=== PATIENT | female | born 1960 | race American Indian/Alaskan Native ===

== ENCOUNTER 2018-02-09 19:25 | Emergency (ER) | payer MEDICARE, OTHER ==
[~2018-02-09] VITALS: Ht 162.6 cm; Wt 99.8 kg
--- OUTSIDE RECORDS SUMMARY | ~2018-02-09 | XMS | Clinical Summary ---
Demographics + + + | Address | [address] | | | [place] [address] | + + + | Home Phone | | + + + | Preferred Language | Unknown | + + + | Marital Status | | + + + | Cheondoism Affiliation | Unknown | + + + | Race | Unknown | + + + | Ethnic Group | Unknown | + + + Author + + + | Author | [facility] | | | and [place] | + + + | Organization | [facility] | | | and [place] | + + + | Address | Unknown | + + + | Phone | Unavailable | + + + Support + + + + + | Name | Relationship | Address | Phone | + + + + + | Yue Fischer | ECON | [address] | | | | | [place], [place] | | | | | [address] | | + + + + + | Greta Herrera | ECON | [place], [place] | | | | | [address] | | + + + + + Care Team Providers + +------+ + | Care Aquaculture Program Director Name | Role | Phone | + +------+ + | Clay Ly DO | PP | | + +------+ + Allergies + + + + + + | Active Allergy | Reactions | Severity | Noted | Comments | | | | | Date | | + + + + + + | Uncoded | | | 12/22/19 | Metal | | Nonscreenable | | | 14 | | | Allergen | | | | | + + + + + + | Vancomycin | | | 03/25/20 | Was life flighted | | | | | 12 | after taking this | + + + + + + Current Medications + + +--------+---------+------+------+-------+ | Prescription | Sig. | Disp. | Refills | Star | End | Statu | | | | | | t | Date | s | | | | | | Date | | | + + +--------+---------+------+------+-------+ | | Inhale 2 puffs into | | | | | Activ | | mometasone-formotero | the lungs as needed. | | | | | e | | l (DULERA) 100-5 | | | | | | | | mcg/puff inhaler | | | | | | | + + +--------+---------+------+------+-------+ | | Take 2 tablets by | 100 | 0 | 10/1 | | Activ | | HYDROcodone-acetamin | mouth every 6 hours | tablet | | 2/20 | | e | | ophen (NORCO) 5-325 | as needed. | | | 15 | | | | mg per | | | | | | | | tabletIndications: | | | | | | | | Burkitt's lymphoma | | | | | | | | (HCC) | | | | | | | + + +--------+---------+------+------+-------+ | ondansetron | Take 1 tablet by | 15 | 0 | 02/2 | | Activ | | (ZOFRAN ODT) 4 mg | mouth every 6 hours | tablet | | 3/20 | | e | | disintegrating | as needed for | | | 16 | | | | tablet | Nausea. | | | | | | + + +--------+---------+------+------+-------+ Active Problems + + + | Problem | Noted Date | + + + | Neoplasm related pain (acute) (chronic) | 03/15/2014 | + + + + + | Overview: Ongoing discomfort related to cancer and cancer | | treatmentICD-10 Record update Last Assessment & Plan: Refilled | | hydrocodone continue as needed | + + + + + | GERD (gastroesophageal reflux disease) | 03/15/2014 | + + + + + | Overview: Gastroesophageal reflux disease likely related to | | medical obesity Last Assessment & Plan: Continue omeprazole | + + + + + | Chronic diarrhea | 03/15/2014 | + + + + + | Overview: Chronic diarrhea since diagnosis of Burkitt's | | lymphoma Last Assessment & Plan: Symptoms have become worse. | | Refill on Lomotil. Refer to Dr. Aranda for colonoscopy to exclude | | a gastrointestinal recurrence of Burkitt's lymphoma | + + + + + | DYSFUNCTION OF EUSTACHIAN TUBE | 03/07/2012 | + + + | SENSORINEURAL HEARING LOSS BILATERAL | 03/07/2012 | + + + | Burkitt's lymphoma (HCC) | | + + + + + | Overview: Burkitt's Lymphoma, August 2011 | | Last Assessment & Plan: No signs or symptoms of recurrence | | Continue with observation | | Return to clinic in 6 months for clinical and laboratory followup | + + + +---+ | Nonischemic/ chemotherapy induced cardiomyopathy | | + +---+ + + | Overview: Echo 03/08/12, LVEF 50%Normal SPECT MPI 03/18/12, | | LVEF 50% Last Assessment & Plan: No signs or symptoms of | | worsening of congestive heart failure, potentially treatment let | | relatedContinue lisinopril. | + + Resolved Problems + + + + | Problem | Noted | Resolved | | | Date | Date | + + + + | Chest pain | 03/25/20 | | | | 12 | 4 | + + + + + + | Overview: Nuclear stress test 03/17/12, LVEF 50% | + + Immunizations + + + + | Name | Dates Previously Given | Next Due | + + + + | PNEUMOCOCCAL | 11/01/2010 | | | POLYSACCHARIDE | | | | 23-VALENT (PPSV23) | | | + + + + Family History + + +------+ + | Medical History | Relation | Name | Comments | + + +------+ + | Other (see comment) | Brother | | x3 with heart problems | + + +------+ + | Other (see comment) | Father | | age 71 AMI | + + +------+ + | Other (see comment) | Mother | | Alive age 83 some health problems | + + +------+ + | Other (see comment) | Sister | | with heart problem | + + +------+ + + +------+ + + | Relation | Name | Status | Comments | + +------+ + + | Brother | | Alive | | + +------+ + + | Brother | | Alive | | + +------+ + + | Brother | | Alive | | + +------+ + + | Brother | | | | + +------+ + + | Father | | | | | | | (Age | | | | | 71) | | + +------+ + + | Mother | | | some health problems | + +------+ + + | Sister | | | | + +------+ + + | Sister | | Alive | | + +------+ + + | Sister | | Alive | | + +------+ + + | Sister | | Alive | | + +------+ + + Social History + +-------+ +--------+ + | Tobacco Use | Types | Packs/Day | Years | Date | | | | | Used | | + +-------+ +--------+ + | Former Smoker | | | | Quit: 10/01/2011 | + +-------+ +--------+ + + +---+---+---+ | Smokeless Tobacco: | | | | | Never Used | | | | + +---+---+---+ + + | Tobacco Cessation: Ready to Quit: No; Counseling Given: Yes | + + + + +---------+ + | Alcohol Use | Drinks/We | oz/Week | Comments | | | ek | | | + + +---------+ + | No | | | | + + +---------+ + + + + | Sex Assigned at | Date Recorded | | | | + + + | Not on file | | + + + Last Filed Vital Signs + + + + | Vital Sign | Reading | Time Taken | + + + + | Blood Pressure | 113/73 | 12/24/20157 PST | + + + + | Pulse | 105 | 12/24/201548 PST | + + + + | Temperature | 38.4 C (101.1 F) | 12/24/2015422 PST | + + + + | Respiratory Rate | 20 | 12/24/2015647 PST | + + + + | Oxygen Saturation | 96% | 12/24/2015647 PST | + + + + | Inhaled Oxygen | - | - | | Concentration | | | + + + + | Weight | 90.7 kg (200 lb) | 12/24/2015422 PST | + + + + | Height | 162.6 cm (5' 4.02") | 12/24/2015422 PST | + + + + | Body Mass Index | 34.31 | 12/24/2015 0423 PST | + + + + Plan of Treatment + + + + + | Health Maintenance | Due Date | Last Done | Comments | + + + + + | Hepatitis C | | | | | Screening | 0 | | | + + + + + | Vaccine: | | | | | Dtap/Tdap/Td (1 - | 9 | | | | Tdap) | | | | + + + + + | CERVICAL CANCER | | | | | SCREENING (PAP EVERY | 1 | | | | 3 YEARS 21-64 ) | | | | + + + + + | BREAST CANCER | | | | | SCREENING (MAMM Q2 | 0 | | | | YEARS 50-74) | | | | + + + + + | COLON CANCER | | | | | SCREENING | 0 | | | | (COLONOSCOPY EVERY | | | | | 10 YEARS 50-75) | | | | + + + + + | Vaccine: | | 11/01/2010 | | | Pneumococcal 19-64 | 2 | | | | Highest Risk (2 of 3 | | | | | - PCV13) | | | | + + + + + | Vaccine: Influenza | | | | | (Season Ended) | 8 | | | + + + + + Results Not on filefrom Last 3 Months Insurance + +--------+ +--------+ +---------+ | Payer | Benefi | Subscriber | Type | Phone | Address | | | t Plan | ID | | | | | | / | | | | | | | Group | | | | | + +--------+ +--------+ +---------+ | MEDICARE | MEDICA | xxxxxxxxxx | Medica | [phone] | | | RE | | re | [phone] | | | | PART A | | | | | | | AND B | | | | | + +--------+ +--------+ +---------+ | [employer] | IHS | xxxxxxxxx | Indemn | | | | SERVICE | YELLOW | | ity | | | | | HAWK | | | | | + +--------+ +--------+ +---------+ + +--------+ +--------+ + + | Guarantor Name | Accoun | Relation to | Date | Phone | Billing Address | | | t Type | Patient | of | | | | | | | | | | + +--------+ +--------+ + + | FRIDA YOUNG | Person | Self [birth year] | Home: | [address] | | | al/Nik | | 1961 | [phone] | [place] [address] | | | [place] | | | [phone] | | + +--------+ +--------+ + +
--- OUTSIDE RECORDS SUMMARY | ~2018-02-09 | XMS | Clinical Summary ---
Demographics + + + | Address | [address] | | | [place] [address] | + + + | Home Phone | | + + + | Preferred Language | Unknown | + + + | Marital Status | | + + + | Yazdanism Affiliation | Unknown | + + + | Race | Unknown | + + + | Ethnic Group | Unknown | + + + Author + + + | Author | [facility] | | | and [place]ann[place] | + + + | Organization | [facility] | | | and [place] | [...] [place], [place] | | | | | [address] | | + + + + + | Greta Herrera | ECON | [place], [place] | | | | | [address] | | + + + + + Care Team Providers + +------+ + | Care Manager Of Sales Name | Role | Phone | + [...] | | + +--------+ +--------+ +---------+ | [employer] | IHS | [phone] | Indemn [...] | 1961 | [phone] | [place] [address] | | | [place] | | | [phone] | | + +--------+ +--------+ + +
--- OUTSIDE RECORDS SUMMARY | ~2018-02-09 | XMS | Clinical Summary ---
Demographics + + + | Address | [address] | | | [place] [address] | + + + | Home Phone [...] Author + + + | Author | [facility] | + + + | Organization | [facility] | + + + | Address | Unknown | + + + | Phone | Unavailable | + + + Support + + + + + | Name | Relationship | Address | Phone | + + + + + | RUPAL ALFORD | ECON | [address] | | | | | [place] | | | | | [address] | | + + + + + | Greta Herrera | ECON | Unknown | | + + + + + Care Team Providers + +------+ + | Care House Parent Name | Role | Phone | + +------+ + | Becky Jennings | PP | Unavailable | + +------+ + Source Comments [facility] and [facility] Allergies No Known Allergies Current Medications + + + +---------+------+------+-------+ | Prescription | Sig. | Disp. | Refills | Star | End | Statu | | | | | | t | Date | s | | | | | | Date | | | + + + +---------+------+------+-------+ | ergocalciferol | Take 50,000 Units by | | | | | Activ | | (VITAMIN [...] | Take 1 Packet by | | | 02/0 | | Activ | | [...] | Take 1-2 Tabs by | | | 02/0 | | Activ | | [...] | mouth every four | | | /20 | | e | | TabletIndications: | hours as needed for | | | 12 | | | | Burkitt's lymphoma | nausea/vomiting. Max | | | | | | | ([facility]) | dose: 40 mg/day | | | [...] | three times daily | | | 20 | | e | | | before [...] by | 30 Tab | 3 | /2 | | Activ | | Oral | mouth once daily. | | | 20 | | e | | TabletIndications: | Dose decreased due | | | 12 | | | | Burkitt's lymphoma | to kidney | | | | | | | (HCC) | dysfunction. | | | | | | + + + +---------+------+------+-------+ Active Problems + + + | Problem | Noted Date | + + + | Burkitt's lymphoma (HCC) | 11/13/2011 | + + + Resolved [...] Pressure | 130/81 | 02/21/2012 3:36 PM PDT | + + + + | Pulse | 90 | 02/21/2012 3:36 PM PDT | + + + + | Temperature | 36.6 C (97.8 F) | 02/21/2012 3:36 PM PDT | + + + + | Respiratory Rate | 16 | 02/21/2012 3:36 PM PDT | + + + + | Oxygen Saturation | 96% | 02/21/2012 3:36 PM PDT | + + + + | Inhaled Oxygen | - | - | | Concentration | | | + + + + | Weight | 85.6 kg (188 lb 11.2 | 02/21/2012 4:02 AM PDT | | | oz) | | + + + + | Height | 162 cm (5' 3.78") | 02/09/2012 6:57 PM PDT | + + + + | Body Mass Index | 32.61 | 02/21/2012 4:02 AM PDT | + + + + Plan of Treatment + + + + + | Health Maintenance | Due Date | Last Done | Comments | + + + + + | INFLUENZA VACCINE | | | | | (FLU SHOT) | 8 | | | + + + + + Results Not on filefrom Last 3 Months
--- OUTSIDE RECORDS SUMMARY | ~2018-02-09 | XMS | Clinical Summary ---
Demographics + + + | Address | [address] | | | [place] [address] | + + + | Home Phone | | + + + | Preferred Language | Unknown | + + + | Marital Status | Single | + + + | Congregational Affiliation | NON | + + + | Race | or | + + + | Ethnic Group | Not or | + + + Author + + + | Author | [facility] | + + + | Organization | [facility] | + [...] [place] | | | | | [address] | | + + + + + | Greta Herrera | ECON | Unknown | | + + + + + Care Team Providers + +------+ + | Care Hand Model Name | Role | Phone | + +------+ + | Becky Jennings | PP | Unavailable | + +------+ + Source Comments [facility] and [facility] Allergies No Known Allergies Current Medications + [...] | | | | | | | ([facility]) | dose: 40 mg/day | | [...]
[~2018-02-09 19:25] MED LIST: ALBUTEROL SULF8.5 GM INH; ALBUTEROL2.5 MG/3 M INH; AMOX TR-K CLV1 EAC1 PO; COMBIVENT RESPIM4 GM INH; FISH OIL 1,0001 EAC1 PO; FOLIC ACID1 MG PO; HYDROCODON-ACE1 EAC3 PO; IBUPROFEN800 MG PO; LISINOPRIL10 MG PO; LOMOTIL TABLET1 EACH PO; METOPROLOL SUCC25 MG PO; MULTI VITAMIN1 EACH PO; OMEPRAZOLE20 MG PO; PREDNISONE10 MG PO; PREDNISONE20 MG PO; VITAMIN D5000 UNIT PO; ZITHROMAX250 MG PO
== END 2018-02-09 20:17 | disposition home or self-care (01) ==
LOC: ED 19:25
PROC: 0HQFXZZ Repair Right Hand Skin, External Approach (ICD-10-PCS; principal; 2018-02-09)
DX: S61.216A Laceration without foreign body of right little finger without damage to nail, initial encounter (principal); F17.200 Nicotine dependence, unspecified, uncomplicated; W25.XXXA Contact with sharp glass, initial encounter
CPT/HCPCS: 12001; 99282

== ENCOUNTER 2019-09-11 15:57 | Emergency (ER) | payer MEDICARE, OTHER ==
[~2019-09-11] VITALS: Ht 162.6 cm; Wt 90.3 kg
--- OUTSIDE RECORDS SUMMARY | ~2019-09-11 | XMS | Encounter Summary ---
Demographics + + + | Address | [address] | | | [place] [address] | + + + | Home Phone | | + + + | Preferred Language | Unknown | + + + | Marital Status | | + + + | Spiritism Affiliation | Unknown | + + + | Race | Unknown | + + + | Ethnic Group | Unknown | + + + Author + + + | Author | [facility] | | | and Hermannana | + + + | Organization | [facility] | | | and Hermannana | + + + | Address | Unknown | + + + | Phone | Unavailable | + + + Support + + + + + | Name | Relationship | Address | Phone | + + + + + | Yue Fischer | JESE | [address] | | | | | [place], [place] | | | | | [address] | | + + + + + | Greta Broncheau | ECON | [place], [place] | | | | | [address] | | + + + + + Care Team Providers + +------+ + | Care Mink Slicer Name | Role | Phone | + +------+ + PCP | Unavailable | + +------+ + Encounter Details +--------+ + + + + | Date | Type | Department | Care Team | Description | +--------+ + + + + | 01/27/ | Hospital | [facility] | [place], | | | 2011 - | Encounter | [facility] | Antonio Infante MD [address] | | | | [place] [address] | [address] | | | 01/29/ | | [place], [place] | [place] [address] | | | 2011 | | [address] | [phone] | | | | | [phone] | | | +--------+ + + + + Social History + +-------+ +--------+------+ | Tobacco Use | Types | Packs/Day | Years | Date | | | | | Used | | + +-------+ +--------+------+ | Never Assessed | | | | | + +-------+ +--------+------+ + + + | Sex Assigned at | Date Recorded | | | | + + + | Not on file | | + + + + + + + | Job Start Date | Occupation | Industry | + + + + | Not on file | Not on file | Not on file | + + + + + + + + | Travel History | Travel Start | Travel End | + + + + + + | No recent travel history available. | + + documented as of this encounter Progress Antonio Collier MD - 01/03/2012 2:20 AM PSTPROGRESS NOTE: January 25, 2012 PATIENT IDENTIFICATION: Frida Christian IDENTIFYING STATEMENT: Frida Christian is a 51-year-old woman from [place], [place], with Burkitt's lymphoma. ACTIVE DIAGNOSES: 1. Presentation in August 2001, with intractable searing abdominal pain. Symptoms progre ssed and on October 05, 2011, she underwent advanced imaging that demonstrated diffuse roverto gnant lymphadenopathy throughout the retroperitoneum. 2. Laparoscopic lymph node biopsy on November 10, 2011, at [facility], demonstrated a high grade B cell lymphoma, consistent with Burkitt's lymphoma, positive for BCL6, CD10, CD19, CD20, C D22, and kappa light chains. 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 3. Initiation of Rituxan/Hyper-CVAD chemotherapy at [facility] on November 15, 2011. CHIEF COMPLAINT: Frida Christian returned to the [facility] on January 25, 2012, for follow up, cycle #2B, d ay # 15, of Rituxan/Hyper-CVAD chemotherapy. REVIEW OF SYSTEMS: CONSTITUTIONAL: Positive for fatigue. Denies high fever, shaking chills, anorexia, naus ea, vomiting or weight loss or night sweats. ENMT: Denies odynophagia, dysphagia or tinnitus. CARDIOVASCULAR: Denies shortness of breath, dyspnea on exertion, chest pain, palpitations or orthopnea. RESPIRATORY: Denies cough, hemoptysis or sputum production. GASTROINTESTIONAL: Denies a bdominal pain, constipation, diarrhea, melena or bright red blood per rectum. GENITOURINARY: Denies hematuria or dysuria. MUSCULOSKELETAL: Denies joint pain or tenderness. NEUROLOGIC: Positive for neuropathy with numbness in the fingertips and toes. ENDOCRINE : Denies peripheral edema or heat/cold intolerance. HEMATOLOGIC: Positive for recurrent nose bleeding. PAST MEDICAL HISTORY, PSYCHOSOCIAL HISTORY, FAMILY HISTORY, HABITS: Please see the full d ictated note of December 07, 2011, which is reviewed and unchanged. ROUTINE MEDICATIONS: Acyclovir 400 mg orally daily Marinol 5 mg orally three times daily Diflucan 200 mg orally twice daily Levaquin 500 mg orally daily Ativan 1 mg as needed for nausea/anxiety/restlessness Nystatin topical powder, 30 grams topically twice daily Prilosec 20 mg orally daily OxyContin 40 mg orally twice daily MiraLax 17 grams orally as needed Compazine 5-10 mg as needed for nausea or vomiting Senna 1-2 tablets orally as needed for constipation Septra DS one tablet orally twice daily ALLERGIES:NKDA. PHYSICAL EXAMINATION: VITAL SIGNS: Blood pressure 114/73, pulse 90, temperature 36.3 C, saturation of oxygen is 96% on room air. EYES: Conjunctivae clear. Sclerae anicteric. EMNT: Positive for mucosal petechiae. Oropharynx free of lesions. Mucous membranes mois t. CARDIOVASCULAR: Regular rate and rhythm. Normal S1, S2, without rubs, gallops or murmurs. LUNGS: Good air movement bilaterally. No rhonchi, wheeze or rales. ABDOMEN: Soft, nontender and nondistended with normoactive bowel sounds. No hepatomegaly, no splenomegaly, no palpable masses. No ascites. LYMPH/HEM/IMMUNO: No cervical, supraclavicular or inguinal lymphadenopathy. MUSCULOSKELETAL: No joint tenderness or swelling. SKIN: Notable for petechiae covering the distal lower extremities. EXTREMITIES: Right upper extremity PICC line was extracted and the exit site is without t enderness or erythema. CHEST: Right anterior chest Port-A-Cath is without tenderness or erythema. NEUROLOGIC: Awake and alert. Face is symmetric. Voice is articulate. Station and gait a re within normal limits. LABORATORY DATA: Hemoglobin 7.3, hematocrit 21.1%, white count 200, platelet count 1000. Comprehensive metabolic panel, however, is entirely within normal limits. ASSESSMENT:Anemia, thrombocytopenia and neutropenia following high-dose methotrexate and c ytarabine chemotherapy for Burkitt's lymphoma. PLAN:She will receive blood and platelets today. She will return to the Cancer Center in three days for a repeat blood count and additional blood products if necessary. PROCEDURE: She received 650 mg of oral Tylenol, 25 mg of oral Benadryl, 2 units of filtered, irradiat ed CMV-negative PRBCs and one single donor apheresis unit of single donor platelets, all without adverse effects. CC: JING Luis ([facility]) Dylan Wheatley M.D. ([facility]) <Electronically Signed by Antonio Renee MD> 01/29/12 1025 Antonio Renee MD - 01/03/2012 2:20 AM PSTPROGRESS NOTE: 01/04/2012 IDENTIFYING STATEMENT: Frida Christian is a 51-year-old woman from [place], [place] with Bu rkitt's lymphoma. ACTIVE DIAGNOSES: 1. Presentation in August 2011 with intractable abdominal pain described as "searing." Symptoms progressed. On October 05, 2011, she underwent advanced imaging demonstrating diffus e malignant lymphadenopathy throughout the retroperitoneum. 2. Laparoscopic lymph node biopsy on November 10, 2011 at [facility], demonstrating a high-grade B cell lymphoma consistent with Burkitt's lymphoma. Positive for bcl-6, CD10, CD19, CD20, C D22, and kappa light chains. 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 Ki67 fraction was greater than 90%. 3. Initiation of Rituxan/hyper-CVAD chemotherapy at [facility] on November 15, 2011. CHIEF COMPLAINT: Frida Christian returned to the Cancer Center on January 04, 2012 for follow- up at cycle no. 2A, day no. 12 of Rituxan/hyper-CVAD chemotherapy. REVIEW OF SYSTEMS: CONSTITUTIONAL: Positive for fatigue and anorexia. Denies nausea, vomiting, or weight lo ss. Denies high fever, chills, or night sweats. EAR, NOSE, MOUTH, THROAT: Denies odynophagia, dysphagia, or tinnitus. CARDIOVASCULAR: De nies shortness of breath, dyspnea on exertion, chest pain, palpitations, or orthopnea. RESPIRATORY: Denies cough, hemoptysis, or sputum production. GASTROINTESTINAL: Denies ab dominal pain, constipation, diarrhea, melena, or bright red blood per rectum. GENITOURINARY: Denies hematuria or dysuria. MUSCULOSKELETAL: Denies joint pain and tenderness. NEUROLOGIC: She has chronic stable back pain which she rates at 7 out of 10. She denies lower extremity weakness or saddle numbness. ENDOCRINE: Denies peripheral edema or heat/cold intolerance. HEMATOLOGIC: Denies spontan eous bruising or bleeding. PAST MEDICAL HISTORY, FAMILY HISTORY, SOCIAL HISTORY, HABITS: Please see the full dictate d note dated December 07, 2011, which is reviewed and unchanged. ROUTINE MEDICATIONS: Acyclovir 400 mg orally daily Marinol 5 mg orally three times daily Diflucan 200 mg orally twice daily Levaquin 500 mg orally daily Ativan 1 mg as needed for nausea/anxiety/restlessness Nystatin topical powder, 30 grams topically twice daily Prilosec 20 mg orally daily OxyContin 40 mg orally twice daily MiraLax 17 grams orally as needed Compazine 5-10 mg as needed for nausea or vomiting Senna 1-2 tablets orally as needed for constipation Septra DS one tablet orally twice daily ALLERGIES:NKDA. PHYSICAL EXAMINATION: Blood pressure is 123/74, pulse 94, temperature 36.7 C, saturation of oxygen 96% on room air. Weight is 81.7 kg. EYES: Conjunctivae clear. Sclerae anicteric. ENMT: Oropharynx free of lesions, mucous membranes moist. CARDIOVASCULAR: Regular rate and rhythm. Normal S1 and S2 without murmur, gallop, or rub . LUNGS: Good air movement bilaterally. No rhonchi, wheeze, or rales. SKIN: No petechiae, ecchymoses, or rash. EXTREMITIES: Right upper extremity PICC line is examined in detail. The dressing is senior clinical research scientist nically wet and adhesive has dissolved. NEUROLOGIC: Alert and oriented times three. Face symmetric. Voice articulate. Station and gait within normal limits. STUDIES: Hemoglobin is 8.7, hematocrit 25.5%, platelet count 119,000, white count 2000, a bsolute neutrophil count 700. Comprehensive metabolic panel is entirely within normal limi ts. ASSESSMENT: Burkitt's lymphoma. PLAN: Frida will return to the Cancer Center on January 14, 2012, where she will undergo intrathecal administration of cytarabine and then be admitted for cycle no. 2B of her chemo therapy. I had a long discussion with Frida and her caregivers regarding her PICC line, which can not be kept dry due to Frida's noncompliance. Therefore, we will proceed with a consulta tion for placement of a Port-A-Cath for stable IV access for the rest of her infusional sofy motherapy. Once a Port-A-Cath has been successfully placed, her right upper extremity PICC line will be removed. CC: Dr. Dylan Martinez, [facility] Becky Jennings, JING, [facility] <Electronically Signed by Antonio Renee MD> 01/05/12 1544 documented in this encounter Plan of Treatment Not on filedocumented as of this encounter Procedures + +--------+ + + + | Procedure Name | Priori | Date/Time | Associated Diagnosis | Comments | | | ty | | | | + +--------+ + + + | CBC W/AUTO | Routin | 01/28/2012 | | Results for this | | DIFFERENTIAL | e | 9:37 AM | | procedure are in the | | | | PDT | | results section. | + +--------+ + + + | LACTATE | Routin | 01/28/2012 | | Results for this | | DEHYDROGENASE | e | 9:37 AM | | procedure are in the | | | | PDT | | results section. | + +--------+ + + + | COMPREHENSIVE | Routin | 01/28/2012 | | Results for this | | METABOLIC PANEL | e | 9:37 AM | | procedure are in the | | | | PDT | | results section. | + +--------+ + + + | PLATELET PHERESIS | Routin | 01/28/2012 | | Results for this | | | e | 7:17 AM | | procedure are in the | | | | PDT | | results section. | + +--------+ + + + | CBC WITH | Routin | 01/25/2012 | | Results for this | | DIFFERENTIAL | e | 9:53 AM | | procedure are in the | | | | PDT | | results section. | + +--------+ + + + | ABO RH | Routin | 01/25/2012 | | Results for this | | | e | 9:46 AM | | procedure are in the | | | | PDT | | results section. | + +--------+ + + + | ABO RH | Routin | 01/25/2012 | | | | | e | 9:46 AM | | | | | | PDT | | | + +--------+ + + + | ANTIBODY SCREEN | Routin | 01/25/2012 | | Results for this | | | e | 9:46 AM | | procedure are in the | | | | PDT | | results section. | + +--------+ + + + | LACTATE | Routin | 01/25/2012 | | Results for this | | DEHYDROGENASE | e | 9:46 AM | | procedure are in the | | | | PDT | | results section. | + +--------+ + + + | COMPREHENSIVE | Routin | 01/25/2012 | | Results for this | | METABOLIC PANEL | e | 9:46 AM | | procedure are in the | | | | PDT | | results section. | + +--------+ + + + | PLATELET PHERESIS | Routin | 01/25/2012 | | Results for this | | | e | 7:25 AM | | procedure are in the | | | | PDT | | results section. | + +--------+ + + + | CROSSMATCH (IN ML) | Routin | 01/25/2012 | | Results for this | | | e | 7:25 AM | | procedure are in the | | | | PDT | | results section. | + +--------+ + + + | CROSSMATCH (IN ML) | Routin | 01/25/2012 | | Results for this | | | e | 7:25 AM | | procedure are in the | | | | PDT | | results section. | + +--------+ + + + | CBC WITH | Routin | 01/14/2012 | | Results for this | | DIFFERENTIAL | e | 10:00 AM | | procedure are in the | | | | PDT | | results section. | + +--------+ + + + | LACTATE | Routin | 01/14/2012 | | Results for this | | DEHYDROGENASE | e | 10:00 AM | | procedure are in the | | | | PDT | | results section. | + +--------+ + + + | COMPREHENSIVE | Routin | 01/14/2012 | | Results for this | | METABOLIC PANEL | e | 10:00 AM | | procedure are in the | | | | PDT | | results section. | + +--------+ + + + | CBC WITH | Routin | 01/04/2012 | | Results for this | | DIFFERENTIAL | e | 1:19 PM | | procedure are in the | | | | PST | | results section. | + +--------+ + + + | LACTATE | Routin | 01/04/2012 | | Results for this | | DEHYDROGENASE | e | 1:19 PM | | procedure are in the | | | | PST | | results section. | + +--------+ + + + | COMPREHENSIVE | Routin | 01/04/2012 | | Results for this | | METABOLIC PANEL | e | 1:19 PM | | procedure are in the | | | | PST | | results section. | + +--------+ + + + documented in this encounter Results Comprehensive Metabolic Panel (01/28/2012 9:37 AM PDT) + + + + + + | Component | Value | Ref Range | Performed | Pathologist | | | | | At | Signature | + + + + + + | Glucose | 164 (H) | 70 - 109 mg/dL | [facility] | | | | | | [facility] | | | | | | MEDICAL | | | | | | [facility] - | | | | | | LABORATORY | | + + + + + + | Calcium | 8.8 | 8.3 - 10.5 | [facility] | | | | | mg/dL | [facility] | | | | | | MEDICAL | | | | | | CENTER - | | | | | | LABORATORY | | + + + + + + | Alkaline | 103 | 40 - 110 IU/L | [facility] | | | Phosphatase | | | [facility] | | | | | | MEDICAL | | | | | | CENTER - | | | | | | LABORATORY | | + + + + + + | AST | 13 | 10 - 42 IU/L | [facility] | | | | | | [facility] | | | | | | MEDICAL | | | | | | CENTER - | | | | | | LABORATORY | | + + + + + + | ALT | 16 | 6 - 45 IU/L | [facility] | | | | | | [facility] | | | | | | MEDICAL | | | | | | CENTER - | | | | | | LABORATORY | | + + + + + + | Bilirubin | 1.0 | 0.2 - 1.0 mg/dL | [facility] | | | Total | | | [facility] | | | | | | MEDICAL | | | | | | CENTER - | | | | | | LABORATORY | | + + + + + + | Total | 6.8 | 6.0 - 7.8 gm/dL | [facility] | | | Protein | | | [facility] | | | | | | MEDICAL | | | | | | CENTER - | | | | | | LABORATORY | | + + + + + + | Albumin | 3.6 | 3.2 - 5.0 gm/dL | [facility] | | | | | | [facility] | | | | | | MEDICAL | | | | | | CENTER - | | | | | | LABORATORY | | + + + + + + | BUN | 9 | 7 - 18 mg/dL | [facility] | | | | | [facility] | | | [facility] | [facility] | | | | | | C[facility] - | | | | | | LABORATORY | | + + + + + + | Creatinine | 0.57 (L) | 0.60 - 1.30 | [facility] | | | | | mg/dL | [facility] | | | | | | MEDICAL | | | | | | CENTER - | | | | | | LABORATORY | | + + + + + + | Estimated | >60Comment: For | >60 mL/min/A | [facility] | | | GFR | -Americans, | | [facility] | | | | please multiply the | | MEDICAL | | | | result by 1.210 | | CENTER - | | | | This is an estimated | | LABORATORY | | | | GFR and is based on a | | | | | | standard adult | | | | | | body mass (A=1.73m2) and | | | | | | serum creatinine | | | | + + + + + + | BUN/Creatin | 15.8 | 12 - 20 | [facility] | | | ine Ratio | | | [facility] | | | | | | MEDICAL | | | | | | CENTER - | | | | | | LABORATORY | | + + + + + + | Na | 131 (L) | 136 - 149 mEq/L | [facility] | | | | | | [facility] | | | | | | MEDICAL | | | | | | CENTER - | | | | | | LABORATORY | | + + + + + + | K | 3.5 | 3.5 - 5.1 mEq/l | [facility] | | | | | | [facility] | | | | | | MEDICAL | | | | | | CENTER - | | | | | | LABORATORY | | + + + + + + | Cl | 97 (L) | 98 - 109 mEq/l | [facility] | | | | | | [facility] | | | | | | MEDICAL | | | | | | CENTER - | | | | | | LABORATORY | | + + + + + + | CO2 | 24 | 24 - 31 mEq/L | [facility] | | | | | | [facility] | | | | | | MEDICAL | | | | | | CENTER - | | | | | | LABORATORY | | + + + + + + | Anion Gap | 13.5 | 6.0 - 17.0 | [facility] | | | | | | [facility] | | | | | | MEDICAL | | | | | | CENTER - | | | | | | LABORATORY | | + + + + + + + + | Specimen | + + | | + + + + + + + | Performing | Address | City/State/Zipcode | Phone Number | | Organization | | | | + + + + + | [facility] | [address] | [place] | [phone] | | [facility] | | [address] | | | - LABORATORY | | | | + + + + + | [facility] | [address] | [place], [place] | | | [facility] | | [address] | | | - LABORATORY | | | | + + + + + Lactate Dehydrogenase (01/28/2012 9:37 AM PDT) + +-------+ + + + | Component | Value | Ref Range | Performed | Pathologist | | | | | At | Signature | + +-------+ + + + | LDH TOTAL | 119 | 91 - 180 IU/L | [facility] | | | | | | [facility] | | | | | | MEDICAL | | | | | | CENTER - | | | | | | LABORATORY | | + +-------+ + + + + + | Specimen | + + | | + + + + + + + | Performing | Address | City/State/Zipcode | Phone Number | | Organization | | | | + + + + + | [facility] | [address] | [place] | [phone] | | [facility] | | [address] | | | - LABORATORY | | | | + + + + + | [facility] | [address] | [place] | | | [facility] | | [address] | | | - LABORATORY | | | | + + + + + CBC w/ Auto Differential (01/28/2012 9:37 AM PDT) + + + + + + | Component | Value | Ref Range | Performed | Pathologist | | | | | At | Signature | + + + + + + | WBC | 0.3 (LL)Comment: @VALUE | 4.0 - 11.0 K/uL | [facility] | | | | CONSISTENT WITH PREVIOUS | | [facility] | | | | RESULTS | | MEDICAL | | | | | | CENTER - | | | | | | LABORATORY | | + + + + + + | RBC | 2.78 (L) | 3.70 - 5.20 | [facility] | | | | | M/uL | [facility] | | | | | | MEDICAL | | | | | | CENTER - | | | | | | LABORATORY | | + + + + + + | Hemoglobin | 8.5 (L) | 11.5 - 16.0 | [facility] | | | | | gm/dL | [facility] | | | | | | MEDICAL | | | | | | CENTER - | | | | | | LABORATORY | | + + + + + + | Hematocrit | 25.0 (L) | 34.0 - 47.0 % | [facility] | | | | | | [facility] | | | | | | MEDICAL | | | | | | CENTER - | | | | | | LABORATORY | | + + + + + + | MCV | 89.8 | 83.0 - 101.0 fL | [facility] | | | | | | [facility] | | | | | | MEDICAL | | | | | | CENTER - | | | | | | LABORATORY | | + + + + + + | MCH | 30.5 | 28.0 - 35.0 pg | [facility] | | | | | | [facility] | | | | | | MEDICAL | | | | | | CENTER - | | | | | | LABORATORY | | + + + + + + | MCHC | 34.0 | 32.0 - 36.0 | [facility] | | | | | g/dL | [facility] | | | | | | MEDICAL | | | | | | CENTER - | | | | | | LABORATORY | | + + + + + + | RDW-CV | 16.9 (H) | <15.0 % | [facility] | | | | | | [facility] | | | | | | MEDICAL | | | | | | CENTER - | | | | | | LABORATORY | | + + + + + + | Platelet | 8 (LL)Comment: | 140 - 440 K/uL | [facility] | | | Count | CRITICAL | | [facility] | | | | VALUE Time for | | MEDICAL | | | | CRITICAL 10 results to | | CENTER - | | | | Clinical Provider is 30 | | LABORATORY | | | | min. DO NOT | | | | | | DISCARD THIS REPORT * | | | | | | PLACE IN NURSING NOTES | | | | | | Nursing | | | | | | documentation will NOT | | | | | | be included on Summary | | | | | | Report RESULT | | | | | | CALLED TO GRETA FOREMAN | | | | | | 01/28/12 @0953 by CARRMA | | | | | | @ * READ BACK MUST BE | | | | | | OBTAINED * READ BACK | | | | | | PERFORMED? Y Nurses' | | | | | | patient: Y N if NO | | | | | | -handoff | | | | | | to: Date/time: | | | | | | Report by Nursing | | | | | | Staff to Clinical | | | | | | Provider who will | | | | | | act/intervene on this | | | | | | value: Nurse Calling | | | | | | Result: | | | | | | Date/Time: | | | | | | Provider or licensee | | | | | | called: | | | | | | | | | | | | Time Provider | | | | | | called/paged: | | | | | | Time spoke to | | | | | | Provider: | | | | | | Read Back performed: Y | | | | | | N Provider NOT | | | | | | called - Reason: | | | | | | | | | | | | | | | | | | | | | | | | | | | | | | | | | | | | . | | | | + + + + + + | Total | 25 | | [facility] | | | Counted | | | [facility] | | | | | | MEDICAL | | | | | | CENTER - | | | | | | LABORATORY | | + + + + + + | % Segmented | 4 (L) | 50 - 70 % | [facility] | | | | | | [facility] | | | Neutrophils | | | MEDICAL | | | | | | CENTER - | | | | | | LABORATORY | | + + + + + + | % | 92 (H) | 20 - 40 % | [facility] | | | Lymphocytes | | | [facility] | | | | | | MEDICAL | | | | | | CENTER - | | | | | | LABORATORY | | + + + + + + | % Variant | 4 | 0 - 5 % | [facility] | | | Lymphocytes | | | [facility] | | | | | | MEDICAL | | | | | | CENTER - | | | | | | LABORATORY | | + + + + + + | RBC | NORMAL | | [facility] | | | Morphology | | | [facility] | | | | | | MEDICAL | | | | | | CENTER - | | | | | | LABORATORY | | + + + + + + | Platelet | DECREASEDComment: --- | | [facility] | | | Estimate | 01/28/12 1042 --- | | [facility] | | | | Platelet Est. | | MEDICAL | | | | previously reported as: | | CENTER - | | | | INCREASED @ | | LABORATORY | | | | Edited by: Malgorzata Holley | | | | | | @ Reason: CLERICAL | | | | | | ERROR | | | | + + + + + + + + | Specimen | + + | | + + + + + + + | Performing | Address | City/State/Zipcode | Phone Number | | Organization | | | | + + + + + | [facility] | [address] | [place] | [phone] | | [facility] | | [address] | | | - LABORATORY | | | | + + + + + | [facility] | [address] | [place] | | | [facility] | | [address] | | | - LABORATORY | | | | + + + + + Product: Platelet Pheresis (01/28/2012 7:17 AM PDT) + + + + + + | Component | Value | Ref Range | Performed | Pathologist | | | | | At | Signature | + + + + + + | Product | PHERESIS | | [facility] | | | Code | PLATELETS-IRRADIATED | | [facility] | | | | | | MEDICAL | | | | | | CENTER - | | | | | | LABORATORY | | + + + + + + | UNIT # | [id number] | | [facility] | | | | | | [facility] | | | | | | MEDICAL | | | | | | CENTER - | | | | | | LABORATORY | | + + + + + + | UNIT ABO | O | | [facility] | | | | | | [facility] | | | | | | MEDICAL | | | | | | CENTER - | | | | | | LABORATORY | | + + + + + + | UNIT RH | POS | | [facility] | | | | | | [facility] | | | | | | MEDICAL | | | | | | CENTER - | | | | | | LABORATORY | | + + + + + + | Unit Status | TRANSFUSED | | [facility] | | | | | | [facility] | | | | | | MEDICAL | | | | | | CENTER - | | | | | | LABORATORY | | + + + + + + + + | Specimen | + + | | + + + + + + + | Performing | Address | City/State/Zipcode | Phone Number | | Organization | | | | + + + + + | [facility] | [address] | [place] | [phone] | | [facility] | | [address] | | | - LABORATORY | | | | + + + + + | [facility] | | | | | [facility] | | | | | - LABORATORY | | | | + + + + + CBC with Differential (01/25/2012 9:53 AM PDT) + + + + + + | Component | Value | Ref Range | Performed | Pathologist | | | | | At | Signature | + + + + + + | WBC | 0.2 (LL) | 4.0 - 11.0 K/uL | [facility] | | | | | | [facility] | | | | | | MEDICAL | | | | | | CENTER - | | | | | | LABORATORY | | + + + + + + | RBC | 2.39 (L) | 3.70 - 5.20 | [facility] | | | | | M/uL | [facility] | | | | | | MEDICAL | | | | | | CENTER - | | | | | | LABORATORY | | + + + + + + | Hemoglobin | 7.3 (LL)Comment: | 11.5 - 16.0 | [facility] | | | | | gm/dL | [facility] | | | | ALERT VALUE | | MEDICAL | | | | DO NOT DISCARD WRITTEN | | CENTER - | | | | DOCUMENTATION. PLACE IN | | LABORATORY | | | | NURSING NOTES Nursing | | | | | | documentation will NOT | | | | | | be included on Summary | | | | | | Report @TELEPHONE | | | | | | NOTIFICATION? Y 01/25/12 | | | | | | @1006 by FRIDA | | | | | | Clinical Provider | | | | | | notification at Nurses | | | | | | discretion Report | | | | | | by Nursing Staff to | | | | | | Clinical Provider who | | | | | | will act/intervene on | | | | | | this value: Nurse | | | | | | Calling Result: | | | | | | | | | | | | Date/Time: | | | | | | Provider or licensee | | | | | | called: | | | | | | | | | | | | Time Provider | | | | | | called/paged: | | | | | | Time spoke to | | | | | | Provider: | | | | + + + + + + | Hematocrit | 21.1 (L) | 34.0 - 47.0 % | [facility] | | | | | [facility] | | | | | | [facility] | | | | | | [facility] - | | | | | | LABORATORY | | + + + + + + | MCV | 88.3 | 83.0 - 101.0 fL | [facility] | | | | | | [facility] | | | | | | [facility] | | | | | | [facility] - | | | | | | LABORATORY | | + + + + + + | MCH | 30.7 | 28.0 - 35.0 pg | [facility] | | | | | | [facility] | | | | | | [facility] | | | | | | C[facility] - | | | | | | LABORATORY | | + + + + + + | MCHC | 34.7 | 32.0 - 36.0 | [facility] | | | | | g/dL | [facility] | | | | | | [facility] | | | | | | CENTER - | | | | | | LABORATORY | | + + + + + + | RDW-CV | 20.0 (H) | <15.0 % | [facility] | | | | | | [facility] | | | | | | [facility] | | | | | | C[facility] - | | | | | | LABORATORY | | + + + + + + | Platelet | <1 (LL)Comment: | 140 - 440 K/uL | [facility] | | | Count | | | [facility] | | | | CRITICAL VALUE | | MEDICAL | | | | Time for CRITICAL 10 | | CENTER - | | | | results to Clinical | | LABORATORY | | | | Provider is 30 min. | | | | | | DO NOT DISCARD | | | | | | THIS REPORT * PLACE IN | | | | | | NURSING NOTES | | | | | | Nursing documentation | | | | | | will NOT be included on | | | | | | Summary Report | | | | | | RESULT CALLED TO TIFFANY | | | | | | RODDY 01/25/12 @1005 by | | | | | | WESSMA @ * READ BACK | | | | | | MUST BE OBTAINED * | | | | | | READ BACK PERFORMED? Y | | | | | | Nurses' patient: Y N | | | | | | if NO -handoff | | | | | | to: Date/time: | | | | | | Report by Nursing | | | | | | Staff to Clinical | | | | | | Provider who will | | | | | | act/intervene on this | | | | | | value: Nurse Calling | | | | | | Result: | | | | | | Date/Time: | | | | | | Provider or licensee | | | | | | called: | | | | | | | | | | | | Time Provider | | | | | | called/paged: | | | | | | Time spoke to | | | | | | Provider: | | | | | | Read Back performed: Y | | | | | | N Provider NOT | | | | | | called - Reason: | | | | | | | | | | | | | | | | | | | | | | | | | | | | | | | | | | | | . VERIFIED BY REPEAT | | | | | | ANALYSIS ON ALTERNATE | | | | | | INSTRUMENT. RARE | | | | | | PLATLET SEEN ON SMEAR. | | | | | | | | | | + + + + + + | % | 0.9 (L) | 45 - 75 % | [facility] | | | Neutrophils | | | [facility] | | | | | | [facility] | | | | | | CENTER - | | | | | | LABORATORY | | + + + + + + | % | 92.6 (H) | 20 - 45 % | [facility] | | | Lymphocytes | | | [facility] | | | | | | MEDICAL | | | | | | CENTER - | | | | | | LABORATORY | | + + + + + + | % Monocytes | 2.1 (L) | 4 - 12 % | [facility] | | | | | | [facility] | | | | | | [facility]ICAL | | | | | | CENTER - | | | | | | LABORATORY | | + + + + + + | % | 4.4 | 0 - 5 % | [facility] | | | Eosinophils | | | [facility] | | | | | | MEDICAL | | | | | | CENTER - | | | | | | LABORATORY | | + + + + + + | % Basophils | 0.0 | 0 - 1 % | [facility] | | | | | | [facility] | | | | | | MEDICAL | | | | | | CENTER - | | | | | | LABORATORY | | + + + + + + | Absolute | 0.0 (L) | 1.5 - 6.6 K/uL | [facility] | | | Neutrophils | | | [facility] | | | | | | MEDICAL | | | | | | CENTER - | | | | | | LABORATORY | | + + + + + + | Absolute | 0.2 (L) | 0.6 - 3.2 K/uL | [facility] | | | Lymphocytes | | | [facility] | | | | | | MEDICAL | | | | | | CENTER - | | | | | | LABORATORY | | + + + + + + | Absolute | 0.0 | 0.0 - 1.0 K/uL | [facility] | | | Monocytes | | | [facility] | | | | | | MEDICAL | | | | | | CENTER - | | | | | | LABORATORY | | + + + + + + | Absolute | 0.0 | 0.0 - 0.4 K/uL | [facility] | | | Eosinophils | | | [facility] | | | | | | MEDICAL | | | | | | CENTER - | | | | | | LABORATORY | | + + + + + + | Absolute | 0.0 | 0.0 - 0.1 K/uL | [facility] | | | Basophils | | | [facility] | | | | | | MEDICAL | | | | | | CENTER - | | | | | | LABORATORY | | + + + + + + | FLAG | 1 | | [facility] | | | | Comment: | | [facility] | | | | Leukopenia | | MEDICAL | | | | Neutropenia % | | CENTER - | | | | Lymphocytosis % | | LABORATORY | | | | Thrombocytopenia | | | | + + + + + + | SUSPECTED | 1 (H) | | [facility] | | | PROBLEM IS: | Comment: | | [facility] | | | | Low Event # | | MEDICAL | | | | Verify Diff | | CENTER - | | | | | | LABORATORY | | + + + + + + + + | Specimen | + + | | + + + + + + + | Performing | Address | City/State/Zipcode | Phone Number | | Organization | | | | + + + + + | [facility] | [address] | [place] | [phone] | | [facility] | | [address] | | | - LABORATORY | | | | + + + + + | [facility] | [address] | [place] | | | [facility] | | [address] | | | - LABORATORY | | | | + + + + + ABO Rh (01/25/2012 9:46 AM PDT) + +-------+ + + + | Component | Value | Ref Range | Performed | Pathologist | | | | | At | Signature | + +-------+ + + + | ABO | AP | | [facility] | | | | | | [facility] | | | | | | MEDICAL | | | | | | CENTER - | | | | | | LABORATORY | | + +-------+ + + + + + | Specimen | + + | | + + + + + + + | Performing | Address | City/State/Zipcode | Phone Number | | Organization | | | | + + + + + | [facility] | [address] | [place], [place] | [phone] | | [facility] | | [address] | | | - LABORATORY | | | | + + + + + | [facility] | [address] | [place], [place] | | | [facility] | | [address] | | | - LABORATORY | | | | + + + + + Antibody Screen (01/25/2012 9:46 AM PDT) + + + + + + | Component | Value | Ref Range | Performed | Pathologist | | | | | At | Signature | + + + + + + | Antibody | NEGATIVE | | [facility] | | | Screen | | | [facility] | | | | | | MEDICAL | | | | | | CENTER - | | | | | | LABORATORY | | + + + + + + + + | Specimen | + + | | + + + + + + + | Performing | Address | City/State/Zipcode | Phone Number | | Organization | | | | + + + + + | [facility] | [address] | [place] | [phone] | | [facility] | | [address] | | | - LABORATORY | | | | + + + + + | [facility] | [address] | [place], [place] | | | [facility] | | [address] | | | - LABORATORY | | | | + + + + + ABO Rh (01/25/2012 9:46 AM PDT) + + | Specimen | + + | | + + + + + + + | Performing | Address | City/State/Zipcode | Phone Number | | Organization | | | | + + + + + | [facility] | [address] | [place] | [phone] | | [facility] | | [address] | | | - LABORATORY | | | | + + + + + Comprehensive Metabolic Panel (01/25/2012 9:46 AM PDT) + + + + + + | Component | Value | Ref Range | Performed | Pathologist | | | | | At | Signature | + + + + + + | Glucose | 133 (H) | 70 - 109 mg/dL | [facility] | | | | | | [facility] | | | | | | MEDICAL | | | | | | CENTER - | | | | | | LABORATORY | | + + + + + + | Calcium | 8.8 | 8.3 - 10.5 | [facility] | | | | | mg/dL | [facility] | | | | | | MEDICAL | | | | | | CENTER - | | | | | | LABORATORY | | + + + + + + | Alkaline | 99 | 40 - 110 IU/L | [facility] | | | Phosphatase | | | [facility] | | | | | | MEDICAL | | | | | | CENTER - | | | | | | LABORATORY | | + + + + + + | AST | 17 | 10 - 42 IU/L | [facility] | | | | | | [facility] | | | | | | MEDICAL | | | | | | CENTER - | | | | | | LABORATORY | | + + + + + + | ALT | 22 | 6 - 45 IU/L | [facility] | | | | | | [facility] | | | | | | MEDICAL | | | | | | CENTER - | | | | | | LABORATORY | | + + + + + + | Bilirubin | 0.9 | 0.2 - 1.0 mg/dL | [facility] | | | Total | | | [facility] | | | | | | MEDICAL | | | | | | CENTER - | | | | | | LABORATORY | | + + + + + + | Total | 6.3 | 6.0 - 7.8 gm/dL | [facility] | | | Protein | | | [facility] | | | | | | MEDICAL | | | | | | CENTER - | | | | | | LABORATORY | | + + + + + + | Albumin | 3.5 | 3.2 - 5.0 gm/dL | [facility] | | | | | | [facility] | | | | | | MEDICAL | | | | | | CENTER - | | | | | | LABORATORY | | + + + + + + | BUN | 12 | 7 - 18 mg/dL | [facility] | | | | | | [facility] | | | | | | MEDICAL | | | | | | CENTER - | | | | | | LABORATORY | | + + + + + + | Creatinine | 0.57 (L) | 0.60 - 1.30 | [facility] | | | | | mg/dL | [facility] | | | | | | MEDICAL | | | | | | CENTER - | | | | | | LABORATORY | | + + + + + + | Estimated | >60Comment: For | >60 mL/min/A | [facility] | | | GFR | -Americans, | | [facility] | | | | please multiply the | | MEDICAL | | | | result by 1.210 | | CENTER - | | | | This is an estimated | | LABORATORY | | | | GFR and is based on a | | | | | | standard adult | | | | | | body mass (A=1.73m2) and | | | | | | serum creatinine | | | | + + + + + + | BUN/Creatin | 21.1 (H) | 12 - 20 | [facility] | | | ine Ratio | | | [facility] | | | | | | MEDICAL | | | | | | CENTER - | | | | | | LABORATORY | | + + + + + + | Na | 137 | 136 - 149 mEq/L | [facility] | | | | | | [facility] | | | | | | MEDICAL | | | | | | CENTER - | | | | | | LABORATORY | | + + + + + + | K | 3.7 | 3.5 - 5.1 mEq/l | [facility] | | | | | | [facility] | | | | | | MEDICAL | | | | | | CENTER - | | | | | | LABORATORY | | + + + + + + | Cl | 104 | 98 - 109 mEq/l | [facility] | | | | | | [facility] | | | | | | MEDICAL | | | | | | CENTER - | | | | | | LABORATORY | | + + + + + + | CO2 | 25 | 24 - 31 mEq/L | [facility] | | | | | | [facility] | | | | | | MEDICAL | | | | | | CENTER - | | | | | | LABORATORY | | + + + + + + | Anion Gap | 11.7 | 6.0 - 17.0 | [facility] | | | | | | [facility] | | | | | | MEDICAL | | | | | | CENTER - | | | | | | LABORATORY | | + + + + + + + + | Specimen | + + | | + + + + + + + | Performing | Address | City/State/Zipcode | Phone Number | | Organization | | | | + + + + + | [facility] | [address] | [place] | [phone] | | [facility] | | [address] | | | - LABORATORY | | | | + + + + + | [facility] | [address] | [place] | | | [facility] | | [address] | | | - LABORATORY | | | | + + + + + Lactate Dehydrogenase (01/25/2012 9:46 AM PDT) + +-------+ + + + | Component | Value | Ref Range | Performed | Pathologist | | | | | At | Signature | + +-------+ + + + | LDH TOTAL | 107 | 91 - 180 IU/L | [facility] | | | | | | [facility] | | | | | | MEDICAL | | | | | | CENTER - | | | | | | LABORATORY | | + +-------+ + + + + + | Specimen | + + | | + + + + + + + | Performing | Address | City/State/Zipcode | Phone Number | | Organization | | | | + + + + + | [facility] | [address] | [place], [place] | [phone] | | [facility] | | [address] | | | - LABORATORY | | | | + + + + + | [facility] | [address] | [place], [place] | | | [facility] | | [address] | | | - LABORATORY | | | | + + + + + Product: Platelet Pheresis (01/25/2012 7:25 AM PDT) + + + + + + | Component | Value | Ref Range | Performed | Pathologist | | | | | At | Signature | + + + + + + | Product | PHERESIS | | [facility] | | | Code | PLATELETS-IRRADIATED | | [facility] | | | | | | MEDICAL | | | | | | CENTER - | | | | | | LABORATORY | | + + + + + + | UNIT # | [id number] | | [facility] | | | | | | [facility] | | | | | | MEDICAL | | | | | | CENTER - | | | | | | LABORATORY | | + + + + + + | UNIT ABO | A | | [facility] | | | | | | [facility] | | | | | | MEDICAL | | | | | | CENTER - | | | | | | LABORATORY | | + + + + + + | UNIT RH | POS | | [facility] | | | | | | [facility] | | | | | | MEDICAL | | | | | | CENTER - | | | | | | LABORATORY | | + + + + + + | Unit Status | TRANSFUSED | | [facility] | | | | | | [facility] | | | | | | MEDICAL | | | | | | CENTER - | | | | | | LABORATORY | | + + + + + + + + | Specimen | + + | | + + + + + + + | Performing | Address | City/State/Zipcode | Phone Number | | Organization | | | | + + + + + | [facility] | [address] | [place] | [phone] | | [facility] | | [address] | | | - LABORATORY | | | | + + + + + | [facility] | | | | | [facility] | | | | | - LABORATORY | | | | + + + + + Product: LEXII (01/25/2012 7:25 AM PDT) + + + + + + | Component | Value | Ref Range | Performed | Pathologist | | | | | At | Signature | + + + + + + | Product | PACKED CELLS,IRRADIATED | | [facility] | | | Code | | | [facility] | | | | | | MEDICAL | | | | | | CENTER - | | | | | | LABORATORY | | + + + + + + | UNIT # | [id number] | | [facility] | | | | | | [facility] | | | | | | MEDICAL | | | | | | CENTER - | | | | | | LABORATORY | | + + + + + + | UNIT ABO | A | | [facility] | | | | | | [facility] | | | | | | MEDICAL | | | | | | CENTER - | | | | | | LABORATORY | | + + + + + + | UNIT RH | POS | | [facility] | | | | | | [facility] | | | | | | MEDICAL | | | | | | CENTER - | | | | | | LABORATORY | | + + + + + + | Unit Status | TRANSFUSED | | [facility] | | | | | | [facility] | | | | | | MEDICAL | | | | | | CENTER - | | | | | | LABORATORY | | + + + + + + + + | Specimen | + + | | + + + + + + + | Performing | Address | City/State/Zipcode | Phone Number | | Organization | | | | + + + + + | [facility] | [address] | [place] | [phone] | | [facility] | | [address] | | | - LABORATORY | | | | + + + + + | [facility] | | | | | [facility] | | | | | - LABORATORY | | | | + + + + + Product: PRBC (01/25/2012 7:25 AM PDT) + + + + + + | Component | Value | Ref Range | Performed | Pathologist | | | | | At | Signature | + + + + + + | Product | PACKED CELLS,IRRADIATED | | [facility] | | | Code | | | [facility] | | | | | | MEDICAL | | | | | | CENTER - | | | | | | LABORATORY | | + + + + + + | UNIT # | [id number] | | [facility] | | | | | | [facility] | | | | | | MEDICAL | | | | | | CENTER - | | | | | | LABORATORY | | + + + + + + | UNIT ABO | A | | [facility] | | | | | | [facility] | | | | | | MEDICAL | | | | | | CENTER - | | | | | | LABORATORY | | + + + + + + | UNIT RH | POS | | [facility] | | | | | | [facility] | | | | | | MEDICAL | | | | | | CENTER - | | | | | | LABORATORY | | + + + + + + | Unit Status | TRANSFUSED | | [facility] | | | | | | [facility] | | | | | | MEDICAL | | | | | | CENTER - | | | | | | LABORATORY | | + + + + + + + + | Specimen | + + | | + + + + + + + | Performing | Address | City/State/Zipcode | Phone Number | | Organization | | | | + + + + + | [facility] | [address] | [place] | [phone] | | [facility] | | [address] | | | - LABORATORY | | | | + + + + + | [facility] | | | | | [facility] | | | | | - LABORATORY | | | | + + + + + Comprehensive Metabolic Panel (01/14/2012 10:00 AM PDT) + + + + + + | Component | Value | Ref Range | Performed | Pathologist | | | | | At | Signature | + + + + + + | Glucose | 131 (H) | 70 - 109 mg/dL | [facility] | | | | | | [facility] | | | | | | MEDICAL | | | | | | CENTER - | | | | | | LABORATORY | | + + + + + + | Calcium | 9.0 | 8.3 - 10.5 | [facility] | | | | | mg/dL | [facility] | | | | | | MEDICAL | | | | | | CENTER - | | | | | | LABORATORY | | + + + + + + | Alkaline | 115 (H) | 40 - 110 IU/L | [facility] | | | Phosphatase | | | [facility] | | | | | | MEDICAL | | | | | | CENTER - | | | | | | LABORATORY | | + + + + + + | AST | 19 | 10 - 42 IU/L | [facility] | | | | | | [facility] | | | | | | MEDICAL | | | | | | CENTER - | | | | | | LABORATORY | | + + + + + + | ALT | 12 | 6 - 45 IU/L | [facility] | | | | | | [facility] | | | | | | MEDICAL | | | | | | CENTER - | | | | | | LABORATORY | | + + + + + + | Bilirubin | 0.4 | 0.2 - 1.0 mg/dL | [facility] | | | Total | | | [facility] | | | | | | MEDICAL | | | | | | CENTER - | | | | | | LABORATORY | | + + + + + + | Total | 5.8 (L) | 6.0 - 7.8 gm/dL | [facility] | | | Protein | | | [facility] | | | | | | MEDICAL | | | | | | CENTER - | | | | | | LABORATORY | | + + + + + + | Albumin | 3.2 | 3.2 - 5.0 gm/dL | [facility] | | | | | | [facility] | | | | | | MEDICAL | | | | | | CENTER - | | | | | | LABORATORY | | + + + + + + | BUN | 4 (L) | 7 - 18 mg/dL | [facility] | | | | | | [facility] | | | | | | MEDICAL | | | | | | CENTER - | | | | | | LABORATORY | | + + + + + + | Creatinine | 0.52 (L) | 0.60 - 1.30 | [facility] | | | | | mg/dL | [facility] | | | | | | MEDICAL | | | | | | CENTER - | | | | | | LABORATORY | | + + + + + + | Estimated | >60Comment: For | >60 mL/min/A | [facility] | | | GFR | -Americans, | | [facility] | | | | please multiply the | | MEDICAL | | | | result by 1.210 | | CENTER - | | | | This is an estimated | | LABORATORY | | | | GFR and is based on a | | | | | | standard adult | | | | | | body mass (A=1.73m2) and | | | | | | serum creatinine | | | | + + + + + + | BUN/Creatin | 7.7 (L) | 12 - 20 | [facility] | | | ine Ratio | | | [facility] | | | | | | MEDICAL | | | | | | CENTER - | | | | | | LABORATORY | | + + + + + + | Na | 136 | 136 - 149 mEq/L | [facility] | | | | | | [facility] | | | | | | MEDICAL | | | | | | CENTER - | | | | | | LABORATORY | | + + + + + + | K | 3.7 | 3.5 - 5.1 mEq/l | [facility] | | | | | | [facility] | | | | | | MEDICAL | | | | | | CENTER - | | | | | | LABORATORY | | + + + + + + | Cl | 101 | 98 - 109 mEq/l | [facility] | | | | | | [facility] | | | | | | MEDICAL | | | | | | CENTER - | | | | | | LABORATORY | | + + + + + + | CO2 | 25 | 24 - 31 mEq/L | [facility] | | | | | | [facility] | | | | | | MEDICAL | | | | | | CENTER - | | | | | | LABORATORY | | + + + + + + | Anion Gap | 13.7 | 6.0 - 17.0 | [facility] | | | | | | [facility] | | | | | | MEDICAL | | | | | | CENTER - | | | | | | LABORATORY | | + + + + + + + + | Specimen | + + | | + + + + + + + | Performing | Address | City/State/Zipcode | Phone Number | | Organization | | | | + + + + + | [facility] | [address] | [place] | [phone] | | [facility] | | [address] | | | - LABORATORY | | | | + + + + + | [facility] | [address] | [place] | | | [facility] | | [address] | | | - LABORATORY | | | | + + + + + Lactate Dehydrogenase (01/14/2012 10:00 AM PDT) + +-------+ + + + | Component | Value | Ref Range | Performed | Pathologist | | | | | At | Signature | + +-------+ + + + | LDH TOTAL | 174 | 91 - 180 IU/L | [facility] | | | | | | [facility] | | | | | | MEDICAL | | | | | | CENTER - | | | | | | LABORATORY | | + +-------+ + + + + + | Specimen | + + | | + + + + + + + | Performing | Address | City/State/Zipcode | Phone Number | | Organization | | | | + + + + + | [facility] | [address] | [place] | [phone] | | [facility] | | [address] | | | - LABORATORY | | | | + + + + + | [facility] | [address] | [place], [place] | | | [facility] | | [address] | | | - LABORATORY | | | | + + + + + CBC with Differential (01/14/2012 10:00 AM PDT) + + + + + + | Component | Value | Ref Range | Performed | Pathologist | | | | | At | Signature | + + + + + + | WBC | 6.8 | 4.0 - 11.0 K/uL | [facility] | | | | | | [facility] | | | | | | MEDICAL | | | | | | CENTER - | | | | | | LABORATORY | | + + + + + + | RBC | 3.06 (L) | 3.70 - 5.20 | [facility] | | | | | M/uL | [facility] | | | | | | MEDICAL | | | | | | CENTER - | | | | | | LABORATORY | | + + + + + + | Hemoglobin | 8.9 (L) | 11.5 - 16.0 | [facility] | | | | | gm/dL | [facility] | | | | | | MEDICAL | | | | | | CENTER - | | | | | | LABORATORY | | + + + + + + | Hematocrit | 26.1 (L) | 34.0 - 47.0 % | [facility] | | | | | | [facility] | | | | | | MEDICAL | | | | | | CENTER - | | | | | | LABORATORY | | + + + + + + | MCV | 85.2 | 83.0 - 101.0 fL | [facility] | | | | | | [facility] | | | | | | MEDICAL | | | | | | CENTER - | | | | | | LABORATORY | | + + + + + + | MCH | 29.0 | 28.0 - 35.0 pg | [facility] | | | | | | [facility] | | | | | | MEDICAL | | | | | | CENTER - | | | | | | LABORATORY | | + + + + + + | MCHC | 34.0 | 32.0 - 36.0 | [facility] | | | | | g/dL | [facility] | | | | | | MEDICAL | | | | | | CENTER - | | | | | | LABORATORY | | + + + + + + | RDW-CV | 21.9 (H) | <15.0 % | [facility] | | | | | | [facility] | | | | | | MEDICAL | | | | | | CENTER - | | | | | | LABORATORY | | + + + + + + | Platelet | 103 (L) | 140 - 440 K/uL | [facility] | | | Count | | | [facility] | | | | | | MEDICAL | | | | | | CENTER - | | | | | | LABORATORY | | + + + + + + | % | 65.1 | 45 - 75 % | [facility] | | | Neutrophils | | | [facility] | | | | | | [facility] | | | | | | C[facility] - | | | | | | LABORATORY | | + + + + + + | % | 26.6 | 20 - 45 % | [facility] | | | Lymphocytes | | | [facility] | | | | | | [facility] | | | | | | [facility] - | | | | | | LABORATORY | | + + + + + + | % Monocytes | 7.2 | 4 - 12 % | [facility] | | | | | | [facility] | | | | | | [facility] | | | | | | [facility] - | | | | | | LABORATORY | | + + + + + + | % | 1.0 | 0 - 5 % | [facility] | | | Eosinophils | | | [facility] | | | | | | [facility] | | | | | | [facility] - | | | | | | LABORATORY | | + + + + + + | % Basophils | 0.1 | 0 - 1 % | [facility] | | | | | | [facility] | | | | | | [facility] | | | | | | [facility] - | | | | | | LABORATORY | | + + + + + + | Absolute | 4.4 | 1.5 - 6.6 K/uL | [facility] | | | Neutrophils | | | [facility] | | | | | | [facility] | | | | | | [facility] - | | | | | | LABORATORY | | + + + + + + | Absolute | 1.8 | 0.6 - 3.2 K/uL | [facility] | | | Lymphocytes | | | [facility] | | | | | | [facility] | | | | | | [facility] - | | | | | | LABORATORY | | + + + + + + | Absolute | 0.5 | 0.0 - 1.0 K/uL | [facility] | | | Monocytes | | | [facility] | | | | | | [facility] | | | | | | [facility] - | | | | | | LABORATORY | | + + + + + + | Absolute | 0.1 | 0.0 - 0.4 K/uL | [facility] | | | Eosinophils | | | [facility] | | | | | | [facility] | | | | | | [facility] - | | | | | | LABORATORY | | + + + + + + | Absolute | 0.0 | 0.0 - 0.1 K/uL | [facility] | | | Basophils | | | [facility] | | | | | | [facility] | | | | | | [facility] - | | | | | | LABORATORY | | + + + + + + + + | Specimen | + + | | + + + + + + + | Performing | Address | City/State/Zipcode | Phone Number | | Organization | | | | + + + + + | [facility] | [address] | [place] | [phone] | | [facility] | | [address] | | | - LABORATORY | | | | + + + + + | [facility] | [address] | [place], [place] | | | [facility] | | [address] | | | - LABORATORY | | | | + + + + + Comprehensive Metabolic Panel (01/04/2012 1:19 PM PST) + + + + + + | Component | Value | Ref Range | Performed | Pathologist | | | | | At | Signature | + + + + + + | Glucose | 106 | 70 - 109 mg/dL | [facility] | | | | | | [facility] | | | | | | [facility] | | | | | | [facility] - | | | | | | LABORATORY | | + + + + + + | Calcium | 8.8 | 8.3 - 10.5 | [facility] | | | | | mg/dL | [facility] | | | | | | [facility] | | | | | | [facility] - | | | | | | LABORATORY | | + + + + + + | Alkaline | 103 | 40 - 110 IU/L | [facility] | | | Phosphatase | | | [facility] | | | | | | [facility] | | | | | | CENTER - | | | | | | LABORATORY | | + + + + + + | AST | 14 | 10 - 42 IU/L | [facility] | | | | | | [facility] | | [facility] | | | [facility] | | | | | | [facility] - | | | | | | LABORATORY | | + + + + + + | ALT | 15 | 6 - 45 IU/L | [facility] | | | | | | [facility] | | [facility] | | | [facility] | | | | | | [facility] - | | | | | | LABORATORY | | + + + + + + | Bilirubin | 0.5 | 0.2 - 1.0 mg/dL | [facility] | | | Total | | | [facility] | | | | | | [facility] | | | | | | [facility] - | | | | | | LABORATORY | | + + + + + + | Total | 6.1 | 6.0 - 7.8 gm/dL | [facility] | | | Protein | | | [facility] | | | | | | [facility] | | | | | | [facility] - | | | | | | LABORATORY | | + + + + + + | Albumin | 3.3 | 3.2 - 5.0 gm/dL | [facility] | | | | | | [facility] | | | | | | [facility] | | | | | | [facility] - | | | | | | LABORATORY | | + + + + + + | BUN | 5 (L) | 7 - 18 mg/dL | [facility] | | | | | | [facility] | | | | | | [facility] | | | | | | [facility] - | | | | | | LABORATORY | | + + + + + + | Creatinine | 0.45 (L) | 0.60 - 1.30 | [facility] | | | | | mg/dL | [facility] | | | | | | [facility] | | | | | | CENTER - | | | | | | LABORATORY | | + + + + + + | Estimated | >60Comment: For | >60 mL/min/A | [facility] | | | GFR | -Americans, | | [facility] | | | | please multiply the | | MEDICAL | | | | result by 1.210 | | CENTER - | | | | This is an estimated | | LABORATORY | | | | GFR and is based on a | | | | | | standard adult | | | | | | body mass (A=1.73m2) and | | | | | | serum creatinine | | | | + + + + + + | BUN/Creatin | 11.1 (L) | 12 - 20 | [facility] | | | ine Ratio | | | [facility] | | | | | | MEDICAL | | | | | | CENTER - | | | | | | LABORATORY | | + + + + + + | Na | 132 (L) | 136 - 149 mEq/L | [facility] | | | | | | [facility] | | | | | | [facility] | | | | | | CENTER - | | | | | | LABORATORY | | + + + + + + | K | 3.6 | 3.5 - 5.1 mEq/l | [facility] | | | | | | [facility] | | | | | | [facility] | | | | | | CENTER - | | | | | | LABORATORY | | + + + + + + | Cl | 98 | 98 - 109 mEq/l | [facility] | | | | | | [facility] | | | | | | [facility]ICAL | | | | | | CENTER - | | | | | | LABORATORY | | + + + + + + | CO2 | 25 | 24 - 31 mEq/L | [facility] | | | | | | [facility] | | | | | | [facility] | | | | | | CENTER - | | | | | | LABORATORY | | + + + + + + | Anion Gap | 12.6 | 6.0 - 17.0 | [facility] | | | | | | [facility] | | | | | | [facility]ICAL | | | | | | CENTER - | | | | | | LABORATORY | | + + + + + + + + | Specimen | + + | | + + + + + + + | Performing | Address | City/State/Zipcode | Phone Number | | Organization | | | | + + + + + | [facility] | [address] | [place], [place] | [phone] | | [facility] | | [address] | | | - LABORATORY | | | | + + + + + | [facility] | [address] | [place], [place] | | | [facility] | | [address] | | | - LABORATORY | | | | + + + + + Lactate Dehydrogenase (01/04/2012 1:19 PM PST) + +-------+ + + + | Component | Value | Ref Range | Performed | Pathologist | | | | | At | Signature | + +-------+ + + + | LDH TOTAL | 158 | 91 - 180 IU/L | [facility] | | | | | [facility] | | | | | | MEDICAL | | | | | | CENTER - | | | | | | LABORATORY | | + +-------+ + + + + + | Specimen | + + | | + + + + + + + | Performing | Address | City/State/Zipcode | Phone Number | | Organization | | | | + + + + + | [facility] | [address] | [place] | [phone] | | [facility] | | [address] | | | - LABORATORY | | | | + + + + + | [facility] | [address] | [place] | | | [facility] | | [address] | | | - LABORATORY | | | | + + + + + CBC with Differential (01/04/2012 1:19 PM PST) + + + + + + | Component | Value | Ref Range | Performed | Pathologist | | | | | At | Signature | + + + + + + | WBC | 2.0 (LL) | 4.0 - 11.0 K/uL | [facility] | | | | | | [facility] | | | | | | MEDICAL | | | | | | CENTER - | | | | | | LABORATORY | | + + + + + + | RBC | 3.08 (L) | 3.70 - 5.20 | [facility] | | | | | M/uL | [facility] | | | | | | MEDICAL | | | | | | CENTER - | | | | | | LABORATORY | | + + + + + + | Hemoglobin | 8.7 (L) | 11.5 - 16.0 | [facility] | | | | | gm/dL | [facility] | | | | | | MEDICAL | | | | | | CENTER - | | | | | | LABORATORY | | + + + + + + | Hematocrit | 25.5 (L) | 34.0 - 47.0 % | [facility] | | | | | | [facility] | | | | | | MEDICAL | | | | | | CENTER - | | | | | | LABORATORY | | + + + + + + | MCV | 82.8 (L) | 83.0 - 101.0 fL | [facility] | | | | | | [facility] | | | | | | MEDICAL | | | | | | CENTER - | | | | | | LABORATORY | | + + + + + + | MCH | 28.4 | 28.0 - 35.0 pg | [facility] | | | | | | [facility] | | | | | | MEDICAL | | | | | | CENTER - | | | | | | LABORATORY | | + + + + + + | MCHC | 34.3 | 32.0 - 36.0 | [facility] | | | | | g/dL | [facility] | | | | | | MEDICAL | | | | | | CENTER - | | | | | | LABORATORY | | + + + + + + | RDW-CV | 18.1 (H) | <15.0 % | [facility] | | | | | | [facility] | | | | | | MEDICAL | | | | | | CENTER - | | | | | | LABORATORY | | + + + + + + | Platelet | 119 (L) | 140 - 440 K/uL | [facility] | | | Count | | | [facility] | | | | | | MEDICAL | | | | | | CENTER - | | | | | | LABORATORY | | + + + + + + | % | 32.4 (L) | 45 - 75 % | [facility] | | | Neutrophils | | | [facility] | | | | | | MEDICAL | | | | | | CENTER - | | | | | | LABORATORY | | + + + + + + | % | 31.1 | 20 - 45 % | [facility] | | | Lymphocytes | | | [facility] | | | | | | MEDICAL | | | | | | CENTER - | | | | | | LABORATORY | | + + + + + + | % Monocytes | 35.0 (H) | 4 - 12 % | [facility] | | | | | | [facility] | | | | | | MEDICAL | | | | | | CENTER - | | | | | | LABORATORY | | + + + + + + | % | 0.9 | 0 - 5 % | [facility] | | | Eosinophils | | | [facility] | | | | | | MEDICAL | | | | | | CENTER - | | | | | | LABORATORY | | + + + + + + | % Basophils | 0.6 | 0 - 1 % | [facility] | | | | | | [facility] | | | | | | MEDICAL | | | | | | CENTER - | | | | | | LABORATORY | | + + + + + + | Absolute | 0.7 (L) | 1.5 - 6.6 K/uL | [facility] | | | Neutrophils | | | [facility] | | | | | | MEDICAL | | | | | | CENTER - | | | | | | LABORATORY | | + + + + + + | Absolute | 0.6 | 0.6 - 3.2 K/uL | [facility] | | | Lymphocytes | | | [facility] | | | | | | MEDICAL | | | | | | CENTER - | | | | | | LABORATORY | | + + + + + + | Absolute | 0.7 | 0.0 - 1.0 K/uL | [facility] | | | Monocytes | | | [facility] | | | | | | MEDICAL | | | | | | CENTER - | | | | | | LABORATORY | | + + + + + + | Absolute | 0.0 | 0.0 - 0.4 K/uL | [facility] | | | Eosinophils | | | [facility] | | | | | | MEDICAL | | | | | | CENTER - | | | | | | LABORATORY | | + + + + + + | Absolute | 0.0 | 0.0 - 0.1 K/uL | [facility] | | | Basophils | | | [facility] | | | | | | MEDICAL | | | | | | CENTER - | | | | | | LABORATORY | | + + + + + + | SUSPECTED | 1 (H) | | [facility] | | | PROBLEM IS: | Comment: | | [facility] | | | | Ly Blasts | | MEDICAL | | | | Imm. NE 2 | | CENTER - | | | | Verify Diff | | LABORATORY | | + + + + + + + + | Specimen | + + | | + + + + + + + | Performing | Address | City/State/Zipcode | Phone Number | | Organization | | | | + + + + + | [facility] | [address] | [place] | [phone] | | [facility] | | [address] | | | - LABORATORY | | | | + + + + + | [facility] | [address] | [place] | | | [facility] | | [address] | | | - LABORATORY | | | | + + + + + documented in this encounter Visit Diagnoses Not on filedocumented in this encounter
--- OUTSIDE RECORDS SUMMARY | ~2019-09-11 | XMS | Encounter Summary ---
Demographics + + + | Address | [address] | | | [place] [address] | + + + | Home Phone | | + + + | Preferred Language | Unknown | + + + | Marital Status | Single | + + + | Lutheran Affiliation | NON | + + + | Race | or | + + + | Ethnic Group | Not or | + + + Author + + + | Author | [facility] | + + + | Organization | [facility] | + + + | Address | Unknown | + + + | Phone | Unavailable | + + + Support + + + + + | Name | Relationship | Address | Phone | + + + + + | Yue Fischer | ECON | [address] | | | | | [place] | | | | | [address] | | + + + + + | Greta Broncheau | ECON | Unknown | | + + + + + Care Team Providers + +------+ + | Care Director Learning Name | Role | Phone | + +------+ + | Becky Jennings | PCP | | + +------+ + Encounter Details +--------+ + + + + | Date | Type | Department | Care Team | Description | +--------+ + + + + | 10/22/ | Hospital | Cardiac | Sjh, Car Ecg Tech | | | 2010 | Encounter | Non-Invasive Testing | [address] [facility] | | | | | at [facility] | [facility] | | | | | [address] [facility] | [place] [address] | | | | | [facility] | | | | | | Mailcode: [id number] [facility] | | | | | | [facility] | | | | | | [facility], | | | | | | [place] [address] | | | | | | [phone] | | | +--------+ + + + + Social History + + + +--------+------+ | Tobacco Use | Types | Packs/Day | Years | Date | | | | | Used | | + + + +--------+------+ | Current Every Day | Cigarettes | 0.5 | 15 | | | Smoker | | | | | + + + +--------+------+ + +---+---+---+ | Smokeless Tobacco: | | | | | Never Used | | | | + +---+---+---+ + + +---------+ + | Alcohol Use | Drinks/Week | oz/Week | Comments | + + +---------+ + | No [...] at Time of Discharge + + + +---------+--------+ + | Medication | Sig | Dispensed | Refills | Start | End Date | | | | | | Date | | + + + +---------+--------+ + | ergocalciferol | Take 50,000 Units by | | 0 | | | | (VITAMIN D) 50,000 | mouth every seven | | | | | | unit Oral Capsule | days. | | | | | + + + +---------+--------+ + documented as of this encounter Plan of Treatment Not on filedocumented as of this encounter Procedures + +--------+ + + + | Procedure Name | Priori | Date/Time | Associated Diagnosis | Comments | | | ty | | | | + +--------+ + + + | 12 LEAD ECG | Routin | 10/22/2011 | Retroperitoneal | Results for this | | | e | 1:38 PM | mass Type 2 | procedure are in the | | | | PST | diabetes mellitus | results section. | | | | | (HCC) Other | | | | | | specified | | | | | | pre-operative | | | | | | examination | | + +--------+ + + + documented in this encounter Results 12 LEAD ECG (10/22/2011 1:38 PM PST) + + + + + + | Component | Value | Ref Range | Performed | Pathologist | | | | | At | Signature | + + + + + + | VENTRICULAR | 92 | BPM | [facility] | | | RATE | | | OF | | | | | | CARDIOLOGY | | + + + + + + | ATRIAL RATE | 92 | BPM | [facility] | | | | | | OF | | | | | | CARDIOLOGY | | + + + + + + | P-R | 138 | ms | [facility] | | | INTERVAL | | | OF | | | | | | CARDIOLOGY | | + + + + + + | QRS | 94 | ms | [facility] | | | DURATION | | | OF | | | | | | CARDIOLOGY | | + + + + + + | QT | 372 | ms | [facility] | | | | | | OF | | | | | | CARDIOLOGY | | + + + + + + | QTC | 460 | ms | [facility] | | | | | | OF | | | | | | CARDIOLOGY | | + + + + + + | P AXIS | 64 | degrees | [facility] | | | | | | OF | | | | | | CARDIOLOGY | | + + + + + + | R AXIS | -54 | degrees | [facility] | | | | | | OF | | | | | | CARDIOLOGY | | + + + + + + | T AXIS | 66 | degrees | [facility] | | | | | | OF | | | | | | CARDIOLOGY | | + + + + + + | EKG | Normal sinus rhythmLeft | | [facility] | | | DIAGNOSIS | axis deviationAbnormal | | OF | | | | ECG"I have personally | | CARDIOLOGY | | | | interpreted this report, | | | | | | either alone or with a | | | | | | trainee."Confirmed by | | | | | | MONIKA HORN ([id number]) on | | | | | | 10/24/2011 11:29:45 AM | | | | + + + + + + + + | Specimen | + + | | + + + + + | Narrative | Performed At | + + + | Please click | [facility] | | on view image for the detailed interpretation from [employer] results. | CARDIOLOGY | + + + + + + + + | Performing | Address | City/State/Zipcode | Phone Number | | Organization | | | | + + + + + | [facility] | [address] | [place], [place] | | | CARDIOLOGY | [address] | [address] | | + + + + + documented in this encounter Visit Diagnoses Not on filedocumented in this encounter
--- OUTSIDE RECORDS SUMMARY | ~2019-09-11 | XMS | Encounter Summary ---
Demographics + + + | Address | [address] | | | [place] [address] | + + + | Home Phone | | + + + | Preferred Language | Unknown | + + + | Marital Status | | + + + | Mu-Ism Affiliation | Unknown | + + + | Race | Unknown | + + + | Ethnic Group | Unknown | + + + Author + + + | Author | [facility] | | | and Hermannana | + + + | Organization | [facility] | | | and Hermannana [...] [place], [place] | | | | | [address] | | + + + + + | Greta Broncheau | ECON | [place], [place] | | | | | [address] | | + + + + + Care Team Providers + +------+ + | Care Welt Sole Layer Name | Role | Phone | + +------+ + PCP | Unavailable | + +------+ + Encounter Details +--------+ + + + + | Date | Type | Department | Care Team | Description | +--------+ + + + + | 03/08/ | Hospital | [facility] | Leann, | | | 2011 | Encounter | MED CTR XRAY [address] | Antonio Infante MD [address] | | | | | [place] | [address] [place] | | | | | [place] [address] | [place] [address] | | | | | [phone] | [phone] | | | | | | | | +--------+ + + + [...] + + documented as of this encounter Plan of Treatment Not on filedocumented as of this encounter Procedures + +--------+ + + + | Procedure Name | Priori | Date/Time | Associated Diagnosis | Comments | | | ty | | | | + +--------+ + + + | ECHO COMPLETE | | 03/08/2012 | | Results for this | | | | 7:40 AM | | procedure are in the | | | | PDT | | results section. | + +--------+ + + + documented in this encounter Results ECHO Complete (03/08/2012 7:40 AM PDT) + + | Specimen | + + | | + + + + + | Narrative | Performed At | + + + | [facility] Diagnostic Imaging Department | [facility] | | [address] [facility] | [facility] | | E C H O C A R D | DIAG IMG | | I O G R A P H Y R E P O R T HEIGHT: 64" | | | WEIGHT: 175# A R SPECIALIST: SMZ REFERRING DR: | | | LEANN NEUMANN DR: REID DIAGNOSIS: CHEMO | | | | | | M E A S U R E M E N T S | | | Aortic Root: 36 mm LV Diameter-diastole: | | | 54 mm Aortic Cusp Sep: 21 mm LV | | | Diameter--systole: 41 mm LA: 28 mm | | | Fractional Shortenin % IVS--diastole: | | | 9 mm PFV Aortic Valve: IVS--systole: | | | 13 mm MPG Mitral Valve: mmHg | | | LVPW--diastole: 10 mm PFV TR Jet: | | | m/s LVPW--systole: 15 mm RA/RV | | | PPG: mmHg | | | | | | ECHOCARDIOGRAPHY, 03/08/2012 INDICATIONS FOR PROCEDURE: | | | PREOP CHEMOTHERAPY. TECHNICAL DATA: The quality of the | | | study is adequate. This is a 2-D echo / M- mode / Doppler / color | | | Doppler study. FINDINGS: Left atrial size is normal. Left | | | ventricular size is normal with normal wall thickness. There is a | | | segmental wall motion abnormality with moderate hypokinesis of the | | | mid anteroseptal and distal anteroseptal. LVEF is 50%. There is a | | | grade 1 left ventricular diastolic dysfunction. Aortic root is | | | normal. Right atrial size is normal. Right ventricular size is | | | normal with normal wall thickness and normal right ventricular | | | systolic function. Pericardium is normal. Pulmonary artery is | | | normal. Aortic valve is trileaflet and opens normally. There is a | | | mild aortic valve regurgitation. Mitral valve is normal with a | | | mild mitral valve regurgitation. Pulmonic valve is normal. | | | Tricuspid valve is normal. IVC is normal. IMPRESSION: 1. A | | | NORMAL LEFT VENTRICULAR SIZE AND WALL THICKNESS. THERE IS A SEGMENTAL | | | WALL MOTION ABNORMALITY WITH MODERATE HYPOKINESIS OF THE MID | | | ANTEROSEPTAL AND DISTAL ANTEROSEPTAL. OVERALL LEFT VENTRICULAR | | | SYSTOLIC FUNCTION IS LOW NORMAL. LVEF IS 50%. 2. A GRADE | | | 1 LEFT VENTRICULAR DIASTOLIC DYSFUNCTION. 3. A MILD AORTIC | | | VALVE REGURGITATION. 4. A MILD MITRAL VALVE REGURGITATION. | | | Dictated Date/Time: 03/08/2012 16:36 Transcribed Date/Time: | | | 03/08/2012 17:09 Wafer Fabrication Technician: <Electronically Signed | | | by Endy Polo MD [facility]> 03/09/12 1615 | | + + + + + | Procedure Note | + + | Philip Groves Brennen - 12/08/2013 5:17 PM [facility] | | Diagnostic Imaging Department | | [address] [facility] | | | | | | | | E C H O C A R D I O G R A P H Y R E P O R T | | | | | | HEIGHT: 64" WEIGHT: 175# A R SPECIALIST: SWAPNIL | | REFERRING DR: LEANN NEUMANN DR: REID | | | | DIAGNOSIS: CHEMO | | | | | | M E A S U R E M E N T S | | | | Aortic Root: 36 mm LV Diameter-diastole: 54 mm | | Aortic Cusp Sep: 21 mm LV Diameter--systole: 41 mm | | LA: 28 mm Fractional Shortenin % | | IVS--diastole: 9 mm PFV Aortic Valve: | | IVS--systole: 13 mm MPG Mitral Valve: mmHg | | LVPW--diastole: 10 mm PFV TR Jet: m/s | | LVPW--systole: 15 mm RA/RV PPG: mmHg | | | | | | | | ECHOCARDIOGRAPHY, 03/08/2012 | | | | INDICATIONS FOR PROCEDURE: PREOP CHEMOTHERAPY. | | | | TECHNICAL DATA: The quality of the study is adequate. This is a 2-D echo / M- | | mode / Doppler / color Doppler study. | | | | FINDINGS: Left atrial size is normal. Left ventricular size is normal with | | normal wall thickness. There is a segmental wall motion abnormality with | | moderate hypokinesis of the mid anteroseptal and distal anteroseptal. LVEF is | | 50%. There is a grade 1 left ventricular diastolic dysfunction. Aortic root is | | normal. Right atrial size is normal. Right ventricular size is normal with | | normal wall thickness and normal right ventricular systolic function. | | Pericardium is normal. Pulmonary artery is normal. Aortic valve is trileaflet | | and opens normally. There is a mild aortic valve regurgitation. Mitral valve | | is normal with a mild mitral valve regurgitation. Pulmonic valve is normal. | | Tricuspid valve is normal. IVC is normal. | | | | IMPRESSION: | | 1. A NORMAL LEFT VENTRICULAR SIZE AND WALL THICKNESS. THERE IS A SEGMENTAL | | WALL MOTION ABNORMALITY WITH MODERATE HYPOKINESIS OF THE MID ANTEROSEPTAL AND | | DISTAL ANTEROSEPTAL. OVERALL LEFT VENTRICULAR SYSTOLIC FUNCTION IS LOW NORMAL. | | LVEF IS 50%. | | | | 2. A GRADE 1 LEFT VENTRICULAR DIASTOLIC DYSFUNCTION. | | | | 3. A MILD AORTIC VALVE REGURGITATION. | | | | 4. A MILD MITRAL VALVE REGURGITATION. | | | | Dictated Date/Time: 03/08/2012 16:36 | | Transcribed Date/Time: 03/08/2012 17:09 | | Wafer Fabrication Technician: | | <Electronically Signed by Endy Polo MD [facility]> 03/09/12 1615 | + + + +---------+ + + | Performing | Address | City/State/Zipcode | Phone Number | | Organization | | | | + +---------+ + + | [facility] | | | | | [place] | | | | + +---------+ + + documented in this encounter Visit Diagnoses Not on filedocumented in this encounter
--- OUTSIDE RECORDS SUMMARY | ~2019-09-11 | XMS | Encounter Summary ---
Demographics + + + | Address | [address] | | | [place] [address] | + + + | Home Phone | | + + + | Preferred Language | Unknown | + + + | Marital Status | | + + + | Restorationist Affiliation | Unknown | + + + | Race | Unknown | + + + | Ethnic Group | Unknown | + + + Author + + + | Author | [facility] | | | and Hermannana | + + + | Organization | [facility] | | | and Hermannana | [...] [place], [place] | | | | | [address] | | + + + + + | Greta Broncheau | ECON | [place], [place] | | | | | [address] | | + + + + + Care Team Providers + +------+ + | Care Manager Of Business Operations Name | Role | Phone | + +------+ + | Becky Jennings | PCP | | + +------+ + Reason for Visit + + + | Reason | Comments | + + + | Colonoscopy | | + + + Encounter Details +--------+ + + + + | Date | Type | Department | Care Team | Description | +--------+ + + + + | 12/26/ | Telephone | [facility] | Vance Orta MD | Colonoscopy | | 2013 | | GASTROENTEROLOGY | [address], [place] | | | | | [address] [place] | [address] [place] | | | | | [address] [place], [place] | [address] | | | | | [address] | | | | | | [phone] | | | +--------+ + + + + Social History + +-------+ +--------+ + | Tobacco Use | Types | Packs/Day | Years | Date | | | | | Used | | + +-------+ +--------+ + | Current Some Day | | | | Quit: 10/01/2011 | | Smoker | | | | | + +-------+ +--------+ + + +---+---+---+ [...] Not on filedocumented as of this encounter Visit Diagnoses Not on filedocumented in this encounter"
--- OUTSIDE RECORDS SUMMARY | ~2019-09-11 | XMS | Encounter Summary ---
Demographics + + + | Address | [address] | | | [place] [address] | + + + | Home Phone | | + + + | Preferred Language | Unknown | + + + | Marital Status | Single | + + + | Restorationist Affiliation | NON | + + + | Race | or | + + + | Ethnic Group | Not or | + + + Author + + + | Author | [facility] | + + + | Organization | [facility] | + + + | Address | Unknown | + + + | Phone | Unavailable | + + + Support + + + + + | Name | Relationship | Address | Phone | + + + + + | Yue Fischer | ECON | [address] | | | | | [place] | | | | | [address] | | + + + + + | Greta [place]cheau | ECON | Unknown | | + + + + + Care Team Providers + +------+ + | Care Flowers Salesperson Name | Role | Phone | + +------+ + | Becky Jennings | PCP | | + +------+ + Encounter Details +--------+ + + + + | Date | Type | Department | Care Team | Description | +--------+ + + + + | 06/15/ | Document-Sc | Surgical Oncology | Silvio Rm MD | | | 2013 | anned | at [facility] [address] | [address] | | | | | [address] Mail Code: | [place], [place] | | | | | [facility] | [address] | | | | | and [place], | [phone] | | | | | [facility] [address] | | | | | | [place], [place] | | | | | | [address] | | | | | | [phone] | | | +--------+ + + + + Social History + + + +--------+ + | Tobacco Use | Types | Packs/Day | Years | Date | | | | | Used | | + + + +--------+ + | Former Smoker | Cigarettes | 0.5 | 15 | Quit: 11/09/2011 | + + + +--------+ + + +---+---+---+ | Smokeless Tobacco: [...]
--- OUTSIDE RECORDS SUMMARY | ~2019-09-11 | XMS | Encounter Summary ---
Demographics + + + | Address | [address] | | | [place] [address] | + + + | Home Phone | | + + + | Preferred Language | Unknown | + + + | Marital Status | Single | + + + | Presybeterian Affiliation | NON | + + + | Race | or | + + + | Ethnic Group | Not or | + + + Author + + + | Author | [facility] | + + + | Organization | [facility] [employer] [facility] | + + + | Address | Unknown | + + + | Phone | Unavailable | + + + Support + + + + + | Name | Relationship | Address | Phone | + + + + + | Yue Fischer | ECON | [address] | | | | | [place] | | | | | [address] | | + + + + + | Greta [place] | ECON | Unknown | | + + + + + Care Team Providers + +------+ + | Care Taper Operator Name | Role | Phone | + +------+ + | Becky Jennings | PCP | | + +------+ + Encounter Details +--------+ + + + + | Date | Type | Department | Care Team | Description | +--------+ + + + + | 11/16/ | Results | LAB REFERRED TESTS | Other, Faculty | | | 2011 | Only | [address] [facility] | [phone] | | | | | [address] | | | | | | [place], [place] | | | | | | [address] | | | +--------+ + + + [...] | + +--------+ + + + | EJECTION FRACTION | Routin | 11/16/2011 | | Results for this | | | e | 3:06 PM | | procedure are in the | | | | PST | | results section. | + +--------+ + + + documented in this encounter Results EJECTION FRACTION (11/16/2011 3:06 PM PST) + + + + + + | Component | Value | Ref Range | Performed | Pathologist | | | | | At | Signature | + + + + + + | EJECTION | 60 - 65%Comment: EF | | [facility] | | | FRACTION | Recorded from | | OF | | | | Transthoracic | | CARDIOLOGY | | | | Echocardiogram | | | | + + + + + + + + | Specimen | + + | | + + + + + + + | Performing | Address | City/State/Zipcode | Phone Number | | Organization | | | | + + + + + | [facility] | [address] | [place], [place] | | | CARDIOLOGY | [facility] | [address] | | + + + + + documented in this encounter Visit Diagnoses Not on filedocumented in this encounter"
--- OUTSIDE RECORDS SUMMARY | ~2019-09-11 | XMS | Encounter Summary ---
Demographics + + + | Address | [address] | | | [place] [address] | + + + | Home Phone | | + + + | Preferred Language | Unknown | + + + | Marital Status | Single | + + + | Muslim Affiliation | NON | + + + | Race | or | + + + | Ethnic Group | Not or | + + + Author + + + | Author | [facility] | + + + | Organization | [facility] | + + + | Address | Unknown | + + + | Phone | Unavailable | + + + Support + + + + + | Name | Relationship | Address | Phone | + + + + + | Yue Fischer | ECON | [address] | | | | | [place] | | | | | [address] | | + + + + + | Greta Broncheau | ECON | Unknown | | + + + + + Care Team Providers + +------+ + | Care Insole Bottom Filler Name | Role | Phone | + +------+ + | Becky Jennings | PCP | | + +------+ + Reason for Visit AUTH/CERT (Routine) +--------+--------+ [...] | +--------+ + + + + | 11/09/ | Hospital | [facility] [address] | Osiel Rm MD | | | 2011 - | Encounter | [address] | | | | | Mailcode: [id number] | [place], [place] | | | 11/10/ | | [place] N[place] | [address] | | | 2011 | | [place], [place] | [phone] | | | | | [address] | | | | | | [phone] | | | +--------+ + + + [...] + + + | Blood Pressure | 118/74 | 11/10/2011 11:25 AM | | | | | PST | | + + + + + | Pulse | 109 | 11/10/2011 11:25 AM | | | | | PST | | + + + + + | Temperature | 36.3 C (97.4 F) | 11/10/2011 11:25 AM | | | | | PST | | + + + + + | Respiratory Rate | 16 | 11/10/2011 11:25 AM | | | | | PST | | + + + + + | Oxygen Saturation | 95% | 11/10/2011 11:25 AM | | | | | PST | | + + + + + | Inhaled Oxygen | - | - | | | Concentration | | | | + + + + + | Weight | 91.7 kg (202 lb 2.6 | 11/09/2011 6:00 AM | | | | oz) | PST | | + + + + + | Height | 162.6 cm (5' 4") | 11/09/2011 6:00 AM | | | | | PST | | + + + + + | Body Mass Index | 34.7 | 11/09/2011 6:00 AM | | | | | PST | | + + + + + documented in this encounter Discharge Summaries Sabrina Wren MD - 11/10/2011 1:36 PM PSTFormatting of this note might be different f rom the original. INPATIENT PHYSICIAN DISCHARGE SUMMARY Author: SABRINA WREN MD Attending Physician: Osiel Rm MD PCP: JING Luis Admission Date: 11/09/2011 Discharge Date: 10 Nov 2011 Diagnoses Principal Final Diagnosis: 1. Intraperitoneal mass Additional Diagnoses: N/A Procedures 1. Intraabdominal biopsy of mass Brief Hospital Course Frida Christian is a 51 y.o. female with a history of abdominal pain and ascites, admitted el ectively on 11/09/2011 for intra abdominal mass. The inpatient stay related to this intraperi toneal biopsy of the mass took an uncomplicated perioperative course and the patient was fol lowed closely by the attending providers, resident providers, and medical/nursing staff. Post operatively, the patient was admitted to the hospital for convalescent care. Pain con trol was managed with medication. The patient made appropriate gains toward activity and fu nctional goals while an inpatient. While on the hospital floor, the patient tolerated oral intake sufficient to maintain nutri tion and hydration. The surgical wound remained clean, dry, and intact without signs concern ing for infection. The patient was felt appropriate for discharge to home on 11/10/2011, and the patient and/or family members agree with this course of action. Medications: Discharge Medication List as of 11/10/2011 9:14 AM START taking these medications Details polyethylene glycol (MIRALAX) 17 gram Oral Powder in Packet Take 1 Packet by mouth once dale ly., Disp-12 Packet, R-0, Print Prescription CONTINUE these medications which have CHANGED or have new prescriptions Details !! HYDROcodone-acetaminophen 5-325 mg Oral Tablet Take 1-2 Tabs by mouth every six hours as needed for moderate pain. Not to exceed 10 tablets per any 24 hour period. (Not to exceed 3 250 mg of acetaminophen from all products per 24 hour period.), Disp-60 Tab, R-0, Print Pres cription !! - Potential duplicate medications found. Please discuss with provider. CONTINUE these medications which have NOT CHANGED Details Aspirin 81 mg Oral Tablet Take 81 mg by mouth once daily. , Historical Med ergocalciferol (VITAMIN D) 50,000 unit Oral Capsule Take 50,000 Units by mouth every seven days. , Historical Med glipiZIDE ER 5 mg Oral Tablet Extended Rel 24 hr Take 5 mg by mouth once daily. , Historic al Med !! HYDROcodone-acetaminophen 5-325 mg Oral Tablet Take 1-2 Tabs by mouth every six hours as needed. Not to exceed 10 tablets per any 24 hour period. (Not to exceed 3250 mg of acetamin ophen from all products per 24 hour period.) , Historical Med insulin glargine (LANTUS) 100 unit/mL Subcutaneous Solution Inject 10 Units under the skin (SUBC) once daily at bedtime. , Historical Med lisinopril 10 mg Oral Tablet Take 10 mg by mouth once daily. , Historical Med morphine 15 mg Oral Tablet Take 15 mg by mouth two times daily. , Historical Med OMEGA-3 FATTY ACIDS (FISH OIL ORAL) Take 100 mg by mouth once daily. , Historical Med Omeprazole 20 mg Oral Tablet, Delayed Release (E.C.) Take 20 mg by mouth once daily. , His torical Med trimethoprim-sulfamethoxazole 160-800 mg Oral Tablet Take 1 Tab by mouth once daily. , His torical Med !! - Potential duplicate medications found. Please discuss with provider. Diet Regular As tolerated Activity As tolerated Wound Care You may shower. Please no soaking of wounds. Please do not hesitate to call if you have red ness at the incision site, purulence, or fever >101.5 Other Discharge Orders and Instructions Please call if you experienced the following: - Fever greater than 101 - Excessive drainage from drain or surgical site - Excessive nausea and vomiting - Pain not controlled with current medication - Sudden onset of shortness of breath Destination: Destination: Home Condition on Discharge Good Discharge Follow Up- Facility MD to follow Please follow up with Dr. Rm please follow up 11/24/2010 @ 11 AM at [facility] Vitals on discharge: Ht 162.6 cm (5' 4")( < 3 %ile), Wt 91.7 kg (202 lbs 2.6 oz)( < 3 %ile) , BP 118/74, Pulse 109, Temperature 36.3 C (97.4 F), RR 16, SpO2 95%, BMI 34.70 kg/(m^2) . Outstanding labs/studies: Pathology Discharging Physician: SABRINA WREN MD Attending Physician: Osiel Rm MD documented in this encoun ter Discharge Instructions Instructions Aggie Altamirano RN - 11/10/2011Patient Education Materials: none Additional Instructions: none Discharge Nurse: AGGIE ALTAMIRANO RN Date: 11/10/2011 Discharge Time: 9:14 AM documented in this encounter Medications at Time [...] +---------+--------+ + documented as of this encounter Progress Notes Osiel Rm MD - 11/10/2011 7:36 AM PST11/10/2011 Surg Onc note I performed a history and physical examination of the patient and discussed his management with the resident. I reviewed the resident s note and agree with the documented findings and plan of care. Abdom wounds dry and intact. Tolerating pos. Home today, RTC in 2 weeks to see me and Heme-Onc (pending final path). OSIEL RM MD [facility] [address] [place], [place] [address] documented in this encoun ter Plan of Treatment Not on filedocumented as of this encounter Procedures + +--------+ + + + | Procedure Name | Priori | Date/Time | Associated Diagnosis | Comments | | | ty | | | | + +--------+ + + + | PROCEDURE NOTE | Routin | 12/06/2015 | | Results for this | | | e | 4:13 AM | | procedure are in the | | | | PST | | results section. | + +--------+ + + + | PROCEDURE NOTE | Routin | 12/06/2015 | | Results for this | | | e | 3:58 AM | | procedure are in the | | | | PST | | results section. | + +--------+ + + + | CAPILLARY BLOOD | Routin | 11/10/2011 | | Results for this | | GLUCOSE (NO CHG), | e | 11:22 AM | | procedure are in the | | POC | | PST | | results section. | + +--------+ + + + | OPERATION RECORD | | 11/10/2011 | | Results for this | | | | 7:37 AM | | procedure are in the | | | | PST | | results section. | + +--------+ + + + | CAPILLARY BLOOD | Routin | 11/10/2011 | | Results for this | | GLUCOSE (NO CHG), | e | 7:36 AM | | procedure are in the | | POC | | PST | | results section. | + +--------+ + + + | CAPILLARY BLOOD | Routin | 11/10/2011 | | Results for this | | GLUCOSE (NO CHG), | e | 6:48 AM | | procedure are in the | | POC | | PST | | results section. | + +--------+ + + + | RESP CARE THERAPY | Routin | 11/10/2011 | | Results for this | | | e | 12:44 AM | | procedure are in the | | | | PST | | results section. | + +--------+ + + + | CAPILLARY BLOOD | Routin | 11/10/2011 | | Results for this | | GLUCOSE (NO CHG), | e | 12:08 AM | | procedure are in the | | POC | | PST | | results section. | + +--------+ + + + | CAPILLARY BLOOD | Routin | 11/09/2011 | | Results for this | | GLUCOSE (NO CHG), | e | 10:41 PM | | procedure are in the | | POC | | PST | | results section. | + +--------+ + + + | CAPILLARY BLOOD | Routin | 11/09/2011 | | Results for this | | GLUCOSE (NO CHG), | e | 10:07 PM | | procedure are in the | | POC | | PST | | results section. | + +--------+ + + + | CAPILLARY BLOOD | Routin | 11/09/2011 | | Results for this | | GLUCOSE (NO CHG), | e | 8:58 PM | | procedure are in the | | POC | | PST | | results section. | + +--------+ + + + | CAPILLARY BLOOD | Routin | 11/09/2011 | | Results for this | | GLUCOSE (NO CHG), | e | 4:48 PM | | procedure are in the | | POC | | PST | | results section. | + +--------+ + + + | CAPILLARY BLOOD | Routin | 11/09/2011 | | Results for this | | GLUCOSE (NO CHG), | e | 2:06 PM | | procedure are in the | | POC | | PST | | results section. | + +--------+ + + + | CAPILLARY BLOOD | Routin | 11/09/2011 | | Results for this | | GLUCOSE (NO CHG), | e | 10:47 AM | | procedure are in the | | POC | | PST | | results section. | + +--------+ + + + | CAPILLARY BLOOD | Routin | 11/09/2011 | | Results for this | | GLUCOSE (NO CHG), | e | 9:43 AM | | procedure are in the | | POC | | PST | | results section. | + +--------+ + + + | CONFIRMATORY ABO/RH | Routin | 11/09/2011 | | Results for this | | | e | 7:33 AM | | procedure are in the | | | | PST | | results section. | + +--------+ + + + | CAPILLARY BLOOD | Routin | 11/09/2011 | | Results for this | | GLUCOSE (NO CHG), | e | 6:25 AM | | procedure are in the | | POC | | PST | | results section. | + +--------+ + + + | ANESTHESIA/SEDATION | | 11/09/2011 | | Results for this | | | | 12:00 AM | | procedure are in the | | | | PST | | results section. | + +--------+ + + + | CYTOGENETICS REPORT | Routin | 11/09/2011 | | Results for this | | | e | | | procedure are in the | | | | | | results section. | + +--------+ + + + | NON CELERY STRIPPER CYTOLOGY | Routin | 11/09/2011 | | Results for this | | | e | | | procedure are in the | | | | | | results section. | + +--------+ + + + | NON CELERY STRIPPER CYTOLOGY | Routin | 11/09/2011 | | Results for this | | | e | | | procedure are in the | | | | | | results section. | + +--------+ + + + | NON CELERY STRIPPER CYTOLOGY | Routin | 11/09/2011 | | Results for this | | | e | | | procedure are in the | | | | | | results section. | + +--------+ + + + | NON CELERY STRIPPER CYTOLOGY | Routin | 11/09/2011 | | Results for this | | | e | | | procedure are in the | | | | | | results section. | + +--------+ + + + | SURGICAL PATHOLOGY | Routin | 11/09/2011 | | Results for this | | | e | | | procedure are in the | | | | | | results section. | + +--------+ + + + documented in this encounter Results PROCEDURE NOTE (12/06/2015 4:13 AM PST) + + | Transcriptions | + + | Lamberto Faculty - 10/27/2011 11:35 AM PST | + + PROCEDURE NOTE (12/06/2015 3:58 AM PST) + + | Transcriptions | + + | Other, Faculty - 11/12/2011 11:34 AM PST | + + CAPILLARY BLOOD GLUCOSE, POC (11/10/2011 11:22 AM PST) + +-------+ + + + [...] + + | [facility] | [address] | [place], [place] | | | [facility] | [address] | [address] | | | TESTS | | | | + + + + + OPERATION RECORD (11/10/2011 7:37 AM PST) + + | Transcriptions | + + | Osiel Rm MD - 11/10/2011 7:31 AM PST [id number] | | [id number] [place] | | [id number] Date: 11/09/2011 Attending Surgeon: Osiel Urban | | Cayetano Rm. Co-Surgeon: Chaparro Merino M.D.Strategy Lead(s): | | Preoperative Diagnosis(es):Retroperitoneal mass, possible lymphoma. 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 Procedures Performed:1. | | Exploratory laparoscopy.2. Drainage of abdominal ascites.3. Abdominal washings.4. | | Biopsy of nodules, right upper and right lower quadrant abdominal villalpando. | | Anesthesia:General endotracheal anesthesia with supplemental local anesthesia using amix | | of 1% Xylocaine and 0.5% Marcaine with epinephrine. Estimated Blood Loss:Minimal. | | Fluids Given:1.5 L of crystalloid. Urine Output:400 cc via Aguilar catheter. | | Pathology:Final pathology pending. Specimens:1. Biopsy of right upper quadrant | | abdominal wall nodules, sent for frozen section.2. Biopsy of right lower | | quadrant abdominal wall nodules, sent for permanent pathology.3. Right upper | | quadrant fluid, sent for cytology.4. Right upper quadrant washings, sent for | | cytology.5. Right lower quadrant/pelvic washings for cytology. Complications:None. | | Drains:None. Findings:1. Diffuse peritoneal studding, sent for frozen section. | | This showed lymphocytic infiltrate suggestive of lymphoma. A lymphoma workup on | | permanent tissue is pending at this time.2. Diffuse ascites, low volume, sent for | | cytology, and washings were also performed.3. Normal-appearing gallbladder. | | Indications:Ms. Christian is a 51-year-old female who presents withabdominal | | pain and distention. Her pain is chronic and was worked up withan ultrasound which | | showed gallbladder polyps, possibly cholesterol. Therewere no stones, gallbladder | | thickening, or duct dilatation; however, therewas an incidentally noted retroperitoneal | | mass which on CT scan appeared denny ill-defined, large, and encasing the mesenteric | | vessels. The patientwas given a preoperative diagnosis of gallbladder polyps and a | | possiblelymphoma. She was referred here for further evaluation. We took her tothe | | operating room today for exploratory laparoscopy. Procedure:With the patient supine on | | the operating table and under generalendotracheal anesthesia, we placed a Aguilar catheter | | under sterileconditions. We abducted the arms on arm boards and secured them to | | theboards with towels and tape. We widely sterilely prepped and draped theabdominal | | wall, performed a surgical pause during which we properlyidentified patient, procedure, | | and position. I infiltrated the periumbilical tissues with local anesthesia. I then | | madea periumbilical incision. This was enlarged with a mosquito clamp, and aVeress | | needle inserted into the peritoneal space. The peritoneal cavitywas insufflated to | | standard pressures, and a 12 mm trocar placed using theStep device. A 30 degree | | laparoscope was inserted, and we examined theabdomen. The patient had a large | | retroperitoneal mass pushing theabdominal contents forward. There were no liver | | metastases, but theperitoneal cavity, bowel, and especially the pelvic peritoneal lining | | werestudded with small, white colored friable nodules. There was also a lowvolume | | whitish ascites present in the pelvis and in the right upper andleft upper quadrants. | | We began by biopsying the right upper quadrant nodules with a biopsydevice. This was | | inserted through a separate 5 mm trocar placed in theright upper quadrant under | | visualization. We used the biopsy device totake several pieces of tissue from the right | | upper quadrant abdominal walland placed these on Telfa. They were sent to Pathology | | for frozen section.We then removed several nodules from the right lower quadrant | | abdominalwall, placed these on Telfa, and sent them to Pathology for permanentsection. | | We inserted the suction finish filer and removed a low volumeascites completely. This | | yielded approximately 100 cc of whitish material,and the entire suction canister was | | sent to cytopathology. At this point of the case, we were contacted by the Pathology | | Departmentsregarding the frozen section. They reported that the nodules showedlymphoid | | infiltrate consistent with lymphoma. There was not enough tissuein the right upper | | quadrant nodules for lymphoma workup, but because we hadsent the left upper quadrant | | nodules, I felt that adequate tissue had beenobtained to complete this workup. I felt | | that clinically this diagnosiswas consistent with lymphomatosis. I was informed that | | the flow could notbe done on the fluid sent, but I requested that the cytology be sent | | anyway in case the diagnosis should change. At this point, we examined the gallbladder | | using a Rolando grasper. Theliver edge was identified, lifted up gently, and the | | gallbladder examined.It was soft, blue colored, and there was no significant | | inflammation.Because I felt that the patient would very likely get chemotherapy, and | | weshould therefore avoid a possible risk of cholecystectomy, we thereforedecided to | | leave the gallbladder in place. Accordingly, we removed the trocars under direct | | visualization and closedthe periumbilical incision with a deep Vicryl U-stitch using | | S-retractors.2 sutures were placed and then tied. This closed the fascia very nicely.We | | therefore closed the skin with running 4-0 Biosyn. The right upperquadrant incision | | was closed with 4-0 Biosyn alone. We cleaned and driedthe incisions, placed | | Steri-Strips, and large adhesive dressings. We thenextubated the patient and took her | | to the recovery room in good conditionhaving tolerated the procedure well. Estimated | | blood loss was minimal.Sponge and needle counts were correct x2. Pursuant to Federal | | Medicare billing regulations, I hereby certify that Iwas present and scrubbed during all | | the barakat portions of this procedure. Modifier 66 Statement:In the absence of a | | qualified resident or fellow, the presence of and myself as co-surgeons, | | was justified. Osiel Rm M.D.WALKER / [id number] / [id number] / [id number] / T: | | 11/09/2011 | |1. Diffuse peritoneal studding, sent for frozen section. This showed | | lymphocytic infiltrate suggestive of lymphoma. A lymphoma workup on | | permanent tissue is pending at this time. | |2. Diffuse ascites, low volume, sent for cytology, and washings were | | also performed. | |3. Normal-appearing gallbladder. | | | | | | | | | |Indications: | |Ms. Christian is a 51-year-old female who presents with | |abdominal pain and distention. Her pain is chronic and was worked up with | |an ultrasound which showed gallbladder polyps, possibly cholesterol. There | |were no stones, gallbladder thickening, or duct dilatation; however, there | |was an incidentally noted retroperitoneal mass which on CT scan appeared to | |be ill-defined, large, and encasing the mesenteric vessels. The patient | |was given a preoperative diagnosis of gallbladder polyps and a possible | |lymphoma. She was referred here for further evaluation. We took her to | |the operating room today for exploratory laparoscopy. | | | | | |Procedure: | |With the patient supine on the operating table and under general | |endotracheal anesthesia, we placed a Aguilar catheter under sterile | |conditions. We abducted the arms on arm boards and secured them to the | |boards with towels and tape. We widely sterilely prepped and draped the | |abdominal wall, performed a surgical pause during which we properly | |identified patient, procedure, and position. | | | | | |I infiltrated the periumbilical tissues with local anesthesia. I then made | |a periumbilical incision. This was enlarged with a mosquito clamp, and a | |Veress needle inserted into the peritoneal space. The peritoneal cavity | |was insufflated to standard pressures, and a 12 mm trocar placed using the | |Step device. A 30 degree laparoscope was inserted, and we examined the | |abdomen. The patient had a large retroperitoneal mass pushing the | |abdominal contents forward. There were no liver metastases, but the | |peritoneal cavity, bowel, and especially the pelvic peritoneal lining were | |studded with small, white colored friable nodules. There was also a low | |volume whitish ascites present in the pelvis and in the right upper and | |left upper quadrants. | | | | | |We began by biopsying the right upper quadrant nodules with a biopsy | |device. This was inserted through a separate 5 mm trocar placed in the | |right upper quadrant under visualization. We used the biopsy device to | |take several pieces of tissue from the right upper quadrant abdominal wall | |and placed these on Telfa. They were sent to Pathology for frozen section. | |We then removed several nodules from the right lower quadrant abdominal | |wall, placed these on Telfa, and sent them to Pathology for permanent | |section. We inserted the suction finish filer and removed a low volume | |ascites completely. This yielded approximately 100 cc of whitish material, | |and the entire suction canister was sent to cytopathology. | | | | | |At this point of the case, we were contacted by the Pathology Departments | |regarding the frozen section. They reported that the nodules showed | |lymphoid infiltrate consistent with lymphoma. There was not enough tissue | |in the right upper quadrant nodules for lymphoma workup, but because we had | |sent the left upper quadrant nodules, I felt that adequate tissue had been | |obtained to complete this workup. I felt that clinically this diagnosis | |was consistent with lymphomatosis. I was informed that the flow could not | |be done on the fluid sent, but I requested that the cytology be sent any | |way in case the diagnosis should change. | | | | | |At this point, we examined the gallbladder using a Rolando grasper. The | |liver edge was identified, lifted up gently, and the gallbladder examined. | |It was soft, blue colored, and there was no significant inflammation. | |Because I felt that the patient would very likely get chemotherapy, and we | |should therefore avoid a possible risk of cholecystectomy, we therefore | |decided to leave the gallbladder in place. | | | | | |Accordingly, we removed the trocars under direct visualization and closed | |the periumbilical incision with a deep Vicryl U-stitch using S-retractors. | |2 sutures were placed and then tied. This closed the fascia very nicely. | |We therefore closed the skin with running 4-0 Biosyn. The right upper | |quadrant incision was closed with 4-0 Biosyn alone. We cleaned and dried | |the incisions, placed Steri-Strips, and large adhesive dressings. We then | |extubated the patient and took her to the recovery room in good condition | |having tolerated the procedure well. Estimated blood loss was minimal. | |Sponge and needle counts were correct x2. | | | | | |Pursuant to Federal Medicare billing regulations, I hereby certify that I | |was present and scrubbed during all the barakat portions of this procedure. | | | | | |Modifier 66 Statement: | |In the absence of a qualified resident or fellow, the presence of | |Wilber and myself as co-surgeons, was justified. | | | | | | | | | |Osiel Rm M.D. | |JTV / HS | |[id number] / [id number] / [id number] / | | | | | | | | | | | | | | | | | | | | | + + CAPILLARY BLOOD GLUCOSE, POC (11/10/2011 7:36 AM PST) + +-------+ + + + [...] | [facility] | [address] | [place], [place] | | | [facility] | [address] | [address] | | | TESTS | | | | + + + + + CAPILLARY BLOOD GLUCOSE, POC (11/10/2011 6:48 AM PST) + +-------+ + + + | Component | Value | Ref Range | Performed | Pathologist | | | | | At | Signature | + +-------+ + + + | BLOOD | 70 | 60 - 99 mg/dL | [facility] [...] | [facility] | [address] | [place], [place] | | | [facility] [facility] | [facility] | [address] | | | TESTS | | | | + + + + + RESP CARE THERAPY (11/10/2011 12:44 AM PST) + + + + +--------- -----+ | Component | Value | Ref Range | Performed | Patholog ist | | | | | At | Signatur e | + + + + +--------- -----+ | RESPIRATORY | Oxygen device on | | [facility] | | | CARE | standby, nasal canula. | | RESPIRATORY | | | | Electronically | | THERAPY | | | | Signed by: Jonathan | | | | | | Isabel, | | | | | | | | | | | | | | | | | | | | | | | | | | | | | |Electronically Signed by: Jonathan Hall, | | | | + + + + +--------- -----+ + + | Specimen | + + | | + + + + + + + | Performing | Address | City/State/Zipcode | Phone Number | | Organization | | | | + + + + + | [facility] | [address] | [place], [place] | | | THERAPY | [address] | [address] | | + + + + + CAPILLARY BLOOD GLUCOSE, POC (11/10/2011 12:08 AM PST) + +-------+ + + + | Component | Value | Ref Range | Performed | Pathologist | | | | | At | Signature | + +-------+ + + + | BLOOD | 79 | 60 - 99 mg/dL | [facility] [...] + | [facility] | [address] | [place], [place] | | | [facility] | [address] | [address] | | | TESTS | | | | + + + + + CAPILLARY BLOOD GLUCOSE, POC (11/09/2011 10:41 PM PST) + +-------+ + + + [...] | [facility] | [address] | [place], [place] | | | [facility] | [address] | [address] | | | TESTS | | | | + + + + + CAPILLARY BLOOD GLUCOSE, POC (11/09/2011 10:07 PM PST) + +-------+ + + + | Component | Value | Ref Range | Performed | Pathologist | | | | | At | Signature | + +-------+ + + + | BLOOD | 66 | 60 - 99 mg/dL | [facility] [...] | [facility] | [address] | [place], [place] | | | [facility] | [address] | [address] | | | TESTS | | | | + + + + + CAPILLARY BLOOD GLUCOSE, POC (11/09/2011 8:58 PM PST) + +-------+ + + + | Component | Value | Ref Range | Performed | Pathologist | | | | | At | Signature | + +-------+ + + + | BLOOD | 70 | 60 - 99 mg/dL | [facility] [...] + | [facility] | [address] | [place], [place] | | | [facility] | [address] | [address] | | | TESTS | | | | + + + + + CAPILLARY BLOOD GLUCOSE, POC (11/09/2011 4:48 PM PST) + +-------+ + + + | Component | Value | Ref Range | Performed | Pathologist | | | | | At | Signature | + +-------+ + + + | BLOOD | 86 | 60 - 99 mg/dL | [facility] [...] | [facility] | [address] | [place], [place] | | | [facility] | [address] | [address] | | | TESTS | | | | + + + + + CAPILLARY BLOOD GLUCOSE, POC (11/09/2011 2:06 PM PST) + +-------+ + + + | Component | Value | Ref Range | Performed | Pathologist | | | | | At | Signature | + +-------+ + + + | BLOOD | 97 | 60 - 99 mg/dL | [facility] [...] + | [facility] | [address] | [place], [place] | | | [facility] | [facility] | [address] | | | TESTS | | | | + + + + + CAPILLARY BLOOD GLUCOSE, POC (11/09/2011 10:47 AM PST) + +---------+ + + + | Component | Value | Ref Range | Performed | Pathologist | | | | | At | Signature | + +---------+ + + + | BLOOD | 105 (H) | 60 - 99 mg/dL | [facility] | | | GLUCOSE, | | [...] + | [facility] | [address] | [place], [place] | | | [facility] | [address] | [address] | | | TESTS | | | | + + + + + CAPILLARY BLOOD GLUCOSE, POC (11/09/2011 9:43 AM PST) + +-------+ + + + | Component | Value | Ref Range | Performed | Pathologist | | | | | At | Signature | + +-------+ + + + | BLOOD | 88 | 60 - 99 mg/dL [...] + + | Performing | Address | City/[facility] | Phone Number | | Organization | | | | + + + + + | [facility] | [address] | [place], [place] | | | [facility] | [address] | [address] | | | TESTS | | | | + + + + + CONFIRMATORY ABO/RH (11/09/2011 7:33 AM PST) + + + + + [...] | + + + + + | [facility] | [address] | [place] [address] | | | PATHOLOGY | [address] | | | + + + + + CAPILLARY BLOOD GLUCOSE, POC (11/09/2011 6:25 AM PST) + +-------+ + + + | Component | Value | Ref Range | Performed | Pathologist | | | | | At | Signature | + +-------+ + + + | BLOOD | 90 | 60 - 99 mg/dL | [facility] - | | | GLUCOSE, | | [...] + + + | [facility] | [address] | [place], [place] | | | [facility] | [facility] | [address] | | | TESTS | | | | + + + + + ANESTHESIA/SEDATION (11/09/2011 12:00 AM PST) + + + | Narrative | Performed At | + + + | | | + + + + + | Transcriptions | + + | Other, Faculty - 11/09/2011 10:14 AM PST | + + CYTOGENETICS REPORT (11/09/2011) + + + + + + | Component | Value | Ref Range | Performed | Pathologist | | | | | At | Signature | + + + + + + | CHROMOSOME | Cells in Media: | | [facility] | | | REPORT | Fluorescent In situ | | DIAGNOSTIC | | | | hybridization (FISH)- | | | | | | onlySupplemental | | LABORATORIE | | | | indications: High grade | | S | | | | B-Cell Lymphoma | | | | | | FISH Results:Abnormal | | | | | | Chromosome Results: | | | | | | NoneKARYOTYPE RESULTS: | | | | | | See below | | | | | | IMPRESSIONS AND | | | | | | RECOMMENDATIONS:Fluoresc | | | | | | ent in situ | | | | | | hybridization (FISH) was | | | | | | performed with the | | | | | | probe setsand number of | | | | | | cells scored listed | | | | | | below.With the IGH/MYC | | | | | | probe set, 55% of cells | | | | | | had the dual fusion | | | | | | signal patternconsistent | | | | | | with t(8;14) and | | | | | | IGH/MYC fusion.(An extra | | | | | | IGH signal was observed | | | | | | with the IGH/BCL2 probe | | | | | | in 54% of cells,and a | | | | | | split signal for MYC was | | | | | | observed in 69% of | | | | | | cells; both of | | | | | | thesesignal patterns are | | | | | | consistent with the | | | | | | IGH/MYC fusion described | | | | | | above.) Results | | | | | | with BCL6 were within | | | | | | the normal limits | | | | | | established by | | | | | | ourlaboratory. | | | | | | (Comment: This FISH | | | | | | study assesses only the | | | | | | probe-specific regions | | | | | | listedbelow. G-banded | | | | | | chromosome analysis is | | | | | | recommended to assess | | | | | | the fullkaryotype for | | | | | | potential clonal | | | | | | abnormalities.) | | | | | | Thank you very much for | | | | | | your referral. If you | | | | | | have any questions | | | | | | regardingthis report or | | | | | | future cytogenetic | | | | | | testing issues, please | | | | | | feel free tocontact | | | | | | us.INTERPHASE FISH | | | | | | ANALYSIS SUMMARY: | | | | | | Cells Scored: | | | | | | 100 Probe(s): More | | | | | | MYC (8q24) | | | | | | break-apartCells Scored: | | | | | | 100 | | | | | | Probe(s): More BCL6 | | | | | | (3q27) break-apartCells | | | | | | Scored: 100 | | | | | | Probe(s): More LSI | | | | | | IGH (14q32) (SG) / | | | | | | BCL2(18q21) (SO) | | | | | | t(14;18)Cells Scored: | | | | | | 100 Probe(s): | | | | | | More IGH | | | | | | (14q32)(SG)/MYC | | | | | | (8q24)(SO) /CEP 8(SA) | | | | | | t(8;14) This test | | | | | | was developed and its | | | | | | performance | | | | | | characteristics | | | | | | determined bythe [facility] | | | | | | [facility] | | | | | | as required by the CLIA | | | | | | '88 regulations.It has | | | | | | not been cleared or | | | | | | approved for specific | | | | | | uses by the U.[place]. Food | | | | | | andDrug Administration. | | | | | | Preliminary report | | | | | | date: 11/13/2011The | | | | | | clinical interpretation | | | | | | was made by the clinical | | | | | | baker. | | | | | | Rendering | | | | | | Diagnostician: Hong | | | | | | Garry PhD, ABMG, | | | | | | FACMGClinical | | | | | | CytogeneticistElectronic | | | | | | ally Signed 11/13/2011 | | | | | | 3:45PMRendering | | | | | | Diagnostician: Henrique | | | | | | Al LOZADA, AB, | | | | | | FACMGClinical | | | | | | GeneticistElectronically | | | | | | Signed 11/13/2011 | | | | | | 5:30PM | | | | + + + + + + + + | Specimen | + + | | + + + + + + + | Performing | Address | City/State/Zipcode | Phone Number | | Organization | | | | + + + + + | [facility] | [address] | [place] [address] | | | DIAGNOSTIC | [address] | | | | LABORATORIES | | | | + + + + + NON CELERY STRIPPER CYTOLOGY (11/09/2011) + + + + + + | Component | Value | Ref Range | Performed | Pathologist | | | | | At | Signature | + + + + + + | NON-CELERY STRIPPER | SOURCE OF SPECIMEN:A | | [facility] | | | CYTOLOGY | Pelvic WashingGROSS | | DEPARTMENT | | | | DESCRIPTION: 35 ml | | OF | | | | bloody fluid: 1 | | PATHOLOGY | | | | SurePath slide and a | | | | | | cell | | | | | | blockprepared.CLINICAL | | | | | | HISTORY: | | | | | | Retroperitoneal fluid | | | | | | | | | | | | Diagnosis:Suspicious for | | | | | | lymphoma. | | | | | | Adequacy:Satisfactory | | | | | | for evaluation. | | | | | | Comments:Please | | | | | | correlate with flow | | | | | | cytometry and surgical | | | | | | specimen [id number] | | | | | | My electronic signature | | | | | [...] Diagnostician: | | | | | | Jonathan Poole | | | | | | [place](ASCP)Certified Legal Secretary Specialist | | | | | | Electronically Signed | | | | | | 11/10/2011 | | | | | | 10:40AMRendering | | | | | | Diagnostician: Bella | | | | | | Michael | | | | | | Susan | | | | | | carolyn Vick 11/11/2011 | | | | | | 10:55AM | | | | + + + + + + + + | Specimen | + + | | + + + + + + + | Performing | Address | City/State/Zipcode | Phone Number | | Organization | | | | + + + + + | [facility] | [address] | [place] [address] | | | PATHOLOGY | [address] | | | + + + + + NON CELERY STRIPPER CYTOLOGY (11/09/2011) + + + + + + | Component | Value | Ref Range | Performed | Pathologist | | | | | At | Signature | + + + + + + | NON-CELERY STRIPPER | SOURCE OF SPECIMEN:A | | [facility] | | | CYTOLOGY | Left Upper Quadrant | | DEPARTMENT | | | | WashingGROSS | | OF | | | | DESCRIPTION: 30 ml | | PATHOLOGY | | | | blood tinged fluid: 1 | | | | | | SurePath slide and a | | | | | | cellblock | | | | | | prepared.CLINICAL | | | | | | HISTORY: | | | | | | Retroperitoneal mass | | | | | | | | | | | | Diagnosis:Suspicious for | | | | | | lymphoma. | | | | | | Adequacy:Satisfactory | | | | | | for evaluation. | | | | | | Comments:Please | | | | | | correlate with flow | | | | | | cytometry and surgical | | | | | | specimen [id number] | | | | | | My electronic signature | | | | | [...] Diagnostician: | | | | | | Jonathan Poole | | | | | | CT(ASCP)Certified Legal Secretary Specialist | | | | | | Electronically Signed | | | | | | 11/10/2011 | | | | | | 10:38AMRendering | | | | | | Diagnostician: Bella | | | | | | Michael | | | | | | Jorgei | | | | | | carolyn Signed 11/11/2011 | | | | | | 10:54AM | | | | + + + + + + + + | Specimen | + + | | + + + + + + + | Performing | Address | City/State/Zipcode | Phone Number | | Organization | | | | + + + + + | [facility] | [address] | [place] [address] | | | PATHOLOGY | [address] | | | + + + + + NON CELERY STRIPPER CYTOLOGY (11/09/2011) + + + + + + | Component | Value | Ref Range | Performed | Pathologist | | | | | At | Signature | + + + + + + | NON-CELERY STRIPPER | SOURCE OF SPECIMEN:A | | [facility] | | | CYTOLOGY | Right Upper Quadrant | | DEPARTMENT | | | | Washing[facility]OSS | | OF | | | | DESCRIPTION: 30 ml | | PATHOLOGY | | | | blood tinged fluid: 1 | | | | | | SurePath slide and a | | | | | | cellblock | | | | | | prepared.CLINICAL | | | | | | HISTORY: | | | | | | Retroperitoneal mass | | | | | | | | | | | | Diagnosis:Suspicious for | | | | | | lymphoma. | | | | | | Adequacy:Satisfactory | | | | | | for evaluation. | | | | | | Comments:Please | | | | | | correlate with flow | | | | | | cytometry and surgical | | | | | | specimen [id number] | | | | | | My electronic signature | | | | | [...] Diagnostician: | | | | | | Jonathan Poole | | | | | | CT(ASCP)Certified Legal Secretary Specialist | | | | | | Electronically Signed | | | | | | 11/10/2011 | | | | | | 10:37AMRendering | | | | | | Diagnostician: Bella | | | | | | Michael | | | | | | ClintPathologistKarli | | | | | | carolyn Signed 11/11/2011 | | | | | | 10:54AM | | | | + + + + + + + + | Specimen | + + | | + + + + + + + | Performing | Address | City/State/Zipcode | Phone Number | | Organization | | | | + + + + + | [facility] | [address] | [place] [address] | | | PATHOLOGY | [address] | | | + + + + + NON CELERY STRIPPER CYTOLOGY (11/09/2011) + + + + + + | Component | Value | Ref Range | Performed | Pathologist | | | | | At | Signature | + + + + + + | NON-CELERY STRIPPER | SOURCE OF SPECIMEN:A | | [facility] | | | CYTOLOGY | Peritoneal FluidGROSS | | DEPARTMENT | | | | DESCRIPTION: 1000 ml | | OF | | | | cloudy brown/red fluid: | | PATHOLOGY | | | | 1 SurePath slide and | | | | | | acell block | | | | | | prepared.CLINICAL | | | | | | HISTORY: | | | | | | Retroperitoneal Mass | | | | | | | | | | | | Diagnosis:Suspicious for | | | | | | lymphoma. | | | | | | Adequacy:Satisfactory | | | | | | for evaluation. | | | | | | Comments:Please | | | | | | correlate with flow | | | | | | cytometry and surgical | | | | | | specimen [id number] | | | | | | My electronic signature | | | | | [...] Diagnostician: | | | | | | Jonathan Poole | | | | | | [place]([facility])Certified Legal Secretary Specialist | | | | | | Electronically Signed | | | | | | 11/10/2011 | | | | | | 10:35AMRendering | | | | | | Diagnostician: Bella | | | | | | Michael | | | | | | ClintPathologistKarli | | | | | | carolyn Signed 11/11/2011 | | | | | | 10:53AM | | | | + + + + + + + + | Specimen | + + | | + + + + + + + | Performing | Address | City/State/Zipcode | Phone Number | | Organization | | | | + + + + + | [facility] | [address] | [place] [address] | | | PATHOLOGY | [address] | | | + + + + + SURGICAL PATHOLOGY (11/09/2011) + + + + + + | Component | Value | Ref Range | Performed | Pathologist | | | | | At | Signature | + + + + + + | SURGICAL | SOURCE OF SPECIMEN:A | | [facility] | | | PATHOLOGY | Right abdominal wall | | DEPARTMENT | | | | FSSOURCE OF SPECIMEN:B | | OF | | | | RLQ abdominal | | PATHOLOGY | | | | wallSOURCE OF SPECIMEN:C | | | | | | Peritoneal fluid for | | | | | | cytologySOURCE OF | | | | | | SPECIMEN:D Right upper | | | | | | quadrant washing for | | | | | | cytologySOURCE OF | | | | | | SPECIMEN:E Left upper | | | | | | quadrant washing for | | | | | | cytologySOURCE OF | | | | | | SPECIMEN:F Pelvic | | | | | | washing for cytology | | | | | | Final Pathologic | | | | | | Diagnosis:A: Right | | | | | | abdominal wall, biopsy: | | | | | | - High grade B | | | | | | cell lymphoma, | | | | | | consistent with Burkitt | | | | | | lymphoma (seecomment) | | | | | | B: Right lower | | | | | | quadrant abdominal wall, | | | | | | biopsy: - High | | | | | | grade B cell lymphoma, | | | | | | consistent with Burkitt | | | | | | lymphoma (seecomment) | | | | | | - Immunophenotype: | | | | | | Bcl-6, CD10, CD19, | | | | | | CD20, CD22, and sKappa | | | | | | lightchain positive | | | | | | - EBV positive by in | | | | | | situ hybridization | | | | | | - Ki-67 proliferative | | | | | | rate greater than 90% | | | | | | C: Peritoneal | | | | | | fluid-sent to Cytology: | | | | | | - No tissue | | | | | | received in Surgical | | | | | | Pathology, see separate | | | | | | Cytologyreport D: | | | | | | Right upper quadrant | | | | | | washing-sent to | | | | | | Cytology: - No | | | | | | tissue received in | | | | | | Surgical Pathology, see | | | | | | separate Cytologyreport | | | | | | E: Left upper | | | | | | quadrant washing-sent to | | | | | | Cytology:- No tissue | | | | | | received in Surgical | | | | | | Pathology, see separate | | | | | | Cytology report F: | | | | | | Pelvic washing-sent | | | | | | to Cytology:-No tissue | | | | | | received in Surgical | | | | | | Pathology, see separate | | | | | | Cytology report | | | | | | Comment: | | | | | | Morphologically the | | | | | | neoplastic cells are not | | | | | | entirelycharacteristic | | | | | | for Burkitt lymphoma; | | | | | | however, the | | | | | | proliferative | | | | | | rate,immunophenotype, | | | | | | and cytogenetic findings | | | | | | are typical. | | | | | | Preliminarycytogenetic | | | | | | findings (FISH) show | | | | | | the presence of t(8;14). | | | | | | Please see | | | | | | finalcytogenetics report | | | | | | when complete. The | | | | | | case was shared at | | | | | | anintradepartmental | | | | | | consensus conference and | | | | | | Phil Wren, | | | | | | Leslee Bowles and | | | | | | Sun agree. Dr. Robins | | | | | | Candice was notified on | | | | | | 11/11/11 of thediagnosis. | | | | | | Case seen | | | | | | by:Michelle Cabrera, | | | | | | M.D./Surgical Pathology | | | | | | ResidentMoises Huerta, | | | | | | M.D./HematopathologistT: | | | | | | 11/11/11:randy | | | | | | Intraoperative Consult | | | | | | (Frozen Section) | | | | | | Diagnosis:Right | | | | | | abdominal wall (specimen | | | | | | A):- Atypical lymphoid | | | | | | infiltrate, suspicious | | | | | | for lymphoma. Please | | | | | | sendadditional fresh | | | | | | tissue for lymphoma | | | | | | workup | | | | | | Intraoperative Consult | | | | | | Diagnosis confirmed by: | | | | | | Hue Murillo, | | | | | | M.D./SurgicalPathology | | | | | | | | | | | | Tico MAlesha/Pathologist | | | | | | Clinical | | | | | | History:The patient is a | | | | | | 51-year-old female with | | | | | | retroperitoneal mass. | | | | | | Per Epic:Presented | | | | | | with nausea and | | | | | | vomiting, ultrasound | | | | | | shows a retroperitoneal | | | | | | masssurrounding the | | | | | | pancreas, concerning for | | | | | | lymphoma. Gross | | | | | | Description:Received are | | | | | | 2 specimens fresh in | | | | | | containers labeled with | | | | | | the patient'sname | | | | | | (initials RJ) and: | | | | | | A: Right abdominal | | | | | | wall-FS: Received is a | | | | | | 0.7 x 0.4 x 0.3 cm, | | | | | | soft,fields-pink tissue. | | | | | | The entire specimen is | | | | | | used for frozen section | | | | | | diagnosisand | | | | | | resubmitted. B: | | | | | | Right abdominal wall: | | | | | | Received are 2 soft, | | | | | | ifelds-pink tissues, 0.7 x | | | | | | 0.5x 0.2 cm in | | | | | | aggregate. One-half of | | | | | | each tissue is | | | | | | submitted to | | | | | | flowcytometry and the | | | | | | remaining specimen is | | | | | | entirely submitted. | | | | | | C: Peritoneal | | | | | | fluid-sent to Cytology: | | | | | | No tissue received in | | | | | | SurgicalPathology. | | | | | | D: Right upper | | | | | | quadrant washing-sent to | | | | | | Cytology: No tissue | | | | | | received inSurgical | | | | | | Pathology. E: | | | | | | Left upper quadrant | | | | | | washing-sent to | | | | | | Cytology: No tissue | | | | | | received inSurgical | | | | | | Pathology. F: | | | | | | Pelvic washing-sent to | | | | | | Cytology: No tissue | | | | | | received in | | | | | | SurgicalPathology. | | | | | | Cassette Index:A: | | | | | | Right abdominal | | | | | | wall-FS:A1, frozen | | | | | | section residueB: | | | | | | Right abdominal | | | | | | wall:B1, wrappedC: | | | | | | Peritoneal fluid-sent | | | | | | to Cytology:No tissue | | | | | | received in Surgical | | | | | | PathologyD: Right | | | | | | upper quadrant | | | | | | washing-sent to | | | | | | Cytology:No tissue | | | | | | received in Surgical | | | | | | PathologyE: Left upper | | | | | | quadrant washing-sent | | | | | | to Cytology:No tissue | | | | | | received in Surgical | | | | | | PathologyF: Pelvic | | | | | | washing-sent to | | | | | | Cytology:No tissue | | | | | | received in Surgical | | | | | | PathologyKRK/randy | | | | | | Flow Cytometric Analysis | | | | | | Microscopic | | | | | | Description:Specimen A: | | | | | | Right abdominal wall. | | | | | | The specimen shows a | | | | | | diffuseaccumulation of | | | | | | large lymphoid cells | | | | | | with minimal amounts of | | | | | | eosinophiliccytoplasm | | | | | | and high N:C ratios. | | | | | | Occasional apoptotic | | | | | | cells are identified.The | | | | | | permanent specimen, B | | | | | | shows better histology | | | | | | with a | | | | | | diffuseproliferation of | | | | | | lymphoid cells with high | | | | | | N:C ratios, nuclei that | | | | | | are roundto oval with | | | | | | somewhat irregular | | | | | | nuclear contours, fine | | | | | | chromatin, andseveral | | | | | | small nucleoli. There | | | | | | are mitotic figures that | | | | | | are increased innumber | | | | | | as well as apoptotic | | | | | | cells, although not a | | | | | | classic starry | | | | | | skypattern. There are | | | | | | occasional aggregates of | | | | | | macrophages with | | | | | | eosinophiliccytoplasm. | | | | | | Immunologic | | | | | | Analysis: The | | | | | | analysis was performed | | | | | | by flow cytometry on | | | | | | theright abdominal wall | | | | | | (specimen A). The | | | | | | tissue yielded 2 x 106 | | | | | | cells with68% viability. | | | | | | A monoclonal B cell | | | | | | population is identified | | | | | | withimmunophenotype: | | | | | | CD10, CD19, CD20, | | | | | | CD22, and sKappa light | | | | | | chain | | | | | | positive.Approximately | | | | | | 52% of cells are | | | | | | lymphocytes, composed of | | | | | | 39% T cells, 55% | | | | | | Bcells, and 6% NK cells. | | | | | | The T cells have a | | | | | | CD4:CD8 ratio of 1.4:1 | | | | | | and noaberrant antigen | | | | | | expression. The B | | | | | | cells are essentially | | | | | | all part of | | | | | | themonoclonal | | | | | | population. Please see | | | | | | below of antibodies | | | | | | tested. Antibodies | | | | | | Tested CD2 CD3 | | | | | | CD4 CD5 CD7 CD8 | | | | | | CD10 [id number] CD22 | | | | | | CD23 CD25 CD34 CD38 CD45 | | | | | | [id number] | | | | | | sKappa sLambda | | | | | | Immunohistochemical | | | | | | Stains: Additional | | | | | | immunologic analysis was | | | | | | performedon the right | | | | | | lower quadrant abdominal | | | | | | wall (specimen B) using | | | | | | antibodies toCD3, CD5, | | | | | | CD10, CD20, CD21, CD34, | | | | | | Bcl-2, Bcl-6, Ki-67, | | | | | | MUM1, p53, and TdT.The | | | | | | lymphoma is positive for | | | | | | Bcl-6, CD10 and CD20 | | | | | | and negative for | | | | | | Bcl-2,CD5, CD34 and TdT. | | | | | | Rare cells are MUM1 | | | | | | positive. Background T | | | | | | cells stainwith CD3, CD5 | | | | | | and Bcl-2. CD21 shows a | | | | | | rare residual follicle | | | | | | network. TheKi-67 | | | | | | proliferative rate is | | | | | | greater than 90%. | | | | | | In Situ Hybridization: | | | | | | Molecular probes were | | | | | | used in separate in | | | | | | situhybridization | | | | | | analyses for | | | | | | Ignacio-Palmer virus | | | | | | encoded mRNA. | | | | | | Appropriatecontrols, | | | | | | including RNA controls, | | | | | | were performed and test | | | | | | validityconfirmed. The | | | | | | lymphoma is EBV | | | | | | positive. (Analyte | | | | | | specific reagents are | | | | | | used in many laboratory | | | | | | tests necessary | | | | | | [facility] | | | | | | and generally do not | | | | | | require FDA approval. | | | | | | This testwas developed | | | | | | and its performance | | | | | | characteristics | | | | | | determined by | | | | | | [facility]. It has | | | | | | not been cleared or | | | | | | approved by the [place] | | | | | | Food and | | | | | | DrugAdministration.) | | | | | | My electronic | | | | | | signature indicates that | | | | | | I have personally | | | | | | reviewed alldiagnostic | | | | | | slides, the gross and/or | | | | | | microscopic portion of | | | | | | thisreport and | | | | | | formulated the final | | | | | | diagnosis. | | | | | | Rendering Diagnostician: | | | | | | Moises Huerta | | | | | | MAleshaPathologistElectroni | | | | | | carolyn Signed 11/13/2011 | | | | | | 3:05PM | | | | + + + + + + + + | Specimen | + + | | + + + + + + + | Performing | Address | City/State/Zipcode | Phone Number | | Organization | | | | + + + + + | [facility] | [address] | [place] [address] | | | PATHOLOGY | [address] | | | + + + + + documented in this encounter Visit Diagnoses + + | Diagnosis | + + | Retroperitoneal mass - Primary Abdominal or pelvic swelling, mass or lump, | | unspecified site | + + documented in this encounter Administered Medications + +--------+ +--------+------+------+ | Medication Order | MAR | Action | Dose | Rate | Site | | | Action | Date | | | | + +--------+ +--------+------+------+ | albuterol 0.083% (aka | Given | 11/09/19 | 2.5 mg | | | | PROVENTIL,VENTOLIN) 2.5 mg /3 mL | | 12 10:10 | | | | | (0.083 %) nebulizer solution 1 | | AM PST | | | | | dose, Starting 11/09/11 at | | | | | | | 1016, Until 11/09/11 at 1010 | | | | | | + +--------+ +--------+------+------+ +---+---+ | | | +---+---+ + +-------+ +--------+---+---+ | albuterol 0.5% (aka | Given | 11/09/19 | 2.5 mg | | | | PROVENTIL,VENTOLIN) 5 mg/mL | | 12 10:10 | | | | | nebulizer solution 2.5 mg 2.5 | | AM PST | | | | | mg, inhalation, ONCE, 1 dose, Mon | | | | | | | 11/09/11 at 1030 | | | | | | + +-------+ +--------+---+---+ +---+---+ | | | +---+---+ + +-------+ +-------+---+---+ | aspirin chewable tablet 81 mg | Given | 11/10/19 | 81 mg | | | | 81 mg, oral, DAILY, First dose on | | 12 7:57 | | | | | 11/09/11 at 1300, Until | | AM PST | | | | | Discontinued | | | | | | + +-------+ +-------+---+---+ +-------+ +-------+---+---+ | Given | 11/09/19 | 81 mg | | | | | 12 7:47 | | | | | | PM PST | | | | +-------+ +-------+---+---+ +---+---+ | | | +---+---+ + +---------+ +--------+--------+---+ | fentaNYL citrate (PF) (aka | New Bag | 11/09/19 | 50 mcg | mL/hr | | | SUBLIMAZE) injection 50 mcg 50 | | 12 10:40 | | | | | mcg, intravenous, POSTPROCEDURE | | AM PST | | | | | PRN, Starting Wed11/09/11 at 1009, | | | | | | | Until Wed11/09/11 at 1227, | | | | | | | moderate pain | | | | | | + +---------+ +--------+--------+---+ +---------+ +--------+--------+---+ | New Bag | 11/09/19 | 50 mcg | mL/hr | | | | 12 10:30 | | | | | | AM PST | | | | +---------+ +--------+--------+---+ + +---+ | | | + +---+ | fentaNYL citrate (PF) (aka | | | SUBLIMAZE) injection 1 dose, | | | Starting Wed11/09/11 at 1035, | | | Until Wed11/09/11 at 1030 | | + +---+ | | | + +---+ + +-------+ +------+---+---+ | glipiZIDE ER (aka GLUCOTROL XL) | Given | 11/10/19 | 5 mg | | | | tablet 5 mg 5 mg, oral, DAILY, | | 12 7:57 | | | | | First dose on Wed11/09/11 at 1300, | | AM PST | | | | | Until Discontinued | | | | | | + +-------+ +------+---+---+ +---+---+ | | | +---+---+ + +-------+ +------+---+---+ | glucose chewable tablet 16 g | Given | 11/09/19 | 16 g | | | | 16 g, oral, EVERY 15 MINUTES | | 12 10:23 | | | | | NEEDED, Starting 11/09/11 at | | PM PST | | | | | 1309, Until Wed11/10/11 at 1855, | | | | | | | hypoglycemia, CBG less than 70 | | | | | | | mg/dL | | | | | | + +-------+ +------+---+---+ +---+---+ | | | +---+---+ + +-------+ +---------+---+---+ | HYDROcodone-acetaminophen (aka | Given | 11/10/19 | 2 | | | | NORCO) 5-325 mg tablet 1-2 Tab | | 12 12:10 | tablets | | | | 1-2 tablet, oral, EVERY 6 HOURS | | PM PST | | | | | NEEDED, Starting 11/09/11 at | | | | | | | 1000, Until Wed11/10/11 at 1855, | | | | | | | moderate pain | | | | | | + +-------+ +---------+---+---+ +-------+ +---------+---+---+ | Given | 11/10/19 | 2 | | | | | 12 6:37 | tablets | | | | | AM PST | | | | +-------+ +---------+---+---+ | Given | 11/09/19 | 2 | | | | | 12 9:00 | tablets | | | | | PM PST | | | | +-------+ +---------+---+---+ +---+---+ | | | +---+---+ + +---------+ +--------+--------+---+ | HYDROmorphone (aka DILAUDID) | New Bag | 11/09/19 | 0.5 mg | mL/hr | | | injection 0.2-0.5 mg 0.2-0.5 mg, | | 12 10:40 | | | | | intravenous, POSTPROCEDURE PRN, | | AM PST | | | | | Starting 11/09/11 at 1009, | | | | | | | Until Wed11/09/11 at 1227, | | | | | | | moderate pain | | | | | | + +---------+ +--------+--------+---+ +---------+ +--------+--------+---+ | New Bag | 11/09/19 | 0.5 mg | mL/hr | | | | 12 10:30 | | | | | | AM PST | | | | +---------+ +--------+--------+---+ + +---+ | | | + +---+ | HYDROmorphone (aka DILAUDID) | | | injection 1 dose, Starting Mon | | | 11/09/11 at 1034, Until Wed11/09/11 | | | at 1030 | | + +---+ | | | + +---+ + +-------+ +---------+---+---+ | insulin glargine (aknicolas LANTUS) | Given | 11/09/19 | 8 Units | | | | injection 8 Units 8 Units, | | 12 11:55 | | | | | subcutaneous, AT BEDTIME, First | | PM PST | | | | | dose (after last modification) on | | | | | | | 11/09/11 at 2315, Until | | | | | | | Discontinued | | | | | | + +-------+ +---------+---+---+ +---+---+ | | | +---+---+ + +---------+ + + +---+ | lactated ringers IV 10 mL/hr, | New Bag | 11/09/19 | 10 mL/hr | 10 mL/hr | | | intravenous, PROCEDURE | | 12 6:39 | | | | | CONTINUOUS, Starting 11/09/11 | | AM PST | | | | | at 0615, Until Wed11/09/11 at 1108 | | | | | | + +---------+ + + +---+ +---+---+ | | | +---+---+ + +---------+ + + +---+ | lactated ringers IV 75 mL/hr, | New Bag | 11/09/19 | 75 mL/hr | 75 mL/hr | | | intravenous, PROCEDURE | | 12 11:00 | | | | | CONTINUOUS, Starting Wed11/09/11 | | AM PST | | | | | at 1115, Until Wed11/09/11 at 1227 | | | | | | + +---------+ + + +---+ +---+---+ | | | +---+---+ + +-------+ +-------+---+---+ | lisinopril (aka PRINIVIL) | Given | 11/10/19 | 10 mg | | | | tablet 10 mg 10 mg, oral, DAILY, | | 12 7:57 | | | | | First dose on Wed11/09/11 at | | AM PST | | | | | 1300, Until Discontinued | | | | | | + +-------+ +-------+---+---+ +-------+ +-------+---+---+ | Given | 11/09/19 | 10 mg | | | | | 12 7:47 | | | | | | PM PST | | | | +-------+ +-------+---+---+ +---+---+ | | | +---+---+ + +-------+ +-------+---+---+ | morphine SR (aka MS CONTIN) | Given | 11/10/19 | 15 mg | | | | tablet 15 mg 15 mg, oral, EVERY | | 12 7:57 | | | | | 12 HOURS, First dose on Mon | | AM PST | | | | | 11/09/11 at 1300, Until | | | | | | | Discontinued | | | | | | + +-------+ +-------+---+---+ +-------+ +-------+---+---+ | Given | 11/09/19 | 15 mg | | | | | 12 8:58 | | | | | | PM PST | | | | +-------+ +-------+---+---+ | Given | 11/09/19 | 15 mg | | | | | 12 1:17 | | | | | | PM PST | | | | +-------+ +-------+---+---+ +---+---+ | | | +---+---+ + +-------+ +-------+---+---+ | omeprazole (aka PRILOSEC) | Given | 11/10/19 | 20 mg | | | | capsule 20 mg 20 mg, oral, | | 12 7:57 | | | | | DAILY, First dose on 11/09/11 | | AM PST | | | | | at 1300, Until Discontinued | | | | | | + +-------+ +-------+---+---+ +-------+ +-------+---+---+ | Given | 11/09/19 | 20 mg | | | | | 12 7:47 | | | | | | PM PST | | | | +-------+ +-------+---+---+ +---+---+ | | | +---+---+ documented in this encounter
--- OUTSIDE RECORDS SUMMARY | ~2019-09-11 | XMS | Encounter Summary ---
Demographics + + + | Address | [address] | | | [place] [address] | + + + | Home Phone | | + + + | Preferred Language | Unknown | + + + | Marital Status | | + + + | Hinduism Affiliation | Unknown | + + + | Race | Unknown | + + + | Ethnic Group | Unknown | + + + Author + + + | Author | [facility] | | | and [place] | + + + | Organization | [facility] | | | and [place] | + + + | Address | Unknown | + + + | Phone | Unavailable | + + + Support + + + + + | Name | Relationship | Address | Phone | + + + + + | Yue Fischer | JESE | [address] | | | | | [place], [place] | | | | | [address] | | + + + + + | Greta Estebaneau | ECON | [place], [place] | | | | | [address] | | + + + + + Care Team Providers + +------+ + | Care Order To Delivery Supervisor Name | Role | Phone | + +------+ + | Becky Jennings | PCP | | + +------+ + Reason for Visit + + + | Reason | Comments | + + + | Appointment | | + + + Encounter Details +--------+ + + + + | Date | Type | Department | Care Team | Description | +--------+ + + + + | 07/03/ | Telephone | [facility] | Endy Polo, | Appointment | | 2013 | | CARDIOLOGY [address] | MD [address] [place] | | | | | [place], | [place], | | | | | [place] [address] | [place] [address] | | | | | [phone] | [phone] | | | | | | | [...]
--- OUTSIDE RECORDS SUMMARY | ~2019-09-11 | XMS | Encounter Summary ---
Demographics + + + | Address | [address] | | | [place] [address] | + + + | Home Phone | | + + + | Preferred Language | Unknown | + + + | Marital Status | | + + + | Anglican Affiliation | Unknown | + + + | Race | Unknown | + + + | Ethnic Group | Unknown | + + + Author + + + | Author | [facility] | | | and [place] | + + + | Organization | [facility] | | | and Hermannana [...] [place], [place] | | | | | [address] | | + + + + + | Greta Broncheau | ECON | [place], [place] | | | | | [address] | | + + + + + Care Team Providers + +------+ + | Care Seating Captain Name | Role | Phone | + +------+ + | Becky Jennings | PCP | | + +------+ + Reason for Visit +--------+ + | Reason | Comments | +--------+ + | Other | | +--------+ + Encounter Details +--------+ + + + + | Date | Type | Department | Care Team | Description | +--------+ + + + + | 02/08/ | Telephone | [facility] | Thelma, | [facility] | | 2015 | | [facility] | Antonio Infante MD [address] | | | | | [facility] [address] | | | | | [address] | [place] [address] | | | | | [place] [address] | [phone] | | | | | [phone] | | | +--------+ + + + [...] filedocumented as of this encounter Visit Diagnoses + + | Diagnosis | + + | Burkitt's lymphoma (HCC) - Primary Burkitt's tumor or lymphoma, unspecified site, | | extranodal and solid organ sites | + + documented in this encounter"
--- OUTSIDE RECORDS SUMMARY | ~2019-09-11 | XMS | Clinical Summary ---
Demographics + + + | Address | [address] | | | [place] [address] | + + + | Home Phone | | + + + | Preferred Language | Unknown | + + + | Marital Status | | + + + | Tenriism Affiliation | Unknown | + + + | Race | Unknown | + + + | Ethnic Group | Unknown | + + + Author + + + | Author | [facility] | | | and [place] | + + + | Organization | [facility] | | | and [place] | + + + | Address | Unknown | + + + | Phone | Unavailable | + + + Support + + + + + | Name | Relationship | Address | Phone | + + + + + | Yue Fischer | JESE | [address] | | | | | [place], [place] | | | | | [address] | | + + + + + | Greta Broncheau | ECON | [place], [place] | | | | | [address] | | + + + + + Care Team Providers + +------+ + | Care Cd Mixer Name | Role | Phone | + +------+ + | Clay Ly DO | PCP | | + +------+ + Allergies + [...] | + + + + + + Medications + + + +---------+------+------+-------+ | Medication | Sig | Dispensed | Refills | Star | End | Statu | | | | | | t | Date | s | | | | | | Date | | | + + + +---------+------+------+-------+ | | Inhale 2 puffs into | | 0 | | | Activ | | mometasone-formotero | the lungs as needed. | | | | | e | | l (DULERA) 100-5 | | | | | | | | mcg/puff inhaler | | | | | | | + + + +---------+------+------+-------+ | | Take 2 tablets by | [...] | | | | + + + +---------+------+------+-------+ | ondansetron | Take 1 tablet by | 15 | 0 | 02/2 | | Activ | | (ZOFRAN ODT) 4 mg | mouth every 6 hours | tablet | | 3/20 | | e | | disintegrating | as needed for | | | 16 | | | | tablet | Nausea. | | | | | | + + + +---------+------+------+-------+ Active Problems + + + | Problem [...] | + + + | Burkitt's lymphoma | | + + + + + [...] + + + + | Name | Administration Dates | Next Due | + + + [...] recent travel history available. | + + Last Filed Vital Signs + + + + + | Vital Sign | Reading | Time Taken | Comments | + + + + + | Blood Pressure | 113/73 | 12/24/2015 4:27 AM | | | | | PST | | + + + + + | Pulse | 105 | 12/24/2015 6:48 AM | | | | | PST | | + + + + + | Temperature | 38.4 C (101.1 F) | 12/24/2015 4:23 AM | | | | | PST | | + + + + + | Respiratory Rate | 20 | 12/24/2015 6:48 AM | | | | | PST | | + + + + + | Oxygen Saturation | 96% | 12/24/2015 6:48 AM | | | | | PST | | + + + + + | Inhaled Oxygen | - | - | | | Concentration | | | | + + + + + | Weight | 90.7 kg (200 lb) | 12/24/2015 4:23 AM | | | | | PST | | + + + + + | Height | 162.6 cm (5' 4.02") | 12/24/2015 4:23 AM | | | | | PST | | + + + + + | Body Mass Index | 34.31 | 12/24/2015 4:23 AM | | | | | PST | | + + + + + Plan of Treatment + + + + + | Health Maintenance | Due Date | Last Done | Comments | + + + + + | Vaccine: | | | | | Dtap/Tdap/Td (1 - | 9 | | | | Tdap) | | | | + + + + + | Cervical Cancer | | | | | Screening (Pap) | 0 | | | + + + + + | Vaccine: Zoster (1 | | | | | of 2) | 0 | | | + + + + + | Breast Cancer | | | | | Screening | 5 | | | + + + + + | Vaccine: Influenza | | | | | (#1) | 9 | | | + + + + + Results Not on filefrom Last 3 Months Insurance + +--------+ +--------+ +---------+--------+ | Payer | Benefi | Subscriber | Effect | Phone | Address | Type | | | t Plan | ID | al | | | | | | / | | Dates | | | | | | Group | | | | | | + +--------+ +--------+ +---------+--------+ | MEDICARE | MEDICA | [id number] | 11/01/19 | [phone] | | Medica | | | RE | | 17-Pre | 5 | | re | | | PART A | | sent | | | | | | AND B | | | | | | + +--------+ +--------+ +---------+--------+ | [employer] | [employer]HS | [id number] | | | | Indemn | | SERVICE | YELLOW | | 013-Pr | | | ity | | | HAWK | | esent | | | | + +--------+ +--------+ +---------+--------+ + +--------+ +--------+ + + | Guarantor Name | Accoun | Relation to | Date | Phone | Billing Address | | | t Type | Patient | of | | | | | | | | | | + +--------+ +--------+ + + | Frida Christian | Person | Self | [birth year] | [address] | | | al/Fam | | 1961 | [phone] | [place] [address] | | | shonda | | | 8 (Home) | | + +--------+ +--------+ + + Advance Directives + + + + + | Type | Date Recorded | Patient | Explanation | | | | General Expeditor | | + + + + + | Power of | | | | | Integration Architect | | | | + + + + + | Advance | | | | | Directive | | | | + + + + +
--- OUTSIDE RECORDS SUMMARY | ~2019-09-11 | XMS | Encounter Summary ---
Demographics + + + | Address | [address] | | | [place] [address] | + + + | Home Phone | | + + + | Preferred Language | Unknown | + + + | Marital Status | | + + + | Lutheran Affiliation | Unknown | + + + | Race | Unknown | + + + | Ethnic Group | Unknown | + + + Author + + + | Author | [facility] | | | and [place] | + + + | Organization | [facility] | | | and [place] | + + + | Address | Unknown | + + + | Phone | Unavailable | + + + Support + + + + + | Name | Relationship | Address | Phone | + + + + + | Yue Fischer | JESE | [address] | | | | | [place], [place] | | | | | [address] | | + + + + + | Greta Estebaneau | ECON | [place], [place] | | | | | [address] | | + + + + + Care Team Providers + +------+ + | Care Wagon Drill Operator Name | Role | Phone | + +------+ + | Becky Jennings | PCP | | + +------+ + Reason for Visit + + + | Reason | Comments | + + + | Medication Refill | | + + + Encounter Details +--------+--------+ + + + | Date | Type | Department | Care Team | Description | +--------+--------+ + + + | 08/12/ | Refill | [facility] | Thelma, | Medication Refill | | 2014 | | [facility] | Antonio Infante MD [address] | | | | | [address] | [facility] | | | | | [address] [facility] | [place] [address] | | | | | [place] [address] | [phone] | | | | | [phone] | | | +--------+--------+ + + + Social History + +-------+ [...]
--- OUTSIDE RECORDS SUMMARY | ~2019-09-11 | XMS | Encounter Summary ---
Demographics + + + | Address | [address] | | | [place] [address] | + + + | Home Phone | | + + + | Preferred Language | Unknown | + + + | Marital Status | Single | + + + | Catholic Affiliation | NON | + + + | Race | or | + + + | Ethnic Group | Not or | + + + Author + + + | Author | [facility] | + + + | Organization | [facility] | + + + | Address | Unknown | + + + | Phone | Unavailable | + + + Support + + + + + | Name | Relationship | Address | Phone | + + + + + | Yue Fischer | ECON | [address] | | | | | [place] | | | | | [address] | | + + + + + | Greta Broncheau | ECON | Unknown | | + + + + + Care Team Providers + +------+ + | Care Straw Boss Name | Role | Phone | + +------+ + | Becky Jennings | PCP | | + +------+ + Encounter Details +--------+ + + + + | Date | Type | Department | Care Team | Description | +--------+ + + + + | 02/09/ | Results | LAB REFERRED TESTS | Other, Faculty | | | 2011 | Only | [address] [facility] | [phone] | | | | | [address] | | | | | | [place], [place] | | | | | | [address] | | | +--------+ + + + [...] + | EJECTION FRACTION | Routin | 02/10/2012 | | Results for this | | | e | 2:54 PM | | procedure are in the | | | | PDT | | results section. | + +--------+ + + + | EJECTION FRACTION | Routin | 02/10/2012 | | Results for this | | | e | 2:54 PM | | procedure are in the | | | | PDT | | results section. | + +--------+ + + + documented in this encounter Results EJECTION FRACTION (02/10/2012 2:54 PM PDT) + +-------+ + + + | Component | Value | Ref Range | Performed | Pathologist | | | | | At | Signature | + +-------+ + + + | BIPLANE, EF | 60.7 | | [facility] | | | | | | OF | | | | | | CARDIOLOGY | | + +-------+ + + + + + | Specimen | + + | | + + + + + + + | Performing | Address | City/State/Zipcode | Phone Number | | Organization | | | | + + + + + | [facility] | [address] [facility] [facility] | [place], [place] | | | CARDIOLOGY | [address] | [address] | | + + + + + EJECTION FRACTION (02/10/2012 2:54 PM PDT) + +-------+ + + + | Component | Value | Ref Range | Performed | Pathologist | | | | | At | Signature | + +-------+ + + + | BIPLANE, EF | 60.7 | | [facility] | | | | | | OF | | | | | | CARDIOLOGY | | + +-------+ + + + + + | Specimen | + + | | + + + + + + + | Performing | Address | City/State/Zipcode | Phone Number | | Organization | | | | + + + + + | [facility] | [address] | [place], [place] | | | CARDIOLOGY | [address] | [address] | | + + + + + documented in this encounter Visit Diagnoses Not on filedocumented in this encounter"
--- OUTSIDE RECORDS SUMMARY | ~2019-09-11 | XMS | Encounter Summary ---
Demographics + + + | Address | [address] | | | [place] [address] | + + + | Home Phone | | + + + | Preferred Language | Unknown | + + + | Marital Status | | + + + | Episcopal Affiliation | Unknown | + + + | Race | Unknown | + + + | Ethnic Group | Unknown | + + + Author + + + | Author | [facility] | | | and Hermannana | + + + | Organization | [facility] | | | and Hermannana [...] [place], [place] | | | | | [address] | | + + + + + | Greta Broncheau | ECON | [place], [place] | | | | | [address] | | + + + + + Care Team Providers + +------+ + | Care 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 Truck Driver Name | Role | Phone | + +------+ + | Clay Ly DO | PCP | | + +------+ + Reason for Visit + + + | Reason | Comments | + + + | Fever (9 Weeks To 74 | | | Years) | | + + + | Chills | | + + + | Headache (Adult - | | | New Onset Or New | | | Symptoms) | | + + + | Emesis | | + + + | Diarrhea (Adult) | | + + + Encounter Details +--------+ + + + + | Date | Type | Department | Care Team | Description | +--------+ + + + + | 12/24/ | Emergency | [facility] | Antonio Benoit | Nausea vomiting and | | 2016 | | [facility] | Mckay Joseph MD | diarrhea (Primary | | | | CENTER [address] | [address] | Dx); Urinary tract | | | | [place] | [place] | infection, site | | | | [id number] | [id number] | unspecified | | | | [phone] | | | +--------+ + + + [...] + + documented in this encounter Discharge Instructions Instructions Antonio Benoit MD - 12/24/2015Drink plenty of fluids. Take anti biotics as prescribed. Return for severe worsening nausea vomiting fever chills or other wo rsening symptoms. Please take Tylenol and ibuprofen as needed for fever. documented in this encounter Medications at Time of Discharge + + + +---------+ + + | Medication | Sig | Dispensed | Refills | Start | End Date | | | | | | Date | | + + + +---------+ + + | | Take 2 tablets by | 100 | 0 | 08/12/20 | | | HYDROcodone-acetamin | mouth every 6 hours | tablet | | 15 | | | ophen (NORCO) 5-325 | as needed. 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 | | | | | | l (DULERA) 100-5 | | | | | | | mcg/puff inhaler | | | | | | + + + +---------+ + + | ondansetron | Take 1 tablet by | 15 | 0 | 12/24/19 | | | (ZOFRAN ODT) 4 mg | mouth every 6 hours | tablet | | 16 | | | disintegrating | as needed for | | | | | | tablet | Nausea. | | | | | + + + +---------+ + + | ciprofloxacin | Take 1 tablet by | 14 | 0 | 12/24/19 | | | (CIPRO) 500 mg | mouth 2 times daily | tablet | | 16 | 6 | | tablet | for 7 days. | | | | | + + + +---------+ + + | metroNIDAZOLE | Take 1 tablet by | 21 | 0 | 12/24/19 | | | (FLAGYL) 500 MG | mouth 3 times daily | tablet | | 16 | 6 | | tablet | for 7 days. | | | | | + + + +---------+ + + documented as of this encounter Plan of Treatment Not on filedocumented as of this encounter Procedures + +--------+ + + + | Procedure Name | Priori | Date/Time | Associated Diagnosis | Comments | | | ty | | | | + +--------+ + + + | XR CHEST AP PORTABLE | STAT | 12/24/2015 | | Results for this | | | | 6:16 AM | | procedure are in the | | | | PST | | results section. | + +--------+ + + + | URINALYSIS WITH | STAT | 12/24/2015 | | Results for this | | MICROSCOPIC WITH | | 5:54 AM | | procedure are in the | | CULTURE IF INDICATED | | PST | | results section. | + +--------+ + + + | CULTURE, URINE | Routin | 12/24/2015 | | Results for this | | | e | 5:54 AM | | procedure are in the | | | | PST | | results section. | + +--------+ + + + | CBC WITH | STAT | 12/24/2015 | | Results for this | | DIFFERENTIAL | | 5:21 AM | | procedure are in the | | | | PST | | results section. | + +--------+ + + + | LIPASE | STAT | 12/24/2015 | | Results for this | | | | 5:21 AM | | procedure are in the | | | | PST | | results section. | + +--------+ + + + | COMPREHENSIVE | STAT | 12/24/2015 | | Results for this | | METABOLIC PANEL | | 5:21 AM | | procedure are in the | | | | PST | | results section. | + +--------+ + + + | INFLUENZA A AND B | Routin | 12/24/2015 | | Results for this | | RNA, NAAT | e | 4:40 AM | | procedure are in the | | | | PST | | results section. | + +--------+ + + + documented in this encounter Results XR Chest AP Portable (12/24/2015 6:16 AM PST) + + | Specimen | + + | | + + + + + | Narrative | Performed At | + + + | XR CHEST AP PORTABLE 12/24/2015 6:15 AM HISTORY: FEVER (9 WEEKS | [facility] | | TO 73 YEARS) CHILLS HEADACHE (ADULT - NEW ONSET OR NEW SYMPTOMS) | | | EMESIS DIARRHEA (ADULT). COMPARISON: Multiple priors. | | | Findings: Heart size is within normal limits. Aorta is normal. | | | Mediastinum is unremarkable. Central pulmonary vasculature is normal. | | | A triangular shaped opacity is visualized in the right upper lobe | | | that could represent atelectasis versus focal pneumonia. The left | | | lung is clear. No pleural effusion or pneumothorax is seen. There is | | | mild spondylosis. IMPRESSION - Triangular opacity in right upper | | | lobe that could represent atelectasis versus focal pneumonia. | | | Continued follow-up with PA and lateral technique would be | | | recommended for further evaluation if clinically indicated. This | | | report was called to the ER. Dictated and Signed by: Mark Tran | | | Electronically signed: 12/24/2015 9:20 AM | | + + + + + | Procedure Note | + + | Germain, Rad Results In - 12/24/2015 9:23 AM PST XR CHEST AP PORTABLE 12/24/2015 6:15 AM | | | | HISTORY: FEVER (9 WEEKS TO 73 YEARS) | | CHILLS | | HEADACHE (ADULT - NEW ONSET OR NEW SYMPTOMS) | | EMESIS | | DIARRHEA (ADULT). | | | | COMPARISON: Multiple priors. | | | | Findings: | | Heart size is within normal limits. Aorta is normal. Mediastinum is | | unremarkable. Central pulmonary vasculature is normal. A triangular shaped | | opacity is visualized in the right upper lobe that could represent atelectasis | | versus focal pneumonia. The left lung is clear. No pleural effusion or | | pneumothorax is seen. There is mild spondylosis. | | | | IMPRESSION - | | Triangular opacity in right upper lobe that could represent atelectasis versus | | focal pneumonia. Continued follow-up with PA and lateral technique would be | | recommended for further evaluation if clinically indicated. | | | | This report was called to the ER. | | | | Dictated and Signed by: Mark Tran MD | | Electronically signed: 12/24/2015 9:20 AM | + + + +---------+ + + | Performing | Address | City/State/Zipcode | Phone Number | | Organization | | | | + +---------+ + + | [facility] | | | | + +---------+ + + Culture, Urine (12/24/2015 5:54 AM PST) + + + + + + | Component | Value | Ref Range | Performed | Pathologist | | | | | At | Signature | + + + + + + | Culture | No Growth | | [facility] | | | | | | [facility] | | | | | | [facility] | | | | | | CENTER - | | | | | | LABORATORY | | + + + + + + + + | Specimen | + + | Urine - Urine | | specimen (specimen) | + + + + + + + | Performing | Address | City/State/Zipcode | Phone Number | | Organization | | | | + + + + + | [facility] | [address] | [place] | [phone] | | [facility] | | [address] | | | - LABORATORY | | | | + + + + + Urinalysis with Microscopic with Culture if Indicated (12/24/2015 5:54 AM PST) + + + + + + | Component | Value | Ref Range | Performed | Pathologist | | | | | At | Signature | + + + + + + | Color | Alicia (A) | Light Yellow, | [facility] | | | | | Yellow, Straw | [facility] | | | | | | MEDICAL | | | | | | CENTER - | | | | | | LABORATORY | | + + + + + + | Clarity | Hazy | | [facility] | | | | | | [facility] | | | | | | MEDICAL | | | | | | CENTER - | | | | | | LABORATORY | | + + + + + + | pH, Urine | 5.0 | 5.0 - 8.0 | [facility] | | | | | | [facility] | | | | | | MEDICAL | | | | | | CENTER - | | | | | | LABORATORY | | + + + + + + | Specific | 1.026 | 1.001 - 1.030 | [facility] | | | Paia | | | [facility] | | | | | | MEDICAL | | | | | | CENTER - | | | | | | LABORATORY | | + + + + + + | Protein, | 100 mg/dL (A) | Negative | [facility] | | | Urine | | | [facility] | | | | | | MEDICAL | | | | | | CENTER - | | | | | | LABORATORY | | + + + + + + | Blood, | Moderate (A) | Negative | [facility] | | | Urine | | | [facility] | | | | | | MEDICAL | | | | | | CENTER - | | | | | | LABORATORY | | + + + + + + | Glucose, | Negative | Negative | [facility] | | | Urine | | | [facility] | | | | | | MEDICAL | | | | | | CENTER - | | | | | | LABORATORY | | + + + + + + | Ketones, | Negative | Negative | [facility] | | | Urine | | | [facility] | | | | | | MEDICAL | | | | | | CENTER - | | | | | | LABORATORY | | + + + + + + | Bilirubin, | Negative | Negative | [facility] | | | Urine | | | [facility] | | | | | | MEDICAL | | | | | | CENTER - | | | | | | LABORATORY | | + + + + + + | Nitrite, | Negative | Negative | [facility] | | | Urine | | | [facility] | | | | | | MEDICAL | | | | | | CENTER - | | | | | | LABORATORY | | + + + + + + | Leukocyte | Moderate (A) | Negative | [facility] | | | Esterase, | | | [facility] | | | Urine | | | MEDICAL | | | | | | CENTER - | | | | | | LABORATORY | | + + + + + + | Urobilinoge | 2.0 mg/dL (A) | < 0.2 mg/dL, | [facility] | | | n, Urine | | 1.0 mg/dL, 4.0 | [facility] | | | | | mg/dL, Normal, | MEDICAL | | | | | 1.0 E.U./dL, | CENTER - | | | | | 0.2 E.U./dL, | LABORATORY | | | | | 0.2 mg/dL, | | | | | | Negative, 1 | | | | | | mg/dL, <2.0 | | | | | | mg/dL | | | + + + + + + | WBC UA | 15-25 (A) | 0 - 2 /HPF | [facility] | | | | | | [facility] | | | | | | MEDICAL | | | | | | CENTER - | | | | | | LABORATORY | | + + + + + + | WBC CLUMPS | Few (A) | None Seen /HPF | [facility] | | | UA | | | [facility] | | | | | | MEDICAL | | | | | | CENTER - | | | | | | LABORATORY | | + + + + + + | RBC UA | 5-10 (A) | 0 - 2 /HPF | [facility] | | | | | | [facility] | | | | | | MEDICAL | | | | | | CENTER - | | | | | | LABORATORY | | + + + + + + | SQUAMOUS | >100 (A) | 0 - 2 /LPF | [facility] | | | EPITHELIAL | | | [facility] | | | UA | | | MEDICAL | | | | | | CENTER - | | | | | | LABORATORY | | + + + + + + | BACTERIA UA | 1+ (A) | Negative /HPF | [facility] | | | | | | [facility] | | | | | | MEDICAL | | | | | | CENTER - | | | | | | LABORATORY | | + + + + + + | HYALINE | 2-5 (A) | 0 - 2 /LPF | [facility] | | | CASTS UA | | | [facility] | | | | | | MEDICAL | | | | | | CENTER - | | | | | | LABORATORY | | + + + + + + | MUCUS UA | Present (A) | Negative /LPF | [facility] | | | | | | [facility] | | | | | | MEDICAL | | | | | | CENTER - | | | | | | LABORATORY | | + + + + + + | URINE | Urine Culture Set Up | | [facility] | | | COMMENT | | | [facility] | | | | | | MEDICAL | | | | | | CENTER - | | | | | | LABORATORY | | + + + + + + + + | Specimen | + + | Urine - Urine | | specimen (specimen) | + + + + + + + | Performing | Address | City/State/Zipcode | Phone Number | | Organization | | | | + + + + + | [facility] | [address] | [place] | [phone] | | [facility] | | [address] | | | - LABORATORY | | | | + + + + + Lipase (12/24/2015 5:21 AM PST) + +-------+ + + + | Component | Value | Ref Range | Performed | Pathologist | | | | | At | Signature | + +-------+ + + + | Lipase | 17 | 0 - 60 U/L | [facility] | | | | | | [facility] | | | | | | MEDICAL | | | | | | CENTER - | | | | | | LABORATORY | | + +-------+ + + + + + | Specimen | + + | Blood | + + + + + + + | Performing | Address | City/State/Zipcode | Phone Number | | Organization | | | | + + + + + | [facility] | [address] | [place] | [phone] | | [facility] | | [address] | | | - LABORATORY | | | | + + + + + Comprehensive Metabolic Panel (12/24/2015 5:21 AM PST) + + + + + + | Component | Value | Ref Range | Performed | Pathologist | | | | | At | Signature | + + + + + + | Na | 136 | 136 - 149 | [facility] | | | | | mmol/L | [facility] | | | | | | MEDICAL | | | | | | CENTER - | | | | | | LABORATORY | | + + + + + + | K | 3.2 (L) | 3.5 - 5.1 | [facility] | | | | | mmol/L | [facility] | | | | | | MEDICAL | | | | | | CENTER - | | | | | | LABORATORY | | + + + + + + | Cl | 96 (L) | 98 - 109 mmol/L | [facility] | | | | | | [facility] | | | | | | MEDICAL | | | | | | CENTER - | | | | | | LABORATORY | | + + + + + + | CO2 | 24 | 24 - 31 mmol/L | [facility] | | | | | | [facility] | | | | | | MEDICAL | | | | | | CENTER - | | | | | | LABORATORY | | + + + + + + | Anion Gap | 16 | 3 - 16 mmol/L | [facility] | | | | | | [facility] | | | | | | MEDICAL | | | | | | CENTER - | | | | | | LABORATORY | | + + + + + + | Glucose | 170 (H) | 70 - 109 mg/dL | [facility] | | | | | | [facility] | | | | | | MEDICAL | | | | | | CENTER - | | | | | | LABORATORY | | + + + + + + | BUN | 15 | 7 - 18 mg/dL | [facility] | | | | | | [facility] | | | | | | MEDICAL | | | | | | CENTER - | | | | | | LABORATORY | | + + + + + + | Creatinine | 0.79 | 0.60 - 1.30 | [facility] | | | | | mg/dL | [facility] | | | | | | MEDICAL | | | | | | CENTER - | | | | | | LABORATORY | | + + + + + + | eGFR if not | >60Comment: GLOMERULAR | >=60 | [facility] | | | | FILTRATION | mL/min/1.73m2 | [facility] | | | CUBAN | RATE,ESTIMATED | | MEDICAL | | | | mL/min/1.29t8Iqpu than | | CENTER - | | | | 60 Chronic kidney | | LABORATORY | | | | disease,if found over a | | | | | | 3-month period.Less than | | | | | | 15 Kidney failureFor | | | | | | | | | | | | Americans,multiply the | | | | | | calculated GFR by 1.21. | | | | | | | | | | + + + + + + | Calcium | 9.3 | 8.3 - 10.5 | [facility] | | | | | mg/dL | [facility] | | | | | | MEDICAL | | | | | | CENTER - | | | | | | LABORATORY | | + + + + + + | Albumin | 3.9 | 3.2 - 5.0 g/dL | [facility] | | | | | | [facility] | | | | | | MEDICAL | | | | | | CENTER - | | | | | | LABORATORY | | + + + + + + | Bilirubin | 0.8Comment: This is an | 0.1 - 1.5 mg/dL | [facility] | | | Total | appended report. These | | [facility] | | | | results have been | | MEDICAL | | | | appended to a previously | | CENTER - | | | | preliminary verified | | LABORATORY | | | | report. | | | | + + + + + + | Total | 6.8 | 6.0 - 7.8 g/dL | [facility] | | | Protein | | | [facility] | | | | | | MEDICAL | | | | | | CENTER - | | | | | | LABORATORY | | + + + + + + | AST | 19Comment: This is an | 10 - 42 U/L | [facility] | | | | appended report. These | | [facility] | | | | results have been | | MEDICAL | | | | appended to a previously | | CENTER - | | | | preliminary verified | | LABORATORY | | | | report. | | | | + + + + + + | ALT | 25Comment: This is an | 6 - 45 U/L | [facility] | | | | appended report. These | | [facility] | | | | results have been | | MEDICAL | | | | appended to a previously | | CENTER - | | | | preliminary verified | | LABORATORY | | | | report. | | | | + + + + + + | Alkaline | 116 (H)Comment: This is | 40 - 110 U/L | [facility] | | | Phosphatase | an appended report. | | [facility] | | | | These results have been | | MEDICAL | | | | appended to a previously | | CENTER - | | | | preliminary verified | | LABORATORY | | | | report. | | | | + + + + + + | Globulin | 2.9 | g/dL | [facility] | | | | | | [facility] | | | | | | MEDICAL | | | | | | CENTER - | | | | | | LABORATORY | | + + + + + + | Albumin/Katja | 1.3 | | [facility] | | | bulin Ratio | | | [facility] | | | | | | MEDICAL | | | | | | CENTER - | | | | | | LABORATORY | | + + + + + + | BUN/Creatin | 19.0 | | [facility] | | | ine Ratio | | | [facility] | | | | | | MEDICAL | | | | | | CENTER - | | | | | | LABORATORY | | + + + + + + + + | Specimen | + + | Blood | + + + + + + + | Performing | Address | City/State/Zipcode | Phone Number | | Organization | | | | + + + + + | [facility] | [address] | [place], [place] | [phone] | | [facility] | | [address] | | | - LABORATORY | | | | + + + + + CBC with Differential (12/24/2015 5:21 AM PST) + + + + + + | Component | Value | Ref Range | Performed | Pathologist | | | | | At | Signature | + + + + + + | WBC | 20.2 (H) | 4.0 - 11.0 K/uL | [facility] | | | | | | [facility] | | | | | | MEDICAL | | | | | | CENTER - | | | | | | LABORATORY | | + + + + + + | RBC | 4.47 | 3.70 - 5.20 | [facility] | | | | | M/uL | [facility] | | | | | | MEDICAL | | | | | | CENTER - | | | | | | LABORATORY | | + + + + + + | Hemoglobin | 13.9 | 11.5 - 16.0 | [facility] | | | | | g/dL | [facility] | | | | | | MEDICAL | | | | | | CENTER - | | | | | | LABORATORY | | + + + + + + | Hematocrit | 40.8 | 34.0 - 47.0 % | [facility] | | | | | | [facility] | | | | | | MEDICAL | | | | | | CENTER - | | | | | | LABORATORY | | + + + + + + | MCV | 91.2 | 83.0 - 101.0 fL | [facility] | | | | | | [facility] | | | | | | MEDICAL | | | | | | CENTER - | | | | | | LABORATORY | | + + + + + + | MCH | 31.1 | 28.0 - 35.0 pg | [facility] | | | | | | [facility] | | | | | | MEDICAL | | | | | | CENTER - | | | | | | LABORATORY | | + + + + + + | MCHC | 34.1 | 32.0 - 36.0 | [facility] | | | | | g/dL | [facility] | | | | | | MEDICAL | | | | | | CENTER - | | | | | | LABORATORY | | + + + + + + | RDW-CV | 12.9 | <15.0 % | [facility] | | | | | | [facility] | | | | | | MEDICAL | | | | | | CENTER - | | | | | | LABORATORY | | + + + + + + | Platelet | 224 | 140 - 440 K/uL | [facility] | | | Count | | | [facility] | | | | | | MEDICAL | | | | | | CENTER - | | | | | | LABORATORY | | + + + + + + | MPV | 8.5 | fL | [facility] | | | | | | [facility] | | | | | | MEDICAL | | | | | | CENTER - | | | | | | LABORATORY | | + + + + + + | % | 78.7 | 45.0 - 82.0 % | [facility] | | | Neutrophils | | | [facility] | | | | | | MEDICAL | | | | | | CENTER - | | | | | | LABORATORY | | + + + + + + | % | 10.7 (L) | 20.0 - 45.0 % | [facility] | | | Lymphocytes | | | [facility] | | | | | | MEDICAL | | | | | | CENTER - | | | | | | LABORATORY | | + + + + + + | % Monocytes | 9.5 | 4.0 - 12.0 % | [facility] | | | | | | [facility] | | | | | | MEDICAL | | | | | | CENTER - | | | | | | LABORATORY | | + + + + + + | % | 0.1 | 0.0 - 5.0 % | [facility] | | | Eosinophils | | | [facility] | | | | | | MEDICAL | | | | | | CENTER - | | | | | | LABORATORY | | + + + + + + | % Basophils | 1.0 | 0.0 - 1.0 % | [facility] | | | | | | [facility] | | | | | | MEDICAL | | | | | | CENTER - | | | | | | LABORATORY | | + + + + + + | Absolute | 15.90 (H) | 1.80 - 8.50 | [facility] | | | Neutrophils | | K/uL | [facility] | | | | | | MEDICAL | | | | | | CENTER - | | | | | | LABORATORY | | + + + + + + | Absolute | 2.20 | 0.60 - 3.20 | [facility] | | | Lymphocytes | | K/uL | [facility] | | | | | | MEDICAL | | | | | | CENTER - | | | | | | LABORATORY | | + + + + + + | Absolute | 1.90 (H) | 0.00 - 1.00 | [facility] | | | Monocytes | | K/uL | [facility] | | | | | | MEDICAL | | | | | | CENTER - | | | | | | LABORATORY | | + + + + + + | Absolute | 0.00 | 0.00 - 0.40 | [facility] | | | Eosinophils | | K/uL | [facility] | | | | | | MEDICAL | | | | | | CENTER - | | | | | | LABORATORY | | + + + + + + | Absolute | 0.20 (H) | 0.00 - 0.10 | [facility] | | | Basophils | | K/uL | [facility] | | | | | | MEDICAL | | | | | | CENTER - | | | | | | LABORATORY | | + + + + + + + + | Specimen | + + | Blood | + + + + + + + | Performing | Address | City/State/Zipcode | Phone Number | | Organization | | | | + + + + + | [facility] | [address] | [place] | [phone] | | [facility] | | [address] | | | - LABORATORY | | | | + + + + + Influenza A and B RNA, NAAT (12/24/2015 4:40 AM PST) + + + + + + | Component | Value | Ref Range | Performed | Pathologist | | | | | At | Signature | + + + + + + | Influenza A | Negative | Negative | [facility] | | | PCR | | | [facility] | | | | | | MEDICAL | | | | | | CENTER - | | | | | | LABORATORY | | + + + + + + | Influenza B | Negative | Negative | [facility] | | | PCR | | | [facility] | | | | | | MEDICAL | | | | | | CENTER - | | | | | | LABORATORY | | + + + + + + + + | Specimen | + + | Respiratory - Both | | anterior nares (body | | structure) | + + + + + + + | Performing | Address | City/State/Zipcode | Phone Number | | Organization | | | | + + + + + | [facility] | [address] | [place], [place] | [phone] | | [facility] | | [address] | | | - LABORATORY | | | | + + + + + documented in this encounter Visit Diagnoses + + | Diagnosis | + + | Nausea vomiting and diarrhea - Primary Nausea with vomiting | + + | Urinary tract infection, site unspecified | + + documented in this encounter Administered Medications + +--------+ + +------+------+ | Medication Order | MAR | Action | Dose | Rate | Site | | | Action | Date | | | | + +--------+ + +------+------+ | acetaminophen (TYLENOL) tablet | Given | 12/24/19 | 1,000 mg | | | | 1,000 mg 1,000 mg, Oral, ONCE, | | 16 5:40 | | | | | 12/24/15 at 0540, For 1 dose | | AM PST | | | | + +--------+ + +------+------+ +---+---+ | | | +---+---+ + +-------+ +------+---+---+ | ondansetron (ZOFRAN) injection | Given | 12/24/19 | 8 mg | | | | 8 mg 8 mg, Intravenous, ONCE, | | 16 5:23 | | | | | 12/24/15 at 0515, For 1 dose | | AM PST | | | | + +-------+ +------+---+---+ +---+---+ | | | +---+---+ + +---------+ +--------+-------+---+ | sodium chloride 0.9% (NS) bolus | New Bag | 12/24/19 | 1,000 | 1000 | | | 1,000 mL 1,000 mL, Intravenous, | | 16 5:39 | mLs | mL/hr | | | Administer over 1 Hours, ONCE, | | AM PST | | | | | 12/24/15 at 0540, For 1 dose | | | | | | + +---------+ +--------+-------+---+ +---+---+ | | | +---+---+ documented in this encounter
--- OUTSIDE RECORDS SUMMARY | ~2019-09-11 | XMS | Encounter Summary ---
Demographics + + + | Address | [address] | | | [place] [address] | + + + | Home Phone | | + + + | Preferred Language | Unknown | + + + | Marital Status | | + + + | Alevism Affiliation | Unknown | + + + | Race | Unknown | + + + | Ethnic Group | Unknown | + + + Author + + + | Author | [facility] | | | and Hermannana | + + + | Organization | [facility] | | | and Hermannana [...] [place], [place] | | | | | [address] | | + + + + + | Greta Broncheau | ECON | [place], [place] | | | | | [address] | | + + + + + Care Team Providers + +------+ + | Care Director Surface Transportation Name | Role | Phone | + +------+ + | Becky Jennings | PCP | | + +------+ + Encounter Details +--------+ + + + + | Date | Type | Department | Care Team | Description | +--------+ + + + + | 02/15/ | Hospital | [facility] | | | | 2012 | Encounter | MED CTR XRAY [address] | | | | | [address] | | | | | | [place] [address] | | | | | | [phone] | | | +--------+ + + + [...] 50,000 Units by | | 0 | /25/20 | | | (VITAMIN D3) 98955 | mouth Once a week. | | | 12 | 4 | | UNITS CAPS | | | | | | + + + +---------+ + + | dextromethorphan | Take 60 mg by mouth | | 0 | | | | (DELSYM) 30 MG/5ML | 2 times daily. | | | | 4 | | liquid | | | | | | + + + +---------+ + + | | TABS; One tablet as | | 0 | 03/25/20 | | | Diphenoxylate-Atropi | directed when | | | 12 | 4 | | ne (LOMOTIL PO) | needed for diarrhea | | | | | + + + +---------+ + + | fluticasone | Inhale 1 puff into | | 0 | | | | (FLOVENT HFA) 110 | the lungs 2 times | | | | 4 | | mcg/puff inhaler | daily. | | | | | + + + +---------+ + + | levofloxacin | Take 500 mg by mouth | | 0 | | | | (LEVAQUIN) 500 mg | Daily. | | | | 4 | | tablet | | | | | | + + + +---------+ + + | lisinopril | Take 10 mg by mouth | | 0 | 03/29/20 | | | (PRINIVIL, ZESTRIL) | Daily. | | | 12 | 4 | | 10 mg tablet | | | | | | + + + +---------+ + + | metoprolol | Take 1 tablet by | 30 | 6 | 02/16/20 | | | succinate | mouth Daily. | tablet | | 13 | 3 | | (TOPROL-XL) 25 mg 24 | | | | | | | hr tablet | | | | | | + + + +---------+ + + | Multiple | Take 1 tablet by | | 0 | | | | Vitamins-Minerals | mouth Daily. | | | | 6 | | (ADULT MULTIVITAMIN | | | | | | | WITH MINERALS/IRON) | | | | | | | TABS | | | | | | + + + +---------+ + + | OMEGA 3 1000 MG | Take 1,000 capsules | | 0 | | | | CAPS | by mouth Daily. | | | | 6 | + + + +---------+ + + | omeprazole | Take 20 mg by mouth | | 0 | 03/25/20 | | | (PRILOSEC) 20 mg | Daily. | | | 12 | 4 | | capsule | | | | | | + + + +---------+ + + | predniSONE | Take 50 mg by mouth | | 0 | | | | (DELTASONE) 50 mg | Daily. | | | | 4 | | tablet | | | | [...] + + + | ECHO COMPLETE | Routin | 02/16/2013 | | Results for this | | | e | 1:12 PM | | procedure are in the | | | | PDT | | results section. | + +--------+ + + + documented in this encounter Results ECHO Complete (02/16/2013 1:12 PM PDT) + + | Specimen | + + | | + + + + + | Narrative | Performed At | + + + | [facility] | [place] | | Department [address] [facility] | [facility] [place] | | [ rep [address]] [ rep [facility] | | st zip] Signed | - IMAGING | | | | | Patient Name: ZOFIA YOUNG Physician: | | | FARAZ.[id number] : 1960 Age: 52 Sex: F Unit #: [id number] | | | Exam Date: 02/15/13 Location: [facility] | | | Report #: [id number] Page: | | | %(RAD)RES..mtdd.print.filter("pg") of %(RAD) | | | RES..mtdd.print.filter("tpg") | | | | | | Accession Number: [id number] | | | E C H O C A R D I O G R A P H Y R E P O R T | | | HEIGHT: 5'4" WEIGHT: 210# | | | CUSTOMER ACCOUNT REPRESENTATIVE: AP REFERRING DR: LEANN READING | | | DR: ILEANA DIAGNOSIS: HX BURKITT'S TUMOR, 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 INDICATION: Cardiomyopathy. | | | TECHNICAL: Quality of study is very poor with no parasternal or | | | apical views, patient status post recent severe URI. | | | HEMODYNAMICS: The patient is in underlying sinus rhythm throughout | | | the procedure with a ventricular rate in the 80s. Blood pressure | | | is 120/78 at the time of the study. RESULTS: CHAMBERS: | | | The left ventricle appears to be of grossly normal end diastolic and | | | end systolic dimensions , as judged from subcostal views with | | | grossly normal systolic function. An accurate ejection fraction is | | | difficult to obtain, measuring at 81% using M-mode. Assessment of | | | regional wall motion is suboptimal. The left atrium is calculated | | | as being mildly enlarged using 2D measurements. Visually appears | | | to be at the upper limit of normal in size. Right atrium is of | | | normal size. Right ventricle is of normal size and systolic | | | function. Wall thickness could not be clearly seen. | | | VALVES: Aortic valve cannot be adequately studied. No significant | | | insufficiency is noted. Mitral valve appears to be normal without | | | any significant thickening, prolapse or regurgitation. Tricuspid | | | valve appears to be normal. No obvious insufficiency is noted. | | | Assessment is suboptimal due to limited views available. | | | Pulmonic valve is not seen. MISCELLANEOUS: Aortic | | | arch measures at 30 mm. Aortic root is not accurately measured. | | | Pericardium is normal without epicardial effusion. The IVC is | | | normal. DIASTOLOGY: Diastolic parameters are not | | | accurately measured. IMPRESSION: 1. LIMITED STUDY DUE | | | TO POOR ECHOCARDIOGRAPHIC WINDOWS. 2. GROSSLY NORMAL LV | | | SIZE AND SYSTOLIC FUNCTION, WITH LIMITED EVALUATION GIVEN POOR | | | ECHOCARDIOGRAPHIC WINDOWS. 3. NO SIGNIFICANT VALVULAR | | | DISEASE NOTED, WITH SUBOPTIMAL EVALUATION GIVEN LIMITED WINDOWS. | | | 4. CONSIDER MUGA SCAN FOR ALTERNATE ATTEMPT AT MEASURING | | | SYSTOLIC FUNCTION AND EJECTION FRACTION. | | | Dictated Date/Time: 02/16/2013 13:12 Transcribed Date/Time: | | | 02/16/2013 13:58 Production Machinist: | | | <<Signature on File>> | | | S | | | Leander Tejeda MD02/17/13 [id number] <Electronically signed by Darline Gregorio. | | | Ileana LOZADA> Darline Tejeda MD 02/16/13 1312 | | | Production Machinist: [employer] Ceuuoxdfcoakd03/18/13 [id number] | | | Antonio Renee MD | | + + + + + + + + | Performing | Address | City/State/Zipcode | Phone Number | | Organization | | | | + + + + + | [facility] | [address] | [place] | [phone] | | [facility] | | [address] | | | - IMAGING | | | | + + + + + documented in this encounter Visit Diagnoses Not on filedocumented in this encounter
--- OUTSIDE RECORDS SUMMARY | ~2019-09-11 | XMS | Encounter Summary ---
Demographics + + + | Address | [address] | | | [place] [address] | + + + | Home Phone | | + + + | Preferred Language | Unknown | + + + | Marital Status | Single | + + + | Mandaen Affiliation | NON | + + + | Race | or | + + + | Ethnic Group | Not or | + + + Author + + + | Author | [facility] | + + + | Organization | [facility] | + + + | Address | Unknown | + + + | Phone | Unavailable | + + + Support + + + + + | Name | Relationship | Address | Phone | + + + + + | Yue Fischer | ECON | [address] | | | | | [place] | | | | | [address] | | + + + + + | Greta Broncheau | ECON | Unknown | | + + + + + Care Team Providers + +------+ + | Care Cooker Sulfate Name | Role | Phone | + [...] +--------+--------+ + + + + Encounter Details +--------+---------+ + + + | Date | Type | Department | Care Team | Description | +--------+---------+ + + + | 11/13/ | Office | Hematology/Medical | Rachel Smith MD | Burkitt's lymphoma | | 2012 | Visit | Oncology at [facility] | [address] | (HCC) (Primary Dx) | | | | [address] | [place], | | | | | Mailcode: CH7M | [place] [address] | | | | | [facility] | [phone] | | | | | and Healing, | | | | | | Building | | | | | | [place], [place] | | | | | | [address] | | | | | | [phone] | | | +--------+---------+ + + + Social History + + [...] + + + | Blood Pressure | 82/45 | 11/13/2011 1:37 PM | | | | | PST | | + + + + + | Pulse | 110 | 11/13/2011 1:37 PM | | | | | PST | | + + + + + | Temperature | 35.1 C (95.1 F) | 11/13/2011 1:37 PM | | | | | PST | | + + + + + | Respiratory Rate | 14 | 11/13/2011 1:37 PM | | | | | PST | | + + + + + | Oxygen Saturation | 96% | 11/13/2011 1:37 PM | | | | | PST | | + + + + + | Inhaled Oxygen | - | - | | | Concentration | | | | + + + + + | Weight | 87.5 kg (193 lb) | 11/13/2011 1:37 PM | | | | | PST | | + + + + + | Height | 162.6 cm (5' 4") | 11/13/2011 1:37 PM | | | | | PST | | + + + + + | Body Mass Index | 33.13 | 11/13/2011 1:37 PM | | | | | PST | | + + + + + documented in this encounter Progress Notes Rachel Smith MD - 11/13/2011 1:34 PM PSTFormatting of this note might be different from sandoval lyon. ID: Zofia Christian is a 51 y.o. female who has been referred to the Hematology Clinic by Dr Emanuel Blackwell for newly diagnosed Burkitt's lymphoma History of Present Illness: Ms. Christian was in her usual good state of health until the later part of August 2011 when she developed some abdominal pain. It initially started on her r ight lateral side and she described it as sharp and constant. It was associated with a more generalized abdominal pain and some sweats. She was seen in her local ED on 2010 where she was thought to have a urinary tract infect and was treated with a course of ciprof loxacin and hydrocodone. She developed some nausea with dry heaves and was seen by her PCP on 09/09/2011. She was di agnosed with diabetes and started on glipizide and Glargine. She was also started on lisinop ril for hypertension. She continued to have nausea with emesis prompting a return visit to her PCP office on 09/30/2011. She continued to have abdominal pain and had an abdominal ult rasound on 10/01/2011 that showed multiple fluid filled structures with some internal echoes that were adjacent to the pancrease. She was also noted to have a fatty liver. She had a fo llow-up abdomen/pelvic CT scan on 10/05/2011 that showed numerous masses in the retroperitone um. The largest of the masses measured 10 cm. She was seen by Dr. Jonathan Aranda, Surgery, for further evaluation of her mass. She preferre d the procedure be done at [facility] and she was referred to Dr. Silvio Rm. She was seen on for her initial evaluation and then she underwent a laparoscopic exploration of her abdomin on 11/10/2010. biopsy of the mass on 11/10/2010. There was diffuse peritoneal studdi ng seen as well as low volume ascites. She had a normal appearing gall bladder. Biopsies o f her right upper and quadrant abdominal wall nodules were obtained. Her ascites was draine d and sent for cytology. She was discharged from the hospital the following day and a refer ral was made to the hematology clinic Her preliminary lymph node biopsy returned as likely Burkitt's lymphoma and she was called to come to the clinic earlier then initially scheduled. She currently notes some drenching night sweats and fatigue. Her abdomen is tender and continues to have some nausea with emes is. She is able move her bowels. She denies any fevers, chills or cough. She denies any v isual changes or focal neurologic symptoms. She has some chest tightness that is not relate d to activity. She has lost 40 lbs over the past 2 months that is unintentional. She has a norexia but is able to each some. Before 08/2011, she was not taking any routine medication s Current Medication List Name Sig ASPIRIN 81 MG TAB Take 81 mg by mouth once daily. ERGOCALCIFEROL (VITAMIN D2) 50,000 UNIT CAP Take 50,000 Units by mouth every seven days. GLIPIZIDE ER 5 MG 24 HOUR TAB Take 5 mg by mouth once daily. HYDROCODONE-ACETAMINOPHEN 5 MG-325 MG TAB Take 1-2 Tabs by mouth every six hours as needed for moderate pain. Not to exceed 10 tablets per any 24 hour period. (Not to exceed 3250 mg o f acetaminophen from all products per 24 hour period.) HYDROCODONE-ACETAMINOPHEN 5 MG-325 MG TAB Take 1-2 Tabs by mouth every six hours as needed. Not to exceed 10 tablets per any 24 hour period. (Not to exceed 3250 mg of acetaminophen fr om all products per 24 hour period.) INSULIN GLARGINE 100 UNIT/ML SUB-Q Inject 10 Units under the skin (SUBC) once daily at bedt angela. LISINOPRIL 10 MG TAB Take 10 mg by mouth once daily. MORPHINE 15 MG TAB Take 15 mg by mouth two times daily. FISH OIL ORAL Take 100 mg by mouth once daily. OMEPRAZOLE 20 MG TAB, DELAYED RELEASE Take 20 mg by mouth once daily. POLYETHYLENE GLYCOL 3350 17 GRAM ORAL POWDER PACKET Take 1 Packet by mouth once daily. SULFAMETHOXAZOLE-TRIMETHOPRIM 800 MG-160 MG TAB Take 1 Tab by mouth once daily. Allergies: No known drug allergies Past Medical History: 1) Burkitt's lymphoma 2) Diverticulosis 3) Diabetes 4) H/O caesarian 1982 Social History: Ms. Christian is and lives in the [facility]. She is half and half . She is currently unemployed. 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 She has 6 children and 15 grandchildren. She smokes 1/4 to 1/2 packs of cigarettes daily. She does no drink alcohol. She occasionally smokes marijuana. She does not use any other illicit drugs. Family History: Her father at 67 year of age with heart disease. Her mother is alive. She has 4 brothers and 3 sisters. She had a brother who at age 37 from unclear cause but had a history of alcohol abuse. One of her brothers has CAD and diabetes. Her sister h as diabetes. Alcoholism, heart disease and hypertension runs in the family. Review of Systems: General: Denies fevers or chills. Has drenching night sweats. No infectious symptoms HEENT: No oral lesions or ulcerations. No difficulty chewing or swallowing. No rhinitis Heme/Lymph nodes: No signs or symptoms of bleeding, such as unusual bruising. Not aware of any adenopathy. Respiratory: No cough. No hemoptysis. No wheezing or pleuritic chest pain. Has dyspnea with activity Cardiac: No chest pain or palpitations. No orthopnea or PND GI: No nausea or vomiting. No diarrhea. No melena or hematochezia. Has abdominal pain, bloa ting or distention. Musculoskeletal: No unusual joint or bone pain. No edema. Back: No new or unusual back pain. No flank pain. Skin: No bruises. Neuro: No neuropathy. No new or unusual headaches. Has dizziness. Physical Examination: Vitals: Ht 162.6 cm (5' 4")( < 3 %ile), Wt 87.544 kg (193 lbs)( < 3 %ile), BP 82/45, Pulse 110, Temperature 35.1 C (95.1 F), Temperature source Tympanic, RR 14, SpO2 96%, BMI 33.1 3 kg/(m^2). General appearance: Well appearing, well nourished in no acute distress. Alert and coopera tive Head: Atraumatic, normocephlic, pupils equal and reactive to light, anicteric, OP clear Neck: Supple Lungs: Clear to auscultation and percussion Heart: Regular rate and rhythm. No rub or murmur Abdomen: Diffusely tender with mild distension. Normal bowel sounds. No guarding. No ap preciable fluid wave. No rebound tenderness. Back: Midline and non-tender. No CVA tenderness Extremities: No edema Neurological: Non-focal Skin: No bruises or petechia. No rashes Lymph nodes: No palpable cervical, supraclavicular, axillary or inguinal adenopathy. Labs: 11/13/2011 16:00 11/13/2011 16:04 11/13/2011 16:21 SODIUM, PLASMA (LAB) 137 WHITE CELL COUNT 7.2 POTASSIUM, PLASMA (LAB) 4.1 RED CELL COUNT 4.31 CHLORIDE, PLASMA (LAB) 91 (A) HEMOGLOBIN 11.9 (L) TOTAL CO2, PLASMA (LAB) 28 HEMATOCRIT 35.4 (L) BUN, PLASMA (LAB) 20 MCV 82.2 CREATININE PLASMA (LAB) 1.4 (A) MCH GLUCOSE, PLASMA (LAB) 72 MCHC 33.5 CALCIUM, PLASMA (LAB) 9.8 RDW 13.7 PHOSPHORUS, PLASMA (LAB) 4.4 PLATELET COUNT 508 (H) URIC ACID, PLASMA (LAB) 12.1 (H) NEUTROPHIL % 61 AST(SGOT) 20 LYMPHOCYTE % 25 ALT (SGPT) 17 MONOCYTE % 9 (H) ALK PHOS 82 EOS % 4 (H) LD TOTAL, PLASMA 234 (H) BASO % 1 BILIRUBIN TOTAL 0.6 NEUTROPHIL # 4.4 TOTAL PROTEIN, PLASMA (LAB) 8.2 (A) LYMPHOCYTE # 1.8 ALBUMIN, PLASMA (LAB) 3.5 MONOCYTE # 0.7 EOS # 0.3 BASO # 0.1 INR 1.15 APTT 34.0 Imaging: None new SURGICAL PATHOLOGY: (abbreviated) 11/10/2010 SOURCE OF SPECIMEN:A Right abdominal wall FS SOURCE OF SPECIMEN:B RLQ abdominal wall SOURCE OF SPECIMEN:C Peritoneal fluid for cytology SOURCE OF SPECIMEN:D Right upper quadrant washing for cytology SOURCE OF SPECIMEN:E Left upper quadrant washing for cytology SOURCE OF SPECIMEN:F Pelvic washing for cytology Final Pathologic Diagnosis: A: Right abdominal wall, biopsy: - High grade B cell lymphoma, consistent with Burkitt lymphoma (see comment) B: Right lower quadrant abdominal wall, biopsy: - High grade B cell lymphoma, consistent with Burkitt lymphoma (see comment) - Immunophenotype: Bcl-6, CD10, CD19, CD20, CD22, and sKappa light chain positive - EBV positive by in situ hybridization - Ki-67 proliferative rate greater than 90% C: Peritoneal fluid-sent to Cytology: - No tissue received in Surgical Pathology, see separate Cytology report D: Right upper quadrant washing-sent to Cytology: - No tissue received in Surgical Pathology, see separate Cytology report E: Left upper quadrant washing-sent to Cytology: - No tissue received in Surgical Pathology, see separate Cytology report F: Pelvic washing-sent to Cytology: -No tissue received in Surgical Pathology, see separate Cytology report Comment: Morphologically the neoplastic cells are not entirely characteristic for Burkitt l ymphoma; however, the proliferative rate, immunophenotype, and cytogenetic findings are typi mikey. Preliminary cytogenetic findings (FISH) show the presence of t(8;14). Please see final cytogenetics report when complete. The case was shared at an intradepartmental consensus con bernardo and Phil Wren Gatter, Leslee and Sun agree. Dr. Shimon Harvey was notified on 11/11/11 of the diagnosis. Case seen by: Michelle Cabrera M.D./Surgical Pathology Resident Moises Huerta M.D./Hematopathologist :randy Microscopic Description: Specimen A: Right abdominal wall. The specimen shows a diffuse accumulation of large lympho id cells with minimal amounts of eosinophilic cytoplasm and high N:C ratios. Occasional apop totic cells are identified. The permanent specimen, B shows better histology with a diffuse proliferation of lymphoid cells with high N:C ratios, nuclei that are round to oval with laine ewhat irregular nuclear contours, fine chromatin, and several small nucleoli. There are agustín tic figures that are increased in number as well as apoptotic cells, although not a classic starry merna pattern. There are occasional aggregates of macrophages with eosinophilic cytopla sm. Immunologic Analysis: The analysis was performed by flow cytometry on the right abdominal w all (specimen A). The tissue yielded 2 x 106 cells with 68% viability. A monoclonal B cell p opulation is identified with immunophenotype: CD10, CD19, CD20, CD22, and sKappa light chain positive. Approximately 52% of cells are lymphocytes, composed of 39% T cells, 55% B cells, and 6% NK cells. The T cells have a CD4:CD8 ratio of 1.4:1 and no aberrant antigen expressi on. The B cells are essentially all part of the monoclonal population. Please see below of a ntibodies tested. Antibodies Tested CD2 CD3 CD4 CD5 CD7 CD8 CD10 CD19 CD20 CD22 CD23 CD25 CD34 CD38 CD45 CD5 6 CD103 sKappa sLambda Immunohistochemical Stains: Additional immunologic analysis was performed on the right lowe r quadrant abdominal wall (specimen B) using antibodies to CD3, CD5, CD10, CD20, CD21, CD34, Bcl-2, Bcl-6, Ki-67, MUM1, p53, and TdT. The lymphoma is positive for Bcl-6, CD10 and CD20 and negative for Bcl-2, CD5, CD34 and TdT. Rare cells are MUM1 positive. Background T cells stain with CD3, CD5 and Bcl-2. CD21 shows a rare residual follicle network. The Ki-67 prolif erative rate is greater than 90%. In Situ Hybridization: Molecular probes were used in separate in situ hybridization analyse s for Ignacio-Palmer virus encoded mRNA. Appropriate controls, including RNA controls, were pe rformed and test validity confirmed. The lymphoma is EBV positive. Rendering Diagnostician: Moises Huerta M.D. Pathologist Cytogenetics (abbreviated) IMPRESSIONS AND RECOMMENDATIONS: Fluorescent in situ hybridization (FISH) was performed with the probe sets and number of ce lls scored listed below. With the IGH/MYC probe set, 55% of cells had the dual fusion signal pattern consistent with t(8;14) and IGH/MYC fusion. (An extra IGH signal was observed with the IGH/BCL2 probe in 54% of cells, and a split signal for MYC was observed in 69% of cells; both of these signal patterns are consistent with the IGH/MYC fusion described above.) Results with BCL6 were within the normal limits established by our laboratory. (Comment: This FISH study assesses only the probe-specific regions listed below. G-banded c hromosome analysis is recommended to assess the full karyotype for potential clonal abnormal ities.) INTERPHASE FISH ANALYSIS SUMMARY: Cells Scored: 100 Probe(s): More MYC (8q24) break-apart Cells Scored: 100 Probe(s): More BCL6 (3q27) break-apart Cells Scored: 100 Probe(s): More LSI IGH (14q32) (SG) / BCL2 (18q21) (SO) t(14;18) Cells Scored: 100 Probe(s): More IGH (14q32)(SG)/MYC (8q24)(SO) / CEP 8(SA) t(8;14) Preliminary report date: 11/13/2011 The clinical interpretation was made by the clinical process inspector. Rendering Diagnostician: Hong Castañeda PhD, [facility] [place], [facility] Clinical Textile Supervisor Electronically Signed 11/13/2011 3:45PM Assessment: Ms. Christian is a 51 year old with a 2.5 month history of abdominal pain that was initially thought to be related to a UTI. Her pain persisted prompting a U/S on 10/01 showe d some kaykay-pancreatic mass. A follow-up CT scan on 10/05/2011 showed multiple retroperitone al lymphadenopathy. A laparoscopic biopsy on 11/10/2011 showed EBV positive Burkitt's lympho ma. Her FISH showed t(8:14) Consistent with the IgG/Myc fusion confirming her diagnosis of Burkitt's lymphoma. Her laboratory studies show mild tumor lysis with an elevated LDH, uric acid and mild renal insufficiency. She has abdominal pain that is likely due to her Burkit t's. It is also likely her hyperglycemia is related to her lymphoma. I discussed with Ms. Christian and her sister that she has an aggressive type of lymphoma that requires hospitalization to evaluate and treat. Her treatment will depend on her stage, car diac function and other testing. Her disease is very treatable and treatment has a good lucas nce of a durable response. She agrees to be admitted for further evaluation. She will need a bone marrow biopsy for staging which we will do in clinic to facilitate her workup. She was also noted to be hypotensive in the clinic and we will give a liter of normal saline to see if her blood pressure improves. Plan: 1) bone marrow biopsy with flow and cytogenetics today in clinic 2) Admit to the hospital for further evaluation and treatment - PET scan - Echocardiogram 3) Have blood sent for Hep B, Hep c, HIV (done in clinic) 4) Treat tumor lysis with IV fluids, allopurinol 5) PICC placement 6) LP to evaluate for HYDROCRANE OPERATOR disease 7) Would stop glipizide, monitor blood sugars and treat hyperglycemia with insuline sliding scale. 8) Return to the Hematology clinic after discharge from the clinic. The assessment, physical, laboratory finding and plans were reviewed with Ms. Christian. She ac knowledged understanding and is in agreement. All of her questions were addressed to her sa tisfaction. Rachel Smith MD. PhD. Hematology and Medical Oncology documented in this encounter Plan of Treatment Not on filedocumented as of this encounter Procedures + +--------+ + + + | Procedure Name | Priori | Date/Time | Associated Diagnosis | Comments | | | ty | | | | + +--------+ + + + | CMP, POC (BMP+LFT) | Routin | 11/13/2011 | Burkitt's lymphoma | Results for this | | | e | 4:21 PM | (HCC) | procedure are in the | | | | PST | | results section. | + +--------+ + + + | CBC+DIFF,POC | Routin | 11/13/2011 | Burkitt's lymphoma | Results for this | | | e | 4:04 PM | (HCC) | procedure are in the | | | | PST | | results section. | + +--------+ + + + | HIV-1,2 AB/HIV-1 P24 | Routin | 11/13/2011 | Burkitt's lymphoma | Results for this | | AG SCRN | e | 2:36 PM | (HCC) | procedure are in the | | | | PST | | results section. | + +--------+ + + + | HEPATITIS B SURFACE | Routin | 11/13/2011 | Burkitt's lymphoma | Results for this | | AB QUAL, SERUM | e | 2:36 PM | (HCC) | procedure are in the | | | | PST | | results section. | + +--------+ + + + | HEPATITIS B SURFACE | Routin | 11/13/2011 | Burkitt's lymphoma | Results for this | | AG, SERUM | e | 2:36 PM | (HCC) | procedure are in the | | | | PST | | results section. | + +--------+ + + + | HEPATITIS B CORE AB, | Routin | 11/13/2011 | Burkitt's lymphoma | Results for this | | SERUM | e | 2:36 PM | (HCC) | procedure are in the | | | | PST | | results section. | + +--------+ + + + | INR | Routin | 11/13/2011 | Burkitt's lymphoma | Results for this | | | e | 2:07 PM | (HCC) | procedure are in the | | | | PST | | results section. | + +--------+ + + + | APTT (ACT. PART. | Routin | 11/13/2011 | Burkitt's lymphoma | Results for this | | THROMBO TIME) | e | 2:07 PM | (HCC) | procedure are in the | | | | PST | | results section. | + +--------+ + + + | PHOSPHORUS, PLASMA | Routin | 11/13/2011 | Burkitt's lymphoma | Results for this | | | e | 2:07 PM | (HCC) | procedure are in the | | | | PST | | results section. | + +--------+ + + + | URIC ACID, PLASMA | Routin | 11/13/2011 | Burkitt's lymphoma | Results for this | | | e | 2:07 PM | (HCC) | procedure are in the | | | | PST | | results section. | + +--------+ + + + | LDH TOTAL, PLASMA | Routin | 11/13/2011 | Burkitt's lymphoma | Results for this | | | e | 2:07 PM | (HCC) | procedure are in the | | | | PST | | results section. | + +--------+ + + + | LEUKEMIA/LYMPHOMA | Routin | 11/13/2011 | Burkitt's lymphoma | Results for this | | MARKERS - BONE | e | | (HCC) | procedure are in the | | MARROW | | | | results section. | + +--------+ + + + | LAB RESULTS | | 11/13/2011 | | Results for this | | | | 12:00 AM | | procedure are in the | | | | PST | | results section. | + +--------+ + + + | CYTOGENETICS BONE | Routin | 11/13/2011 | Burkitt's lymphoma | Results for this | | MARROW CHROMOSOME | e | | (HCC) | procedure are in the | | ANALYSIS W/ REFLEX | | | | results section. | | FISH | | | | | + +--------+ + + + documented in this encounter Results COMPLETE METABOLIC, POC (11/13/2011 4:21 PM PST) + +---------+ + + + | Component | Value | Ref Range | Performed | Pathologist | | | | | At | Signature | + +---------+ + + + | SODIUM, POC | 137 | 136 - 145 | [facility], | | | | | mmol/L | POINT OF | | | | | | CARE TESTS | | + +---------+ + + + | POTASSIUM, | 4.1 | 3.5 - 5.1 | [facility], | | | POC | | mmol/L | POINT OF | | | | | | CARE TESTS | | + +---------+ + + + | TOTAL CO2, | 28 | 23 - 29 mmol/L | [facility], | | | POC | | | POINT OF | | | | | | CARE TESTS | | + +---------+ + + + | CHLORIDE, | 91 (A) | 98 - 107 mmol/L | [facility], | | | POC | | | POINT OF | | | | | | CARE TESTS | | + +---------+ + + + | GLUCOSE, | 72 | 60 - 99 mg/dL | [facility], | | | POC | | | POINT OF | | | | | | CARE TESTS | | + +---------+ + + + | CALCIUM | 9.8 | 8.5 - 10.5 | [facility], | | | TOTAL, POC | | mg/dL | POINT OF | | | | | | CARE TESTS | | + +---------+ + + + | BUN, POC | 20 | 6 - 20 mg/dL | [facility], | | | | | | POINT OF | | | | | | CARE TESTS | | + +---------+ + + + | CREATININE, | 1.4 (A) | 0.6 - 1.1 mg/dL | [facility], | | | POC | | | POINT OF | | | | | | CARE TESTS | | + +---------+ + + + | ALK PHOS, | 82 | 42 - 98 U/L | [facility], | | | CMP POC | | | POINT OF | | | | | | CARE TESTS | | + +---------+ + + + | ALT, CMP | 17 | 13 - 48 U/L | [facility], | | | POC | | | POINT OF | | | | | | CARE TESTS | | + +---------+ + + + | AST, CMP | 20 | 15 - 41 U/L | [facility], | | | POC | | | POINT OF | | | | | | CARE TESTS | | + +---------+ + + + | BILIRUBIN | 0.6 | 0.3 - 1.2 mg/dL | [facility], | | | TOTAL, CMP | | | POINT OF | | | POC | | | CARE TESTS | | + +---------+ + + + | ALBUMIN, | 3.5 | 3.5 - 4.7 g/dL | [facility], | | | CMP POC | | | POINT OF | | | | | | CARE TESTS | | + +---------+ + + + | PROTEIN | 8.2 (A) | 6.3 - 8 g/dL | [facility], | | | TOTAL, CMP | | | POINT OF | | | POC | | | CARE TESTS | | + +---------+ + + + + + | Specimen | + + | Blood | + + + + + + + | Performing | Address | City/State/Zipcode | Phone Number | | Organization | | | | + + + + + | [facility] | [address] | [place] [address] | | | OF CARE TESTS | | | | + + + + + CBC, POC (11/13/2011 4:04 PM PST) + + + + + + | Component | Value | Ref Range | Performed | Pathologist | | | | | At | Signature | + + + + + + | NEUTROPHIL% | 58.4 | 50.0 - 70.0 % | [facility], | | | POC | | | POINT OF | | | | | | CARE TESTS | | + + + + + + | NEUTROPHIL# | 4.6 | 1.8 - 7.7 K/cu | [facility], | | | POC | | mm | POINT OF | | | | | | CARE TESTS | | + + + + + + | HCT POC | 34.6 (L) | 36.0 - 46.0 % | [facility], | | | | | | POINT OF | | | | | | CARE TESTS | | + + + + + + | HGB POC | 12.2 | 12.0 - 16.0 | [facility], | | | | | g/dL | POINT OF | | | | | | CARE TESTS | | + + + + + + | LYMPH# POC | 2.4 | 1.0 - 4.8 K/cu | [facility], | | | | | mm | POINT OF | | | | | | CARE TESTS | | + + + + + + | LYMPH% POC | 30.6 | 18.0 - 42.0 % | [facility], | | | | | | POINT OF | | | | | | CARE TESTS | | + + + + + + | MCH POC | 29.1 | 29.0 - 32.0 pg | [facility] | | | | | | POINT OF | | | | | | CARE TESTS | | + + + + + + | MCHC POC | 35.3 (H) | 33.4 - 35.5 | [facility] | | | | | g/dL | POINT OF | | | | | | CARE TESTS | | + + + + + + | MCV POC | 82.5 | 80.0 - 96.0 fL | [facility], | | | | | | POINT OF | | | | | | CARE TESTS | | + + + + + + | MID-RANGE% | 11.0 | 7.0 - 15.0 % | [facility], | | | POC | | | POINT OF | | | | | | CARE TESTS | | + + + + + + | MID-RANGE# | 0.9 | 0.0 - 2.0 K/cu | [facility], | | | POC | | mm | POINT OF | | | | | | CARE TESTS | | + + + + + + | MPV POC | 8.7 | 7.4 - 10.4 fL | [facility], | | | | | | POINT OF | | | | | | CARE TESTS | | + + + + + + | PLT POC | 559 (H) | 150 - 400 K/cu | [facility], | | | | | mm | POINT OF | | | | | | CARE TESTS | | + + + + + + | RBC POC | 4.19 | 4.00 - 5.20 | [facility], | | | | | M/cu mm | POINT OF | | | | | | CARE TESTS | | + + + + + + | RDW POC | 14.3 | 11.5 - 15.0 % | [facility], | | | | | | POINT OF | | | | | | CARE TESTS | | + + + + + + | WBC POC | 7.9 | 4.4 - 11.0 K/cu | [facility], | | | | | mm | POINT OF | | | | | | CARE TESTS | | + + + + + + + + | Specimen | + + | Blood | + + + + + + + | Performing | Address | City/State/Zipcode | Phone Number | | Organization | | | | + + + + + | [facility] | [address] | [place] [address] | | | OF CARE TESTS | | | | + + + + + HIV-1,2 AB/HIV-1 P24 AG SCRN, SERUM (11/13/2011 2:36 PM PST) + + + + + + | Component | Value | Ref Range | Performed | Pathologist | | | | | At | Signature | + + + + + + | HIV-1,2 | NonreactiveComment: | | [facility] | | | AB/HIV-1 | Reference Range: | | DEPARTMENT | | | P24 AG | Non-Reactive: | | OF | | | SCREEN | HIV-1 p24 Ag | | PATHOLOGY | | | | and HIV-1,2 Ab | | | | | | | | | | | | not detected. | | | | | | Presumptive Reactive: | | | | | | Presumptive | | | | | | evidence of HIV-1 p24 Ag | | | | | | and/or HIV-1,2 Ab; | | | | | | Sample sent for | | | | | | confirmatory assay. | | | | | | However, the RT-PCR | | | | | | test for HIV is more | | | | | | sensitive and | | | | | | recommended for either | | | | | | confirmation or early | | | | | | detection. | | | | | | Performance has not been | | | | | | established for the use | | | | | | of cadaveric | | | | | | specimens, or the use of | | | | | | body fluids other than | | | | | | human serum or | | | | | | plasma. | | | | + + + + + + + + | Specimen | + + | Blood - Blood | + + + + + + + | Performing | Address | City/State/Zipcode | Phone Number | | Organization | | | | + + + + + | [facility] | [address] | [place] [address] | | | PATHOLOGY | [address] | | | + + + + + HEPATITIS B CORE AB, SERUM (11/13/2011 2:36 PM PST) + + + + + + | Component | Value | Ref Range | Performed | Pathologist | | | | | At | Signature | + + + + + + | HEPATITIS B | Negative | Negative | [facility] | | | CORE AB, | | | [facility] | | | SERUM | | | LABORATORY | | + + + + + + + + | Specimen | + + | Blood - Blood | + + + + + | Narrative | Performed At | + + + | [facility] | [facility] | | [facility] [place] [address] | REGIONAL | | [place] [address] | LABORATORY | + + + + + + + + | Performing | Address | City/State/Zipcode | Phone Number | | Organization | | | | + + + + + | [facility] | [address] [facility] | [place] [address] | | | LABORATORY | | | | + + + + + HEPATITIS B SURFACE AG, SERUM (11/13/2011 2:36 PM PST) + + + + + + | Component | Value | Ref Range | Performed | Pathologist | | | | | At | Signature | + + + + + + | HEPATITIS B | Negative | Negative | [facility] | | | SURFACE | | | REGIONAL | | | AG, SERUM | | | LABORATORY | | + + + + + + + + | Specimen | + + | Blood - Blood | + + + + + | Narrative | Performed At | + + + | [facility] | [facility] | | [facility] [place] [address] | REGIONAL | | [place] [address] | LABORATORY | + + + + + + + + | Performing | Address | City/State/Zipcode | Phone Number | | Organization | | | | + + + + + | [facility] | [address] | [place] [address] | | | LABORATORY | | | | + + + + + HEPATITIS B SURFACE AB QUAL, SERUM (11/13/2011 2:36 PM PST) + + + + + + | Component | Value | Ref Range | Performed | Pathologist | | | | | At | Signature | + + + + + + | HEP B | POSITIVE (A) | Negative | [facility] | | | SURFACE AB | | | REGIONAL | | | QUAL, SERUM | | | LABORATORY | | + + + + + + + + | Specimen | + + | Blood - Blood | + + + + + | Narrative | Performed At | + + + | [facility] | [facility] | | [facility] [place] [address] | REGIONAL | | [place] [address] | LABORATORY | + + + + + + + + | Performing | Address | City/State/Zipcode | Phone Number | | Organization | | | | + + + + + | [facility] | [address] | [place] [address] | | | LABORATORY | | | | + + + + + LDH TOTAL, PLASMA (11/13/2011 2:07 PM PST) + +---------+ + + + | Component | Value | Ref Range | Performed | Pathologist | | | | | At | Signature | + +---------+ + + + | LD TOTAL, | 234 (H) | 110 - 205 U/L | [...] | + + + + + | [facility] | [address] | [place] [address] | | | PATHOLOGY | [address] | | | + + + + + APTT (ACT. PART. THROMBO TIME) (11/13/2011 2:07 PM PST) + + + + + + | Component | Value | Ref Range | Performed | Pathologist | | | | | At | Signature | + + + + + + | APTT | 34.0Comment: | 26.0 - 36.0 | [facility] | [...] DEPARTMENT OF | [address] | [place] [address] | | | PATHOLOGY | [address] | | | + + + + + INR (11/13/2011 2:07 PM PST) + + + + + + | Component | Value | Ref Range | Performed | Pathologist | | | | | At | Signature | + + + + + + | INR | 1.15Comment: | 0.90 - 1.20 INR | [facility] [...] | + + + + + | [facility] | [address] | [place] [address] | | | PATHOLOGY | [address] | | | + + + + + PHOSPHORUS, PLASMA (11/13/2011 2:07 PM PST) + +-------+ + + + [...] | + + + + + | [facility] DEPARTMENT OF | [address] | [place] [address] | | | PATHOLOGY | [address] | | | + + + + + URIC ACID, PLASMA (11/13/2011 2:07 PM PST) + + + + + + | Component | Value | Ref Range | Performed | Pathologist | | | | | At | Signature | + + + + + + | URIC ACID, | 12.1 (H) | 2.5 - 6.2 mg/dL | [facility] | | | PLASMA | | [...] | + + + + + | [facility] | [address] | [place] [address] | | | PATHOLOGY | [address] | | | + + + + + LAB RESULTS (11/13/2011 12:00 AM PST) + + + | Narrative | Performed At | + + + | | | + + + + + | Transcriptions | + + | Other, Faculty - 11/18/2011 11:23 AM PST | + + LEUKEMIA/LYMPHOMA MARKERS - BONE MARROW (11/13/2011) + + + + + + | Component | Value | Ref Range | Performed | Pathologist | | | | | At | Signature | + + + + + + | HEMATOPATHO | SOURCE OF SPECIMEN:A | | [facility] | | | LOGY | Bone Marrow | | DEPARTMENT | | | | AspirateSOURCE OF | | OF | | | | SPECIMEN:B Bone Marrow | | PATHOLOGY | | | | ClotSOURCE OF SPECIMEN:C | | | | | | Bone Marrow | | | | | | BiopsySOURCE OF | | | | | | SPECIMEN:D Peripheral | | | | | | Blood Clinical | | | | | | History:The patient is a | | | | | | 51-year-old female with | | | | | | 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 Final | | | | | | Pathologic | | | | | | Diagnosis:Peripheral | | | | | | blood: - | | | | | | Borderline anemia and | | | | | | thrombocytosis | | | | | | Bone marrow biopsy, | | | | | | aspirate, and clot | | | | | | section: - | | | | | | Normocellular marrow | | | | | | with trilineage | | | | | | hematopoiesis, - | | | | | | No evidence of marrow | | | | | | involvement by B cell | | | | | | lymphoma, see note | | | | | | Note: There is a | | | | | | borderline marrow | | | | | | lymphocytosis, about 15 | | | | | | | | | | | | | | | | | | 20%, andcomprised | | | | | | mostly of | | | | | | immunophenotypically | | | | | | unremarkable T cells and | | | | | | a smallernumber of | | | | | | polyclonal small B | | | | | | cells. Case seen | | | | | | by:Grover Bowles, | | | | | | M.D./HematopathologistT: | | | | | | 11/17/11/rdl Gross | | | | | | Description:Peripheral | | | | | | blood, bone marrow | | | | | | aspirate, biopsy, and | | | | | | clot were received | | | | | | andprocessed. Both clot | | | | | | and the core biopsy were | | | | | | fixed in formalin and | | | | | | thecore biopsy was | | | | | | decalcified. | | | | | | Heparinized bone | | | | | | marrow aspirate was | | | | | | alsoreceived for flow | | | | | | cytometric analysis. | | | | | | The specimen was lysed | | | | | | and a cellsuspension | | | | | | prepared for the | | | | | | analysis. A | | | | | | Contreras-stained cytoprep | | | | | | of thecell suspension | | | | | | was prepared for | | | | | | morphologic correlation | | | | | | with the flowcytometry | | | | | | results. | | | | | | Microscopic | | | | | | Description:Peripheral | | | | | | Blood Smear: Red cells | | | | | | are minimally reduced | | | | | | with | | | | | | minimalanisocytosis. | | | | | | No nucleated red cells | | | | | | or teardrops. White | | | | | | blood cell countand | | | | | | differential is | | | | | | consistent with reported | | | | | | values. No large | | | | | | atypicallymphoid | | | | | | population is seen. | | | | | | Platelets appear | | | | | | increased and there are | | | | | | somelarge platelets. | | | | | | Bone Marrow Aspirate: | | | | | | The aspirate smears | | | | | | contain spicules and | | | | | | arecellular. Complete | | | | | | maturation of myeloid | | | | | | and erythroid precursors | | | | | | and theM:E ratio is | | | | | | about 3:1. No | | | | | | significant dysplasia is | | | | | | seen. No | | | | | | atypicallymphoid | | | | | | population is | | | | | | identified. A bone | | | | | | marrow aspirate | | | | | | differential count | | | | | | includes: Myeloid | | | | | | precursors 63%(including | | | | | | 3% eosinophils), | | | | | | erythroid precursors | | | | | | 21%, lymphocytes | | | | | | 13%,monocytes 1%, and | | | | | | blasts 2%. Bone | | | | | | Marrow Biopsy and Clot | | | | | | Section: The core | | | | | | biopsy, about 1.5 cm | | | | | | inlength, has an | | | | | | estimated 40-50% | | | | | | cellularity with | | | | | | maturing | | | | | | trilineagehematopoiesis. | | | | | | The M:E ratio is | | | | | | normal. A lymphoid | | | | | | infiltrate is notseen. | | | | | | The clot section | | | | | | shows several very small | | | | | | particles with similar | | | | | | findings. | | | | | | Immunologic Analysis:The | | | | | | analysis was performed | | | | | | by flow cytometry on the | | | | | | bone marrow | | | | | | aspiratespecimen. The | | | | | | analysis identifies a | | | | | | lymphocyte population | | | | | | that isapproximately 20% | | | | | | of gated cells and | | | | | | predominately T cells. | | | | | | B cells areabout 5% of | | | | | | gated cells and are | | | | | | polyclonal with no | | | | | | clonal or | | | | | | [id number] B-cell | | | | | | population seen. The T | | | | | | cells show a normal | | | | | | CD4:LU0wxifg with no | | | | | | antigen aberrancy. No | | | | | | increased CD34 | | | | | | population is | | | | | | noted.Please see below | | | | | | for antibodies tested. | | | | | | Antibodies Tested | | | | | | CD2 CD3 CD4 | | | | | | CD5 CD7 CD8 CD10 | | | | | | [id number] CD22 CD23 CD25 | | | | | | CD34 CD38 CD45 | | | | | | [id number] sKappa | | | | | | sLambda | | | | | | Immunohistochemical | | | | | | Stains: Additional | | | | | | immunologic analysis was | | | | | | performedon paraffin | | | | | | sections of the core | | | | | | biopsy by an | | | | | | immunoperoxidase | | | | | | technique,using the CD3, | | | | | | CD20, and CD79a | | | | | | antibodies. These stain | | | | | | a mix of B (CD20 | | | | | | tffUE35g) and T cells | | | | | | and no atypical B cell | | | | | | population. Several very | | | | | | smallpredominantly T | | | | | | cell aggregates are | | | | | | noted. The percentage of | | | | | | B cells isconsistent | | | | | | with the 20% seen by | | | | | | flow cytometry. | | | | | | (Analyte specific | | | | | | reagents are used in | | | | | | many laboratory tests | | | | | | necessary forstandard | | | | | | medical care and | | | | | | generally do not require | | | | | | FDA approval. This | | | | | | testwas developed and | | | | | | its performance | | | | | | characteristics | | | | | | determined by | | | | | | [facility]. It | | | | | | has not been cleared or | | | | | | approved by the [place] Food | | | | | | and DrugAdministration.) | | | | | | Laboratory | | | | | | Data:Code : [address] | | | | | | [facility] [address] | | | | | | [place]11/07/[id number] | | | | | | -RACHEL SMITH | | | | | | [facility]-[id number] | | | | | | WRD: REF | | | | | | C:11/13/2011 | | | | | | 16:00R:11/13/2011 | | | | | | Date: | | | | | | 11/13/11 | | | | | | 10/22/11 | | | | | | Time: | | | | | | 16:00 13:51 | | | | | | Request: | | | | | | [id number] | | | | | | [id number] | | | | | | | | | | | | | | | | | | | | | | | | -- WBC | | | | | | 7.2 | | | | | | 9.0 | | | | | | | | | | | | (4.4-11.0) K/cumm | | | | | | RBC | | | | | | 4.31 3.88 | | | | | | L | | | | | | (4.00-5.20) M/cumm | | | | | | * HGB | | | | | | 11.9 L | | | | | | 10.9 L | | | | | | (12.0-16.0) | | | | | | g/dL* HCT | | | | | | 35.4 L | | | | | | 32.3 L | | | | | | (36.0-46.0) %* | | | | | | MCV | | | | | | 82.2 | | | | | | 83.1 | | | | | | (80.0-96.0) fL | | | | | | MCHC | | | | | | 33.5 | | | | | | 33.8 | | | | | | (33.4-35.5) | | | | | | g/dL RDW | | | | | | 13.7 | | | | | | 12.9 | | | | | | | | | | | | (11.5-15.0) % | | | | | | PLT | | | | | | 508 H 468 | | | | | | H | | | | | | (150-400) K/cumm | | | | | | * | | | | | | | | | | | | DIFFERENTIAL | | | | | | Neutrophils | | | | | | 61 | | | | | | | | | | | | (50-70) % | | | | | | Lymphocytes | | | | | | 25 | | | | | | | | | | | | (18-42) % | | | | | | Monocytes | | | | | | 9 H | | | | | | | | | | | | (2-8) | | | | | | %* Eosinophils | | | | | | 4 H | | | | | | | | | | | | (1-3) | | | | | | %* Basophils | | | | | | 1 | | | | | | | | | | | | (< 3) | | | | | | % Neut | | | | | | Abs 4.4 | | | | | | | | | | | | | | | | | | (1.8-7.7) K/cumm | | | | | | Lymph Abs | | | | | | 1.8 | | | | | | | | | | | | (1.0-4.8) K/cumm | | | | | | Monocytes Abs | | | | | | 0.7 | | | | | | | | | | | | (< 0.9) | | | | | | K/cumm Eos Abs | | | | | | 0.3 | | | | | | | | | | | | (< 0.6) | | | | | | K/cumm Basophils | | | | | | Abs 0.1 | | | | | | | | | | | | (< 0.3) | | | | | | My [...] Bowles | | | | | | MAleshaPathologistElectroni | | | | | | carolyn Signed 11/18/2011 | | | | | | 1:47PM | | | | + + + + + + + + | Specimen | + + | Bone marrow - Bone | | marrow | + + + + + + + | Performing | Address | City/State/Zipcode | Phone Number | | Organization | | | | + + + + + | [facility] | [address] | [place] [address] | | | PATHOLOGY | [address] | | | + + + + + CYTOGENETICS BONE MARROW CHROMOSOME ANALYSIS W/ REFLEX FISH (11/13/2011) + + + + + + | Component | Value | Ref Range | Performed | Pathologist | | | | | At | Signature | + + + + + + | CHROMOSOME | Bone Marrow: Full | | [facility] | | | REPORT | StudyReasons for | | DIAGNOSTIC | | | | Referral: Burkitt | | | | | | Lymphoma | | LABORATORIE | | | | Chromosome Results: | | S | | | | NormalKARYOTYPE RESULTS: | | | | | | 46,XX[25] | | | | | | IMPRESSIONS AND | | | | | | RECOMMENDATIONS:All | | | | | | twenty-five metaphase | | | | | | cells examined appeared | | | | | | normal female. | | | | | | Thank [...] | | | | feel free tocontact us. | | | | | | CYTOGENETIC | | | | | | ANALYSIS SUMMARY:Number | | | | | | of Cells Analyzed: | | | | | | 25 Banding Level: | | | | | | <400-450Number of Cells | | | | | | Karyotyped: 3 | | | | | | Banding Method: | | | | | | GTW The clinical | | | | | | interpretation was made | | | | | | by the clinical | | | | | | process inspector. | | | | | | Rendering | | | | | | Diagnostician: Latosha | | | | | | Lucy PhD, ABMG, | | | | | | FACMGClinical | | | | | | CytogeneticistElectronic | | | | | | allarjun Signed 11/20/2011 | | | | | | 10:50PMRendering | | | | | | Diagnostician: Henrique | | | | | | Al LOZADA, SANTOSH, | | | | | | FACMGClinical | | | | | | GeneticistElectronically | | | | | | Signed 11/21/2011 | | | | | | 5:57AM | | | | + + + + + + + + | Specimen | + + | Bone marrow - Bone | | marrow | + + + + + + + | Performing | Address | City/State/Zipcode | Phone Number | | Organization | | | | + + + + + | [facility] | [address] | [place] [address] | | | DIAGNOSTIC | [address] [...]
--- OUTSIDE RECORDS SUMMARY | ~2019-09-11 | XMS | Encounter Summary ---
Demographics + + + | Address | [address] | | | [place] [address] | + + + | Home Phone | | + + + | Preferred Language | Unknown | + + + | Marital Status | Single | + + + | Pentecostalism Affiliation | NON | + + + | Race | or | + + + | Ethnic Group | Not or | + + + Author + + + | Author | [facility] | + + + | Organization | [facility] | + + + | Address | Unknown | + + + | Phone | Unavailable | + + + Support + + + + + | Name | Relationship | Address | Phone | + + + + + | Yue Fischer | ECON | [address] | | | | | [place] | | | | | [address] | | + + + + + | Greta Broncheau | ECON | Unknown | | + + + + + Care Team Providers + +------+ + | Care Research Contracts Supervisor Name | Role | Phone | + +------+ + | Becky Jennings | PCP | | + +------+ + Reason for Visit + + + | Reason | Comments | + + + | Pre-op evaluation | | + + + Encounter Details +--------+---------+ + + + | Date | Type | Department | Care Team | Description | +--------+---------+ + + + | 10/22/ | Office | Preoperative | Margarita Turcios | Retroperitoneal | | 2010 | Visit | Medicine Clinic at | J, [facility] | mass; Other | | | | [facility] 4th Floor Day | | specified | | | | Stay [address] [facility] | | pre-operative | | | | [address] | | examination; Type 2 | | | | Mailcode: UHN65 | | diabetes mellitus | | | | [place] | | (HCC); HTN | | | | [address] [place], [place] | | (hypertension); | | | | [address] | | Morbid obesity (HCC) | | | | [phone] | | | +--------+---------+ + + + [...] + + + | Blood Pressure | 101/65 | 10/22/2011 1:28 PM | | | | | PST | | + + + + + | Pulse | 97 | 10/22/2011 1:28 PM | | | | | PST | | + + + + + | Temperature | 35.8 C (96.4 F) | 10/22/2011 1:28 PM | | | | | PST | | + + + + + | Respiratory Rate | 18 | 10/22/2011 1:28 PM | | | | | PST | | + + + + + | Oxygen Saturation | 96% | 10/22/2011 1:28 PM | | | | | PST | | + + + + + | Inhaled Oxygen | - | - | | | Concentration | | | | + + + + + | Weight | 90.7 kg (200 lb) | 10/22/2011 1:28 PM | | | | | PST | | + + + + + | Height | 162.6 cm (5' 4") | 10/22/2011 1:28 PM | | | | | PST | | + + + + + | Body Mass Index | 34.33 | 10/22/2011 1:28 PM | | | | | PST | | + + + + + documented in this encounter Patient Instructions Patient Instructions Tam Margarita Bebe, [employer] - 10/22/2011 2:05 PM PSTPREOPERATIVE INSTRUC TIONS Take 8 units of Lantus Insulin the night before surgery Do not eat or drink anything after midnight the night before surgery. TAKE the following medications with a sip of water on the morning of surgery: Omeprazole vicodin if needed Do not take any Aspirin, vitamin E or non-steroidal anti-inflammatory (NSAIDs i.e. Advil , Aleve, Ibuprofen) or herbal supplements seven days prior to your surgery. These drugs may interfere with normal blood clotting and may cause excessive bleeding and bruising during or after the surgery. Please see the list below for more products that contain Aspirin, Ibupro fen, or Vitamin E If you are taking Coumadin (warfarin), Plavix or any other blood thinners please let you r surgical team know as medication changes will be necessary. If you need a pain medication for general purposes, use Tylenol as directed. If you are in doubt about any medications that you are taking, please contact our office . AVOID THESE MEDICATIONS FOR 7 DAYS BEFORE SURGERY PRODUCTS CONTAINING ASPIRIN OR NON-STEROIDAL ANTI-INFLAMMATORY DRUGS (NSAIDs) Advil, Aleve, Gina-Herrin, Anacin, Arthopan, Ascriptin, Aspergum, Aspirin with and without codeine, Landon aspirin. Bufferin, Butalbital, Butazone, Cataflam, Clinoril, Co-Advil, Coges ic, Daypro, Diclofenac, Diflunisal, Dipyridamole, Disalcid, Yrn s, Dolene, Dolobid, Easpi rin, Etodolac, Feldene, Fenoprofen, Ibuprofen, Indocin, Indomethacin, Lodine, Meclofenamate, Menadol, Meprobamate/Aspirin, Midol, Motrin and Motrin IB, Nabumetone, Naproxen, Norgesic, Nuprin, Nytol, Nyquil, Orudis, Oruvail, Oxyphenbutazone, Pamprin, Pepto Bismol, Percodan, P ersantine, Phenylbutazone, Piroxicam, Relafen, Robomol, Rufen, Sine-aid, Alexandria s cold tablets, Sulindac, Talwin, Tolectin, Triaminicin, Trigesic, Voltaren, Zorprin. OTHER PRODUCTS WHICH MAY PROMOTE BLEEDING Vitamin E, Gingko Biloba Important Guidelines Please do not shave the surgical site before the surgery Do not smoke, drink alcohol or use recreational drugs for 24 hours before your surgery Do not eat any hard candy or chew gum after midnight the night before your surgery. Watch for any change in your health condition. Let your surgeon know right away if you do not feel well. Do not wear makeup, perfume, lotions or powder. Remove any nail korean from at least one fingernail. Do not wear any jewelry to the hospital. Wear loose, comfortable clothing. Bring the case and solution for your contact lenses or wear your glasses. Leave all your valuables at home. Allow enough travel time so you re not late for your check in for surgery. Take a bath or shower and remember to shampoo your hair using your usual hair product be fore your arrival at the hospital. Please remember to brush your teeth the night before and the morning of your procedure. HIBICLENS GUIDE TO GENERAL SKIN CLEANSING AT HOME BEFORE SURGERY General Skin Cleansing Instructions: Hibiclens is not to be used on the head or face, keep out of the eyes, ears and mouth. Hibiclens is not to be used in the genital area. Hibiclens should not be used if you are allergic to chlorhexidine gluconate or any other in gredients in this preparation. *See Hibiclens label for full product information and precautions. When you bathe or shower the night before your surgery: If you plan to wash your hair, do so with your regular shampoo. Then rinse hair and body th oroughly to remove any shampoo residue. Wash your face with your regular soap or water only. Thoroughly rinse your body with warm water from neck down. Use Hibiclens as you would any other liquid soap. Please do not put the Hibiclens on a wash cloth, apply directly to the skin and wash gently. Apply the minimum amount of Hibiclens n ecessary to cover the skin. Leave the Hibiclens on your skin for 1 minute, then rinse off. Rinse thoroughly with warm water. Do not use your regular soap after applying and rinsing Hibiclens. When using Hibiclens for a second day in a row (morning of surgery, as soon as you wake up) : Shower/bathe again using Hibiclens in the same method as described above. Do not apply any lotions, deodorants, powders or perfumes to the body areas that have been cleaned with Hibiclens. Pain management after surgery Following surgery, at regular intervals, your nurse will ask you to rate your pain on a scale of 0-10 (0 is no pain and 10 is the worst pain you can imagine). A variety of pain management strategies may be appropriate, such as intravenous medicati ons, oral medications, peripheral nerve bocks or epidural catheters that can deliver local a nesthetic to cover the area of your surgical incision. Please discuss this with your anesth esiologist to receive additional information about what might be appropriate for you. The goal for pain control therapy is to be comfortable enough to change your position, c ough and take deep breaths. You will be asked to do such activities to help prevent complic ations. Preventing post op complications Use an incentive spirometer or peep breathe to keep your lungs working properly an d to help prevent respiratory complications. It helps you take long, deep breaths. Use it at least once every hour while you are awake. Leg and feet exercises will maintain good circulation and help prevent blood clots in yo ur legs. Sometimes your doctor will order air compression stockings. Compressed air helps the circulation in your legs. Walking and moving will help stimulate normal circulation and deep breathing. After you r surgery, your nurse may ask you to sit, stand or walk. Surgery Check in Locations Admitting [facility], [facility] Surgery Check in Time: Someone from your surgeon's office will provide you with informat ion regarding your check in time. If you have any questions about this, please contact your surgeon's office. Going Home Your surgical team will decide when you are medically ready to go home. You will require transportation home on the day of discharge. Pain medications and physi mikey activity restrictions may limit your ability to drive safely. It is also recommended th at you have someone assist you and look after you on the first night after you are released to go home. If you stayed in the hospital after surgery, please arrange for your ride to come for yo u around 9AM on the day your doctor says you can go home. Check out time is 11AM. If you have questions or concerns after you go home, call your doctor s office. If it is after office hours, call the [facility] paper rewinder operator at [phone] and ask them to page your doc tor. documented in this encounter Progress Notes Maria Eugenia Layne MA - 10/22/2011 2:55 PM PST Addended by: MARIA EUGENIA LAYNE CMA on: 2010 02:55 PM Modules accepted: Orders, SmartSet aria Eugenia Layne MA - 10/22/2011 2:55 PM PST Venipuncture performed in clinic, blood sample obtained from Right antecubital site Hemoglo bin A1C POCT performed during clinic visit. Blood sample obtained from venipuncture performe d to obtain other lab tests. argarita Turcios FNP - 10/22/2011 2:23 PM PSTFrida Christian was evaluated today in Preoperative Medicine Clin ic for her scheduled procedure on 10/22/11. Frida Christian does not require further medical optimization or risk stratification, and can proceed to surgery as scheduled according to A guidelines. 2007 ACC/ AHA Perioperative Guidelines 1. Need for emergency noncardiac surgery? b. No -> Proceed to next step. 2. Active Cardiac Conditions? These conditions mandate further investigation and manageme nt. A. Acute MD within 7 days: no B. Unstable angina/Recent MD (7- 30 days): no C. Decompensated CHF: no D. Significant arrhythmia: None E. Severe valvular disease: NONE 3. Low risk surgery? b. No -> proceed with next step. 4. Good functional capacity? (>4 METS)a. Yes -> proceed with surgery. Please see scanned Preop H & P in the "Media" tab under ANESTHESIA PREOP EVALUATION. RAHUL DOUGLAS [facility] [address] [facility] [phone] documented in th is encounter Plan of Treatment Not on filedocumented as of this encounter Procedures + +--------+ + + + | Procedure Name | Priori | Date/Time | Associated Diagnosis | Comments | | | ty | | | | + +--------+ + + + | RI COLLECTION VENOUS | Routin | 10/22/2011 | Other specified | | | BLOOD,VENIPUNCTURE | e | 2:55 PM | pre-operative | | | | | PST | examination | | + +--------+ + + + | HEMOGLOBIN A1C, POC | Routin | 10/22/2011 | Retroperitoneal | Results for this | | | e | 2:04 PM | mass Type 2 | procedure are in the | | | | PST | diabetes mellitus | results section. | | | | | (HCC) Other | | | | | | specified | | | | | | pre-operative | | | | | | examination | | + +--------+ + + + | BASIC METABOLIC SET | Routin | 10/22/2011 | Retroperitoneal | Results for this | | (NA, K, CL, TCO2, | e | 1:51 PM | mass Type 2 | procedure are in the | | BUN, CR, GLU, CA) | | PST | diabetes mellitus | results section. | | | | | (HCC) Other | | | | | | specified | | | | | | pre-operative | | | | | | examination | | + +--------+ + + + | CBC ONLY | Routin | 10/22/2011 | Retroperitoneal | Results for this | | | e | 1:51 PM | mass Other | procedure are in the | | | | PST | specified | results section. | | | | | pre-operative | | | | | | examination | | + +--------+ + + + | TYPE AND SCREEN | Routin | 10/22/2011 | Retroperitoneal | Results for this | | | e | 1:51 PM | mass Other | procedure are in the | | | | PST | specified | results section. | | | | | pre-operative | [...] + + documented in this encounter Results HEMOGLOBIN A1C, POC (10/22/2011 2:04 PM PST) + +---------+ + + + | Component | Value | Ref Range | Performed | Pathologist | | | | | At | Signature | + +---------+ + + + | HEMOGLOBIN | 6.9 (H) | 4.0 - 5.7 % | [facility] - | | | A1C,POC | | | [facility] | | | | | | [facility] | | [...] [facility] | [address] | [place], [place] | | | [facility] OF CARE | [address] | [phone] | | | TESTS | | | | + + + + + CBC ONLY (10/22/2011 1:51 PM PST) + + + + + [...] + + + | RED CELL | 3.88 (L) | 4.00 - 5.20 | [facility] | | | COUNT | | M/cu mm | DEPARTMENT | | | | | | OF | | | | | | PATHOLOGY | | + + + + + + | HEMOGLOBIN | 10.9 (L) | 12.0 - 16.0 | [facility] | | | | | g/dL | DEPARTMENT | | | | | | OF | | | | | | PATHOLOGY | | + + + + + + | HEMATOCRIT | 32.3 (L) | 36.0 - 46.0 % | [facility] | | | | | | DEPARTMENT | | | | | | OF | | | | | | PATHOLOGY | | + + + + + + | MCV | 83.1 | 80.0 - 96.0 fL | [facility] [...] + + + + | RDW | 12.9 | 11.5 - 15.0 % | [facility] | | | | | | DEPARTMENT | | | | | | OF | | | | | | PATHOLOGY | | + + + + + + | PLATELET | 468 (H) | 150 - 400 K/cu | [...] + + + + | [facility] | [address] | [place] [address] | | | PATHOLOGY | [address] | | | + + + + + BASIC METABOLIC SET (NA, K, CL, TCO2, BUN, CR, GLU, CA) (10/22/2011 1:51 PM PST) + + + + + + | Component | Value | Ref Range | Performed | Pathologist | | | | | At | Signature | + + + + + + | GLUCOSE, | 68 | 60 - 99 mg/dL | [facility] | | | PLASMA | | | DEPARTMENT | | | (LAB) | | | OF | | | | | | PATHOLOGY | | + + + + + + | BUN, PLASMA | 21 (H) | 6 - 20 mg/dL | [facility] | | | (LAB) | | | DEPARTMENT | | | | | | OF | | | | | | PATHOLOGY | | + + + + + + | CREATININE | 0.93 | 0.60 - 1.10 | [facility] | [...] + + + + | CALCIUM, | 9.6 | 8.6 - 10.2 | [facility] | | | PLASMA | | mg/dL | DEPARTMENT | | | (LAB) | | | OF | | | | | | PATHOLOGY | | + + + + + + | EGFR | > 60 | >60 mL/min | [facility] | | | - | | | DEPARTMENT | | | [place] | | | OF | | | | | | PATHOLOGY | | + + + + + + | EGFR NON | > 60Comment: GFR is | >60 mL/min | [facility] | | | -ENRRIQUE | estimated using the MDRD | | DEPARTMENT | | | RICAN | equation recommended by | | OF | | | | theNational Kidney | | PATHOLOGY | | | | Disease Education | | | | | | Program. Estimated GFR | | | | | | Interpretive | | | | | | Information: <60 | | | | | | mL/min/1.73 sq m | | | | | | Chronic Kidney Disease | | | | | | <15 mL/min/1.73 sq m | | | | | | Kidney Failure | | | | | | Estimated GFR greater | | | | | | than 60mL/min/1.73 is of | | | | | | limited clinical Value. | | | | | | The MDRD equation is | | | | | | not valid in the | | | | | | following situations: - | | | | | | Patients under 18 years | | | | | | of age - Severe | | | | | | malnutrition or obesity | | | | | | - Vegetarian diet - | | | | | | Rapidly changing kidney | | | | | | function | | | | + + + [...] + | [facility] DEPARTMENT | [address] | [place] [address] | | | PATHOLOGY | [address] | | | + + + + + TYPE AND SCREEN (10/22/2011 1:51 PM PST) + + + + + [...] | + + + + + | [facility] DEPARTMENT OF | [address] | [place] [address] | | | PATHOLOGY | [address] | | | + + + + + 12 LEAD ECG (10/22/2011 1:38 PM PST) [...] | | | | | MONIKA HORN ([id number]) on | | | | | | 10/24/2011 11:29:45 AM | | | | + + + + + + + + | Specimen | + + | | + + + + + | Narrative | Performed At | + + + | Please click | [facility] | | on view image for the detailed interpretation from [employer] results. | CARDIOLOGY | + + + + + + + + | Performing | Address | City/State/Zipcode | Phone Number | | Organization | | | | + + + + + | [facility] | [address] | [place], [place] | | | CARDIOLOGY | [address] | [phone] | | + + + + + documented in this encounter Visit Diagnoses + + | Diagnosis | + + | Retroperitoneal mass Abdominal or pelvic swelling, mass or lump, unspecified site | + + | Other specified pre-operative examination | + + | Type 2 diabetes mellitus (HCC) Type II or unspecified type diabetes mellitus without | | mention of complication, not stated as uncontrolled | + + | HTN (hypertension) Unspecified essential hypertension | + + | Morbid obesity (HCC) Morbid obesity | + + documented in this encounter
--- OUTSIDE RECORDS SUMMARY | ~2019-09-11 | XMS | Encounter Summary ---
Demographics + + + | Address | [address] | | | [place] [address] | + + + | Home Phone | | + + + | Preferred Language | Unknown | + + + | Marital Status | | + + + | Amish Affiliation | Unknown | + + + | Race | Unknown | + + + | Ethnic Group | Unknown | + + + Author + + + | Author | [facility] | | | and Hermannana | + + + | Organization | [facility] | | | and [...] [place], [place] | | | | | [address] | | + + + + + | Greta Broncheau | ECON | [place], [place] | | | | | [address] | | + + + + + Care Team Providers + +------+ + | Care Battery Loader Name | Role | Phone | + +------+ + | Becky Jennings | PCP | | + +------+ + Encounter Details +--------+ + + + + | Date | Type | Department | Care Team | Description | +--------+ + + + + | 11/14/ | Hospital | [facility] | | | | 2013 - | Encounter | [facility] | | | [facility] [address] | | | | 12/01/ | | [place], [place] | | | | 2013 | | [address] | | | | | | [phone] | | | +--------+ + + + [...] + + + +---------+ + + | azithromycin | Take 250 mg by mouth | | 0 | | | | (ZITHROMAX) 250 mg | Daily. Take 2 | | | | 4 | | tablet | tablets by mouth on | | | | | | | day 1 the 1 tablet | | | | | | | on days 2-5 | | | | | + + + +---------+ + + | Cholecalciferol | Take 50,000 Units by | | 0 | 03/25/20 | | | (VITAMIN D3) 28611 | mouth Once a week. | | [...] | | Take 2 tablets by | | 0 | | | | HYDROcodone-acetamin | mouth every 6 hours | | | | 4 | | ophen (NORCO) 5-325 | as needed. | | | | | | mg per tablet | | | | | | [...] + | CBC WITH | Routin | 11/14/2013 | | Results for this | | DIFFERENTIAL | e | 1:38 PM | | procedure are in the | | | | PST | | results section. | + +--------+ + + + | LACTATE | Routin | 11/14/2013 | | Results for this | | DEHYDROGENASE | e | 1:38 PM | | procedure are in the | | | | PST | | results section. | + +--------+ + + + | COMPREHENSIVE | Routin | 11/14/2013 | | Results for this | | METABOLIC PANEL | e | 1:38 PM | | procedure are in the | | | | PST | | results section. | + +--------+ + + + documented in this encounter Results CBC with Differential (11/14/2013 1:38 PM PST) + +---------+ + + + | Component | Value | Ref Range | Performed | Pathologist | | | | | At | Signature | + +---------+ + + + | MANUAL | NO | | [facility] | | | [facility] ? | | | [facility] | | | | | | [facility] - | | | | | | LABORATORY | | + +---------+ + + + | WBC | 8.4 | 4.0 - 11.0 K/uL | [facility] | | | | | [facility] | | | | [facility] | [facility] | | | | | | [facility] - | | | | | | LABORATORY | | + +---------+ + + + | RBC | 3.87 | 3.70 - 5.20 | [facility] | | | | | M/uL | [facility] | | | | | | [facility] | | | | | | C[facility] - | | | | | | LABORATORY | | + +---------+ + + + | Hemoglobin | 12.9 | 11.5 - 16.0 | [facility] | | | | | gm/dL | [facility] | | | | | | [facility] | | | | | | [facility] - | | | | | | LABORATORY | | + +---------+ + + + | Hematocrit | 36.7 | 34.0 - 47.0 % | [facility] | | | | | [facility] | | | | | | [facility] | | | | | | [facility] - | | | | | | LABORATORY | | + +---------+ + + + | MCV | 94.9 | 83.0 - 101.0 fL | [facility] | | | | | [facility] | | | | [facility] | [facility] | | | | | | [facility] - | | | | | | LABORATORY | | + +---------+ + + + | MCH | 33.4 | 28.0 - 35.0 pg | [facility] | | | | | [facility] | | | | | | [facility] | | | | | | [facility] - | | | | | | LABORATORY | | + +---------+ + + + | MCHC | 35.2 | 32.0 - 36.0 | [facility] | | | | | g/dL | [facility] | | | | | | [facility] | | | | | | CENTER - | | | | | | LABORATORY | | + +---------+ + + + | RDW-CV | 12.8 | <15.0 % | [facility] | | | | | [facility] | | | | | | [facility] | | | | | | [facility] - | | | | | | LABORATORY | | + +---------+ + + + | Platelet | 251 | 140 - 440 K/uL | [facility] | | | Count | | | [facility] | | | | | | [facility] | | | | | | [facility] - | | | | | | LABORATORY | | + +---------+ + + + | % | 55.8 | 45 - 75 % | [facility] | | | Neutrophils | | | [facility] | | | | | | MEDICAL | | | | | | CENTER - | | | | | | LABORATORY | | + +---------+ + + + | % | 31.6 | 20 - 45 % | [facility] | | | Lymphocytes | | | [facility] | | | | | | [facility] | | | | | | CENTER - | | | | | | LABORATORY | | + +---------+ + + + | % Monocytes | 7.3 | 4 - 12 % | [facility] | | | | | [facility] | | [facility] | | | | | | [facility] - | | | | | | LABORATORY | | + +---------+ + + + | % | 4.1 | 0 - 5 % | [facility] | | | Eosinophils | | [facility] | | [facility] | | [facility] - | | | | | | LABORATORY | | + +---------+ + + + | % Basophils | 1.2 (H) | 0 - 1 % | [facility] | | | | | | [facility] | | | [facility] | [facility] | | | | | | [facility] - | | | | | | LABORATORY | | + +---------+ + + + | Absolute | 4.7 | 1.5 - 6.6 K/uL | [facility] | | | Neutrophils | | | [facility] | | | | | | [facility] | | | | | | CENTER - | | | | | | LABORATORY | | + +---------+ + + + | Absolute | 2.7 | 0.6 - 3.2 K/uL | [facility] | | | Lymphocytes | | | [facility] | | | | | | MEDICAL | | | | | | CENTER - | | | | | | LABORATORY | | + +---------+ + + + | Absolute | 0.6 | 0.0 - 1.0 K/uL | [facility] | | | Monocytes | | | [facility] | | | | | | [facility] | | | | | | CENTER - | | | | | | LABORATORY | | + +---------+ + + + | Absolute | 0.3 | 0.0 - 0.4 K/uL | [facility] | | | Eosinophils | | | [facility] | | | | | | MEDICAL | | | | | | CENTER - | | | | | | LABORATORY | | + +---------+ + + + | Absolute | 0.1 [...] + | [facility] | [address] | [place] | [phone] | | [facility] | | [address] | | | - LABORATORY | | | | + + + + + | [facility] | [address] | [place] | | | [facility] | | [address] | | | - LABORATORY | | | | + + + + + Comprehensive Metabolic Panel (11/14/2013 1:38 PM PST) + + + + + + | Component | Value | Ref Range | Performed | Pathologist | | | | | At | Signature | + + + + + + | Glucose | 199 (H) | 70 - 109 mg/dL | [facility] | | | | | [facility] | | | | | | [facility]ICAL | | | | | | CENTER - | | | | | | LABORATORY | | + + + + + + | Calcium | 9.2 | 8.3 - 10.5 | [facility] | | | | | mg/dL | [facility] | | | | | | MEDICAL | | | | | | CENTER - | | | | | | LABORATORY | | + + + + + + | Alkaline | 126 (H) | 40 - 110 IU/L | [facility] | | | Phosphatase | | | [facility] | | | | | | MEDICAL | | | | | | CENTER - | | | | | | LABORATORY | | + + + + + + | AST | 28 | 10 - 42 IU/L | [facility] | | | | | | [facility] | | | | | | MEDICAL | | | | | | CENTER - | | | | | | LABORATORY | | + + + + + + | ALT | 49 (H) | 6 - 45 IU/L | [facility] [...] + + + + | Total | 6.4 | 6.0 - 7.8 gm/dL | [facility] [...] + + + + | BUN | 14 | 7 - 18 mg/dL | [facility] [...] | | GFR | -Americans, | | [facility] | | | | please multiply [...] + + + + | BUN/Creatin | 20.0 | 12 - 20 | [facility] | [...] + + + + | K | 3.9 | 3.5 - 5.1 mEq/l | [facility] | | | | | | [facility] | | | | | | MEDICAL | | | | | | CENTER - | | | | | | LABORATORY | | + + + + + + | Cl | 102 | 98 - 109 mEq/l | [facility] [...] + + + | Anion Gap | 12.9 | 6.0 - 17.0 | [facility] | | | | | [...] [address] | [place] | [phone] | | [facility] | | [address] | | | - LABORATORY | | | | + + + + + | [facility] | [address] | [place] | | | [facility] | | [address] | | | - LABORATORY | | | | + + + + + Lactate Dehydrogenase (11/14/2013 1:38 PM PST) + +-------+ + + + | Component | Value | Ref Range | Performed | Pathologist | | | | | At | Signature | + +-------+ + + + | LDH TOTAL | 136 | 91 - 180 IU/L | [facility] | [address] | [place], [place] | [phone] | | [facility] | | [address] | | | - LABORATORY | | | | + + + + + | [facility] | [address] | [place], [place] | | | [facility] | | [address] | | | - LABORATORY | | | | + + + + + documented in this encounter Visit Diagnoses Not on filedocumented in this encounter"
--- OUTSIDE RECORDS SUMMARY | ~2019-09-11 | XMS | Encounter Summary ---
Demographics + + + | Address | [address] | | | [place] [address] | + + + | Home Phone | | + + + | Preferred Language | Unknown | + + + | Marital Status | | + + + | Faith Affiliation | Unknown | + + + | Race | Unknown | + + + | Ethnic Group | Unknown | + + + Author + + + | Author | [facility] | | | and Hermannana | + + + | Organization | [facility] | | | and Hermannana [...] [place], [place] | | | | | [address] | | + + + + + | Greta Broncheau | ECON | [place], [place] | | | | | [address] | | + + + + + Care Team Providers + +------+ + | Care Obgyn Nurse Name | Role | Phone | + +------+ + PCP | Unavailable | + +------+ + Encounter Details +--------+ + + + + | Date | Type | Department | Care Team | Description | +--------+ + + + + | 08/08/ | Abstract | [facility] | Unknown, | | | 2011 | | Anti-Coagulation | MD Alex | | | | | Clinic | [phone] | | | | | | | [...]
--- OUTSIDE RECORDS SUMMARY | ~2019-09-11 | XMS | Encounter Summary ---
Demographics + + + | Address | [address] | | | [place] [address] | + + + | Home Phone | | + + + | Preferred Language | Unknown | + + + | Marital Status | | + + + | Confucianism Affiliation | Unknown | + + + | Race | Unknown | + + + | Ethnic Group | Unknown | + + + Author + + + | Author | [facility] | | | and Hermannana | + + + | Organization | [facility] [...] [place], [place] | | | | | [address] | | + + + + + | Greta Broncheau | ECON | [place], [place] | | | | | [address] | | + + + + + Care Team Providers + +------+ + | Care Core Filer Name | Role | Phone | + +------+ + | Becky Jennings | PCP | | + +------+ + Reason for Referral Diagnostic/Screening (Routine) +--------+--------+ + + + + | Status | Reason | Specialty | Diagnoses / | Referred By | Referred To | | | | | Procedures | Contact | Contact | +--------+--------+ + + + + | Closed | | Radiology | Diagnoses | | [facility] | | | | | | Lm, | Medicine | | | | | Cardiomyopat | ELLEN Albarran | [address] | | | | | hy (HCC) | [address] | [place], | | | | | Procedures | [place] | [place] | | | | | [place] Cardiac | [place], | [address] | | | | | MUGA Scan | [place] | Phone: | | | | | | [address] | [phone] | | | | | | Phone: | Fax: | | | | | | [phone] | [phone] | | | | | | Fax: | | | | | | | [phone] | | +--------+--------+ + + + + Reason for Visit + + + | Reason | Comments | + + + | Follow-up | | + + + | Cardiomyopathy | | + + + Encounter Details +--------+---------+ + + + | Date | Type | Department | Care Team | Description | +--------+---------+ + + + | 02/15/ | Office | [facility] | Lm, | Cardiomyopathy (HCC) | | 2012 | Visit | CARDIOLOGY [address] | ELLEN Albarran [address] | (Primary Dx); Chest | | | | [place], | [place], | pain; Nonischemic/ | | | | [place] [address] | [place] [address] | chemotherapy | | | | [phone] | [phone] | induced | | | | | | cardiomyopathy | +--------+---------+ + + + Social History + +-------+ [...] + + + | Blood Pressure | 118/70 | 02/15/2013 1:32 PM | | | | | PDT | | + + + + + | Pulse | 98 | 02/15/2013 1:32 PM | regular | | | | PDT | | + + + + + | Temperature | - | - | | + + + + + | Respiratory Rate | 20 | 02/15/2013 1:32 PM | | | | | PDT | | + + + + + | Oxygen Saturation | - | - | | + + + + + | Inhaled Oxygen | - | - | | | Concentration | | | | + + + + + | Weight | 101.2 kg (223 lb) | 02/15/2013 1:32 PM | | | | | PDT | | + + + + + | Height | 162.6 cm (5' 4") | 02/15/2013 1:32 PM | | | | | PDT | | + + + + + | Body Mass Index | 38.28 | 02/15/2013 1:32 PM | | | | | PDT | | + + + + + documented in this encounter Patient Instructions Patient Instructions Avis Ma ARNP - 02/15/2013 3:04 PM PDT1. Check blood pressure and pulse twice daily for two weeks and return the log to our office. 2. Discontinue Carvedilol. 3. Start taking Metoprolol succinate 25 mg once a day. 4. Follow up in 1 months. 5. We will do MUGA test before next appointment documented in this encounter Progress Notes HerberthbeckyAntonetten, ELLEN - 02/15/2013 1:36 PM PDTFormatting of this note might be different f rom the original. Subjective: Cardiology Office Visit Date of Service: 02/15/2013 Patient ID: Zofia Young is a 52 y.o. female. PCP: Becky ALCOCER Zofia Young is a 52 y.o. female with a history of non-ischemic, suspecting chemotherapy-i nduced cardiomyopathy, Burkitt's lymphoma, vancomycin-induced nephropathy. She is being see n today for follow up treatment of cardiomyopathy. She was last seen on 07/13/2012 at which time patient was to continue same medical regimen a nd follow up in 6 months with a echocardiogram. Since that time, patient states she has bee n doing "very well". She is on remission from her lymphoma. Today, she would like to addre ss the issue of stopping her medications especially the carvedilol since she has been having "terrible diarrhea for a whole year". Patient is convinced that the carvedilol is what cau sing her daily diarrhea. She has stopped taking occasionally her night dose of carvedilol t o try to decrease the diarrhea during the night. Patient denies any chest pain or shortness of breath at rest or on exertion. She's able to do all her physical activities around the house and exercises every I. today by walking without experiencing any symptoms. She denies any palpitations, lightheadedness or dizziness. Over the last couple weeks she's had a col d for which she has been coughing and having runny nose. She denies any leg swelling. Katrina ent denies having problems laying on bed flat to sleep and waking up with shortness of breat h or gasping for air. Patient Active Problem List Diagnoses DYSFUNCTION OF EUSTACHIAN TUBE SENSORINEURAL HEARING LOSS BILATERAL Chest pain BURKITT'S LYMPHOMA Nonischemic/ chemotherapy induced cardiomyopathy Past Surgical History Procedure Date section, classic 1981 Laparoscopic lymph node biopsy at [facility], grade b cell lymphoma 11/10/2011 Port for chemo left chest 03/2012 Removal of port for chemo 09/12 Patient uncertain on dates Family History Problem Relation Age of Onset Other (See Comment) Father age 71 AMI Other (See Comment) Mother Alive age 83 some health problems Other (See Comment) Brother x3 with heart problems Other (See Comment) Sister with heart problem History Social History Marital Status: Spouse Name: N/A Number of Children: 6 Years of Education: N/A Occupational History Disabled Social History Main Topics Smoking status: Former Smoker Quit date: 10/01/2011 Smokeless tobacco: Never Used Alcohol Use: No Drug Use: Yes Maraevelinaa Sexually Active: None Other Topics Concern None Social History Narrative Exercise:Stairs, walking, 7x weeklyCaffeine Use:2 cups of coffee dailyLiving Situation: Li ves alone Current Outpatient Prescriptions Medication Sig Dispense Refill predniSONE (DELTASONE) 50 mg tablet Take 50 mg by mouth Daily. levofloxacin (LEVAQUIN) 500 mg tablet Take 500 mg by mouth Daily. dextromethorphan (DELSYM) 30 MG/5ML liquid Take 60 mg by mouth 2 times daily. fluticasone (FLOVENT HFA) 110 mcg/puff inhaler Inhale 1 puff into the lungs 2 times dale ly. Multiple Vitamins-Minerals (ADULT MULTIVITAMIN WITH MINERALS/IRON) TABS Take 1 tablet b y mouth Daily. OMEGA 3 1000 MG CAPS Take 1,000 capsules by mouth Daily. Cholecalciferol (VITAMIN D3) 60287 UNITS CAPS Take 50,000 Units by mouth Once a week. Diphenoxylate-Atropine (LOMOTIL PO) TABS; One tablet as directed when needed for diarr hea omeprazole (PRILOSEC) 20 mg capsule Take 20 mg by mouth Daily. Senna TABS One - two tablets by mouth daily as needed lisinopril (PRINIVIL, ZESTRIL) 10 mg tablet Take 10 mg by mouth Daily. metoprolol succinate (TOPROL-XL) 25 mg 24 hr tablet Take 1 tablet by mouth Daily. 30 t ablet 6 Allergies Allergen Reactions Vancomycin Review of Systems Constitutional: Positive for activity change and unexpected weight change. Negative for fev er, chills, appetite change and fatigue. HENT: Negative for nosebleeds, dental problem, sinus pressure and tinnitus. Respiratory: Positive for cough and chest tightness. Negative for apnea, shortness of breat h and wheezing. Cardiovascular: Negative for chest pain, palpitations and leg swelling. Gastrointestinal: Positive for diarrhea. Negative for nausea, constipation and blood in sto ol. Genitourinary: Positive for frequency. Negative for urgency, decreased urine volume and dif ficulty urinating. Musculoskeletal: Positive for back pain and arthralgias. Negative for myalgias, joint swell ing and gait problem. Skin: Negative for rash and wound. Neurological: Negative for dizziness, tremors, seizures, syncope, facial asymmetry, speech difficulty, weakness, light-headedness, numbness and headaches. Hematological: Does not bruise/bleed easily. Psychiatric/Behavioral: Negative for confusion, disturbed wake/sleep cycle and decreased co ncentration. The patient is not nervous/anxious. Objective: Physical Exam Constitutional: She is oriented to person, place, and time. She appears well-developed and well-nourished. Adult female in no acute distress HENT: Head: Normocephalic. Neck: Normal carotid pulses and no JVD present. Carotid bruit is not present. Cardiovascular: Normal rate, regular rhythm, S1 normal, S2 normal and intact distal pulses. PMI is not displaced. Exam reveals no gallop and no friction rub. Murmur heard. Systolic murmur is present with a grade of 1/6 Pulses: Carotid pulses are 2+ on the right side, and 2+ on the left side. Posterior tibial pulses are 2+ on the right side, and 2+ on the left side. Pulmonary/Chest: Effort normal and breath sounds normal. No respiratory distress. She has n o decreased breath sounds. She has no wheezes. She has no rhonchi. She has no rales. Abdominal: Soft. Bowel sounds are normal. She exhibits no abdominal bruit, no ascites and n o pulsatile midline mass. There is no hepatosplenomegaly. There is no tenderness. Musculoskeletal: Normal range of motion. She exhibits no edema. Neurological: She is alert and oriented to person, place, and time. Gait normal. Skin: Skin is warm and dry. No cyanosis. Nails show no clubbing. Psychiatric: Her mood appears not anxious. She does not exhibit a depressed mood. BP 118/70 | Pulse 98 | Resp 20 | Ht 1.626 m (5' 4") | Wt 101.152 kg (223 lb) | BMI 38.28 kg /m2 ECG: Normal sinus rhythm with incomplete right bundle branch block and LAFB, heart rate of 87 beats per minute LAB: Done on 10/20/2012 shows: BUN 17 Creatinine 0.65 GFR> 60 Potassium 4.0 Reviewed records from PCP. Assessment: 1. Nonischemic/chemotherapy-induced cardiomyopathy: A. Echocardiogram from 03/08/2012 shows anterior, anteroseptal hypokinesis. LVEF 50%, mi ld AI, mild MR. B. Normal SPECT MPI on 03/18/2012, LVEF of 50%. C. Echocardiogram done on 02/15/2013 was inconclusive due to to inability to obtain adequa te echocardiography images. In consultation with hair rooting machine operator reading the exam, LVEF is est imated to be normal but it's a nonconclusive study due to the poor imaging, that might be re lated with patient's breast tissue. MUGA test is recommended to be able to evaluate ventric ular function. D. Today, patient is found to be well from cardiac standpoint. She remains asymptomatic a nd functional. Patient is in class I of the [place] [employer] functional class. T here is no fluid retention on physical exam. There are no signs or symptoms of overt conges tive heart failure. MUGA scan is indicated to evaluate ventricular function due to inadequat e echocardiogram study. Patient will like to start carvedilol, but until able to determine ventricular function, she should try to remain on therapy. 2. Burkitt lymphoma: On remission, under follow up by Dr. Renee. 3. Vancomycin-induced nephropathy. Plan: 1. Discontinue carvedilol. 2. Start Metoprolol succinate 25 mg by mouth daily. 3. Check blood pressure and pulse twice daily for two weeks and return the log to our offi ce. 4. Schedule for MUGA scan test to evaluate cardiomyopathy. 5. Follow up in 4-6 weeks or sooner if necessary IAvis ARNP, saw this patient under the direct supervision of Endy Polo MD Portions of this report were transcribed using voice recognition software. Every effort wa s made to ensure accuracy; however, inadvertent computerized machine biller errors may be pre sent. documented in this encounter Plan of Treatment Not on filedocumented as of this encounter Results [place] Cardiac MUGA Scan (06/13/2013 12:25 PM PDT) + + | Specimen | + + | | + + + + + | Narrative | Performed At | + + + | [facility] | [place] | | Department [address] | [facility] | | [ rep [address]] [ rep [facility] | | [facility]] Signed | - IMAGING | | | | | Patient Name: ZOFIA YOUNG Physician: | | | RHYN.01 : 1960 Age: 52 Sex: F Unit #: [id number] | | | Exam Date: 06/13/13 Location: [facility] [place] | | | Report #: [id number] Page: | | | %(RAD)RES..mtdd.print.filter("pg") of %(RAD) | | | RES..mtdd.print.filter("tpg") | | | | | | Accession Number: [id number] | | | REST EQUILIBRIUM VENTRICULOGRAPHY/MARKER SCAN: 06/13/2013 | | | CLINICAL HISTORY: CONGESTIVE HEART FAILURE. | | | PROCEDURE: In a supine position, the patient's red blood cells were | | | labeled by PYP and 25.5 mCi of technetium-99m. The patient was then | | | brought to the nuclear imaging department. The gated images were | | | performed on an anterior, lateral and oblique projection with a | | | standard protocol. FINDINGS: The left ventricular size | | | is normal with normal wall thickness and normal left ventricular | | | systolic function. LVEF is 62%. A right ventricular size normal with | | | normal wall thickness and normal right ventricular systolic | | | function. RVEF is 52%. IMPRESSION: 1. A NORMAL | | | LEFT VENTRICULAR SIZE, WALL THICKNESS AND MOTION. PRESERVED LEFT | | | VENTRICULAR SYSTOLIC FUNCTION AND LVEF IS 62%. 2. A | | | NORMAL RIGHT VENTRICULAR SIZE, WALL THICKNESS AND MOTION. RVEF IS 52%. | | | Dictated Date/Time: 06/13/2013 12:25 Transcribed | | | Date/Time: 06/13/2013 12:52 Footwear Sales Leader: | | | <<Signature on File>> | | | Endy | | | MD Melani FACC FASTucker06/14/13 0643 <Electronically signed by | | | Endy Polo MD, FACC, FACP, JOSE, BENJAMIN> Georgeong | | | MD Melani [facility] JOSE 06/13/13 1225 Footwear Sales Leader: Nabil | | | Sardldjihveka84/13/13 [address] | | + + + + + + + + | Performing | Address | City/State/Zipcode | Phone Number | | Organization | | | | + + + + + | [facility] | [address] | [place] | [phone] | | [facility] | | [address] | | | - IMAGING | | | | + + + + + documented in this encounter Visit Diagnoses + + | Diagnosis | + + | Nonischemic/ chemotherapy induced cardiomyopathy - Primary Other primary | | cardiomyopathies | + + | Chest pain Chest pain, unspecified | + + documented in this encounter
--- OUTSIDE RECORDS SUMMARY | ~2019-09-11 | XMS | Encounter Summary ---
Demographics + + + | Address | [address] | | | [place] [address] | + + + | Home Phone [...] + | Author | [facility] | | | and Hermannana | + + + | Organization | [facility] | | | and [...] [place], [place] | | | | | [address] | | + + + + + | Greta Broncheau | ECON | [place], [place] | | | | | [address] | | + + + + + Care Team Providers + +------+ + | Care Orthophoto Tech/Draftsman Name | Role | Phone | + +------+ + PCP | Unavailable | + +------+ + Encounter Details +--------+ + + + + | Date | Type | Department | Care Team | Description | +--------+ + + + + | 06/28/ | Hospital | [facility] | Leann, | | | 2011 - | Encounter | [facility] | Antonio Infante MD [address] | | | | [place] [address] | [place] | | | 07/01/ | | [place], [place] | [place] [address] | | | 2011 | | [id number] | [phone] | | | | | [phone] | | | +--------+ + + + [...] | 03/25/20 | | | (VITAMIN D3) [id number] | mouth Once a week. | | [...] encounter Progress Notes Antonio Renee MD - 06/04/2012 4:54 AM PDTDOB: 1960 PROGRESS NOTE 06/28/2012 IDENTIFYING STATEMENT: Frida Christian is a 51-year-old woman from [place], [place] with Bu rkitt's lymphoma. ACTIVE DIAGNOSES: 1. Presentation in August of 2011 with intractable searing abdominal pain. Symptoms progr essed and on October 05, 2011, she underwent advanced imaging that demonstrated diffuse mal ignant lymphadenopathy throughout the retroperitoneum. 2. 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 Positive for BCL6, CD10, CD19, CD20, CD22, and kappa light chains. Ignacio-Ba rr virus was positive by in situ hybridization. KI 67 fraction was greater than 90%. 3. Initiation of Rituxan/Hyper-CVAD chemotherapy at [facility] on November 15, 2011. CHIEF COMPLAINT: Frida returned to clinic on June 28, 2012 for followup cycle #4B day #22 of Rituxan/Hyper-CVAD. CURRENT REVIEW OF SYSTEMS: Constitutional: Denies high fever, shaking chills, fatigue, anorexia, nausea, vomiting, o r weight loss. Ear, Nose, Mouth, Throat: Denies odynophagia, dysphagia, or tinnitus. Cardiovascular: De nies shortness of breath, dyspnea on exertion, chest pain, palpitations, or orthopnea. Respiratory: Denies cough, hemoptysis, or sputum production. Gastrointestinal: Positive f or bowel irregularity. Genitourinary: Denies hematuria or dysuria. Musculoskeletal: Denies joint pain and tenderness. Neurologic: Denies headache, visual changes, or numbness/tingling of the extremities. End ocrine: Denies peripheral edema or heat/cold intolerance. Hematologic: Denies spontaneous bruising or bleeding. PAST MEDICAL HISTORY: Treatment-induced congestive heart failure. Cardiac echocardiogram w as performed in the asymptomatic state March 18, 2012 for monitoring for any signs or symptom s of cardiac toxicity related to her anthracycline exposure and disclosed a segmental wall motion abnormality in the anteroseptal and distal anteroseptal left ventricle with an eject ion fraction of 50%. This led to more comprehensive imaging with a myocardial perfusion sca n March 16, 2012 that was unable to redemonstrate any segmental wall motion abnormalities or perfusion defects but did confirm a low ejection fraction of 50%. Current medical managemen t is Coreg and lisinopril. PAST SURGICAL HISTORY: 1. Status post left anterior chest Port-A-Cath. 2. section in 1981. PSYCHOSOCIAL HISTORY: She lives independently in [place], [place]. HABITS: Tobacco: Positive for tobacco use. Alcohol: Positive for remote alcohol use, none currently. Other: Positive for ongoing lavelle miranda use. FAMILY HISTORY: There is no history of cancer in first-degree relatives. ROUTINE MEDICATIONS: 1. Acyclovir 400 mg orally twice daily. 2. Coreg 3.125 mg orally twice daily. 3. Lomotil 1 tablet after each loose stool as needed for diarrhea. 4. Vitamin D 50,000 uni ts orally once a week. 5. Benoit 5/325, 1 or 2 tablets every 4-6 hours as needed for pain. 6. Dilaudid 2 mg every 4 hours as needed for pain. 7. Lisinopril 10 mg orally daily. 8. Ativan 1 mg every 4 hours as needed for nausea, anxiety, or restlessness. 9. Multivitam in once a day. 10. Wanatah-3 fish oil 1 g orally daily. 11. Omeprazole 20 mg orally daily. 13. OxyContin 20 mg orally twice daily. 14. MiraLAX 17 g orally as needed. 15. Compazine 10 mg orally as needed. 16. Metamucil 1/2 unit dose orally daily. 17. Senna as needed. ALLERGIES: No known drug allergies. PHYSICAL EXAMINATION: Blood pressure is 113/76, pulse 76, temperature 36.3. Saturation of oxygen is 94% on room air. Weight is 87.5 kg which is up 3 kg. EYES: Conjunctivae clear. Sclerae anicteric ENMT: [...] of normal saline and 5 cc of 100 unit/mL heparin and deaccessed. ABDOMEN: Soft, nontender, nondistended, [...] in normal limits. LABORATORY DATA: Hemoglobin is 9.1, hematocrit 25.2%, platelet count is 134,000, white co unt 4400. Comprehensive metabolic panel is entirely normal. ASSESSMENT: Burkitt's lymphoma status post 8 cycles of Hyper-CVAD given concurrently with 8 doses of intrathecal chemotherapy. PLAN: We will proceed today with comprehensive reevaluation of Frida's disease status wi th imaging, CT scan of chest, abdomen, and pelvis and bone marrow biopsy and aspiration. If this confirms complete remission, we will have her Port-A-Cath extirpated and cross over t o observation. However, if there is persistent disease we will refer her back to Dr. Evelyn colmenares at [facility] for consideration of salvage treatment options. [facility] requirements for patient undergoing conscious sedation A. History and physical: Plea se see above. B. Airway assessment: 1. Mallampati classification is class I. 2. Cervical spinal mobility is good. 3. Mouth opening 3+ fingerbreaths. 4. No evidence of micrognathia. 5. No evidence of prominent incisors. 6. No evidence of macroglossia. 7. No prior history of tracheostomy. 8. No history of sleep apnea syndrome. C. [place] [employer] patient classification class I. D. Anesthetic plan: Risks, benefits, and alternatives to bone marrow biopsy and aspiration under conscious asad tion for complete restaging evaluation of Burkitt's lymphoma versus performing the procedur e in the office under local anesthesia only versus abandoning the procedure altogether were discussed and Frida indicates her desire to proceed with bone marrow biopsy and aspirati on on July 14, 2012. She is to skip breakfast the morning of the procedure and bring a independent driver. cc: [facility] <Electronically Signed by Antonio Renee MD> 07/05/12 0840 Antonio Renee MD - 06/04/2012 4:54 AM PDTDOB: 1960 PROGRESS NOTE 06/20/2012 IDENTIFYING STATEMENT: Frida Christian is a 51-year-old woman from [place], [place] with Bu rkitt's lymphoma. ACTIVE DIAGNOSES: 1. Presentation in August of 2011 with intractable searing abdominal pain. Symptoms progr essed and on October 05, 2011, she underwent advanced imaging that demonstrated diffuse mal ignant lymphadenopathy throughout the retroperitoneum. 2. 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 Positive for BCL6, CD10, CD19, CD20, CD22, and kappa light chains. Ignacio-Ba rr virus was positive by in situ hybridization. KI 67 fraction was greater than 90%. 3. Initiation of Rituxan/Hyper-CVAD chemotherapy at [facility] on November 15, 2011. CHIEF COMPLAINT: Frida Christian returned to the [facility] on June 20, 2012, cycle #4B, day #15 of Rituxan/Hyper-CVAD chemotherapy. REVIEW OF SYSTEMS: Constitutional: Positive for fatigue. Denies high fever, shaking chills, anorexia, nausea , vomiting, weight loss, or night sweats. Ear, Nose, Mouth, Throat: Denies odynophagia, dysphagia, or tinnitus. Cardiovascular: De nies shortness of breath, dyspnea on exertion, chest pain, palpitations, or orthopnea. Respiratory: Denies cough, hemoptysis, or sputum production. Gastrointestinal: Positive f or chronic bowel irregularity. Genitourinary: Denies hematuria or dysuria. Musculoskeletal: Denies joint pain and tenderness. Neurologic: Denies headache, visual changes, or numbness/tingling of the extremities. End ocrine: Denies peripheral edema or heat/cold intolerance. Hematologic: Denies spontaneous bruising or bleeding. PAST MEDICAL HISTORY, PAST SURGICAL HISTORY, PSYCHOSOCIAL HISTORY, FAMILY HISTORY, AND HAB ITS: See the full dictated note on May 24, 2012, reviewed and unchanged. ROUTINE MEDICATIONS: 1. Acyclovir [...] Multivi tamin 1 tablet orally daily. 9. Wanatah 3 fish oil 1 g orally daily. [...] Include metal. PHYSICAL EXAMINATION: Blood pressure is 88/53, pulse 85, temperature 36.6 degrees Celsius. Saturation of oxygen is 96% on room air. Weight is 87.2 kg. EYES: Conjunctivae clear. Sclerae anicteric ENMT: [...] MUSCULOSKELETAL: No joint tenderness or swelling. SKIN: Positive for petechiae in the lower extremities. EXTREMITIES: No cyanosis, clubbing, or edema. NEUROLOGIC: Alert and oriented x3. Face symmetric. Voice articulate. Station and gait with in normal limits. LABORATORY DATA: Hemoglobin 6.9, hematocrit 19.3%, platelet count 9000, white count 4500. Comprehensive metabolic panel has some minor abnormalities of no clinical significance. ASSESSMENT: Critical anemia and thrombocytopenia due to cycle 4B of Rituxan/Hyper-CVAD ch emotherapy. PLAN: Frida will receive platelets today. She will then return to clinic for packed red blood cells tomorrow. PROCEDURE NOTE: She received 650 mg of oral Tylenol, 25 mg of oral Benadryl and 1 single d onor CMV negative filtered irradiated platelet apheresis unit without adverse effects. cc: [facility] <Electronically Signed by Antonio Renee MD> 06/23/12 1427 Antonio Renee MD - 06/04/2012 4:54 AM PDTDOB: 1960 PROGRESS NOTE 06/21/2012 IDENTIFYING STATEMENT: Frida Christian is a 51-year-old woman from [place], [place] with Bu rkitt's lymphoma. ACTIVE DIAGNOSES: 1. Presentation in August of 2011 with intractable searing abdominal pain. Symptoms progr essed and on October 05, 2011, she underwent advanced imaging that demonstrated diffuse mal ignant lymphadenopathy throughout the retroperitoneum. 2. 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 Positive for BCL6, CD10, CD19, CD20, CD22, and kappa light chains. Ignacio-Ba rr virus was positive by in situ hybridization. KI 67 fraction was greater than 90%. 3. Initiation of Rituxan/Hyper-CVAD chemotherapy at [facility] on November 15, 2011. CHIEF COMPLAINT: Frida Christian [facility] on June 21, 2012 for follo wup, cycle #4B, day #15 of Rituxan/Hyper-CVAD chemotherapy. BRIEF REVIEW OF SYSTEMS: Chief complaint is fatigue. She denies any nausea, vomiting, or anorexia. Denies constipation or diarrhea. Denies any numbness in the fingers and toes. Blood pressure is 103/63, pulse 100, respiratory rate 16, temperature 37.3 degrees Celsius . Her left anterior chest Port-A-Cath was accessed with a Silver needle and a brisk blood ret urn was documented. PROCEDURE NOTE: She received 650 mg of oral Tylenol, 25 mg of intravenous Benadryl and 2 u nits of filtered irradiated CMV negative packed red blood cells without adverse effects. cc: [facility] <Electronically Signed by Antonio Renee MD> 06/23/12 0717 Antonio Renee MD - 06/04/2012 4:54 AM PDTPROGRESS NOTE 06/13/2012 IDENTIFYING STATEMENT: Frida Christian is a 51-year-old woman from [place], [place] with Bu rkitt's lymphoma. ACTIVE DIAGNOSES: 1. Presentation in August of 2011 with intractable searing abdominal pain. Symptoms progr essed and on October 05, 2011, she underwent advanced imaging that demonstrated diffuse mal ignant lymphadenopathy throughout the retroperitoneum. 2. 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 Positive for BCL6, CD10, CD19, CD20, CD22, and kappa light chains. Ignacio-Ba rr virus was positive by in situ hybridization. KI 67 fraction was greater than 90%. 3. Initiation of Rituxan/Hyper-CVAD chemotherapy at [facility] on November 15, 2011. CHIEF COMPLAINT: Frida Christian returned to the [facility] on June 13, 2012 cycle #4B day #8 of Rituxan/Hyper-CVAD chemotherapy. CURRENT REVIEW OF SYSTEMS: Constitutional: Positive for fatigue. Denies high fevers, shaking chills, anorexia, nause a, vomiting, weight loss, or night sweats. Ear, Nose, Mouth, Throat: Denies odynophagia, dysphagia, or tinnitus. Cardiovascular: De nies shortness of breath, dyspnea on exertion, chest pain, palpitations, or orthopnea. Respiratory: Denies cough, hemoptysis, or sputum production. Gastrointestinal: Positive f or bowel irregularity. No melena or bright red blood per rectum. Genitourinary: Denies hematuria or dysuria. Musculoskeletal: Positive for diffuse bone pain. Neurologic: Denies headache, visual changes, or numbness/tingling of the extremities. End ocrine: Denies peripheral edema or heat/cold intolerance. Hematologic: Denies spontaneous bruising or bleeding. PAST MEDICAL HISTORY, PAST SURGICAL HISTORY, PSYCHOSOCIAL HISTORY, FAMILY HISTORY, AND HAB ITS: See the full dictated note on May 24, 2012 which is reviewed and unchanged. ROUTINE [...] Multivi tamin 1 tablet orally daily. 9. Wanatah 3 fish oil 1 g orally daily. [...] Include metal. PHYSICAL EXAMINATION: Blood pressure is 101/66, pulse is 74, temperature 37 degrees Celsiu s. Saturation of oxygen 95% on room air. Weight is 85 kg. EYES: Conjunctivae clear. Sclerae anicteric ENMT: Oropharynx free of lesions, mucous membranes moist. CARDIOVASCULAR: Regular rate and rhythm. Normal S1 and S2 without murmur, gallop, or rub. LUNGS: Good air movement bilaterally. No rhonchi, wheeze, or rales. CHEST: Left anterior chest Port-A-Cath was accessed with a Silver needle and a brisk blood return was documented. Subsequently it was flushed with 20 cc of normal saline and 5 cc of 100 unit/mL heparin and deaccessed. ABDOMEN: Soft, nontender, nondistended, [...] gait with in normal limits. LABORATORY DATA: Notable for a leukemoid reaction due to her recent exposure to Neulasta with a white count of 21,100, hemoglobin is 9.1, hematocrit is 25.6%, platelet count is 146 ,000. Comprehensive metabolic panel is notable for the absence of any clinically meaningful abno rmalities. ASSESSMENT: Burkhitt's lymphoma. PLAN: Continue with observation. Return to the Cancer Center in 1 week for clinical and la boratory followup and transfusion of blood products if needed. Following complete hematopoi etic recovery, we will proceed with a comprehensive repeat evaluation with bone marrow biop sy under conscious sedation and advanced imaging. If this confirms complete remission, we w ill have her referred to a surgeon to have her Port-A-Cath removed and cross over to observ ation without treatment. cc: [facility] <Electronically Signed by Antonio Renee MD> 06/14/12 8461 documented in this encounter Plan of Treatment Not on filedocumented as of this encounter Procedures + +--------+ + + + | Procedure Name | Priori | Date/Time | Associated Diagnosis | Comments | | | ty | | | | + +--------+ + + + | CBC WITH | Routin | 06/28/2012 | | Results for this | | DIFFERENTIAL | e | 11:39 AM | | procedure are in the | | | | PDT | | results section. | + +--------+ + + + | LACTATE | Routin | 06/28/2012 | | Results for this | | DEHYDROGENASE | e | 11:39 AM | | procedure are in the | | | | PDT | | results section. | + +--------+ + + + | COMPREHENSIVE | Routin | 06/28/2012 | | Results for this | | METABOLIC PANEL | e | 11:39 AM | | procedure are in the | | | | PDT | | results section. | + +--------+ + + + | ABO RH | Routin | 06/20/2012 | | Results for this | | | e | 11:11 AM | | procedure are in the | | | | PDT | | results section. | + +--------+ + + + | ABO RH | Routin | 06/20/2012 | | | | | e | 11:11 AM | | | | | | PDT | | | + +--------+ + + + | CBC WITH | Routin | 06/20/2012 | | Results for this | | DIFFERENTIAL | e | 11:11 AM | | procedure are in the | | | | PDT | | results section. | + +--------+ + + + | ANTIBODY SCREEN | Routin | 06/20/2012 | | Results for this | | | e | 11:11 AM | | procedure are in the | | | | PDT | | results section. | + +--------+ + + + | LACTATE | Routin | 06/20/2012 | | Results for this | | DEHYDROGENASE | e | 11:11 AM | | procedure are in the | | | | PDT | | results section. | + +--------+ + + + | COMPREHENSIVE | Routin | 06/20/2012 | | Results for this | | METABOLIC PANEL | e | 11:11 AM | | procedure are in the | | | | PDT | | results section. | + +--------+ + + + | PLATELET PHERESIS | Routin | 06/20/2012 | | Results for this | | | e | 6:23 AM | | procedure are in the | | | | PDT | | results section. | + +--------+ + + + | CROSSMATCH (IN ML) | Routin | 06/20/2012 | | Results for this | | | e | 6:23 AM | | procedure are in the | | | | PDT | | results section. | + +--------+ + + + | CROSSMATCH (IN ML) | Routin | 06/20/2012 | | Results for this | | | e | 6:23 AM | | procedure are in the | | | | PDT | | results section. | + +--------+ + + + | CBC WITH | Routin | 06/13/2012 | | Results for this | | DIFFERENTIAL | e | 10:09 AM | | procedure are in the | | | | PDT | | results section. | + +--------+ + + + | LACTATE | Routin | 06/13/2012 | | Results for this | | DEHYDROGENASE | e | 10:09 AM | | procedure are in the | | | | PDT | | results section. | + +--------+ + + + | COMPREHENSIVE | Routin | 06/13/2012 | | Results for this | | METABOLIC PANEL | e | 10:09 AM | | procedure are in the | | | | PDT | | results section. | + +--------+ + + + | CBC WITH | Routin | 06/06/2012 | | Results for this | | DIFFERENTIAL | e | 9:40 AM | | procedure are in the | | | | PDT | | results section. | + +--------+ + + + | LACTATE | Routin | 06/06/2012 | | Results for this | | DEHYDROGENASE | e | 9:40 AM | | procedure are in the | | | | PDT | | results section. | + +--------+ + + + | COMPREHENSIVE | Routin | 06/06/2012 | | Results for this | | METABOLIC PANEL | e | 9:40 AM | | procedure are in the | | | | PDT | | results section. | + +--------+ + + + documented in this encounter Results Comprehensive Metabolic Panel (06/28/2012 11:39 AM PDT) + + + + + + | Component | Value | Ref Range | Performed | Pathologist | | | | | At | Signature | + + + + + + | Glucose | 100 | 70 - 109 mg/dL | [facility] [...] + + + + | Alkaline | 109 | 40 - 110 IU/L | [facility] | | | Phosphatase | | | [facility] | | | | | | [facility] | | | | | [facility] - | | | | | | LABORATORY | | + + + + + + | AST | 21 | 10 - 42 IU/L | [facility] | | | | | | [facility] | | | | | | [facility] | | | | | | [facility] - | | | | | | LABORATORY | | + + + + + + | ALT | 30 | 6 - 45 IU/L | [facility] [...] + + + + | Albumin | 3.8 | 3.2 - 5.0 gm/dL | [facility] [...] | 0.68 | 0.60 - 1.30 | [facility] | [...] + + + + | BUN/Creatin | 17.6 | 12 - 20 | [facility] | [...] + + + + | K | 4.1 | 3.5 - 5.1 mEq/l | [facility] [...] + + + | Anion Gap | 12.1 | 6.0 - 17.0 | [facility] | | | | | | [facility] | | | | | | [facility] [...] [address] | [place] | [phone] | | [facility] | | [address] | | | - LABORATORY | | | | + + + + + | [facility] | [address] | [place] | | | [facility] | | [address] | | | - LABORATORY | | | | + + + + + Lactate Dehydrogenase (06/28/2012 11:39 AM PDT) + +-------+ + + + | Component | Value | Ref Range | Performed | Pathologist | | | | | At | Signature | + +-------+ + + + | LDH TOTAL | 151 | 91 - 180 IU/L | [facility] | | | | | | [facility] | | | | | | MEDICAL [...] + | [facility] | [address] | [place], [place] | [phone] | | [facility] | | [address] | | | - LABORATORY | | | | + + + + + | [facility] | [address] | [place], [place] | | | [facility] | | [address] | | | - LABORATORY | | | | + + + + + CBC with Differential (06/28/2012 11:39 AM PDT) + + + + + + | Component | Value | Ref Range | Performed | Pathologist | | | | | At | Signature | + + + + + + | WBC | 4.4 | 4.0 - 11.0 K/uL | [facility] | | | | | | [facility] | | | | | | [facility] | | | | | | [facility] - | | | | | | LABORATORY | | + + + + + + | RBC | 2.59 (L) | 3.70 - 5.20 | [facility] | | | | | M/uL | [facility] | | | | | | MEDICAL | | | | | | C[facility] - | | | | | | LABORATORY | | + + + + + + | Hemoglobin | 9.1 (L) | 11.5 - 16.0 | [facility] | | | | | gm/dL | [facility] | | | | | | [facility] | | | | | | [facility] - | | | | | | LABORATORY | | + + + + + + | Hematocrit | 25.2 (L) | 34.0 - 47.0 % | [facility] | | | | | | [facility] | | | | | | [facility] | | | | | | [facility] - | | | | | | LABORATORY | | + + + + + + | MCV | 97.2 | 83.0 - 101.0 fL | [facility] | | | | | | [facility] | | | [facility] | | [facility]ICAL | | | | | | C[facility] - | | | | | | LABORATORY | | + + + + + + | MCH | 35.0 | 28.0 - 35.0 pg | [facility] | | | | | | [facility] | | | | | | [facility] | | | | | | C[facility] - | | | | | | LABORATORY | | + + + + + + | MCHC | 36.1 (H) | 32.0 - 36.0 | [facility] [...] + + + + | Platelet | 134 (L) | 140 - 440 K/uL | [facility] | | | Count | | | [facility] | | | | | | [facility]ICAL | | | | | | C[facility] - | | | | | | LABORATORY | | + + + + + + | % | 45.3 | 45 - 75 % | [facility] | | | Neutrophils | | | [facility] | | | | | | [facility]ICAL | | | | | | CENTER - | | | | | | LABORATORY | | + + + + + + | % | 31.4 | 20 - 45 % | [facility] | | | Lymphocytes | | | [facility] | | | | | | MEDICAL | | | | | | CENTER - | | | | | | LABORATORY | | + + + + + + | % Monocytes | 20.4 (H) | 4 - 12 % | [facility] | | | | | | [facility] | | | | | | [facility] | | | | | | C[facility] - | | | | | | LABORATORY | | + + + + + + | % | 2.2 | 0 - 5 % | [facility] [...] + + | Absolute | 2.0 | 1.5 - 6.6 K/uL | [facility] | | | Neutrophils | | | [facility] | | | | | | MEDICAL | | | | | | CENTER - | | | | | | LABORATORY | | + + + + + + | Absolute | 1.4 | 0.6 - 3.2 K/uL | [facility] [...] + | [facility] | [address] | [place], [place] | [phone] | | [facility] | | [address] | | | - LABORATORY | | | | + + + + + | [facility] | [address] | [place], [place] | | | [facility] | | [address] | | | - LABORATORY | | | | + + + + + ABO Rh (06/20/2012 11:11 AM PDT) + +-------+ + + + | Component | Value | Ref Range | Performed | Pathologist | | | | | At | Signature | + +-------+ + + + | ABO | AP | | [facility] | | | | [...] [address] | [place] | [phone] | | [facility] | | [address] | | | - LABORATORY | | | | + + + + + | [facility] | [address] | [place], [place] | | | [facility] | | [address] | | | - LABORATORY | | | | + + + + + Antibody Screen (06/20/2012 11:11 AM PDT) + + + + + + | Component | Value | Ref Range | Performed | Pathologist | | | | | At | Signature | + + + + + + | Antibody | NEGATIVE | | [facility] | | | Screen | | | [facility] | | [...] + | [facility] | [address] | [place], [place] | [phone] | | [facility] | | [address] | | | - LABORATORY | | | | + + + + + | [facility] | [address] | [place], [place] | | | [facility] | | [address] | | | - LABORATORY | | | | + + + + + ABO Rh (06/20/2012 11:11 AM PDT) + + | Specimen | + + | | + + + + + + + | Performing | Address | City/State/Zipcode | Phone Number | | Organization | | | | + + + + + | [facility] | [address] | [place] | [phone] | | [facility] | | [address] | | | - LABORATORY | | | | + + + + + Comprehensive Metabolic Panel (06/20/2012 11:11 AM PDT) + + + + + + | Component | Value | Ref Range | Performed | Pathologist | | | | | At | Signature | + + + + + + | Glucose | 130 (H) | 70 - 109 mg/dL | [...] + + + + | Alkaline | 118 (H) | 40 - 110 IU/L | [...] + + + + | ALT | 25 | 6 - 45 IU/L | [facility] [...] + + + + | Total | 5.9 (L) | 6.0 - 7.8 gm/dL | [facility] | | | Protein | | | [facility] | | | | | | MEDICAL | | | | | | CENTER - | | | | | | LABORATORY | | + + + + + + | Albumin | 3.6 | 3.2 - 5.0 gm/dL | [facility] | | | | | | [facility] | | | [facility] | [facility] - | | | | | | LABORATORY | | + + + + + + | BUN | 15 | 7 - 18 mg/dL | [facility] | | | | | | [facility] | | [facility] | [facility] | | | | | | [facility] - | | | | | | LABORATORY | | + + + + + + | Creatinine | 0.74 | 0.60 - 1.30 | [facility] | | | | | mg/dL | [...] + + + + | BUN/Creatin | 20.3 (H) | 12 - 20 | [facility] | | | ine Ratio | | | [facility] | | | | | | [facility] | | | | | | CENTER - | | | | | | LABORATORY | | + + + + + + | Na | 134 (L) | 136 - 149 mEq/L | [facility] | | | | | [facility] | | [facility] | [facility] | | | | | | [facility] - | | | | | | LABORATORY | | + + + + + + | K | 4.2 | 3.5 - 5.1 mEq/l | [facility] [...] + + + + | CO2 | 27 | 24 - 31 mEq/L | [facility] | [facility] | | | | | | [facility] - | | | | | | LABORATORY | | + + + + + + | Anion Gap | 9.2 | 6.0 - 17.0 | [facility] | [...] + | [facility] | [address] | [place] | [phone] | | [facility] | | [address] | | | - LABORATORY | | | | + + + + + | [facility] | [address] | [place] | | | [facility] | | [address] | | | - LABORATORY | | | | + + + + + Lactate Dehydrogenase (06/20/2012 11:11 AM PDT) + +-------+ + + + [...] + | [facility] | [address] | [place] | [phone] | | [facility] | | [address] | | | - LABORATORY | | | | + + + + + | [facility] | [address] | [place] | | | [facility] | | [address] | | | - LABORATORY | | | | + + + + + CBC with Differential (06/20/2012 11:11 AM PDT) + + + + + + | Component | Value | Ref Range | Performed | Pathologist | | | | | At | Signature | + + + + + + | WBC | 4.5 | 4.0 - 11.0 K/uL | [facility] | | | | | | [facility] | | | | | [facility] | | | | | | [facility] - | | | | | | LABORATORY | | + + + + + + | RBC | 1.99 (L)Comment: | 3.70 - 5.20 | [facility] | | | | HYPOCHROMIA 3+ --- | M/uL | [facility] | | | | 06/20/12 1240 --- | | MEDICAL | | | | RBC previously | | CENTER - | | | | reported as: 1.99 | | LABORATORY | | | | L M/uL @ Edited | | | | | | by: Kaley Nava @ | | | | | | Reason: SMEAR REVIEW | | | | | |@ Reason: SMEAR REVIEW | | | | + + + + + + | Hemoglobin | 6.9 (LL) | 11.5 - 16.0 | [facility] | | | | | gm/dL | [facility] | | | | | | [facility] | | | | | | CENTER - | | | | | | LABORATORY | | + + + + + + | Hematocrit | 19.3 (LL)Comment: | 34.0 - 47.0 % | [facility] | | | | @CALLED DOC LEANN | | [facility] | | | | 1132 06-20-12 | | MEDICAL | | | | | | CENTER - | | | | | | LABORATORY | | + + + + + + | MCV | 96.6 | 83.0 - 101.0 fL | [facility] | | | | | [facility] | | | [facility] | [facility] | | | | | | C[facility] - | | | | | | LABORATORY | | + + + + + + | MCH | 34.7 | 28.0 - 35.0 pg | [facility] | | | | | | [facility] | | | | | | [facility] | | | | | | CENTER - | | | | | | LABORATORY | | + + + + + + | MCHC | 35.9 | 32.0 - 36.0 | [facility] | | | | | g/dL | [facility] | | | | | | [facility] | | | | | | CENTER - | | | | | | LABORATORY | | + + + + + + | RDW-CV | 15.0 | <15.0 % | [facility] | | | | | | [facility] | | | | | | [facility] | | | | | | CENTER - | | | | | | LABORATORY | | + + + + + + | Platelet | 9 (LL) | 140 - 440 K/uL | [facility] | | | Count | | | [facility] | | | | | | [facility] | | | | | | CENTER - | | | | | | LABORATORY | | + + + + + + | % | 56.6 | 45 - 75 % | [facility] | | | Neutrophils | | | [facility] | | | | | | MEDICAL | | | | | | CENTER - | | | | | | LABORATORY | | + + + + + + | % | 24.1 | 20 - 45 % | [facility] | | | Lymphocytes | | | [facility] | | | | | | MEDICAL | | | | | | CENTER - | | | | | | LABORATORY | | + + + + + + | % Monocytes | 15.6 (H) | 4 - 12 % | [facility] | | | | | | [facility] | | | | | | [facility]ICAL | | | | | | CENTER - | | | | | | LABORATORY | | + + + + + + | % | 3.5 | 0 - 5 % | [facility] [...] + + + + | Absolute | 2.6 | 1.5 - 6.6 K/uL | [facility] | | | Neutrophils | | | [facility] | | | | | | MEDICAL | | | | | | CENTER - | | | | | | LABORATORY | | + + + + + + | Absolute | 1.1 | 0.6 - 3.2 K/uL | [facility] [...] + + + | SUSPECTED | 1 (H)Comment: System | | [facility] | | | PROBLEM IS: | Error, Specimen | | [facility] | | | | Repeated, Review Results | | MEDICAL | | | | TEST REPEATED, | | CENTER - | | | | CRITICAL RESULT-PHONE | | LABORATORY | | | | RESULTS PERFORM SMEAR | | | | | | REVIEW FOR PLTS Left | | | | | | Shift Imm Grans Low | | | | | | Events: PLT | | | | + + + + + + + + | Specimen | + + | | + + + + + + + | Performing | Address | City/State/Zipcode | Phone Number | | Organization | | | | + + + + + | [facility] | [address] | [place] | [phone] | | [facility] | | [address] | | | - LABORATORY | | | | + + + + + | [facility] | [address] | [place] | | | [facility] | | [address] | | | - LABORATORY | | | | + + + + + Product: PRBC (06/20/2012 6:23 AM PDT) + + + + + [...] + + + | UNIT # | [id number] | | [facility] | | | | [...] [address] | [place] | [phone] | | [facility] | | [address] | | | - LABORATORY | | | | + + + + + | [facility] | [address] | [place] | | | [facility] | | [address] | | | - LABORATORY | | | | + + + + + Product: PRBC (06/20/2012 6:23 AM PDT) + + + + + + | Component | Value | Ref Range | Performed | Pathologist | | | | | At | Signature | + + + + + + | Product | PACKED CELLS,IRRADIATED | | [facility] | | | Code | | | [facility] | | | | | | [facility] | | | | | | CENTER - | | | | | | LABORATORY | | + + + + + + | UNIT # | [id number] | | [facility] | | | | [...] + | [facility] | [address] | [place], [place] | [phone] | | [facility] | | [address] | | | - LABORATORY | | | | + + + + + | [facility] | [address] | [place], [place] | | | [facility] | | [address] | | | - LABORATORY | | | | + + + + + Product: Platelet Pheresis (06/20/2012 6:23 AM PDT) + + + + + + | Component | Value | Ref Range | Performed | Pathologist | | | | | At | Signature | + + + + + + | Product | PHERESIS PLTS-IRRAD | | [facility] | | | Code | (PART 2) | | [facility] | | | | | | [facility] | | | | | | CENTER - | | | | | | LABORATORY | | + + + + + + | UNIT # | [id number] | | [facility] | | | | [...] + | [facility] | [address] | [place], [place] | [phone] | | [facility] | | [address] | | | - LABORATORY | | | | + + + + + | [facility] | [address] | [place] | | | [facility] | | [address] | | | - LABORATORY | | | | + + + + + Comprehensive Metabolic Panel (06/13/2012 10:09 AM PDT) + + + + + + | Component | Value | Ref Range | Performed | Pathologist | | | | | At | Signature | + + + + + + | Glucose | 112 (H) | 70 - 109 mg/dL | [...] + + + + | Alkaline | 108 | 40 - 110 IU/L | [facility] | | | Phosphatase | | | [facility] | | | | | | MEDICAL | | | | | | CENTER - | | | | | | LABORATORY | | + + + + + + | AST | 16 | 10 - 42 IU/L | [facility] | | | | | | [facility] | | | | | | MEDICAL | | | | | | CENTER - | | | | | | LABORATORY | | + + + + + + | ALT | 32 | 6 - 45 IU/L | [facility] [...] Albumin | 3.9 | 3.2 - 5.0 gm/dL | [facility] | | | | | | [facility] | | | | | | [facility] | | | | | | CENTER - | | | | | | LABORATORY | | + + + + + + | BUN | 26 (H) | 7 - 18 mg/dL | [...] + + + + | BUN/Creatin | 37.1 (H) | 12 - 20 | [facility] [...] + + + + | Cl | 103 | 98 - 109 mEq/l | [facility] | | | | | | [facility] | | | | | | MEDICAL | | | | | | CENTER - | | | | | | LABORATORY | | + + + + + + | CO2 | 27 | 24 - 31 mEq/L | [facility] | | | | | | [facility] | | | | | | MEDICAL | | | | | | CENTER - | | | | | | LABORATORY | | + + + + + + | Anion Gap | 12.5 | 6.0 - 17.0 | [facility] | [...] + | [facility] | [address] | [place], [place] | [phone] | | [facility] | | [address] | | | - LABORATORY | | | | + + + + + | [facility] | [address] | [place], [place] | | | [facility] | | [address] | | | - LABORATORY | | | | + + + + + Lactate Dehydrogenase (06/13/2012 10:09 AM PDT) + +-------+ + + + | Component | Value | Ref Range | Performed | Pathologist | | | | | At | Signature | + +-------+ + + + | LDH TOTAL | 173 | 91 - 180 IU/L | [facility] [...] + | [facility] | [address] | [place] | [phone] | | [facility] | | [address] | | | - LABORATORY | | | | + + + + + | [facility] | [address] | [place] | | | [facility] | | [address] | | | - LABORATORY | | | | + + + + + CBC with Differential (06/13/2012 10:09 AM PDT) + + + + + + | Component | Value | Ref Range | Performed | Pathologist | | | | | At | Signature | + + + + + + | WBC | 21.1 (H) | 4.0 - 11.0 K/uL | [facility] | | | | | | [facility] | | | | | | [facility]ICAL | | | | | | CENTER - | | | | | | LABORATORY | | + + + + + + | RBC | 2.63 (L) | 3.70 - 5.20 | [facility] | | | | | M/uL | [facility] | | | | | | MEDICAL | | | | | | CENTER - | | | | | | LABORATORY | | + + + + + + | Hemoglobin | 9.1 (L) | 11.5 - 16.0 | [facility] | | | | | gm/dL | [facility] | | | | | | MEDICAL | | | | | | CENTER - | | | | | | LABORATORY | | + + + + + + | Hematocrit | 25.6 (L) | 34.0 - 47.0 % | [facility] | | | | | | [facility] | | | | | | MEDICAL | | | | | | CENTER - | | | | | | LABORATORY | | + + + + + + | MCV | 97.2 | 83.0 - 101.0 fL | [facility] | | | | | | [facility] | | | | | | MEDICAL | | | | | | CENTER - | | | | | | LABORATORY | | + + + + + + | MCH | 34.7 | 28.0 - 35.0 pg | [facility] | | | | | | [facility] | | | | | | MEDICAL | | | | | | CENTER - | | | | | | LABORATORY | | + + + + + + | MCHC | 35.7 | 32.0 - 36.0 | [facility] | | | | | g/dL | [facility] | | | | | | MEDICAL | | | | | | CENTER - | | | | | | LABORATORY | | + + + + + + | RDW-CV | 16.1 (H) | <15.0 % | [facility] | | | | | | [facility] | | | | | | MEDICAL | | | | | | CENTER - | | | | | | LABORATORY | | + + + + + + | Platelet | 146 | 140 - 440 K/uL | [facility] | | | Count | | | [facility] | | | | | | MEDICAL | | | | | | CENTER - | | | | | | LABORATORY | | + + + + + + | % | 92.5 (H) | 45 - 75 % | [facility] | | | Neutrophils | | | [facility] | | | | | | MEDICAL | | | | | | CENTER - | | | | | | LABORATORY | | + + + + + + | % | 4.6 (L) | 20 - 45 % | [facility] | | | Lymphocytes | | | [facility] | | | | | | MEDICAL | | | | | | CENTER - | | | | | | LABORATORY | | + + + + + + | % Monocytes | 0.7 (L) | 4 - 12 % | [facility] | | | | | | [facility] | | | | | | MEDICAL | | | | | | CENTER - | | | | | | LABORATORY | | + + + + + + | % | 2.2 | 0 - 5 % | [facility] [...] + + + + | Absolute | 19.5 (H) | 1.5 - 6.6 K/uL | [facility] | | | Neutrophils | | | [facility] | | | | | | MEDICAL | | | | | | CENTER - | | | | | | LABORATORY | | + + + + + + | Absolute | 1.0 | 0.6 - 3.2 K/uL | [facility] | | | Lymphocytes | | | [facility] | | | | | | MEDICAL | | | | | | CENTER - | | | | | | LABORATORY | | + + + + + + | Absolute | 0.2 | 0.0 - 1.0 K/uL | [facility] [...] + | [facility] | [address] | [place], [place] | [phone] | | [facility] | | [address] | | | - LABORATORY | | | | + + + + + | [facility] | [address] | [place], [place] | | | [facility] | | [address] | | | - LABORATORY | | | | + + + + + Comprehensive Metabolic Panel (06/06/2012 9:40 AM PDT) + + + + + + | Component | Value | Ref Range | Performed | Pathologist | | | | | At | Signature | + + + + + + | Glucose | 117 (H) | 70 - 109 mg/dL | [...] + + + + | Alkaline | 122 (H) | 40 - 110 IU/L | [...] + + + + | ALT | 29 | 6 - 45 IU/L | [facility] [...] Albumin | 3.9 | 3.2 - 5.0 gm/dL | [facility] | | | | | | [facility] | | | | | | MEDICAL | | | | | | CENTER - | | | | | | LABORATORY | | + + + + + + | BUN | 18 | 7 - 18 mg/dL | [facility] | | | | | | [facility] | | | | | | MEDICAL | | | | | | CENTER - | | | | | | LABORATORY | | + + + + + + | Creatinine | 0.69 | 0.60 - 1.30 | [facility] | | | | | mg/dL | [facility] | | | | | | [...] + + + + | BUN/Creatin | 26.1 (H) | 12 - 20 | [facility] | | | ine Ratio | | | [facility] | | | [...] + + + + | CO2 | 23 (L) | 24 - 31 mEq/L | [facility] | | | | | | [facility] | | | | | | MEDICAL | | | | | | CENTER - | | | | | | LABORATORY | | + + + + + + | Anion Gap | 9.4 | 6.0 - 17.0 | [facility] | [...] [address] | [place] | [phone] | | [facility] | | [address] | | | - LABORATORY | | | | + + + + + | [facility] | [address] | [place] | | | [facility] | | [address] | | | - LABORATORY | | | | + + + + + Lactate Dehydrogenase (06/06/2012 9:40 AM PDT) + +-------+ + + + | Component | Value | Ref Range | Performed | Pathologist | | | | | At | Signature | + +-------+ + + + | LDH TOTAL | 146 | 91 - 180 IU/L | [facility] [...] + | [facility] | [address] | [place], [place] | [phone] | | [facility] | | [address] | | | - LABORATORY | | | | + + + + + | [facility] | [address] | [place], [place] | | | [facility] | | [address] | | | - LABORATORY | | | | + + + + + CBC with Differential (06/06/2012 9:40 AM PDT) + + + + + + | Component | Value | Ref Range | Performed | Pathologist | | | | | At | Signature | + + + + + + | WBC | 8.1 | 4.0 - 11.0 K/uL | [facility] | | | | | | [facility] | | | | | | [facility] | | | | | | [facility] - | | | | | | LABORATORY | | + + + + + + | RBC | 3.07 (L) | 3.70 - 5.20 | [facility] | | | | | M/uL | [facility] | | | | | | MEDICAL | | | | | | CENTER - | | | | | | LABORATORY | | + + + + + + | Hemoglobin | 10.4 (L) | 11.5 - 16.0 | [facility] | | | | | gm/dL | [facility] | | | | | | MEDICAL | | | | | | CENTER - | | | | | | LABORATORY | | + + + + + + | Hematocrit | 29.7 (L) | 34.0 - 47.0 % | [facility] | | | | | | [facility] | | | | | | MEDICAL | | | | | | CENTER - | | | | | | LABORATORY | | + + + + + + | MCV | 96.6 | 83.0 - 101.0 fL | [facility] | | | | | | [facility] | | | | | | MEDICAL | | | | | | CENTER - | | | | | | LABORATORY | | + + + + + + | MCH | 34.0 | 28.0 - 35.0 pg | [facility] | | | | | | [facility] | | | | | | MEDICAL | | | | | | CENTER - | | | | | | LABORATORY | | + + + + + + | MCHC | 35.2 [...] + + + + | Platelet | 217 | 140 - 440 K/uL | [facility] | | | Count | | | [facility] | | | | | | MEDICAL | | | | | | CENTER - | | | | | | LABORATORY | | + + + + + + | % | 43.4 (L) | 45 - 75 % | [facility] | | | Neutrophils | | | [facility] | | | | | | MEDICAL | | | | | | CENTER - | | | | | | LABORATORY | | + + + + + + | % | 31.0 | 20 - 45 % | [facility] | | | Lymphocytes | | | [facility] | | | | | | MEDICAL | | | | | | CENTER - | | | | | | LABORATORY | | + + + + + + | % Monocytes | 11.7 | 4 - 12 % | [facility] | | | | | | [facility] | | | | | | MEDICAL | | | | | | CENTER - | | | | | | LABORATORY | | + + + + + + | % | 13.2 (H) | 0 - 5 % | [...] + + + + | Absolute | 3.5 | 1.5 - 6.6 K/uL | [facility] | | | Neutrophils | | | [facility] | | | | | | MEDICAL | | | | | | CENTER - | | | | | | LABORATORY | | + + + + + + | Absolute | 2.5 | 0.6 - 3.2 K/uL | [facility] [...] + + + + | Absolute | 1.1 (H) | 0.0 - 0.4 K/uL | [...] + | [facility] | [address] | [place], [place] | [phone] | | [facility] | | [address] | | | - LABORATORY | | | | + + + + + | [facility] | [address] | [place], [place] | | | [facility] | | [address] | | | - LABORATORY | | | | + + + + + documented in this encounter Visit Diagnoses Not on filedocumented in this encounter"
--- OUTSIDE RECORDS SUMMARY | ~2019-09-11 | XMS | Encounter Summary ---
Demographics + + + | Address | [address] | | | [place] [address] | + + + | Home Phone | | + + + | Preferred Language | Unknown | + + + | Marital Status | | + + + | Shinto Affiliation | Unknown | + + + | Race | Unknown | + + + | Ethnic Group | Unknown | + + + Author + + + | Author | [facility] | | | and [facility] | + + + | Organization | [facility] | | | and [facility] [...] [place], [place] | | | | | [address] | | + + + + + | Greta [address]cheau | ECON | [place], [place] | | | | | [address] | | + + + + + Care Team Providers + +------+ + | Care Rn Shift Mgr Name | Role | Phone | + +------+ + | No, Unknownpcp | PCP | | + +------+ + Encounter Details +--------+ + + + + | Date | Type | Department | Care Team | Description | +--------+ + + + + | 10/20/ | Hospital | [facility] | [place], | | | 2011 - | Encounter | [facility] | Antonio Inafnte MD [address] | | | | [place] [address] | [address] [place] | | | 10/31/ | | [place], [place] | [place] [address] | | | 2011 | | [address] | [phone] | | | | | [phone] | | | +--------+ + + + [...] | 03/25/20 | | | (VITAMIN D3) [address] | mouth Once a week. | | | 12 | 4 | | UNITS CAPS | | | | | | + + + +---------+ + + | Coenzyme C10-Plvh | one by mouth daily | | [...] | TABS; Compazine | | 0 | 05/25/20 | | | MALEATE PO | 5-10 [...] + | CBC WITH | Routin | 10/20/2012 | | Results for this | | DIFFERENTIAL | e | 1:14 PM | | procedure are in the | | | | PST | | results section. | + +--------+ + + + | LACTATE | Routin | 10/20/2012 | | Results for this | | DEHYDROGENASE | e | 1:14 PM | | procedure are in the | | | | PST | | results section. | + +--------+ + + + | COMPREHENSIVE | Routin | 10/20/2012 | | Results for this | | METABOLIC PANEL | e | 1:14 PM | | procedure are in the | | | | PST | | results section. | + +--------+ + + + documented in this encounter Results CBC with Differential (10/20/2012 1:14 PM PST) + + + + + + | Component | Value | Ref Range | Performed | Pathologist | | | | | At | Signature | + + + + + + | MANUAL | NO | | [facility] | | | DIFFERENTIA | | | [facility] | | | L ? | | | [facility] | | | | | | CENTER - | | | | | | LABORATORY | | + + + + + + | WBC | 8.2 | 4.0 - 11.0 K/uL | [facility] | | | | | | [facility] | | | | | | [facility] | | | | | | C[facility] - | | | | | | LABORATORY | | + + + + + + | RBC | 3.69 (L) | 3.70 - 5.20 | [facility] | | | | | M/uL | [facility] | | | | | | [facility] | | | | | | CENTER - | | | | | | LABORATORY | | + + + + + + | Hemoglobin | 12.7 | 11.5 - 16.0 | [facility] | | | | | gm/dL | [facility] | | | | | | MEDICAL | | | | | | CENTER - | | | | | | LABORATORY | | + + + + + + | Hematocrit | 36.4 | 34.0 - 47.0 % | [facility] | | | | | | [facility] | | | | | | MEDICAL | | | | | | CENTER - | | | | | | LABORATORY | | + + + + + + | MCV | 98.7 | 83.0 - 101.0 fL | [facility] | | | | | | [facility] | | | | | | MEDICAL | | | | | | CENTER - | | | | | | LABORATORY | | + + + + + + | MCH | 34.3 | 28.0 - 35.0 pg | [facility] | | | | | | [facility] | | | | | | MEDICAL | | | | | | CENTER - | | | | | | LABORATORY | | + + + + + + | MCHC | 34.8 | 32.0 - 36.0 | [facility] | | | | | g/dL | [facility] | | | | | | MEDICAL | | | | | | CENTER - | | | | | | LABORATORY | | + + + + + + | RDW-CV | 12.8 | <15.0 % | [facility] | | | | | | [facility] | | | | | | MEDICAL | | | | | | CENTER - | | | | | | LABORATORY | | + + + + + + | Platelet | 250 | 140 - 440 K/uL | [facility] | | | Count | | | [facility] | | | | | | MEDICAL | | | | | | CENTER - | | | | | | LABORATORY | | + + + + + + | % | 59.4 | 45 - 75 % | [facility] [...] + + + | % Monocytes | 9.2 | 4 - 12 % | [facility] | | | | | | [facility] | | | | | | MEDICAL | | | | | | CENTER - | | | | | | LABORATORY | | + + + + + + | % | 5.1 (H) | 0 - 5 % | [...] + + + + | Absolute | 4.9 | 1.5 - 6.6 K/uL | [facility] | | | Neutrophils | | | [facility] | | | | | | MEDICAL | | | | | | CENTER - | | | | | | LABORATORY | | + + + + + + | Absolute | 2.1 | 0.6 - 3.2 K/uL | [facility] [...] | Absolute | 0.4 | 0.0 - 0.4 K/uL | [facility] [...] [address] | [place] | [phone] | | [facility] | | [address] | | | - LABORATORY | | | | + + + + + | [facility] | [address] | [place] | | | [facility] | | [address] | | | - LABORATORY | | | | + + + + + Comprehensive Metabolic Panel (10/20/2012 1:14 PM PST) + + + + + + | Component | Value | Ref Range | Performed | Pathologist | | | | | At | Signature | + + + + + + | Glucose | 121 (H) | 70 - 109 mg/dL | [facility] | | | | | | [facility] | | | | | | MEDICAL | | | | | | CENTER - | | | | | | LABORATORY | | + + + + + + | Calcium | 9.4 | 8.3 - 10.5 | [facility] | | | | | mg/dL | [facility] | | | | | | MEDICAL | | | | | | CENTER - | | | | | | LABORATORY | | + + + + + + | Alkaline | 120 (H) | 40 - 110 IU/L | [facility] | | | Phosphatase | | | [facility] | | | | | | MEDICAL | | | | | | CENTER - | | | | | | LABORATORY | | + + + + + + | AST | 23 | 10 - 42 IU/L | [facility] | | | | | | [facility] | | | | | | MEDICAL | | | | | | [facility] - | | | | | | LABORATORY | | + + + + + + | ALT | 40 | 6 - 45 IU/L | [facility] | [facility] | | | | | | [facility] - | | | | | | LABORATORY | | + + + + + + | Bilirubin | 0.6 | 0.2 - 1.0 mg/dL | [facility] | | | Total | | | [facility] | | | | | | [facility] | | | | | | [facility] - | | | | | | LABORATORY | | + + + + + + | Total | 6.6 | 6.0 - 7.8 gm/dL | [facility] | | | Protein | | | [facility] | | | | | [facility] - | | | | | | LABORATORY | | + + + + + + | Albumin | 4.1 | 3.2 - 5.0 gm/dL | [facility] | | | | | | [facility] | | | [facility] | [facility] | | | | | | [facility] - | | | | | | LABORATORY | | + + + + + + | BUN | 17 | 7 - 18 mg/dL | [facility] | | | | | | [facility] | | | | | | [facility] | | | | | | CENTER - | | | | | | LABORATORY | | + + + + + + | Creatinine | 0.65 | 0.60 - 1.30 | [facility] | | | | | mg/dL | [facility] | | | [facility] | [facility] - | | | | | | LABORATORY | | + + + + + + | Estimated | >60Comment: For | >60 mL/min/A | [facility] | | | GFR | -Americans, | | [facility] | | | | please multiply [...] + + + + | BUN/Creatin | 26.2 (H) | 12 - 20 | [facility] [...] + + + | Anion Gap | 11.0 | 6.0 - 17.0 | [facility] | [...] + | [facility] | [address] | [place] | [phone] | | [facility] | | [address] | | | - LABORATORY | | | | + + + + + | [facility] | [address] | [place], [place] | | | [facility] | | [address] | | | - LABORATORY | | | | + + + + + Lactate Dehydrogenase (10/20/2012 1:14 PM PST) + +-------+ + + + | Component | Value | Ref Range | Performed | Pathologist | | | | | At | Signature | + +-------+ + + + | LDH TOTAL | 131 | 91 - 180 IU/L | [facility] [...] + | [facility] | [address] | [place] | [phone] | | [facility] | | [address] | | | - LABORATORY | | | | + + + + + | [facility] | [address] | [place] | | | [facility] | | [address] | | | - LABORATORY | | | | + + + + + documented in this encounter Visit Diagnoses Not on filedocumented in this encounter"
--- OUTSIDE RECORDS SUMMARY | ~2019-09-11 | XMS | Encounter Summary ---
Demographics + + + | Address | [address] | | | [place] [address] | + + + | Home Phone | | + + + | Preferred Language | Unknown | + + + | Marital Status | | + + + | Hindu Affiliation | Unknown | + + + | Race | Unknown | + + + | Ethnic Group | Unknown | + + + Author + + + | Author | [facility] | | | and Hermannana | + + + | Organization | [facility] | | | and Hermannana | [...] [place], [place] | | | | | [address] | | + + + + + | Greta Broncheau | ECON | [place], [place] | | | | | [address] | | + + + + + Care Team Providers + +------+ + | Care Rug Inspector Name | Role | Phone | + +------+ + PCP | Unavailable | + +------+ + Encounter Details +--------+ + + + + | Date | Type | Department | Care Team | Description | +--------+ + + + + | 01/13/ | Hospital | [facility] | [place], | | | 2011 - | Encounter | [facility] MED [facility] | Antonio Infante MD [address] | | | | [address] [place] | [address] [place] | | | 01/18/ | | [place] [address] | [place] [address] | | | 2011 | | [phone] | [phone] | | | | | | | [...] HOSPITAL COURSE: Frida Christian is a 51-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 ABDOMEN: Soft, nontender, nondistended. No hepatomegaly. No [...] 6 hours as needed for pain. 9. Cummings 5/325 mg tablet, 1 to 2 tablets [...] in the [facility] on January 24, 2 012, at 09 00 hours. DICTATED BY: Antonio Renee MD Oncology JOB #: [id number] EXT JOB #:[id number] <Electronicall y Signed by Antonio Renee MD> 01/21/12 1351 documented in this encounter Plan of Treatment [...] 98 | 70 - 109 mg/dL | [facility] [...] 8 | 7 - 18 mg/dL | [facility] | | | | | | [facility] | | | | | | [facility] | | | | | | CENTER - | | | | | | LABORATORY | | + + + + + + | Creatinine | 0.55 (L) | 0.60 - 1.30 | [facility] [...] + | [facility] | [address] | [place], [place] | [phone] | | [facility] | | [address] | | | - LABORATORY | | | | + + + + + | [facility] | [address] | [place], [place] | | | [facility] | | [address] | | | - LABORATORY | | | | + + + + + CBC with Differential (01/19/2012 7:38 AM PDT) + + + + + + | Component | Value | Ref Range | Performed | Pathologist | | | | | At | Signature | + + + + + + | WBC | 2.8 (L) | 4.0 - 11.0 K/uL | [facility] | | | | | [facility] | | | | | | MEDICAL | | | | | | CENTER - | | | | | | LABORATORY | | + + + + + + | RBC | 2.72 (L) | 3.70 - 5.20 | [facility] | | | | Comment: | M/uL | [facility] [...] + | [facility] | [address] | [place] | [phone] | | [facility] | | [address] | | | - LABORATORY | | | | + + + + + | [facility] | [address] | [place] | | | [facility] | | [address] | | | - LABORATORY | | [...] | | Protein | | | [facility] | | | | | | MEDICAL [...] 0.50 (L) | 0.60 - 1.30 | [facility] [...] 22.0 (H) | 12 - 20 | [facility] [...] + | [facility] | [address] | [place], [place] | [phone] | | [facility] | | [address] | | | - LABORATORY | | | | + + + + + | [facility] | [address] | [place], [place] | | | [facility] | | [address] | | | - LABORATORY | | | | + + + + + CBC with Differential (01/18/2012 7:02 AM PDT) + + + + + + | Component | Value | Ref Range | Performed | Pathologist | | | | | At | Signature | + + + + + + | WBC | 3.6 (L) | 4.0 - 11.0 K/uL | [facility] | | | | | [facility] | | | | | | [facility]ICAL | | | | | | CENTER - | | | | | | LABORATORY | | + + + + + + | RBC | 2.89 (L) | 3.70 - 5.20 | [facility] | | | | | M/uL | [facility] | [...] + | [facility] | [address] | [place] | [phone] | | [facility] | | [address] | | | - LABORATORY | | | | + + + + + | [facility] | [address] | [place] | | | [facility] | | [address] | | | - LABORATORY | | [...] + | [facility] | [address] | [place] | [phone] | | [facility] | | [address] | | | - LABORATORY | | | | + + + + + | [facility] | [address] | [place] | | | [facility] | | [address] | | | - LABORATORY | | [...] | | | Screen | | | [facility] | | | [...] + | [facility] | [address] | [place], [place] | [phone] | | [facility] | | [address] | | | - LABORATORY | | | | + + + + + | [facility] | [address] | [place] | | | [facility] | | [address] | | | - LABORATORY | | [...] [address] | [place] | [phone] | | [facility] | | [address] | | | - LABORATORY | | [...] + + + | UNIT # | [id number] | | [facility] | | | | [...] | [address] | [place] | [phone] | | [facility] | | [address] | | | - LABORATORY | | | | + + + + + | [facility] | | | | | [facility] | | | | | - LABORATORY [...] + + + | UNIT # | [id number] | | [facility] | | | | [...] [address] | [place] | [phone] | | [facility] | | [address] | | | - LABORATORY | | | | + + + + + | [facility] | | | | | [facility] | | | | | - LABORATORY [...] 0.46 (L) | 0.60 - 1.30 | [facility] [...] | 7.6 | 6.0 - 17.0 | [facility] | | | | | [...] [address] | [place] | [phone] | | [facility] | | [address] | | | - LABORATORY | | | | + + + + + | [facility] | [address] | [place] | | | [facility] | | [address] | | | - LABORATORY | | | | + + + + + CBC with Differential (01/17/2012 6:43 AM PDT) + + + + + + | Component | Value | Ref Range | Performed | Pathologist | | | | | At | Signature | + + + + + + | WBC | 4.9 (A) | 4.0 - 11.0 K/uL | [facility] | | | | | | [facility] | | | | | | MEDICAL | | | | | | CENTER - | | | | | | LABORATORY | | + + + + + + | RBC | 2.34 (L) | 3.70 - 5.20 [...] 87.3 | 83.0 - 101.0 fL | [facility] [...] + | [facility] | [address] | [place] | [phone] | | [facility] | | [address] | | | - LABORATORY | | | | + + + + + | [facility] | [address] | [place] | | | [facility] | | [address] | | | - LABORATORY | | [...] | 0.60 | 0.60 - 1.30 | [facility] | [...] | 11.6 | 6.0 - 17.0 | [facility] | | | | | [...] [address] | [place] | [phone] | | [facility] | | [address] | | | - LABORATORY | | | | + + + + + | [facility] | [address] | [place] | | | [facility] | | [address] | | | - LABORATORY | | | | + + + + + CBC no Differential (01/16/2012 12:12 PM PDT) + + + + + + | Component | Value | Ref Range | Performed | Pathologist | | | | | At | Signature | + + + + + + | WBC | 4.0 (A) | 4.0 - 11.0 K/uL | [facility] | | | | | | [facility] | | | | | | [facility]ICAL | | | | | | CENTER - | | | | | | LABORATORY | | + + + + + + | RBC | 2.71 (L) | 3.70 - 5.20 | [facility] | | | | | M/uL | [facility] | [...] + | [facility] | [address] | [place] | [phone] | | [facility] | | [address] | | | - LABORATORY | | | | + + + + + | [facility] | [address] | [place], [place] | | | [facility] | | [address] | | | - LABORATORY | | | | + + + + + FL Lumbar Puncture (01/14/2012 10:38 AM PDT) + + | Specimen | + + | | + + + + + | Narrative | Performed At | + + + | [facility] Imaging Department | [facility] | | [address] [facility] | [facility] | | FLUOROSCOPIC GUIDED LUMBAR | DIAG [...] | | | Transcribed Date/Time: 01/14/2012 15:40 Hr Shared Services Consultant: | | | <Electronically Signed by Jorge Luis Farias MD> 01/14/121957 | | + + + + + | Procedure Note | + + | Philip Groves Conversion - 12/08/2013 4:56 PM [facility] | | Diagnostic Imaging Department [address] [place] [address] | | FLUOROSCOPIC GUIDED LUMBAR PUNCTURE FOR [...] | 15:40Transcriptionist: <Electronically Signed by Jorge Luis Farais MD> 01/14/12 | | 1957 | |he administered intrathecal chemotherapy. The needles were then withdrawn and procedure wa s terminat | |ed. No difficulties or problems were encountered. | | | |IMPRESSION: UNEVENTFUL LUMBAR PUNCTURE FOR INTRATHECAL CHEMOTHERAPY ADMINISTRATION. | | | |Dictated Date/Time: 01/14/2012 14:49 | |Transcribed Date/Time: 01/14/2012 15:40 | |Hr Shared Services Consultant: | |<Electronically Signed by Jorge Luis Farias [...]
--- OUTSIDE RECORDS SUMMARY | ~2019-09-11 | XMS | Encounter Summary ---
Demographics + + + | Address | [address] | | | [place] [address] | + + + | Home Phone | | + + + | Preferred Language | Unknown | + + + | Marital Status | | + + + | Zoroastrian Affiliation | Unknown | + + + | Race | Unknown | + + + | Ethnic Group | Unknown | + + + Author + + + | Author | [facility] | | | and Hermannana | + + + | Organization | [facility] | | | and Hermannana [...] [place], [place] | | | | | [address] | | + + + + + | Greta Broncheau | ECON | [place], [place] | | | | | [address] | | + + + + + Care Team Providers + +------+ + | Care Signal Worker Name | Role | Phone | + +------+ + | Becky Jennings | PCP | | + +------+ + Reason for Visit + + + | Reason | Comments | + + + | Follow-up | | + + + Evaluate & Treat (Routine) +--------+--------+ + + + + | Status | Reason | Specialty | Diagnoses / | Referred By | Referred To | | | | | Procedures | Contact | Contact | +--------+--------+ + + + + | Closed | | Oncology | Diagnoses | | | | | | | Burkitt's | Thelma, | Thelma, | | | | | tumor or | Antonio Infante, | Antonio Infante MD | | | | | lymphoma of | [address] | | | | | intra-abdomi | [address] | [address] [place] | | | | | nal lymph | [place], | [place], [place] | | | | | nodes (HCC) | [place] [address] | [address] Phone: | | | | | Procedures | Phone: | [phone] | | | | | [place] OFFICE | [phone] | Fax: | | | | | OUTPATIENT | Fax: | [phone] | | | | | VISIT 25 | [phone] | | | | | | MINUTES | | | +--------+--------+ + + + + Encounter Details +--------+ + + + + | Date | Type | Department | Care Team | Description | +--------+ + + + + | 03/15/ | Hospital | [facility], | [facility] | | 2013 | Encounter | [facility] | Antonio Infante MD [address] | (Primary Dx); | | | | [facility]OGY CLINIC [address] [place] | Diarrhea; GERD | | | | [facility] | [place] [address] | (gastroesophageal | | | | [place] [address] | [phone] | reflux disease); | | | | [phone] | | Hypertension; | | | | | | Neoplasm related | | | | | | pain (acute) | | | | | | (chronic); Rash; | | | | | | Prediabetes | +--------+ + + + + Social [...] + + + | Blood Pressure | 118/81 | 03/15/2014 9:20 AM | | | | | PDT | | + + + + + | Pulse | 82 | 03/15/2014 9:20 AM | | | | | PDT | | + + + + + | Temperature | 36.3 C (97.3 F) | 03/15/2014 9:20 AM | | | | | PDT | | + + + + + | Respiratory Rate | 18 | 03/15/2014 9:20 AM | | | | | PDT | | + + + + + | Oxygen Saturation | 95% | 03/15/2014 9:20 AM | | | | | PDT | | + + + + + | Inhaled Oxygen | - | - | | | Concentration | | | | + + + + + | Weight | 96.8 kg (213 lb 6.5 | 03/15/2014 9:05 AM | | | | oz) | PDT | | + + + + + | Height | - | - | | + + + + + | Body Mass Index | 36.63 | 11/22/2013 10:26 AM | | | | | PST | | + + + + + documented in this encounter Discharge Instructions Patient Instructions Antonio Renee MD - 03/15/2014 10:14 AM PDTPick up meds at [facility] See Dr. Aranda for colonoscopy.Electronically signed by Antonio Renee MD at 03/01 10:14 AM PDT documented in this encounter Medications at Time [...] | 03/25/20 | | | (VITAMIN D3) 22743 | mouth Once a week. | | [...] +---------+ + + | | Take 1 tablet by | 40 | 5 | 03/15/20 | | | diphenoxylate-atropi | mouth 4 times daily | tablet | | 14 | 5 | | ne (LOMOTIL) | as needed for | | | | | | 2.5-0.025 mg per | Diarrhea. | | | | | | tabletIndications: | | | | | | | Diarrhea | | | | | | + + + +---------+ + + | | Take 2 tablets by | 100 | 5 | 03/15/20 | | | HYDROcodone-acetamin | mouth every 6 hours | tablet | | 14 | 4 | | ophen (NORCO) 5-325 | as needed. | | | | | | mg per | | | | | | | tabletIndications: | | | | | | | Neoplasm related | | | | | | | pain (acute) | | | | | | | (chronic) | | | | | | + + + +---------+ + + | hydrocortisone 1% | Use topically twice | 30 g | 1 | 03/15/20 | | | creamIndications: | daily. | | | 14 | 4 | | Neoplasm related | | | | | | | pain (acute) | | | | | | | (chronic) | | | | | | + + + +---------+ + + | lisinopril | Take 1 tablet by | 30 | 5 | 03/15/20 | | | (PRINIVIL, ZESTRIL) | mouth Daily. | tablet | | 14 | 6 | | 10 mg | | | | | | | tabletIndications: | | | | | | | Hypertension | | | | | | + [...] +---------+ + + | omeprazole | Take 1 capsule by | 30 | 5 | 03/15/20 | | | (PRILOSEC) 20 mg | mouth Daily. | capsule | | 14 | 6 | | capsuleIndications: | | | | | | | GERD | | | | | | | (gastroesophageal | | | | | | | reflux disease) | | | | | | + + + +---------+ + + documented as of this encounter Progress Antonio Collier MD - 03/15/2014 6:02 PM PDTFormatting of this note might be dif ferent from the original. IDENTIFYING STATEMENT: Frida Christian is a 53-year-old woman from [place], [place] with Bur miguel's lymphoma. ACTIVE DIAGNOSES: 1. Presentation in August of 2011 with intractable searing abdominal pain. Symptoms progre ssed and on October 05, 2011, she underwent advanced imaging that demonstrated diffuse malig nant lymphadenopathy throughout the retroperitoneum. 2. 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 Positive for BCL6, CD10, CD19, CD20, CD22, an d kappa light chains. 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 KI67 fractio n was greater than 90%. 3. Status post eight cycles of Rituxan/Hyper-CVAD chemotherapy with eight intrathecal injec tions of chemotherapy between November 15, 2011, and June 06, 2012. 4. Repeat extent of disease evaluation with CT scan of chest, abdomen, and pelvis on 2011 and bone marrow biopsy and aspiration also on July 14, 2012 demonstrated c omplete remission. Chief Complaint: Frida returned to clinic on March 15, 2014, two and a half years after antonina ng diagnosed with Burkitt's lymphoma. REVIEW OF SYSTEMS Constitutional: Denies fatigue. Denies high fevers, shaking chills, anorexia, nausea, vomit ing, weight loss, or night sweats. Ear, Nose, Mouth, Throat: Denies odynophagia, dysphagia, or tinnitus. Cardiovascular: Denies chest pain, palpitations or orthopnea. Shortness of breath if she st arts coughing. Respiratory: Pt just completed a round of antibiotics for pneumonia but continues to have a productive cough with light green sputum. Gastrointestinal: Denies abdominal pain, constipation, melena. Pt continues to have diarrhe a and states she has diarrhea especially after eating certain foods. Pt states she continues to have some blood on the tissue after having prolonged periods of diarrhea. Pt states she has been unable to get a colonoscopy and has cancelled her appointment twice due to pneumoni a. Genitourinary: Denies hematuria or dysuria. Musculoskeletal: Denies joint pain or tenderness. Neurologic: Denies headache, visual changes. 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 Endocrine: Denies peripheral edema or heat/cold intolerance. Hematologic: Denies spontaneous bruising or bleeding. Integumentary: Rash on lower legs which she states is itching and started after she shaved her legs 2-3 weeks ago. Pain: Denies pain. PAST MEDICAL HISTORY: Treatment-induced congestive heart failure. Cardiac echocardiogram wa s performed in the asymptomatic state on March 18, 2012 for monitoring for any signs or sympto ms of cardiac toxicity related to her anthracycline exposure and disclosed a segmental wall motion abnormality in the anteroseptal and distal anteroseptal left ventricle with ejection fraction of 50%. This led to a more comprehensive imaging with myocardial perfusion scan March 16, 2012 that was unable to redemonstrate any segmental wall motion abnormalities or perfus ion defects but did confirm a low ejection fraction of 50%. She was given medical management with complete resolution of her depressed cardiac ejection fraction. Repeat cardiac echocar diogram on July 04, 2013 demonstrated an ejection fraction of 65%. PAST SURGICAL HISTORY: 1. Status post left anterior chest Port-A-Cath that was subsequently removed. 2. section 1981. PSYCHOSOCIAL HISTORY: She lives alone and independently in [place], [place]. HABITS: Positive for a history of tobacco use, none currently. Positive for ongoing marijua na use. Positive for a remote history of alcohol use, none currently. FAMILY HISTORY: There is no history of cancer in first-degree relatives. ROUTINE MEDICATIONS: 1. Lomotil as needed. 2. Vitamin D 50,000 units orally once a week. 3. [place] 5/325, 1 or 2 tablets every 4 hours as needed for pain. 4. Lisinopril 10 mg orally daily. 5. Multivitamin once a day. 6. [place] 3 fish oil 1 g orally daily. 7. Prilosec 20 mg orally daily. 8. Metamucil 1 unit dose orally twice daily. ALLERGIES: No known drug allergies. PHYSICAL EXAMINATION: Filed Vitals: 03/15/14 0905 03/15/14 0917 03/15/14 0920 BP: 118/81 Pulse: 82 Temp: 36.3 C (97.3 F) TempSrc: Oral Resp: 18 Weight: 96.8 kg (213 lb 6.5 oz) SpO2: 95% EYES: Conjunctivae clear. Sclerae anicteric. ENMT: Oropharynx free of lesions, mucous membranes moist. CARDIOVASCULAR: Regular rate and rhythm. Normal S1 and S2 without murmur, gallop, or rub. LUNGS: Good air movement bilaterally. No rhonchi, wheeze, or rales. ABDOMEN: Soft, nontender, nondistended, with normoactive bowel sounds. No hepatomegaly. No splenomegaly. No palpable masses. No ascites. LYMPH NODES: No cervical, supraclavicular, axillary, or inguinal lymphadenopathy. MUSCULOSKELETAL: No joint tenderness or swelling. No evidence of sarcopenia SKIN: No petechiae, ecchymoses, there is a sparse macular rash over the anterior tibia bila terally which the patient states is puritic and developed after walking in the [place] [facility] [place] recently. EXTREMITIES: No cyanosis, clubbing, or edema. NEUROLOGIC: Alert and oriented x3. Face symmetric. Voice articulate. Station and gait withi n normal limits. DATA: Recent Results (from the past 24 hour(s)) CBC WITH DIFFERENTIAL Component Value Range WBC 8.5 4.0-11.0 K/uL RBC 4.37 3.70-5.20 M/uL Hgb 13.7 11.5-16.0 g/dL Hct 40.7 34.0-47.0 % MCV 93.3 83.0-101.0 fL MCH 31.3 28.0-35.0 pg MCHC 33.6 32.0-36.0 g/dL RDW 13.0 <15.0 % Platelet Count 278 140-440 K/uL MPV 8.0 % Neutrophils 46.9 45.0-82.0 % % Lymphocytes 38.5 20.0-45.0 % % Monocytes 7.7 4.0-12.0 % % Eosinophils 5.8 (*) 0.0-5.0 % % Basophils 1.1 (*) 0.0-1.0 % Absolute Neutrophils 4.00 1.80-8.50 K/uL Absolute Lymphocytes 3.30 (*) 0.60-3.20 K/uL Absolute Monocytes 0.70 0.00-1.00 K/uL Absolute Eosinophils 0.50 (*) 0.00-0.40 K/uL Absolute Basophils 0.10 0.00-0.10 K/uL COMPREHENSIVE METABOLIC PANEL Component Value Range NA 139 136-149 mmol/L K 4.2 3.5-5.1 mmol/L CL 106 98-109 mmol/L CO2 24 24-31 mmol/L ANION GAP 9 3-16 mmol/L GLUCOSE 109 70-109 mg/dL BUN 12 7-18 mg/dL Creatinine, Serum 0.60 0.60-1.30 mg/dL eGFR if not >60 >=60 mL/min/1.73m2 CALCIUM 9.3 8.3-10.5 mg/dL ALBUMIN 4.2 3.2-5.0 g/dL BILIRUBIN TOTAL 0.4 0.1-1.5 mg/dL Total protein 7.2 6.0-7.8 g/dL AST 29 10-42 U/L ALT 51 (*) 6-45 U/L ALK PHOS 132 (*) 40-110 U/L GLOBULIN 3.0 Albumin/Globulin ratio 1.4 BUN/CREA 20.0 LACTATE DEHYDROGENASE Component Value Range LD TOTAL 209 (*) 91-180 U/L Problems That Were Updated This Visit ICD-9-CM Nonischemic/ chemotherapy induced cardiomyopathy Overview Echo 03/08/12, LVEF 50% Normal SPECT MPI 03/18/12, LVEF 50% Current Assessment & Plan Note No signs or symptoms of worsening of congestive heart failure, potentially treatment let related Continue lisinopril. Burkitt's lymphoma (HCC) Overview Burkitt's Lymphoma, August 2011 Current Assessment & Plan Note No signs or symptoms of recurrence Continue with observation Return to clinic in 6 months for clinical and laboratory followup Chronic diarrhea Overview Chronic diarrhea since diagnosis of Burkitt's lymphoma Current Assessment & Plan Note Symptoms have become worse. Refill on Lomotil. Refer to Dr. Aranda for colonoscopy to ex clude a gastrointestinal recurrence of Burkitt's lymphoma GERD (gastroesophageal reflux disease) Overview Gastroesophageal reflux disease likely related to medical obesity Current Assessment & Plan Note Continue omeprazole Neoplasm related pain (acute) (chronic) Overview Ongoing discomfort related to cancer and cancer treatment Current Assessment & Plan Note Refilled hydrocodone continue as needed RESOLVED: Chest pain Overview Nuclear stress test 03/17/12, LVEF 50% hiJessica kc RN - 03/15/2014 9:08 AM PDTREVIEW OF SYSTEMS Constitutional: Denies fatigue. Denies high fevers, shaking chills, anorexia, nausea, vomit ing, weight loss, or night sweats. Ear, Nose, Mouth, Throat: Denies odynophagia, dysphagia, or tinnitus. Cardiovascular: Denies chest pain, palpitations or orthopnea. Shortness of breath if she s tarts coughing. Respiratory: Pt just completed a round of antibiotics for pneumonia but continues to have a productive cough with light green sputum. Gastrointestinal: Denies abdominal pain, constipation, melena. Pt continues to have diarrhe a and states she has diarrhea especially after eating certain foods. Pt states she continues to have some blood on the tissue after having prolonged periods of diarrhea. Pt states she has been unable to get a colonoscopy and has cancelled her appointment twice due to pneumoni a. Genitourinary: Denies hematuria or dysuria. Musculoskeletal: Denies joint pain or tenderness. Neurologic: Denies headache, visual changes. 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 Endocrine: Denies peripheral edema or heat/cold intolerance. Hematologic: Denies spontaneous bruising or bleeding. Integumentary: Rash on lower legs which she states is itching and started after she shaved her legs 2-3 weeks ago. Pain: Denies pain. Note: Here for follow-up. documented in this encounter Plan of Treatment + +------+--------+ + + | Name | Type | Priori | Associated Diagnoses | Order Schedule | | | | ty | | | + +------+--------+ + + | Immunoglobulin, | Lab | STAT | [facility] | 1 Occurrences | | Panel, IgG and IgM | | | | starting 03/15/2014 | | and IgA | | | | until 03/15/2015 | + +------+--------+ + + | CBC with | Lab | STAT | [facility] | 1 Occurrences | | Differential | | | | starting 03/15/2014 | | | | | | until 03/15/2015 | + +------+--------+ + + | Comprehensive | Lab | STAT | [facility] | 1 Occurrences | | Metabolic Panel | | | | starting 03/15/2014 | | | | | | until 03/15/2015 | + +------+--------+ + + | Lactate | Lab | STAT | [facility] | 1 Occurrences | | Dehydrogenase | | | | starting 03/15/2014 | | | | | | until 03/15/2015 | + +------+--------+ + + | Hemoglobin A1C | Lab | STAT | Prediabetes | 1 Occurrences | | | | | | starting 03/15/2014 | | | | | | until 03/15/2015 | + +------+--------+ + + documented as of this encounter Procedures + +--------+ + + + | Procedure Name | Priori | Date/Time | Associated Diagnosis | Comments | | | ty | | | | + +--------+ + + + | CBC WITH | STAT | 03/15/2014 | [facility] | Results for this | | DIFFERENTIAL | | 8:53 AM | | procedure are in the | | | | PDT | | results section. | + +--------+ + + + | LACTATE | STAT | 03/15/2014 | [facility] | Results for this | | DEHYDROGENASE | | 8:53 AM | | procedure are in the | | | | PDT | | results section. | + +--------+ + + + | COMPREHENSIVE | STAT | 03/15/2014 | [facility] | Results for this | | METABOLIC PANEL | | 8:53 AM | | procedure are in the | | | | PDT | | results section. | + +--------+ + + + documented in this encounter Results Lactate Dehydrogenase (03/15/2014 8:53 AM PDT) + +---------+ + + + | Component | Value | Ref Range | Performed | Pathologist | | | | | At | Signature | + +---------+ + + + | LDH TOTAL | 209 (H) | 91 - 180 U/L | [facility] | | | | [...] + | [facility] | [address] | [place] | [phone] | | [facility] | | [address] | | | - LABORATORY | | | | + + + + + | [facility] | [address] | [place] | | | [facility] | | [address] | | | - LABORATORY | | | | + + + + + Comprehensive Metabolic Panel (03/15/2014 8:53 AM PDT) + + + + + + | Component | Value | Ref Range | Performed | Pathologist | | | | | At | Signature | + + + + + + | Na | 139 | 136 - 149 | [facility] | | | | | mmol/L | [facility] | | | | | | [facility] | | | | | | CENTER - | | | | | | LABORATORY | | + + + + + + | K | 4.2 | 3.5 - 5.1 | [facility] | | | | | mmol/L | [facility] | | | | | | MEDICAL | | | | | | CENTER - | | | | | | LABORATORY | | + + + + + + | Cl | 106 | 98 - 109 mmol/L | [facility] [...] + + + | Anion Gap | 9 | 3 - 16 mmol/L | [facility] [...] | 0.60 | 0.60 - 1.30 | [facility] | | | | | mg/dL | [facility] | | | | | | MEDICAL | | | | | | CENTER - | | | | | | LABORATORY | | + + + + + + | eGFR if not | >60Comment: GLOMERULAR | >=60 | [facility] | | | | FILTRATION | mL/min/1.73m2 | [facility] | | | MAURITIAN | RATE,ESTIMATED | | MEDICAL | | | | mL/min/1.96v8Bkhn than | | CENTER - | | [...] Albumin | 4.2 | 3.2 - 5.0 g/dL | [facility] | | | | | | [facility] | | | | | | MEDICAL | | | | | | CENTER - | | | | | | LABORATORY | | + + + + + + | Bilirubin | 0.4 | 0.1 - 1.5 mg/dL | [facility] | | | Total | | | [facility] | | | | | | MEDICAL | | | | | | CENTER - | | | | | | LABORATORY | | + + + + + + | Total | 7.2 | 6.0 - 7.8 g/dL | [facility] | | | Protein | | | [facility] | | | | | | MEDICAL | | | | | | CENTER - | | | | | | LABORATORY | | + + + + + + | AST | 29 | 10 - 42 U/L | [facility] | | | | | | [facility] | | | | | | MEDICAL | | | | | | CENTER - | | | | | | LABORATORY | | + + + + + + | ALT | 51 (H) | 6 - 45 U/L | [facility] | | | | | | [facility] | | | | | | [facility]ICAL | | | | | | CENTER - | | | | | | LABORATORY | | + + + + + + | Alkaline | 132 (H) | 40 - 110 U/L | [facility] | | | Phosphatase | | | [facility] | | | | | | MEDICAL | | | | | | CENTER - | | | | | | LABORATORY | | + + + + + + | Globulin | 3.0 | g/dL | [facility] | | | | | | [facility] | | | | | | MEDICAL | | | | | | CENTER - | | | | | | LABORATORY | | + + + + + + | Albumin/Katja | 1.4 | | [facility] | | | bulin Ratio | | | [facility] | | | | | | MEDICAL | | | | | | CENTER - | | | | | | LABORATORY | | + + + + + + | BUN/Creatin | 20.0 | | [facility] | | | ine [...] + | [facility] | [address] | [place] | [phone] | | [facility] | | [address] | | | - LABORATORY | | | | + + + + + | [facility] | [address] | [place] | | | [facility] | | [address] | | | - LABORATORY | | | | + + + + + CBC with Differential (03/15/2014 8:53 AM PDT) + + + + + + | Component | Value | Ref Range | Performed | Pathologist | | | | | At | Signature | + + + + + + | WBC | 8.5 | 4.0 - 11.0 K/uL | [facility] | | | | | | [facility] | | | | | | MEDICAL | | | | | | CENTER - | | | | | | LABORATORY | | + + + + + + | RBC | 4.37 | 3.70 - 5.20 | [facility] | | | | | M/uL | [facility] | | | | | | MEDICAL | | | | | | CENTER - | | | | | | LABORATORY | | + + + + + + | Hemoglobin | 13.7 | 11.5 - 16.0 | [facility] | | | | | g/dL | [facility] | | | | | | MEDICAL | | | | | | CENTER - | | | | | | LABORATORY | | + + + + + + | Hematocrit | 40.7 | 34.0 - 47.0 % | [facility] | | | | | | [facility] | | | | | | [facility]ICAL | | | | | | CENTER - | | | | | | LABORATORY | | + + + + + + | MCV | 93.3 | 83.0 - 101.0 fL | [facility] [...] + + | MCHC | 33.6 | 32.0 - 36.0 | [facility] | | | | | g/dL | [facility] | | | | | | MEDICAL | | | | | | CENTER - | | | | | | LABORATORY | | + + + + + + | RDW-CV | 13.0 | <15.0 % | [facility] | | | | | | [facility] | | | | | | MEDICAL | | | | | | CENTER - | | | | | | LABORATORY | | + + + + + + | Platelet | 278 | 140 - 440 K/uL | [facility] | | | Count | | | [facility] | | | | | | MEDICAL | | | | | | CENTER - | | | | | | LABORATORY | | + + + + + + | MPV | 8.0 | fL | [facility] | | | | | | [facility] | | | | | | MEDICAL | | | | | | CENTER - | | | | | | LABORATORY | | + + + + + + | % | 46.9 | 45.0 - 82.0 % | [facility] | | | Neutrophils | | | [facility] | | | | | | MEDICAL | | | | | | CENTER - | | | | | | LABORATORY | | + + + + + + | % | 38.5 | 20.0 - 45.0 % | [facility] | | | Lymphocytes | | | [facility] | | | | | | MEDICAL | | | | | | CENTER - | | | | | | LABORATORY | | + + + + + + | % Monocytes | 7.7 | 4.0 - 12.0 % | [facility] | | | | | | [facility] | | | | | | MEDICAL | | | | | | CENTER - | | | | | | LABORATORY | | + + + + + + | % | 5.8 (H) | 0.0 - 5.0 % | [facility] | | | Eosinophils | | | [facility] | | | | | | MEDICAL | | | | | | CENTER - | | | | | | LABORATORY | | + + + + + + | % Basophils | 1.1 (H) | 0.0 - 1.0 % | [facility] | | | | | | [facility] | | | | | | MEDICAL | | | | | | CENTER - | | | | | | LABORATORY | | + + + + + + | Absolute | 4.00 | 1.80 - 8.50 | [facility] | | | Neutrophils | | K/uL | [facility] | | | | | | MEDICAL | | | | | | CENTER - | | | | | | LABORATORY | | + + + + + + | Absolute | 3.30 (H) | 0.60 - 3.20 | [facility] | | | Lymphocytes | | K/uL | [facility] | | | | | | MEDICAL | | | | | | CENTER - | | | | | | LABORATORY | | + + + + + + | Absolute | 0.70 | 0.00 - 1.00 | [facility] | | | Monocytes | | K/uL | [facility] | | | | | | MEDICAL | | | | | | CENTER - | | | | | | LABORATORY | | + + + + + + | Absolute | 0.50 (H) | 0.00 - 0.40 | [facility] | | | Eosinophils | | K/uL | [facility] | | | | | | MEDICAL | | | | | | CENTER - | | | | | | LABORATORY | | + + + + + + | Absolute | 0.10 | 0.00 - 0.10 | [facility] | | | Basophils | | K/uL | [facility] | | | | | | MEDICAL | | | | | | CENTER - | | | | | | LABORATORY | | + + + + + + + + | Specimen | + + | Blood | + + + + + + + | Performing | Address | City[facility] | Phone Number | | Organization | | | | + + + + + | [facility] | [address] | [place] | [phone] | | [facility] | | [address] | | | - LABORATORY | | | | + + + + + | [facility] | [address] | [place] | | | [facility] | | [address] | | | - LABORATORY | | | | + + + + + documented in this encounter Visit Diagnoses + + | Diagnosis | + + | [facility] - Primary Burkitt's tumor or lymphoma, unspecified site, | | extranodal and solid organ sites | + + | Diarrhea | + + | GERD (gastroesophageal reflux disease) Esophageal reflux | + + | Hypertension Unspecified essential hypertension | + + | Neoplasm related pain (acute) (chronic) | + + | Rash Rash and other nonspecific skin eruption | + + | Prediabetes Other abnormal glucose | + + documented in this encounter"
--- OUTSIDE RECORDS SUMMARY | ~2019-09-11 | XMS | Encounter Summary ---
Demographics + + + | Address | [address] | | | [place] [address] | + + + | Home Phone | | + + + | Preferred Language | Unknown | + + + | Marital Status | | + + + | Jehovah'S Witness Affiliation | Unknown | + + + | Race | Unknown | + + + | Ethnic Group | Unknown | + + + Author + + + | Author | [facility] | | | and Hermannana | + + + | Organization | [facility] | | | and Hermannana [...] [place], [place] | | | | | [address] | | + + + + + | Greta [address] | ECON | [place], [place] | | | | | [address] | | + + + + + Care Team Providers + +------+ + | Care Quality Nurse Name | Role | Phone | + +------+ + | Becky Jennings | PCP | | + +------+ + Reason for Visit + + + | Reason | Comments | + + + | Appointment | 1 yr fup due in August | + + + Encounter Details +--------+ + + + + | Date | Type | Department | Care Team | Description | +--------+ + + + + | 06/26/ | Telephone | [facility] | Endy Polo, | Appointment (1 yr | | 2014 | | CARDIOLOGY [address] [place] | fup due in August) | | | | [place], | [facility] | | | | [place] [address] | [place] [address] | | | | | [phone] | [phone] | | | | | | | [...]
--- OUTSIDE RECORDS SUMMARY | ~2019-09-11 | XMS | Encounter Summary ---
Demographics + + + | Address | [address] | | | [place] [address] | + + + | Home Phone [...] Author | [facility] | | | and Hermannana | + + + | Organization | [facility] | | [...] [place], [place] | | | | | [address] | | + + + + + | Greta Broncheau | ECON | [place], [place] | | | | | [address] | | + + + + + Care Team Providers + +------+ + | Care Permit Coordinator Name | Role | Phone | + +------+ + PCP | Unavailable | + +------+ + Encounter Details +--------+ + + + + | Date | Type | Department | Care Team | Description | +--------+ + + + + | 03/15/ | Hospital | [facility] | Thelma, | | | 2011 - | Encounter | MED CTR MED ONC | Antonio Infante MD [address] | | | | [address] [place] | [address] [place] | | | 03/20/ | | [place] [address] | [place] [address] | | | 2011 | | [phone] | [phone] | | | | | | | [...] Frida Christian is a 51-year-old woman from [place], [place], with an 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 | [address] | [place] | | | [facility] | | [address] | | | - LABORATORY | | | | + + + + + CBC with Differential (03/19/2012 8:24 AM PDT) + + + + + + | Component | Value | Ref Range | Performed | Pathologist | | | | | At | Signature | + + + + + + | WBC | 4.8 (A) | 4.0 - 11.0 K/uL | [facility] | | | | | | [facility] | | | | | | MEDICAL | | | | | | CENTER - | | | | | | LABORATORY | | + + + + + + | RBC | 2.91 (L) | 3.70 - 5.20 [...] + | [facility] | [address] | [place] | [phone] | | [facility] | | [address] | | | - LABORATORY | | | | + + + + + | [facility] | [address] | [place] | | | [facility] | | [address] | | | - LABORATORY | | | | + + + + + Basic Metabolic Panel (03/18/2012 5:30 AM PDT) + + + + + + | Component | Value | Ref Range | Performed | Pathologist | | | | | At | Signature | + + + + + + | Glucose | 94 | 70 - 109 mg/dL | [facility] | | | | | | [facility] | | | | | [...] + | [facility] | [address] | [place], [place] | [phone] | | [facility] | | [address] | | | - LABORATORY | | | | + + + + + | [facility] | [address] | [place], [place] | | | [facility] | | [address] | | | - LABORATORY | | | | + + + + + Magnesium (03/18/2012 5:30 AM PDT) + +-------+ + + + | Component | Value | Ref Range | Performed | Pathologist | | | | | At | Signature | + +-------+ + + + | Magnesium | 2.0 | 1.8 - 2.5 mg/dL | [facility] | | | | [...] + | [facility] | [address] | [place] | [phone] | | [facility] | | [address] | | | - LABORATORY | | | | + + + + + | [facility] | [address] | [place], [place] | | | [facility] | | [address] | | | - LABORATORY | | | | + + + + + CBC with Differential (03/18/2012 5:30 AM PDT) + + + + + + | Component | Value | Ref Range | Performed | Pathologist | | | | | At | Signature | + + + + + + | WBC | 6.7 (A) | 4.0 - 11.0 K/uL | [facility] | | | [facility] | | | | | | MEDICAL | | | | | | CENTER - | | | | | | LABORATORY | | + + + + + + | RBC | 2.95 (L) | 3.70 - 5.20 [...] + | [facility] | [address] | [place] | [phone] | | [facility] | | [address] | | | - LABORATORY | | | | + + + + + | [facility] | [address] | [place] | | | [facility] | | [address] | | | - LABORATORY | | [...] (H) | 70 - 109 mg/dL | [facility] [...] | 0.72 | 0.60 - 1.30 | [facility] | [...] 3.6 (L) | 6.0 - 17.0 | [facility] | [...] [address] | [place] | [phone] | | [facility] | | [address] | | | - LABORATORY | | | | + + + + + | [facility] | [address] | [place] | | | [facility] | | [address] | | | - LABORATORY | | | | + + + + + Magnesium (03/17/2012 5:31 AM PDT) + +---------+ + + + | Component | Value | Ref Range | Performed | Pathologist | | | | | At | Signature | + +---------+ + + + | Magnesium | 1.4 (L) | 1.8 - 2.5 mg/dL | [facility] [...] | + + + + + | [facility] | [address] | [place] | [phone] | | [facility] | | [address] | | | - LABORATORY | | | | + + + + + | [facility] | [address] | [place], [place] | | | [facility] | | [address] | | | - LABORATORY | | | | + + + + + CBC with Differential (03/17/2012 5:31 AM PDT) + + + + + + | Component | Value | Ref Range | Performed | Pathologist | | | | | At | Signature | + + + + + + | WBC | 7.6 (A) | 4.0 - 11.0 K/uL | [facility] | | | | | [facility] | | | | | | MEDICAL | | | | | | CENTER - | | | | | | LABORATORY | | + + + + + + | RBC | 3.00 (L) | 3.70 - 5.20 [...] + | [facility] | [address] | [place], [place] | [phone] | | [facility] | | [address] | | | - LABORATORY | | | | + + + + + | [facility] | [address] | [place], [place] | | | [facility] | | [address] | | | - LABORATORY | | [...] 12 | 7 - 18 mg/dL | [facility] | | | | | | [facility] | | | | | | MEDICAL | | | | | | CENTER - | | | | | | LABORATORY | | + + + + + + | Creatinine | 0.78 | 0.60 - 1.30 | [facility] | | | | | mg/dL | [...] | 15.4 | 12 - 20 | [facility] | | | ine Ratio | | | [facility] | | | | | | MEDICAL | | | | | | CENTER - | | | | | | LABORATORY | | + + + + + + | Na | 143 | 136 - 149 mEq/L | [facility] [...] + | [facility] | [address] | [place], [place] | [phone] | | [facility] | | [address] | | | - LABORATORY | | | | + + + + + | [facility] | [address] | [place] | | | [facility] | | [address] | | | - LABORATORY | | | | + + + + + CBC with Differential (03/16/2012 7:25 AM PDT) + + + + + + | Component | Value | Ref Range | Performed | Pathologist | | | | | At | Signature | + + + + + + | WBC | 6.8 (A) | 4.0 - 11.0 K/uL | [facility] | | | | [facility] | | | | | | MEDICAL | | | | | | CENTER - | | | | | | LABORATORY | | + + + + + + | RBC | 3.12 (L) | 3.70 - 5.20 [...] + | [facility] | [address] | [place], [place] | [phone] | | [facility] | | [address] | | | - LABORATORY | | | | + + + + + | [facility] | [address] | [place], [place] | | | [facility] | | [address] | | | - LABORATORY | | | | + + + + + FL Lumbar Puncture (03/15/2012 11:32 AM PDT) + + | Specimen | + + | | + + + + + | Narrative | Performed At | + + + | [facility] Diagnostic Imaging Department | [facility] | | [address] | [facility] | | FLUOROSCOPY GUIDED LUMBAR | DIAG [...] | | 13:37 Transcribed Date/Time: 03/15/2012 13:48 [facility]: | | | <Electronically Signed by Moises Rodas MD> 03/15/12 6800 | | + + + + + | Procedure Note | + + | Philip Groves Conversion - 12/08/2013 5:20 PM [facility] | | Diagnostic Imaging Department | | [address] [facility] | | | | | | [...] | Transcribed Date/Time: 03/15/2012 13:48 | | [facility]: | | <Electronically Signed by Moises Rodas MD> 03/15/12 2140 | + + + +---------+ + + | Performing | Address | City/State/Zipcode | Phone Number | | Organization | | | | + +---------+ + + | [place] | | | | | [facility] | | | | + +---------+ + + NM Myocardial Perfusion Mult SPECT (03/15/2012 11:32 AM PDT) + + | Specimen | + + | | + + + + + | Narrative | Performed At | + + + | [facility] Diagnostic Imaging Department | [place] | | [address], [place] | [facility] | | REGADENOSON SESTAMIBI STRESS | DIAG [...] | | | Transcribed Date/Time: 03/18/2012 07:15 [facility]: | | | <Electronically Signed by Endy Polo MD [facility]> 03/18/12 | | | 0737 | | + + + + + | Procedure Note | + + | Germain, Rad Conversion - 12/08/2013 5:20 PM [facility] | | Diagnostic Imaging Department [address] [place] [address] | | REGADENOSON SESTAMIBI STRESS TEST, 03/17/2012 [...] 07:15Transcriptionist: <Electronically Signed by Endy Polo MD [facility]> | | 03/18/12 0737 | |zontal long axis projections. The left [...] 06:43 | |Transcribed Date/Time: 03/18/2012 07:15 | |[facility]: | |<Electronically Signed by Endy Polo MD [facility]> 03/18/12 0737 | + + + +---------+ + + | Performing | Address | City/State/Zipcode | Phone Number | | Organization | | | | + +---------+ + + | [place] | | | | | [facility] | | | | + +---------+ + + documented in this encounter Visit Diagnoses Not on filedocumented in this encounter"
--- OUTSIDE RECORDS SUMMARY | ~2019-09-11 | XMS | Encounter Summary ---
Demographics + + + | Address | [address] | | | [place] [address] | + + + | Home Phone | | + + + | Preferred Language | Unknown | + + + | Marital Status | | + + + | Voodoo Affiliation | Unknown | + + + | Race | Unknown | + + + | Ethnic Group | Unknown | + + + Author + + + | Author | [facility] | | | and Hermannana | + + + | Organization | [facility] | | | and [...] [place], [place] | | | | | [address] | | + + + + + | Greta Broncheau | ECON | [place], [place] | | | | | [address] | | + + + + + Care Team Providers + +------+ + | Care Spd Tech Name | Role | Phone | + +------+ + | Becky Jennings | PCP | | + +------+ + Encounter Details +--------+ + + + + | Date | Type | Department | Care Team | Description | +--------+ + + + + | 07/04/ | Hospital | [facility] | | | | 2012 - | Encounter | [facility] | | | | | | C[facility] [address] | | | | 07/31/ | | [place] | | | | 2012 | | [address] | | | | | | [phone] | | | +--------+ + + + [...] | 03/25/20 | | | (VITAMIN D3) [address] | mouth Once a week. | | [...] + | CBC WITH | Routin | 07/04/2013 | | Results for this | | DIFFERENTIAL | e | 2:16 PM | | procedure are in the | | | | PDT | | results section. | + +--------+ + + + | LACTATE | Routin | 07/04/2013 | | Results for this | | DEHYDROGENASE | e | 2:16 PM | | procedure are in the | | | | PDT | | results section. | + +--------+ + + + | COMPREHENSIVE | Routin | 07/04/2013 | | Results for this | | METABOLIC PANEL | e | 2:16 PM | | procedure are in the | | | | PDT | | results section. | + +--------+ + + + documented in this encounter Results CBC with Differential (07/04/2013 2:16 PM PDT) + +-------+ + + + | Component | Value | Ref Range | Performed | Pathologist | | | | | At | Signature | + +-------+ + + + | MANUAL | NO | | [facility] | | | [facility] | | | [facility] ? | | | [facility]ICAL | | | | | | CENTER - | | | | | | LABORATORY | | + +-------+ + + + | WBC | 7.7 | 4.0 - 11.0 K/uL | [facility] | | | | | | [facility] | | | | | | MEDICAL | | | | | | CENTER - | | | | | | LABORATORY | | + +-------+ + + + | RBC | 3.76 | 3.70 - 5.20 | [facility] | | | | | M/uL | [facility] | | | | | | MEDICAL | | | | | | CENTER - | | | | | | LABORATORY | | + +-------+ + + + | Hemoglobin | 12.4 | 11.5 - 16.0 | [facility] | | | | | gm/dL | [facility] | | | | | | MEDICAL | | | | | | CENTER - | | | | | | LABORATORY | | + +-------+ + + + | Hematocrit | 36.1 | 34.0 - 47.0 % | [facility] | | | | | | [facility] | | | | | | MEDICAL | | | | | | CENTER - | | | | | | LABORATORY | | + +-------+ + + + | MCV | 96.1 | 83.0 - 101.0 fL | [facility] | | | | | | [facility] | | | | | | MEDICAL | | | | | | CENTER - | | | | | | LABORATORY | | + +-------+ + + + | MCH | 32.9 | 28.0 - 35.0 pg | [facility] | | | | | | [facility] | | | | | | MEDICAL | | | | | | CENTER - | | | | | | LABORATORY | | + +-------+ + + + | MCHC | 34.3 | 32.0 - 36.0 | [facility] | | | | | g/dL | [facility] | | | | | | MEDICAL | | | | | | CENTER - | | | | | | LABORATORY | | + +-------+ + + + | RDW-CV | 13.2 | <15.0 % | [facility] | | | | | | [facility] | | | | | | MEDICAL | | | | | | CENTER - | | | | | | LABORATORY | | + +-------+ + + + | Platelet | 249 | 140 - 440 K/uL | [facility] | | | Count | | | [facility] | | | | | | MEDICAL | | | | | | CENTER - | | | | | | LABORATORY | | + +-------+ + + + | % | 45.8 | 45 - 75 % | [facility] | | | Neutrophils | | | [facility] | | | | | | MEDICAL | | | | | | CENTER - | | | | | | LABORATORY | | + +-------+ + + + | % | 41.3 | 20 - 45 % | [facility] | | | Lymphocytes | | | [facility] | | | | | | MEDICAL | | | | | | CENTER - | | | | | | LABORATORY | | + +-------+ + + + | % Monocytes | 7.6 | 4 - 12 % | [facility] | | | | | | [facility] | | | | | | MEDICAL | | | | | | CENTER - | | | | | | LABORATORY | | + +-------+ + + + | % | 4.6 | 0 - 5 % | [facility] | | | Eosinophils | | | [facility] | | | | | | MEDICAL | | | | | | CENTER - | | | | | | LABORATORY | | + +-------+ + + + | % Basophils | 0.7 | 0 - 1 % | [facility] | | | | | | [facility] | | | | | | MEDICAL | | | | | | CENTER - | | | | | | LABORATORY | | + +-------+ + + + | Absolute | 3.5 | 1.5 - 6.6 K/uL | [facility] | | | Neutrophils | | | [facility] | | | | | | MEDICAL | | | | | | CENTER - | | | | | | LABORATORY | | + +-------+ + + + | Absolute | 3.2 | 0.6 - 3.2 K/uL | [facility] | | | Lymphocytes | | | [facility] | | | | | | MEDICAL | | | | | | CENTER - | | | | | | LABORATORY | | + +-------+ + + + | Absolute | 0.6 | 0.0 - 1.0 K/uL | [facility] | | | Monocytes | | | [facility] | | | | | | MEDICAL | | | | | | CENTER - | | | | | | LABORATORY | | + +-------+ + + + | Absolute | 0.4 | 0.0 - 0.4 K/uL | [facility] | | | Eosinophils | | | [facility] | | | | | | MEDICAL | | | | | | CENTER - | | | | | | LABORATORY | | + +-------+ + + + | Absolute | 0.1 [...] + | [facility] | [address] | [place], [place] | [phone] | | [facility] | | [address] | | | - LABORATORY | | | | + + + + + | [facility] | [address] | [place], [place] | | | [facility] | | [address] | | | - LABORATORY | | | | + + + + + Comprehensive Metabolic Panel (07/04/2013 2:16 PM PDT) + + + + + + | Component | Value | Ref Range | Performed | Pathologist | | | | | At | Signature | + + + + + + | Glucose | 93 | 70 - 109 mg/dL | [facility] [...] + + + + | Alkaline | 105 | 40 - 110 IU/L | [facility] | | | Phosphatase | | | [facility] | | | | | | MEDICAL | | | | | | CENTER - | | | | | | LABORATORY | | + + + + + + | AST | 31 | 10 - 42 IU/L | [facility] | | | | | | [facility] | | | | | | MEDICAL | | | | | | CENTER - | | | | | | LABORATORY | | + + + + + + | ALT | 56 (H) | 6 - 45 IU/L | [...] + + + + | Total | 6.7 | 6.0 - 7.8 gm/dL | [facility] [...] + + + + | Creatinine | 0.76 | 0.60 - 1.30 | [facility] | [...] + + + | Anion Gap | 14.0 | 6.0 - 17.0 | [facility] | [...] [address] | [place] | [phone] | | [facility] | | [address] | | | - LABORATORY | | | | + + + + + | [facility] | [address] | [place] | | | [facility] | | [address] | | | - LABORATORY | | | | + + + + + Lactate Dehydrogenase (07/04/2013 2:16 PM PDT) + +-------+ + + + | Component | Value | Ref Range | Performed | Pathologist | | | | | At | Signature | + +-------+ + + + | LDH TOTAL | 152 | 91 - 180 IU/L | [facility] | | | | | | [facility] | [address] | [place] | [phone] | | [facility] | | [address] | | | - LABORATORY | | | | + + + + + | [facility] | [address] | [place], [place] | | | [facility] | | [address] | | | - LABORATORY | | | | + + + + + documented in this encounter Visit Diagnoses Not on filedocumented in this encounter"
--- OUTSIDE RECORDS SUMMARY | ~2019-09-11 | XMS | Encounter Summary ---
Demographics + + + | Address | [address] | | | [place] [address] | + + + | Home Phone | | + + + | Preferred Language | Unknown | + + + | Marital Status | Single | + + + | Jehovah'S Witness Affiliation | NON | + + + | Race | or | + + + | Ethnic Group | Not or | + + + Author + + + | Author | [facility] | + + + | Organization | [facility] | + + + | Address | Unknown | + + + | Phone | Unavailable | + + + Support + + + + + | Name | Relationship | Address | Phone | + + + + + | Yue Fischer | ECON | [address] | | | | | [place] | | | | | [address] | | + + + + + | Greta [place] | ECON | Unknown | | + + + + + Care Team Providers + +------+ + | Care Cinnamon Grinder Name | Role | Phone | + [...] + + | 11/13/ | Clinical | Hematology/Medical | Nurse6, Hem | Bone Marrow | | 2011 | Support | Oncology at [facility] | [place] [address] | | | | Staff | [address] | [address], [address] | | | | | Mailcode: Magdalena | [address] [place], [place] | | | | | for Health and | [address] | | | | | [facility] | | | | | | [place], [place] | | | | | | [address] | | | | | | [phone] | | | +--------+ + + + [...] | | + +---------+ +------+--------+------+ | LORazepam (aka ATIVAN) | New Bag | 11/13/19 | [...] mL, intravenous, ONCE, 1 | | 12 4:00 | | | | | dose, 11/13/11 at 1815 | | PM PST | | | | + +---------+ + +--------+---+ +---+---+ | | | +---+---+ documented in this encounter"
--- OUTSIDE RECORDS SUMMARY | ~2019-09-11 | XMS | Encounter Summary ---
Demographics + + + | Address | [address] | | | [place] [address] | + + + | Home Phone | | + + + | Preferred Language | Unknown | + + + | Marital Status | | + + + | Temple Affiliation | Unknown | + + + | Race | Unknown | + + + | Ethnic Group | Unknown | + + + Author + + + | Author | [facility] | | | and Hermannana | + + + | Organization | [facility] | | | and Hermannana [...] [place], [place] | | | | | [address] | | + + + + + | Greta Broncheau | ECON | [place], [place] | | | | | [address] | | + + + + + Care Team Providers + +------+ + | Care Live Truck Technician Name | Role | Phone | + +------+ + PCP | Unavailable | + +------+ + Encounter Details +--------+ + + + + | Date | Type | Department | Care Team | Description | +--------+ + + + + | 12/24/ | Hospital | [facility] | [place], | | | 2011 - | Encounter | MED CTR MED ONC | Antonio Infante MD [address] | | | | [address] [place] | [address] [place] | | | 12/29/ | | [place] [address] | [place] [address] | | | 2011 | | [phone] | [phone] | | | | | | | [...] encounter Discharge Summaries Antonio Renee MD - 12/24/2011 12:46 PM PSTADMISSION DATE: 12/24/2011 DISCHARGE DATE: 12/29/2011 ADMITTING DIAGNOSIS: Burkitt's lymphoma. DISCHARGE DIAGNOSIS: BURKITT'S LYMPHOMA. PROCEDURE NOTE: Cycle number 2A Rituxan/hyper-CVAD chemotherapy with 12 mg of intrathecal methotrexa te administered on December 24, 2011. COMPLICATIONS: None. CONSULTATIONS: None. HOSPITAL COURSE: Frida Christian is a 51-year-old woman from [place], [place] with Burkitt' s lymphoma . She was admitted to [facility] on December 24, 2011 for cycle 2A of Rituxan/hyper-CVAD chemothe rapy. On December 24, 2011, day one of therapy, she received 650 mg of oral Tylenol, 25 mg of int ravenous B enadryl, 750 mg of intravenous Rituxan. On December 25, 2011, day 2 of therapy, she received 12 mg of intrathecal methotrexate with the kristina buitrago of Dr. Tony Farias in radiology, who performed a lumbar puncture. She th en went on to receive 750 mg of intravenous Cytoxan over 3 hours q.12h. x2. She began a co ntinuous intravenous infusion o f Mesna at 1140 mg over 24 hours. She was premedicated wit h 24 mg of oral Zofran and 20 mg of oral D ecadron. On December 26, 2011, day 3 of therapy, she received 750 mg of intravenous cyclophosphamide twice, se parated by 12 hours. She continued on Mesna at 1140 mg as a continuous infusion over 24 hours. She received premedications with Zofran 24 mg and Decadron 20 mg both give n orally. On December 27, 2011, day 4 of therapy, she received 750 mg of intravenous cyclophosphamide twice, se parated by 12 hours. She continued on Mesna at 1140 mg as a continuous infusion over 24 hours. She received premedications with Zofran 24 mg orally and Decadron 20 mg or ally. On December 28, 2011, day 5 of therapy, she received 2 mg of intravenous vincristine, 95 mg of intrav enous Adriamycin and completed her Mesna infusion. She received premedication w ith 25 mg of oral Zof ran, 20 mg of oral Decadron. On December 29, 2011, the day of discharge, day 6 of therapy, she received 24 mg oral Zofra n and 6 mg of subcutaneous Neulasta. Chemotherapy was tolerated without any adverse effects. She did have significant back pain related t o her intrathecal injections for which she received her routine medications with OxyContin as well as as needed extra medication with morphine sulfate immediate release 15 mg. Otherwise chemotherapy was uncomplicated. She had no nausea or emesis, dyspnea, or fever. PHYSICAL EXAMINATION VITAL SIGNS: Temperature is 36.1 degrees Celsius. Pulse is 57, blood pressure is 113/66, respirator y rate 18, saturation of oxygen was 96% on room air. Immediate 24 hour input wa s 5675 mL, output was 7400 mL. Her weight was 84.8 kg. HEENT: Sclerae anicteric, Oropharynx free of lesions. NECK: Supple without thyromegaly. LUNGS: Clear to auscultation. CARDIOVASCULAR: Regular rate and rhythm. Normal S1, normal S2, without rubs, gallops, mur murs. ABDOMEN: Obese, but nontender and nondistended. No hepatomegaly. No splenomegaly. No as cites. LYMPH NODE SURVEY: There is no cervical, supraclavicular, axillary, or inguinal lymphadeno bettie. MUSCULOSKELETAL: There is no joint tenderness or swelling. NEUROLOGIC: She was awake and alert. Her face was symmetric, voice articulate. Her stati on and gai t was unimpaired, and she was totally independent of all her activities in the h ospital room. LABORATORY DATA: Hemoglobin is 8.9, hematocrit 26.1%, platelet count 368,000, white count 8800, sodi um 137, potassium 3.7, chloride 101, CO2 28, BUN is 8, creatinine 0.54, glucose 153. Calcium was 8.6. DISCHARGE MEDICATIONS 1. Ativan 2 mg every 4 hours as needed for nausea, anxiety or restlessness. 2. Compazine 5 to 10 mg every 6 hours as needed for nausea. 3. Diflucan 200 mg orally twice daily. 4. Levaquin 500 mg once daily. 5. Lomotil 1 tablet after each loose stool as needed for diarrhea. 6. Marinol 5 mg orally 3 times a day. 7. MiraLax 17 g orally as needed for constipation. 8. Nystatin topical power twice daily as needed for Suzette. 9. Austin 5/325 one or two tablets every 4 hours as needed for pain. 10. OxyContin 40 mg orally twice daily. 11. Prilosec 20 mg orally daily., 12. Senna 1 to 2 tablets as needed for constipation. 13. Septra DS one tablet orally twice daily on Tuesdays and only. 14. Acyclovir 800 mg orally once daily. 15. Morphine sulfate immediate release 15-mg tablet, one tablet every 6 hours as needed fo r pain. FOLLOWUP: She will see Dr. Renee at the [facility] o n January 04, 2012 at 1230 hours. At that point, we will re-access and flush her and redress her PICC line, and s he will also be instructed to be restart dexamethasone at 20 mg orally daily x4 days. DICTATED BY: Antonio Renee MD Oncology JOB #: [id number] EXT JOB #:[id number] cc: Dylan Martinez MD <Electronically Signed by Antonio Renee MD> 12/29/11 1513 documented in this encounter Plan of Treatment Not on filedocumented as of this encounter Procedures + +--------+ + + + | Procedure Name | Priori | Date/Time | Associated Diagnosis | Comments | | | ty | | | | + +--------+ + + + | CBC WITH MANUAL | Routin | 12/28/2011 | | Results for this | | DIFFERENTIAL | e | 5:31 AM | | procedure are in the | | | | PST | | results section. | + +--------+ + + + | BASIC METABOLIC | Routin | 12/28/2011 | | Results for this | | PANEL | e | 5:31 AM | | procedure are in the | | | | PST | | results section. | + +--------+ + + + | FL LUMBAR PUNCTURE | | 12/24/2011 | | Results for this | | DIAGNOSTIC | | 12:46 PM | | procedure are in the | | | | PST | | results section. | + +--------+ + + + documented in this encounter Results CBC with Manual Differential (12/28/2011 5:31 AM PST) + + + + + + | Component | Value | Ref Range | Performed | Pathologist | | | | | At | Signature | + + + + + + | WBC | 8.8 (A) | 4.0 - 11.0 K/uL | [facility] | [facility] | | [facility] | | | [facility] - | | | | | | LABORATORY | | + + + + + + | RBC | 3.11 (L) | 3.70 - 5.20 | [facility] [...] + + + + | MCV | 83.8 | 83.0 - 101.0 fL | [facility] | | | [facility] | | | | | | [facility] | | | | | | [facility] - | | | | | | LABORATORY | | + + + + + + | MCH | 28.5 | 28.0 - 35.0 pg | [facility] [...] + + + + | RDW-CV | 16.8 (H) | <15.0 % | [facility] | | [facility] | | | | | | [facility] | | | | | | [facility] - | | | | | | LABORATORY | | + + + + + + | Platelet | 368 | 140 - 440 K/uL | [facility] | | | Count | | | [facility] | | | | | | [facility] | | | | | | [facility] - | | | | | | LABORATORY | | + + + + + + | Total | 100 | | [facility] | | | Counted | | | [facility] | | | | | | [facility] | | | | | | C[facility] - | | | | | | LABORATORY | | + + + + + + | % Segmented | 78 (H) | 50 - 70 % | [facility] | | | | | | [facility] | | | Neutrophils | | | MEDICAL | | | | | | CENTER - | | | | | | LABORATORY | | + + + + + + | % | 13 (L) | 20 - 40 % | [facility] | | | Lymphocytes | | | [facility] | | | | | | MEDICAL | | | | | | CENTER - | | | | | | LABORATORY | | + + + + + + | % Monocytes | 9 (H) | 1 - 6 % | [facility] | | | | | | [facility] | | | | | | [facility]ICAL | | | | | | CENTER - | | | | | | LABORATORY | | + + + + + + | Anisocytosi | 3+ | | [facility] | | | s | | | [facility] | | | | | | [facility]ICAL | | | | | | CENTER - | | | | | | LABORATORY | | + + + + + + | Polychromas | 0-1+ | | [facility] | | | ia | | | [facility] | | | | | | MEDICAL | | | | | | CENTER - | | | | | | LABORATORY | | + + + + + + | Platelet | ADEQUATE | | [facility] | | | Estimate | | | [facility] | | [...] + | [facility] | [address] | [place], [place] | [phone] | | [facility] | | [address] | | | - LABORATORY | | | | + + + + + | [facility] | [address] | [place], [place] | | | [facility] | | [address] | | | - LABORATORY | | | | + + + + + Basic Metabolic Panel (12/28/2011 5:31 AM PST) + + + + + + | Component | Value | Ref Range | Performed | Pathologist | | | | | At | Signature | + + + + + + | Glucose | 153 (H) | 70 - 109 mg/dL | [...] + + + + | Creatinine | 0.54 (L) | 0.60 - 1.30 | [facility] [...] + + + + | BUN/Creatin | 14.8 | 12 - 20 | [facility] | | | ine Ratio | | | [facility] | | [...] + | [facility] | [address] | [place] | [phone] | | [facility] | | [address] | | | - LABORATORY | | | | + + + + + | [facility] | [address] | [place], [place] | | | [facility] | | [address] | | | - LABORATORY | | | | + + + + + FL Lumbar Puncture (12/24/2011 12:46 PM PST) + + | Specimen | + + | | + + + + + | Narrative | Performed At | + + + | [facility] Diagnostic Imaging Department | [facility] | | [address] [facility] | [facility] | | LUMBAR PUNCTURE FOR | DIAG IMG | | INTRATHECAL CHEMOTHERAPY ADMINISTRATION CLINICAL HISTORY: | | | LYMPHOMA PROCEDURE: Procedure of lumbar puncture is discussed | | | in detail with the patient , who seems to understand this well. | | | Written consent is obtained to proceed. A "timeout" is | | | performed to confirm patient identity and planned procedure. With | | | the patient in the prone position, fluoroscopy was utilized to | | | identify an entry point to the spinal canal at the L3 level. This | | | is marked on the skin which is then prepped in sterile fashion. | | | Lidocaine 1% is instilled in the skin and on the proposed path of | | | entry. A 22-gauge spinal needle is then atraumatically advanced | | | into the thecal sac. Crystal clear spinal fluid is obtained. At | | | this point, Dr. Renee who was in attendance, administers the | | | intrathecal chemotherapy. [place] are then withdrawn and the | | | procedure is terminated. IMPRESSION: 1. UNEVENTFUL LUMBAR | | | PUNCTURE FOR INTRATHECAL CHEMOTHERAPY ADMINISTRATION. Dictated | | | Date/Time: 12/25/2011 14:50 Transcribed Date/Time: 12/25/2011 | | | 15:33 Polishing Wheel Repairer: <Electronically Signed by Jorge Luis Merlos | | | MD Jarrett> 12/26/11 0936 | | + + + + + | Procedure Note | + + | Germain, Rad Conversion - 12/08/2013 4:48 PM [facility] | | Diagnostic Imaging Department | | [address] [facility] [place] | | | | | | | | | | LUMBAR PUNCTURE FOR INTRATHECAL CHEMOTHERAPY ADMINISTRATION | | | | CLINICAL HISTORY: LYMPHOMA | | | | PROCEDURE: Procedure of lumbar puncture is discussed in detail with the patient | | , who seems to understand this well. Written consent is obtained to proceed. | | | | A "timeout" is performed to confirm patient identity and planned procedure. | | | | With the patient in the prone position, fluoroscopy was utilized to identify an | | entry point to the spinal canal at the L3 level. This is marked on the skin | | which is then prepped in sterile fashion. Lidocaine 1% is instilled in the | | skin and on the proposed path of entry. A 22-gauge spinal needle is then | | atraumatically advanced into the thecal sac. Crystal clear spinal fluid is | | obtained. At this point, Dr. Renee who was in attendance, administers | | the intrathecal chemotherapy. [place] are then withdrawn and the procedure is | | terminated. | | | | IMPRESSION: | | 1. UNEVENTFUL LUMBAR PUNCTURE FOR INTRATHECAL CHEMOTHERAPY ADMINISTRATION. | | | | Dictated Date/Time: 12/25/2011 14:50 | | Transcribed Date/Time: 12/25/2011 15:33 | | Polishing Wheel Repairer: | | <Electronically Signed by Jorge Luis Farias MD> 12/26/11 0936 | + + + +---------+ + + [...]
--- OUTSIDE RECORDS SUMMARY | ~2019-09-11 | XMS | Encounter Summary ---
Demographics + + + | Address | [address] | | | [place] [address] | + + + | Home Phone | | + + + | Preferred Language | Unknown | + + + | Marital Status | | + + + | Anabaptist Affiliation | Unknown | + + + | Race | Unknown | + + + | Ethnic Group | Unknown | + + + Author + + + | Author | [facility] | | | and Hermannana | + + + | Organization | [facility] | | | and Hermannana [...] [place], [place] | | | | | [address] | | + + + + + | Greta Broncheau | ECON | [place], [place] | | | | | [address] | | + + + + + Care Team Providers + +------+ + | Care Debate Director Name | Role | Phone | [...] Cardiomyopat | ELLEN Albarran | [address] | | | | | hy (HCC) | [address] | [place], | | | | | Procedures | [address] | [place] | | | | | [place] Cardiac | [place], | [address] | | | | | MUGA Scan | [place] | Phone: | | | | | | [address] | [phone] | | | | | | Phone: | Fax: | | | | | | [phone] | [phone] | | | | | | Fax: | | | | | | | [phone] | | +--------+--------+ + + + + Encounter Details +--------+ + + + + | Date | Type | Department | Care Team | Description | +--------+ + + + + | 06/13/ | Hospital | [facility] | Lm, | Cardiomyopathy (HCC) | | 2012 | Encounter | MED CTR XRAY [address] | Avis, STEAM TURBINE ASSEMBLER [address] | | | | | [address] [place] | [address] [place], | | | | | [place] [address] | [place] [address] | | | | | [phone] | [phone] | | | | | | | [...] | /25/20 | | | (VITAMIN D3) 10176 | mouth Once a week. | | [...] Performed At | + + + | [facility] Diagnostic Imaging | [facility] | | Department [address] [place] [address] | [facility] | | [ [address] [ rep [facility] | | [facility]] Signed | - IMAGING | | | | | Patient Name: ZOFIA YOUNG Physician: | | | FREDIS : 1960 Age: 52 Sex: F Unit #: [id number] | | | Exam Date: 06/13/13 Location: [facility] | | | Report #: [id number] Page: | | | %(RAD)RES..mtdd.print.filter("pg") of %(RAD) | | | RES..mtdd.print.filter("tpg") | | | | | | Accession Number: [id number] | | | REST EQUILIBRIUM VENTRICULOGRAPHY/MARKER SCAN: [...] Transcribed | | | Date/Time: 06/13/2013 12:52 Explosive Ordnance Manager: | | | <<Signature on File>> | | | Suwong | | | MD Melani [facility] FAS06/14/13 0643 <Electronically signed by | | | Endy Polo MD, [facility], [facility], JOSE, KETTYLA> Endy | | | MD Melani [facility] JOSE 06/13/13 1225 Explosive Ordnance Manager: [employer]bs[employer] | | | [id number]/13/13 1252 ELLEN Rivera | | + + + + + + + + | Performing | Address | City/State/Zipcode | Phone Number | | Organization | | | | + + + + + | [facility] | [address] | [place] | [phone] | | [facility] | | [address] | | | - IMAGING | | | | + + + + + documented in this encounter Visit Diagnoses + + | Diagnosis | + + | Cardiomyopathy (HCC) Other primary cardiomyopathies | + + documented in this encounter
--- OUTSIDE RECORDS SUMMARY | ~2019-09-11 | XMS | Encounter Summary ---
Demographics + + + | Address | [address] | | | [place] [address] | + + + | Home Phone [...] + + | Author | [facility] | | | and Hermannana | + + + | Organization | [facility] | | | and Hermannana | + + + | Address | Unknown | + + + | Phone | Unavailable | + + + Support + + + + + | Name | Relationship | Address | Phone | + + + + + | Yue Fischer | JESE | [address] | | | | | [place], [place] | | | | | [address] | | + + + + + | Greta Broncheau | ECON | [place], [place] | | | | | [address] | | + + + + + Care Team Providers + +------+ + | Care Prevention Rn Name | Role | Phone | + +------+ + | Becky Jennings | PCP | | + +------+ + Reason for Visit + + + | Reason | Comments | + + + | Follow-up | SHAHIDA 06/13/13, Four month | + + + | Cardiomyopathy | | + + + Evaluate & Treat (Routine) +--------+--------+ + + + + | Status | Reason | Specialty | Diagnoses / | Referred By | Referred To | | | | | Procedures | Contact | Contact | +--------+--------+ + + + + | Closed | | Cardiology | Diagnoses | [place], | [place], | | | | | Chest pain, | Becky T, [employer] SUPERVISOR | ELLEN Albarran | | | | | unspecified | [address] | [address] | | | | | Procedures | [address] [place] | [place] | | | | | NE OFFICE | [place], [place] | [place], [place] | | | | | OUTPATIENT | [id number] | [address] | | | | | VISIT 25 | Phone: | Phone: | | | | | MINUTES | [phone] | [phone] | | | | | | Fax: | Fax: | | | | | | [phone] | [phone] | +--------+--------+ + + + + Encounter Details +--------+---------+ + + + | Date | Type | Department | Care Team | Description | +--------+---------+ + + + | 07/04/ | Office | [facility] | Lm, | Nonischemic/ | | 2012 | Visit | CARDIOLOGY [address] | ELLEN Albarran [address] | chemotherapy induced | | | | [place], | [place], | cardiomyopathy | | | | [place] [address] | [place] [address] | (Primary Dx); Chest | | | | [phone] | [phone] | pain | | | | | | | +--------+---------+ + + + [...] + + + | Blood Pressure | 100/62 | 07/04/2013 1:33 PM | Left | | | | PDT | | + + + + + | Pulse | 68 | 07/04/2013 1:33 PM | Regular | | | | PDT | | + + + + + | Temperature | - | - | | + + + + + | Respiratory Rate | 22 | 07/04/2013 1:33 PM | | | | | PDT | | + + + + + | Oxygen Saturation | - | - | | + + + + + | Inhaled Oxygen | - | - | | | Concentration | | | | + + + + + | Weight | 100.2 kg (221 lb) | 07/04/2013 1:33 PM | | | | | PDT | | + + + + + | Height | 162.6 cm (5' 4") | 07/04/2013 1:33 PM | | | | | PDT | | + + + + + | Body Mass Index | 37.93 | 07/04/2013 1:33 PM | | | | | PDT | | + + + + + documented in this encounter Progress Notes Avis Ma ARNP - 07/04/2013 2:35 PM PDTFormatting of this note might be different f rom the original. Subjective: Cardiology Office Visit Date of Service: 07/04/2013 Patient ID: Frida Christian is a 52 y.o. female. PCP: Becky ALCOCER Frida Christian is a 52 y.o. female with a history of non-ischemic, suspecting chemotherapy-i nduced cardiomyopathy, Burkitt's lymphoma, vancomycin-induced nephropathy. She is being see n today for follow up on test results and cardiomyopathy. She was last seen 02/15/2013 at which time her carvedilol was stopped due to "incredible di arrhea" and she was initiated on metoprolol and Muga scan was ordered to evaluate cardiac fu nction since her previous echocardiogram was nonconclusive due to artifact. Since that time , patient complaints of not being able to tolerate metoprolol due to fatigue. She states th at the pill makes her so tired that she doesn't feel like doing anything at all. She would like to stop taking it at this time. She denies any chest pain, chest pressure or increase shortness of breath at rest or on exertion. She denies any palpitations, lightheadedness, d izziness or leg swelling. Patient Active Problem List Diagnosis DYSFUNCTION OF EUSTACHIAN TUBE SENSORINEURAL HEARING LOSS BILATERAL Chest pain BURKITT'S LYMPHOMA Nonischemic/ chemotherapy induced cardiomyopathy Current Outpatient Prescriptions Medication Status Sig Dispense Refill azithromycin (ZITHROMAX) 250 mg tablet Active Take 250 mg by mouth Daily. Take 2 tablet s by mouth on day 1 the 1 tablet on days 2-5 Cholecalciferol (VITAMIN D3) 44465 UNITS CAPS Active Take 50,000 Units by mouth Once a week. dextromethorphan (DELSYM) 30 MG/5ML liquid Active Take 60 mg by mouth 2 times daily. Diphenoxylate-Atropine (LOMOTIL PO) Active TABS; One tablet as directed when needed fo r diarrhea fluticasone (FLOVENT HFA) 110 mcg/puff inhaler Active Inhale 1 puff into the lungs 2 ti mes daily. HYDROcodone-acetaminophen (NORCO) 5-325 mg per tablet Active Take 2 tablets by mouth ev ayaan 6 hours as needed. levofloxacin (LEVAQUIN) 500 mg tablet Active Take 500 mg by mouth Daily. lisinopril (PRINIVIL, ZESTRIL) 10 mg tablet Active Take 10 mg by mouth Daily. metoprolol succinate (TOPROL-XL) 25 mg 24 hr tablet Active Take 1 tablet by mouth Daily . 30 tablet 6 Multiple Vitamins-Minerals (ADULT MULTIVITAMIN WITH MINERALS/IRON) TABS Active Take 1 t ablet by mouth Daily. OMEGA 3 1000 MG CAPS Active Take 1,000 capsules by mouth Daily. omeprazole (PRILOSEC) 20 mg capsule Active Take 20 mg by mouth Daily. predniSONE (DELTASONE) 50 mg tablet Active Take 50 mg by mouth Daily. Senna TABS Active One - two tablets by mouth daily as needed Allergies Allergen Reactions Vancomycin Review of Systems Constitutional: Positive for fatigue. Negative for unexpected weight change. Respiratory: Negative for chest tightness and shortness of breath. Cardiovascular: Negative for chest pain, palpitations and leg swelling. Gastrointestinal: Negative for abdominal pain. Neurological: Negative for dizziness, syncope and light-headedness. Objective: Physical Exam Constitutional: She is oriented [...] and time. Gait normal. Skin: Skin is warm, dry and intact. No cyanosis. Nails show no clubbing. Psychiatric: Her mood appears not anxious. She does not exhibit a depressed mood. BP 100/62 | Pulse 68 | Resp 22 | Ht 1.626 m (5' 4") | Wt 100.245 kg (221 lb) | BMI 37.93 kg /m2 ECG: Not done this visit. LAB: not applicable Reviewed records from PCP and Muga scan results. Assessment: 1. Nonischemic/chemotherapy-induced cardiomyopathy: A. Echocardiogram from 03/08/2012 shows anterior, anteroseptal hypokinesis. LVEF 50%, mi ld AI, mild MR. B. Normal SPECT MPI on 03/18/2012, LVEF of 50%. C. Echocardiogram done on 02/15/2013 was inconclusive due to to inability to obtain adequa te echocardiography images. In consultation with six pack packer reading the exam, LVEF is est imated to be normal but it's a nonconclusive study due to the poor imaging, that might be re lated with patient's breast tissue. MUGA test is recommended to be able to evaluate ventric ular function. D.MUGA scan done on 06/13/2013 shows a normal left ventricular size, wall thickness and mo tion. Preserved left ventricular systolic function and LVEF is 62%. Normal right ventricul ar size, wall thickness and motion. RV EF is 52%. E. Today, patient is doing well from cardiac standpoint. She remains asymptomatic and fun ctional. Her only complaint is a side effect of fatigue from the metoprolol and she would l helen to get off this medication. Patient is in class I of the [place] [employer] fun ctional class. There is no fluid retention on physical exam. There are no signs or symptom s of overt congestive heart failure. Patient would like to get off the medication and stopp ed taking beta ryann. At this point, her ejection fraction seemed to be normalized. 2. Burkitt lymphoma: On remission, under follow up by Dr. Renee. 3. Vancomycin-induced nephropathy. Plan: 1. Discontinue metoprolol at this time due to the patient's preference 2. Follow up appointment in one year or sooner if any concerns IAvis ARNP, saw this patient under the direct supervision of Endy Polo MD Portions of this report were transcribed using voice recognition software. Every effort wa s made to ensure accuracy; however, inadvertent computerized molding sander errors may be pre sent. 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
--- OUTSIDE RECORDS SUMMARY | ~2019-09-11 | XMS | Encounter Summary ---
Demographics + + + | Address | [address] | | | [place] [address] | + + + | Home Phone | | + + + | Preferred Language | Unknown | + + + | Marital Status | | + + + | Synagogue Affiliation | Unknown | + + + | Race | Unknown | + + + | Ethnic Group | Unknown | + + + Author + + + | Author | [facility] | | | and Hermannana | + + + | Organization | [facility] | [...] [place], [place] | | | | | [address] | | + + + + + | Greta Broncheau | ECON | [place], [place] | | | | | [address] | | + + + + + Care Team Providers + +------+ + | Care Oil Field Rig Builder Name | Role | Phone | + +------+ + PCP | Unavailable | + +------+ + Encounter Details +--------+ + + + + | Date | Type | Department | Care Team | Description | +--------+ + + + + | 12/24/ | Hospital | [facility] | [place], | | | 2011 - | Encounter | MED CTR CANCER | Antonio Infante MD [address] | | | | | [place] [address] | [place] | | | / | | [place], [place] | [place] [address] | | | 2011 | | [address] | [phone] | | | | | [phone] | | | +--------+ + + + [...] this encounter Progress Antonio Collier MD - 12/05/2011 4:12 AM PST PROGRESS NOTE: December 07, 2011 PATIENT IDENTIFICATION: Frida Christian IDENTIFYING STATEMENT: Frida Christian is a 51-year-old woman from [place], [place], with Burkitt's lymphoma. ACTIVE DIAGNOSES: 1. Presentation in August 2001, with intractable searing abdominal pain. Symptoms prog ressed and on October 05, 2011, she underwent advanced imaging that demonstrated diffuse ma lignant lymphadenopathy throughout the retroperitoneum. 2. Laparoscopic lymph node biops y on November 10, 2011, at [facility], demonstrated a high grade B cell lymphoma, consistent with Burkitt's lymphoma, positive for BCL6, CD10, CD19, CD20, CD22, and kappa light chains. 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 3. Initiation of Rituxan/Hyper-CVAD chemotherapy at [facility] on November 15, 2011. CHIEF COMPLAINT: Frida is referred to me by Dr. Dylan Wheatley of [facility], cycle #1b, day #6 of Rituxan/H yper-CVAD [...] PSYCHOSICAL HISTORY:She lives alone and independently in [place], [place]. HABITS: Tobacco - positive for tobacco [...] her treatment plan today. [facility] on December 24, 2011, for cycle #2a, of Rituxan/Hyper-CVAD chemotherapy, along wit h prophylactic intrathecal methotrexate. PROCEDURE:She received 6 mg of subcutaneous Neulasta without adverse effects. CC: [facility] <Electronically Signed by Antonio Renee MD> 12/14/11 5923 documented in this encounter Plan of Treatment [...] | 12.0 | 6.0 - 17.0 | [facility] | [...] [address] | [place] | [phone] | | [facility] | | [address] | | | - LABORATORY | | | | + + + + + | [facility] | [address] | [place] | | | [facility] | | [address] | | | - LABORATORY | | | | + + + + + Lactate Dehydrogenase (12/24/2011 9:01 AM PST) + +---------+ + + + | Component | Value | Ref Range | Performed | Pathologist | | | | | At | Signature | + +---------+ + + + | LDH TOTAL | 255 (H) | 91 - 180 IU/L | [facility] [...] + | [facility] | [address] | [place], [place] | [phone] | | [facility] | | [address] | | | - LABORATORY | | | | + + + + + | [facility] | [address] | [place], [place] | | | [facility] | | [address] | | | - LABORATORY | | | | + + + + + CBC with Differential (12/24/2011 9:01 AM PST) + + + + + + | Component | Value | Ref Range | Performed | Pathologist | | | | | At | Signature | + + + + + + | WBC | 13.6 (H) | 4.0 - 11.0 K/uL | [facility] | [facility] | | | | | | [facility] | | | | | | C[facility] - | | | | | | LABORATORY | | + + + + + + | RBC | 3.50 (L) | 3.70 - 5.20 [...] + | [facility] | [address] | [place], [place] | [phone] | | [facility] | | [address] | | | - LABORATORY | | | | + + + + + | [facility] | [address] | [place], [place] | | | [facility] | | [address] | | | - LABORATORY | | | | + + + + + Comprehensive Metabolic Panel (12/07/2011 11:17 AM PST) + + + + + + | Component | Value | Ref Range | Performed | Pathologist | | | | | At | Signature | + + + + + + | Glucose | 97 | 70 - 109 mg/dL | [facility] [...] 0.49 (L) | 0.60 - 1.30 | [facility] [...] | ine Ratio | | | [facility] | | | | | | MEDICAL [...] | 11.0 | 6.0 - 17.0 | [facility] | [...] [address] | [place] | [phone] | | [facility] | | [address] | | | - LABORATORY | | | | + + + + + | [facility] | [address] | [place] | | | [facility] | | [address] | | | - LABORATORY | | | | + + + + + Lactate Dehydrogenase (12/07/2011 11:17 AM PST) + +---------+ + + + | Component | Value | Ref Range | Performed | Pathologist | | | | | At | Signature | + +---------+ + + + | LDH TOTAL | 213 (H) | 91 - 180 IU/L | [facility] | | | | | | [facility] [...] + | [facility] | [address] | [place], [place] | [phone] | | [facility] | | [address] | | | - LABORATORY | | | | + + + + + | [facility] | [address] | [place], [place] | | | [facility] | | [address] | | | - LABORATORY | | | | + + + + + CBC with Differential (12/07/2011 11:17 AM PST) + + + + + + | Component | Value | Ref Range | Performed | Pathologist | | | | | At | Signature | + + + + + + | WBC | 2.4 (LL) | 4.0 - 11.0 K/uL | [facility] | | | [facility] | | | | | | MEDICAL | | | | | | CENTER - | | | | | | LABORATORY | | + + + + + + | RBC | 3.18 (L) | 3.70 - 5.20 [...] + + | Performing | Address | City[facility] | Phone Number | | Organization | | | | + + + + + | [facility] | [address] | [place], [place] | [phone] | | [facility] | | [address] | | | - LABORATORY | | | | + + + + + | [facility] | [address] | [place], [place] | | | [facility] | | [address] | | | - LABORATORY | | | | + + + + + documented in this encounter Visit Diagnoses Not on filedocumented in this encounter"
--- OUTSIDE RECORDS SUMMARY | ~2019-09-11 | XMS | Encounter Summary ---
Demographics + + + | Address | [address] | | | [place] [address] | + + + | Home Phone | | + + + | Preferred Language | Unknown | + + + | Marital Status | | + + + | Baptist Affiliation | Unknown | + + + | Race | Unknown | + + + | Ethnic Group | Unknown | + + + Author + + + | Author | [facility] | | | and Hermannana | + + + | Organization | [facility] | | | and Hermannana [...] [place], [place] | | | | | [address] | | + + + + + | [place]ta [place] | ECON | [place], [place] | | | | | [address] | | + + + + + Care Team Providers + +------+ + | Care Drain Technician Name | Role | Phone | + +------+ + | Becky Jennings | PCP | | + +------+ + Encounter Details +--------+ + + + + | Date | Type | Department | Care Team | Description | +--------+ + + + + | 05/08/ | Hospital | [facility] | Lm, | | | 2013 | Encounter | MED CTR XRAY [address] | Avis, TECHNOLOGY COORDINATOR [address] | | | | | [place] | [place], | | | | | [place] [address] | [place] [address] | | | | | [phone] | [phone] | | | | | | | [...] | 03/25/20 | | | (VITAMIN D3) [address] | mouth Once a week. | | [...]
--- OUTSIDE RECORDS SUMMARY | ~2019-09-11 | XMS | Encounter Summary ---
Demographics + + + | Address | [address] | | | [place] [address] | + + + | Home Phone [...] + | Author | [facility] | | | and Hermannana | + + + | Organization | [facility] | | | and [...] [place], [place] | | | | | [address] | | + + + + + | Greta Broncheau | ECON | [place], [place] | | | | | [address] | | + + + + + Care Team Providers + +------+ + | Care Certified Dietary Manager Name | Role | Phone | + +------+ + PCP | Unavailable | + +------+ + Encounter Details +--------+ + + + + | Date | Type | Department | Care Team | Description | +--------+ + + + + | 02/24/ | Hospital | [facility] | Thelma, | | | 2011 - | Encounter | MED CTR CANC[facility] | Antonio Infante MD [address] | | | | [facility] [address] | [place] | | | 02/28/ | | [place], [place] | [place] [address] | | | 2011 | | [address] | [phone] | | | | | [phone] | | | +--------+ + + + [...] this encounter Progress Antonio Collier MD - 01/31/2012 3:45 AM PDTPROGRESS NOTE: 02/25/2012 IDENTIFYING STATEMENT: Frida Christian is a 51-year-old woman from [place], [place], with Burkitt's lymphoma. ACTIVE DIAGNOSES: 1. Presentation in August 2001, with intractable searing abdominal pain. Symptoms progre ssed and on October 05, 2011, she underwent advanced imaging that demonstrated diffuse malignant lymphadenopathy throughout the retroperitoneum. 2. Laparoscopic lymph node biopsy on November 10, 2011, at [facility], demonstrated a high grade B cell lymphoma, consistent with Burkitt's lymphoma, positive for BCL6, CD10, CD19, CD20, CD2 2, and kappa light chains. Ignacio-Palmer virus was positive by in situ hybridization, KI 67 f raction was greater than 90%. 3. Initiation of Rituxan/Hyper-CVAD chemotherapy at [facility] on November 15, 2011. CHIEF COMPLAINT: Frida Christian [facility] on February 25, 2012, at cycle no. 2B, day no. 43 of Rituxan/hyper-CVAD chemotherapy. REVIEW OF SYSTEMS: CONSTITUTIONAL: Positive for anorexia. Positive for fatigue. Positive for nausea. Posi tive for emesis without weight loss, high fever, chills, or night sweats. EAR, NOSE, MOUTH , THROAT: Denies odynophagia, dysphagia, or tinnitus. CARDIOVASCULAR: Positive for dyspne a on exertion. Denies shortness of breath, chest pain, palpitations, or orthopnea. RESPIRATORY: Denies cough, hemoptysis, or sputum production. GASTROINTESTINAL: Denies ab dominal pain, constipation, diarrhea, melena, or bright red blood per rectum. GENITOURINARY: Denies hematuria or dysuria. MUSCULOSKELETAL: Denies joint pain and tenderness. NEUROLOGIC: Denies headache, visual changes, or numbness/tingling of the extremities. END OCRINE: Denies peripheral edema or heat/cold intolerance. HEMATOLOGIC: Denies spontaneous bruising or bleeding. PAST MEDICAL HISTORY, FAMILY HISTORY, SOCIAL HISTORY, HABITS: Please see the full dictate d note dated December 07, 2011, which is reviewed and unchanged. CURRENT MEDICATIONS: Acyclovir 400 mg orally once daily Norvasc 10 mg orally once daily Lomotil as needed for diarrhea Marinol 5 mg orally three times daily Vitamin D 50,000 units orally every week Ativan one milligram as needed for nausea Prilosec 20 mg orally daily OxyContin 20 mg orally twice daily MiraLAX 17 g orally as needed Compazine 5-10 mg as needed Senna 1-2 tablets as needed ALLERGIES: No known drug allergies. 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 PHYSICAL EXAMINATION: Blood pressure is 136/85, pulse 93, temperature 36.6 degrees Celsiu s. Oxygen saturation is 94% on room air. Weight is 77.8 kg. Karnofsky Performance Status is 70%. EYES: Conjunctivae clear. Sclerae anicteric. ENMT: Oropharynx free of lesions, mucous membranes moist. CARDIOVASCULAR: Regular rate and rhythm. Normal S1 and S2 without murmur, gallop, or rub . LUNGS: Good air movement bilaterally. No rhonchi, wheeze, or rales. CHEST: Left anterior chest Port-A-Cath was accessed with a Silver needle and brisk blood r eturn was documented. It was then flushed with 20 cc of normal saline followed by 5 cc of 100 unit/ml heparin. ABDOMEN: Soft, nontender, nondistended, with normoactive bowel sounds. No hepatomegaly. No splenomegaly. No palpable masses. No ascites. LYMPH NODES: No cervical, supraclavicular, axillary, or inguinal lymphadenopathy. MUSCULOSKELETAL: No joint tenderness or swelling. SKIN: No petechiae, ecchymoses, or rash. EXTREMITIES: No cyanosis, clubbing, or edema. NEUROLOGIC: Alert and oriented times three. Face symmetric. Voice articulate. Station and gait within normal limits. STUDIES: Hemoglobin is 11.8, hematocrit 34.8%, platelet count 276,000, white count 10,400 . Comprehensive metabolic panel is notable for ongoing improvement in renal insufficiency. BUN is 16, creatinine 1.64. Alkaline phosphatase is elevated at 119 with upper limit of normal 110. LDH is 240 with upper limit of normal 180. ASSESSMENT: 1. Burkitt's lymphoma. 2. Renal insufficiency following cycle no. 2B of Rituxan/hyper-CVAD chemotherapy. PLAN: Continue with observation. Frida will have a formal audiology examination. She will also have a repeat cardiac assessment with echocardiogram. She will then return to [facility] to review the results of her studies and to repeat her evaluation on March 15, 2012. If her renal failure has resolved and her cardiac function is adequate, we will consider cros sing over and continuing with her Rituxan/hyper-CVAD chemotherapy with cycle no. 3A of her treatment plan, including intrathecal. However, if there is ongoing cardiac dysfunction or renal dysfunction or if there is progressive elevation of LDH, we will postpone additional treatment for further evaluation. CC: [facility] <Electronically Signed by Antonio Renee MD> 03/01/12 1603 Antonio Renee MD - 01/31/2012 3:45 AM PDTPROGRESS NOTE: 02/23/2012 IDENTIFYING STATEMENT: Frida Christian is a 51-year-old woman from [place], [place], with Burkitt's lymphoma. ACTIVE DIAGNOSES: 1. Presentation in August 2001, with intractable searing abdominal pain. Symptoms progre ssed and on October 05, 2011, she underwent advanced imaging that demonstrated diffuse malignant lymphadenopathy throughout the retroperitoneum. 2. Laparoscopic lymph node biopsy on November 10, 2011, at [facility], demonstrated a high grade B cell lymphoma, consistent with Burkitt's lymphoma, positive for BCL6, CD10, CD19, CD20, CD2 2, and kappa light chains. Ignacio-Palmer virus was positive by in situ hybridization, KI 67 f raction was greater than 90%. 3. Initiation of Rituxan/Hyper-CVAD chemotherapy at [facility] on November 15, 2011. CHIEF COMPLAINT: Frida Christian returned to the Cancer Center on February 23, 2012, at cycle no. 2B, day no. 41 of Rituxan/hyper-CVAD chemotherapy. INTERVAL HISTORY: Frida developed acute tubular necrosis and non-oliguric renal failure on day no. 26 of cycle no. 2B and this is currently being ascribed to vancomycin toxicity. She was emergently transferred to the [facility], where treatment was supportive only. Cycle no. 2B was also complicated by a prolonged neutropenic fever an d bilateral pneumonia, although no organism was identified. REVIEW OF SYSTEMS: CONSTITUTIONAL: Positive for fatigue. Positive for nausea. Denies emesis. Positive for anorexia and weight loss. Denies high fever, chills, or night sweats. EAR, NOSE, MOUTH, T HROAT: She developed hearing loss after cycle no. 2B and providers at [facility] are also ascrib ing this to her vancomycin toxicity. CARDIOVASCULAR: Positive for dyspnea on exertion. De nies shortness of breath, chest pain, palpitations, or orthopnea. RESPIRATORY: Denies cough, hemoptysis, or sputum production. GASTROINTESTINAL: Positive for diarrhea. Denies abdominal pain, constipation, melena, or bright red blood per rectum. GENITOURINARY: Denies hematuria or dysuria. MUSCULOSKELETAL: She still complains of pain over her Port-A-Cath. She is also having low er extremity pain. NEUROLOGIC: Denies headache, visual changes, or numbness/tingling of the extremities. END OCRINE: Denies peripheral edema or heat/cold intolerance. HEMATOLOGIC: Denies spontaneous bruising or bleeding. PAST MEDICAL HISTORY, FAMILY HISTORY, SOCIAL HISTORY, HABITS: Please see the full dictate d note dated December 07, 2011, which is reviewed and unchanged. CURRENT MEDICATIONS: Acyclovir 400 mg orally once daily Norvasc 10 mg orally once daily Lomotil as needed for diarrhea Marinol 5 mg orally three times daily Vitamin D 50,000 units orally every week Ativan one milligram as needed for nausea Prilosec 20 mg orally daily OxyContin 20 mg orally twice daily MiraLAX 17 g orally as needed Compazine 5-10 mg as needed Senna 1-2 tablets as needed ALLERGIES: No known drug allergies. 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 PHYSICAL EXAMINATION: Blood pressure is 140/85, pulse 92, temperature 36.9 degrees Celsiu s. Oxygen saturation is 93% on room air. Weight is 80.8 kg. This is down 1.3 kg. EYES: Conjunctivae clear. Sclerae anicteric. ENMT: Oropharynx free of lesions, mucous membranes moist. CARDIOVASCULAR: Regular rate and rhythm. Normal S1 and S2 without murmur, gallop, or rub . LUNGS: Good air movement bilaterally. No rhonchi, wheeze, or rales. CHEST: Left anterior chest Port-A-Cath was accessed with a Silver needle and brisk blood r eturn was documented. It was flushed with 20 cc of normal saline followed by 5 cc of 100 u nit/ml heparin. ABDOMEN: Soft, nontender, nondistended, with normoactive bowel sounds. No hepatomegaly. No splenomegaly. No palpable masses. No ascites. LYMPH NODES: No cervical, supraclavicular, axillary, or inguinal lymphadenopathy. MUSCULOSKELETAL: No joint tenderness or swelling. SKIN: No petechiae, ecchymoses, or rash. EXTREMITIES: Lower extremity edema has improved substantially since her hospitalization [facility] [place]. NEUROLOGIC: Alert and oriented times three. Face symmetric. Voice articulate. Station and gait within normal limits. STUDIES: Hemoglobin is 11.4, hematocrit 33.4%, platelet count 300,000, white count 9500. Comprehensive metabolic panel is notable for BUN of 21 with creatinine of 2.05. Estimated glomerular filtration rate is 25 ml/minute. Potassium is normal at 3.8. Alkaline phospha tase is 112 with upper limit of normal 110. LDH is 230 with upper limit of normal 110. Th is probably is related to hematopoietic recovery. ASSESSMENT: Burkitt's lymphoma. Status post four cycles of Rituxan/hyper-CVAD chemothera py complicated by hearing loss and renal failure due to vancomycin toxicity. PLAN: 49 pages of documentation from Frida's admission the [facility] are reviewed: 1. Vancomycin-induced renal toxicity. Frida will be observed. She will return to the clinic in two days for repeat electrolyte and creatinine assessment. 2. Ototoxicity, also potentially related to exposure to supra-therapeutic doses of vancomycin. Frida's ear examination is notable for the fact that there is no impacted cerumen bilaterally to account for hearing loss. At the request of Dr. Vance San, she will be referred to an audio logist to quantify the degree of hearing loss that may have been caused by her vancomycin exposure. 3. Cancer. Notes from [facility] are reviewed. The plan for cancer management is uncertain. She received a dose of Rituxan single infusion during her hospitalization at [facility]. It is uncertain whether or not this represents a cycle of her induction chemotherapy or if this was a mainten ance strategy. This was not specifically delineated in the 49 pages of documentation from [facility]. I trino renee Frida my own opinion that any further chemotherapy should be suspended until there has been complete resolution of her renal insufficiency. In addition, she needs a comprehensive cardia c re-evaluation to assess for any chemotherapy-induced cardiomyopathy before proceeding. Also, given th e degree of myelosuppression that Frida has suffered under her chemotherapy program, strong con sideration can be given to discontinuing further cytotoxic chemotherapy and crossing over to obs ervation. She has not had a comprehensive restaging of her lymphoma and this may also be warranted at this time, especially if we are considering crossing over to observation without treatment. Thi s will all be addressed with Frida when she returns to the clinic in two days for ongoing managem ent of her renal insufficiency. CC: [facility] Dr. Dylan Martinez, [facility] <Electronically Signed by Antonio Renee MD> 02/25/12 1119 documented in this encounter Plan of Treatment Not on filedocumented as of this encounter Procedures + +--------+ + + + | Procedure Name | Priori | Date/Time | Associated Diagnosis | Comments | | | ty | | | | + +--------+ + + + | CBC WITH | Routin | 02/25/2012 | | Results for this | | DIFFERENTIAL | e | 12:42 PM | | procedure are in the | | | | PDT | | results section. | + +--------+ + + + | LACTATE | Routin | 02/25/2012 | | Results for this | | DEHYDROGENASE | e | 12:42 PM | | procedure are in the | | | | PDT | | results section. | + +--------+ + + + | COMPREHENSIVE | Routin | 02/25/2012 | | Results for this | | METABOLIC PANEL | e | 12:42 PM | | procedure are in the | | | | PDT | | results section. | + +--------+ + + + | CBC WITH | Routin | 02/23/2012 | | Results for this | | DIFFERENTIAL | e | 2:54 PM | | procedure are in the | | | | PDT | | results section. | + +--------+ + + + | LACTATE | Routin | 02/23/2012 | | Results for this | | DEHYDROGENASE | e | 2:54 PM | | procedure are in the | | | | PDT | | results section. | + +--------+ + + + | COMPREHENSIVE | Routin | 02/23/2012 | | Results for this | | METABOLIC PANEL | e | 2:54 PM | | procedure are in the | | | | PDT | | results section. | + +--------+ + + + documented in this encounter Results Comprehensive Metabolic Panel (02/25/2012 12:42 PM PDT) + + + + + + | Component | Value | Ref Range | Performed | Pathologist | | | | | At | Signature | + + + + + + | Glucose | 124 (H) | 70 - 109 mg/dL | [...] + + + + | Albumin | 3.7 | 3.2 - 5.0 gm/dL | [facility] [...] + + + + | Creatinine | 1.64 (H) | 0.60 - 1.30 | [facility] | | | | | mg/dL | [facility] | | | | | [facility] | | | | | | C[facility] - | | | | | | LABORATORY | | + + + + + + | Estimated | 33 (L)Comment: For | >60 mL/min/A | [facility] [...] + + + + | BUN/Creatin | 9.8 (L) | 12 - 20 | [facility] [...] + + + | Anion Gap | 15.3 | 6.0 - 17.0 | [facility] | [...] [address] | [place] | [phone] | | [facility] | | [address] | | | - LABORATORY | | | | + + + + + | [facility] | [address] | [place] | | | [facility] | | [address] | | | - LABORATORY | | | | + + + + + Lactate Dehydrogenase (02/25/2012 12:42 PM PDT) + +---------+ + + + | Component | Value | Ref Range | Performed | Pathologist | | | | | At | Signature | + +---------+ + + + | LDH TOTAL | 240 (H) | 91 - 180 IU/L | [...] | [address] | [place], [place] | [phone] | | [facility] | | [address] | | | - LABORATORY | | | | + + + + + | [facility] | [address] | [place], [place] | | | [facility] | | [address] | | | - LABORATORY | | | | + + + + + CBC with Differential (02/25/2012 12:42 PM PDT) + + + + + + | Component | Value | Ref Range | Performed | Pathologist | | | | | At | Signature | + + + + + + | WBC | 10.4 | 4.0 - 11.0 K/uL | [facility] | | | | [facility] | | | | | [facility] | | | | | | C[facility] - | | | | | | LABORATORY | | + + + + + + | RBC | 3.76 | 3.70 - 5.20 | [facility] | | | | | M/uL | [facility] | | | | | | MEDICAL | | | | | | CENTER - | | | | | | LABORATORY | | + + + + + + | Hemoglobin | 11.8 | 11.5 - 16.0 | [facility] | | | | | gm/dL | [facility] | | | | | | [facility]ICAL | | | | | | CENTER - | | | | | | LABORATORY | | + + + + + + | Hematocrit | 34.8 | 34.0 - 47.0 % | [facility] | | | | | | [facility] | | | | | | [facility]ICAL | | | | | | CENTER - | | | | | | LABORATORY | | + + + + + + | MCV | 92.6 | 83.0 - 101.0 fL | [facility] [...] + + + + | Platelet | 276 | 140 - 440 K/uL | [facility] | | | Count | | | [facility] | | | | | | MEDICAL | | | | | | CENTER - | | | | | | LABORATORY | | + + + + + + | % | 62.3 | 45 - 75 % | [facility] | | | Neutrophils | | | [facility] | | | | | | MEDICAL | | | | | | CENTER - | | | | | | LABORATORY | | + + + + + + | % | 20.7 | 20 - 45 % | [facility] | | | Lymphocytes | | | [facility] | | | | | | MEDICAL | | | | | | CENTER - | | | | | | LABORATORY | | + + + + + + | % Monocytes | 14.3 (H) | 4 - 12 % | [facility] | | | | | | [facility] | | | | | | MEDICAL | | | | | | CENTER - | | | | | | LABORATORY | | + + + + + + | % | 1.4 | 0 - 5 % | [facility] | | | Eosinophils | | | [facility] | | | | | | MEDICAL | | | | | | CENTER - | | | | | | LABORATORY | | + + + + + + | % Basophils | 1.3 (H) | 0 - 1 % | [facility] | | | | | | [facility] | | | | | | MEDICAL | | | | | | CENTER - | | | | | | LABORATORY | | + + + + + + | Absolute | 6.5 | 1.5 - 6.6 K/uL | [facility] [...] + + + | Absolute | 1.5 (H) | 0.0 - 1.0 K/uL | [...] | [address] | [place] | [phone] | | [facility] | | [address] | | | - LABORATORY | | | | + + + + + | [facility] | [address] | [place] | | | [facility] | | [address] | | | - LABORATORY | | | | + + + + + Comprehensive Metabolic Panel (02/23/2012 2:54 PM PDT) + + + + + + | Component | Value | Ref Range | Performed | Pathologist | | | | | At | Signature | + + + + + + | Glucose | 103 | 70 - 109 mg/dL | [facility] [...] + + + + | Alkaline | 112 (H) | 40 - 110 IU/L | [...] + + + + | BUN | 21 (H) | 7 - 18 mg/dL | [facility] | | | | | | [facility] | | | | | | MEDICAL | | | | | | CENTER - | | | | | | LABORATORY | | + + + + + + | Creatinine | 2.05 (H) | 0.60 - 1.30 | [facility] | | | | | mg/dL | [facility] | | | | | | MEDICAL | | | | | | CENTER - | | | | | | LABORATORY | | + + + + + + | Estimated | 25 (L)Comment: For | >60 mL/min/A | [facility] [...] + + + | Anion Gap | 14.8 | 6.0 - 17.0 | [facility] | | | | | [...] [address] | [place] | [phone] | | [facility] | | [address] | | | - LABORATORY | | | | + + + + + | [facility] | [address] | [place] | | | [facility] | | [address] | | | - LABORATORY | | | | + + + + + Lactate Dehydrogenase (02/23/2012 2:54 PM PDT) + +---------+ + + + | Component | Value | Ref Range | Performed | Pathologist | | | | | At | Signature | + +---------+ + + + | LDH TOTAL | 230 (H) | 91 - 180 IU/L | [...] | [address] | [place] | [phone] | | [facility] | | [address] | | | - LABORATORY | | | | + + + + + | [facility] | [address] | [place] | | | [facility] | | [address] | | | - LABORATORY | | | | + + + + + CBC with Differential (02/23/2012 2:54 PM PDT) + + + + + + | Component | Value | Ref Range | Performed | Pathologist | | | | | At | Signature | + + + + + + | WBC | 9.5 | 4.0 - 11.0 K/uL | [facility] | | | | | | [facility] | | | | | | [facility]ICAL | | | | | | CENTER - | | | | | | LABORATORY | | + + + + + + | RBC | 3.62 (L) | 3.70 - 5.20 | [facility] | | | | | M/uL | [facility] | | | | | | MEDICAL | | | | | | CENTER - | | | | | | LABORATORY | | + + + + + + | Hemoglobin | 11.4 (L) | 11.5 - 16.0 | [facility] | | | | | gm/dL | [facility] | | | | | | MEDICAL | | | | | | CENTER - | | | | | | LABORATORY | | + + + + + + | Hematocrit | 33.4 (L) | 34.0 - 47.0 % | [facility] | | | | | | [facility] | | | | | | MEDICAL | | | | | | CENTER - | | | | | | LABORATORY | | + + + + + + | MCV | 92.2 | 83.0 - 101.0 fL | [facility] [...] + + + + | Platelet | 300 | 140 - 440 K/uL | [facility] | | | Count | | | [facility] | | | | | | MEDICAL | | | | | | CENTER - | | | | | | LABORATORY | | + + + + + + | % | 67.3 | 45 - 75 % | [facility] | | | Neutrophils | | | [facility] | | | | | | MEDICAL | | | | | | CENTER - | | | | | | LABORATORY | | + + + + + + | % | 14.5 (L) | 20 - 45 % | [facility] | | | Lymphocytes | | | [facility] | | | | | | MEDICAL | | | | | | CENTER - | | | | | | LABORATORY | | + + + + + + | % Monocytes | 17.0 (H) | 4 - 12 % | [facility] | | | | | | [facility] | | | | | | [facility]ICAL | | | | | | CENTER - | | | | | | LABORATORY | | + + + + + + | % | 1.1 | 0 - 5 % | [facility] | | | Eosinophils | | | [facility] | | [...] + + + + | Absolute | 6.4 | 1.5 - 6.6 K/uL | [facility] [...] + + + | Absolute | 1.6 (H) | 0.0 - 1.0 K/uL | [...] | [address] | [place] | [phone] | | [facility] | | [address] | | | - LABORATORY | | | | + + + + + | [facility] | [address] | [place], [place] | | | [facility] | | [address] | | | - LABORATORY | | | | + + + + + documented in this encounter Visit Diagnoses Not on filedocumented in this encounter"
--- OUTSIDE RECORDS SUMMARY | ~2019-09-11 | XMS | Encounter Summary ---
Demographics + + + | Address | [address] | | | [place] [address] | + + + | Home Phone | | + + + | Preferred Language | Unknown | + + + | Marital Status | | + + + | Evangelical Affiliation | Unknown | + + + | Race | Unknown | + + + | Ethnic Group | Unknown | + + + Author + + + | Author | [facility] | | | and Hermannana | + + + | Organization | [facility] | | | and [...] [place], [place] | | | | | [address] | | + + + + + | Greta Broncheau | ECON | [place], [place] | | | | | [address] | | + + + + + Care Team Providers + +------+ + | Care Brass Sorter Name | Role | Phone | + +------+ + PCP | Unavailable | + +------+ + Encounter Details +--------+ + + + + | Date | Type | Department | Care Team | Description | +--------+ + + + + | 03/08/ | Hospital | [facility] | Leann, | | | 2011 | Encounter | MED CTR XRAY [address] | Antonio Infante MD [address] | | | | | [place] | [address] [place] | | | | | [place] [address] | [place] [address] | | | | | [phone] | [phone] | | | | | | | [...] Performed At | + + + | [facility] Diagnostic Imaging Department | [facility] | | [address] [facility] | [facility] | | E C H O C A R D | DIAG IMG | | I O G R A P H Y R E P O R T HEIGHT: 64" | | | WEIGHT: 175# GEODETIC ADVISOR: SMZ REFERRING DR: | | | LEANN [...] Transcribed Date/Time: | | | 03/08/2012 17:09 Wellness Coach: <Electronically Signed | | | by Endy Polo MD [facility]> 03/09/12 1615 | | + + + + + | Procedure Note | + + | Philip Groves Brennen - 12/08/2013 5:17 PM [facility] | | Diagnostic Imaging Department | | [address] [facility] | | | | | | | | E C H O C A R D I O G R A P H Y R E P O R T | | | | | | HEIGHT: 64" WEIGHT: 175# GEODETIC ADVISOR: SWAPNIL | | REFERRING DR: LEANN NEUMANN [...] | Transcribed Date/Time: 03/08/2012 17:09 | | Wellness Coach: | | <Electronically Signed by Endy Polo MD [facility]> 03/09/12 1615 | + + + [...]
--- OUTSIDE RECORDS SUMMARY | ~2019-09-11 | XMS | Encounter Summary ---
Demographics + + + | Address | [address] | | | [place] [address] | + + + | Home Phone | | + + + | Preferred Language | Unknown | + + + | Marital Status | | + + + | Sikh Affiliation | Unknown | + + + | Race | Unknown | + + + | Ethnic Group | Unknown | + + + Author + + + | Author | [facility] | | | and Hermannana | + + + | Organization | [facility] | | | and Hermannana [...] [place], [place] | | | | | [address] | | + + + + + | Greta Broncheau | ECON | [place], [place] | | | | | [address] | | + + + + + Care Team Providers + +------+ + | Care Crew Supervisor Name | Role | Phone | [...] | SR | | | | | [phone] | | | +--------+ + + + [...]
--- OUTSIDE RECORDS SUMMARY | ~2019-09-11 | XMS | Encounter Summary ---
Demographics + + + | Address | [address] | | | [place] [address] | + + + | Home Phone | | + + + | Preferred Language | Unknown | + + + | Marital Status | | + + + | Rastafarian Affiliation | Unknown | + + + | Race | Unknown | + + + | Ethnic Group | Unknown | + + + Author + + + | Author | [facility] | | | and Hermannana | + + + | Organization | [facility] | | | and Hermannana [...] [place], [place] | | | | | [address] | | + + + + + | Greta Broncheau | ECON | [place], [place] | | | | | [address] | | + + + + + Care Team Providers + +------+ + | Care Credit Risk Specialist Name | Role | Phone | [...] | | | | | Clinic | [phone] | | | | | | | [...]
--- OUTSIDE RECORDS SUMMARY | ~2019-09-11 | XMS | Encounter Summary ---
Demographics + + + | Address | [address] | | | [place] [address] | + + + | Home Phone [...] + | Author | [facility] | | | and Hermannana | + + + | Organization | [facility] | [...] [place], [place] | | | | | [address] | | + + + + + | Greta Estebaneau | ECON | [place], [place] | | | | | [address] | | + + + + + Care Team Providers + +------+ + | Care Backend Tester Name | Role | Phone | + [...] + + | 12/04/ | Telephone | [facility] | Vance Orta MD | Appointment | | 2013 | | GASTROENTEROLOGY | [address], [place] | | | | | [address] [place] | [address] | | | | | [address] [place], [place] | [address] | | | | | [address] | | | | | | [phone] | | | +--------+ + + + [...]
--- OUTSIDE RECORDS SUMMARY | ~2019-09-11 | XMS | Encounter Summary ---
Demographics + + + | Address | [address] | | | [place] [address] | + + + | Home Phone | | + + + | Preferred Language | Unknown | + + + | Marital Status | Single | + + + | Faith Affiliation | NON | + + + | Race | or | + + + | Ethnic Group | Not or | + + + Author + + + | Author | [facility] [address] [facility] | + + + | Organization | [facility] | + + + | Address | Unknown | + + + | Phone | Unavailable | + + + Support + + + + + | Name | Relationship | Address | Phone | + + + + + | Yue Fischer | ECON | [address] | | | | | [place] | | | | | [address] | | + + + + + | Greta Broncheau | ECON | Unknown | | + + + + + Care Team Providers + +------+ + | Care Routing Machine Operator Name | Role | Phone | [...] | | LUMBAR | PA-C [address] | | | | | PUNCT[address] | [address] | Mailcode: | | | | | CHEMO ADMIN | [facility] | | | | | W/GUIDANCE | Rd | for Health | | | | | | [place], [place] | and Healing, | | | | | | [address] | Building 1, | | | | | | Phone: | 3rd Floor | | | | | | [phone] | [place], [place] | | | | | | Fax: | [address] | | | | | | [phone] | Phone: | | | | | | | [phone] | | | | | | | Fax: | | | | | | | [phone] | +--------+--------+ + + + + Diagnostic [...] | LUMBAR | [address] | [address] | | | | | PUNCTURE [address] | [place] | Mailcode: | | | | | CHEMO ADMIN | [address] | [facility] | | | | | W/GUIDANCE | [facility] [place] | for Health | | | | | | [address] | and Healing, | | | | | | Phone: | Building 1, | | | | | | [phone] | 3rd Floor | | | | | | Fax: | [place], [place] | | | | | | [phone] | [address] | | | | | | | Phone: | | | | | | | [phone] | | | | | | | Fax: | | | | | | | [phone] | +--------+--------+ + + + + Diagnostic [...] | CT CHEST, | Jordan Ceballos, | [facility] [address] | | | | | ABDOMEN & | PA-C [address] | | | | | PELVIS W IV | [address] | Jena Saravia | | | | | CONTRAST | Emeka Bella | Mailcode: | | | | | | Rd | [address] [facility] | | | | | | [place], [place] | [facility] | | | | | | [address] | [place], [place] | | | | | | Phone: | [phone] | | | | | | [phone] | Phone: | | | | | | Fax: | [phone] | | | | | | [phone] | Fax: | | | | | | | [phone] | +--------+--------+ + + + + Diagnostic Testing (Routine) +--------+--------+ + + + + | Status | Reason | Specialty | Diagnoses / | Referred By | Referred To | | | | | Procedures | Contact | Contact | +--------+--------+ + + + + | Closed | | Cardiology | Procedures | [place], | Car Echo | | | | | | Jordan Ceballos, | [facility] [address] | | | | | TRANSTHORACI | PA-C [address] | [address] | | | | | C | [address] | Jena Saravia | | | | | ECHOCARDIOGR | [place]ka Aston | Mailcode: | | | | | AM, ADULT | Rd | [id number] [facility] | | | | | | [place], [place] | [facility] | | | | | | [address] | Building | | | | | | Phone: | [place], [place] | | | | | | [phone] | [address] | | | | | | Fax: | Phone: | | | | | | [phone] | [phone] | +--------+--------+ + + + + Reason [...] + + | 11/13/ | Hospital | [facility] [address] | Lala Avina MD | | | 2011 - | Encounter | [facility] Jena | [address] [facility] | | | | | Mailcode: [id number] | Jena Sar[address] [place], | | | 12/06/ | | [place] | [place] [address] | | | 2011 | | [place], [place] | [phone] | | | | | [address] | | | | | | [phone] | Marly Ruiz MD | | | | | | [address] [facility] | | | | | | [place] [address]ena Saravia | | | | | | [place], [place] | | | | | | [address] | | | | | | [phone] | | | | | | | | | | | | Dylan Martinez | | | | | | MD [address], | | | | | | [address] | | | | | | [address] | | | | | | [place], [place] | | | | | | [address] | | | | | | [phone] | | | | | | | [...] Lucila Young is a 51 year old jackson [place] woman with 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 She has been induced with hyper-CVAD R. BL: - sporadic case, HIV negative, no PROVIDER RELATIONS COORDINATOR involvement - day 22 of hyper-CVAD/Rituxan 1A, [...] in ~ 3 weeks DYLAN MARTINEZ MD [facility] 14 [address] [facility] Mailcode: Kpv14 [facility] [place] [address] [facility] DEPARTMENT: [id number]- [facility] FAC[facility] Place of Service:- Inpatient Date of Service: 12/06/2011 Suggested CPT: 07065 - Subsequent, Detailed/High complex 35 min da [...] preferre d the procedure be done at [facility] and she was referred to Dr. Osiel [...] omeprazole, leucovorin and Comp azine filled at [facility] with no co-pay. Will send the rest of the prescriptions with her to be filled at the [facility]. Physical Exam on Day of Discharge Subjective: [...] the risk of infection. Your nurse or suit maker will provide you with information about foods [...] MD to follow Dr Renee's office at [facility] on 12/07/11 for a neulasta injection at 10:50AM. They will then arrange for you to have follow appointments for labs and blood tr ansfusions if needed twice a week until your counts recover. Dr Martinez office will call you to arrange for follow up and for more chemotherapy at [facility]. Your Follow-Up Plan Follow-up information has not been specified. 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 You will [...] follow up Discharging Physician: ANALISA PEGUERO PA-C [facility] [address] [facility] Mailcode: Kpv14 [place] [facility] [address] documented in this enc ounter Discharge Instructions Instructions Neeta Gaines RN - 12/03/2011CASE MANAGEMENT ARRANGED SERVICES; You have an appointment for Wednesday12/07/11 at 10:50am for your Neulasta. They will also be s eeing you 2-3 times a week for your lab draws and if any transfusions are needed you will ge t them there. Address for appointment is [address] [place] [address] And the phone number is . Directions from the Primary office is to turn right off [address] on and follow to Will and . You will need to seek any medical attention for any acute issues to [facility]. Additional Instructions: Check your oral temperature twice [...] rest. Call if you have any questions! 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 She has been induced with hyper-CVAD R. BL: - sporadic case, HIV negative, no PROVIDER RELATIONS COORDINATOR involvement - day 21 of hyper-CVAD/Rituxan 1A, [...] Code status: full [facility]up and Neulasta with Dr. Renee, follow-up wit Dr. Hutchins for hyper-CVAD IIA in ~ 3 weeks DYLAN MARTINEZ MD [facility] 14 [address] [facility] Mailcode: Kpv14 [facility] [address] [facility] DEPARTMENT: [id number]- [facility] Place of Service:- Inpatient Date of Service: 12/05/2011 Suggested CPT: 67408 - Subsequent, Detailed/High complex 35 min Ida [...] preferre d the procedure be done at [facility] and she was referred to Dr. Osiel [...] with IT cytarabine done with CSF PENDING -2/3/12 MTX 0.44. - 12/04/11 Mammogram completed to f/u left breast soft tissue nodules seen on 11/14/11 CT scan . Shows 2 nodules in the left breast that have benign mammographic features. However asses sment states that this was an incomplete study [...] mg po QID. Repeat CDiff ne gative. Stopped PO vanco 12/02 and contact precautions [...] any diabetic medication. Dispo: Patient is from [place], [place] and utilizes [employer]. Currently has OHP application pending. Patient requesting to have her care at [facility]. Currently working to have local oncologist to follow patient between chemotherapy cycles. Will be able to have acycl ovir, levaquin, Nystatin, omeprazole and Compazine filled at [facility] with no co-pay. Will send the rest of the prescriptions with her to be filled at the [facility]. 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 She has been induced with hyper-CVAD R. BL: - sporadic case, HIV negative, no PROVIDER RELATIONS COORDINATOR involvement - day 20 of hyper-CVAD/Rituxan 1A, [...] 11/26 Code status: full DYLAN MARTINEZ MD [facility] 14 [address] [facility] Mailcode: Kpv14 [place] [facility] [address] [facility] DEPARTMENT: [id number]- [facility] Place of Service:- Inpatient Date of Service: 12/04/2011 Suggested CPT: 40852 - Subsequent, Detailed/High complex 35 min da Cee - 12/04/2011 8:39 AM PST Daily NPP [...] preferre d the procedure be done at [facility] and she was referred to Dr. Osiel [...] cycle B 12/02 then follow up in [place] area. -CBC reviewed and noted for recovery. [...] switched t o PRN. Stopped PO vanco 12/02 and contact precautions [...] continue u ntil resolves. Stopped PO vanco / and contact precautions given 48 hours with [...] could consider change in diet to ADA 4706-0650, or adding o ral agent. Dispo: Patient is from [place], [place] and utilizes [employer]. Currently has OHP application pending. Patient requesting to have her care at [facility]. Currently working to have local oncologist to follow patient between chemotherapy cycles. Will be able to have acycl ovir, insulin lispro, levaquin, Nystatin, omeprazole and Compazine filled at [facility] with no co -pay. Will send the rest of the prescriptions with her to be filled at the [facility]. 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 She has been induced with hyper-CVAD R. BL: - sporadic case, HIV negative, no PROVIDER RELATIONS COORDINATOR involvement - day 19 of hyper-CVAD/Rituxan 1A, [...] 11/26 Code status: full DYLAN MARTINEZ MD [facility] [address] [facility] Mailcode: Kpv14 [place] [facility] [place] [address] [facility] DEPARTMENT: [id number]- [facility] Place of Service:- Inpatient Date of Service: 12/03/2011 Suggested CPT: 89161 - Subsequent, Detailed/High complex 35 min CathyEuniceRAHUL - 12/03/2011 4:28 PM PST Daily NPP [...] 12/03/2011 Meds: Reviewed on rounds, see current [facility] for medication list Assessment: Hematology: History: (Per [...] preferre d the procedure be done at [facility] and she was referred to Dr. Osiel [...] cycle B 12/02 then follow up in [place] area. -CBC reviewed and noted for recovery. [...] could consider change in diet to ADA 9653-9702, or adding o ral agent. Dispo: Patient is from [place], [place] and utilizes [facility]. Currently has OHP application pending. Patient requesting to have her care at [facility]. Currently working to have local oncologist to follow patient between chemotherapy cycles. 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 She has been induced with hyper-CVAD R. BL: - sporadic case, HIV negative, no PROVIDER RELATIONS COORDINATOR involvement - day 18 of hyper-CVAD/Rituxan 1A, [...] 11/26 Code status: full DYLAN MARTINEZ MD [facility] [address] [facility] Mailcode: Kpv14 [facility] [address] [facility] DEPARTMENT: [id number]- [facility] Place of Service:- Inpatient Date of Service: 12/02/2011 Suggested CPT: 02608 - Subsequent, Detailed/High complex 35 min Eunice [...] prompting a return visit to [facility] PCP office on 09/30/2011. She continued to have abdominal pain and had an abdominal ultras ound on 10/01/2011 that showed multiple fluid filled structures with some internal echoes lynen t were adjacent to the pancrease. She was also noted to have a fatty liver. She had a follow -up abdomen/pelvic CT scan on 10/05/2011 that showed numerous masses in the retroperitoneum. The largest of the masses measured 10 cm. She was seen by Dr. Jonathan Aranda, Surgery, for further evaluation of her mass. She preferre d the procedure be done at [facility] and she was referred to Dr. Osiel [...] starting today 12/02 then follow up in [facility]. -CBC reviewed and noted for recovery. Hospitalization [...] could consider change in diet to ADA 8549-2871, or adding o ral agent. Dispo: Patient is from [place], [place] and utilizes [employer]. Currently has OHP application pending. Patient requesting to have her care at [facility]. Currently working to have local oncologist to follow patient between chemotherapy cycles. 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 She has been induced with hyper-CVAD R. BL: - sporadic case, HIV negative, no PROVIDER RELATIONS COORDINATOR involvement - day 17 of hyper-CVAD/Rituxan 1A, [...] 11/26 Code status: full DYLAN MARTINEZ MD [facility] 14 [address] [facility] Mailcode: Kpv14 [facility] [address] [facility] DEPARTMENT: [id number]- [facility] Place of Service:- Inpatient Date of Service: 12/01/2011 Suggested CPT: 55142 - Subsequent, Detailed/High complex 35 min Eunice [...] prompting a return visit to [facility] PCP office on 09/30/2011. She continued to [...] preferre d the procedure be done at [facility] and she was referred to Dr. Osiel [...] give cycle B then follow up in [facility]. -CBC reviewed and noted for recovery. Hospitalization [...] 125 mg po QID. Repeat CDiff ne leigh. Will need at least a 14 day course but with continued loose stool plan to continue u ntil resolves. Fungal: Prophylactic fluconazole. Viral: Prophylactic Acyclovir PCP: Prophylactic Bactrim stopped until after HD MTX Pertinent positive culture: none Pertinent negative cultures: none Fluid/Electrolyte/Nutrition: See I/O above. Current diet: low bacteria, no dairy. Tolerating 100% x 3 meals with 2L po fluid intake ye . Encourage po intake as tolerated with [...] could consider change in diet to ADA 6262-0732, or adding o ral agent. Dispo: Patient is from [place], [place] and utilizes [facility]. Currently has OHP application pending. Patient requesting to have her care at [facility]. Currently working to have local oncologist to follow patient between chemotherapy cycles. 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 She has been induced with hyper-CVAD R. BL: - sporadic case, HIV negative, no PROVIDER RELATIONS COORDINATOR involvement - day 16 of hyper-CVAD/Rituxan 1A, [...] 11/26 Code status: full DYLAN MARTINEZ MD [facility] K[facility] [address] [facility] Mailcode: Kpv14 [place] [address] [facility] DEPARTMENT: [id number]- [facility] Place of Service:[address]- Inpatient Date of Service: 11/30/2011 Suggested CPT: 35044 - Subsequent, Detailed/High complex 35 min unice Longo ANP - 11/30/2011 2:34 PM PST Daily NPP Note - Chemotherapy Admit [facility] Provider: Dylan Martinez MD PCP: JING Luis Date of Admission: 11/13/11 Hematologic Malignancy: Burkitts lymphoma Reason for admission: Chemotherapy, R-HyperCVAD started 11/15/11 Subjective: Lots of loose stool. Denies N/V or abd pain. Wishes to have follow up care post B cycle of hyper-cvad in [place]. Objective: Last Vitals: BP 123/75 | Pulse [...] preferre d the procedure be done at [facility] and she was referred to Dr. Osiel [...] give cycle B then follow up in [place] area. -CBC reviewed and noted for recovery. [...] could consider change in diet to ADA 7783-2935, or adding o ral agent. Dispo: Patient is from [place], [place] and utilizes [place] [employer]. Currently has OHP application pending. Patient requesting to have her care at [facility]. Currently working to have local oncologist to follow patient between chemotherapy cycles. RAHUL Coto ANP [facility] KPV [address] [facility] Mailcode: Kpv14 [place] [facility] [address] Shimon Raymundo MD,PhD - 11/29/2011 5:04 PM [...] C difficile diarrhea Shimon Harvey MD PhD [facility] DEPARTMENT: [id number]- [facility] Place of Service: - Inpatient Date of Service: 11/29/2011 Suggested CPT: 02200 - Subsequent, Detailed/High complex 35 min Shimon [...] C difficile diarrhea Shimon Harvey MD PhD [facility] DEPARTMENT: [id number] FACULTY [facility] Place of Service: - Inpatient Date of Service: 11/28/2011 Suggested CPT: 79323 - Subsequent, Detailed/High complex 35 min StuartMaricel montalvo [facility] - 11/28/2011 11:25 AM PST Daily NPP [...] preferre d the procedure be done at [facility] and she was referred to Dr. Osiel [...] MTX under fluoro on 11/18 to r/o PROVIDER RELATIONS COORDINATOR involvement, Done under fluoro d /t pt [...] could consider change in diet to ADA 8425-9588, or adding o ral agent. Dispo: Patient is from [place], [place] and utilizes [place] [employer]. Currently has OHP application pending. Patient requesting to have her care at [facility]. Currently working to have local oncologist to follow patient between chemotherapy cycles. 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 She has been induced with hyper-CVAD R. BL: - sporadic case, HIV negative, no PROVIDER RELATIONS COORDINATOR involvement - day 13 of hyper-CVAD/Rituxan 1A [...] 11/26 Code status: full DYLAN MARTINEZ MD [facility] K[facility] [address] [facility] Mailcode: Kpv14 [facility] [address] [facility] DEPARTMENT: [id number]- [facility] Place of Service:- Inpatient Date of Service: 11/27/2011 Suggested CPT: 00066 - Subsequent, Detailed/High complex 35 min Karla Silverman PA - 11/27/2011 1:00 PM PST Daily NPP [...] 1 Meds: Reviewed on rounds, see current [facility] for medication list Assessment: Hematology: History: (Per [...] preferre d the procedure be done at [facility] and she was referred to Dr. Osiel [...] MTX under fluoro on 11/18 to r/o PROVIDER RELATIONS COORDINATOR involvement, Done under fluoro d /t pt [...] could consider change in diet to ADA 5782-7568, or adding o ral agent. Dispo: Patient is from [place] and utilizes [employer]. Currently has OHP application pending. Patient requesting to have her care at [facility]. Currently working to have local oncologist to follow patient between chemotherapy cycles. 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 She has been induced with hyper-CVAD R. BL: - sporadic case, HIV negative, no PROVIDER RELATIONS COORDINATOR involvement - day 12 of hyper-CVAD/Rituxan 1A [...] 11/26 Code status: full DYLAN MARTINEZ MD [facility] [address] [facility] Mailcode: Kpv14 [facility] [address] [facility] DEPARTMENT: [id number]- [facility] Place of Service:- Inpatient Date of Service: 11/26/2011 Suggested CPT: 84918 - Subsequent, Detailed/High complex 35 min LYMannmaame, PRABHAKAR Gupta - 11/26/2011 12:36 PM PST [...] preferre d the procedure be done at [facility] and she was referred to Dr. Osiel [...] MTX under fluoro on 11/18 to r/o PROVIDER RELATIONS COORDINATOR involvement, Done under fluoro d /t pt [...] could consider change in diet to ADA 6461-2074, or adding o ral agent. Dispo: Patient is from [place], [place] and utilizes [facility]. Currently has [place] application pending. Patient requesting to have her care at [facility]. Currently working to have local oncologist to follow patient between chemotherapy cycles. PRABHAKAR MOYA [facility] KPV 14 [address] [facility] Mailcode: Kpv14 [place] [facility] [address] Osiel Lemon MD - 0 11/25/2011 2:45 [...] 2. Burkitt's Lymphoma, on chemo P: Per Scxw-Txi-qlp can follow up with Surg Onc in the remote future (1 to 2 months fine) unle ss there are intervening issues. 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 She has been induced with hyper-CVAD R. BL: - sporadic case, HIV negative, no PROVIDER RELATIONS COORDINATOR involvement - day 11 of hyper-CVAD/Rituxan 1A [...] steroids Code status: full DYLAN MARTINEZ MD [facility] [address] [facility] Mailcode: Kpv14 [facility] [address] [facility] DEPARTMENT: [id number]- [facility] Place of Service:- Inpatient Date of Service: 11/25/2011 Suggested CPT: 97228 - Subsequent, Detailed/High complex 35 min Karla Silverman PA - 11/25/2011 12:10 PM PST Daily NPP Note - Chemotherapy Admit [facility] Attending: Dylan Martinez MD PCP: JING Luis Date of Admission: 11/13/11 Hematologic Malignancy: Burkitts lymphoma Reason for admission: Chemotherapy, R-HyperCVAD started 11/15/11 Subjective: Remains in very good spirits. No new complaints at this time. She is very ple ased with her care at [facility]. Objective: Last Vitals: BP 125/77 | Pulse [...] prompting a return visit to [facility] PCP office on 09/30/2011. She continued to [...] preferre d the procedure be done at [facility] and she was referred to Dr. Osiel [...] MTX under fluoro on 11/18 to r/o PROVIDER RELATIONS COORDINATOR involvement, Done under fluoro d /t pt [...] could consider change in diet to ADA 6439-4939, or adding oral agent. Dispo: Patient is from [place], [place] and utilizes [employer]. Currently has [facility] application pending. Patient requesting to have her care at [facility]. Currently working to have local oncologist to follow patient between chemotherapy cycles. 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 She has been induced with hyper-CVAD R. 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 She has been induced with hyper-CVAD R. BL: - sporadic case, HIV negative, no PROVIDER RELATIONS COORDINATOR involvement - day 9 of hyper-CVAD/Rituxan 1A [...] steroids Code status: full DYLAN MARTINEZ MD [facility] KP 14 [address] [facility] Mailcode: Kpv14 [place] [address] [facility] DEPARTMENT: [id number]- [facility] FACULTY MPV Place of Service:- Inpatient Date of Service: 11/23/2011 Suggested CPT: 44237 - Subsequent, Detailed/High complex 35 min aricel Washington A PROFESSOR OF LAW - 11/23/2011 12:52 PM PST Daily NPP Note - Chemotherapy Admit [facility] Attending: Dr. Shimon Harvey PCP: JING Luis Date of Admission: 11/13/11 Hematologic Malignancy: Burkitts lymphoma Reason for admission: Chemotherapy Subjective: Remains in very good spirits. No new complaints at this time. She is very ple ased with her care at [facility]. Objective: Last Vitals: BP 100/61 | Pulse [...] preferre d the procedure be done at [facility] and she was referred to Dr. Osiel [...] MTX under fluoro on 11/18 to r/o PROVIDER RELATIONS COORDINATOR involvement, Done under fluoro d /t pt [...] instead hyperglycemic given underlying malignancy. CBG's mini keynon elevated with steroids. Monitor sugars now off steroids, CBG's improving. Will dc slid ing scale today and follow accuchecks. If remains mildly elevated, could consider change in diet to ADA 3160-5098, or adding oral agent. Dispo: Patient is from [place], [place] and utilizes [employer]. Currently has [facility] application pending. Patient requesting to have her care at [facility]. Currently working to have local oncologist to follow patient between chemotherapy cycles. MARICEL WASHINGTON, OSMINP [facility] KPV [address] [facility] Mailcode: Kpv14 [facility] [address] Lala Santana MD - 0 11/22/2011 4:09 [...] our orders from today. LALA AVINA MD [facility] 14 [address] [facility] Mailcode: Kpv14 [facility] [address] [facility] DEPARTMENT: [id number]- [facility] FACULT[facility] MPV Place of Service:- Inpatient Date of Service: 11/22/2011 Suggested CPT: 12175 - Subsequent, Detailed/High complex 35 min Jordan [...] preferre d the procedure be done at [facility] and she was referred to Dr. Osiel [...] MTX under fluoro on 11/18 to r/o PROVIDER RELATIONS COORDINATOR involvement, Done under fluoro d /t pt [...] steroids, CBG's improving. Dispo: Patient is from [place], [place] and utilizes [facility]. Currently has OHP application pending. Patient requesting to have her care at [facility]. Currently working to have local oncologist to follow patient between chemotherapy cycles. JORDAN SALINAS PA-C [facility] KPV [address] [facility] Mailcode: Kpv14 [facility] [address] Lala Santana MD - 11/21/2011 1:37 PM [...] our orders from today. LALA AVINA MD [facility] 14 [address] [facility] Mailcode: Kpv14 [facility] [id number] [facility] DEPARTMENT: [id number]- [facility] FACULTY [facility] Place of Service:- Inpatient Date of Service: 11/21/2011 Suggested CPT: 55031 - Subsequent, Detailed/High complex 35 min Jordan Saucedo PA-C - 11/21/2011 10:08 AM PST Daily NPP Note - Chemotherapy Admit [facility] Malignancies Attending: Lala Avina MD PCP: Becky Sineath, PROSTHETIC LAB TECHNICIAN Date of Admission: 11/13/11 Hematologic Malignancy: Burkitts [...] prompting a return visit to [facility] PCP office on 09/30/2011. She continued to [...] preferre d the procedure be done at [facility] and she was referred to Dr. Osiel [...] MTX under fluoro on 11/18 to r/o PROVIDER RELATIONS COORDINATOR involvement, Done under fluoro d /t pt [...] steroids, CBG's improving. Dispo: Patient is from [place], [place] and utilizes [facility]. Currently has [place] application pending. Patient requesting to have her care at [facility]. Currently working to have local oncologist to follow patient between chemotherapy cycles. JORDAN SALINAS PA-C [facility] [address] [facility] Mailcode: Kpv14 [facility] [address] Lala Santana MD - 11/20/2011 2:20 PM [...] our orders from today. LALA AVINA MD [facility] [address] [facility] Mailcode: Kpv14 [facility] [id number] [facility] DEPARTMENT: [id number] FACULTY MPV Place of Service:- Inpatient Date of Service: 11/20/2011 Suggested CPT: 50449 - Subsequent, Detailed/High complex 35 min Jordan Saucedo PA-Naresh - 11/20/2011 1:30 PM PST Daily NPP [...] 22 -- BUN -- 13 -- 18 -- CR -- 0.65 -- 0.63 0.66 [...] preferre d the procedure be done at [facility] and she was referred to Dr. Osiel [...] MTX under fluoro on 11/18 to r/o PROVIDER RELATIONS COORDINATOR involvement, Done under fluoro d /t pt [...] sugars now off steroids. JORDAN SALINAS PA-C [facility] 14 [address] [facility] Mailcode: Kpv14 [facility] [address] Shimon Raymundo MD,Ph D - 11/19/2011 4:24 PM PSTHematologic [...] Volume overload C diff diarrhea diabetes Shimon Harevy MD PhD [facility] DEPARTMENT: [id number] [facility] FAC[facility] MPV Place of Service: - Inpatient Date of Service: 11/19/2011 Suggested CPT: 23434 - Subsequent, Detailed/High complex 35 min Karla [...] 0* Meds: Reviewed on rounds, see current [facility] for medication list Assessment: Hematology: History: (Per [...] preferre d the procedure be done at [facility] and she was referred to Dr. Osiel [...] MTX under fluoro on 11/18 to r/o PROVIDER RELATIONS COORDINATOR involvement, Done under fluoro d /t pt [...] G's in setting of Dex. PRABHAKAR MOYA [facility] [address] [facility] Mailcode: Kpv14 [facility] [id number] ala Avina MD - 11/18/2011 12:36 PM PST 11/18/11 Inpatient BMT Attending Progress Note Zfoia Young is a 51 y.o. female Patient [...] our orders from today. LALA AVINA MD [facility] 14 [address] [facility] Mailcode: Kpv14 [facility] [address] [facility] DEPARTMENT: [id number]- [facility] FACULT[facility] MPV Place of Service:[address]39- Inpatient Date of Service: 11/18/2011 Suggested CPT: 01026 - Subsequent, Detailed/High complex 35 min Maricel [...] preferre d the procedure be done at [facility] and she was referred to Dr. Osiel [...] lymphoma -will require LP today(11/18) to r/o PROVIDER RELATIONS COORDINATOR involvement, plan to do under fluoro d/t [...] Monitor CBG's in set ting of Dex. MARICEL WASHINGTONCHARLIE [facility] KPV [address] [facility] Mailcode: Kpv14 [place] [address] s Lala Santana MD - 0 11/17/2011 [...] our orders from today. LALA AVINA MD [facility] KPV [address] [facility] Mailcode: Kpv14 [facility] [address] [facility] DEPARTMENT: [id number]- [facility] FACULT[facility] MPV Place of Service:- Inpatient Date of Service: 11/17/2011 Suggested CPT: 27984 - Subsequent, Detailed/High complex 35 min Maricel [...] preferre d the procedure be done at [facility] and she was referred to Dr. Osiel [...] require LP in near future to r/o PROVIDER RELATIONS COORDINATOR involvement, will do 11/18 and plan to [...] in set ting of Dex. CHARLIE NICHOLSON [facility] KPV [address] [facility] Mailcode: Kpv14 [facility] [address] s Jacklyn Silverman - 4:51 PM PSTTransthoracic [...] 5406 ml Allergies: No Known Allergies See [facility] for medication list Laboratory or other studies: [...] day 2. Orders for chemotherapy placed in Qvolve chemotherapy electronic order system; rituximab altered to [...] our orders from today. LALA AVINA MD [facility] [address] [facility] Mailcode: Kpv14 [facility] [address] [facility] DEPARTMENT: [id number] FACULT[facility] MPV Place of Service:- Inpatient Date of Service: 11/16/2011 Suggested CPT: 33620 - Subsequent, Detailed/High complex 35 min orgeMaricel hong, ACNP - 0 11/16/2011 2:21 PM PST Daily NPP Note - Chemotherapy Admit [facility] for Hematologic Malignancies Attending: Dr. Lala Avina PCP: JING Luis Date of Admission: 11/13/11 Hematologic Malignancy: Burkitts lymphoma Reason for admission: Chemotherapy Subjective: Feels much better today. Tolerating chemotherapy without difficulty at this [facility]. Objective: Last Vitals: BP 111/71 | Pulse [...] preferre d the procedure be done at [facility] and she was referred to Dr. Osiel [...] require LP in near future to r/o PROVIDER RELATIONS COORDINATOR involvement, hold off on holiday weekend and [...] in set ting of Dex. CHARLIE NICHOLSON [facility] [address] [facility] Mailcode: Kpv14 [place] [address] s Marly Maldonado MD - 11/15/2011 2:36 [...] initiate treatment Orders for chemotherapy placed in Qvolve chemotherapy electronic order system; rituximab al tered [...] orders = 80 mins MARLY RUIZ MD [facility] [address] [place] [address] Mailcode: Kpv13 [facility] [address] [facility] DEPARTMENT: [id number] FACULTY MP Place of Service:- Inpatient Date of Service: 11/15/11 Suggested CPT:55241 - Subsequent, Detailed/High complex 35 min, 36051- Prolonged service face to face 1st 30 minutes and 45914- Prolonged service face to face each addt [...] Basename 11/15/11 0900 11/15/11 0609 11/15/11 0024 11/14/11200111/13/11 1621 NA -- 132*|132* 132* 132* -- [...] preferre d the procedure be done at [facility] and she was referred to Dr. Osiel Almnaza. She was seen on 10/02 for her [...] require LP in near future to r/o PROVIDER RELATIONS COORDINATOR involvement, hold off on holiday weekend and [...] set ting of Dex. JORDAN SALINAS PA-C [facility] KPV [address] [facility] Mailcode: Kpv13 [facility] [id number] Marly Maldonado M D - 11/14/2011 3:01 [...] Basename 11/14/11 1210 11/14/11 0959 11/14/11 0638 11/13/11 2010 NA -- 136 136 135 K -- [...] begin chemotherapy in morning. MARLY RUIZ MD [facility] [address] [facility] Mailcode: Kpv13 [facility] [address] [facility] DEPARTMENT: [id number]- [facility] FACULT[facility] MPV Place of Service:- Inpatient Date of Service: 11/14/11 Suggested CPT:81848 - Subsequent, Detailed/High complex 35 min Jordan [...] prompting a return visit to [facility] PCP office on 09/30/2011. She continued to [...] preferre d the procedure be done at [facility] and she was referred to Dr. Osiel [...] require LP in near future to r/o PROVIDER RELATIONS COORDINATOR involvement, hold off on holiday weekend and [...] underlying malignancy. Monitor CBG's. JORDAN SALINAS PA-C [facility] 13 [address] [facility] Mailcode: Kpv13 [facility] [id number] documented in this encounter Plan of Treatment [...] BEACON | e | 11:45 AM | (FORM[facility]LY [facility]) | | | | | PST | | | + +--------+ + + + | NURSING | Routin | 12/02/2011 | Burkitt's lymphoma | | | COMMUNICATION #10 - | e | 11:45 AM | (FORMERLY [facility]) | | | BEACON | | PST [...] VRE (KATLYN) BY PCR | Routin | 11/29/2011 | [...] CHG), | e | 11:53 AM | (FORMERLY [facility]) | procedure are in the | | [...] VRE (KATLYN) BY PCR | Routin | 11/13/2011 | [...] [facility] | [address] | [place], [place] | | | [facility] | [address] | [address] | | | TESTS | | | [...] [place] | [address] | [place], [place] | | | [place] [facility] | [address] | [address] | | | TESTS | | | [...] DEPARTMENT OF | [address] | [place] [address] | | | PATHOLOGY | [address] [...] | + + + + + | [facility] DEPARTMENT OF | [address] | [place] [address] | | | PATHOLOGY | [address] [...] | + + + + + | [facility] | [address] | [place] [address] | | | PATHOLOGY | [address] [...] | + + + + + | [facility] | [address] | [place] [address] | | | PATHOLOGY | [address] [...] | + + + + + | [facility] DEPARTMENT OF | [address] | [place] [address] | | | PATHOLOGY | [address] [...] | + + + + + | [facility] DEPARTMENT | [address] [facility] | [place] [address] | | | PATHOLOGY | [address] [...] | + + + + + | [facility] | [address] | [place] [address] | | | PATHOLOGY | [address] [...] | | | [facility] ([facility]) [facility] | | | [address] [place] [address] | | + + + + + + + + | Performing | Address | City/State/Zipcode | Phone Number | | Organization | | | | + + + + + | [facility] | [address] | [place] [address] | | | LABORATORY | | | [...] [place] | [address] | [place], [place] | | | [facility] | [facility] | [address] | | | TESTS | | | [...] [place] | [address] | [place], [place] | | | [facility] | [facility] | [address] | | | TESTS | | | | + + + + + CAPILLARY BLOOD GLUCOSE, POC (12/05/2011 12:21 PM PST) + +---------+ + + + | Component | Value | Ref Range | Performed | Pathologist | | | | | At | Signature | + +---------+ + + + | BLOOD | 180 (H) | 60 - 99 mg/dL | [place] - | | | GLUCOSE, | | [...] [place] | [address] | [place], [place] | | | [facility] | [address] | [address] | | | TESTS | | | [...] - [facility] | [address] | [place], [place] | | | [place] [facility] | [address] | [address] | | | TESTS | | | [...] | + + + + + | [facility] | [address] | [place] [address] | | | PATHOLOGY | [address] [...] DEPARTMENT OF | [address] | [place] [address] | | | PATHOLOGY | [address] [...] DEPARTMENT OF | [address] | [place] [address] | | | PATHOLOGY | [address] [...] | + + + + + | [facility] DEPARTMENT OF | [address] | [place] [address] | | | PATHOLOGY | [address] | | | + + + + + PHOSPHORUS, PLASMA (12/05/2011 12:10 AM PST) + +-------+ + + + | Component | Value | Ref Range | Performed | Pathologist | | | | | At | Signature | + +-------+ + + + | PHOSPHORUS, | 3.1 | 2.4 - 4.7 mg/dL | [facility] | | | PLASMA | | | [...] | + + + + + | [facility] DEPARTMENT OF | [address] [facility] | [place] [address] | | | PATHOLOGY | [address] [...] | + + + + + | [facility] | [address] | [place] [address] | | | PATHOLOGY | [address] [...] | + + + + + | [facility] | [address] | [place] [address] | | | PATHOLOGY | [address] [...] in the assay. | | | RLB ([facility]) [facility] | | | [address] [place] [address] | | + + + + + + + + | Performing | Address | City/State/Zipcode | Phone Number | | Organization | | | | + + + + + | [facility] | [address] | [place] [address] | | | LABORATORY | | | [...] [place] | [address] | [place], [place] | | | [facility] | [facility] | [address] | | | TESTS | | | [...] + | [facility] | [address] | [place], [place] | | | [facility] | [address] | [address] | | | TESTS | | | [...] Accession#: | | | | | | [id number] CC and | | | | | [...] | | | | | | from [place] | | | | | | Diagnostic [...] | | | | | | at [facility] and | | | | | | [facility]. | | | | | | ASSESSMENT: [...] [place] | [address] | [place], [place] | | | [facility] | [address] | [address] | | | TESTS | | | | + + + + + SLAUGHTER (VANA) BY PCR (12/04/2011 12:26 PM PST) + [...] | + + + + + | [facility] DEPARTMENT OF | [address] | [place] [address] | | | PATHOLOGY | [address] [...] + + + | INDETERMINATE Phoned TO JANUARY PLATA IN 14K @ 10:07; RECOMMENDED | [facility] | | PERFORMING A TRUE RECTAL SWAB FOR THE PROCEDURE, RATHER THAN SIMPLY A | DEPARTMENT OF | | SWAB DIPPED IN STOOL | PATHOLOGY | + + + + + + + + | Performing | Address | City/State/Zipcode | Phone Number | | Organization | | | | + + + + + | [facility] DEPARTMENT OF | [address] | [place] [address] | | | PATHOLOGY | [address] [...] [facility] | [address] | [place], [place] | | | [facility] | [address] | [address] | | | TESTS | | | [...] + + | * Corrected 12/04/11 01:40: RACHAELNEL COMMENTS, prev report: Slide | [facility] | | review pending. | DEPARTMENT OF | | | PATHOLOGY | + + + + + + + + | Performing | Address | City/State/Zipcode | Phone Number | | Organization | | | | + + + + + | [facility] DEPARTMENT OF | [address] | [place] [address] | | | PATHOLOGY | [address] [...] | + + + + + | [facility] | [address] | [place] [address] | | | PATHOLOGY | [address] [...] DEPARTMENT OF | [address] | [place] [address] | | | PATHOLOGY | [address] [...] DEPARTMENT OF | [address] | [place] [address] | | | PATHOLOGY | [address] [...] | + + + + + | [facility] | [address] | [place] [address] | | | PATHOLOGY | [address] [...] | + + + + + | [facility] DEPARTMENT OF | [address] | [place] [address] | | | PATHOLOGY | [address] [...] DEPARTMENT OF | [address] | [place] [address] | | | PATHOLOGY | [address] | | | + + + + + RADIOLOGY (12/04/2011 12:00 AM PST) + + + | Narrative | Performed At | + + + | | | + + + + + | Transcriptions | + + | Lamberto Faculty - 12/29/2011 10:28 AM PST | + [...] + | SPECIMEN | BLOOD | | CEHRY | | | TYPE TOX | BLOOD [...] in the assay. | | | RLB ([facility]) [facility] | | | [address] [place] [address] | | + + + + + + + + | Performing | Address | City/State/Zipcode | Phone Number | | Organization | | | | + + + + + | [facility] | [address] | [place] [address] | | | LABORATORY | | | [...] DEIRDRE [place] | [address] | [place], [place] | | | [facility] | [address] | [address] | | | TESTS | | | [...] - SHELL[facility] | [address] | [place], [place] | | | [facility] | [address] | [address] | | | TESTS | | | [...] | + + + + + | [facility] DEPARTMENT | [address] | [place] [address] | | | PATHOLOGY | [address] [...] [facility] DEPARTMENT | [address] | [place] [address] | | | PATHOLOGY | [address] [...] | + + + + + | [facility] DEPARTMENT OF | [address] | [place] [address] | | | PATHOLOGY | [address] [...] | + + + + + | [facility] | [address] | [place] [address] | | | PATHOLOGY | [address] [...] | + + + + + | [facility] DEPARTMENT | [address] | [place] [address] | | | PATHOLOGY | [address] [...] (H) | 60 - 99 mg/dL | [facility] - | | | GLUCOSE, | | [...] [place] | [address] | [place], [place] | | | [facility] | [address] | [address] | | | TESTS | | | | + + + + + UA DIPSTICK ONLY, POC RESULT (12/03/2011 8:06 AM [...] DEPARTMENT OF | [address] | [place] [address] | | | PATHOLOGY | [address] [...] DEPARTMENT OF | [address] | [place] [address] | | | PATHOLOGY | [address] [...] | + + + + + | [facility] DEPARTMENT OF | [address] | [place] [address] | | | PATHOLOGY | [address] [...] | + + + + + | [facility] | [address] | [place] [address] | | | PATHOLOGY | [address] [...] + | * Corrected 12/03/11 03:53: HILARIO STILL, prev report: Slide | [facility] | | review pending. | DEPARTMENT OF | | | PATHOLOGY | + + + + + + + + | Performing | Address | City/State/Zipcode | Phone Number | | Organization | | | | + + + + + | [facility] DEPARTMENT OF | [address] | [place] [address] | | | PATHOLOGY | [address] [...] | + + + + + | [facility] DEPARTMENT OF | [address] | [place] [address] | | | PATHOLOGY | [address] [...] | + + + + + | [facility] | [address] | [place] [address] | | | PATHOLOGY | [address] [...] | + + + + + | [facility] DEPARTMENT OF | [address] | [place] [address] | | | PATHOLOGY | [address] [...] | + + + + + | [facility] DEPARTMENT OF | [address] | [place] [address] | | | PATHOLOGY | [address] [...] | + + + + + | [facility] DEPARTMENT | [address] | [place] [address] | | | PATHOLOGY | [address] [...] 12 | | | | | | [id number] all | | | | | | ZOFIA | | | | | | [id number] | | | | | | -KOVACSOVICS, | | | | | | [id number] | | | | | | WRD: [...] | + + + + + | [facility] | [address] | [place] [address] | | | PATHOLOGY | [address] [...] | + + + + + | [facility] DEPARTMENT OF | [address] [facility] | [place] [address] | | | PATHOLOGY | [address] [...] DEPARTMENT OF | [address] | [place] [address] | | | PATHOLOGY | [address] [...] 05:03: HILARIO COMMENTS, prev report: Slide | [facility] | | review pending. | DEPARTMENT OF | | | PATHOLOGY | + + + + + + + + | Performing | Address | City/State/Zipcode | Phone Number | | Organization | | | | + + + + + | [facility] DEPARTMENT OF | [address] | [place] [address] | | | PATHOLOGY | [address] [...] DEPARTMENT OF | [address] | [place] [address] | | | PATHOLOGY | [address] [...] | + + + + + | [facility] | [address] | [place] [address] | | | PATHOLOGY | [address] [...] 05:03: HILARIO COMMENTS, prev report: Slide | [facility] | | review pending. | DEPARTMENT OF | | | PATHOLOGY | + + + + + + + + | Performing | Address | City/State/Zipcode | Phone Number | | Organization | | | | + + + + + | [facility] | [address] | [place] [address] | | | PATHOLOGY | [address] [...] DEPARTMENT OF | [address] | [place] [address] | | | PATHOLOGY | [address] [...] [facility] DEPARTMENT | [address] | [place] [address] | | | PATHOLOGY | [address] [...] DEPARTMENT OF | [address] | [place] [address] | | | PATHOLOGY | [address] [...] | + + + + + | [facility] DEPARTMENT OF | [address] | [place] [address] | | | PATHOLOGY | [address] [...] | + + + + + | [facility] | [address] | [place] [address] | | | PATHOLOGY | [address] [...] | + +---------+ + + + | DOMINIQUEO # | 0.0 | <0.3 | [facility] [...] | + + + + + | [facility] | [address] | [place] [address] | | | PATHOLOGY | [address] | | | + + + + + URIC ACID, PLASMA (12/01/2011 1:15 AM PST) + +-------+ + + + | Component | Value | Ref Range | Performed | Pathologist | | | | | At | Signature | + +-------+ + + + | URIC ACID, | 3.2 | 2.5 - 6.2 mg/dL | [facility] [...] DEPARTMENT OF | [address] | [place] [address] | | | PATHOLOGY | [address] [...] | + + + + + | [facility] DEPARTMENT | [address] | [place] [address] | | | PATHOLOGY | [address] [...] | + + + + + | [facility] DEPARTMENT OF | [address] | [place] [address] | | | PATHOLOGY | [address] [...] | + + + + + | [facility] DEPARTMENT | [address] | [place] [address] | | | PATHOLOGY | [address] | | | + + + + + MAGNESIUM, PLASMA (12/01/2011 1:15 AM PST) + +-------+ + + + | Component | Value | Ref Range | Performed | Pathologist | | | | | At | Signature | + +-------+ + + + | MAGNESIUM,P | 2.0 | 1.8 - 2.5 mg/dL | [facility] | | | LASMA | | | [...] | + + + + + | [facility] | [address] | [place] [address] | | | PATHOLOGY | [address] [...] | + + + + + | [facility] DEPARTMENT | [address] [facility] [facility] | [place] [address] | | | PATHOLOGY | [address] [...] (H) | 60 - 99 mg/dL | [facility] - | | | GLUCOSE, | | [...] [facility] | [address] | [place], [place] | | | [place] [facility] [place] | [facility] | [address] | | | TESTS | | | [...] | + + + + + | [facility] | [address] | [place] [address] | | | PATHOLOGY | [address] [...] | + + + + + | [facility] | [address] | [place] [address] | | | PATHOLOGY | [address] [...] DEPARTMENT OF | [address] | [place] [address] | | | PATHOLOGY | [address] [...] | + + + + + | [facility] DEPARTMENT OF | [address] | [place] [address] | | | PATHOLOGY | [address] | | | + + + + + INR (11/30/2011 12:06 AM PST) + + + + + + | Component | Value | Ref Range | Performed | Pathologist | | | | | At | Signature | + + + + + + | INR | 1.06Comment: | 0.90 - 1.20 INR | [facility] | | | | INR Therapeutic ranges [...] | + + + + + | [facility] | [address] | [place] [address] | | | PATHOLOGY | [address] [...] DEPARTMENT OF | [address] | [place] [address] | | | PATHOLOGY | [address] [...] | + + + + + | [facility] | [address] | [place] [address] | | | PATHOLOGY | [address] [...] DEPARTMENT OF | [address] | [place] [address] | | | PATHOLOGY | [address] [...] | + + + + + | [facility] DEPARTMENT | [address] | [place] [address] | | | PATHOLOGY | [address] | | | + + + + + MAGNESIUM, PLASMA (11/30/2011 12:06 AM PST) + +-------+ + + + | Component | Value | Ref Range | Performed | Pathologist | | | | | At | Signature | + +-------+ + + + | MAGNESIUM,P | 1.8 | 1.8 - 2.5 mg/dL | [facility] | | | LASMA | | | [...] | + + + + + | [facility] | [address] [facility] | [place] [address] | | | PATHOLOGY | [address] [...] | + + + + + | [facility] | [address] | [place] [address] | | | PATHOLOGY | [address] | | | + + + + + SUKHJINDER (KATLYN) BY PCR (11/29/2011 8:23 PM PST) [...] | + + + + + | [facility] DEPARTMENT OF | [address] | [place] [address] | | | PATHOLOGY | [address] [...] | | | POC | | | [place] | | | | | | OF CARE | | | | | | TESTS | | + +---------+ + + + + + | Specimen | + + | | + + + + + + + | Performing | Address | City/State/Zipcode | Phone Number | | Organization | | | | + + + + + | [facility] | [address] | [place], [place] | | | [facility] | [address] | [address] | | | TESTS | | | | + + + + + CAPILLARY BLOOD GLUCOSE, POC (11/29/2011 7:46 AM PST) + +---------+ + + + | Component | Value | Ref Range | Performed | Pathologist | | | | | At | Signature | + +---------+ + + + | BLOOD | 153 (H) | 60 - 99 mg/dL | [facility] - | | | GLUCOSE, | | [...] + + + | [facility] | [address] | [place], [place] | | | [facility] | [address] | [address] | | | TESTS | | | [...] DEPARTMENT OF | [address] | [place] [address] | | | PATHOLOGY | [address] [...] | + + + + + | [facility] | [address] | [place] [address] | | | PATHOLOGY | [address] [...] | + + + + + | [facility] DEPARTMENT OF | [address] | [place] [address] | | | PATHOLOGY | [address] [...] [facility] DEPARTMENT | [address] | [place] [address] | | | PATHOLOGY | [address] [...] | DIFF | Dohle bodies | | [facility] | | | COMMENTS | | | DEPARTMENT | | | | | | OF | | | | | | PATHOLOGY | | + + + + + + + + | Specimen | + + | Blood - Blood | + + + + + | Narrative | Performed At | + + + | * Corrected 11/29/11 01:47: HILARIO STILL, prev report: Gabriella | [facility] | | review pending. | DEPARTMENT OF | | | PATHOLOGY | + + + + + + + + | Performing | Address | City/State/Zipcode | Phone Number | | Organization | | | | + + + + + | [facility] | [address] | [place] [address] | | | PATHOLOGY | [address] [...] | + + + + + | [facility] DEPARTMENT OF | [address] | [place] [address] | | | PATHOLOGY | [address] [...] | + + + + + | [facility] DEPARTMENT | [address] | [place] [address] | | | PATHOLOGY | [address] [...] | + + + + + | [facility] DEPARTMENT | [address] | [place] [address] | | | PATHOLOGY | [address] [...] (H) | 60 - 99 mg/dL | [facility] - | | | GLUCOSE, | | [...] [facility] | [address] | [place], [place] | | | [place] | [address] | [address] | | | TESTS | | | [...] [facility] | [address] | [place], [place] | | | [facility] | [address] | [address] | | | TESTS | | | [...] [facility] | [address] | [place], [place] | | | [facility] | [facility] | [address] | | | TESTS | | | [...] | [facility] | [address] | [place], [place] | | | [facility] | [address] | [address] | | | TESTS | | | [...] + + + | [facility] | [address] | [place], [place] | | | [facility] | [address] | [address] | | | TESTS | | | [...] DEPARTMENT OF | [address] | [place] [address] | | | PATHOLOGY | [address] [...] + + + + | PRODUCT | [id number] | | [facility] | | | UNIT [...] + + + + | BLOOD | [id number] | | [facility] | | | PRODUCT [...] DEPARTMENT OF | [address] | [place] [address] | | | PATHOLOGY | [address] [...] + + + + | PRODUCT | [id number] | | [facility] | | | UNIT [...] + + + + | BLOOD | [id number] | | [facility] | | | PRODUCT [...] | + + + + + | [facility] DEPARTMENT | [address] | [place] [address] | | | PATHOLOGY | [address] [...] (H) | 60 - 99 mg/dL | [facility] - | | | GLUCOSE, | | [...] [facility] | [address] | [place], [place] | | | [facility] | [address] | [address] | | | TESTS | | | [...] + + | * Corrected 11/28/11 04:05: RACHAELNEL COMMENTS, prev report: Slide | [facility] | | review pending. | DEPARTMENT OF | | | PATHOLOGY | + + + + + + + + | Performing | Address | City/State/Zipcode | Phone Number | | Organization | | | | + + + + + | [facility] DEPARTMENT OF | [address] | [place] [address] | | | PATHOLOGY | [address] [...] Corrected 11/28/11 04:05: HILARIO STILL, prev report: Gabriella | [facility] | | review pending. | DEPARTMENT OF | | | PATHOLOGY | + + + + + + + + | Performing | Address | City/State/Zipcode | Phone Number | | Organization | | | | + + + + + | [facility] DEPARTMENT OF | [address] | [place] [address] | | | PATHOLOGY | [address] [...] DEPARTMENT OF | [address] | [place] [address] | | | PATHOLOGY | [address] [...] DEPARTMENT OF | [address] | [place] [address] | | | PATHOLOGY | [address] [...] 04:05: HILARIO STILL, prev report: Slide | [facility] | | review pending. | DEPARTMENT OF | | | PATHOLOGY | + + + + + + + + | Performing | Address | City/State/Zipcode | Phone Number | | Organization | | | | + + + + + | [facility] DEPARTMENT OF | [address] [facility] [facility] | [place] [address] | | | PATHOLOGY | [address] [...] | + + + + + | [facility] DEPARTMENT OF | [address] | [place] [address] | | | PATHOLOGY | [address] [...] | + + + + + | [facility] DEPARTMENT OF | [address] | [place] [address] | | | PATHOLOGY | [address] [...] [facility] DEPARTMENT | [address] | [place] [address] | | | PATHOLOGY | [address] [...] | + + + + + | [facility] | [address] | [place] [address] | | | PATHOLOGY | [address] [...] [facility] | [address] | [place], [place] | | | [facility] | [address] | [address] | | | TESTS | | | [...] | + + + + + | [facility] DEPARTMENT OF | [address] | [place] [address] | | | PATHOLOGY | [address] [...] | + + + + + | [facility] | [address] | [place] [address] | | | PATHOLOGY | [address] [...] [facility] | [address] | [place], [place] | | | [facility] | [address] | [address] | | | TESTS | | | [...] | [facility] | [address] | [place], [place] | | | [facility] | [facility] | [address] | | | TESTS | | | [...] [facility] | [address] | [place], [place] | | | [facility] | [facility] | [address] | | | TESTS | | | [...] | + + + + + | [facility] DEPARTMENT OF | [address] | [place] [address] | | | PATHOLOGY | [address] [...] DEPARTMENT OF | [address] | [place] [address] | | | PATHOLOGY | [address] [...] | + + + + + | [facility] | [address] | [place] [address] | | | PATHOLOGY | [address] | | | + + + + + CBC, WITH DIFFERENTIAL (11/27/2011 12:16 AM PST) + [...] | + + + + + | [facility] DEPARTMENT | [address] | [place] [address] | | | PATHOLOGY | [address] | | | + + + + + PHOSPHORUS, PLASMA (11/27/2011 12:16 AM PST) + +-------+ + + + | Component | Value | Ref Range | Performed | Pathologist | | | | | At | Signature | + +-------+ + + + | PHOSPHORUS, | 3.0 | 2.4 - 4.7 mg/dL | [facility] | | | PLASMA | | | [...] | + + + + + | [facility] | [address] | [place] [address] | | | PATHOLOGY | [address] | | | + + + + + MAGNESIUM, PLASMA (11/27/2011 12:16 AM PST) + +-------+ + + + | Component | Value | Ref Range | Performed | Pathologist | | | | | At | Signature | + +-------+ + + + | MAGNESIUM,P | 2.4 | 1.8 - 2.5 mg/dL | [facility] | | | LASMA | | | [...] | + + + + + | [facility] DEPARTMENT | [address] [facility] | [place] [address] | | | PATHOLOGY | [address] [...] | + + + + + | [facility] | [address] | [place] [address] | | | PATHOLOGY | [address] [...] [facility] | [address] | [place], [place] | | | [facility] | [address] | [address] | | | TESTS | | | [...] | [facility] | [address] | [place], [place] | | | [place] [facility] | [address] | [address] | | | TESTS | | | [...] | | | POC | | | [place] | | | | | | [...] [facility] | [address] | [place], [place] | | | [place] [facility] [place] | [address] | [address] | | | TESTS | | | [...] + + + | [facility] | [address] | [place] [address] | | | LAB-MICRO | | | [...] + + + | [facility] | [address] | [place] [address] | | | LAB-MICRO | | | [...] [facility] | [address] | [place], [place] | | | [facility] | [address] | [address] | | | TESTS | | | [...] | + + + + + | [facility] | [address] | [place] [address] | | | PATHOLOGY | [address] | | | + + + + + BILIRUBIN DIRECT (11/26/2011 12:16 AM PST) + +-------+ + + + | Component | Value | Ref Range | Performed | Pathologist | | | | | At | Signature | + +-------+ + + + | BILIRUBIN | 0.1 | <0.4 mg/dL | [facility] | | | DIRECT | | | [...] | + + + + + | [facility] DEPARTMENT OF | [address] | [place] [address] | | | PATHOLOGY | [address] [...] | + + + + + | [facility] DEPARTMENT OF | [address] | [place] [address] | | | PATHOLOGY | [address] [...] | + + + + + | [facility] DEPARTMENT | [address] | [place] [address] | | | PATHOLOGY | [address] | | | + + + + + MAGNESIUM, PLASMA (11/26/2011 12:16 AM PST) + +-------+ + + + | Component | Value | Ref Range | Performed | Pathologist | | | | | At | Signature | + +-------+ + + + | MAGNESIUM,P | 2.1 | 1.8 - 2.5 mg/dL | [facility] | | | LASMA | | | [...] | + + + + + | [facility] | [address] | [place] [address] | | | PATHOLOGY | [address] [...] | + + + + + | [facility] DEPARTMENT OF | [address] | [place] [address] | | | PATHOLOGY | [address] [...] | + + + + + | [facility] | [address] | [place] [address] | | | PATHOLOGY | [address] [...] DEPARTMENT OF | [address] | [place] [address] | | | PATHOLOGY | [address] [...] [facility] | [address] | [place], [place] | | | [facility] | [address] | [address] | | | TESTS | | | [...] [facility] | [address] | [place], [place] | | | [place] [facility] [place] | [address] | [address] | | | TESTS | | | [...] [facility] | [address] | [place], [place] | | | [facility] | [address] | [address] | | | TESTS | | | [...] [facility] | [address] | [place], [place] | | | [place] [facility] | [address] | [address] | | | TESTS | | | [...] | + + + + + | [facility] | [address] | [place] [address] | | | PATHOLOGY | [address] [...] DEPARTMENT OF | [address] | [place] [address] | | | PATHOLOGY | [address] [...] DEPARTMENT OF | [address] | [place] [address] | | | PATHOLOGY | [address] [...] | + + + + + | [facility] DEPARTMENT OF | [address] | [place] [address] | | | PATHOLOGY | [address] [...] [facility] DEPARTMENT | [address] | [place] [address] | | | PATHOLOGY | [address] [...] DEPARTMENT OF | [address] | [place] [address] | | | PATHOLOGY | [address] [...] [facility] | [address] | [place], [place] | | | [facility] | [address] | [address] | | | TESTS | | | [...] [facility] | [address] | [place], [place] | | | [place] | [address] | [address] | | | TESTS | | | [...] [facility] | [address] | [place], [place] | | | [facility] | [address] | [address] | | | TESTS | | | [...] [facility] | [address] | [place], [place] | | | [place] [facility] | [facility] | [address] | | | TESTS | | | [...] | + + + + + | [facility] | [address] | [place] [address] | | | PATHOLOGY | [address] [...] DEPARTMENT OF | [address] | [place] [address] | | | PATHOLOGY | [address] [...] | + + + + + | [facility] DEPARTMENT | [address] | [place] [address] | | | PATHOLOGY | [address] [...] | + + + + + | [facility] DEPARTMENT OF | [address] | [place] [address] | | | PATHOLOGY | [address] [...] | + + + + + | [facility] DEPARTMENT | [address] | [place] [address] | | | PATHOLOGY | [address] [...] DEPARTMENT OF | [address] | [place] [address] | | | PATHOLOGY | [address] [...] + + + | [facility] | [address] | [place], [place] | | | [place] [facility] [facility] | [address] | [address] | | | TESTS | | | [...] intrathecalchemotherapy. | | | | | | COMPUTER SYSTEMS INTEGRATOR: | | | | | | Carmen [...] | | | | | listed below, Dr Lamonte | | | | | | Ang the | | | | | | attendingradiologist, | | | | | | was present for the | | | | | | critical portions of the | | | | | | procedureas described | | | | | | in this note. | | | | | | Attending Radiologists: | | | | | | Arabella rFy, | | | | | | ClintAuthor: Luis | | | | | | [...] Arabella | | | | | | Ang 11/23/2011 15:04 | | | | | | PM Pending final | | | | | | approval / Luis | | | | | | Carmen 11/23/2011 14:49 | | | | | | PM Preliminary / | | | | | | Luis Morales 11/23/2011 | | | | | | [...] DEPARTMENT OF | [address] | [place] [address] | | | PATHOLOGY | [address] [...] | + + + + + | [facility] DEPARTMENT | [address] | [place] [address] | | | PATHOLOGY | [address] [...] DEPARTMENT OF | [address] | [place] [address] | | | PATHOLOGY | [address] [...] | + + + + + | [facility] DEPARTMENT OF | [address] | [place] [address] | | | PATHOLOGY | [address] [...] DEPARTMENT OF | [address] | [place] [address] | | | PATHOLOGY | [address] [...] [facility] | [address] | [place], [place] | | | [facility] | [address] | [address] | | | TESTS | | | [...] [facility] | [address] | [place], [place] | | | [facility] [facility] [facility] | [address] | [address] | | | TESTS | | | [...] | + +---------+ + + + | DOMINIQUEO # | 0.0 | <0.3 | [facility] [...] Corrected 11/23/11 | [facility] | | 04:07: RACHAELNEL COMMENTS, prev report: Slide review pending. WBC | DEPARTMENT OF | | Phoned. Readback. | PATHOLOGY | + + + + + + + + | Performing | Address | City/State/Zipcode | Phone Number | | Organization | | | | + + + + + | [facility] | [address] | [place] [address] | | | PATHOLOGY | [address] [...] DEPARTMENT OF | [address] | [place] [address] | | | PATHOLOGY | [address] [...] | + + + + + | [facility] DEPARTMENT OF | [address] | [place] [address] | | | PATHOLOGY | [address] | | | + + + + + INR (11/23/2011 12:02 AM PST) + + + + + + | Component | Value | Ref Range | Performed | Pathologist | | | | | At | Signature | + + + + + + | INR | 1.04Comment: | 0.90 - 1.20 INR | [facility] | | | | INR Therapeutic ranges [...] | + + + + + | [facility] | [address] | [place] [address] | | | PATHOLOGY | [address] [...] Corrected 11/23/11 | [facility] | | 04:07: RACHAELNEL COMMENTS, prev report: Slide review pending. WBC | DEPARTMENT OF | | Phoned. Readback. | PATHOLOGY | + + + + + + + + | Performing | Address | City/State/Zipcode | Phone Number | | Organization | | | | + + + + + | [facility] DEPARTMENT OF | [address] | [place] [address] | | | PATHOLOGY | [address] [...] | + + + + + | [facility] | [address] | [place] [address] | | | PATHOLOGY | [address] | | | + + + + + ALLEN DIRECT (11/23/2011 12:02 AM PST) + +-------+ + + + | Component | Value | Ref Range | Performed | Pathologist | | | | | At | Signature | + +-------+ + + + | BILIRUBIN | 0.2 | <0.4 mg/dL | [facility] | | | DIRECT | | | [...] | + + + + + | [facility] DEPARTMENT OF | [address] | [place] [address] | | | PATHOLOGY | [address] [...] | + + + + + | [facility] DEPARTMENT OF | [address] | [place] [address] | | | PATHOLOGY | [address] | | | + + + + + MAGNESIUM, PLASMA (11/23/2011 12:02 AM PST) + +-------+ + + + | Component | Value | Ref Range | Performed | Pathologist | | | | | At | Signature | + +-------+ + + + | MAGNESIUM,P | 1.8 | 1.8 - 2.5 mg/dL | [facility] | | | LASMA | | | [...] | + + + + + | [facility] | [address] | [place] [address] | | | PATHOLOGY | [address] [...] | + + + + + | [facility] | [address] | [place] [address] | | | PATHOLOGY | [address] [...] | + + + + + | [facility] | [address] | [place] [address] | | | PATHOLOGY | [address] [...] 12 | | | | | | -[id number] all | | | | | | ZOFIA | | | | | | [id number] | | | | | | MATTHEW SOUZA [facility]-[id number] | | | | | | WRD: [...] Bowles | | | | | | ClintPathologistElectroni [...] | + + + + + | [facility] DEPARTMENT | [address] | [place] [address] | | | PATHOLOGY | [address] [...] (H) | 60 - 99 mg/dL | [facility] - | | | GLUCOSE, | | [...] H[facility]LEY | [address] | [place], [place] | | | [facility] | [address] | [address] | | | TESTS | | | [...] MARQUAM | [address] | [place], [place] | | | [facility] | [address] | [address] | | | TESTS | | | [...] JUSTINAM | [address] | [place], [place] | | | [facility] | [address] | [address] | | | TESTS | | | | + + + + + CAPILLARY BLOOD GLUCOSE, POC (11/22/2011 8:27 AM PST) + +---------+ + + + | Component | Value | Ref Range | Performed | Pathologist | | | | | At | Signature | + +---------+ + + + | BLOOD | 108 (H) | 60 - 99 mg/dL | [facility] - | | | GLUCOSE, | | [...] HENSLEY | [address] | [place], [place] | | | [place] [facility] | [facility] | [address] | | | TESTS | | | [...] | + +---------+ + + + | DOMINIQUEO # | 0.0 | <0.3 | [facility] [...] [facility] DEPARTMENT | [address] | [place] [address] | | | PATHOLOGY | [address] | | | + + + + + URIC ACID, PLASMA (11/22/2011 12:05 AM PST) + +-------+ + + + | Component | Value | Ref Range | Performed | Pathologist | | | | | At | Signature | + +-------+ + + + | URIC ACID, | 3.5 | 2.5 - 6.2 mg/dL | [facility] [...] | + + + + + | [facility] DEPARTMENT OF | [address] | [place] [address] | | | PATHOLOGY | [address] [...] + | [facility] DEPARTMENT OF | [address] | [place] [address] | | | PATHOLOGY | [address] [...] | + + + + + | [facility] | [address] [address] | [place] [address] | | | PATHOLOGY | [address] | | | + + + + + PHOSPHORUS, PLASMA (11/22/2011 12:05 AM PST) + +-------+ + + + | Component | Value | Ref Range | Performed | Pathologist | | | | | At | Signature | + +-------+ + + + | PHOSPHORUS, | 3.1 | 2.4 - 4.7 mg/dL | [facility] | | | PLASMA | | | [...] | + + + + + | [facility] DEPARTMENT OF | [address] | [place] [address] | | | PATHOLOGY | [address] [...] | + + + + + | [facility] DEPARTMENT OF | [address] | [place] [address] | | | PATHOLOGY | [address] [...] | + + + + + | [facility] DEPARTMENT OF | [address] | [place] [address] | | | PATHOLOGY | [address] [...] MARQUAM | [address] | [place], [place] | | | [facility] | [facility] | [address] | | | TESTS | | | [...] HENSLEY | [address] | [place], [place] | | | [facility] | [address] | [address] | | | TESTS | | | [...] MARQUAM | [address] | [place], [place] | | | [facility] | [address] | [address] | | | TESTS | | | [...] SHELLIE | [address] | [place], [place] | | | [facility] | [address] | [address] | | | TESTS | | | [...] | + + + + + | [facility] DEPARTMENT OF | [address] | [place] [address] | | | PATHOLOGY | [address] [...] | + + + + + | [facility] | [address] | [place] [address] | | | PATHOLOGY | [address] [...] DEPARTMENT OF | [address] | [place] [address] | | | PATHOLOGY | [address] [...] | + + + + + | [facility] DEPARTMENT | [address] | [place] [address] | | | PATHOLOGY | [address] [...] 04:50: HILARIO COMMENTS, prev report: Slide | [facility] | | review pending. | DEPARTMENT OF | | | PATHOLOGY | + + + + + + + + | Performing | Address | City/State/Zipcode | Phone Number | | Organization | | | | + + + + + | [facility] DEPARTMENT OF | [address] | [place] [address] | | | PATHOLOGY | [address] [...] | + + + + + | [facility] | [address] | [place] [address] | | | PATHOLOGY | [address] | | | + + + + + MAGNESIUM, PLASMA (11/21/2011 12:40 AM PST) + +---------+ + + + | Component | Value | Ref Range | Performed | Pathologist | | | | | At | Signature | + +---------+ + + + | MAGNESIUM,P | 1.7 (L) | 1.8 - 2.5 mg/dL | [facility] | | | LASMA | | | [...] | + + + + + | [facility] DEPARTMENT OF | [address] | [place] [address] | | | PATHOLOGY | [address] [...] DEPARTMENT OF | [address] | [place] [address] | | | PATHOLOGY | [address] [...] SHELLIE | [address] | [place], [place] | | | [facility] | [address] | [address] | | | TESTS | | | [...] HENSLEY | [address] | [place], [place] | | | [facility] [place] | [address] | [address] | | | TESTS | | | [...] MARQUAM | [address] | [place], [place] | | | [facility] | [address] | [address] | | | TESTS | | | [...] JUSTINAM | [address] | [place], [place] | | | [facility] | [address] | [address] | | | TESTS | | | [...] | + + + + + | [facility] | [address] | [place] [address] | | | PATHOLOGY | [address] [...] + + | [facility] DEPARTMENT OF | [address] | [place] [address] | | | PATHOLOGY | [address] [...] DEPARTMENT OF | [address] | [place] [address] | | | PATHOLOGY | [address] [...] | + + + + + | [facility] DEPARTMENT OF | [address] | [place] [address] | | | PATHOLOGY | [address] | | | + + + + + PHOSPHORUS, PLASMA (11/20/2011 12:10 AM PST) + +-------+ + + + | Component | Value | Ref Range | Performed | Pathologist | | | | | At | Signature | + +-------+ + + + | PHOSPHORUS, | 3.1 | 2.4 - 4.7 mg/dL | [facility] | | | PLASMA | | | [...] | + + + + + | [facility] DEPARTMENT OF | [address] [facility] | [place] [address] | | | PATHOLOGY | [address] [...] | + + + + + | [facility] | [address] | [place] [address] | | | PATHOLOGY | [address] [...] | + + + + + | [facility] | [address] | [place] [address] | | | PATHOLOGY | [address] [...] MARQUAM | [address] | [place], [place] | | | [facility] | [address] | [address] | | | TESTS | | | [...] | | | POC | | | [place] | | | | | | [...] MARQUAM | [address] | [place], [place] | | | [facility] | [facility] | [address] | | | TESTS | | | [...] HENSLEY | [address] | [place], [place] | | | [facility] | [address] | [address] | | | TESTS | | | [...] + + + + | [facility] | [address] | [place], [place] | | | [facility] | [address] | [address] | | | TESTS | | | [...] DEPARTMENT OF | [address] | [place] [address] | | | PATHOLOGY | [address] [...] | + + + + + | [facility] DEPARTMENT | [address] | [place] [address] | | | PATHOLOGY | [address] | | | + + + + + CHOLESTEROL TOTAL, PLASMA (11/19/2011 12:01 AM PST) + + + + + + | Component | Value | Ref Range | Performed | Pathologist | | | | | At | Signature | + + + + + + | CHOLESTEROL | 156Comment: | <200 mg/dL | [facility] | | | (LAB) | Cholesterol Reference [...] | + + + + + | [facility] | [address] | [place] [address] | | | PATHOLOGY | [address] [...] | + + + + + | [facility] DEPARTMENT OF | [address] | [place] [address] | | | PATHOLOGY | [address] | | | + + + + + BILIRUBIN DIRECT (11/19/2011 12:01 AM PST) + +-------+ + + + | Component | Value | Ref Range | Performed | Pathologist | | | | | At | Signature | + +-------+ + + + | BILIRUBIN | 0.1 | <0.4 mg/dL | [facility] | | | DIRECT | | | [...] | + + + + + | [facility] DEPARTMENT OF | [address] | [place] [address] | | | PATHOLOGY | [address] [...] | + + + + + | [facility] | [address] | [place] [address] | | | PATHOLOGY | [address] [...] | + + + + + | [facility] DEPARTMENT OF | [address] | [place] [address] | | | PATHOLOGY | [address] [...] | + + + + + | [facility] DEPARTMENT OF | [address] | [place] [address] | | | PATHOLOGY | [address] [...] | + + + + + | [facility] DEPARTMENT | [address] | [place] [address] | | | PATHOLOGY | [address] [...] (H) | 60 - 99 mg/dL | [facility] - | | | GLUCOSE, | | [...] HENSLEY | [address] | [place], [place] | | | [facility] | [address] | [address] | | | TESTS | | | [...] | + + + + + | [facility] DEPARTMENT | [address] | [place] [address] | | | PATHOLOGY | [address] [...] DEPARTMENT OF | [address] | [place] [address] | | | PATHOLOGY | [address] [...] | + + + + + | [facility] | [address] | [place] [address] | | | PATHOLOGY | [address] [...] DEPARTMENT OF | [address] | [place] [address] | | | PATHOLOGY | [address] [...] DEPARTMENT OF | [address] | [place] [address] | | | PATHOLOGY | [address] [...] | + + + + + | [facility] DEPARTMENT | [address] | [place] [address] | | | PATHOLOGY | [address] [...] (H) | 60 - 99 mg/dL | [facility] - | | | GLUCOSE, | | [...] + + + | DE[facility]RE [facility] | [address] | [place], [place] | | | [facility] | [address] | [address] | | | TESTS | | | [...] | | | | | | Sonal Sandoval | | | | | | ClintAuthor: [...] HENSLEY | [address] | [place], [place] | | | [facility] | [address] | [address] | | | TESTS | | | [...] MARQUAM | [address] | [place], [place] | | | [facility] | [address] | [address] | | | TESTS | | | [...] + + | [facility] DEPARTMENT | [address] | [place] [address] | | | PATHOLOGY | [address] [...] | + + + + + | [facility] | [address] | [place] [address] | | | PATHOLOGY | [address] [...] | + + + + + | [facility] DEPARTMENT | [address] | [place] [address] | | | PATHOLOGY | [address] [...] | + + + + + | [facility] DEPARTMENT OF | [address] | [place] [address] | | | PATHOLOGY | [address] [...] | [place] DEPARTMENT OF | [address] | [place] [address] | | | PATHOLOGY | [address] [...] | + + + + + | [facility] DEPARTMENT OF | [address] | [place] [address] | | | PATHOLOGY | [address] [...] | + + + + + | [facility] | [address] [facility] | [place] [address] | | | PATHOLOGY | [address] [...] | + + + + + | [facility] | [address] | [place] [address] | | | PATHOLOGY | [address] [...] DEPARTMENT OF | [address] | [place] [address] | | | PATHOLOGY | [address] [...] | + + + + + | [facility] DEPARTMENT | [address] | [place] [address] | | | PATHOLOGY | [address] [...] | + + + + + | [facility] | [address] | [place] [address] | | | PATHOLOGY | [address] [...] | | | | | | Yifan Camilo, | | | | | | M.D. / Hematopathologist | | | | | [...] : | | | | | | -13257 CFM 0 | | | | | | C ZOFIA | | | | | | [id number] | | | | | | -MARICEL WASHINGTON | | | | | | [id number] WRD: | | | | | | [...] | + + + + + | [facility] | [address] | [place] [address] | | | PATHOLOGY | [address] [...] - MARQU[facility] | [address] | [place], [place] | | | [facility] | [address] | [address] | | | TESTS | | | [...] | + + + + + | [facility] | [address] | [place] [address] | | | PATHOLOGY | [address] [...] | + + + + + | [facility] DEPARTMENT OF | [address] | [place] [address] | | | PATHOLOGY | [address] [...] DEPARTMENT OF | [address] | [place] [address] | | | PATHOLOGY | [address] [...] | + + + + + | [facility] | [address] | [place] [address] | | | PATHOLOGY | [address] [...] SHELLIE | [address] | [place], [place] | | | [facility] | [address] | [address] | | | TESTS | | | [...] + | [facility] | [address] | [place], [place] | | | [facility] | [address] | [address] | | | TESTS | | | [...] | + + + + + | [facility] DEPARTMENT OF | [address] | [place] [address] | | | PATHOLOGY | [address] [...] | + + + + + | [facility] | [address] | [place] [address] | | | PATHOLOGY | [address] [...] DEPARTMENT OF | [address] | [place] [address] | | | PATHOLOGY | [address] [...] | + + + + + | [facility] DEPARTMENT | [address] | [place] [address] | | | PATHOLOGY | [address] [...] (H) | 60 - 99 mg/dL | [facility] - | | | GLUCOSE, | | [...] HENSLEY | [address] | [place], [place] | | | [facility] [place] | [address] | [address] | | | TESTS | | | [...] + + | [facility] DEPARTMENT OF | [address] | [place] [address] | | | PATHOLOGY | [address] [...] | + + + + + | [facility] DEPARTMENT | [address] | [place] [address] | | | PATHOLOGY | [address] | | | + + + + + PHOSPHORUS, PLASMA (11/17/2011 6:13 AM PST) + +-------+ + + + | Component | Value | Ref Range | Performed | Pathologist | | | | | At | Signature | + +-------+ + + + | PHOSPHORUS, | 4.6 | 2.4 - 4.7 mg/dL | [facility] | | | PLASMA | | | [...] | + + + + + | [facility] | [address] | [place] [address] | | | PATHOLOGY | [address] | | | + + + + + LDH TOTAL, PLASMA (11/17/2011 6:13 AM PST) + +-------+ + + + | Component | Value | Ref Range | Performed | Pathologist | | | | | At | Signature | + +-------+ + + + | LD TOTAL, | 204 | 110 - 205 U/L | [facility] | | | PLASMA | | | [...] | + + + + + | [facility] DEPARTMENT OF | [address] | [place] [address] | | | PATHOLOGY | [address] [...] + | [facility] DEPARTMENT OF | [address] [facility] | [place] [address] | | | PATHOLOGY | [address] [...] | + + + + + | [facility] DEPARTMENT | [address] | [place] [address] | | | PATHOLOGY | [address] | | | + + + + + MAGNESIUM, PLASMA (11/17/2011 12:26 AM PST) + +-------+ + + + | Component | Value | Ref Range | Performed | Pathologist | | | | | At | Signature | + +-------+ + + + | MAGNESIUM,P | 1.9 | 1.8 - 2.5 mg/dL | [facility] | | | LASMA | | | [...] | + + + + + | [facility] DEPARTMENT | [address] [facility] [facility] | [place] [address] | | | PATHOLOGY | [address] [...] | + + + + + | [facility] DEPARTMENT OF | [address] | [place] [address] | | | PATHOLOGY | [address] [...] (H) | 60 - 99 mg/dL | [facility] | | | PLASMA | | | [...] | + + + + + | [facility] | [address] | [place] [address] | | | PATHOLOGY | [address] [...] DEPARTMENT OF | [address] | [place] [address] | | | PATHOLOGY | [address] [...] [facility] DEPARTMENT | [address] | [place] [address] | | | PATHOLOGY | [address] [...] | + + + + + | [facility] | [address] | [place] [address] | | | PATHOLOGY | [address] [...] SHELLIE | [address] | [place], [place] | | | [facility] | [address] | [address] | | | TESTS | | | [...] | + + + + + | [facility] DEPARTMENT OF | [address] | [place] [address] | | | PATHOLOGY | [address] [...] | + + + + + | [facility] DEPARTMENT OF | [address] | [place] [address] | | | PATHOLOGY | [address] [...] | + + + + + | [facility] DEPARTMENT | [address] | [place] [address] | | | PATHOLOGY | [address] | | | + + + + + URIC ACID, PLASMA (11/16/2011 6:05 PM PST) + +-------+ + + + | Component | Value | Ref Range | Performed | Pathologist | | | | | At | Signature | + +-------+ + + + | URIC ACID, | 4.3 | 2.5 - 6.2 mg/dL | [facility] | | | PLASMA | | | [...] | + + + + + | [facility] | [address] | [place] [address] | | | PATHOLOGY | [address] [...] DEPARTMENT OF | [address] | [place] [address] | | | PATHOLOGY | [address] [...] | + + + + + | [facility] DEPARTMENT | [address] | [place] [address] | | | PATHOLOGY | [address] [...] (H) | 60 - 99 mg/dL | [facility] - | | | GLUCOSE, | | [...] SHELLIE | [address] | [place], [place] | | | [facility] | [address] | [address] | | | TESTS | | | [...] SHELLIE | [address] | [place], [place] | | | [facility] | [facility] | [address] | | | TESTS | | | [...] | + + + + + | [facility] DEPARTMENT OF | [address] | [place] [address] | | | PATHOLOGY | [address] [...] | + + + + + | [facility] DEPARTMENT OF | [address] | [place] [address] | | | PATHOLOGY | [address] [...] | + + + + + | [facility] | [address] | [place] [address] | | | PATHOLOGY | [address] [...] DEPARTMENT OF | [address] | [place] [address] | | | PATHOLOGY | [address] [...] + + + + + | [facility] | [address] | [place], [place] | | | [facility] | [address] | [address] | | | TESTS | | | [...] | + + + + + | [facility] | [address] | [place] [address] | | | PATHOLOGY | [address] [...] DEPARTMENT OF | [address] | [place] [address] | | | PATHOLOGY | [address] [...] | + + + + + | [facility] DEPARTMENT OF | [address] | [place] [address] | | | PATHOLOGY | [address] | | | + + + + + MAGNESIUM, PLASMA (11/16/2011 6:35 AM PST) + +-------+ + + + | Component | Value | Ref Range | Performed | Pathologist | | | | | At | Signature | + +-------+ + + + | MAGNESIUM,P | 2.1 | 1.8 - 2.5 mg/dL | [facility] | | | LASMA | | | [...] | + + + + + | [facility] | [address] | [place] [address] | | | PATHOLOGY | [address] | | | + + + + + MAGNESIUM, PLASMA (11/16/2011 12:13 AM PST) + +-------+ + + + | Component | Value | Ref Range | Performed | Pathologist | | | | | At | Signature | + +-------+ + + + | MAGNESIUM,P | 1.9 | 1.8 - 2.5 mg/dL | [facility] | | | JONOMA | | | DEPARTMENT | | | | | | OF | | | | | | PATHOLOGY | | + +-------+ + + + + + | Specimen | + + | | + + + + + + + | Performing | Address | City/State/Zipcode | Phone Number | | Organization | | | | + + + + + | [facility] DEPARTMENT OF | [address] | [place] [address] | | | PATHOLOGY | [address] [...] | + + + + + | [facility] DEPARTMENT OF | [address] | [place] [address] | | | PATHOLOGY | [address] | | | + + + + + CHOLESTEROL TOTAL, PLASMA (11/16/2011 12:13 AM PST) + + + + + + | Component | Value | Ref Range | Performed | Pathologist | | | | | At | Signature | + + + + + + | CHOLESTEROL | 154Comment: | <200 mg/dL | [facility] | | | (LAB) | Cholesterol Reference [...] | + + + + + | [facility] | [address] | [place] [address] | | | PATHOLOGY | [address] [...] | + + + + + | [facility] DEPARTMENT OF | [address] | [place] [address] | | | PATHOLOGY | [address] [...] | + + + + + | [facility] | [address] [facility] [facility] | [place] [address] | | | PATHOLOGY | [address] [...] | + + + + + | [facility] | [address] | [place] [address] | | | PATHOLOGY | [address] [...] | + + + + + | [facility] | [address] | [place] [address] | | | PATHOLOGY | [address] [...] | + + + + + | [facility] DEPARTMENT OF | [address] | [place] [address] | | | PATHOLOGY | [address] [...] DEPARTMENT OF | [address] | [place] [address] | | | PATHOLOGY | [address] [...] | + + + + + | [facility] DEPARTMENT OF | [address] | [place] [address] | | | PATHOLOGY | [address] [...] | + + + + + | [facility] | [address] | [place] [address] | | | PATHOLOGY | [address] | | | + + + + + TRANSTHORACIC ECHOCARDIOGRAM, ADULT (11/16/2011 12:00 AM PST) + + + | Narrative | Performed At | + + + | | | + + + + + | Transcriptions | + + | Jose M Orantes - 11/17/2011 1:30 PM PST | + [...] [facility] | [address] | [place], [place] | | | [facility] | [address] | [address] | | | TESTS | | | [...] [facility] DEPARTMENT | [address] | [place] [address] | | | PATHOLOGY | [address] [...] + | [facility] DE[facility] | [address] | [place] [address] | | | PATHOLOGY | [address] [...] | + + + + + | [facility] DEPARTMENT OF | [address] | [place] [address] | | | PATHOLOGY | [address] [...] DEPARTMENT OF | [address] | [place] [address] | | | PATHOLOGY | [address] [...] | + + + + + | [facility] DEPARTMENT | [address] | [place] [address] | | | PATHOLOGY | [address] [...] (H) | 60 - 99 mg/dL | [facility] - | | | GLUCOSE, | | [...] [facility] | [address] | [place], [place] | | | [facility] | [address] | [address] | | | TESTS | | | [...] [facility] | [address] | [place], [place] | | | [facility] | [address] | [address] | | | TESTS | | | [...] | + + + + + | [facility] DEPARTMENT OF | [address] | [place] [address] | | | PATHOLOGY | [address] [...] | + + + + + | [facility] | [address] | [place] [address] | | | PATHOLOGY | [address] [...] | + + + + + | [facility] DEPARTMENT OF | [address] | [place] [address] | | | PATHOLOGY | [address] [...] | + + + + + | [facility] DEPARTMENT | [address] | [place] [address] | | | PATHOLOGY | [address] [...] (H) | 60 - 99 mg/dL | [facility] - | | | GLUCOSE, | | [...] [facility] | [address] | [place], [place] | | | [facility] | [facility] | [address] | | | TESTS | | | [...] | + +---------+ + + + | DOMINIQUEO # | 0.0 | <0.3 | [facility] [...] | + + + + + | [facility] DEPARTMENT OF | [address] | [place] [address] | | | PATHOLOGY | [address] [...] 384 | 150 - 400 K/cu | [facility] | | | COUNT | | mm [...] | + + + + + | [facility] DEPARTMENT OF | [address] | [place] [address] | | | PATHOLOGY | [address] [...] | + + + + + | [facility] DEPARTMENT | [address] | [place] [address] | | | PATHOLOGY | [address] | | | + + + + + MAGNESIUM, PLASMA (11/15/2011 6:09 AM PST) + +-------+ + + + | Component | Value | Ref Range | Performed | Pathologist | | | | | At | Signature | + +-------+ + + + | MAGNESIUM,P | 1.9 | 1.8 - 2.5 mg/dL | [facility] | | | LASMA | | | [...] | + + + + + | [facility] | [address] | [place] [address] | | | PATHOLOGY | [address] [...] DEPARTMENT OF | [address] | [place] [address] | | | PATHOLOGY | [address] [...] | + + + + + | [facility] | [address] | [place] [address] | | | PATHOLOGY | [address] [...] DEPARTMENT OF | [address] | [place] [address] | | | PATHOLOGY | [address] [...] | + + + + + | [facility] DEPARTMENT OF | [address] | [place] [address] | | | PATHOLOGY | [address] [...] | + + + + + | [facility] | [address] | [place] [address] | | | PATHOLOGY | [address] [...] DEPARTMENT OF | [address] | [place] [address] | | | PATHOLOGY | [address] [...] [facility] DEPARTMENT | [address] | [place] [address] | | | PATHOLOGY | [address] [...] | + + + + + | [facility] | [address] | [place] [address] | | | PATHOLOGY | [address] [...] + + | Performing | Address | City/State/[facility] | Phone Number | | Organization | | | | + + + + + | [facility] | [address] | [place], [place] | | | [facility] | [address] | [address] | | | TESTS | | | [...] [facility] | [address] | [place], [place] | | | [facility] | [address] | [address] | | | TESTS | | | [...] [facility] DEPARTMENT | [address] | [place] [address] | | | PATHOLOGY | [address] [...] | + + + + + | [facility] DEPARTMENT OF | [address] | [place] [address] | | | PATHOLOGY | [address] [...] | + + + + + | [facility] DEPARTMENT OF | [address] | [place] [address] | | | PATHOLOGY | [address] [...] | + + + + + | [facility] DEPARTMENT | [address] | [place] [address] | | | PATHOLOGY | [address] [...] (H) | 60 - 99 mg/dL | [facility] - | | | GLUCOSE, | | [...] + + + | DEIRDRE HENSLEY | [address] | [place], [place] | | | [facility] | [address] | [address] | | | TESTS | | | [...] 4.0 | 2.4 - 4.7 mg/dL | [facility] | | | PLASMA | | | [...] | + + + + + | [facility] DEPARTMENT OF | [address] | [place] [address] | | | PATHOLOGY | [address] [...] | + + + + + | [facility] DEPARTMENT OF | [address] | [place] [address] | | | PATHOLOGY | [address] [...] | + + + + + | [facility] | [address] | [place] [address] | | | PATHOLOGY | [address] [...] | + + + + + | [facility] | [address] | [place] [address] | | | PATHOLOGY | [address] | | | + + + + + X-RAY PORTABLE CHEST 1 VIEW (11/14/2011 1:35 PM PST) + + + + + + | Component | Value | Ref Range | Performed | Pathologist | | | | | At | Signature | + + + + + + | X-RAY | STUDY:WI CHEST 1 VIEW | | | | [...] SHELLIE | [address] | [place], [place] | | | [facility] | [address] | [address] | | | TESTS | | | [...] | + + + + + | [facility] | [address] | [place] [address] | | | PATHOLOGY | [address] [...] | + + + + + | [facility] DEPARTMENT | [address] | [place] [address] | | | PATHOLOGY | [address] [...] (H) | 2.5 - 6.2 mg/dL | [facility] | | | PLASMA | | | [...] | + + + + + | [facility] DEPARTMENT OF | [address] | [place] [address] | | | PATHOLOGY | [address] [...] DEPARTMENT OF | [address] | [place] [address] | | | PATHOLOGY | [address] | | | + + + + + CAPILLARY BLOOD GLUCOSE, POC (11/14/2011 9:35 AM PST) + +-------+ + + + | Component | Value | Ref Range | Performed | Pathologist | | | | | At | Signature | + +-------+ + + + | BLOOD | 83 | 60 - 99 mg/dL | [facility] [...] + + + + + | OH[facility] HENSLEY | [address] | [place], [place] | | | [facility] | [facility] | [address] | | | TESTS | | | [...] | + + + + + | [facility] | [address] | [place] [address] | | | PATHOLOGY | [address] [...] | + + + + + | [facility] | [address] | [place] [address] | | | PATHOLOGY | [address] [...] | + + + + + | [facility] DEPARTMENT OF | [address] | [place] [address] | | | PATHOLOGY | [address] [...] | + + + + + | [facility] DEPARTMENT OF | [address] | [place] [address] | | | PATHOLOGY | [address] [...] Recd | 13 - 48 U/L | [facility] [...] | + + + + + | [facility] | [address] | [place] [address] | | | PATHOLOGY | [address] [...] DEPARTMENT OF | [address] | [place] [address] | | | PATHOLOGY | [address] [...] consider | | | intensifying therapy [facility] ([facility]) | | | [facility] [place] [address] [facility] | | | [place] [address] | | + + + + + + + + | Performing | Address | City/State/Zipcode | Phone Number | | Organization | | | | + + + + + | [facility] | [address] [facility] | [place] [address] | | | LABORATORY | | | [...] DEPARTMENT OF | [address] | [place] [address] | | | PATHOLOGY | [address] [...] | + + + + + | [facility] | [address] | [place] [address] | | | PATHOLOGY | [address] [...] DEPARTMENT OF | [address] | [place] [address] | | | PATHOLOGY | [address] [...] | | | POC | | | [place] | | | | | | [...] SHELLIE | [address] | [place], [place] | | | [facility] | [facility] | [address] | | | TESTS | | | | + + + + + CAPILLARY BLOOD GLUCOSE, POC (11/14/2011 12:11 AM PST) + +-------+ + + + | Component | Value | Ref Range | Performed | Pathologist | | | | | At | Signature | + +-------+ + + + | BLOOD | 78 | 60 - 99 mg/dL | [facility] - | | | GLUCOSE, | | [...] MAR[facility] | [address] | [place], [place] | | | [facility] | [address] | [address] | | | TESTS | | | [...] HENSLEY | [address] | [place], [place] | | | [facility] | [facility] | [address] | | | TESTS | | | [...] + + + + | [facility] | [address] | [place] | | | [facility] | [address] | [address] | | | TESTS | | | [...] | + + + + + | [facility] DEPARTMENT OF | [address] | [place] [address] | | | PATHOLOGY | [address] [...] | + + + + + | [facility] | [address] | [place] [address] | | | PATHOLOGY | [address] [...] | + + + + + | [facility] DEPARTMENT OF | [address] | [place] [address] | | | PATHOLOGY | [address] [...] | + + + + + | [facility] DEPARTMENT OF | [address] | [place] [address] | | | PATHOLOGY | [address] | | | + + + + + INR (11/13/2011 8:10 PM PST) + + + + + + | Component | Value | Ref Range | Performed | Pathologist | | | | | At | Signature | + + + + + + | INR | 1.16Comment: | 0.90 - 1.20 INR | [facility] | | | | INR Therapeutic ranges [...] | + + + + + | [facility] | [address] | [place] [address] | | | PATHOLOGY | [address] [...] SHELLIE | [address] | [place], [place] | | | [facility] | [facility] | [address] | | | TESTS | | | | + + + + + CAPILLARY BLOOD GLUCOSE, POC (11/13/2011 7:02 PM PST) + +-------+ + + + | Component | Value | Ref Range | Performed | Pathologist | | | | | At | Signature | + +-------+ + + + | BLOOD | 72 | 60 - 99 mg/dL | [facility] - | | | GLUCOSE, | | [...] JUSTINAM | [address] | [place], [place] | | | [facility] | [address] | [address] | | | TESTS | | | [...] HENSLEY | [address] | [place], [place] | | | [facility] | [facility] | [address] | | | TESTS | | | | + + + + + VRE (KATLYN) BY PCR (11/13/2011 6:29 PM PST) + [...] | + + + + + | [facility] DEPARTMENT | [address] | [place] [address] | | | PATHOLOGY | [address] | | | + + + + + CAPILLARY BLOOD GLUCOSE, POC (11/13/2011 6:21 PM PST) + +-------+ + + + | Component | Value | Ref Range | Performed | Pathologist | | | | | At | Signature | + +-------+ + + + | BLOOD | 62 | 60 - 99 mg/dL | [facility] - | | | GLUCOSE, | | [...] HENSLEY | [address] | [place], [place] | | | [facility] | [address] | [address] | | | TESTS | | | [...] | | | | ONCE, 1 dose, Wed11/18/11 at 1600 | | PM PST | | | | + +-------+ +--------+---+---+ +---+---+ | | | +---+---+ + +-------+ +--------+---+---+ | acetaminophen (aka TYLENOL) | Given | 12/02/19 | 650 mg | | | | tablet 650 mg 650 mg, oral, | | 12 2:34 | | | | | ONCE, 1 dose, Wed12/02/11 at 1400 | | PM PST | | | | + +-------+ +--------+---+---+ +---+---+ | | | +---+---+ + +-------+ +--------+---+---+ | acyclovir (aka ZOVIRAX) tablet | Given | 11/15/19 | 800 mg | | | | 800 mg 800 mg, oral, DAILY, | | 12 8:56 | | | | | First dose on [place] 11/14/11 at | | AM PST | [...] | | | | First dose on [facility] 11/19/11 at | | AM PST | [...] | diphenhydrAMINE (aka BENADRYL) | Given | 12/05/19 | 25 mg | | | | [...] | diphenhydrAMINE (aka BENADRYL) | Given | 11/18/19 | 50 mg | | | | capsule 50 mg 50 mg, oral, ONCE, | | 12 3:37 | | | | | 1 dose, Wed11/18/11 at 1600 | | PM PST | | | | + +-------+ +-------+---+---+ +---+---+ | | | +---+---+ + +-------+ +-------+---+---+ | diphenhydrAMINE (aka BENADRYL) | Given | 12/02/19 | 50 mg | | | | capsule 50 mg 50 mg, oral, ONCE, | | 12 2:34 | | | | | 1 dose, Wed12/02/11 at 1400 | | PM PST | [...] | | | | First dose on Wed11/13/11 at | | | | | [...] | | | DAILY, First dose on Wed11/26/11 | | AM PST | | | [...] +---------+ +-------+--------+---+ | furosemide (aka LASIX) | Bag | 11/19/19 | 40 mg | mL/hr | | | injection 40 mg 40 mg, | | 12 5:45 | | | | | intravenous, TWICE DAILY, 2 | | PM PST | | | | | doses, First dose (after last | | | | | | | modification) on [facility] 11/19/11 at | | | | | [...] | | IV 50 mg, intravenous, ONCE, 1 | | 12 2:32 | | mL/hr | | | dose, 12/04/11 at 1000 | | PM PST | [...] | | | DAILY, First dose on [place] 11/19/11 | | AM PST | | | [...] | | | | | 1806, Until Wed11/30/11 at 1109, | | | | | [...] PST | | | | | on 11/30/11 at 1400, Last | | | | | | | dose on [place] 12/03/11 at 0900 | | | [...] | +---+---+ + +---------+ +--------+--------+---+ | LORazepam (aka ATIVAN) | New Bag | 11/14/19 | [...] | | | 1700, Last dose on Tu11/17/11 at | | | | | | [...] | | | Hours, ONCE, 1 dose, Wed12/02/11 | | | | | | | [...] | NEEDED, Starting Wed11/13/11 at | | PM PST | | [...] | | | | | 1 dose, [place] 11/22/11 at 1700 | | PM PST [...] | | | | | modification) on Wed11/25/11 at | | | | | | [...] | | | | | NEEDED, Starting Wed11/17/11 at | | | | | | | 0927, Until Wed12/02/11 at 1115, | | | | | [...] | | | 2130, Last dose on Wed12/07/11 at | | | | | | [...] | | | COMPAZINE) tablet 5-10 mg 5- | | 12 11:51 | | | [...] | +---+---+ + +-------+ + +---+---+ | senna-docusate (aka SENOKOT S) | Given | 11/18/19 | 1 tablet [...] 8.4 % (1 | New Bag | 12/02/19 | | 200 | | | mEq/mL) 100 mEq in dextrose 5% IV | | 12 9:28 | | mL/hr | | | infusion intravenous, | | AM PST | | | | | CONTINUOUS, Starting 12/02/11 | | | | | | | at 0600, Until Wed12/02/11 at 0959 | | | | | [...] | | | | | modification) on Wed11/24/11 at | | | | | | [...] | +---------+ +-------+--------+---+ | New Bag | 12/01/19 [...] | | | | | | | 12 at 1300 | | | | | [...] | | | | | | | [facility] 12/03/11 at 0900 | | | | [...]
--- OUTSIDE RECORDS SUMMARY | ~2019-09-11 | XMS | Encounter Summary ---
Demographics + + + | Address | [address] | | | [place] [address] | + + + | Home Phone [...] | Author | [facility] | | | and Hermannana | + + + | Organization | [facility] | | | and Hermannana | [...] [place], [place] | | | | | [address] | | + + + + + | Greta Broncheau | ECON | [place], [place] | | | | | [address] | | + + + + + Care Team Providers + +------+ + | Care Reconditioning Associate Name | Role | Phone | + +------+ + PCP | Unavailable | + +------+ + Encounter Details +--------+ + + + + | Date | Type | Department | Care Team | Description | +--------+ + + + + | 06/06/ | Hospital | [facility] | Thelma, | | | 2012 - | Encounter | [facility] MED [facility] | Antonio Infante MD [address] | | | | [address] [place] | [address] [place] | | | 06/11/ | | [place] [address] | [place] [address] | | | 2011 | | [phone] | [phone] | | | | | | | [...] Antonio Renee MD - 09/29/2012 3:55 [place] [address] Patient Name: OZFIA YOUNG Provider: Antonio Renee MD Unit #: [id number] Location : 3WM : 1960 ADMISSION DATE: 06/06/2012 DISCHARGE DATE: 06/11/2012 ADMITTING DIAGNOSES 1. Burkitt's lymphoma. 2. Cardiomyopathy. DISCHARGE DIAGNOSES 1. BURKITT'S LYMPHOMA, STABLE. 2. CARDIOMYOPATHY, STABLE. PROCEDURES: Cycle #4B of Rituxan/hyper-CVAD chemotherapy. COMPLICATIONS: None. CONSULTATIONS: None. HOSPITAL COURSE: Zofia Young is a 51-year-old woman from [facility] on, who has Burkitt's lymphoma. Zofia was admitted to [facility] on 06/06/2012 for cycle #4B of Rituxan/ hyper-CVAD chemotherapy. Just prior to her admission she received a 100 mg injection of preservative-free cytarabin e intrathecally. She then was admitted to [facility] where her Port-A-Cath was accessed and a [...] was administered at the 12-hour period after e completion of her methotrexate infusion. On [...] orally daily as needed for constipation. 10. [place] 5/325 one or two tab lets every [...] BY: Antonio Renee MD Oncology JOB #: [id number] EXT JOB #:[id number] <<Signature on File>> Antonio swan MD10/03/12 0957 < Ian , Antonio Sy MD - 06/06/2012 10:48 AM PDTADMISSION DATE: 06/06/2012 DISCHARGE DATE: 06/11/2012 ADMITTING DIAGNOSES 1. Burkitt's lymphoma. 2. Cardiomyopathy. DISCHARGE DIAGNOSES 1. BURKITT'S LYMPHOMA, STABLE. 2. CARDIOMYOPATHY, STABLE. PROCEDURES: Cycle #4B of Rituxan/hyper-CVAD chemotherapy. COMPLICATIONS: None. CONSULTATIONS: None. HOSPITAL COURSE: Zofia Young is a 51-year-old woman from [facility] who has Burkitt's lymphoma. Zofia was admitted to [facility] on 06/06/2012 for cycle #4B of R ituxan/hyp er-CVAD chemotherapy. Just prior to her admission she received a 100 mg injection of preservative-free cytarabine intrathec ally. She then was admitted to [facility] where her Port-A-Cath was accessed and a [...] in the Cancer Center on 06/13/2012 for eveline marshall and supportive care after her chemotherapy [...] orally daily as needed for constipation. 10. [place] 5/325 one or two tablet s every [...] BY: Antonio Renee MD Oncology JOB #: [id number] EXT JOB #:[id number] <Electronicall y Signed by Antonio Renee MD> [...] | 03/25/20 | | | (VITAMIN D3) [address] | mouth Once a week. | | [...] | | | | | | Performed: [facility] | | | | | | [facility] | | | | | | Center, [address], | | | | | | [place] [address] | | | | | | CLIA: [id number] | | | | + + + + + + + + | Specimen | + + | | + + + + + + + | Performing | Address | City/State/Zipcode | Phone Number | | Organization | | | | + + + + + | [facility] | [address] | [place], [place] | [phone] | | [facility] | | [address] | | | - LABORATORY | | | | + + + + + | [facility] | [address] | [place], [place] | | | [facility] | | [address] | | | - LABORATORY | | [...] | 9.6 | 6.0 - 17.0 | [facility] | [...] [address] | [place] | [phone] | | [facility] | | [address] | | | - LABORATORY | | | | + + + + + | [facility] | [address] | [place] | | | [facility] | | [address] | | | - LABORATORY | | | | + + + + + CBC with Differential (06/10/2012 8:23 AM PDT) + + + + + + | Component | Value | Ref Range | Performed | Pathologist | | | | | At | Signature | + + + + + + | WBC | 4.7 (A) | 4.0 - 11.0 K/uL | [facility] | | | | | | [facility] | | | | | | MEDICAL | | | | | | CENTER - | | | | | | LABORATORY | | + + + + + + | RBC | 2.83 (L) | 3.70 - 5.20 [...] [address] | [place] | [phone] | | [facility] | | [address] | | | - LABORATORY | | | | + + + + + | [facility] | [address] | [place] | | | [facility] | | [address] | | | - LABORATORY | | [...] e Level | Interpretation depends | | [facility] | | | | on dosing and draw times | | MEDICAL | | | | as well as target | | CENTER - | | | | level for the disease | | LABORATORY | | | | being treated. Testing | | | | | | Performed: [facility] | | | | | | [facility] | | | | | | Center, [address], | | | | | | [place] [address] | | | | | | RHONDA: [id number] | | | | + + + + + + + + | Specimen | + + | | + + + + + + + | Performing | Address | City/State/Zipcode | Phone Number | | Organization | | | | + + + + + | [facility] | [address] | [place], [place] | [phone] | | [facility] | | [address] | | | - LABORATORY | | | | + + + + + | [facility] | [address] | [place] | | | [facility] | | [address] | | | - LABORATORY | | | | + + + + + Basic Metabolic Panel (06/09/2012 7:01 AM PDT) + + + + + + | Component | Value | Ref Range | Performed | Pathologist | | | | | At | Signature | + + + + + + | Glucose | 109 | 70 - 109 mg/dL | [facility] [...] 18 | 7 - 18 mg/dL | [facility] | | | | | | [facility] | | | | | | MEDICAL | | | | | | CENTER - | | | | | | LABORATORY | | + + + + + + | Creatinine | 0.61 | 0.60 - 1.30 | [facility] | [...] + | [facility] | [address] | [place] | [phone] | | [facility] | | [address] | | | - LABORATORY | | | | + + + + + | [facility] | [address] | [place], [place] | | | [facility] | | [address] | | | - LABORATORY | | | | + + + + + CBC with Differential (06/09/2012 7:01 AM PDT) + + + + + + | Component | Value | Ref Range | Performed | Pathologist | | | | | At | Signature | + + + + + + | WBC | 5.8 | 4.0 - 11.0 K/uL | [facility] | [facility] | | | | | | MEDICAL | | | | | | CENTER - | | | | | | LABORATORY | | + + + + + + | RBC | 2.83 (L) | 3.70 - 5.20 [...] + | [facility] | [address] | [place] | [phone] | | [facility] | | [address] | | | - LABORATORY | | | | + + + + + | [facility] | [address] | [place] | | | [facility] | | [address] | | | - LABORATORY | | | | + + + + + Methotrexate Level (06/08/2012 7:09 AM PDT) + + + + + + | Component | Value | Ref Range | Performed | Pathologist | | | | | At | Signature | + + + + + + | Methotrexat | 4.96Comment: | () umol/L | [facility] | | [...] | | | | | | Performed: [facility] | | | | | | [facility] | | | | | | [place], [address], | | | | | | [place] [address] | | | | | | CLIA: [id number] | | | | + + + + + + + + | Specimen | + + | | + + + + + + + | Performing | Address | City/State/Zipcode | Phone Number | | Organization | | | | + + + + + | [facility] | [address] | [place] | [phone] | | [facility] | | [address] | | | - LABORATORY | | | | + + + + + | [facility] | [address] | [place] | | | [facility] | | [address] | | | - LABORATORY | | [...] | 18.0 | 12 - 20 | [facility] | [...] | 8.7 | 6.0 - 17.0 | [facility] | [...] [address] | [place] | [phone] | | [facility] | | [address] | | | - LABORATORY | | | | + + + + + | [facility] | [address] | [place] | | | [facility] | | [address] | | | - LABORATORY | | | | + + + + + CBC with Differential (06/08/2012 6:15 AM PDT) + + + + + + | Component | Value | Ref Range | Performed | Pathologist | | | | | At | Signature | + + + + + + | WBC | 6.4 (A) | 4.0 - 11.0 [...] + | [facility] | [address] | [place] | [phone] | | [facility] | | [address] | | | - LABORATORY | | | | + + + + + | [facility] | [address] [facility] | [place] | | | [facility] | | [address] | | | - LABORATORY | | | | + + + + + FL Lumbar Puncture (06/06/2012 10:48 AM PDT) + + | Specimen | + + | | + + + + + | Narrative | Performed At | + + + | [facility] Diagnostic Imaging Department | [facility] | | [address], [facility] | [facility] | | FLUOROSCOPICALLY GUIDED LUMBAR | DIAG [...] at the L3 level is identified f luoroscopically. Skin is | | | marked at [...] administer the intrathecal | | | chemotherapy. Elora are then wi thdrawn and procedure terminated. | | | IMPRESSION: 1. TECHNICALLY SUCCESSFUL FLUOROSCOPICALLY GUIDED | | | LUMBAR PUNCTURE FOR INTRATHECAL CHEMOTHERAPY. Dictated Date/Time: | | | 06/06/2012 14:25 Transcribed Date/Time: 06/06/2012 14:52 | | | Pet Crematory Worker: JAIME <Electronically Signed by Jorge Luis Merlos | | | MD Jarrett> 06/07/12 0638 | | + + + + + | Procedure Note | + + | Germain, Philip Conversion - 12/08/2013 5:49 PM [facility] | | Diagnostic Imaging Department [address] [place] [address] | | FLUOROSCOPICALLY GUIDED LUMBAR PUNCTURE CLINICAL [...] then administer the intrathecal | | chemotherapy. Elora are then withdrawn and procedure terminated. IMPRESSION: [...] attendance to then administer the intrathecal chemotherapy. Elora a re then wi | |thdrawn and procedure terminated. | | | |IMPRESSION: | |1. TECHNICALLY SUCCESSFUL FLUOROSCOPICALLY GUIDED LUMBAR PUNCTURE FOR INTRATHECAL CHEMOTHE RAPY. | | | |Dictated Date/Time: 06/06/2012 14:25 | |Transcribed Date/Time: 06/06/2012 14:52 | |Pet Crematory Worker: | |<Electronically Signed by Jorge Luis Farias MD> 06/07/12 0638 | + + + +---------+ + + | Performing | Address | City/State/Zipcode | Phone Number | | Organization | | | | + +---------+ + + | [place] | | | | | [facility] | | | | + +---------+ + + documented in this encounter Visit Diagnoses Not on filedocumented in this encounter
--- OUTSIDE RECORDS SUMMARY | ~2019-09-11 | XMS | Encounter Summary ---
Demographics + + + | Address | [address] | | | [place] [address] | + + + | Home Phone | | + + + | Preferred Language | Unknown | + + + | Marital Status | | + + + | Yarsani Affiliation | Unknown | + + + | Race | Unknown | + + + | Ethnic Group | Unknown | + + + Author + + + | Author | [facility] | | | and Hermannana | + + + | Organization | [facility] | | | [...] [place], [place] | | | | | [address] | | + + + + + | Greta Broncheau | ECON | [place], [place] | | | | | [address] | | + + + + + Care Team Providers + +------+ + | Care Rubber Boots And Shoes Repairer Name | Role | Phone | + +------+ + PCP | Unavailable | + +------+ + Encounter Details +--------+ + + + + | Date | Type | Department | Care Team | Description | +--------+ + + + + | 07/21/ | Hospital | [facility] | Thelma, | | | 2011 - | Encounter | MED CTR CANCER | Antonio Infante MD [address] | | | | [address] | [place] | | | 07/31/ | | [place], [place] | [place] [address] | | | 2011 | | [address] | [phone] | | | | | [phone] | | | +--------+ + + + [...] | 03/25/20 | | | (VITAMIN D3) 52874 | mouth Once a week. | | | 12 | 4 | | UNITS CAPS | | | | | | + + + +---------+ + + | Coenzyme A89-Ibky | one by mouth daily | | [...] encounter Progress Notes Antonio Renee MD - 07/21/2012 3:36 AM PDTDOB: 1960 PROGRESS NOTE 07/21/2012 IDENTIFYING STATEMENT: Frida Christian is a 51-year-old woman from [place], [place] with Bu rkitt's lymphoma. ACTIVE DIAGNOSES: 1. Presentation in August of 2011 with intractable searing abdominal pain. Symptoms progr essed and on October 05, 2011, she underwent advanced imaging that demonstrated diffuse mal ignant lymphadenopathy throughout the retroperitoneum. 2. Laparoscopic lymph node biopsy on November 10, 2011 [address] [facility] demonstrated high-grade B cell lymphoma consistent with [...] uni ts orally once a week. 5. [place] 5/325, 1 or 2 tablets every 4-6 hours as needed for pain. 6. Dilaudid 2 mg every 4 hours as needed for pain. 7. Lisinopril 10 mg orally daily. 8. Ativan 1 mg every 4 hours as needed for nausea, anxiety, or restlessness. 9. Multivitam in once a day. 10. [place]-3 fish oil 1 g orally daily. 11. [...] referred back to Dr. Silvio Mendoza in [place], [place] to have her Por t-A-Cath removed. She will return to see me for observation and surveillance every 3 months and prefers to have her followup visits at the [facility] here in [place], [place]. cc: [facility] Dylan Martinez MD, [facility] and [facility] <Electronically Signed by Antonio Renee MD> 07/25/12 [...] 4.2 | 3.2 - 5.0 gm/dL | [facility] | | | | | | [facility] | | [facility] | [facility] | | | | | | CENTER - | | | | | | LABORATORY | | + + + + + + | BUN | 19 (H) | 7 - 18 mg/dL | [facility] [...] (L) | 136 - 149 mEq/L | [facility] | | | | | | [facility] | | | | | | MEDICAL | | | | | | CENTER - | | | | | | LABORATORY | | + + + + + + | K | 4.5 | 3.5 - 5.1 mEq/l | [facility] [...] + | [facility] | [address] | [place] | [phone] | | [facility] | | [address] | | | - LABORATORY | | | | + + + + + | [facility] | [address] | [place] | | | [facility] | | [address] | | | - LABORATORY | | [...] + | [facility] | [address] | [place] | [phone] | | [facility] | | [address] | | | - LABORATORY | | | | + + + + + | [facility] | [address] | [place] | | | [facility] | | [address] | | | - LABORATORY | | | | + + + + + CBC with Differential (07/21/2012 10:41 AM PDT) + + + + + + | Component | Value | Ref Range | Performed | Pathologist | | | | | At | Signature | + + + + + + | WBC | 6.6 | 4.0 - 11.0 K/uL | [facility] | | | | | | MEDICAL | | | | | | CENTER - | | | | | | LABORATORY | | + + + + + + | RBC | 3.20 (L) | 3.70 - 5.20 [...] + | [facility] | [address] | [place] | [phone] | | [facility] | | [address] | | | - LABORATORY | | | | + + + + + | [facility] | [address] | [place], [place] | | | [facility] | | [address] | | | - LABORATORY | | | | + + + + + documented in this encounter Visit Diagnoses Not on filedocumented in this encounter"
--- OUTSIDE RECORDS SUMMARY | ~2019-09-11 | XMS | Encounter Summary ---
Demographics + + + | Address | [address] | | | [place] [address] | + + + | Home Phone | | + + + | Preferred Language | Unknown | + + + | Marital Status | Single | + + + | Alevism Affiliation | NON | + + + | Race | or | + + + | Ethnic Group | Not or | + + + Author + + + | Author | [facility] | + + + | Organization | [facility] | + + + | Address | Unknown | + + + | Phone | Unavailable | + + + Support + + + + + | Name | Relationship | Address | Phone | + + + + + | Yue Fischer | ECON | [address] | | | | | [place] | | | | | [address] | | + + + + + | Greta Broncheau | ECON | Unknown | | + + + + + Care Team Providers + +------+ + | Care Billiard Table Repairer Name | Role | Phone | + +------+ + | Becky Jennings | PCP | | + +------+ + Encounter Details +--------+ + + + + | Date | Type | Department | Care Team | Description | +--------+ + + + + | 12/11/ | Results | Center [facility] | Eunice Longo, | | | 2011 | Only | Hematologic | ANP [address] [facility] | | | | | Malignancies at [facility] | [address] | | | | | [address] [facility] | [place], [place] | | | | | [facility] Mailcode: | [id number] | | | | | [id number] | [phone] | | | | | [place], | | | | | | [place] [address] | | | | | | [phone] | | | +--------+ + + + [...] Accession | | | | | | #:[id number] study | | | | | | [...] stable | | | | | | [id number]. No suspicious | | | | | [...] | | + +---------+ + + | [facility] DEPARTMENT OF | | | | | RADIOLOGY | | | | + +---------+ + + documented in this encounter Visit Diagnoses Not on filedocumented in this encounter"
--- OUTSIDE RECORDS SUMMARY | ~2019-09-11 | XMS | Encounter Summary ---
Demographics + + + | Address | [address] | | | [place] [address] | + + + | Home Phone | | + + + | Preferred Language | Unknown | + + + | Marital Status | | + + + | Mosque Affiliation | Unknown | + + + | Race | Unknown | + + + | Ethnic Group | Unknown | + + + Author + + + | Author | [facility] | | | and Hermannana | + + + | Organization | [facility] | [...] [place], [place] | | | | | [address] | | + + + + + | Greta Broncheau | ECON | [place], [place] | | | | | [address] | | + + + + + Care Team Providers + +------+ + | Care Podiatry Professor Name | Role | Phone | + +------+ + PCP | Unavailable | + +------+ + Encounter Details +--------+ + + + + | Date | Type | Department | Care Team | Description | +--------+ + + + + | 05/24/ | Hospital | [facility] | Thelma, | | | 2011 - | Encounter | MED CTR CANCER | Antonio Infante MD [address] | | | | | [place] [address] | [place] | | | 05/31/ | | [place], [place] | [place] [address] | | | 2011 | | [address] | [phone] | | | | | [phone] | | | +--------+ + + + [...] | 03/25/20 | | | (VITAMIN D3) 43[address] | mouth Once a week. | | [...] Frida Christian is a 51-year-old woman from [place], [place] with Bu rkitt's lymphoma. ACTIVE DIAGNOSES: 1. Presentation in August of 2011 with intractable searing abdominal pain. Symptoms progr essed and on October 05, 2011, she underwent advanced imaging that demonstrated diffuse mal ignant lymphadenopathy throughout the retroperitoneum. 2. Laparoscopic lymph node biopsy on November 10, 2011, at [facility] demonstrated a high-grade B cell lymphoma consistent with Burkit t's lymphoma. Positive for BCL6, CD10, CD19, CD20, CD22, and kappa light chains. Ignacio-Ba rr virus was positive by in situ hybridization. KI 67 fraction was greater than 90%. 3. Initiation of Rituxan/Hyper-CVAD chemotherapy at [facility] on November 15, 2011. CHIEF COMPLAINT: [...] in 1981 PSYCHOSOCIAL HISTORY: Lives independently in [place], [place]. HABITS: Tobacco: Positive for tobacco use. Alcohol: Positive for remote alcohol use, none currently. Other: Positive for ongoing Typemock miranda use. FAMILY HISTORY: There is no [...] Multivi tamin 1 tablet orally daily. 9. [place] 3 fish oil 1 g orally daily. [...] Burkitt's lymphoma. PLAN: Frida will return to [facility] on June 06, 2012. She ericka l undergo an intrathecal injection of 100 mg of cytarabine in preservative-free saline and then proceed directly to admission to [facility] for cycle #4B of her therapy. cc: [facility] Radiology Scheduling <Electronically Signed by Antonio Renee MD> 05/26/12 0814 Antonio Renee MD - 05/07/2012 2:36 AM PDTPROGRESS NOTE 05/16/2012 IDENTIFYING STATEMENT: Frida Christian is a 51-year-old woman from [place], [place] with Bu rkitt's lymphoma. ACTIVE DIAGNOSES: 1. Presentation in August of 2011 with intractable searing abdominal pain. Symptoms progr essed and on October 05, 2011, she underwent advanced imaging that demonstrated diffuse mal ignant lymphadenopathy throughout the retroperitoneum. 2. Laparoscopic lymph node biopsy on November 10, 2011, at [facility] demonstrated a high-grade B cell lymphoma consistent with Burkit t's lymphoma. Positive for BCL6, CD10, CD19, CD20, CD22, and kappa light chains. Ignacio-Ba rr virus was positive by in situ hybridization. KI 67 fraction was greater than 90%. 3. Initiation of Rituxan/Hyper-CVAD chemotherapy at [facility] on November 15, 2011. CHIEF COMPLAINT: [...] section 1981. PSYCHOSOCIAL HISTORY: Lives independently in [place], [place]. HABITS: Tobacco: Positive for tobacco use. [...] Multivitam in 1 tablet orally daily. 9. [place] 3 fish oil 1 g orally daily. [...] de pending upon her blood counts. cc: [facility] <Electronically Signed by Antonio Renee MD> [...] | 17.2 | 12 - 20 | [facility] | | | ine Ratio | | | [facility] | | | | | | MEDICAL | | | | | | CENTER - | | | | | | LABORATORY | | + + + + + + | Na | 137 | 136 - 149 mEq/L | [facility] [...] + | [facility] | [address] | [place], [place] | [phone] | | [facility] | | [address] | | | - LABORATORY | | | | + + + + + | [facility] | [address] | [place], [place] | | | [facility] | | [address] | | | - LABORATORY | | [...] + | [facility] | [address] | [place] | [phone] | | [facility] | | [address] | | | - LABORATORY | | | | + + + + + | [facility] | [address] | [place], [place] | | | [facility] | | [address] | | | - LABORATORY | | | | + + + + + CBC with Differential (05/24/2012 10:28 AM PDT) + + + + + + | Component | Value | Ref Range | Performed | Pathologist | | | | | At | Signature | + + + + + + | WBC | 12.1 (H) | 4.0 - 11.0 K/uL | [facility] | | | | | | [facility] | | | | | | MEDICAL | | | | | | CENTER - | | | | | | LABORATORY | | + + + + + + | RBC | 3.13 (L) | 3.70 - 5.20 [...] + | [facility] | [address] | [place], [place] | [phone] | | [facility] | | [address] | | | - LABORATORY | | | | + + + + + | [facility] | [address] | [place], [place] | | | [facility] | | [address] | | | - LABORATORY | | [...] 22.7 (H) | 12 - 20 | [facility] | | | ine Ratio | | | [facility] | | | | | | MEDICAL | | | | | | CENTER - | | | | | | LABORATORY | | + + + + + + | Na | 141 | 136 - 149 mEq/L | [facility] [...] + | [facility] | [address] | [place] | [phone] | | [facility] | | [address] | | | - LABORATORY | | | | + + + + + | [facility] | [address] | [place] | | | [facility] | | [address] | | | - LABORATORY | | [...] + | [facility] | [address] | [place] | [phone] | | [facility] | | [address] | | | - LABORATORY | | | | + + + + + | [facility] | [address] | [place], [place] | | | [facility] | | [address] | | | - LABORATORY | | | | + + + + + CBC with Differential (05/16/2012 8:36 AM PDT) + + + + + + | Component | Value | Ref Range | Performed | Pathologist | | | | | At | Signature | + + + + + + | WBC | 25.3 (H) | 4.0 - 11.0 K/uL | [facility] | | | | | | [facility] | | | | | | MEDICAL | | | | | | CENTER - | | | | | | LABORATORY | | + + + + + + | RBC | 3.52 (L) | 3.70 - 5.20 [...] PROBLEM IS: | Comment: | | [facility] | | | | Left Shift | | MEDICAL | | | | Imm Grans | | CENTER - | | | | NE Blast | | LABORATORY | | + + + + + + + + | Specimen | + + | | + + + + + + + | Performing | Address | City[facility] | Phone Number | | Organization | | | | + + + + + | [facility] | [address] | [place] | [phone] | | [facility] | | [address] | | | - LABORATORY | | | | + + + + + | [facility] | [address] | [place] | | | [facility] | | [address] | | | - LABORATORY | | [...] [address] | [place] | [phone] | | [facility] | | [address] | | | - LABORATORY | | | | + + + + + | [facility] | [address] | [place], [place] | | | [facility] | | [address] | | | - LABORATORY | | [...] + | [facility] | [address] | [place], [place] | [phone] | | [facility] | | [address] | | | - LABORATORY | | | | + + + + + | [facility] | [address] | [place], [place] | | | [facility] | | [address] | | | - LABORATORY | | | | + + + + + CBC with Differential (05/09/2012 9:37 AM PDT) + + + + + + | Component | Value | Ref Range | Performed | Pathologist | | | | | At | Signature | + + + + + + | WBC | 5.4 | 4.0 - 11.0 K/uL [...] + | [facility] | [address] | [place], [place] | [phone] | | [facility] | | [address] | | | - LABORATORY | | | | + + + + + | [facility] | [address] | [place] | | | [facility] | | [address] | | | - LABORATORY | | | | + + + + + documented in this encounter Visit Diagnoses Not on filedocumented in this encounter"
--- OUTSIDE RECORDS SUMMARY | ~2019-09-11 | XMS | Encounter Summary ---
Demographics + + + | Address | [address] | | | [place] [address] | + + + | Home Phone | | + + + | Preferred Language | Unknown | + + + | Marital Status | | + + + | Caodaism Affiliation | Unknown | + + + | Race | Unknown | + + + | Ethnic Group | Unknown | + + + Author + + + | Author | [facility] | | | and Hermannana | + + + | Organization | [facility] | | | [...] [place], [place] | | | | | [address] | | + + + + + | Greta Broncheau | ECON | [place], [place] | | | | | [address] | | + + + + + Care Team Providers + +------+ + | Care Director Of Agronomy Name | Role | Phone | + +------+ + PCP | Unavailable | + +------+ + Encounter Details +--------+ + + + + | Date | Type | Department | Care Team | Description | +--------+ + + + + | 07/14/ | Hospital | [facility] | Thelma, | | | 2011 | Encounter | MED CTR XRAY [address] | Antonio Infante MD [address] | | | | | [place] | [address] [place] | | | | | [place] [address] | [place] [address] | | | | | [phone] | [phone] | | | | | | | [...] | 03/25/20 | | | (VITAMIN D3) 19135 | mouth Once a week. | | | 12 | 4 | | UNITS CAPS | | | | | | + + + +---------+ + + | Coenzyme E24-Iemt | one by mouth daily | | [...] At | + + + | [facility] Diagnostic Imaging Department | [facility] | | [address] [facility] | [facility] | | ENHANCED CT CHEST AND ABDOMEN, [...] Transcribed | | | Date/Time: 07/14/2012 18:01 Glass Pulverizer Equipment Operator: | | | <Electronically Signed by Moises Rodas MD> 07/14/12 2259 | | + + + + + | Procedure Note | + + | Germain, Rad Conversion - 12/08/2013 6:00 PM [facility] | | Diagnostic Imaging Department | | [address] [facility] | | | | | | [...] | Transcribed Date/Time: 07/14/2012 18:01 | | Glass Pulverizer Equipment Operator: | | <Electronically Signed by Moises Rodas [...]
--- OUTSIDE RECORDS SUMMARY | ~2019-09-11 | XMS | Encounter Summary ---
Demographics + + + | Address | [address] | | | [place] [address] | + + + | Home Phone | | + + + | Preferred Language | Unknown | + + + | Marital Status | | + + + | Sikh Affiliation | Unknown | + + + | Race | Unknown | + + + | Ethnic Group | Unknown | + + + Author + + + | Author | [facility] | | | and Hermannana | + + + | Organization | [facility] | [...] [place], [place] | | | | | [address] | | + + + + + | Greta Broncheau | ECON | [place], [place] | | | | | [address] | | + + + + + Care Team Providers + +------+ + | Care Public Relations Account Supervisor Name | Role | Phone | [...] | SR | | | | | [phone] | | | +--------+ + + + [...]
--- OUTSIDE RECORDS SUMMARY | ~2019-09-11 | XMS | Encounter Summary ---
Demographics + + + | Address | [address] | | | [place] [address] | + + + | Home Phone | | + + + | Preferred Language | Unknown | + + + | Marital Status | | + + + | Taoist Affiliation | Unknown | + + + | Race | Unknown | + + + | Ethnic Group | Unknown | + + + Author + + + | Author | [facility] | | | and Hermannana | + + + | Organization | [facility] | | | and [...] [place], [place] | | | | | [address] | | + + + + + | Greta Broncheau | ECON | [place], [place] | | | | | [address] | | + + + + + Care Team Providers + +------+ + | Care Communications Editor Name | Role | Phone | + +------+ + PCP | Unavailable | + +------+ + Encounter Details +--------+ + + + + | Date | Type | Department | Care Team | Description | +--------+ + + + + | 01/27/ | Hospital | [facility] | Thelma, | | | 2011 - | Encounter | [facility] | Antonio Infante MD [address] | | | | [place] [address] | [place] | | | 01/29/ | | [place], [place] | [place] [address] | | | 2011 | | [address] | [phone] | | | | | [phone] | | | +--------+ + + + [...] Frida Christian is a 51-year-old woman from [place], [place], with Burkitt's lymphoma. ACTIVE DIAGNOSES: 1. Presentation in August 2001, with intractable searing abdominal pain. Symptoms progre ssed and on October 05, 2011, she underwent advanced imaging that demonstrated diffuse roverto gnant lymphadenopathy throughout the retroperitoneum. 2. Laparoscopic lymph node biopsy on November 10, 2011, at [facility], demonstrated a high grade B cell lymphoma, consistent with Burkitt's lymphoma, positive for BCL6, CD10, CD19, CD20, C D22, and kappa light chains. 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 3. Initiation of Rituxan/Hyper-CVAD chemotherapy at [facility] on November 15, 2011. CHIEF COMPLAINT: [...] all without adverse effects. CC: JING Luis ([facility]) Dylan Wheatley M.D. ([facility]) <Electronically Signed by Antonio Renee MD> 01/29/12 1025 Antonio Renee MD - 01/03/2012 2:20 AM PSTPROGRESS NOTE: 01/04/2012 IDENTIFYING STATEMENT: Frida Christian is a 51-year-old woman from [place], [place] with Bu rkitt's lymphoma. ACTIVE DIAGNOSES: 1. Presentation in August 2011 with intractable abdominal pain described as "searing." Symptoms progressed. On October 05, 2011, she underwent advanced imaging demonstrating diffus e malignant lymphadenopathy throughout the retroperitoneum. 2. Laparoscopic lymph node biopsy on November 10, 2011 at [facility], demonstrating a high-grade B cell lymphoma consistent with Burkitt's lymphoma. Positive for bcl-6, CD10, CD19, CD20, C D22, and kappa light chains. 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 Ki67 fraction was greater than 90%. 3. Initiation of Rituxan/hyper-CVAD chemotherapy at [facility] on November 15, 2011. CHIEF COMPLAINT: [...] is examined in detail. The dressing is battery test engineer nically wet and adhesive has dissolved. NEUROLOGIC: [...] will be removed. CC: Dr. Dylan Martinez, [facility] Becky Jennings, JING, [facility] <Electronically Signed by Antonio Renee MD> 01/05/12 1546 documented in this encounter Plan of Treatment [...] MEDICAL | | | | | | [facility] - | | | | | | [...] 9 | 7 - 18 mg/dL | [facility] | | [facility] | | | | | [facility] | | | | | | [facility] - | | | | | | LABORATORY | | + + + + + + | Creatinine | 0.57 (L) | 0.60 - 1.30 | [facility] | | | | | mg/dL | [facility] | | | | | | [facility] - | | | | | | LABORATORY | | + + + + + + | Estimated | >60Comment: For | >60 mL/min/A | [facility] | | | GFR | -Americans, [...] + | [facility] | [address] | [place] | [phone] | | [facility] | | [address] | | | - LABORATORY | | | | + + + + + | [facility] | [address] | [place], [place] | | | [facility] | | [address] | | | - LABORATORY | | [...] | | | | | | [facility] | | | | | [...] + | [facility] | [address] | [place] | [phone] | | [facility] | | [address] | | | - LABORATORY | | | | + + + + + | [facility] | [address] | [place] | | | [facility] | | [address] | | | - LABORATORY | | [...] | | CONSISTENT WITH PREVIOUS | | [facility] | | | | RESULTS | [...] + | [facility] | [address] | [place] | [phone] | | [facility] | | [address] | | | - LABORATORY | | | | + + + + + | [facility] | [address] | [place] | | | [facility] | | [address] | | | - LABORATORY | | [...] + + + | UNIT # | [id number] | | [facility] | | | | [...] [address] | [place] | [phone] | | [facility] | | [address] | | | - LABORATORY | | | | + + + + + | [facility] | | | | | [facility] | | | | | - [...] + | [facility] | [address] | [place] | [phone] | | [facility] | | [address] | | | - LABORATORY | | | | + + + + + | [facility] | [address] | [place] | | | [facility] | | [address] | | | - LABORATORY | | [...] | | | | | | [facility] | | | | | [...] + | [facility] | [address] | [place], [place] | [phone] | | [facility] | | [address] | | | - LABORATORY | | | | + + + + + | [facility] | [address] | [place], [place] | | | [facility] | | [address] | | | - LABORATORY | | [...] + | [facility] | [address] | [place] | [phone] | | [facility] | | [address] | | | - LABORATORY | | | | + + + + + | [facility] | [address] | [place], [place] | | | [facility] | | [address] | | | - LABORATORY | | | | + + + + + ABO Rh (01/25/2012 9:46 AM PDT) + + | Specimen | + + | | + + + + + + + | Performing | Address | City/State/Zipcode | Phone Number | | Organization | | | | + + + + + | [facility] | [address] | [place] | [phone] | | [facility] | | [address] | | | - LABORATORY | | [...] + | [facility] | [address] | [place] | [phone] | | [facility] | | [address] | | | - LABORATORY | | | | + + + + + | [facility] | [address] | [place] | | | [facility] | | [address] | | | - LABORATORY | | [...] + | [facility] | [address] | [place], [place] | [phone] | | [facility] | | [address] | | | - LABORATORY | | | | + + + + + | [facility] | [address] | [place], [place] | | | [facility] | | [address] | | | - LABORATORY | | [...] + + + | UNIT # | [id number] | | [facility] | | | | [...] + | [facility] | [address] | [place] | [phone] | | [facility] | | [address] | | | - LABORATORY | | | | + + + + + | [facility] | | | | | [facility] | | | | | - [...] + + + | UNIT # | [id number] | | [facility] | | | | [...] [address] | [place] | [phone] | | [facility] | | [address] | | | - LABORATORY | | | | + + + + + | [facility] | | | | | [facility] | | | | | - [...] + + + | UNIT # | [id number] | | [facility] | | | | [...] ST[facility] | [address] | [place] | [phone] | | [facility] | | [address] | | | - LABORATORY | | | | + + + + + | [facility] | | | | | [facility] | | | | | - [...] | + + + + + | [facility] | [address] | [place] | [phone] | | [facility] | | [address] | | | - LABORATORY | | | | + + + + + | [facility] | [address] | [place] | | | [facility] | | [address] | | | - LABORATORY | | [...] ST. | [address] | [place] | [phone] | | [facility] | | [address] | | | - LABORATORY | | | | + + + + + | [facility] | [address] | [place], [place] | | | [facility] | | [address] | | | - LABORATORY | | [...] | | Count | | | [facility] | | [...] + | [facility] | [address] | [place] | [phone] | | [facility] | | [address] | | | - LABORATORY | | | | + + + + + | [facility] | [address] | [place], [place] | | | [facility] | | [address] | | | - LABORATORY | | [...] | ine Ratio | | | [facility] | | | | | | [...] + | [facility] | [address] | [place], [place] | [phone] | | [facility] | | [address] | | | - LABORATORY | | | | + + + + + | [facility] | [address] | [place], [place] | | | [facility] | | [address] | | | [...] + | [facility] | [address] | [place] | [phone] | | [facility] | | [address] | | | - LABORATORY | | | | + + + + + | [facility] | [address] | [place] | | | [facility] | | [address] | | | - LABORATORY | | [...] | | Neutrophils | | | [facility] | | [address] | [place] | [phone] | | [facility] | | [address] | | | - LABORATORY | | | | + + + + + | [facility] | [address] | [place] | | | [facility] | | [address] | | | - LABORATORY | | | | + + + + + documented in this encounter Visit Diagnoses Not on filedocumented in this encounter
--- OUTSIDE RECORDS SUMMARY | ~2019-09-11 | XMS | Encounter Summary ---
Demographics + + + | Address | [address] | | | [place] [address] | + + + | Home Phone | | + + + | Preferred Language | Unknown | + + + | Marital Status | | + + + | Cheondoism Affiliation | Unknown | + + + | Race | Unknown | + + + | Ethnic Group | Unknown | + + + Author + + + | Author | [facility] | | | and Hermannana | + + + | Organization | [facility] | | | and Hermannana [...] [place], [place] | | | | | [address] | | + + + + + | Greta Esteb[place]au | ECON | [place], [place] | | | | | [address] | | + + + + + Care Team Providers + +------+ + | Care Filament Shaper Name | Role | Phone | + [...] + + | 03/18/ | Refill | [facility] | Thelma, | Medication Refill | | 2014 | | [facility] | Antonio Infante MD [address] | | | | | [facility] [address] | [facility] | | | | | [address] | [place] [address] | | | | | [place] [address] | [phone] | | | | | [phone] | | | +--------+--------+ + + + [...]
--- OUTSIDE RECORDS SUMMARY | ~2019-09-11 | XMS | Encounter Summary ---
Demographics + + + | Address | [address] | | | [place] [address] | + + + | Home Phone | | + + + | Preferred Language | Unknown | + + + | Marital Status | | + + + | Denominational Affiliation | Unknown | + + + | Race | Unknown | + + + | Ethnic Group | Unknown | + + + Author + + + | Author | [facility] | | | and Hermannana | + + + | Organization | [facility] | | [...] [place], [place] | | | | | [address] | | + + + + + | Greta Broncheau | ECON | [place], [place] | | | | | [address] | | + + + + + Care Team Providers + +------+ + | Care Snow Removal/Plowing Name | Role | Phone | + +------+ + PCP | Unavailable | + +------+ + Encounter Details +--------+ + + + + | Date | Type | Department | Care Team | Description | +--------+ + + + + | 05/09/ | Hospital | [facility] | [place], | | | 2011 - | Encounter | MED CTR MED ONC | Antonio Infante MD [address] | | | | [address] [place] | [address] [place] | | | 05/14/ | | [place] [address] | [place] [address] | | | 2011 | | [phone] | [phone] | | | | | | | [...] encounter Discharge Summaries Antonio Renee MD - 05/09/2012 10:51 AM PDTADMISSION DATE: 05/09/2012 DISCHARGE DATE: 05/14/2012 ADMITTING DIAGNOSES: 1. Burkitt lymphoma. 2. Treatment-related congestive heart failure. DISCHARGE DIAGNOSES: 1. BURKITT LYMPHOMA. 2. TREATMENT-RELATED CONGESTIVE HEART FAILURE. BOTH CONDITIONS ARE STABLE. PROCEDURES: 1. Intrathecal administration of methotrexate on 05/09/2012. 2. Cycle 4A Rituxan hyper-CVA D chemotherapy 05/09/2012 through 05/14/2012. COMPLICATIONS: None. CONSULTATIONS: None. HOSPITAL COURSE: Frida Christian is a 51-year-old woman from [place], [place] with Burkitt l ymphoma wh o was admitted to [facility] on 05/09/2012 for cycle 4A of infusional chemoth erapy with Rituxan hyper-CVAD and intrathecal chemotherapy with metho trexate. On the day of admission, Frida proceeded directly to the radiology suite where Dr. Moises moncada rmed a lumbar puncture with a 22-gauge 3.5 inch spinal needle placed into the th ecal sac at the L3 in terspace and I immediately followed with a 12 mg injection of intrath ecal methotrexate and removed th e needle without any adverse effects. She then proceeded to the [facility] unit where she received 650 mg of oral Tylenol, 25 mg of i ntravenous Benadryl and 375 mg per meters squared = 710 mg of intravenous Rituxan. On day 2 of chemotherapy, she received 24 mg of oral Zofran, 20 mg oral dexamethasone. She began a co ntinuous intravenous infusion of 1135 mg of intravenous mesna over 24 hours and received 2 infusions of 570 mg of intravenous cyclophosphamide by 12 hours. On the following day, day #3 of chemotherapy, she received 24 mg of oral Zofran, 20 mg of o ral dexame thasone and a second infusion of 1135 mg of mesna over 24 hours and 2 infusions of 570 mg of intraven ous cyclophosphamide by 12 hours. On the following day, day 4 of chemotherapy, she received 24 mg of oral Zofran, 20 mg of or al dexamet hasone. She received another 1135 mg in continuous infusion of mesna and 2 doses of 570 mg of intrave nous cyclophosphamide by 12 hours. On the following day, day #5 of chemotherapy, she received 24 mg of oral Zofran, 20 mg of o ral dexame thasone, 2 mg of intravenous vincristine as an IV push. The patient did not rece al anthracycline sofy motherapy due to her history of a treatment-related congestive heart failure. On the following day, day #6 of chemotherapy, she received 24 mg oral Zofran and 6 mg of mares bcutaneous Neulasta and was discharged. Chemotherapy was tolerated without any adverse effects. During the course of her hospitalization, she developed a progressive hypoplastic anemia an d received 2 units of filtered irradiated CMV-negative packed red blood cells on day 5 of h er treatment. She continued on her outpatient regimen of oral Coreg and lisinopril for her congestive hea rt failure and had no signs or symptoms of exacerbation. PHYSICAL EXAMINATION VITAL SIGNS: Temperature was 36.8 degrees Celsius, blood pressure is 155/95, pulse is 58, r espiratory rate was 18, saturation of oxygen was 98% on room air. A 24-hour input was 4842 mL. A 24-hour output was 6875 mL, and she had an excess of 6.5 L of urine output every day during her chemotherapy admini stration. HEENT: The sclerae was anicteric. The oropharynx was free of lesions. NECK: Supple without thyromegaly. LUNGS: Clear to auscultation. CARDIOVASCULAR: Regular slow rate without rubs, gallops, murmurs. CHEST: Left anterior chest Port-A-Cath remained accessed throughout her hospitalization and was witho ut surrounding tenderness or erythema. ABDOMEN: Soft, nontender, nondistended, no hepatomegaly, no splenomegaly. No ascites. LYMPH NODE SURVEY: No cervical, supraclavicular, axillary, or inguinal lymphadenopathy was noted. MUSCULOSKELETAL: There was no joint deformity, swelling or warmth. Muscle mass was well pre served. EXTREMITIES: Without cyanosis, clubbing, or edema. NEUROLOGIC: She was awake and alert, face symmetric, voice articulate. She was totally inde pendent of all her activities of daily living. On the day of discharge, hemoglobin was 11.3, hematocrit 30.7%, platelet count was 259,000, white cou nt 5700. Her metabolic panel, sodium 139, potassium 3.5, chloride 114, CO2 24, B UN 13, creatinine 0.6 1, estimated GFR greater than 60 mL per minute. Glucose was 86. Calci um was 8. DISCHARGE MEDICATIONS 1. Ativan 1 mg every 4 hours as needed for nausea, anxiety or restlessness 2. Compazine 10 mg every 6 hours as needed for nausea. 3. Coreg 3.125 mg orally twice daily. 4. Fish oil 1 gram orally daily. 5. Lisinopril 10 mg orally daily. 6. Lomotil 1 tablet after each loose stool as needed for diarrhea 7. Metamucil 1/2 unit do se orally twice daily. 8. MiraLax 17 g orally daily as needed for diarrhea. 9. [place] 5/325 one or two tablets every 6 hours as needed for pain. 10. OxyContin 20 mg or ally twice daily. 11. Prilosec 20 mg orally daily. 12. Senna 1 or 2 tablets orally as needed for constipation. 13. Multivitamin once a day. 14. Vitamin D 50,000 units orally once a week. 15. Acyclovir 400 mg orally twice daily. DISCHARGE PLAN: To see Dr. Renee on 05/16/2012 at the [facility] in [place], [place] for clinical and laboratory followup with a lab or emily at 8:30 a.m. and doctor visit at 0900.DICTATED BY: Antonio Renee MD Oncology JOB #: [id number] EXT JOB #:[id number] cc: [facility] <Electronically Signed by Antonio Renee MD> 05/15/12 0750 documented in this encounter Medications at Time [...] | 03/25/20 | | | (VITAMIN D3) 75488 | mouth Once a week. | | [...] + | CBC WITH | Routin | 05/14/2012 | | Results for this | | DIFFERENTIAL | e | 7:01 AM | | procedure are in the | | | | PDT | | results section. | + +--------+ + + + | ABO RH | Routin | 05/13/2012 | | Results for this | | | e | 6:45 AM | | procedure are in the | | | | PDT | | results section. | + +--------+ + + + | ABO RH | Routin | 05/13/2012 | | | | | e | 6:45 AM | | | | | | PDT | | | + +--------+ + + + | CBC WITH | Routin | 05/13/2012 | | Results for this | | DIFFERENTIAL | e | 6:45 AM | | procedure are in the | | | | PDT | | results section. | + +--------+ + + + | ANTIBODY SCREEN | Routin | 05/13/2012 | | Results for this | | | e | 6:45 AM | | procedure are in the | | | | PDT | | results section. | + +--------+ + + + | BASIC METABOLIC | Routin | 05/13/2012 | | Results for this | | PANEL | e | 6:45 AM | | procedure are in the | | | | PDT | | results section. | + +--------+ + + + | CROSSMATCH (IN ML) | Routin | 05/13/2012 | | Results for this | | | e | 6:00 AM | | procedure are in the | | | | PDT | | results section. | + +--------+ + + + | CROSSMATCH (IN ML) | Routin | 05/13/2012 | | Results for this | | | e | 6:00 AM | | procedure are in the | | | | PDT | | results section. | + +--------+ + + + | CBC WITH | Routin | 05/12/2012 | | Results for this | | DIFFERENTIAL | e | 6:34 AM | | procedure are in the | | | | PDT | | results section. | + +--------+ + + + | CBC NO DIFFERENTIAL | Routin | 05/11/2012 | | Results for this | | | e | 6:30 AM | | procedure are in the | | | | PDT | | results section. | + +--------+ + + + | BASIC METABOLIC | Routin | 05/11/2012 | | Results for this | | PANEL | e | 6:30 AM | | procedure are in the | | | | PDT | | results section. | + +--------+ + + + | CBC WITH | Routin | 05/10/2012 | | Results for this | | DIFFERENTIAL | e | 7:24 AM | | procedure are in the | | | | PDT | | results section. | + +--------+ + + + | COMPREHENSIVE | Routin | 05/10/2012 | | Results for this | | METABOLIC PANEL | e | 7:24 AM | | procedure are in the | | | | PDT | | results section. | + +--------+ + + + | FL LUMBAR PUNCTURE | | 05/09/2012 | | Results for this | | DIAGNOSTIC | | 10:51 AM | | procedure are in the | | | | PDT | | results section. | + +--------+ + + + documented in this encounter Results CBC with Differential (05/14/2012 7:01 AM PDT) + + + + + + | Component | Value | Ref Range | Performed | Pathologist | | | | | At | Signature | + + + + + + | WBC | 5.7 (A) | 4.0 - 11.0 K/uL | [facility] | | | | | [facility] | | | | | [facility] | | | | | [facility] - | | | | | | LABORATORY | | + + + + + + | RBC | 3.30 (L) | 3.70 - 5.20 | [facility] | | | | | M/uL | [facility] | | | | | | [facility] | | | | | | C[facility] - | | | | | | LABORATORY | | + + + + + + | Hemoglobin | 11.3 (L) | 11.5 - 16.0 | [facility] | | | | | gm/dL | [facility] | | | | | | [facility] | | | | | | C[facility] - | | | | | | LABORATORY | | + + + + + + | Hematocrit | 30.7 (L) | 34.0 - 47.0 % | [facility] | | | | | | [facility] | | | | | | [facility] | | | | | | C[facility] - | | | | | | LABORATORY | | + + + + + + | MCV | 92.9 | 83.0 - 101.0 fL | [facility] | | | | | | [facility] | | | | | | [facility]ICAL | | | | | | C[facility] - | | | | | | LABORATORY | | + + + + + + | MCH | 34.1 | 28.0 - 35.0 pg | [facility] | | | | | | [facility] | | | | | | [facility] | | | | | | C[facility] - | | | | | | LABORATORY | | + + + + + + | MCHC | 36.7 (H) | 32.0 - 36.0 | [facility] | | | | | g/dL | [facility] | | | | | | [facility] | | | | | | C[facility] - | | | | | | LABORATORY | | + + + + + + | RDW-CV | 16.2 (H) | <15.0 % | [facility] | | | | | | [facility] | | | | | | [facility] | | | | | | [facility] - | | | | | | LABORATORY | | + + + + + + | Platelet | 259 | 140 - 440 K/uL | [facility] | | | Count | | | [facility] | | | | | | [facility] | | | | | | C[facility] - | | | | | | LABORATORY | | + + + + + + | % | 67.4 | 45 - 75 % | [facility] | | | Neutrophils | | | [facility] | | | | | | [facility] | | | | | | C[facility] - | | | | | | LABORATORY | | + + + + + + | % | 16.2 (L) | 20 - 45 % | [facility] | | | Lymphocytes | | | [facility] | | | | | | MEDICAL | | | | | | CENTER - | | | | | | LABORATORY | | + + + + + + | % Monocytes | 14.1 (H) | 4 - 12 % | [facility] | | | | | | [facility] | | | | | | [facility]ICAL | | | | | | CENTER - | | | | | | LABORATORY | | + + + + + + | % | 1.3 | 0 - 5 % | [facility] | | | Eosinophils | | | [facility] | | | | | | MEDICAL | | | | | | CENTER - | | | | | | LABORATORY | | + + + + + + | % Basophils | 1.0 | 0 - 1 % | [facility] | | | | | | [facility] | | | | | | MEDICAL | | | | | | CENTER - | | | | | | LABORATORY | | + + + + + + | Absolute | 3.9 | 1.5 - 6.6 K/uL | [facility] | | | Neutrophils | | | [facility] | | | | | | MEDICAL | | | | | | CENTER - | | | | | | LABORATORY | | + + + + + + | Absolute | 0.9 | 0.6 - 3.2 K/uL | [facility] [...] + | [facility] | [address] | [place] | [phone] | | [facility] | | [address] | | | - LABORATORY | | | | + + + + + | [facility] | [address] | [place] | | | [facility] | | [address] | | | - LABORATORY | | | | + + + + + ABO Rh (05/13/2012 6:45 AM PDT) + +-------+ + + + | Component | Value | Ref Range | Performed | Pathologist | | | | | At | Signature | + +-------+ + + + | ABO | AP | | [facility] | | | | | | [facility] | | | | | | [...] + | [facility] | [address] | [place] | [phone] | | [facility] | | [address] | | | - LABORATORY | | | | + + + + + | [facility] | [address] | [place] | | | [facility] | | [address] | | | - LABORATORY | | | | + + + + + Antibody Screen (05/13/2012 6:45 AM PDT) + + + + + [...] + | [facility] | [address] | [place], [place] | [phone] | | [facility] | | [address] | | | - LABORATORY | | | | + + + + + | [facility] | [address] | [place], [place] | | | [facility] | | [address] | | | - LABORATORY | | | | + + + + + ABO Rh (05/13/2012 6:45 AM PDT) + + | Specimen | + + | | + + + + + + + | Performing | Address | City/State/Zipcode | Phone Number | | Organization | | | | + + + + + | [facility] | [address] | [place] | [phone] | | [facility] | | [address] | | | - LABORATORY | | | | + + + + + Basic Metabolic Panel (05/13/2012 6:45 AM PDT) + + + + + + | Component | Value | Ref Range | Performed | Pathologist | | | | | At | Signature | + + + + + + | Glucose | 86 | 70 - 109 mg/dL | [facility] [...] + + + + | BUN/Creatin | 21.3 (H) | 12 - 20 | [facility] [...] + + + + | Cl | 114 (H) | 98 - 109 mEq/l | [...] + + + | Anion Gap | 4.5 (L) | 6.0 - 17.0 | [facility] [...] | + + + + + | [facility] | [address] | [place] | [phone] | | [facility] | | [address] | | | - LABORATORY | | | | + + + + + | [facility] | [address] | [place], [place] | | | [facility] | | [address] | | | - LABORATORY | | | | + + + + + CBC with Differential (05/13/2012 6:45 AM PDT) + + + + + [...] + + + + | RBC | 2.29 (L) | 3.70 - 5.20 | [facility] [...] + + + + | Hematocrit | 22.3 (L) | 34.0 - 47.0 % | [facility] | | | | | | [facility] | | | | | | MEDICAL | | | | | | CENTER - | | | | | | LABORATORY | | + + + + + + | MCV | 97.5 | 83.0 - 101.0 fL | [facility] [...] + + + + | MCHC | 36.0 | 32.0 - 36.0 | [facility] | | | | | g/dL | [facility] | | | | | | MEDICAL | | | | | | CENTER - | | | | | | LABORATORY | | + + + + + + | RDW-CV | 17.1 (H) | <15.0 % | [facility] | | | | | | [facility] | | | | | | MEDICAL | | | | | | CENTER - | | | | | | LABORATORY | | + + + + + + | Platelet | 222 | 140 - 440 K/uL | [facility] | | | Count | | | [facility] | | | | | | MEDICAL | | | | | | CENTER - | | | | | | LABORATORY | | + + + + + + | % | 65.3 | 45 - 75 % | [facility] | | | Neutrophils | | | [facility] | | | | | | MEDICAL | | | | | | CENTER - | | | | | | LABORATORY | | + + + + + + | % | 20.3 | 20 - 45 % | [facility] | | | Lymphocytes | | | [facility] | | | | | | MEDICAL | | | | | | CENTER - | | | | | | LABORATORY | | + + + + + + | % Monocytes | 12.8 (H) | 4 - 12 % | [...] + | [facility] | [address] | [place], [place] | [phone] | | [facility] | | [address] | | | - LABORATORY | | | | + + + + + | [facility] | [address] | [place], [place] | | | [facility] | | [address] | | | - LABORATORY | | | | + + + + + Product: PRBC (05/13/2012 6:00 AM PDT) + + + + [...] + + + | UNIT # | [id number] | | [facility] | | | | [...] [address] | [place] | [phone] | | [facility] | | [address] | | | - LABORATORY | | | | + + + + + | [facility] | | | | | [facility] | | | | | - LABORATORY | | | | + + + + + Product: PRBNaresh (05/13/2012 6:00 AM PDT) + + + + [...] + + + | UNIT # | [id number] | | [facility] | | | | [...] [address] | [place] | [phone] | | [facility] | | [address] | | | - LABORATORY | | | | + + + + + | [facility] | | | | | [facility] | | | | | - LABORATORY | | | | + + + + + CBC with Differential (05/12/2012 6:34 AM PDT) + + + + + + | Component | Value | Ref Range | Performed | Pathologist | | | | | At | Signature | + + + + + + | WBC | 5.8 | 4.0 - 11.0 K/uL | [facility] | | | | | [facility] | | | | | [facility] | | | | | | C[facility] - | | | | | | LABORATORY | | + + + + + + | RBC | 2.50 (L) | 3.70 - 5.20 [...] + + + + | Hematocrit | 24.3 (L) | 34.0 - 47.0 % | [facility] | | | | | | [facility] | | | | | | MEDICAL | | | | | | CENTER - | | | | | | LABORATORY | | + + + + + + | MCV | 96.9 | 83.0 - 101.0 fL | [facility] | | | | | | [facility] | | | | | | MEDICAL | | | | | | CENTER - | | | | | | LABORATORY | | + + + + + + | MCH | 34.6 | 28.0 - 35.0 pg | [facility] [...] + + + + | Platelet | 231 | 140 - 440 K/uL | [facility] | | | Count | | | [facility] | | | | | | MEDICAL | | | | | | CENTER - | | | | | | LABORATORY | | + + + + + + | % | 66.1 | 45 - 75 % | [facility] | | | Neutrophils | | | [facility] | | | | | | MEDICAL | | | | | | CENTER - | | | | | | LABORATORY | | + + + + + + | % | 22.6 | 20 - 45 % | [facility] | | | Lymphocytes | | | [facility] | | | | | | MEDICAL | | | | | | CENTER - | | | | | | LABORATORY | | + + + + + + | % Monocytes | 10.5 | 4 - 12 % | [facility] [...] + + + + | Absolute | 3.8 (A) | 1.5 - 6.6 K/uL | [...] [address] | [place] | [phone] | | [facility] | | [address] | | | - LABORATORY | | | | + + + + + | [facility] | [address] | [place] | | | [facility] | | [address] | | | - LABORATORY | | | | + + + + + Basic Metabolic Panel (05/11/2012 6:30 AM PDT) + + + + + + | Component | Value | Ref Range | Performed | Pathologist | | | | | At | Signature | + + + + + + | Glucose | 135 (H) | 70 - 109 mg/dL | [...] + + + + | BUN | 10 | 7 - 18 mg/dL | [facility] [...] + + + + | BUN/Creatin | 16.1 | 12 - 20 | [facility] | [...] + | [facility] | [address] | [place], [place] | [phone] | | [facility] | | [address] | | | - LABORATORY | | | | + + + + + | [facility] | [address] | [place], [place] | | | [facility] | | [address] | | | - LABORATORY | | | | + + + + + CBC no Differential (05/11/2012 6:30 AM PDT) + + + + + + | Component | Value | Ref Range | Performed | Pathologist | | | | | At | Signature | + + + + + + | WBC | 5.8 (A) | 4.0 - 11.0 K/uL | [facility] | | | | | | [facility] | | | | | | [facility]ICAL | | | | | | C[facility] - | | | | | | LABORATORY | | + + + + + + | RBC | 2.62 (L) | 3.70 - 5.20 | [facility] | | | | | M/uL | [facility] | | | | | | MEDICAL | | | | | | CENTER - | | | | | | LABORATORY | | + + + + + + | Hemoglobin | 9.2 (L) | 11.5 - 16.0 | [facility] | | | | | gm/dL | [facility] | | | | | | MEDICAL | | | | | | CENTER - | | | | | | LABORATORY | | + + + + + + | Hematocrit | 25.3 (L) | 34.0 - 47.0 % | [facility] | | | | | | [facility] | | | | | | MEDICAL | | | | | | CENTER - | | | | | | LABORATORY | | + + + + + + | MCV | 96.3 | 83.0 - 101.0 fL | [facility] | | | | | | [facility] | | | | | | [facility] | | | | | | [facility] - | | | | | | LABORATORY | | + + + + + + | MCH | 34.9 | 28.0 - 35.0 pg | [facility] | | | | | | [facility] | | | | | | MEDICAL | | | | | | CENTER - | | | | | | LABORATORY | | + + + + + + | MCHC | 36.2 (H) | 32.0 - 36.0 | [facility] [...] + | [facility] | [address] | [place] | [phone] | | [facility] | | [address] | | | - LABORATORY | | | | + + + + + | [facility] | [address] | [place] | | | [facility] | | [address] | | | - LABORATORY | | | | + + + + + Comprehensive Metabolic Panel (05/10/2012 7:24 AM PDT) + + + + [...] + + + + | Alkaline | 107 | 40 - 110 IU/L | [facility] [...] + + + + | Total | 5.5 (L) | 6.0 - 7.8 gm/dL | [facility] | | | Protein | | | [facility] | | | | | | MEDICAL | | | | | | CENTER - | | | | | | LABORATORY | | + + + + + + | Albumin | 3.5 | 3.2 - 5.0 gm/dL | [facility] | | | | | | [facility] | | | | | | [facility] | | | | | | CENTER - | | | | | | LABORATORY | | + + + + + + | BUN | 13 | 7 - 18 mg/dL | [facility] | | | | | | [facility] | | | | | | [facility]ICAL | | | | | | CENTER - | | | | | | LABORATORY | | + + + + + + | Creatinine | 0.69 | 0.60 - 1.30 | [facility] | [...] + + + + | BUN/Creatin | 18.8 | 12 - 20 | [facility] | [...] + + + | Anion Gap | 10.0 | 6.0 - 17.0 | [facility] | [...] + | [facility] | [address] | [place] | [phone] | | [facility] | | [address] | | | - LABORATORY | | | | + + + + + | [facility] | [address] | [place], [place] | | | [facility] | | [address] | | | - LABORATORY | | | | + + + + + CBC with Differential (05/10/2012 7:24 AM PDT) + + + + + + | Component | Value | Ref Range | Performed | Pathologist | | | | | At | Signature | + + + + + + | WBC | 4.3 (A) | 4.0 - 11.0 K/uL | [facility] | | | | | | [facility] | | | | | | [facility] | | | | | | C[facility] - | | | | | | LABORATORY | | + + + + + + | RBC | 2.70 (L) | 3.70 - 5.20 | [facility] | | | | | M/uL | [facility] | | | | | | MEDICAL | | | | | | CENTER - | | | | | | LABORATORY | | + + + + + + | Hemoglobin | 9.3 (L) | 11.5 - 16.0 | [facility] | | | | | gm/dL | [facility] | | | | | | MEDICAL | | | | | | CENTER - | | | | | | LABORATORY | | + + + + + + | Hematocrit | 26.3 (L) | 34.0 - 47.0 % | [facility] | | | | | | [facility] | | | | | | [facility] | | | | | | C[facility] - | | | | | | LABORATORY | | + + + + + + | MCV | 97.1 | 83.0 - 101.0 fL | [facility] [...] + + + + | MCHC | 35.3 | 32.0 - 36.0 | [facility] | | | | | g/dL | [facility] | | | | | [...] + + + + | Platelet | 228 | 140 - 440 K/uL | [facility] | | | Count | | | [facility] | | | | | | MEDICAL | | | | | | CENTER - | | | | | | LABORATORY | | + + + + + + | % | 56.3 | 45 - 75 % | [facility] | | | Neutrophils | | | [facility] | | | | | | MEDICAL | | | | | | CENTER - | | | | | | LABORATORY | | + + + + + + | % | 22.5 | 20 - 45 % | [facility] | | | Lymphocytes | | | [facility] | | | | | | MEDICAL | | | | | | CENTER - | | | | | | LABORATORY | | + + + + + + | % Monocytes | 20.0 (H) | 4 - 12 % | [facility] | | | | | | [facility] | | | | | | [...] + + + + | Absolute | 2.4 | 1.5 - 6.6 K/uL | [facility] [...] + | [facility] | [address] | [place], [place] | [phone] | | [facility] | | [id number] | | | - LABORATORY | | | | + + + + + | [facility] | [address] | [place], [place] | | | [facility] | | [id number] | | | - LABORATORY | | | | + + + + + FL Lumbar Puncture (05/09/2012 10:51 AM PDT) + + | Specimen | + + | | + + + + + | Narrative | Performed At | + + + | [facility] Diagnostic Imaging Department | [facility] | | [address] [facility] | [facility] | | FLUOROSCOPY-GUIDED LUMBAR | DIAG IMG | | PUNCTURE FOR INTRATHECAL CHEMOTHERAPY ADMINISTRATION, 05/09/2012 | | | CLINICAL HISTORY: BURKITT'S TUMOR. INTRATHECAL ACCESS REQUESTED | | | FOR CHEMOTHERAPY ADMINISTRATION. COMPARISON: Images from lumbar | | | puncture 04/11/2012 and 03/15/2012. PROCEDURE: After | | | explaining the potential risks and benefits of the procedure to the | | | patient, verbal and written consent were obtained. With the | | | patient in the prone position, fluoroscopy was utilized to identify | | | a suitable site for lumbar puncture at the L3 level. The overlying | | | skin was prepped and draped in sterile fashion, and approximately 5 | | | mL 1% lidocaine utilized for local anesthesia with fl uoroscopic | | | guidance. A 22-gauge, 3.5-inch spinal needle was subsequently | | | advanced into the thecal sa c at the L3 level utilizing a left | | | dorsal, intralaminar approach and fluoroscopic guidance. There wa s | | | immediate return of clear cerebrospinal fluid through the needle. A | | | spot image was saved to [employer] nt needle positioning. | | | Thelma was present and subsequently administered the | | | chemotherapeuti c agent through the needle without difficulty. The | | | needle was removed, and hemostasis assured at the puncture site with | | | direct manual compression. The patient tolerated the procedure | | | well, and there w ere no immediate complications. She was | | | transferred from the department in stable condition. IMPRESSION: | | | 1. TECHNICALLY SUCCESSFUL, FLUOROSCOPY-GUIDED LUMBAR PUNCTURE FOR | | | INTRATHECAL CHEMOTHERAPY ADMINISTR ATION, DESCRIBED. | | | Dictated Date/Time: 05/09/2012 13:48 Transcribed Date/Time: | | | 05/09/2012 13:53 Surgical Specialist: <Electronically Signed | | | by Moises Rodas MD> 05/09/12 2673 | | + + + + + | Procedure Note | + + | Philip Groves Conversion - 12/08/2013 5:39 PM [facility] | | Diagnostic Imaging Department [address] [facility] [place] | | FLUOROSCOPY-GUIDED LUMBAR PUNCTURE FOR INTRATHECAL | | CHEMOTHERAPY ADMINISTRATION, 05/09/2012 CLINICAL HISTORY: BURKITT'S TUMOR. INTRATHECAL | | ACCESS REQUESTED FOR CHEMOTHERAPY ADMINISTRATION. COMPARISON: Images from lumbar | | puncture 04/11/2012 and 03/15/2012. PROCEDURE: After explaining the potential risks | | and benefits of the procedure to the patient, verbal and written consent were obtained. | | With the patient in the prone position, fluoroscopy was utilized to identify a suitable | | site for lumbar puncture at the L3 level. The overlying skin was prepped and draped in | | sterile fashion, and approximately 5 mL 1% lidocaine utilized for local anesthesia with | | fluoroscopic guidance. A 22-gauge, 3.5-inch spinal needle was subsequently advanced | | into the thecal sac at the L3 level utilizing a left dorsal, intralaminar approach and | | fluoroscopic guidance. There was immediate return of clear cerebrospinal fluid through | | the needle. A spot image was saved to document needle positioning. Dr. Renee was | | present and subsequently administered the chemotherapeutic agent through the needle | | without difficulty. The needle was removed, and hemostasis assured at the puncture site | | with direct manual compression. The patient tolerated the procedure well, and there | | were no immediate complications. She was transferred from the department in stable | | condition. IMPRESSION: 1. TECHNICALLY SUCCESSFUL, FLUOROSCOPY-GUIDED LUMBAR PUNCTURE | | FOR INTRATHECAL CHEMOTHERAPY ADMINISTRATION, DESCRIBED. Dictated Date/Time: | | 05/09/2012 13:48Transcribed Date/Time: 05/09/2012 13:53Transcriptionist: | | <Electronically Signed by Moises Rodas MD> 05/09/12 2323 | |ere no immediate complications. She was transferred from the department in stable conditio n. | | | |IMPRESSION: | |1. TECHNICALLY SUCCESSFUL, FLUOROSCOPY-GUIDED LUMBAR PUNCTURE FOR INTRATHECAL CHEMOTHERAPY ADMINISTR | |ATION, DESCRIBED. | | | |Dictated Date/Time: 05/09/2012 13:48 | |Transcribed Date/Time: 05/09/2012 13:53 | |Surgical Specialist: | |<Electronically Signed by Moises Rodas MD> 05/09/12 2323 | + + + +---------+ + + | Performing | Address | City/State/Zipcode | Phone Number | | Organization | | | | + +---------+ + + | [facility] | | | | [facility] | | | | + +---------+ + + documented in this encounter Visit Diagnoses Not on filedocumented in this encounter"
--- OUTSIDE RECORDS SUMMARY | ~2019-09-11 | XMS | Encounter Summary ---
Demographics + + + | Address | [address] | | | [place] [address] | + + + | Home Phone [...] | Author | [facility] | | | and Hermannana | + + + | Organization | [facility] | | | and [...] [place], [place] | | | | | [address] | | + + + + + | Greta Broncheau | ECON | [place], [place] | | | | | [address] | | + + + + + Care Team Providers + +------+ + | Care Sheep Boner Name | Role | Phone | + +------+ + PCP | Unavailable | + +------+ + Encounter Details +--------+ + + + + | Date | Type | Department | Care Team | Description | +--------+ + + + + | 07/21/ | Hospital | [facility] | Thelma, | | | 2011 - | Encounter | MED [facility] | Antonio Infante MD [address] | | | | | [place] [address] | [place] | | | 07/31/ | | [place], [place] | [place] [address] | | | 2011 | | [address] | [phone] | | | | | [phone] | | | +--------+ + + + [...] | 03/25/20 | | | (VITAMIN D3) 25996 | mouth Once a week. | | | 12 | 4 | | UNITS CAPS | | | | | | + + + +---------+ + + | Coenzyme S08-Kjtb | one by mouth daily | | [...] Frida Christian is a 51-year-old woman from [place], [place] with Bu rkitt's lymphoma. ACTIVE DIAGNOSES: 1. Presentation in August of 2011 with intractable searing abdominal pain. Symptoms progr essed and on October 05, 2011, she underwent advanced imaging that demonstrated diffuse mal ignant lymphadenopathy throughout the retroperitoneum. 2. Laparoscopic lymph node biopsy on November 10, 2011 at [facility] demonstrated high-grade B cell lymphoma consistent with [...] uni ts orally once a week. 5. Darlington 5/325, 1 or 2 tablets every 4-6 hours as needed for pain. 6. Dilaudid 2 mg every 4 hours as needed for pain. 7. Lisinopril 10 mg orally daily. 8. Ativan 1 mg every 4 hours as needed for nausea, anxiety, or restlessness. 9. Multivitam in once a day. 10. Redfield-3 fish oil 1 g orally daily. 11. [...] referred back to Dr. Silvio Mendoza in [place], [place] to have her Por t-A-Cath removed. She will return to see me for observation and surveillance every 3 months and prefers to have her followup visits at the [facility] here in [place], [place]. cc: [facility] Dylan Martinez MD, [facility] <Electronically Signed by [...] + | [facility] | [address] | [place] | [phone] | | [facility] | | [address] | | | - LABORATORY | | | | + + + + + | [facility] | [address] | [place] | | | [facility] | | [address] | | | - LABORATORY | | [...] + | [facility] | [address] | [place] | [phone] | | [facility] | | [address] | | | - LABORATORY | | | | + + + + + | [facility] | [address] | [place] | | | [facility] | | [address] | | | - LABORATORY | | [...] + | [facility] | [address] | [place] | [phone] | | [facility] | | [address] | | | - LABORATORY | | | | + + + + + | [facility] | [address] | [place], [place] | | | [facility] | | [address] | | | - LABORATORY | | | | + + + + + documented in this encounter Visit Diagnoses Not on filedocumented in this encounter"
--- OUTSIDE RECORDS SUMMARY | ~2019-09-11 | XMS | Encounter Summary ---
Demographics + + + | Address | [address] | | | [place] [address] | + + + | Home Phone | | + + + | Preferred Language | Unknown | + + + | Marital Status | | + + + | Hindu Affiliation | Unknown | + + + | Race | Unknown | + + + | Ethnic Group | Unknown | + + + Author + + + | Author | [facility] | | | and Hermannana | + + + | Organization | [facility] | | | and [...] [place], [place] | | | | | [address] | | + + + + + | Greta Estebaneau | ECON | [place], [place] | | | | | [address] | | + + + + + Care Team Providers + +------+ + | Care Functional Support Analyst Name | Role | Phone | + [...] + + | 08/20/ | Telephone | [facility] | Endy Polo, | Appointment | | 2013 | | CARDIOLOGY [address] | MD [address] | | | | | [place], | [place], | | | | | [place] [address] | [place] [address] | | | | | [phone] | [phone] | | | | | | | [...]
--- OUTSIDE RECORDS SUMMARY | ~2019-09-11 | XMS | Clinical Summary ---
Demographics + + + | Address | [address] | | | [place] [address] | + + + | Home Phone [...] Author + + + | Author | [facility] | + + + | Organization | [facility] | + + + | Address | Unknown | + + + | Phone | Unavailable | + + + Support + + + + + | Name | Relationship | Address | Phone | + + + + + | Yue Fischer | ECON | [address] | | | | | [place] | | | | | [address] | | + + + + + | Greta Mccauleyu | ECON | Unknown | | + + + + + Care Team Providers + +------+ + | Care Manager Summer Name | Role | Phone | + +------+ + | Becky Jennings | PCP | | + +------+ + Source Comments [facility] is fully live on both [facility] and [facility] Allergies No Known Allergies Medications + + [...] | 2 | + + + + Encounters +--------+ + + + + | Date | Type | Specialty | Care Team | Description | +--------+ + + + + | 08/15/ | Documentati | | Other, Faculty | | | 2019 | on | | | | +--------+ + + + + from Last 3 Months Family History + + +------+ + | [...] PLUS | | 12-Pre | 6 | [id number] | id | | | OPEN | | sent | | [place], [place] | | | | CARD | | | | [id number] | | + +--------+ +--------+ + +--------+ | [facility] | [phone] | 11/07/18 | | | [...] | 1961 | [phone] | [place] [address] | | | shonda | | | 8 (Home) | | + +--------+ +--------+ + + | Frida Christian | Agency | Self | [birth year] | [address] | | | | | 1961 | [phone] | [place] [address] | | | | | | 8 [...]
--- OUTSIDE RECORDS SUMMARY | ~2019-09-11 | XMS | Encounter Summary ---
Demographics + + + | Address | [address] | | | [place] [address] | + + + | Home Phone | | + + + | Preferred Language | Unknown | + + + | Marital Status | | + + + | Rastafarian Affiliation | Unknown | + + + | Race | Unknown | + + + | Ethnic Group | Unknown | + + + Author + + + | Author | [facility] | | | and Hermannana | + + + | Organization | [facility] [...] [place], [place] | | | | | [address] | | + + + + + | Greta Broncheau | ECON | [place], [place] | | | | | [address] | | + + + + + Care Team Providers + +------+ + | Care Bricklayer Supervisor Name | Role | Phone | [...] Cardiomyopat | ELLEN Albarran | [address] | | | | | hy (HCC) | [address] | [place], | | | | | Procedures | [place] | [place] | | | | | [place] Cardiac | [place], | [address] | | | | | MUGA Scan | [place] | Phone: | | | | | | [address] | [phone] | | | | | | Phone: | Fax: | | | | | | [phone] | [phone] | | | | | | Fax: | | | | | | | [phone] | | +--------+--------+ + + + + Reason for Visit + + + | Reason | Comments | + + + | Follow-up | | + + + | Cardiomyopathy | | + + + Encounter Details +--------+---------+ + + + | Date | Type | Department | Care Team | Description | +--------+---------+ + + + | 02/15/ | Office | [facility] | Lm, | Cardiomyopathy (HCC) | | 2012 | Visit | CARDIOLOGY [address] | ELLEN Albarran [address] | (Primary Dx); Chest | | | | [place], | [place], | pain; Nonischemic/ | | | | [place] [address] | [place] [address] | chemotherapy | | | | [phone] | [phone] | induced | | | | | [...] classic 1981 Laparoscopic lymph node biopsy at [facility], grade b cell lymphoma 11/10/2011 Port for [...] capsules by mouth Daily. Cholecalciferol (VITAMIN D3) 60584 UNITS CAPS Take 50,000 Units by mouth [...] adequa te echocardiography images. In consultation with object oriented developer reading the exam, LVEF is est imated [...] Patient is in class I of the [place] [employer] functional class. T here is [...] made to ensure accuracy; however, inadvertent computerized health program specialist errors may be pre sent. documented in this encounter Plan of Treatment Not on filedocumented as of this encounter Results [place] Cardiac MUGA Scan (06/13/2013 12:25 PM PDT) + + | Specimen | + + | | + + + + + | Narrative | Performed At | + + + | [facility] | [place] | | Department [address] [facility] | [facility] | | [ rep [address]] [ rep [facility] | | [facility]] Signed | - IMAGING | | | | | Patient Name: ZOFIA YOUNG Physician: | | | RHYN.01 : 1960 Age: 52 Sex: F Unit #: [id number] | | | Exam Date: 06/13/13 Location: [facility] | | | Report #: [id number] Page: | | | %(RAD)RES..mtdd.print.filter("pg") of %(RAD) | | | RES..mtdd.print.filter("tpg") | | | | | | Accession Number: [id number] | | | REST EQUILIBRIUM VENTRICULOGRAPHY/MARKER SCAN: [...] Transcribed | | | Date/Time: 06/13/2013 12:52 Line Crew Supervisor: | | | <<Signature on File>> | | | Endy | | | MD Melani FACC FASTucker06/14/13 0643 <Electronically signed by | | | Endy Polo MD, FACC, FACP, JOSE, BENJAMIN> Georgeong | | | MD [facility] JOSE 06/13/13 1225 Line Crew Supervisor: Nabil | | | [email or web address]/13/13 125[address] | | + + + + + + + + | Performing | Address | City/State/Zipcode | Phone Number | | Organization | | | | + + + + + | [facility] | [address] | [place] | [phone] | | [facility] | | [address] | | | - IMAGING | | | | + + + + + documented in this encounter Visit Diagnoses + + | Diagnosis | + + | Nonischemic/ chemotherapy induced cardiomyopathy - Primary Other primary | | cardiomyopathies | + + | Chest pain Chest pain, unspecified | + + documented in this encounter
--- OUTSIDE RECORDS SUMMARY | ~2019-09-11 | XMS | Encounter Summary ---
Demographics + + + | Address | [address] | | | [place] [address] | + + + | Home Phone | | + + + | Preferred Language | Unknown | + + + | Marital Status | | + + + | Shinto Affiliation | Unknown | + + + | Race | Unknown | + + + | Ethnic Group | Unknown | + + + Author + + + | Author | [facility] | | | and Hermannana | + + + | Organization | [facility] | | | and [...] [place], [place] | | | | | [address] | | + + + + + | Greta Broncheau | ECON | [place], [place] | | | | | [address] | | + + + + + Care Team Providers + +------+ + | Care Overlocker Name | Role | Phone | + +------+ + PCP | Unavailable | + +------+ + Encounter Details +--------+ + + + + | Date | Type | Department | Care Team | Description | +--------+ + + + + | 01/27/ | Hospital | [facility] | [place], | | | 2011 - | Encounter | MED CTR MED ONC | Antonio Infante MD [address] | | | | [address] [place] | [address] [place] | | | 02/08/ | | [place] [address] | [place] [address] | | | 2011 | | [phone] | [phone] | | | | | | | [...] Dr. Leander Last [facility] was c onsulted on 08/10/2012 and agreed to accept the patient in transfer. IDENTIFYING STATEMENT: Frida Christian is a 51-year-old woman with an establi shed diagn osis of Burkitt's lymphoma, who was admitted on 01/28/2012 to the [facility] in [place], [place], for neutropenic fever and, durin g the course of her hospitalizat ion, received advancing doses of vancomycin, up to 1.5 gra ms intravenously every 8 hours, and was fou nd to have acute tubular necrosis on 02/08/2012 with renal failure and bilateral pulmonary infiltrate s. She is now being transferred to [facility] for critical care managem ent which may [...] furosemide. Frida will be transferred to the [facility] fo r acute dialysis if necessary to [...] suppo rt; also, not available currently at [facility] and, hence, if necessary, thi s will be performed also at [facility] after transfer. The case was discussed with Dr. Leander Last of the Department of Hematological Malignancie s, who is covering for the patient's primary oncologist, Dr. Dylan Martinez, and agrees to accept the patien t in transfer to the 14-K corey at [facility] . DICTATED BY: Antonio Renee MD Oncology JOB #: [id number] EXT JOB #:[id number] <Electronicall y Signed by Antonio Renee MD> 02/09/12 1013 documented in this encounter Plan of Treatment [...] | + +--------+ + + + | VANCOMYCINBLAKE | Routin | 02/01/2012 | | Results for this | | | e | 7:14 AM | | procedure are in the | | | | PDT | | results section. | + +--------+ + + + | VANCOMYCIN TROUGH | Routin | 01/30/2012 | | [...] | + +--------+ + + + | AMY TROUGH | Routin | 01/29/2012 | | [...] + + documented in this encounter Results [facility] [[email or web address] Metabolic Panel (02/09/2012 5:48 AM PDT) + [...] | 14.1 | 6.0 - 17.0 | [facility] | [...] + | Performing | Address | City/[facility] [place] | Phone Number | | Organization | | | | + + + + + | [facility] | [address] | [place] | [phone] | | [facility] | | [address] | | | - LABORATORY | | | | + + + + + | [facility] | [address] | [place] | | | [facility] | | [address] | | | - LABORATORY | | [...] [facility] | | | | | | [facility] | | | | | | MEDICAL | | | | | | [facility] - | | | | | | LABORATORY | | + +-------+ + + + + + | Specimen | + + | | + + + + + + + | Performing | Address | City/State/Zipcode | Phone Number | | Organization | | | | + + + + + | [facility] | [address] | [place], [place] | [phone] | | [facility] | | [address] | | | - LABORATORY | | | | + + + + + | [facility] | [address] | [place], [place] | | | [facility] | | [address] | | | - LABORATORY | | | | + + + + + CBC with Differential (02/09/2012 5:48 AM PDT) + + + + + + | Component | Value | Ref Range | Performed | Pathologist | | | | | At | Signature | + + + + + + | WBC | 2.4 (LL)Comment: @VALUE | 4.0 - 11.0 K/uL | [facility] | | | | CONSISTENT WITH PREVIOUS | | [facility] | | | | RESULTS | | MEDICAL | | | | | | CENTER - | | | | | | LABORATORY | | + + + + + + | RBC | 2.30 (L) | 3.70 - 5.20 [...] | PROBLEM IS: | Diff | | [facility] | | | [...] + | [facility] | [address] | [place] | [phone] | | [facility] | | [address] | | | - LABORATORY | | | | + + + + + | [facility] | [address] | [place] | | | [facility] | | [address] | | | - LABORATORY | | [...] 3.23 (H) | 0.60 - 1.30 | [facility] | | | | | mg/dL | [facility] | | | | | | MEDICAL | | | | | | CENTER - | | | | | | LABORATORY | | + + + + + + | Estimated | 15 (L)Comment: For | >60 mL/min/A | [facility] | [...] 5.0 (L) | 12 - 20 | [facility] | [...] | 13.4 | 6.0 - 17.0 | [facility] | [...] [address] | [place] | [phone] | | [facility] | | [address] | | | - LABORATORY | | | | + + + + + | [facility] | [address] | [place] | | | [facility] | | [address] | | | - LABORATORY | | [...] | RANGE FOR RANDOM URINE | | [facility] | | | Random | SPECIMEN | [...] + | [facility] | [address] | [place], [place] | [phone] | | [facility] | | [address] | | | - LABORATORY | | | | + + + + + | [facility] | [address] | [place], [place] | | | [facility] | | [address] | | | - LABORATORY | | | | + + + + + Terell GUTIERREZ Reflex (02/08/2012 2:16 PM PDT) + + + + + + | Component | Value | Ref Range | Performed | Pathologist | | | | | At | Signature | + + + + + + | WBC UA | 2-4 | 0 - 1 /hpf | [facility] | | [facility] | | | | | | MEDICAL | | | | | | CENTER - | | | | | | LABORATORY | | + + + + + + | RBC UA | 0-2 | 0 - 4 /hpf | [facility] | | | | | [facility] | | | | | | MEDICAL | | | | | | CENTER - | | | | | | LABORATORY | | + + + + + + | SQUAMOUS | MODERATE | FEW /hps | [facility] | | | EPITHELIAL | | | [facility] | | | UA | | | MEDICAL | | | | | | CENTER - | | | | | | LABORATORY | | + + + + + + | BACTERIA UA | FEW | NONE /hpf | [facility] | | | | | [...] [address] | [place] | [phone] | | [facility] | | [address] | | | - LABORATORY | | | | + + + + + | [facility] | [address] | [place] | | | [facility] | | [address] | | | - LABORATORY | | | | + + + + + Urinalysis, Reflex Microscopic and/or Culture (02/08/2012 2:16 PM PDT) + + + + + + | Component | Value | Ref Range | Performed | Pathologist | | | | | At | Signature | + + + + + + | COLLECTION | VOID | | [facility] | | | METHOD [facility] | | | [facility] | | | | | | MEDICAL | | | | | | CENTER - | | | | | | LABORATORY | | + + + + + + | Color | YELLOW | | [facility] | | | | | [facility] | | | | | | MEDICAL | | | | | | CENTER - | | | | | | LABORATORY | | + + + + + + | Clarity | HAZY | | [facility] | | | | [...] - 1.030 | [facility] | | | [place] | | | [facility] | | [...] | | ? | | | [facility] | | | | | | MEDICAL [...] + | [facility] | [address] | [place] | [phone] | | [facility] | | [address] | | | - LABORATORY | | | | + + + + + | [facility] | [address] | [place] | | | [facility] | | [address] | | | - LABORATORY | | [...] | RANGE FOR RANDOM URINE | | [facility] | | | Random | SPECIMEN | [...] + | [facility] | [address] | [place], [place] | [phone] | | [facility] | | [address] | | | - LABORATORY | | | | + + + + + | [facility] | [address] | [place], [place] | | | [facility] | | [address] | | | - LABORATORY | | [...] [facility] | [address] | [place] | [phone] | | [facility] | | [address] | | | - LABORATORY | | | | + + + + + | [facility] | [address] | [place] | | | [facility] | | [address] | | | - LABORATORY | | | | + + + + + CBC with Differential (02/08/2012 7:03 AM PDT) + + + + + + | Component | Value | Ref Range | Performed | Pathologist | | | | | At | Signature | + + + + + + | WBC | 2.4 (LL)Comment: @VALUE | 4.0 - [...] | PROBLEM IS: | Diff | | [facility] | | | [...] + | [facility] | [address] | [place] | [phone] | | [facility] | | [address] | | | - LABORATORY | | | | + + + + + | [facility] | [address] | [place] | | | [facility] | | [address] | | | - LABORATORY | | | | + + + + + Basic Metabolic Panel (02/07/2012 6:31 AM PDT) + + + + + + | Component | Value | Ref Range | Performed | Pathologist | | | | | At | Signature | + + + + + + | Glucose | 96 | 70 - 109 mg/dL | [facility] | | | | | [...] + | Performing | Address | City/[facility]/Zipcode | Phone Number | | Organization | | | | + + + + + | [facility] | [address] | [place] | [phone] | | [facility] | | [address] | | | - LABORATORY | | | | + + + + + | [facility] | [address] | [place] | | | [facility] | | [address] | | | - LABORATORY | | | | + + + + + CBC with Differential (02/07/2012 6:31 AM PDT) + + + + + + | Component | Value | Ref Range | Performed | Pathologist | | | | | At | Signature | + + + + + + | WBC | 1.4 (LL)Comment: @VALUE | 4.0 - 11.0 K/uL | [facility] | | | | CONSISTENT WITH PREVIOUS | | [facility] | | | | RESULTS | | MEDICAL | | | | | | CENTER - | | | | | | LABORATORY | | + + + + + + | RBC | 2.09 (L) | 3.70 - 5.20 [...] | . [facility] | | | | CRITICAL VALUE | [...] IVÁN | | | | | | VALERIE/ELMO 02/07/12 | | | | | | @0637 by KARLOS @ * | | | | | [...] [address] | [place] | [phone] | | [facility] | | [address] | | | - LABORATORY | | | | + + + + + | [facility] | [address] | [place] | | | [facility] | | [address] | | | - LABORATORY | | [...] 8.0 (L) | 8.3 - 10.5 | [facility] | | | | | [...] + | [facility] | [address] | [place] | [phone] | | [facility] | | [address] | | | - LABORATORY | | | | + + + + + | [facility] | [address] | [place], [place] | | | [facility] | | [address] | | | - LABORATORY | | | | + + + + + CBC with Differential (02/06/2012 6:27 AM PDT) + + + + + + | Component | Value | Ref Range | Performed | Pathologist | | | | | At | Signature | + + + + + + | WBC | 1.4 (LL)Comment: @VALUE | 4.0 - 11.0 K/uL | [facility] | | | | CONSISTENT WITH PREVIOUS | | [facility] | | | | RESULTS | | MEDICAL | | | | | | CENTER - | | | | | | LABORATORY | | + + + + + + | RBC | 2.75 (L) | 3.70 - 5.20 [...] + | [facility] | [address] | [place], [place] | [phone] | | [facility] | | [address] | | | - LABORATORY | | | | + + + + + | [facility] | [address] | [place], [place] | | | [facility] | | [address] | | | - LABORATORY | | [...] + | [facility] | [address] | [place] | [phone] | | [facility] | | [address] | | | - LABORATORY | | | | + + + + + | [facility] | [address] | [place] | | | [facility] | | [address] | | | - LABORATORY | | [...] | | | | | | [facility] | | | | | | MEDICAL [...] + | [facility] | [address] | [place] | [phone] | | [facility] | | [address] | | | - LABORATORY | | | | + + + + + | [facility] | [address] | [place] | | | [facility] | | [address] | | | - LABORATORY | | [...] + | [facility] | [address] | [place], [place] | [phone] | | [facility] | | [address] | | | - LABORATORY | | | | + + + + + | [facility] | [address] | [place], [place] | | | [facility] | | [address] | | | - LABORATORY | | | | + + + + + ABO Rh (02/05/2012 1:12 PM PDT) + + | Specimen | + + | | + + + + + + + | Performing | Address | City/State/Zipcode | Phone Number | | Organization | | | | + + + + + | [facility] | [address] | [place] | [phone] | | [facility] | | [address] | | | - LABORATORY | | [...] | | Code | | | [facility] | | | | | | MEDICAL | | | | | | CENTER - | | | | | | LABORATORY | | + + + + + + | UNIT # | [id number] | | [facility] | | | | [...] ST. | [address] | [place] | [phone] | | [facility] | | [address] | | | - LABORATORY | | | | + + + + + | [facility] | | | | | [facility] | | | | | [...] | | | POTASSIUM OFTEN | | [facility] | | | | [facility] [...] ST. | [address] | [place] | [phone] | | [facility] | | [address] | | | - LABORATORY | | | | + + + + + | [facility] | [address] | [place] | | | [facility] | | [address] | | | - LABORATORY | | | | + + + + + CBC with Differential (02/05/2012 8:05 AM PDT) + + + + + + | Component | Value | Ref Range | Performed | Pathologist | | | | | At | Signature | + + + + + + | WBC | 1.3 (LL)Comment: @VALUE | 4.0 - 11.0 K/uL | [facility] | | | | CONSISTENT WITH PREVIOUS | | [facility] | | | | RESULTS | | MEDICAL | | | | | | CENTER - | | | | | | LABORATORY | | + + + + + + | RBC | 2.56 (L) | 3.70 - 5.20 [...] Neutrophils | CONSISTENT WITH PREVIOUS | | [facility] [...] + | [facility] | [address] | [place], [place] | [phone] | | [facility] | | [address] | | | - LABORATORY | | | | + + + + + | [facility] | [address] | [place], [place] | | | [facility] | | [address] | | | - LABORATORY | | [...] | 8.2 | 6.0 - 17.0 | [facility] | | | | | | ST. [...] [address] | [place] | [phone] | | [facility] | | [address] | | | - LABORATORY | | | | + + + + + | [facility] | [address] | [place] | | | [facility] | | [address] | | | - LABORATORY | | | | + + + + + CBC with Differential (02/04/2012 6:23 AM PDT) + + + + + + | Component | Value | Ref Range | Performed | Pathologist | | | | | At | Signature | + + + + + + | WBC | 1.4 (LL)Comment: @VALUE | 4.0 - 11.0 K/uL | [facility] | | | | CONSISTENT WITH PREVIOUS | | [facility] | | | | RESULTS | | MEDICAL | | | | | | CENTER - | | | | | | LABORATORY | | + + + + + + | RBC | 2.76 (L) | 3.70 - 5.20 [...] + | [facility] | [address] | [place] | [phone] | | [facility] | | [address] | | | - LABORATORY | | | | + + + + + | [facility] | [address] | [place] | | | [facility] | | [address] | | | - LABORATORY | | | | + + + + + Potassium (02/03/2012 12:41 PM PDT) + + + + + + | Component | Value | Ref Range | Performed | Pathologist | | | | | At | Signature | + + + + + + | K | 2.8 (L)Comment: LOW | 3.5 - 5.1 mEq/l | [facility] | | | | [facility] | [address] | [place] | [phone] | | [facility] | | [address] | | | - LABORATORY | | | | + + + + + | [facility] | [address] | [place] | | | [facility] | | [address] | | | - LABORATORY | | | | + + + + + CBC with Differential (02/03/2012 7:25 AM PDT) + + + + + + | Component | Value | Ref Range | Performed | Pathologist | | | | | At | Signature | + + + + + + | WBC | 1.1 (LL)Comment: @VALUE | 4.0 - 11.0 K/uL | [facility] | | | | CONSISTENT WITH PREVIOUS | | [facility] | | | | RESULTS | | MEDICAL | | | | | | CENTER - | | | | | | LABORATORY | | + + + + + + | RBC | 3.10 (L) | 3.70 - 5.20 [...] | | | Comment: | | [facility] | | | | Leukopenia | [address] | [place] | [phone] | | [facility] | | [address] | | | - LABORATORY | | | | + + + + + | [facility] | [address] | [place] | | | [facility] | | [address] | | | - LABORATORY | | [...] LOW | 3.5 - 5.1 mEq/l | [facility] | | | | [facility] | [...] + | [facility] | [address] | [place], [place] | [phone] | | [facility] | | [address] | | | - LABORATORY | | | | + + + + + | [facility] | [address] | [place], [place] | | | [facility] | | [address] | | | - LABORATORY | | [...] + | [facility] | [address] | [place] | [phone] | | [facility] | | [address] | | | - LABORATORY | | | | + + + + + | [facility] | [address] | [place], [place] | | | [facility] | | [address] | | | - LABORATORY | | | | + + + + + ABO Rh (02/02/2012 9:02 AM PDT) + +-------+ + + + | Component | Value | Ref Range | Performed | Pathologist | | | | | At | Signature | + +-------+ + + + | ABO | AP | | [facility] | | | | [...] [address] | [place] | [phone] | | [facility] | | [address] | | | - LABORATORY | | | | + + + + + | [facility] | [address] | [place] | | | [facility] | | [address] | | | - LABORATORY | | [...] + | [facility] | [address] | [place] | [phone] | | [facility] | | [address] | | | - LABORATORY | | | | + + + + + | [facility] | [address] | [place], [place] | | | [facility] | | [address] | | | - LABORATORY | | | | + + + + + ABO Rh (02/02/2012 9:02 AM PDT) + + | Specimen | + + | | + + + + + + + | Performing | Address | City/State/Zipcode | Phone Number | | Organization | | | | + + + + + | [facility] | [address] | [place] | [phone] | | [facility] | | [address] | | | - LABORATORY | | [...] + + + | UNIT # | [id number] | | [facility] | | | | [...] [facility]. | [address] | [place] | [phone] | | [facility] | | [address] | | | - LABORATORY | | | | + + + + + | [facility] | | | | | [facility] | | | | | [...] + + + | UNIT # | [id number] | | [facility] | | | | [address] | [place] | [phone] | | [facility] | | [address] | | | - LABORATORY | | | | + + + + + | [facility] | | | | | [facility] | | | | | [...] | | | | | 02/01/12 @ 4578 by | | | | | | HARLANLI | | | | + + + + + + + + | Specimen | + + | | + + + + + + + | Performing | Address | City/State/Zipcode | Phone Number | | Organization | | | | + + + + + | [facility] | [address] | [place] | [phone] | | [facility] | | [address] | | | - LABORATORY | | | | + + + + + | [facility] | [address] | [place], [place] | | | [facility] | | [address] | | | - LABORATORY | | [...] + | [facility] | [address] | [place], [place] | [phone] | | [facility] | | [address] | | | - LABORATORY | | | | + + + + + | [facility] | [address] | [place] | | | [facility] | | [address] | | | - LABORATORY | | [...] | OPTIMAL TROUGH VALUE: | | [facility] | | | | 10-20 ug/dL | [...] + | [facility] | [address] | [place] | [phone] | | [facility] | | [address] | | | - LABORATORY | | | | + + + + + | [facility] | [address] | [place], [place] | | | [facility] | | [address] | | | - LABORATORY | | [...] | 0.63 | 0.60 - 1.30 | [facility] | [...] | 8.2 | 6.0 - 17.0 | [facility] | [...] [address] | [place] | [phone] | | [facility] | | [address] | | | - LABORATORY | | | | + + + + + | [facility] | [address] | [place] | | | [facility] | | [address] | | | - LABORATORY | | | | + + + + + CBC with Differential (01/30/2012 6:03 AM PDT) + + + + + + | Component | Value | Ref Range | Performed | Pathologist | | | | | At | Signature | + + + + + + | WBC | 0.2 (LL)Comment: @VALUE | 4.0 - 11.0 K/uL | [facility] | | | | CONSISTENT WITH PREVIOUS | | [facility] | | | | RESULTS | | MEDICAL | | | | | | CENTER - | | | | | | LABORATORY | | + + + + + + | RBC | 2.22 (L) | 3.70 - 5.20 [...] + | [facility] | [address] | [place], [place] | [phone] | | [facility] | | [address] | | | - LABORATORY | | | | + + + + + | [facility] | [address] | [place], [place] | | | [facility] | | [address] | | | - LABORATORY | | [...] | Peak | | ug/mL | [facility] | | | | [...] [address] | [place] | [phone] | | [facility] | | [address] | | | - LABORATORY | | | | + + + + + | [facility] | [address] | [place] | | | [facility] | | [address] | | | - LABORATORY | | [...] + | [facility] | [address] | [place] | [phone] | | [facility] | | [address] | | | - LABORATORY | | | | + + + + + | [facility] | [address] | [place], [place] | | | [facility] | | [address] | | | - LABORATORY | | [address] | [place] | [phone] | | [facility] | | [address] | | | - LABORATORY | | | | + + + + + | [facility] | [address] | [place] | | | [facility] | | [address] | | | - LABORATORY | | | | + + + + + ABO Rh (01/29/2012 8:38 AM PDT) + + | Specimen | + + | | + + + + + + + | Performing | Address | City/State/Zipcode | Phone Number | | Organization | | | | + + + + + | [facility] | [address] | [place] | [phone] | | [facility] | | [address] | | | - LABORATORY | | [...] + | [facility] | [address] | [place], [place] | [phone] | | [facility] | | [address] | | | - LABORATORY | | | | + + + + + | [facility] | [address] | [place], [place] | | | [facility] | | [address] | | | - LABORATORY | | | | + + + + + Product: LEXII (01/29/2012 8:26 AM PDT) + + + [...] + + + | UNIT # | [id number] | | [facility] | | | | [...] [address] | [place] | [phone] | | [facility] | | [address] | | | - LABORATORY | | | | + + + + + | [facility] | | | | | [facility] | | | | | [...] + + + | UNIT # | [id number] | | [facility] | | | | [...] [address] | [place] | [phone] | | [facility] | | [address] | | | - LABORATORY | | | | + + + + + | [facility] | | | | | [facility] | | | | | [...] + + + | UNIT # | [id number] | | [facility] | | | | | [...] + | [facility] | [address] | [place] | [phone] | | [facility] | | [address] | | | - LABORATORY | | | | + + + + + | [facility] | | | [facility] | | | | | - LABORATORY | | | | + + + + + Product: LEXII (01/29/2012 8:26 AM PDT) + + + [...] + + + | UNIT # | [id number] | | [facility] | | | | [...] [address] | [place] | [phone] | | [facility] | | [address] | | | - LABORATORY | | | | + + + + + | [facility] | | | | | [facility] | | | | | [...] [facility] | | | | | | [facility] | | | | | | MEDICAL | | | | | | CENTER - | | | | | | LABORATORY | | + + + + + + | Calcium | 8.2 (L) | 8.3 - 10.5 | [facility] | | | | | [...] + | [facility] | [address] | [place] | [phone] | | [facility] | | [address] | | | - LABORATORY | | | | + + + + + | [facility] | [address] | [place] | | | [facility] | | [address] | | | - LABORATORY | | [...] + + + + | RBC | 2.23 (L) | 3.70 - 5.20 [...] (LL)Comment: | 34.0 - 47.0 % | [facility] | | | | | [...] GILBERTO | | | | | | DODGEN 01/29/12 @0550 by | | | | [...] + | [facility] | [address] | [place] | [phone] | | [facility] [facility] | | [id number] | | | - LABORATORY | | | | + + + + + | [facility] | [address] | [place], [place] | | | [facility] | | [id number] | | | - LABORATORY | | | | + + + + + XR Chest PA and Lateral (01/28/2012 2:34 PM PDT) + + | Specimen | + + | | + + + + + | Narrative | Performed At | + + + | [facility] Diagnostic Imaging Department | [facility] | | [address] [facility] | [facility] | | CHEST, PA AND LATERAL, 02/09/2012 [...] Transcribed Date/Time: | | | 02/09/2012 08:20 Lithographic Press Feeder: <Electronically Signed | | | by Vance Holland MD> 02/09/12 1121 | | + + + + + | Procedure Note | + + | Germain, Rad Conversion - 12/08/2013 5:01 PM [facility] | | Diagnostic Imaging Department [address] [place] [address] | | CHEST, PA AND LATERAL, 02/09/2012 [...] 08:06 | |Transcribed Date/Time: 02/09/2012 08:20 | |Lithographic Press Feeder: | |<Electronically Signed by Vance Holland MD> 02/09/12 1121 | + + + +---------+ + + | Performing | Address | City/State/Zipcode | Phone Number | | Organization | | | | + +---------+ + + | [facility] | | | | | [facility] | | | | + +---------+ + + US Renal Limited (01/28/2012 2:34 PM PDT) + + | Specimen | + + | | + + + + + | Narrative | Performed At | + + + | [facility] Diagnostic Imaging [facility] | [facility] | | [address], [place] | [facility] | | RENAL ULTRASOUND CLINICAL | DIAG [...] Transcribed Date/Time: | | | 02/08/2012 14:21 Lithographic Press Feeder: <Electronically Signed | | | by Jorge Luis Farias MD> 02/08/12 1458 | | + + + + + | Procedure Note | + + | Philip Groves Conversion - 12/08/2013 5:01 PM [facility] | | Diagnostic Imaging Department | | [address] , [facility] | | | | | [...] | Transcribed Date/Time: 02/08/2012 14:21 | | Lithographic Press Feeder: | | <Electronically Signed by Jorge Luis Farias MD> 02/08/12 1458 | + + + +---------+ + + | Performing | Address | City/State/Zipcode | Phone Number | | Organization | | | | + +---------+ + + | [facility] | | | | | [facility] | | | | + +---------+ + + XR Chest AP Portable (01/28/2012 2:34 PM PDT) + + | Specimen | + + | | + + + + + | Narrative | Performed At | + + + | [facility] Diagnostic Imaging Department | [facility] | | [address] [facility] | [facility] | | SINGLE AP CHEST, 02/05/2012 AT [...] | | 08:15 Transcribed Date/Time: 02/05/2012 08:22 Lithographic Press Feeder: | | | <Electronically Signed by Moises Rodas MD> 02/05/12 1044 | | + + + + + | Procedure Note | + + | Germain, Rad Conversion - 12/08/2013 5:01 PM [facility] | | Diagnostic Imaging Department | | [address] [facility] | | | | | | [...] | Transcribed Date/Time: 02/05/2012 08:22 | | Lithographic Press Feeder: | | <Electronically Signed by Moises Rodas MD> 02/05/12 1044 | + + + +---------+ + + | Performing | Address | City/State/Zipcode | Phone Number | | Organization | | | | + +---------+ + + | [facility] | | | | | [facility] | | | | + +---------+ + + XR Chest PA and Lateral (01/28/2012 2:34 PM PDT) + + | Specimen | + + | | + + + + + | Narrative | Performed At | + + + | [facility] | [facility] | | [address] [facility] [place] | [facility] | | PA AND LATERAL CHEST: 02/03/2012 [...] Transcribed Date/Time: 02/03/2012 11:05 | | | Lithographic Press Feeder: <Electronically Signed by Moises Rodas MD> | | | 02/03/12 1543 | | + + + + + | Procedure Note | + + | Germain, Rad Conversion - 12/08/2013 5:01 PM [facility] | | Diagnostic Imaging Department | | [address], [place] | | | | | | [...] | Transcribed Date/Time: 02/03/2012 11:05 | | Lithographic Press Feeder: | | <Electronically Signed by Moises Rodas MD> 02/03/12 1543 | + + + +---------+ + + | Performing | Address | City/State/Zipcode | Phone Number | | Organization | | | | + +---------+ + + | [place] [facility] | | | | | [facility] | | | | + +---------+ + + XR Chest PA and Lateral (01/28/2012 2:34 PM PDT) + + | Specimen | + + | | + + + + + | Narrative | Performed At | + + + | [facility] Diagnostic Imaging Department | [facility] | | [address] [facility] | [facility] | | TWO VIEW CHEST CLINICAL | [...] | | | Transcribed Date/Time: 01/28/2012 17:03 Lithographic Press Feeder: | | | <Electronically Signed by Jorge Luis Farias MD> 01/29/12 0816 | | + + + + + | Procedure Note | + + | Germain, Rad Conversion - 12/08/2013 5:01 PM [facility] | | Diagnostic Imaging Department [address] [facility] | | TWO VIEW CHEST CLINICAL HISTORY: [...] 16:56 | |Transcribed Date/Time: 01/28/2012 17:03 | |Lithographic Press Feeder: | |<Electronically Signed by Jorge Luis Farias MD> 01/29/1216 | + + + +---------+ + + [...]
--- OUTSIDE RECORDS SUMMARY | ~2019-09-11 | XMS | Encounter Summary ---
Demographics + + + | Address | [address] | | | [place] [address] | + + + | Home Phone | | + + + | Preferred Language | Unknown | + + + | Marital Status | | + + + | Shinto Affiliation | Unknown | + + + | Race | Unknown | + + + | Ethnic Group | Unknown | + + + Author + + + | Author | [facility] | | | and Hermannana | + + + | Organization | [facility] | | | and Hermannana [...] [place], [place] | | | | | [address] | | + + + + + | Greta Broncheau | ECON | [place], [place] | | | | | [address] | | + + + + + Care Team Providers + +------+ + | Care Manufacturing Technologist Name | Role | Phone | + +------+ + PCP | Unavailable | + +------+ + Encounter Details +--------+ + + + + | Date | Type | Department | Care Team | Description | +--------+ + + + + | 04/28/ | Hospital | [facility] | [place], | | | 2011 - | Encounter | [facility] | Antonio Infante MD [address] | | | | | [place] [address] | [place] | | | 04/30/ | | [place], [place] | [place] [address] | | | 2011 | | [address] | [phone] | | | | | [phone] | | | +--------+ + + + [...] encounter Discharge Summaries Antonio Renee MD - 04/09/2012 3:34 AM PDTADMISSION DATE: 04/11/2012 DISCHARGE DATE: 04/17/2012 ADMITTING DIAGNOSES 1. Burkitt's lymphoma. 2. Chemotherapy-induced cardiomyopathy. DISCHARGE DIAGNOSES 1. BURKITT LYMPHOMA, STABLE. 2. CHEMOTHERAPY-INDUCED CARDIOMYOPATHY, STABLE. PROCEDURES 1. Intrathecal administration of cytarabine. 2. Infusional chemotherapy with cycle 3B of Rituxan/hyper-CVAD. CONSULTATIONS: None. COMPLICATIONS: None. HOSPITAL COURSE: Frida Christian is a 51-year-old woman from [place], [place] with Burkitt l ymphoma, w ho was admitted to [facility] in [facility] on 012, for cycle #3b of Rituxan/hyper-CVAD chemotherapy. Frida was immediately taken to the radiology suite, where lumbar puncture was performed b y Dr. Hoa cruz, and then I subsequently immediately administered 100 mg of cytarabine intra thecally in preservat al-free saline, and withdrew the needle. She tolerated the procedure without any adverse effects. Ynes ortiz then immediately was taken to room 311, where she began cycle 3B of Rituxan/hyper-CVAD chemotherapy . She received 650 mg of oral Tylenol on day 1, 25 mg of intravenous Benadryl on day 1, 700 mg of int ravenous Rituxan on day 1. She received 16 mg of oral Zofran on day 2. She received 20 mg of oral dexamethasone on day s 2 throug h 5. She received 200 mg/m2 of intravenous methotrexate on day 2, and then immed iately began a 400 mg /m2 infusion of methotrexate over 22 hours. She received 24 mg of oral Zofran on days 3 through 5. She received 50 mg of intravenous le ucovorin o n day 5, and then subsequently continued on leucovorin at 15 mg intravenously ev ayaan 6 hours, days 4 t hrough 6. She received cytarabine at 100 mg/m2 intravenously for 2 doses, by 12 hours on da y 4. She r eceived 6 mg of subcutaneous Neulasta on day 6. Supportive care included intravenous fluids with sodium bicarbonate, as well as oral sodium bicarbona te tablets, and 2 units of filtered, irradiated packed red blood cells. Chemotherapy was tolerated without any adverse effects. DISCHARGE MEDICATIONS 1. Senna 1 to 2 tablets orally as needed for constipation. 2. Compazine 5-10 mg every 6 ho urs as needed for nausea. 3. MiraLAX 17 g orally daily as needed for constitutional. 4. Ox yContin 20 mg orally twice daily. 5. Omeprazole 20 mg orally daily. 6. Ativan 1 mg every 4 hours as needed for nausea, anxiety or restlessness. 7. Lisinopril 10 mg orally daily. 8. Vitamin D2 50,000 units orally once a week. 9. Lomotil 1 tablet after each loose stool as needed for diarrhea. 10. Coreg 3.125 mg oral ly twice daily. 11. Acyclovir 400 mg orally once daily. FOLLOWUP: The followup plan is to see Dr. Renee on 04/19/2012, for clinical and labora tory followup, and additional transfusion of blood products as needed for suppor tive care during myel osuppression following cycle 3B of Rituxan/hyper-CVAD chemotherapy. S he is tentatively scheduled for cycle #4A on 05/02/2012. DICTATED BY: Antonio Renee MD Oncology JOB #: [id number] EXT JOB #:[id number] <Electronicall y Signed by Antonio Renee MD> 04/19/12 1425 documented in this encounter Medications at Time [...] | 03/25/20 | | | (VITAMIN D3) 93748 | mouth Once a week. | | [...] encounter Progress Notes Antonio Renee MD - 04/09/2012 3:34 AM PDTPROGRESS NOTE 04/28/2012 IDENTIFYING STATEMENT: Frida Christian is a 51-year-old woman from [place], [place], with Burkitt's lymphoma. ACTIVE DIAGNOSES: 1. Presentation in August 2001, with intractable searing abdominal pain. Symptoms progre ssed and on October 05, 2011, she underwent advanced imaging that demonstrated diffuse malignant lymphadenopathy throughout the retroperitoneum. 2. Laparoscopic lymph node biopsy on November 10, 2011, at [facility], demonstrated a high grade B cell lymphoma, consistent with Burkitt's lymphoma, positive for BCL6, CD10, CD19, CD20, CD2 2, and kappa light chains. Ignacio-Palmer virus was positive by in situ hybridization, KI 67 f raction was greater than 90%. 3. Initiation of Rituxan/Hyper-CVAD chemotherapy at [facility] on November 15, 2011. CHIEF COMPLAINT: Frida returned to clinic on April 28, 2012, cycle #3B, day #20 of Ritux an/Hyper-CVAD chemotherapy. CURRENT REVIEW OF SYSTEMS: Constitutional: Denies high fever, shaking chills, fatigue, anorexia, nausea, vomiting, o r weight loss. Ear, Nose, Mouth, Throat: Denies odynophagia, dysphagia, or tinnitus. Cardiovascular: De nies shortness of breath, dyspnea on exertion, chest pain, palpitations, or orthopnea. Respiratory: Denies cough, hemoptysis, or sputum production. Gastrointestinal: Bowel louis carmelina has been much more predictable with the use of a fiber supplement.Genitourinary: Denie s hematuria or dysuria. Musculoskeletal: Denies joint pain and tenderness. Neurologic: Denies headache, visual changes, or numbness/tingling of the extremities. End ocrine: Denies peripheral edema or heat/cold intolerance. Hematologic: Denies spontaneous bruising or bleeding. PAST MEDICAL HISTORY, PAST SURGICAL HISTORY, PSYCHOSOCIAL HISTORY, FAMILY HISTORY, AND HAB ITS: See the full dictated note on December 07, 2011, reviewed and unchanged. CURRENT MEDICATIONS: Acyclovir 400 mg orally once daily Norvasc 10 mg orally once daily Lomotil as needed for diarrhea Marinol 5 mg orally three times daily Vitamin D 50,000 units orally every week Ativan 1 mg as needed for nausea Prilosec 20 mg orally daily OxyContin 20 mg orally twice daily MiraLAX 17 g orally as needed Compazine 5-10 mg as needed Senna 1-2 tablets as needed ALLERGIES: No known drug allergies. 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 PHYSICAL EXAMINATION: Blood pressure is 110/74, pulse 76, temperature is 36.7 degrees Cora sius. Saturation of oxygen is 95% on room air. Weight is 84.7 kg which is up 2.6 kg. EYES: Conjunctivae clear. Sclerae anicteric. ENMT: Oropharynx free of lesions, mucous membranes moist. CARDIOVASCULAR: Regular rate and rhythm. Normal S1 and S2 without murmur, gallop, or rub . LUNGS: Good air movement bilaterally. No rhonchi, wheeze, or rales. CHEST: Left anterior chest Port-A-Cath was accessed with a Silver needle and a brisk blood return was documented. SKIN: No petechiae, ecchymoses, or rash. EXTREMITIES: There is no evidence for any recurrence of her paronychia of the left great t oe. NEUROLOGIC: Alert and oriented times three. Face symmetric. Voice articulate. Station and gait within normal limits. LABORATORY DATA: Hemoglobin is 9, hematocrit 24.8%, platelet count is 53,000, white count is 6400. Comprehensive metabolic panel is notable for an alkaline phosphatase of 135, upp er limits of normal is 110, likely related to a hematopoietic recovery, but otherwise withi n normal limits. ASSESSMENT: Hematopoietic recovery following cycle #3B of Rituxan/Hyper-CVAD chemotherapy. PLAN: Frida will return to clinic on May 09, 2012 for her cycle 4A of chemotherapy which we are giving on an every 28-day schedule for better tolerance. She is also scheduled for her next intrathecal injection with methotrexate at that time. cc: CHOCO Luis, [facility] <Electronically Signed by Antonio Renee MD> 05/06/12 0557 Antonio Renee MD - 04/09/2012 3:34 AM PDTPROGRESS NOTE 04/26/2012 IDENTIFYING STATEMENT: Frida Christian is a 51-year-old woman from [place], [place], with Burkitt's lymphoma. ACTIVE DIAGNOSES: 1. Presentation in August 2001, with intractable searing abdominal pain. Symptoms progre ssed and on October 05, 2011, she underwent advanced imaging that demonstrated diffuse malignant lymphadenopathy throughout the retroperitoneum. 2. Laparoscopic lymph node biopsy on November 10, 2011, at [facility], demonstrated a high grade B cell lymphoma, consistent with Burkitt's lymphoma, positive for BCL6, CD10, CD19, CD20, CD2 2, and kappa light chains. Ignacio-Palmer virus was positive by in situ hybridization, KI 67 f raction was greater than 90%. 3. Initiation of Rituxan/Hyper-CVAD chemotherapy at [facility] on November 15, 2011. CHIEF COMPLAINT: Frida returned to clinic for followup, cycle #3B, day #16 or Rituxan/H yper-CVAD chemotherapy. REVIEW OF SYSTEMS: Constitutional: Positive for fatigue. Denies high fever, shaking chills, anorexia, nausea , vomiting, weight loss, or night sweats. Ear, Nose, Mouth, Throat: Denies odynophagia, dysphagia, or tinnitus. Cardiovascular: De nies shortness of breath, dyspnea on exertion, chest pain, palpitations, or orthopnea. Respiratory: Denies cough, hemoptysis, or sputum production. Gastrointestinal: Positive f or frequent diarrhea. No bright red blood per rectum or melena. Genitourinary: Denies hematuria or dysuria. Musculoskeletal: She has chronic bone pain related to her Burkitt's lymphoma. Neurologic: Denies headache, visual changes, or numbness/tingling of the extremities. Endocrine: Ant es peripheral edema or heat/cold intolerance. Hematologic: She has noted new onset of petec hiae. PAST MEDICAL HISTORY, PAST SURGICAL HISTORY, PSYCHOSOCIAL HISTORY, FAMILY HISTORY, AND HAB ITS: See the full dictated note December 07, 2011 reviewed and unchanged. CURRENT MEDICATIONS: Acyclovir 400 mg orally once daily Norvasc 10 mg orally once daily Lomotil as needed for diarrhea Marinol 5 mg orally three times daily Vitamin D 50,000 units orally every week Ativan 1 mg as needed for nausea Prilosec 20 mg orally daily OxyContin 20 mg orally twice daily MiraLAX 17 g orally as needed Compazine 5-10 mg as needed Senna 1-2 tablets as needed ALLERGIES: No known drug allergies. 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 PHYSICAL EXAMINATION: Blood pressure is 111/68, pulse is 73, temperature 36.5 degrees Cora sius. Saturation of oxygen is 99% on room air. Weight is 82.6 kg, up 0.5 kg. EYES: Conjunctivae clear. Sclerae anicteric. ENMT: Oropharynx free of lesions, mucous membranes moist. CARDIOVASCULAR: Regular rate and rhythm. Normal S1 and S2 without murmur, gallop, or rub . LUNGS: Good air movement bilaterally. No rhonchi, wheeze, or rales. CHEST: Left anterior chest Port-A-Cath was accessed with a Silver needle and a brisk blood return was documented. SKIN: Notable for diffuse petechiae covering the lower extremities. EXTREMITIES: No cyanosis, clubbing, or edema. NEUROLOGIC: Alert and oriented times three. Face symmetric. Voice articulate. Station and gait within normal limits. LABORATORY DATA: Hemoglobin is 7.4, hematocrit 20.6%, platelet count 9000, white count 66 00. Comprehensive metabolic panel is entirely within normal limits. ASSESSMENT: Hypoplastic anemia and critical thrombocytopenia following cycle 3B of Rituxa n Hyper-CVAD chemotherapy. PLAN: Frida will receive transfusion of platelets today. She will return to the clinic t omorrow for a transfusion of packed red blood cells. She will return in two days for anothe r complete blood count and potentially another platelet transfusion on April 28. She will th en have another followup on May 03, and we will anticipate cycle #4A of Rituxan/Hyper-CVAD on May 09, 2012 with intrathecal prophylaxis. PROCEDURE NOTE: She received 650 of oral Tylenol, 25 mg of oral Benadryl and then one sing le donor CMV-negative filtered irradiated apheresis unit of platelets without adverse effec ts. <Electronically Signed by Antonio Renee MD> 05/03/12 1604 Antonio Renee MD - 04/09/2012 3:34 AM PDTPROGRESS NOTE 04/19/2012 IDENTIFYING STATEMENT: Frida Christian is a 51-year-old woman from [place], [place], with Burkitt's lymphoma. ACTIVE DIAGNOSES: 1. Presentation in August 2001, with intractable searing abdominal pain. Symptoms progre ssed and on October 05, 2011, she underwent advanced imaging that demonstrated diffuse malignant lymphadenopathy throughout the retroperitoneum. 2. Laparoscopic lymph node biopsy on November 10, 2011, at [facility], demonstrated a high grade B cell lymphoma, consistent with Burkitt's lymphoma, positive for BCL6, CD10, CD19, CD20, CD2 2, and kappa light chains. Ignacio-Palmer virus was positive by in situ hybridization, KI 67 f raction was greater than 90%. 3. Initiation of Rituxan/Hyper-CVAD chemotherapy at [facility] on November 15, 2011. CHIEF COMPLAINT: Frida returned to clinic for followup, cycle #3B, day #9 of Rituxan/Hy per-CVAD chemotherapy. CURRENT REVIEW OF SYSTEMS: Constitutional: Positive for fatigue. Denies high fever, shaking chills, anorexia, nausea , vomiting, weight loss, or night sweats. Ear, Nose, Mouth, Throat: Denies odynophagia, dysphagia, or tinnitus. Cardiovascular: De nies shortness of breath, dyspnea on exertion, chest pain, palpitations, or orthopnea. Respiratory: Denies cough, hemoptysis, or sputum production. Gastrointestinal: Positive for frequent diarrhea. No melena or bright red blood per rectum. Genitourinary: Denies hematuria or dysuria. Musculoskeletal: Positive for chronic bone pain related to her Burkitt's lymphoma. Neurolo gic: Denies headache, visual changes, or numbness/tingling of the extremities. Endocrine: Denies peripheral edema or heat/cold intolerance. Hematologic: Denies spontaneous bruisin g or bleeding. PAST MEDICAL HISTORY, PAST SURGICAL HISTORY, PSYCHOSOCIAL HISTORY, FAMILY HISTORY, AND HAB ITS: See the full dictated notes December 07, 2011, reviewed and unchanged. CURRENT MEDICATIONS: Acyclovir 400 [...] to metal. PHYSICAL EXAMINATION: Blood pressure is 107/64, pulse is 80, temperature 36.3 degrees Cora sius. Saturation of oxygen is 98% on room air. Weight is 82.1 kg. EYES: Conjunctivae clear. Sclerae anicteric. ENMT: Oropharynx free of lesions, mucous membranes moist. CARDIOVASCULAR: Regular rate and rhythm. Normal S1 and S2 without murmur, gallop, or rub . LUNGS: Good air movement bilaterally. No rhonchi, wheeze, or rales. CHEST: Her left anterior chest Port-A-Cath was accessed with a Silver needle and a brisk bl ood return was documented. SKIN: No petechiae, ecchymoses, or rash. EXTREMITIES: No cyanosis, clubbing, or edema. NEUROLOGIC: Alert and oriented times three. Face symmetric. Voice articulate. Station and gait within normal limits. LABORATORY DATA: Hemoglobin is 8.9, hematocrit 25.2%, platelet count is 52,000, white coun t 5500. Comprehensive metabolic panel is entirely within normal limits. ASSESSMENT: 1. Burkitt's lymphoma cycle #3B, day #9 of Rituxan/Hyper-CVAD. 2. Bone pain d ue to Burkitt's lymphoma. PLAN: No need for transfusion support today. Refilled OxyContin 20 mg #60, one tablet oral ly every 12 hours as well as acyclovir 400 mg #60, one tablet every 12 hours. I also sugges zach that Frida add some fiber to her daily regimen to make stooling more predictable. She will return to clinic in 1 week for clinical and laboratory followup and transfusion of bl ood products if needed and if her blood counts permit, she will be admitted for cycle #4A o f her Rituxan/Hyper-CVAD chemotherapy program on May 02, 2012. cc: CHOCO Luis, [facility] <Electronically Signed by Antonio Renee MD> 04/25/12 1602 documented in this encounter Plan of Treatment Not on filedocumented as of this encounter Procedures + +--------+ + + + | Procedure Name | Priori | Date/Time | Associated Diagnosis | Comments | | | ty | | | | + +--------+ + + + | CBC W/AUTO | Routin | 04/28/2012 | | Results for this | | DIFFERENTIAL | e | 10:23 AM | | procedure are in the | | | | PDT | | results section. | + +--------+ + + + | LACTATE | Routin | 04/28/2012 | | Results for this | | DEHYDROGENASE | e | 10:23 AM | | procedure are in the | | | | PDT | | results section. | + +--------+ + + + | COMPREHENSIVE | Routin | 04/28/2012 | | Results for this | | METABOLIC PANEL | e | 10:23 AM | | procedure are in the | | | | PDT | | results section. | + +--------+ + + + | CBC W/AUTO | Routin | 04/26/2012 | | Results for this | | DIFFERENTIAL | e | 10:24 AM | | procedure are in the | | | | PDT | | results section. | + +--------+ + + + | ABO RH | Routin | 04/26/2012 | | Results for this | | | e | 10:24 AM | | procedure are in the | | | | PDT | | results section. | + +--------+ + + + | ABO RH | Routin | 04/26/2012 | | | | | e | 10:24 AM | | | | | | PDT | | | + +--------+ + + + | ANTIBODY SCREEN | Routin | 04/26/2012 | | Results for this | | | e | 10:24 AM | | procedure are in the | | | | PDT | | results section. | + +--------+ + + + | LACTATE | Routin | 04/26/2012 | | Results for this | | DEHYDROGENASE | e | 10:24 AM | | procedure are in the | | | | PDT | | results section. | + +--------+ + + + | COMPREHENSIVE | Routin | 04/26/2012 | | Results for this | | METABOLIC PANEL | e | 10:24 AM | | procedure are in the | | | | PDT | | results section. | + +--------+ + + + | PLATELET PHERESIS | Routin | 04/26/2012 | | Results for this | | | e | 8:02 AM | | procedure are in the | | | | PDT | | results section. | + +--------+ + + + | CROSSMATCH (IN ML) | Routin | 04/26/2012 | | Results for this | | | e | 8:02 AM | | procedure are in the | | | | PDT | | results section. | + +--------+ + + + | CROSSMATCH (IN ML) | Routin | 04/26/2012 | | Results for this | | | e | 8:02 AM | | procedure are in the | | | | PDT | | results section. | + +--------+ + + + | CBC WITH | Routin | 04/19/2012 | | Results for this | | DIFFERENTIAL | e | 9:41 AM | | procedure are in the | | | | PDT | | results section. | + +--------+ + + + | LACTATE | Routin | 04/19/2012 | | Results for this | | DEHYDROGENASE | e | 9:41 AM | | procedure are in the | | | | PDT | | results section. | + +--------+ + + + | COMPREHENSIVE | Routin | 04/19/2012 | | Results for this | | METABOLIC PANEL | e | 9:41 AM | | procedure are in the | | | | PDT | | results section. | + +--------+ + + + | CBC WITH | Routin | 04/11/2012 | | Results for this | | DIFFERENTIAL | e | 8:35 AM | | procedure are in the | | | | PDT | | results section. | + +--------+ + + + | LACTATE | Routin | 04/11/2012 | | Results for this | | DEHYDROGENASE | e | 8:35 AM | | procedure are in the | | | | PDT | | results section. | + +--------+ + + + | COMPREHENSIVE | Routin | 04/11/2012 | | Results for this | | METABOLIC PANEL | e | 8:35 AM | | procedure are in the | | | | PDT | | results section. | + +--------+ + + + documented in this encounter Results Comprehensive Metabolic Panel (04/28/2012 10:23 AM PDT) + + + + + [...] + + + + | Alkaline | 135 (H) | 40 - 110 IU/L | [...] + + + + | ALT | 21 | 6 - 45 IU/L | [facility] [...] + + + + | BUN/Creatin | 12.3 | 12 - 20 | [facility] | [...] + + + + | Cl | 111 (H) | 98 - 109 mEq/l | [...] | 8.7 | 6.0 - 17.0 | [facility] | [...] [address] | [place] | [phone] | | [facility] | | [address] | | | - LABORATORY | | | | + + + + + | [facility] | [address] | [place] | | | [facility] | | [address] | | | - LABORATORY | | | | + + + + + Lactate Dehydrogenase (04/28/2012 10:23 AM PDT) + +-------+ + + + | Component | Value | Ref Range | Performed | Pathologist | | | | | At | Signature | + +-------+ + + + | LDH TOTAL | 159 | 91 - 180 IU/L | [facility] | [address] | [place], [place] | [phone] | | [facility] | | [address] | | | - LABORATORY | | | | + + + + + | [facility] | [address] | [place] | | | [facility] | | [address] | | | - LABORATORY | | | | + + + + + CBC w/ Auto Differential (04/28/2012 10:23 AM PDT) + + + + + + | Component | Value | Ref Range | Performed | Pathologist | | | | | At | Signature | + + + + + + | WBC | 6.4 | 4.0 - 11.0 K/uL | [facility] | | | | | | [facility] | | | | | | [facility] | | | | | [facility] - | | | | | | LABORATORY | | + + + + + + | RBC | 2.67 (L) | 3.70 - 5.20 | [facility] | | | | | M/uL | [facility] | | | | | | [facility]ICAL | | | | | | CENTER - | | | | | | LABORATORY | | + + + + + + | Hemoglobin | 9.0 (L) | 11.5 - 16.0 | [facility] | | | | | gm/dL | [facility] | | | | | | MEDICAL | | | | | | CENTER - | | | | | | LABORATORY | | + + + + + + | Hematocrit | 24.8 (L) | 34.0 - 47.0 % | [facility] | | | | | | [facility] | | | | | | MEDICAL | | | | | | CENTER - | | | | | | LABORATORY | | + + + + + + | MCV | 93.0 | 83.0 - 101.0 fL | [facility] | | | | | | [facility] | | | | | | MEDICAL | | | | | | CENTER - | | | | | | LABORATORY | | + + + + + + | MCH | 33.7 | 28.0 - 35.0 pg | [facility] [...] + + + + | Platelet | 53 (L) | 140 - 440 K/uL | [...] + + + | % Segmented | 59 | 50 - 70 % | [facility] | | | | | | [facility] | | | Neutrophils | | | MEDICAL | | | | | | CENTER - | | | | | | LABORATORY | | + + + + + + | % Bands | 13 (H) | 0 - 5 % | [facility] | | | | [...] + + + | % Monocytes | 10 (H) | 1 - 6 % | [facility] | | | | | | [facility] | | | | | | MEDICAL | | | | | | CENTER - | | | | | | LABORATORY | | + + + + + + | % | 1 | 1 - 5 % | [facility] | | | Eosinophils | | | [facility] | | | | | | MEDICAL | | | | | | CENTER - | | | | | | LABORATORY | | + + + + + + | % Variant | 3 | 0 - 5 % | [facility] | | | Lymphocytes | | | [facility] | | | | | | MEDICAL | | | | | | CENTER - | | | | | | LABORATORY | | + + + + + + | % | 1 | 0 % | [facility] | | | Metamyelocy | | | [facility] | | | anthony | | | MEDICAL | | | | | | CENTER - | | | | | | LABORATORY | | + + + + + + | Smudge | 1 | /100WBC | [facility] | | | Cells | | | [facility] | | | | | | MEDICAL | | | | | | CENTER - | | | | | | LABORATORY | | + + + + + + | nRBC, | 1 (H) | 0 /100WBC | [facility] | | | manual | | | [facility] | | | | | | MEDICAL | | | | | | CENTER - | | | | | | LABORATORY | | + + + + + + | RBC | 2+ | | [facility] | | | Microcytes | | | [facility] | | | | | | MEDICAL | | | | | | CENTER - | | | | | | LABORATORY | | + + + + + + | Tear Drop | 1+ | | [facility] | | | Cells | | | [facility] | | | | | | MEDICAL | | | | | | CENTER - | | | | | | LABORATORY | | + + + + + + | Toxic | 1+ | | [facility] | | | Granulation | | | [facility] | | | | | | MEDICAL | | | | | | CENTER - | | | | | | LABORATORY | | + + + + + + | Dohle | 1+ | | [facility] | | | Bodies | | | [facility] | | | | | | MEDICAL | | | | | | CENTER - | | | | | | LABORATORY | | + + + + + + | Platelet | NORMAL | | [facility] | | | Estimate [...] + | [facility] | [address] | [place] | [phone] | | [facility] | | [address] | | | - LABORATORY | | | | + + + + + | [facility] | [address] | [place], [place] | | | [facility] | | [address] | | | - LABORATORY | | | | + + + + + ABO Rh (04/26/2012 10:24 AM PDT) + +-------+ + + + [...] + | [facility] | [address] | [place] | [phone] | | [facility] | | [address] | | | - LABORATORY | | | | + + + + + | [facility] | [address] | [place] | | | [facility] | | [address] | | | - LABORATORY | | | | + + + + + Antibody Screen (04/26/2012 10:24 AM PDT) + + + + + [...] | + + + + + | [facility] | [address] | [place], [place] | [phone] | | [facility] | | [address] | | | - LABORATORY | | | | + + + + + | [facility] | [address] | [place], [place] | | | [facility] | | [address] | | | - LABORATORY | | | | + + + + + ABO Rh (04/26/2012 10:24 AM PDT) + + | Specimen | + + | | + + + + + + + | Performing | Address | City/State/Zipcode | Phone Number | | Organization | | | | + + + + + | [facility] | [address] | [place] | [phone] | | [facility] | | [address] | | | - LABORATORY | | | | + + + + + Comprehensive Metabolic Panel (04/26/2012 10:24 AM PDT) + + + + + + | Component | Value | Ref Range | Performed | Pathologist | | | | | At | Signature | + + + + + + | Glucose | 102 | 70 - 109 mg/dL | [facility] [...] + + + + | Alkaline | 151 (H) | 40 - 110 IU/L | [...] + | [facility] | [address] | [place], [place] | [phone] | | [facility] | | [address] | | | - LABORATORY | | | | + + + + + | [facility] | [address] | [place], [place] | | | [facility] | | [address] | | | - LABORATORY | | | | + + + + + Lactate Dehydrogenase (04/26/2012 10:24 AM PDT) + +-------+ + + + | Component | Value | Ref Range | Performed | Pathologist | | | | | At | Signature | + +-------+ + + + | LDH TOTAL | 157 | 91 - 180 IU/L | [facility] [...] + | [facility] | [address] | [place] | [phone] | | [facility] | | [address] | | | - LABORATORY | | | | + + + + + | [facility] | [address] | [place], [place] | | | [facility] | | [address] | | | - LABORATORY | | | | + + + + + CBC w/ Auto Differential (04/26/2012 10:24 AM PDT) + + + + + + | Component | Value | Ref Range | Performed | Pathologist | | | | | At | Signature | + + + + + + | WBC | 6.6 | 4.0 - 11.0 K/uL | [facility] | | | | | | [facility] | | | | | | MEDICAL | | | | | | CENTER - | | | | | | LABORATORY | | + + + + + + | RBC | 2.20 (L) | 3.70 - 5.20 | [facility] | | | | | M/uL | [facility] | | | | | | MEDICAL | | | | | | CENTER - | | | | | | LABORATORY | | + + + + + + | Hemoglobin | 7.4 (LL) | 11.5 - 16.0 | [facility] | | | | | gm/dL | [facility] | | | | | | MEDICAL | | | | | | CENTER - | | | | | | LABORATORY | | + + + + + + | Hematocrit | 20.6 (L) | 34.0 - 47.0 % | [facility] | | | | | | [facility] | | | | | | MEDICAL | | | | | | CENTER - | | | | | | LABORATORY | | + + + + + + | MCV | 93.6 | 83.0 - 101.0 fL | [facility] [...] + + + | Platelet | 9 (LL)Comment: | 140 - 440 K/uL | [...] | | | | | CALLED TO KATEY | | | | | | TRATHAWAY 04/26/12 @1051 | | | | | | by WESSMA @ * READ | | | | | | BACK MUST BE OBTAINED * | | | [...] + + + | % Segmented | 51 | 50 - 70 % | [facility] | | | | | | [facility] | | | Neutrophils | | | MEDICAL | | | | | | CENTER - | | | | | | LABORATORY | | + + + + + + | % Bands | 26 (H) | 0 - 5 % | [facility] | | | | | | [facility] | | | | | | MEDICAL | | | | | | CENTER - | | | | | | LABORATORY | | + + + + + + | % | 10 (L) | 20 - 40 % | [facility] | | | Lymphocytes | | | [facility] | | | | | | MEDICAL | | | | | | CENTER - | | | | | | LABORATORY | | + + + + + + | % Monocytes | 4 | 1 - 6 % | [facility] | | | | | | [facility] | | | | | | MEDICAL | | | | | | CENTER - | | | | | | LABORATORY | | + + + + + + | % | 1 | 1 - 5 % | [facility] | | | Eosinophils | | | [facility] | | | | | | MEDICAL | | | | | | CENTER - | | | | | | LABORATORY | | + + + + + + | % Variant | 2 | 0 - 5 % | [facility] | | | Lymphocytes | | | [facility] | | | | | | MEDICAL | | | | | | CENTER - | | | | | | LABORATORY | | + + + + + + | % | 1 | 0 % | [facility] | | | Metamyelocy | | | [facility] | | | anthony | | | MEDICAL | | | | | | CENTER - | | | | | | LABORATORY | | + + + + + + | % | 4 | 0 % | [facility] | | | Myelocytes | | | [facility] | | | | | | MEDICAL | | | | | | CENTER - | | | | | | LABORATORY | | + + + + + + | % | 1 | 0 % | [facility] | | | Promyelocyt | | | [facility] | | | es | | | MEDICAL | | | | | | CENTER - | | | | | | LABORATORY | | + + + + + + | Smudge | 2 | /100WBC | [facility] | | | Cells | | | [facility] | | | | | | MEDICAL | | | | | | CENTER - | | | | | | LABORATORY | | + + + + + + | RBC | 2+ | | [facility] | | | Microcytes | | | [facility] | | | | | | MEDICAL | | | | | | CENTER - | | | | | | LABORATORY | | + + + + + + | Toxic | 1+ | | [facility] | | | Granulation | | | [facility] | | | | | | MEDICAL | | | | | | CENTER - | | | | | | LABORATORY | | + + + + + + | Dohle | 1+ | | [facility] | | | Bodies | | | [facility] | | | | | | MEDICAL | | | | | | CENTER - | | | | | | LABORATORY | | + + + + + + | Platelet | DECREASED | | [facility] | | | Estimate [...] + | [facility] | [address] | [place] | [phone] | | [facility] | | [address] | | | - LABORATORY | | | | + + + + + | [facility] | [address] | [place] | | | [facility] | | [address] | | | - LABORATORY | | | | + + + + + Product: LEXII (04/26/2012 8:02 AM PDT) + + + + + [...] + + + | UNIT # | [id number] | | [facility] | | | | [...] [address] | [place] | [phone] | | [facility] | | [address] | | | - LABORATORY | | | | + + + + + | [facility] | | | | | [facility] | | | | | - LABORATORY | | | | + + + + + Product: PRBC (04/26/2012 8:02 AM PDT) + + + + + [...] + + + | UNIT # | [id number] | | [facility] | | | | [...] ST. | [address] | [place], [place] | [phone] | | [facility] | | [address] | | | - LABORATORY | | | | + + + + + | [facility] | | | | | [facility] | | | | | - LABORATORY | | | | + + + + + Product: Platelet Pheresis (04/26/2012 8:02 AM PDT) + + + + + [...] + + + | UNIT # | [id number] | | [facility] | | | | [...] | Unit Status | TRANSFUSED | | [facility] | | | | | [...] [address] | [place] | [phone] | | [facility] | | [address] | | | - LABORATORY | | | | + + + + + | [facility] | | | | | [facility] | | | | | - LABORATORY | | | | + + + + + Comprehensive Metabolic Panel (04/19/2012 9:41 AM PDT) + + + + + + | Component | Value | Ref Range | Performed | Pathologist | | | | | At | Signature | + + + + + + | Glucose | 105 | 70 - 109 mg/dL | [facility] [...] + + + + | AST | 12 (A) | 10 - 42 IU/L | [facility] | | | | | | [facility] | | | | | | MEDICAL | | | | | | CENTER - | | | | | | LABORATORY | | + + + + + + | ALT | 31 | 6 - 45 IU/L | [facility] [...] + + + + | Total | 6.2 (A) | 6.0 - 7.8 gm/dL | [facility] [...] | 0.65 | 0.60 - 1.30 | [facility] | | | | | mg/dL | [...] + + + + | BUN/Creatin | 27.7 (H) | 12 - 20 | [facility] [...] + | [facility] | [address] | [place] | [phone] | | [facility] | | [address] | | | - LABORATORY | | | | + + + + + | [facility] | [address] | [place] | | | [facility] | | [address] | | | - LABORATORY | | | | + + + + + Lactate Dehydrogenase (04/19/2012 9:41 AM PDT) + +-------+ + + + | Component | Value | Ref Range | Performed | Pathologist | | | | | At | Signature | + +-------+ + + + | LDH TOTAL | 134 | 91 - 180 IU/L | [facility] [...] + + | Performing | Address | City/State/[facility] | Phone Number | | Organization | | | | + + + + + | [facility] | [address] | [place] | [phone] | | [facility] | | [address] | | | - LABORATORY | | | | + + + + + | [facility] | [address] | [place] | | | [facility] | | [address] | | | - LABORATORY | | | | + + + + + CBC with Differential (04/19/2012 9:41 AM PDT) + + + + + + | Component | Value | Ref Range | Performed | Pathologist | | | | | At | Signature | + + + + + + | WBC | 5.5 (A) | 4.0 - 11.0 K/uL | [facility] | | | | | | [facility] | | | | | | MEDICAL | | | | | | CENTER - | | | | | | LABORATORY | | + + + + + + | RBC | 2.64 (L) | 3.70 - 5.20 | [facility] | | | | | M/uL | [facility] | | | | | [...] + + + + | MCV | 95.4 | 83.0 - 101.0 fL | [facility] | | | | | | [facility] | | | | | | MEDICAL | | | | | | CENTER - | | | | | | LABORATORY | | + + + + + + | MCH | 33.7 | 28.0 - 35.0 pg | [facility] [...] + + + + | Platelet | 52 (L) | 140 - 440 K/uL | [facility] | | | Count | | | [facility] | | | | | | MEDICAL | | | | | | CENTER - | | | | | | LABORATORY | | + + + + + + | % | 87.0 (H) | 45 - 75 % | [facility] | | | Neutrophils | | | [facility] | | | | | | MEDICAL | | | | | | CENTER - | | | | | | LABORATORY | | + + + + + + | % | 9.1 (L) | 20 - 45 % | [facility] | | | Lymphocytes | | | [facility] | | | | | | MEDICAL | | | | | | CENTER - | | | | | | LABORATORY | | + + + + + + | % Monocytes | 0.5 (L) | 4 - 12 % | [facility] | | | | | | [facility] | | | | | | MEDICAL | | | | | | CENTER - | | | | | | LABORATORY | | + + + + + + | % | 3.3 | 0 - 5 % | [facility] [...] [address] | [place] | [phone] | | [facility] | | [address] | | | - LABORATORY | | | | + + + + + | [facility] | [address] | [place] | | | [facility] | | [address] | | | - LABORATORY | | | | + + + + + Comprehensive Metabolic Panel (04/11/2012 8:35 AM PDT) + + + + + + | Component | Value | Ref Range | Performed | Pathologist | | | | | At | Signature | + + + + + + | Glucose | 104 | 70 - 109 mg/dL | [facility] [...] 17 | 7 - 18 mg/dL | [facility] | | | | | | [facility] | | | | | | MEDICAL | | | | | | CENTER - | | | | | | LABORATORY | | + + + + + + | Creatinine | 0.79 | 0.60 - 1.30 | [facility] | | | | | mg/dL | [facility] | | | | | | MEDICAL | | | | | | CENTER - | | | | | | LABORATORY | | + + + + + + | Estimated | >60Comment: For | >60 mL/min/A | [facility] | | | GFR | -Americans, | [...] + + + + | BUN/Creatin | 21.5 (H) | 12 - 20 | [facility] [...] + + + | Anion Gap | 9.9 | 6.0 - 17.0 | [facility] | [...] + | [facility] | [address] | [place] | [phone] | | [facility] | | [address] | | | - LABORATORY | | | | + + + + + | [facility] | [address] | [place], [place] | | | [facility] | | [address] | | | - LABORATORY | | | | + + + + + Lactate Dehydrogenase (04/11/2012 8:35 AM PDT) + +-------+ + + + | Component | Value | Ref Range | Performed | Pathologist | | | | | At | Signature | + +-------+ + + + | LDH TOTAL | 118 | 91 - 180 IU/L | [facility] [...] + | [facility] | [address] | [place] | [phone] | | [facility] | | [address] | | | - LABORATORY | | | | + + + + + | [facility] | [address] | [place] | | | [facility] | | [address] | | | - LABORATORY | | | | + + + + + CBC with Differential (04/11/2012 8:35 AM PDT) + + + + + + | Component | Value | Ref Range | Performed | Pathologist | | | | | At | Signature | + + + + + + | WBC | 5.3 | 4.0 - 11.0 K/uL | [facility] | | | | | | [facility] | | | | | | MEDICAL | | | | | | CENTER - | | | | | | LABORATORY | | + + + + + + | RBC | 2.54 (L) | 3.70 - 5.20 | [facility] [...] + + + + | Hematocrit | 24.4 (L) | 34.0 - 47.0 % | [facility] | | | | | | [facility] | | | | | | MEDICAL | | | | | | CENTER - | | | | | | LABORATORY | | + + + + + + | MCV | 95.9 | 83.0 - 101.0 fL | [facility] | | | | | | [facility] | | | | | | MEDICAL | | | | | | CENTER - | | | | | | LABORATORY | | + + + + + + | MCH | 33.8 | 28.0 - 35.0 pg | [facility] [...] + + + + | Platelet | 165 | 140 - 440 K/uL | [facility] | | | Count | | | [facility] | | | | | | MEDICAL | | | | | | CENTER - | | | | | | LABORATORY | | + + + + + + | % | 56.7 | 45 - 75 % | [facility] | | | Neutrophils | | | [facility] | | | | | | MEDICAL | | | | | | CENTER - | | | | | | LABORATORY | | + + + + + + | % | 22.1 | 20 - 45 % | [facility] | | | Lymphocytes | | | [facility] | | | | | | MEDICAL | | | | | | CENTER - | | | | | | LABORATORY | | + + + + + + | % Monocytes | 14.0 (H) | 4 - 12 % | [facility] | | | | | | [facility] | | | | | | MEDICAL | | | | | | CENTER - | | | | | | LABORATORY | | + + + + + + | % | 6.8 (H) | 0 - 5 % | [...] + + + + | Absolute | 3.0 | 1.5 - 6.6 K/uL | [facility] [...] 0.0 | 0.0 - 0.1 K/uL | [facility] | | | Basophils | | | [...] [address] | [place] | [phone] | | [facility] | | [address] | | | - LABORATORY | | | | + + + + + | [facility] | [address] | [place] | | | [facility] | | [address] | | | - LABORATORY | | | | + + + + + documented in this encounter Visit Diagnoses Not on filedocumented in this encounter"
--- OUTSIDE RECORDS SUMMARY | ~2019-09-11 | XMS | Encounter Summary ---
Demographics + + + | Address | [address] | | | [place] [address] | + + + | Home Phone [...] Author | [facility] | | | and Hermannana | + + + | Organization | [facility] | | | and [...] [place], [place] | | | | | [address] | | + + + + + | Greta Broncheau | ECON | [place], [place] | | | | | [address] | | + + + + + Care Team Providers + +------+ + | Care Production Or Plant Engineer Name | Role | Phone | [...] | | cardiomyopat | [address] [place] | [address] | | | | | hies | [place] | [place], | | | | | Procedures | [address] | [place] [address] | | | | | [place] OFFICE | Phone: | Phone: | | | | | OUTPATIENT | [phone] | [phone] | | | | | VISIT 25 | Fax: | Fax: | | | | | MINUTES | [phone] | [phone] | +--------+--------+ + + + + Encounter Details +--------+---------+ + + + | Date | Type | Department | Care Team | Description | +--------+---------+ + + + | 08/24/ | Office | [facility] | Endy Polo, | Cardiomyopathy (HCC) | | 2013 | Visit | CARDIOLOGY [address] | MD [address] | (Primary Dx) | | | | [place], | [place], | | | | | [place] [address] | [place] [address] | | | | | [phone] | [phone] | | | | | | | [...] There is no ankle or leg swelling. Berry nick can sleep on one pillow at night [...] Diarrhea. 40 tablet 5 ergocalciferol (VITAMIN D2) 90740 UNITS capsule Take 50,000 Units by mouth [...] adequa te echocardiography images. In consultation with food beverage attendant reading the exam, LVEF is est imated [...] Patient is in class I of the [employer] fun ctional class. There is [...] signed by: Endy Polo MD [facility] 08/24/2014 13:00 Portions of this chart may have been created with [employer] voice recognition software. Occasi onal wrong-word or sound-alike substitutions may have occurred due to the inherent ruelas itations of voice recognition software. Please read the chart carefully and recognize, using context, where these substitutions have occurred. documented in this encounter Plan of Treatment [...] + + documented as of this encounter Visit Diagnoses + + | Diagnosis | + + | Cardiomyopathy (HCC) - Primary Other primary cardiomyopathies | + + documented in this encounter
--- OUTSIDE RECORDS SUMMARY | ~2019-09-11 | XMS | Encounter Summary ---
Demographics + + + | Address | [address] | | | [place] [address] | + + + | Home Phone | | + + + | Preferred Language | Unknown | + + + | Marital Status | | + + + | Yarsanism Affiliation | Unknown | + + + | Race | Unknown | + + + | Ethnic Group | Unknown | + + + Author + + + | Author | [facility] | | | and Hermannana | + + + | Organization | [facility] | | | and Hermannana | + + + | Address | Unknown | + + + | Phone | Unavailable | + + + Support + + + + + | Name | Relationship | Address | Phone | + + + + + | Yue Fischre | JESE | [address] | | | | | [place], [place] | | | | | [address] | | + + + + + | Greta Broncheau | ECON | [place], [place] | | | | | [address] | | + + + + + Care Team Providers + +------+ + | Care Gas Operations Superintendent Name | Role | Phone | + +------+ + | No, Unknownpcp | PCP | | + +------+ + Encounter Details +--------+ + + + + | Date | Type | Department | Care Team | Description | +--------+ + + + + | 10/20/ | Hospital | [facility] | Thelma, | | | 2011 - | Encounter | MED CTR CANCER | Antonio Infante MD [address] | | | | | [place] [address] | [address] [place] | | | 10/31/ | | [place], [place] | [place] [address] | | | 2011 | | [address] | [phone] | | | | | [phone] | | | +--------+ + + + [...] | 03/25/20 | | | (VITAMIN D3) [address] | mouth Once a week. | | | 12 | 4 | | UNITS CAPS | | | | | | + + + +---------+ + + | Coenzyme [id number] | one by mouth daily | | [...] [address] | [place] | [phone] | | [facility] | | [address] | | | - LABORATORY | | | | + + + + + | [facility] | [address] | [place] | | | [facility] | | [address] | | | - LABORATORY | | [...] 17 | 7 - 18 mg/dL | [facility] | | | | | | [facility] | | | | | | MEDICAL | | | | | | CENTER - | | | | | | LABORATORY | | + + + + + + | Creatinine | 0.65 | 0.60 - 1.30 | [facility] | | | | | mg/dL | [facility] | | | | | | MEDICAL | | | | | | CENTER - | | | | | | LABORATORY | | + + + + + + | Estimated | >60Comment: For | >60 mL/min/A | [facility] | | | GFR | [...] + | [facility] | [address] | [place] | [phone] | | [facility] | | [address] | | | - LABORATORY | | | | + + + + + | [facility] | [address] | [place], [place] | | | [facility] | | [address] | | | - LABORATORY | | [...] + | [facility] | [address] | [place] | [phone] | | [facility] | | [address] | | | - LABORATORY | | | | + + + + + | [facility] | [address] | [place] | | | [facility] | | [address] | | | - LABORATORY | | | | + + + + + documented in this encounter Visit Diagnoses Not on filedocumented in this encounter"
--- OUTSIDE RECORDS SUMMARY | ~2019-09-11 | XMS | Encounter Summary ---
Demographics + + + | Address | [address] | | | [place] [address] | + + + | Home Phone | | + + + | Preferred Language | Unknown | + + + | Marital Status | | + + + | Mormonism Affiliation | Unknown | + + + | Race | Unknown | + + + | Ethnic Group | Unknown | + + + Author + + + | Author | [facility] | | | and Hermannana | + + + | Organization | [facility] | | | and Hermannana [...] [place], [place] | | | | | [address] | | + + + + + | Greta Estebaneau | ECON | [place], [place] | | | | | [address] | | + + + + + Care Team Providers + +------+ + | Care Language And Literature Division Chair Name | Role | Phone | + +------+ + | Becky Jennings | PCP | | + +------+ + Encounter Details +--------+ + + + + | Date | Type | Department | Care Team | Description | +--------+ + + + + | 12/22/ | Abstract | [place] [facility] | Thelma, | | | 2013 | | Conversion Location | Antonio Infante MD [address] | | | | | [phone] | [address] | | | | | | [place] [address] | | | | | | [phone] | | | | | | | [...] + + + | Blood Pressure | - | - | | + [...] + + + + | Weight | 99.2 kg (218 lb 11.1 | 11/14/2013 9:50 AM | | | | oz) | PST | | + + + + + | Height | 162.6 cm (5' 4.02") | 11/14/2013 9:50 AM | | | | | PST | | + + + + + | Body Mass Index | 37.52 | 11/14/2013 9:50 AM | | | | | PST | | + + + + + documented in this encounter Plan of Treatment Not on filedocumented as of this encounter Visit Diagnoses Not on filedocumented in this encounter
--- OUTSIDE RECORDS SUMMARY | ~2019-09-11 | XMS | Encounter Summary ---
Demographics + + + | Address | [address] | | | [place] [address] | + + + | Home Phone [...] + | Author | [facility] | | | and Hermannana | + + + | Organization | [facility] | | | and Hermannana [...] [place], [place] | | | | | [address] | | + + + + + | Greta Esteb[place]au | ECON | [place], [place] | | | | | [address] | | + + + + + Care Team Providers + +------+ + | Care Bale Opener Name | Role | Phone | + +------+ + | Becky Jennings | PCP | | + +------+ + Encounter Details +--------+ + + + + | Date | Type | Department | Care Team | Description | +--------+ + + + + | 02/23/ | Hospital | [facility] | Thelma, | | | 2012 - | Encounter | MED CTR CANCER | Antonio Infante MD [address] | | | | | [place] [address] | [address] [place] | | | 02/28/ | | [place], [place] | [place] [address] | | | 2012 | | [address] | [phone] | | | | | [phone] | | | +--------+ + + + [...] | 03/25/20 | | | (VITAMIN D3) [address] | mouth Once a week. | | [...] +-------+ + + + | WBC | 7.6 | 4.0 - 11.0 K/uL | [facility] | | | | | | MEDICAL | | | | | | CENTER - | | | | | | LABORATORY | | + +-------+ + + + | RBC | 3.70 | 3.70 - 5.20 | [...] + | [facility] | [address] | [place], [place] | [phone] | | [facility] | | [address] | | | - LABORATORY | | | | + + + + + | [facility] | [address] | [place], [place] | | | [facility] | | [address] | | | - LABORATORY | | [...] + | [facility] | [address] | [place] | [phone] | | [facility] | | [address] | | | - LABORATORY | | | | + + + + + | [facility] | [address] | [place] | | | [facility] | | [address] | | | - LABORATORY | | | | + + + + + Lactate Dehydrogenase (02/23/2013 12:24 PM PDT) + +-------+ + + + | Component | Value | Ref Range | Performed | Pathologist | | | | | At | Signature | + +-------+ + + + | LDH TOTAL | 162 | 91 - 180 IU/L | [facility] [...] [address] | [place] | [phone] | | [facility] | | [address] | | | - LABORATORY | | | | + + + + + | [facility] | [address] | [place] | | | [facility] | | [address] | | | - LABORATORY | | | | + + + + + documented in this encounter Visit Diagnoses Not on filedocumented in this encounter"
--- OUTSIDE RECORDS SUMMARY | ~2019-09-11 | XMS | Encounter Summary ---
Demographics + + + | Address | [address] | | | [place] [address] | + + + | Home Phone | | + + + | Preferred Language | Unknown | + + + | Marital Status | | + + + | Christian Affiliation | Unknown | + + + | Race | Unknown | + + + | Ethnic Group | Unknown | + + + Author + + + | Author | [facility] | | | and Hermannana | + + + | Organization | [facility] | | | and Hermannana [...] [place], [place] | | | | | [address] | | + + + + + | Greta Broncheau | ECON | [place], [place] | | | | | [address] | | + + + + + Care Team Providers + +------+ + | Care Ice Maker Name | Role | Phone | + +------+ + PCP | Unavailable | + +------+ + Encounter Details +--------+ + + + + | Date | Type | Department | Care Team | Description | +--------+ + + + + | 03/31/ | Hospital | [facility] | [place], | | | 2011 | Encounter | [facility] | Antonio Infante MD [address] | | | | [place] [address] | [facility] | | | | | [place], [place] | [place] [address] | | | | | [address] | [phone] | | | | | [phone] | | | +--------+ + + + [...] | 03/25/20 | | | (VITAMIN D3) 85819 | mouth Once a week. | | [...] Frida Christian is a 51-year-old woman from [place], [place], with Burkitt's lymphoma. ACTIVE DIAGNOSES: 1. Presentation in August 2001, with intractable searing abdominal pain. Symptoms progre ssed and on October 05, 2011, she underwent advanced imaging that demonstrated diffuse malignant lymphadenopathy throughout the retroperitoneum. 2. Laparoscopic lymph node biopsy on November 10, 2011, at [facility], demonstrated a high grade B cell lymphoma, consistent with Burkitt's lymphoma, positive for BCL6, CD10, CD19, CD20, CD2 2, and kappa light chains. Ignacio-Palmer virus was positive by in situ hybridization, KI 67 f raction was greater than 90%. 3. Initiation of Rituxan/Hyper-CVAD chemotherapy at [facility] on November 15, 2011. CHIEF COMPLAINT: Frida Christian returned to the [facility] in [place], [place] on March 31, 2012, cycle 3A day #17 of Rituxan/Hyper-CVAD chemoth erapy. BRIEF REVIEW OF SYSTEMS: Constitutional: Positive for [...] cytarabine on that date. cc: JING Luis, [facility] <Electronically Signed by Antonio Renee MD> 04/05/12 1422 Antonio Renee MD - 03/15/2012 3:15 AM PDTPROGRESS NOTE: 03/24/2012 IDENTIFYING STATEMENT: Frida Christian is a 51-year-old woman from [place], [place], with Burkitt's lymphoma. ACTIVE DIAGNOSES: 1. Presentation in August 2001, with intractable searing abdominal pain. Symptoms progre ssed and on October 05, 2011, she underwent advanced imaging that demonstrated diffuse malignant lymphadenopathy throughout the retroperitoneum. 2. Laparoscopic lymph node biopsy on November 10, 2011, at [facility], demonstrated a high grade B cell lymphoma, consistent with Burkitt's lymphoma, positive for BCL6, CD10, CD19, CD20, CD2 2, and kappa light chains. Ignacio-Palmer virus was positive by in situ hybridization, KI 67 f raction was greater than 90%. 3. Initiation of Rituxan/Hyper-CVAD chemotherapy at [facility] on November 15, 2011. CHIEF COMPLAINT: Frida Christian returned to the [facility] on March 24, 2012, at cycle no. [...] 3B scheduled for April 05, 2012. CC: [facility] <Electronically Signed by Antonio Renee MD> 04/04/122103 documented in this encounter Plan of Treatment [...] 101 | 70 - 109 mg/dL | AL[facility]IA [...] | 0.68 | 0.60 - 1.30 | [facility] | | | | | mg/dL | [facility] | | | | | | [facility] | | | | | | C[facility] - | | | | | | LABORATORY | | + + + + + + | Estimated | >60Comment: For | >60 mL/min/A | [facility] | | | GFR | -Americans, [...] | 13.2 | 12 - 20 | LAURAE | [...] + | [facility] | [address] | [place] | [phone] | | [facility] | | [address] | | | - LABORATORY | | | | + + + + + | [facility] | [address] | [place] | | | [facility] | | [address] | | | - LABORATORY | | [...] + + | Performing | Address | City/[facility]/Zipcode | Phone Number | | Organization | | | | + + + + + | [facility] | [address] | [place], [place] | [phone] | | [facility] | | [address] | | | - LABORATORY | | | | + + + + + | [facility] | [address] | [place], [place] | | | [facility] | | [address] | | | - LABORATORY | | | | + + + + + CBC with Differential (03/31/2012 9:26 AM PDT) + + + + + + | Component | Value | Ref Range | Performed | Pathologist | | | | | At | Signature | + + + + + + | WBC | 7.1 | 4.0 - 11.0 K/uL | [facility] | [facility] | | | [facility] | | | | | | [facility]ICAL | | | | | | CENTER - | | | | | | LABORATORY | | + + + + + + | RBC | 2.60 (L) | 3.70 - 5.20 [...] + | [facility] | [address] | [place] | [phone] | | [facility] | | [address] | | | - LABORATORY | | | | + + + + + | [facility] | [address] | [place] | | | [facility] | | [address] | | | - LABORATORY | | [...] + | [facility] | [address] | [place] | [phone] | | [facility] | | [address] | | | - LABORATORY | | | | + + + + + | [facility] | [address] | [place] | | | [facility] | | [address] | | | - LABORATORY | | [...] + | [facility] | [address] | [place] | [phone] | | [facility] | | [address] | | | - LABORATORY | | | | + + + + + | [facility] | [address] | [place] | | | [facility] | | [address] | | | - LABORATORY | | | | + + + + + CBC w/ Auto Differential (03/24/2012 8:53 AM PDT) + + + + + + | Component | Value | Ref Range | Performed | Pathologist | | | | | At | Signature | + + + + + + | WBC | 9.8 (A) | 4.0 - 11.0 K/uL | [facility] | | | | | [facility] | | | | | | MEDICAL | | | | | | CENTER - | | | | | | LABORATORY | | + + + + + + | RBC | 2.77 (L) | 3.70 - 5.20 [...] + | [facility] | [address] | [place] | [phone] | | [facility] | | [address] | | | - LABORATORY | | | | + + + + + | [facility] | [address] | [place] | | | [facility] | | [address] | | | - LABORATORY | | | | + + + + + Comprehensive Metabolic Panel (03/15/2012 11:02 AM PDT) + + + + + + | Component | Value | Ref Range | Performed | Pathologist | | | | | At | Signature | + + + + + + | Glucose | 88 | 70 - 109 mg/dL | [facility] [...] | 0.83 | 0.60 - 1.30 | [facility] | [...] | 14.5 | 12 - 20 | [facility] | | | ine Ratio | | [...] | 10.7 | 6.0 - 17.0 | [facility] | [...] [address] | [place] | [phone] | | [facility] | | [address] | | | - LABORATORY | | | | + + + + + | [facility] | [address] | [place] | | | [facility] | | [address] | | | - LABORATORY | | | | + + + + + Lactate Dehydrogenase (03/15/2012 11:02 AM PDT) + +-------+ + + + | Component | Value | Ref Range | Performed | Pathologist | | | | | At | Signature | + +-------+ + + + | LDH TOTAL | 150 | 91 - 180 IU/L | DANEJOYCE [...] + | [facility] | [address] | [place], [place] | [phone] | | [facility] | | [address] | | | - LABORATORY | | | | + + + + + | [facility] | [address] | [place], [place] | | | [facility] | | [address] | | | - LABORATORY | | | | + + + + + CBC with Differential (03/15/2012 11:02 AM PDT) + + + + + + | Component | Value | Ref Range | Performed | Pathologist | | | | | At | Signature | + + + + + + | WBC | 8.9 | 4.0 - 11.0 K/uL | [facility] | | | | | [facility] | | | | | | MEDICAL | | | | | | CENTER - | | | | | | LABORATORY | | + + + + + + | RBC | 3.38 (L) | 3.70 - 5.20 [...] + | [facility] | [address] | [place], [place] | [phone] | | [facility] | | [address] | | | - LABORATORY | | | | + + + + + | [facility] | [address] | [place], [place] | | | [facility] | | [address] | | | - LABORATORY | | | | + + + + + documented in this encounter Visit Diagnoses Not on filedocumented in this encounter"
--- OUTSIDE RECORDS SUMMARY | ~2019-09-11 | XMS | Encounter Summary ---
Demographics + + + | Address | [address] | | | [place] [address] | + + + | Home Phone [...] | Author | [facility] | | | and Hermannana | + + + | Organization | [facility] | | | and Hermannana [...] [place], [place] | | | | | [address] | | + + + + + | Greta Estebaneau | ECON | [place], [place] | | | | | [address] | | + + + + + Care Team Providers + +------+ + | Care Partridge Farmer Name | Role | Phone | + [...] Description | +--------+--------+ + + + | 08/17/ | Refill | [facility] | The[place]ma, | Medication Refill | | 2013 | | MED [facility] | Antonio Infante MD [address] | | | | | [facility] [address] | [facility] | | | | | [facility] | [place] [address] | | | | | [place] [address] | [phone] | | | | | [phone] | | | +--------+--------+ + + + [...]
--- OUTSIDE RECORDS SUMMARY | ~2019-09-11 | XMS | Encounter Summary ---
Demographics + + + | Address | [address] | | | [place] [address] | + + + | Home Phone | | + + + | Preferred Language | Unknown | + + + | Marital Status | Single | + + + | Anabaptism Affiliation | NON | + + + | Race | or | + + + | Ethnic Group | Not or | + + + Author + + + | Author | [facility] | + + + | Organization | [facility] | + + + | Address | Unknown | + + + | Phone | Unavailable | + + + Support + + + + + | Name | Relationship | Address | Phone | + + + + + | Yue Fischer | ECON | [address] | | | | | [place] | | | | | [address] | | + + + + + | Greta Broncheau | ECON | Unknown | | + + + + + Care Team Providers + +------+ + | Care Mat Machine Tender Name | Role | Phone | [...] | | | | | Emeka | Jena Saravia | | | | | | Jena Saravia | Mailcode: | | | | | | [place], [place] | [address] [facility] | | | | | | [address] [facility] | | | | | | Phone: | [place], [place] | | | | | | [phone] | [address] | | | | | | Fax: | Phone: | | | | | | [phone] | [phone] | | | | | | | Fax: | | | | | | | [phone] | +--------+--------+ + + + + Diagnostic Testing (Routine) +--------+--------+ + + + + | Status | Reason | Specialty | Diagnoses / | Referred By | Referred To | | | | | Procedures | Contact | Contact | +--------+--------+ + + + + | Closed | | Cardiology | Procedures | Yang, | Car Echo | | | | | | Maricel, ACNP | [facility] [address] | | | | | TRANSTHORACI | [address] | | | | | C | Emeka | Jena Saravia | | | | | ECHOCARDIOGR | Jena Saravia | Mailcode: | | | | | AM, ADULT | [address], [place] | [address] | | | | | | [address] | [facility] | | | | | | Phone: | Building | | | | | | [phone] | [place], [place] | | | | | | Fax: | [address] | | | | | | [phone] | Phone: | | | | | | | [phone] | +--------+--------+ + + + + Reason [...] + + | 02/08/ | Hospital | [facility] [address] | Hong Last, | | | 2011 - | Encounter | [address] | MD Adelina Guevara | | | | | Mailcode: KPV14 | [place], [place] | | | 02/20/ | | Celso Noyola | [address] | | | 2011 | | [address], [place] | | | | | | [address] | Dylan Martinez | | | | | [phone] | MD Bebe | | +--------+ + [...] Intake/Output Summary (Last 24 hours) at 02/21/12 1610 Last data filed at 02/21/12 1500 [...] the later part of August 2011 when eduardo becerril developed some abdominal pain. It initially started [...] preferre d the procedure be done at [facility] and she was referred to Dr. Silvio [...] 1B prior to dc. LPs done at [facility] showed no evidence of disease. Then she receiv ed care closer to her home in [place]. She recevied 2A and 2B and did well until she had n eutropenic fevers on day 15 of cycle 2B. She was admitted locally and treated with broad spe ctrum therapy and vancomycin for the fevers. No report of any positive cultures from OSH. Pt was transferred to [facility] after she suddenly went into renal failure. 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 Received a dose [...] received vancomycin and cefepime. On admission to [facility] con tinued cefepime at renal dose finished [...] again on 02/24 (walk-in). ) Contact information: [facility] [address] [place] [id number] Other Discharge Orders and Instructions Call Dr. Noriega's office, or if you can't get a hold of anyone there, Call the BMT cli fred ([phone]) or BMT person on-call ([phone]) for: Any temp > 100.4 Nausea/vomiting unresponsive to compazine or ativan Significant diarrhea despite Imodium Inability to drink at least 2 liters of fluid daily Bleeding Outstanding labs/studies: None Attending Physician: Dylan Martinez MD Greater than 35 minutes spent arranging discharge, medications and follow up Discharging Physician: ANALISA PEGUERO PA-C [facility] [address] [place] [address] Mailcode: Kpv14 [facility] [address] Gautam Singletary MD - 02/21/2012 2:16 [...] This includes: Zofia Young Home Medication Instructions [id number]:[id number] Printed on:02/21/12 3690 Medication Information ergocalciferol (VITAMIN D) 50,000 unit [...] >50% spent counseling, coordination of ca re. [facility] DEPARTMENT: [id number]- [facility] MPV Place of Service:- Inpatient Date of Service: 02-21-2012 Suggested CPT:02718 - Discharge Day mgmt more than 30 min GAUTAM LOPEZ MD [facility] 14 [address] [facility] Mailcode: Kpv14 [facility] [address] documented in this encounter Discharge Instructions Instructions Candie Farnsworth RN - 02/18/2012Case Management Discharge Instruction: Appointment to see Dr. Noriega- February 23, 2012 at 3pm. Appointment for CBC, CMP lab draw- February 23, 2012 at 230pm. Appointment for Labs- February 25, 2012-open appointment/walk in Further lab appointment will be determined by Dr. Thelma Braun RN [phone] Call if you have any questions! [facility] ([facility]) during clinic hours (M-F 8:30-4:30): [phone] [facility] ([facility]) at all other times: [phone] 14KPV: [phone] Patient Education Materials: N/A Additional Instructions: Check [...] Max | | | | | | ([facility]) | dose: 40 mg/day | | [...] and coordination of care DYLAN MARTINEZ MD [facility] [address] [place] [address] Mailcode: Kpv14 [facility] [address] [facility] DE[facility]MENT: [id number]- [facility] MP Place of Service:- Inpatient Date of Service: 02/20/2012 Suggested CPT:63675 - Subsequent, Detailed/High complex 35 min urLori [...] preferre d the procedure be done at [facility] and she was referred to Dr. Silvio [...] 1B prior to dc. LPs done at [facility] showed no evidence of disease. Then she receiv ed care closer to her home in [place]. She recevied 2A and 2B and did well until she had n eutropenic fevers on day 15 of cycle 2B. She was admitted locally and treated with broad spe ctrum therapy and vancomycin for the fevers. No report of any positive cultures from OSH. Pt was transferred to [facility] after she suddenly went into renal failure. [...] received vancomycin and cefepime. On admission to [facility] continue d cefepime at renal dose through [...] recs, resp virus panel 02/10/12 rolo abraham. -afebrile off antibotics. Fungal: Prophylactic fluconazole stopped [...] indicated at this time. Sabrina Fowler PA-C [facility] [address] [facility] Mailcode: Kpv14 [facility] [address] Ingrid Lau - 02/19/2012 6:44 PM PDTPatient Name: ZOFIA YOUNG Date of : 1960 CARE COORDINATION ROUNDING NOTE Care Coordination rounds held. Disciplines attending included: Physician,, Physician's Picc Nurse,, Nurse Practitioner,, Pharmacist, Other: Electronically signed by:Ingrid Braun Position:Director [employer] Sciences Pager ID:[phone] 12 6:44 PM PDTSabrina Fowler - 02/19/2012 5:37 PM PDT Daily NPP [...] preferre d the procedure be done at [facility] and she was referred to Dr. Silvio [...] 1B prior to dc. LPs done at [facility] showed no evidence of disease. Then she receiv ed care closer to her home in [place]. She recevied 2A and 2B and did well until she had n eutropenic fevers on day 15 of cycle 2B. She was admitted locally and treated with broad spe ctrum therapy and vancomycin for the fevers. No report of any positive cultures from OSH. Pt was transferred to [facility] after she suddenly went into renal failure. [...] received vancomycin and cefepime. On admission to [facility] continue d cefepime at renal dose through [...] ne leigh. -afebrile off antibotics. Fungal: Prophylactic fluconazole. Viral: [...] indicated at this time. Sabrina Fowler PA-C [facility] [address] [facility] Mailcode: Kpv14 [place] [facility] [address] Gautam Tapia MD - 02/19/2012 8:16 AM PDT NEPHROLOGY FOLLOW UP [...] (aka OCEAN) 0.65 % nasal spray 1 Silverton 1 [place] Nasal Q1H PRN temazepam (aka RESTORIL) capsule [...] (high dose methotrexate and cytarabine) transferred to [facility] for non-oliguric KIERA due to ATN, likely due to sepsis. Now recovering, creatinine is trending down, starting to h ave good clearance, UOP is excellent. Recommendations: - monitor for post ATN diuresis - when plan for discharge should have close lab follow up to assure continued renal recov ayana - we will sign off The patient was seen and discussed with Dr. Figueroa who agrees with the above assessment a nd plan. GAUTAM PARKS MD Internal Medicine PGY2 Pager [phone] Dylan Yusuf M D - 02/19/2012 7:10 [...] and coordination of care DYLAN MARTINEZ MD [facility] [address] [facility] Mailcode: Kpv14 [place] [facility] [address] [facility] DEPARTMENT: [id number]- [facility] MP Place of Service:- Inpatient Date of Service: 02/19/2012 Suggested CPT:41944 - Subsequent, Detailed/High complex 35 min Ingrid Lau - 02/18/2012 6:43 PM PDTPatient Name: ZOFIA YOUNG Date of : 1960 CARE COORDINATION ROUNDING NOTE Care Coordination rounds held. Disciplines attending included: Director Life Sciences,, Bedside RN,, book editor,, Physician,, Physician's Picc Nurse,, Nurse Practitioner,, Box Toe Maker,, Other: Electronically signed by:Ingrid Braun Position:Director Life Sciences Pager ID:[phone] 12 6:43 PM Ingrid Lau - 02/18/2012 [...] be determined by Dr. Thelma Braun RN [phone] Electronically signed by:Ingrid Braun Position:Director Life Sciences Pager ID:[phone] 12 4:47 PM PDTIngrid Braun - 02/18/2012 4:47 PM PDTPatient Name: ZOFIA YOUNG Date of : 1960 CARE COORDINATION ROUNDING NOTE Care Coordination rounds held. Disciplines attending included: Director Life Sciences,, Bedside RN,, book editor,, Physician,, Physician's Picc Nurse,, Nurse Practitioner,, Box Toe Maker,, Other: Electronically signed by:Ingrid Braun Position:Director Life Sciences Pager ID:[phone] 12 4:47 PM PDTMalcolmSabrina Eduardo - 02/18/2012 1:50 PM PDT Daily NPP [...] preferre d the procedure be done at [facility] and she was referred to Dr. Silvio [...] 1B prior to dc. LPs done at [facility] showed no evidence of disease. Then she receiv ed care closer to her home in [place]. She recevied 2A and 2B and did well until she had n eutropenic fevers on day 15 of cycle 2B. She was admitted locally and treated with broad spe ctrum therapy and vancomycin for the fevers. No report of any positive cultures from OSH. Pt was transferred to [facility] after she suddenly went into renal failure. [...] received vancomycin and cefepime. On admission to [facility] continue d cefepime, currently at renal dose [...] recs, resp virus panel 02/10/12 ne [place]. Fungal: Prophylactic fluconazole. Viral: Prophylactic Acyclovir. PCP: [...] indicated at this time. Sabrina Fowler PA-C [facility] [address] [facility] Mailcode: Kpv14 [facility] [id number] Dlyan Yusuf MD - 02/18/2012 7:07 AM PDTLeukemia/CHM [...] and coordination of care DYLAN MARTINEZ MD [facility] 14 [address] [facility] Mailcode: Kpv14 [facility] [address] [facility] DEPARTMENT: [id number]- [facility] MPV Place of Service:- Inpatient Date of Service: 02/18/2012 Suggested CPT:45209 - Subsequent, Detailed/High complex 35 min Jordan [...] preferre d the procedure be done at [facility] and she was referred to Dr. Silvio [...] 1B prior to dc. LPs done at [facility] showed no evidence of disease. Then she receiv ed care closer to her home in [place]. She recevied 2A and 2B and did well until she had n eutropenic fevers on day 15 of cycle 2B. She was admitted locally and treated with broad spe ctrum therapy and vancomycin for the fevers. No report of any positive cultures from OSH. Pt was transferred to [facility] after she suddenly went into renal failure. [...] received vancomycin and cefepime. On admission to [facility] continue d cefepime, currently at renal dose 1g q24 hours and vancomycin was not given. Her level has been at toxic levels of ~60 and down to 39.1 today. -Received levaquin per pulmonary recs, stopped on 02/13/12 per ID recs with improvement in p ulmonary status. -received oseltamivir (5 days to 02/10/12- 02/14/12) per ID recs, resp virus panel 02/10/12 ne leigh. -Plan to continue Cefepime through 02/19/12 to [...] indicated at this time. JORDAN SALINAS PA-C [facility] [address] [facility] Mailcode: Kpv14 [facility] [address] Dylan Yusuf MD - 02/17/2012 7:05 AM [...] and coordination of care DYLAN MARTINEZ MD [facility] [address] [facility] Mailcode: Kpv14 [facility] [address] [facility] DEPARTMENT: [id number]- [facility] MPV Place of Service:- Inpatient Date of Service: 02/17/2012 Suggested CPT:86802 - Subsequent, Detailed/High complex 35 min Adriano Tello MD - 02/16/2012 9:05 AM PDTI performed a history and physical [...] indication for HD. MD ADRIANO Sellers MD [facility] [address] [facility] Mailcode: Kpv14 [place] [address] [facility] DEPARTMENT: [id number]- [facility] Place of Service: CSN: [id number] Suggested Modifier: GC Resident Involved Gautam Tapia MD - 02/16/2012 9:05 AM PDT NEPHROLOGY FOLLOW [...] 02/16/12 0800 Gross per 24 hour Intake 2015 ml Output 2550 ml Net -535 ml [...] (aka OCEAN) 0.65 % nasal spray 1 Silverton 1 [place] Nasal Q1H PRN temazepam (aka RESTORIL) capsule [...] (high dose methotrexate and cytarabine) transferred to [facility] for non-oliguric morelia l failure and pulmonary [...] GAUTAM PARKS MD Internal Medicine PGY2 Pager [phone] Latosha Aguayo FNP - 02/16/2012 7:50 AM [...] Intake/Output Summary (Last 24 hours) at 02/16/12 2615 Last data filed at 02/16/12 1400 Gross [...] the later part of August 2011 when eduardo becerril developed some abdominal pain. It initially started [...] preferre d the procedure be done at [facility] and she was referred to Dr. Silvio [...] 1B prior to dc. LPs done at [facility] showed no evidence of disease. Then she receiv ed care closer to her home in [place]. She recevied 2A and 2B and did well until she had n eutropenic fevers on day 15 of cycle 2B. She was admitted locally and treated with broad spe ctrum therapy and vancomycin for the fevers. No report of any positive cultures from OSH. Pt was transferred to [facility] after she suddenly went into renal failure. [...] received vancomycin and cefepime. On admission to [facility] continue d cefepime, currently at renal dose 1g q24 hours and vancomycin was not given. Her level has been at toxic levels of ~60 and down to 40 today. -Received levaquin per pulmonary recs, stopped on 02/13/12 per ID recs with improvement in p ulmonary status. -received oseltamivir (5 days to 02/10/12- 02/14/12) per ID recs, resp virus panel 02/10/12 ne [place]. Fungal: Prophylactic fluconazole. Viral: Prophylactic Acyclovir. PCP: [...] insulin indicated at this time. JING OBREGON [facility] [address] [facility] Mailcode: Kpv14 [facility] [address] Dylan Yusuf MD - 02/16/2012 7:04 AM [...] 4. Code status: full DYLAN MARTINEZ MD [facility] [address] [facility] Mailcode: Kpv14 [place] [facility] [address] [facility] DEPARTMENT: [id number]- [facility] MPV Place of Service:- Inpatient Date of Service: 02/16/2012 Suggested CPT:14564 - Subsequent, Detailed/High complex 35 min Jordan [...] preferre d the procedure be done at [facility] and she was referred to Dr. Silvio [...] 1B prior to dc. LP's done at [facility] showed no evidence of disease. Then she recei olivier care closer to her home in [place]. She recevied 2A and 2B and did well until she had neutropenic fevers on day 15 of cycle 2B. She was admitted locally and treated with broad sp ectrum therapy and vancomycin for the fevers. No report of any positive cultures from OSH. P t was transferred to [facility] after she suddenly went into renal failure. Current Heme issues: -Hx of Burkitt's lymphoma, currently s/p cycle 2B of Hyper CVAD (received in [place]). -CBC shows counts recovering from recent chemo. [...] received vancomycin and cefepime, on admission to [facility] continued cefepime, currently at renal dose 1g q24 hours and vancomycin was not given, her level has been at toxic levels of ~60 and down to 47 today. -Received levaquin per pulmonary recs, stopped on 02/13/12 per ID recs with improvement in p ulmonary status. -received oseltamivir (5 days to 02/10/12- 02/14/12) per ID recs, resp virus panel 02/10/12 ne [place]. Fungal: Prophylactic fluconazole. Viral: Prophylactic Acyclovir. PCP: [...] indicated at this time. JORDAN SALINAS PA-C [facility] [address] [place] [address] Mailcode: Kpv14 [facility] [place] [address] Adriano Tello M D - 02/15/2012 8:18 AM PDTI performed a history and physical examination of the patient and discussed her management with the resident. I reviewed the resident s note and agree wit h the documented findings and plan of care. Pt is a 51 y/o with non-oliguric KIERA, expect rec overy soon. UOP is encouraging. MD ADRIANO Sellers MD [facility] [address] [facility] Mailcode: Kpv14 [facility] [place] [address] [facility] DE[facility]: [id number] Place of Service: - IP CSN: [id number] Suggested Modifier: GC Resident Involved Gautam Tapia [...] 1 g Intravenous Q24H 1 g (02/14/12 7159) dronabinol (aka MARINOL) capsule 2.5 mg 2.5 [...] (aka OCEAN) 0.65 % nasal spray 1 Silverton 1 [place] Nasal Q1H PRN temazepam (aka RESTORIL) capsule [...] (high dose methotrexate and cytarabine) transferred to [facility] for non-oliguric morelia l failure and pulmonary [...] GAUTAM PARKS MD Internal Medicine PGY2 Pager [phone] Dylan Yusuf MD - 02/15/2012 6:54 AM [...] 4. Code status: full DYLAN MARTINEZ MD [facility] [address] [facility] Mailcode: Kpv14 [facility] [address] [facility] DEPARTMENT: [id number]- [facility] MPV Place of Service:11985- Inpatient Date of Service: 02/15/2012 Suggested CPT:51515 - Subsequent, Detailed/High complex 35 min urLori [...] preferre d the procedure be done at [facility] and she was referred to Dr. Silvio [...] 1B prior to dc. LP's done at [facility] showed no evidence of disease. Then she recei olivier care closer to her home in [place]. She recevied 2A and 2B and did well until she had neutropenic fevers on day 15 of cycle 2B. She was admitted locally and treated with broad sp ectrum therapy and vancomycin for the fevers. No report of any positive cultures from OSH. P t was transferred to [facility] after she suddenly went into renal failure. Current Heme issues: -Hx of Burkitt's lymphoma, currently s/p cycle 2B of Hyper CVAD (received in [place]). -CBC shows counts recovering from recent chemo. [...] received vancomycin and cefepime, on admission to [facility] continued cefepime, currently at renal dose 1g [...] indicated at this time. Sabrina Fowler PA-C [facility] [address] [facility] Mailcode: Kpv14 [place] [facility] [address] Hong Rodriguez MD - 02/14/2012 1:01 PM [...] rhonchi, and better wheezing Labs: reviewed in [facility] 02/08 CT chest noncontrast IMPRESSION: Multifocal progressive [...] as a culprit for ongoing toxicity, this mi ght add rationale. 2. Pulmonary infiltrates - pulm [...] trump continued therapy HONG LAST MD 02/14/2012 [facility] DEPARTMENT: [id number]- [facility] MPV Place of Service:- Inpatient Suggested CPT:08637 - Subsequent, Detailed/High complex 35 min Adriano [...] (aka OCEAN) 0.65 % nasal spray 1 Silverton, 1 [place], Nasal, Q1H PRN temazepam (aka RESTORIL) capsule [...] (high dose methotrexate and cytarabine) transferred to [facility] for non-oliguric renal failu re and pulmonary [...] much as possible -- MBD- ca/phos stable [facility] DEPARTMENT: [id number]- [facility] Place of Service: [address] - CSN: [id number] Suggested Modifier: None abrina Fowler - 02/13/2012 [...] accessed. Lab Results: Recent Labs Basename 02/13/12 0011 02/12/12 0006 02/11/12175502/11/127 NA 136 135 -- 138 [...] Recent Labs Basename 02/13/12 0011 02/12/12 0006 02/11/127 WBC 4.7 4.1* 3.5* RBC 3.16* 3.05* [...] preferre d the procedure be done at [facility] and she was referred to Dr. Silvio [...] 1B prior to dc. LP's done at [facility] showed no evidence of disease. Then she recei olivier care closer to her home in [place]. She recevied 2A and 2B and did well until she had neutropenic fevers on day 15 of cycle 2B. She was admitted locally and treated with broad sp ectrum therapy and vancomycin for the fevers. No report of any positive cultures from OSH. P t was transferred to [facility] after she suddenly went into renal failure. Current Heme issues: -Hx of Burkitt's lymphoma, currently s/p cycle 2B of Hyper CVAD (received in [place]). -CBC shows counts recovering from recent chemo. [...] received vancomycin and cefepime, on admission to [facility] continued cefepime, currently at renal dose 1g [...] indicated at this time. Sabrina Fowler PA-C [facility] [address] [facility] Mailcode: Kpv14 [facility] [address] Adriano Tello MD - 02/13/2012 1:59 PM [...] (aka OCEAN) 0.65 % nasal spray 1 Silver[place], 1 [place], Nasal, Q1H PRN temazepam (aka RESTORIL) capsule [...] (high dose methotrexate and cytarabine) transferred to [facility] for non-oliguric renal failu re and pulmonary [...] much as possible -- MBD- ca/phos stable [facility] DEPARTMENT: [id number]- [facility] Place of Service: [address] - IP CSN: [id number] Suggested Modifier: None Hong Rodriguez MD - [...] rhonchi, and better wheezing Labs: reviewed in [facility] 02/08 CT chest noncontrast IMPRESSION: Multifocal progressive [...] therapy HONG LAST MD 02/13/2012 10:06 AM [facility] DEPARTMENT: [id number]- [facility] M[facility] Place of Service:- Inpatient Suggested CPT:41666 - Subsequent, Detailed/High complex 35 min Ingrid Lau - 12:58 PM PDTPatient Name: ZOFIA YOUNG Date of : 1960 CARE COORDINATION ROUNDING NOTE Care Coordination rounds held. Disciplines attending included: Director Life Sciences,, Maintenance Mechanic Technician,, Bedside RN,, book editor,, Physician,, Physician's Picc Nurse,, Nurse Practitioner,, Box Toe Maker,, Pharmacist, Other: Electronically signed by:Ingrid Braun Position:Director Life Sciences Pager ID:[phone] 12 12:58 PM Hong Rodriguez MD - [...] and prolonged expiratory wheezes Labs: [facility] 02/08 CT chest noncontrast IMPRESSION: Multifocal progressive [...] therapy HONG LAST MD 02/12/2012 11:25 AM [facility] DEPARTMENT: [id number]- [facility] Place of Service:[id number]- Inpatient Suggested CPT:77507 - Subsequent, Detailed/High complex 35 min abrina [...] with emesis prompting a return visit to [facility] PCP office on 09/30/2011. She continued [...] preferre d the procedure be done at [facility] and she was referred to Dr. Silvio [...] 1B prior to dc. LP's done at [facility] showed no evidence of disease. Then she recei olivier care closer to her home in [place]. She recevied 2A and 2B and did well until she had neutropenic fevers on day 15 of cycle 2B. She was admitted locally and treated with broad sp ectrum therapy and vancomycin for the fevers. No report of any positive cultures from OSH. P t was transferred to [facility] after she suddenly went into renal failure. Current Heme issues: -Hx of Burkitt's lymphoma, currently s/p cycle 2B of Hyper CVAD (received in [place]). -CBC shows counts recovering. ANC 2700. -No [...] indicated at this time. Sabrina Fowler PA-C [facility] 14 [address] [facility] Mailcode: [id number] [facility] [address] Dennys Mckeon MD - 02/12/2012 8:36 AM PDTI saw and examined this patient, discussed with Dr. Parks and darian landa with the assessment and plans as outlined. [facility] DEPARTMENT: [id number]- [facility] Place of Service: 48814 - CSN: [id number] Suggested Modifier: GC Resident Involved Gautam Tapia [...] 2 g Intravenous PRN 2 g (02/11/120) morphine injection Inj 1-4 mg 1-4 mg [...] (aka OCEAN) 0.65 % nasal spray 1 Silverton 1 Silverton Nasal Q1H PRN temazepam (aka RESTORIL) capsule [...] (high dose methotrexate and cytarabine) transferred to [facility] for non-oliguric morelia l failure and pulmonary [...] GAUTAM PARKS MD Internal Medicine PGY2 Pager [phone] uruya JING, Manami - 0 02/11/2012 10:21 AM PDT Daily [...] preferre d the procedure be done at [facility] and she was referred to Dr. Silvio [...] 1B prior to dc. LP's done at [facility] showed no evidence of disease. Then she recei olivier care closer to her home in [place]. She recevied 2A and 2B and did well until she had neutropenic fevers on day 15 of cycle 2B. She was admitted locally and treated with broad sp ectrum therapy and vancomycin for the fevers. No report of any positive cultures from OSH. P t was transferred to [facility] after she suddenly went into renal failure. 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 -CBC shows counts on recovery. -No transfusion [...] today (02/11/12), no insulin required. JING [facility] 14 [address] [facility] Mailcode: [id number] [facility] [id number] Hong Rodriguez MD - 02/11/2012 10:04 AM [...] and prolonged expiratory wheezes Labs: [facility] 02/08 CT chest noncontrast IMPRESSION: Multifocal progressive [...] therapy HONG LAST MD 02/11/2012 1:51 PM [facility] DEPARTMENT: [id number]- [facility] Place of Service:- Inpatient Suggested CPT:39710 - Subsequent, Detailed/High complex 35 min Dennys Mckeon MD - 02/11/2012 8:38 AM PDTI saw and examined this patient, discussed with Dr. Parks and deepthi ortiz with the assessment and plans as outlined. I saw the patient on 02/10. [facility] DE[facility]: [id number]- [facility] Place of Service: 75751 - IP CSN: [id number] Suggested Modifier: GC Resident Involved Gautam Tapia [...] (aka OCEAN) 0.65 % nasal spray 1 Silverton 1 Silverton Nasal Q1H PRN sodium phosphate IV 20 [...] (high dose methotrexate and cytarabine) transferred to [facility] for non-oliguric morelia l failure and pulmonary [...] MD Chava JASSO Internal Medicine PGY2 Pager [phone] aricel Soria [facility] - 02/10/2012 4:58 PM PDT Daily NPP [...] preferre d the procedure be done at [facility] and she was referred to Dr. Silvio [...] 1B prior to dc. LP's done at [facility] showed no evidence of disease. Then she rec eived care closer to her home in [place]. She recevied 2A and 2B and did well until she h ad neutropenic fevers on day 15 of cycle 2B. She was admitted locally and treated with broad spectrum therapy and vancomycin for the fevers. No report of any positive cultures from OS H. Pt was transferred to [facility] after she suddenly went into renal failure. Current Heme issues: -hx of Burkitt's lymphoma, currently s/p cycle 2B of Hyper CVAD (received in [place])- re covering counts. . -CBC reviewed -There [...] and sliding s xochilt insulin [facility] [address] [facility] Mailcode: [id number] [facility] [address] ere Villarreal 02/10/2012 3:53 PM PDTTransthoracic echocardiogram [...] for disch. Electronically signed by:Ingrid Braun Position:Director Life Sciences Pager ID:[phone] 12 1:46 PM Hong Rodriguez MD - [...] and prolonged expiratory wheezes Labs: [facility] 02/08 CT chest noncontrast IMPRESSION: Multifocal progressive [...] relapse but current issues trump continued therapy HOGN LAST MD 02/10/2012 12:49 PM [facility] DE[facility]MENT: [id number]- [facility] Place of Service:- Inpatient Suggested CPT:14153 - Subsequent, Detailed/High complex 35 min documented [...] + | CBC WITH | Routin | 02/20/2012 | | [...] SLAUGHTER (VANA) BY PCR | Routin | 02/09/2012 | [...] | + + + + + | [facility] DEPARTMENT OF | [address] | [place] [address] | | | PATHOLOGY | [address] [...] DEPARTMENT OF | [address] | [place] [address] | | | PATHOLOGY | [address] [...] DEPARTMENT OF | [address] | [place] [address] | | | PATHOLOGY | [address] [...] | + + + + + | [facility] | [address] | [place] [address] | | | PATHOLOGY | [address] [...] DEPARTMENT OF | [address] | [place] [address] | | | PATHOLOGY | [address] [...] + + | [facility] DEPARTMENT OF | [address] | [place] [address] | | | PATHOLOGY | [address] [...] | + + + + + | [facility] DEPARTMENT OF | [address] | [place] [address] | | | PATHOLOGY | [address] [...] DEPARTMENT OF | [address] | [place] [address] | | | PATHOLOGY | [address] [...] DEPARTMENT OF | [address] | [place] [address] | | | PATHOLOGY | [address] [...] | + + + + + | [facility] | [address] | [place] [address] | | | PATHOLOGY | [address] [...] | + + + + + | [facility] DEPARTMENT OF | [address] | [place] [address] | | | PATHOLOGY | [address] [...] DEPARTMENT OF | [address] | [place] [address] | | | PATHOLOGY | [address] [...] + | * Corrected 02/19/12 08:28: HILARIO STILL, prev report: Gabriella | [facility] | | review pending. | DEPARTMENT OF | | | PATHOLOGY | + + + + + + + + | Performing | Address | City/State/Zipcode | Phone Number | | Organization | | | | + + + + + | [facility] DEPARTMENT OF | [address] | [place] [address] | | | PATHOLOGY | [address] [...] | + + + + + | [facility] DEPARTMENT OF | [address] | [place] [address] | | | PATHOLOGY | [address] [...] | + + + + + | [facility] DEPARTMENT | [address] | [place] [address] | | | PATHOLOGY | [address] [...] | + + + + + | [facility] | [address] | [place] [address] | | | PATHOLOGY | [address] | | | + + + + + MAGNESIUM, PLASMA (02/19/2012 12:33 AM PDT) + +---------+ + + + | Component | Value | Ref Range | Performed | Pathologist | | | | | At | Signature | + +---------+ + + + | MAGNESIUM,P | 1.7 (L) | 1.8 - 2.5 mg/dL | [facility] | | | LASMA | | | [...] | + + + + + | [facility] DEPARTMENT OF | [address] | [place] [address] | | | PATHOLOGY | [address] [...] + + + + + | [facility] | [address] | [place] [address] | | | PATHOLOGY | [address] [...] 02:08: HILARIO STILL, prev report: Slide | [facility] | | review pending. | DEPARTMENT OF | | | PATHOLOGY | + + + + + + + + | Performing | Address | City/State/Zipcode | Phone Number | | Organization | | | | + + + + + | [facility] DEPARTMENT OF | [address] | [place] [address] | | | PATHOLOGY | [address] [...] 02:08: HILARIO STILL, prev report: Slide | [facility] | | review pending. | DEPARTMENT OF | | | PATHOLOGY | + + + + + + + + | Performing | Address | City/State/Zipcode | Phone Number | | Organization | | | | + + + + + | [facility] DEPARTMENT OF | [address] | [place] [address] | | | PATHOLOGY | [address] [...] DEPARTMENT OF | [address] | [place] [address] | | | PATHOLOGY | [address] [...] DEPARTMENT OF | [address] | [place] [address] | | | PATHOLOGY | [address] [...] | + + + + + | [facility] | [address] | [place] [address] | | | PATHOLOGY | [address] [...] | + + + + + | [facility] DEPARTMENT OF | [address] | [place] [address] | | | PATHOLOGY | [address] [...] | + + + + + | [facility] | [address] | [place] [address] | | | PATHOLOGY | [address] [...] DEPARTMENT OF | [address] | [place] [address] | | | PATHOLOGY | [address] [...] | + + + + + | [facility] DEPARTMENT | [address] | [place] [address] | | | PATHOLOGY | [address] | | | + + + + + MAGNESIUM, PLASMA (02/18/2012 12:01 AM PDT) + +-------+ + + + | Component | Value | Ref Range | Performed | Pathologist | | | | | At | Signature | + +-------+ + + + | MAGNESIUM,P | 1.9 | 1.8 - 2.5 mg/dL | [facility] | | | LASMA | | | [...] | + + + + + | [facility] | [address] [facility] | [place] [address] | | | PATHOLOGY | [address] [...] | + + + + + | [facility] | [address] | [place] [address] | | | PATHOLOGY | [address] [...] + | [place] DEPARTMENT OF | [address] [facility] | [place] [address] | | | PATHOLOGY | [address] [...] + + + + + | [facility] | [address] | [place] [address] | | | PATHOLOGY | [address] [...] + | * Corrected 02/17/12 02:39: HILARIO COMMENTS, prev report: Slide | [facility] | | review pending. | DEPARTMENT OF | | | PATHOLOGY | + + + + + + + + | Performing | Address | City/State/Zipcode | Phone Number | | Organization | | | | + + + + + | [facility] DEPARTMENT OF | [address] | [place] [address] | | | PATHOLOGY | [address] | | | + + + + + PHOSPHORUS, PLASMA (02/17/2012 12:10 AM PDT) + +-------+ + + + | Component | Value | Ref Range | Performed | Pathologist | | | | | At | Signature | + +-------+ + + + | PHOSPHORUS, | 4.7 | 2.4 - 4.7 mg/dL | [facility] | | | PLASMA | | | [...] | + + + + + | [facility] | [address] | [place] [address] | | | PATHOLOGY | [address] | | | + + + + + MAGNESIUM, PLASMA (02/17/2012 12:10 AM PDT) + +---------+ + + + | Component | Value | Ref Range | Performed | Pathologist | | | | | At | Signature | + +---------+ + + + | MAGNESIUM,P | 1.6 (L) | 1.8 - 2.5 mg/dL | [facility] | | | LASMA | | | [...] | + + + + + | [facility] DEPARTMENT | [address] | [place] [address] | | | PATHOLOGY | [address] [...] | + + + + + | [facility] | [address] | [place] [address] | | | PATHOLOGY | [address] [...] | | | | Signed by: Anastacia Carpenter | THERAPY | | | | ANSHUL [...] + | [facility] | [address] | [place], [place] | | | THERAPY | [address] | [address] | | + + + + + [...] | + + + + + | [facility] DEPARTMENT OF | [address] | [place] [address] | | | PATHOLOGY | [address] [...] | + + + + + | [facility] | [address] | [place] [address] | | | PATHOLOGY | [address] [...] 06:21: HILARIO COMMENTS, prev report: Slide | [facility] | | review pending. | DEPARTMENT OF | | | PATHOLOGY | + + + + + + + + | Performing | Address | City/State/Zipcode | Phone Number | | Organization | | | | + + + + + | [facility] DEPARTMENT OF | [address] | [place] [address] | | | PATHOLOGY | [address] [...] | + + + + + | [facility] DEPARTMENT OF | [address] | [place] [address] | | | PATHOLOGY | [address] | | | + + + + + MAGNESIUM, PLASMA (02/16/2012 12:08 AM PDT) + +---------+ + + + | Component | Value | Ref Range | Performed | Pathologist | | | | | At | Signature | + +---------+ + + + | MAGNESIUM,P | 1.7 (L) | 1.8 - 2.5 mg/dL | [facility] | | | LASMA | | | [...] | + + + + + | [facility] | [address] [facility] | [place] [address] | | | PATHOLOGY | [address] [...] | + + + + + | [facility] | [address] | [place] [address] | | | PATHOLOGY | [address] [...] [facility] | [address] | [place], [place] | | | THERAPY | [address] | [address] | | + + + + + [...] | + + + + + | [facility] | [address] | [place] [address] | | | PATHOLOGY | [address] [...] 02:28: HILARIO COMMENTS, prev report: Slide | [facility] | | review pending. | DEPARTMENT OF | | | PATHOLOGY | + + + + + + + + | Performing | Address | City/State/Zipcode | Phone Number | | Organization | | | | + + + + + | [facility] DEPARTMENT OF | [address] [facility] | [place] [address] | | | PATHOLOGY | [address] | | | + + + + + JORDAN REYES (02/15/2012 12:07 AM PDT) + +-------+ + [...] DEPARTMENT OF | [address] | [place] [address] | | | PATHOLOGY | [address] [...] | + + + + + | [facility] | [address] | [place] [address] | | | PATHOLOGY | [address] [...] 02:28: HILARIO COMMENTS, prev report: Slide | [facility] | | review pending. | DEPARTMENT OF | | | PATHOLOGY | + + + + + + + + | Performing | Address | City/State/Zipcode | Phone Number | | Organization | | | | + + + + + | [facility] DEPARTMENT OF | [address] | [place] [address] | | | PATHOLOGY | [address] [...] [facility] DEPARTMENT | [address] | [place] [address] | | | PATHOLOGY | [address] [...] | + + + + + | [facility] | [address] | [place] [address] | | | PATHOLOGY | [address] | | | + + + + + ALLEN WILLS (02/15/2012 12:07 AM PDT) + +-------+ + + + | Component | Value | Ref Range | Performed | Pathologist | | | | | At | Signature | + +-------+ + + + | BILIRUBIN | 0.1 | <0.4 mg/dL | [facility] | | | DIRECT | | | [...] | + + + + + | [facility] DEPARTMENT OF | [address] | [place] [address] | | | PATHOLOGY | [address] [...] | + + + + + | [facility] DEPARTMENT OF | [address] | [place] [address] | | | PATHOLOGY | [address] | | | + + + + + PHOSPHORUS, PLASMA (02/15/2012 12:07 AM PDT) + +---------+ + + + | Component | Value | Ref Range | Performed | Pathologist | | | | | At | Signature | + +---------+ + + + | PHOSPHORUS, | 5.2 (H) | 2.4 - 4.7 mg/dL | [facility] | | | PLASMA | | | [...] | + + + + + | [facility] | [address] | [place] [address] | | | PATHOLOGY | [address] | | | + + + + + MAGNESIUM, PLASMA (02/15/2012 12:07 AM PDT) + +-------+ + + + | Component | Value | Ref Range | Performed | Pathologist | | | | | At | Signature | + +-------+ + + + | MAGNESIUM,P | 1.9 | 1.8 - 2.5 mg/dL | [facility] | | | LASMA | | | [...] | + + + + + | [facility] DEPARTMENT OF | [address] | [place] [address] | | | PATHOLOGY | [address] [...] | + + + + + | [facility] | [address] | [place] [address] | | | PATHOLOGY | [address] [...] [facility] | [address] | [place], [place] | | | THERAPY | [address] | [address] | | + + + + + [...] 01:22: HILARIO COMMENTS, prev report: Slide | [facility] | | review pending. | DEPARTMENT OF | | | PATHOLOGY | + + + + + + + + | Performing | Address | City/State/Zipcode | Phone Number | | Organization | | | | + + + + + | [facility] DEPARTMENT OF | [address] | [place] [address] | | | PATHOLOGY | [address] [...] | + + + + + | [facility] DEPARTMENT OF | [address] | [place] [address] | | | PATHOLOGY | [address] [...] | + + + + + | [facility] | [address] | [place] [address] | | | PATHOLOGY | [address] [...] + + | * Corrected 02/14/12 01:22: HILAROI COMMENTS, prev report: Slide | [facility] | | review pending. | DEPARTMENT OF | | | PATHOLOGY | + + + + + + + + | Performing | Address | City/State/Zipcode | Phone Number | | Organization | | | | + + + + + | [facility] DEPARTMENT OF | [address] | [place] [address] | | | PATHOLOGY | [address] [...] | + + + + + | [facility] DEPARTMENT OF | [address] | [place] [address] | | | PATHOLOGY | [address] [...] | + + + + + | [facility] | [address] [facility] | [place] [address] | | | PATHOLOGY | [address] [...] | + + + + + | [facility] | [address] | [place] [address] | | | PATHOLOGY | [address] [...] DEPARTMENT OF | [address] | [place] [address] | | | PATHOLOGY | [address] [...] [place], | | | | | | Clint I have personally | | | | [...] | | + +---------+ + + | [facility] DEPARTMENT OF | | | | | [...] + + | [facility] | [address] [facility] | [place], [place] | | | THERAPY | [address] | [address] | | + + + + + [...] 04:14: HILARIO COMMENTS, prev report: Slide | [facility] | | review pending. | DEPARTMENT OF | | | PATHOLOGY | + + + + + + + + | Performing | Address | City/State/Zipcode | Phone Number | | Organization | | | | + + + + + | [facility] DEPARTMENT OF | [address] | [place] [address] | | | PATHOLOGY | [address] [...] | + + + + + | [facility] DEPARTMENT OF | [address] | [place] [address] | | | PATHOLOGY | [address] [...] | + + + + + | [facility] | [address] | [place] [address] | | | PATHOLOGY | [address] [...] DEPARTMENT OF | [address] | [place] [address] | | | PATHOLOGY | [address] [...] | + + + + + | [facility] DEPARTMENT OF | [address] | [place] [address] | | | PATHOLOGY | [address] [...] | + + + + + | [facility] | [address] [facility] | [place] [address] | | | PATHOLOGY | [address] [...] | + + + + + | [facility] | [address] | [place] [address] | | | PATHOLOGY | [address] [...] DEPARTMENT OF | [address] | [place] [address] | | | PATHOLOGY | [address] [...] | + + + + + | [facility] | [address] | [place] [address] | | | PATHOLOGY | [address] [...] | + + + + + | [facility] DEPARTMENT OF | [address] | [place] [address] | | | PATHOLOGY | [address] [...] | + + + + + | [facility] DEPARTMENT | [address] | [place] [address] | | | PATHOLOGY | [address] | | | + + + + + CHLORIDE, URINE (02/12/2012 12:41 PM PDT) + +-------+ + + + | Component | Value | Ref Range | Performed | Pathologist | | | | | At | Signature | + +-------+ + + + | CHLORIDE | 42 | mmol/L | [facility] | | | [...] | + + + + + | [facility] | [address] | [place] [address] | | | PATHOLOGY | [address] [...] | + + + + + | [facility] DEPARTMENT OF | [address] | [place] [address] | | | PATHOLOGY | [address] | | | + + + + + STEFANO GUTIERREZ ONLY (02/12/2012 12:41 PM PDT) + + [...] DEPARTMENT OF | [address] | [place] [address] | | | PATHOLOGY | [address] [...] | | | | Signed by: Mukul GRIFFIN | | | | [facility] [place] | [...] [facility] | [address] | [place], [place] | | | THERAPY | [address] | [address] | | + + + + + [...] | + + + + + | [facility] | [address] | [place] [address] | | | PATHOLOGY | [address] [...] | + + + + + | [facility] | [address] | [place] [address] | | | PATHOLOGY | [address] [...] | + + + + + | [facility] DEPARTMENT OF | [address] | [place] [address] | | | PATHOLOGY | [address] [...] DEPARTMENT OF | [address] | [place] [address] | | | PATHOLOGY | [address] [...] | + + + + + | [facility] DEPARTMENT | [address] | [place] [address] | | | PATHOLOGY | [address] [...] | + + + + + | [facility] | [address] | [place] [address] | | | PATHOLOGY | [address] [...] | + + + + + | [facility] | [address] | [place] [address] | | | PATHOLOGY | [address] [...] + | [facility] | [address] | [place], [place] | | | [facility] [place] | [address] | [address] | | | TESTS | | | [...] [facility] | [address] | [place], [place] | | | [facility] [facility] [place] | [facility] | [address] | | | TESTS | | | | + + + + + CAPILLARY BLOOD GLUCOSE, POC (02/11/2012 7:35 AM PDT) + +-------+ + + + | Component | Value | Ref Range | Performed | Pathologist | | | | | At | Signature | + +-------+ + + + | BLOOD | 76 | 60 - 99 mg/dL | [facility] - | | | GLUCOSE, | | [...] [facility] | [address] | [place], [place] | | | [facility] | [address] | [id number] | | | TESTS | | | [...] | + + + + + | [facility] DEPARTMENT | [address] | [place] [address] | | | PATHOLOGY | [address] [...] [facility] | [address] | [place], [place] | | | THERAPY | [address] | [address] | | + + + + + [...] + + | * Corrected 02/11/12 07:11: HILARIO COMMENTS, prev report: Slide | [facility] | | review pending. | DEPARTMENT OF | | | PATHOLOGY | + + + + + + + + | Performing | Address | City/State/Zipcode | Phone Number | | Organization | | | | + + + + + | [facility] | [address] | [place] [address] | | | PATHOLOGY | [address] [...] | + + + + + | [facility] DEPARTMENT OF | [address] [facility] | [place] [address] | | | PATHOLOGY | [address] [...] | + + + + + | [facility] [facility] | [address] | [place] [address] | | | PATHOLOGY | [address] [...] 07:11: HPANEL COMMENTS, prev report: Slide | [facility] | | review pending. | DEPARTMENT OF | | | PATHOLOGY | + + + + + + + + | Performing | Address | City/State/Zipcode | Phone Number | | Organization | | | | + + + + + | [facility] DEPARTMENT OF | [address] | [place] [address] | | | PATHOLOGY | [address] [...] | + + + + + | [facility] | [address] | [place] [address] | | | PATHOLOGY | [address] [...] | + + + + + | [facility] DEPARTMENT OF | [address] | [place] [address] | | | PATHOLOGY | [address] [...] | + + + + + | [facility] DEPARTMENT OF | [address] | [place] [address] | | | PATHOLOGY | [address] [...] | + + + + + | [facility] DEPARTMENT OF | [address] | [place] [address] | | | PATHOLOGY | [address] [...] | + + + + + | [facility] | [address] | [place] [address] | | | PATHOLOGY | [address] | | | + + + + + MAGNESIUM, PLASMA (02/11/2012 12:08 AM PDT) + +---------+ + + + | Component | Value | Ref Range | Performed | Pathologist | | | | | At | Signature | + +---------+ + + + | MAGNESIUM,P | 1.6 (L) | 1.8 - 2.5 mg/dL | [facility] | | | LASMA | | | [...] | + + + + + | [facility] DEPARTMENT OF | [address] | [place] [address] | | | PATHOLOGY | [address] [...] DEPARTMENT OF | [address] | [place] [address] | | | PATHOLOGY | [address] [...] + + | [facility] | [address] [facility] [address] | [place], [place] | | | [facility] [place] [facility] | [address] | [address] | | | TESTS | | | [...] | | | | | | Ipratropium Bath .5 | | | | | | [...] Nuñez, | | | | | | CHAIN SPLITTER | | | | + + + + + + + + | Specimen | + + | | + + + + + + + | Performing | Address | City/State/Zipcode | Phone Number | | Organization | | | | + + + + + | [facility] | [address] | [place], [place] | | | THERAPY | [address] | [address] | | + + + + + [...] [facility] | [address] | [place], [place] | | | [facility] | [facility] | [address] | | | TESTS | | | [...] | + + + + + | [facility] | [address] | [place] [address] | | | PATHOLOGY | [address] [...] | | | | | | by [employer], | | | | | | | | | | | | 500 | | | | | | [facility] | | | | | | [address] | | | | | | | | | | | | [email or web address], | | | | | | Marilyn [...] [facility] | [address] | [place], [place] | | | [facility] | | [address] | | + + + + + [...] | | | | | | by [employer], | | | | | | | | | | | | 500 | | | | | | Lianet Miller, [facility] | | | | | | [address] | | | | | | | | | | | | [email or web address], | | | | | | Marilyn Pak MD - | | | | | | Lab. Director | | | | + + + + + + + + | Specimen | + + | Urine - Urine | + + + + + + + | Performing | Address | City/State/[facility] | Phone Number | | Organization | | | | + + + + + | [facility] | [address] | [place], [place] | | | [facility] | | [address] | | + + + + + [...] | + + + + + | [facility] | [address] | [place] [address] | | | LAB-MICRO | | | [...] + + + | [facility] | [address] | [place] [address] | | | LAB-MICRO | | | [...] | + + + + + | [facility] | [address] | [place] [address] | | | LAB-MICRO | | | [...] RLB | | | | | | ([address] [facility]) | | | | | | [facility] | | | | | | [address] | | | | | | [address] | | | | | | [place] [address] | | | | + + + + + + + + | Specimen | + + | Sputum - Sputum | + + + + + + + | Performing | Address | City/State/Zipcode | Phone Number | | Organization | | | | + + + + + | [facility] | [address] | [place] [address] | | | LAB-MICRO | | | [...] + + + | [facility] | [address] | [place] [address] | | | LAB-MICRO | | | [...] | + + + + + | [facility] | [address] | [place] [address] | | | LAB-MICRO | | | [...] [facility] | [address] | [place] | | | THERAPY | [address] | [address] | | + + + + + [...] + + + | [facility] | [address] | [place] [address] | | | LAB-MICRO | | | [...] [facility] | [address] | [place], [place] | | | [facility] | [facility] | [address] | | | TESTS | | | | + + + + + RESPIRATORY VIRUS PANEL BY PCR (02/10/2012 2:00 PM PDT) + + + + + + | Component | Value | Ref Range | Performed | Pathologist | | | | | At | Signature | + + + + + + | RESPIRATORY | Nasal Wash | | [facility] | | | VIRUS | | | [...] | | | | | | [facility] | | | | | | Molecular [...] | | | Act of 1987. The [facility] | | | | | | Molecular Diagnostic | | | | | | Center is a | | | | | | fullylicensed and/or | | | | | | accredited clinical | | | | | | laboratory under CLIA, | | | | | | CAP, and theState of | | | | | | [place]. | | | | + + + + + + + + | Specimen | + + | Nasal - Nasal | + + + + + + + | Performing | Address | City/State/Zipcode | Phone Number | | Organization | | | | + + + + + | [facility] | [address] | [place] [address] | | | DIAGNOSTIC | [address] [...] | | | | | | Ipratropium Bath .5 | | | | | | [...] [facility] | [address] | [place], [place] | | | THERAPY | [address] | [address] | | + + + + + [...] [facility] | [address] | [place], [place] | | | THERAPY | [address] | [address] | | + + + + + [...] [facility] | [address] | [place], [place] | | | [facility] | [address] | [address] | | | TESTS | | | [...] + + | * Corrected 02/10/12 08:29: HILARIO COMMENTS, prev report: Slide | [facility] | | review pending. | DEPARTMENT OF | | | PATHOLOGY | + + + + + + + + | Performing | Address | City/State/Zipcode | Phone Number | | Organization | | | | + + + + + | [facility] | [address] | [place] [address] | | | PATHOLOGY | [address] [...] DEPARTMENT OF | [address] | [place] [address] | | | PATHOLOGY | [address] | | | + + + + + VANCOMYCIN, RANDOM (02/10/2012 4:45 AM PDT) + + + [...] + + + + + | [facility] | [address] | [place] [address] | | | PATHOLOGY | [address] [...] Corrected 02/10/12 08:29: RACHAELNEL COMMENTS, prev report: Gabriella | [facility] | | review pending. | DEPARTMENT OF | | | PATHOLOGY | + + + + + + + + | Performing | Address | City/State/Zipcode | Phone Number | | Organization | | | | + + + + + | [facility] | [address] | [place] [address] | | | PATHOLOGY | [address] | | | + + + + + PHOSPHORUS, PLASMA (02/10/2012 4:45 AM PDT) + +---------+ + + + | Component | Value | Ref Range | Performed | Pathologist | | | | | At | Signature | + +---------+ + + + | PHOSPHORUS, | 5.1 (H) | 2.4 - 4.7 mg/dL | [facility] | | | PLASMA | | | [...] | + + + + + | [facility] DEPARTMENT OF | [address] | [place] [address] | | | PATHOLOGY | [address] [...] | + + + + + | [facility] DEPARTMENT OF | [address] | [place] [address] | | | PATHOLOGY | [address] [...] | + + + + + | [facility] | [address] | [place] [address] | | | PATHOLOGY | [address] | | | + + + + + TRANSTHORACIC ECHOCARDIOGRAM, ADULT (02/10/2012 12:00 AM PDT) + + + | Narrative | Performed At | + + + | | | + + + + + | Transcriptions | + + | Jose M Orantes - 02/10/2012 4:47 PM PDT | + [...] + + | [facility] | [address] | [place], [place] | | | [facility] [facility] | [facility] | [address] | | | TESTS | | | [...] | | | | | signed / oMises Overton | | | | | | [...] | | + +---------+ + + | [facility] DEPARTMENT OF | | | | | [...] | + + + + + | [facility] | [address] | [place] [address] | | | PATHOLOGY | [address] [...] + | SPECIMEN | PCATH | | CHEYR | | | TYPE TOX | BLOOD [...] in the assay. | | | RLB (Digital Message Display [facility]) [facility] | | | [address] [place] [address] | | + + + + + + + + | Performing | Address | City/State/Zipcode | Phone Number | | Organization | | | | + + + + + | [facility] | [address] | [place] [address] | | | LABORATORY | | | [...] | | + +---------+ + + | [facility] DEPARTMENT OF | | | | | [...] + + + + | PRODUCT | [id number] | | [facility] | | | UNIT [...] + + + + | BLOOD | [id number] | | [facility] | | | PRODUCT [...] [facility] | [address] | [place] [address] | | | PATHOLOGY | [address] [...] + + + + | PRODUCT | [id number] | | [facility] | | | UNIT [...] + + + + | BLOOD | [id number] | | [facility] | | | PRODUCT [...] DEPARTMENT OF | [address] | [place] [address] | | | PATHOLOGY | [address] [...] | + + + + + | [facility] | [address] | [place] [address] | | | PATHOLOGY | [address] | | | + + + + + SUKHJINDER (KATLYN) BY PCR (02/09/2012 3:04 PM PDT) [...] + + | RESULTS PHONED TO LG RIZZO READ BACK DONE AT 1915 | [facility] | | | DEPARTMENT OF | | | PATHOLOGY | + + + + + + + + | Performing | Address | City/State/Zipcode | Phone Number | | Organization | | | | + + + + + | [facility] DEPARTMENT | [address] | [place] [address] | | | PATHOLOGY | [address] [...] | + + + + + | [facility] DEPARTMENT OF | [address] | [place] [address] | | | PATHOLOGY | [address] [...] [facility] DEPART[facility] | [address] | [place] [address] | | | PATHOLOGY | [address] [...] | + + + + + | [facility] DEPARTMENT | [address] | [place] [address] | | | PATHOLOGY | [address] | | | + + + + + CREATININE, URINE (02/09/2012 2:23 PM PDT) + +-------+ + + + | Component | Value | Ref Range | Performed | Pathologist | | | | | At | Signature | + +-------+ + + + | CREATININE | 24.15 | mg/dL | [facility] | | | [...] [facility] DEPARTMENT | [address] | [place] [address] | | | PATHOLOGY | [address] [...] | + + + + + | [facility] | [address] | [place] [address] | | | PATHOLOGY | [address] [...] | + + + + + | [facility] DEPARTMENT OF | [address] | [place] [address] | | | PATHOLOGY | [address] [...] DEPARTMENT OF | [address] | [place] [address] | | | PATHOLOGY | [address] [...] | | | | | | | <hn=[id number]....... Negative: | | | | | | [...] CHF. | | | | | | >um=009....... Highly | | | | | | consistent with CHF. | | | | | | Patients with BNP>pl=226 | | | | | | | [...] | | | | | | the mutual funds agent. | | | | | | Effective [...] | + + + + + | [facility] DEPARTMENT OF | [address] | [place] [address] | | | PATHOLOGY | [address] [...] | + + + + + | [facility] | [address] | [place] [address] | | | PATHOLOGY | [address] [...] | + + + + + | [facility] | [address] | [place] [address] | | | PATHOLOGY | [address] [...] + + + + + | [facility] | [address] | [place] [address] | | | PATHOLOGY | [address] [...] | + + + + + | [facility] | [address] | [place] [address] | | | PATHOLOGY | [address] | | | + + + + + CHOLESTEROL TOTAL, PLASMA (02/09/2012 2:03 PM PDT) + + + + + + | Component | Value | Ref Range | Performed | Pathologist | | | | | At | Signature | + + + + + + | CHOLESTEROL | 89Comment: | <200 mg/dL | [facility] | | [...] | + + + + + | [facility] DEPARTMENT | [address] | [place] [address] | | | PATHOLOGY | [address] [...] | + + + + + | [facility] | [address] | [place] [address] | | | PATHOLOGY | [address] [...] | + + + + + | [facility] DEPARTMENT OF | [address] | [place] [address] | | | PATHOLOGY | [address] [...] | + + + + + | [facility] DEPARTMENT OF | [address] | [place] [address] | | | PATHOLOGY | [address] | | | + + + + + PHOSPHORUS, PLASMA (02/09/2012 2:03 PM PDT) + +-------+ + + + | Component | Value | Ref Range | Performed | Pathologist | | | | | At | Signature | + +-------+ + + + | PHOSPHORUS, | 4.7 | 2.4 - 4.7 mg/dL | [facility] | | | PLASMA | | | [...] | + + + + + | [facility] DEPARTMENT | [address] | [place] [address] | | | PATHOLOGY | [address] [...] | + + + + + | [facility] | [address] | [place] [address] | | | PATHOLOGY | [address] [...] | + + + + + | [facility] | [address] | [place] [address] | | | PATHOLOGY | [address] | | | + + + + + OUTSIDE RADIOLOGY REPORTS (02/09/2012 12:00 AM PDT) + + + | Narrative | Performed At | + + + | | | + + + + + | Transcriptions | + + | Jose M Orantes - 02/17/2012 9:01 AM PDT | + + OUTSIDE RADIOLOGY REPORTS (02/09/2012 12:00 AM PDT) + + + | Narrative | Performed At | + + + | | | + + + + + | Transcriptions | + + | Jose M Orantes - 02/17/2012 9:01 AM PDT | + [...] | | | | First dose on 02/10/12 at | | AM PDT | | [...] | +---+---+ + +-------+ +---------+---+---+ | albuterol (aknicolas RICHARDSON, | Given | 02/15/20 | 2 puffs [...] | | | | DUO-NEB) nebulizer solution 3 mL | | 12 8:50 | | | | | 3 mL, inhalation, EVERY 6 HOURS | | PM PDT | | | | | NEEDED, Starting Wed02/10/12 | | | | | | | at 0927, Until Wed02/10/12 at | | | | | | | 2052, dyspnea/SOB | | | | | | + +-------+ +------+---+---+ +---+---+ | | | +---+---+ + +-------+ +------+---+---+ | albuterol-ipratropium (aka | Given | 02/10/20 | 3 mL | | | | DUO-NEB) nebulizer solution 1 | | 12 8:23 | | | | | dose, Starting 02/10/12 at | | AM PDT | | | | | 0817, Until 02/10/12 at 0823 | | | | | | + +-------+ +------+---+---+ +---+---+ | | | +---+---+ + +-------+ +-------+---+---+ | amLODIPine (aka NORVASC) tablet | Given | 02/21/20 | 10 [...] 2 g | mL/hr | | | (jahxis minibag+) 2 g 2 g, | | [...] | | | | | modification) on 02/15/12 at | | | | | | [...] | | | 02/09/12 at 1531, Until [place] | | AM PDT | | | [...] intravenous, ONCE, 1 dose, Tue | | 12 3:16 | | | [...] | oseltamivir (aka TAMIFLU) | Given | 02/14/20 | 75 mg | | | | [...] | | 12 HOURS, First dose on Tue | | AM PDT | | [...]
--- OUTSIDE RECORDS SUMMARY | ~2019-09-11 | XMS | Encounter Summary ---
Demographics + + + | Address | [address] | | | [place] [address] | + + + | Home Phone | | + + + | Preferred Language | Unknown | + + + | Marital Status | | + + + | Taoist Affiliation | Unknown | + + + | Race | Unknown | + + + | Ethnic Group | Unknown | + + + Author + + + | Author | [facility] | | | and Hermannana | + + + | Organization | [facility] | | | and Hermannana | [...] [place], [place] | | | | | [address] | | + + + + + | Greta [address]ebaneau | ECON | [place], [place] | | | | | [address] | | + + + + + Care Team Providers + +------+ + | Care Front Tender Name | Role | Phone | [...] + + | 08/20/ | Refill | [facility] | Thelma, | Medication Refill | | 2013 | | MED CTR CHEMO | Antonio Infante MD [address] | | | | INF[address] [place] | | | | | [place], | [place] [address] | | | | | [place] [address] | [phone] | | | | | [phone] | | | +--------+--------+ + + + [...]
--- OUTSIDE RECORDS SUMMARY | ~2019-09-11 | XMS | Encounter Summary ---
Demographics + + + | Address | [address] | | | [place] [address] | + + + | Home Phone | | + + + | Preferred Language | Unknown | + + + | Marital Status | | + + + | Hoahaoism Affiliation | Unknown | + + + | Race | Unknown | + + + | Ethnic Group | Unknown | + + + Author + + + | Author | [facility] | | | and Hermannana | + + + | Organization | [facility] | | | and Hermannana [...] [place], [place] | | | | | [address] | | + + + + + | Greta [place]eb[place] | ECON | [place], [place] | | | | | [address] | | + + + + + Care Team Providers + +------+ + | Care Glassware Verifier Name | Role | Phone | [...] + + | 09/18/ | Telephone | [facility] | Thelma, | Medication Refill | | 2013 | | [facility] | Antonio Infante MD [address] | | | | | [facility] [address] | [facility] | | | | | [address] [facility] | [place] [address] | | | | | [place] [address] | [phone] | | | | | [phone] | | | +--------+ + + + [...]
--- OUTSIDE RECORDS SUMMARY | ~2019-09-11 | XMS | Encounter Summary ---
Demographics + + + | Address | [address] | | | [place] [address] | + + + | Home Phone [...] + | Author | [facility] | | | and Hermannana | + + + | Organization | [facility] | | | and [...] [place], [place] | | | | | [address] | | + + + + + | Greta Bronche[place] | ECON | [place], [place] | | | | | [address] | | + + + + + Care Team Providers + +------+ + | Care Traveler Changer Name | Role | Phone | + +------+ + PCP | Unavailable | + +------+ + Encounter Details +--------+ + + + + | Date | Type | Department | Care Team | Description | +--------+ + + + + | 07/14/ | Hospital | [facility] | Thelma, | | | 2011 | Encounter | MED CTR XRAY [address] | Antonio Infante MD [address] | | | | | [place] | [address] [place] | | | | | [place] [address] | [place] [address] | | | | | [phone] | [phone] | | | | | | | [...] | 03/25/20 | | | (VITAMIN D3) 01734 | mouth Once a week. | | | 12 | 4 | | UNITS CAPS | | | | | | + + + +---------+ + + | Coenzyme O84-Ohvj | one by mouth daily | | [...] Performed At | + + + | [facility] | [facility] | | [address] [facility] | [facility] | | ENHANCED CT CHEST AND ABDOMEN, [...] Transcribed | | | Date/Time: 07/14/2012 18:01 Food Services Manager: | | | <Electronically Signed by Moises Rodas MD> 07/14/12 2259 | | + + + + + | Procedure Note | + + | Germain, Rad Conversion - 12/08/2013 6:00 PM [facility] | | Diagnostic Imaging Department | | [address] [facility] | | | | | | [...] is evident. Previously described | | conglomerate shnai masses in the mesentery and retroperitoneum have [...] | Transcribed Date/Time: 07/14/2012 18:01 | | Food Services Manager: | | <Electronically Signed by Moises Rodas [...]
--- OUTSIDE RECORDS SUMMARY | ~2019-09-11 | XMS | Encounter Summary ---
Demographics + + + | Address | [address] | | | [place] [address] | + + + | Home Phone [...] | Author | [facility] | | | and Hermannana | + + + | Organization | [facility] | | | and Hermannana [...] [place], [place] | | | | | [address] | | + + + + + | Greta Broncheau | ECON | [place], [place] | | | | | [address] | | + + + + + Care Team Providers + +------+ + | Care Tow Truck Dispatcher Name | Role | Phone | + +------+ + PCP | Unavailable | + +------+ + Encounter Details +--------+ + + + + | Date | Type | Department | Care Team | Description | +--------+ + + + + | 01/13/ | Hospital | [facility] | Thelma, | | | 2011 - | Encounter | MED CTR MED ONC | Antonio Infante MD [address] | | | | [address] [place] | [address] [place] | | | 01/18/ | | [place] [address] | [place] [address] | | | 2011 | | [phone] | [phone] | | | | | | | [...] HOSPITAL COURSE: 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 ABDOMEN: Soft, nontender, nondistended. No hepatomegaly. No [...] 6 hours as needed for pain. 9. Porter 5/325 mg tablet, 1 to 2 tablets [...] BY: Antonio Renee MD Oncology JOB #: [id number] EXT JOB #:[id number] <Electronicall y Signed by Antonio Renee MD> [...] + | [facility] | [address] | [place], [place] | [phone] | | [facility] | | [address] | | | - LABORATORY | | | | + + + + + | [facility] | [address] | [place], [place] | | | [facility] | | [address] | | | - LABORATORY | | [...] + | [facility] | [address] | [place] | [phone] | | [facility] | | [address] | | | - LABORATORY | | | | + + + + + | [facility] | [address] | [place] | | | [facility] | | [address] | | | - LABORATORY | | [...] + | [facility] | [address] | [place], [place] | [phone] | | [facility] | | [address] | | | - LABORATORY | | | | + + + + + | [facility] | [address] | [place], [place] | | | [facility] | | [address] | | | - LABORATORY | | [...] + | [facility] | [address] | [place] | [phone] | | [facility] | | [address] | | | - LABORATORY | | | | + + + + + | [facility] | [address] | [place] | | | [facility] | | [address] | | | - LABORATORY | | [...] + | [facility] | [address] | [place] | [phone] | | [facility] | | [address] | | | - LABORATORY | | | | + + + + + | [facility] | [address] | [place] | | | [facility] | | [address] | | | - LABORATORY | | [...] + | [facility] | [address] | [place], [place] | [phone] | | [facility] | | [address] | | | - LABORATORY | | | | + + + + + | [facility] | [address] | [place] | | | [facility] | | [address] | | | - LABORATORY | | [...] [address] | [place] | [phone] | | [facility] | | [address] | | | - LABORATORY | | [...] + + + | UNIT # | [id number] | | [facility] | | | | [...] [address] | [place] | [phone] | | [facility] | | [address] | | | - LABORATORY | | | | + + + + + | [facility] | | | | | [facility] | | | | | [...] + + + | UNIT # | [id number] | | [facility] | | | | [...] [address] | [place] | [phone] | | [facility] | | [address] | | | - LABORATORY | | | | + + + + + | [facility] | | | | | [facility] | | | | | [...] [address] | [place] | [phone] | | [facility] | | [address] | | | - LABORATORY | | | | + + + + + | [facility] | [address] | [place] | | | [facility] | | [address] | | | - LABORATORY | | [...] + | [facility] | [address] | [place] | [phone] | | [facility] | | [address] | | | - LABORATORY | | | | + + + + + | [facility] | [address] | [place] | | | [facility] | | [address] | | | - LABORATORY | | [...] | | Total | | | [facility] | | [address] | [place] | [phone] | | [facility] | | [address] | | | - LABORATORY | | | | + + + + + | [facility] | [address] | [place] | | | [facility] | | [address] | | | - LABORATORY | | [...] + | [facility] | [address] | [place] | [phone] | | [facility] | | [address] | | | - LABORATORY | | | | + + + + + | [facility] | [address] | [place], [place] | | | [facility] | | [address] | | | - LABORATORY | | | | + + + + + FL Lumbar Puncture (01/14/2012 10:38 AM PDT) + + | Specimen | + + | | + + + + + | Narrative | Performed At | + + + | [facility] Diagnostic Imaging Department | [facility] | | [address] [facility] | [facility] | | FLUOROSCOPIC GUIDED LUMBAR | [...] | | | Transcribed Date/Time: 01/14/2012 15:40 Marketing Communications Leader: | | | <Electronically Signed by Jorge Luis Farias MD> 01/14/121957 | | + + + + + | Procedure Note | + + | Philip Groves Conversion - 12/08/2013 4:56 PM [facility] | | Diagnostic Imaging Department [address] [place] [address] | | FLUOROSCOPIC GUIDED LUMBAR PUNCTURE FOR [...] 14:49 | |Transcribed Date/Time: 01/14/2012 15:40 | |Marketing Communications Leader: | |<Electronically Signed by Jorge Luis Farias [...]
--- OUTSIDE RECORDS SUMMARY | ~2019-09-11 | XMS | Encounter Summary ---
Demographics + + + | Address | [address] | | | [place] [address] | + + + | Home Phone | | + + + | Preferred Language | Unknown | + + + | Marital Status | | + + + | Latter Day Affiliation | Unknown | + + + | Race | Unknown | + + + | Ethnic Group | Unknown | + + + Author + + + | Author | [facility] | | | and Hermannana | + + + | Organization | [facility] | | | and Hermannana | [...] [place], [place] | | | | | [address] | | + + + + + | Greta Broncheau | ECON | [place], [place] | | | | | [address] | | + + + + + Care Team Providers + +------+ + | Care Trade Mark Examiner Name | Role | Phone | + +------+ + PCP | Unavailable | + +------+ + Encounter Details +--------+ + + + + | Date | Type | Department | Care Team | Description | +--------+ + + + + | 04/28/ | Hospital | [facility] | Thelma, | | | 2011 - | Encounter | MED CTR CANCER | Antonio Infante MD [address] | | | | [place] [address] | [address] | | | 04/30/ | | [place], [place] | [place] [address] | | | 2011 | | [address] | [phone] | | | | | [phone] | | | +--------+ + + + [...] Frida Christian is a 51-year-old woman from [place], [place] with Burkitt l ymphoma, w ho was admitted to [facility] in [facility] on 012, for cycle #3b [...] BY: Antonio Renee MD Oncology JOB #: [id number] EXT JOB #:[id number] <Electronicall y Signed by Antonio Renee MD> [...] | 03/25/20 | | | (VITAMIN D3) [id number] | mouth Once a week. | | [...] Frida Christian is a 51-year-old woman from [place], [place], with Burkitt's lymphoma. ACTIVE DIAGNOSES: 1. Presentation in August 2001, with intractable searing abdominal pain. Symptoms progre ssed and on October 05, 2011, she underwent advanced imaging that demonstrated diffuse malignant lymphadenopathy throughout the retroperitoneum. 2. 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 Ignacio-Palmer virus was positive by in situ hybridization, KI 67 f raction was greater than 90%. 3. Initiation of Rituxan/Hyper-CVAD chemotherapy at [facility] on November 15, 2011. CHIEF COMPLAINT: Frida [...] methotrexate at that time. cc: CHOCO Luis, [facility] <Electronically Signed by Antonio Renee MD> 05/06/12 0557 Antonio Renee MD - 04/09/2012 3:34 AM PDTPROGRESS NOTE 04/26/2012 IDENTIFYING STATEMENT: Frida Christian is a 51-year-old woman from [place], [place], with Burkitt's lymphoma. ACTIVE DIAGNOSES: 1. Presentation in August 2001, with intractable searing abdominal pain. Symptoms progre ssed and on October 05, 2011, she underwent advanced imaging that demonstrated diffuse malignant lymphadenopathy throughout the retroperitoneum. 2. 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 Ignacio-Palmer virus was positive by in situ hybridization, KI 67 f raction was greater than 90%. 3. Initiation of Rituxan/Hyper-CVAD chemotherapy at [facility] on November 15, 2011. CHIEF COMPLAINT: Frida [...] Frida Christian is a 51-year-old woman from [place], [place], with Burkitt's lymphoma. ACTIVE DIAGNOSES: 1. Presentation in August 2001, with intractable searing abdominal pain. Symptoms progre ssed and on October 05, 2011, she underwent advanced imaging that demonstrated diffuse malignant lymphadenopathy throughout the retroperitoneum. 2. 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 Ignacio-Palmer virus was positive by in situ hybridization, KI 67 f raction was greater than 90%. 3. Initiation of Rituxan/Hyper-CVAD chemotherapy at [facility] on November 15, 2011. CHIEF COMPLAINT: Frida [...] on May 02, 2012. cc: CHOCO Luis, [facility] <Electronically Signed by Antonio Renee MD> 04/25/12 [...] | | | | | | [facility] | | [...] [address] | [place] | [phone] | | [facility] | | [address] | | | - LABORATORY | | | | + + + + + | [facility] | [address] | [place] | | | [facility] | | [address] | | | - LABORATORY | | [...] ST. | [address] | [place], [place] | [phone] | | [facility] | | [address] | | | - LABORATORY | | | | + + + + + | [facility] | [address] | [place] | | | [facility] | | [address] | | | - LABORATORY | | [...] | | | | | | [facility] | | [...] + | [facility] | [address] | [place] | [phone] | | [facility] | | [address] | | | - LABORATORY | | | | + + + + + | [facility] | [address] | [place], [place] | | | [facility] | | [address] | | | - LABORATORY | | [...] + | [facility] | [address] | [place] | [phone] | | [facility] | | [address] | | | - LABORATORY | | | | + + + + + | [facility] | [address] | [place] | | | [facility] | | [address] | | | - LABORATORY | | [...] | + + + + + | [facility] | [address] | [place], [place] | [phone] | | [facility] | | [address] | | | - LABORATORY | | | | + + + + + | [facility] | [address] | [place], [place] | | | [facility] | | [address] | | | - LABORATORY | | | | + + + + + ABO Rh (04/26/2012 10:24 AM PDT) + + | Specimen | + + | | + + + + + + + | Performing | Address | City/State/Zipcode | Phone Number | | Organization | | | | + + + + + | [facility] | [address] | [place] | [phone] | | [facility] | | [address] | | | - LABORATORY | | [...] + | [facility] | [address] | [place], [place] | [phone] | | [facility] | | [address] | | | - LABORATORY | | | | + + + + + | [facility] | [address] | [place], [place] | | | [facility] | | [address] | | | - LABORATORY | | [...] + | [facility] | [address] | [place] | [phone] | | [facility] | | [address] | | | - LABORATORY | | | | + + + + + | [facility] | [address] | [place], [place] | | | [facility] | | [address] | | | - LABORATORY | | [...] [facility] | | | | | | [facility] | | | | | | [...] | | Bodies | | | [facility] | | [...] + | [facility] | [address] | [place] | [phone] | | [facility] | | [address] | | | - LABORATORY | | | | + + + + + | [facility] | [address] | [place] | | | [facility] | | [address] | | | - LABORATORY | | [...] + + + | UNIT # | [id number] | | [facility] | | | | [...] [address] | [place] | [phone] | | [facility] | | [address] | | | - LABORATORY | | | | + + + + + | [facility] | | | | | ST. [...] + + + | UNIT # | [id number] | | [facility] | | | | [...] | | | | | | [facility] | | [...] ST. | [address] | [place], [place] | [phone] | | [facility] | | [address] | | | - LABORATORY | | [...] + + + | UNIT # | [id number] | | [facility] | | | | [...] [address] | [place] | [phone] | | [facility] | | [address] | | | - LABORATORY | | [...] | 0.65 | 0.60 - 1.30 | [facility] | | | | | mg/dL [...] + | [facility] | [address] | [place] | [phone] | | [facility] | | [address] | | | - LABORATORY | | | | + + + + + | [facility] | [address] | [place] | | | [facility] | | [address] | | | - LABORATORY | | [...] + | [facility] | [address] | [place] | [phone] | | [facility] | | [address] | | | - LABORATORY | | | | + + + + + | [facility] | [address] | [place] | | | [facility] | | [address] | | | - LABORATORY | | [...] [facility] | | | | | | [facility] | | | | | | MEDICAL | | | | | | CENTER - | | | | | | LABORATORY | | + + + + + + | RBC | 2.64 (L) | 3.70 - 5.20 | [facility] | | | | | M/uL | [facility] | | | | | | MEDICAL [...] [address] | [place] | [phone] | | [facility] | | [address] | | | - LABORATORY | | | | + + + + + | [facility] | [address] | [place] | | | [facility] | | [address] | | | - LABORATORY | | [...] 17 | 7 - 18 mg/dL | [facility] | | | | | | [facility] | | | | | | MEDICAL | | | | | | CENTER - | | | | | | LABORATORY | | + + + + + + | Creatinine | 0.79 | 0.60 - 1.30 | [facility] | | | | | mg/dL | [facility] | | | | | | MEDICAL | | | | | | CENTER - | | | | | | LABORATORY | | + + + + + + | Estimated | >60Comment: For | >60 mL/min/A | [facility] | | | GFR | -Americans, | [...] | ine Ratio | | | [facility] | | [...] + | [facility] | [address] | [place] | [phone] | | [facility] | | [address] | | | - LABORATORY | | | | + + + + + | [facility] | [address] | [place], [place] | | | [facility] | | [address] | | | - LABORATORY | | [...] + | [facility] | [address] | [place] | [phone] | | [facility] | | [address] | | | - LABORATORY | | | | + + + + + | [facility] | [address] | [place] | | | [facility] | | [address] | | | - LABORATORY | | [...] [address] | [place] | [phone] | | [facility] | | [address] | | | - LABORATORY | | | | + + + + + | [facility] | [address] | [place] | | | [facility] | | [address] | | | - LABORATORY | | | | + + + + + documented in this encounter Visit Diagnoses Not on filedocumented in this encounter"
--- OUTSIDE RECORDS SUMMARY | ~2019-09-11 | XMS | Encounter Summary ---
Demographics + + + | Address | [address] | | | [place] [address] | + + + | Home Phone | | + + + | Preferred Language | Unknown | + + + | Marital Status | | + + + | Religion Affiliation | Unknown | + + + | Race | Unknown | + + + | Ethnic Group | Unknown | + + + Author + + + | Author | [facility] | | | and Hermannana | + + + | Organization | [facility] | | | and Hermannana [...] [place], [place] | | | | | [address] | | + + + + + | Greta Broncheau | ECON | [place], [place] | | | | | [address] | | + + + + + Care Team Providers + +------+ + | Care Banquet Chef Name | Role | Phone | + +------+ + | Becky Jennings | PCP | | + +------+ + Encounter Details +--------+ + + + + | Date | Type | Department | Care Team | Description | +--------+ + + + + | 03/02/ | Orders Only | [facility] | Thelma, | BURKITT'S LYMPHOMA | | 2014 | | MED CTR MEDICAL | Antonio Infante MD [address] | (Primary Dx) | | | | [facility] [address] | [address] [place] | | | | | [address] [place] | [place] [address] | | | | | [place] [address] | [phone] | | | | | [phone] | | | +--------+ + + + [...] on filedocumented as of this encounter Results Lactate Dehydrogenase (03/15/2014 8:53 AM PDT) + +---------+ + + + | Component | Value | Ref Range | Performed | Pathologist | | | | | At | Signature | + +---------+ + + + | LDH TOTAL | 209 (H) | 91 - 180 U/L | [facility] | | | | [address] | [place] | [phone] | | [facility] | | [address] | | | - LABORATORY | | | | + + + + + | [facility] | [address] | [place] | | | [facility] | | [address] | | | - LABORATORY | | [...] 12 | 7 - 18 mg/dL | [facility] | | | | | | [facility] | | | | | | MEDICAL | | | | | | CENTER - | | | | | | LABORATORY | | + + + + + + | Creatinine | 0.60 | 0.60 - 1.30 | [facility] | | | | | mg/dL | [facility] | | | | | | MEDICAL | | | | | | CENTER - | | | | | | LABORATORY | | + + + + + + | eGFR if not | >60Comment: GLOMERULAR | >=60 | [facility] | | | | FILTRATION | mL/min/1.73m2 | [facility] | | | SPANISH | RATE,ESTIMATED | | MEDICAL | | | | mL/min/1.43i6Anuq than | | CENTER - | | [...] | | Total | | | [facility] | | [...] + | [facility] | [address] | [place], [place] | [phone] | | [facility] | | [address] | | | - LABORATORY | | | | + + + + + | [facility] | [address] | [place], [place] | | | [facility] | | [address] | | | - LABORATORY | | [...] [address] | [place] | [phone] | | [facility] | | [address] | | | - LABORATORY | | | | + + + + + | [facility] | [address] | [place], [place] | | | [facility] | | [address] | | | - LABORATORY | | | | + + + + + documented in this encounter Visit Diagnoses + + | Diagnosis | + + | BURKITT'S LYMPHOMA - Primary Burkitt's tumor or lymphoma, unspecified site, | | extranodal and solid organ sites | + + documented in this encounter"
--- OUTSIDE RECORDS SUMMARY | ~2019-09-11 | XMS | Encounter Summary ---
Demographics + + + | Address | [address] | | | [place] [address] | + + + | Home Phone | | + + + | Preferred Language | Unknown | + + + | Marital Status | | + + + | Catholic Affiliation | Unknown | + + + | Race | Unknown | + + + | Ethnic Group | Unknown | + + + Author + + + | Author | [facility] | | | and Hermannana | + + + | Organization | [facility] | | | and [...] [place], [place] | | | | | [address] | | + + + + + | Grtea [place] | ECON | [place], [place] | | | | | [address] | | + + + + + Care Team Providers + +------+ + | Care Spouter Name | Role | Phone | + +------+ + PCP | Unavailable | + +------+ + Encounter Details +--------+ + + + + | Date | Type | Department | Care Team | Description | +--------+ + + + + | 12/14/ | Hospital | [facility] | Thelma, | | | 2011 - | Encounter | MED CTR MEDICAL | Antonio Infante MD [address] | | | | | [address] [place] | [address] [place] | | | 12/15/ | | [place] [address] | [place] [address] | | | 2011 | | [phone] | [phone] | | | | | | | [...] Frida Christian is a 51-year-old woman from [place], [place] with Burkitt's lymphoma, who was admitted to [facility] in [facility] for blood product support, cycle 1B, day [...] BY: Antonio Renee MD Oncology JOB #: [id number] EXT JOB #:[id number] cc: Dylan Martinez MD, [facility] <Electronically Signed by Adams Renee MD> 12/22/11 1312 documented in this encounter Plan of Treatment [...] + + + + | WBC | 2.3 (LL) | 4.0 - 11.0 K/uL | [facility] | | | | | | [facility] | | | | | | MEDICAL | | | | | | CENTER - | | | | | | LABORATORY | | + + + + + + | RBC | 2.42 (L) | 3.70 - 5.20 [...] | | | | | @0633 by ARNSWI @ * | | | [...] MEDICAL | | | | | | [place] - | | | | | | [...] + + | SUSPECTED | 1 (H)Comment: Imm. [address] 2 | | [facility] | | | PROBLEM IS: | | | [facility] | | | | | | MEDICAL | | | | | | CENTER - | | | | | | LABORATORY | | + + + + + + | Total | 50 | | [facility] | | [...] + | [facility] | [address] | [place] | [phone] | | [facility] | | [address] | | | - LABORATORY | | | | + + + + + | [facility] | [address] | [place] | | | [facility] | | [address] | | | - LABORATORY | | [...] + | [facility] | [address] | [place] | [phone] | | [facility] | | [address] | | | - LABORATORY | | | | + + + + + | [facility] | [address] | [place] | | | [facility] | | [address] | | | - LABORATORY | | [...] | | | Screen | | | . [facility] | | | | | | MEDICAL [...] + | [facility] | [address] | [place] | [phone] | | [facility] | | [address] | | | - LABORATORY | | | | + + + + + | [facility] | [address] | [place] | | | [facility] | | [address] | | | - LABORATORY | | [...] [address] | [place] | [phone] | | [facility] | | [address] | | | - LABORATORY | | [...] + + + | UNIT # | [id number] | | [facility] | | | | [...] + | [facility] | [address] | [place] | [phone] | | [facility] | | [address] | | | - LABORATORY | | | | + + + + + | [facility] | | | | | [facility] | | | | | [...] + + + | UNIT # | [id number] | | [facility] | | | | [...] [address] | [place] | [phone] | | [facility] | | [address] | | | - LABORATORY | | | | + + + + + | [facility] | | | | | [facility] | | | | | [...] | | Code | | | [facility] | | | | | | MEDICAL | | | | | | CENTER - | | | | | | LABORATORY | | + + + + + + | UNIT # | [id number] | | [facility] | | | | | | [facility] | | | | | | [...] + | [facility] | [address] | [place] | [phone] | | [facility] | | [address] | | | - LABORATORY | | | | + + + + + | [facility] | | | | | [facility] | | | | | [...] + + + | UNIT # | [id number] | | [facility] | | | | [...] [address] | [place] | [phone] | | [facility] | | [id number] | | | - LABORATORY | | | | + + + + + | [facility] | | | | | [facility] | | | | | - LABORATORY | | | | + + + + + Product: Platelet Pheresis (12/14/2011 12:19 PM PST) + + + + + + | Component | Value | Ref Range | Performed | Pathologist | | | | | At | Signature | + + + + + + | Product | PHERESIS | | [facility] | | | Code | PLATELETS-IRRADIATED | | [facility] | | [facility] - | | | | | | LABORATORY | | + + + + + + | UNIT # | [id number] | | [facility] | | | | [...] [address] | [place] | [phone] | | [facility] | | [address] | | | - LABORATORY | | | | + + + + + | [facility] | | | | | [facility] | | | | | - LABORATORY | | | | + + + + + documented in this encounter Visit Diagnoses Not on filedocumented in this encounter"
--- OUTSIDE RECORDS SUMMARY | ~2019-09-11 | XMS | Encounter Summary ---
Demographics + + + | Address | [address] | | | [place] [address] | + + + | Home Phone | | + + + | Preferred Language | Unknown | + + + | Marital Status | | + + + | Jain Affiliation | Unknown | + + + | Race | Unknown | + + + | Ethnic Group | Unknown | + + + Author + + + | Author | [facility] | | | and Hermannana | + + + | Organization | [facility] | | | and [...] [place], [place] | | | | | [address] | | + + + + + | Greta Broncheau | ECON | [place], [place] | | | | | [address] | | + + + + + Care Team Providers + +------+ + | [employer] Controls Engineer Name | Role | Phone | + +------+ + PCP | Unavailable | + +------+ + Encounter Details +--------+ + + + + | Date | Type | Department | Care Team | Description | +--------+ + + + + | 12/24/ | Hospital | [facility] | [place], | | | 2011 - | Encounter | [facility] | Antonio Infante MD [address] | | | | [place] [address] | [place] | | | / | | [place], [place] | [place] [address] | | | 2011 | | [address] | [phone] | | | | | [phone] | | | +--------+ + + + [...] Frida Christian is a 51-year-old woman from [place], [place], with Burkitt's lymphoma. ACTIVE DIAGNOSES: 1. Presentation in August 2001, with intractable searing abdominal pain. Symptoms prog ressed and on October 05, 2011, she underwent advanced imaging that demonstrated diffuse ma lignant lymphadenopathy throughout the retroperitoneum. 2. Laparoscopic lymph node biops y on November 10, 2011, at [facility], demonstrated a high grade B cell lymphoma, consistent with Burkitt's lymphoma, positive for BCL6, CD10, CD19, CD20, CD22, and kappa light chains. 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 3. Initiation of Rituxan/Hyper-CVAD chemotherapy at [facility] on November 15, 2011. CHIEF COMPLAINT: Frida is referred to me by Dr. Dylan Wheatley of [facility], cycle #1b, day #6 of Rituxan/H yper-CVAD [...] PSYCHOSICAL HISTORY:She lives alone and independently in [place], [place]. HABITS: Tobacco - positive for tobacco [...] her treatment plan today. She will return [facility] on December 24, 2011, for cycle #2a, of Rituxan/Hyper-CVAD chemotherapy, along wit h prophylactic intrathecal methotrexate. PROCEDURE:She received 6 mg of subcutaneous Neulasta without adverse effects. CC: [facility] <Electronically Signed by Antonio Renee MD> 12/14/11 9123 documented in this encounter Plan of Treatment [...] [address] | [place] | [phone] | | [facility] | | [address] | | | - LABORATORY | | | | + + + + + | [address] | [address] | [place] | | | [facility] | | [address] | | | - LABORATORY | | [...] + | [facility] | [address] | [place], [place] | [phone] | | [facility] | | [address] | | | - LABORATORY | | | | + + + + + | [facility] | [address] | [place], [place] | | | [facility] | | [address] | | | - LABORATORY | | [...] | | | | | | [facility] | | [...] + | [facility] | [address] | [place], [place] | [phone] | | [facility] | | [address] | | | - LABORATORY | | | | + + + + + | [facility] | [address] | [place], [place] | | | [facility] | | [address] | | | - LABORATORY | | [...] [address] | [place] | [phone] | | [facility] | | [address] | | | - LABORATORY | | | | + + + + + | [facility] [facility] | [address] | [place] | | | [facility] | | [address] | | | - LABORATORY | | [...] + | [facility] | [address] | [place], [place] | [phone] | | [facility] | | [address] | | | - LABORATORY | | | | + + + + + | [facility] [facility] | [address] | [place], [place] | | | [facility] | | [address] | | | - LABORATORY | | [...] | Performing | Address | [facility] | Phone Number | | Organization | | | | + + + + + | [facility] | [address] | [place], [place] | [phone] | | [facility] | | [address] | | | - LABORATORY | | | | + + + + + | [facility] | [address] | [place], [place] | | | [facility] | | [address] | | | - LABORATORY | | | | + + + + + documented in this encounter Visit Diagnoses Not on filedocumented in this encounter"
--- OUTSIDE RECORDS SUMMARY | ~2019-09-11 | XMS | Encounter Summary ---
Demographics + + + | Address | [address] | | | [place] [address] | + + + | Home Phone | | + + + | Preferred Language | Unknown | + + + | Marital Status | Single | + + + | Amish Affiliation | NON | + + + | Race | or | + + + | Ethnic Group | Not or | + + + Author + + + | Author | [facility] | + + + | Organization | [facility] | + + + | Address | Unknown | + + + | Phone | Unavailable | + + + Support + + + + + | Name | Relationship | Address | Phone | + + + + + | Yue Fischer | ECON | [address] | | | | | [place] | | | | | [address] | | + + + + + | Greta Broncheau | ECON | Unknown | | + + + + + Care Team Providers + +------+ + | Care Plush Dresser Name | Role | Phone | + +------+ + | Becyk Jennings | PCP | | + +------+ [...] | | 2011 | | Oncology at [facility] | [address] | non-Hodgkin's type | | | | [address] | [place], | | | | | Mailcode: [id number] | [place] [address] | | | | | [facility] | [phone] | | | | | and Healing, | | | | | | [facility] | | | | | | [place], [place] | | | | | | [address] | | | | | | [phone] | | | +--------+ + + + [...] | + +--------+ + + + | [facility] BONE MARROW BX, | Routin | 11/13/2011 | Burkitt's lymphoma | | | NEEDLE/TROCAR | e | 10:12 PM | (HCC) | | | | | PST | | | + +--------+ + + + | [facility] BONE MARROW; | Routin | 11/13/2011 | [...]
--- OUTSIDE RECORDS SUMMARY | ~2019-09-11 | XMS | Encounter Summary ---
Demographics + + + | Address | [address] | | | [place] [address] | + + + | Home Phone | | + + + | Preferred Language | Unknown | + + + | Marital Status | | + + + | Zoroastrianism Affiliation | Unknown | + + + | Race | Unknown | + + + | Ethnic Group | Unknown | + + + Author + + + | Author | [facility] | | | and Hermannana | + + + | Organization | [facility] | | | and Hermannana [...] [place], [place] | | | | | [address] | | + + + + + | Greta Broncheau | ECON | [place], [place] | | | | | [address] | | + + + + + Care Team Providers + +------+ + | Care Machinist Brake Name | Role | Phone | + +------+ + PCP | Unavailable | + +------+ + Encounter Details +--------+ + + + + | Date | Type | Department | Care Team | Description | +--------+ + + + + | 01/27/ | Hospital | [facility] | [place], | | | 2011 - | Encounter | MED CTR MED ONC | Antonio Infante MD [address] | | | | [address] [place] | [address] [place] | | | 02/08/ | | [place] [address] | [place] [address] | | | 2011 | | [phone] | [phone] | | | | | | | [...] Dr. Leander Last [facility] c onsulted on 08/10/2012 and agreed to accept the patient in transfer. 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 She is now being transferred to [facility] for critical care managem ent which may [...] furosemide. Frida will be transferred to the [facility] fo r acute dialysis if necessary to [...] suppo rt; also, not available currently at [facility] and, hence, if necessary, thi s will be performed also at [facility] after transfer. The case was discussed with Dr. Leander Last of the Department of Hematological Malignancie s, who is covering for the patient's primary oncologist, Dr. Dylan Martinez, and agrees to accept the patien t in transfer to the 14-K corey at [facility] . DICTATED BY: Antonio Renee MD Oncology JOB #: [id number] EXT JOB #:[id number] <Electronicall y Signed by Antonio Renee MD> [...] + + documented in this encounter Results [facility] Metabolic Panel (02/09/2012 5:48 AM PDT) + [...] + + | Performing | Address | City/[facility] | Phone Number | | Organization | | | | + + + + + | [facility] | [address] | [place] | [phone] | | [facility] | | [address] | | | - LABORATORY | | | | + + + + + | [facility] | [address] | [place] | | | [facility] | | [address] | | | - LABORATORY | | [...] [facility] | | | | | | [facility] | | | | | | MEDICAL | | | | | | YACOLT - | | | | | | LABORATORY | | + +-------+ + + + + + | Specimen | + + | | + + + + + + + | Performing | Address | City/State/Zipcode | Phone Number | | Organization | | | | + + + + + | [facility] | [address] | [place], [place] | [phone] | | [facility] | | [address] | | | - LABORATORY | | | | + + + + + | [facility] | [address] | [place], [place] | | | [facility] | | [address] | | | - LABORATORY | | [...] + | [facility] | [address] | [place] | [phone] | | [facility] | | [address] | | | - LABORATORY | | | | + + + + + | [facility] | [address] | [place] | | | [facility] | | [address] | | | - LABORATORY | | [...] [address] | [place] | [phone] | | [facility] | | [address] | | | - LABORATORY | | | | + + + + + | [facility] | [address] | [place] | | | [facility] | | [address] | | | - LABORATORY | | [...] + | [facility] | [address] | [place], [place] | [phone] | | [facility] | | [address] | | | - LABORATORY | | | | + + + + + | [facility] | [address] | [place], [place] | | | [facility] | | [address] | | | [...] [address] | [place] | [phone] | | [facility] | | [address] | | | - LABORATORY | | | | + + + + + | [facility] | [address] | [place] | | | [facility] | | [address] | | | - LABORATORY | | [...] - 1.030 | [facility] | | | [place] | | | [facility] | | [...] | | ? | | | [facility] | | | | | | MEDICAL [...] + | [facility] | [address] | [place] | [phone] | | [facility] | | [address] | | | - LABORATORY | | | | + + + + + | [facility] | [address] | [place] | | | [facility] | | [address] | | | - LABORATORY | | [...] | RANGE FOR RANDOM URINE | | [facility] | | | Random | SPECIMEN | [...] + | [facility] | [address] | [place], [place] | [phone] | | [facility] | | [address] | | | - LABORATORY | | | | + + + + + | [facility] | [address] | [place], [place] | | | [facility] | | [address] | | | - LABORATORY | | [...] + + + + + | [facility] | [address] | [place] | [phone] | | [facility] | | [address] | | | - LABORATORY | | | | + + + + + | [facility] | [address] | [place] | | | [facility] | | [address] | | | - LABORATORY | | [...] + | [facility] | [address] | [place] | [phone] | | [facility] | | [address] | | | - LABORATORY | | | | + + + + + | [facility] | [address] | [place] | | | [facility] | | [address] | | | - LABORATORY | | [...] + + | Performing | Address | City/[facility]/Zipcode | Phone Number | | Organization | | | | + + + + + | [facility] | [address] | [place] | [phone] | | [facility] | | [address] | | | - LABORATORY | | | | + + + + + | [facility] | [address] | [place] | | | [facility] | | [address] | | | - LABORATORY | | [...] [address] | [place] | [phone] | | [facility] | | [address] | | | - LABORATORY | | | | + + + + + | [facility] | [address] | [place] | | | [facility] | | [address] | | | - LABORATORY | | [...] + | [facility] | [address] | [place] | [phone] | | [facility] | | [address] | | | - LABORATORY | | | | + + + + + | [facility] | [address] | [place], [place] | | | [facility] | | [address] | | | - LABORATORY | | [...] + | [facility] | [address] | [place], [place] | [phone] | | [facility] | | [address] | | | - LABORATORY | | | | + + + + + | [facility] | [address] | [place], [place] | | | [facility] | | [address] | | | - LABORATORY | | [...] + | [facility] | [address] | [place] | [phone] | | [facility] | | [address] | | | - LABORATORY | | | | + + + + + | [facility] | [address] | [place] | | | [facility] | | [address] | | | - LABORATORY | | [...] | | | | | | [facility] | | | | | | MEDICAL [...] + | [facility] | [address] | [place] | [phone] | | [facility] | | [address] | | | - LABORATORY | | | | + + + + + | [facility] | [address] | [place] | | | [facility] | | [address] | | | - LABORATORY | | [...] + | [facility] | [address] | [place], [place] | [phone] | | [facility] | | [address] | | | - LABORATORY | | | | + + + + + | [facility] | [address] | [place], [place] | | | [facility] | | [address] | | | - LABORATORY | | | | + + + + + ABO Rh (02/05/2012 1:12 PM PDT) + + | Specimen | + + | | + + + + + + + | Performing | Address | City/State/Zipcode | Phone Number | | Organization | | | | + + + + + | [facility] | [address] | [place] | [phone] | | [facility] | | [address] | | | - LABORATORY | | [...] + + + | UNIT # | [id number] | | [facility] | | | | [...] ST. | [address] | [place] | [phone] | | [facility] | | [address] | | | - LABORATORY | | [...] ST. | [address] | [place] | [phone] | | [facility] | | [address] | | | - LABORATORY | | | | + + + + + | [facility] | [address] | [place] | | | [facility] | | [address] | | | - LABORATORY | | [...] + | [facility] | [address] | [place], [place] | [phone] | | [facility] | | [address] | | | - LABORATORY | | | | + + + + + | [facility] | [address] | [place], [place] | | | [facility] | | [address] | | | - LABORATORY | | [...] [address] | [place] | [phone] | | [facility] | | [address] | | | - LABORATORY | | | | + + + + + | [facility] | [address] | [place] | | | [facility] | | [address] | | | - LABORATORY | | [...] + | [facility] | [address] | [place] | [phone] | | [facility] | | [address] | | | - LABORATORY | | | | + + + + + | [facility] | [address] | [place] | | | [facility] | | [address] | | | - LABORATORY | | [...] [address] | [place] | [phone] | | [facility] | | [address] | | | - LABORATORY | | | | + + + + + | [facility] | [address] | [place] | | | [facility] | | [address] | | | - LABORATORY | | [...] [address] | [place] | [phone] | | [facility] | | [address] | | | - LABORATORY | | | | + + + + + | [facility] | [address] | [place] | | | [facility] | | [address] | | | - LABORATORY | | [...] + | [facility] | [address] | [place], [place] | [phone] | | [facility] | | [address] | | | - LABORATORY | | | | + + + + + | [facility] | [address] | [place], [place] | | | [facility] | | [address] | | | - LABORATORY | | [...] + | [facility] | [address] | [place] | [phone] | | [facility] | | [address] | | | - LABORATORY | | | | + + + + + | [facility] | [address] | [place], [place] | | | [facility] | | [address] | | | - LABORATORY | | [...] + + | [facility] | [address] | [place] | [phone] | | [facility] | | [address] | | | - LABORATORY | | | | + + + + + | [facility] | [address] | [place] | | | [facility] | | [address] | | | - LABORATORY | | [...] + | [facility] | [address] | [place] | [phone] | | [facility] | | [address] | | | - LABORATORY | | | | + + + + + | [facility] | [address] | [place], [place] | | | [facility] | | [address] | | | - LABORATORY | | | | + + + + + ABO Rh (02/02/2012 9:02 AM PDT) + + | Specimen | + + | | + + + + + + + | Performing | Address | City/State/Zipcode | Phone Number | | Organization | | | | + + + + + | [facility] | [address] | [place] | [phone] | | [facility] | | [address] | | | - LABORATORY | | [...] + + + | UNIT # | [id number] | | [facility] | | | | [...] ST. | [address] | [place] | [phone] | | [facility] | | [address] | | | - LABORATORY | | [...] + + + | UNIT # | [id number] | | [facility] | | | | [...] [address] | [place] | [phone] | | [facility] | | [address] | | | - LABORATORY | | [...] | | | | | 02/01/12 @ 6828 by | | | | | | [...] [address] | [place] | [phone] | | [facility] | | [address] | | | - LABORATORY | | | | + + + + + | [facility] | [address] | [place], [place] | | | [facility] | | [address] | | | - LABORATORY | | [...] + | [facility] | [address] | [place], [place] | [phone] | | [facility] | | [address] | | | - LABORATORY | | | | + + + + + | [facility] | [address] | [place] | | | [facility] | | [address] | | | - LABORATORY | | [...] + | [facility] | [address] | [place] | [phone] | | [facility] | | [address] | | | - LABORATORY | | | | + + + + + | [facility] | [address] | [place], [place] | | | [facility] | | [address] | | | - LABORATORY | | [...] [address] | [place] | [phone] | | [facility] | | [address] | | | - LABORATORY | | | | + + + + + | [facility] | [address] | [place] | | | [facility] | | [address] | | | - LABORATORY | | [...] + | [facility] | [address] | [place], [place] | [phone] | | [facility] | | [address] | | | - LABORATORY | | | | + + + + + | [facility] | [address] | [place], [place] | | | [facility] | | [address] | | | - LABORATORY | | [...] [address] | [place] | [phone] | | [facility] | | [address] | | | - LABORATORY | | | | + + + + + | [facility] | [address] | [place] | | | [facility] | | [address] | | | - LABORATORY | | [...] + | [facility] | [address] | [place] | [phone] | | [facility] | | [address] | | | - LABORATORY | | | | + + + + + | [facility] | [address] | [place], [place] | | | [facility] | | [address] | | | - LABORATORY | | [...] [address] | [place] | [phone] | | [facility] | | [address] | | | - LABORATORY | | | | + + + + + | [facility] | [address] | [place] | | | [facility] | | [address] | | | - LABORATORY | | | | + + + + + ABO Rh (01/29/2012 8:38 AM PDT) + + | Specimen | + + | | + + + + + + + | Performing | Address | City/State/Zipcode | Phone Number | | Organization | | | | + + + + + | [facility] | [address] | [place] | [phone] | | [facility] | | [address] | | | - LABORATORY | | [...] + | [facility] | [address] | [place], [place] | [phone] | | [facility] | | [address] | | | - LABORATORY | | | | + + + + + | [facility] | [address] | [place], [place] | | | [facility] | | [address] | | | - LABORATORY | | [...] + + + | UNIT # | [id number] | | [facility] | | | | [...] [address] | [place] | [phone] | | [facility] | | [address] | | | - LABORATORY | | [...] + + + | UNIT # | [id number] | | [facility] | | | | [...] [address] | [place] | [phone] | | [facility] | | [address] | | | - LABORATORY | | | | + + + + + | [facility] | | | | | ST. [...] + + + | UNIT # | [id number] | | [facility] | | | | [...] + | [facility] | [address] | [place] | [phone] | | [facility] | | [address] | | | - LABORATORY | | | | + + + + + | [facility] | | | | | ST. [...] + + + | UNIT # | [id number] | | [facility] | | | | [...] [address] | [place] | [phone] | | [facility] | | [address] | | | - LABORATORY | | [...] [facility]IV[facility] | | | | | | [facility] | | | | [...] + | [facility] | [address] | [place] | [phone] | | [facility] | | [address] | | | - LABORATORY | | | | + + + + + | [facility] | [address] | [place] | | | [facility] | | [address] | | | - LABORATORY | | [...] + | [facility] | [address] | [place] | [phone] | | [facility] | | [address] | | | - LABORATORY | | | | + + + + + | [facility] | [address] | [place], [place] | | | [facility] | | [address] | | | - LABORATORY | | | | + + + + + XR Chest PA and Lateral (01/28/2012 2:34 PM PDT) + + | Specimen | + + | | + + + + + | Narrative | Performed At | + + + | [facility] Diagnostic Imaging Department | [facility] | | [address] [facility] | [facility] | | CHEST, PA AND LATERAL, [...] Transcribed Date/Time: | | | 02/09/2012 08:20 Bellperson: <Electronically Signed | | | by Vance Holland MD> 02/09/12 1121 | | + + + + + | Procedure Note | + + | Germain, Rad Conversion - 12/08/2013 5:01 PM [facility] | | Diagnostic Imaging Department [address] [place] [address] | | CHEST, PA AND LATERAL, 02/09/2012 [...] 08:06 | |Transcribed Date/Time: 02/09/2012 08:20 | |Bellperson: | |<Electronically Signed by Vance Holland MD> [...] Performed At | + + + | [facility] Diagnostic Imaging Department | [place] | | [address], [place] | [facility] | | RENAL [...] Transcribed Date/Time: | | | 02/08/2012 14:21 Bellperson: <Electronically Signed | | | by Jorge Luis Farias MD> 02/08/12 1458 | | + + + + + | Procedure Note | + + | Philip Groves Conversion - 12/08/2013 5:01 PM [facility] | | Diagnostic Imaging Department | | [address] [facility] | | | | | | [...] | Transcribed Date/Time: 02/08/2012 14:21 | | Bellperson: | | <Electronically Signed by Jorge Luis Farias MD> 02/08/12 1458 | + + + +---------+ + + | Performing | Address | City/State/Zipcode | Phone Number | | Organization | | | | + +---------+ + + | [facility] | | | | | [facility] | | | | + +---------+ + + XR Chest AP Portable (01/28/2012 2:34 PM PDT) + + | Specimen | + + | | + + + + + | Narrative | Performed At | + + + | [facility] Diagnostic Imaging Department | [facility] | | [address] [facility] | [facility] | | SINGLE AP CHEST, 02/05/2012 AT [...] | | 08:15 Transcribed Date/Time: 02/05/2012 08:22 Bellperson: | | | <Electronically Signed by Moises Rodas MD> 02/05/12 1044 | | + + + + + | Procedure Note | + + | Germain, Rad Conversion - 12/08/2013 5:01 PM [facility] | | Diagnostic Imaging Department | | [address] [facility] | | | | | | | [...] | Transcribed Date/Time: 02/05/2012 08:22 | | Bellperson: | | <Electronically Signed by Moises Rodas MD> 02/05/12 1044 | + + + +---------+ + + | Performing | Address | City/State/Zipcode | Phone Number | | Organization | | | | + +---------+ + + | [place] | | | | | [facility] DI[facility] IM[facility] | | | | + +---------+ + + XR Chest PA and Lateral (01/28/2012 2:34 PM PDT) + + | Specimen | + + | | + + + + + | Narrative | Performed At | + + + | [facility] Diagnostic Imaging Department | [place] | | [address] [facility] [place] | [facility] | | PA AND LATERAL CHEST: [...] Transcribed Date/Time: 02/03/2012 11:05 | | | Bellperson: <Electronically Signed by Moises Rodas MD> | | | 02/03/12 1543 | | + + + + + | Procedure Note | + + | Germain, Rad Conversion - 12/08/2013 5:01 PM [facility] | | Diagnostic Imaging Department | | [address], [place] | | | | | | [...] | Transcribed Date/Time: 02/03/2012 11:05 | | Bellperson: | | <Electronically Signed by Moises Rodas [...] Performed At | + + + | [facility] Diagnostic Imaging Department | [facility] | | [address] [facility] | [facility] | | [facility] CHEST CLINICAL | [...] | | | Transcribed Date/Time: 01/28/2012 17:03 Bellperson: | | | <Electronically Signed by Jorge Luis Farias MD> 01/29/12 0816 | | + + + + + | Procedure Note | + + | Germain, Rad Conversion - 12/08/2013 5:01 PM [facility] | | Diagnostic Imaging Department [address] [facility] | | [facility] CHEST CLINICAL [...] 16:56 | |Transcribed Date/Time: 01/28/2012 17:03 | |Bellperson: | |<Electronically Signed by Jorge Luis Farias [...]
--- OUTSIDE RECORDS SUMMARY | ~2019-09-11 | XMS | Encounter Summary ---
Demographics + + + | Address | [address] | | | [place] [address] | + + + | Home Phone | | + + + | Preferred Language | Unknown | + + + | Marital Status | | + + + | Adventist Affiliation | Unknown | + + + | Race | Unknown | + + + | Ethnic Group | Unknown | + + + Author + + + | Author | [facility] | | | and Hermannana | + + + | Organization | [facility] | | | and [...] [place], [place] | | | | | [address] | | + + + + + | Greta Broncheau | ECON | [place], [place] | | | | | [address] | | + + + + + Care Team Providers + +------+ + | Care Telecommunicator Supervisor Name | Role | Phone | + +------+ + PCP | Unavailable | + +------+ + Encounter Details +--------+ + + + + | Date | Type | Department | Care Team | Description | +--------+ + + + + | 05/24/ | Hospital | [facility] | Thelma, | | | 2011 - | Encounter | MED CTR CAN[facility] | Antonio Infante MD [address] | | | | [place] [address] | [place] | | | 05/31/ | | [place], [place] | [place] [address] | | | 2011 | | [address] | [phone] | | | | | [phone] | | | +--------+ + + + [...] | 03/25/20 | | | (VITAMIN D3) 89397 | mouth Once a week. | | [...] Frida Christian is a 51-year-old woman from [place], [place] with Bu rkitt's lymphoma. ACTIVE DIAGNOSES: 1. Presentation in August of 2011 with intractable searing abdominal pain. Symptoms progr essed and on October 05, 2011, she underwent advanced imaging that demonstrated diffuse mal ignant lymphadenopathy throughout the retroperitoneum. 2. Laparoscopic lymph node biopsy on November 10, 2011, at [facility] demonstrated a high-grade B cell lymphoma consistent with Burkit t's lymphoma. Positive for BCL6, CD10, CD19, CD20, CD22, and kappa light chains. Ignacio-Ba rr virus was positive by in situ hybridization. KI 67 fraction was greater than 90%. 3. Initiation of Rituxan/Hyper-CVAD chemotherapy at [facility] on November 15, 2011. CHIEF [...] in 1982 PSYCHOSOCIAL HISTORY: Lives independently in [place], [place]. HABITS: Tobacco: Positive for tobacco use. Alcohol: Positive for remote alcohol use, none currently. Other: Positive for ongoing [employer] miranda use. FAMILY HISTORY: There is no [...] Multivi tamin 1 tablet orally daily. 9. [place] 3 fish oil 1 g orally daily. [...] Burkitt's lymphoma. PLAN: Frida will return to [facility] on June 06, 2012. She ericka l undergo an intrathecal injection of 100 mg of cytarabine in preservative-free saline and then proceed directly to admission to [facility] for cycle #4B of her therapy. cc: [facility] Radiology Scheduling <Electronically Signed by Antonio Renee MD> 05/26/12 0814 Antonio Renee MD - 05/07/2012 2:36 AM PDTPROGRESS NOTE 05/16/2012 IDENTIFYING STATEMENT: Frida Christian is a 51-year-old woman from [place], [place] with Bu rkitt's lymphoma. ACTIVE DIAGNOSES: 1. Presentation in August of 2011 with intractable searing abdominal pain. Symptoms progr essed and on October 05, 2011, she underwent advanced imaging that demonstrated diffuse mal ignant lymphadenopathy throughout the retroperitoneum. 2. Laparoscopic lymph node biopsy on November 10, 2011, at [facility] demonstrated a high-grade B cell lymphoma consistent with Burkit t's lymphoma. Positive for BCL6, CD10, CD19, CD20, CD22, and kappa light chains. Ignacio-Ba rr virus was positive by in situ hybridization. KI 67 fraction was greater than 90%. 3. Initiation of Rituxan/Hyper-CVAD chemotherapy at [facility] on November 15, 2011. CHIEF [...] section 1981. PSYCHOSOCIAL HISTORY: Lives independently in [place], [place]. HABITS: Tobacco: Positive for tobacco use. [...] Multivitam in 1 tablet orally daily. 9. [place] 3 fish oil 1 g orally daily. [...] de pending upon her blood counts. cc: [facility] <Electronically Signed by Antonio Renee MD> [...] + | [facility] | [address] | [place], [place] | [phone] | | [facility] | | [address] | | | - LABORATORY | | | | + + + + + | [facility] | [address] | [place], [place] | | | [facility] | | [address] | | | - LABORATORY | | [...] + | [facility] | [address] | [place] | [phone] | | [facility] | | [address] | | | - LABORATORY | | | | + + + + + | [facility] | [address] | [place], [place] | | | [facility] | | [address] | | | - LABORATORY | | [...] + | [facility] | [address] | [place], [place] | [phone] | | [facility] | | [address] | | | - LABORATORY | | | | + + + + + | [facility] | [address] | [place], [place] | | | [facility] | | [address] | | | - LABORATORY | | [...] + | [facility] | [address] | [place] | [phone] | | [facility] | | [address] | | | - LABORATORY | | | | + + + + + | [facility] | [address] | [place] | | | [facility] | | [address] | | | - LABORATORY | | [...] + | [facility] | [address] | [place] | [phone] | | [facility] | | [address] | | | - LABORATORY | | | | + + + + + | [facility] | [address] | [place], [place] | | | [facility] | | [address] | | | - LABORATORY | | [...] + + | Performing | Address | City/[facility] | Phone Number | | Organization | | | | + + + + + | [facility] | [address] | [place] | [phone] | | [facility] | | [address] | | | - LABORATORY | | | | + + + + + | [facility] | [address] | [place] | | | [facility] | | [address] | | | - LABORATORY | | [...] [address] | [place] | [phone] | | [facility] | | [address] | | | - LABORATORY | | | | + + + + + | [facility] | [address] | [place], [place] | | | [facility] | | [address] | | | - LABORATORY | | [...] + | [facility] | [address] | [place], [place] | [phone] | | [facility] | | [address] | | | - LABORATORY | | | | + + + + + | [facility] | [address] | [place], [place] | | | [facility] | | [address] | | | - LABORATORY | | [...] + | [facility] | [address] | [place], [place] | [phone] | | [facility] | | [address] | | | - LABORATORY | | | | + + + + + | [facility] | [address] | [place] | | | [facility] | | [address] | | | - LABORATORY | | | | + + + + + documented in this encounter Visit Diagnoses Not on filedocumented in this encounter"
--- OUTSIDE RECORDS SUMMARY | ~2019-09-11 | XMS | Encounter Summary ---
Demographics + + + | Address | [address] | | | [place] [address] | + + + | Home Phone | | + + + | Preferred Language | Unknown | + + + | Marital Status | | + + + | Shinto Affiliation | Unknown | + + + | Race | Unknown | + + + | Ethnic Group | Unknown | + + + Author + + + | Author | [facility] | | | and Hermannana | + + + | Organization | [facility] [...] [place], [place] | | | | | [address] | | + + + + + | Greta Broncheau | ECON | [place], [place] | | | | | [address] | | + + + + + Care Team Providers + +------+ + | Care Obgyn Hospitalist Physician Name | Role | Phone | + +------+ + PCP | Unavailable | + +------+ + Encounter Details +--------+ + + + + | Date | Type | Department | Care Team | Description | +--------+ + + + + | 03/31/ | Hospital | [facility] | Thelma, | | | 2011 | Encounter | MED CTR CANCER | Antonio Infante MD [address] | | | | | [place] [address] | [place] [facility] | | | | | [place], [place] | [place] [address] | | | | | [address] | [phone] | | | | | [phone] | | | +--------+ + + + [...] | 03/25/20 | | | (VITAMIN D3) 41349 | mouth Once a week. | | [...] Frida Christian is a 51-year-old woman from [place], [place], with Burkitt's lymphoma. ACTIVE DIAGNOSES: 1. Presentation in August 2001, with intractable searing abdominal pain. Symptoms progre ssed and on October 05, 2011, she underwent advanced imaging that demonstrated diffuse malignant lymphadenopathy throughout the retroperitoneum. 2. Laparoscopic lymph node biopsy on November 10, 2011, at [facility], demonstrated a high grade B cell lymphoma, consistent with Burkitt's lymphoma, positive for BCL6, CD10, CD19, CD20, CD2 2, and kappa light chains. Ignacio-Palmer virus was positive by in situ hybridization, KI 67 f raction was greater than 90%. 3. Initiation of Rituxan/Hyper-CVAD chemotherapy at [facility] on November 15, 2011. CHIEF COMPLAINT: Frida Christian returned to the [facility] in [place], [place] on March 31, 2012, cycle 3A [...] cytarabine on that date. cc: JING Luis, [facility] <Electronically Signed by Antonio Renee MD> 04/05/12 1422 Antonio Renee MD - 03/15/2012 3:15 AM PDTPROGRESS NOTE: 03/24/2012 IDENTIFYING STATEMENT: Frida Christian is a 51-year-old woman from [place], [place], with Burkitt's lymphoma. ACTIVE DIAGNOSES: 1. Presentation in August 2001, with intractable searing abdominal pain. Symptoms progre ssed and on October 05, 2011, she underwent advanced imaging that demonstrated diffuse malignant lymphadenopathy throughout the retroperitoneum. 2. Laparoscopic lymph node biopsy on November 10, 2011, at [facility], demonstrated a high grade B cell lymphoma, consistent with Burkitt's lymphoma, positive for BCL6, CD10, CD19, CD20, CD2 2, and kappa light chains. Ignacio-Palmer virus was positive by in situ hybridization, KI 67 f raction was greater than 90%. 3. Initiation of Rituxan/Hyper-CVAD chemotherapy at [facility] on November 15, 2011. CHIEF COMPLAINT: Frida Christian returned to the [facility] on March 24, 2012, at [...] 3B scheduled for April 05, 2012. CC: [facility] <Electronically Signed by Antonio Renee MD> [...] | 0.68 | 0.60 - 1.30 | [facility] | | | | | mg/dL | [facility] | | | | | [facility] | | | | | | [facility] - | | | | | | LABORATORY | | + + + + + + | Estimated | >60Comment: For | >60 mL/min/A | [facility] | | | GFR | -Americans, [...] + | [facility] | [address] | [place] | [phone] | | [facility] | | [address] | | | - LABORATORY | | | | + + + + + | [facility] | [address] | [place] | | | [facility] | | [address] | | | - LABORATORY | | [...] + + | Performing | Address | City/[facility]/Zipcode | Phone Number | | Organization | | | | + + + + + | [facility] | [address] | [place], [place] | [phone] | | [facility] | | [address] | | | - LABORATORY | | | | + + + + + | [facility] | [address] | [place], [place] | | | [facility] | | [address] | | | - LABORATORY | | [...] + | [facility] | [address] | [place] | [phone] | | [facility] | | [address] | | | - LABORATORY | | | | + + + + + | [facility] | [address] | [place] | | | [facility] | | [address] | | | - LABORATORY | | [...] + | [facility] | [address] | [place] | [phone] | | [facility] | | [address] | | | - LABORATORY | | | | + + + + + | [facility] | [address] | [place] | | | [facility] | | [address] | | | - LABORATORY | | [...] + | [facility] | [address] | [place] | [phone] | | [facility] | | [address] | | | - LABORATORY | | | | + + + + + | [facility] | [address] | [place] | | | [facility] | | [address] | | | - LABORATORY | | [...] + | [facility] | [address] | [place] | [phone] | | [facility] | | [address] | | | - LABORATORY | | | | + + + + + | [facility] | [address] | [place] | | | [facility] | | [address] | | | - LABORATORY | | [...] [address] | [place] | [phone] | | [facility] | | [address] | | | - LABORATORY | | | | + + + + + | [facility] | [address] | [place] | | | [facility] | | [address] | | | - LABORATORY | | [...] + | [facility] | [address] | [place], [place] | [phone] | | [facility] | | [address] | | | - LABORATORY | | | | + + + + + | [facility] | [address] | [place], [place] | | | [facility] | | [address] | | | - LABORATORY | | [...] | + + + + + | [facility] | [address] | [place], [place] | [phone] | | [facility] | | [address] | | | - LABORATORY | | | | + + + + + | [facility] | [address] | [place], [place] | | | [facility] | | [address] | | | - LABORATORY | | | | + + + + + documented in this encounter Visit Diagnoses Not on filedocumented in this encounter"
--- OUTSIDE RECORDS SUMMARY | ~2019-09-11 | XMS | Encounter Summary ---
Demographics + + + | Address | [address] | | | [place] [address] | + + + | Home Phone | | + + + | Preferred Language | Unknown | + + + | Marital Status | | + + + | Quaker Affiliation | Unknown | + + + | Race | Unknown | + + + | Ethnic Group | Unknown | + + + Author + + + | Author | [facility] | | | and Hermannana | + + + | Organization | [facility] | | | and [...] [place], [place] | | | | | [address] | | + + + + + | Greta Broncheau | ECON | [place], [place] | | | | | [address] | | + + + + + Care Team Providers + +------+ + | Care Nurse Executive Name | Role | Phone | + +------+ + PCP | Unavailable | + +------+ + Encounter Details +--------+ + + + + | Date | Type | Department | Care Team | Description | +--------+ + + + + | 04/11/ | Hospital | [facility] | Thelma, | | | 2011 - | Encounter | MED CTR MED ONC | Antonio Infante MD [address] | | | | [address] [place] | [address] [place] | | | 04/17/ | | [place] [address] | [place] [address] | | | 2011 | | [phone] | [phone] | | | | | | | [...] #3B of Rituxan/hyper-CVAD. She was admitted to [facility], where her Port-A-Cath was accessed without any complications, a nd she beg an intravenous fluids and urinary alkalinization. On 04/11/2012, day #1 of chemotherapy, she was taken to the radiology suite, where she had a lumbar puncture performed and 100 mg of intrathecal cytarabine and preservative-f ree saline administe red by Dr. Renee. She then returned to the [facility] floor, where s he received 650 mg of [...] with Dr. Renee scheduled in the [facility] following her discharge. DICTATED BY: Antonio Renee MD Oncology JOB #: [id number] EXT JOB #:[id number] <Electronicall y Signed by Antonio Renee MD> [...] | 03/25/20 | | | (VITAMIN D3) [id number] | mouth Once a week. | | [...] Alivia | | | | | | [facility] | | | | | | Center, [address], | | | | | | [place] [address] | | | | | | CLIA: [id number] | | | | + + + + + + + + | Specimen | + + | | + + + + + + + | Performing | Address | City/[facility] | Phone Number | | Organization | | | | + + + + + | [facility] | [address] | [place] | [phone] | | [facility] | | [address] | | | - LABORATORY | | | | + + + + + | [facility] | [address] | [place] | | | [facility] | | [address] | | | - LABORATORY | | [...] | 19.0 | 12 - 20 | [facility] | [address] | [place] | [phone] | | [facility] | | [address] | | | - LABORATORY | | | | + + + + + | [facility] | [address] | [place] | | | [facility] | | [address] | | | - LABORATORY | | | | + + + + + Magnesium (04/17/2012 6:26 AM PDT) + +-------+ + + + | Component | Value | Ref Range | Performed | Pathologist | | | | | At | Signature | + +-------+ + + + | Magnesium | 2.4 | 1.8 - 2.5 mg/dL | [facility] [...] + | [facility] | [address] | [place] | [phone] | | [facility] | | [address] | | | - LABORATORY | | | | + + + + + | [facility] | [address] | [place] | | | [facility] | | [address] | | | - LABORATORY | | | | + + + + + CBC with Differential (04/17/2012 6:26 AM PDT) + + + + + + | Component | Value | Ref Range | Performed | Pathologist | | | | | At | Signature | + + + + + + | WBC | 15.0 (H) | 4.0 - 11.0 K/uL | [facility] | | | | | [facility] | | | | | | MEDICAL | | | | | | CENTER - | | | | | | LABORATORY | | + + + + + + | RBC | 2.45 (L) | 3.70 - 5.20 [...] + | [facility] | [address] | [place], [place] | [phone] | | [facility] | | [address] | | | - LABORATORY | | | | + + + + + | [facility] | [address] | [place] | | | [facility] | | [address] | | | - LABORATORY | | [...] Alivia | | | | | | [facility] | | | | | | [place], [address], | | | | | | [place] [address] | | | | | | CLIA: [id number] | | | | + + + + + + + + | Specimen | + + | | + + + + + + + | Performing | Address | City/State/Zipcode | Phone Number | | Organization | | | | + + + + + | [facility] | [address] | [place], [place] | [phone] | | [facility] | | [address] | | | - LABORATORY | | | | + + + + + | [facility] | [address] | [place], [place] | | | [facility] | | [address] | | | - LABORATORY | | [...] | 10.6 | 6.0 - 17.0 | [facility] | [address] | [place] | [phone] | | [facility] | | [address] | | | - LABORATORY | | | | + + + + + | [facility] | [address] | [place] | | | [facility] | | [address] | | | - LABORATORY | | | | + + + + + Magnesium (04/16/2012 7:41 AM PDT) + +-------+ + + + | Component | Value | Ref Range | Performed | Pathologist | | | | | At | Signature | + +-------+ + + + | Magnesium | 2.4 | 1.8 - 2.5 mg/dL | [facility] | | | | | [...] + | [facility] | [address] | [place] | [phone] | | [facility] | | [address] | | | - LABORATORY | | | | + + + + + | [facility] | [address] | [place] | | | [facility] | | [address] | | | - LABORATORY | | | | + + + + + CBC with Differential (04/16/2012 7:41 AM PDT) + + + + + + | Component | Value | Ref Range | Performed | Pathologist | | | | | At | Signature | + + + + + + | WBC | 5.7 | 4.0 - 11.0 K/uL | [facility] | | | | [facility] | | | | | | MEDICAL | | | | | | CENTER - | | | | | | LABORATORY | | + + + + + + | RBC | 2.57 (L) | 3.70 - 5.20 [...] | + + + + + | [facility] | [address] | [place] | [phone] | | [facility] | | [address] | | | - LABORATORY | | | | + + + + + | [facility] | [address] | [place] | | | [facility] | | [address] | | | - LABORATORY | | [...] | | | | | | [facility] | | | | | | [...] [address] | [place] | [phone] | | [facility] | | [address] | | | - LABORATORY | | | | + + + + + | [facility] | [address] | [place] | | | [facility] | | [address] | | | - LABORATORY | | [...] + | [facility] | [address] | [place] | [phone] | | [facility] | | [address] | | | - LABORATORY | | | | + + + + + | [facility] | [address] | [place] | | | [facility] | | [address] | | | - LABORATORY | | [...] [address] | [place] | [phone] | | [facility] | | [address] | | | - LABORATORY | | [...] + | [facility] | [address] | [place], [place] | [phone] | | [facility] | | [address] | | | - LABORATORY | | | | + + + + + | [facility] | [address] | [place], [place] | | | [facility] | | [address] | | | - LABORATORY | | [...] + | [facility] | [address] | [place] | [phone] | | [facility] | | [address] | | | - LABORATORY | | | | + + + + + | [facility] | [address] | [place] | | | [facility] | | [address] | | | - LABORATORY | | [...] Level | Interpretation depends | | [facility] | | | | on dosing and draw times | | MEDICAL | | | | as well as target | | CENTER - | | | | level for the disease | | LABORATORY | | | | being treated. Testing | | | | | | Performed: [facility] | | | | | | [facility] | | | | | | [place], [address], | | | | | | [place] [address] | | | | | | CLIA: [id number] | | | | + + + + + + + + | Specimen | + + | | + + + + + + + | Performing | Address | City/State/Zipcode | Phone Number | | Organization | | | | + + + + + | [facility] | [address] | [place] | [phone] | | [facility] | | [address] | | | - LABORATORY | | | | + + + + + | [facility] | [address] | [place] | | | [facility] | | [address] | | | - LABORATORY | | | | + + + + + CBC with Differential (04/15/2012 6:43 AM PDT) + + + + + + | Component | Value | Ref Range | Performed | Pathologist | | | | | At | Signature | + + + + + + | WBC | 5.8 | 4.0 - 11.0 K/uL | [facility] | | | | | | [facility] | | | | | | MEDICAL | | | | | | CENTER - | | | | | | LABORATORY | | + + + + + + | RBC | 2.04 (L) | 3.70 - 5.20 [...] TIFFANY | | | | | | D[place] 04/15/12 @0708 by | | | | [...] 94.9 | 83.0 - 101.0 fL | [facility] | | | | | [...] SUSPECTED | 1 (H)Comment: TEST | | [facility] | | | PROBLEM IS: | REPEATED, [...] [address] | [place] | [phone] | | [facility] | | [address] | | | - LABORATORY | | | | + + + + + | [facility] | [address] | [place] | | | [facility] | | [address] | | | - LABORATORY | | [...] + + + | UNIT # | [id number] | | [facility] | | | | [...] [address] | [place] | [phone] | | [facility] | | [address] | | | - LABORATORY | | | | + + + + + | [facility] | | | | | [facility] [...] + + + | UNIT # | [id number] | | [facility] | | | | [...] + + | [facility] | [address] | [place] | [phone] | | [facility] | | [address] | | | - LABORATORY | | | | + + + + + | [facility] | | | | | [facility] [...] + + + + | Color | LIGHT YELLOW | | [facility] | | | | | [facility] | | | | | | MEDICAL | | | | | | CENTER - | | | | | | LABORATORY | | + + + + + + | Clarity | CLEAR | | [facility] | | | | [...] - 1.030 | [facility] | | | Parish | | | [facility] | | [address] | [place] | [phone] | | [facility] | | [address] | | | - LABORATORY | | | | + + + + + | [facility] | [address] | [place] | | | [facility] | | [address] | | | - LABORATORY | | [...] | 0.66 | 0.60 - 1.30 | [facility] | | | | | mg/dL | [facility] | | | | | | MEDICAL | | | | | | CENTER - | | | | | | LABORATORY | | + + + + + + | Estimated | >60Comment: For | >60 mL/min/A | [facility] | | | GFR | -Americans, | [...] | 8.5 | 6.0 - 17.0 | [facility] | [...] + | [facility] | [address] | [place], [place] | [phone] | | [facility] | | [address] | | | - LABORATORY | | | | + + + + + | [facility] | [address] | [place], [place] | | | [facility] | | [address] | | | - LABORATORY | | [...] [address] | [place] | [phone] | | [facility] | | [address] | | | - LABORATORY | | | | + + + + + | [facility] | [address] | [place] | | | [facility] | | [address] | | | - LABORATORY | | [...] [facility] | | | | | | [facility] | | | | | | [place], [address], | | | | | | [place] [address] | | | | | | CLIA: [id number] | | | | + + + + + + + + | Specimen | + + | | + + + + + + + | Performing | Address | City/[facility]/Zipcode | Phone Number | | Organization | | | | + + + + + | [facility] | [address] | [place], [place] | [phone] | | [facility] | | [address] | | | - LABORATORY | | | | + + + + + | [facility] | [address] | [place], [place] | | | [facility] | | [address] | | | - LABORATORY | | [...] + + + + | RBC | 2.15 (L) | 3.70 - 5.20 [...] | | | | | @0643 by FRIDA | | | | | [...] IS: | REPEATED, CRITICAL | | [facility] | | | | RESULT-PHONE RESULTS [...] + | [facility] | [address] | [place] | [phone] | | [facility] | | [address] | | | - LABORATORY | | | | + + + + + | [facility] | [address] | [place] | | | [facility] | | [address] | | | - LABORATORY | | | | + + + + + UA, Microscopic, Reflex (04/13/2012 9:33 AM PDT) + +-------+ + + + | Component | Value | Ref Range | Performed | Pathologist | | | | | At | Signature | + +-------+ + + + | WBC UA | 0-2 | 0 - 1 /hpf | [facility] | | | | | [facility] | | | | | | MEDICAL | | | | | | CENTER - | | | | | | LABORATORY | | + +-------+ + + + | RBC UA | 2-4 | 0 - 4 /hpf | [facility] | | | | | [facility] | | | | | | MEDICAL | | | | | | CENTER - | | | | | | LABORATORY | | + +-------+ + + + | SQUAMOUS | RARE | FEW /hps | [facility] | | | EPITHELIAL | | | [facility] | | | [facility] | | | MEDICAL | | | | | | CENTER - | | | | | | LABORATORY | | + +-------+ + + + | BACTERIA UA | RARE | NONE /hpf | [facility] | | | | | | [facility] | | | | | | MEDICAL | | | | | | CENTER - | | | | | | LABORATORY | | + +-------+ + + + | Culture | NO | | [facility] | | | Indicated | | | [facility] | | | | | | [...] + | [facility] | [address] | [place] | [phone] | | [facility] | | [address] | | | - LABORATORY | | | | + + + + + | [facility] | [address] | [place] | | | [facility] | | [address] | | | - LABORATORY | | [...] | METHOD [address] | | | [facility] | | | | | | MEDICAL | | | | | | CENTER - | | | | | | LABORATORY | | + + + + + + | Color | LIGHT YELLOW | | [facility] | | | | | | [facility] | | | | | | MEDICAL | | | | | | CENTER - | | | | | | LABORATORY | | + + + + + + | Clarity | CLEAR | | [facility] | | | | [...] - 1.030 | [facility] | | | Parish | | | [facility] | | [...] + | [facility] | [address] | [place], [place] | [phone] | | [facility] | | [address] | | | - LABORATORY | | | | + + + + + | [facility] | [address] | [place], [place] | | | [facility] | | [address] | | | - LABORATORY | | | | + + + + + Methotrexate Level (04/13/2012 7:19 AM PDT) + + + + + + | Component | Value | Ref Range | Performed | Pathologist | | | | | At | Signature | + + + + + + | Methotrexat | 5.33Comment: | () umol/L | [facility] | | | e Level | Interpretation [...] [facility] | | | | | | [facility] | | | | | | [place], [address], | | | | | | [place] [address] | | | | | | CLIA: [id number] | | | | + + + + + + + + | Specimen | + + | | + + + + + + + | Performing | Address | City/State/Zipcode | Phone Number | | Organization | | | | + + + + + | [facility] | [address] | [place] | [phone] | | [facility] | | [address] | | | - LABORATORY | | | | + + + + + | [facility] | [address] | [place], [place] | | | [facility] | | [address] | | | - LABORATORY | | | | + + + + + Comprehensive Metabolic Panel (04/13/2012 7:19 AM PDT) + + + + + + | Component | Value | Ref Range | Performed | Pathologist | | | | | At | Signature | + + + + + + | Glucose | 102 | 70 - 109 mg/dL | [facility] [...] 7 | 7 - 18 mg/dL | [facility] [...] + | [facility] | [address] | [place], [place] | [phone] | | [facility] | | [address] | | | - LABORATORY | | | | + + + + + | [facility] | [address] | [place], [place] | | | [facility] | | [address] | | | - LABORATORY | | [...] + | [facility] | [address] | [place], [place] | [phone] | | [facility] | | [address] | | | - LABORATORY | | | | + + + + + | [facility] | [address] | [place] | | | [facility] | | [address] | | | - LABORATORY | | [...] + + + + | RBC | 2.33 (L) | 3.70 - 5.20 [...] + | [facility] | [address] | [place] | [phone] | | [facility] | | [address] | | | - LABORATORY | | | | + + + + + | [facility] | [address] | [place], [place] | | | [facility] | | [address] | | | - LABORATORY | | [...] + + + + | Clarity | CLEAR | | [facility] | | | | [...] | | Urine | | | [facility] | | | | | | MEDICAL | | | | | | CENTER - | | | | | | LABORATORY | | + + + + + + | Specific | <=1.005 | 1.001 - 1.030 | [facility] | | | Parish | | | [facility] | | [...] + | [facility] | [address] | [place] | [phone] | | [facility] | | [address] | | | - LABORATORY | | | | + + + + + | [facility] | [address] | [place] | | | [facility] | | [address] | | | - LABORATORY | | | | + + + + + Comprehensive Metabolic Panel (04/12/2012 5:32 AM PDT) + + + + + + | Component | Value | Ref Range | Performed | Pathologist | | | | | At | Signature | + + + + + + | Glucose | 90 | 70 - 109 mg/dL | [facility] [...] 10 | 7 - 18 mg/dL | [facility] | | | | | | [facility] | | | | | | MEDICAL | | | | | | CENTER - | | | | | | LABORATORY | | + + + + + + | Creatinine | 0.65 | 0.60 - 1.30 | [facility] | [...] + | [facility] | [address] | [place] | [phone] | | [facility] | | [address] | | | - LABORATORY | | | | + + + + + | [facility] | [address] | [place], [place] | | | [facility] | | [address] | | | - LABORATORY | | [...] [address] | [place] | [phone] | | [facility] | | [address] | | | - LABORATORY | | | | + + + + + | [facility] | [address] | [place] | | | [facility] | | [address] | | | - LABORATORY | | [...] [facility] | | | | | | [facility] | | | | | | [place], [address], | | | | | | [place] [address] | | | | | | CLIA: [id number] | | | | + + + + + + + + | Specimen | + + | | + + + + + + + | Performing | Address | City/State/Zipcode | Phone Number | | Organization | | | | + + + + + | [facility] | [address] | [place], [place] | [phone] | | [facility] | | [address] | | | - LABORATORY | | | | + + + + + | [facility] | [address] | [place] | | | [facility] | | [address] | | | - LABORATORY | | | | + + + + + CBC with Differential (04/12/2012 5:32 AM PDT) + + + + + + | Component | Value | Ref Range | Performed | Pathologist | | | | | At | Signature | + + + + + + | WBC | 3.7 (L) | 4.0 - 11.0 [...] [address] | [place] | [phone] | | [facility] | | [address] | | | - LABORATORY | | | | + + + + + | [facility] | [address] | [place], [place] | | | [facility] | | [address] | | | - LABORATORY | | | | + + + + + [place] Lumbar Puncture (04/11/2012 10:02 AM PDT) + + | Specimen | + + | | + + + + + | Narrative | Performed At | + + + | [facility] Diagnostic Imaging Department | [facility] | | [address] [facility] | [facility] | | SPINE INJECTION THERAPEUTIC, | DIAG [...] Transcribed Date/Time: 04/11/2012 15:20 | | | Ruling Machine Feeder: <Electronically Signed by Vance Holland, | | | > 04/12/12 1444 | | + + + + + | Procedure Note | + + | Germain, Rad Conversion - 12/08/2013 5:30 PM [facility] | | Diagnostic Imaging Department | | [address] [facility] [place] | | | | | | [...] | Transcribed Date/Time: 04/11/2012 15:20 | | Ruling Machine Feeder: | | <Electronically Signed by Vance Holland MD> 04/12/12 1444 | + + + +---------+ + + | Performing | Address | City/State/Zipcode | Phone Number | | Organization | | | | + +---------+ + + | [place] | | | | | [facility] | | | | + +---------+ + + documented in this encounter Visit Diagnoses Not on filedocumented in this encounter"
--- OUTSIDE RECORDS SUMMARY | ~2019-09-11 | XMS | Encounter Summary ---
Demographics + + + | Address | [address] | | | [place] [address] | + + + | Home Phone [...] + + | Author | [facility] | | | and Hermannana | + + + | Organization | [facility] | [...] [place], [place] | | | | | [address] | | + + + + + | Greta Broncheau | ECON | [place], [place] | | | | | [address] | | + + + + + Care Team Providers + +------+ + | Care Information Assurance Analyst Name | Role | Phone | + +------+ + PCP | Unavailable | + +------+ + Encounter Details +--------+ + + + + | Date | Type | Department | Care Team | Description | +--------+ + + + + | 05/09/ | Hospital | [facility] | Thelma, | | | 2011 - | Encounter | MED CTR MED ONC | Antonio Infante MD [address] | | | | [address] [place] | [address] [place] | | | 05/14/ | | [place] [address] | [place] [address] | | | 2011 | | [phone] | [phone] | | | | | | | [...] Frida Christian is a 51-year-old woman from [place], [place] with Burkitt l ymphoma wh o was admitted to [facility] on 05/09/2012 for cycle 4A [...] adverse effects. She then proceeded to the [facility] unit where she received 650 mg of [...] orally daily as needed for diarrhea. 9. Her[place] 5/325 one or two tablets every 6 [...] see Dr. Renee on 05/16/2012 at the [facility] in [place], [place] for clinical and laboratory followup with a lab or emily at 8:30 a.m. and doctor visit at 0900.DICTATED BY: Antonio Renee MD Oncology JOB #: [id number] EXT JOB #:[id number] cc: [facility] <Electronically Signed by Antonio Renee MD> 05/15/12 [...] | 03/25/20 | | | (VITAMIN D3) [address] | mouth Once a week. | | [...] + | [facility] | [address] | [place] | [phone] | | [facility] | | [address] | | | - LABORATORY | | | | + + + + + | [facility] | [address] | [place] | | | [facility] | | [address] | | | - LABORATORY | | [...] | | | | | | [facility] | | | | | | [...] + | [facility] | [address] | [place] | [phone] | | [facility] | | [address] | | | - LABORATORY | | | | + + + + + | [facility] | [address] | [place] | | | [facility] | | [address] | | | - LABORATORY | | [...] + | [facility] | [address] | [place], [place] | [phone] | | [facility] | | [address] | | | - LABORATORY | | | | + + + + + | [facility] | [address] | [place], [place] | | | [facility] | | [address] | | | - LABORATORY | | | | + + + + + ABO Rh (05/13/2012 6:45 AM PDT) + + | Specimen | + + | | + + + + + + + | Performing | Address | City/State/Zipcode | Phone Number | | Organization | | | | + + + + + | [facility] | [address] | [place] | [phone] | | [facility] | | [address] | | | - LABORATORY | | [...] | + + + + + | [facility] | [address] | [place] | [phone] | | [facility] | | [address] | | | - LABORATORY | | | | + + + + + | [facility] | [address] | [place], [place] | | | [facility] | | [address] | | | - LABORATORY | | [...] + | [facility] | [address] | [place], [place] | [phone] | | [facility] | | [address] | | | - LABORATORY | | | | + + + + + | [facility] | [address] | [place], [place] | | | [facility] | | [address] | | | - LABORATORY | | [...] + + + | UNIT # | [id number] | | [facility] | | | | [...] [address] | [place] | [phone] | | [facility] | | [address] | | | - LABORATORY | | | | + + + + + | [facility] | | | | | [facility] | | | | | - [...] + + + | UNIT # | [id number] | | [facility] | | | | [...] [address] | [place] | [phone] | | [facility] | | [address] | | | - LABORATORY | | | | + + + + + | [facility] | | | | | [facility] | | | | | - [...] [address] | [place] | [phone] | | [facility] | | [address] | | | - LABORATORY | | | | + + + + + | [facility] | [address] | [place] | | | [facility] | | [address] | | | - LABORATORY | | [...] + | [facility] | [address] | [place], [place] | [phone] | | [facility] | | [address] | | | - LABORATORY | | | | + + + + + | [facility] | [address] | [place], [place] | | | [facility] | | [address] | | | - LABORATORY | | [...] + | [facility] | [address] | [place] | [phone] | | [facility] | | [address] | | | - LABORATORY | | | | + + + + + | [facility] | [address] | [place] | | | [facility] | | [address] | | | - LABORATORY | | [...] + | [facility] | [address] | [place] | [phone] | | [facility] | | [address] | | | - LABORATORY | | | | + + + + + | [facility] | [address] | [place], [place] | | | [facility] | | [address] | | | - LABORATORY | | [...] + | [facility] | [address] | [place], [place] | [phone] | | [facility] | | [address] | | | - LABORATORY | | | | + + + + + | [facility] | [address] | [place], [place] | | | [facility] | | [address] | | | - LABORATORY | | | | + + + + + FL Lumbar Puncture (05/09/2012 10:51 AM PDT) + + | Specimen | + + | | + + + + + | Narrative | Performed At | + + + | [facility] Diagnostic Imaging Department | [facility] | | [address] [facility] | [facility] | | FLUOROSCOPY-GUIDED LUMBAR | DIAG IMG [...] | | spot image was saved to Air Button nt needle positioning. | | | Thelma [...] Transcribed Date/Time: | | | 05/09/2012 13:53 Program Technician: <Electronically Signed | | | by Moises Rodas MD> 05/09/12 3473 | | + + + + + | Procedure Note | + + | Philip Groves Conversion - 12/08/2013 5:39 PM [facility] | | Diagnostic Imaging Department [address] [facility] [place] | | FLUOROSCOPY-GUIDED LUMBAR PUNCTURE FOR [...] 13:48 | |Transcribed Date/Time: 05/09/2012 13:53 | |Program Technician: | |<Electronically Signed by Moises Rodas MD> 05/09/12 2323 | + + + +---------+ + + | Performing | Address | City/State/Zipcode | Phone Number | | Organization | | | | + +---------+ + + | [place] | | | | | [facility] | | | | + +---------+ + + documented in this encounter Visit Diagnoses Not on filedocumented in this encounter"
--- OUTSIDE RECORDS SUMMARY | ~2019-09-11 | XMS | Encounter Summary ---
Demographics + + + | Address | [address] | | | [place] [address] | + + + | Home Phone [...] Author + + + | Author | [facility] [facility] | + + + | Organization | [facility] | + + + | Address | Unknown | + + + | Phone | Unavailable | + + + Support + + + + + | Name | Relationship | Address | Phone | + + + + + | Yue Fischer | ECON | [address] | | | | | [place] | | | | | [address] | | + + + + + | Greta Broncheau | ECON | Unknown | | + + + + + Care Team Providers + +------+ + | Care Pouncing Machine Operator Name | Role | Phone [...] 2019 | on | Services [address]181 | [phone] | | | | | [address] | | | | | | Mailcode: [id number] | | | | | | [facility] | | | | | | [place], [place] | | | | | | [address] | | | | | | [phone] | | | +--------+ + + + [...]
--- OUTSIDE RECORDS SUMMARY | ~2019-09-11 | XMS | Encounter Summary ---
Demographics + + + | Address | [address] | | | [place] [address] | + + + | Home Phone [...] + | Author | [facility] | | | and Hermannana | + + + | Organization | [facility] | | | and [...] [place], [place] | | | | | [address] | | + + + + + | Greta Broncheau | ECON | [place], [place] | | | | | [address] | | + + + + + Care Team Providers + +------+ + | Care Instrument Panel Assembler Name | Role | Phone | + +------+ + PCP | Unavailable | + +------+ + Encounter Details +--------+ + + + + | Date | Type | Department | Care Team | Description | +--------+ + + + + | 03/15/ | Hospital | [facility] | Thelma, | | | 2011 - | Encounter | MED CTR MED ONC | Antonio Infante MD [address] | | | | | [address] [place] | [address] [place] | | | 03/20/ | | [place] [address] | [place] [address] | | | 2011 | | [phone] | [phone] | | | | | | | [...] Frida Christian is a 51-year-old woman from [place], [place], with an estab lished susan gnosis of Burkitt's lymphoma, who was admitted to the [facility] on 2 for cycle number 3A [...] BY: Antonio Renee MD Oncology JOB #: [id number] EXT JOB #:[id number] <Electronicall y Signed by Antonio Renee MD> [...] [address] | [place] | [phone] | | [facility] | | [address] | | | - LABORATORY | | | | + + + + + | [facility] | [address] | [place] | | | [facility] | | [address] | | | [...] + | [facility] | [address] | [place] | [phone] | | [facility] | | [address] | | | - LABORATORY | | | | + + + + + | [facility] | [address] | [place] | | | [facility] | | [address] | | | - LABORATORY | | [...] | | | | | | [facility] | | | | | | [...] + | [facility] | [address] | [place], [place] | [phone] | | [facility] | | [address] | | | - LABORATORY | | | | + + + + + | [facility] | [address] | [place], [place] | | | [facility] | | [address] | | | - LABORATORY | | [...] + | [facility] | [address] | [place] | [phone] | | [facility] | | [address] | | | - LABORATORY | | | | + + + + + | [facility] | [address] | [place], [place] | | | [facility] | | [address] | | | - LABORATORY | | [...] + | [facility] | [address] | [place] | [phone] | | [facility] | | [address] | | | - LABORATORY | | | | + + + + + | [facility] | [address] | [place] | | | [facility] | | [address] | | | - LABORATORY | | [...] | + + + + + | [facility] | [address] | [place] | [phone] | | [facility] | | [address] | | | - LABORATORY | | | | + + + + + | [facility] | [address] | [place] | | | [facility] | | [address] | | | - LABORATORY | | [...] | + + + + + | [facility] | [address] | [place] | [phone] | | [facility] | | [address] | | | - LABORATORY | | | | + + + + + | [facility] | [address] | [place], [place] | | | [facility] | | [address] | | | - LABORATORY | | [...] + | [facility] | [address] | [place], [place] | [phone] | | [facility] | | [address] | | | - LABORATORY | | | | + + + + + | [facility] | [address] | [place], [place] | | | [facility] | | [address] | | | - LABORATORY | | [...] | 0.78 | 0.60 - 1.30 | [facility] | | | | | mg/dL | [...] + | [facility] | [address] | [place], [place] | [phone] | | [facility] | | [address] | | | - LABORATORY | | | | + + + + + | [facility] | [address] | [place] | | | [facility] | | [address] | | | - LABORATORY | | [...] + | [facility] | [address] | [place], [place] | [phone] | | [facility] | | [address] | | | - LABORATORY | | | | + + + + + | [facility] | [address] | [place], [place] | | | [facility] | | [address] | | | - LABORATORY | | | | + + + + + FL Lumbar Puncture (03/15/2012 11:32 AM PDT) + + | Specimen | + + | | + + + + + | Narrative | Performed At | + + + | [facility] Diagnostic Imaging Department | [facility] | | [address] [facility] [address] | [facility] | | FLUOROSCOPY GUIDED LUMBAR | [...] | | 13:37 Transcribed Date/Time: 03/15/2012 13:48 Chief Librarian Music Department: | | | <Electronically Signed by Moises Rodas MD> 03/15/12 2650 | | + + + + + | Procedure Note | + + | Philip Groves Conversion - 12/08/2013 5:20 PM [facility] | | Diagnostic Imaging Department | | [address] | | | | | | [...] | Transcribed Date/Time: 03/15/2012 13:48 | | Chief Librarian Music Department: | | <Electronically Signed by Moises Rodas [...] At | + + + | [facility] Diagnostic Imaging Department | [place] | | [address], [place] | [facility] | | REGADENOSON SESTAMIBI STRESS | [...] | | | Transcribed Date/Time: 03/18/2012 07:15 Chief Librarian Music Department: | | | <Electronically Signed by Endy Polo MD [facility]> 03/18/12 | | | 0737 | | + + + + + | Procedure Note | + + | Germain, Rad Conversion - 12/08/2013 5:20 PM [facility] | | Diagnostic Imaging Department [address] [place] [address] | | REGADENOSON SESTAMIBI STRESS TEST, 03/17/2012 [...] 07:15Transcriptionist: <Electronically Signed by Endy Polo MD [facility]> | | 03/18/12 0737 | |zontal [...] 06:43 | |Transcribed Date/Time: 03/18/2012 07:15 | |Chief Librarian Music Department: | |<Electronically Signed by Endy Polo MD [facility]> 03/18/12 0737 | + + + [...]
--- OUTSIDE RECORDS SUMMARY | ~2019-09-11 | XMS | Encounter Summary ---
Demographics + + + | Address | [address] | | | [place] [address] | + + + | Home Phone [...] + + + | Author | [facility] | | | and Hermannana | + + + | Organization | [facility] | | | and Hermannana | + + + | Address | Unknown | + + + | Phone | Unavailable | + + + Support + + + + + | Name | Relationship | Address | Phone | + + + + + | Yue iFscher | JESE | [address] | | | | | [place], [place] | | | | | [address] | | + + + + + | Greta Broncheau | ECON | [place], [place] | | | | | [address] | | + + + + + Care Team Providers + +------+ + | Care Wedger Name | Role | Phone | + +------+ + PCP | Unavailable | + +------+ + Encounter Details +--------+ + + + + | Date | Type | Department | Care Team | Description | +--------+ + + + + | 12/24/ | Hospital | [facility] | Thelma, | | | 2011 - | Encounter | MED CTR MED ONC | Antonio Infante MD [address] | | | | | [address] [place] | [address] [place] | | | 12/29/ | | [place] [address] | [place] [address] | | | 2011 | | [phone] | [phone] | | | | | | | [...] Frida Christian is a 51-year-old woman from [place], [place] with Burkitt' s lymphoma . She was admitted to [facility] on December 24, 2011 for [...] twice daily as needed for Suzette. 9. [place] 5/325 one or two tablets every 4 [...] She will see Dr. Renee at the [facility] o n January 04, 2012 at 1230 hours. At that point, we will re-access and flush her and redress her PICC line, and s he will also be instructed to be restart dexamethasone at 20 mg orally daily x4 days. DICTATED BY: Antonio Renee MD Oncology JOB #: [id number] EXT JOB #:[id number] cc: Dylan Martinez MD <Electronically Signed by [...] + | [facility] | [address] | [place], [place] | [phone] | | [facility] | | [address] | | | - LABORATORY | | | | + + + + + | [facility] | [address] | [place], [place] | | | [facility] | | [address] | | | - LABORATORY | | [...] + | [facility] | [address] | [place] | [phone] | | [facility] | | [address] | | | - LABORATORY | | | | + + + + + | [facility] | [address] | [place], [place] | | | [facility] | | [address] | | | - LABORATORY | | | | + + + + + FL Lumbar Puncture (12/24/2011 12:46 PM PST) + + | Specimen | + + | | + + + + + | Narrative | Performed At | + + + | [facility] Diagnostic Imaging Department | [facility] | | [address] [facility] | [facility] | | LUMBAR PUNCTURE FOR | DIAG [...] administers the | | | intrathecal chemotherapy. [place] are then withdrawn and the | | | procedure is terminated. IMPRESSION: 1. UNEVENTFUL LUMBAR | | | PUNCTURE FOR INTRATHECAL CHEMOTHERAPY ADMINISTRATION. Dictated | | | Date/Time: 12/25/2011 14:50 Transcribed Date/Time: 12/25/2011 | | | 15:33 Applique Cutter: <Electronically Signed by Jorge Luis Merlos | | | MD Jarrett> 12/26/11 0936 | | + + + + + | Procedure Note | + + | Germain, Rad Conversion - 12/08/2013 4:[address] [facility] | | Diagnostic Imaging Department | | [address] [facility] [place] | | | | | | [...] attendance, administers | | the intrathecal chemotherapy. [place] are then withdrawn and the procedure is | | terminated. | | | | IMPRESSION: | | 1. UNEVENTFUL LUMBAR PUNCTURE FOR INTRATHECAL CHEMOTHERAPY ADMINISTRATION. | | | | Dictated Date/Time: 12/25/2011 14:50 | | Transcribed Date/Time: 12/25/2011 15:33 | | Applique Cutter: | | <Electronically Signed by Jorge Luis [...]
--- OUTSIDE RECORDS SUMMARY | ~2019-09-11 | XMS | Encounter Summary ---
Demographics + + + | Address | [address] | | | [place] [address] | + + + | Home Phone | | + + + | Preferred Language | Unknown | + + + | Marital Status | Single | + + + | Buddhist Affiliation | NON | + + + | Race | or | + + + | Ethnic Group | Not or | + + + Author + + + | Author | [facility] | + + + | Organization | [facility] | + + + | Address | Unknown | + + + | Phone | Unavailable | + + + Support + + + + + | Name | Relationship | Address | Phone | + + + + + | Yue Fischer | ECON | [address] | | | | | [place] | | | | | [address] | | + + + + + | Greta Broncheau | ECON | Unknown | | + + + + + Care Team Providers + +------+ + | Care Groutman Name | Role | Phone | + +------+ + | Becky Jennings | PCP | | + +------+ + Encounter Details +--------+ + + + + | Date | Type | Department | Care Team | Description | +--------+ + + + + | 11/13/ | Results | Hematology/Medical | Yossi Hutchins MD | | | 2011 | Only | Oncology at [facility] | [address] | | | | | [address] | [facility], | | | | | Mailcode: CH7 | [place] [address] | | | | | [facility] | [phone] | | | | | and [place], | | | | | | [facility] | | | | | | [place], [place] | | | | | | [address] | | | | | | [phone] | | | +--------+ + + + [...] Way Lab) Chery | [facility] | | [facility] [address] [address] | REGIONAL | | [place] [address] NOTE: TEST NOT PERFORMED: Duplicate | LABORATORY | | order. | | + + + + + + + + | Performing | Address | City/State/Zipcode | Phone Number | | Organization | | | | + + + + + | [facility] | [address] | [place] [address] | | | LABORATORY | | | [...] + + + | [facility] | [address] | [place] [address] | | | LABORATORY | | | [...] + + + | [facility] | [address] | [place] [address] | | | LABORATORY | | | [...] + + + | message left at employee health | [facility] | | | DEPARTMENT OF | | | PATHOLOGY | + + + + + + + + | Performing | Address | City/State/Zipcode | Phone Number | | Organization | | | | + + + + + | [facility] | [address] | [place] [address] | | | PATHOLOGY | [address] [...] DEPARTMENT OF | [address] | [place] [address] | | | PATHOLOGY | [address] [...] | + + + + + | [facility] DEPARTMENT OF | [address] | [place] [address] | | | PATHOLOGY | [address] | | | + + + + + documented in this encounter Visit Diagnoses Not on filedocumented in this encounter"
--- OUTSIDE RECORDS SUMMARY | ~2019-09-11 | XMS | Encounter Summary ---
Demographics + + + | Address | [address] | | | [place] [address] | + + + | Home Phone | | + + + | Preferred Language | Unknown | + + + | Marital Status | | + + + | Buddhist Affiliation | Unknown | + + + | Race | Unknown | + + + | Ethnic Group | Unknown | + + + Author + + + | Author | [facility] | | | and Hermannana | + + + | Organization | [facility] | | [...] [place], [place] | | | | | [address] | | + + + + + | Greta Broncheau | ECON | [place], [place] | | | | | [address] | | + + + + + Care Team Providers + +------+ + | Care Imcu Specialist Name | Role | Phone | + +------+ + PCP | Unavailable | + +------+ + Encounter Details +--------+ + + + + | Date | Type | Department | Care Team | Description | +--------+ + + + + | 04/11/ | Hospital | [facility] | [place], | | | 2011 - | Encounter | MED CTR MED ONC | Antonio Infante MD [address] | | | | [address] [place] | [address] [place] | | | 04/17/ | | [place] [address] | [place] [address] | | | 2011 | | [phone] | [phone] | | | | | | | [...] #3B of Rituxan/hyper-CVAD. She was admitted to [facility], where her Port-A-Cath was accessed without any complications, a nd she beg an intravenous fluids and urinary alkalinization. On 04/11/2012, day #1 of chemotherapy, she was taken to the radiology suite, where she had a lumbar puncture performed and 100 mg of intrathecal cytarabine and preservative-f ree saline administe red by Dr. Renee. She then returned to the [facility] floor, where s he received 650 mg [...] appointment with Dr. Renee scheduled in the [facility] following her discharge. DICTATED BY: Antonio Renee MD Oncology JOB #: [id number] EXT JOB #:[id number] <Electronicall y Signed by Antonio Renee MD> [...] | 03/25/20 | | | (VITAMIN D3) [id number] | mouth Once a week. | | [...] Alivia | | | | | | [facility] | | | | | | Center, [address], | | | | | | [place] [address] | | | | | | CLIA: [id number] | | | | + + + + + + + + | Specimen | + + | | + + + + + + + | Performing | Address | City/[facility] | Phone Number | | Organization | | | | + + + + + | [facility] | [address] | [place] | [phone] | | [facility] | | [address] | | | - LABORATORY | | | | + + + + + | [facility] | [address] | [place] | | | [facility] | | [address] | | | - LABORATORY | | [...] [address] | [place] | [phone] | | [facility] | | [address] | | | - LABORATORY | | | | + + + + + | [facility] | [address] | [place] | | | [facility] | | [address] | | | - LABORATORY | | [...] + | [facility] | [address] | [place] | [phone] | | [facility] | | [address] | | | - LABORATORY | | | | + + + + + | [facility] | [address] | [place] | | | [facility] | | [address] | | | - LABORATORY | | [...] + | [facility] | [address] | [place], [place] | [phone] | | [facility] | | [address] | | | - LABORATORY | | | | + + + + + | [facility] | [address] | [place] | | | [facility] | | [address] | | | - LABORATORY | | [...] Alivia | | | | | | [facility] | | | | | | [place], [address], | | | | | | [place] [address] | | | | | | CLIA: [id number] | | | | + + + + + + + + | Specimen | + + | | + + + + + + + | Performing | Address | City/State/Zipcode | Phone Number | | Organization | | | | + + + + + | [facility] | [address] | [place], [place] | [phone] | | [facility] | | [address] | | | - LABORATORY | | | | + + + + + | [facility] | [address] | [place], [place] | | | [facility] | | [address] | | | - LABORATORY | | [...] [address] | [place] | [phone] | | [facility] | | [address] | | | - LABORATORY | | | | + + + + + | [facility] | [address] | [place] | | | [facility] | | [address] | | | - LABORATORY | | [...] + | [facility] | [address] | [place] | [phone] | | [facility] | | [address] | | | - LABORATORY | | | | + + + + + | [facility] | [address] | [place] | | | [facility] | | [address] | | | - LABORATORY | | [...] | + + + + + | [facility] | [address] | [place] | [phone] | | [facility] | | [address] | | | - LABORATORY | | | | + + + + + | [facility] | [address] | [place] | | | [facility] | | [address] | | | - LABORATORY | | [...] | | | | [facility] | | | | | | MEDICAL [...] [address] | [place] | [phone] | | [facility] | | [address] | | | - LABORATORY | | | | + + + + + | [facility] | [address] | [place] | | | [facility] | | [address] | | | - LABORATORY | | [...] + | [facility] | [address] | [place] | [phone] | | [facility] | | [address] | | | - LABORATORY | | | | + + + + + | [facility] | [address] | [place] | | | [facility] | | [address] | | | - LABORATORY | | [...] [address] | [place] | [phone] | | [facility] | | [address] | | | - LABORATORY | | [...] + | [facility] | [address] | [place], [place] | [phone] | | [facility] | | [address] | | | - LABORATORY | | | | + + + + + | [facility] | [address] | [place], [place] | | | [facility] | | [address] | | | - LABORATORY | | [...] + | [facility] | [address] | [place] | [phone] | | [facility] | | [address] | | | - LABORATORY | | | | + + + + + | [facility] | [address] | [place] | | | [facility] | | [address] | | | - LABORATORY | | [...] Level | Interpretation depends | | [facility] | | | | on dosing and draw times | | MEDICAL | | | | as well as target | | CENTER - | | | | level for the disease | | LABORATORY | | | | being treated. Testing | | | | | | Performed: Alivia | | | | | | [facility] | | | | | | [place], [address], | | | | | | [place] [address] | | | | | | CLIA: [id number] | | | | + + + + + + + + | Specimen | + + | | + + + + + + + | Performing | Address | City/State/Zipcode | Phone Number | | Organization | | | | + + + + + | [facility] | [address] | [place] | [phone] | | [facility] | | [address] | | | - LABORATORY | | | | + + + + + | [facility] | [address] | [place] | | | [facility] | | [address] | | | - LABORATORY | | [...] | | Lymphocytes | | | [facility] | | [address] | [place] | [phone] | | [facility] | | [address] | | | - LABORATORY | | | | + + + + + | [facility] | [address] | [place] | | | [facility] | | [address] | | | - LABORATORY | | [...] + + + | UNIT # | [id number] | | [facility] | | | | [...] [address] | [place] | [phone] | | [facility] | | [address] | | | - LABORATORY | | | | + + + + + | [facility] | | | | | [facility] [...] + + + | UNIT # | [id number] | | [facility] | | | | [...] + | [facility] | [address] | [place] | [phone] | | [facility] | | [address] | | | - LABORATORY | | | | + + + + + | [facility] | | | | | [facility] [...] - 1.030 | [facility] | | | [place] | | | [facility] | | [...] [address] | [place] | [phone] | | [facility] | | [address] | | | - LABORATORY | | | | + + + + + | [facility] | [address] | [place] | | | [facility] | | [address] | | | - LABORATORY | | [...] | 0.66 | 0.60 - 1.30 | [facility] | | | | | mg/dL | [facility] | | | | | | [facility]ICAL | | | | | | CENTER - | | | | | | LABORATORY | | + + + + + + | Estimated | >60Comment: For | >60 mL/min/A | [facility] | | | GFR | [...] + | [facility] | [address] | [place], [place] | [phone] | | [facility] | | [address] | | | - LABORATORY | | | | + + + + + | [facility] | [address] | [place], [place] | | | [facility] | | [address] | | | - LABORATORY | | [...] [address] | [place] | [phone] | | [facility] | | [address] | | | - LABORATORY | | | | + + + + + | [facility] | [address] | [place] | | | [facility] | | [address] | | | - LABORATORY | | [...] Alivia | | | | | | [facility] | | | | | | [place], [address], | | | | | | [place] [address] | | | | | | CLIA: [id number] | | | | + + + + + + + + | Specimen | + + | | + + + + + + + | Performing | Address | City/[facility]/Zipcode | Phone Number | | Organization | | | | + + + + + | [facility] | [address] | [place], [place] | [phone] | | [facility] | | [address] | | | - LABORATORY | | | | + + + + + | [facility] | [address] | [place], [place] | | | [facility] | | [address] | | | - LABORATORY | | [...] + | [facility] | [address] | [place] | [phone] | | [facility] | | [address] | | | - LABORATORY | | | | + + + + + | [facility] | [address] | [place] | | | [facility] | | [address] | | | - LABORATORY | | [...] | | Indicated | | | [facility] | | | | | | MEDICAL [...] + | [facility] | [address] | [place] | [phone] | | [facility] | | [address] | | | - LABORATORY | | | | + + + + + | [facility] | [address] | [place] | | | [facility] | | [address] | | | - LABORATORY | | [...] - 1.030 | [facility] | | | [place] | | | [facility] | | [...] + | [facility] | [address] | [place], [place] | [phone] | | [facility] | | [address] | | | - LABORATORY | | | | + + + + + | [facility] | [address] | [place], [place] | | | [facility] | | [address] | | | - LABORATORY | | [...] Alivia | | | | | | [facility] | | | | | | [place], [address], | | | | | | [place] [address] | | | | | | CLIA: [id number] | | | | + + + + + + + + | Specimen | + + | | + + + + + + + | Performing | Address | City/State/Zipcode | Phone Number | | Organization | | | | + + + + + | [facility] | [address] | [place] | [phone] | | [facility] | | [address] | | | - LABORATORY | | | | + + + + + | [facility] | [address] | [place], [place] | | | [facility] | | [address] | | | - LABORATORY | | [...] + | [facility] | [address] | [place], [place] | [phone] | | [facility] | | [address] | | | - LABORATORY | | | | + + + + + | [facility] | [address] | [place], [place] | | | [facility] | | [address] | | | - LABORATORY | | [...] + | [facility] | [address] | [place], [place] | [phone] | | [facility] | | [address] | | | - LABORATORY | | | | + + + + + | [facility] | [address] | [place] | | | [facility] | | [address] | | | - LABORATORY | | [...] + | [facility] | [address] | [place] | [phone] | | [facility] | | [address] | | | - LABORATORY | | | | + + + + + | [facility] | [address] | [place], [place] | | | [facility] | | [address] | | | - LABORATORY | | [...] - 1.030 | [facility] | | | [place] | | | [facility] | | [...] + | [facility] | [address] | [place] | [phone] | | [facility] | | [address] | | | - LABORATORY | | | | + + + + + | [facility] | [address] | [place] | | | [facility] | | [address] | | | - LABORATORY | | [...] + | [facility] | [address] | [place] | [phone] | | [facility] | | [address] | | | - LABORATORY | | | | + + + + + | [facility] | [address] | [place], [place] | | | [facility] | | [address] | | | - LABORATORY | | [...] [address] | [place] | [phone] | | [facility] | | [address] | | | - LABORATORY | | | | + + + + + | [facility] | [address] | [place] | | | [facility] | | [address] | | | - LABORATORY | | [...] Alivia | | | | | | [facility] | | | | | | [place], [address], | | | | | | [place] [address] | | | | | | CLIA: [id number] | | | | + + + + + + + + | Specimen | + + | | + + + + + + + | Performing | Address | City/State/Zipcode | Phone Number | | Organization | | | | + + + + + | [facility] | [address] | [place], [place] | [phone] | | [facility] | | [address] | | | - LABORATORY | | | | + + + + + | [facility] | [address] | [place] | | | [facility] | | [address] | | | - LABORATORY | | [...] [address] | [place] | [phone] | | [facility] | | [address] | | | - LABORATORY | | | | + + + + + | [facility] | [address] | [place], [place] | | | [facility] | | [address] | | | - LABORATORY | | | | + + + + + [place] Lumbar Puncture (04/11/2012 10:02 AM PDT) + + | Specimen | + + | | + + + + + | Narrative | Performed At | + + + | [facility] Diagnostic Imaging Department | [facility] | | [address] [facility] | [facility] | | SPINE INJECTION THERAPEUTIC, | DIAG [...] Transcribed Date/Time: 04/11/2012 15:20 | | | [employer]: <Electronically Signed by Vance Holland, | | | > 04/12/12 1444 | | + + + + + | Procedure Note | + + | Germain, Rad Conversion - 12/08/2013 5:30 PM [facility] | | Diagnostic Imaging Department | | [address] [facility] [place] | | | | [...] | Transcribed Date/Time: 04/11/2012 15:20 | | [employer]: | | <Electronically Signed by Vance Holland MD> 04/12/12 1444 | + + + +---------+ + + | Performing | Address | City/State/Zipcode | Phone Number | | Organization | | | | + +---------+ + + | [place] | | | | | [facility] | | | | + +---------+ + + documented in this encounter Visit Diagnoses Not on filedocumented in this encounter"
--- OUTSIDE RECORDS SUMMARY | ~2019-09-11 | XMS | Encounter Summary ---
Demographics + + + | Address | [address] | | | [place] [address] | + + + | Home Phone [...] Author | [facility] | | | and Hermannana | + + + | Organization | [facility] | | | and Hermannana [...] [place], [place] | | | | | [address] | | + + + + + | Greta Broncheau | ECON | [place], [place] | | | | | [address] | | + + + + + Care Team Providers + +------+ + | Care Onshore Diver Name | Role | Phone | + [...] Specialty | Gastroenterol | Diagnoses | | Harri, | | | Services | ogy | Hemorrhage | [place], | Vance Ceballos MD | | | Required | | of rectum | [place], | [address], | | | | | and anus | CONCRETE SMOOTHER [address] | [address] | | | | | Procedures | [place], [place] | [place], | | | | | [place] | [address] [place] | [place] [address] | | | | | COLONOSCOPY, | [place], [place] | Phone: | | | | | DIAGNOSTIC | [address] | [phone] | | | | | [place] | Phone: | Fax: | | | | | COLONOSCOPY, | [phone] | [phone] | | | | | BIOPSY | Fax: | | | | | | | [phone] | | +--------+ + + + + [...] | Diagnoses | [facility] | [facility], | | | | Practitioner | colon | Medical | [place], | | | | / | screen/ pcp | Oncology | CONCRETE SMOOTHER [address] | | | | Gastroenterol | [place]/ | [address] | [place], [place] | | | | ogy | Dee - | Street | [address] [place] | | | | | Cancer | [place], | [facility] [place] | | | | | [place]/ | [place] | [address] Phone: | | | | | Medicaid [place], | [address] | [phone] | | | | | [facility] | Phone: | Fax: | | | | | Procedures | [phone] | [phone] | | | | | [place] OFFICE | Fax: | | | | | | OUTPATIENT | [phone] | | | | | | VISIT 25 | | | | | | | MINUTES NEW | | | | | | | PATIENT | | | +--------+--------+ + + + + Encounter Details +--------+---------+ + + + | Date | Type | Department | Care Team | Description | +--------+---------+ + + + | 11/22/ | Office | [facility] [place] | [facility], | Hemorrhage of rectum | | 2013 | Visit | GASTROENTEROLOGY | ELLEN [address] | and anus (Primary | | | | [address] | [place], [place] [address] | Dx); [facility] | | | | [address] [place], [place] | [place] | lymphoma | | | | [address] | [id number] | | | | | [phone] | | | +--------+---------+ + + + [...] classic 1981 [facility]ar[facility] lymph [facility], grade b cell lymphoma 11/10/2011 Port for [...] regarding its content. Electronically signed by ELLEN Dutton at 11/02 7:49 PM PSTdocumented in this encounter Plan of Treatment + [...]
--- OUTSIDE RECORDS SUMMARY | ~2019-09-11 | XMS | Encounter Summary ---
Demographics + + + | Address | [address] | | | [place] [address] | + + + | Home Phone | | + + + | Preferred Language | Unknown | + + + | Marital Status | | + + + | Oriental Orthodox Affiliation | Unknown | + + + | Race | Unknown | + + + | Ethnic Group | Unknown | + + + Author + + + | Author | [facility] | | | and Hermannana | + + + | Organization | [facility] [...] [place], [place] | | | | | [address] | | + + + + + | Greta Broncheau | ECON | [place], [place] | | | | | [address] | | + + + + + Care Team Providers + +------+ + | Care Anthropology Professor Name | Role | Phone | + +------+ + PCP | Unavailable | + +------+ + Encounter Details +--------+ + + + + | Date | Type | Department | Care Team | Description | +--------+ + + + + | 12/14/ | Hospital | [facility] | [place], | | | 2011 - | Encounter | MED CTR MEDICAL | Antonio Infante MD [address] | | | | | [address] [place] | [address] [place] | | | 12/15/ | | [place] [address] | [place] [address] | | | 2011 | | [phone] | [phone] | | | | | | | [...] Frida Christian is a 51-year-old woman from [place], [place] with Burkitt's lymphoma, who was admitted to [facility] for blood product support, cycle 1B, [...] BY: Antonio Renee MD Oncology JOB #: [id number] EXT JOB #:[id number] cc: Dylan Martinez MD, [facility] and [facility] [place] <Electronically Signed by Adams Renee MD> 12/22/11 [...] MEDICAL | | | | | | [place] - | | | | | | [...] + | [facility] | [address] | [place] | [phone] | | [facility] | | [address] | | | - LABORATORY | | | | + + + + + | [facility] | [address] | [place] | | | [facility] | | [address] | | | - LABORATORY | | [...] + | [facility] | [address] | [place] | [phone] | | [facility] | | [address] | | | - LABORATORY | | | | + + + + + | [facility] | [address] | [place] | | | [facility] | | [address] | | | - LABORATORY | | [...] | | Screen | | | . [facility] | | | | | [...] + | [facility] | [address] | [place] | [phone] | | [facility] | | [address] | | | - LABORATORY | | | | + + + + + | [facility] | [address] | [place] | | | [facility] | | [address] | | | - LABORATORY | | [...] [address] | [place] | [phone] | | [facility] | | [address] | | | - LABORATORY | | [...] + + + | UNIT # | [id number] | | [facility] | | | | [...] + | [facility] | [address] | [place] | [phone] | | [facility] | | [address] | | | - LABORATORY | | | | + + + + + | [facility] | | | | | [facility] [...] + + + | UNIT # | [id number] | | [facility] | | | | [...] [address] | [place] | [phone] | | [facility] | | [address] | | | - LABORATORY | | | | + + + + + | [facility] | | | | | [facility] [...] + + + | UNIT # | [id number] | | [facility] | | | | [...] + | [facility] | [address] | [place] | [phone] | | [facility] | | [address] | | | - LABORATORY | | | | + + + + + | [facility] | | | | | [facility] [...] + + + | UNIT # | [id number] | | [facility] | | | | [...] [address] | [place] | [phone] | | [facility] | | [address] | | | - LABORATORY | | | | + + + + + | [facility] [address] | | | | | [facility] [...] + + + | UNIT # | [id number] | | [facility] | | | | [...] [facility] | | | | | | [place] | | | | | | [...] [address] | [place] | [phone] | | [facility] | | [address] | | | - LABORATORY | | | | + + + + + | [facility] | | | | | [facility] | | | | | - LABORATORY | | | | + + + + + documented in this encounter Visit Diagnoses Not on filedocumented in this encounter"
--- OUTSIDE RECORDS SUMMARY | ~2019-09-11 | XMS | Encounter Summary ---
Demographics + + + | Address | [address] | | | [place] [address] | + + + | Home Phone | | + + + | Preferred Language | Unknown | + + + | Marital Status | | + + + | Yazidism Affiliation | Unknown | + + + | Race | Unknown | + + + | Ethnic Group | Unknown | + + + Author + + + | Author | [facility] | | | and Hermannana | + + + | Organization | [facility] | [...] [place], [place] | | | | | [address] | | + + + + + | Greta Broncheau | ECON | [place], [place] | | | | | [address] | | + + + + + Care Team Providers + +------+ + | Care Triage Rn Name | Role | Phone | + +------+ + PCP | Unavailable | + +------+ + Encounter Details +--------+ + + + + | Date | Type | Department | Care Team | Description | +--------+ + + + + | 02/24/ | Hospital | [facility] | Thelma, | | | 2011 - | Encounter | MED CTR CANCER | Antonio Infante MD [address] | | | | [place] [address] | [place] | | | 02/28/ | | [place], [place] | [place] [address] | | | 2011 | | [address] | [phone] | | | | | [phone] | | | +--------+ + + + [...] Frida Christian is a 51-year-old woman from [place], [place], with Burkitt's lymphoma. ACTIVE DIAGNOSES: 1. Presentation in August 2001, with intractable searing abdominal pain. Symptoms progre ssed and on October 05, 2011, she underwent advanced imaging that demonstrated diffuse malignant lymphadenopathy throughout the retroperitoneum. 2. Laparoscopic lymph node biopsy on November 10, 2011, at [facility], demonstrated a high grade B cell lymphoma, consistent with Burkitt's lymphoma, positive for BCL6, CD10, CD19, CD20, CD2 2, and kappa light chains. Ignacio-Palmer virus was positive by in situ hybridization, KI 67 f raction was greater than 90%. 3. Initiation of Rituxan/Hyper-CVAD chemotherapy at [facility] on November 15, 2011. [...] postpone additional treatment for further evaluation. CC: [facility] <Electronically Signed by Antonio Renee MD> 03/01/12 1603 Antonio Renee MD - 01/31/2012 3:45 AM PDTPROGRESS NOTE: 02/23/2012 IDENTIFYING STATEMENT: Frida Christian is a 51-year-old woman from [place], [place], with Burkitt's lymphoma. ACTIVE DIAGNOSES: 1. Presentation in August 2001, with intractable searing abdominal pain. Symptoms progre ssed and on October 05, 2011, she underwent advanced imaging that demonstrated diffuse malignant lymphadenopathy throughout the retroperitoneum. 2. Laparoscopic lymph node biopsy on November 10, 2011, at [facility], demonstrated a high grade B cell lymphoma, consistent with Burkitt's lymphoma, positive for BCL6, CD10, CD19, CD20, CD2 2, and kappa light chains. Ignacio-Palmer virus was positive by in situ hybridization, KI 67 f raction was greater than 90%. 3. Initiation of Rituxan/Hyper-CVAD chemotherapy at [facility] on November 15, 2011. [...] toxicity. She was emergently transferred to the [facility], where treatment was supportive only. Cycle no. [...] after cycle no. 2B and providers at [facility] are also ascrib ing this to [...] pages of documentation from Frida's admission the [facility] are reviewed: 1. Vancomycin-induced renal toxicity. Frida [...] her vancomycin exposure. 3. Cancer. Notes from [facility] are reviewed. The plan for cancer management is uncertain. She received a dose of Rituxan single infusion during her hospitalization at [facility]. It is uncertain whether or not this represents a cycle of her induction chemotherapy or if this was a mainten ance strategy. This was not specifically delineated in the 49 pages of documentation from [facility]. I trino renee Frida my own [...] managem ent of her renal insufficiency. CC: [facility] Dr. Dylan Martinez, [facility] <Electronically Signed by Antonio Renee MD> 02/25/12 [...] [address] | [place] | [phone] | | [facility] | | [address] | | | - LABORATORY | | | | + + + + + | [facility] | [address] | [place] | | | [facility] | | [address] | | | - LABORATORY | | [...] + | [facility] | [address] | [place], [place] | [phone] | | [facility] | | [address] | | | - LABORATORY | | | | + + + + + | [facility] | [address] | [place], [place] | | | [facility] | | [address] | | | - LABORATORY | | [...] + | [facility] | [address] | [place] | [phone] | | [facility] | | [address] | | | - LABORATORY | | | | + + + + + | [facility] | [address] | [place] | | | [facility] | | [address] | | | - LABORATORY | | [...] [address] | [place] | [phone] | | [facility] | | [address] | | | - LABORATORY | | | | + + + + + | [facility] | [address] | [place] | | | [facility] | | [address] | | | - LABORATORY | | [...] + | [facility] | [address] | [place] | [phone] | | [facility] | | [address] | | | - LABORATORY | | | | + + + + + | [facility] | [address] | [place] | | | [facility] | | [address] | | | - LABORATORY | | [...] + | [facility] | [address] | [place] | [phone] | | [facility] | | [address] | | | - LABORATORY | | | | + + + + + | [facility] | [address] | [place], [place] | | | [facility] | | [address] | | | - LABORATORY | | | | + + + + + documented in this encounter Visit Diagnoses Not on filedocumented in this encounter"
--- OUTSIDE RECORDS SUMMARY | ~2019-09-11 | XMS | Encounter Summary ---
Demographics + + + | Address | [address] | | | [place] [address] | + + + | Home Phone | | + + + | Preferred Language | Unknown | + + + | Marital Status | Single | + + + | Restoration Affiliation | NON | + + + | Race | or | + + + | Ethnic Group | Not or | + + + Author + + + | Author | [facility] | + + + | Organization | [facility] | + + + | Address | Unknown | + + + | Phone | Unavailable | + + + Support + + + + + | Name | Relationship | Address | Phone | + + + + + | Yue Fischer | ECON | [address] | | | | | [place] | | | | | [address] | | + + + + + | Greta Broncheau | ECON | Unknown | | + + + + + Care Team Providers + +------+ + | Care Retail Service Lead Merchandiser Name | Role | Phone | + [...] | | | | [facility] | [address] | [address] | | | | | eal mass | Ave | Ave | | | | | Other | [place], [place] | [place], [place] | | | | | specified | [address] | [address] | | | | | pre-operativ | Phone: | Phone: | | | | | e | [phone] | [phone] | | | | | examination | Fax: | Fax: | | | | | Procedures | [phone] | [phone] | | | | | REQUEST TO | | | | | | | SURGERY | | | | | | | FOREST SCIENTIST | | | | | | | [place] | | | | | | | LAP,CHOLECYS | | | | | | | TECTOMY [place] | | | | | | | REMOVAL | | | | | | | GALLBLADDER | | | | | | | [place] | | | | | | | [...] | | | [facility] | [address] | | | | | | SURGICAL | Ave | | | | | | CLIN[address] | [place], [place] | | | | | | [address] | [address] | | | | | | AVE | Phone: | | | | | | [place], | [phone] | | | | | | [place] [address] | Fax: | | | | | | Phone: | [phone] | | | | | | [phone] | | | | | | | Fax: | | | | | | | [phone] | | +--------+--------+ + + + + Encounter Details +--------+---------+ + + + | Date | Type | Department | Care Team | Description | +--------+---------+ + + + | 10/22/ | Office | Surgical Oncology | Osiel Rm MD | Retroperitoneal mass | | 2010 | Visit | at [facility] [address] | [address] | (Primary Dx); Other | | | | [address] Mail Code: | [place], [place] | specified | | | | [facility] | [address] | pre-operative | | | | and Healing, | [phone] | examination | | | | Building [address] | | | | | | [place], [place] | | | | | | [address] | | | | | | [phone] | | | +--------+---------+ + + + [...] surgeries scheduled to take place on the pitkin at the [facility]: Surgeries scheduled in the [facility] ([address] [place] [address]): registration is located on the 4th floor of [facility] (Day Surgery). Surgeries scheduled in the [facility]: registration is located on the 9th floor. Surgeries scheduled in [facility]: registration is located on the 6th floor. Surgeries scheduled in the [facility]: registration is located i n the [facility] main lobby on the first floor. For surgeries scheduled to take place at the [facility]: registration is l ocated on the 4th [...] If you use specialized medical equipment at [facility], please check with your provider before [...] Smoking Cessation Brochure. INPATIENT SURGERY INFORMATION at [facility] Prior to surgery, you will need to do the followin. [facility] Appointment (Perioperative Medicine Clinic) is on at . The [facility] clinic is located on the 4th floor of the [facility]. Post surgery: 1. Call Surgical Oncology Office ([phone]) To Make Post-Op Appointment. ANCILLARY SERVICES 1. Blood Work (Lab is located on the 3rd floor of [facility].) No appointment required. 2. Chest Xray (Radiology is located on the 3rd floor of [facility].) No appointment required. 3. EKG (EKG is located on the 9th floor of [facility].) No appointment required. *Stop blood thinners [...] a call by 3:00 pm, please call [phone]. * Check in at [facility] 9th Floor Admitting desk on 11/09/11. * Please shower, shampoo and shave before being admitted to the hospital. * Do not wear any make up, nail arabic or jewelry for the surgery. * Free [...] and plan of care. Ref: Dr. Aranda, [place] 50 yr old NA female From [place] with RP mass and gallbladder poylps, referred [...] friend in detail and we reached the fol lowing plan: P:Stop ASA now To OR in 2 weeks for lap choly and biopsy of RP mass. Pt understands risks of bleeding, inf ection ,wound healing problems,possible need to convert to open, and hernias. Signed consent after full PARQ. Will send tissue fresh for lymphoma w/u. OSIEL RM MD SURGICAL ONCOLOGY MailCode C[address], [place] [address] Renetta Ibanez MD - 10/02 [...] DEPARTMENT OF | [address] | [place] [address] | | | PATHOLOGY | [address] [...]
--- OUTSIDE RECORDS SUMMARY | ~2019-09-11 | XMS | Encounter Summary ---
Demographics + + + | Address | [address] | | | [place] [address] | + + + | Home Phone [...] + | Author | [facility] | | | and Hermannana | + + + | Organization | [facility] | | | and Hermannana [...] [place], [place] | | | | | [address] | | + + + + + | Greta Broncheau | ECON | [place], [place] | | | | | [address] | | + + + + + Care Team Providers + +------+ + | Care Paint And Table Edger Name | Role | Phone | + +------+ + PCP | Unavailable | + +------+ + Encounter Details +--------+ + + + + | Date | Type | Department | Care Team | Description | +--------+ + + + + | 06/28/ | Hospital | [facility] | Leann, | | | 2011 - | Encounter | MED CTR CANCER | Antonio Infante MD [address] | | | | [place] [address] | [address] | | | 07/01/ | | [place], [place] | [place] [address] | | | 2011 | | [address] | [phone] | | | | | [phone] | | | +--------+ + + + [...] | 03/25/20 | | | (VITAMIN D3) [address] | mouth Once a week. | | [...] Frida Christian is a 51-year-old woman from [place], [place] with Bu rkitt's lymphoma. ACTIVE DIAGNOSES: 1. Presentation in August of 2011 with intractable searing abdominal pain. Symptoms progr essed and on October 05, 2011, she underwent advanced imaging that demonstrated diffuse mal ignant lymphadenopathy throughout the retroperitoneum. 2. Laparoscopic lymph node biopsy on November 10, 2011, at 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 Positive for BCL6, CD10, CD19, CD20, CD22, and kappa light chains. Ignacio-Ba rr virus was positive by in situ hybridization. KI 67 fraction was greater than 90%. 3. Initiation of Rituxan/Hyper-CVAD chemotherapy at [facility] on November 15, 2011. CHIEF [...] 1981. PSYCHOSOCIAL HISTORY: She lives independently in [place], [place]. HABITS: Tobacco: Positive for tobacco use. [...] uni ts orally once a week. 5. [place] 5/325, 1 or 2 tablets every 4-6 hours as needed for pain. 6. Dilaudid 2 mg every 4 hours as needed for pain. 7. Lisinopril 10 mg orally daily. 8. Ativan 1 mg every 4 hours as needed for nausea, anxiety, or restlessness. 9. Multivitam in once a day. 10. Addison-3 fish oil 1 g orally daily. 11. [...] her back to Dr. Evelyn colmenares at [facility] for consideration of salvage treatment options. [facility] requirements for patient undergoing conscious sedation [...] No history of sleep apnea syndrome. C. [place] Society of Anesthesiology patient classification class I. [...] morning of the procedure and bring a airport shuttle driver. cc: [facility] <Electronically Signed by Antonio Renee MD> 07/05/12 0840 Antonio Renee MD - 06/04/2012 4:54 AM PDTDOB: 1960 PROGRESS NOTE 06/20/2012 IDENTIFYING STATEMENT: Frida Christian is a 51-year-old woman from [place], [place] with Bu rkitt's lymphoma. ACTIVE DIAGNOSES: 1. Presentation in August of 2011 with intractable searing abdominal pain. Symptoms progr essed and on October 05, 2011, she underwent advanced imaging that demonstrated diffuse mal ignant lymphadenopathy throughout the retroperitoneum. 2. Laparoscopic lymph node biopsy on November 10, 2011, at 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 Positive for BCL6, CD10, CD19, CD20, CD22, and kappa light chains. Ignacio-Ba rr virus was positive by in situ hybridization. KI 67 fraction was greater than 90%. 3. Initiation of Rituxan/Hyper-CVAD chemotherapy at [facility] on November 15, 2011. CHIEF COMPLAINT: Frida Christian returned to the [facility] on June 20, 2012, cycle #4B, [...] Multivi tamin 1 tablet orally daily. 9. Addison 3 fish oil 1 g orally daily. [...] platelet apheresis unit without adverse effects. cc: [facility] <Electronically Signed by Antonio Renee MD> 06/23/12 1427 Antonio Renee MD - 06/04/2012 4:54 AM PDTDOB: 1960 PROGRESS NOTE 06/21/2012 IDENTIFYING STATEMENT: Frida Christian is a 51-year-old woman from [place], [place] with Bu rkitt's lymphoma. ACTIVE DIAGNOSES: 1. Presentation in August of 2011 with intractable searing abdominal pain. Symptoms progr essed and on October 05, 2011, she underwent advanced imaging that demonstrated diffuse mal ignant lymphadenopathy throughout the retroperitoneum. 2. Laparoscopic lymph node biopsy on November 10, 2011, at 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 Positive for BCL6, CD10, CD19, CD20, CD22, and kappa light chains. Ignacio-Ba rr virus was positive by in situ hybridization. KI 67 fraction was greater than 90%. 3. Initiation of Rituxan/Hyper-CVAD chemotherapy at [facility] on November 15, 2011. CHIEF [...] red blood cells without adverse effects. cc: [facility] <Electronically Signed by Antonio Renee MD> 06/23/12 0717 Antonio Renee MD - 06/04/2012 4:54 AM PDTPROGRESS NOTE 06/13/2012 IDENTIFYING STATEMENT: Frida Christian is a 51-year-old woman from [place], [place] with Bu rkitt's lymphoma. ACTIVE DIAGNOSES: 1. Presentation in August of 2011 with intractable searing abdominal pain. Symptoms progr essed and on October 05, 2011, she underwent advanced imaging that demonstrated diffuse mal ignant lymphadenopathy throughout the retroperitoneum. 2. Laparoscopic lymph node biopsy on November 10, 2011, at 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 Positive for BCL6, CD10, CD19, CD20, CD22, and kappa light chains. Ignacio-Ba rr virus was positive by in situ hybridization. KI 67 fraction was greater than 90%. 3. Initiation of Rituxan/Hyper-CVAD chemotherapy at [facility] on November 15, 2011. CHIEF COMPLAINT: Frida Christian returned to the [facility] on June 13, 2012 cycle #4B [...] Multivi tamin 1 tablet orally daily. 9. Addison 3 fish oil 1 g orally daily. [...] over to observ ation without treatment. cc: [facility] <Electronically Signed by Antonio Renee MD> 06/14/12 7313 documented in this encounter Plan of Treatment [...] | | | | | | [facility] | | | | | | [...] [address] | [place] | [phone] | | [facility] | | [address] | | | - LABORATORY | | | | + + + + + | [facility] | [address] | [place] | | | [facility] | | [address] | | | - LABORATORY | | [...] | | | | | | [facility] | | | | | | [...] + | [facility] | [address] | [place], [place] | [phone] | | [facility] | | [address] | | | - LABORATORY | | | | + + + + + | [facility] | [address] | [place], [place] | | | [facility] | | [address] | | | - LABORATORY | | [...] | | Basophils | | | [facility] | | [...] + | [facility] | [address] | [place], [place] | [phone] | | [facility] | | [address] | | | - LABORATORY | | | | + + + + + | [facility] | [address] | [place], [place] | | | [facility] | | [address] | | | - LABORATORY | | [...] [address] | [place] | [phone] | | [facility] | | [address] | | | - LABORATORY | | | | + + + + + | [facility] | [address] | [place], [place] | | | [facility] | | [address] | | | - LABORATORY | | [...] + | [facility] | [address] | [place], [place] | [phone] | | [facility] | | [address] | | | - LABORATORY | | | | + + + + + | [facility] | [address] | [place], [place] | | | [facility] | | [address] | | | - LABORATORY | | [...] [address] | [place] | [phone] | | [facility] | | [address] | | | - LABORATORY | | [...] + | [facility] | [address] | [place] | [phone] | | [facility] | | [address] | | | - LABORATORY | | | | + + + + + | [facility] | [address] | [place] | | | [facility] | | [address] | | | - LABORATORY | | [...] [address] | [place] | [phone] | | [facility] | | [address] | | | - LABORATORY | | | | + + + + + | [facility] | [address] | [place] | | | [facility] | | [address] | | | - LABORATORY | | [...] + | [facility] | [address] | [place] | [phone] | | [facility] | | [address] | | | - LABORATORY | | | | + + + + + | [facility] | [address] | [place] | | | [facility] | | [address] | | | - LABORATORY | | [...] + + + | UNIT # | [id number] | | [facility] | | | | [...] [address] | [place] | [phone] | | [facility] | | [address] | | | - LABORATORY | | | | + + + + + | [facility] | [address] | [place] | | | [facility] | | [address] | | | - LABORATORY | | [...] + + + | UNIT # | [id number] | | [facility] | | | | [...] + | [facility] | [address] | [place], [place] | [phone] | | [facility] | | [address] | | | - LABORATORY | | | | + + + + + | [facility] | [address] | [place], [place] | | | [facility] | | [address] | | | - LABORATORY | | [...] + + + | UNIT # | [id number] | | [facility] | | | | [...] + | [facility] | [address] | [place], [place] | [phone] | | [facility] | | [address] | | | - LABORATORY | | | | + + + + + | [facility] | [address] | [place] | | | [facility] | | [address] | | | - LABORATORY | | [...] + | [facility] | [address] | [place], [place] | [phone] | | [facility] | | [address] | | | - LABORATORY | | | | + + + + + | [facility] | [address] | [place], [place] | | | [facility] | | [address] | | | - LABORATORY | | [...] + | [facility] | [address] | [place] | [phone] | | [facility] | | [address] | | | - LABORATORY | | | | + + + + + | [facility] | [address] | [place] | | | [facility] | | [address] | | | - LABORATORY | | [...] + | [facility] | [address] | [place], [place] | [phone] | | [facility] | | [address] | | | - LABORATORY | | | | + + + + + | [facility] | [address] | [place], [place] | | | [facility] | | [address] | | | - LABORATORY | | [...] [address] | [place] | [phone] | | [facility] | | [address] | | | - LABORATORY | | | | + + + + + | [facility] | [address] | [place] | | | [facility] | | [address] | | | - LABORATORY | | [...] + | [facility] | [address] | [place], [place] | [phone] | | [facility] | | [address] | | | - LABORATORY | | | | + + + + + | [facility] | [address] | [place], [place] | | | [facility] | | [address] | | | - LABORATORY | | [...] + | [facility] | [address] | [place], [place] | [phone] | | [facility] | | [address] | | | - LABORATORY | | | | + + + + + | [facility] | [address] | [place], [place] | | | [facility] | | [address] | | | - LABORATORY | | | | + + + + + documented in this encounter Visit Diagnoses Not on filedocumented in this encounter"
--- OUTSIDE RECORDS SUMMARY | ~2019-09-11 | XMS | Encounter Summary ---
Demographics + + + | Address | [address] | | | [place] [address] | + + + | Home Phone | | + + + | Preferred Language | Unknown | + + + | Marital Status | | + + + | Caodaism Affiliation | Unknown | + + + | Race | Unknown | + + + | Ethnic Group | Unknown | + + + Author + + + | Author | [facility] | | | and Hermannana | + + + | Organization | [facility] | | | and Hermannana [...] [place], [place] | | | | | [address] | | + + + + + | Greta Broncheau | ECON | [place], [place] | | | | | [address] | | + + + + + Care Team Providers + +------+ + | [employer] Name | Role | Phone | + +------+ + PCP | Unavailable | + +------+ + Encounter Details +--------+ + + + + | Date | Type | Department | Care Team | Description | +--------+ + + + + | 06/06/ | Hospital | [facility] | [place], | | | 2012 - | Encounter | [facility] MED [facility] | Antonio Infante MD [address] | | | | [address] [place] | [address] [place] | | | 06/11/ | | [place] [address] | [place] [address] | | | 2011 | | [phone] | [phone] | | | | | | | [...] Antonio Renee MD - 09/29/2012 3:55 [place] [address] Patient Name: ZOFIA YOUNG Provider: Antonio Renee MD Unit #: [id number] Location : 3WM : 1960 ADMISSION DATE: 06/06/2012 DISCHARGE DATE: 06/11/2012 ADMITTING DIAGNOSES 1. Burkitt's lymphoma. 2. Cardiomyopathy. DISCHARGE DIAGNOSES 1. BURKITT'S LYMPHOMA, STABLE. 2. CARDIOMYOPATHY, STABLE. PROCEDURES: Cycle #4B of Rituxan/hyper-CVAD chemotherapy. COMPLICATIONS: None. CONSULTATIONS: None. HOSPITAL COURSE: Zofia Young is a 51-year-old woman from [facility], who has Burkitt's lymphoma. Zofia was admitted to [facility] on 06/06/2012 for cycle #4B of Rituxan/ hyper-CVAD chemotherapy. Just prior to her admission she received a 100 mg injection of preservative-free cytarabin e intrathecally. She then was admitted to [facility] where her Port-A-Cath was accessed and a [...] orally daily as needed for constipation. 10. [place] 5/325 one or two tab lets every [...] BY: Antonio Renee MD Oncology JOB #: [id number] EXT JOB #:[id number] <<Signature on File>> Antonio swan MD10/03/12 0957 < Ian , Antonio Sy MD - 06/06/2012 10:48 AM PDTADMISSION DATE: 06/06/2012 DISCHARGE DATE: 06/11/2012 ADMITTING DIAGNOSES 1. Burkitt's lymphoma. 2. Cardiomyopathy. DISCHARGE DIAGNOSES 1. BURKITT'S LYMPHOMA, STABLE. 2. CARDIOMYOPATHY, STABLE. PROCEDURES: Cycle #4B of Rituxan/hyper-CVAD chemotherapy. COMPLICATIONS: None. CONSULTATIONS: None. HOSPITAL COURSE: Zofia Young is a 51-year-old woman from [facility] who has Burkitt's lymphoma. Zofia was admitted to [facility] on 06/06/2012 for cycle #4B of R ituxan/hyp er-CVAD chemotherapy. Just prior to her admission she received a 100 mg injection of preservative-free cytarabine intrathec ally. She then was admitted to [facility] where her Port-A-Cath was accessed and a [...] orally daily as needed for constipation. 10. [place] 5/325 one or two tablet s every [...] BY: Antonio Renee MD Oncology JOB #: [id number] EXT JOB #:[id number] <Electronicall y Signed by Antonio Renee MD> [...] | 03/25/20 | | | (VITAMIN D3) [id number] | mouth Once a week. | | [...] | | | | | | Performed: [place] | | | | | | [facility] | | | | | | Center, [address], | | | | | | [place] [address] | | | | | | CLIA: [id number] | | | | + + + + + + + + | Specimen | + + | | + + + + + + + | Performing | Address | City/State/Zipcode | Phone Number | | Organization | | | | + + + + + | [facility] | [address] | [place], [place] | [phone] | | [facility] | | [address] | | | - LABORATORY | | | | + + + + + | [facility] | [address] | [place], [place] | | | [facility] | | [address] | | | - LABORATORY | | [...] [address] | [place] | [phone] | | [facility] | | [address] | | | - LABORATORY | | | | + + + + + | [facility] | [address] | [place] | | | [facility] | | [address] | | | - LABORATORY | | [...] [address] | [place] | [phone] | | [facility] | | [address] | | | - LABORATORY | | | | + + + + + | [facility] | [address] | [place] | | | [facility] | | [address] | | | - LABORATORY | | [...] | | | | | | Performed: [place] | | | | | | [facility] | | | | | | Center, [address], | | | | | | [place] [address] | | | | | | [place]ONDA: [id number] | | | | + + + + + + + + | Specimen | + + | | + + + + + + + | Performing | Address | City/State/Zipcode | Phone Number | | Organization | | | | + + + + + | [facility] | [address] | [place], [place] | [phone] | | [facility] | | [address] | | | - LABORATORY | | | | + + + + + | [facility] | [address] | [place] | | | [facility] | | [address] | | | - LABORATORY | | [...] + | [facility] | [address] | [place] | [phone] | | [facility] | | [address] | | | - LABORATORY | | | | + + + + + | [facility] | [address] | [place], [place] | | | [facility] | | [address] | | | - LABORATORY | | [...] + | [facility] | [address] | [place] | [phone] | | [facility] | | [address] | | | - LABORATORY | | | | + + + + + | [facility] | [address] | [place] | | | [facility] | | [address] | | | - LABORATORY | | [...] | | | | | | Performed: [place] | | | | | | [facility] | | | | | | [place], [address], | | | | | | [place] [address] | | | | | | CLIA: [id number] | | | | + + + + + + + + | Specimen | + + | | + + + + + + + | Performing | Address | City/State/Zipcode | Phone Number | | Organization | | | | + + + + + | [facility] | [address] | [place] | [phone] | | [facility] | | [address] | | | - LABORATORY | | | | + + + + + | [facility] | [address] | [place] | | | [facility] | | [address] | | | - LABORATORY | | [...] [address] | [place] | [phone] | | [facility] | | [address] | | | - LABORATORY | | | | + + + + + | [facility] | [address] | [place] | | | [facility] | | [address] | | | - LABORATORY | | [...] + | [facility] | [address] | [place] | [phone] | | [facility] | | [address] | | | - LABORATORY | | | | + + + + + | [facility] | [address] [facility] | [place] | | | [facility] | | [address] | | | - LABORATORY | | | | + + + + + [place] Lumbar Puncture (06/06/2012 10:48 AM PDT) + + | Specimen | + + | | + + + + + | Narrative | Performed At | + + + | [facility] Diagnostic Imaging Department | [facility] | | [address], [facility] | [facility] | | FLUOROSCOPICALLY GUIDED LUMBAR | DIAG [...] administer the intrathecal | | | chemotherapy. Monaca are then wi thdrawn and procedure terminated. | | | IMPRESSION: 1. TECHNICALLY SUCCESSFUL FLUOROSCOPICALLY GUIDED | | | LUMBAR PUNCTURE FOR INTRATHECAL CHEMOTHERAPY. Dictated Date/Time: | | | 06/06/2012 14:25 Transcribed Date/Time: 06/06/2012 14:52 | | | Centrifugal Chiller Technician: JAIME <Electronically Signed by Jorge Luis Merlos | | | MD Jarrett> 06/07/12 0638 | | + + + + + | Procedure Note | + + | Germain, Philip Conversion - 12/08/2013 5:49 PM [facility] | | Diagnostic Imaging Department [address] [place] [address] | | FLUOROSCOPICALLY GUIDED LUMBAR PUNCTURE CLINICAL [...] then administer the intrathecal | | chemotherapy. Mon[place] are then withdrawn and procedure terminated. IMPRESSION: [...] attendance to then administer the intrathecal chemotherapy. Monaca a re then wi | |thdrawn and procedure terminated. | | | |IMPRESSION: | |1. TECHNICALLY SUCCESSFUL FLUOROSCOPICALLY GUIDED LUMBAR PUNCTURE FOR INTRATHECAL CHEMOTHE RAPY. | | | |Dictated Date/Time: 06/06/2012 14:25 | |Transcribed Date/Time: 06/06/2012 14:52 | |Centrifugal Chiller Technician: | |<Electronically Signed by Jorge Luis Fraias MD> 06/07/12 0638 | + + + [...]
== END 2019-09-11 17:20 | disposition home or self-care (01) ==
LOC: ED 15:57
DX: S61.215A Laceration without foreign body of left ring finger without damage to nail, initial encounter (principal); W26.8XXA Contact with other sharp object(s), not elsewhere classified, initial encounter; Z87.891 Personal history of nicotine dependence
CPT/HCPCS: 90471; 99283

== ENCOUNTER 2020-06-17 08:36 | Emergency (ER) | payer MEDICARE, OTHER ==
[~2020-06-17] VITALS: Ht 162.6 cm; Wt 85.7 kg
--- OUTSIDE RECORDS SUMMARY | ~2020-06-17 | XMS | Encounter Summary ---
Demographics + + + | Address | [address] | | | [place] [address] | + + + | Home Phone | | + + + | Preferred Language | Unknown | + + + | Marital Status | | + + + | Confucianist Affiliation | Unknown | + + + | Race | or | + + + | Ethnic Group | Not or | + + + Author + + + | Author | [facility] | | | and [place] | + + + | Organization | [facility] | | | and [place] | + + + | Address | Unknown | + + + | Phone | Unavailable | + + + Support + + + + + | Name | Relationship | Address | Phone | + + + + + | Yue Fischer | ECON | [address] | | | | | [place] | | | | | [address] | | + + + + + | Greta Bronche[place] | ECON | [place] | | | | | [address] | | + + + + + Care Team Providers + +------+ + | Care Application Engineer Name | Role | Phone | + +------+ + PCP | Unavailable | + +------+ + Encounter Details +--------+ + + + + | Date | Type | Department | Care Team | Description | +--------+ + + + + | 07/21/ | Hospital | [facility] | [place], | | | 2011 - | Encounter | [facility] | Antonio Infante MD [address] | | | | | CENTER [address] | [facility] | | | 07/31/ | | [place] | [address] [place] | | | 2011 | | [address] | [id number] | | | | | [phone] | | | +--------+ + + + [...] on file | | + + + documented as of this encounter Medications at Time of Discharge + + + +---------+ + + | Medication | Sig | Dispensed | Refills | Start | End Date | | | | | | Date | | + + + +---------+ + + | acyclovir | Take 400 mg by mouth | | 0 | 03/25/20 | | | (ZOVIRAX) 400 MG | Daily. | | | 12 | 3 | | tablet | | | | | | + + + +---------+ + + | carvedilol (COREG) | Take 3.125 mg by | | 0 | 03/29/20 | | | 3.125 mg tablet | mouth 2 times daily. | | | 12 | 3 | + + + +---------+ + + | Cholecalciferol | Take 50,000 Units by | | 0 | 03/25/20 | | | (VITAMIN D3) 66086 | mouth Once a week. | | | 12 | 4 | | UNITS CAPS | | | | | | + + + +---------+ + + | Coenzyme Q04-Kcph | one by mouth daily | | 0 | 07/13/20 | | | Oil-Vit E (CO-Q 10 | | | | 12 | 3 | | OMEGA-3 FISH OIL PO) | | | | | | + + + +---------+ + + | | TABS; One tablet as | | 0 | 03/25/20 | | | Diphenoxylate-Atropi | directed when | | | 12 | 4 | | ne (LOMOTIL PO) | needed for diarrhea | | | | | + + + +---------+ + + | lisinopril | Take 10 mg by mouth | | 0 | 03/29/20 | | | (PRINIVIL, ZESTRIL) | Daily. | | | 12 | 4 | | 10 mg tablet | | | | | | + + + +---------+ + + | LORazepam (ATIVAN) | Take 1 mg by mouth | | 0 | 03/25/20 | | | 1 mg tablet | every 4 hours as | | | 12 | 3 | | | needed. | | | | | + + + +---------+ + + | omeprazole | Take 20 mg by mouth | | 0 | 03/25/20 | | | (PRILOSEC) 20 mg | Daily. | | | 12 | 4 | | capsule | | | | | | + + + +---------+ + + | oxyCODONE | Take 20 mg by mouth | | 0 | 03/25/20 | | | (OXYCONTIN) 20 mg 12 | Twice daily as | | | 12 | 3 | | hr tablet | needed. | | | | | + + + +---------+ + + | polyethylene | 17 Gm in 8 oz glass | | 0 | 03/25/20 | | | glycol (MIRALAX) | of water or juice | | | 12 | 2 | | powder | daily | | | | | + + + +---------+ + + | PROCHLORPERAZINE | TABS; Compazine | | 0 | 03/25/20 | | | MALEATE PO | 5-10 mg by mouth as | | | 12 | 3 | | | needed | | | | | + + + +---------+ + + | psyllium | one packet two times | | 0 | 07/13/20 | | | (METAMUCIL) 0.52 G | daily | | | 12 | 3 | | capsule | | | | | | + + + +---------+ + + | Senna TABS | One - two tablets by | | 0 | 03/25/20 | | | | mouth daily as | | | 12 | 4 | | | needed | | | | | + + + +---------+ + + documented as of this encounter Progress Antonio Collier MD - 07/21/2012 3:36 AM PDTDOB: 1960 PROGRESS NOTE 07/21/2012 IDENTIFYING STATEMENT: Frida Christian is a 51-year-old woman from [place], [place] with Bu rkitt's lymphoma. ACTIVE DIAGNOSES: 1. Presentation in August of 2011 with intractable searing abdominal pain. Symptoms progr essed and on October 05, 2011, she underwent advanced imaging that demonstrated diffuse mal ignant lymphadenopathy throughout the retroperitoneum. 2. 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 Positive for BCL6, CD10, CD19, CD20, CD22, and kappa light chains. 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 KI67 fraction was greater than 90%. 3. Status post eight cycles of Rituxan/Hyper-CVAD chemotherapy with eight intrathecal inje ctions of chemotherapy between November 15, 2011, and June 06, 2012. 4. Repeat extent of di sease evaluation with CT scan of chest, abdomen, and pelvis on July 14, 2012 and bone marrow biopsy and aspiration also on July 14, 2012 demonstrated complete remission. CHIEF COMPLAINT: Frida returned to clinic on July 21, 2012 for ongoing followup of her Burkitt's lymphoma. REVIEW OF SYSTEMS: Constitutional: Denies high fever, shaking chills, fatigue, anorexia, nausea, vomiting, o r weight loss. Ear, Nose, Mouth, Throat: Denies odynophagia, dysphagia, or tinnitus. Cardiovascular: De nies shortness of breath, dyspnea on exertion, chest pain, palpitations, or orthopnea. Respiratory: Denies cough, hemoptysis, or sputum production. Gastrointestinal: Positive f or chronic diarrhea which has improved with the use of fiber. Genitourinary: Denies hematu brandon or dysuria. Musculoskeletal: Denies joint pain and tenderness. Neurologic: Positive for numbness in the feet and limited to the toes. Endocrine: Denies peripheral edema or heat/cold intolerance. Hematologic: Denies spontaneous bruising or bl eeding. PAST MEDICAL HISTORY, PAST SURGICAL HISTORY, PSYCHOSOCIAL HISTORY, FAMILY HISTORY, AND HAB ITS: See the full dictated note on June 28, 2012 which is reviewed and unchanged. ROUTINE MEDICATIONS: 1. Acyclovir 400 mg orally twice daily. 2. Coreg 3.125 mg orally twice daily. 3. Lomotil 1 tablet after each loose stool as needed for diarrhea. 4. Vitamin D 50,000 uni ts orally once a week. 5. [place] 5/325, 1 or 2 tablets every 4-6 hours as needed for pain. 6. Dilaudid 2 mg every 4 hours as needed for pain. 7. Lisinopril 10 mg orally daily. 8. Ativan 1 mg every 4 hours as needed for nausea, anxiety, or restlessness. 9. Multivitam in once a day. 10. Cucumber-3 fish oil 1 g orally daily. 11. Omeprazole 20 mg orally daily. 13. OxyContin 20 mg orally twice daily. 14. MiraLAX 17 g orally as needed. 15. Compazine 10 mg orally as needed. 16. Metamucil 1/2 unit dose orally daily. 17. Senna as needed. ALLERGIES: No known drug allergies. PHYSICAL EXAMINATION: Blood pressure 117/81, pulse 84, temperature 36.2 degrees Celsius. S aturation of oxygen is 94% on room air. Weight is 86.9 kg which is down 0.6 kg. EYES: Conjunctivae clear. Sclerae anicteric ENMT: Oropharynx free of lesions, mucous membranes moist. CARDIOVASCULAR: Regular rate and rhythm. Normal S1 and S2 without murmur, gallop, or rub. LUNGS: Good air movement bilaterally. No rhonchi, wheeze, or rales. CHEST: Left anterior chest Port-A-Cath was accessed with a Silver needle and a brisk blood return was documented. It was subsequently flushed with 20 cc of normal saline and 5 cc of 100-unit/mL heparin and deaccessed without complication. ABDOMEN: Soft, nontender, nondistended, with normoactive bowel sounds. No hepatomegaly. No splenomegaly. No palpable masses. No ascites. LYMPH NODES: No cervical, supraclavicular, axillary, or inguinal lymphadenopathy. MUSCULOSKELETAL: No joint tenderness or swelling. SKIN: No petechiae, ecchymoses, or rash. EXTREMITIES: No cyanosis, clubbing, or edema. NEUROLOGIC: Alert and oriented x3. Face symmetric. Voice articulate. Station and gait with in normal limits. LABORATORY DATA: Hemoglobin is 11.6, hematocrit 32.7%, platelet count 277,000, white coun t 6600. Comprehensive metabolic panel is entirely within normal limits including a normal L DH of 142. CT scan of the chest, abdomen, and pelvis on July 14, 2012 demonstrates complete radi ographic remission. Bone marrow biopsy on July 14, 2012 demonstrates complete hematolo gical remission. ASSESSMENT: Burkitt's lymphoma status post eight cycles of Rituxan/Hyper-CVAD chemotherap y and eight intrathecal injections of chemotherapy with complete hematological and radiogra phic remission. PLAN: Frida will be referred back to Dr. Silvio Mendoza in [place], [place] to have her Por t-A-Cath removed. She will return to see me for observation and surveillance every 3 months and prefers to have her followup visits at the [facility] here in [place], [place]. cc: [facility] Dylan Martinez MD, [facility] <Electronically Signed by Antonio Renee MD> 07/25/12 1254 documented in this encounter Plan of Treatment Not on filedocumented as of this encounter Procedures + +--------+ + + + | Procedure Name | Priori | Date/Time | Associated Diagnosis | Comments | | | ty | | | | + +--------+ + + + | CBC WITH | Routin | 07/21/2012 | | Results for this | | DIFFERENTIAL | e | 10:41 AM | | procedure are in the | | | | PDT | | results section. | + +--------+ + + + | LACTATE | Routin | 07/21/2012 | | Results for this | | DEHYDROGENASE | e | 10:41 AM | | procedure are in the | | | | PDT | | results section. | + +--------+ + + + | COMPREHENSIVE | Routin | 07/21/2012 | | Results for this | | METABOLIC PANEL | e | 10:41 AM | | procedure are in the | | | | PDT | | results section. | + +--------+ + + + documented in this encounter Results Comprehensive Metabolic Panel (07/21/2012 10:41 AM PDT) + + + + + + | Component | Value | Ref Range | Performed | Pathologist | | | | | At | Signature | + + + + + + | Glucose | 109 | 70 - 109 mg/dL | [facility] | | | | | | [facility] | | | | | | [facility] | | | | | | [facility] - | | | | | | LABORATORY | | + + + + + + | Calcium | 9.6 | 8.3 - 10.5 | [facility] | | | | | mg/dL | [facility] | | | | | | [facility] | | | | | | C[facility] - | | | | | | LABORATORY | | + + + + + + | Alkaline | 100 | 40 - 110 IU/L | [facility] | | | Phosphatase | | | [facility] | | | | | | [facility]ICAL | | | | | | CENTER - | | | | | | LABORATORY | | + + + + + + | AST | 24 | 10 - 42 IU/L | [facility] | | | | | | [facility] | | | | | | [facility]ICAL | | | | | | C[facility] - | | | | | | LABORATORY | | + + + + + + | ALT | 37 | 6 - 45 IU/L | [facility] | | | | | | [facility] | | | | | | [facility] | | | | | | C[facility] - | | | | | | LABORATORY | | + + + + + + | Bilirubin | 0.6 | 0.2 - 1.0 mg/dL | [facility] | | | Total | | | [facility] | | | | | | [facility] | | | | | | CENTER - | | | | | | LABORATORY | | + + + + + + | Total | 6.5 | 6.0 - 7.8 gm/dL | [facility] | | | Protein | | | [facility] | | | | | | [facility]ICAL | | | | | | CENTER - | | | | | | LABORATORY | | + + + + + + | Albumin | 4.2 | 3.2 - 5.0 gm/dL | [facility] | | | | | | [facility] | | | | | | [facility] | | | | | | C[facility] - | | | | | | LABORATORY | | + + + + + + | BUN | 19 (H) | 7 - 18 mg/dL | [facility] | | | | | | [facility] | | | | | | [facility] | | | | | | CENTER - | | | | | | LABORATORY | | + + + + + + | Creatinine | 0.73 | 0.60 - 1.30 | [facility] | | | | | mg/dL | [facility] | | | | | | [facility] - | | | | | | LABORATORY | | + + + + + + | Estimated | >60Comment: For | >60 mL/min/A | [facility] | | | GFR | -Americans, | | [facility] | | | | please multiply the [...] + + + + | BUN/Creatin | 26.0 (H) | 12 - 20 | [facility] | | | ine Ratio | | | [facility] | | | | | | MEDICAL | | | | | | CENTER - | | | | | | LABORATORY | | + + + + + + | Na | 135 (L) | 136 - 149 mEq/L | [facility] | | | | | | [facility] | | | | | | MEDICAL | | | | | | CENTER - | | | | | | LABORATORY | | + + + + + + | K | 4.5 | 3.5 - 5.1 mEq/l | [facility] [...] + + + | Anion Gap | 11.5 | 6.0 - 17.0 | [facility] | [...] + | [facility] | [address] | [place] | [phone] | | [facility] | | [address] | | | - LABORATORY | | | | + + + + + | [facility] | [address] | [place] | | | [facility] | | [id number] | | | - LABORATORY | | | | + + + + + Lactate Dehydrogenase (07/21/2012 10:41 AM PDT) + +-------+ + + + | Component | Value | Ref Range | Performed | Pathologist | | | | | At | Signature | + +-------+ + + + | LDH TOTAL | 142 | 91 - 180 IU/L | [facility] [...] + | [facility] | [address] | [place], [place] | [phone] | | [facility] | | [address] | | | - LABORATORY | | | | + + + + + | [facility] | [address] | [place], [place] | | | [facility] | | [facility] | | | - LABORATORY | | | | + + + + + CBC with Differential (07/21/2012 10:41 AM PDT) + + + + + + | Component | Value | Ref Range | Performed | Pathologist | | | | | At | Signature | + + + + + + | White Blood | 6.6 | 4.0 - 11.0 K/uL | [facility] | | | Cells | | | [facility] | | | | | | MEDICAL | | | | | | CENTER - | | | | | | LABORATORY | | + + + + + + | Red Blood | 3.20 (L) | 3.70 - 5.20 | [facility] | | | Cells | | M/uL | [facility] | | | | | | MEDICAL | | | | | | CENTER - | | | | | | LABORATORY | | + + + + + + | Hemoglobin | 11.6 | 11.5 - 16.0 | [facility] | | | | | gm/dL | [facility] | | | | | | MEDICAL | | | | | | CENTER - | | | | | | LABORATORY | | + + + + + + | Hematocrit | 32.7 (L) | 34.0 - 47.0 % | [facility] | | | | | | [facility] | | | | | | MEDICAL | | | | | | CENTER - | | | | | | LABORATORY | | + + + + + + | MCV | 102.1 (H) | 83.0 - 101.0 fL | [facility] | | | | | | [facility] | | | | | | MEDICAL | | | | | | CENTER - | | | | | | LABORATORY | | + + + + + + | MCH | 36.2 (H) | 28.0 - 35.0 pg | [facility] | | | | | | [facility] | | | | | | MEDICAL | | | | | | CENTER - | | | | | | LABORATORY | | + + + + + + | MCHC | 35.4 | 32.0 - 36.0 | [facility] | | | | | g/dL | [facility] | | | | | | MEDICAL | | | | | | CENTER - | | | | | | LABORATORY | | + + + + + + | RDW-CV | 16.7 (H) | <15.0 % | [facility] | | | | | [facility] | | | | | | MEDICAL | | | | | | CENTER - | | | | | | LABORATORY | | + + + + + + | Platelet | 277 | 140 - 440 K/uL | [facility] | | | Count | | | [facility] | | | | | | MEDICAL | | | | | | CENTER - | | | | | | LABORATORY | | + + + + + + | % | 52.2 | 45 - 75 % | [facility] | | | Neutrophils | | | [facility] | | | | | | MEDICAL | | | | | | CENTER - | | | | | | LABORATORY | | + + + + + + | % | 30.0 | 20 - 45 % | [facility] | | | Lymphocytes | | | [facility] | | | | | | MEDICAL | | | | | | CENTER - | | | | | | LABORATORY | | + + + + + + | % Monocytes | 8.8 | 4 - 12 % | [facility] | | | | | | [facility] | | | | | | MEDICAL | | | | | | CENTER - | | | | | | LABORATORY | | + + + + + + | % | 7.9 (H) | 0 - 5 % | [facility] | | | Eosinophils | | | [facility] | | | | | | MEDICAL | | | | | | CENTER - | | | | | | LABORATORY | | + + + + + + | % Basophils | 1.1 (H) | 0 - 1 % | [facility] | | | | | | [facility] | | | | | | MEDICAL | | | | | | CENTER - | | | | | | LABORATORY | | + + + + + + | Absolute | 3.4 | 1.5 - 6.6 K/uL | [facility] | | | Neutrophils | | | [facility] | | | | | | MEDICAL | | | | | | CENTER - | | | | | | LABORATORY | | + + + + + + | Absolute | 2.0 | 0.6 - 3.2 K/uL | [facility] | | | Lymphocytes | | | [facility] | | | | | | MEDICAL | | | | | | CENTER - | | | | | | LABORATORY | | + + + + + + | Absolute | 0.6 | 0.0 - 1.0 K/uL | [facility] | | | Monocytes | | | [facility] | | | | | | MEDICAL | | | | | | CENTER - | | | | | | LABORATORY | | + + + + + + | Absolute | 0.5 (H) | 0.0 - 0.4 K/uL | [facility] | | | Eosinophils | | | [facility] | | | | | | MEDICAL | | | | | | CENTER - | | | | | | LABORATORY | | + + + + + + | Absolute | 0.1 | 0.0 - 0.1 K/uL | [facility] | | | Basophils | | | [facility] | | [...] ST[facility] | [address] | [place] | [phone] | | [facility] | | [address] | | | - LABORATORY | | | | + + + + + | [facility] | [address] | [place] | | | [facility] | | [id number] | | | - LABORATORY | | | | + + + + + documented in this encounter Visit Diagnoses Not on filedocumented in this encounter"
--- OUTSIDE RECORDS SUMMARY | ~2020-06-17 | XMS | Encounter Summary ---
Demographics + + + | Address | [address] | | | [place] [address] | + + + | Home Phone | | + + + | Preferred Language | Unknown | + + + | Marital Status | | + + + | Confucianist Affiliation | Unknown | + + + | Race | or | + + + | Ethnic Group | Not or | + + + Author + + + | Author | [facility] | | | and [place] | + + + | Organization | [facility] | | | and [place] | [...] [place] | | | | | [address] | | + + + + + | Greta [place] | ECON | [place] | | | | | [address] | | + + + + + Care Team Providers + +------+ + | Care Insurance Follow Up Rep Name | Role | Phone | + +------+ + | Becky Jennings | PCP | | + +------+ + Reason for Visit + +--------+ + | Reason | Onset | Comments | | | Date | | + +--------+ + | Appointment | 08/20/ | | | | 2013 | | + +--------+ + Encounter Details +--------+ + + + + | Date | Type | Department | Care Team | Description | +--------+ + + + + | 08/20/ | Telephone | [facility] | Endy Polo, | Appointment | | 2013 | | CARDIOLOGY [address] | | | | | [place], | [place], | | | | | [place] [address] | [place] [address] | | | | | [phone] | [phone] | | | | | | | [...] + + documented as of this encounter Miscellaneous Notes Telephone Encounter - Vernóica Smart I - 08/21/2014 4:04 PM PDTPatient returned call. She was a no show on 07-30-14. Appt. Has been re-jaylan to 08-24-14@1300. elephone Encounter - Michelle Navarrete - 08/20/2014 1:21 PM PDTUnable to reach p atient to return our call to reschedule her appt. Sheet in recall book. docu mented in this encounter Plan of Treatment Not on filedocumented as of this encounter Visit Diagnoses Not on filedocumented in this encounter"
--- OUTSIDE RECORDS SUMMARY | ~2020-06-17 | XMS | Encounter Summary ---
Demographics + + + | Address | [address] | | | [place] [address] | + + + | Home Phone | | + + + | Preferred Language | Unknown | + + + | Marital Status | Single | + + + | Oriental Orthodox Affiliation | NON | + + + | Race | or | + + + | Ethnic Group | Not or | + + + Author + + + | Author | [facility] | + + + | Organization | [facility] | + + + | Address | Unknown | + + + | Phone | Unavailable | + + + Support + + + + + | Name | Relationship | Address | Phone | + + + + + | Yue Fischer | ECON | [address] | | | | | [place] | | | | | [address] | | + + + + + | Greta Broncheau | ECON | Unknown | | + + + + + Care Team Providers + +------+ + | Care Planning Specialist Name | Role | Phone | + +------+ + | Becky Jennings | PCP | | + +------+ + Reason for Referral Diagnostic Testing (Routine) +--------+--------+ + + + + | Status | Reason | Specialty | Diagnoses / | Referred By | Referred To | | | | | Procedures | Contact | Contact | +--------+--------+ + + + + | Closed | | Radiology | Procedures | [place], | Rad General | | | | | X-RAY | Jordan Ceballos, | [address] | | | | | LUMBAR | PA-C [address] | | | | | PUNCTURE [address] | [address] [facility] | [facility] | | | | | CHEMO ADMIN | [facility] | [facility] and | | | | | W/GUIDANCE | Rd | Healing, | | | | | | [place], [place] | Building [address], | | | | | | [address] | [facility] Floor | | | | | | Phone: | [place], [place] | | | | | | [phone] | [address] | | | | | | Fax: | Phone: | | | | | | [phone] | [phone] | | | | | | | Fax: | | | | | | | [phone] | +--------+--------+ + + + + Diagnostic Testing (Routine) +--------+--------+ + + + + | Status | Reason | Specialty | Diagnoses / | Referred By | Referred To | | | | | Procedures | Contact | Contact | +--------+--------+ + + + + | Closed | | Radiology | Procedures | Yang, | Rad General | | | | | X-RAY | CHARLIE Connelly | [address] | | | | | LUMBAR | [address] | [address] | | | | | PUNCTURE [address] | [place] | [place] [facility] | | | | | CHEMO ADMIN | [facility] | Health and | | | | | W/GUIDANCE | [place], [place] | Healing, | | | | | | [address] | Building [address], | | | | | | Phone: | 3rd Floor | | | | | | [phone] | [place], [place] | | | | | | Fax: | [address] | | | | | | [phone] | Phone: | | | | | | | [phone] | | | | | | | Fax: | | | | | | | [phone] | +--------+--------+ + + + + Diagnostic Testing (Routine) +--------+--------+ + + + + | Status | Reason | Specialty | Diagnoses / | Referred By | Referred To | | | | | Procedures | Contact | Contact | +--------+--------+ + + + + | Closed | | Radiology | Procedures | Brad, | Rad Ct Scan | | | | | CT CHEST, | Jordan Ceballos, | s [address] | | | | | ABDOMEN & | PA-C [address] | [facility] | | | | | PELVIS W IV | [address] [facility] | [address] [facility] | | | | | CONTRAST | [facility], | | | | | | Rd | [facility] Floor | | | | | | [place], [place] | [place], [place] | | | | | | [address] | [address] | | | | | | Phone: | Phone: | | | | | | [phone] | [phone] | | | | | | Fax: | Fax: | | | | | | [phone] | [phone] | +--------+--------+ + + + + Diagnostic Testing (Routine) +--------+--------+ + + + + | Status | Reason | Specialty | Diagnoses / | Referred By | Referred To | | | | | Procedures | Contact | Contact | +--------+--------+ + + + + | Closed | | Cardiology | Procedures | Brad, | Car Echo | | | | | | Jordan Ceballos, | [facility] [address] | | | | | TRANSTHORACI | PA-C [address] | | | | | C | [address] | | | | | ECHOCARDIOGR | [address] | Maya | | | | | AM, ADULT | Rd | Building, [address] | | | | | | [place], [place] | floor | | | | | | [address] | [place], [place] | | | | | | Phone: | [address] | | | | | | [phone] | Phone: | | | | | | Fax: | [phone] | | | | | | [phone] | | +--------+--------+ + + + + Reason for Visit AUTH/CERT (Routine) +--------+--------+ + + + + | Status | Reason | Specialty | Diagnoses / | Referred By | Referred To | | | | | Procedures | Contact | Contact | +--------+--------+ + + + + | Closed | | | | | | +--------+--------+ + + + + Encounter Details +--------+ + + + + | Date | Type | Department | Care Team | Description | +--------+ + + + + | 11/13/ | Hospital | [facility] [address] | Lala Avina MD | | | 2011 - | Encounter | [facility] Mailcode: | [address] | | | | | [id number] | Jena Saravia [place], | | | 12/06/ | | [place], | [place] [address] | | | 2011 | | [place] [address] | [phone] | | | | | [phone] | | | | | | | Marly Ruiz MD | | | | | | [address] | | | | | | [address] | | | | | | [place], [place] | | | | | | [address] | | | | | | [phone] | | | | | | | | | | | | Dylan Martinez | | | | | | MD [address], | | | | | | [address] | | | | | | [address] | | | | | | [place], [place] | | | | | | [address] | | | | | | [phone] | | | | | | | [...] + + documented as of this encounter Last Filed Vital Signs + + + + + | Vital Sign | Reading | Time Taken | Comments | + + + + + | Blood Pressure | 105/62 | 12/06/2011 12:54 PM | | | | | PST | | + + + + + | Pulse | 63 | 12/06/2011 12:54 PM | | | | | PST | | + + + + + | Temperature | 36.8 C (98.2 F) | 12/06/2011 12:54 PM | | | | | PST | | + + + + + | Respiratory Rate | 18 | 12/06/2011 12:54 PM | | | | | PST | | + + + + + | Oxygen Saturation | 98% | 12/06/2011 12:54 PM | | | | | PST | | + + + + + | Inhaled Oxygen | - | - | | | Concentration | | | | + + + + + | Weight | 93.2 kg (205 lb 6.4 | 12/05/2011 4:43 AM | | | | oz) | PST | | + + + + + | Height | 162 cm (5' 3.78") | 11/15/2011 6:00 PM | | | | | PST | | + + + + + | Body Mass Index | 35.5 | 11/15/2011 6:00 PM | | | | | PST | | + + + + + documented in this encounter Discharge Summaries Dylan Martinez MD - 12/06/2011 3:34 PM PSTLeukemia/CHM Attending Inpatient Progress Note: I was present and rounded today with the NPP. I have independently examined and assessed th e patient. I have personally interviewed the patient, reviewed the vitals, history/last 24 hour events and the labs/studies for today.I agree with the NPPassessment and stated pl an of care. See progress note documented by NPP for details of relevant issues and care pl an for today. Primary Diagnosis Burkitt Lymphoma Secondary Diagnosis/Comorbidities Fluid retention Hyperglycemia C. 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 She has been induced with hyper-CVAD R. 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 - resolved, on Allopurinol s/p Rasburicase administration ID: - C. difficile colitis: completed PO Vancomycin course - skin lesions: blood cultures and nasal swab cultures negative, responding to empiric Vanc omycin, stopped - prophylaxis: on Levaquine, Bactrim, Acyclovir - diarrhea: on Imodium, avoid dairy products, resolved Breast mass: - initially unclear if associated to BL or not - preliminary reading of mammogram shows benign lesions, to be reviewed Fluid retention: - diuretics prn Hyperglycemia: - on SSI, worse on steroids Skin lesions: - suspicious for Staph/MRSA, but blood cultures, nasal swabs ultimately negative - responded to empiric Vancomycin on 11/26 Code status: full Disposition: - discharge to home to-day - follow-up and Neulasta with Dr. Renee, follow-up with Dr. Hutchins for hyper-CVAD IIA in ~ 3 weeks DYLAN MARTINEZ MD [facility] [address] [facility] Mailcode: [id number] [facility] [address] [facility] DEPARTMENT: [id number] [facility] [place] Place of Service:- Inpatient Date of Service: 12/06/2011 Suggested CPT: 75134 - Subsequent, Detailed/High complex 35 min da Cee ia - 12/06/2011 3:29 PM PST INPATIENT PHYSICIAN DISCHARGE SUMMARY Attending Physician: Dylan Martinez MD PCP: JING Luis Admission Date: 11/13/2011 Discharge Date: 12/06/11 Diagnoses Principal Final Diagnosis: 1. Burkitts Lymphoma Additional Diagnoses: 1. CINV 2. Fluid overload 3. C Diff colitis Procedures 1. Bone marrow biopsy 2. Lumbar punctures Reason For Admission: Chemotherapy teatment for Burkitt's Lymphoma Hospital Course: Assessment: Hematology: History: (Per Dr. Hutchins's H&P) Ms. Young was in her usual good state of health until the later part of August 2011 when s jerrica developed some abdominal pain. It initially started on her right lateral side and she eden cribed it as sharp and constant. It was associated with a more generalized abdominal pain an d some sweats. She was seen in her local ED on 2010 where she was thought to have a urinary tract infect and was treated with a course of ciprofloxacin and hydrocodone. She developed some nausea with dry heaves and was seen by her PCP on 09/09/2011. She was susan gnosed with diabetes and started on glipizide and Glargine. She was also started on lisinopr il for hypertension. She continued to have nausea with emesis prompting a return visit to r PCP office on 09/30/2011. She continued to have abdominal pain and had an abdominal ultras ound on 10/01/2011 that showed multiple fluid filled structures with some internal echoes lynne t were adjacent to the pancrease. She was also noted to have a fatty liver. She had a follow -up abdomen/pelvic CT scan on 10/05/2011 that showed numerous masses in the retroperitoneum. The largest of the masses measured 10 cm. She was seen by Dr. Jonathan Aranda, Surgery, for further evaluation of her mass. She preferre d the procedure be done at [facility] and she was referred to Dr. Osiel Almanza. She was seen on 10/02 for her initial evaluation and then she underwent a laparoscopic exploration of her a bdomen on 11/10/2010 with biopsy of the mass. Biopsy from node was EBV positive lymphoma, FI SH t(8:14) with IgHMyc fusion c/w burkitts lymphoma. There was diffuse peritoneal studdin g seen as well as low volume ascites. She had a normal appearing gall bladder. Biopsies of h er right upper and quadrant abdominal wall nodules were obtained. Her ascites was drained an d sent for cytology. She was discharged from the hospital the following day and a referral w as made to the hematology clinic Her preliminary lymph node biopsy returned as likely Burkitt's lymphoma and she was called to come to the clinic earlier then initially scheduled. On admit she noted some drenching n ight sweats and fatigue. Her abdomen was tender and continuedto have some nausea with emesis . She was able move her bowels. She denied any fevers, chills or cough, visual changes or fo mikey neurologic symptoms. She had some chest tightness that was not related to activity. She had lost 40 lbs over the preceding 2 months that was unintentional. She had anorexia but was able to each some. Before 08/2011, she was not taking any routine medications. Patient was admitted from clinic for treatment. Hospitalization Heme issues: On discharge the patient was Day 5 of Cycle 1B and day 22 hyper-cvad cycle 1A. BMbx on 11/13 Was ormocellular marrow with trilineage hematopoiesis, RADHA. Staging CT scans of CAP on 11/14/11 showed interim increase in mediastinal, hilar, retroperitoneal and mesenteric adeno bettie compatible with progression of disease. Wall thickening of the cecum, ascending colon through the mid transverse colon, compatible with colitis, infectious or inflammatory. Batool ral pulmonary groundglass nodules, which may be old/post inflammatory, however may represent atypical infection such as fungal, particularly if the patient is immunocompromised, and Le ft breast soft tissue nodules possibly representing intramammary lymph nodes. She began treatment with Dex 40mg daily divided into 2 doses on 11/14/11 And began HyperCVA D+R on 11/15/11 (held Rituxan until the end given high tumor burden). LP with IT MTX under f luoro was done 11/18 (done under fluoro d/t pt body habitus with significant sacral edema and inability to get into position d/t signficantly enlarged abdomen) had RADHA. LP on 11/23/11 and RADHA. Her CBC was followed daily and as anticipated her counts fell appropriately. She was suppo rted through her carson with blood products as per our supportive care orders. She received Neupogen from 11/20 to 11/29/11 and was d/c'd with anticipation of the start of Cycle 1B. She started Cycle #1B on 12/02/11. LP on 12/03/11 CSF is still pending. MTX levels were monitored daily and on 12/06/11 her level was 0.07 and she was sent home with 2 days of leucovorin. On 12/04/11 a Mammogram was done to f/u left breast soft tissue nodules seen on 11/14/11 CT sc an. Shows 2 nodules in the left breast that have benign mammographic features. However asse ssment states that this was an incomplete study needing additional imaging/comparison. Reque st was sent for out side studies to compare with current imaging. Needs to be followed up in future OP setting or in subsequent admissions. Chemotherapy regimen: Pt received Cycle 1A with cytoxan 300 mg/m2 IV q12 hr x 6 doses with mesna IV CI over 3 days for bladder protection. She is also receiving dexamethasone 40 mg po daily days 1 - 4 . She is further scheduled to receive doxorubicin 50 mg/m2 IVP on day 4 () and vincristine 2 mg IVP on days 4 (11/19/11) and 11 (11/26/11). Received daily Neupog en after chemotherapy completed from 11/20-11/29/11. Pt received Cycle 1B with Methylprednisolone 50 mg IV q12 hours x 6 doses on days 1 through 3. She will also received Methotrexate 200mg/m 2 IV over 2 hours on day 1. Followed by Met hotrexate 800 mg/m 2 IV over 22 hours. Twelve hours after the conclusion of Methotrexate inf usion, pt will began Leucovorin 15 mg IV Q 6 hrs until directed to stop. MTX levels will be drawn daily and leucovorin will continue until Methotrexate level is < 0.05 uL. Pt will also received Cytarabine 3000 mg/m 2 IV over 2 hours q12 hrs X 4 doses on days 2 and 3, beginnin g after methotrexate completed; and Pred Forte Eye drops (1%) 2 drops to each eye q6 hrs fro m day 2 through day 6 to prevent chemical conjunctivitis. IV hydration, premeds and antiemet ics as ordered. Monitor for acute toxicities. Growth factor: Will receive Neulasta injection on 12/07/[address] Renee's office Transfusion parameters: Transfuse PRBCs for HCT <24% Transfuse PPH for platelet count <10,000 sooner PRN s/s bleeding. Cardiovascular: Current cardiovascular issues: -restarted OP lisinopril 10mg daily with elevated BP's. Previously held on admit with Savi Hospitalization CV issues: -admitted from the clinic with mild hypotension 100 systolic -held outpatient lisinopril 10mg on admit. -TTE to evaluate baseline function - LVEF 60-65% -Pt with significant fluid overload from cycle 1A resolved with aggressive diuresis. Pulmonary: Current pulmonary issues: -No acute issues and sats stable on RA throughout admission Imaging: no current imaging GI: Current GI issues: -Loose stools improved with scheduled imodium and treatment for C Diff (11/16 CDiff positive and 11/23 CDiff negative). Start lomotil ATC x 3 days but with near resolution switched to P RN. Stopped PO vanco 12/02 and contact precautions given 48 hours with less/no stool. -held PPI while on MTX, and will resume as OP. Had worsening GERD sxs and increased PPI to BID and use carafate. Hospitalization GI issues: -N/V, increased marinol to 5mg TID with adequate response. -abdominal and pelvic adenopathy with trace ascites based on reports of previous imaging. -CT scan of abdomen, pelvis 11/15/11 demonstrates increasing/coalescing adenopathy in abdome n. Also noted for colitis in cecum/ascending colon -noted to be C diff positive from 11/16/11 -Severe abdominal distention related to disease and worsened with fluid overload, now resol olivier. 11/30 US negative ascites. Receiving: PRN antiemetics, pain control LFTs : wnl Infectious Disease: Current issues/Bacterial: -Afebrile since admission. On prophylactic Levaquin with anticipated drop in counts. - was started on IV vancomycin d/t presence of 3 skin lesions that were concerning for cell ulitus. Improved on IV vancomycin and stopped 12/04/11. -C-diff positive by PCR 11/16/11. Started on vancomycin 125 mg po QID. Repeat CDiff negativ e. Stopped PO vanco 12/02 and contact precautions given 48 hours with less/no stool. Fungal: Prophylactic fluconazole. Will continue as OP Viral: Prophylactic Acyclovir. Continue as OP PCP: Prophylactic Bactrim stopped until after HD MTX. Will resume as OP. Pertinent positive culture: none Pertinent negative cultures: none Fluid/Electrolyte/Nutrition: Current diet: Patient was on a low bacteria diet. With continuation of diarrhea she avoide d dairy. Instructed patient that dairy was okay to use as OP if she tolerated it. She was able to eat and drink throughout her hospital stay and did not require use of TPN. The katrina ent toleratd 100% of meal(s) with 2.2L po fluid intake yesterday. She was supported with IV F's whenever her PO intake was inadequate. Electrolytes were reviewed daily and she was rep leted per our supportive care orders. Labs today are notable for hypokalemia and was replac ed. Renal function: Cr elevated 1.6 on admission, now resolved. Other: Patient is very fluid sensitive. Weight significantly increased from admission, rec hecked on different scale. I>O. Fluid overload improved after aggressive diuresis. Became f luid overloaded again with start of IVF's with cycle #1b, diuresed with lasix. Endocrine: Originally diagnosed with diabetes September 2011, remained on glipizide, however CBG's have been low upon admission. Held all oral medications on admit and used SSI. Had mi nimal insulin needs and was likely hyperglycemic given underlying malignancy. CBG's minimall y elevated with steroids. Will not discharge home on any diabetic medication. Dispo: Will be able to have acyclovir, levaquin, Nystatin, omeprazole, leucovorin and Comp azine filled at [facility] with no co-pay. Will send the rest of the prescriptions with her to be filled at the [facility]. Physical Exam on Day of Discharge Subjective: Patient still feels minimally fluid overloaded but is excited that she is gett ing discharge and is looking forward to going home. Objective: Last Vitals: BP 105/62 | Pulse 63 | Temp 36.8 C (98.2 F) | RR 18 | Ht 162 cm (5' 3.78") | Wt 93.169 kg (205 lb 6.4 oz) | SpO2 98% | BMI 35.50 kg/(m^2) 24 Hour Vital Min/Max: Systolic (24hrs), Av mmHg, Min:103 mmHg, Max:126 mmHg Diastolic (24hrs), Av mmHg, Min:61 mmHg, Max:72 mmHg Pulse Min: 63 Max: 72 Temp Min: 36.4 C (97.5 F) Max: 37 C (98.6 F) Resp Min: 17 Max: 18 SpO2 Min: 96 % Max: 98 % Intake/Output Summary (Last 24 hours) at 12/06/11 1613 Last data filed at 12/06/11 1444 Gross per 24 hour Intake 6681 ml Output 4750 ml Net 1931 ml Physical Exam: General: This is a female in no acute distress sitting up at the edge of e bed. HEENT: Sclerae anicteric. Mucosa pink and moist without erythema or exudate. Skin: 3 discrete, improving minimally erythematous, lesions on L low back near BMBX site, 1 in pubic area and 1 on R leg-all three improved with less induration. Chest: Clear to ausculation bilaterally. Normal effort. CV: RRR, no murmurs. Abdomen: S/NT/ND, NABS. Previous surgical sites c/d/i with no surrounding erythema. Extremities: Pulses strong and equal bilaterally. No c/c. 1+ DEV NeuroPsych: Alert and oriented x 3. Grossly nonfocal exam. CVC: RUE PICC line, clean dry and without surrounding erythema Chemistries: Last 72 Hours (or 3 results): Recent Labs Basename 12/06/11 0009 12/05/11 0010 12/04/11 0025 NA 138 139 139 K 3.1* 3.2* 3.7 CL 97 96* 98 BICARB 34* 36* 33* BUN 8 10 6 CR 0.55* 0.56* 0.59* CA 8.0* 8.5* 8.4* MG 1.8 2.0 1.9 PO4 3.3 3.1 2.4 AST 25 32 47* ALT 71* 95* 94* TBILI 0.6 0.4 0.6 AP 106* 133* 144* ALB 2.7* 2.8* 2.9* TP 5.2* 5.3* 5.4* Liver Tests: Last 72 hours (or 3 results) URIC ACID, PLASMA (LAB) (mg/dL) Date Value 12/06/2011 3.4 12/05/2011 4.2 12/04/2011 3.1 CBC with diff last 72 hours (or 3 results) Recent Labs Basename 12/06/11 0009 12/05/11 0010 12/04/11 0025 WBC 3.1* 2.6* 5.9 HB 8.4* 8.2* 8.7* HCT 24.2* 24.2* 25.6* PLT 331 384 326 NEUTROPERC 97* 84* 85* BANDPCT -- -- -- LYMPHPERC 3* 7* 6* MONOPERC 0* 9* 9* BASOPERC 0 0 0 EOSPERC 0* 0* 0* Current Discharge Medication List START taking these medications Details acyclovir 800 mg Oral Tablet Take 1 Tab by mouth once daily. Qty: 30 Tab, Refills: 3 Associated Diagnoses: Burkitt's lymphoma diphenoxylate-atropine 2.5-0.025 mg Oral Tablet Take 1 Tab by mouth twice daily as needed f or diarrhea. Qty: 30 Tab, Refills: 1 dronabinol 5 mg Oral Capsule Take 1 Cap by mouth three times daily before meals. Qty: 90 Cap, Refills: 1 fluconazole 200 mg Oral Tablet Take 2 Tabs by mouth once daily. Qty: 60 Tab, Refills: 3 insulin lispro 100 unit/mL Subcutaneous Solution Inject 1-16 Units under the skin (SUBC) wi th each meal and bedtime. Qty: .1, Refills: 3 leucovorin 25 mg Oral Tablet Take 1 Tab by mouth every six hours while awake. Qty: 8 Tab, Refills: 0 levofloxacin 500 mg Oral Tablet Take 1 Tab by mouth once daily. Qty: 30 Tab, Refills: 3 Associated Diagnoses: Burkitt's lymphoma LORazepam 0.5 mg Oral Tablet Take 1-2 Tabs by mouth every four hours as needed for anxiety (nausea, vomiting). Qty: 30 Tab, Refills: 0 Associated Diagnoses: Burkitt's lymphoma nystatin 100,000 unit/g Topical Powder Apply to affected area two times daily. Apply to ca ndidal lesions until lesions have healed. Qty: 30 g, Refills: 3 oxyCODONE CR 40 mg Oral Tablet Extended Release 12 hr Take 1 Tab by mouth every twelve hour s. Qty: 60 Tab, Refills: 0 prednisoLONE acetate 1 % Ophthalmic Drops, Suspension Instill 2 Drops into both eyes every six hours. Qty: 5 mL Associated Diagnoses: Burkitt's lymphoma prochlorperazine 5 mg Oral Tablet Take 1-2 Tabs by mouth every four hours as needed for emil sea/vomiting. Max dose: 40 mg/day Qty: 30 Tab, Refills: 2 Associated Diagnoses: Burkitt's lymphoma senna-docusate 8.6-50 mg Oral Tablet Take 1-2 Tabs by mouth every twelve hours as needed. F or constipation. Available over the counter trimethoprim-sulfamethoxazole 160-800 mg Oral Tablet Take 1 Tab by mouth twice daily (every Wednesday and ). Qty: 16 Tab, Refills: 3 Associated Diagnoses: Burkitt's lymphoma CONTINUE these medications which have CHANGED or have new prescriptions Details Omeprazole 20 mg Oral Tablet, Delayed Release (E.C.) Take 1 Tab by mouth once daily. Qty: 30 Tab, Refills: 3 polyethylene glycol (MIRALAX) 17 gram Oral Powder in Packet Take 1 Packet by mouth once dale ly as needed. For constipation. Available over the counter CONTINUE these medications which have NOT CHANGED Details ergocalciferol (VITAMIN D) 50,000 unit Oral Capsule Take 50,000 Units by mouth every seven days. lisinopril 10 mg Oral Tablet Take 10 mg by mouth once daily. morphine 15 mg Oral Tablet Take 15 mg by mouth twice daily as needed. Indications: Pain STOP taking these medications Aspirin 81 mg Oral Tablet Comments: Reason for Stopping: glipiZIDE ER 5 mg Oral Tablet Extended Rel 24 hr Comments: Reason for Stopping: HYDROcodone-acetaminophen 5-325 mg Oral Tablet Comments: Reason for Stopping: insulin glargine (LANTUS) 100 unit/mL Subcutaneous Solution Comments: Reason for Stopping: Maintain Intravenous Catheter PICC, dressing to be changed in clinic weekly.Saline Flush (for PICC Groshong catheters). Flush each lumen of central catheter with 5 ml NS each week or after medications. Diet Low Bacteria Low bacteria diet- You should choose foods that have a low bacterial content to reduce the risk of infection. Your nurse or hematology nurse will provide you with information about foods to avoid. NEUTROPENIA Low Bacteria Diet Description: A diet low in bacterial content for the neutropenic population. It is also fo r Bone Marrow transplant patients in pancytopenia and the post-transplant recovery phase. Adequacy: This diet meets the Reccommended Daily Dietary Allowances Inpatient: Certain whole, undamaged fresh fruits and vegetables are allowed as long as they are thorou ghly washed with water by care provider or family member. Do not use soap. Items that may be eaten PEELED: applecarrotkiwimelonspeach avocadocucumberlemononionpear bananagarliclimeorangepineapple cantaloupegrapefruitmangopapayasquash Items that may be eaten UNPEELED: apricotcherriesprunesother prepackaged dried fruits stephens peppergrapes (no stems)radish blueberriesgreen beansraisins celeryplumtomato Items that may be eater only after COOKED or PROCESSED: blackberrycauliflowermushrooms broccolileafy greensraspberries bulk dried fruitslettucespinach cabbagemarion berriesstrawberries Only pasteurized milk and milk products pasteurized yogurt is allowed at all times No aged cheeses (Brie, blue) May not go to restaurant; No restaurant foods Soda, juice and drinks in single serve containers only no drinks from "fountain" dispensers No "bulk" food: items in cans or sealed packages only Meats should be fully cooked until well done, no smoked fish No miso or tempeh No moldy or out-dated foods, no "fresh" salsa or salad dressing Activity Avoid sick contacts and crowded areas. Practice good handwashing. Do not drive while taking medications for nausea, anxiety or pain. Destination: Destination: Home Condition on Discharge Good Discharge Follow Up- Facility MD to follow Dr Renee's office at [facility] on 12/07/11 for a neulasta injection at 10:50AM. They will then arrange for you to have follow appointments for labs and blood tr ansfusions if needed twice a week until your counts recover. Dr Martinez office will call you to arrange for follow up and for more chemotherapy at [facility]. Your Follow-Up Plan Follow-up information has not been specified. Other Discharge Orders and Instructions Call the BMT clinic ([phone]) or BMT person on-call ([phone]) for: Any temp > 100.4 Nausea/vomiting unresponsive to compazine or ativan Significant diarrhea despite Imodium Inability to drink at least 2 liters of fluid daily Bleeding Over the counter Medication- use as needed: __ Benadryl (Diphenhydramine) 25 mg by mouth every 6 hours as needed for sleep, itching, na usea or restlessness. __ Antacids- One ounce or one tablet every 2-4 hours as needed for heartburn. Call you doc tor if heartburn persists or isn t relieved with this medication. __ Laxative- Senokot-S one to two twice a day as needed. This is a medication you can use to soften your stools and decrease constipation. Call your doctor if the above measures do not relieve your constipation. *Avoid all enemas and suppositories* __ Anusol Cream- Apply a small amount to external rectal area as needed for hemorrhoidal di scomfort. Do not apply internally. Call you doctor for persistent discomfort, bleeding or pain. __ Lubriderm lotion- apply to skin twice a day as needed to treat dry skin __ Eucerin Cream apply to skin twice a day as needed to treat dry skin. __ Sunscreen as needed SPF 15 or greater. Apply to sun-exposed skin before exposure t o direct sunlight or outside activities. Leukopenic Precautions When your white blood cell count (WBCs) get too low, you are at great risk for infection. To protect you, we will follow leukopenic precaution guidelines. Leukopenic precautions are a special form of isolation. This handout will tell you what to expect and what you can do to help. We will put a sign on your door. It says "Compromised Host Isolation." It is to remind st aff and visitors to take special care. At home: When you are at home, you need to avoid crop farmers wds and people with infections. You will need to wear a mask when you come to hospital. This includes when you are going t o and from clinic or other parts of the hospital. At home, avoid crowded places like shoppin g malls and theaters. If you must go, wear a mask. No one with a cold, flu, diarrhea, or infections is to visit you at home. Please screen all of your visitors. It is best to limit visitors until your WBCs are up again. Children are at a particular ri sk since they may be exposed to illness at school and play. Talk with your nurse and doctor about your own needs for having visitors. We will help you decide what makes most sense fo r you. While in clinic everyone entering your room must wash their hands well before touching anyt jhonny in the room - including you! Remind visitors or staff who may forget. At home: Anuradha nue frequent handwashing. It is a good idea to ask visitors to wash their hands when they a rrive. We will not give you any suppositories or do rectal exams. If someone should start to do e ither of these, tell them that your are on leukopenic precautions. At home: Do not use supp ositories. Do not use tampons or douche. If your blood clotting factors are also low, we will not give you injections. You also viktoriya uldn't have any medicines that contain aspirin. If an IV is taken out, we will apply pressu re to the site for five full minutes. All of these precautions are to reduce the risk of yo ur bleeding. At home: If you cut or scrape yourself, apply pressure with a clean gauze pad for five full minutes. Watch bruises for swelling and size. Report unusual bleeding, black stools, or changes in vision to your doctor. You will be on a Low Bacteria Diet. This means no salads or raw foods. Peeled fruits are okay. You will not be able to have fresh plants or hinojosa in your home. They harbor fungus and bugs. You may want to place plants in a separate room until your WBC count improves. Use go od judgement. You can drink regular tap water. Change your glass, water, and straw at least every four h ours. Remember to use only clean utensils or glasses. Don't share drinks or food with other s from the same glass or plate. Pets are a special problem at home. They can carry diseases that you may catch. If you to uch them, wash your hands well afterwards. Don't let them sleep in or on your bed. Try to have someone else take care of pet waste (dony litter, etc.) Call Your Doctor Call your doctor right away if you have any of the following: Any temp > 100.4 Nausea/vomiting unresponsive to compazine or ativan Significant diarrhea despite Imodium Black stools Changes in vision Inability to drink at least 2 liters of fluid daily Bleeding Other signs of infection Bleeding Precautions Platelets help blood to clot. A normal platelet count 150-400k. A low platelet count mean s you are at risk for bleeding. Thrombocytopenic is another term for having a low platelet count. Thrombocytopenic precautions are rules we follow to lower your risk of bleeding. We need your help to carry them out. Some drugs like aspirin lower clotting even further. You will not be given aspirin or othe r drugs that would increase your bleeding risk. When at home, you should not take rectal temperatures or give rectal suppositories or enema s or vaginal douches. If you believe you need to do any of the above, check first with your doctor. It is important that you not get constipated. You should be taking a stool softener or lax ative. Let us know if you need something more or different. Do not use blade razors to shave. Electric razors are okay. Do not bend over so that your head is lower than your shoulders. Bend with your knees and keep your head up. If you need to blow your nose, do it gently. If you have had a nose bleed, be careful not to blow the clot loose. Don't wear tight clothes. This includes underwear with tight elastic, tight jeans, etc. If you need to have your bladder catheterized, we will use a straight in-and-out cath. You should not have a catheter left in place. Ask for help to get out of chair/bed if you are at all unsteady. Don't do anything that pu ts you at risk for a fall or a bump. Walk more slowly than usual so that you don't knock ag ainst furniture or equipment. Use a cane or walker if you need to. We will take special care if you must have treatments that involve injections. If you must have an IV, an injection, or a bone marrow aspiration, we will hold pressure over the site for five minutes after the needle is out. At home, watch for blood in your stool and urine. If you see any signs of blood, report to your doctor. Do not engage in sexual intercourse Do not floss your teeth if your platelets are less than 100k. Do not brush your teeth with a toothbrush if your platelets are less than 50k (use a soft toothette instead) Report any of the following right away: Increased bruising. Bleeding of the gums that doesn't stop right away. Nosebleeds that continue after two minutes of pressure is applied. Black or bloody stools. Vomit that looks like it contains coffee grounds. Cloudy or reddish urine. Petechia (small bright red spots on your skin). Greater than normal vaginal bleeding. Changes in neurologic signs (like drowsiness or vision problems) These rules are designed to protect and monitor you for bleeding. We need your help in anila ing them work. If you have any questions, please ask your nurse or doctor. We will be happ y to talk with you further. COMPLETE METABOLIC SET (NA,K,CL,CO2,BUN,CREAT,GLUC,CA,AST,ALT,BILI TOTAL,ALK PHOS,ALB,PROT TOTAL) MAGNESIUM, PLASMA PHOSPHORUS, PLASMA URIC ACID, PLASMA BILIRUBIN DIRECT LDH TOTAL, PLASMA Outstanding labs/studies: CSF studies from 12/03/11 are still pending. Attending Physician: Dylan Martinez MD Greater than 35 minutes spent arranging discharge, medications and follow up Discharging Physician: GURPREETANALISA GOODMAN PA-C [facility] [id number] [facility] Mailcode: [id number] [place] [facility] [id number] documented in this enc ounter Discharge Instructions Instructions Neeta Gaines RN - 12/03/2011CASE MANAGEMENT ARRANGED SERVICES; You have an appointment for Wednesday12/07/11 at 10:50am for your Neulasta. They will also be s eeing you 2-3 times a week for your lab draws and if any transfusions are needed you will ge t them there. Address for appointment is [address] [place] [address]. And the phone number is . Directions from the Primary office is to turn right off [address] on and follow to Will and . You will need to seek any medical attention for any acute issues to [facility]. Additional Instructions: Check your oral temperature twice a day and whenever you feel like you may have chills or a fever. Drink at least 2 Liters of fluids per day to prevent dehydration. Follow a low bacteria diet. Shower daily and WASH YOUR HANDS frequently. Rinse out your mouth with normal saline or salt water at least 4x/day. Make sure to brush your teeth at least 2x/day and as needed after meals. Cover your central line when showering/bathing. Refrain from prolonged periods of time in the sun and make sure you ALWAYS wear sunscreen w hen outdoors. Clean surfaces with antibacterial wipes. No plants or hinojosa. Wear a mask when around large groups of people. NO SICK CONTACTS! If this cannot be avoided and you suspect someone may be even mildly ill, have them wear a mask or wear one yourself. Stay active! Perform short periods of activity, then make sure to take time for rest. Call if you have any questions! [phone] Discharge Nurse: NEETA GAINES Date: 12/06/2011 Discharge Time: 12:22 PM documented in this encounter Medications at Time of Discharge + + + +---------+ + + | Medication | Sig | Dispensed | Refills | Start | End Date | | | | | | Date | | + + + +---------+ + + | | Take 1 Tab by mouth | 30 Tab | 1 | 12/03/19 | | | diphenoxylate-atropi | twice daily as | | | 12 | | | ne 2.5-0.025 mg Oral | needed for diarrhea. | | | | | | Tablet | | | | | | + + + +---------+ + + | ergocalciferol | Take 50,000 Units by | | 0 | | | | (VITAMIN D) 50,000 | mouth every seven | | | | | | unit Oral Capsule | days. | | | | | + + + +---------+ + + | LORazepam 0.5 mg | Take 1-2 Tabs by | 30 Tab | 0 | 12/03/19 | | | Oral | mouth every four | | | 12 | | | TabletIndications: | hours as needed for | | | | | | Burkitt's lymphoma | anxiety (nausea, | | | | | | (HCC) | vomiting). | | | | | + + + +---------+ + + | Omeprazole 20 mg | Take 1 Tab by mouth | 30 Tab | 3 | 12/04/19 | | | Oral Tablet, Delayed | once daily. | | | 12 | | | Release (E.C.) | | | | | | + + + +---------+ + + | polyethylene | Take 1 Packet by | | 0 | 12/03/19 | | | glycol (MIRALAX) 17 | mouth once daily as | | | 12 | | | gram Oral Powder in | needed. For | | | | | | Packet | constipation. | | | | | | | Available over the | | | | | | | counter | | | | | + + + +---------+ + + | prochlorperazine 5 | Take 1-2 Tabs by | 30 Tab | 2 | 12/04/19 | | | mg Oral | mouth every four | | | 12 | | | TabletIndications: | hours as needed for | | | | | | Burkitt's lymphoma | nausea/vomiting. Max | | | | | | (HCC) | dose: 40 mg/day | | | | | + + + +---------+ + + | senna-docusate | Take 1-2 Tabs by | | 0 | 12/03/19 | | | 8.6-50 mg Oral | mouth every twelve | | | 12 | | | Tablet | hours as needed. For | | | | | | | constipation. | | | | | | | Available over the | | | | | | | counter | | | | | + + + +---------+ + + documented as of this encounter Progress Notes Dylan Martinez MD - 12/05/2011 9:49 PM PSTLeukemia/CHM Attending Inpatient Progress Note: I was present and rounded today with the NPP. I have independently examined and assessed th e patient. I have personally interviewed the patient, reviewed the vitals, history/last 24 hour events and the labs/studies for today.I agree with the NPPassessment and stated pl an of care. See progress note documented by NPP for details of relevant issues and care pl an for today. Primary Diagnosis Burkitt Lymphoma Secondary Diagnosis/Comorbidities Fluid retention Hyperglycemia C. 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 She has been induced with hyper-CVAD R. 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 - resolved, on Allopurinol s/p Rasburicase administration ID: - C. difficile colitis: completed PO Vancomycin course - skin lesions: blood cultures and nasal swab cultures negative, responding to empiric Van comycin (day 5). - prophylaxis: on Levaquine, Bactrim, Acyclovir - diarrhea: on Imodium, avoid dairy products, resolved Breast mass: - unclear if associated to BL or not - preliminary reading of mammogram shows benign lesions, to be reviewed Fluid retention: - diuretics prn Hyperglycemia: - on SSI, worse on steroids Skin lesions: suspicious for Staph/MRSA, but cultures NGSF - blood cultures, nasal swabs negative - responded to empiric Vancomycin on 11/26 Code status: full [facility]: [facility]-up and Neulasta with Dr. Renee, follow-up wit Dr. Hutchins for hyper-CVAD IIA in ~ 3 weeks DYLAN MARTINEZ MD [facility] [address] [place] [address] Mailcode: [id number] [employer] [id number] [facility] DEPARTMENT: [id number]- [facility] Place of Service:- Inpatient Date of Service: 12/05/2011 Suggested CPT: 32677 - Subsequent, Detailed/High complex 35 min Ida Barboza - 12/05/2011 1:03 PM PST Daily NPP Note - Chemotherapy [facility]mit [facility] Provider: Dylan Martinez MD PCP: JING Luis Date of Admission: 11/13/11 Hematologic Malignancy: Burkitts lymphoma Reason for admission: Chemotherapy, R-HyperCVAD started 11/15/11 Chemotherapy Day: Cycle #1B day +4 Subjective: Continues to have swelling in abdomen and back and is no worse then it was yest erday. Objective: Last Vitals: BP 133/90 | Pulse 76 | Temp 36.4 C (97.5 F) | RR 18 | Ht 162 cm (5' 3.78") | Wt 93.169 kg (205 lb 6.4 oz) | SpO2 96% | BMI 35.50 kg/(m^2) 24 Hour Vital Min/Max: Systolic (24hrs), Av mmHg, Min:131 mmHg, Max:175 mmHg Diastolic (24hrs), Av mmHg, Min:76 mmHg, Max:92 mmHg Pulse Min: 58 Max: 81 Temp Min: 36.3 C (97.3 F) Max: 36.8 C (98.3 F) Resp Min: 16 Max: 18 SpO2 Min: 93 % Max: 98 % Intake/Output Summary (Last 24 hours) at 12/05/11 1303 Last data filed at 12/05/11 1200 Gross per 24 hour Intake 4168 ml Output 7600 ml Net -3432 ml Physical Exam: General: This is a female in no acute distress sitting up at the edge of [facility] bed. HEENT: Sclerae anicteric. Mucosa pink and moist without erythema or exudate. Skin: 3 discrete, improving minimally erythematous, lesions on L low back near BMBX site, 1 in pubic area and 1 on R leg-all three improved with less induration. Chest: Clear to ausculation bilaterally. Normal effort. CV: RRR, no murmurs. Abdomen: S/NT/ND, NABS. Previous surgical sites c/d/i with no surrounding erythema. Extremities: Pulses strong and equal bilaterally. No c/c. 1+ DEV NeuroPsych: Alert and oriented x 3. Grossly nonfocal exam. CVC: RUE PICC line, clean dry and without surrounding erythema Recent Labs Basename 12/05/11 0010 12/04/11 0025 12/03/11 0037 12/02/11 0017 12/01/11 0115 WBC 2.6* 5.9 6.1 -- -- RBC 2.99* 3.14* 3.18* -- -- HB 8.2* 8.7* 8.9* -- -- HCT 24.2* 25.6* 26.0* -- -- PLT 384 326 252 -- -- NEUTROPERC 84* 85* 57 -- -- BANDPCT -- -- 25* 13* 13* LYMPHPERC 7* 6* 6* -- -- MONOPERC 9* 9* 2 -- -- BASOPERC 0 0 0 -- -- EOSPERC 0* 0* 0* -- -- Recent Labs Basename 12/05/11 0804 12/05/11 0010 12/04/11 2113 12/04/11 0025 12/03/11 0037 NA -- 139 -- 139 138 K -- 3.2* -- 3.7 3.5 CL -- 96* -- 98 99 BICARB -- 36* -- 33* 29 BUN -- 10 -- 6 4* CR -- 0.56* -- 0.59* 0.55* GLU 216* 155* 189* -- -- CA -- 8.5* -- 8.4* 8.1* AST -- 32 -- 47* 46* ALT -- 95* -- 94* 87* AP -- 133* -- 144* 144* TBILI -- 0.4 -- 0.6 0.5 TP -- 5.3* -- 5.4* 5.5* ALB -- 2.8* -- 2.9* 2.9* Labs: Lab Results Component Value Date MG 2.0 12/05/2011 Meds: Reviewed on rounds, see current MAR for medication list Assessment: Hematology: History: (Per Dr. Hutchins's H&P) Ms. Young was in her usual good state of health until the later part of August 2011 when s jerrica developed some abdominal pain. It initially started on her right lateral side and she eden cribed it as sharp and constant. It was associated with a more generalized abdominal pain an d some sweats. She was seen in her local ED on 2010 where she was thought to have a urinary tract infect and was treated with a course of ciprofloxacin and hydrocodone. She developed some nausea with dry heaves and was seen by her PCP on 09/09/2011. She was susan gnosed with diabetes and started on glipizide and Glargine. She was also started on lisinopr il for hypertension. She continued to have nausea with emesis prompting a return visit to [facility] PCP office on 09/30/2011. She continued to have abdominal pain and had an abdominal ultras ound on 10/01/2011 that showed multiple fluid filled structures with some internal echoes lynne t were adjacent to the pancrease. She was also noted to have a fatty liver. She had a follow -up abdomen/pelvic CT scan on 10/05/2011 that showed numerous masses in the retroperitoneum. The largest of the masses measured 10 cm. She was seen by Dr. Jonathan Aranda, Surgery, for further evaluation of her mass. She preferre d the procedure be done at [facility] and she was referred to Dr. Osiel Almanza. She was seen on 10/02 for her initial evaluation and then she underwent a laparoscopic exploration of her a bdomen on 11/10/2010. biopsy of the mass on 11/10/2010. There was diffuse peritoneal studding seen as well as low volume ascites. She had a normal appearing gall bladder. Biopsies of her right upper and quadrant abdominal wall nodules were obtained. Her ascites was drained and sent for cytology. 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 She currently notes some drenching n ight sweats and fatigue. Her abdomen is tender and continues to have some nausea with emesis . She is able move her bowels. She denies any fevers, chills or cough. She denies any visual changes or focal neurologic symptoms. She has some chest tightness that is not related to a ctivity. She has lost 40 lbs over the past 2 months that is unintentional. She has anorexia but is able to each some. Before 08/2011, she was not taking any routine medications Patient was admitted from clinic for treatment. Current Heme issues: -New Burkitt's lymphoma, currently Day 4 of Cycle 1B and day 21 hyper-cvad cycle 1A. -Started cycle B 12/02 then follow up in [place] area. -CBC reviewed and noted for recovery. -2/2 LP with IT cytarabine done with CSF PENDING -12/04/11 MTX 0.44. - 12/04/11 Mammogram completed to f/u left breast soft tissue nodules seen on 11/14/11 CT scan . Shows 2 nodules in the left breast that have benign mammographic features. However assedwardo hernández states that this was an incomplete study needing additional imaging/comparison. Reque st was sent for out side studies to compare with current imaging. Needs to be followed up i n future OP setting or in subsequent admissions. Hospitalization Heme issues: 51 yo F with retroperitoneal node c/w burkitts. -biopsy from node on 11/09/10EBV positive lymphoma, FISH t(8:14) with IgHMyc fusion c/w burki tts lymphoma -BM Bx 11/13/11 Normocellular marrow with trilineage hematopoiesis, RADHA -LP with IT MTX under fluoro 11/18 (done under fluoro d/t pt body habitus with significant s acral edema and inability to get into position d/t signficantly enlarged abdomen) and 11/23 N ED -Staging CT scans CAP 11/14/11: 1. Interim increase in mediastinal, hilar, retroperitoneal and mesenteric adenopathy yaneth tible with progression of disease. 2. Wall thickening of the cecum, ascending colon through the mid transverse colon, compatible with colitis, infectious or inflammatory. 3. Several p ulmonary groundglass nodules, which may be old/post inflammatory, however may represent aty pical infection such as fungal, particularly if the patient is immunocompromised. 4. Left br east soft tissue nodules may represent intramammary lymph nodes. -Started Dexamethasone 40mg daily (divided into 2 doses) 11/14/11, continued through chemoth erapy completion. Started chemotherapy HyperCVAD+R 11/15/11 (held Rituxan to end given high t umor burden). Chemotherapy regimen: Pt received Cycle 1A with cytoxan 300 mg/m2 IV q12 hr x 6 doses with mesna IV CI over 3 days for bladder protection. She is also receiving dexamethasone 40 mg po daily days 1 - 4 . She is further scheduled to receive doxorubicin 50 mg/m2 IVP on day 4 () and vincristine 2 mg IVP on days 4 (11/19/11) and 11 (11/26/11). Anticipate either da shonda Neupogen or single dose Neulasta beginning 24 hours after chemotherapy completes pending pt's discharge plan. Continue IV hydration, premeds and antiemetics as ordered. Monitor fo r acute toxicities. Pt receiving Cycle 1B with Methylprednisolone 50 mg IV q12 hours x 6 doses on days 1 throug h 3. She will also receive Methotrexate 200mg/m 2 IV over 2 hours on day 1. This will be fol lowed by Methotrexate 800 mg/m 2 IV over 22 hours. Twelve hours after the conclusion of Meth otrexate infusion, pt will begin Leucovorin 15 mg IV Q 6 hrs until directed to stop. MTX lev els will be drawn daily and leucovorin will continue until Methotrexate level is < 0.05 uL. Pt will also receive Cytarabine 3000 mg/m 2 IV over 2 hours q12 hrs X 4 doses on days 2 and 3, beginning after methotrexate completed; and Pred Forte Eye drops (1%) 2 drops to each ey e q6 hrs from day 2 through day 6 to prevent chemical conjunctivitis. IV hydration, premeds and antiemetics as ordered. Monitor for acute toxicities. Growth factor: Will receive Neulasta injection on 12/07/[address] Renee's office Labs: Continue to check CBC daily Transfusion parameters: Transfuse PRBCs for HCT <24% Transfuse PPH for platelet count <10,000 sooner PRN s/s bleeding. Cardiovascular: Current cardiovascular issues: -restarted OP lisinopril 10mg daily with elevated BP's. Previously held on admit with hoTN Hospitalization CV issues: -admitted from the clinic with mild hypotension 100 systolic -hold outpatient lisinopril 10mg on admit. -order TTE to evaluate baseline function - LVEF 60-65% -Pt with significant fluid overload, now resolving with aggressive diuresis. Pulmonary: Current pulmonary issues: -No acute issues and sats stable on RA Hospitalization pulmonary issues: As above Imaging: no current imaging GI: Current GI issues: -Loose stools improved with scheduled imodium and treatment for C Diff (11/16 CDiff positive and 11/23 CDiff negative). Start lomotil ATC x 3 days but with near resolution switched to P RN. Stopped PO vanco 12/02 and contact precautions given 48 hours with less/no stool. -holding PPI while on MTX, will resume as OP. Hospitalization GI issues: -N/V, increased marinol to 5mg TID with adequate response. -worsening GERD sxs, increased PPI to BID and started carafate and now improved. PPI stoppe d until after HD MTX -abdominal and pelvic adenopathy with trace ascites based on reports of previous imaging. -CT scan of abdomen, pelvis 11/15/11 demonstrates increasing/coalescing adenopathy in abdome n. Also noted for colitis in cecum/ascending colon -noted to be C diff positive from 11/16/11 -Severe abdominal distention related to disease and worsened with fluid overload, now resol olivier. 11/30 US negative ascites. Receiving: PRN antiemetics, pain control LFTs : wnl Infectious Disease: See current MAR for antimicrobials. Current issues/Bacterial: -Afebrile since admission. Scheduled to receive prophylactic levofloxacin upon completion of chemotherapy. If has fever would initiate work up with cultures/cxr, but in light of ira very of WBC would consider evaluation and not automatically starting broad spectrum coverage unless looks ill/ - was started on IV vancomycin d/t presence of 3 skin lesions that were concerning for cell ulitus. Improved on IV vancomycin and stopped 12/04/11. -C-diff is positive by PCR 11/16/11, so started on vancomycin 125 mg po QID. Repeat CDiff ne melindaive. Stopped PO vanco 12/02 and contact precautions given 48 hours with less/no stool. Fungal: Prophylactic fluconazole. Viral: Prophylactic Acyclovir PCP: Prophylactic Bactrim stopped until after HD MTX Pertinent positive culture: none Pertinent negative cultures: none Fluid/Electrolyte/Nutrition: See I/O above. Current diet: low bacteria, no dairy. Tolerating 100% of meal(s) with 3.8L po fluid intake yesterday. Encourage po intake as tolerated with goal of 2L of po fluids daily. MIVF: none at this time TPN: not required at this time Labs: Electrolytes reviewed and no repletion required. -No e/o TLS and frequent labs dc'd. -received allopurinol and IVF through chemotherapy, now completed Renal function: Cr elevated 1.6 on admission, now resolved. Stop IVF with completion of ch emotherapy. SCr wnl Other: Weight is significantly increased from admission, rechecked on different scale. I>O, successfully diuresed on 11/18 and continues diuresis daily after assessment. Fluid overload improved after aggressive diuresis. Became fluid overloaded again with start of IVF's with cycle #1b, diuresing with lasix. Endocrine: Originally diagnosed with diabetes September 2011, remained on glipizide, howeve r CBG's have been low upon admission. Hold all oral medications. Has mild SSI if needed acuna teodoro patient may not be diabetic, instead hyperglycemic given underlying malignancy. CBG's mi nimally elevated with steroids. Will not discharge home on any diabetic medication. Dispo: Patient is from [place], [place] and utilizes [facility]. Currently has OHP application pending. Patient requesting to have her care at [facility]. Currently working to have local oncologist to follow patient between chemotherapy cycles. Will be able to have acycl ovir, levaquin, Nystatin, omeprazole and Compazine filled at [facility] with no co-pay. Will send the rest of the prescriptions with her to be filled at the [facility]. GURPREET NORWOOD PA-C [facility] [id number] [facility] Mailcode: [id number] [address] [facility] [id number] Dylan Morton MD - 12/04/2011 10:28 PM PSTLeukemia/CHM Attending Inpatient Progress Note: I was present and rounded today with the NPP. I have independently examined and assessed th e patient. I have personally interviewed the patient, reviewed the vitals, history/last 24 hour events and the labs/studies for today.I agree with the NPPassessment and stated pl an of care. See progress note documented by NPP for details of relevant issues and care pl an for today. Primary Diagnosis Burkitt Lymphoma Secondary Diagnosis/Comorbidities Fluid retention Hyperglycemia C. 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 She has been induced with hyper-CVAD R. BL: - sporadic case, HIV negative, no TECHNICAL INSTRUCTOR COURSE DEVELOPER involvement - day 20 of hyper-CVAD/Rituxan 1A, with improving counts and day 3 of hyper-CVAD 1B - monitoring MTX levels, Leucovorin rescue - Second IT on 2/2 - transfusion per guidelines Tumor Lysis. - resolved, on Allopurinol s/p Rasburicase administration ID: - C. difficile colitis: completed PO Vancomycin course - skin lesions: blood cultures and nasal swab cultures negative, responding to empiric Van comycin (day 5). - prophylaxis: on Levaquine, Bactrim, Acyclovir - diarrhea: on Imodium, avoid dairy products, resolved Breast mass: - unclear if associated to BL or not - request records, Mammogram pending Fluid retention: - diuretics prn Hyperglycemia: - on SSI, worse on steroids Skin lesions: suspicious for Staph/MRSA, but cultures NGSF - blood cultures, nasal swabs negative - responded to empiric Vancomycin on 11/26 Code status: full DYLAN MARTINEZ MD [facility] [id number] [facility] Mailcode: [id number] [place] [address] [facility] DEPARTMENT: [id number]- [facility] FACULTY MPV Place of Service:- Inpatient Date of Service: 12/04/2011 Suggested CPT: 47140 - Subsequent, Detailed/High complex 35 min Ida Barboza - 12/04/2011 8:39 AM PST Daily NPP Note - Chemotherapy [facility] Provider: Dylan Martinez MD PCP: JING Luis Date of Admission: 11/13/11 Hematologic Malignancy: Burkitts lymphoma Reason for admission: Chemotherapy, R-HyperCVAD started 11/15/11 Chemotherapy Day: Cycle #1B day +3 Subjective: Has noticed more swelling with start of chemo in her legs, abdomen and lower ba ck. Objective: Last Vitals: BP 149/94 | Pulse 62 | Temp 36.3 C (97.3 F) | RR 16 | Ht 162 cm (5' 3.78") | Wt 93.985 kg (207 lb 3.2 oz) | SpO2 97% | BMI 35.81 kg/(m^2) 24 Hour Vital Min/Max: Systolic (24hrs), Av mmHg, Min:132 mmHg, Max:159 mmHg Diastolic (24hrs), Av mmHg, Min:74 mmHg, Max:103 mmHg Pulse Min: 58 Max: 79 Temp Min: 36.3 C (97.3 F) Max: 36.6 C (97.9 F) Resp Min: 16 Max: 16 SpO2 Min: 94 % Max: 100 % Intake/Output Summary (Last 24 hours) at 12/04/11 0839 Last data filed at 12/04/11 0700 Gross per 24 hour Intake 8608 ml Output 6525 ml Net 2083 ml Physical Exam: General: This is a female in no acute distress sitting up at the edge of t he bed. HEENT: Sclerae anicteric. Mucosa pink and moist without erythema or exudate. Skin: 3 discrete, erythematous, indurated, painful lesions, one on L low back near BMBX si te, 1 in pubic area and 1 on R leg-all three improved with less induration. Chest: Clear to ausculation bilaterally. Normal effort. CV: RRR, no murmurs. Abdomen: S/NT/ND, NABS. Previous surgical sites c/d/i with no surrounding erythema. Extremities: Pulses strong and equal bilaterally. No c/c/e NeuroPsych: Alert and oriented x 3. Grossly nonfocal exam. CVC: RUE PICC line, clean dry and without surrounding erythema Recent Labs Basename 12/04/11 0025 12/03/11 0037 12/02/11 0017 12/01/11 0115 WBC 5.9 6.1 5.6 -- RBC 3.14* 3.18* 3.19* -- HB 8.7* 8.9* 8.8* -- HCT 25.6* 26.0* 25.8* -- PLT 326 252 182 -- NEUTROPERC 85* 57 56 -- BANDPCT -- 25* 13* 13* LYMPHPERC 6* 6* 14* -- MONOPERC 9* 2 8 -- BASOPERC 0 0 0 -- EOSPERC 0* 0* 0* -- Recent Labs Basename 12/04/11 0740 12/04/11 0025 12/03/11 2152 12/03/11 0037 12/02/11 0017 NA -- 139 -- 138 137 K -- 3.7 -- 3.5 3.2* CL -- 98 -- 99 103 BICARB -- 33* -- 29 27 BUN -- 6 -- 4* 2* CR -- 0.59* -- 0.55* 0.56* GLU 180* 170* 155* -- -- CA -- 8.4* -- 8.1* 8.1* AST -- 47* -- 46* 58* ALT -- 94* -- 87* 68* AP -- 144* -- 144* 128* TBILI -- 0.6 -- 0.5 0.4 TP -- 5.4* -- 5.5* 5.1* ALB -- 2.9* -- 2.9* 2.7* Labs: Lab Results Component Value Date MG 1.9 12/04/2011 Meds: Reviewed on rounds, see current MAR for medication list Assessment: Hematology: History: (Per Dr. Hutchins's H&P) Ms. Young was in her usual good state of health until the later part of August 2011 when s he developed some abdominal pain. It initially started on her right lateral side and she eden cribed it as sharp and constant. It was associated with a more generalized abdominal pain an d some sweats. She was seen in her local ED on 2010 where she was thought to have a urinary tract infect and was treated with a course of ciprofloxacin and hydrocodone. She developed some nausea with dry heaves and was seen by her PCP on 09/09/2011. She was susan gnosed with diabetes and started on glipizide and Glargine. She was also started on lisinopr il for hypertension. She continued to have nausea with emesis prompting a return visit to he PCP office on 09/30/2011. She continued to have abdominal pain and had an abdominal ultras ound on 10/01/2011 that showed multiple fluid filled structures with some internal echoes lynne t were adjacent to the pancrease. She was also noted to have a fatty liver. She had a follow -up abdomen/pelvic CT scan on 10/05/2011 that showed numerous masses in the retroperitoneum. The largest of the masses measured 10 cm. She was seen by Dr. Jonathan Aranda, Surgery, for further evaluation of her mass. She preferre d the procedure be done at [facility] and she was referred to Dr. Osiel Almanza. She was seen on 10/02 for her initial evaluation and then she underwent a laparoscopic exploration of her a bdomen on 11/10/2010. biopsy of the mass on 11/10/2010. There was diffuse peritoneal studding seen as well as low volume ascites. She had a normal appearing gall bladder. Biopsies of her right upper and quadrant abdominal wall nodules were obtained. Her ascites was drained and sent for cytology. 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 She currently notes some drenching n ight sweats and fatigue. Her abdomen is tender and continues to have some nausea with emesis . She is able move her bowels. She denies any fevers, chills or cough. She denies any visual changes or focal neurologic symptoms. She has some chest tightness that is not related to a ctivity. She has lost 40 lbs over the past 2 months that is unintentional. She has anorexia but is able to each some. Before 08/2011, she was not taking any routine medications Patient was admitted from clinic for treatment. Current Heme issues: -New Burkitt's lymphoma, currently Day 3 of Cycle 1B and day 20 hyper-cvad cycle 1A. -Started cycle B 12/02 then follow up in [facility]. -CBC reviewed and noted for recovery. -2/2 LP with IT cytarabine done with CSF PENDING Hospitalization Heme issues: 51 yo F with retroperitoneal node c/w burkitts. -biopsy from node on 11/09/10EBV positive lymphoma, FISH t(8:14) with IgHMyc fusion c/w burki tts lymphoma -BM Bx 11/13/11 Normocellular marrow with trilineage hematopoiesis, RADHA -LP with IT MTX under fluoro 11/18 (done under fluoro d/t pt body habitus with significant s acral edema and inability to get into position d/t signficantly enlarged abdomen) and 11/23 N ED -Staging CT scans CAP 11/14/11: 1. Interim increase in mediastinal, hilar, retroperitoneal and mesenteric adenopathy yaneth tible with progression of disease. 2. Wall thickening of the cecum, ascending colon through the mid transverse colon, compatible with colitis, infectious or inflammatory. 3. Several p ulmonary groundglass nodules, which may be old/post inflammatory, however may represent aty pical infection such as fungal, particularly if the patient is immunocompromised. 4. Left br east soft tissue nodules may represent intramammary lymph nodes; however consider mammogra m if not recently performed. Requested follow up mammogram. -Started Dexamethasone 40mg daily (divided into 2 doses) 11/14/11, continued through chemoth erapy completion. Started chemotherapy HyperCVAD+R 11/15/11 (held Rituxan to end given high t umor burden). Chemotherapy regimen: Pt received Cycle 1A with cytoxan 300 mg/m2 IV q12 hr x 6 doses with mesna IV CI over 3 days for bladder protection. She is also receiving dexamethasone 40 mg po daily days 1 - 4 . She is further scheduled to receive doxorubicin 50 mg/m2 IVP on day 4 () and vincristine 2 mg IVP on days 4 (11/19/11) and 11 (11/26/11). Anticipate either da shonda Neupogen or single dose Neulasta beginning 24 hours after chemotherapy completes pending pt's discharge plan. Continue IV hydration, premeds and antiemetics as ordered. Monitor fo r acute toxicities. Pt receiving Cycle 1B with Methylprednisolone 50 mg IV q12 hours x 6 doses on days 1 throug h 3. She will also receive Methotrexate 200mg/m 2 IV over 2 hours on day 1. This will be fol lowed by Methotrexate 800 mg/m 2 IV over 22 hours. Twelve hours after the conclusion of Meth otrexate infusion, pt will begin Leucovorin 15 mg IV Q 6 hrs until directed to stop. MTX lev els will be drawn daily and leucovorin will continue until Methotrexate level is < 0.05 uL. Pt will also receive Cytarabine 3000 mg/m 2 IV over 2 hours q12 hrs X 4 doses on days 2 and 3, beginning after methotrexate completed; and Pred Forte Eye drops (1%) 2 drops to each ey e q6 hrs from day 2 through day 6 to prevent chemical conjunctivitis. IV hydration, premeds and antiemetics as ordered. Monitor for acute toxicities. Growth factor: Will receive Neulasta injection on 12/07/[address] Renee's office Labs: Continue to check CBC daily Transfusion parameters: Transfuse PRBCs for HCT <24% Transfuse PPH for platelet count <10,000 sooner PRN s/s bleeding. Cardiovascular: Current cardiovascular issues: -Without acute issues Hospitalization CV issues: -admitted from the clinic with mild hypotension 100 systolic -hold outpatient lisinopril 10mg for now -order TTE to evaluate baseline function - LVEF 60-65% -Pt with significant fluid overload, now resolving with aggressive diuresis. Pulmonary: Current pulmonary issues: -No acute issues and sats stable on RA Hospitalization pulmonary issues: As above Imaging: no current imaging GI: Current GI issues: -Loose stools continue despite scheduled imodium and treatment for C Diff (11/16 CDiff posit al and 11/23 CDiff negative). Start lomotil ATC x 3 days but with near resolution switched t o PRN. Stopped PO vanco 2/1 and contact precautions given 48 hours with less/no stool. -holding PPI while on MTX, will resume as OP. Hospitalization GI issues: -N/V, increased marinol to 5mg TID with adequate response. -worsening GERD sxs, increased PPI to BID and started carafate and now improved. PPI stoppe d until after HD MTX -abdominal and pelvic adenopathy with trace ascites based on reports of previous imaging. -CT scan of abdomen, pelvis 11/15/11 demonstrates increasing/coalescing adenopathy in abdome n. Also noted for colitis in cecum/ascending colon -noted to be C diff positive from 11/16/11 -Severe abdominal distention related to disease and worsened with fluid overload, resolving . 11/30 US negative ascites. Receiving: PRN antiemetics, pain control LFTs : wnl Infectious Disease: See current MAR for antimicrobials. Current issues/Bacterial: -Afebrile since admission. Scheduled to receive prophylactic levofloxacin upon completion of chemotherapy. If has fever would initiate work up with cultures/cxr, but in light of ira very of WBC would consider evaluation and not automatically starting broad spectrum coverage unless looks ill/ - was started on IV vancomycin d/t presence of 3 skin lesions that were concerning for cell ulitus. Improving on IV vancomycin and will stop after 10 day course. -C-diff is positive by PCR 11/16/11, so started on vancomycin 125 mg po QID. Repeat CDiff ne gative. Will need at least a 14 day course but with continued loose stool plan to continue u ntil resolves. Stopped PO vanco 2/1 and contact precautions given 48 hours with less/no stoo l. Fungal: Prophylactic fluconazole. Viral: Prophylactic Acyclovir PCP: Prophylactic Bactrim stopped until after HD MTX Pertinent positive culture: none Pertinent negative cultures: none Fluid/Electrolyte/Nutrition: See I/O above. Current diet: low bacteria, no dairy. Tolerating 75-100% x 3 meals with 4.3L po fluid inta ke yesterday. Encourage po intake as tolerated with goal of 2L of po fluids daily. MIVF: none at this time TPN: not required at this time Labs: Electrolytes reviewed and no repletion required. -No e/o TLS and frequent labs dc'd. -received allopurinol and IVF through chemotherapy, now completed Renal function: Cr elevated 1.6 on admission, now resolved. Stopped IVF with completion of chemotherapy. SCr wnl Other: Weight is significantly increased from admission, rechecked on different scale. I>O, successfully diuresed on 11/18 and continues diuresis daily after assessment. Fluid overload improved after aggressive diuresis. Weight improving, and is now below admission weight. Endocrine: Originally diagnosed with diabetes September 2011, remained on glipizide, howeve r CBG's have been low upon admission. Hold all oral medications. Has mild SSI if needed acuna teodoro patient may not be diabetic, instead hyperglycemic given underlying malignancy. CBG's mi nimally elevated with steroids. Continue accuchecks and SSI until steroid therapy is comple te. If remains mildly elevated, could consider change in diet to ADA [id number], or adding o ral agent. Dispo: Patient is from [place], [place] and utilizes [facility]. Currently has OHP application pending. Patient requesting to have her care at [facility]. Currently working to have local oncologist to follow patient between chemotherapy cycles. Will be able to have acycl ovir, insulin lispro, levaquin, Nystatin, omeprazole and Compazine filled at [facility] with no co -pay. Will send the rest of the prescriptions with her to be filled at the [facility]. GURPREET NORWOOD PA-C [facility] [address] [facility] Mailcode: [id number] [place] [facility] [id number] Dylan Morton MD - 12/03/2011 6:18 PM PSTLeukemia/CHM Attending Inpatient Progress Note: I was present and rounded today with the NPP. I have independently examined and assessed th e patient. I have personally interviewed the patient, reviewed the vitals, history/last 24 hour events and the labs/studies for today.I agree with the NPPassessment and stated pl an of care. See progress note documented by NPP for details of relevant issues and care pl an for today. Primary Diagnosis Burkitt Lymphoma Secondary Diagnosis/Comorbidities Fluid retention Hyperglycemia C. 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 She has been induced with hyper-CVAD R. BL: - sporadic case, HIV negative, no TECHNICAL INSTRUCTOR COURSE DEVELOPER involvement - day 19 of hyper-CVAD/Rituxan 1A, with improving counts and day 2 of hyper-CVAD 1B - Second IT to-day - transfusion per guidelines Tumor Lysis. - resolved, on Allopurinol s/p Rasburicase administration ID: - C. difficile colitis: on PO Vancomycin - new skin lesions: blood cultures and nasal swab cultures negative, responding to empiric Vancomycin (day 5). - prophylaxis: on Levaquine, Bactrim, Acyclovir - diarrhea: on Imodium, avoid dairy products, improved over past 48 hours Breast mass: - unclear if associated to BL or not - request records, Mammogram pending Fluid retention: - improving, with autodiuresis/IV lasix Hyperglycemia: - on SSI, worse on steroids Skin lesions: suspicious for Staph/MRSA, but cultures NGSF - blood cultures, nasal swabs negative - responded to empiric Vancomycin on 11/26 Code status: full DYLAN MARTINEZ MD [facility] K[facility] [address] [facility] Mailcode: [id number] [place] [address] [facility] DEPARTMENT: [id number] [facility]ACULTY M[facility] Place of Service:- Inpatient Date of Service: 12/03/2011 Suggested CPT: 07440 - Subsequent, Detailed/High complex 35 min Eunice Morgan ANP - 12/03/2011 4:28 PM PST Daily NPP Note - Chemotherapy Ad[facility] Provider: Dylan Martinez MD PCP: JING Luis Date of Admission: 11/13/11 Hematologic Malignancy: Burkitts lymphoma Reason for admission: Chemotherapy, R-HyperCVAD started 11/15/11 Subjective: Anxious about lumbar puncture today otherwise without new issues. Objective: Last Vitals: BP 138/86 | Pulse 60 | Temp 36.3 C (97.3 F) | RR 16 | Ht 162 cm (5' 3.78") | Wt 89.268 kg (196 lb 12.8 oz) | SpO2 99% | BMI 34.01 kg/(m^2) 24 Hour Vital Min/Max: Systolic (24hrs), Av mmHg, Min:103 mmHg, Max:158 mmHg Diastolic (24hrs), Av mmHg, Min:42 mmHg, Max:101 mmHg Pulse Min: 56 Max: 80 Temp Min: 36.2 C (97.2 F) Max: 36.7 C (98.1 F) Resp Min: 16 Max: 18 SpO2 Min: 92 % Max: 99 % Intake/Output Summary (Last 24 hours) at 12/03/11 1628 Last data filed at 12/03/11 1400 Gross per 24 hour Intake 8964 ml Output 5800 ml Net 3164 ml Physical Exam: General: This is a female in no acute distress. HEENT: PERRL. Sclerae anicteric. Mucosa pink and moist without erythema or exudate. Skin: 3 discrete, erythematous, indurated, painful lesions, one on L low back near BMBX si te, 1 in pubic area and 1 on R leg-all three improved with less induration. Chest: Clear to ausculation bilaterally. CV: RRR, no murmurs. Abdomen: S/NT/ND, NABS. Previous surgical sites c/d/i with no surrounding erythema. Extremities: Pulses strong and equal bilaterally. No c/c/e NeuroPsych: Alert and oriented x 3. Grossly nonfocal exam. : Aguilar in place CVC: RUE PICC line, clean dry and without surrounding erythema Recent Labs Basename 12/03/11 0037 12/02/11 0017 12/01/11 0115 WBC 6.1 5.6 4.2* RBC 3.18* 3.19* 3.16* HB 8.9* 8.8* 8.5* HCT 26.0* 25.8* 25.4* PLT 252 182 154 NEUTROPERC 57 56 35* BANDPCT 25* 13* 13* LYMPHPERC 6* 14* 27 MONOPERC 2 8 11* BASOPERC 0 0 0 EOSPERC 0* 0* 0* Recent Labs Basename 12/03/11 1019 12/03/11 0037 12/02/11 0017 12/01/11 0115 NA -- 138 137 139 K -- 3.5 3.2* 3.3* CL -- 99 103 105 BICARB -- 29 27 28 BUN -- 4* 2* 6 CR -- 0.55* 0.56* 0.48* GLU 249* 285* 131* -- CA -- 8.1* 8.1* 8.0* AST -- 46* 58* 35 ALT -- 87* 68* 26 AP -- 144* 128* 73 TBILI -- 0.5 0.4 0.4 TP -- 5.5* 5.1* 4.7* ALB -- 2.9* 2.7* 2.7* Labs: Lab Results Component Value Date MG 1.8 12/03/2011 Meds: Reviewed on rounds, see current MAR for medication list Assessment: Hematology: History: (Per Dr. Hutchins's H&P) Ms. Young was in her usual good state of health until the later part of August 2011 when s jerrica developed some abdominal pain. It initially started on her right lateral side and she eden cribed it as sharp and constant. It was associated with a more generalized abdominal pain an d some sweats. She was seen in her local ED on 2010 where she was thought to have a urinary tract infect and was treated with a course of ciprofloxacin and hydrocodone. She developed some nausea with dry heaves and was seen by her PCP on 09/09/2011. She was susan gnosed with diabetes and started on glipizide and Glargine. She was also started on lisinopr il for hypertension. She continued to have nausea with emesis prompting a return visit to he r PCP office on 09/30/2011. She continued to have abdominal pain and had an abdominal ultras ound on 10/01/2011 that showed multiple fluid filled structures with some internal echoes lynne t were adjacent to the pancrease. She was also noted to have a fatty liver. She had a follow -up abdomen/pelvic CT scan on 10/05/2011 that showed numerous masses in the retroperitoneum. The largest of the masses measured 10 cm. She was seen by Dr. Jonathan Aranda, Surgery, for further evaluation of her mass. She preferre d the procedure be done at [facility] and she was referred to Dr. Osiel Almanza. She was seen on 10/02 for her initial evaluation and then she underwent a laparoscopic exploration of her a bdomen on 11/10/2010. biopsy of the mass on 11/10/2010. There was diffuse peritoneal studding seen as well as low volume ascites. She had a normal appearing gall bladder. Biopsies of her right upper and quadrant abdominal wall nodules were obtained. Her ascites was drained and sent for cytology. 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 She currently notes some drenching n ight sweats and fatigue. Her abdomen is tender and continues to have some nausea with emesis . She is able move her bowels. She denies any fevers, chills or cough. She denies any visual changes or focal neurologic symptoms. She has some chest tightness that is not related to a ctivity. She has lost 40 lbs over the past 2 months that is unintentional. She has anorexia but is able to each some. Before 08/2011, she was not taking any routine medications Patient was admitted from clinic for treatment. Current Heme issues: -New Burkitt's lymphoma, currently day 19 hyper-cvad cycle 1A. -Started cycle B 12/02 then follow up in [place] area. -CBC reviewed and noted for recovery. -2/2 LP with IT cytarabine done with CSF PENDING Hospitalization Heme issues: 51 yo F with retroperitoneal node c/w burkitts. -biopsy from node on 11/09/10EBV positive lymphoma, FISH t(8:14) with IgHMyc fusion c/w burki tts lymphoma -BM Bx 11/13/11 Normocellular marrow with trilineage hematopoiesis, RADHA -LP with IT MTX under fluoro 11/18 (done under fluoro d/t pt body habitus with significant s acral edema and inability to get into position d/t signficantly enlarged abdomen) and 11/23 N ED -Staging CT scans CAP 11/14/11: 1. Interim increase in mediastinal, hilar, retroperitoneal and mesenteric adenopathy yaneth tible with progression of disease. 2. Wall thickening of the cecum, ascending colon through the mid transverse colon, compatible with colitis, infectious or inflammatory. 3. Several p ulmonary groundglass nodules, which may be old/post inflammatory, however may represent aty pical infection such as fungal, particularly if the patient is immunocompromised. 4. Left br east soft tissue nodules may represent intramammary lymph nodes; however consider mammogra m if not recently performed. Requested follow up mammogram. -Started Dexamethasone 40mg daily (divided into 2 doses) 11/14/11, continued through chemoth erapy completion. Started chemotherapy HyperCVAD+R 11/15/11 (held Rituxan to end given high t umor burden). Chemotherapy regimen: Pt receiving cytoxan 300 mg/m2 IV q12 hr x 6 doses with mesna IV CI o teodoro 3 days for bladder protection. She is also receiving dexamethasone 40 mg po daily days 1 - 4 . She is further scheduled to receive doxorubicin 50 mg/m2 IVP on day 4 (11/19/11) and v incristine 2 mg IVP on days 4 (11/19/11) and 11 (11/26/11). Anticipate either daily Neupogen or single dose Neulasta beginning 24 hours after chemotherapy completes pending pt's dischar ge plan. Continue IV hydration, premeds and antiemetics as ordered. Monitor for acute toxic ities. Growth factor: Daily neupogen until ANC >1000 Labs: Continue to check CBC daily Transfusion parameters: Transfuse PRBCs for HCT <24% Transfuse PPH for platelet count <10,000 sooner PRN s/s bleeding. Cardiovascular: Current cardiovascular issues: -Without acute issues Hospitalization CV issues: -admitted from the clinic with mild hypotension 100 systolic -hold outpatient lisinopril 10mg for now -order TTE to evaluate baseline function - LVEF 60-65% -Pt with significant fluid overload, now resolving with aggressive diuresis. Pulmonary: Current pulmonary issues: -No acute issues and sats stable on RA Hospitalization pulmonary issues: As above Imaging: no current imaging GI: Current GI issues: -Loose stools continue despite scheduled imodium and treatment for C Diff (11/16 CDiff posit al and 11/23 CDiff negative). Start lomotil ATC x 3 days but with near resolution switched t o PRN. Stopped PO vanco 2/1 and contact precautions given 48 hours with less/no stool. Hospitalization GI issues: -N/V, increased marinol to 5mg TID with adequate response. -worsening GERD sxs, increased PPI to BID and started carafate and now improved. PPI stoppe d until after HD MTX -abdominal and pelvic adenopathy with trace ascites based on reports of previous imaging. -CT scan of abdomen, pelvis 11/15/11 demonstrates increasing/coalescing adenopathy in abdome n. Also noted for colitis in cecum/ascending colon -noted to be C diff positive from 11/16/11 -Severe abdominal distention related to disease and worsened with fluid overload, resolving . 11/30 US negative ascites. Receiving: PRN antiemetics, pain control LFTs : wnl Infectious Disease: See current MAR for antimicrobials. Current issues/Bacterial: -Afebrile since admission. Scheduled to receive prophylactic levofloxacin upon completion of chemotherapy. If has fever would initiate work up with cultures/cxr, but in light of ira very of WBC would consider evaluation and not automatically starting broad spectrum coverage unless looks ill/ - was started on IV vancomycin d/t presence of 3 skin lesions that were concerning for cell ulitus. Improving on IV vancomycin and will stop after 10 day course. -C-diff is positive by PCR 11/16/11, so started on vancomycin 125 mg po QID. Repeat CDiff ne gative. Will need at least a 14 day course but with continued loose stool plan to continue u ntil resolves. Stopped PO vanco 2/1 and contact precautions given 48 hours with less/no stoo l. Fungal: Prophylactic fluconazole. Viral: Prophylactic Acyclovir PCP: Prophylactic Bactrim stopped until after HD MTX Pertinent positive culture: none Pertinent negative cultures: none Fluid/Electrolyte/Nutrition: See I/O above. Current diet: low bacteria, no dairy. Tolerating 100% x 3 meals with 2.8L po fluid intake yesterday. Encourage po intake as tolerated with goal of 2L of po fluids daily. MIVF: none at this time TPN: not required at this time Labs: Electrolytes reviewed and no repletion required. -No e/o TLS and frequent labs dc'd. -received allopurinol and IVF through chemotherapy, now completed Renal function: Cr elevated 1.6 on admission, now resolved. Stopped IVF with completion of chemotherapy. SCr wnl Other: Weight is significantly increased from admission, rechecked on different scale. I>O, successfully diuresed on 11/18 and continues diuresis daily after assessment. Fluid overload improved after aggressive diuresis. Weight improving, and is now below admission weight. Endocrine: Originally diagnosed with diabetes September 2011, remained on glipizide, howeve r CBG's have been low upon admission. Hold all oral medications. Has mild SSI if needed acuna teodoro patient may not be diabetic, instead hyperglycemic given underlying malignancy. CBG's mi nimally elevated with steroids. Continue accuchecks and SSI until steroid therapy is comple te. If remains mildly elevated, could consider change in diet to ADA 3525-1050, or adding o ral agent. Dispo: Patient is from [place], [place] and utilizes [place] [facility] [employer]. Currently has OHP application pending. Patient requesting to have her care at [facility]. Currently working to have local oncologist to follow patient between chemotherapy cycles. RAHUL Coto ANP [facility] [id number] [facility] Mailcode: [id number] [employer] [phone] Dylan Morton MD - 12/02/2011 6:04 PM PSTLeukemia/CHM Attending Inpatient Progress Note: I was present and rounded today with the NPP. I have independently examined and assessed th e patient. I have personally interviewed the patient, reviewed the vitals, history/last 24 hour events and the labs/studies for today.I agree with the NPPassessment and stated pl an of care. See progress note documented by NPP for details of relevant issues and care pl an for today. Primary Diagnosis Burkitt Lymphoma Secondary Diagnosis/Comorbidities Fluid retention Hyperglycemia C. 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 She has been induced with hyper-CVAD R. 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 Second IT to-horton - transfusion per guidelines Tumor Lysis. - resolved, on Allopurinol s/p Rasburicase administration ID: - C. difficile colitis: on PO Vancomycin - new skin lesions: blood cultures and nasal swab cultures negative, responding to empiric Vancomycin (day 5). - prophylaxis: on Levaquine, Bactrim, Acyclovir - diarrhea: on Imodium, avoid dairy products, improved over past 24 hours Breast mass: - unclear if associated to BL or not - request records, order mammogram Fluid retention: - improving, with autodiuresis/IV lasix Hyperglycemia: - on SSI, worse on steroids Skin lesions: suspicious for Staph/MRSA, but cultures NGSF - blood cultures, nasal swabs negative - responded to empiric Vancomycin on 11/26 Code status: full DYLAN MARTINEZ MD [facility] [id number] [facility] Mailcode: [id number] [employer] [id number] [facility] DEPARTMENT: [id number]- [facility] Place of Service:- Inpatient Date of Service: 12/02/2011 Suggested CPT: 14510 - Subsequent, Detailed/High complex 35 min Eunice Morgan ANP - 12/02/2011 3:45 PM PST Daily NPP Note - Chemotherapy [facility] Provider: Dylan Martinez MD PCP: JING Luis Date of Admission: 11/13/11 Hematologic Malignancy: Burkitts lymphoma Reason for admission: Chemotherapy, R-HyperCVAD started 11/15/11 Subjective: Without new issues. Feeling well today and less loose stool. Objective: Last Vitals: BP 113/62 | Pulse 73 | Temp 36.3 C (97.3 F) | RR 17 | Ht 162 cm (5' 3.78") | Wt 85.276 kg (188 lb) | SpO2 96% | BMI 32.49 kg/(m^2) 24 Hour Vital Min/Max: Systolic (24hrs), Av mmHg, Min:99 mmHg, Max:121 mmHg Diastolic (24hrs), Av mmHg, Min:56 mmHg, Max:69 mmHg Pulse Min: 71 Max: 79 Temp Min: 36.3 C (97.3 F) Max: 37.1 C (98.7 F) Resp Min: 16 Max: 17 SpO2 Min: 96 % Max: 99 % Intake/Output Summary (Last 24 hours) at 12/02/11 1545 Last data filed at 12/02/11 1400 Gross per 24 hour Intake 3795 ml Output 4450 ml Net -655 ml Physical Exam: General: This is a female in no acute distress. HEENT: PERRL. Sclerae anicteric. Mucosa pink and moist without erythema or exudate. Skin: 3 discrete, erythematous, indurated, painful lesions, one on L low back near BMBX si te, 1 in pubic area and 1 on R leg-all three improved with less induration. Chest: Clear to ausculation bilaterally. CV: RRR, no murmurs. Abdomen: S/NT/ND, NABS. Previous surgical sites c/d/i with no surrounding erythema. Extremities: Pulses strong and equal bilaterally. No c/c/e NeuroPsych: Alert and oriented x 3. Grossly nonfocal exam. : Aguilar in place CVC: RUE PICC line, clean dry and without surrounding erythema Recent Labs Basename 12/02/11 0017 12/01/11 0115 11/30/11 0006 WBC 5.6 4.2* 6.1 RBC 3.19* 3.16* 3.37* HB 8.8* 8.5* 9.6* HCT 25.8* 25.4* 27.1* PLT 182 154 107* NEUTROPERC 56 35* 48* BANDPCT 13* 13* 17* LYMPHPERC 14* 27 26 MONOPERC 8 11* 9* BASOPERC 0 0 0 EOSPERC 0* 0* 0* Recent Labs Basename 12/02/11 0017 12/01/11 0115 11/30/11 1813 11/30/11 0006 NA 137 139 -- 138 K 3.2* 3.3* -- 3.1* CL 103 105 -- 106 BICARB 27 28 -- 26 BUN 2* 6 -- 14 CR 0.56* 0.48* -- 0.55* GLU 131* 91 111* -- CA 8.1* 8.0* -- 8.3* AST 58* 35 -- 12* ALT 68* 26 -- 16 AP 128* 73 -- 70 TBILI 0.4 0.4 -- 0.4 TP 5.1* 4.7* -- 5.6* ALB 2.7* 2.7* -- 2.9* Labs: Lab Results Component Value Date MG 1.8 12/02/2011 Meds: Reviewed on rounds, see current MAR for medication list Assessment: Hematology: History: (Per Dr. Hutchins's H&P) Ms. Young was in her usual good state of health until the later part of August 2011 when s jerrica developed some abdominal pain. It initially started on her right lateral side and she eden cribed it as sharp and constant. It was associated with a more generalized abdominal pain an d some sweats. She was seen in her local ED on 2010 where she was thought to have a urinary tract infect and was treated with a course of ciprofloxacin and hydrocodone. She developed some nausea with dry heaves and was seen by her PCP on 09/09/2011. She was susan gnosed with diabetes and started on glipizide and Glargine. She was also started on lisinopr il for hypertension. She continued to have nausea with emesis prompting a return visit to he r PCP office on 09/30/2011. She continued to have abdominal pain and had an abdominal ultras ound on 10/01/2011 that showed multiple fluid filled structures with some internal echoes lynne t were adjacent to the pancrease. She was also noted to have a fatty liver. She had a follow -up abdomen/pelvic CT scan on 10/05/2011 that showed numerous masses in the retroperitoneum. The largest of the masses measured 10 cm. She was seen by Dr. Jonathan Aranda, Surgery, for further evaluation of her mass. She preferre d the procedure be done at [facility] and she was referred to Dr. Osiel Almanza. She was seen on 10/02 for her initial evaluation and then she underwent a laparoscopic exploration of her a bdomen on 11/10/2010. biopsy of the mass on 11/10/2010. There was diffuse peritoneal studding seen as well as low volume ascites. She had a normal appearing gall bladder. Biopsies of her right upper and quadrant abdominal wall nodules were obtained. Her ascites was drained and sent for cytology. 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 She currently notes some drenching n ight sweats and fatigue. Her abdomen is tender and continues to have some nausea with emesis . She is able move her bowels. She denies any fevers, chills or cough. She denies any visual changes or focal neurologic symptoms. She has some chest tightness that is not related to a ctivity. She has lost 40 lbs over the past 2 months that is unintentional. She has anorexia but is able to each some. Before 08/2011, she was not taking any routine medications Patient was admitted from clinic for treatment. Current Heme issues: -New Burkitt's lymphoma, currently day 18 hyper-cvad cycle 1A. -Plan to give cycle B starting today 12/02 then follow up in [facility]. -CBC reviewed and noted for recovery. Hospitalization Heme issues: 51 yo F with retroperitoneal node c/w burkitts. -biopsy from node on 11/09/10EBV positive lymphoma, FISH t(8:14) with IgHMyc fusion c/w burki tts lymphoma -BM Bx 11/13/11 Normocellular marrow with trilineage hematopoiesis, RADHA -LP with IT MTX under fluoro 11/18 (done under fluoro d/t pt body habitus with significant s acral edema and inability to get into position d/t signficantly enlarged abdomen) and 11/23 N ED -Staging CT scans CAP 11/14/11: 1. Interim increase in mediastinal, hilar, retroperitoneal and mesenteric adenopathy yaneth tible with progression of disease. 2. Wall thickening of the cecum, ascending colon through the mid transverse colon, compatible with colitis, infectious or inflammatory. 3. Several p ulmonary groundglass nodules, which may be old/post inflammatory, however may represent aty pical infection such as fungal, particularly if the patient is immunocompromised. 4. Left br east soft tissue nodules may represent intramammary lymph nodes; however consider mammogra m if not recently performed. (will require follow-up) -Started Dexamethasone 40mg daily (divided into 2 doses) 11/14/11, continued through chemoth erapy completion. Started chemotherapy HyperCVAD+R 11/15/11 (held Rituxan to end given high t umor burden). Chemotherapy regimen: Pt receiving cytoxan 300 mg/m2 IV q12 hr x 6 doses with mesna IV CI o teodoro 3 days for bladder protection. She is also receiving dexamethasone 40 mg po daily days 1 - 4 . She is further scheduled to receive doxorubicin 50 mg/m2 IVP on day 4 (11/19/11) and v incristine 2 mg IVP on days 4 (11/19/11) and 11 (11/26/11). Anticipate either daily Neupogen or single dose Neulasta beginning 24 hours after chemotherapy completes pending pt's dischar ge plan. Continue IV hydration, premeds and antiemetics as ordered. Monitor for acute toxic ities. Growth factor: Daily neupogen until ANC >1000 Labs: Continue to check CBC daily Transfusion parameters: Transfuse PRBCs for HCT <24% Transfuse PPH for platelet count <10,000 sooner PRN s/s bleeding. Cardiovascular: Current cardiovascular issues: Hospitalization CV issues: -admitted from the clinic with mild hypotension 100 systolic -hold outpatient lisinopril 10mg for now -order TTE to evaluate baseline function - LVEF 60-65% -Pt with significant fluid overload, now resolving with aggressive diuresis. Pulmonary: Current pulmonary issues: -No acute issues and sats stable on RA Hospitalization pulmonary issues: As above Imaging: no current imaging GI: Current GI issues: -Loose stools continue despite scheduled imodium and treatment for C Diff (11/16 CDiff posit al and 11/23 CDiff negative). Start lomotil ATC x 3 days but with near resolution switched t o PRN. Will stop PO vanco tomorrow given 48 hours with less/no stool. Hospitalization GI issues: -N/V, increased marinol to 5mg TID with adequate response. -worsening GERD sxs, increased PPI to BID and started carafate and now improved. PPI stoppe d until after HD MTX -abdominal and pelvic adenopathy with trace ascites based on reports of previous imaging. -CT scan of abdomen, pelvis 11/15/11 demonstrates increasing/coalescing adenopathy in abdome n. Also noted for colitis in cecum/ascending colon -noted to be C diff positive from 11/16/11 -Severe abdominal distention related to disease and worsened with fluid overload, resolving . 11/30 US negative ascites. Receiving: PRN antiemetics, pain control LFTs : wnl Infectious Disease: See current MAR for antimicrobials. Current issues/Bacterial: -Afebrile since admission. Scheduled to receive prophylactic levofloxacin upon completion of chemotherapy. If has fever would initiate work up with cultures/cxr, but in light of ira very of WBC would consider evaluation and not automatically starting broad spectrum coverage unless looks ill/ - was started on IV vancomycin d/t presence of 3 skin lesions that were concerning for cell ulitus. Improving on IV vancomycin and will stop after 10 day course. -C-diff is positive by PCR 11/16/11, so started on vancomycin 125 mg po QID. Repeat CDiff ne gative. Will need at least a 14 day course but with continued loose stool plan to continue u ntil resolves.Will stop PO vanco tomorrow given 48 hours with less/no stool. Fungal: Prophylactic fluconazole. Viral: Prophylactic Acyclovir PCP: Prophylactic Bactrim stopped until after HD MTX Pertinent positive culture: none Pertinent negative cultures: none Fluid/Electrolyte/Nutrition: See I/O above. Current diet: low bacteria, no dairy. Tolerating 100% x 3 meals with 3.9L po fluid intake yesterday. Encourage po intake as tolerated with goal of 2L of po fluids daily. MIVF: none at this time TPN: not required at this time Labs: Electrolytes reviewed and no repletion required. -No e/o TLS and frequent labs dc'd. -received allopurinol and IVF through chemotherapy, now completed Renal function: Cr elevated 1.6 on admission, now resolved. Stopped IVF with completion of chemotherapy. SCr wnl Other: Weight is significantly increased from admission, rechecked on different scale. I>O, successfully diuresed on 11/18 and continues diuresis daily after assessment. Fluid overload improved after aggressive diuresis. Weight improving, and is now below admission weight. Endocrine: Originally diagnosed with diabetes September 2011, remained on glipizide, howeve r CBG's have been low upon admission. Hold all oral medications. Has mild SSI if needed acuna teodoro patient may not be diabetic, instead hyperglycemic given underlying malignancy. CBG's mi nimally elevated with steroids. Continue accuchecks and SSI until steroid therapy is comple te. If remains mildly elevated, could consider change in diet to ADA 4576-1233, or adding o ral agent. Dispo: Patient is from [place], [place] and utilizes [employer]. Currently has OHP application pending. Patient requesting to have her care at [facility]. Currently working to have local oncologist to follow patient between chemotherapy cycles. RAHUL Coto ANP [facility] [id number] [facility] Mailcode: [id number] [employer] [id number] Dylan Morton MD - 12/01/2011 6:30 PM PSTLeukemia/CHM Attending Inpatient Progress Note: I was present and rounded today with the NPP. I have independently examined and assessed th e patient. I have personally interviewed the patient, reviewed the vitals, history/last 24 hour events and the labs/studies for today.I agree with the NPPassessment and stated pl an of care. See progress note documented by NPP for details of relevant issues and care pl an for today. Primary Diagnosis Burkitt Lymphoma Secondary Diagnosis/Comorbidities Fluid retention Hyperglycemia C. 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 She has been induced with hyper-CVAD R. 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 - resolved, on Allopurinol s/p Rasburicase administration ID: - C. difficile colitis: on PO Vancomycin - new skin lesions: blood cultures and nasal swab cultures negative, responding to empiric Vancomycin (day 5). - prophylaxis: on Levaquine, Bactrim, Acyclovir - diarrhea: on Imodium, avoid dairy products Breast mass: - unclear if associated to BL or not - request records, order mammogram Fluid retention: - improving, with autodiuresis/IV lasix Hyperglycemia: - on SSI, worse on steroids Skin lesions: suspicious for Staph/MRSA, but cultures NGSF - blood cultures, nasal swabs - responded to empiric Vancomycin on 11/26 Code status: full DYLAN MARTINEZ MD [facility] [id number] [facility] Mailcode: [id number] [place] [facility] [id number] [facility] DEPARTMENT: [id number]- [facility] Place of Service:- Inpatient Date of Service: 12/01/2011 Suggested CPT: 91697 - Subsequent, Detailed/High complex 35 min Eunice Morgan ANP - 12/01/2011 5:17 PM PST Daily NPP Note - Chemotherapy [facility] Provider: Dylan Martinez MD PCP: JING Luis Date of Admission: 11/13/11 Hematologic Malignancy: Burkitts lymphoma Reason for admission: Chemotherapy, R-HyperCVAD started 11/15/11 Subjective: No new issues. Objective: Last Vitals: BP 102/61 | Pulse 73 | Temp 36.7 C (98 F) | RR 16 | Ht 162 cm (5' 3.78") | Wt 83.28 kg (183 lb 9.6 oz) | SpO2 100% | BMI 31.73 kg/(m^2) 24 Hour Vital Min/Max: Systolic (24hrs), Av mmHg, Min:86 mmHg, Max:110 mmHg Diastolic (24hrs), Av mmHg, Min:48 mmHg, Max:63 mmHg Pulse Min: 63 Max: 80 Temp Min: 36.3 C (97.3 F) Max: 37 C (98.6 F) Resp Min: 15 Max: 16 SpO2 Min: 96 % Max: 100 % Intake/Output Summary (Last 24 hours) at 12/01/11 1717 Last data filed at 12/01/11 1400 Gross per 24 hour Intake 3133 ml Output 3750 ml Net -617 ml Physical Exam: General: This is a female in no acute distress. HEENT: PERRL. Sclerae anicteric. Mucosa pink and moist without erythema or exudate. Skin: 3 discrete, erythematous, indurated, painful lesions, one on L low back near BMBX si te, 1 in pubic area and 1 on R leg-all three improved with less induration. Chest: Clear to ausculation bilaterally. CV: RRR, no murmurs. Abdomen: S/NT/ND, NABS. Previous surgical sites c/d/i with no surrounding erythema. Extremities: Pulses strong and equal bilaterally. No c/c/e NeuroPsych: Alert and oriented x 3. Grossly nonfocal exam. : Aguilar in place CVC: RUE PICC line, clean dry and without surrounding erythema Recent Labs Basename 12/01/11 0115 11/30/11 0006 11/29/11 0031 WBC 4.2* 6.1 5.9 RBC 3.16* 3.37* 3.34* HB 8.5* 9.6* 9.2* HCT 25.4* 27.1* 27.1* PLT 154 107* 79* NEUTROPERC 35* 48* 70 BANDPCT 13* 17* 15* LYMPHPERC 27 26 5* MONOPERC 11* 9* 10* BASOPERC 0 0 0 EOSPERC 0* 0* 0* Recent Labs Basename 12/01/11 0115 11/30/11 1813 11/30/11 0006 11/29/11 0031 NA 139 -- 138 137 K 3.3* -- 3.1* 3.2* CL 105 -- 106 105 BICARB 28 -- 26 25 BUN 6 -- 14 13 CR 0.48* -- 0.55* 0.51* GLU 91 111* 158* -- CA 8.0* -- 8.3* 8.6 AST 35 -- 12* 16 ALT 26 -- 16 17 AP 73 -- 70 68 TBILI 0.4 -- 0.4 0.5 TP 4.7* -- 5.6* 5.7* ALB 2.7* -- 2.9* 3.0* Labs: Lab Results Component Value Date MG 2.0 12/01/2011 Meds: Reviewed on rounds, see current MAR for medication list Assessment: Hematology: History: (Per Dr. Hutchins's H&P) Ms. Young was in her usual good state of health until the later part of August 2011 when s jerrica developed some abdominal pain. It initially started on her right lateral side and she eden cribed it as sharp and constant. It was associated with a more generalized abdominal pain an d some sweats. She was seen in her local ED on 2010 where she was thought to have a urinary tract infect and was treated with a course of ciprofloxacin and hydrocodone. She developed some nausea with dry heaves and was seen by her PCP on 09/09/2011. She was susan gnosed with diabetes and started on glipizide and Glargine. She was also started on lisinopr il for hypertension. She continued to have nausea with emesis prompting a return visit to he r PCP office on 09/30/2011. She continued to have abdominal pain and had an abdominal ultras ound on 10/01/2011 that showed multiple fluid filled structures with some internal echoes lynne t were adjacent to the pancrease. She was also noted to have a fatty liver. She had a follow -up abdomen/pelvic CT scan on 10/05/2011 that showed numerous masses in the retroperitoneum. The largest of the masses measured 10 cm. She was seen by Dr. Jonathan Aranda, Surgery, for further evaluation of her mass. She preferre d the procedure be done at [facility] and she was referred to Dr. Osiel Almanza. She was seen on 10/02 for her initial evaluation and then she underwent a laparoscopic exploration of her a bdomen on 11/10/2010. biopsy of the mass on 11/10/2010. There was diffuse peritoneal studding seen as well as low volume ascites. She had a normal appearing gall bladder. Biopsies of her right upper and quadrant abdominal wall nodules were obtained. Her ascites was drained and sent for cytology. 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 She currently notes some drenching n ight sweats and fatigue. Her abdomen is tender and continues to have some nausea with emesis . She is able move her bowels. She denies any fevers, chills or cough. She denies any visual changes or focal neurologic symptoms. She has some chest tightness that is not related to a ctivity. She has lost 40 lbs over the past 2 months that is unintentional. She has anorexia but is able to each some. Before 08/2011, she was not taking any routine medications Patient was admitted from clinic for treatment. Current Heme issues: -New Burkitt's lymphoma, currently day 17 hyper-cvad cycle 1A. -Plan to give cycle B then follow up in [place] area. -CBC reviewed and noted for recovery. Hospitalization Heme issues: 51 yo F with retroperitoneal node c/w burkitts. -biopsy from node on 11/09/10EBV positive lymphoma, FISH t(8:14) with IgHMyc fusion c/w burki tts lymphoma -BM Bx 11/13/11 Normocellular marrow with trilineage hematopoiesis, RADHA -LP with IT MTX under fluoro 11/18 (done under fluoro d/t pt body habitus with significant s acral edema and inability to get into position d/t signficantly enlarged abdomen) and 11/23 N ED -Staging CT scans CAP 11/14/11: 1. Interim increase in mediastinal, hilar, retroperitoneal and mesenteric adenopathy yaneth tible with progression of disease. 2. Wall thickening of the cecum, ascending colon through the mid transverse colon, compatible with colitis, infectious or inflammatory. 3. Several p ulmonary groundglass nodules, which may be old/post inflammatory, however may represent aty pical infection such as fungal, particularly if the patient is immunocompromised. 4. Left br east soft tissue nodules may represent intramammary lymph nodes; however consider mammogra m if not recently performed. (will require follow-up) -Started Dexamethasone 40mg daily (divided into 2 doses) 11/14/11, continued through chemoth erapy completion. Started chemotherapy HyperCVAD+R 11/15/11 (held Rituxan to end given high t umor burden). Chemotherapy regimen: Pt receiving cytoxan 300 mg/m2 IV q12 hr x 6 doses with mesna IV CI o teodoro 3 days for bladder protection. She is also receiving dexamethasone 40 mg po daily days 1 - 4 . She is further scheduled to receive doxorubicin 50 mg/m2 IVP on day 4 (11/19/11) and v incristine 2 mg IVP on days 4 (11/19/11) and 11 (11/26/11). Anticipate either daily Neupogen or single dose Neulasta beginning 24 hours after chemotherapy completes pending pt's dischar ge plan. Continue IV hydration, premeds and antiemetics as ordered. Monitor for acute toxic ities. Growth factor: Daily neupogen until ANC >1000 Labs: Continue to check CBC daily Transfusion parameters: Transfuse PRBCs for HCT <24% Transfuse PPH for platelet count <10,000 sooner PRN s/s bleeding. Cardiovascular: Current cardiovascular issues: -Pt with significant fluid overload, now resolving with aggressive diuresis. Hospitalization CV issues: -admitted from the clinic with mild hypotension 100 systolic -hold outpatient lisinopril 10mg for now -order TTE to evaluate baseline function - LVEF 60-65% Pulmonary: Current pulmonary issues: -No acute issues and sats stable on RA Hospitalization pulmonary issues: As above Imaging: no current imaging GI: Current GI issues: -Loose stools continue despite scheduled imodium and treatment for C Diff (11/16 CDiff posit al and 11/23 CDiff negative). Start lomotil ATC x 3 days. Hospitalization GI issues: -N/V, increased marinol to 5mg TID with adequate response. -worsening GERD sxs, increased PPI to BID and started carafate and now improved. PPI stoppe d until after HD MTX -abdominal and pelvic adenopathy with trace ascites based on reports of previous imaging. -CT scan of abdomen, pelvis 11/15/11 demonstrates increasing/coalescing adenopathy in abdome n. Also noted for colitis in cecum/ascending colon -noted to be C diff positive from 11/16/11 -Severe abdominal distention related to disease and worsened with fluid overload, resolving . 11/30 US negative ascites. Receiving: PRN antiemetics, pain control LFTs : wnl Infectious Disease: See current MAR for antimicrobials. Current issues/Bacterial: -Afebrile since admission. Scheduled to receive prophylactic levofloxacin upon completion of chemotherapy. If has fever would initiate work up with cultures/cxr, but in light of ira very of WBC would consider evaluation and not automatically starting broad spectrum coverage unless looks ill/ - was started on IV vancomycin d/t presence of 3 skin lesions that were concerning for cell ulitus. Improving on IV vancomycin -C-diff is positive by PCR 11/16/11, so started on vancomycin 125 mg po QID. Repeat CDiff ne gative. Will need at least a 14 day course but with continued loose stool plan to continue u ntil resolves. Fungal: Prophylactic fluconazole. Viral: Prophylactic Acyclovir PCP: Prophylactic Bactrim stopped until after HD MTX Pertinent positive culture: none Pertinent negative cultures: none Fluid/Electrolyte/Nutrition: See I/O above. Current diet: low bacteria, no dairy. Tolerating 100% x 3 meals with 2L po fluid intake . Encourage po intake as tolerated with goal of 2L of po fluids daily. MIVF: none at this time TPN: not required at this time Labs: Electrolytes reviewed and no repletion required. -No e/o TLS and frequent labs dc'd. -received allopurinol and IVF through chemotherapy, now completed Renal function: Cr elevated 1.6 on admission, now resolved. Stopped IVF with completion of chemotherapy. SCr wnl Other: Weight is significantly increased from admission, rechecked on different scale. I>O, successfully diuresed on 11/18 and continues diuresis daily after assessment. Fluid overload improved after aggressive diuresis. Weight improving, and is now below admission weight. Endocrine: Originally diagnosed with diabetes September 2011, remained on glipizide, howeve r CBG's have been low upon admission. Hold all oral medications. Has mild SSI if needed acuna teodoro patient may not be diabetic, instead hyperglycemic given underlying malignancy. CBG's mi nimally elevated with steroids. Continue accuchecks and SSI until steroid therapy is comple te. If remains mildly elevated, could consider change in diet to ADA [id number], or adding o ral agent. Dispo: Patient is from [place], [place] and utilizes [employer]. Currently has OHP application pending. Patient requesting to have her care at [facility]. Currently working to have local oncologist to follow patient between chemotherapy cycles. RAHUL Coto ANP [facility] [id number] [facility] Mailcode: [id number] [place] [address] Dylan Morton MD - 11/30/2011 11:41 PM PSTLeukemia/CHM Attending Inpatient Progress Note: I was present and rounded today with the NPP. I have independently examined and assessed th e patient. I have personally interviewed the patient, reviewed the vitals, history/last 24 hour events and the labs/studies for today.I agree with the NPPassessment and stated pl an of care. See progress note documented by NPP for details of relevant issues and care pl an for today. Primary Diagnosis Burkitt Lymphoma Secondary Diagnosis/Comorbidities Fluid retention Hyperglycemia C. 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 She has been induced with hyper-CVAD R. 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 - resolved, on Allopurinol s/p Rasburicase administration ID: - C. difficile colitis: on PO Vancomycin - new skin lesions: blood cultures and nasal swab cultures negative, responding to empiric Vancomycin (day 5). - prophylaxis: on Levaquine, Bactrim, Acyclovir - diarrhea: on Imodium, avoid dairy products Breast mass: - unclear if associated to BL or not - request records, order mammogram Fluid retention: - improving, with autodiuresis/IV lasix Hyperglycemia: - on SSI, worse on steroids Skin lesions: suspicious for Staph/MRSA, but cultures NGSF - blood cultures, nasal swabs - responded to empiric Vancomycin on 11/26 Code status: full DYLAN MARTINEZ MD [facility] [address] [facility] Mailcode: [id number] [place] [address] [facility] DEPARTMENT: [id number]- [facility] Place of Service:- Inpatient Date of Service: 11/30/2011 Suggested CPT: 68137 - Subsequent, Detailed/High complex 35 min Eunice Morgan ANP - 11/30/2011 2:34 PM PST Daily NPP Note - Chemotherapy [facility] Provider: Dylan Martinez MD PCP: JING Luis Date of Admission: 11/13/11 Hematologic Malignancy: Burkitts lymphoma Reason for admission: Chemotherapy, R-HyperCVAD started 11/15/11 Subjective: Lots of loose stool. Denies N/V or abd pain. Wishes to have follow up care post B cycle of hyper-cvad in [place]. Objective: Last Vitals: BP 123/75 | Pulse 69 | Temp 36.4 C (97.6 F) | RR 16 | Ht 162 cm (5' 3.78") | Wt 86 kg (189 lb 9.5 oz) | SpO2 97% | BMI 32.77 kg/(m^2) 24 Hour Vital Min/Max: Systolic (24hrs), Av mmHg, Min:97 mmHg, Max:123 mmHg Diastolic (24hrs), Av mmHg, Min:54 mmHg, Max:75 mmHg Pulse Min: 60 Max: 69 Temp Min: 36.3 C (97.4 F) Max: 36.8 C (98.3 F) Resp Min: 16 Max: 17 SpO2 Min: 96 % Max: 98 % Intake/Output Summary (Last 24 hours) at 11/30/11 1434 Last data filed at 11/30/11 1400 Gross per 24 hour Intake 4020 ml Output 2570 ml Net 1450 ml Physical Exam: General: This is a female in no acute distress. HEENT: PERRL. Sclerae anicteric. Mucosa pink and moist without erythema or exudate. Skin: 3 discrete, erythematous, indurated, painful lesions, one on L low back near BMBX si te, 1 in pubic area and 1 on R leg-all three improved with less induration. Chest: Clear to ausculation bilaterally. CV: RRR, no murmurs. Abdomen: S/NT/ND, NABS. Previous surgical sites c/d/i with no surrounding erythema. Extremities: Pulses strong and equal bilaterally. No c/c/e NeuroPsych: Alert and oriented x 3. Grossly nonfocal exam. : Aguilar in place CVC: RUE PICC line, clean dry and without surrounding erythema Recent Labs Basename 11/30/11 0006 11/29/11 0031 11/28/11 0014 WBC 6.1 5.9 1.8* RBC 3.37* 3.34* 2.78* HB 9.6* 9.2* 7.8* HCT 27.1* 27.1* 22.0* PLT 107* 79* 83* NEUTROPERC 48* 70 39* BANDPCT 17* 15* 35* LYMPHPERC 26 5* 8* MONOPERC 9* 10* 13* BASOPERC 0 0 0 EOSPERC 0* 0* 0* Recent Labs Basename 11/30/11 0006 11/29/11 1114 11/29/11 0746 11/29/11 0031 11/28/11 0014 NA 138 -- -- 137 137 K 3.1* -- -- 3.2* 3.9 CL 106 -- -- 105 105 BICARB 26 -- -- 25 26 BUN 14 -- -- 13 17 CR 0.55* -- -- 0.51* 0.64 GLU 158* 138* 153* -- -- CA 8.3* -- -- 8.6 8.7 AST 12* -- -- 16 12* ALT 16 -- -- 17 17 AP 70 -- -- 68 69 TBILI 0.4 -- -- 0.5 0.5 TP 5.6* -- -- 5.7* 6.1 ALB 2.9* -- -- 3.0* 3.1* Labs: Lab Results Component Value Date MG 1.8 11/30/2011 Meds: Reviewed on rounds, see current MAR for medication list Assessment: Hematology: History: (Per Dr. Hutchins's H&P) Ms. Young was in her usual good state of health until the later part of August 2011 when s jerrica developed some abdominal pain. It initially started on her right lateral side and she eden cribed it as sharp and constant. It was associated with a more generalized abdominal pain an d some sweats. She was seen in her local ED on 2010 where she was thought to have a urinary tract infect and was treated with a course of ciprofloxacin and hydrocodone. She developed some nausea with dry heaves and was seen by her PCP on 09/09/2011. She was susan gnosed with diabetes and started on glipizide and Glargine. She was also started on lisinopr il for hypertension. She continued to have nausea with emesis prompting a return visit to he r PCP office on 09/30/2011. She continued to have abdominal pain and had an abdominal ultras ound on 10/01/2011 that showed multiple fluid filled structures with some internal echoes lynne t were adjacent to the pancrease. She was also noted to have a fatty liver. She had a follow -up abdomen/pelvic CT scan on 10/05/2011 that showed numerous masses in the retroperitoneum. The largest of the masses measured 10 cm. She was seen by Dr. Jonathan Aranda, Surgery, for further evaluation of her mass. She preferre d the procedure be done at [facility] and she was referred to Dr. Osiel Almanza. She was seen on 10/02 for her initial evaluation and then she underwent a laparoscopic exploration of her a bdomen on 11/10/2010. biopsy of the mass on 11/10/2010. There was diffuse peritoneal studding seen as well as low volume ascites. She had a normal appearing gall bladder. Biopsies of her right upper and quadrant abdominal wall nodules were obtained. Her ascites was drained and sent for cytology. 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 She currently notes some drenching n ight sweats and fatigue. Her abdomen is tender and continues to have some nausea with emesis . She is able move her bowels. She denies any fevers, chills or cough. She denies any visual changes or focal neurologic symptoms. She has some chest tightness that is not related to a ctivity. She has lost 40 lbs over the past 2 months that is unintentional. She has anorexia but is able to each some. Before 08/2011, she was not taking any routine medications Patient was admitted from clinic for treatment. Current Heme issues: -New Burkitt's lymphoma, currently day 16 hyper-cvad cycle 1A. -Plan to give cycle B then follow up in [place] area. -CBC reviewed and noted for recovery. Hospitalization Heme issues: 51 yo F with retroperitoneal node c/w burkitts. -biopsy from node on 11/09/10EBV positive lymphoma, FISH t(8:14) with IgHMyc fusion c/w burki tts lymphoma -BM Bx 11/13/11 Normocellular marrow with trilineage hematopoiesis, RADHA -LP with IT MTX under fluoro 11/18 (done under fluoro d/t pt body habitus with significant s acral edema and inability to get into position d/t signficantly enlarged abdomen) and 11/23 N ED -Staging CT scans CAP 11/14/11: 1. Interim increase in mediastinal, hilar, retroperitoneal and mesenteric adenopathy yaneth tible with progression of disease. 2. Wall thickening of the cecum, ascending colon through the mid transverse colon, compatible with colitis, infectious or inflammatory. 3. Several p ulmonary groundglass nodules, which may be old/post inflammatory, however may represent aty pical infection such as fungal, particularly if the patient is immunocompromised. 4. Left br east soft tissue nodules may represent intramammary lymph nodes; however consider mammogra m if not recently performed. (will require follow-up) -Started Dexamethasone 40mg daily (divided into 2 doses) 11/14/11, continued through chemoth erapy completion. Started chemotherapy HyperCVAD+R 11/15/11 (held Rituxan to end given high t umor burden). Chemotherapy regimen: Pt receiving cytoxan 300 mg/m2 IV q12 hr x 6 doses with mesna IV CI o teodoro 3 days for bladder protection. She is also receiving dexamethasone 40 mg po daily days 1 - 4 . She is further scheduled to receive doxorubicin 50 mg/m2 IVP on day 4 (11/19/11) and v incristine 2 mg IVP on days 4 (11/19/11) and 11 (11/26/11). Anticipate either daily Neupogen or single dose Neulasta beginning 24 hours after chemotherapy completes pending pt's dischar ge plan. Continue IV hydration, premeds and antiemetics as ordered. Monitor for acute toxic ities. Growth factor: Daily neupogen until ANC >1000 Labs: Continue to check CBC daily Transfusion parameters: Transfuse PRBCs for HCT <24% Transfuse PPH for platelet count <10,000 sooner PRN s/s bleeding. Cardiovascular: Current cardiovascular issues: -Pt with significant fluid overload, now resolving with aggressive diuresis. Hospitalization CV issues: -admitted from the clinic with mild hypotension 100 systolic -hold outpatient lisinopril 10mg for now -order TTE to evaluate baseline function - LVEF 60-65% Pulmonary: Current pulmonary issues: -No acute issues and sats stable on RA Hospitalization pulmonary issues: As above Imaging: no current imaging GI: Current GI issues: -Loose stools continue despite scheduled imodium and treatment for C Diff (11/16 CDiff posit al and 11/23 CDiff negative). Start lomotil ATC x 3 days. Hospitalization GI issues: -N/V, increased marinol to 5mg TID with adequate response. -worsening GERD sxs, increased PPI to BID and started carafate and now improved. -abdominal and pelvic adenopathy with trace ascites based on reports of previous imaging. -CT scan of abdomen, pelvis 11/15/11 demonstrates increasing/coalescing adenopathy in abdome n. Also noted for colitis in cecum/ascending colon -noted to be C diff positive from 11/16/11 -Severe abdominal distention related to disease and worsened with fluid overload, resolving . Receiving: PRN antiemetics, pain control LFTs : wnl Infectious Disease: See current MAR for antimicrobials. Current issues/Bacterial: -Afebrile since admission. Scheduled to receive prophylactic levofloxacin upon completion of chemotherapy. If has fever would initiate work up with cultures/cxr, but in light of ira very of WBC would consider evaluation and not automatically starting broad spectrum coverage unless looks ill/ - was started on IV vancomycin d/t presence of 3 skin lesions that were concerning for cell ulitus. Improving on IV vancomycin -C-diff is positive by PCR 11/16/11, so started on vancomycin 125 mg po QID. Repeat CDiff ne gative. Will need at least a 14 day course Fungal: Prophylactic fluconazole. Viral: Prophylactic Acyclovir PCP: Prophylactic Bactrim Pertinent positive culture: none Pertinent negative cultures: none Imaging:See pulmonary section above. Other: N/A Fluid/Electrolyte/Nutrition: See I/O above. Current diet: low bacteria, no dairy. Tolerating 65-75% of meals with 4.1 L po fluid intak e yesterday. Encourage po intake as tolerated with goal of 2L of po fluids daily. MIVF: none at this time TPN: not required at this time Labs: Electrolytes reviewed and no repletion required. -No e/o TLS and frequent labs dc'd. -received allopurinol and IVF through chemotherapy, now completed Renal function: Cr elevated 1.6 on admission, now resolved. Stopped IVF with completion of chemotherapy. SCr wnl Other: Weight is significantly increased from admission, rechecked on different scale. I>O, successfully diuresed on 11/18 and continues diuresis daily after assessment. Fluid overload improved after aggressive diuresis. Weight improving, and is now below admission weight. Endocrine: Originally diagnosed with diabetes September 2011, remained on glipizide, howeve r CBG's have been low upon admission. Hold all oral medications. Has mild SSI if needed acuna teodoro patient may not be diabetic, instead hyperglycemic given underlying malignancy. CBG's mi nimally elevated with steroids. Continue accuchecks and SSI until steroid therapy is comple te. If remains mildly elevated, could consider change in diet to ADA [id number], or adding o ral agent. Dispo: Patient is from [place], [place] and utilizes [facility]. Currently has OHP application pending. Patient requesting to have her care at [facility]. Currently working to have local oncologist to follow patient between chemotherapy cycles. RAHUL Coto ANP [facility] KP [id number] [facility] Mailcode: [id number] [facility] [id number] Shimon Raymundo MD,PhD - 11/29/2011 5:04 PM PSTHematologic Malignancies / BMT Attending Inpatient Progress Note: I was present and rounded today in conjunction with the NPP I examined the patient, reviewed the relevant history and studies, and formulated a plan. Please see the NPP documentation from today for details 51F, high risk Burkitts, on induction R-hyperCVAD, start 11/15 - high risk by Stg 3, high LDH, bulky abdominal disease - BMBx & LP negative - tolerating chemo with clinical response - on GCSF, ANC recovered FEN - initial tumor lysis resolved - diuresing ID - C difficile, on po vanco - cellulitis improved on vanco Dispo - if plts recover >100 tomorrow, then give B cycle prior to discharge - if plts not recover, consider d/c home (or local friend) and readmit for B Primary diagnosis: Burkitt lymphoma Additional diagnoses: tumor lysis Ascites, malignant Cellulitis Volume overload Diabetes C difficile diarrhea Shimon Harvey MD PhD [facility] DEPARTMENT: [id number] [place] [address] Place of Service: - Inpatient Date of Service: 11/29/2011 Suggested CPT: 68063 - Subsequent, Detailed/High complex 35 min Shimon Raymundo MD,PhD - 11/28/2011 3:11 PM PSTHematologic Malignancies / BMT Attending Inpatient Progress Note: I was present and rounded today in conjunction with the NPP I examined the patient, reviewed the relevant history and studies, and formulated a plan. Please see the NPP documentation from today for details 51F, high risk Burkitts, on induction R-hyperCVAD, start 11/15 - high risk by Stg 3, high LDH, bulky abdominal disease - BMBx & LP negative - initial tumor lysis resolved - tolerating chemo with clinical response - counts recovering - cellulitis improved on vanco - C difficile, on po vanco Primary diagnosis: Burkitt lymphoma Additional diagnoses: tumor lysis Ascites, malignant Cellulitis Volume overload Diabetes C difficile diarrhea Shimon Harvey MD PhD [facility] DEPARTMENT: [id number] [facility] Place of Service: - Inpatient Date of Service: 11/28/2011 Suggested CPT: 13786 - Subsequent, Detailed/High complex 35 min Maricel Hemphill [facility] - 11/28/2011 11:25 AM PST Daily NPP Note - Chemotherapy Admit [facility] Attending: Dr. Shimon Harvey PCP: JING Luis Date of Admission: 11/13/11 Hematologic Malignancy: Burkitts lymphoma Reason for admission: Chemotherapy, R-HyperCVAD started 11/15/11 Subjective: In good spirits. No new complaints. Feels that all skin lesions are improving. Objective: Last Vitals: BP 112/65 | Pulse 74 | Temp 36.4 C (97.5 F) | RR 16 | Ht 162 cm (5' 3.78") | Wt 80.332 kg (177 lb 1.6 oz) | SpO2 97% | BMI 30.61 kg/(m^2) 24 Hour Vital Min/Max: Systolic (24hrs), Av mmHg, Min:99 mmHg, Max:127 mmHg Diastolic (24hrs), Av mmHg, Min:60 mmHg, Max:84 mmHg Pulse Min: 62 Max: 85 Temp Min: 36.2 C (97.2 F) Max: 36.8 C (98.3 F) Resp Min: 16 Max: 18 SpO2 Min: 96 % Max: 100 % Intake/Output Summary (Last 24 hours) at 11/28/11 1125 Last data filed at 11/28/11 1100 Gross per 24 hour Intake 4290 ml Output 4175 ml Net 115 ml Physical Exam: General: This is a female in no acute distress. HEENT: PERRL. Sclerae anicteric. Mucosa pink and moist without erythema or exudate. Skin: 3 discrete, erythematous, indurated, painful lesions, one on L low back near BMBX si te, 1 in pubic area and 1 on R leg-all three improved with less induration. Chest: Clear to ausculation bilaterally. CV: RRR, no murmurs. Abdomen: S/NT/ND, NABS. Previous surgical sites c/d/i with no surrounding erythema. Extremities: Pulses strong and equal bilaterally. No c/c/e NeuroPsych: Alert and oriented x 3. Grossly nonfocal exam. : Aguilar in place CVC: RUE PICC line, clean dry and without surrounding erythema Recent Labs Basename 11/28/11 0024 11/28/11 0014 11/27/11 1912 11/27/11 0016 11/26/11 0016 NA -- 137 -- 133* 134 K -- 3.9 -- 3.6 3.9 CL -- 105 -- 104 102 BICARB -- 26 -- 21* 24 BUN -- 17 -- 19 16 CR -- 0.64 -- 0.65 0.60 GLU 187* 171* 211* -- -- CA -- 8.7 -- 9.0 9.3 AST -- 12* -- 13* 18 ALT -- 17 -- 17 20 AP -- 69 -- 78 78 TBILI -- 0.5 -- 0.5 0.5 TP -- 6.1 -- 7.1 7.2 ALB -- 3.1* -- 3.5 3.5 Recent Labs Basename 11/28/11 0014 11/27/11 0016 11/26/11 0016 11/23/11 0002 11/22/11 0005 WBC 1.8* 0.4* 0.2* -- -- RBC 2.78* 3.03* 3.22* -- -- HB 7.8* 8.2* 8.9* -- -- HCT 22.0* 24.1* 25.6* -- -- PLT 83* 100* 113* -- -- NEUTROPERC 39* -- -- 47* 89* BANDPCT 35* -- -- -- -- LYMPHPERC 8* -- -- 47* 9* MONOPERC 13* -- -- 2 0* BASOPERC 0 -- -- 1 0 EOSPERC 0* -- -- 3 1 Meds: Reviewed on rounds, see current MAR for medication list Assessment: Hematology: History: (Per Dr. Hutchins's H&P) Ms. oYung was in her usual good state of health until the later part of August 2011 when s he developed some abdominal pain. It initially started on her right lateral side and she eden cribed it as sharp and constant. It was associated with a more generalized abdominal pain an d some sweats. She was seen in her local ED on 2010 where she was thought to have a urinary tract infect and was treated with a course of ciprofloxacin and hydrocodone. She developed some nausea with dry heaves and was seen by her PCP on 09/09/2011. She was susan gnosed with diabetes and started on glipizide and Glargine. She was also started on lisinopr il for hypertension. She continued to have nausea with emesis prompting a return visit to [facility] PCP office on 09/30/2011. She continued to have abdominal pain and had an abdominal ultras ound on 10/01/2011 that showed multiple fluid filled structures with some internal echoes lynne t were adjacent to the pancrease. She was also noted to have a fatty liver. She had a follow -up abdomen/pelvic CT scan on 10/05/2011 that showed numerous masses in the retroperitoneum. The largest of the masses measured 10 cm. She was seen by Dr. Jonathan Aranda, Surgery, for further evaluation of her mass. She preferre d the procedure be done at [facility] and she was referred to Dr. Osiel Almanza. She was seen on 10/02 for her initial evaluation and then she underwent a laparoscopic exploration of her a bdomen on 11/10/2010. biopsy of the mass on 11/10/2010. There was diffuse peritoneal studding seen as well as low volume ascites. She had a normal appearing gall bladder. Biopsies of her right upper and quadrant abdominal wall nodules were obtained. Her ascites was drained and sent for cytology. 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 She currently notes some drenching n ight sweats and fatigue. Her abdomen is tender and continues to have some nausea with emesis . She is able move her bowels. She denies any fevers, chills or cough. She denies any visual changes or focal neurologic symptoms. She has some chest tightness that is not related to a ctivity. She has lost 40 lbs over the past 2 months that is unintentional. She has anorexia but is able to each some. Before 08/2011, she was not taking any routine medications Patient was admitted from clinic for treatment. Current Heme issues: -CBC reviewed and noted for pancytopenia. However, there is now clear recovery of WBC with a rise to 1.8 and ANC of 1.3. -Will receive 2 units PRBC today to increase oxygen carrying capacity. -started chemotherapy HyperCVAD+R 11/15/11 (held Rituxan to end given high tumor burden). -Continues daily neupogen, started 11/20/11 per chemo plan. Hospitalization Heme issues: 51 yo F with retroperitoneal node c/w burkitts -biopsy from node on 11/09/10 demonstrates EBV positive lymphoma, FISH t(8:14) with IgHMyc fu adele c/w burkitts lymphoma -underwent bone marrow biopsy in clinic 11/13/11, results show-- Normocellular marrow with t rilineage hematopoiesis, - No evidence of marrow involvement by B cell lymphoma -Underwent LP with IT MTX under fluoro on 11/18 to r/o TECHNICAL INSTRUCTOR COURSE DEVELOPER involvement, Done under fluoro d /t pt body habitus with significant sacral edema and inability to get into position d/t sign ficantly enlarged abdomen. -LDH mildly elevated on admission, now wnl. -staging CT scans ordered of Chest, abdomen and pelvis 11/14/11: 1. Interim increase in mediastinal, hilar, retroperitoneal and mesenteric adenopathy yaneth tible with progression of disease. 2. Wall thickening of the cecum, ascending colon through the mid transverse colon, compatible with colitis, infectious or inflammatory. 3. Several p ulmonary groundglass nodules, which may be old/post inflammatory, however may represent aty pical infection such as fungal, particularly if the patient is immunocompromised. 4. Left br east soft tissue nodules may represent intramammary lymph nodes; however consider mammogra m if not recently performed. (will require follow-up) -start Dexamethasone 40mg daily (divided into 2 doses) 11/14/11, continued through chemother apy completion -Flow from LP 11/18/11 and 11/23- negative for malignancy Chemotherapy regimen: Pt receiving cytoxan 300 mg/m2 IV q12 hr x 6 doses with mesna IV CI o teodoro 3 days for bladder protection. She is also receiving dexamethasone 40 mg po daily days 1 - 4 . She is further scheduled to receive doxorubicin 50 mg/m2 IVP on day 4 (11/19/11) and v incristine 2 mg IVP on days 4 (11/19/11) and 11 (11/26/11). Anticipate either daily Neupogen or single dose Neulasta beginning 24 hours after chemotherapy completes pending pt's dischar ge plan. Continue IV hydration, premeds and antiemetics as ordered. Monitor for acute toxic ities. Growth factor: Daily neupogen until ANC >1000 Labs: Continue to check CBC daily Transfusion parameters: Transfuse PRBCs for HCT <24% Transfuse PPH for platelet count <10,000 sooner PRN s/s bleeding. Cardiovascular: Current cardiovascular issues: -Pt with significant fluid overload, now resolving. -Aggressively diuresed from 11/18 through 11/25. Hospitalization CV issues: -admitted from the clinic with mild hypotension 100 systolic -hold outpatient lisinopril 10mg for now -order TTE to evaluate baseline function - LVEF 60-65% Pulmonary: Current pulmonary issues: -No acute issues and sats stable on RA Hospitalization pulmonary issues: As above Imaging: no current imaging GI: Current GI issues: -Loose stools continue, but patient state are better this am Continues treatment for C Diff . -N/V, increased marinol to 5mg TID with adequate response. -worsening GERD sxs, increased PPI to BID and started carafate and now improved. Hospitalization GI issues: -abdominal and pelvic adenopathy with trace ascites based on reports of previous imaging. -CT scan of abdomen, pelvis 11/15/11 demonstrates increasing/coalescing adenopathy in abdome n. Also noted for colitis in cecum/ascending colon -noted to be C diff positive from 11/16/11 -Severe abdominal distention related to disease and worsened with fluid overload, resolving . Receiving: PRN antiemetics, pain control Imaging: LFTs : wnl Infectious Disease: See current MAR for antimicrobials. Current issues/Bacterial: Afebrile since admission. Scheduled to receive prophylactic levo floxacin upon completion of chemotherapy. If has fever would initiate work up with cultures/ cxr, but in light of recovery of WBC would consider evaluation and not automatically startin g broad spectrum coverage unless looks ill/ - was started on IV vancomycin d/t presence of 3 skin lesions that were concerning for cell ulitus. Improving on IV vancomycin -C-diff is positive by PCR 11/16/11, so started on vancomycin 125 mg po QID. Will need at le ast a 14 day course Fungal: Prophylactic fluconazole. Viral: Prophylactic Acyclovir PCP: Prophylactic Bactrim Pertinent positive culture: none Pertinent negative cultures: none Imaging:See pulmonary section above. Other: N/A Fluid/Electrolyte/Nutrition: See I/O above. Current diet: low bacteria. Tolerating 65-75% of meals with 2.7 L po fluid intake yesterda y. Encourage po intake as tolerated with goal of 2L of po fluids daily. MIVF: none at this time TPN: not required at this time Labs: Electrolytes reviewed and no repletion required. -No e/o TLS and frequent labs dc'd. -received allopurinol and IVF through chemotherapy, now completed Renal function: Cr elevated 1.6 on admission, now resolved. Stopped IVF with completion of chemotherapy. SCr wnl Other: Weight is significantly increased from admission, rechecked on different scale. I>O, successfully diuresed on 11/18 and continues diuresis daily after assessment. Fluid overload improved after aggressive diuresis. Weight improving, and is now below admission weight. Endocrine: Originally diagnosed with diabetes September 2011, remained on glipizide, howeve r CBG's have been low upon admission. Hold all oral medications. Has mild SSI if needed acuna teodoro patient may not be diabetic, instead hyperglycemic given underlying malignancy. CBG's mi nimally elevated with steroids. Continue accuchecks and SSI until steroid therapy is comple te. If remains mildly elevated, could consider change in diet to ADA [id number], or adding o ral agent. Dispo: Patient is from [place], [place] and utilizes [facility] [employer]. Currently has OHP application pending. Patient requesting to have her care at [facility]. Currently working to have local oncologist to follow patient between chemotherapy cycles. PRABHAKAR MOYA [facility] KPV [id number] [facility] Mailcode: [id number] [place] [facility] [address] Dylan Morton MD - 11/27/2011 1:40 PM PSTLeukemia/CHM Attending Inpatient Progress Note: I was present and rounded today with the NPP. I have independently examined and assessed th e patient. I have personally interviewed the patient, reviewed the vitals, history/last 24 hour events and the labs/studies for today.I agree with the NPPassessment and stated pl an of care. See progress note documented by NPP for details of relevant issues and care pl an for today. Primary Diagnosis Burkitt Lymphoma Secondary Diagnosis/Comorbidities Fluid retention Hyperglycemia C. 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 She has been induced with hyper-CVAD R. BL: - sporadic case, HIV negative, no TECHNICAL INSTRUCTOR COURSE DEVELOPER involvement - day 13 of hyper-CVAD/Rituxan 1A - on Neupogen - transfusion per guidelines Tumor Lysis. - resolved, on Allopurinol s/p Rasburicase administration ID: - C. difficile colitis: on PO Vancomycin - new skin lesions: blood cultures and nasal swab cultures pending. Day 2 of empiric IV Van comycin for presumed Staph infection - prophylaxis: on Levaquine, Bactrim, Acyclovir Breast mass: - unclear if associated to BL or not - request records, order mammogram Fluid retention: - improving, with autodiuresis/IV lasix Hyperglycemia: - on SSI, worse on steroids Skin lesions: suspicious for Staph/MRSA: - blood cultures, nasal swabs - started on empiric Vancomycin on 11/26 Code status: full DYLAN MARTINEZ MD [facility] [id number] [facility] Mailcode: [id number] [employer] [id number] [facility] DEPARTMENT: [id number]- [facility] Place of Service:[id number]- Inpatient Date of Service: 11/27/2011 Suggested CPT: 61106 - Subsequent, Detailed/High complex 35 min Herrera, PRABHAKAR Gupta - 11/27/2011 1:00 PM PST Daily NPP Note - Chemotherapy Admit [facility] Attending: Dylan Martinez MD PCP: JING Luis Date of Admission: 11/13/11 Hematologic Malignancy: Burkitts lymphoma Reason for admission: Chemotherapy, R-HyperCVAD started 11/15/11 Subjective: Doing well today. Believes that she has one new skin lesion. Objective: Last Vitals: BP 97/60 | Pulse 81 | Temp 36.3 C (97.4 F) | RR 18 | Ht 162 cm (5' 3.78") | Wt 80.332 kg (177 lb 1.6 oz) | SpO2 96% | BMI 30.61 kg/(m^2) 24 Hour Vital Min/Max: Systolic (24hrs), Av mmHg, Min:97 mmHg, Max:120 mmHg Diastolic (24hrs), Av mmHg, Min:60 mmHg, Max:74 mmHg Pulse Min: 68 Max: 96 Temp Min: 36.3 C (97.3 F) Max: 36.8 C (98.2 F) Resp Min: 18 Max: 18 SpO2 Min: 95 % Max: 99 % Intake/Output Summary (Last 24 hours) at 11/27/11 1300 Last data filed at 11/27/11 1145 Gross per 24 hour Intake 2420 ml Output 2050 ml Net 370 ml Physical Exam: General: This is a female in no acute distress. HEENT: PERRL. Sclerae anicteric. Mucosa pink and moist without erythema or exudate. Skin: 3 discrete, erythematous, indurated, painful lesions, one on L low back near BMBX si te, 1 in pubic area and 1 on R leg-all three improved with less induration. Chest: Clear to ausculation bilaterally. CV: RRR, no murmurs. Abdomen: S/NT/ND, NABS. Previous surgical sites c/d/i with no surrounding erythema. Extremities: Pulses strong and equal bilaterally. No c/c/e NeuroPsych: Alert and oriented x 3. Grossly nonfocal exam. : Aguilar in place CVC: RUE PICC line, clean dry and without surrounding erythema Recent Labs Basename 11/27/11 1112 11/27/11 0645 11/27/11 0016 11/26/11 0016 11/25/11 0006 NA -- -- 133* 134 136 K -- -- 3.6 3.9 3.4 CL -- -- 104 102 104 BICARB -- -- 21* 24 26 BUN -- -- 19 16 9 CR -- -- 0.65 0.60 0.50* GLU 234* 125* 187* -- -- CA -- -- 9.0 9.3 8.6 AST -- -- 13* 18 13* ALT -- -- 17 20 13 AP -- -- 78 78 62 TBILI -- -- 0.5 0.5 0.6 TP -- -- 7.1 7.2 6.3 ALB -- -- 3.5 3.5 3.2* Recent Labs Basename 11/27/11 0016 11/26/11 0016 11/25/11 0006 11/23/11 0002 11/22/11 0005 11/21/11 004 0 WBC 0.4* 0.2* 0.4* -- -- -- RBC 3.03* 3.22* 3.09* -- -- -- HB 8.2* 8.9* 8.5* -- -- -- HCT 24.1* 25.6* 24.7* -- -- -- PLT 100* 113* 114* -- -- -- NEUTROPERC -- -- -- 47* 89* 95* BANDPCT -- -- -- -- -- -- LYMPHPERC -- -- -- 47* 9* 4* MONOPERC -- -- -- 2 0* 0* BASOPERC -- -- -- 1 0 0 EOSPERC -- -- -- 3 1 1 Meds: Reviewed on rounds, see current MAR for medication list Assessment: Hematology: History: (Per Dr. Hutchins's H&P) Ms. Young was in her usual good state of health until the later part of August 2011 when s jerrica developed some abdominal pain. It initially started on her right lateral side and she eden cribed it as sharp and constant. It was associated with a more generalized abdominal pain an d some sweats. She was seen in her local ED on 2010 where she was thought to have a urinary tract infect and was treated with a course of ciprofloxacin and hydrocodone. She developed some nausea with dry heaves and was seen by her PCP on 09/09/2011. She was susan gnosed with diabetes and started on glipizide and Glargine. She was also started on lisinopr il for hypertension. She continued to have nausea with emesis prompting a return visit to [facility] PCP office on 09/30/2011. She continued to have abdominal pain and had an abdominal ultras ound on 10/01/2011 that showed multiple fluid filled structures with some internal echoes lynne t were adjacent to the pancrease. She was also noted to have a fatty liver. She had a follow -up abdomen/pelvic CT scan on 10/05/2011 that showed numerous masses in the retroperitoneum. The largest of the masses measured 10 cm. She was seen by Dr. Jonathan Aranda, Surgery, for further evaluation of her mass. She preferre d the procedure be done at [facility] and she was referred to Dr. Osiel Almanza. She was seen on 10/02 for her initial evaluation and then she underwent a laparoscopic exploration of her a bdomen on 11/10/2010. biopsy of the mass on 11/10/2010. There was diffuse peritoneal studding seen as well as low volume ascites. She had a normal appearing gall bladder. Biopsies of her right upper and quadrant abdominal wall nodules were obtained. Her ascites was drained and sent for cytology. 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 She currently notes some drenching n ight sweats and fatigue. Her abdomen is tender and continues to have some nausea with emesis . She is able move her bowels. She denies any fevers, chills or cough. She denies any visual changes or focal neurologic symptoms. She has some chest tightness that is not related to a ctivity. She has lost 40 lbs over the past 2 months that is unintentional. She has anorexia but is able to each some. Before 08/2011, she was not taking any routine medications Patient was admitted from clinic for treatment. Current Heme issues: -CBC reviewed and noted for pancytopenia. There is no blood product support required at th is time. -started chemotherapy HyperCVAD+R 11/15/11 (held Rituxan to end given high tumor burden). -Continues daily neupogen, started 11/20/11 per chemo plan. Hospitalization Heme issues: 51 yo F with retroperitoneal node c/w burkitts -biopsy from node on 11/09/10 demonstrates EBV positive lymphoma, FISH t(8:14) with IgHMyc fu adele c/w burkitts lymphoma -underwent bone marrow biopsy in clinic 11/13/11, results show-- Normocellular marrow with t rilineage hematopoiesis, - No evidence of marrow involvement by B cell lymphoma -Underwent LP with IT MTX under fluoro on 11/18 to r/o TECHNICAL INSTRUCTOR COURSE DEVELOPER involvement, Done under fluoro d /t pt body habitus with significant sacral edema and inability to get into position d/t sign ficantly enlarged abdomen. -LDH mildly elevated on admission, now wnl. -staging CT scans ordered of Chest, abdomen and pelvis 11/14/11: 1. Interim increase in mediastinal, hilar, retroperitoneal and mesenteric adenopathy yaneth tible with progression of disease. 2. Wall thickening of the cecum, ascending colon through the mid transverse colon, compatible with colitis, infectious or inflammatory. 3. Several p ulmonary groundglass nodules, which may be old/post inflammatory, however may represent aty pical infection such as fungal, particularly if the patient is immunocompromised. 4. Left br east soft tissue nodules may represent intramammary lymph nodes; however consider mammogra m if not recently performed. (will require follow-up) -start Dexamethasone 40mg daily (divided into 2 doses) 11/14/11, continued through chemother apy completion -Flow from LP 11/18/11 and 11/23- negative for malignancy Chemotherapy regimen: Pt receiving cytoxan 300 mg/m2 IV q12 hr x 6 doses with mesna IV CI o teodoro 3 days for bladder protection. She is also receiving dexamethasone 40 mg po daily days 1 - 4 . She is further scheduled to receive doxorubicin 50 mg/m2 IVP on day 4 (11/19/11) and v incristine 2 mg IVP on days 4 (11/19/11) and 11 (11/26/11). Anticipate either daily Neupogen or single dose Neulasta beginning 24 hours after chemotherapy completes pending pt's dischar ge plan. Continue IV hydration, premeds and antiemetics as ordered. Monitor for acute toxic ities. Growth factor: Daily neupogen until ANC >1000 Labs: Continue to check CBC daily Transfusion parameters: Transfuse PRBCs for HCT <24% Transfuse PPH for platelet count <10,000 sooner PRN s/s bleeding. Cardiovascular: Current cardiovascular issues: -Pt with significant fluid overload, now resolving. -Aggressively diuresed from 11/18 through 11/25. Hospitalization CV issues: -admitted from the clinic with mild hypotension 100 systolic -hold outpatient lisinopril 10mg for now -order TTE to evaluate baseline function - LVEF 60-65% Pulmonary: Current pulmonary issues: -No acute issues and sats stable on RA Hospitalization pulmonary issues: As above Imaging: no current imaging GI: Current GI issues: -Loose stools now resolved, continues treatment for C Diff. -N/V, increased marinol to 5mg TID with adequate response. -worsening GERD sxs, increased PPI to BID and started carafate and now improved. Hospitalization GI issues: -abdominal and pelvic adenopathy with trace ascites based on reports of previous imaging. -CT scan of abdomen, pelvis 11/15/11 demonstrates increasing/coalescing adenopathy in abdome n. Also noted for colitis in cecum/ascending colon -noted to be C diff positive from 11/16/11 -Severe abdominal distention related to disease and worsened with fluid overload, resolving . Receiving: PRN antiemetics, pain control Imaging: LFTs : wnl Infectious Disease: See current MAR for antimicrobials. Current issues/Bacterial: Afebrile since admission. Scheduled to receive prophylactic levo floxacin upon completion of chemotherapy. For first neutropenic fever, mtz cx, CXR, d/c cip ro and begin Cefepime for empiric broadspectrum coverage. -C-diff is positive by PCR 11/16/11, so started on vancomycin 125 mg po QID. Will need at le ast a 14 day course Fungal: Prophylactic fluconazole. Viral: Prophylactic Acyclovir PCP: Prophylactic Bactrim Pertinent positive culture: none Pertinent negative cultures: none Imaging:See pulmonary section above. Other: N/A Fluid/Electrolyte/Nutrition: See I/O above. Current diet: low bacteria. Tolerating 65-75% of meals with 2.7 L po fluid intake yesterda y. Encourage po intake as tolerated with goal of 2L of po fluids daily. MIVF: none at this time TPN: not required at this time Labs: Electrolytes reviewed and no repletion required. -No e/o TLS and frequent labs dc'd. -received allopurinol and IVF through chemotherapy, now completed Renal function: Cr elevated 1.6 on admission, now resolved. Stopped IVF with completion of chemotherapy. SCr wnl Other: Weight is significantly increased from admission, rechecked on different scale. I>O, successfully diuresed on 11/18 and continues diuresis daily after assessment. Fluid overload improved after aggressive diuresis. Weight improving, and is now below admission weight. Endocrine: Originally diagnosed with diabetes September 2011, remained on glipizide, howeve r CBG's have been low upon admission. Hold all oral medications. Has mild SSI if needed acuna teodoro patient may not be diabetic, instead hyperglycemic given underlying malignancy. CBG's mi nimally elevated with steroids. Continue accuchecks and SSI until steroid therapy is comple te. If remains mildly elevated, could consider change in diet to ADA [id number], or adding o ral agent. Dispo: Patient is from [place], [place] and utilizes [facility]. Currently has OHP application pending. Patient requesting to have her care at [facility]. Currently working to have local oncologist to follow patient between chemotherapy cycles. PRABHAKAR MOYA [facility] [id number] [facility] Mailcode: [id number] [employer] [phone] Dylan Morton MD - 11/26/2011 1:37 PM PSTLeukemia/CHM Attending Inpatient Progress Note: I was present and rounded today with the NPP. I have independently examined and assessed th e patient. I have personally interviewed the patient, reviewed the vitals, history/last 24 hour events and the labs/studies for today.I agree with the NPPassessment and stated pl an of care. See progress note documented by NPP for details of relevant issues and care pl an for today. Primary Diagnosis Burkitt Lymphoma Secondary Diagnosis/Comorbidities Fluid retention Hyperglycemia C. 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 She has been induced with hyper-CVAD R. BL: - sporadic case, HIV negative, no TECHNICAL INSTRUCTOR COURSE DEVELOPER involvement - day 12 of hyper-CVAD/Rituxan 1A - on Neupogen - transfusion per guidelines Tumor Lysis. - resolved, on Allopurinol s/p Rasburicase administration ID: - C. difficile colitis: on PO Vancomycin - new skin lesions: requested blood cultures and nasal swab cultures; started on IV Vancomy griselda for presumed Staph - prophylaxis: on Levaquine, Bactrim, Acyclovir Breast mass: - unclear if associated to BL or not - request records, order mammogram Fluid retention: - improving, with autodiuresis/IV lasix Hyperglycemia: - on SSI, worse on steroids Skin lesions: suspicious for Staph/MRSA: - blood cultures, nasal swabs - started on empiric Vancomycin on 11/26 Code status: full DYLAN MARTINEZ MD [facility] [address] [facility] Mailcode: Kpv14 [facility] [place] [address] [facility] DEPARTMENT: [id number]- [facility] Place of Service:- Inpatient Date of Service: 11/26/2011 Suggested CPT: 17832 - Subsequent, Detailed/High complex 35 min anning, PRABHAKAR Gupta - 11/26/2011 12:36 PM PST Daily NPP Note - Chemotherapy [facility] Attending: Dylan Martinez MD PCP: JING Luis Date of Admission: 11/13/11 Hematologic Malignancy: Burkitts lymphoma Reason for admission: Chemotherapy, R-HyperCVAD started 11/15/11 Subjective: Reports new red, skin lesions which are painful on back and in groin area. Objective: Last Vitals: BP 111/75 | Pulse 74 | Temp 36.1 C (97 F) | RR 18 | Ht 162 cm (5' 3.78") | Wt 80.332 kg (177 lb 1.6 oz) | SpO2 97% | BMI 30.61 kg/(m^2) 24 Hour Vital Min/Max: Systolic (24hrs), Av mmHg, Min:104 mmHg, Max:132 mmHg Diastolic (24hrs), Av mmHg, Min:70 mmHg, Max:86 mmHg Pulse Min: 74 Max: 103 Temp Min: 36.1 C (97 F) Max: 37.3 C (99.1 F) Resp Min: 16 Max: 18 SpO2 Min: 97 % Max: 99 % Intake/Output Summary (Last 24 hours) at 11/26/11 1236 Last data filed at 11/26/11 0900 Gross per 24 hour Intake 2358 ml Output 1525 ml Net 833 ml Physical Exam: General: This is a female in no acute distress. HEENT: PERRL. Sclerae anicteric. Mucosa pink and moist without erythema or exudate. Skin: 3 discrete, erythematous, indurated, painful lesions, one on L low back near BMBX si te, 2 in pubic area. Chest: Clear to ausculation bilaterally. CV: RRR, no murmurs. Abdomen: S/NT/ND, NABS. Previous surgical sites c/d/i with no surrounding erythema. Extremities: Pulses strong and equal bilaterally. No c/c/e NeuroPsych: Alert and oriented x 3. Grossly nonfocal exam. : Aguilar in place CVC: RUE PICC line, clean dry and without surrounding erythema Recent Labs Basename 11/26/11 0824 11/26/11 0016 11/25/11 2224 11/25/11 0006 11/24/11 0025 NA -- 134 -- 136 134 K -- 3.9 -- 3.4 3.4 CL -- 102 -- 104 101 BICARB -- 24 -- 26 26 BUN -- 16 -- 9 6 CR -- 0.60 -- 0.50* 0.55* GLU 123* 177* 219* -- -- CA -- 9.3 -- 8.6 8.8 AST -- 18 -- 13* 13* ALT -- 20 -- 13 14 AP -- 78 -- 62 64 TBILI -- 0.5 -- 0.6 1.0 TP -- 7.2 -- 6.3 6.3 ALB -- 3.5 -- 3.2* 3.3* Recent Labs Basename 11/26/11 0016 11/25/11 0006 11/24/11 0025 11/23/11 0002 11/22/11 0005 11/21/11 004 0 WBC 0.2* 0.4* 0.2* -- -- -- RBC 3.22* 3.09* 3.36* -- -- -- HB 8.9* 8.5* 9.0* -- -- -- HCT 25.6* 24.7* 26.8* -- -- -- PLT 113* 114* 147* -- -- -- NEUTROPERC -- -- -- 47* 89* 95* BANDPCT -- -- -- -- -- -- LYMPHPERC -- -- -- 47* 9* 4* MONOPERC -- -- -- 2 0* 0* BASOPERC -- -- -- 1 0 0 EOSPERC -- -- -- 3 1 1 Meds: Reviewed on rounds, see current MAR for medication list Assessment: Hematology: History: (Per Dr. Hutchins's H&P) Ms. Young was in her usual good state of health until the later part of August 2011 when s he developed some abdominal pain. It initially started on her right lateral side and she eden cribed it as sharp and constant. It was associated with a more generalized abdominal pain an d some sweats. She was seen in her local ED on 2010 where she was thought to have a urinary tract infect and was treated with a course of ciprofloxacin and hydrocodone. She developed some nausea with dry heaves and was seen by her PCP on 09/09/2011. She was susan gnosed with diabetes and started on glipizide and Glargine. She was also started on lisinopr il for hypertension. She continued to have nausea with emesis prompting a return visit to [facility] PCP office on 09/30/2011. She continued to have abdominal pain and had an abdominal ultras ound on 10/01/2011 that showed multiple fluid filled structures with some internal echoes lynne t were adjacent to the pancrease. She was also noted to have a fatty liver. She had a follow -up abdomen/pelvic CT scan on 10/05/2011 that showed numerous masses in the retroperitoneum. The largest of the masses measured 10 cm. She was seen by Dr. Jonathan Aranda, Surgery, for further evaluation of her mass. She preferre d the procedure be done at [facility] and she was referred to Dr. Osiel Almanza. She was seen on 10/02 for her initial evaluation and then she underwent a laparoscopic exploration of her a bdomen on 11/10/2010. biopsy of the mass on 11/10/2010. There was diffuse peritoneal studding seen as well as low volume ascites. She had a normal appearing gall bladder. Biopsies of her right upper and quadrant abdominal wall nodules were obtained. Her ascites was drained and sent for cytology. 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 She currently notes some drenching n ight sweats and fatigue. Her abdomen is tender and continues to have some nausea with emesis . She is able move her bowels. She denies any fevers, chills or cough. She denies any visual changes or focal neurologic symptoms. She has some chest tightness that is not related to a ctivity. She has lost 40 lbs over the past 2 months that is unintentional. She has anorexia but is able to each some. Before 08/2011, she was not taking any routine medications Patient was admitted from clinic for treatment. Current Heme issues: -CBC reviewed and noted for pancytopenia. There is no blood product support required at th is time. -started chemotherapy HyperCVAD+R 11/15/11 (held Rituxan to end given high tumor burden). -Continues daily neupogen, started 11/20/11 per chemo plan. Hospitalization Heme issues: 51 yo F with retroperitoneal node c/w burkitts -biopsy from node on 11/09/10 demonstrates EBV positive lymphoma, FISH t(8:14) with IgHMyc fu adele c/w burkitts lymphoma -underwent bone marrow biopsy in clinic 11/13/11, results show-- Normocellular marrow with t rilineage hematopoiesis, - No evidence of marrow involvement by B cell lymphoma -Underwent LP with IT MTX under fluoro on 11/18 to r/o TECHNICAL INSTRUCTOR COURSE DEVELOPER involvement, Done under fluoro d /t pt body habitus with significant sacral edema and inability to get into position d/t sign ficantly enlarged abdomen. -LDH mildly elevated on admission, now wnl. -staging CT scans ordered of Chest, abdomen and pelvis 11/14/11: 1. Interim increase in mediastinal, hilar, retroperitoneal and mesenteric adenopathy yaneth tible with progression of disease. 2. Wall thickening of the cecum, ascending colon through the mid transverse colon, compatible with colitis, infectious or inflammatory. 3. Several p ulmonary groundglass nodules, which may be old/post inflammatory, however may represent aty pical infection such as fungal, particularly if the patient is immunocompromised. 4. Left br east soft tissue nodules may represent intramammary lymph nodes; however consider mammogra m if not recently performed. (will require follow-up) -start Dexamethasone 40mg daily (divided into 2 doses) 11/14/11, continued through chemother apy completion -Flow from LP 11/18/11 and 11/23- negative for malignancy Chemotherapy regimen: Pt receiving cytoxan 300 mg/m2 IV q12 hr x 6 doses with mesna IV CI o teodoro 3 days for bladder protection. She is also receiving dexamethasone 40 mg po daily days 1 - 4 . She is further scheduled to receive doxorubicin 50 mg/m2 IVP on day 4 (11/19/11) and v incristine 2 mg IVP on days 4 (11/19/11) and 11 (11/26/11). Anticipate either daily Neupogen or single dose Neulasta beginning 24 hours after chemotherapy completes pending pt's dischar ge plan. Continue IV hydration, premeds and antiemetics as ordered. Monitor for acute toxic ities. Growth factor: Daily neupogen until ANC >1000 Labs: Continue to check CBC daily Transfusion parameters: Transfuse PRBCs for HCT <24% Transfuse PPH for platelet count <10,000 sooner PRN s/s bleeding. Cardiovascular: Current cardiovascular issues: -Pt with significant fluid overload, now resolving. -Aggressively diuresed from 11/18 through 11/25. Hospitalization CV issues: -admitted from the clinic with mild hypotension 100 systolic -hold outpatient lisinopril 10mg for now -order TTE to evaluate baseline function - LVEF 60-65% Pulmonary: Current pulmonary issues: -No acute issues and sats stable on RA Hospitalization pulmonary issues: As above Imaging: no current imaging GI: Current GI issues: -Loose stools now resolved, continues treatment for C Diff. -N/V, increased marinol to 5mg TID with adequate response. -worsening GERD sxs, increased PPI to BID and started carafate and now improved. Hospitalization GI issues: -abdominal and pelvic adenopathy with trace ascites based on reports of previous imaging. -CT scan of abdomen, pelvis 11/15/11 demonstrates increasing/coalescing adenopathy in abdome n. Also noted for colitis in cecum/ascending colon -noted to be C diff positive from 11/16/11 -Severe abdominal distention related to disease and worsened with fluid overload, resolving . Receiving: PRN antiemetics, pain control Imaging: LFTs : wnl Infectious Disease: See current MAR for antimicrobials. Current issues/Bacterial: Afebrile since admission. Scheduled to receive prophylactic levo floxacin upon completion of chemotherapy. For first neutropenic fever, mtz cx, CXR, d/c cip ro and begin Cefepime for empiric broadspectrum coverage. -C-diff is positive by PCR 11/16/11, so started on vancomycin 125 mg po QID. Will need at le ast a 14 day course Fungal: Prophylactic fluconazole. Viral: Prophylactic Acyclovir PCP: Prophylactic Bactrim Pertinent positive culture: none Pertinent negative cultures: none Imaging:See pulmonary section above. Other: N/A Fluid/Electrolyte/Nutrition: See I/O above. Current diet: low bacteria. Tolerating 65-75% of meals with 2.7 L po fluid intake yesterda y. Encourage po intake as tolerated with goal of 2L of po fluids daily. MIVF: none at this time TPN: not required at this time Labs: Electrolytes reviewed and no repletion required. -No e/o TLS and frequent labs dc'd. -received allopurinol and IVF through chemotherapy, now completed Renal function: Cr elevated 1.6 on admission, now resolved. Stopped IVF with completion of chemotherapy. SCr wnl Other: Weight is significantly increased from admission, rechecked on different scale. I>O, successfully diuresed on 11/18 and continues diuresis daily after assessment. Fluid overload improved after aggressive diuresis. Weight improving, and is now below admission weight. Endocrine: Originally diagnosed with diabetes September 2011, remained on glipizide, howeve r CBG's have been low upon admission. Hold all oral medications. Has mild SSI if needed acuna teodoro patient may not be diabetic, instead hyperglycemic given underlying malignancy. CBG's mi nimally elevated with steroids. Continue accuchecks and SSI until steroid therapy is comple te. If remains mildly elevated, could consider change in diet to ADA [id number], or adding o ral agent. Dispo: Patient is from [place], [place] and utilizes [facility]. Currently has OHP application pending. Patient requesting to have her care at [facility]. Currently working to have local oncologist to follow patient between chemotherapy cycles. PRABHAKAR MOYA [facility] [address] [facility] Mailcode: [id number] [place] [facility] [id number] Osiel Lemon MD - 0 11/25/2011 2:45 PM PST11/25/2011 Surg Onc note Post-op check S/p Lap biopsy of RP mass. Bx=Burkitt's lymphoma, and pt admitted to Heme-Onc and receiving Chemo. We examined the pt today, 2 weeks post-op. ROS: No GI c/o. abdom distention better. In good spirits Exam: BP 113/74 | Pulse 95 | Temp 37.1 C (98.7 F) | RR 16 | Ht 162 cm (5' 3.78") | Wt 1 78.4 kg (393 lb 4.8 oz) | SpO2 98% | BMI 67.98 kg/(m^2) Abdom distention less, no fluid wave, non tenders. Wounds healing nicely A; 1. Stable post op 2. Burkitt's Lymphoma, on chemo P: Per [facility] can follow up with Surg Onc in the remote future (1 to 2 months fine) unle ss there are intervening issues. OSIEL ALMANZA MD [facility] [address] Mail[id number] [place], [place] [id number] Dylan Morton MD - 11/25/2011 1:36 PM PSTLeukemia/CHM Attending Inpatient Progress Note: I was present and rounded today with the NPP. I have independently examined and assessed th e patient. I have personally interviewed the patient, reviewed the vitals, history/last 24 hour events and the labs/studies for today.I agree with the NPPassessment and stated pl an of care. See progress note documented by NPP for details of relevant issues and care pl an for today. Primary Diagnosis Burkitt Lymphoma Secondary Diagnosis/Comorbidities Fluid retention Hyperglycemia C. 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 She has been induced with hyper-CVAD R. BL: - sporadic case, HIV negative, no TECHNICAL INSTRUCTOR COURSE DEVELOPER involvement - day 11 of hyper-CVAD/Rituxan 1A - on Neupogen - transfusion per guidelines Tumor Lysis. - resolved, on Allopurinol s/p Rasburicase administration ID: - C. difficile colitis: on PO Vancomycin - prophylaxis: on Levaquine, Bactrim, Acyclovir Breast mass: - unclear if associated to BL or not - request records, order mammogram Fluid retention: - improving, with autodiuresis/IV lasix Hyperglycemia: - on SSI, worse on steroids Code status: full DYLAN MARTINEZ MD [facility] [address] [facility] Mailcode: [id number] [employer] [id number] [facility] DEPARTMENT: [id number]- [facility] [place] Place of Service:- Inpatient Date of Service: 11/25/2011 Suggested CPT: 34263 - Subsequent, Detailed/High complex 35 min annmaame, PRABHAKAR Gupta - 11/25/2011 12:10 PM PST Daily NPP Note - Chemotherapy [facility] Attending: Dylan Martinez MD PCP: JING Luis Date of Admission: 11/13/11 Hematologic Malignancy: Burkitts lymphoma Reason for admission: Chemotherapy, R-HyperCVAD started 11/15/11 Subjective: Remains in very good spirits. No new complaints at this time. She is very ple ased with her care at [facility]. Objective: Last Vitals: BP 125/77 | Pulse 84 | Temp 36.8 C (98.2 F) | RR 18 | Ht 162 cm (5' 3.78") | Wt 178.4 kg (393 lb 4.8 oz) | SpO2 97% | BMI 67.98 kg/(m^2) 24 Hour Vital Min/Max: Systolic (24hrs), Av mmHg, Min:110 mmHg, Max:131 mmHg Diastolic (24hrs), Av mmHg, Min:65 mmHg, Max:85 mmHg Pulse Min: 84 Max: 112 Temp Min: 36.8 C (98.2 F) Max: 37.7 C (99.8 F) Resp Min: 18 Max: 18 SpO2 Min: 96 % Max: 98 % Intake/Output Summary (Last 24 hours) at 11/25/11 1210 Last data filed at 11/25/11 1000 Gross per 24 hour Intake 2381 ml Output 1475 ml Net 906 ml Physical Exam: General: This is a female in no acute distress. Sitting up in chair HEENT: PERRL. Sclerae anicteric. Mucosa pink and moist without erythema or exudate. Skin: No rash, lesions noted. Chest: Clear to ausculation bilaterally. CV: RRR, no murmurs. Abdomen: Distended but soft/ascites fluid wave present/mild tenderness to palpation in all quadrants, NABS. Improvement in size of abdominal girth. Previous surgical sites c/d/i with no surrounding erythema. Back: LP site clean and dry when observed. Bmbx site with dressing, clean and without surro unding erythema. Serous fluid on dressing Extremities: Pulses strong and equal bilaterally. Trace ankle/pedal edema NeuroPsych: Alert and oriented x 3. Grossly nonfocal exam. : Aguilar in place CVC: RUE PICC line, clean dry and without surrounding erythema Recent Labs Basename 11/25/11 0748 11/25/11 0006 11/24/11 2156 11/24/11 0025 11/23/11 0002 NA -- 136 -- 134 136 K -- 3.4 -- 3.4 3.5 CL -- 104 -- 101 101 BICARB -- 26 -- 26 31* BUN -- 9 -- 6 8 CR -- 0.50* -- 0.55* 0.54* GLU 122* 107* 129* -- -- CA -- 8.6 -- 8.8 8.5* AST -- 13* -- 13* 13* ALT -- 13 -- 14 12* AP -- 62 -- 64 52 TBILI -- 0.6 -- 1.0 0.7 TP -- 6.3 -- 6.3 5.8* ALB -- 3.2* -- 3.3* 2.8* Recent Labs Basename 11/25/11 0006 11/24/11 0025 11/23/11 0002 11/22/11 0005 11/21/11 0040 WBC 0.4* 0.2* 1.0* -- -- RBC 3.09* 3.36* 3.01* -- -- HB 8.5* 9.0* 8.3* -- -- HCT 24.7* 26.8* 24.3* -- -- PLT 114* 147* 165 -- -- NEUTROPERC -- -- 47* 89* 95* BANDPCT -- -- -- -- -- LYMPHPERC -- -- 47* 9* 4* MONOPERC -- -- 2 0* 0* BASOPERC -- -- 1 0 0 EOSPERC -- -- 3 1 1 Meds: Reviewed on rounds, see current MAR for medication list Assessment: Hematology: History: (Per Dr. Hutchins's H&P) Ms. Young was in her usual good state of health until the later part of August 2011 when s jerrica developed some abdominal pain. It initially started on her right lateral side and she eden cribed it as sharp and constant. It was associated with a more generalized abdominal pain an d some sweats. She was seen in her local ED on 2010 where she was thought to have a urinary tract infect and was treated with a course of ciprofloxacin and hydrocodone. She developed some nausea with dry heaves and was seen by her PCP on 09/09/2011. She was susan gnosed with diabetes and started on glipizide and Glargine. She was also started on lisinopr il for hypertension. She continued to have nausea with emesis prompting a return visit to [facility] PCP office on 09/30/2011. She continued to have abdominal pain and had an abdominal ultras ound on 10/01/2011 that showed multiple fluid filled structures with some internal echoes lynne t were adjacent to the pancrease. She was also noted to have a fatty liver. She had a follow -up abdomen/pelvic CT scan on 10/05/2011 that showed numerous masses in the retroperitoneum. The largest of the masses measured 10 cm. She was seen by Dr. Jonathan Aranda, Surgery, for further evaluation of her mass. She preferre d the procedure be done at [facility] and she was referred to Dr. Osiel Almanza. She was seen on 10/02 for her initial evaluation and then she underwent a laparoscopic exploration of her a bdomen on 11/10/2010. biopsy of the mass on 11/10/2010. There was diffuse peritoneal studding seen as well as low volume ascites. She had a normal appearing gall bladder. Biopsies of her right upper and quadrant abdominal wall nodules were obtained. Her ascites was drained and sent for cytology. 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 She currently notes some drenching n ight sweats and fatigue. Her abdomen is tender and continues to have some nausea with emesis . She is able move her bowels. She denies any fevers, chills or cough. She denies any visual changes or focal neurologic symptoms. She has some chest tightness that is not related to a ctivity. She has lost 40 lbs over the past 2 months that is unintentional. She has anorexia but is able to each some. Before 08/2011, she was not taking any routine medications Patient was admitted from clinic for treatment. Current Heme issues: -CBC reviewed and noted for pancytopenia. There is no blood product support required at th is time. -started chemotherapy HyperCVAD+R 11/15/11 (held Rituxan to end given high tumor burden). -Continues daily neupogen, started 11/20/11 per chemo plan -Day +11 Vincristine due today Hospitalization Heme issues: 51 yo F with retroperitoneal node c/w burkitts -biopsy from node on 11/09/10 demonstrates EBV positive lymphoma, FISH t(8:14) with IgHMyc fu adele c/w burkitts lymphoma -underwent bone marrow biopsy in clinic 11/13/11, results show-- Normocellular marrow with t rilineage hematopoiesis, - No evidence of marrow involvement by B cell lymphoma -Underwent LP with IT MTX under fluoro on 11/18 to r/o TECHNICAL INSTRUCTOR COURSE DEVELOPER involvement, Done under fluoro d /t pt body habitus with significant sacral edema and inability to get into position d/t sign ficantly enlarged abdomen. -LDH mildly elevated on admission, now wnl. -staging CT scans ordered of Chest, abdomen and pelvis 11/14/11: 1. Interim increase in mediastinal, hilar, retroperitoneal and mesenteric adenopathy yaneth tible with progression of disease. 2. Wall thickening of the cecum, ascending colon through the mid transverse colon, compatible with colitis, infectious or inflammatory. 3. Several p ulmonary groundglass nodules, which may be old/post inflammatory, however may represent aty pical infection such as fungal, particularly if the patient is immunocompromised. 4. Left br east soft tissue nodules may represent intramammary lymph nodes; however consider mammogra m if not recently performed. (will require follow-up) -start Dexamethasone 40mg daily (divided into 2 doses) 11/14/11, continued through chemother apy completion -Flow from LP 11/18/11 and 11/23- negative for malignancy Chemotherapy regimen: Pt receiving cytoxan 300 mg/m2 IV q12 hr x 6 doses with mesna IV CI o teodoro 3 days for bladder protection. She is also receiving dexamethasone 40 mg po daily days 1 - 4 . She is further scheduled to receive doxorubicin 50 mg/m2 IVP on day 4 (11/19/11) and v incristine 2 mg IVP on days 4 (11/19/11) and 11 (11/26/11). Anticipate either daily Neupogen or single dose Neulasta beginning 24 hours after chemotherapy completes pending pt's dischar ge plan. Continue IV hydration, premeds and antiemetics as ordered. Monitor for acute toxic ities. Growth factor: Daily neupogen until ANC >1000 Labs: Continue to check CBC daily Transfusion parameters: Transfuse PRBCs for HCT <24% Transfuse PPH for platelet count <10,000 sooner PRN s/s bleeding. Cardiovascular: Current cardiovascular issues: -pt with significant fluid overload, but improved greatly -diuresing actively - started on 11/18/11, continues daily with good effect Hospitalization CV issues: -admitted from the clinic with mild hypotension 100 systolic -hold outpatient lisinopril 10mg for now -order TTE to evaluate baseline function - LVEF 60-65% Pulmonary: Current pulmonary issues: -no acute issues -sats stable on RA Hospitalization pulmonary issues: As above Imaging: no current imaging GI: Current GI issues: -Severe abdominal distention related to disease and worsened with fluid overload. Now impro ving with diuresis -Loose stools, continues treatment for C Diff, loose stools resolved -More N/V, increased marinol to 5mg TID -worsening GERD sxs, increased PPI to BID and started carafate. Hospitalization GI issues: -abdominal and pelvic adenopathy with trace ascites based on reports of previous imaging. -CT scan of abdomen, pelvis 11/15/11 demonstrates increasing/coalescing adenopathy in abdome n. Also noted for colitis in cecum/ascending colon -noted to be C diff positive from 11/16/11 Receiving: PRN antiemetics, pain control Imaging: LFTs : wnl Infectious Disease: See current MAR for antimicrobials. Current issues/Bacterial: Afebrile since admission. Scheduled to receive prophylactic levo floxacin upon completion of chemotherapy. For first neutropenic fever, mtz cx, CXR, d/c cip ro and begin Cefepime for empiric broadspectrum coverage. - C-diff is positive by PCR 11/16/11, so started on vancomycin 125 mg po QID. Will need at [facility] a 14 day course Fungal: Prophylactic fluconazole. On hold currently through 11/25/11 with day+11 Vincristine Viral: Prophylactic Acyclovir PCP: Prophylactic Bactrim Pertinent positive culture: none Pertinent negative cultures: none Imaging:See pulmonary section above. Other: N/A Fluid/Electrolyte/Nutrition: See I/O above. Current diet: low bacteria. Tolerating 0-80% of meals with 1.0 L po fluid intake yesterday . Encourage po intake as tolerated with goal of 2L of po fluids daily. MIVF: none at this time TPN: not required at this time Labs: Electrolytes reviewed, notable for hypokalemia, will be repleted per supportive care orders. -No e/o TLS and frequent labs dc'd. -received allopurinol and IVF through chemotherapy, now completed Renal function: Cr elevated 1.6 on admission, now resolved. Stopped IVF with completion of chemotherapy. SCr wnl Other: Weight is significantly increased from admission, rechecked on different scale. I>O, successfully diuresed on 11/18 and continues diuresis daily after assessment. Fluid overload improving. Continuing gentle diuresis. Weight improving, and is now below admission weight . Endocrine:Originally diagnosed with diabetes September 2011, remained on glipizide, however CBG's have been low upon admission. Hold all oral medications. Has mild SSI if needed howeve r patient may not be diabetic, instead hyperglycemic given underlying malignancy. CBG's mini kenyon elevated with steroids. Monitor sugars now off steroids, CBG's improving. Will dc slid ing scale today and follow accuchecks. If remains mildly elevated, could consider change in diet to ADA 1357-7258, or adding oral agent. Dispo: Patient is from [place], [place] and utilizes [employer]. Currently has OHP application pending. Patient requesting to have her care at [facility]. Currently working to have local oncologist to follow patient between chemotherapy cycles. PRABHAKAR MOYA [facility] [id number] [facility] Mailcode: [id number] [place] [phone] Dylan Morton MD - 11/24/2011 1:35 PM PSTLeukemia/CHM Attending Inpatient Progress Note: I was present and rounded today with the NPP. I have independently examined and assessed th e patient. I have personally interviewed the patient, reviewed the vitals, history/last 24 hour events and the labs/studies for today.I agree with the NPPassessment and stated pl an of care. See progress note documented by NPP for details of relevant issues and care pl an for today. Primary Diagnosis Burkitt Lymphoma Secondary Diagnosis/Comorbidities Fluid retention Hyperglycemia C. 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 She has been induced with hyper-CVAD R. BL: - sporadic case, HIV negative, no TECHNICAL INSTRUCTOR COURSE DEVELOPER involvement - day 10 of hyper-CVAD/Rituxan 1A - on Neupogen - transfusion per guidelines Tumor Lysis. - resolved, on Allopurinol s/p Rasburicase administration ID: - C. difficile colitis: on PO Vancomycin - prophylaxis: on Levaquine, Bactrim, Acyclovir Breast mass: - unclear if associated to BL or not - request records, order mammogram Fluid retention: - improving, with autodiuresis/IV lasix Hyperglycemia: - on SSI, worse on steroids Code status: full DYLAN MARTINEZ MD [facility] [id number] [facility] Mailcode: [id number] [facility] [place] [address] [facility] DEPARTMENT: [id number]- [facility] FACULTY MPV Place of Service:- Inpatient Date of Service: 11/24/2011 Suggested CPT: 28124 - Subsequent, Detailed/High complex 35 min Renay Morton MD - 11/23/2011 5:40 PM PSTLeukemia/CHM Attending Inpatient Progress Note: I was present and rounded today with the NPP. I have independently examined and assessed th e patient. I have personally interviewed the patient, reviewed the vitals, history/last 24 hour events and the labs/studies for today.I agree with the NPPassessment and stated pl an of care. See progress note documented by NPP for details of relevant issues and care pl an for today. Primary Diagnosis Burkitt Lymphoma Secondary Diagnosis/Comorbidities Fluid retention Hyperglycemia C. 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 She has been induced with hyper-CVAD R. BL: - sporadic case, HIV negative, no TECHNICAL INSTRUCTOR COURSE DEVELOPER involvement - day 9 of hyper-CVAD/Rituxan 1A - will receive 2nd IT therapy to-day - on Neupogen - transfusion per guidelines Tumor Lysis. - resolved, on Allopurinol s/p Rasburicase administration ID: - C. difficile colitis: on PO Vancomycin - prophylaxis: on Levaquine, Bactrim, Acyclovir Breast mass: - unclear if associated to BL or not - request records, order mammogram Fluid retention: - improving, with autodiuresis/IV lasix Hyperglycemia: - on SSI, worse on steroids Code status: full DYLAN MARTINEZ MD [facility] [address] [facility] Mailcode: [id number] [facility] [address] [facility] DEPARTMENT: [id number]- [facility] FACULTY MPV Place of Service:[id number]- Inpatient Date of Service: 11/23/2011 Suggested CPT: 55964 - Subsequent, Detailed/High complex 35 min ang MaricelMiladis COMMUNITY SUPPORT PROFESSIONAL - 11/23/2011 12:52 PM PST Daily NPP Note - Chemotherapy [facility] Attending: Dr. Shimon Harvey PCP: JING Luis Date of Admission: 11/13/11 Hematologic Malignancy: Burkitts lymphoma Reason for admission: Chemotherapy Subjective: Remains in very good spirits. No new complaints at this time. She is very ple ased with her care at [facility]. Objective: Last Vitals: BP 100/61 | Pulse 86 | Temp 36.9 C (98.4 F) | RR 16 | Ht 162 cm (5' 3.78") | Wt 92.1 kg (203 lb 0.7 oz) | SpO2 98% | BMI 35.09 kg/(m^2) 24 Hour Vital Min/Max: Systolic (24hrs), Av mmHg, Min:100 mmHg, Max:133 mmHg Diastolic (24hrs), Av mmHg, Min:58 mmHg, Max:78 mmHg Pulse Min: 72 Max: 86 Temp Min: 36.7 C (98 F) Max: 37.6 C (99.6 F) Resp Min: 16 Max: 18 SpO2 Min: 97 % Max: 99 % Intake/Output Summary (Last 24 hours) at 11/23/11 1252 Last data filed at 11/23/11 1200 Gross per 24 hour Intake 1030 ml Output 4975 ml Net -3945 ml Physical Exam: General: This is a female in no acute distress. Sitting up in chair HEENT: PERRL. Sclerae anicteric. Mucosa pink and moist without erythema or exudate. Skin: No rash, lesions noted. Chest: Clear to ausculation bilaterally. CV: RRR, no murmurs. Abdomen: Distended but soft/ascites fluid wave present/mild tenderness to palpation in all quadrants, NABS. Improvement in size of abdominal girth. Previous surgical sites c/d/i with no surrounding erythema. Back: LP site clean and dry when observed. Bmbx site with dressing, clean and without surro unding erythema. Serous fluid on dressing Extremities: Pulses strong and equal bilaterally. 2+ edema to lower extremities NeuroPsych: Alert and oriented x 3. Grossly nonfocal exam. : Aguilar in place CVC: RUE PICC line, clean dry and without surrounding erythema Recent Labs Basename 11/23/11 1200 11/23/11 0802 11/23/11 0002 11/22/11 0005 11/21/11 0040 NA -- -- 136 134 139 K -- -- 3.5 3.6 3.5 CL -- -- 101 100 103 BICARB -- -- 31* 30* 30* BUN -- -- 8 9 12 CR -- -- 0.54* 0.46* 0.54* GLU 116* 102* 110* -- -- CA -- -- 8.5* 8.2* 8.1* AST -- -- 13* 13* 14* ALT -- -- 12* 12* 13 AP -- -- 52 49 50 TBILI -- -- 0.7 0.9 0.8 TP -- -- 5.8* 5.3* 5.4* ALB -- -- 2.8* 2.6* 2.7* Recent Labs Basename 11/23/11 0002 11/22/11 0005 11/21/11 0040 WBC 1.0* 5.9 13.6* RBC 3.01* 3.07* 3.24* HB 8.3* 8.3* 8.9* HCT 24.3* 24.9* 26.5* PLT 165 188 237 NEUTROPERC 47* 89* 95* BANDPCT -- -- -- LYMPHPERC 47* 9* 4* MONOPERC 2 0* 0* BASOPERC 1 0 0 EOSPERC 3 1 1 Meds: Reviewed on rounds, see current MAR for medication list Assessment: Hematology: History: (Per Dr. Hutchins's H&P) Ms. Young was in her usual good state of health until the later part of August 2011 when s he developed some abdominal pain. It initially started on her right lateral side and she eden cribed it as sharp and constant. It was associated with a more generalized abdominal pain an d some sweats. She was seen in her local ED on 2010 where she was thought to have a urinary tract infect and was treated with a course of ciprofloxacin and hydrocodone. She developed some nausea with dry heaves and was seen by her PCP on 09/09/2011. She was susan gnosed with diabetes and started on glipizide and Glargine. She was also started on lisinopr il for hypertension. She continued to have nausea with emesis prompting a return visit to he r PCP office on 09/30/2011. She continued to have abdominal pain and had an abdominal ultras ound on 10/01/2011 that showed multiple fluid filled structures with some internal echoes lynne t were adjacent to the pancrease. She was also noted to have a fatty liver. She had a follow -up abdomen/pelvic CT scan on 10/05/2011 that showed numerous masses in the retroperitoneum. The largest of the masses measured 10 cm. She was seen by Dr. Jonathan Aranda, Surgery, for further evaluation of her mass. She preferre d the procedure be done at [facility] and she was referred to Dr. Osiel Almanza. She was seen on 10/02 for her initial evaluation and then she underwent a laparoscopic exploration of her a bdomen on 11/10/2010. biopsy of the mass on 11/10/2010. There was diffuse peritoneal studding seen as well as low volume ascites. She had a normal appearing gall bladder. Biopsies of her right upper and quadrant abdominal wall nodules were obtained. Her ascites was drained and sent for cytology. 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 She currently notes some drenching n ight sweats and fatigue. Her abdomen is tender and continues to have some nausea with emesis . She is able move her bowels. She denies any fevers, chills or cough. She denies any visual changes or focal neurologic symptoms. She has some chest tightness that is not related to a ctivity. She has lost 40 lbs over the past 2 months that is unintentional. She has anorexia but is able to each some. Before 08/2011, she was not taking any routine medications Patient was admitted from clinic for treatment. Current Heme issues: -CBC reviewed and noted for mild anemia. Counts still stable, without need for blood produ ct support. -started chemotherapy HyperCVAD+R 11/15/11, hold Rituxan to end given high tumor burden. No evidence of tumor lysis despite large tumor burden. -started neupogen 11/20/11 per chemo plan -Flow from LP 11/18/11- negative for malignancy -plan to repeat LP on 11/23/11 under fluoro as needs at least 2 LP's per cycle -day +11 Vincristine due 11/25/11 Hospitalization Heme issues: 51 yo F with retroperitoneal node c/w burkitts -biopsy from node on 11/09/10 demonstrates EBV positive lymphoma, FISH t(8:14) with IgHMyc fu adele c/w burkitts lymphoma -underwent bone marrow biopsy in clinic 11/13/11, results show-- Normocellular marrow with t rilineage hematopoiesis, - No evidence of marrow involvement by B cell lymphoma -Underwent LP with IT MTX under fluoro on 11/18 to r/o TECHNICAL INSTRUCTOR COURSE DEVELOPER involvement, Done under fluoro d /t pt body habitus with significant sacral edema and inability to get into position d/t sign ficantly enlarged abdomen. -LDH mildly elevated on admission, now wnl. -staging CT scans ordered of Chest, abdomen and pelvis 11/14/11: 1. Interim increase in mediastinal, hilar, retroperitoneal and mesenteric adenopathy yaneth tible with progression of disease. 2. Wall thickening of the cecum, ascending colon through the mid transverse colon, compatible with colitis, infectious or inflammatory. 3. Several p ulmonary groundglass nodules, which may be old/post inflammatory, however may represent aty pical infection such as fungal, particularly if the patient is immunocompromised. 4. Left br east soft tissue nodules may represent intramammary lymph nodes; however consider mammogra m if not recently performed. (will require follow-up) -start Dexamethasone 40mg daily (divided into 2 doses) 11/14/11, continued through chemother apy completion Chemotherapy regimen: Pt receiving cytoxan 300 mg/m2 IV q12 hr x 6 doses with mesna IV CI o teodoro 3 days for bladder protection. She is also receiving dexamethasone 40 mg po daily days 1 - 4 . She is further scheduled to receive doxorubicin 50 mg/m2 IVP on day 4 (11/19/11) and v incristine 2 mg IVP on days 4 (11/19/11) and 11 (11/26/11). Anticipate either daily Neupogen or single dose Neulasta beginning 24 hours after chemotherapy completes pending pt's dischar ge plan. Continue IV hydration, premeds and antiemetics as ordered. Monitor for acute toxic ities. Growth factor: Daily neupogen until ANC >1000 Labs: Continue to check CBC daily Transfusion parameters: Transfuse PRBCs for HCT <24% Transfuse PPH for platelet count <10,000 sooner PRN s/s bleeding. Cardiovascular: Current cardiovascular issues: -pt with significant fluid overload, but tolerating well. -diuresing actively - started on 11/18/11, continues daily with good effect Hospitalization CV issues: -admitted from the clinic with mild hypotension 100 systolic -hold outpatient lisinopril 10mg for now -order TTE to evaluate baseline function - LVEF 60-65% Pulmonary: Current pulmonary issues: -no acute issues -sats stable on RA Hospitalization pulmonary issues: As above Imaging: no current imaging GI: Current GI issues: Severe abdominal distention related to disease and worsened with fluid overload. Now improv ing with diuresis -Loose stools, continues treatment for C Diff, loose stools improving. -denies N/V -continues marinol 5mg BID with good success -complains of some GERD, improved with Mylanta, increased PPI to 40mg daily 11/22/11 Hospitalization GI issues: -abdominal and pelvic adenopathy with trace ascites based on reports of previous imaging. -CT scan of abdomen, pelvis 11/15/11 demonstrates increasing/coalescing adenopathy in abdome n. Also noted for colitis in cecum/ascending colon -noted to be C diff positive from 11/16/11 Receiving: PRN antiemetics, pain control Imaging: LFTs : wnl Infectious Disease: See current MAR for antimicrobials. Current issues/Bacterial: Afebrile since admission. Scheduled to receive prophylactic levo floxacin upon completion of chemotherapy. For first neutropenic fever, mtz cx, CXR, d/c cip ro and begin Cefepime for empiric broadspectrum coverage. - C-diff is positive by PCR 11/16/11, so started on vancomycin 125 mg po QID. Will need at [facility] a 14 day course Fungal: Prophylactic fluconazole. On hold currently through 11/25/11 with day+11 Vincristine Viral: Prophylactic Acyclovir PCP: Prophylactic Bactrim Pertinent positive culture: none Pertinent negative cultures: none Imaging:See pulmonary section above. Other: N/A Fluid/Electrolyte/Nutrition: See I/O above. Current diet: low bacteria. Tolerating 0-80% of meals with 1.0 L po fluid intake yesterday . Encourage po intake as tolerated with goal of 2L of po fluids daily. MIVF: none at this time TPN: not required at this time Labs: Electrolytes reviewed, notable for hypokalemia, will be repleted per supportive care orders. -No e/o TLS and frequent labs dc'd. -received allopurinol and IVF through chemotherapy, now completed Renal function: Cr elevated 1.6 on admission, now resolved. Stopped IVF with completion of chemotherapy. SCr wnl Other: Weight is significantly increased from admission, rechecked on different scale. I>O, successfully diuresed on 11/18 and continues diuresis daily after assessment. Fluid overload improving. Continuing gentle diuresis on 11/23/11. Weight improving, much closer to her adm it weight. Endocrine:Originally diagnosed with diabetes September 2011, remained on glipizide, however CBG's have been low upon admission. Hold all oral medications. Has mild SSI if needed howeve r patient may not be diabetic, instead hyperglycemic given underlying malignancy. CBG's mini kenyon elevated with steroids. Monitor sugars now off steroids, CBG's improving. Will dc slid ing scale today and follow accuchecks. If remains mildly elevated, could consider change in diet to ADA [id number], or adding oral agent. Dispo: Patient is from [place], [place] and utilizes [employer]. Currently has OHP application pending. Patient requesting to have her care at [facility]. Currently working to have local oncologist to follow patient between chemotherapy cycles. CHARLIE NICHOLSON [facility] [address] [facility] Mailcode: [id number] [facility] [id number] Lala Santana MD - 0 11/22/2011 4:09 PM PST 11/22/11 Inpatient BMT Attending Progress Note Zofia Young is a 51 y.o. female Patient Active Problem List Diagnoses Retroperitoneal mass Burkitt's lymphoma Bone Marrow Transplant Attending Inpatient Progress Note: I was present and rounded with the NPP Brad RADFORD today. The history (as documented today) is reviewed; patient interviewed and personally examined by me. It is noted that patient repor ts: feels somewhat improved today. Less discomfort. Better respiratory efforts.Family member at bedside, and available during counseling session. See MAR for Meds Vitals: Systolic (24hrs), Av mmHg, Min:98 mmHg, Max:138 mmHg Diastolic (24hrs), Av mmHg, Min:58 mmHg, Max:85 mmHg Pulse Av.2 Min: 59 Max: 77 Temp Av.9 C (98.4 F) Min: 36.4 C (97.6 F) Max: 37.6 C (99.6 F) Resp Av Min: 18 Max: 18 SpO2 Av.8 % Min: 96 % Max: 98 % Intake/Output Summary (Last 24 hours) at 11/22/11 1609 Last data filed at 11/22/11 1505 Gross per 24 hour Intake 2582 ml Output 6625 ml Net -4043 ml Current medications: Scheduled Medications Medication Dose Route Frequency Last Rate acyclovir (aka ZOVIRAX) tablet 800 mg 800 mg Oral DAILY dronabinol (aka MARINOL) capsule 5 mg 5 mg Oral BID AC ergocalciferol (aka VITAMIN D2, DRISDOL) capsule 50,000 Units 50,000 Units Oral Q7D filgrastim (aka NEUPOGEN) IV 480 mcg 480 mcg Intravenous QPM AT 1700 480 mcg (11/21/11 1717) insulin lispro (aka HUMALOG) injection 1-16 Units 1-16 Units Subcutaneous MEALS and SN ACK levofloxacin (aka LEVAQUIN) tablet 500 mg 500 mg Oral DAILY omeprazole (aka PRILOSEC) capsule 20 mg 20 mg Oral ONCE omeprazole (aka PRILOSEC) capsule 40 mg 40 mg Oral DAILY oxyCODONE CR (aka OXYCONTIN) tablet 20 mg 20 mg Oral Q12H trimethoprim-sulfamethoxazole (aka BACTRIM DS,SEPTRA DS) 160-800 mg tablet 1 Tab 1 Tab Oral Q - vancomycin 50 mg/mL oral solution 125 mg 125 mg Oral QID Allergies: No Known Allergies Laboratory or other studies: Recent Labs Basename 11/22/11 0005 11/21/11 0040 11/20/11 0010 WBC 5.9 13.6* 6.9 HB 8.3* 8.9* 8.8* HCT 24.9* 26.5* 26.4* PLT 188 237 279 NEUTROPERC 89* 95* 91* BANDPCT -- -- -- LYMPHPERC 9* 4* 7* MONOPERC 0* 0* 2 BASOPERC 0 0 0 EOSPERC 1 1 0* Recent Labs Basename 11/22/11 0005 11/21/11 0040 11/20/11 0010 NA 134 139 137 K 3.6 3.5 3.5 CL 100 103 105 BICARB 30* 30* 28 BUN 9 12 13 CR 0.46* 0.54* 0.65 CA 8.2* 8.1* 7.7* MG 1.7* 1.7* 2.0 PO4 3.1 3.3 3.1 AST 13* 14* 16 ALT 12* 13 14 TBILI 0.9 0.8 0.6 AP 49 50 45 ALB 2.6* 2.7* 2.5* TP 5.3* 5.4* 5.0* No results found for this basename: culture Lab Results Component Value Date APTT 34.0 11/13/2011 11/18/11. Final Pathologic Diagnosis: Cerebrospinal fluid: - No evidence of malignancy Assessment/Plan: Lucila Young is a 51 year old woman with newly diagnosed Burkitt Lymphoma. HIV negative I agree with the NPP s assessment and stated plan of care. Abdominal pain. Has massive intraabdominal adenopathy and has significant abdominal pain re sponsive to morphine and oxyocodone. Awaiting bone marrow results hyperCVAD cycle 1A day 8. Tolerating chemo well. No nausea. LP negative- will give IT meth otrex/ cytarabine twice per cycle x 8 -2nd dose on 11/23/11 Tumor Lysis. No further tumor lysis. Receiving allopurinol daily. Patient will receive Rasb uricase if we experience tumor lysis. Hyperglycemia. Will likely require insulin to assist in the management of her hyperglycemia associated with steroid exposure Breast Nodule. May require follow-up mammography for breast nodule Loose Stool. Cdiff pos- on Vanco day 4 ID. Prophylaxis with acyclovir, fluconazole, levoflox FEN. Eating OK. Was +ve 25LBS since admit and > 5L positive. Diuresing well Discharge and outpatient oncology follow up planning underway Interventions for critical care performed or provided today include: none Patient s primary diagnosis: Burkitt's lymphoma Other diagnoses: acute kidney injury; hyperuricemia; anemia; hypoalbuminemia; steroid induc ed hyperglycemia; Continue present supportive care as outlined in our orders. See changes as indicated in our orders from today. LALA AVINA MD [facility] [phone] [facility] Mailcode: [id number] [employer] [id number] [facility]MENT: [id number] Place of Service:- Inpatient Date of Service: 11/22/2011 Suggested CPT: 75090 - Subsequent, Detailed/High complex 35 min Jordan Saucedo PA-C - 11/22/2011 1:42 PM PST Daily NPP Note - Chemotherapy [facility] Attending: Lala Avina MD PCP: JING Luis Date of Admission: 11/13/11 Hematologic Malignancy: Burkitts lymphoma Reason for admission: Chemotherapy Subjective: Feeling well today. Still having some heartburn, improved greatly with Mylanta. Diarrhea improving Objective: Last Vitals: BP 98/61 | Pulse 69 | Temp 36.7 C (98 F) | RR 18 | Ht 162 cm (5' 3.78") | Wt 92.1 kg (203 lb 0.7 oz) | SpO2 96% | BMI 35.09 kg/(m^2) 24 Hour Vital Min/Max: Systolic (24hrs), Av mmHg, Min:98 mmHg, Max:138 mmHg Diastolic (24hrs), Av mmHg, Min:61 mmHg, Max:85 mmHg Pulse Min: 59 Max: 77 Temp Min: 36.4 C (97.6 F) Max: 37.1 C (98.8 F) Resp Min: 18 Max: 18 SpO2 Min: 96 % Max: 98 % Intake/Output Summary (Last 24 hours) at 11/22/11 1342 Last data filed at 11/22/11 1301 Gross per 24 hour Intake 2382 ml Output 6675 ml Net -4293 ml Physical Exam: General: This is a female in no acute distress. Sitting up in chair HEENT: PERRL. Sclerae anicteric. Mucosa pink and moist without erythema or exudate. Skin: No rash, lesions noted. Chest: Clear to ausculation bilaterally. CV: RRR, no murmurs. Abdomen: Distended but soft/ascites fluid wave present/mild tenderness to palpation in all quadrants, NABS. Improvement in size of abdominal girth. Previous surgical sites c/d/i with no surrounding erythema. Back: LP site clean and dry when observed. Bmbx site with dressing, clean and without surro unding erythema. Serous fluid on dressing Extremities: Pulses strong and equal bilaterally. 2+ edema to lower extremities NeuroPsych: Alert and oriented x 3. Grossly nonfocal exam. : Aguilar in place CVC: RUE PICC line, clean dry and without surrounding erythema Recent Labs Basename 11/22/11 1301 11/22/11 0827 11/22/11 0005 11/21/11 0040 11/20/11 0010 NA -- -- 134 139 137 K -- -- 3.6 3.5 3.5 CL -- -- 100 103 105 BICARB -- -- 30* 30* 28 BUN -- -- 9 12 13 CR -- -- 0.46* 0.54* 0.65 GLU 151* 108* 102* -- -- CA -- -- 8.2* 8.1* 7.7* AST -- -- 13* 14* 16 ALT -- -- 12* 13 14 AP -- -- 49 50 45 TBILI -- -- 0.9 0.8 0.6 TP -- -- 5.3* 5.4* 5.0* ALB -- -- 2.6* 2.7* 2.5* Recent Labs Basename 11/22/11 0005 11/21/11 0040 11/20/11 0010 WBC 5.9 13.6* 6.9 RBC 3.07* 3.24* 3.23* HB 8.3* 8.9* 8.8* HCT 24.9* 26.5* 26.4* PLT 188 237 279 NEUTROPERC 89* 95* 91* BANDPCT -- -- -- LYMPHPERC 9* 4* 7* MONOPERC 0* 0* 2 BASOPERC 0 0 0 EOSPERC 1 1 0* Meds: Reviewed on rounds, see current MAR for medication list Assessment: Hematology: History: (Per Dr. Hutchins's H&P) Ms. Young was in her usual good state of health until the later part of August 2011 when s jerrica developed some abdominal pain. It initially started on her right lateral side and she eden cribed it as sharp and constant. It was associated with a more generalized abdominal pain an d some sweats. She was seen in her local ED on 2010 where she was thought to have a urinary tract infect and was treated with a course of ciprofloxacin and hydrocodone. She developed some nausea with dry heaves and was seen by her PCP on 09/09/2011. She was susan gnosed with diabetes and started on glipizide and Glargine. She was also started on lisinopr il for hypertension. She continued to have nausea with emesis prompting a return visit to he r PCP office on 09/30/2011. She continued to have abdominal pain and had an abdominal ultras ound on 10/01/2011 that showed multiple fluid filled structures with some internal echoes lynne t were adjacent to the pancrease. She was also noted to have a fatty liver. She had a follow -up abdomen/pelvic CT scan on 10/05/2011 that showed numerous masses in the retroperitoneum. The largest of the masses measured 10 cm. She was seen by Dr. Jonathan Aranda, Surgery, for further evaluation of her mass. She preferre d the procedure be done at [facility] and she was referred to Dr. Osiel Almanza. She was seen on 10/02 for her initial evaluation and then she underwent a laparoscopic exploration of her a bdomen on 11/10/2010. biopsy of the mass on 11/10/2010. There was diffuse peritoneal studding seen as well as low volume ascites. She had a normal appearing gall bladder. Biopsies of her right upper and quadrant abdominal wall nodules were obtained. Her ascites was drained and sent for cytology. 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 She currently notes some drenching n ight sweats and fatigue. Her abdomen is tender and continues to have some nausea with emesis . She is able move her bowels. She denies any fevers, chills or cough. She denies any visual changes or focal neurologic symptoms. She has some chest tightness that is not related to a ctivity. She has lost 40 lbs over the past 2 months that is unintentional. She has anorexia but is able to each some. Before 08/2011, she was not taking any routine medications Patient was admitted from clinic for treatment. Current Heme issues: -CBC reviewed and noted for mild anemia. Counts still stable, without need for blood produ ct support. -started chemotherapy HyperCVAD+R 11/15/11, hold Rituxan to end given high tumor burden. No evidence of tumor lysis despite large tumor burden. -started neupogen 11/20/11 per chemo plan -Flow from LP 11/18/11- negative for malignancy -plan to repeat LP on 11/23/11 under fluoro as needs at least 2 LP's per cycle -day +11 Vincristine due 11/25/11 Hospitalization Heme issues: 51 yo F with retroperitoneal node c/w burkitts -biopsy from node on 11/09/10 demonstrates EBV positive lymphoma, FISH t(8:14) with IgHMyc fu adele c/w burkitts lymphoma -underwent bone marrow biopsy in clinic 11/13/11, results show-- Normocellular marrow with t rilineage hematopoiesis, - No evidence of marrow involvement by B cell lymphoma -Underwent LP with IT MTX under fluoro on 11/18 to r/o TECHNICAL INSTRUCTOR COURSE DEVELOPER involvement, Done under fluoro d /t pt body habitus with significant sacral edema and inability to get into position d/t sign ficantly enlarged abdomen. -LDH mildly elevated on admission, now wnl. -staging CT scans ordered of Chest, abdomen and pelvis 11/14/11: 1. Interim increase in mediastinal, hilar, retroperitoneal and mesenteric adenopathy yaneth tible with progression of disease. 2. Wall thickening of the cecum, ascending colon through the mid transverse colon, compatible with colitis, infectious or inflammatory. 3. Several p ulmonary groundglass nodules, which may be old/post inflammatory, however may represent aty pical infection such as fungal, particularly if the patient is immunocompromised. 4. Left br east soft tissue nodules may represent intramammary lymph nodes; however consider mammogra m if not recently performed. (will require follow-up) -start Dexamethasone 40mg daily (divided into 2 doses) 11/14/11, continued through chemother apy completion Chemotherapy regimen: Pt receiving cytoxan 300 mg/m2 IV q12 hr x 6 doses with mesna IV CI o teodoro 3 days for bladder protection. She is also receiving dexamethasone 40 mg po daily days 1 - 4 . She is further scheduled to receive doxorubicin 50 mg/m2 IVP on day 4 (11/19/11) and v incristine 2 mg IVP on days 4 (11/19/11) and 11 (11/26/11). Anticipate either daily Neupogen or single dose Neulasta beginning 24 hours after chemotherapy completes pending pt's dischar ge plan. Continue IV hydration, premeds and antiemetics as ordered. Monitor for acute toxic ities. Growth factor: Daily neupogen until ANC >1000 Labs: Continue to check CBC daily Transfusion parameters: Transfuse PRBCs for HCT <24% Transfuse PPH for platelet count <10,000 sooner PRN s/s bleeding. Cardiovascular: Current cardiovascular issues: -pt with significant fluid overload, but tolerating well. -diuresing actively - started on 11/18/11, continues daily with good effect Hospitalization CV issues: -admitted from the clinic with mild hypotension 100 systolic -hold outpatient lisinopril 10mg for now -order TTE to evaluate baseline function - LVEF 60-65% Pulmonary: Current pulmonary issues: -no acute issues -sats stable on RA Hospitalization pulmonary issues: As above Imaging: no current imaging GI: Current GI issues: Severe abdominal distention related to disease and worsened with fluid overload. Now improv ing with diuresis -Loose stools, continues treatment for C Diff, loose stools improving. -denies N/V -continues marinol 5mg BID with good success -complains of some GERD, improved with Mylanta, increased PPI to 40mg daily 11/22/11 Hospitalization GI issues: -abdominal and pelvic adenopathy with trace ascites based on reports of previous imaging. -CT scan of abdomen, pelvis 11/15/11 demonstrates increasing/coalescing adenopathy in abdome n. Also noted for colitis in cecum/ascending colon -noted to be C diff positive from 11/16/11 Receiving: PRN antiemetics, pain control Imaging: LFTs : wnl Infectious Disease: See current MAR for antimicrobials. Current issues/Bacterial: Afebrile since admission. Scheduled to receive prophylactic levo floxacin upon completion of chemotherapy. For first neutropenic fever, mtz cx, CXR, d/c cip ro and begin Cefepime for empiric broadspectrum coverage. - C-diff is positive by PCR 11/16/11, so started on vancomycin 125 mg po QID. Will need at l east a 14 day course Fungal: Prophylactic fluconazole. On hold currently through 11/25/11 with day+11 Vincristine Viral: Prophylactic Acyclovir PCP: Prophylactic Bactrim Pertinent positive culture: none Pertinent negative cultures: none Imaging:See pulmonary section above. Other: N/A Fluid/Electrolyte/Nutrition: See I/O above. Current diet: low bacteria. Tolerating 45-100% of meals with 2.4 L po fluid intake yesterd ay. Encourage po intake as tolerated with goal of 2L of po fluids daily. MIVF: none at this time TPN: not required at this time Labs: Electrolytes reviewed and requires magnesium per protocol -No e/o TLS and frequent labs dc'd. -received allopurinol and IVF through chemotherapy, now completed Renal function: Cr elevated 1.6 on admission, now resolved. Stopped IVF with completion of chemotherapy. SCr wnl Other: Weight is significantly increased from admission, rechecked on different scale. I>O, successfully diuresed on 11/18 and continues diuresis daily after assessment. Fluid overload improving. Plan on aguilar catheter removal 11/22/11 Endocrine:Originally diagnosed with diabetes September 2011, remained on glipizide, however CBG's have been low upon admission. Hold all oral medications. Has mild SSI if needed howeve r patient may not be diabetic, instead hyperglycemic given underlying malignancy. CBG's mini kenyon elevated with steroids. Monitor sugars now off steroids, CBG's improving. Dispo: Patient is from [place], [place] and utilizes [facility]. Currently has OHP application pending. Patient requesting to have her care at [facility]. Currently working to have local oncologist to follow patient between chemotherapy cycles. JORDAN SALINAS PA-C [facility] K[facility] [phone] [facility] Mailcode: [id number] [place] [facility] [id number] Lala Santana MD - 11/21/2011 1:37 PM PST 11/21/11 Inpatient BMT Attending Progress Note Zofia Young is a 51 y.o. female Patient Active Problem List Diagnoses Retroperitoneal mass Burkitt's lymphoma Bone Marrow Transplant Attending Inpatient Progress Note: I was present and rounded with the NPP Brad RADFORD today. The history (as documented today) is reviewed; patient interviewed and personally examined by me. It is noted that patient repor ts: feels somewhat improved today. Less discomfort. Better respiratory efforts.Family member at bedside, and available during counseling session. See MAR for Meds Vitals: Systolic (24hrs), Av mmHg, Min:98 mmHg, Max:106 mmHg Diastolic (24hrs), Av mmHg, Min:55 mmHg, Max:63 mmHg Pulse Av.4 Min: 53 Max: 77 Temp Av.7 C (98.1 F) Min: 36.3 C (97.3 F) Max: 37.2 C (99 F) Resp Av.7 Min: 16 Max: 18 SpO2 Av.3 % Min: 94 % Max: 97 % Intake/Output Summary (Last 24 hours) at 11/21/11 1337 Last data filed at 11/21/11 1223 Gross per 24 hour Intake 1630 ml Output 5400 ml Net -3770 ml Current medications: Scheduled Medications Medication Dose Route Frequency Last Rate acyclovir (aka ZOVIRAX) tablet 800 mg 800 mg Oral DAILY dronabinol (aka MARINOL) capsule 5 mg 5 mg Oral BID AC ergocalciferol (aka VITAMIN D2, DRISDOL) capsule 50,000 Units 50,000 Units Oral Q7D filgrastim (aka NEUPOGEN) IV 480 mcg 480 mcg Intravenous QPM AT 1700 480 mcg (11/20/11 1702) insulin lispro (aka HUMALOG) injection 1-16 Units 1-16 Units Subcutaneous MEALS and SN ACK levofloxacin (aka LEVAQUIN) tablet 500 mg 500 mg Oral DAILY omeprazole (aka PRILOSEC) capsule 20 mg 20 mg Oral DAILY oxyCODONE CR (aka OXYCONTIN) tablet 20 mg 20 mg Oral Q12H trimethoprim-sulfamethoxazole (aka BACTRIM DS,SEPTRA DS) 160-800 mg tablet 1 Tab 1 Tab Oral Q MO-WE- vancomycin 50 mg/mL oral solution 125 mg 125 mg Oral QID Allergies: No Known Allergies Laboratory or other studies: Recent Labs Basename 11/21/11 0040 11/20/11 0010 11/19/11 0001 WBC 13.6* 6.9 9.0 HB 8.9* 8.8* 9.4* HCT 26.5* 26.4* 28.0* PLT 237 279 303 NEUTROPERC 95* 91* 96* BANDPCT -- -- -- LYMPHPERC 4* 7* 1* MONOPERC 0* 2 3 BASOPERC 0 0 0 EOSPERC 1 0* 0* Recent Labs Basename 11/21/11 0040 11/20/11 0010 11/19/11 0001 NA 139 137 136 K 3.5 3.5 4.1 CL 103 105 107 BICARB 30* 28 24 BUN 12 13 18 CR 0.54* 0.65 0.63 CA 8.1* 7.7* 7.8* MG 1.7* 2.0 1.4* PO4 3.3 3.1 3.5 AST 14* 16 16 ALT 13 14 15 TBILI 0.8 0.6 0.5 AP 50 45 46 ALB 2.7* 2.5* 2.6* TP 5.4* 5.0* 5.5* No results found for this basename: culture Lab Results Component Value Date APTT 34.0 11/13/2011 11/18/11. Final Pathologic Diagnosis: Cerebrospinal fluid: - No evidence of malignancy Assessment/Plan: Lucila Young is a 51 year old woman with newly diagnosed Burkitt Lymphoma. HIV negative I agree with the NPP s assessment and stated plan of care. Abdominal pain. Has massive intraabdominal adenopathy and has significant abdominal pain re sponsive to morphine and oxyocodone. Awaiting bone marrow results hyperCVAD cycle 1A day 7. Tolerating chemo well. No nausea. Awaiting LP flow. LP negative- will give IT methotrex/ cytarabine twice per cycle x 8 -2nd dose on 11/23/11 Tumor Lysis. No further tumor lysis. Receiving allopurinol daily. Patient will receive Rasb uricase if we experience tumor lysis. Hyperglycemia. Will likely require insulin to assist in the management of her hyperglycemia associated with steroid exposure Breast Nodule. May require follow-up mammography for breast nodule Loose Stool. Cdiff pos- on Vanco day 4 . ID. Prophylaxis with acyclovir, fluconazole, levoflox FEN. Eating OK. Was +ve 25LBS since admit and > 5L positive. Diuresing well Discharge and outpatient oncology follow up planning underway Interventions for critical care performed or provided today include: none Patient s primary diagnosis: Burkitt's lymphoma Other diagnoses: acute kidney injury; hyperuricemia; anemia; hypoalbuminemia; steroid induc ed hyperglycemia; Continue present supportive care as outlined in our orders. See changes as indicated in our orders from today. LALA AVINA MD [facility] [address] [facility] Mailcode: [id number] [employer] [id number] [facility]: [id number] Place of Service:- Inpatient Date of Service: 11/21/2011 Suggested CPT: 08694 - Subsequent, Detailed/High complex 35 min Jordan Saucedo PA-C - 11/21/2011 10:08 AM PST Daily NPP Note - Chemotherapy Ad[facility] Attending: Lala Avina MD PCP: JING Luis Date of Admission: 11/13/11 Hematologic Malignancy: Burkitts lymphoma Reason for admission: Chemotherapy Subjective: Denies complaints today. Up and active in room and hallways. Feels abdomen is shrinking Objective: Last Vitals: BP 105/56 | Pulse 73 | Temp 36.9 C (98.4 F) | RR 18 | Ht 162 cm (5' 3.78") | Wt 102.8 kg (226 lb 10.1 oz) | SpO2 94% | BMI 39.17 kg/(m^2) 24 Hour Vital Min/Max: Systolic (24hrs), Av mmHg, Min:96 mmHg, Max:106 mmHg Diastolic (24hrs), Av mmHg, Min:55 mmHg, Max:63 mmHg Pulse Min: 53 Max: 77 Temp Min: 36.2 C (97.1 F) Max: 36.9 C (98.4 F) Resp Min: 16 Max: 18 SpO2 Min: 94 % Max: 96 % Intake/Output Summary (Last 24 hours) at 11/21/11 1008 Last data filed at 11/21/11 0600 Gross per 24 hour Intake 1830 ml Output 3725 ml Net -1895 ml Physical Exam: General: This is a female in no acute distress. Active in room HEENT: PERRL. Sclerae anicteric. Mucosa pink and moist without erythema or exudate. Skin: No rash, lesions noted. Chest: Clear to ausculation bilaterally. CV: RRR, no murmurs. Abdomen: Distended but soft/ascites fluid wave present/mild tenderness to palpation in all quadrants, NABS. Improvement in size of abdominal girth. Previous surgical sites c/d/i with no surrounding erythema. Back: LP site clean and dry when observed. Bmbx site with dressing, clean and without surro unding erythema. Serous fluid on dressing Extremities: Pulses strong and equal bilaterally. 2+ edema to lower extremities NeuroPsych: Alert and oriented x 3. Grossly nonfocal exam. CVC: RUE PICC line, clean dry and without surrounding erythema Recent Labs Basename 11/21/11 0801 11/21/11 0040 11/20/11 2159 11/20/11 0010 11/19/11 0001 NA -- 139 -- 137 136 K -- 3.5 -- 3.5 4.1 CL -- 103 -- 105 107 BICARB -- 30* -- 28 24 BUN -- 12 -- 13 18 CR -- 0.54* -- 0.65 0.63 GLU 103* 99 116* -- -- CA -- 8.1* -- 7.7* 7.8* AST -- 14* -- 16 16 ALT -- 13 -- 14 15 AP -- 50 -- 45 46 TBILI -- 0.8 -- 0.6 0.5 TP -- 5.4* -- 5.0* 5.5* ALB -- 2.7* -- 2.5* 2.6* Recent Labs Basename 11/21/11 0040 11/20/11 0010 11/19/11 0001 WBC 13.6* 6.9 9.0 RBC 3.24* 3.23* 3.38* HB 8.9* 8.8* 9.4* HCT 26.5* 26.4* 28.0* PLT 237 279 303 NEUTROPERC 95* 91* 96* BANDPCT -- -- -- LYMPHPERC 4* 7* 1* MONOPERC 0* 2 3 BASOPERC 0 0 0 EOSPERC 1 0* 0* Meds: Reviewed on rounds, see current MAR for medication list Assessment: Hematology: History: (Per Dr. Hutchins's H&P) Ms. Young was in her usual good state of health until the later part of August 2011 when s jerrica developed some abdominal pain. It initially started on her right lateral side and she eden cribed it as sharp and constant. It was associated with a more generalized abdominal pain an d some sweats. She was seen in her local ED on 2010 where she was thought to have a urinary tract infect and was treated with a course of ciprofloxacin and hydrocodone. She developed some nausea with dry heaves and was seen by her PCP on 09/09/2011. She was susan gnosed with diabetes and started on glipizide and Glargine. She was also started on lisinopr il for hypertension. She continued to have nausea with emesis prompting a return visit to [facility] PCP office on 09/30/2011. She continued to have abdominal pain and had an abdominal ultras ound on 10/01/2011 that showed multiple fluid filled structures with some internal echoes lynne t were adjacent to the pancrease. She was also noted to have a fatty liver. She had a follow -up abdomen/pelvic CT scan on 10/05/2011 that showed numerous masses in the retroperitoneum. The largest of the masses measured 10 cm. She was seen by Dr. Jonathan Aranda, Surgery, for further evaluation of her mass. She preferre d the procedure be done at [facility] and she was referred to Dr. Osiel Almanza. She was seen on 10/02 for her initial evaluation and then she underwent a laparoscopic exploration of her a bdomen on 11/10/2010. biopsy of the mass on 11/10/2010. There was diffuse peritoneal studding seen as well as low volume ascites. She had a normal appearing gall bladder. Biopsies of her right upper and quadrant abdominal wall nodules were obtained. Her ascites was drained and sent for cytology. 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 She currently notes some drenching n ight sweats and fatigue. Her abdomen is tender and continues to have some nausea with emesis . She is able move her bowels. She denies any fevers, chills or cough. She denies any visual changes or focal neurologic symptoms. She has some chest tightness that is not related to a ctivity. She has lost 40 lbs over the past 2 months that is unintentional. She has anorexia but is able to each some. Before 08/2011, she was not taking any routine medications Patient was admitted from clinic for treatment. Current Heme issues: -CBC reviewed and noted for mild anemia, mild leukocytosis 2/2 neupogen. Counts still stab le, without need for blood product support. -started chemotherapy HyperCVAD+R 11/15/11, hold Rituxan to end given high tumor burden. No evidence of tumor lysis despite large tumor burden. -started neupogen 11/20/11 per chemo plan -Flow from LP 11/18/11- PENDING -plan to repeat LP on 11/23/11 under fluoro as needs at least 2 LP's per cycle -day +11 Vincristine due 11/25/11 Hospitalization Heme issues: 51 yo F with retroperitoneal node c/w burkitts -biopsy from node on 11/09/10 demonstrates EBV positive lymphoma, FISH t(8:14) with IgHMyc fu adele c/w burkitts lymphoma -underwent bone marrow biopsy in clinic 1/13/12, results show-- Normocellular marrow with t rilineage hematopoiesis, - No evidence of marrow involvement by B cell lymphoma -Underwent LP with IT MTX under fluoro on 11/18 to r/o TECHNICAL INSTRUCTOR COURSE DEVELOPER involvement, Done under fluoro d /t pt body habitus with significant sacral edema and inability to get into position d/t sign ficantly enlarged abdomen. -LDH mildly elevated on admission, now wnl. -staging CT scans ordered of Chest, abdomen and pelvis 11/14/11: 1. Interim increase in mediastinal, hilar, retroperitoneal and mesenteric adenopathy yaneth tible with progression of disease. 2. Wall thickening of the cecum, ascending colon through the mid transverse colon, compatible with colitis, infectious or inflammatory. 3. Several p ulmonary groundglass nodules, which may be old/post inflammatory, however may represent aty pical infection such as fungal, particularly if the patient is immunocompromised. 4. Left br east soft tissue nodules may represent intramammary lymph nodes; however consider mammogra m if not recently performed. (will require follow-up) -start Dexamethasone 40mg daily (divided into 2 doses) 11/14/11, continued through chemother apy completion Chemotherapy regimen: Pt receiving cytoxan 300 mg/m2 IV q12 hr x 6 doses with mesna IV CI o teodoro 3 days for bladder protection. She is also receiving dexamethasone 40 mg po daily days 1 - 4 . She is further scheduled to receive doxorubicin 50 mg/m2 IVP on day 4 (11/19/11) and v incristine 2 mg IVP on days 4 (11/19/11) and 11 (11/26/11). Anticipate either daily Neupogen or single dose Neulasta beginning 24 hours after chemotherapy completes pending pt's dischar ge plan. Continue IV hydration, premeds and antiemetics as ordered. Monitor for acute toxic ities. Growth factor: Daily neupogen until ANC >1000 Labs: Continue to check CBC daily Transfusion parameters: Transfuse PRBCs for HCT <24% Transfuse PPH for platelet count <10,000 sooner PRN s/s bleeding. Cardiovascular: Current cardiovascular issues: -pt with significant fluid overload, but tolerating well. -diuresing actively - started on 11/18/11, continues daily Hospitalization CV issues: -admitted from the clinic with mild hypotension 100 systolic -hold outpatient lisinopril 10mg for now -order TTE to evaluate baseline function - LVEF 60-65% Pulmonary: Current pulmonary issues: -no acute issues -sats stable on RA Hospitalization pulmonary issues: As above Imaging: no current imaging GI: Current GI issues: Severe abdominal distention related to disease and worsened with fluid overload. Now improv ing with diuresis -Loose stools, continues treatment for C Diff -denies N/V -continues marinol 5mg BID with good success Hospitalization GI issues: -abdominal and pelvic adenopathy with trace ascites based on reports of previous imaging. -CT scan of abdomen, pelvis 11/15/11 demonstrates increasing/coalescing adenopathy in abdome n. Also noted for colitis in cecum/ascending colon -noted to be C diff positive from 11/16/11 Receiving: PRN antiemetics, pain control Imaging: LFTs : wnl Infectious Disease: See current MAR for antimicrobials. Current issues/Bacterial: Afebrile since admission. Scheduled to receive prophylactic levo floxacin upon completion of chemotherapy. For first neutropenic fever, mtz cx, CXR, d/c cip ro and begin Cefepime for empiric broadspectrum coverage. - C-diff is positive by PCR 11/16/11, so started on vancomycin 125 mg po QID Fungal: Prophylactic fluconazole. On hold currently through 11/25/11 with day+11 Vincristine Viral: Prophylactic Acyclovir PCP: Prophylactic Bactrim Pertinent positive culture: none Pertinent negative cultures: none Imaging:See pulmonary section above. Other: N/A Fluid/Electrolyte/Nutrition: See I/O above. Current diet: low bacteria. Tolerating 80-100% of meals with 2.2 L po fluid intake yesterd ay. Encourage po intake as tolerated with goal of 2L of po fluids daily. MIVF: none at this time TPN: not required at this time Labs: Electrolytes reviewed and requires magnesium per protocol -No e/o TLS and frequent labs dc'd. -received allopurinol and IVF through chemotherapy, now completed Renal function: Cr elevated 1.6 on admission, now resolved. Stopped IVF with completion of chemotherapy Other: Weight is significantly increased from admission, rechecked on different scale. I>O, successfully diuresed on 11/18 and continues diuresis daily after assessment. Endocrine:Originally diagnosed with diabetes September 2011, remained on glipizide, however CBG's have been low upon admission. Hold all oral medications. Has mild SSI if needed howeve r patient may not be diabetic, instead hyperglycemic given underlying malignancy. CBG's mini kenyon elevated with steroids. Monitor sugars now off steroids, CBG's improving. Dispo: Patient is from [place], [place] and utilizes [facility]. Currently has [place] application pending. Patient requesting to have her care at [facility]. Currently working to have local oncologist to follow patient between chemotherapy cycles. JORDAN SALINAS PA-C [facility] KPV [id number] [facility] Mailcode: [id number] [place] [facility] [id number] Lala Santana MD - 11/20/2011 2:20 PM PST 11/20/11 Inpatient BMT Attending Progress Note Zofia Young is a 51 y.o. female Patient Active Problem List Diagnoses Retroperitoneal mass Burkitt's lymphoma Bone Marrow Transplant Attending Inpatient Progress Note: I was present and rounded with the NPP Brad RADFORD today. The history (as documented today) is reviewed; patient interviewed and personally examined by me. It is noted that patient repor ts: feels somewhat improved today. Less discomfort. Better respiratory efforts.Family member at bedside, and available during counseling session. See MAR for Meds Vitals: Systolic (24hrs), Av mmHg, Min:96 mmHg, Max:132 mmHg Diastolic (24hrs), Av mmHg, Min:58 mmHg, Max:80 mmHg Pulse Av.5 Min: 62 Max: 74 Temp Av.4 C (97.6 F) Min: 36.1 C (97 F) Max: 36.8 C (98.3 F) Resp Av Min: 16 Max: 16 SpO2 Av.8 % Min: 96 % Max: 98 % Intake/Output Summary (Last 24 hours) at 11/20/11 1421 Last data filed at 11/20/11 1200 Gross per 24 hour Intake 3195.8 ml Output 4825 ml Net -1629.2 ml Current medications: Scheduled Medications Medication Dose Route Frequency Last Rate acyclovir (aka ZOVIRAX) tablet 800 mg 800 mg Oral DAILY dronabinol (aka MARINOL) capsule 5 mg 5 mg Oral BID AC ergocalciferol (aka VITAMIN D2, DRISDOL) capsule 50,000 Units 50,000 Units Oral Q7D filgrastim (aka NEUPOGEN) IV 480 mcg 480 mcg Intravenous QPM AT 1700 fluconazole (aka DIFLUCAN) tablet 400 mg 400 mg Oral DAILY insulin lispro (aka HUMALOG) injection 1-16 Units 1-16 Units Subcutaneous MEALS and SN ACK levofloxacin (aka LEVAQUIN) tablet 500 mg 500 mg Oral DAILY omeprazole (aka PRILOSEC) capsule 20 mg 20 mg Oral DAILY oxyCODONE CR (aka OXYCONTIN) tablet 20 mg 20 mg Oral Q12H trimethoprim-sulfamethoxazole (aka BACTRIM DS,SEPTRA DS) 160-800 mg tablet 1 Tab 1 Tab Oral Q MO-WE vancomycin 50 mg/mL oral solution 125 mg 125 mg Oral QID Allergies: No Known Allergies Laboratory or other studies: Recent Labs Basename 11/20/11 0010 11/19/11 0001 11/18/11 0050 WBC 6.9 9.0 6.3 HB 8.8* 9.4* 9.4* HCT 26.4* 28.0* 27.6* PLT 279 303 371 NEUTROPERC 91* 96* 95* BANDPCT -- -- -- LYMPHPERC 7* 1* 4* MONOPERC 2 3 1* BASOPERC 0 0 0 EOSPERC 0* 0* 0* Recent Labs Basename 11/20/11 0010 11/19/11 0001 11/18/11 1856 11/18/11 0710 11/18/11 0050 NA 137 136 137 -- -- K 3.5 4.1 4.3 -- -- CL 105 107 108 -- -- BICARB 28 24 22 -- -- BUN 13 18 19 -- -- CR 0.65 0.63 0.66 -- -- CA 7.7* 7.8* 7.8* -- -- MG 2.0 1.4* -- -- 1.7* PO4 3.1 3.5 -- 3.4 -- AST 16 16 -- -- 22 ALT 14 15 -- -- 17 TBILI 0.6 0.5 -- -- 0.4 AP 45 46 -- -- 47 ALB 2.5* 2.6* -- -- 2.4* TP 5.0* 5.5* -- -- 5.5* No results found for this basename: culture Lab Results Component Value Date APTT 34.0 11/13/2011 Assessment/Plan: Lucila Young is a 51 year old woman with newly diagnosed Burkitt Lymphoma. HIV negative I agree with the NPP s assessment and stated plan of care. Abdominal pain. Has massive intraabdominal adenopathy and has significant abdominal pain re sponsive to morphine and oxyocodone. Awaiting bone marrow results hyperCVAD cycle 1A day 6. Tolerating chemo well. No nausea. Awaiting LP flow. If LP negativ e- will give IT methotrex/ cytarabine twice per cycle x 8 - next dose on 11/23/11 Tumor Lysis. No further tumor lysis. Receiving allopurinol daily. Patient will receive Rasb uricase if we experience tumor lysis. Hyperglycemia. Will likely require insulin to assist in the management of her hyperglycemia associated with steroid exposure Breast Nodule. May require follow-up mammography for breast nodule Loose Stool. Cdiff pos- on Vanco day 2. ID. Prophylaxis with acyclovir, fluconazole, levoflox FEN. Eating OK. Was +ve 25LBS since admit and > 5L positive. Diuresing well Discharge and outpatient oncology follow up planning underway Interventions for critical care performed or provided today include: none Patient s primary diagnosis: Burkitt's lymphoma Other diagnoses: acute kidney injury; hyperuricemia; anemia; hypoalbuminemia; steroid induc ed hyperglycemia; Continue present supportive care as outlined in our orders. See changes as indicated in our orders from today. LALA AVINA MD [facility] KP [address] [facility] Mailcode: [id number] [employer] [id number] [facility] DEPARTMENT: [id number]- [facility] Place of Service:- Inpatient Date of Service: 11/20/2011 Suggested CPT: 29187 - Subsequent, Detailed/High complex 35 min ordan Salinas PA-C - 11/20/2011 1:30 PM PST Daily NPP Note - Chemotherapy [facility] Attending: Lala Avina MD PCP: JING Luis Date of Admission: 11/13/11 Hematologic Malignancy: Burkitts lymphoma Reason for admission: Chemotherapy Subjective: Feeling better today. Eating and drinking well. Denies nausea. LP site continu es to leak. Objective: Last Vitals: BP 96/58 | Pulse 66 | Temp 36.2 C (97.1 F) | RR 16 | Ht 162 cm (5' 3.78") | Wt 102.8 kg (226 lb 10.1 oz) | SpO2 96% | BMI 39.17 kg/(m^2) 24 Hour Vital Min/Max: Systolic (24hrs), Av mmHg, Min:96 mmHg, Max:132 mmHg Diastolic (24hrs), Av mmHg, Min:58 mmHg, Max:80 mmHg Pulse Min: 62 Max: 74 Temp Min: 36.1 C (97 F) Max: 36.8 C (98.3 F) Resp Min: 16 Max: 16 SpO2 Min: 96 % Max: 98 % Intake/Output Summary (Last 24 hours) at 11/20/11 1330 Last data filed at 11/20/11 1200 Gross per 24 hour Intake 3615.8 ml Output 5725 ml Net -2109.2 ml Physical Exam: General: This is a female in no acute distress. Sitting up in bed HEENT: PERRL. Sclerae anicteric. Mucosa pink and moist without erythema or exudate. Skin: No rash, lesions noted. Chest: Clear to ausculation bilaterally. CV: RRR, no murmurs. Abdomen: Distended but soft/ascites fluid wave present/mild tenderness to palpation in all quadrants, NABS.Previous surgical sites c/d/i with no surrounding erythema. Back: LP site clean and dry when observed Extremities: Pulses strong and equal bilaterally. 2+ edema to lower extremities NeuroPsych: Alert and oriented x 3. Grossly nonfocal exam. CVC: RUE PICC line, clean dry and without surrounding erythema Recent Labs Basename 11/20/11 0754 11/20/11 0010 11/19/11 2157 11/19/11 0001 11/18/11 1856 11/18/11 005 0 NA -- 137 -- 136 137 -- K -- 3.5 -- 4.1 4.3 -- CL -- 105 -- 107 108 -- BICARB -- 28 -- 24 22 -- BUN -- 13 -- 18 19 -- CR -- 0.65 -- 0.63 0.66 -- GLU 89 173* 194* -- -- -- CA -- 7.7* -- 7.8* 7.8* -- AST -- 16 -- 16 -- 22 ALT -- 14 -- 15 -- 17 AP -- 45 -- 46 -- 47 TBILI -- 0.6 -- 0.5 -- 0.4 TP -- 5.0* -- 5.5* -- 5.5* ALB -- 2.5* -- 2.6* -- 2.4* Recent Labs Basename 11/20/11 0010 11/19/11 0001 11/18/11 0050 WBC 6.9 9.0 6.3 RBC 3.23* 3.38* 3.36* HB 8.8* 9.4* 9.4* HCT 26.4* 28.0* 27.6* PLT 279 303 371 NEUTROPERC 91* 96* 95* BANDPCT -- -- -- LYMPHPERC 7* 1* 4* MONOPERC 2 3 1* BASOPERC 0 0 0 EOSPERC 0* 0* 0* Meds: Reviewed on rounds, see current MAR for medication list Assessment: Hematology: History: (Per Dr. Hutchins's H&P) Ms. Young was in her usual good state of health until the later part of August 2011 when s he developed some abdominal pain. It initially started on her right lateral side and she eden cribed it as sharp and constant. It was associated with a more generalized abdominal pain an d some sweats. She was seen in her local ED on 2010 where she was thought to have a urinary tract infect and was treated with a course of ciprofloxacin and hydrocodone. She developed some nausea with dry heaves and was seen by her PCP on 09/09/2011. She was susan gnosed with diabetes and started on glipizide and Glargine. She was also started on lisinopr il for hypertension. She continued to have nausea with emesis prompting a return visit to he r PCP office on 09/30/2011. She continued to have abdominal pain and had an abdominal ultras ound on 10/01/2011 that showed multiple fluid filled structures with some internal echoes lynne t were adjacent to the pancrease. She was also noted to have a fatty liver. She had a follow -up abdomen/pelvic CT scan on 10/05/2011 that showed numerous masses in the retroperitoneum. The largest of the masses measured 10 cm. She was seen by Dr. Jonathan Aranda, Surgery, for further evaluation of her mass. She preferre d the procedure be done at [facility] and she was referred to Dr. Osiel Almanza. She was seen on 10/02 for her initial evaluation and then she underwent a laparoscopic exploration of her a bdomen on 11/10/2010. biopsy of the mass on 11/10/2010. There was diffuse peritoneal studding seen as well as low volume ascites. She had a normal appearing gall bladder. Biopsies of her right upper and quadrant abdominal wall nodules were obtained. Her ascites was drained and sent for cytology. 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 She currently notes some drenching n ight sweats and fatigue. Her abdomen is tender and continues to have some nausea with emesis . She is able move her bowels. She denies any fevers, chills or cough. She denies any visual changes or focal neurologic symptoms. She has some chest tightness that is not related to a ctivity. She has lost 40 lbs over the past 2 months that is unintentional. She has anorexia but is able to each some. Before 08/2011, she was not taking any routine medications Patient was admitted from clinic for treatment. Current Heme issues: -CBC reviewed and noted for mild anemia. Counts still stable, without need for blood produ ct support. -started chemotherapy HyperCVAD+R 11/15/11, hold Rituxan to end given high tumor burden. No evidence of tumor lysis despite large tumor burden. -starting neupogen 11/20/11 per chemo plan Hospitalization Heme issues: 51 yo F with retroperitoneal node c/w burkitts -biopsy from node on 11/09/10 demonstrates EBV positive lymphoma, FISH t(8:14) with IgHMyc fu adele c/w burkitts lymphoma -underwent bone marrow biopsy in clinic 11/13/11, results show-- Normocellular marrow with t rilineage hematopoiesis, - No evidence of marrow involvement by B cell lymphoma -Underwent LP with IT MTX under fluoro on 11/18 to r/o [employer] INSTRU[employer]SE DEVELOPER involvement, Done under fluoro d /t pt body habitus with significant sacral edema and inability to get into position d/t sign ficantly enlarged abdomen. -LDH mildly elevated on admission, now wnl. -staging CT scans ordered of Chest, abdomen and pelvis 11/14/11: 1. Interim increase in mediastinal, hilar, retroperitoneal and mesenteric adenopathy yaneth tible with progression of disease. 2. Wall thickening of the cecum, ascending colon through the mid transverse colon, compatible with colitis, infectious or inflammatory. 3. Several p ulmonary groundglass nodules, which may be old/post inflammatory, however may represent aty pical infection such as fungal, particularly if the patient is immunocompromised. 4. Left br east soft tissue nodules may represent intramammary lymph nodes; however consider mammogra m if not recently performed. (will require follow-up) -start Dexamethasone 40mg daily (divided into 2 doses) 11/14/11, continued through chemother apy completion Chemotherapy regimen: Pt receiving cytoxan 300 mg/m2 IV q12 hr x 6 doses with mesna IV CI o teodoro 3 days for bladder protection. She is also receiving dexamethasone 40 mg po daily days 1 - 4 . She is further scheduled to receive doxorubicin 50 mg/m2 IVP on day 4 (11/19/11) and v incristine 2 mg IVP on days 4 (11/19/11) and 11 (11/26/11). Anticipate either daily Neupogen or single dose Neulasta beginning 24 hours after chemotherapy completes pending pt's dischar ge plan. Continue IV hydration, premeds and antiemetics as ordered. Monitor for acute toxic ities. Growth factor: Daily neupogen until ANC >1000 Labs: Continue to check CBC daily Transfusion parameters: Transfuse PRBCs for HCT <24% Transfuse PPH for platelet count <10,000 sooner PRN s/s bleeding. Cardiovascular: Current cardiovascular issues: -pt with significant fluid overload, but tolerating well. -diuresing actively - started on 11/18/11, continues daily Hospitalization CV issues: -admitted from the clinic with mild hypotension 100 systolic -hold outpatient lisinopril 10mg for now -order TTE to evaluate baseline function - LVEF 60-65% Pulmonary: Current pulmonary issues: -no acute issues -sats stable on RA Hospitalization pulmonary issues: As above Imaging: no current imaging GI: Current GI issues: Severe abdominal distention related to disease and worsened with fluid overload. Now improv ing with diuresis -Loose stools, continues treatment for C Diff -denies N/V -continues marinol 5mg BID with good success Hospitalization GI issues: -abdominal and pelvic adenopathy with trace ascites based on reports of previous imaging. -CT scan of abdomen, pelvis 11/15/11 demonstrates increasing/coalescing adenopathy in abdome n. Also noted for colitis in cecum/ascending colon -noted to be C diff positive from 11/16/11 Receiving: PRN antiemetics, pain control Imaging: LFTs : wnl Infectious Disease: See current MAR for antimicrobials. Current issues/Bacterial: Afebrile since admission. Scheduled to receive prophylactic levo floxacin upon completion of chemotherapy. For first neutropenic fever, mtz cx, CXR, d/c cip ro and begin Cefepime for empiric broadspectrum coverage. - C-diff is positive by PCR 11/16/11, so started on vancomycin 125 mg po QID Fungal: Prophylactic fluconazole Viral: Prophylactic Acyclovir PCP: Prophylactic Bactrim Pertinent positive culture: none Pertinent negative cultures: none Imaging:See pulmonary section above. Other: N/A Fluid/Electrolyte/Nutrition: See I/O above. Current diet: low bacteria. Tolerating 100% of meals with 3.0 L po fluid intake yesterday. Encourage po intake as tolerated with goal of 2L of po fluids daily. MIVF: none at this time TPN: not required at this time Labs: Electrolytes reviewed and requires no replacements today -No e/o TLS and frequent labs dc'd. -received allopurinol and IVF through chemotherapy, now completed Renal function: Cr elevated 1.6 on admission, now resolved. Stopped IVF with completion of chemotherapy Other: Weight is significantly increased from admission, rechecked on different scale. I>O, successfully diuresed on 11/18 and will continue to diurese today. Endocrine:Originally diagnosed with diabetes September 2011, remained on glipizide, however CBG's have been low upon admission. Hold all oral medications. Has mild SSI if needed howeve r patient may not be diabetic, instead hyperglycemic given underlying malignancy. CBG's mini kenyon elevated with steroids. Monitor sugars now off steroids. JORDAN SALINAS PA-C [facility] [id number] [facility] Mailcode: [id number] [place] [address] henShimon MD,Ph D - 11/19/2011 4:24 PM PSTHematologic Malignancies / BMT Attending Inpatient Progress Note: I was present and rounded today in conjunction with the NPP I examined the patient, reviewed the relevant history and studies, and formulated a plan. Please see the NPP documentation from today for details 51F, new dx high risk Burkitts, on induction R-hyperCVAD - extensive abdominal disease with malignant ascites & supradiaphragmnatic adenopathy - BMBx neg, initial LP PENDING - no tumor lysis - diurese - C diff diarrhea improving on PO vanco - standard anti-infectious prophylaxis - diabetes, on ISS Primary diagnosis: Burkitts lymphoma Additional diagnoses: ascites, malignant Volume overload C diff diarrhea diabetes Shimon Harvey MD PhD [facility] DEPARTMENT: [id number]- [facility] Place of Service: - Inpatient Date of Service: 11/19/2011 Suggested CPT: 46721 - Subsequent, Detailed/High complex 35 min Karla Silverman P A - 11/19/2011 11:53 AM PST Daily NPP Note - Chemotherapy Ad[facility] Attending: Shimon Harvey MD, PhD PCP: JING Luis Date of Admission: 11/13/11 Hematologic Malignancy: Burkitts lymphoma Reason for admission: Chemotherapy Subjective: Feeling less swollen today, continues to have intermittent abdominal pain and using pain meds. Objective: Last Vitals: BP 128/83 | Pulse 74 | Temp 36.7 C (98 F) | RR 16 | Ht 162 cm (5' 3.78") | Wt 108 kg (238 lb 1.6 oz) | SpO2 100% | BMI 41.15 kg/(m^2) 24 Hour Vital Min/Max: Systolic (24hrs), Av mmHg, Min:128 mmHg, Max:153 mmHg Diastolic (24hrs), Av mmHg, Min:72 mmHg, Max:101 mmHg Pulse Min: 67 Max: 97 Temp Min: 35.8 C (96.5 F) Max: 37 C (98.6 F) Resp Min: 16 Max: 18 SpO2 Min: 95 % Max: 100 % Intake/Output Summary (Last 24 hours) at 11/19/11 1153 Last data filed at 11/19/11 1000 Gross per 24 hour Intake 5094.2 ml Output 7275 ml Net -2180.8 ml Physical Exam: General: This is a female in no acute distress. Sitting up in bed HEENT: PERRL. Sclerae anicteric. Mucosa pink and moist without erythema or exudate. Skin: No rash, lesions noted. Chest: Clear to ausculation bilaterally. CV: RRR, no murmurs. Abdomen: Distended but soft/ascites fluid wave present/mild tenderness to palpation in all quadrants, NABS.Previous surgical sites c/d/i with no surrounding erythema. Abdominal girth appears larger visually today Extremities: Pulses strong and equal bilaterally. 2+ edema to lower extremities NeuroPsych: Alert and oriented x 3. Grossly nonfocal exam. CVC: RUE PICC line, freshly placed, dressing clean and dry Recent Labs Basename 11/19/11 0752 11/19/11 0001 11/18/11 2151 11/18/11 1856 11/18/11 0710 11/18/11 005 0 11/17/11 0026 NA -- 136 -- 137 133* -- -- K -- 4.1 -- 4.3 4.8 -- -- CL -- 107 -- 108 108 -- -- BICARB -- 24 -- 22 20* -- -- BUN -- 18 -- 19 22* -- -- CR -- 0.63 -- 0.66 0.69 -- -- GLU 159* 181* 188* -- -- -- -- CA -- 7.8* -- 7.8* 7.9* -- -- AST -- 16 -- -- -- 22 14* ALT -- 15 -- -- -- 17 9* AP -- 46 -- -- -- 47 60 TBILI -- 0.5 -- -- -- 0.4 0.2* TP -- 5.5* -- -- -- 5.5* 5.9* ALB -- 2.6* -- -- -- 2.4* 2.5* Recent Labs Basename 11/19/11 0001 11/18/11 0050 11/17/11 0026 WBC 9.0 6.3 10.7 RBC 3.38* 3.36* 3.49* HB 9.4* 9.4* 9.6* HCT 28.0* 27.6* 29.0* PLT 303 371 401* NEUTROPERC 96* 95* 95* BANDPCT -- -- -- LYMPHPERC 1* 4* 4* MONOPERC 3 1* 2 BASOPERC 0 0 0 EOSPERC 0* 0* 0* Meds: Reviewed on rounds, see current MAR for medication list Assessment: Hematology: History: (Per Dr. Hutchins's H&P) Ms. Young was in her usual good state of health until the later part of August 2011 when s jerrica developed some abdominal pain. It initially started on her right lateral side and she eden cribed it as sharp and constant. It was associated with a more generalized abdominal pain an d some sweats. She was seen in her local ED on 2010 where she was thought to have a urinary tract infect and was treated with a course of ciprofloxacin and hydrocodone. She developed some nausea with dry heaves and was seen by her PCP on 09/09/2011. She was susan gnosed with diabetes and started on glipizide and Glargine. She was also started on lisinopr il for hypertension. She continued to have nausea with emesis prompting a return visit to [facility] PCP office on 09/30/2011. She continued to have abdominal pain and had an abdominal ultras ound on 10/01/2011 that showed multiple fluid filled structures with some internal echoes lynne t were adjacent to the pancrease. She was also noted to have a fatty liver. She had a follow -up abdomen/pelvic CT scan on 10/05/2011 that showed numerous masses in the retroperitoneum. The largest of the masses measured 10 cm. She was seen by Dr. Jonathan Aranda, Surgery, for further evaluation of her mass. She preferre d the procedure be done at [facility] and she was referred to Dr. Osiel Almanza. She was seen on 10/02 for her initial evaluation and then she underwent a laparoscopic exploration of her a bdomen on 11/10/2010. biopsy of the mass on 11/10/2010. There was diffuse peritoneal studding seen as well as low volume ascites. She had a normal appearing gall bladder. Biopsies of her right upper and quadrant abdominal wall nodules were obtained. Her ascites was drained and sent for cytology. 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 She currently notes some drenching n ight sweats and fatigue. Her abdomen is tender and continues to have some nausea with emesis . She is able move her bowels. She denies any fevers, chills or cough. She denies any visual changes or focal neurologic symptoms. She has some chest tightness that is not related to a ctivity. She has lost 40 lbs over the past 2 months that is unintentional. She has anorexia but is able to each some. Before 08/2011, she was not taking any routine medications Patient was admitted from clinic for treatment. Current Heme issues: -CBC reviewed and noted for mild anemia. Counts still stable, without need for blood produ ct support. -started chemotherapy HyperCVAD+R 11/15/11, hold Rituxan to end given high tumor burden. No evidence of tumor lysis despite large tumor burden. Hospitalization Heme issues: 51 yo F with retroperitoneal node c/w burkitts -biopsy from node on 11/09/10 demonstrates EBV positive lymphoma, FISH t(8:14) with IgHMyc fu adele c/w burkitts lymphoma -underwent bone marrow biopsy in clinic 11/13/11, results show-- Normocellular marrow with t rilineage hematopoiesis, - No evidence of marrow involvement by B cell lymphoma -Underwent LP with IT MTX under fluoro on 11/18 to r/o TECHNICAL INSTRUCTOR COURSE DEVELOPER involvement, Done under fluoro d /t pt body habitus with significant sacral edema and inability to get into position d/t sign ficantly enlarged abdomen. -LDH mildly elevated on admission, now wnl. -staging CT scans ordered of Chest, abdomen and pelvis 11/14/11: 1. Interim increase in mediastinal, hilar, retroperitoneal and mesenteric adenopathy yaneth tible with progression of disease. 2. Wall thickening of the cecum, ascending colon through the mid transverse colon, compatible with colitis, infectious or inflammatory. 3. Several p ulmonary groundglass nodules, which may be old/post inflammatory, however may represent aty pical infection such as fungal, particularly if the patient is immunocompromised. 4. Left br east soft tissue nodules may represent intramammary lymph nodes; however consider mammogra m if not recently performed. (will require follow-up) -start Dexamethasone 40mg daily (divided into 2 doses) 11/14/11, continued through chemother apy completion Chemotherapy regimen: Pt receiving cytoxan 300 mg/m2 IV q12 hr x 6 doses with mesna IV CI o teodoro 3 days for bladder protection. She is also receiving dexamethasone 40 mg po daily days 1 - 4 . She is further scheduled to receive doxorubicin 50 mg/m2 IVP on day 4 (11/19/11) and v incristine 2 mg IVP on days 4 (11/19/11) and 11 (11/26/11). Anticipate either daily Neupogen or single dose Neulasta beginning 24 hours after chemotherapy completes pending pt's dischar ge plan. Continue IV hydration, premeds and antiemetics as ordered. Monitor for acute toxic ities. Growth factor: to start Neulasta/Neupogen after chemotherapy pending discharge plan Labs: Continue to check CBC daily Transfusion parameters: Transfuse PRBCs for HCT <24% Transfuse PPH for platelet count <10,000 sooner PRN s/s bleeding. Cardiovascular: Current cardiovascular issues: -pt with significant fluid overload, but tolerating well. -diuresing actively - started on 11/18/11 Hospitalization CV issues: -admitted from the clinic with mild hypotension 100 systolic -hold outpatient lisinopril 10mg for now -order TTE to evaluate baseline function - LVEF 60-65% Pulmonary: Current pulmonary issues: -no acute issues -sats stable on RA Hospitalization pulmonary issues: As above Imaging: no current imaging GI: Current GI issues: Severe abdominal distention related to disease and worsened with fluid overload. -diminished appetite and some abdominal pain but having frequent, small bowel movements Hospitalization GI issues: -abdominal and pelvic adenopathy with trace ascites based on reports of previous imaging. -CT scan of abdomen, pelvis 11/15/11 demonstrates increasing/coalescing adenopathy in abdome n. Also noted for colitis in cecum/ascending colon Receiving: PRN antiemetics, pain control Imaging: LFTs : wnl Infectious Disease: See current MAR for antimicrobials. Current issues/Bacterial: Afebrile since admission. Scheduled to receive prophylactic levo floxacin upon completion of chemotherapy. For first neutropenic fever, mtz cx, CXR, d/c cip ro and begin Cefepime for empiric broadspectrum coverage. -stool sent, and although diarrhea resolved, C-diff is positive by PCR, so started on vanco mycin 125 mg po QID Fungal: Scheduled to begin fluconazole upon completion of chemotherapy. Viral: Scheduled to begin Acyclovir upon completion of chemotherapy PCP: Will require bactrim prophylaxis post chemotherapy Pertinent positive culture: none Pertinent negative cultures: none Imaging:See pulmonary section above. Other: N/A Fluid/Electrolyte/Nutrition: See I/O above. Current diet: low bacteria. Tolerating 100% of meals with 1.4 L po fluid intake yesterday. Encourage po intake as tolerated with goal of 2L of po fluids daily. MIVF: NS at 75 ml/hr until completion of chemotherapy TPN: not required at this time Labs: Electrolytes reviewed and notable for hypomagnesemia. Replace per supportive care or ders. -No e/o TLS and frequent labs dc'd. -continues allopurinol Renal function: Cr elevated 1.6 on admission, now resolved. Will stop IVF after completion of chemotherapy. Other: Weight is significantly increased from admission, rechecked on different scale. I>O, successfully diuresed on 11/18 and will continue to diurese today. Endocrine:Originally diagnosed with diabetes September 2011, remained on glipizide, however CBG's have been low upon admission. Hold all oral medications. Has mild SSI if needed howeve r patient may not be diabetic, instead hyperglycemic given underlying malignancy. Monitor CB G's in setting of Dex. [facility] [id number] [facility] Mailcode: [id number] [place] [facility] [id number] Lala Santana MD - 11/18/2011 12:36 PM PST 11/18/11 Inpatient BMT Attending Progress Note Zofia Young is a 51 y.o. female Patient Active Problem List Diagnoses Retroperitoneal mass Burkitt's lymphoma Bone Marrow Transplant Attending Inpatient Progress Note: I was present and rounded with the NPP Brad RADFORD today. The history (as documented today) is reviewed; patient interviewed and personally examined by me. It is noted that patient repor ts: feels somewhat improved today. Less discomfort. Better respiratory efforts.Family member at bedside, and available during counseling session. See MAR for Meds Vitals: Systolic (24hrs), Av mmHg, Min:123 mmHg, Max:143 mmHg Diastolic (24hrs), Av mmHg, Min:74 mmHg, Max:91 mmHg Pulse Av.3 Min: 77 Max: 82 Temp Av.5 C (97.7 F) Min: 36 C (96.8 F) Max: 36.9 C (98.4 F) Resp Av.7 Min: 16 Max: 18 SpO2 Av.7 % Min: 96 % Max: 98 % Intake/Output Summary (Last 24 hours) at 11/18/11 1237 Last data filed at 11/18/11 1203 Gross per 24 hour Intake 8926.8 ml Output 6760 ml Net 2166.8 ml Allergies: No Known Allergies Laboratory or other studies: Recent Labs Basename 11/18/11 0050 11/17/11 0026 11/16/11 0013 WBC 6.3 10.7 6.8 HB 9.4* 9.6* 8.9* HCT 27.6* 29.0* 27.0* PLT 371 401* 365 NEUTROPERC 95* 95* 91* BANDPCT -- -- -- LYMPHPERC 4* 4* 8* MONOPERC 1* 2 1* BASOPERC 0 0 0 EOSPERC 0* 0* 0* Recent Labs Basename 11/18/11 0710 11/18/11 0050 11/17/11 1815 11/17/11 0026 11/16/11 0635 11/16/11 001 3 NA 133* 136 135 -- -- -- K 4.8 4.8 5.0 -- -- -- CL 108 111* 109* -- -- -- BICARB 20* 22 22 -- -- -- BUN 22* 24* 28* -- -- -- CR 0.69 0.72 0.81 -- -- -- CA 7.9* 8.1* 8.0* -- -- -- MG -- 1.7* -- 1.9 2.1 -- PO4 3.4 3.7 3.7 -- -- -- AST -- 22 -- 14* -- 15 ALT -- 17 -- 9* -- 10* TBILI -- 0.4 -- 0.2* -- 0.5 AP -- 47 -- 60 -- 60 ALB -- 2.4* -- 2.5* -- 2.5* TP -- 5.5* -- 5.9* -- 5.6* No results found for this basename: culture Lab Results Component Value Date APTT 34.0 11/13/2011 Assessment/Plan: Lucila Young is a 51 year old woman with newly diagnosed Burkitt Lymphoma. HIV negative I agree with the NPP s assessment and stated plan of care. Abdominal pain. Has massive intraabdominal adenopathy and has significant abdominal pain re sponsive to morphine and oxyocodone. Awaiting bone marrow results hyperCVAD cycle 1A day 4. Tolerating chemo well. No nausea. Rituximab today. Will perform l umbar puncture for evaluation of spinal fluid today and administer empiric 1st dose of IT me thotrexate under fluoroscopy. If LP negative- will give IT methotrex/ cytarabine twice per c ycle x 8 Tumor Lysis. No further tumor lysis. Receiving allopurinol daily. Patient will receive Rasb uricase if we experience tumor lysis. Will decrease IVF- as is very fluid overloaded Hyperglycemia. Will likely require insulin to assist in the management of her hyperglycemia associated with steroid exposure Breast Nodule. May require follow-up mammography for breast nodule Loose Stool. Cdiff pos- on Vanco day 2. ID. Prophylaxis with acyclovir, fluconazole, levoflox FEN. Eating OK. +ve 25LBS since admit and > 5L positive. Will diurese gently over a few day s. Interventions for critical care performed or provided today include: none Patient s primary diagnosis: Burkitt's lymphoma Other diagnoses: acute kidney injury; hyperuricemia; anemia; hypoalbuminemia; steroid induc ed hyperglycemia; Patient receiving aggressive chemotherapy, Day 4 of chemotherapy. Continue present supportive care as outlined in our orders. See changes as indicated in our orders from today. LALA AVINA MD [facility] [id number] [facility] Mailcode: [id number] [employer] [id number] [facility] DEPARTMENT: [id number] [facility] Place of Service:- Inpatient Date of Service: 11/18/2011 Suggested CPT: 60996 - Subsequent, Detailed/High complex 35 min Maricel Hemphill ACNP - 0 11/18/2011 12:15 PM PST Daily NPP Note - Chemotherapy [facility] Attending: Dr. Lala Avina PCP: JING Luis Date of Admission: 11/13/11 Hematologic Malignancy: Burkitts lymphoma Reason for admission: Chemotherapy Subjective:Feels that she is better since starting chemotherapy but feels that abdomen is m uch more swollen today. Objective: Last Vitals: BP 143/85 | Pulse 82 | Temp 36 C (96.8 F) | RR 16 | Ht 162 cm (5' 3.78") | Wt 107.8 kg (237 lb 10.5 oz) | SpO2 98% | BMI 41.08 kg/(m^2) 24 Hour Vital Min/Max: Systolic (24hrs), Av mmHg, Min:123 mmHg, Max:143 mmHg Diastolic (24hrs), Av mmHg, Min:74 mmHg, Max:91 mmHg Pulse Min: 77 Max: 82 Temp Min: 36 C (96.8 F) Max: 36.9 C (98.4 F) Resp Min: 16 Max: 18 SpO2 Min: 96 % Max: 98 % Intake/Output Summary (Last 24 hours) at 11/18/11 1215 Last data filed at 11/18/11 1100 Gross per 24 hour Intake 8926.8 ml Output 6685 ml Net 2241.8 ml Physical Exam: General: This is a female in no acute distress. Sitting up in bed HEENT: PERRL. Sclerae anicteric. Mucosa pink and moist without erythema or exudate. Skin: No rash, lesions noted. Chest: Crackles at bases CV: RRR, no murmurs. Abdomen: Distended but soft/ascites fluid wave present/mild tenderness to palpation in all quadrants, NABS.Previous surgical sites c/d/i with no surrounding erythema. Abdominal girth appears larger visually today Extremities: Pulses strong and equal bilaterally. 2+ edema to lower extremities, all the way up to thighs NeuroPsych: Alert and oriented x 3. Grossly nonfocal exam. CVC: RUE PICC line, freshly placed, dressing clean and dry Recent Labs Basename 11/18/11 1203 11/18/11 0741 11/18/11 0710 11/18/11 0050 11/17/11 1815 11/17/11 002 6 11/16/11 0013 NA -- -- 133* 136 135 -- -- K -- -- 4.8 4.8 5.0 -- -- CL -- -- 108 111* 109* -- -- BICARB -- -- 20* 22 22 -- -- BUN -- -- 22* 24* 28* -- -- CR -- -- 0.69 0.72 0.81 -- -- GLU 268* 220* 201* -- -- -- -- CA -- -- 7.9* 8.1* 8.0* -- -- AST -- -- -- 22 -- 14* 15 ALT -- -- -- 17 -- 9* 10* AP -- -- -- 47 -- 60 60 TBILI -- -- -- 0.4 -- 0.2* 0.5 TP -- -- -- 5.5* -- 5.9* 5.6* ALB -- -- -- 2.4* -- 2.5* 2.5* Recent Labs Basename 11/18/11 0050 11/17/11 0026 11/16/11 0013 WBC 6.3 10.7 6.8 RBC 3.36* 3.49* 3.28* HB 9.4* 9.6* 8.9* HCT 27.6* 29.0* 27.0* PLT 371 401* 365 NEUTROPERC 95* 95* 91* BANDPCT -- -- -- LYMPHPERC 4* 4* 8* MONOPERC 1* 2 1* BASOPERC 0 0 0 EOSPERC 0* 0* 0* Meds: Reviewed on rounds, see current MAR for medication list Assessment: Hematology: History: (Per Dr. Hutchins's H&P) Ms. Young was in her usual good state of health until the later part of August 2011 when s jerrica developed some abdominal pain. It initially started on her right lateral side and she eden cribed it as sharp and constant. It was associated with a more generalized abdominal pain an d some sweats. She was seen in her local ED on 2010 where she was thought to have a urinary tract infect and was treated with a course of ciprofloxacin and hydrocodone. She developed some nausea with dry heaves and was seen by her PCP on 09/09/2011. She was susan gnosed with diabetes and started on glipizide and Glargine. She was also started on lisinopr il for hypertension. She continued to have nausea with emesis prompting a return visit to he PCP office on 09/30/2011. She continued to have abdominal pain and had an abdominal ultras ound on 10/01/2011 that showed multiple fluid filled structures with some internal echoes lynne t were adjacent to the pancrease. She was also noted to have a fatty liver. She had a follow -up abdomen/pelvic CT scan on 10/05/2011 that showed numerous masses in the retroperitoneum. The largest of the masses measured 10 cm. She was seen by Dr. Jonathan Aranda, Surgery, for further evaluation of her mass. She preferre d the procedure be done at [facility] and she was referred to Dr. Osiel Almanza. She was seen on 10/02 for her initial evaluation and then she underwent a laparoscopic exploration of her a bdomen on 11/10/2010. biopsy of the mass on 11/10/2010. There was diffuse peritoneal studding seen as well as low volume ascites. She had a normal appearing gall bladder. Biopsies of her right upper and quadrant abdominal wall nodules were obtained. Her ascites was drained and sent for cytology. 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 She currently notes some drenching n ight sweats and fatigue. Her abdomen is tender and continues to have some nausea with emesis . She is able move her bowels. She denies any fevers, chills or cough. She denies any visual changes or focal neurologic symptoms. She has some chest tightness that is not related to a ctivity. She has lost 40 lbs over the past 2 months that is unintentional. She has anorexia but is able to each some. Before 08/2011, she was not taking any routine medications Patient was admitted from clinic for treatment. Current Heme issues: 51 yo F with retroperitoneal node c/w burkitts -biopsy from node on 11/09/10 demonstrates EBV positive lymphoma, FISH t(8:14) with IgHMyc fu adele c/w burkitts lymphoma -underwent bone marrow biopsy in clinic 11/13/11, results show-- Normocellular marrow with t rilineage hematopoiesis, - No evidence of marrow involvement by B cell lymphoma -will require LP today(11/18) to r/o TECHNICAL INSTRUCTOR COURSE DEVELOPER involvement, plan to do under fluoro d/t pt body h abitus with significant sacral edema and inability to get into position d/t signficantly enl arged abdomen. -CBC reviewed and noted for mild anemia. Counts still stable, without need for blood produ ct support. -LDH mildly elevated on admission, now wnl. -staging CT scans ordered of Chest, abdomen and pelvis 11/14/11: 1. Interim increase in mediastinal, hilar, retroperitoneal and mesenteric adenopathy yaneth tible with progression of disease. 2. Wall thickening of the cecum, ascending colon through the mid transverse colon, compatible with colitis, infectious or inflammatory. 3. Several p ulmonary groundglass nodules, which may be old/post inflammatory, however may represent aty pical infection such as fungal, particularly if the patient is immunocompromised. 4. Left br east soft tissue nodules may represent intramammary lymph nodes; however consider mammogra m if not recently performed. (will require follow-up) -start Dexamethasone 40mg daily (divided into 2 doses) 11/14/11, continue through chemothera py completion -start chemotherapy HyperCVAD+R 11/15/11, hold Rituxan to end given high tumor burden. Monit or TLS labs closely. Currently no evidence of tumor lysis. Hospitalization Heme issues: As above Chemotherapy regimen: Pt receiving cytoxan 300 mg/m2 IV q12 hr x 6 doses with mesna IV CI o teodoro 3 days for bladder protection. She is also receiving dexamethasone 40 mg po daily days 1 - 4 . She is further scheduled to receive doxorubicin 50 mg/m2 IVP on day 4 (11/19/11) and v incristine 2 mg IVP on days 4 (11/19/11) and 11 (11/26/11). Anticipate either daily Neupogen or single dose Neulasta beginning 24 hours after chemotherapy completes pending pt's dischar ge plan. Continue IV hydration, premeds and antiemetics as ordered. Monitor for acute toxic ities. Growth factor: to start Neulasta/Neupogen after chemotherapy pending discharge plan Labs: Continue to check CBC daily Transfusion parameters: Transfuse PRBCs for HCT <24% Transfuse PPH for platelet count <10,000 sooner PRN s/s bleeding. Cardiovascular: Current cardiovascular issues: -admitted from the clinic with mild hypotension 100 systolic -hold outpatient lisinopril 10mg for now -order TTE to evaluate baseline function - LVEF 60-65% -pt with significant fluid overload, but tolerating well. -diuresing actively - started on 11/18/11 Hospitalization CV issues: as above Other: Pulmonary: Current pulmonary issues: no acute issues -sats stable on RA Hospitalization pulmonary issues: As above Imaging: no current imaging Other: GI: Current GI issues: -abdominal and pelvic adenopathy with trace ascites based on reports of previous imaging, w ill repeat imaging here. Severe abdominal distention -diminished appetite and some abdominal pain but having frequent, small bowel movements -CT scan of abdomen, pelvis 11/15/11 demonstrates increasing/coalescing adenopathy in abdome n. Also noted for colitis in cecum/ascending colon Hospitalization GI issues: As above Receiving: PRN antiemetics, pain control Imaging: LFTs : wnl Other: Infectious Disease: See current MAR for antimicrobials. Current issues/Bacterial: Afebrile since admission. Scheduled to receive prophylactic levo floxacin upon completion of chemotherapy. For first neutropenic fever, mtz cx, CXR, d/c cip ro and begin Cefepime for empiric broadspectrum coverage. -stool sent, and although diarrhea resolved, C-diff is positive by PCR, so started on vanco mycin 125 mg po QID Fungal: Scheduled to begin fluconazole upon completion of chemotherapy. Viral: Scheduled to begin Acyclovir upon completion of chemotherapy PCP: Will require bactrim prophylaxis post chemotherapy Pertinent positive culture: none Pertinent negative cultures: none Imaging:See pulmonary section above. Other: N/A Fluid/Electrolyte/Nutrition: See I/O above. Current diet: low bacteria. Tolerating 100% of meals with 4L po fluid intake yesterday. En courage po intake as tolerated with goal of 2L of po fluids daily. MIVF: NS at 150 mL/hr- with excellent po intake will decrease to 75 ml/hr. TPN: not required at this time Labs: no electrolyte replacement required today Continue to check chemistries q 6 hour tumor lysis labs- no evidence of lysis. Will decreas e to q 12 hour labs. -continues allopurinol Renal function: Cr elevated 1.6 on admission. Today is improved at 1.13. Continue to monit or TLS labs, continue with fluids and allopurinol, continue to trend closely Other: Weight is significantly increased from admission, rechecked on different scale. I>O so will minimize IVF and diurese today. Endocrine: Originally diagnosed with diabetes September 2011, remained on glipizide, however CBG's have been low upon admission. Hold all oral medications. Has mild SSI if needed however patient may not be diabetic, instead hyperglycemic given underlying malignancy. Monitor CBG's in set ting of Dex. CHARLIE NICHOLSON [facility] [address] [facility] Mailcode: [id number] [place] [facility] [id number] s Lala Santana MD - 0 11/17/2011 2:35 PM PST 11/17/11 Inpatient BMT Attending Progress Note Zofia Young is a 51 y.o. female Patient Active Problem List Diagnoses Retroperitoneal mass Burkitt's lymphoma Bone Marrow Transplant Attending Inpatient Progress Note: I was present and rounded with the NPP Brad RADFORD today. The history (as documented today) is reviewed; patient interviewed and personally examined by me. It is noted that patient repor ts: feels somewhat improved today. Less discomfort. Better respiratory efforts.Family member at bedside, and available during counseling session. See MAR for meds Vitals: Systolic (24hrs), Av mmHg, Min:103 mmHg, Max:128 mmHg Diastolic (24hrs), Av mmHg, Min:61 mmHg, Max:81 mmHg Pulse Av.5 Min: 76 Max: 94 Temp Av.3 C (97.4 F) Min: 35.9 C (96.6 F) Max: 36.7 C (98 F) Resp Av.7 Min: 16 Max: 18 SpO2 Av.5 % Min: 95 % Max: 98 % Intake/Output Summary (Last 24 hours) at 11/17/11 1435 Last data filed at 11/17/11 1400 Gross per 24 hour Intake 7857.2 ml Output 4100 ml Net 3757.2 ml Allergies: No Known Allergies Laboratory or other studies: Recent Labs Basename 11/17/11 0026 11/16/11 0013 11/15/11 0609 WBC 10.7 6.8 4.9 HB 9.6* 8.9* 9.4* HCT 29.0* 27.0* 28.3* PLT 401* 365 384 NEUTROPERC 95* 91* 85* BANDPCT -- -- -- LYMPHPERC 4* 8* 14* MONOPERC 2 1* 1* BASOPERC 0 0 0 EOSPERC 0* 0* 0* Recent Labs Basename 11/17/11 1145 11/17/11 0613 11/17/11 0026 11/16/11 0635 11/16/11 0013 11/15/11 060 9 NA 134 135 136|136 -- -- -- K 4.7 4.9 5.1*|5.1* -- -- -- CL 109* 108 108|108 -- -- -- BICARB 21* 21* 18*|18* -- -- -- BUN 29* 31* 32*|32* -- -- -- CR 0.86 0.80 0.90|0.90 -- -- -- CA 8.0* 8.0* 8.2*|8.2* -- -- -- MG -- -- 1.9 2.1 1.9 -- PO4 4.5 4.6 5.1* -- -- -- AST -- -- 14* -- 15 16 ALT -- -- 9* -- 10* 11* TBILI -- -- 0.2* -- 0.5 0.7 AP -- -- 60 -- 60 66 ALB -- -- 2.5* -- 2.5* 2.5* TP -- -- 5.9* -- 5.6* 6.0* No results found for this basename: culture Lab Results Component Value Date APTT 34.0 11/13/2011 Exam: Contrast enhanced CT of the chest, abdomen and pelvis. History: Burkitt's lymphoma. Recent laparoscopy on 11/10/11. Comparison: Outside CT 10/05/11. Technique: The patient received oral contrast and 100 cc of Visipaque intravenous contrast. Portal venous phase imaging was performed through the chest, abdomen and pelvis. Overlappin g axial 5-mm reconstructed images and coronal reformations are reviewed. FINDINGS: Chest: There are a few bilateral areas of subpleural opacities, as well as groundglass nodu les, measuring 9 mm in the right upper lobe (image 31), 4 mm in the right upper lobe posteri or segment (image 39), 6 mm in the superior segment of the right lower lobe (image 66), and 7 mm and the left upper lobe (image 28). No pleural effusion. Mediastinal and hilar lymphade nopathy are present: Right hilar node, image 53 measures 2.5 x 2.8 cm. Subcarinal node, imag e 58 measures 2.6 by 1.1 cm. Slightly more superior subcarinal node, image 47 measures 1.5 b y 2.7 centimeters. Right PICC terminates at the cavoatrial junction. Two adjacent soft tissu e nodules are present in the left breast, the larger measuring 1.1 cm, image 46. A 4-mm nodu le is noted in the right thyroid lobe. Retrocrural node, image 107 has increased in size, me asuring 1.9 x 2.6 cm, previously measured 1.4 by 1.9 cm. Abdomen: Within the liver, near the segment 7-8 junction there is a short curvilinear focus of parenchymal gas of uncertain etiology, image 95. Small locules of free air are present i n the abdomen, in keeping with recent laparoscopy. Gallbladder, spleen, kidneys, adrenal gla nds are normal. Pancreas is difficult to accurately evaluate secondary to patient scanning c haracteristics, as well as displacement by large retroperitoneal shani mass. Retroperitoneal adenopathy has increased/coalesced since the prior study now measuring 13.1 by 12.8 cm in a ggregate, image 123. A discernible component of this anteriorly, image 115, measures 5.9 x 4 .2 cm, previously measured 5.2 x 3.6 cm. The adenopathy insinuates between retroperitoneal v asculature, with celiac trunk and SMA remaining patent. Mesenteric component of the adenopat hy more inferiorly, image 174 measures 11.7 x 5 .9 cm, previously measured 10.[address] omach, small bowel are normal. There is wall thickening involving the cecum and ascending co virginie to the mid transverse colon level. Descending colon is within normal limits. There is di ffuse mesenteric edema and small amount of ascites. Pelvis: The rectosigmoid colon is normal. Bladder is decompressed. No gross abnormality of the uterus or adnexal structures. Tiny amount of ascites tracks into the pelvis. Musculoskel etal: No suspicious osseous lesion seen.Diffuse anasarca is noted. IMPRESSION: 1. Interim increase in mediastinal, hilar, retroperitoneal and mesenteric adenopathy compat ible with progression of disease. 2. Wall thickening of the cecum, ascending colon through the mid transverse colon, compatib le with colitis, infectious or inflammatory. 3. Several pulmonary groundglass nodules, which may be old/post inflammatory, however may r epresent atypical infection such as fungal, particularly if the patient is immunocompromised . 4. Left breast soft tissue nodules may represent intramammary lymph nodes; however consider mammogram if not recently performed. Attending Radiologists: FITZ MATA MD Author: FITZ MATA MD Assessment/Plan: Lucila Young is a 51 year old woman with newly diagnosed Burkitt Lymphoma. HIV negative I agree with the NPP s assessment and stated plan of care. Abdominal pain. Has massive intraabdominal adenopathy and has significant abdominal pain re sponsive to morphine and oxyocodoneAwaiting bone marrow results hyperCVAD cycle 1A day 3. Tolerating chemo well. No nausea. Rituximab altered to begin on day four- tomorrow. Will perform lumbar puncture for evaluation of spinal fluid-on and administer empiric 1st dose of IT methotrexate. Patient will likely require radiologic assistance - we will atrange under fluoroscopy Tumor Lysis. No further tumor lysis. Receiving allopurinol daily. Patient will receive Rasb uricase if we experience tumor lysis Hyperglycemia. Will likely require insulin to assist in the management of her hyperglycemia associated with steroid exposure Breast Nodule. May require follow-up mammography for breast nodule Loose Stool. Will send c diff Interventions for critical care performed or provided today include: none Patient s primary diagnosis: Burkitt's lymphoma Other diagnoses: acute kidney injury; hyperuricemia; anemia; hypoalbuminemia; steroid induc ed hyperglycemia; Patient receiving aggressive chemotherapy, Day 3 of chemotherapy. Continue present supportive care as outlined in our orders. See changes as indicated in our orders from today. LALA AVINA MD [facility] [id number] [facility] Mailcode: [id number] [employer] [phone] [facility] DEPARTMENT: [id number]- [facility] Place of Service:- Inpatient Date of Service: 11/17/2011 Suggested CPT: 80674 - Subsequent, Detailed/High complex 35 min Maricel Hemphill ACNP - 0 11/17/2011 9:45 AM PST Daily NPP Note - Chemotherapy Admit [facility] Attending: Dr. Lala Avina PCP: JING Luis Date of Admission: 11/13/11 Hematologic Malignancy: Burkitts lymphoma Reason for admission: Chemotherapy Subjective: In very good spirits. Continues to have abdominal discomfort, but well control led with prn medications. Objective: Last Vitals: BP 127/75 | Pulse 88 | Temp 36.4 C (97.6 F) | RR 18 | Ht 162 cm (5' 3.78") | Wt 87.5 kg (192 lb 14.4 oz) | SpO2 97% | BMI 33.34 kg/(m^2) 24 Hour Vital Min/Max: Systolic (24hrs), Av mmHg, Min:108 mmHg, Max:128 mmHg Diastolic (24hrs), Av mmHg, Min:71 mmHg, Max:81 mmHg Pulse Min: 84 Max: 96 Temp Min: 36 C (96.8 F) Max: 36.7 C (98 F) Resp Min: 16 Max: 18 SpO2 Min: 95 % Max: 98 % Intake/Output Summary (Last 24 hours) at 11/17/11 0945 Last data filed at 11/17/11 0808 Gross per 24 hour Intake 7782.4 ml Output 4250 ml Net 3532.4 ml Physical Exam: General: This is a female in no acute distress. Sitting up in bed HEENT: PERRL. Sclerae anicteric. Mucosa pink and moist without erythema or exudate. Skin: No rash, lesions noted. Chest: Crackles at bases CV: RRR, no murmurs. Abdomen: Distended but soft/ascites fluid wave present/mild tenderness to palpation in all quadrants, NABS.Previous surgical sites c/d/i with no surrounding erythema Extremities: Pulses strong and equal bilaterally. No c/c/e. NeuroPsych: Alert and oriented x 3. Grossly nonfocal exam. CVC: RUE PICC line, freshly placed, dressing clean and dry Recent Labs Basename 11/17/11 0808 11/17/11 0613 11/17/11 0026 11/16/11 1805 11/16/11 0013 11/15/11 060 9 NA -- 135 136|136 136 -- -- K -- 4.9 5.1*|5.1* 4.6 -- -- CL -- 108 108|108 108 -- -- BICARB -- 21* 18*|18* 20* -- -- BUN -- 31* 32*|32* 33* -- -- CR -- 0.80 0.90|0.90 0.96 -- -- GLU 213* 216* 204*|204* -- -- -- CA -- 8.0* 8.2*|8.2* 7.9* -- -- AST -- -- 14* -- 15 16 ALT -- -- 9* -- 10* 11* AP -- -- 60 -- 60 66 TBILI -- -- 0.2* -- 0.5 0.7 TP -- -- 5.9* -- 5.6* 6.0* ALB -- -- 2.5* -- 2.5* 2.5* Recent Labs Basename 11/17/11 0026 11/16/11 0013 11/15/11 0609 WBC 10.7 6.8 4.9 RBC 3.49* 3.28* 3.46* HB 9.6* 8.9* 9.4* HCT 29.0* 27.0* 28.3* PLT 401* 365 384 NEUTROPERC 95* 91* 85* BANDPCT -- -- -- LYMPHPERC 4* 8* 14* MONOPERC 2 1* 1* BASOPERC 0 0 0 EOSPERC 0* 0* 0* Meds: Reviewed on rounds, see current MAR for medication list Assessment: Hematology: History: (Per Dr. Hutchins's H&P) Ms. Young was in her usual good state of health until the later part of August 2011 when s jerrica developed some abdominal pain. It initially started on her right lateral side and she eden cribed it as sharp and constant. It was associated with a more generalized abdominal pain an d some sweats. She was seen in her local ED on 2010 where she was thought to have a urinary tract infect and was treated with a course of ciprofloxacin and hydrocodone. She developed some nausea with dry heaves and was seen by her PCP on 09/09/2011. She was susan gnosed with diabetes and started on glipizide and Glargine. She was also started on lisinopr il for hypertension. She continued to have nausea with emesis prompting a return visit to [facility] PCP office on 09/30/2011. She continued to have abdominal pain and had an abdominal ultras ound on 10/01/2011 that showed multiple fluid filled structures with some internal echoes lynne t were adjacent to the pancrease. She was also noted to have a fatty liver. She had a follow -up abdomen/pelvic CT scan on 10/05/2011 that showed numerous masses in the retroperitoneum. The largest of the masses measured 10 cm. She was seen by Dr. Jonathan Aranda, Surgery, for further evaluation of her mass. She preferre d the procedure be done at [facility] and she was referred to Dr. Osiel Almanza. She was seen on 10/02 for her initial evaluation and then she underwent a laparoscopic exploration of her a bdomen on 11/10/2010. biopsy of the mass on 11/10/2010. There was diffuse peritoneal studding seen as well as low volume ascites. She had a normal appearing gall bladder. Biopsies of her right upper and quadrant abdominal wall nodules were obtained. Her ascites was drained and sent for cytology. 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 She currently notes some drenching n ight sweats and fatigue. Her abdomen is tender and continues to have some nausea with emesis . She is able move her bowels. She denies any fevers, chills or cough. She denies any visual changes or focal neurologic symptoms. She has some chest tightness that is not related to a ctivity. She has lost 40 lbs over the past 2 months that is unintentional. She has anorexia but is able to each some. Before 08/2011, she was not taking any routine medications Patient was admitted from clinic for treatment. 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, will do 11/18 and plan to do under f luoro d/t pt body habitus with significant sacral edema and inability to get into position d /t signficantly enlarged abdomen. -CBC reviewed and noted for mild anemia -LDH mildly elevated -staging CT scans ordered of Chest, abdomen and pelvis 11/14/11: 1. Interim increase in mediastinal, hilar, retroperitoneal and mesenteric adenopathy yaneth tible with progression of disease. 2. Wall thickening of the cecum, ascending colon through the mid transverse colon, compatible with colitis, infectious or inflammatory. 3. Several p ulmonary groundglass nodules, which may be old/post inflammatory, however may represent aty pical infection such as fungal, particularly if the patient is immunocompromised. 4. Left br east soft tissue nodules may represent intramammary lymph nodes; however consider mammogra m if not recently performed. (will require follow-up) -start Dexamethasone 40mg daily (divided into 2 doses) 11/14/11, continue through chemothera py completion -start chemotherapy HyperCVAD+R 11/15/11, hold Rituxan to end given high tumor burden. Monit or TLS labs closely. Currently no evidence of tumor lysis. Hospitalization Heme issues: As above Chemotherapy regimen: Pt receiving cytoxan 300 mg/m2 IV q12 hr x 6 doses with mesna IV CI o teodoro 3 days for bladder protection. She is also receiving dexamethasone 40 mg po daily days 1 - 4 . She is further scheduled to receive doxorubicin 50 mg/m2 IVP on day 4 (11/19/11) and v incristine 2 mg IVP on days 4 (11/19/11) and 11 (11/26/11). Anticipate either daily Neupogen or single dose Neulasta beginning 24 hours after chemotherapy completes pending pt's dischar ge plan. Continue IV hydration, premeds and antiemetics as ordered. Monitor for acute toxic ities. Growth factor: to start Neulasta/Neupogen after chemotherapy pending discharge plan Labs: Continue to check CBC daily Transfusion parameters: Transfuse PRBCs for HCT <24% Transfuse PPH for platelet count <10,000 sooner PRN s/s bleeding. Cardiovascular: Current cardiovascular issues: -admitted from the clinic with mild hypotension 100 systolic -continue IVF -hold outpatient lisinopril 10mg for now -order TTE to evaluate baseline function - PENDING Hospitalization CV issues: as above Other: Pulmonary: Current pulmonary issues: no acute issues -sats stable on RA Hospitalization pulmonary issues: As above Imaging: no current imaging Other: GI: Current GI issues: -abdominal and pelvic adenopathy with trace ascites based on reports of previous imaging, w ill repeat imaging here. Severe abdominal distention -diminished appetite and some abdominal pain but having frequent, small bowel movements -CT scan of abdomen, pelvis 11/15/11 demonstrates increasing/coalescing adenopathy in abdome n. Also noted for colitis in cecum/ascending colon -sent off C Diff 11/15/11 given frequent bowel movements. Hold on empiric treatment (given C T findings) with flagyl per attending as thought to be more edema in bowel wall. Hospitalization GI issues: As above Receiving: PRN antiemetics, pain control Imaging: LFTs : wnl Other: Infectious Disease: See current MAR for antimicrobials. Current issues/Bacterial: Afebrile since admission. Scheduled to receive prophylactic levo floxacin upon completion of chemotherapy. For first neutropenic fever, mtz cx, CXR, d/c cip ro and begin Cefepime for empiric broadspectrum coverage. -Consider empiric treatment if GI symptoms worsen, c diff ordered- no diarrhea since has be en ordered, still not collected. Fungal: Scheduled to begin fluconazole upon completion of chemotherapy. Viral: Scheduled to begin Acyclovir upon completion of chemotherapy PCP: Will require bactrim prophylaxis post chemotherapy Pertinent positive culture: none Pertinent negative cultures: none Imaging:See pulmonary section above. Other: N/A Fluid/Electrolyte/Nutrition: See I/O above. Current diet: low bacteria. Tolerating 100% of meals with 3.1L po fluid intake yesterday. Encourage po intake as tolerated with goal of 2L of po fluids daily. MIVF: NS at 150 mL/hr TPN: not required at this time Labs: no electrolyte replacement required today Continue to check chemistries q 6 hour tumor lysis labs -trending uric acid and creatinine, both improving. -continues allopurinol Renal function: Cr elevated 1.6 on admission. Today is improved at 1.13. Continue to monit or TLS labs, continue with fluids and allopurinol, continue to trend closely Other: Endocrine: Originally diagnosed with diabetes September 2011, remained on glipizide, however CBG's have been low upon admission. Hold all oral medications. Has mild SSI if needed however patient may not be diabetic, instead hyperglycemic given underlying malignancy. Monitor CBG's in set ting of Dex. CHARLIE NICHOLSON [facility] KPV [id number] [facility] Mailcode: [id number] Celso Noyola [facility] [id number] s Jacklyn Silverman - 4:51 PM PSTTransthoracic echocardiogram was completed today. Final report to follow . Lala Santana MD - 11/16 2:31 PM PST 11/16/11 Inpatient BMT Attending Progress Note Zofia Young is a 51 y.o. female Patient Active Problem List Diagnoses Retroperitoneal mass Burkitt's lymphoma Bone Marrow Transplant Attending Inpatient Progress Note: I was present and rounded with the NPP Brad RADFORD today. The history (as documented today) is reviewed; patient interviewed and personally examined by me. It is noted that patient repor ts: feels somewhat improved today. Less discomfort. Better respiratory efforts.Family member at bedside, and available during counseling session. Vitals: Systolic (24hrs), Av mmHg, Min:111 mmHg, Max:123 mmHg Diastolic (24hrs), Av mmHg, Min:68 mmHg, Max:81 mmHg Pulse Av.8 Min: 83 Max: 99 Temp Av.4 C (97.6 F) Min: 36.2 C (97.1 F) Max: 36.7 C (98 F) Resp Av.7 Min: 16 Max: 18 SpO2 Av.2 % Min: 94 % Max: 98 % Intake/Output Summary (Last 24 hours) at 11/16/11 1432 Last data filed at 11/16/11 1400 Gross per 24 hour Intake 8656 ml Output 3250 ml Net 5406 ml Allergies: No Known Allergies See MAR for medication list Laboratory or other studies: Recent Labs Basename 11/16/11 0013 11/15/11 0609 11/14/11 0638 WBC 6.8 4.9 7.9 HB 8.9* 9.4* 10.6* HCT 27.0* 28.3* 30.8* PLT 365 384 413* NEUTROPERC 91* 85* 73* BANDPCT -- -- -- LYMPHPERC 8* 14* 17* MONOPERC 1* 1* 7 BASOPERC 0 0 0 EOSPERC 0* 0* 2 Recent Labs Basename 11/16/11 1200 11/16/11 0635 11/16/11 0013 11/15/11 0609 11/13/11 1621 NA 137 134 133*|133* -- -- K 4.5 4.6 4.4|4.4 -- -- CL 107 106 104|104 -- -- BICARB 21* 21* 20*|20* -- -- BUN 32* 31* 33*|33* -- -- CR 1.12* 1.03 1.18*|1.18* -- -- CA 8.2* 7.9* 8.1*|8.1* -- -- MG -- 2.1 1.9 1.9 -- PO4 5.2* 5.1* 4.5 -- -- AST -- -- 15 16 20 ALT -- -- 10* 11* 17 TBILI -- -- 0.5 0.7 0.6 AP -- -- 60 66 82 ALB -- -- 2.5* 2.5* 3.5 TP -- -- 5.6* 6.0* 8.2* No results found for this basename: culture Lab Results Component Value Date APTT 34.0 11/13/2011 Exam: Contrast enhanced CT of the chest, abdomen and pelvis. History: Burkitt's lymphoma. Recent laparoscopy on 11/10/11. Comparison: Outside CT 10/05/11. Technique: The patient received oral contrast and 100 cc of Visipaque intravenous contrast. Portal venous phase imaging was performed through the chest, abdomen and pelvis. Overlappin g axial 5-mm reconstructed images and coronal reformations are reviewed. FINDINGS: Chest: There are a few bilateral areas of subpleural opacities, as well as groundglass nodu les, measuring 9 mm in the right upper lobe (image 31), 4 mm in the right upper lobe posteri or segment (image 39), 6 mm in the superior segment of the right lower lobe (image 66), and 7 mm and the left upper lobe (image 28). No pleural effusion. Mediastinal and hilar lymphade nopathy are present: Right hilar node, image 53 measures 2.5 x 2.8 cm. Subcarinal node, imag e 58 measures 2.6 by 1.1 cm. Slightly more superior subcarinal node, image 47 measures 1.5 b y 2.7 centimeters. Right PICC terminates at the cavoatrial junction. Two adjacent soft tissu e nodules are present in the left breast, the larger measuring 1.1 cm, image 46. A 4-mm nodu le is noted in the right thyroid lobe. Retrocrural node, image 107 has increased in size, me asuring 1.9 x 2.6 cm, previously measured 1.4 by 1.9 cm. Abdomen: Within the liver, near the segment 7-8 junction there is a short curvilinear focus of parenchymal gas of uncertain etiology, image 95. Small locules of free air are present i n the abdomen, in keeping with recent laparoscopy. Gallbladder, spleen, kidneys, adrenal gla nds are normal. Pancreas is difficult to accurately evaluate secondary to patient scanning c haracteristics, as well as displacement by large retroperitoneal shani mass. Retroperitoneal adenopathy has increased/coalesced since the prior study now measuring 13.1 by 12.8 cm in a ggregate, image 123. A discernible component of this anteriorly, image 115, measures 5.9 x 4 .2 cm, previously measured 5.2 x 3.6 cm. The adenopathy insinuates between retroperitoneal v asculature, with celiac trunk and SMA remaining patent. Mesenteric component of the adenopat hy more inferiorly, image 174 measures 11.7 x 5 .9 cm, previously measured 10.[address] omach, small bowel are normal. There is wall thickening involving the cecum and ascending co virginie to the mid transverse colon level. Descending colon is within normal limits. There is di ffuse mesenteric edema and small amount of ascites. Pelvis: The rectosigmoid colon is normal. Bladder is decompressed. No gross abnormality of the uterus or adnexal structures. Tiny amount of ascites tracks into the pelvis. Musculoskel etal: No suspicious osseous lesion seen.Diffuse anasarca is noted. IMPRESSION: 1. Interim increase in mediastinal, hilar, retroperitoneal and mesenteric adenopathy compat ible with progression of disease. 2. Wall thickening of the cecum, ascending colon through the mid transverse colon, compatib le with colitis, infectious or inflammatory. 3. Several pulmonary groundglass nodules, which may be old/post inflammatory, however may r epresent atypical infection such as fungal, particularly if the patient is immunocompromised . 4. Left breast soft tissue nodules may represent intramammary lymph nodes; however consider mammogram if not recently performed. Attending Radiologists: FITZ MATA MD Author: FITZ MATA MD Assessment/Plan: Lucila Young is a 51 year old woman with newly diagnosed Burkitt Lymphoma I agree with the NPP s assessment and stated plan of care. Chest, abdomen and pelvic CT scan obtained and confirms progression since last scan; will s erve as baseline studies for determining chemotherapy response Patient received hydration after IV contrast dye. Improved renal function documented Awaiting bone marrow results Patient will receive Rasburicase if we experience tumor lysis hyperCVAD cycle 1A day 2. Orders for chemotherapy placed in [employer] chemotherapy electronic order system; rituximab altered to begin on day four. Rather than immediately, to decrease r isk tumor lysis. Will perform lumbar puncture for evaluation of spinal fluid-on Wednesday an d administer empiric 1st dose of IT methotrexate. Patient will likely require radiologic ass istance - we will atrange under fluoroscopy Hyperglycemia. Will likely require insulin to assist in the management of her hyperglycemia associated with steroid exposure Breast Nodule. May require follow-up mammography for breast nodule Interventions for critical care performed or provided today include: none Patient s primary diagnosis: Burkitt's lymphoma Other diagnoses: acute kidney injury; hyperuricemia; anemia; hypoalbuminemia; steroid induc ed hyperglycemia; Patient receiving aggressive chemotherapy, Day 1 of chemotherapy. Continue present supportive care as outlined in our orders. See changes as indicated in our orders from today. LALA AVINA MD [facility] [address] [facility] Mailcode: [id number] [employer] [id number] [facility] DEPARTMENT: [id number]- [facility] Place of Service:- Inpatient Date of Service: 11/16/2011 Suggested CPT: 85573 - Subsequent, Detailed/High complex 35 min aricel Washington, ACNP - 0 11/16/2011 2:21 PM PST Daily NPP Note - Chemotherapy Admit [facility] Attending: Dr. Lala Avina PCP: JING Luis Date of Admission: 11/13/11 Hematologic Malignancy: Burkitts lymphoma Reason for admission: Chemotherapy Subjective: Feels much better today. Tolerating chemotherapy without difficulty at this jonathan e. Objective: Last Vitals: BP 111/71 | Pulse 96 | Temp 36.7 C (98 F) | RR 16 | Ht 162 cm (5' 3.78") | Wt 87.5 kg (192 lb 14.4 oz) | SpO2 96% | BMI 33.34 kg/(m^2) 24 Hour Vital Min/Max: Systolic (24hrs), Av mmHg, Min:111 mmHg, Max:123 mmHg Diastolic (24hrs), Av mmHg, Min:68 mmHg, Max:81 mmHg Pulse Min: 83 Max: 99 Temp Min: 36.2 C (97.1 F) Max: 36.7 C (98 F) Resp Min: 16 Max: 18 SpO2 Min: 94 % Max: 98 % Intake/Output Summary (Last 24 hours) at 11/16/11 1421 Last data filed at 11/16/11 1400 Gross per 24 hour Intake 8656 ml Output 3050 ml Net 5606 ml Physical Exam: General: This is a female in no acute distress. Sitting up in bed HEENT: PERRL. Sclerae anicteric. Mucosa pink and moist without erythema or exudate. Skin: No rash, lesions noted. Chest: Crackles at bases CV: RRR, no murmurs. Abdomen: Distended but soft/ascites fluid wave present/mild tenderness to palpation in all quadrants, NABS.Previous surgical sites c/d/i with no surrounding erythema Extremities: Pulses strong and equal bilaterally. No c/c/e. NeuroPsych: Alert and oriented x 3. Grossly nonfocal exam. CVC: RUE PICC line, freshly placed, dressing clean and dry Recent Labs Basename 11/16/11 1237 11/16/11 1200 11/16/11 0755 11/16/11 0635 11/16/11 0013 11/15/11 060 9 11/13/11 1621 NA -- 137 -- 134 133*|133* -- -- K -- 4.5 -- 4.6 4.4|4.4 -- -- CL -- 107 -- 106 104|104 -- -- BICARB -- 21* -- 21* 20*|20* -- -- BUN -- 32* -- 31* 33*|33* -- -- CR -- 1.12* -- 1.03 1.18*|1.18* -- -- GLU 212* 191* 184* -- -- -- -- CA -- 8.2* -- 7.9* 8.1*|8.1* -- -- AST -- -- -- -- 15 16 20 ALT -- -- -- -- 10* 11* 17 AP -- -- -- -- 60 66 82 TBILI -- -- -- -- 0.5 0.7 0.6 TP -- -- -- -- 5.6* 6.0* 8.2* ALB -- -- -- -- 2.5* 2.5* 3.5 Recent Labs Basename 11/16/11 0013 11/15/11 0609 11/14/11 0638 WBC 6.8 4.9 7.9 RBC 3.28* 3.46* 3.78* HB 8.9* 9.4* 10.6* HCT 27.0* 28.3* 30.8* PLT 365 384 413* NEUTROPERC 91* 85* 73* BANDPCT -- -- -- LYMPHPERC 8* 14* 17* MONOPERC 1* 1* 7 BASOPERC 0 0 0 EOSPERC 0* 0* 2 Meds: Reviewed on rounds, see current MAR for medication list Assessment: Hematology: History: (Per Dr. Hutchins's H&P) Ms. Young was in her usual good state of health until the later part of August 2011 when s he developed some abdominal pain. It initially started on her right lateral side and she eden cribed it as sharp and constant. It was associated with a more generalized abdominal pain an d some sweats. She was seen in her local ED on 2010 where she was thought to have a urinary tract infect and was treated with a course of ciprofloxacin and hydrocodone. She developed some nausea with dry heaves and was seen by her PCP on 09/09/2011. She was susan gnosed with diabetes and started on glipizide and Glargine. She was also started on lisinopr il for hypertension. She continued to have nausea with emesis prompting a return visit to he r PCP office on 09/30/2011. She continued to have abdominal pain and had an abdominal ultras ound on 10/01/2011 that showed multiple fluid filled structures with some internal echoes lynne t were adjacent to the pancrease. She was also noted to have a fatty liver. She had a follow -up abdomen/pelvic CT scan on 10/05/2011 that showed numerous masses in the retroperitoneum. The largest of the masses measured 10 cm. She was seen by Dr. Jonathan Aranda, Surgery, for further evaluation of her mass. She preferre d the procedure be done at [facility] and she was referred to Dr. Osiel Almanza. She was seen on 10/02 for her initial evaluation and then she underwent a laparoscopic exploration of her a bdomen on 11/10/2010. biopsy of the mass on 11/10/2010. There was diffuse peritoneal studding seen as well as low volume ascites. She had a normal appearing gall bladder. Biopsies of her right upper and quadrant abdominal wall nodules were obtained. Her ascites was drained and sent for cytology. 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 She currently notes some drenching n ight sweats and fatigue. Her abdomen is tender and continues to have some nausea with emesis . She is able move her bowels. She denies any fevers, chills or cough. She denies any visual changes or focal neurologic symptoms. She has some chest tightness that is not related to a ctivity. She has lost 40 lbs over the past 2 months that is unintentional. She has anorexia but is able to each some. Before 08/2011, she was not taking any routine medications Patient was admitted from clinic for treatment. 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, hold off on holiday weekend and giv en difficulty with all of patient's subcutaneous edema may consider under fluoro -CBC reviewed and noted for mild anemia -LDH mildly elevated -staging CT scans ordered of Chest, abdomen and pelvis 11/14/11: 1. Interim increase in mediastinal, hilar, retroperitoneal and mesenteric adenopathy yaneth tible with progression of disease. 2. Wall thickening of the cecum, ascending colon through the mid transverse colon, compatible with colitis, infectious or inflammatory. 3. Several p ulmonary groundglass nodules, which may be old/post inflammatory, however may represent aty pical infection such as fungal, particularly if the patient is immunocompromised. 4. Left br east soft tissue nodules may represent intramammary lymph nodes; however consider mammogra m if not recently performed. (will require follow-up) -start Dexamethasone 40mg daily (divided into 2 doses) 11/14/11, continue through chemothera py completion -start chemotherapy HyperCVAD+R 11/15/11, hold Rituxan to end given high tumor burden. Monit or TLS labs closely. Currently no evidence of tumor lysis. Hospitalization Heme issues: As above Chemotherapy regimen: Pt receiving cytoxan 300 mg/m2 IV q12 hr x 6 doses with mesna IV CI o teodoro 3 days for bladder protection. She is also receiving dexamethasone 40 mg po daily days 1 - 4 . She is further scheduled to receive doxorubicin 50 mg/m2 IVP on day 4 (11/19/11) and v incristine 2 mg IVP on days 4 (11/19/11) and 11 (11/26/11). Anticipate either daily Neupogen or single dose Neulasta beginning 24 hours after chemotherapy completes pending pt's dischar ge plan. Continue IV hydration, premeds and antiemetics as ordered. Monitor for acute toxic ities. Growth factor: to start Neulasta/Neupogen after chemotherapy pending discharge plan Labs: Continue to check CBC daily Transfusion parameters: Transfuse PRBCs for HCT <24% Transfuse PPH for platelet count <10,000 sooner PRN s/s bleeding. Cardiovascular: Current cardiovascular issues: -admitted from the clinic with mild hypotension 100 systolic -continue IVF -hold outpatient lisinopril 10mg for now -order TTE to evaluate baseline function - PENDING Hospitalization CV issues: as above Other: Pulmonary: Current pulmonary issues: no acute issues -sats stable on RA Hospitalization pulmonary issues: As above Imaging: no current imaging Other: GI: Current GI issues: -abdominal and pelvic adenopathy with trace ascites based on reports of previous imaging, w ill repeat imaging here. Severe abdominal distention -diminished appetite and some abdominal pain but having frequent, small bowel movements -CT scan of abdomen, pelvis 11/15/11 demonstrates increasing/coalescing adenopathy in abdome n. Also noted for colitis in cecum/ascending colon -sent off C Diff 11/15/11 given frequent bowel movements. Hold on empiric treatment (given C T findings) with flagyl per attending as thought to be more edema in bowel wall. Hospitalization GI issues: As above Receiving: PRN antiemetics, pain control Imaging: LFTs : wnl Other: Infectious Disease: See current MAR for antimicrobials. Current issues/Bacterial: Afebrile since admission. Scheduled to receive prophylactic levo floxacin upon completion of chemotherapy. For first neutropenic fever, mtz cx, CXR, d/c cip ro and begin Cefepime for empiric broadspectrum coverage. -Consider empiric treatment if GI symptoms worsen, c diff ordered- no diarrhea since has be en ordered, still not collected. Fungal: Scheduled to begin fluconazole upon completion of chemotherapy. Viral: Scheduled to begin Acyclovir upon completion of chemotherapy PCP: Will require bactrim prophylaxis post chemotherapy Pertinent positive culture: none Pertinent negative cultures: none Imaging:See pulmonary section above. Other: N/A Fluid/Electrolyte/Nutrition: See I/O above. Current diet: low bacteria. Tolerating 0-100% of meals with 3.2L po fluid intake yesterday . Encourage po intake as tolerated with goal of 2L of po fluids daily. MIVF: NS at 150 mL/hr TPN: not required at this time Labs: no electrolyte replacement required today Continue to check chemistries q 6 hour tumor lysis labs -trending uric acid and creatinine, both improving. -continues allopurinol Renal function: Cr elevated 1.6 on admission. Today is improved at 1.13. Continue to monit or TLS labs, continue with fluids and allopurinol, continue to trend closely Other: Endocrine: Originally diagnosed with diabetes September 2011, remained on glipizide, however CBG's have been low upon admission. Hold all oral medications. Has mild SSI if needed however patient may not be diabetic, instead hyperglycemic given underlying malignancy. Monitor CBG's in set ting of Dex. CHARLIE NICHOLSON [facility] [id number] [facility] Mailcode: [id number] [place] [id number] s Marly Maldonado MD - 11/15/2011 2:36 PM PST Date: 11/15/2011 [facility] Zofia Young is a 51 y.o. female Patient Active Problem List Diagnoses Retroperitoneal mass Burkitt's lymphoma Bone Marrow Transplant Attending Inpatient Progress Note: I was present and rounded with the NPP Brad RADFORD today. The history (as documented today) i s reviewed; patient interviewed and personally examined by me. It is noted that patient rep orts: feels somewhat improved today. Less discomfort. Better respiratory efforts. Anxious to proceed with chemotherapy induction for her lymphoma. Family member at bedside, and available during counseling session I agree with all the NPP s findings of note. Significant findings include: BP 114/70 | Pulse 95 | Temp 36.7 C (98.1 F) | RR 18 | SpO2 95% Intake/Output Summary (Last 24 hours) at 11/15/11 1438 Last data filed at 11/15/11 1415 Gross per 24 hour Intake 5195 ml Output 1600 ml Net 3595 ml Temp (24hrs), Av.6 C (97.9 F), Min:36.4 C (97.5 F), Max:36.8 C (98.2 F) Most notable finding on examination is extensive distended abdomen tenderness to palpation. Probable lymph node masses are being palpated with firm margins palpable. Shifting dullness is present. Presacral and pretibial edema is present, bilaterally. Lungs were clear to aus cultation. Lab/x-ray findings (as recorded in the NPP s note from today) requiring intervention incl ude: CBC with diff last 72 hours (or 3 results) Recent Labs Basename 11/15/11 0609 11/14/11 0638 11/13/11 1604 11/13/11 1600 WBC 4.9 7.9 7.9 -- HB 9.4* 10.6* 12.2 -- HCT 28.3* 30.8* 34.6* -- PLT 384 413* 559* -- NEUTROPERC 85* 73* -- 61 BANDPCT -- -- -- -- LYMPHPERC 14* 17* -- 25 MONOPERC 1* 7 -- 9* BASOPERC 0 0 -- 1 EOSPERC 0* 2 -- 4* Liver Tests: Last 72 hours (or 3 results) Recent Labs Basename 11/15/11 0609 11/13/11 1621 AST 16 20 ALT 11* 17 TBILI 0.7 0.6 AP 66 82 ALB 2.5* 3.5 TP 6.0* 8.2* Chemistries: Last 72 Hours (or 3 results): Recent Labs Basename 11/15/11 1415 11/15/11 1213 11/15/11 0900 11/15/11 0609 11/15/11 0024 NA -- 134 -- 132*|132* 132* K -- 4.5 -- 4.8|4.8 4.6 CL -- 102 -- 101|101 100 BICARB -- 21* -- 23|23 20* BUN -- 32* -- 29*|29* 24* CR -- 1.41* -- 1.54*|1.54* 1.60* GLU 203* 198* 164* -- -- CA -- 8.4* -- 8.4*|8.4* 8.4* MG -- -- -- 1.9 -- PO4 -- 5.2* -- 5.5* 5.2* Exam: Contrast enhanced CT of the chest, abdomen and pelvis. History: Burkitt's lymphoma. Recent laparoscopy on 11/10/11. Comparison: Outside CT 10/05/11. Technique: The patient received oral contrast and 100 cc of Visipaque intravenous contrast. Portal venous phase imaging was performed through the chest, abdomen and pelvis. Overlappin g axial 5-mm reconstructed images and coronal reformations are reviewed. FINDINGS: Chest: There are a few bilateral areas of subpleural opacities, as well as groundglass nodu les, measuring 9 mm in the right upper lobe (image 31), 4 mm in the right upper lobe posteri or segment (image 39), 6 mm in the superior segment of the right lower lobe (image 66), and 7 mm and the left upper lobe (image 28). No pleural effusion. Mediastinal and hilar lymphade nopathy are present: Right hilar node, image 53 measures 2.5 x 2.8 cm. Subcarinal node, imag e 58 measures 2.6 by 1.1 cm. Slightly more superior subcarinal node, image 47 measures 1.5 b y 2.7 centimeters. Right PICC terminates at the cavoatrial junction. Two adjacent soft tissu e nodules are present in the left breast, the larger measuring 1.1 cm, image 46. A 4-mm nodu le is noted in the right thyroid lobe. Retrocrural node, image 107 has increased in size, me asuring 1.9 x 2.6 cm, previously measured 1.4 by 1.9 cm. Abdomen: Within the liver, near the segment 7-8 junction there is a short curvilinear focus of parenchymal gas of uncertain etiology, image 95. Small locules of free air are present i n the abdomen, in keeping with recent laparoscopy. Gallbladder, spleen, kidneys, adrenal gla nds are normal. Pancreas is difficult to accurately evaluate secondary to patient scanning c haracteristics, as well as displacement by large retroperitoneal shani mass. Retroperitoneal adenopathy has increased/coalesced since the prior study now measuring 13.1 by 12.8 cm in a ggregate, image 123. A discernible component of this anteriorly, image 115, measures 5.9 x 4 .2 cm, previously measured 5.2 x 3.6 cm. The adenopathy insinuates between retroperitoneal v asculature, with celiac trunk and SMA remaining patent. Mesenteric component of the adenopat hy more inferiorly, image 174 measures 11.7 x 5 .9 cm, previously measured 10.[address] omach, small bowel are normal. There is wall thickening involving the cecum and ascending [place] to the mid transverse colon level. Descending colon is within normal limits. There is di ffuse mesenteric edema and small amount of ascites. Pelvis: The rectosigmoid colon is normal. Bladder is decompressed. No gross abnormality of the uterus or adnexal structures. Tiny amount of ascites tracks into the pelvis. Musculoske letal: No suspicious osseous lesion seen.Diffuse anasarca is noted. IMPRESSION: 1. Interim increase in mediastinal, hilar, retroperitoneal and mesenteric adenopathy yaneth tible with progression of disease. 2. Wall thickening of the cecum, ascending colon through the mid transverse colon, compatib le with colitis, infectious or inflammatory. 3. Several pulmonary groundglass nodules, which may be old/post inflammatory, however may r epresent atypical infection such as fungal, particularly if the patient is immunocompromised . 4. Left breast soft tissue nodules may represent intramammary lymph nodes; however conside r mammogram if not recently performed. Attending Radiologists: FITZ MATA MD Author: FITZ MATA MD I agree with the NPP s assessment and stated plan of care. This includes: dexamethasone 20 mg given twice daily over past 24 hours to initiate treatment chest, abdomen and pelvic CT scan obtained and confirms progression since last scan; will serve as baseline studies for determining chemotherapy response Patient received hydration after IV contrast dye. Improved renal function documented Awaiting bone marrow results Patient will receive Rasburicase if we experience tumor lysis Will perform lumbar puncture for evaluation of spinal fluid. In the next several days. Katrina ent will likely require radiologic assistance hyperCVAD cycle 1A beginning November 15. Had a long conversation with the patient regardin g chemotherapy toxicities including alopecia, nausea, vomiting, tumor lysis that could neces sitate intensive care unit transfer. Acute renal failure is also a risk and we will aggressi vely monitor metabolic studies. We also discussed issues regarding the risk of bowel perfora tion if her disease is invading the villalpando of intestines; Explained that she could use dialys is. We also discussed that she could choose not receive chemotherapy and her suspected survi arash would be limited. Patient wishes to be aggressive and initiate treatment Orders for chemotherapy placed in [employer] chemotherapy electronic order system; rituximab al tered to begin on day four. Rather than immediately, to decrease risk tumor lysis. Available to discuss all questions for the patient and her family member Patient consents to move forward with chemotherapy Will likely require insulin to assist in the management of her hyperglycemia associated wit h steroid exposure May require follow-up mammography for breast nodule Interventions for critical care performed or provided today include: none Patient s primary diagnosis: Burkitt's lymphoma Other diagnoses: acute kidney injury; hyperuricemia; anemia; hypoalbuminemia; steroid induc ed hyperglycemia; Patient receiving aggressive chemotherapy, Day 1 of chemotherapy. Continue present supportive care as outlined in our orders. See changes as indicated in ou r orders from today. Other: Total time spent in reviewing plans with medical team, discussing risks and benefits of treatment with the patient and her family member, in discussing circumstances with Pharm D team and in placing orders = 80 mins MARLY RUIZ MD [facility] [id number] [facility] Mailcode: [id number] [address] [facility] [id number] [facility] DEPARTMENT: [id number]- [facility] Place of Service:- Inpatient Date of Service: 11/15/11 Suggested CPT:62304 - Subsequent, Detailed/High complex 35 min, 03826- Prolonged service face to face 1st 30 minutes and 35117- Prolonged service face to face each addt 30 minutes Jordan Saucedo PA- C - 11/15/2011 11:39 AM PST Daily NPP Note - Chemotherapy Admit [facility] Attending: Marly Ruiz MD PCP: JING Luis Date of Admission: 11/13/11 Hematologic Malignancy: Burkitts lymphoma Reason for admission: Chemotherapy Subjective: Feels a little better today, still with mild abdominal pain but "ready to get s tarted" with chemo Objective: Last Vitals: BP 104/62 | Pulse 67 | Temp 36.6 C (97.9 F) | RR 16 | SpO2 97% 24 Hour Vital Min/Max: Systolic (24hrs), Av mmHg, Min:95 mmHg, Max:119 mmHg Diastolic (24hrs), Av mmHg, Min:49 mmHg, Max:68 mmHg Pulse Min: 67 Max: 116 Temp Min: 36.4 C (97.5 F) Max: 36.8 C (98.2 F) Resp Min: 16 Max: 18 SpO2 Min: 94 % Max: 98 % Intake/Output Summary (Last 24 hours) at 11/15/11 1139 Last data filed at 11/15/11 1000 Gross per 24 hour Intake 6425 ml Output 1475 ml Net 4950 ml Physical Exam: General: This is a female in no acute distress. Sitting up in bed HEENT: PERRL. Sclerae anicteric. Mucosa pink and moist without erythema or exudate. Skin: No rash, lesions noted. Chest: Crackles at bases CV: RRR, no murmurs. Abdomen: Distended but soft/ascites fluid wave present/mild tenderness to palpation in all quadrants, NABS.Previous surgical sites c/d/i with no surrounding erythema Extremities: Pulses strong and equal bilaterally. No c/c/e. NeuroPsych: Alert and oriented x 3. Grossly nonfocal exam. CVC: RUE PICC line, freshly placed, dressing clean and dry Recent Labs Basename 11/15/11 0900 11/15/11 0609 11/15/11 0024 11/14/11 2002 11/13/11 1621 NA -- 132*|132* 132* 132* -- K -- 4.8|4.8 4.6 4.9 -- CL -- 101|101 100 99 -- BICARB -- 23|23 20* 20* -- BUN -- 29*|29* 24* 25* -- CR -- 1.54*|1.54* 1.60* 1.55* -- GLU 164* 151*|151* 142* -- -- CA -- 8.4*|8.4* 8.4* 8.6 -- AST -- 16 -- -- 20 ALT -- 11* -- -- 17 AP -- 66 -- -- 82 TBILI -- 0.7 -- -- 0.6 TP -- 6.0* -- -- 8.2* ALB -- 2.5* -- -- 3.5 Recent Labs Basename 11/15/11 0609 11/14/11 0638 11/13/11 1604 11/13/11 1600 WBC 4.9 7.9 7.9 -- RBC 3.46* 3.78* 4.19 -- HB 9.4* 10.6* 12.2 -- HCT 28.3* 30.8* 34.6* -- PLT 384 413* 559* -- NEUTROPERC 85* 73* -- 61 BANDPCT -- -- -- -- LYMPHPERC 14* 17* -- 25 MONOPERC 1* 7 -- 9* BASOPERC 0 0 -- 1 EOSPERC 0* 2 -- 4* Meds: Reviewed on rounds, see current MAR for medication list Assessment: Hematology: History: (Per Dr. Hutchins's H&P) Ms. Young was in her usual good state of health until the later part of August 2011 when s jerrica developed some abdominal pain. It initially started on her right lateral side and she eden cribed it as sharp and constant. It was associated with a more generalized abdominal pain an d some sweats. She was seen in her local ED on 2010 where she was thought to have a urinary tract infect and was treated with a course of ciprofloxacin and hydrocodone. She developed some nausea with dry heaves and was seen by her PCP on 09/09/2011. She was susan gnosed with diabetes and started on glipizide and Glargine. She was also started on lisinopr il for hypertension. She continued to have nausea with emesis prompting a return visit to he r PCP office on 09/30/2011. She continued to have abdominal pain and had an abdominal ultras ound on 10/01/2011 that showed multiple fluid filled structures with some internal echoes lynne t were adjacent to the pancrease. She was also noted to have a fatty liver. She had a follow -up abdomen/pelvic CT scan on 10/05/2011 that showed numerous masses in the retroperitoneum. The largest of the masses measured 10 cm. She was seen by Dr. Jonathan Aranda, Surgery, for further evaluation of her mass. She preferre d the procedure be done at [facility] and she was referred to Dr. Osiel Almanza. She was seen on 10/02 for her initial evaluation and then she underwent a laparoscopic exploration of her a bdomen on 11/10/2010. biopsy of the mass on 11/10/2010. There was diffuse peritoneal studding seen as well as low volume ascites. She had a normal appearing gall bladder. Biopsies of her right upper and quadrant abdominal wall nodules were obtained. Her ascites was drained and sent for cytology. 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 She currently notes some drenching n ight sweats and fatigue. Her abdomen is tender and continues to have some nausea with emesis . She is able move her bowels. She denies any fevers, chills or cough. She denies any visual changes or focal neurologic symptoms. She has some chest tightness that is not related to a ctivity. She has lost 40 lbs over the past 2 months that is unintentional. She has anorexia but is able to each some. Before 08/2011, she was not taking any routine medications Patient was admitted from clinic for treatment. 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, hold off on holiday weekend and giv en difficulty with all of patient's subcutaneous edema may consider under fluoro -CBC reviewed and noted for mild anemia -LDH mildly elevated -staging CT scans ordered of Chest, abdomen and pelvis 11/14/11: 1. Interim increase in mediastinal, hilar, retroperitoneal and mesenteric adenopathy yaneth tible with progression of disease. 2. Wall thickening of the cecum, ascending colon through the mid transverse colon, compatible with colitis, infectious or inflammatory. 3. Several p ulmonary groundglass nodules, which may be old/post inflammatory, however may represent aty pical infection such as fungal, particularly if the patient is immunocompromised. 4. Left br east soft tissue nodules may represent intramammary lymph nodes; however consider mammogra m if not recently performed. (will require follow-up) -start Dexamethasone 40mg daily (divided into 2 doses) 11/14/11, continue through chemothera py completion -start chemotherapy HyperCVAD+R 11/15/11, hold Rituxan to end given high tumor burden. Monit or TLS labs closely Hospitalization Heme issues: As above Chemotherapy regimen: Pt receiving cytoxan 300 mg/m2 IV q12 hr x 6 doses with mesna IV CI o teodoro 3 days for bladder protection. She is also receiving dexamethasone 40 mg po daily days 1 - 4 . She is further scheduled to receive doxorubicin 50 mg/m2 IVP on day 4 (11/19/11) and v incristine 2 mg IVP on days 4 (11/19/11) and 11 (11/26/11). Anticipate either daily Neupogen or single dose Neulasta beginning 24 hours after chemotherapy completes pending pt's dischar ge plan. Continue IV hydration, premeds and antiemetics as ordered. Monitor for acute toxic ities. Growth factor: to start Neulasta/Neupogen after chemotherapy pending discharge plan Labs: Continue to check CBC daily Transfusion parameters: Transfuse PRBCs for HCT <24% Transfuse PPH for platelet count <10,000 sooner PRN s/s bleeding. Cardiovascular: Current cardiovascular issues: -admitted from the clinic with mild hypotension 100 systolic -continue IVF -hold outpatient lisinopril 10mg for now -order TTE to evaluate baseline function Hospitalization CV issues: as above Other: Pulmonary: Current pulmonary issues: no acute issues -sats stable on RA Hospitalization pulmonary issues: As above Imaging: no current imaging Other: GI: Current GI issues: -abdominal and pelvic adenopathy with trace ascites based on reports of previous imaging, w ill repeat imaging here. Severe abdominal distention -diminished appetite and some abdominal pain but having frequent, small bowel movements -CT scan of abdomen, pelvis 11/15/11 demonstrates increasing/coalescing adenopathy in abdome n. Also noted for colitis in cecum/ascending colon -sent off C Diff 11/15/11 given frequent bowel movements. Hold on empiric treatment (given C T findings) with flagyl per attending as thought to be more edema in bowel wall. Hospitalization GI issues: As above Receiving: PRN antiemetics, pain control Imaging: LFTs : wnl Other: Infectious Disease: See current MAR for antimicrobials. Current issues/Bacterial: Afebrile since admission. Scheduled to receive prophylactic levo floxacin upon completion of chemotherapy. For first neutropenic fever, mtz cx, CXR, d/c cip ro and begin Cefepime for empiric broadspectrum coverage. -Consider empiric treatment if GI symptoms worsen, await CDiff results Fungal: Scheduled to begin fluconazole upon completion of chemotherapy. Viral: Scheduled to begin Acyclovir upon completion of chemotherapy PCP: Will require bactrim prophylaxis post chemotherapy Pertinent positive culture: none Pertinent negative cultures: none Imaging:See pulmonary section above. Other: N/A Fluid/Electrolyte/Nutrition: See I/O above. Current diet: low bacteria. Tolerating bites with 0.5L po fluid intake yesterday. Encourag e po intake as tolerated with goal of 2L of po fluids daily. MIVF: NS at 150 mL/hr TPN: not required at this time Labs: no electrolyte replacement required today Continue to check chemistries q 6 hour tumor lysis labs -trending uric acid, currently 6.1, Cr 1.6, not candidate for rasburicase -continues allopurinol Renal function: Cr elevated 1.6, monitor TLS labs, continue with fluids and allopurinol, co ntinue to trend closely Other: Endocrine: Originally diagnosed with diabetes September 2011, remained on glipizide, however CBG's have been low upon admission. Hold all oral medications. Has mild SSI if needed however patient may not be diabetic, instead hyperglycemic given underlying malignancy. Monitor CBG's in set ting of Dex. JORDAN SALINAS PA-C [facility] [id number] [facility] Mailcode: [id number] [employer] [id number] Marly Maldonado M D - 11/14/2011 3:01 PM PST Date: 11/14/2011 [facility] Zofia Young is a 51 y.o. female Patient Active Problem List Diagnoses Retroperitoneal mass Burkitt's lymphoma Bone Marrow Transplant Attending Inpatient Progress Note: I was present and rounded with the NPP Brad RADFORD today. The history (as documented today) i s reviewed; patient interviewed and personally examined by me. It is noted that patient rep orts: significant distention of the abdomen. She states that it has increased remarkably, ov er the past 3 to 4 weeks, since her last CT scan. She has discomfort. She has no fevers. She is able to lie down flat. She does not have other areas of lymph node growth. She does not have shortness of breath I agree with all the NPP s findings of note. Significant findings include: BP 108/69 | Pulse 116 | Temp 36.6 C (97.9 F) | RR 18 | SpO2 94% Intake/Output Summary (Last 24 hours) at 11/14/11 1502 Last data filed at 11/14/11 1210 Gross per 24 hour Intake 2620 ml Output 375 ml Net 2245 ml Temp (24hrs), Av.6 C (97.8 F), Min:36.2 C (97.2 F), Max:36.7 C (98 F) Most notable finding on examination is extensive distended abdomen tenderness to palpation. Probable lymph node masses are being palpated with firm margins palpable. Shifting dullness is present. Presacral and pretibial edema is present, bilaterally. Lab/x-ray findings (as recorded in the NPP s note from today) requiring intervention incl ude: CBC with diff last 72 hours (or 3 results) Recent Labs Basename 11/14/11 0638 11/13/11 1604 11/13/11 1600 WBC 7.9 7.9 7.2 HB 10.6* 12.2 11.9* HCT 30.8* 34.6* 35.4* PLT 413* 559* 508* NEUTROPERC 73* -- 61 BANDPCT -- -- -- LYMPHPERC 17* -- 25 MONOPERC 7 -- 9* BASOPERC 0 -- 1 EOSPERC 2 -- 4* Liver Tests: Last 72 hours (or 3 results) Recent Labs Basename 11/13/11 1621 AST 20 ALT 17 TBILI 0.6 AP 82 ALB 3.5 TP 8.2* Chemistries: Last 72 Hours (or 3 results): Recent Labs Basename 11/14/11 1210 11/14/11 0959 11/14/11 0638 11/13/112009 NA -- 136 136 135 K -- 4.2 4.1 3.9 CL -- 101 102 96* BICARB -- 19* 22 26 BUN -- 19 20 20 CR -- 1.06 1.02 1.41* GLU 113* 81 88 -- CA -- 8.7 8.8 9.1 MG -- -- -- -- PO4 -- 3.9 4.1 4.4 Results for ZOFIA YOUNG ( ) as of 11/14/2011 15:04 Ref. Range 11/14/2011 01:19 11/14/2011 06:38 11/14/2011 09:59 11/14/2011 12:10 11/14/2011 13:35 URIC ACID, PLASMA (LAB) Latest Range: 2.5-6.2 mg/dL 9.1 (H) 8.6 (H) I agree with the NPP s assessment and stated plan of care. This includes: We will begin dexamethasone 20 mg twice daily for its lymphotoxic effect The patient has not had imaging of her abdomen in over one month. We will obtain chest, abd omen and pelvic CT scan today with contrast. Patient will need hydration after IV contrast dye. Improved renal function will permit yuni ging to be obtained Awaiting bone marrow results Patient will likely require Rasburicase as she has a high likelihood of experiencing tumor lysis Will perform lumbar puncture for evaluation of spinal fluid. In the next several days. Katrina ent will likely require radiologic assistance Will plan to institute hyperCVAD cycle 1A beginning November 15. Had a long conversation wi th the patient regarding chemotherapy toxicities including alopecia, nausea, vomiting, tumor lysis that could necessitate intensive care unit transfer. Acute renal failure is also a ri sk and we will aggressively monitor metabolic studies Interventions for critical care performed or provided today include: none Patient s primary diagnosis: Burkitt's lymphoma Other diagnoses: acute kidney injury; hyperuricemia; anemia Patient will be receiving aggressive chemotherapy, Day -1. Continue present supportive care as outlined in our orders. See changes as indicated in ou r orders from today. Other: Hydration overnight and begin chemotherapy in morning. MARLY RUIZ MD [facility] [id number] [facility] Mailcode: [id number] [facility] [address] [facility] DEPARTMENT: [id number]- [facility] Place of Service:- Inpatient Date of Service: 11/14/11 Suggested CPT:95286 - Subsequent, Detailed/High complex 35 min Jordan Saucedo PA- C - 11/14/2011 8:03 AM PST Daily NPP Note - Chemotherapy Admit [facility] Attending: Marly Ruiz MD PCP: JING Luis Date of Admission: 11/13/11 Hematologic Malignancy: Burkitts lymphoma Reason for admission: Chemotherapy Subjective: Has some pain at surgical incision sites, mild abdominal pain continues had bow el movement. Able to take in some broth and small snacks Objective: Last Vitals: BP 108/69 | Pulse 116 | Temp 36.6 C (97.9 F) | RR 18 | SpO2 94% 24 Hour Vital Min/Max: Systolic (24hrs), Av mmHg, Min:90 mmHg, Max:118 mmHg Diastolic (24hrs), Av mmHg, Min:48 mmHg, Max:73 mmHg Pulse Min: 106 Max: 117 Temp Min: 36.2 C (97.2 F) Max: 36.7 C (98 F) Resp Min: 18 Max: 18 SpO2 Min: 94 % Max: 97 % Intake/Output Summary (Last 24 hours) at 11/14/11 0803 Last data filed at 11/14/11 0510 Gross per 24 hour Intake 2320 ml Output 375 ml Net 1945 ml Physical Exam: General: This is a female in no acute distress. HEENT: PERRL. Sclerae anicteric. Mucosa pink and moist without erythema or exudate. Skin: No rash, lesions noted. Chest: Crackles at bases CV: Tachycardic, RR, no murmurs. Abdomen: Distended but soft/ascites fluid wave present/mild tenderness to palpation in all quadrants, NABS. No HSM appreciated. Extremities: Pulses strong and equal bilaterally. No c/c/e. NeuroPsych: Alert and oriented x 3. Grossly nonfocal exam. CVC: RUE PICC line, freshly placed, dressing clean and dry Recent Labs Basename 11/14/11 0638 11/14/11 0119 11/14/11 0011 11/13/11200911/13/11 1621 NA 136 -- -- 135 137 K 4.1 -- -- 3.9 4.1 CL 102 -- -- 96* 91* BICARB 22 -- -- 26 28 BUN 20 -- -- 20 20 CR 1.02 -- -- 1.41* 1.4* GLU 88 97 78 -- -- CA 8.8 -- -- 9.1 9.8 AST -- -- -- -- 20 ALT -- -- -- -- 17 AP -- -- -- -- 82 TBILI -- -- -- -- 0.6 TP -- -- -- -- 8.2* ALB -- -- -- -- 3.5 Recent Labs Basename 11/14/11 0638 11/13/11 1604 11/13/11 1600 WBC 7.9 7.9 7.2 RBC 3.78* 4.19 4.31 HB 10.6* 12.2 11.9* HCT 30.8* 34.6* 35.4* PLT 413* 559* 508* NEUTROPERC 73* -- 61 BANDPCT -- -- -- LYMPHPERC 17* -- 25 MONOPERC 7 -- 9* BASOPERC 0 -- 1 EOSPERC 2 -- 4* Meds: Reviewed on rounds, see current MAR for medication list Assessment: Hematology: History: (Per Dr. Hutchins's H&P) Ms. Young was in her usual good state of health until the later part of August 2011 when s jerrica developed some abdominal pain. It initially started on her right lateral side and she eden cribed it as sharp and constant. It was associated with a more generalized abdominal pain an d some sweats. She was seen in her local ED on 2010 where she was thought to have a urinary tract infect and was treated with a course of ciprofloxacin and hydrocodone. She developed some nausea with dry heaves and was seen by her PCP on 09/09/2011. She was susan gnosed with diabetes and started on glipizide and Glargine. She was also started on lisinopr il for hypertension. She continued to have nausea with emesis prompting a return visit to [facility] PCP office on 09/30/2011. She continued to have abdominal pain and had an abdominal ultras ound on 10/01/2011 that showed multiple fluid filled structures with some internal echoes lynne t were adjacent to the pancrease. She was also noted to have a fatty liver. She had a follow -up abdomen/pelvic CT scan on 10/05/2011 that showed numerous masses in the retroperitoneum. The largest of the masses measured 10 cm. She was seen by Dr. Jonathan Aranda, Surgery, for further evaluation of her mass. She preferre d the procedure be done at [facility] and she was referred to Dr. Osiel Almanza. She was seen on 10/02 for her initial evaluation and then she underwent a laparoscopic exploration of her a bdomen on 11/10/2010. biopsy of the mass on 11/10/2010. There was diffuse peritoneal studding seen as well as low volume ascites. She had a normal appearing gall bladder. Biopsies of her right upper and quadrant abdominal wall nodules were obtained. Her ascites was drained and sent for cytology. 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 She currently notes some drenching n ight sweats and fatigue. Her abdomen is tender and continues to have some nausea with emesis . She is able move her bowels. She denies any fevers, chills or cough. She denies any visual changes or focal neurologic symptoms. She has some chest tightness that is not related to a ctivity. She has lost 40 lbs over the past 2 months that is unintentional. She has anorexia but is able to each some. Before 08/2011, she was not taking any routine medications Patient was admitted from clinic for treatment. 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, hold off on holiday weekend and giv en difficulty with all of patient's subcutaneous edema may consider under fluoro -CBC reviewed and noted for mild anemia and thrombocytosis -LDH mildly elevated -order PICC line for chemotherapy 11/14/11 -staging CT scans ordered of Chest, abdomen and pelvis 11/14/11 -start Dexamethasone 40mg daily (divided into 2 doses) 11/14/11 -anticipate starting chemotherapy 11/15/11 Hospitalization Heme issues: As above Chemotherapy regimen: TBD Growth factor: no growth factors required at this time Labs: Continue to check CBC daily Transfusion parameters: Transfuse PRBCs for HCT <24% Transfuse PPH for platelet count <10,000 sooner PRN s/s bleeding. Cardiovascular: Current cardiovascular issues: -admitted from the clinic with mild hypotension 100 systolic -continue IVF -hold outpatient lisinopril 10mg for now -order TTE to evaluate baseline function Hospitalization CV issues: as above Other: Pulmonary: Current pulmonary issues: no acute issues -sats stable on RA Hospitalization pulmonary issues: As above Imaging: no current imaging Other: GI: Current GI issues: -abdominal and pelvic adenopathy with trace ascites based on reports of previous imaging, w ill repeat imaging here. Sever abdominal distention -diminished appetite and some abdominal pain but having bowel movements -CT scan of abdomen, pelvis Hospitalization GI issues: As above Receiving: PRN antiemetics, pain control Imaging: LFTs : pending Other: Infectious Disease: See current MAR for antimicrobials. Current issues/Bacterial: Afebrile since admission. Scheduled to receive prophylactic levo floxacin upon completion of chemotherapy. For first neutropenic fever, mtz cx, CXR, d/c cip ro and begin Cefepime for empiric broadspectrum coverage. Fungal: Scheduled to begin fluconazole upon completion of chemotherapy. Viral: Scheduled to receive prophylactic Acyclovir. PCP: Will require bactrim prophylaxis post chemotherapy Pertinent positive culture: none Pertinent negative cultures: none Imaging:See pulmonary section above. Other: N/A Fluid/Electrolyte/Nutrition: See I/O above. Current diet: low bacteria. Tolerating bites with 0.5L po fluid intake yesterday. Encourag e po intake as tolerated with goal of 2L of po fluids daily. MIVF: NS at 150 mL/hr TPN: not required at this time Labs: no electrolyte replacement required today Continue to check chemistries q 6 hour tumor lysis labs -currently uric acid elevated to 9.1, Cr improved 1.02, not a candidate for rasburicase cur rently -continues allopurinol Renal function: Cr elevated 1.41 upon admission with mild TLS, improving with fluids and al lopurinol, continue to trend closely Other: Endocrine: Originally diagnosed with diabetes September 2011, remained on glipizide, however CBG's have been low upon admission. Hold all oral medications. Has mild SSI if needed however patient may not be diabetic, instead hyperglycemic given underlying malignancy. Monitor CBG's. JORDAN SALINAS PA-C [facility] [id number] [facility] Mailcode: [id number] [place] [facility] [id number] documented in this encounter Plan of Treatment + +------+--------+ + + | Name | Type | Priori | Associated Diagnoses | Date/Time | | | | ty | | | + +------+--------+ + + | DIFFERENTIAL | Lab | Routin | | 11/14/2011 3:05 AM | | | | e | | PST | + +------+--------+ + + | CSF INFO PANEL | Lab | Routin | | 11/23/2011 1:00 PM | | | | e | | PST | + +------+--------+ + + | DIFFERENTIAL | Lab | Routin | | 11/24/2011 12:25 AM | | | | e | | PST | + +------+--------+ + + | DIFFERENTIAL | Lab | Routin | | 11/25/2011 12:06 AM | | | | e | | PST | + +------+--------+ + + | DIFFERENTIAL | Lab | Routin | | 11/26/2011 12:16 AM | | | | e | | PST | + +------+--------+ + + | DIFFERENTIAL | Lab | Routin | | 11/27/2011 12:16 AM | | | | e | | PST | + +------+--------+ + + + + +--------+ + + | Name | Type | Priori | Associated Diagnoses | Order Schedule | | | | ty | | | + + +--------+ + + | URINE, MICROSCOPIC | Lab | Routin | | As Needed for 1 | | EXAM | | e | | Occurrences starting | | | | | | 11/13/2011 | + + +--------+ + + | URINE SCREEN FOR | Lab | Routin | | As Needed for 1 | | CULTURE | | e | | Occurrences starting | | | | | | 11/13/2011 | + + +--------+ + + | CULTURE, BLOOD BACTI | Lab | Routin | | As Needed for 1 | | & YEAST | | e | | Occurrences starting | | | | | | 11/13/2011 | + + +--------+ + + | CULTURE, BLOOD BACTI | Lab | Routin | | As Needed for 1 | | & YEAST | | e | | Occurrences starting | | | | | | 11/13/2011 | + + +--------+ + + | X-RAY CHEST 2 VIEW | Imaging | Routin | | As Needed for 1 | | | | e | | Occurrences starting | | | | | | 11/13/2011 | + + +--------+ + + | UA, DIPSTICK ONLY | Lab | Routin | | As Needed for 1 | | | | e | | Occurrences starting | | | | | | 11/13/2011 | + + +--------+ + + | URINE, MICROSCOPIC | Lab | Routin | | As Needed for 1 | | EXAM | | e | | Occurrences starting | | | | | | 11/13/2011 | + + +--------+ + + | CULTURE, URINE BACTI | Lab | Routin | | As Needed for 1 | | | | e | | Occurrences starting | | | | | | 11/13/2011 | + + +--------+ + + | CULTURE, SPUTUM | Lab | Routin | | As Needed for 1 | | | | e | | Occurrences starting | | | | | | 11/13/2011 | + + +--------+ + + | DIFFERENTIAL | Lab | Routin | | One Time for 1 | | | | e | | Occurrences starting | | | | | | 11/14/2011 until | | | | | | 11/14/2011 | + + +--------+ + + | CELL COUNT DIFF, CSF | Lab | Routin | | LABS TO BE COLLECTED | | | | e | | IN RADIOLOGY for 1 | | | | | | Occurrences starting | | | | | | 11/17/2011 until | | | | | | 11/17/2011 | + + +--------+ + + | GLUCOSE, CSF | Lab | Routin | | LABS TO BE COLLECTED | | | | e | | IN RADIOLOGY for 1 | | | | | | Occurrences starting | | | | | | 11/17/2011 until | | | | | | 11/17/2011 | + + +--------+ + + | LDH, CSF | Lab | Routin | | LABS TO BE COLLECTED | | | | e | | IN RADIOLOGY for 1 | | | | | | Occurrences starting | | | | | | 11/17/2011 until | | | | | | 11/17/2011 | + + +--------+ + + | LEUKEMIA/LYMPHOMA | Lab | Routin | | LABS TO BE COLLECTED | | MARKER - CSF/BODY | | e | | IN RADIOLOGY for 1 | | FLUID | | | | Occurrences starting | | | | | | 11/17/2011 until | | | | | | 11/17/2011 | + + +--------+ + + | PROTEIN, CSF | Lab | Routin | | LABS TO BE COLLECTED | | | | e | | IN RADIOLOGY for 1 | | | | | | Occurrences starting | | | | | | 11/17/2011 until | | | | | | 11/17/2011 | + + +--------+ + + | CSF INFO PANEL | Lab | Routin | | One Time for 1 | | | | e | | Occurrences starting | | | | | | 11/23/2011 until | | | | | | 11/23/2011 | + + +--------+ + + | DIFFERENTIAL | Lab | Routin | | One Time for 1 | | | | e | | Occurrences starting | | | | | | 11/24/2011 until | | | | | | 11/24/2011 | + + +--------+ + + | DIFFERENTIAL | Lab | Routin | | One Time for 1 | | | | e | | Occurrences starting | | | | | | 11/25/2011 until | | | | | | 11/25/2011 | + + +--------+ + + | DIFFERENTIAL | Lab | Routin | | One Time for 1 | | | | e | | Occurrences starting | | | | | | 11/26/2011 until | | | | | | 11/26/2011 | + + +--------+ + + | DIFFERENTIAL | Lab | Routin | | One Time for 1 | | | | e | | Occurrences starting | | | | | | 11/27/2011 until | | | | | | 11/27/2011 | + + +--------+ + + | COMPLETE METABOLIC, | Lab - Point | Routin | Burkitt's lymphoma | Ordered: 12/02/2011 | | POC | of Care | e | (HCC) | | + + +--------+ + + | CBC, POC | Lab - Point | Urgent | Burkitt's lymphoma | Ordered: 12/02/2011 | | | of Care | | (HCC) | | + + +--------+ + + | COMPLETE METABOLIC | Lab | Urgent | Burkitt's lymphoma | Ordered: 12/02/2011 | | SET | | | (HCC) | | | (NA,K,CL,CO2,BUN,CRE | | | | | | AT,GLUC,CA,AST,ALT,B | | | | | | CAIN TOTAL,ALK | | | | | | PHOS,ALB,PROT TOTAL) | | | | | + + +--------+ + + | MAGNESIUM, PLASMA | Lab | Urgent | Burkitt's lymphoma | Ordered: 12/02/2011 | | | | | (HCC) | | + + +--------+ + + | PHOSPHORUS, PLASMA | Lab | Urgent | Burkitt's lymphoma | Ordered: 12/02/2011 | | | | | (HCC) | | + + +--------+ + + | URIC ACID, PLASMA | Lab | Urgent | Burkitt's lymphoma | Ordered: 12/02/2011 | | | | | (HCC) | | + + +--------+ + + | BILIRUBIN DIRECT | Lab | Urgent | Burkitt's lymphoma | Ordered: 12/02/2011 | | | | | (HCC) | | + + +--------+ + + | LDH TOTAL, PLASMA | Lab | Urgent | Burkitt's lymphoma | Ordered: 12/02/2011 | | | | | (HCC) | | + + +--------+ + + documented as of this encounter Procedures + +--------+ + + + | Procedure Name | Priori | Date/Time | Associated Diagnosis | Comments | | | ty | | | | + +--------+ + + + | PROCEDURE NOTE | Routin | 12/06/2015 | | Results for this | | | e | 3:57 AM | | procedure are in the | | | | PST | | results section. | + +--------+ + + + | PROCEDURE NOTE | Routin | 12/06/2015 | | Results for this | | | e | 3:55 AM | | procedure are in the | | | | PST | | results section. | + +--------+ + + + | PROCEDURE NOTE | Routin | 12/06/2015 | | Results for this | | | e | 3:53 AM | | procedure are in the | | | | PST | | results section. | + +--------+ + + + | PROCEDURE NOTE | Routin | 12/06/2015 | | Results for this | | | e | 3:43 AM | | procedure are in the | | | | PST | | results section. | + +--------+ + + + | CAPILLARY BLOOD | Routin | 12/06/2011 | Burkitt's lymphoma | Results for this | | GLUCOSE (NO CHG), | e | 1:00 PM | (HCC) | procedure are in the | | POC | | PST | | results section. | + +--------+ + + + | CAPILLARY BLOOD | Routin | 12/06/2011 | Burkitt's lymphoma | Results for this | | GLUCOSE (NO CHG), | e | 8:04 AM | (HCC) | procedure are in the | | POC | | PST | | results section. | + +--------+ + + + | DIFFERENTIAL | Routin | 12/06/2011 | | Results for this | | | e | 12:09 AM | | procedure are in the | | | | PST | | results section. | + +--------+ + + + | CBC, WITH | Routin | 12/06/2011 | | Results for this | | DIFFERENTIAL | e | 12:09 AM | | procedure are in the | | | | PST | | results section. | + +--------+ + + + | METHOTREXATE | Routin | 12/06/2011 | Burkitt's lymphoma | Results for this | | | e | 12:09 AM | (HCC) | procedure are in the | | | | PST | | results section. | + +--------+ + + + | COMPLETE METABOLIC | Routin | 12/06/2011 | | Results for this | | SET | e | 12:09 AM | | procedure are in the | | (NA,K,CL,CO2,BUN,CRE | | PST | | results section. | | AT,GLUC,CA,AST,ALT,B | | | | | | CAIN TOTAL,ALK | | | | | | PHOS,ALB,PROT TOTAL) | | | | | + +--------+ + + + | PHOSPHORUS, PLASMA | Routin | 12/06/2011 | | Results for this | | | e | 12:09 AM | | procedure are in the | | | | PST | | results section. | + +--------+ + + + | URIC ACID, PLASMA | Routin | 12/06/2011 | | Results for this | | | e | 12:09 AM | | procedure are in the | | | | PST | | results section. | + +--------+ + + + | MAGNESIUM, PLASMA | Routin | 12/06/2011 | | Results for this | | | e | 12:09 AM | | procedure are in the | | | | PST | | results section. | + +--------+ + + + | LDH TOTAL, PLASMA | Routin | 12/06/2011 | | Results for this | | | e | 12:09 AM | | procedure are in the | | | | PST | | results section. | + +--------+ + + + | CAPILLARY BLOOD | Routin | 12/05/2011 | Burkitt's lymphoma | Results for this | | GLUCOSE (NO CHG), | e | 9:52 PM | (HCC) | procedure are in the | | POC | | PST | | results section. | + +--------+ + + + | CAPILLARY BLOOD | Routin | 12/05/2011 | Burkitt's lymphoma | Results for this | | GLUCOSE (NO CHG), | e | 4:22 PM | (HCC) | procedure are in the | | POC | | PST | | results section. | + +--------+ + + + | CAPILLARY BLOOD | Routin | 12/05/2011 | Burkitt's lymphoma | Results for this | | GLUCOSE (NO CHG), | e | 12:21 PM | (HCC) | procedure are in the | | POC | | PST | | results section. | + +--------+ + + + | UA DIPSTICK ONLY, | Routin | 12/05/2011 | | Results for this | | POC RESULT | e | 11:34 AM | | procedure are in the | | | | PST | | results section. | + +--------+ + + + | CAPILLARY BLOOD | Routin | 12/05/2011 | Burkitt's lymphoma | Results for this | | GLUCOSE (NO CHG), | e | 8:04 AM | (HCC) | procedure are in the | | POC | | PST | | results section. | + +--------+ + + + | DIFFERENTIAL | Routin | 12/05/2011 | | Results for this | | | e | 12:10 AM | | procedure are in the | | | | PST | | results section. | + +--------+ + + + | CBC, WITH | Routin | 12/05/2011 | | Results for this | | DIFFERENTIAL | e | 12:10 AM | | procedure are in the | | | | PST | | results section. | + +--------+ + + + | COMPLETE METABOLIC | Routin | 12/05/2011 | | Results for this | | SET | e | 12:10 AM | | procedure are in the | | (NA,K,CL,CO2,BUN,CRE | | PST | | results section. | | AT,GLUC,CA,AST,ALT,B | | | | | | CAIN TOTAL,ALK | | | | | | PHOS,ALB,PROT TOTAL) | | | | | + +--------+ + + + | PHOSPHORUS, PLASMA | Routin | 12/05/2011 | | Results for this | | | e | 12:10 AM | | procedure are in the | | | | PST | | results section. | + +--------+ + + + | URIC ACID, PLASMA | Routin | 12/05/2011 | | Results for this | | | e | 12:10 AM | | procedure are in the | | | | PST | | results section. | + +--------+ + + + | MAGNESIUM, PLASMA | Routin | 12/05/2011 | | Results for this | | | e | 12:10 AM | | procedure are in the | | | | PST | | results section. | + +--------+ + + + | LDH TOTAL, PLASMA | Routin | 12/05/2011 | | Results for this | | | e | 12:10 AM | | procedure are in the | | | | PST | | results section. | + +--------+ + + + | METHOTREXATE | Routin | 12/04/2011 | Burkitt's lymphoma | Results for this | | | e | 11:35 PM | (HCC) | procedure are in the | | | | PST | | results section. | + +--------+ + + + | UA DIPSTICK ONLY, | Routin | 12/04/2011 | | Results for this | | POC RESULT | e | 11:17 PM | | procedure are in the | | | | PST | | results section. | + +--------+ + + + | CAPILLARY BLOOD | Routin | 12/04/2011 | Burkitt's lymphoma | Results for this | | GLUCOSE (NO CHG), | e | 9:13 PM | (HCC) | procedure are in the | | POC | | PST | | results section. | + +--------+ + + + | CAPILLARY BLOOD | Routin | 12/04/2011 | Burkitt's lymphoma | Results for this | | GLUCOSE (NO CHG), | e | 4:28 PM | (HCC) | procedure are in the | | POC | | PST | | results section. | + +--------+ + + + | MA DIAGNOSTIC MAMMO | Routin | 12/04/2011 | | Results for this | | BILAT W/CAD | e | 2:05 PM | | procedure are in the | | | | PST | | results section. | + +--------+ + + + | CAPILLARY BLOOD | Routin | 12/04/2011 | Burkitt's lymphoma | Results for this | | GLUCOSE (NO CHG), | e | 12:29 PM | (HCC) | procedure are in the | | POC | | PST | | results section. | + +--------+ + + + | VRE (KATLYN) BY PCR | Routin | 12/04/2011 | | Results for this | | | e | 12:26 PM | | procedure are in the | | | | PST | | results section. | + +--------+ + + + | VRE (KATLYN) BY PCR | Routin | 12/04/2011 | | Results for this | | | e | 8:37 AM | | procedure are in the | | | | PST | | results section. | + +--------+ + + + | CAPILLARY BLOOD | Routin | 12/04/2011 | Burkitt's lymphoma | Results for this | | GLUCOSE (NO CHG), | e | 7:40 AM | (HCC) | procedure are in the | | POC | | PST | | results section. | + +--------+ + + + | DIFFERENTIAL | Routin | 12/04/2011 | | Results for this | | | e | 12:25 AM | | procedure are in the | | | | PST | | results section. | + +--------+ + + + | CBC, WITH | Routin | 12/04/2011 | | Results for this | | DIFFERENTIAL | e | 12:25 AM | | procedure are in the | | | | PST | | results section. | + +--------+ + + + | COMPLETE METABOLIC | Routin | 12/04/2011 | | Results for this | | SET | e | 12:25 AM | | procedure are in the | | (NA,K,CL,CO2,BUN,CRE | | PST | | results section. | | AT,GLUC,CA,AST,ALT,B | | | | | | CAIN TOTAL,ALK | | | | | | PHOS,ALB,PROT TOTAL) | | | | | + +--------+ + + + | PHOSPHORUS, PLASMA | Routin | 12/04/2011 | | Results for this | | | e | 12:25 AM | | procedure are in the | | | | PST | | results section. | + +--------+ + + + | URIC ACID, PLASMA | Routin | 12/04/2011 | | Results for this | | | e | 12:25 AM | | procedure are in the | | | | PST | | results section. | + +--------+ + + + | MAGNESIUM, PLASMA | Routin | 12/04/2011 | | Results for this | | | e | 12:25 AM | | procedure are in the | | | | PST | | results section. | + +--------+ + + + | LDH TOTAL, PLASMA | Routin | 12/04/2011 | | Results for this | | | e | 12:25 AM | | procedure are in the | | | | PST | | results section. | + +--------+ + + + | RADIOLOGY | | 12/04/2011 | | Results for this | | | | 12:00 AM | | procedure are in the | | | | PST | | results section. | + +--------+ + + + | METHOTREXATE | Routin | 12/03/2011 | Burkitt's lymphoma | Results for this | | | e | 10:53 PM | (HCC) | procedure are in the | | | | PST | | results section. | + +--------+ + + + | CAPILLARY BLOOD | Routin | 12/03/2011 | Burkitt's lymphoma | Results for this | | GLUCOSE (NO CHG), | e | 9:52 PM | (HCC) | procedure are in the | | POC | | PST | | results section. | + +--------+ + + + | UA DIPSTICK ONLY, | Routin | 12/03/2011 | | Results for this | | POC RESULT | e | 8:46 PM | | procedure are in the | | | | PST | | results section. | + +--------+ + + + | CAPILLARY BLOOD | Routin | 12/03/2011 | Burkitt's lymphoma | Results for this | | GLUCOSE (NO CHG), | e | 5:45 PM | (HCC) | procedure are in the | | POC | | PST | | results section. | + +--------+ + + + | CSF INFO PANEL | Routin | 12/03/2011 | | Results for this | | | e | 12:06 PM | | procedure are in the | | | | PST | | results section. | + +--------+ + + + | LDH, CSF | Routin | 12/03/2011 | | Results for this | | | e | 12:06 PM | | procedure are in the | | | | PST | | results section. | + +--------+ + + + | GLUCOSE, CSF | Routin | 12/03/2011 | | Results for this | | | e | 12:06 PM | | procedure are in the | | | | PST | | results section. | + +--------+ + + + | CELL COUNT DIFF, CSF | Routin | 12/03/2011 | | Results for this | | | e | 12:06 PM | | procedure are in the | | | | PST | | results section. | + +--------+ + + + | PROTEIN, CSF | Routin | 12/03/2011 | | Results for this | | | e | 12:06 PM | | procedure are in the | | | | PST | | results section. | + +--------+ + + + | CAPILLARY BLOOD | Routin | 12/03/2011 | Burkitt's lymphoma | Results for this | | GLUCOSE (NO CHG), | e | 10:19 AM | (HCC) | procedure are in the | | POC | | PST | | results section. | + +--------+ + + + | UA DIPSTICK ONLY, | Routin | 12/03/2011 | | Results for this | | POC RESULT | e | 8:06 AM | | procedure are in the | | | | PST | | results section. | + +--------+ + + + | UA DIPSTICK ONLY, | Routin | 12/03/2011 | | Results for this | | POC RESULT | e | 6:27 AM | | procedure are in the | | | | PST | | results section. | + +--------+ + + + | UA DIPSTICK ONLY, | Routin | 12/03/2011 | | Results for this | | POC RESULT | e | 3:53 AM | | procedure are in the | | | | PST | | results section. | + +--------+ + + + | EXTENDED DIFF | Routin | 12/03/2011 | | Results for this | | | e | 12:37 AM | | procedure are in the | | | | PST | | results section. | + +--------+ + + + | DIFFERENTIAL | Routin | 12/03/2011 | | Results for this | | | e | 12:37 AM | | procedure are in the | | | | PST | | results section. | + +--------+ + + + | CBC, WITH | Routin | 12/03/2011 | | Results for this | | DIFFERENTIAL | e | 12:37 AM | | procedure are in the | | | | PST | | results section. | + +--------+ + + + | COMPLETE METABOLIC | Routin | 12/03/2011 | | Results for this | | SET | e | 12:37 AM | | procedure are in the | | (NA,K,CL,CO2,BUN,CRE | | PST | | results section. | | AT,GLUC,CA,AST,ALT,B | | | | | | CAIN TOTAL,ALK | | | | | | PHOS,ALB,PROT TOTAL) | | | | | + +--------+ + + + | PHOSPHORUS, PLASMA | Routin | 12/03/2011 | | Results for this | | | e | 12:37 AM | | procedure are in the | | | | PST | | results section. | + +--------+ + + + | BILIRUBIN DIRECT | Routin | 12/03/2011 | | Results for this | | | e | 12:37 AM | | procedure are in the | | | | PST | | results section. | + +--------+ + + + | URIC ACID, PLASMA | Routin | 12/03/2011 | | Results for this | | | e | 12:37 AM | | procedure are in the | | | | PST | | results section. | + +--------+ + + + | MAGNESIUM, PLASMA | Routin | 12/03/2011 | | Results for this | | | e | 12:37 AM | | procedure are in the | | | | PST | | results section. | + +--------+ + + + | LDH TOTAL, PLASMA | Routin | 12/03/2011 | | Results for this | | | e | 12:37 AM | | procedure are in the | | | | PST | | results section. | + +--------+ + + + | CHOLESTEROL TOTAL, | Routin | 12/03/2011 | | Results for this | | PLASMA | e | 12:37 AM | | procedure are in the | | | | PST | | results section. | + +--------+ + + + | LEUKEMIA/LYMPHOMA | Routin | 12/03/2011 | | Results for this | | MARKER - CSF/BODY | e | | | procedure are in the | | FLUID | | | | results section. | + +--------+ + + + | UA DIPSTICK ONLY, | Routin | 12/02/2011 | | Results for this | | POC RESULT | e | 10:55 PM | | procedure are in the | | | | PST | | results section. | + +--------+ + + + | UA DIPSTICK ONLY, | Routin | 12/02/2011 | | Results for this | | POC RESULT | e | 9:08 PM | | procedure are in the | | | | PST | | results section. | + +--------+ + + + | UA DIPSTICK ONLY, | Routin | 12/02/2011 | | Results for this | | POC RESULT | e | 5:33 PM | | procedure are in the | | | | PST | | results section. | + +--------+ + + + | UA DIPSTICK ONLY, | Routin | 12/02/2011 | | Results for this | | POC RESULT | e | 1:15 PM | | procedure are in the | | | | PST | | results section. | + +--------+ + + + | TREATMENT PARAMETERS | Routin | 12/02/2011 | Burkitt's lymphoma | | | #3 - [place] | e | 11:45 AM | ([facility]) | | | | | PST | | | + +--------+ + + + | NURSING | Routin | 12/02/2011 | Burkitt's lymphoma | | | COMMUNICATION #[id number] - | e | 11:45 AM | ([facility]) | | | [place] | | PST | | | + +--------+ + + + | EXTENDED DIFF | Routin | 12/02/2011 | | Results for this | | | e | 12:17 AM | | procedure are in the | | | | PST | | results section. | + +--------+ + + + | DIFFERENTIAL | Routin | 12/02/2011 | | Results for this | | | e | 12:17 AM | | procedure are in the | | | | PST | | results section. | + +--------+ + + + | CBC, WITH | Routin | 12/02/2011 | | Results for this | | DIFFERENTIAL | e | 12:17 AM | | procedure are in the | | | | PST | | results section. | + +--------+ + + + | VANCOMYCIN, TROUGH | Routin | 12/02/2011 | | Results for this | | | e | 12:17 AM | | procedure are in the | | | | PST | | results section. | + +--------+ + + + | VANCOMYCIN, TROUGH | Routin | 12/02/2011 | | Results for this | | | e | 12:17 AM | | procedure are in the | | | | PST | | results section. | + +--------+ + + + | COMPLETE METABOLIC | Routin | 12/02/2011 | | Results for this | | SET | e | 12:17 AM | | procedure are in the | | (NA,K,CL,CO2,BUN,CRE | | PST | | results section. | | AT,GLUC,CA,AST,ALT,B | | | | | | CAIN TOTAL,ALK | | | | | | PHOS,ALB,PROT TOTAL) | | | | | + +--------+ + + + | PHOSPHORUS, PLASMA | Routin | 12/02/2011 | | Results for this | | | e | 12:17 AM | | procedure are in the | | | | PST | | results section. | + +--------+ + + + | URIC ACID, PLASMA | Routin | 12/02/2011 | | Results for this | | | e | 12:17 AM | | procedure are in the | | | | PST | | results section. | + +--------+ + + + | MAGNESIUM, PLASMA | Routin | 12/02/2011 | | Results for this | | | e | 12:17 AM | | procedure are in the | | | | PST | | results section. | + +--------+ + + + | LDH TOTAL, PLASMA | Routin | 12/02/2011 | | Results for this | | | e | 12:17 AM | | procedure are in the | | | | PST | | results section. | + +--------+ + + + | EXTENDED DIFF | Routin | 12/01/2011 | | Results for this | | | e | 1:15 AM | | procedure are in the | | | | PST | | results section. | + +--------+ + + + | DIFFERENTIAL | Routin | 12/01/2011 | | Results for this | | | e | 1:15 AM | | procedure are in the | | | | PST | | results section. | + +--------+ + + + | CBC, WITH | Routin | 12/01/2011 | | Results for this | | DIFFERENTIAL | e | 1:15 AM | | procedure are in the | | | | PST | | results section. | + +--------+ + + + | COMPLETE METABOLIC | Routin | 12/01/2011 | | Results for this | | SET | e | 1:15 AM | | procedure are in the | | (NA,K,CL,CO2,BUN,CRE | | PST | | results section. | | AT,GLUC,CA,AST,ALT,B | | | | | | CAIN TOTAL,ALK | | | | | | PHOS,ALB,PROT TOTAL) | | | | | + +--------+ + + + | PHOSPHORUS, PLASMA | Routin | 12/01/2011 | | Results for this | | | e | 1:15 AM | | procedure are in the | | | | PST | | results section. | + +--------+ + + + | URIC ACID, PLASMA | Routin | 12/01/2011 | | Results for this | | | e | 1:15 AM | | procedure are in the | | | | PST | | results section. | + +--------+ + + + | MAGNESIUM, PLASMA | Routin | 12/01/2011 | | Results for this | | | e | 1:15 AM | | procedure are in the | | | | PST | | results section. | + +--------+ + + + | LDH TOTAL, PLASMA | Routin | 12/01/2011 | | Results for this | | | e | 1:15 AM | | procedure are in the | | | | PST | | results section. | + +--------+ + + + | CAPILLARY BLOOD | Routin | 11/30/2011 | Burkitt's lymphoma | Results for this | | GLUCOSE (NO CHG), | e | 6:13 PM | (HCC) | procedure are in the | | POC | | PST | | results section. | + +--------+ + + + | US ABDOMEN LIMITED | Routin | 11/30/2011 | | Results for this | | | e | 1:15 PM | | procedure are in the | | | | PST | | results section. | + +--------+ + + + | EXTENDED DIFF | Routin | 11/30/2011 | | Results for this | | | e | 12:06 AM | | procedure are in the | | | | PST | | results section. | + +--------+ + + + | DIFFERENTIAL | Routin | 11/30/2011 | | Results for this | | | e | 12:06 AM | | procedure are in the | | | | PST | | results section. | + +--------+ + + + | INR | Routin | 11/30/2011 | | Results for this | | | e | 12:06 AM | | procedure are in the | | | | PST | | results section. | + +--------+ + + + | CBC, WITH | Routin | 11/30/2011 | | Results for this | | DIFFERENTIAL | e | 12:06 AM | | procedure are in the | | | | PST | | results section. | + +--------+ + + + | COMPLETE METABOLIC | Routin | 11/30/2011 | | Results for this | | SET | e | 12:06 AM | | procedure are in the | | (NA,K,CL,CO2,BUN,CRE | | PST | | results section. | | AT,GLUC,CA,AST,ALT,B | | | | | | CAIN TOTAL,ALK | | | | | | PHOS,ALB,PROT TOTAL) | | | | | + +--------+ + + + | PHOSPHORUS, PLASMA | Routin | 11/30/2011 | | Results for this | | | e | 12:06 AM | | procedure are in the | | | | PST | | results section. | + +--------+ + + + | BILIRUBIN DIRECT | Routin | 11/30/2011 | | Results for this | | | e | 12:06 AM | | procedure are in the | | | | PST | | results section. | + +--------+ + + + | URIC ACID, PLASMA | Routin | 11/30/2011 | | Results for this | | | e | 12:06 AM | | procedure are in the | | | | PST | | results section. | + +--------+ + + + | MAGNESIUM, PLASMA | Routin | 11/30/2011 | | Results for this | | | e | 12:06 AM | | procedure are in the | | | | PST | | results section. | + +--------+ + + + | LDH TOTAL, PLASMA | Routin | 11/30/2011 | | Results for this | | | e | 12:06 AM | | procedure are in the | | | | PST | | results section. | + +--------+ + + + | CHOLESTEROL TOTAL, | Routin | 11/30/2011 | | Results for this | | PLASMA | e | 12:06 AM | | procedure are in the | | | | PST | | results section. | + +--------+ + + + | SLAUGHTER (VANA) BY PCR | Routin | 11/29/2011 | | Results for this | | | e | 8:23 PM | | procedure are in the | | | | PST | | results section. | + +--------+ + + + | CAPILLARY BLOOD | Routin | 11/29/2011 | Burkitt's lymphoma | Results for this | | GLUCOSE (NO CHG), | e | 11:14 AM | (HCC) | procedure are in the | | POC | | PST | | results section. | + +--------+ + + + | CAPILLARY BLOOD | Routin | 11/29/2011 | Burkitt's lymphoma | Results for this | | GLUCOSE (NO CHG), | e | 7:46 AM | (HCC) | procedure are in the | | POC | | PST | | results section. | + +--------+ + + + | EXTENDED DIFF | Routin | 11/29/2011 | | Results for this | | | e | 12:31 AM | | procedure are in the | | | | PST | | results section. | + +--------+ + + + | DIFFERENTIAL | Routin | 11/29/2011 | | Results for this | | | e | 12:31 AM | | procedure are in the | | | | PST | | results section. | + +--------+ + + + | CBC, WITH | Routin | 11/29/2011 | | Results for this | | DIFFERENTIAL | e | 12:31 AM | | procedure are in the | | | | PST | | results section. | + +--------+ + + + | COMPLETE METABOLIC | Routin | 11/29/2011 | | Results for this | | SET | e | 12:31 AM | | procedure are in the | | (NA,K,CL,CO2,BUN,CRE | | PST | | results section. | | AT,GLUC,CA,AST,ALT,B | | | | | | CAIN TOTAL,ALK | | | | | | PHOS,ALB,PROT TOTAL) | | | | | + +--------+ + + + | PHOSPHORUS, PLASMA | Routin | 11/29/2011 | | Results for this | | | e | 12:31 AM | | procedure are in the | | | | PST | | results section. | + +--------+ + + + | URIC ACID, PLASMA | Routin | 11/29/2011 | | Results for this | | | e | 12:31 AM | | procedure are in the | | | | PST | | results section. | + +--------+ + + + | MAGNESIUM, PLASMA | Routin | 11/29/2011 | | Results for this | | | e | 12:31 AM | | procedure are in the | | | | PST | | results section. | + +--------+ + + + | LDH TOTAL, PLASMA | Routin | 11/29/2011 | | Results for this | | | e | 12:31 AM | | procedure are in the | | | | PST | | results section. | + +--------+ + + + | CAPILLARY BLOOD | Routin | 11/29/2011 | Burkitt's lymphoma | Results for this | | GLUCOSE (NO CHG), | e | 12:25 AM | (HCC) | procedure are in the | | POC | | PST | | results section. | + +--------+ + + + | CAPILLARY BLOOD | Routin | 11/28/2011 | Burkitt's lymphoma | Results for this | | GLUCOSE (NO CHG), | e | 7:28 PM | (HCC) | procedure are in the | | POC | | PST | | results section. | + +--------+ + + + | CAPILLARY BLOOD | Routin | 11/28/2011 | Burkitt's lymphoma | Results for this | | GLUCOSE (NO CHG), | e | 4:17 PM | (HCC) | procedure are in the | | POC | | PST | | results section. | + +--------+ + + + | TRANSFUSE RED CELLS, | Routin | 11/28/2011 | | | | LEUKOREDUCED | e | 3:16 PM | | | | | | PST | | | + +--------+ + + + | TRANSFUSE RED CELLS, | Routin | 11/28/2011 | | | | LEUKOREDUCED | e | 3:16 PM | | | | | | PST | | | + +--------+ + + + | CAPILLARY BLOOD | Routin | 11/28/2011 | Burkitt's lymphoma | Results for this | | GLUCOSE (NO CHG), | e | 11:53 AM | (HCC) | procedure are in the | | POC | | PST | | results section. | + +--------+ + + + | CAPILLARY BLOOD | Routin | 11/28/2011 | Burkitt's lymphoma | Results for this | | GLUCOSE (NO CHG), | e | 7:25 AM | (HCC) | procedure are in the | | POC | | PST | | results section. | + +--------+ + + + | TYPE AND SCREEN | Routin | 11/28/2011 | | Results for this | | | e | 2:08 AM | | procedure are in the | | | | PST | | results section. | + +--------+ + + + | PRODUCT - RED CELLS | Routin | 11/28/2011 | | Results for this | | LEUKOREDUCED | e | 2:07 AM | | procedure are in the | | | | PST | | results section. | + +--------+ + + + | PRODUCT - RED CELLS | Routin | 11/28/2011 | | Results for this | | LEUKOREDUCED | e | 2:07 AM | | procedure are in the | | | | PST | | results section. | + +--------+ + + + | CAPILLARY BLOOD | Routin | 11/28/2011 | Burkitt's lymphoma | Results for this | | GLUCOSE (NO CHG), | e | 12:24 AM | (HCC) | procedure are in the | | POC | | PST | | results section. | + +--------+ + + + | EXTENDED DIFF | Routin | 11/28/2011 | | Results for this | | | e | 12:14 AM | | procedure are in the | | | | PST | | results section. | + +--------+ + + + | DIFFERENTIAL | Routin | 11/28/2011 | | Results for this | | | e | 12:14 AM | | procedure are in the | | | | PST | | results section. | + +--------+ + + + | CBC, WITH | Routin | 11/28/2011 | | Results for this | | DIFFERENTIAL | e | 12:14 AM | | procedure are in the | | | | PST | | results section. | + +--------+ + + + | VANCOMYCIN, TROUGH | Routin | 11/28/2011 | | Results for this | | | e | 12:14 AM | | procedure are in the | | | | PST | | results section. | + +--------+ + + + | COMPLETE METABOLIC | Routin | 11/28/2011 | | Results for this | | SET | e | 12:14 AM | | procedure are in the | | (NA,K,CL,CO2,BUN,CRE | | PST | | results section. | | AT,GLUC,CA,AST,ALT,B | | | | | | CAIN TOTAL,ALK | | | | | | PHOS,ALB,PROT TOTAL) | | | | | + +--------+ + + + | PHOSPHORUS, PLASMA | Routin | 11/28/2011 | | Results for this | | | e | 12:14 AM | | procedure are in the | | | | PST | | results section. | + +--------+ + + + | URIC ACID, PLASMA | Routin | 11/28/2011 | | Results for this | | | e | 12:14 AM | | procedure are in the | | | | PST | | results section. | + +--------+ + + + | MAGNESIUM, PLASMA | Routin | 11/28/2011 | | Results for this | | | e | 12:14 AM | | procedure are in the | | | | PST | | results section. | + +--------+ + + + | LDH TOTAL, PLASMA | Routin | 11/28/2011 | | Results for this | | | e | 12:14 AM | | procedure are in the | | | | PST | | results section. | + +--------+ + + + | CAPILLARY BLOOD | Routin | 11/27/2011 | Burkitt's lymphoma | Results for this | | GLUCOSE (NO CHG), | e | 7:12 PM | (HCC) | procedure are in the | | POC | | PST | | results section. | + +--------+ + + + | C. DIFFICILE PCR | Routin | 11/27/2011 | | Results for this | | | e | 6:18 PM | | procedure are in the | | | | PST | | results section. | + +--------+ + + + | C. DIFFICILE TOXIN, | Routin | 11/27/2011 | | Results for this | | W/REFLEX | e | 6:18 PM | | procedure are in the | | CONFIRMATION IF | | PST | | results section. | | INDETERMINATE | | | | | | RESULTS | | | | | + +--------+ + + + | CAPILLARY BLOOD | Routin | 11/27/2011 | Burkitt's lymphoma | Results for this | | GLUCOSE (NO CHG), | e | 3:16 PM | (HCC) | procedure are in the | | POC | | PST | | results section. | + +--------+ + + + | CAPILLARY BLOOD | Routin | 11/27/2011 | Burkitt's lymphoma | Results for this | | GLUCOSE (NO CHG), | e | 11:12 AM | (HCC) | procedure are in the | | POC | | PST | | results section. | + +--------+ + + + | CAPILLARY BLOOD | Routin | 11/27/2011 | Burkitt's lymphoma | Results for this | | GLUCOSE (NO CHG), | e | 6:45 AM | (HCC) | procedure are in the | | POC | | PST | | results section. | + +--------+ + + + | CBC, WITH | Routin | 11/27/2011 | | Results for this | | DIFFERENTIAL | e | 12:16 AM | | procedure are in the | | | | PST | | results section. | + +--------+ + + + | COMPLETE METABOLIC | Routin | 11/27/2011 | | Results for this | | SET | e | 12:16 AM | | procedure are in the | | (NA,K,CL,CO2,BUN,CRE | | PST | | results section. | | AT,GLUC,CA,AST,ALT,B | | | | | | CAIN TOTAL,ALK | | | | | | PHOS,ALB,PROT TOTAL) | | | | | + +--------+ + + + | PHOSPHORUS, PLASMA | Routin | 11/27/2011 | | Results for this | | | e | 12:16 AM | | procedure are in the | | | | PST | | results section. | + +--------+ + + + | URIC ACID, PLASMA | Routin | 11/27/2011 | | Results for this | | | e | 12:16 AM | | procedure are in the | | | | PST | | results section. | + +--------+ + + + | MAGNESIUM, PLASMA | Routin | 11/27/2011 | | Results for this | | | e | 12:16 AM | | procedure are in the | | | | PST | | results section. | + +--------+ + + + | LDH TOTAL, PLASMA | Routin | 11/27/2011 | | Results for this | | | e | 12:16 AM | | procedure are in the | | | | PST | | results section. | + +--------+ + + + | LDH TOTAL, PLASMA | Routin | 11/27/2011 | | Results for this | | | e | 12:16 AM | | procedure are in the | | | | PST | | results section. | + +--------+ + + + | CAPILLARY BLOOD | Routin | 11/26/2011 | Burkitt's lymphoma | Results for this | | GLUCOSE (NO CHG), | e | 10:40 PM | (HCC) | procedure are in the | | POC | | PST | | results section. | + +--------+ + + + | CAPILLARY BLOOD | Routin | 11/26/2011 | Burkitt's lymphoma | Results for this | | GLUCOSE (NO CHG), | e | 4:59 PM | (HCC) | procedure are in the | | POC | | PST | | results section. | + +--------+ + + + | CAPILLARY BLOOD | Routin | 11/26/2011 | Burkitt's lymphoma | Results for this | | GLUCOSE (NO CHG), | e | 1:50 PM | (HCC) | procedure are in the | | POC | | PST | | results section. | + +--------+ + + + | CULTURE, MRSA ONLY | Routin | 11/26/2011 | | Results for this | | | e | 11:06 AM | | procedure are in the | | | | PST | | results section. | + +--------+ + + + | CULTURE, BLOOD BACTI | Routin | 11/26/2011 | | Results for this | | & YEAST | e | 10:00 AM | | procedure are in the | | | | PST | | results section. | + +--------+ + + + | CAPILLARY BLOOD | Routin | 11/26/2011 | Burkitt's lymphoma | Results for this | | GLUCOSE (NO CHG), | e | 8:24 AM | (HCC) | procedure are in the | | POC | | PST | | results section. | + +--------+ + + + | CBC, WITH | Routin | 11/26/2011 | | Results for this | | DIFFERENTIAL | e | 12:16 AM | | procedure are in the | | | | PST | | results section. | + +--------+ + + + | COMPLETE METABOLIC | Routin | 11/26/2011 | | Results for this | | SET | e | 12:16 AM | | procedure are in the | | (NA,K,CL,CO2,BUN,CRE | | PST | | results section. | | AT,GLUC,CA,AST,ALT,B | | | | | | CAIN TOTAL,ALK | | | | | | PHOS,ALB,PROT TOTAL) | | | | | + +--------+ + + + | PHOSPHORUS, PLASMA | Routin | 11/26/2011 | | Results for this | | | e | 12:16 AM | | procedure are in the | | | | PST | | results section. | + +--------+ + + + | BILIRUBIN DIRECT | Routin | 11/26/2011 | | Results for this | | | e | 12:16 AM | | procedure are in the | | | | PST | | results section. | + +--------+ + + + | URIC ACID, PLASMA | Routin | 11/26/2011 | | Results for this | | | e | 12:16 AM | | procedure are in the | | | | PST | | results section. | + +--------+ + + + | MAGNESIUM, PLASMA | Routin | 11/26/2011 | | Results for this | | | e | 12:16 AM | | procedure are in the | | | | PST | | results section. | + +--------+ + + + | LDH TOTAL, PLASMA | Routin | 11/26/2011 | | Results for this | | | e | 12:16 AM | | procedure are in the | | | | PST | | results section. | + +--------+ + + + | CHOLESTEROL TOTAL, | Routin | 11/26/2011 | | Results for this | | PLASMA | e | 12:16 AM | | procedure are in the | | | | PST | | results section. | + +--------+ + + + | CAPILLARY BLOOD | Routin | 11/25/2011 | Burkitt's lymphoma | Results for this | | GLUCOSE (NO CHG), | e | 10:24 PM | (HCC) | procedure are in the | | POC | | PST | | results section. | + +--------+ + + + | CAPILLARY BLOOD | Routin | 11/25/2011 | Burkitt's lymphoma | Results for this | | GLUCOSE (NO CHG), | e | 4:53 PM | (HCC) | procedure are in the | | POC | | PST | | results section. | + +--------+ + + + | CAPILLARY BLOOD | Routin | 11/25/2011 | Burkitt's lymphoma | Results for this | | GLUCOSE (NO CHG), | e | 12:59 PM | (HCC) | procedure are in the | | POC | | PST | | results section. | + +--------+ + + + | CAPILLARY BLOOD | Routin | 11/25/2011 | Burkitt's lymphoma | Results for this | | GLUCOSE (NO CHG), | e | 7:48 AM | (HCC) | procedure are in the | | POC | | PST | | results section. | + +--------+ + + + | CBC, WITH | Routin | 11/25/2011 | | Results for this | | DIFFERENTIAL | e | 12:06 AM | | procedure are in the | | | | PST | | results section. | + +--------+ + + + | COMPLETE METABOLIC | Routin | 11/25/2011 | | Results for this | | SET | e | 12:06 AM | | procedure are in the | | (NA,K,CL,CO2,BUN,CRE | | PST | | results section. | | AT,GLUC,CA,AST,ALT,B | | | | | | CAIN TOTAL,ALK | | | | | | PHOS,ALB,PROT TOTAL) | | | | | + +--------+ + + + | PHOSPHORUS, PLASMA | Routin | 11/25/2011 | | Results for this | | | e | 12:06 AM | | procedure are in the | | | | PST | | results section. | + +--------+ + + + | URIC ACID, PLASMA | Routin | 11/25/2011 | | Results for this | | | e | 12:06 AM | | procedure are in the | | | | PST | | results section. | + +--------+ + + + | MAGNESIUM, PLASMA | Routin | 11/25/2011 | | Results for this | | | e | 12:06 AM | | procedure are in the | | | | PST | | results section. | + +--------+ + + + | LDH TOTAL, PLASMA | Routin | 11/25/2011 | | Results for this | | | e | 12:06 AM | | procedure are in the | | | | PST | | results section. | + +--------+ + + + | CAPILLARY BLOOD | Routin | 11/24/2011 | Burkitt's lymphoma | Results for this | | GLUCOSE (NO CHG), | e | 9:56 PM | (HCC) | procedure are in the | | POC | | PST | | results section. | + +--------+ + + + | CAPILLARY BLOOD | Routin | 11/24/2011 | Burkitt's lymphoma | Results for this | | GLUCOSE (NO CHG), | e | 5:43 PM | (HCC) | procedure are in the | | POC | | PST | | results section. | + +--------+ + + + | CAPILLARY BLOOD | Routin | 11/24/2011 | Burkitt's lymphoma | Results for this | | GLUCOSE (NO CHG), | e | 1:14 PM | (HCC) | procedure are in the | | POC | | PST | | results section. | + +--------+ + + + | CAPILLARY BLOOD | Routin | 11/24/2011 | Burkitt's lymphoma | Results for this | | GLUCOSE (NO CHG), | e | 7:41 AM | (HCC) | procedure are in the | | POC | | PST | | results section. | + +--------+ + + + | CBC, WITH | Routin | 11/24/2011 | | Results for this | | DIFFERENTIAL | e | 12:25 AM | | procedure are in the | | | | PST | | results section. | + +--------+ + + + | COMPLETE METABOLIC | Routin | 11/24/2011 | | Results for this | | SET | e | 12:25 AM | | procedure are in the | | (NA,K,CL,CO2,BUN,CRE | | PST | | results section. | | AT,GLUC,CA,AST,ALT,B | | | | | | CAIN TOTAL,ALK | | | | | | PHOS,ALB,PROT TOTAL) | | | | | + +--------+ + + + | PHOSPHORUS, PLASMA | Routin | 11/24/2011 | | Results for this | | | e | 12:25 AM | | procedure are in the | | | | PST | | results section. | + +--------+ + + + | URIC ACID, PLASMA | Routin | 11/24/2011 | | Results for this | | | e | 12:25 AM | | procedure are in the | | | | PST | | results section. | + +--------+ + + + | MAGNESIUM, PLASMA | Routin | 11/24/2011 | | Results for this | | | e | 12:25 AM | | procedure are in the | | | | PST | | results section. | + +--------+ + + + | LDH TOTAL, PLASMA | Routin | 11/24/2011 | | Results for this | | | e | 12:25 AM | | procedure are in the | | | | PST | | results section. | + +--------+ + + + | CAPILLARY BLOOD | Routin | 11/23/2011 | Burkitt's lymphoma | Results for this | | GLUCOSE (NO CHG), | e | 9:37 PM | (HCC) | procedure are in the | | POC | | PST | | results section. | + +--------+ + + + | X-RAY LUMBAR | Routin | 11/23/2011 | | Results for this | | PUNCTURE 4 CHEMO | e | 3:00 PM | | procedure are in the | | ADMIN W/GUIDANCE | | PST | | results section. | + +--------+ + + + | CSF INFO PANEL | Routin | 11/23/2011 | | Results for this | | | e | 2:25 PM | | procedure are in the | | | | PST | | results section. | + +--------+ + + + | LDH, CSF | Routin | 11/23/2011 | | Results for this | | | e | 2:25 PM | | procedure are in the | | | | PST | | results section. | + +--------+ + + + | GLUCOSE, CSF | Routin | 11/23/2011 | | Results for this | | | e | 2:25 PM | | procedure are in the | | | | PST | | results section. | + +--------+ + + + | CELL COUNT DIFF, CSF | Routin | 11/23/2011 | | Results for this | | | e | 2:25 PM | | procedure are in the | | | | PST | | results section. | + +--------+ + + + | PROTEIN, CSF | Routin | 11/23/2011 | | Results for this | | | e | 2:25 PM | | procedure are in the | | | | PST | | results section. | + +--------+ + + + | CAPILLARY BLOOD | Routin | 11/23/2011 | | Results for this | | GLUCOSE (NO CHG), | e | 12:00 PM | | procedure are in the | | POC | | PST | | results section. | + +--------+ + + + | CAPILLARY BLOOD | Routin | 11/23/2011 | | Results for this | | GLUCOSE (NO CHG), | e | 8:02 AM | | procedure are in the | | POC | | PST | | results section. | + +--------+ + + + | DIFFERENTIAL | Routin | 11/23/2011 | | Results for this | | | e | 12:02 AM | | procedure are in the | | | | PST | | results section. | + +--------+ + + + | INR | Routin | 11/23/2011 | | Results for this | | | e | 12:02 AM | | procedure are in the | | | | PST | | results section. | + +--------+ + + + | CBC, WITH | Routin | 11/23/2011 | | Results for this | | DIFFERENTIAL | e | 12:02 AM | | procedure are in the | | | | PST | | results section. | + +--------+ + + + | COMPLETE METABOLIC | Routin | 11/23/2011 | | Results for this | | SET | e | 12:02 AM | | procedure are in the | | (NA,K,CL,CO2,BUN,CRE | | PST | | results section. | | AT,GLUC,CA,AST,ALT,B | | | | | | CAIN TOTAL,ALK | | | | | | PHOS,ALB,PROT TOTAL) | | | | | + +--------+ + + + | COAGULOPATHY PANEL | Routin | 11/23/2011 | | Results for this | | (INR,APTT,FIBRINOGEN | e | 12:02 AM | | procedure are in the | | ) | | PST | | results section. | + +--------+ + + + | PHOSPHORUS, PLASMA | Routin | 11/23/2011 | | Results for this | | | e | 12:02 AM | | procedure are in the | | | | PST | | results section. | + +--------+ + + + | BILIRUBIN DIRECT | Routin | 11/23/2011 | | Results for this | | | e | 12:02 AM | | procedure are in the | | | | PST | | results section. | + +--------+ + + + | URIC ACID, PLASMA | Routin | 11/23/2011 | | Results for this | | | e | 12:02 AM | | procedure are in the | | | | PST | | results section. | + +--------+ + + + | MAGNESIUM, PLASMA | Routin | 11/23/2011 | | Results for this | | | e | 12:02 AM | | procedure are in the | | | | PST | | results section. | + +--------+ + + + | LDH TOTAL, PLASMA | Routin | 11/23/2011 | | Results for this | | | e | 12:02 AM | | procedure are in the | | | | PST | | results section. | + +--------+ + + + | CHOLESTEROL TOTAL, | Routin | 11/23/2011 | | Results for this | | PLASMA | e | 12:02 AM | | procedure are in the | | | | PST | | results section. | + +--------+ + + + | LEUKEMIA/LYMPHOMA | Routin | 11/23/2011 | | Results for this | | MARKER - CSF/BODY | e | | | procedure are in the | | FLUID | | | | results section. | + +--------+ + + + | CAPILLARY BLOOD | Routin | 11/22/2011 | | Results for this | | GLUCOSE (NO CHG), | e | 9:50 PM | | procedure are in the | | POC | | PST | | results section. | + +--------+ + + + | CAPILLARY BLOOD | Routin | 11/22/2011 | | Results for this | | GLUCOSE (NO CHG), | e | 5:52 PM | | procedure are in the | | POC | | PST | | results section. | + +--------+ + + + | CAPILLARY BLOOD | Routin | 11/22/2011 | | Results for this | | GLUCOSE (NO CHG), | e | 1:01 PM | | procedure are in the | | POC | | PST | | results section. | + +--------+ + + + | CAPILLARY BLOOD | Routin | 11/22/2011 | | Results for this | | GLUCOSE (NO CHG), | e | 8:27 AM | | procedure are in the | | POC | | PST | | results section. | + +--------+ + + + | DIFFERENTIAL | Routin | 11/22/2011 | | Results for this | | | e | 12:05 AM | | procedure are in the | | | | PST | | results section. | + +--------+ + + + | CBC, WITH | Routin | 11/22/2011 | | Results for this | | DIFFERENTIAL | e | 12:05 AM | | procedure are in the | | | | PST | | results section. | + +--------+ + + + | COMPLETE METABOLIC | Routin | 11/22/2011 | | Results for this | | SET | e | 12:05 AM | | procedure are in the | | (NA,K,CL,CO2,BUN,CRE | | PST | | results section. | | AT,GLUC,CA,AST,ALT,B | | | | | | CAIN TOTAL,ALK | | | | | | PHOS,ALB,PROT TOTAL) | | | | | + +--------+ + + + | PHOSPHORUS, PLASMA | Routin | 11/22/2011 | | Results for this | | | e | 12:05 AM | | procedure are in the | | | | PST | | results section. | + +--------+ + + + | URIC ACID, PLASMA | Routin | 11/22/2011 | | Results for this | | | e | 12:05 AM | | procedure are in the | | | | PST | | results section. | + +--------+ + + + | MAGNESIUM, PLASMA | Routin | 11/22/2011 | | Results for this | | | e | 12:05 AM | | procedure are in the | | | | PST | | results section. | + +--------+ + + + | LDH TOTAL, PLASMA | Routin | 11/22/2011 | | Results for this | | | e | 12:05 AM | | procedure are in the | | | | PST | | results section. | + +--------+ + + + | CAPILLARY BLOOD | Routin | 11/21/2011 | | Results for this | | GLUCOSE (NO CHG), | e | 9:46 PM | | procedure are in the | | POC | | PST | | results section. | + +--------+ + + + | CAPILLARY BLOOD | Routin | 11/21/2011 | | Results for this | | GLUCOSE (NO CHG), | e | 5:29 PM | | procedure are in the | | POC | | PST | | results section. | + +--------+ + + + | CAPILLARY BLOOD | Routin | 11/21/2011 | | Results for this | | GLUCOSE (NO CHG), | e | 12:40 PM | | procedure are in the | | POC | | PST | | results section. | + +--------+ + + + | CAPILLARY BLOOD | Routin | 11/21/2011 | | Results for this | | GLUCOSE (NO CHG), | e | 8:01 AM | | procedure are in the | | POC | | PST | | results section. | + +--------+ + + + | VRE (KATLYN) BY PCR | Routin | 11/21/2011 | | Results for this | | | e | 12:40 AM | | procedure are in the | | | | PST | | results section. | + +--------+ + + + | DIFFERENTIAL | Routin | 11/21/2011 | | Results for this | | | e | 12:40 AM | | procedure are in the | | | | PST | | results section. | + +--------+ + + + | CBC, WITH | Routin | 11/21/2011 | | Results for this | | DIFFERENTIAL | e | 12:40 AM | | procedure are in the | | | | PST | | results section. | + +--------+ + + + | COMPLETE METABOLIC | Routin | 11/21/2011 | | Results for this | | SET | e | 12:40 AM | | procedure are in the | | (NA,K,CL,CO2,BUN,CRE | | PST | | results section. | | AT,GLUC,CA,AST,ALT,B | | | | | | CAIN TOTAL,ALK | | | | | | PHOS,ALB,PROT TOTAL) | | | | | + +--------+ + + + | PHOSPHORUS, PLASMA | Routin | 11/21/2011 | | Results for this | | | e | 12:40 AM | | procedure are in the | | | | PST | | results section. | + +--------+ + + + | URIC ACID, PLASMA | Routin | 11/21/2011 | | Results for this | | | e | 12:40 AM | | procedure are in the | | | | PST | | results section. | + +--------+ + + + | MAGNESIUM, PLASMA | Routin | 11/21/2011 | | Results for this | | | e | 12:40 AM | | procedure are in the | | | | PST | | results section. | + +--------+ + + + | LDH TOTAL, PLASMA | Routin | 11/21/2011 | | Results for this | | | e | 12:40 AM | | procedure are in the | | | | PST | | results section. | + +--------+ + + + | CAPILLARY BLOOD | Routin | 11/20/2011 | | Results for this | | GLUCOSE (NO CHG), | e | 9:59 PM | | procedure are in the | | POC | | PST | | results section. | + +--------+ + + + | CAPILLARY BLOOD | Routin | 11/20/2011 | | Results for this | | GLUCOSE (NO CHG), | e | 6:33 PM | | procedure are in the | | POC | | PST | | results section. | + +--------+ + + + | CAPILLARY BLOOD | Routin | 11/20/2011 | | Results for this | | GLUCOSE (NO CHG), | e | 1:28 PM | | procedure are in the | | POC | | PST | | results section. | + +--------+ + + + | CAPILLARY BLOOD | Routin | 11/20/2011 | | Results for this | | GLUCOSE (NO CHG), | e | 7:54 AM | | procedure are in the | | POC | | PST | | results section. | + +--------+ + + + | DIFFERENTIAL | Routin | 11/20/2011 | | Results for this | | | e | 12:10 AM | | procedure are in the | | | | PST | | results section. | + +--------+ + + + | CBC, WITH | Routin | 11/20/2011 | | Results for this | | DIFFERENTIAL | e | 12:10 AM | | procedure are in the | | | | PST | | results section. | + +--------+ + + + | COMPLETE METABOLIC | Routin | 11/20/2011 | | Results for this | | SET | e | 12:10 AM | | procedure are in the | | (NA,K,CL,CO2,BUN,CRE | | PST | | results section. | | AT,GLUC,CA,AST,ALT,B | | | | | | CAIN TOTAL,ALK | | | | | | PHOS,ALB,PROT TOTAL) | | | | | + +--------+ + + + | PHOSPHORUS, PLASMA | Routin | 11/20/2011 | | Results for this | | | e | 12:10 AM | | procedure are in the | | | | PST | | results section. | + +--------+ + + + | URIC ACID, PLASMA | Routin | 11/20/2011 | | Results for this | | | e | 12:10 AM | | procedure are in the | | | | PST | | results section. | + +--------+ + + + | MAGNESIUM, PLASMA | Routin | 11/20/2011 | | Results for this | | | e | 12:10 AM | | procedure are in the | | | | PST | | results section. | + +--------+ + + + | LDH TOTAL, PLASMA | Routin | 11/20/2011 | | Results for this | | | e | 12:10 AM | | procedure are in the | | | | PST | | results section. | + +--------+ + + + | CAPILLARY BLOOD | Routin | 11/19/2011 | | Results for this | | GLUCOSE (NO CHG), | e | 9:57 PM | | procedure are in the | | POC | | PST | | results section. | + +--------+ + + + | CAPILLARY BLOOD | Routin | 11/19/2011 | | Results for this | | GLUCOSE (NO CHG), | e | 6:41 PM | | procedure are in the | | POC | | PST | | results section. | + +--------+ + + + | CAPILLARY BLOOD | Routin | 11/19/2011 | | Results for this | | GLUCOSE (NO CHG), | e | 1:44 PM | | procedure are in the | | POC | | PST | | results section. | + +--------+ + + + | CAPILLARY BLOOD | Routin | 11/19/2011 | | Results for this | | GLUCOSE (NO CHG), | e | 7:52 AM | | procedure are in the | | POC | | PST | | results section. | + +--------+ + + + | DIFFERENTIAL | Routin | 11/19/2011 | | Results for this | | | e | 12:01 AM | | procedure are in the | | | | PST | | results section. | + +--------+ + + + | CBC, WITH | Routin | 11/19/2011 | | Results for this | | DIFFERENTIAL | e | 12:01 AM | | procedure are in the | | | | PST | | results section. | + +--------+ + + + | COMPLETE METABOLIC | Routin | 11/19/2011 | | Results for this | | SET | e | 12:01 AM | | procedure are in the | | (NA,K,CL,CO2,BUN,CRE | | PST | | results section. | | AT,GLUC,CA,AST,ALT,B | | | | | | CAIN TOTAL,ALK | | | | | | PHOS,ALB,PROT TOTAL) | | | | | + +--------+ + + + | PHOSPHORUS, PLASMA | Routin | 11/19/2011 | | Results for this | | | e | 12:01 AM | | procedure are in the | | | | PST | | results section. | + +--------+ + + + | BILIRUBIN DIRECT | Routin | 11/19/2011 | | Results for this | | | e | 12:01 AM | | procedure are in the | | | | PST | | results section. | + +--------+ + + + | URIC ACID, PLASMA | Routin | 11/19/2011 | | Results for this | | | e | 12:01 AM | | procedure are in the | | | | PST | | results section. | + +--------+ + + + | MAGNESIUM, PLASMA | Routin | 11/19/2011 | | Results for this | | | e | 12:01 AM | | procedure are in the | | | | PST | | results section. | + +--------+ + + + | LDH TOTAL, PLASMA | Routin | 11/19/2011 | | Results for this | | | e | 12:01 AM | | procedure are in the | | | | PST | | results section. | + +--------+ + + + | CHOLESTEROL TOTAL, | Routin | 11/19/2011 | | Results for this | | PLASMA | e | 12:01 AM | | procedure are in the | | | | PST | | results section. | + +--------+ + + + | CAPILLARY BLOOD | Routin | 11/18/2011 | | Results for this | | GLUCOSE (NO CHG), | e | 9:51 PM | | procedure are in the | | POC | | PST | | results section. | + +--------+ + + + | BASIC METABOLIC SET | Routin | 11/18/2011 | | Results for this | | (NA, K, CL, TCO2, | e | 6:56 PM | | procedure are in the | | BUN, CR, GLU, CA) | | PST | | results section. | + +--------+ + + + | CSF INFO PANEL | Routin | 11/18/2011 | | Results for this | | | e | 6:27 PM | | procedure are in the | | | | PST | | results section. | + +--------+ + + + | LDH, CSF | Routin | 11/18/2011 | | Results for this | | | e | 6:27 PM | | procedure are in the | | | | PST | | results section. | + +--------+ + + + | GLUCOSE, CSF | Routin | 11/18/2011 | | Results for this | | | e | 6:27 PM | | procedure are in the | | | | PST | | results section. | + +--------+ + + + | CELL COUNT DIFF, CSF | Routin | 11/18/2011 | | Results for this | | | e | 6:27 PM | | procedure are in the | | | | PST | | results section. | + +--------+ + + + | PROTEIN, CSF | Routin | 11/18/2011 | | Results for this | | | e | 6:27 PM | | procedure are in the | | | | PST | | results section. | + +--------+ + + + | CAPILLARY BLOOD | Routin | 11/18/2011 | | Results for this | | GLUCOSE (NO CHG), | e | 5:16 PM | | procedure are in the | | POC | | PST | | results section. | + +--------+ + + + | X-RAY LUMBAR | Routin | 11/18/2011 | | Results for this | | PUNCTURE 4 CHEMO | e | 3:12 PM | | procedure are in the | | ADMIN W/GUIDANCE | | PST | | results section. | + +--------+ + + + | CAPILLARY BLOOD | Routin | 11/18/2011 | | Results for this | | GLUCOSE (NO CHG), | e | 12:03 PM | | procedure are in the | | POC | | PST | | results section. | + +--------+ + + + | CAPILLARY BLOOD | Routin | 11/18/2011 | | Results for this | | GLUCOSE (NO CHG), | e | 7:41 AM | | procedure are in the | | POC | | PST | | results section. | + +--------+ + + + | BASIC METABOLIC SET | Routin | 11/18/2011 | | Results for this | | (NA, K, CL, TCO2, | e | 7:10 AM | | procedure are in the | | BUN, CR, GLU, CA) | | PST | | results section. | + +--------+ + + + | PHOSPHORUS, PLASMA | Routin | 11/18/2011 | | Results for this | | | e | 7:10 AM | | procedure are in the | | | | PST | | results section. | + +--------+ + + + | URIC ACID, PLASMA | Routin | 11/18/2011 | | Results for this | | | e | 7:10 AM | | procedure are in the | | | | PST | | results section. | + +--------+ + + + | LDH TOTAL, PLASMA | Routin | 11/18/2011 | | Results for this | | | e | 7:10 AM | | procedure are in the | | | | PST | | results section. | + +--------+ + + + | DIFFERENTIAL | Routin | 11/18/2011 | | Results for this | | | e | 12:50 AM | | procedure are in the | | | | PST | | results section. | + +--------+ + + + | CBC, WITH | Routin | 11/18/2011 | | Results for this | | DIFFERENTIAL | e | 12:50 AM | | procedure are in the | | | | PST | | results section. | + +--------+ + + + | COMPLETE METABOLIC | Routin | 11/18/2011 | | Results for this | | SET | e | 12:50 AM | | procedure are in the | | (NA,K,CL,CO2,BUN,CRE | | PST | | results section. | | AT,GLUC,CA,AST,ALT,B | | | | | | CAIN TOTAL,ALK | | | | | | PHOS,ALB,PROT TOTAL) | | | | | + +--------+ + + + | PHOSPHORUS, PLASMA | Routin | 11/18/2011 | | Results for this | | | e | 12:50 AM | | procedure are in the | | | | PST | | results section. | + +--------+ + + + | URIC ACID, PLASMA | Routin | 11/18/2011 | | Results for this | | | e | 12:50 AM | | procedure are in the | | | | PST | | results section. | + +--------+ + + + | MAGNESIUM, PLASMA | Routin | 11/18/2011 | | Results for this | | | e | 12:50 AM | | procedure are in the | | | | PST | | results section. | + +--------+ + + + | LDH TOTAL, PLASMA | Routin | 11/18/2011 | | Results for this | | | e | 12:50 AM | | procedure are in the | | | | PST | | results section. | + +--------+ + + + | HEMATOPATHOLOGY | Routin | 11/18/2011 | | Results for this | | | e | | | procedure are in the | | | | | | results section. | + +--------+ + + + | CAPILLARY BLOOD | Routin | 11/17/2011 | | Results for this | | GLUCOSE (NO CHG), | e | 9:35 PM | | procedure are in the | | POC | | PST | | results section. | + +--------+ + + + | BASIC METABOLIC SET | Routin | 11/17/2011 | | Results for this | | (NA, K, CL, TCO2, | e | 6:15 PM | | procedure are in the | | BUN, CR, GLU, CA) | | PST | | results section. | + +--------+ + + + | PHOSPHORUS, PLASMA | Routin | 11/17/2011 | | Results for this | | | e | 6:15 PM | | procedure are in the | | | | PST | | results section. | + +--------+ + + + | URIC ACID, PLASMA | Routin | 11/17/2011 | | Results for this | | | e | 6:15 PM | | procedure are in the | | | | PST | | results section. | + +--------+ + + + | LDH TOTAL, PLASMA | Routin | 11/17/2011 | | Results for this | | | e | 6:15 PM | | procedure are in the | | | | PST | | results section. | + +--------+ + + + | CAPILLARY BLOOD | Routin | 11/17/2011 | | Results for this | | GLUCOSE (NO CHG), | e | 5:26 PM | | procedure are in the | | POC | | PST | | results section. | + +--------+ + + + | CAPILLARY BLOOD | Routin | 11/17/2011 | | Results for this | | GLUCOSE (NO CHG), | e | 12:42 PM | | procedure are in the | | POC | | PST | | results section. | + +--------+ + + + | BASIC METABOLIC SET | Routin | 11/17/2011 | | Results for this | | (NA, K, CL, TCO2, | e | 11:45 AM | | procedure are in the | | BUN, CR, GLU, CA) | | PST | | results section. | + +--------+ + + + | PHOSPHORUS, PLASMA | Routin | 11/17/2011 | | Results for this | | | e | 11:45 AM | | procedure are in the | | | | PST | | results section. | + +--------+ + + + | URIC ACID, PLASMA | Routin | 11/17/2011 | | Results for this | | | e | 11:45 AM | | procedure are in the | | | | PST | | results section. | + +--------+ + + + | LDH TOTAL, PLASMA | Routin | 11/17/2011 | | Results for this | | | e | 11:45 AM | | procedure are in the | | | | PST | | results section. | + +--------+ + + + | CAPILLARY BLOOD | Routin | 11/17/2011 | | Results for this | | GLUCOSE (NO CHG), | e | 8:08 AM | | procedure are in the | | POC | | PST | | results section. | + +--------+ + + + | BASIC METABOLIC SET | Routin | 11/17/2011 | | Results for this | | (NA, K, CL, TCO2, | e | 6:13 AM | | procedure are in the | | BUN, CR, GLU, CA) | | PST | | results section. | + +--------+ + + + | PHOSPHORUS, PLASMA | Routin | 11/17/2011 | | Results for this | | | e | 6:13 AM | | procedure are in the | | | | PST | | results section. | + +--------+ + + + | URIC ACID, PLASMA | Routin | 11/17/2011 | | Results for this | | | e | 6:13 AM | | procedure are in the | | | | PST | | results section. | + +--------+ + + + | LDH TOTAL, PLASMA | Routin | 11/17/2011 | | Results for this | | | e | 6:13 AM | | procedure are in the | | | | PST | | results section. | + +--------+ + + + | DIFFERENTIAL | Routin | 11/17/2011 | | Results for this | | | e | 12:26 AM | | procedure are in the | | | | PST | | results section. | + +--------+ + + + | CBC, WITH | Routin | 11/17/2011 | | Results for this | | DIFFERENTIAL | e | 12:26 AM | | procedure are in the | | | | PST | | results section. | + +--------+ + + + | COMPLETE METABOLIC | Routin | 11/17/2011 | | Results for this | | SET | e | 12:26 AM | | procedure are in the | | (NA,K,CL,CO2,BUN,CRE | | PST | | results section. | | AT,GLUC,CA,AST,ALT,B | | | | | | CAIN TOTAL,ALK | | | | | | PHOS,ALB,PROT TOTAL) | | | | | + +--------+ + + + | BASIC METABOLIC SET | Routin | 11/17/2011 | | Results for this | | (NA, K, CL, TCO2, | e | 12:26 AM | | procedure are in the | | BUN, CR, GLU, CA) | | PST | | results section. | + +--------+ + + + | PHOSPHORUS, PLASMA | Routin | 11/17/2011 | | Results for this | | | e | 12:26 AM | | procedure are in the | | | | PST | | results section. | + +--------+ + + + | URIC ACID, PLASMA | Routin | 11/17/2011 | | Results for this | | | e | 12:26 AM | | procedure are in the | | | | PST | | results section. | + +--------+ + + + | MAGNESIUM, PLASMA | Routin | 11/17/2011 | | Results for this | | | e | 12:26 AM | | procedure are in the | | | | PST | | results section. | + +--------+ + + + | LDH TOTAL, PLASMA | Routin | 11/17/2011 | | Results for this | | | e | 12:26 AM | | procedure are in the | | | | PST | | results section. | + +--------+ + + + | TREATMENT PARAMETERS | Routin | 11/17/2011 | Burkitt's lymphoma | | | #3 - [facility] | e | 12:00 AM | (HCC) | | | | | PST | | | + +--------+ + + + | NURSING | Routin | 11/17/2011 | Burkitt's lymphoma | | | COMMUNICATION #9 - | e | 12:00 AM | (HCC) | | | [place] | | PST | | | + +--------+ + + + | NURSING | Routin | 11/17/2011 | Burkitt's lymphoma | | | COMMUNICATION #8 - | e | 12:00 AM | (HCC) | | | [place] | | PST | | | + +--------+ + + + | CAPILLARY BLOOD | Routin | 11/16/2011 | | Results for this | | GLUCOSE (NO CHG), | e | 9:24 PM | | procedure are in the | | POC | | PST | | results section. | + +--------+ + + + | C. DIFFICILE PCR | Routin | 11/16/2011 | | Results for this | | | e | 7:02 PM | | procedure are in the | | | | PST | | results section. | + +--------+ + + + | C. DIFFICILE TOXIN, | Routin | 11/16/2011 | | Results for this | | W/REFLEX | e | 7:02 PM | | procedure are in the | | CONFIRMATION IF | | PST | | results section. | | INDETERMINATE | | | | | | RESULTS | | | | | + +--------+ + + + | BASIC METABOLIC SET | Routin | 11/16/2011 | | Results for this | | (NA, K, CL, TCO2, | e | 6:05 PM | | procedure are in the | | BUN, CR, GLU, CA) | | PST | | results section. | + +--------+ + + + | PHOSPHORUS, PLASMA | Routin | 11/16/2011 | | Results for this | | | e | 6:05 PM | | procedure are in the | | | | PST | | results section. | + +--------+ + + + | URIC ACID, PLASMA | Routin | 11/16/2011 | | Results for this | | | e | 6:05 PM | | procedure are in the | | | | PST | | results section. | + +--------+ + + + | LDH TOTAL, PLASMA | Routin | 11/16/2011 | | Results for this | | | e | 6:05 PM | | procedure are in the | | | | PST | | results section. | + +--------+ + + + | CAPILLARY BLOOD | Routin | 11/16/2011 | | Results for this | | GLUCOSE (NO CHG), | e | 4:23 PM | | procedure are in the | | POC | | PST | | results section. | + +--------+ + + + | CAPILLARY BLOOD | Routin | 11/16/2011 | | Results for this | | GLUCOSE (NO CHG), | e | 12:37 PM | | procedure are in the | | POC | | PST | | results section. | + +--------+ + + + | BASIC METABOLIC SET | Routin | 11/16/2011 | | Results for this | | (NA, K, CL, TCO2, | e | 12:00 PM | | procedure are in the | | BUN, CR, GLU, CA) | | PST | | results section. | + +--------+ + + + | PHOSPHORUS, PLASMA | Routin | 11/16/2011 | | Results for this | | | e | 12:00 PM | | procedure are in the | | | | PST | | results section. | + +--------+ + + + | URIC ACID, PLASMA | Routin | 11/16/2011 | | Results for this | | | e | 12:00 PM | | procedure are in the | | | | PST | | results section. | + +--------+ + + + | LDH TOTAL, PLASMA | Routin | 11/16/2011 | | Results for this | | | e | 12:00 PM | | procedure are in the | | | | PST | | results section. | + +--------+ + + + | CAPILLARY BLOOD | Routin | 11/16/2011 | | Results for this | | GLUCOSE (NO CHG), | e | 7:55 AM | | procedure are in the | | POC | | PST | | results section. | + +--------+ + + + | BASIC METABOLIC SET | Routin | 11/16/2011 | | Results for this | | (NA, K, CL, TCO2, | e | 6:35 AM | | procedure are in the | | BUN, CR, GLU, CA) | | PST | | results section. | + +--------+ + + + | PHOSPHORUS, PLASMA | Routin | 11/16/2011 | | Results for this | | | e | 6:35 AM | | procedure are in the | | | | PST | | results section. | + +--------+ + + + | URIC ACID, PLASMA | Routin | 11/16/2011 | | Results for this | | | e | 6:35 AM | | procedure are in the | | | | PST | | results section. | + +--------+ + + + | MAGNESIUM, PLASMA | Routin | 11/16/2011 | | Results for this | | | e | 6:35 AM | | procedure are in the | | | | PST | | results section. | + +--------+ + + + | DIFFERENTIAL | Routin | 11/16/2011 | | Results for this | | | e | 12:13 AM | | procedure are in the | | | | PST | | results section. | + +--------+ + + + | INR | Routin | 11/16/2011 | | Results for this | | | e | 12:13 AM | | procedure are in the | | | | PST | | results section. | + +--------+ + + + | CBC, WITH | Routin | 11/16/2011 | | Results for this | | DIFFERENTIAL | e | 12:13 AM | | procedure are in the | | | | PST | | results section. | + +--------+ + + + | COMPLETE METABOLIC | Routin | 11/16/2011 | | Results for this | | SET | e | 12:13 AM | | procedure are in the | | (NA,K,CL,CO2,BUN,CRE | | PST | | results section. | | AT,GLUC,CA,AST,ALT,B | | | | | | CAIN TOTAL,ALK | | | | | | PHOS,ALB,PROT TOTAL) | | | | | + +--------+ + + + | BASIC METABOLIC SET | Routin | 11/16/2011 | | Results for this | | (NA, K, CL, TCO2, | e | 12:13 AM | | procedure are in the | | BUN, CR, GLU, CA) | | PST | | results section. | + +--------+ + + + | PHOSPHORUS, PLASMA | Routin | 11/16/2011 | | Results for this | | | e | 12:13 AM | | procedure are in the | | | | PST | | results section. | + +--------+ + + + | BILIRUBIN DIRECT | Routin | 11/16/2011 | | Results for this | | | e | 12:13 AM | | procedure are in the | | | | PST | | results section. | + +--------+ + + + | URIC ACID, PLASMA | Routin | 11/16/2011 | | Results for this | | | e | 12:13 AM | | procedure are in the | | | | PST | | results section. | + +--------+ + + + | MAGNESIUM, PLASMA | Routin | 11/16/2011 | | Results for this | | | e | 12:13 AM | | procedure are in the | | | | PST | | results section. | + +--------+ + + + | LDH TOTAL, PLASMA | Routin | 11/16/2011 | | Results for this | | | e | 12:13 AM | | procedure are in the | | | | PST | | results section. | + +--------+ + + + | CHOLESTEROL TOTAL, | Routin | 11/16/2011 | | Results for this | | PLASMA | e | 12:13 AM | | procedure are in the | | | | PST | | results section. | + +--------+ + + + | TRANSTHORACIC | Routin | 11/16/2011 | | Results for this | | ECHOCARDIOGRAM, | e | 12:00 AM | | procedure are in the | | ADULT | | PST | | results section. | + +--------+ + + + | CAPILLARY BLOOD | Routin | 11/15/2011 | | Results for this | | GLUCOSE (NO CHG), | e | 9:26 PM | | procedure are in the | | POC | | PST | | results section. | + +--------+ + + + | LDH TOTAL, PLASMA | Routin | 11/15/2011 | | Results for this | | | e | 8:08 PM | | procedure are in the | | | | PST | | results section. | + +--------+ + + + | BASIC METABOLIC SET | Routin | 11/15/2011 | | Results for this | | (NA, K, CL, TCO2, | e | 8:01 PM | | procedure are in the | | BUN, CR, GLU, CA) | | PST | | results section. | + +--------+ + + + | PHOSPHORUS, PLASMA | Routin | 11/15/2011 | | Results for this | | | e | 8:01 PM | | procedure are in the | | | | PST | | results section. | + +--------+ + + + | URIC ACID, PLASMA | Routin | 11/15/2011 | | Results for this | | | e | 8:01 PM | | procedure are in the | | | | PST | | results section. | + +--------+ + + + | LDH TOTAL, PLASMA | Routin | 11/15/2011 | | Results for this | | | e | 8:01 PM | | procedure are in the | | | | PST | | results section. | + +--------+ + + + | CAPILLARY BLOOD | Routin | 11/15/2011 | | Results for this | | GLUCOSE (NO CHG), | e | 6:15 PM | | procedure are in the | | POC | | PST | | results section. | + +--------+ + + + | CAPILLARY BLOOD | Routin | 11/15/2011 | | Results for this | | GLUCOSE (NO CHG), | e | 2:15 PM | | procedure are in the | | POC | | PST | | results section. | + +--------+ + + + | BASIC METABOLIC SET | Routin | 11/15/2011 | | Results for this | | (NA, K, CL, TCO2, | e | 12:13 PM | | procedure are in the | | BUN, CR, GLU, CA) | | PST | | results section. | + +--------+ + + + | PHOSPHORUS, PLASMA | Routin | 11/15/2011 | | Results for this | | | e | 12:13 PM | | procedure are in the | | | | PST | | results section. | + +--------+ + + + | URIC ACID, PLASMA | Routin | 11/15/2011 | | Results for this | | | e | 12:13 PM | | procedure are in the | | | | PST | | results section. | + +--------+ + + + | LDH TOTAL, PLASMA | Routin | 11/15/2011 | | Results for this | | | e | 12:13 PM | | procedure are in the | | | | PST | | results section. | + +--------+ + + + | CAPILLARY BLOOD | Routin | 11/15/2011 | | Results for this | | GLUCOSE (NO CHG), | e | 9:00 AM | | procedure are in the | | POC | | PST | | results section. | + +--------+ + + + | DIFFERENTIAL | Routin | 11/15/2011 | | Results for this | | | e | 6:09 AM | | procedure are in the | | | | PST | | results section. | + +--------+ + + + | CBC, WITH | Routin | 11/15/2011 | | Results for this | | DIFFERENTIAL | e | 6:09 AM | | procedure are in the | | | | PST | | results section. | + +--------+ + + + | COMPLETE METABOLIC | Routin | 11/15/2011 | | Results for this | | SET | e | 6:09 AM | | procedure are in the | | (NA,K,CL,CO2,BUN,CRE | | PST | | results section. | | AT,GLUC,CA,AST,ALT,B | | | | | | CAIN TOTAL,ALK | | | | | | PHOS,ALB,PROT TOTAL) | | | | | + +--------+ + + + | BASIC METABOLIC SET | Routin | 11/15/2011 | | Results for this | | (NA, K, CL, TCO2, | e | 6:09 AM | | procedure are in the | | BUN, CR, GLU, CA) | | PST | | results section. | + +--------+ + + + | PHOSPHORUS, PLASMA | Routin | 11/15/2011 | | Results for this | | | e | 6:09 AM | | procedure are in the | | | | PST | | results section. | + +--------+ + + + | URIC ACID, PLASMA | Routin | 11/15/2011 | | Results for this | | | e | 6:09 AM | | procedure are in the | | | | PST | | results section. | + +--------+ + + + | MAGNESIUM, PLASMA | Routin | 11/15/2011 | | Results for this | | | e | 6:09 AM | | procedure are in the | | | | PST | | results section. | + +--------+ + + + | LDH TOTAL, PLASMA | Routin | 11/15/2011 | | Results for this | | | e | 6:09 AM | | procedure are in the | | | | PST | | results section. | + +--------+ + + + | BASIC METABOLIC SET | Routin | 11/15/2011 | | Results for this | | (NA, K, CL, TCO2, | e | 12:24 AM | | procedure are in the | | BUN, CR, GLU, CA) | | PST | | results section. | + +--------+ + + + | PHOSPHORUS, PLASMA | Routin | 11/15/2011 | | Results for this | | | e | 12:24 AM | | procedure are in the | | | | PST | | results section. | + +--------+ + + + | URIC ACID, PLASMA | Routin | 11/15/2011 | | Results for this | | | e | 12:24 AM | | procedure are in the | | | | PST | | results section. | + +--------+ + + + | LDH TOTAL, PLASMA | Routin | 11/15/2011 | | Results for this | | | e | 12:24 AM | | procedure are in the | | | | PST | | results section. | + +--------+ + + + | CAPILLARY BLOOD | Routin | 11/15/2011 | | Results for this | | GLUCOSE (NO CHG), | e | 12:21 AM | | procedure are in the | | POC | | PST | | results section. | + +--------+ + + + | CAPILLARY BLOOD | Routin | 11/14/2011 | | Results for this | | GLUCOSE (NO CHG), | e | 9:53 PM | | procedure are in the | | POC | | PST | | results section. | + +--------+ + + + | BASIC METABOLIC SET | Routin | 11/14/2011 | | Results for this | | (NA, K, CL, TCO2, | e | 8:02 PM | | procedure are in the | | BUN, CR, GLU, CA) | | PST | | results section. | + +--------+ + + + | PHOSPHORUS, PLASMA | Routin | 11/14/2011 | | Results for this | | | e | 8:02 PM | | procedure are in the | | | | PST | | results section. | + +--------+ + + + | URIC ACID, PLASMA | Routin | 11/14/2011 | | Results for this | | | e | 8:02 PM | | procedure are in the | | | | PST | | results section. | + +--------+ + + + | LDH TOTAL, PLASMA | Routin | 11/14/2011 | | Results for this | | | e | 8:02 PM | | procedure are in the | | | | PST | | results section. | + +--------+ + + + | CAPILLARY BLOOD | Routin | 11/14/2011 | | Results for this | | GLUCOSE (NO CHG), | e | 5:52 PM | | procedure are in the | | POC | | PST | | results section. | + +--------+ + + + | CT CHEST, ABDOMEN | Routin | 11/14/2011 | | Results for this | | AND PELVIS W IV | e | 3:48 PM | | procedure are in the | | CONTRAST | | PST | | results section. | + +--------+ + + + | BASIC METABOLIC SET | Routin | 11/14/2011 | | Results for this | | (NA, K, CL, TCO2, | e | 2:57 PM | | procedure are in the | | BUN, CR, GLU, CA) | | PST | | results section. | + +--------+ + + + | PHOSPHORUS, PLASMA | Routin | 11/14/2011 | | Results for this | | | e | 2:57 PM | | procedure are in the | | | | PST | | results section. | + +--------+ + + + | URIC ACID, PLASMA | Routin | 11/14/2011 | | Results for this | | | e | 2:57 PM | | procedure are in the | | | | PST | | results section. | + +--------+ + + + | LDH TOTAL, PLASMA | Routin | 11/14/2011 | | Results for this | | | e | 2:57 PM | | procedure are in the | | | | PST | | results section. | + +--------+ + + + | X-RAY PORTABLE CHEST | Urgent | 11/14/2011 | | Results for this | | 1 VIEW | | 1:35 PM | | procedure are in the | | | | PST | | results section. | + +--------+ + + + | CAPILLARY BLOOD | Routin | 11/14/2011 | | Results for this | | GLUCOSE (NO CHG), | e | 12:10 PM | | procedure are in the | | POC | | PST | | results section. | + +--------+ + + + | BASIC METABOLIC SET | Routin | 11/14/2011 | | Results for this | | (NA, K, CL, TCO2, | e | 9:59 AM | | procedure are in the | | BUN, CR, GLU, CA) | | PST | | results section. | + +--------+ + + + | PHOSPHORUS, PLASMA | Routin | 11/14/2011 | | Results for this | | | e | 9:59 AM | | procedure are in the | | | | PST | | results section. | + +--------+ + + + | URIC ACID, PLASMA | Routin | 11/14/2011 | | Results for this | | | e | 9:59 AM | | procedure are in the | | | | PST | | results section. | + +--------+ + + + | LDH TOTAL, PLASMA | Routin | 11/14/2011 | | Results for this | | | e | 9:59 AM | | procedure are in the | | | | PST | | results section. | + +--------+ + + + | CAPILLARY BLOOD | Routin | 11/14/2011 | | Results for this | | GLUCOSE (NO CHG), | e | 9:35 AM | | procedure are in the | | POC | | PST | | results section. | + +--------+ + + + | DIFFERENTIAL | Routin | 11/14/2011 | | Results for this | | | e | 6:38 AM | | procedure are in the | | | | PST | | results section. | + +--------+ + + + | CBC, WITH | Routin | 11/14/2011 | | Results for this | | DIFFERENTIAL | e | 6:38 AM | | procedure are in the | | | | PST | | results section. | + +--------+ + + + | COMPLETE METABOLIC | Routin | 11/14/2011 | | Results for this | | SET | e | 6:38 AM | | procedure are in the | | (NA,K,CL,CO2,BUN,CRE | | PST | | results section. | | AT,GLUC,CA,AST,ALT,B | | | | | | CAIN TOTAL,ALK | | | | | | PHOS,ALB,PROT TOTAL) | | | | | + +--------+ + + + | BASIC METABOLIC SET | Routin | 11/14/2011 | | Results for this | | (NA, K, CL, TCO2, | e | 6:38 AM | | procedure are in the | | BUN, CR, GLU, CA) | | PST | | results section. | + +--------+ + + + | PHOSPHORUS, PLASMA | Routin | 11/14/2011 | | Results for this | | | e | 6:38 AM | | procedure are in the | | | | PST | | results section. | + +--------+ + + + | PHOSPHORUS, PLASMA | Routin | 11/14/2011 | | Results for this | | | e | 6:38 AM | | procedure are in the | | | | PST | | results section. | + +--------+ + + + | HEMOGLOBIN A1C, | Routin | 11/14/2011 | | Results for this | | BLOOD | e | 6:38 AM | | procedure are in the | | | | PST | | results section. | + +--------+ + + + | URIC ACID, PLASMA | Routin | 11/14/2011 | | Results for this | | | e | 6:38 AM | | procedure are in the | | | | PST | | results section. | + +--------+ + + + | MAGNESIUM, PLASMA | Routin | 11/14/2011 | | Results for this | | | e | 6:38 AM | | procedure are in the | | | | PST | | results section. | + +--------+ + + + | LDH TOTAL, PLASMA | Routin | 11/14/2011 | | Results for this | | | e | 6:38 AM | | procedure are in the | | | | PST | | results section. | + +--------+ + + + | CAPILLARY BLOOD | Routin | 11/14/2011 | | Results for this | | GLUCOSE (NO CHG), | e | 1:19 AM | | procedure are in the | | POC | | PST | | results section. | + +--------+ + + + | CAPILLARY BLOOD | Routin | 11/14/2011 | | Results for this | | GLUCOSE (NO CHG), | e | 12:11 AM | | procedure are in the | | POC | | PST | | results section. | + +--------+ + + + | CAPILLARY BLOOD | Routin | 11/13/2011 | | Results for this | | GLUCOSE (NO CHG), | e | 10:04 PM | | procedure are in the | | POC | | PST | | results section. | + +--------+ + + + | CAPILLARY BLOOD | Routin | 11/13/2011 | | Results for this | | GLUCOSE (NO CHG), | e | 9:31 PM | | procedure are in the | | POC | | PST | | results section. | + +--------+ + + + | INR | Routin | 11/13/2011 | | Results for this | | | e | 8:10 PM | | procedure are in the | | | | PST | | results section. | + +--------+ + + + | BASIC METABOLIC SET | Routin | 11/13/2011 | | Results for this | | (NA, K, CL, TCO2, | e | 8:10 PM | | procedure are in the | | BUN, CR, GLU, CA) | | PST | | results section. | + +--------+ + + + | PHOSPHORUS, PLASMA | Routin | 11/13/2011 | | Results for this | | | e | 8:10 PM | | procedure are in the | | | | PST | | results section. | + +--------+ + + + | URIC ACID, PLASMA | Routin | 11/13/2011 | | Results for this | | | e | 8:10 PM | | procedure are in the | | | | PST | | results section. | + +--------+ + + + | LDH TOTAL, PLASMA | Routin | 11/13/2011 | | Results for this | | | e | 8:10 PM | | procedure are in the | | | | PST | | results section. | + +--------+ + + + | CAPILLARY BLOOD | Routin | 11/13/2011 | | Results for this | | GLUCOSE (NO CHG), | e | 7:20 PM | | procedure are in the | | POC | | PST | | results section. | + +--------+ + + + | CAPILLARY BLOOD | Routin | 11/13/2011 | | Results for this | | GLUCOSE (NO CHG), | e | 7:02 PM | | procedure are in the | | POC | | PST | | results section. | + +--------+ + + + | CAPILLARY BLOOD | Routin | 11/13/2011 | | Results for this | | GLUCOSE (NO CHG), | e | 6:47 PM | | procedure are in the | | POC | | PST | | results section. | + +--------+ + + + | SUKHJINDER DUBOSE) BY PCR | Routin | 11/13/2011 | | Results for this | | | e | 6:29 PM | | procedure are in the | | | | PST | | results section. | + +--------+ + + + | CAPILLARY BLOOD | Routin | 11/13/2011 | | Results for this | | GLUCOSE (NO CHG), | e | 6:21 PM | | procedure are in the | | POC | | PST | | results section. | + +--------+ + + + documented in this encounter Results PROCEDURE NOTE (12/06/2015 3:57 AM PST)PROCEDURE NOTE (12/06/2015 3:55 AM PST)PROCEDURE N OTE (12/06/2015 3:53 AM PST)PROCEDURE NOTE (12/06/2015 3:43 AM PST)CAPILLARY BLOOD GLUCOSE , POC (12/06/2011 1:00 PM PST) + +---------+ + + + | Component | Value | Ref Range | Performed | Pathologist | | | | | At | Signature | + +---------+ + + + | BLOOD | 100 (H) | 60 - 99 mg/dL | [facility] - | | | GLUCOSE, | | | [facility] | | | POC | | | [facility] | | | | | | OF CARE | | | | | | TESTS | | + +---------+ + + + + + | Specimen | + + | | + + + + + + + | Performing | Address | City/State/Zipcode | Phone Number | | Organization | | | | + + + + + | [facility] | [address] | [place], [place] | | | [facility] | [address] | [phone] | | | TESTS | | | | + + + + + CAPILLARY BLOOD GLUCOSE, POC (12/06/2011 8:04 AM PST) + +---------+ + + + | Component | Value | Ref Range | Performed | Pathologist | | | | | At | Signature | + +---------+ + + + | BLOOD | 102 (H) | 60 - 99 mg/dL | [facility] - | | | GLUCOSE, | | | [facility] | | | POC | | | [facility] | | | | | | OF CARE | | | | | | TESTS | | + +---------+ + + + + + | Specimen | + + | | + + + + + + + | Performing | Address | City/State/Zipcode | Phone Number | | Organization | | | | + + + + + | [facility] | [address] | [place], [place] | | | [facility] | [address] | [phone] | | | TESTS | | | | + + + + + DIFFERENTIAL (12/06/2011 12:09 AM PST) + +---------+ + + + | Component | Value | Ref Range | Performed | Pathologist | | | | | At | Signature | + +---------+ + + + | NEUTROPHIL | 97 (H) | 50 - 70 % | [facility] | | | % | | | DEPARTMENT | | | | | | OF | | | | | | PATHOLOGY | | + +---------+ + + + | LYMPHOCYTE | 3 (L) | 18 - 42 % | [facility] | | | % | | | DEPARTMENT | | | | | | OF | | | | | | PATHOLOGY | | + +---------+ + + + | MONOCYTE % | 0 (L) | 2 - 8 % | [facility] | | | | | | DEPARTMENT | | | | | | OF | | | | | | PATHOLOGY | | + +---------+ + + + | EOS % | 0 (L) | 1 - 3 % | [facility] | | | | | | DEPARTMENT | | | | | | OF | | | | | | PATHOLOGY | | + +---------+ + + + | BASO % | 0 | <3 % | [facility] | | | | | | DEPARTMENT | | | | | | OF | | | | | | PATHOLOGY | | + +---------+ + + + | NEUTROPHIL | 3.0 | 1.8 - 7.7 K/cu | [facility] | | | # | | mm | DEPARTMENT | | | | | | OF | | | | | | PATHOLOGY | | + +---------+ + + + | LYMPHOCYTE | 0.1 (L) | 1.0 - 4.8 K/cu | [facility] | | | # | | mm | DEPARTMENT | | | | | | OF | | | | | | PATHOLOGY | | + +---------+ + + + | MONOCYTE # | 0.0 | <0.9 K/cu mm | [facility] | | | | | | DEPARTMENT | | | | | | OF | | | | | | PATHOLOGY | | + +---------+ + + + | EOS # | 0.0 | <0.6 K/cu mm | [facility] | | | | | | DEPARTMENT | | | | | | OF | | | | | | PATHOLOGY | | + +---------+ + + + | BASO # | 0.0 | <0.3 | [facility] | | | | | | DEPARTMENT | | | | | | OF | | | | | | PATHOLOGY | | + +---------+ + + + + + | Specimen | + + | | + + + + + + + | Performing | Address | City/State/Zipcode | Phone Number | | Organization | | | | + + + + + | [facility] | [address] | [place] [address] | | | PATHOLOGY | [address] | | | + + + + + URIC ACID, PLASMA (12/06/2011 12:09 AM PST) + +-------+ + + + | Component | Value | Ref Range | Performed | Pathologist | | | | | At | Signature | + +-------+ + + + | URIC ACID, | 3.4 | 2.5 - 6.2 mg/dL | [facility] | | | PLASMA | | | DEPARTMENT | | | (LAB) | | | OF | | | | | | PATHOLOGY | | + +-------+ + + + + + | Specimen | + + | Blood - Blood | + + + + + + + | Performing | Address | City/State/Zipcode | Phone Number | | Organization | | | | + + + + + | [facility] DEPARTMENT OF | [id number] | [place] [address] | | | PATHOLOGY | [address] | | | + + + + + LDH TOTAL, PLASMA (12/06/2011 12:09 AM PST) + +-------+ + + + | Component | Value | Ref Range | Performed | Pathologist | | | | | At | Signature | + +-------+ + + + | LD TOTAL, | 180 | 110 - 205 U/L | [facility] | | | PLASMA | | | DEPARTMENT | | | | | | OF | | | | | | PATHOLOGY | | + +-------+ + + + + + | Specimen | + + | Blood - Blood | + + + + + + + | Performing | Address | City/State/Zipcode | Phone Number | | Organization | | | | + + + + + | [facility] | [address] | [place] [address] | | | PATHOLOGY | [address] | | | + + + + + CBC, WITH DIFFERENTIAL (12/06/2011 12:09 AM PST) + + + + + + | Component | Value | Ref Range | Performed | Pathologist | | | | | At | Signature | + + + + + + | WHITE CELL | 3.1 (L) | 4.4 - 11.0 K/cu | [facility] | | | COUNT | | mm | DEPARTMENT | | | | | | OF | | | | | | PATHOLOGY | | + + + + + + | RED CELL | 2.96 (L) | 4.00 - 5.20 | [facility] | | | COUNT | | M/cu mm | DEPARTMENT | | | | | | OF | | | | | | PATHOLOGY | | + + + + + + | HEMOGLOBIN | 8.4 (L) | 12.0 - 16.0 | [facility] | | | | | g/dL | DEPARTMENT | | | | | | OF | | | | | | PATHOLOGY | | + + + + + + | HEMATOCRIT | 24.2 (L) | 36.0 - 46.0 % | [facility] | | | | | | DEPARTMENT | | | | | | OF | | | | | | PATHOLOGY | | + + + + + + | MCV | 81.7 | 80.0 - 96.0 fL | [facility] | | | | | | DEPARTMENT | | | | | | OF | | | | | | PATHOLOGY | | + + + + + + | MCHC | 34.6 | 33.4 - 35.5 | [facility] | | | | | g/dL | DEPARTMENT | | | | | | OF | | | | | | PATHOLOGY | | + + + + + + | RDW | 15.1 (H) | 11.5 - 15.0 % | [facility] | | | | | | DEPARTMENT | | | | | | OF | | | | | | PATHOLOGY | | + + + + + + | PLATELET | 331 | 150 - 400 K/cu | [facility] | | | COUNT | | mm | DEPARTMENT | | | | | | OF | | | | | | PATHOLOGY | | + + + + + + + + | Specimen | + + | Blood - Blood | + + + + + + + | Performing | Address | City/State/Zipcode | Phone Number | | Organization | | | | + + + + + | [facility] | [address] | [place] [address] | | | PATHOLOGY | [address] | | | + + + + + PHOSPHORUS, PLASMA (12/06/2011 12:09 AM PST) + +-------+ + + + | Component | Value | Ref Range | Performed | Pathologist | | | | | At | Signature | + +-------+ + + + | PHOSPHORUS, | 3.3 | 2.4 - 4.7 mg/dL | [facility] | | | PLASMA | | | DEPARTMENT | | | (LAB) | | | OF | | | | | | PATHOLOGY | | + +-------+ + + + + + | Specimen | + + | Blood - Blood | + + + + + + + | Performing | Address | City/State/Zipcode | Phone Number | | Organization | | | | + + + + + | [facility] DEPARTMENT OF | [address] | [place] [address] | | | PATHOLOGY | [address] | | | + + + + + MAGNESIUM, PLASMA (12/06/2011 12:09 AM PST) + +-------+ + + + | Component | Value | Ref Range | Performed | Pathologist | | | | | At | Signature | + +-------+ + + + | MAGNESIUM,P | 1.8 | 1.8 - 2.5 mg/dL | [facility] | | | LASMA | | | DEPARTMENT | | | | | | OF | | | | | | PATHOLOGY | | + +-------+ + + + + + | Specimen | + + | Blood - Blood | + + + + + + + | Performing | Address | City/State/Zipcode | Phone Number | | Organization | | | | + + + + + | [facility] DEPARTMENT | [address] | [place] [address] | | | PATHOLOGY | [address] | | | + + + + + COMPLETE METABOLIC SET (NA,K,CL,CO2,BUN,CREAT,GLUC,CA,AST,ALT,BILI TOTAL,ALK PHOS,ALB,PROT TOTAL) (12/06/2011 12:09 AM PST) + + + + + + | Component | Value | Ref Range | Performed | Pathologist | | | | | At | Signature | + + + + + + | GLUCOSE, | 108 (H) | 60 - 99 mg/dL | [facility] | | | PLASMA | | | DEPARTMENT | | | (LAB) | | | OF | | | | | | PATHOLOGY | | + + + + + + | BUN, PLASMA | 8 | 6 - 20 mg/dL | [facility] | | | (LAB) | | | DEPARTMENT | | | | | | OF | | | | | | PATHOLOGY | | + + + + + + | CREATININE | 0.55 (L) | 0.60 - 1.10 | [facility] | | | PLASMA | | mg/dL | DEPARTMENT | | | (LAB) | | | OF | | | | | | PATHOLOGY | | + + + + + + | TOTAL | 5.2 (L) | 6.1 - 7.9 g/dL | [facility] | | | PROTEIN, | | | DEPARTMENT | | | PLASMA | | | OF | | | (LAB) | | | PATHOLOGY | | + + + + + + | ALBUMIN, | 2.7 (L) | 3.5 - 4.7 g/dL | [facility] | | | PLASMA | | | DEPARTMENT | | | (LAB) | | | OF | | | | | | PATHOLOGY | | + + + + + + | CALCIUM, | 8.0 (L) | 8.6 - 10.2 | [facility] | | | PLASMA | | mg/dL | DEPARTMENT | | | (LAB) | | | OF | | | | | | PATHOLOGY | | + + + + + + | BILIRUBIN | 0.6 | 0.3 - 1.2 mg/dL | [facility] | | | TOTAL | | | DEPARTMENT | | | | | | OF | | | | | | PATHOLOGY | | + + + + + + | ALK PHOS | 106 (H) | 42 - 98 U/L | [facility] | | | | | | DEPARTMENT | | | | | | OF | | | | | | PATHOLOGY | | + + + + + + | AST(SGOT) | 25 | 15 - 41 U/L | [facility] | | | | | | DEPARTMENT | | | | | | OF | | | | | | PATHOLOGY | | + + + + + + | SODIUM, | 138 | 134 - 143 | [facility] | | | PLASMA | | mmol/L | DEPARTMENT | | | (LAB) | | | OF | | | | | | PATHOLOGY | | + + + + + + | POTASSIUM, | 3.1 (L) | 3.4 - 5.0 | [facility] | | | PLASMA | | mmol/L | DEPARTMENT | | | (LAB) | | | OF | | | | | | PATHOLOGY | | + + + + + + | CHLORIDE, | 97 | 97 - 108 mmol/L | [facility] | | | PLASMA | | | DEPARTMENT | | | (LAB) | | | OF | | | | | | PATHOLOGY | | + + + + + + | TOTAL CO2, | 34 (H) | 22 - 29 mmol/L | [facility] | | | PLASMA | | | DEPARTMENT | | | (LAB) | | | OF | | | | | | PATHOLOGY | | + + + + + + | ALT (SGPT) | 71 (H) | 13 - 48 U/L | [facility] | | | | | | DEPARTMENT | | | | | | OF | | | | | | PATHOLOGY | | + + + + + + | ANION GAP | 7 | 4 - 11 mmol/L | [facility] | | | | | | DEPARTMENT | | | | | | OF | | | | | | PATHOLOGY | | + + + + + + | ANION | 10 | 4 - 11 mmol/L | [facility] | | | GAP(ALB | | | DEPARTMENT | | | CORRECTED) | | | OF | | | | | | PATHOLOGY | | + + + + + + + + | Specimen | + + | Blood - Blood | + + + + + + + | Performing | Address | City/State/Zipcode | Phone Number | | Organization | | | | + + + + + | [facility] | [address] | [place] [address] | | | PATHOLOGY | [address] | | | + + + + + METHOTREXATE (12/06/2011 12:09 AM PST) + +-------+ + + + | Component | Value | Ref Range | Performed | Pathologist | | | | | At | Signature | + +-------+ + + + | METHOTREXAT | 0.07 | Variable umol/L | [facility] | | | E | | | REGIONAL | | | CONC[facility]AT[facility] | | | LABORATORY | | | ON | | | | | + +-------+ + + + | SPECIMEN | BLOOD | | [facility] | | | TYPE TOX | BLOOD | | REGIONAL | | | | | | LABORATORY | | + +-------+ + + + + + | Specimen | + + | Blood - Blood | + + + + + | Narrative | Performed At | + + + | General guidelines after high dose therapy: | [facility] | | Methotrexate toxic > 0.1 umol/L Specimens | REGIONAL | | from patients who have received carboxypeptidase G2 as a | LABORATORY | | high dose methotrexate rescue therapy should not be | | | tested with TDx/Methotrexate II assay. These specimens | | | have increased serum levels of metabolite (DAMPA) that | | | cross-reacts with the methotrexate antibody used in the assay. | | | [facility] ([facility]) [facility] | | | [address] [place] [address] | | + + + + + + + + | Performing | Address | City/State/Zipcode | Phone Number | | Organization | | | | + + + + + | [facility] | [address] | [place] [address] | | | LABORATORY | | | | + + + + + CAPILLARY BLOOD GLUCOSE, POC (12/05/2011 9:52 PM PST) + +---------+ + + + | Component | Value | Ref Range | Performed | Pathologist | | | | | At | Signature | + +---------+ + + + | BLOOD | 133 (H) | 60 - 99 mg/dL | [facility] - | | | GLUCOSE, | | | [facility] | | | POC | | | [facility] | | | | | | OF CARE | | | | | | TESTS | | + +---------+ + + + + + | Specimen | + + | | + + + + + + + | Performing | Address | City/State/Zipcode | Phone Number | | Organization | | | | + + + + + | [facility] | [address] | [place], [place] | | | [facility] [place] | [facility] | [address] | | | TESTS | | | | + + + + + CAPILLARY BLOOD GLUCOSE, POC (12/05/2011 4:22 PM PST) + +---------+ + + + | Component | Value | Ref Range | Performed | Pathologist | | | | | At | Signature | + +---------+ + + + | BLOOD | 234 (H) | 60 - 99 mg/dL | [facility] - | | | GLUCOSE, | | | [facility] | | | POC | | | [place] | | | | | | OF CARE | | | | | | TESTS | | + +---------+ + + + + + | Specimen | + + | | + + + + + + + | Performing | Address | City/State/Zipcode | Phone Number | | Organization | | | | + + + + + | [facility] | [address] | [place], [place] | | | [facility] | [facility] | [address] | | | TESTS | | | | + + + + + CAPILLARY BLOOD GLUCOSE, POC (12/05/2011 12:21 PM PST) + +---------+ + + + | Component | Value | Ref Range | Performed | Pathologist | | | | | At | Signature | + +---------+ + + + | BLOOD | 180 (H) | 60 - 99 mg/dL | [facility] - | | | GLUCOSE, | | | [facility] | | | POC | | | [place] | | | | | | OF CARE | | | | | | TESTS | | + +---------+ + + + + + | Specimen | + + | | + + + + + + + | Performing | Address | City/State/Zipcode | Phone Number | | Organization | | | | + + + + + | [facility] | [address] | [place], [place] | | | [facility] | [address] | [address] | | | TESTS | | | | + + + + + UA DIPSTICK ONLY, POC RESULT (12/05/2011 11:34 AM PST) + +-------+ + + + | Component | Value | Ref Range | Performed | Pathologist | | | | | At | Signature | + +-------+ + + + | PH (UA | 8.0 | 5 - 8 | | | | DIP), POC | | | | | + +-------+ + + + CAPILLARY BLOOD GLUCOSE, POC (12/05/2011 8:04 AM PST) + +---------+ + + + | Component | Value | Ref Range | Performed | Pathologist | | | | | At | Signature | + +---------+ + + + | BLOOD | 216 (H) | 60 - 99 mg/dL | [facility] - | | | GLUCOSE, | | | [facility] | | | POC | | | [place] | | | | | | OF CARE | | | | | | TESTS | | + +---------+ + + + + + | Specimen | + + | | + + + + + + + | Performing | Address | City/State/Zipcode | Phone Number | | Organization | | | | + + + + + | [facility] | [address] | [place], [place] | | | [place] [facility] | [address] | [address] | | | TESTS | | | | + + + + + DIFFERENTIAL (12/05/2011 12:10 AM PST) + +---------+ + + + | Component | Value | Ref Range | Performed | Pathologist | | | | | At | Signature | + +---------+ + + + | NEUTROPHIL | 84 (H) | 50 - 70 % | [facility] | | | % | | | DEPARTMENT | | | | | | OF | | | | | | PATHOLOGY | | + +---------+ + + + | LYMPHOCYTE | 7 (L) | 18 - 42 % | [facility] | | | % | | | DEPARTMENT | | | | | | OF | | | | | | PATHOLOGY | | + +---------+ + + + | MONOCYTE % | 9 (H) | 2 - 8 % | [facility] | | | | | | DEPARTMENT | | | | | | OF | | | | | | PATHOLOGY | | + +---------+ + + + | EOS % | 0 (L) | 1 - 3 % | [facility] | | | | | | DEPARTMENT | | | | | | OF | | | | | | PATHOLOGY | | + +---------+ + + + | BASO % | 0 | <3 % | [facility] | | | | | | DEPARTMENT | | | | | | OF | | | | | | PATHOLOGY | | + +---------+ + + + | NEUTROPHIL | 2.2 | 1.8 - 7.7 K/cu | [facility] | | | # | | mm | DEPARTMENT | | | | | | OF | | | | | | PATHOLOGY | | + +---------+ + + + | LYMPHOCYTE | 0.2 (L) | 1.0 - 4.8 K/cu | [facility] | | | # | | mm | DEPARTMENT | | | | | | OF | | | | | | PATHOLOGY | | + +---------+ + + + | MONOCYTE # | 0.2 | <0.9 K/cu mm | [facility] | | | | | | DEPARTMENT | | | | | | OF | | | | | | PATHOLOGY | | + +---------+ + + + | EOS # | 0.0 | <0.6 K/cu mm | [facility] | | | | | | DEPARTMENT | | | | | | OF | | | | | | PATHOLOGY | | + +---------+ + + + | BASO # | 0.0 | <0.3 | [facility] | | | | | | DEPARTMENT | | | | | | OF | | | | | | PATHOLOGY | | + +---------+ + + + + + | Specimen | + + | | + + + + + + + | Performing | Address | City/State/Zipcode | Phone Number | | Organization | | | | + + + + + | [facility] | [address] | [place] [address] | | | PATHOLOGY | [address] | | | + + + + + URIC ACID, PLASMA (12/05/2011 12:10 AM PST) + +-------+ + + + | Component | Value | Ref Range | Performed | Pathologist | | | | | At | Signature | + +-------+ + + + | URIC ACID, | 4.2 | 2.5 - 6.2 mg/dL | [facility] | | | PLASMA | | | DEPARTMENT | | | (LAB) | | | OF | | | | | | PATHOLOGY | | + +-------+ + + + + + | Specimen | + + | Blood - Blood | + + + + + + + | Performing | Address | City/State/Zipcode | Phone Number | | Organization | | | | + + + + + | [facility] DEPARTMENT OF | [address] | [place] [address] | | | PATHOLOGY | [address] | | | + + + + + LDH TOTAL, PLASMA (12/05/2011 12:10 AM PST) + +---------+ + + + | Component | Value | Ref Range | Performed | Pathologist | | | | | At | Signature | + +---------+ + + + | LD TOTAL, | 209 (H) | 110 - 205 U/L | [facility] | | | PLASMA | | | DEPARTMENT | | | | | | OF | | | | | | PATHOLOGY | | + +---------+ + + + + + | Specimen | + + | Blood - Blood | + + + + + + + | Performing | Address | City/State/Zipcode | Phone Number | | Organization | | | | + + + + + | [facility] DE[facility]MENT OF | [address] | [place] [address] | | | PATHOLOGY | [address] | | | + + + + + CBC, WITH DIFFERENTIAL (12/05/2011 12:10 AM PST) + + + + + + | Component | Value | Ref Range | Performed | Pathologist | | | | | At | Signature | + + + + + + | WHITE CELL | 2.6 (L) | 4.4 - 11.0 K/cu | [facility] | | | COUNT | | mm | DEPARTMENT | | | | | | OF | | | | | | PATHOLOGY | | + + + + + + | RED CELL | 2.99 (L) | 4.00 - 5.20 | [facility] | | | COUNT | | M/cu mm | DEPARTMENT | | | | | | OF | | | | | | PATHOLOGY | | + + + + + + | HEMOGLOBIN | 8.2 (L) | 12.0 - 16.0 | [facility] | | | | | g/dL | DEPARTMENT | | | | | | OF | | | | | | PATHOLOGY | | + + + + + + | HEMATOCRIT | 24.2 (L) | 36.0 - 46.0 % | [facility] | | | | | | DEPARTMENT | | | | | | OF | | | | | | PATHOLOGY | | + + + + + + | MCV | 81.1 | 80.0 - 96.0 fL | [facility] | | | | | | DEPARTMENT | | | | | | OF | | | | | | PATHOLOGY | | + + + + + + | MCHC | 33.7 | 33.4 - 35.5 | [facility] | | | | | g/dL | DEPARTMENT | | | | | | OF | | | | | | PATHOLOGY | | + + + + + + | RDW | 15.2 (H) | 11.5 - 15.0 % | [facility] | | | | | | DEPARTMENT | | | | | | OF | | | | | | PATHOLOGY | | + + + + + + | PLATELET | 384 | 150 - 400 K/cu | [facility] | | | COUNT | | mm | DEPARTMENT | | | | | | OF | | | | | | PATHOLOGY | | + + + + + + + + | Specimen | + + | Blood - Blood | + + + + + + + | Performing | Address | City/State/Zipcode | Phone Number | | Organization | | | | + + + + + | [facility] DEPARTMENT OF | [address] | [place] [address] | | | PATHOLOGY | [address] | | | + + + + + PHOSPHORUS, PLASMA (12/05/2011 12:10 AM PST) + +-------+ + + + | Component | Value | Ref Range | Performed | Pathologist | | | | | At | Signature | + +-------+ + + + | PHOSPHORUS, | 3.1 | 2.4 - 4.7 mg/dL | [facility] | | | PLASMA | | | DEPARTMENT | | | (LAB) | | | OF | | | | | | PATHOLOGY | | + +-------+ + + + + + | Specimen | + + | Blood - Blood | + + + + + + + | Performing | Address | City/State/Zipcode | Phone Number | | Organization | | | | + + + + + | [facility] | [address] | [place] [address] | | | PATHOLOGY | [address] | | | + + + + + MAGNESIUM, PLASMA (12/05/2011 12:10 AM PST) + +-------+ + + + | Component | Value | Ref Range | Performed | Pathologist | | | | | At | Signature | + +-------+ + + + | MAGNESIUM,P | 2.0 | 1.8 - 2.5 mg/dL | [facility] | | | LASMA | | | DEPARTMENT | | | | | | OF | | | | | | PATHOLOGY | | + +-------+ + + + + + | Specimen | + + | Blood - Blood | + + + + + + + | Performing | Address | City/State/Zipcode | Phone Number | | Organization | | | | + + + + + | [facility] DEPARTMENT | [address] | [place] [address] | | | PATHOLOGY | [address] | | | + + + + + COMPLETE METABOLIC SET (NA,K,CL,CO2,BUN,CREAT,GLUC,CA,AST,ALT,BILI TOTAL,ALK PHOS,ALB,PROT TOTAL) (12/05/2011 12:10 AM PST) + + + + + + | Component | Value | Ref Range | Performed | Pathologist | | | | | At | Signature | + + + + + + | GLUCOSE, | 155 (H) | 60 - 99 mg/dL | [facility] | | | PLASMA | | | DEPARTMENT | | | (LAB) | | | OF | | | | | | PATHOLOGY | | + + + + + + | BUN, PLASMA | 10 | 6 - 20 mg/dL | [facility] | | | (LAB) | | | DEPARTMENT | | | | | | OF | | | | | | PATHOLOGY | | + + + + + + | CREATININE | 0.56 (L) | 0.60 - 1.10 | [facility] | | | PLASMA | | mg/dL | DEPARTMENT | | | (LAB) | | | OF | | | | | | PATHOLOGY | | + + + + + + | TOTAL | 5.3 (L) | 6.1 - 7.9 g/dL | [facility] | | | PROTEIN, | | | DEPARTMENT | | | PLASMA | | | OF | | | (LAB) | | | PATHOLOGY | | + + + + + + | ALBUMIN, | 2.8 (L) | 3.5 - 4.7 g/dL | [facility] | | | PLASMA | | | DEPARTMENT | | | (LAB) | | | OF | | | | | | PATHOLOGY | | + + + + + + | CALCIUM, | 8.5 (L) | 8.6 - 10.2 | [facility] | | | PLASMA | | mg/dL | DEPARTMENT | | | (LAB) | | | OF | | | | | | PATHOLOGY | | + + + + + + | BILIRUBIN | 0.4 | 0.3 - 1.2 mg/dL | [facility] | | | TOTAL | | | DEPARTMENT | | | | | | OF | | | | | | PATHOLOGY | | + + + + + + | ALK PHOS | 133 (H) | 42 - 98 U/L | [facility] | | | | | | DEPARTMENT | | | | | | OF | | | | | | PATHOLOGY | | + + + + + + | AST(SGOT) | 32 | 15 - 41 U/L | [facility] | | | | | | DEPARTMENT | | | | | | OF | | | | | | PATHOLOGY | | + + + + + + | SODIUM, | 139 | 134 - 143 | [facility] | | | PLASMA | | mmol/L | DEPARTMENT | | | (LAB) | | | OF | | | | | | PATHOLOGY | | + + + + + + | POTASSIUM, | 3.2 (L) | 3.4 - 5.0 | [facility] | | | PLASMA | | mmol/L | DEPARTMENT | | | (LAB) | | | OF | | | | | | PATHOLOGY | | + + + + + + | CHLORIDE, | 96 (L) | 97 - 108 mmol/L | [facility] | | | PLASMA | | | DEPARTMENT | | | (LAB) | | | OF | | | | | | PATHOLOGY | | + + + + + + | TOTAL CO2, | 36 (H) | 22 - 29 mmol/L | [facility] | | | PLASMA | | | DEPARTMENT | | | (LAB) | | | OF | | | | | | PATHOLOGY | | + + + + + + | ALT (SGPT) | 95 (H) | 13 - 48 U/L | [facility] | | | | | | DEPARTMENT | | | | | | OF | | | | | | PATHOLOGY | | + + + + + + | ANION GAP | 7 | 4 - 11 mmol/L | [facility] | | | | | | DEPARTMENT | | | | | | OF | | | | | | PATHOLOGY | | + + + + + + | ANION | 10 | 4 - 11 mmol/L | [facility] | | | GAP(ALB | | | DEPARTMENT | | | CORRECTED) | | | OF | | | | | | PATHOLOGY | | + + + + + + + + | Specimen | + + | Blood - Blood | + + + + + + + | Performing | Address | City/State/Zipcode | Phone Number | | Organization | | | | + + + + + | [facility] DEPARTMENT OF | [address] | [place] [address] | | | PATHOLOGY | [address] | | | + + + + + METHOTREXATE (12/04/2011 11:35 PM PST) + +-------+ + + + | Component | Value | Ref Range | Performed | Pathologist | | | | | At | Signature | + +-------+ + + + | METHOTREXAT | 0.44 | Variable umol/L | [facility] | | | E | | | REGIONAL | | | CONC[facility]ATI | | | LABORATORY | | | ON | | | | | + +-------+ + + + | SPECIMEN | BLOOD | | [facility] | | | TYPE TOX | BLOOD | | REGIONAL | | | | | | LABORATORY | | + +-------+ + + + + + | Specimen | + + | Blood - Blood | + + + + + | Narrative | Performed At | + + + | General guidelines after high dose therapy: | [facility] | | Methotrexate toxic > 0.1 umol/L Specimens | REGIONAL | | from patients who have received carboxypeptidase G2 as a | LABORATORY | | high dose methotrexate rescue therapy should not be | | | tested with TDx/Methotrexate II assay. These specimens | | | have increased serum levels of metabolite (DAMPA) that | | | cross-reacts with the methotrexate antibody used in the assay. | | | [facility] ([facility]) [facility] | | | [address] [place] [address] | | + + + + + + + + | Performing | Address | City/State/Zipcode | Phone Number | | Organization | | | | + + + + + | [facility] | [address] | [place] [address] | | | LABORATORY | | | | + + + + + UA DIPSTICK ONLY, POC RESULT (12/04/2011 11:17 PM PST) + +-------+ + + + | Component | Value | Ref Range | Performed | Pathologist | | | | | At | Signature | + +-------+ + + + | PH (UA | 8.0 | 5 - 8 | | | | DIP), POC | | | | | + +-------+ + + + CAPILLARY BLOOD GLUCOSE, POC (12/04/2011 9:13 PM PST) + +---------+ + + + | Component | Value | Ref Range | Performed | Pathologist | | | | | At | Signature | + +---------+ + + + | BLOOD | 189 (H) | 60 - 99 mg/dL | [facility] - | | | GLUCOSE, | | | [facility] | | | POC | | | [facility] | | | | | | OF CARE | | | | | | TESTS | | + +---------+ + + + + + | Specimen | + + | | + + + + + + + | Performing | Address | City/State/Zipcode | Phone Number | | Organization | | | | + + + + + | [facility] | [address] | [place], [place] | | | [facility] [place] | [address] | [address] | | | TESTS | | | | + + + + + CAPILLARY BLOOD GLUCOSE, POC (12/04/2011 4:28 PM PST) + +---------+ + + + | Component | Value | Ref Range | Performed | Pathologist | | | | | At | Signature | + +---------+ + + + | BLOOD | 197 (H) | 60 - 99 mg/dL | [facility] - | | | GLUCOSE, | | | [facility] | | | POC | | | [facility] | | | | | | OF CARE | | | | | | TESTS | | + +---------+ + + + + + | Specimen | + + | | + + + + + + + | Performing | Address | City/State/Zipcode | Phone Number | | Organization | | | | + + + + + | [facility] | [address] | [place], [place] | | | [place] [facility] | [address] | [phone] | | | TESTS | | | | + + + + + MA DIAGNOSTIC MAMMO BILAT W/CAD (12/04/2011 2:05 PM PST) + + + + + + | Component | Value | Ref Range | Performed | Pathologist | | | | | At | Signature | + + + + + + | MA | Reason for exam: | | | | | DIAGNOSTIC | clinical finding. MA | | | | | MAMMO BILAT | DIGITAL MAMMO DIAG BILAT | | | | | W/CAD | W/CAD: December 04, 2011 | | | | | | - Accession#: | | | | | | [id number] CC and | | | | | | MLO view(s) were | | | | | | taken.The breast tissue | | | | | | is almost entirely fat . | | | | | | No | | | | | | suspiciouscalcifications | | | | | | , masses, or | | | | | | architectural distortion | | | | | | present inthe right | | | | | | breast. On the left | | | | | | there are 2 adjacent | | | | | | nodules n themedial left | | | | | | subareolar region which | | | | | | in conglomerate measure | | | | | | 1.2x 2.7 cm. This | | | | | | corresponds to the | | | | | | nodule seen on CT. An | | | | | | ousidemamogram report | | | | | | from [facility] | | | | | | [facility] | | | | | | date02/15/2001 describes | | | | | | "two abutting, well | | | | | | defined nodular | | | | | | densitieswith a dumbell | | | | | | configuration" in the | | | | | | same location. | | | | | | Inaddition, the | | | | | | patient states she has | | | | | | palpated this nodule | | | | | | formany years and was | | | | | | most aware of it when | | | | | | she was | | | | | | .This is | | | | | | almost certainly benign | | | | | | given the benign | | | | | | mammographicappearance | | | | | | and evidence of | | | | | | stability on imaging for | | | | | | at least 10years. The | | | | | | outside images will be | | | | | | ordered and compared | | | | | | oncereceived. The images | | | | | | were obtained using | | | | | | full field digital | | | | | | mammography onthe | | | | | | dedicated Hologic System | | | | | | with R2 CAD. Performed | | | | | | at [facility] and | | | | | | [facility]. | | | | | | ASSESSMENT: Incomplete: | | | | | | Need additional | | | | | | imagingevaluation-Compar | | | | | | cheryl with prior studies | | | | | | RECOMMENDATION:Obtain | | | | | | prior study for | | | | | | comparison. Left | | | | | | breast subareolarnodules | | | | | | have benign | | | | | | mammographic features | | | | | | and per | | | | | | outsidemammogram reports | | | | | | have been present for | | | | | | at least 10 years; | | | | | | perthe patient the | | | | | | nodules have been | | | | | | present and palpable for | | | | | | manyyears and were | | | | | | first noticed when she | | | | | | was . | | | | | | Theyare almost | | | | | | certainly benign. The | | | | | | outside films are not | | | | | | availableat the time of | | | | | | this exam and have been | | | | | | ordered. An | | | | | | addendedreport will be | | | | | | issued once the outside | | | | | | films are recieved | | | | | | andcompared with today's | | | | | | exam. This was | | | | | | discussed with the | | | | | | patient. Attending | | | | | | Radiologists: RENETTA | | | | | | Clint HAQAuthor: RENETTA | | | | | | Clint HAQ I have | | | | | | personally viewed this | | | | | | procedure/exam, reviewed | | | | | | this report,and made | | | | | | changes to it where | | | | | | appropriate. | | | | | | Final/Electronically | | | | | | signed / RENETTA HAQ | | | | | | 12/04/2011 15:06 PM | | | | + + + + + + + + | Specimen | + + | | + + + +---------+ + + | Performing | Address | City/State/Zipcode | Phone Number | | Organization | | | | + +---------+ + + | [facility] DEPARTMENT OF | | | | | RADIOLOGY | | | | + +---------+ + + CAPILLARY BLOOD GLUCOSE, POC (12/04/2011 12:29 PM PST) + +---------+ + + + | Component | Value | Ref Range | Performed | Pathologist | | | | | At | Signature | + +---------+ + + + | BLOOD | 255 (H) | 60 - 99 mg/dL | [facility] - | | | GLUCOSE, | | | [facility] | | | POC | | | [facility] | | | | | | OF CARE | | | | | | TESTS | | + +---------+ + + + + + | Specimen | + + | | + + + + + + + | Performing | Address | City/State/Zipcode | Phone Number | | Organization | | | | + + + + + | [facility] | [address] | [place], [place] | | | [facility] [place] | [facility] | [address] | | | TESTS | | | | + + + + + SUKHJINDER (KATLYN) BY PCR (12/04/2011 12:26 PM PST) + + + + + + | Component | Value | Ref Range | Performed | Pathologist | | | | | At | Signature | + + + + + + | VRE BY PCR | Negative for Katlyn gene | | [facility] | | | | VRE | | DEPARTMENT | | | | | | OF | | | | | | PATHOLOGY | | + + + + + + + + | Specimen | + + | Swab - Rectum | + + + + + + + | Performing | Address | City/State/Zipcode | Phone Number | | Organization | | | | + + + + + | [facility]PARTMENT [facility] | [address] | [place] [address] | | | PATHOLOGY | [address] | | | + + + + + VRE (KATLYN) BY PCR (12/04/2011 8:37 AM PST) + + + + + + | Component | Value | Ref Range | Performed | Pathologist | | | | | At | Signature | + + + + + + | VRE BY PCR | Indeterminate | | [facility] | | | | result,suggest repeat | | DEPARTMENT | | | | specimen. (A) | | OF | | | | | | PATHOLOGY | | + + + + + + + + | Specimen | + + | Swab - Rectum | + + + + + | Narrative | Performed At | + + + | INDETERMINATE Phoned TO PAULO SHERLYN IN 14K @ 10:07; RECOMMENDED | [facility] | | PERFORMING A TRUE RECTAL SWAB FOR THE PROCEDURE, RATHER THAN SIMPLY A | DEPARTMENT OF | | SWAB DIPPED IN STOOL | PATHOLOGY | + + + + + + + + | Performing | Address | City/State/Zipcode | Phone Number | | Organization | | | | + + + + + | [facility] | [address] | [place] [address] | | | PATHOLOGY | [address] | | | + + + + + CAPILLARY BLOOD GLUCOSE, POC (12/04/2011 7:40 AM PST) + +---------+ + + + | Component | Value | Ref Range | Performed | Pathologist | | | | | At | Signature | + +---------+ + + + | BLOOD | 180 (H) | 60 - 99 mg/dL | [facility] - | | | GLUCOSE, | | | [facility] | | | POC | | | [facility] | | | | | | OF CARE | | | | | | TESTS | | + +---------+ + + + + + | Specimen | + + | | + + + + + + + | Performing | Address | City/State/Zipcode | Phone Number | | Organization | | | | + + + + + | [facility] | [address] | [place], [place] | | | [facility] [place] | [facility] | [address] | | | TESTS | | | | + + + + + DIFFERENTIAL (12/04/2011 12:25 AM PST) + +---------+ + + + | Component | Value | Ref Range | Performed | Pathologist | | | | | At | Signature | + +---------+ + + + | NEUTROPHIL | 85 (H) | 50 - 70 % | [facility] | | | % | | | DEPARTMENT | | | | | | OF | | | | | | PATHOLOGY | | + +---------+ + + + | LYMPHOCYTE | 6 (L) | 18 - 42 % | [facility] | | | % | | | DEPARTMENT | | | | | | OF | | | | | | PATHOLOGY | | + +---------+ + + + | MONOCYTE % | 9 (H) | 2 - 8 % | [facility] | | | | | | DEPARTMENT | | | | | | OF | | | | | | PATHOLOGY | | + +---------+ + + + | EOS % | 0 (L) | 1 - 3 % | [facility] | | | | | | DEPARTMENT | | | | | | OF | | | | | | PATHOLOGY | | + +---------+ + + + | BASO % | 0 | <3 % | [facility] | | | | | | DEPARTMENT | | | | | | OF | | | | | | PATHOLOGY | | + +---------+ + + + | NEUTROPHIL | 5.0 | 1.8 - 7.7 K/cu | [facility] | | | # | | mm | DEPARTMENT | | | | | | OF | | | | | | PATHOLOGY | | + +---------+ + + + | LYMPHOCYTE | 0.3 (L) | 1.0 - 4.8 K/cu | [facility] | | | # | | mm | DEPARTMENT | | | | | | OF | | | | | | PATHOLOGY | | + +---------+ + + + | MONOCYTE # | 0.5 | <0.9 K/cu mm | [facility] | | | | | | DEPARTMENT | | | | | | OF | | | | | | PATHOLOGY | | + +---------+ + + + | EOS # | 0.0 | <0.6 K/cu mm | [facility] | | | | | | DEPARTMENT | | | | | | OF | | | | | | PATHOLOGY | | + +---------+ + + + | BASO # | 0.0 | <0.3 | [facility] | | | | | | DEPARTMENT | | | | | | OF | | | | | | PATHOLOGY | | + +---------+ + + + + + | Specimen | + + | | + + + + + | Narrative | Performed At | + + + | * Corrected 12/04/11 01:40: HPANEL COMMENTS, prev report: Slide | [facility] | | review pending. | DEPARTMENT OF | | | PATHOLOGY | + + + + + + + + | Performing | Address | City/State/Zipcode | Phone Number | | Organization | | | | + + + + + | [facility] DEPARTMENT OF | [address] | [place] [address] | | | PATHOLOGY | [address] | | | + + + + + URIC ACID, PLASMA (12/04/2011 12:25 AM PST) + +-------+ + + + | Component | Value | Ref Range | Performed | Pathologist | | | | | At | Signature | + +-------+ + + + | URIC ACID, | 3.1 | 2.5 - 6.2 mg/dL | [facility] | | | PLASMA | | | DEPARTMENT | | | (LAB) | | | OF | | | | | | PATHOLOGY | | + +-------+ + + + + + | Specimen | + + | Blood - Blood | + + + + + + + | Performing | Address | City/State/Zipcode | Phone Number | | Organization | | | | + + + + + | [facility] DEPARTMENT OF | [address] | [place] [address] | | | PATHOLOGY | [address] | | | + + + + + LDH TOTAL, PLASMA (12/04/2011 12:25 AM PST) + +---------+ + + + | Component | Value | Ref Range | Performed | Pathologist | | | | | At | Signature | + +---------+ + + + | LD TOTAL, | 256 (H) | 110 - 205 U/L | [facility] | | | PLASMA | | | DEPARTMENT | | | | | | OF | | | | | | PATHOLOGY | | + +---------+ + + + + + | Specimen | + + | Blood - Blood | + + + + + + + | Performing | Address | City/State/Zipcode | Phone Number | | Organization | | | | + + + + + | [facility] DEPARTMENT OF | [address] | [place] [address] | | | PATHOLOGY | [address] | | | + + + + + CBC, WITH DIFFERENTIAL (12/04/2011 12:25 AM PST) + + + + + + | Component | Value | Ref Range | Performed | Pathologist | | | | | At | Signature | + + + + + + | WHITE CELL | 5.9 | 4.4 - 11.0 K/cu | [facility] | | | COUNT | | mm | DEPARTMENT | | | | | | OF | | | | | | PATHOLOGY | | + + + + + + | RED CELL | 3.14 (L) | 4.00 - 5.20 | [facility] | | | COUNT | | M/cu mm | DEPARTMENT | | | | | | OF | | | | | | PATHOLOGY | | + + + + + + | HEMOGLOBIN | 8.7 (L) | 12.0 - 16.0 | [facility] | | | | | g/dL | DEPARTMENT | | | | | | OF | | | | | | PATHOLOGY | | + + + + + + | HEMATOCRIT | 25.6 (L) | 36.0 - 46.0 % | [facility] | | | | | | DEPARTMENT | | | | | | OF | | | | | | PATHOLOGY | | + + + + + + | MCV | 81.5 | 80.0 - 96.0 fL | [facility] | | | | | | DEPARTMENT | | | | | | OF | | | | | | PATHOLOGY | | + + + + + + | MCHC | 33.8 | 33.4 - 35.5 | [facility] | | | | | g/dL | DEPARTMENT | | | | | | OF | | | | | | PATHOLOGY | | + + + + + + | RDW | 15.0 | 11.5 - 15.0 % | [facility] | | | | | | DEPARTMENT | | | | | | OF | | | | | | PATHOLOGY | | + + + + + + | PLATELET | 326 | 150 - 400 K/cu | [facility] | | | COUNT | | mm | DEPARTMENT | | | | | | OF | | | | | | PATHOLOGY | | + + + + + + | CBC | Final automated | | [facility] | | | COMMENTS | differential report. | | DEPARTMENT | | | | Smear reviewed. | | OF | | | | | | PATHOLOGY | | + + + + + + | DIFF | <or= 10% bands seen on | | [facility] | | | COMMENTS | scan. | | DEPARTMENT | | | | | | OF | | | | | | PATHOLOGY | | + + + + + + + + | Specimen | + + | Blood - Blood | + + + + + | Narrative | Performed At | + + + | * Corrected 12/04/11 01:40: HILARIO COMMENTS, prev report: Slide | [facility] | | review pending. | DEPARTMENT OF | | | PATHOLOGY | + + + + + + + + | Performing | Address | City/State/Zipcode | Phone Number | | Organization | | | | + + + + + | [facility] | [address] | [place] [address] | | | PATHOLOGY | [address] | | | + + + + + PHOSPHORUS, PLASMA (12/04/2011 12:25 AM PST) + +-------+ + + + | Component | Value | Ref Range | Performed | Pathologist | | | | | At | Signature | + +-------+ + + + | PHOSPHORUS, | 2.4 | 2.4 - 4.7 mg/dL | [facility] | | | PLASMA | | | DEPARTMENT | | | (LAB) | | | OF | | | | | | PATHOLOGY | | + +-------+ + + + + + | Specimen | + + | Blood - Blood | + + + + + + + | Performing | Address | City/State/Zipcode | Phone Number | | Organization | | | | + + + + + | [facility] DEPARTMENT OF | [address] | [place] [address] | | | PATHOLOGY | [address] | | | + + + + + MAGNESIUM, PLASMA (12/04/2011 12:25 AM PST) + +-------+ + + + | Component | Value | Ref Range | Performed | Pathologist | | | | | At | Signature | + +-------+ + + + | MAGNESIUM,P | 1.9 | 1.8 - 2.5 mg/dL | [facility] | | | LASMA | | | DEPARTMENT | | | | | | OF | | | | | | PATHOLOGY | | + +-------+ + + + + + | Specimen | + + | Blood - Blood | + + + + + + + | Performing | Address | City/State/Zipcode | Phone Number | | Organization | | | | + + + + + | [facility] DEPARTMENT | [address] | [place] [address] | | | PATHOLOGY | [address] | | | + + + + + COMPLETE METABOLIC SET (NA,K,CL,CO2,BUN,CREAT,GLUC,CA,AST,ALT,BILI TOTAL,ALK PHOS,ALB,PROT TOTAL) (12/04/2011 12:25 AM PST) + + + + + + | Component | Value | Ref Range | Performed | Pathologist | | | | | At | Signature | + + + + + + | GLUCOSE, | 170 (H) | 60 - 99 mg/dL | [facility] | | | PLASMA | | | DEPARTMENT | | | (LAB) | | | OF | | | | | | PATHOLOGY | | + + + + + + | BUN, PLASMA | 6 | 6 - 20 mg/dL | [facility] | | | (LAB) | | | DEPARTMENT | | | | | | OF | | | | | | PATHOLOGY | | + + + + + + | CREATININE | 0.59 (L) | 0.60 - 1.10 | [facility] | | | PLASMA | | mg/dL | DEPARTMENT | | | (LAB) | | | OF | | | | | | PATHOLOGY | | + + + + + + | TOTAL | 5.4 (L) | 6.1 - 7.9 g/dL | [facility] | | | PROTEIN, | | | DEPARTMENT | | | PLASMA | | | OF | | | (LAB) | | | PATHOLOGY | | + + + + + + | ALBUMIN, | 2.9 (L) | 3.5 - 4.7 g/dL | [facility] | | | PLASMA | | | DEPARTMENT | | | (LAB) | | | OF | | | | | | PATHOLOGY | | + + + + + + | CALCIUM, | 8.4 (L) | 8.6 - 10.2 | [facility] | | | PLASMA | | mg/dL | DEPARTMENT | | | (LAB) | | | OF | | | | | | PATHOLOGY | | + + + + + + | BILIRUBIN | 0.6 | 0.3 - 1.2 mg/dL | [facility] | | | TOTAL | | | DEPARTMENT | | | | | | OF | | | | | | PATHOLOGY | | + + + + + + | ALK PHOS | 144 (H) | 42 - 98 U/L | [facility] | | | | | | DEPARTMENT | | | | | | OF | | | | | | PATHOLOGY | | + + + + + + | AST(SGOT) | 47 (H) | 15 - 41 U/L | [facility] | | | | | | DEPARTMENT | | | | | | OF | | | | | | PATHOLOGY | | + + + + + + | SODIUM, | 139 | 134 - 143 | [facility] | | | PLASMA | | mmol/L | DEPARTMENT | | | (LAB) | | | OF | | | | | | PATHOLOGY | | + + + + + + | POTASSIUM, | 3.7 | 3.4 - 5.0 | [facility] | | | PLASMA | | mmol/L | DEPARTMENT | | | (LAB) | | | OF | | | | | | PATHOLOGY | | + + + + + + | CHLORIDE, | 98 | 97 - 108 mmol/L | [facility] | | | PLASMA | | | DEPARTMENT | | | (LAB) | | | OF | | | | | | PATHOLOGY | | + + + + + + | TOTAL CO2, | 33 (H) | 22 - 29 mmol/L | [facility] | | | PLASMA | | | DEPARTMENT | | | (LAB) | | | OF | | | | | | PATHOLOGY | | + + + + + + | ALT (SGPT) | 94 (H) | 13 - 48 U/L | [facility] | | | | | | DEPARTMENT | | | | | | OF | | | | | | PATHOLOGY | | + + + + + + | ANION GAP | 8 | 4 - 11 mmol/L | [facility] | | | | | | DEPARTMENT | | | | | | OF | | | | | | PATHOLOGY | | + + + + + + | ANION | 10 | 4 - 11 mmol/L | [facility] | | | GAP(ALB | | | DEPARTMENT | | | CORRECTED) | | | OF | | | | | | PATHOLOGY | | + + + + + + + + | Specimen | + + | Blood - Blood | + + + + + + + | Performing | Address | City/State/Zipcode | Phone Number | | Organization | | | | + + + + + | [facility] | [address] | [place] [address] | | | PATHOLOGY | [address] | | | + + + + + RADIOLOGY (12/04/2011 12:00 AM PST) + + + | Narrative | Performed At | + + + | | | + + + + + | Transcriptions | + + | Jose M Orantes - 12/29/2011 10:28 AM PST | + + METHOTREXATE (12/03/2011 10:53 PM PST) + +-------+ + + + | Component | Value | Ref Range | Performed | Pathologist | | | | | At | Signature | + +-------+ + + + | METHOTREXAT | 13.60 | Variable umol/L | [facility] | | | E | | | REGIONAL | | | [facility]AT[facility] | | | LABORATORY | | | ON | | | | | + +-------+ + + + | SPECIMEN | BLOOD | | [facility] | | | TYPE TOX | BLOOD | | REGIONAL | | | | | | LABORATORY | | + +-------+ + + + + + | Specimen | + + | Blood - Blood | + + + + + | Narrative | Performed At | + + + | General guidelines after high dose therapy: | [facility] | | Methotrexate toxic > 0.1 umol/L Specimens | REGIONAL | | from patients who have received carboxypeptidase G2 as a | LABORATORY | | high dose methotrexate rescue therapy should not be | | | tested with TDx/Methotrexate II assay. These specimens | | | have increased serum levels of metabolite (DAMPA) that | | | cross-reacts with the methotrexate antibody used in the assay. | | | [facility] ([employer] [facility]) [facility] | | | [address] [place] [address] | | + + + + + + + + | Performing | Address | City/State/Zipcode | Phone Number | | Organization | | | | + + + + + | [facility] | [address] | [place] [address] | | | LABORATORY | | | | + + + + + CAPILLARY BLOOD GLUCOSE, POC (12/03/2011 9:52 PM PST) + +---------+ + + + | Component | Value | Ref Range | Performed | Pathologist | | | | | At | Signature | + +---------+ + + + | BLOOD | 155 (H) | 60 - 99 mg/dL | [facility] - | | | GLUCOSE, | | | [facility] | | | POC | | | [facility] | | | | | | OF CARE | | | | | | TESTS | | + +---------+ + + + + + | Specimen | + + | | + + + + + + + | Performing | Address | City/State/Zipcode | Phone Number | | Organization | | | | + + + + + | [facility] | [address] | [place], [place] | | | [facility] | [address] | [address] | | | TESTS | | | | + + + + + UA DIPSTICK ONLY, POC RESULT (12/03/2011 8:46 PM PST) + +-------+ + + + | Component | Value | Ref Range | Performed | Pathologist | | | | | At | Signature | + +-------+ + + + | PH (UA | 7.5 | 5 - 8 | | | | DIP), POC | | | | | + +-------+ + + + CAPILLARY BLOOD GLUCOSE, POC (12/03/2011 5:45 PM PST) + +---------+ + + + | Component | Value | Ref Range | Performed | Pathologist | | | | | At | Signature | + +---------+ + + + | BLOOD | 169 (H) | 60 - 99 mg/dL | [facility] - | | | GLUCOSE, | | | [facility] | | | POC | | | [facility] | | | | | | OF CARE | | | | | | TESTS | | + +---------+ + + + + + | Specimen | + + | | + + + + + + + | Performing | Address | City/State/Zipcode | Phone Number | | Organization | | | | + + + + + | [facility] | [address] | [place], [place] | | | [facility] | [address] | [address] | | | TESTS | | | | + + + + + CSF INFO PANEL (12/03/2011 12:06 PM PST) + + + + + + | Component | Value | Ref Range | Performed | Pathologist | | | | | At | Signature | + + + + + + | CSF | Clear | Clear | [facility] | | | APPEARANCE | | | DEPARTMENT | | | | | | OF | | | | | | PATHOLOGY | | + + + + + + | CSF TUBE | Other | | [facility] | | | NUMBER | | | DEPARTMENT | | | | | | OF | | | | | | PATHOLOGY | | + + + + + + | CSF COLOR | Colorless | Colorless | [facility] | | | | | | DEPARTMENT | | | | | | OF | | | | | | PATHOLOGY | | + + + + + + + + | Specimen | + + | | + + + + + + + | Performing | Address | City/State/Zipcode | Phone Number | | Organization | | | | + + + + + | [facility] DEPARTMENT OF | [address] | [place] [address] | | | PATHOLOGY | [address] | | | + + + + + PROTEIN, CSF (12/03/2011 12:06 PM PST) + +--------+ + + + | Component | Value | Ref Range | Performed | Pathologist | | | | | At | Signature | + +--------+ + + + | TOTAL | 46 (H) | 15 - 45 mg/dL | [facility] | | | PROTEIN CSF | | | DEPARTMENT | | | | | | OF | | | | | | PATHOLOGY | | + +--------+ + + + + + | Specimen | + + | Cerebrospinal fluid | | - Cerebrospinal | | fluid | + + + + + + + | Performing | Address | City/State/Zipcode | Phone Number | | Organization | | | | + + + + + | [facility] DEPARTMENT OF | [address] | [place] [address] | | | PATHOLOGY | [address] | | | + + + + + LDH, CSF (12/03/2011 12:06 PM PST) + +-------+ + + + | Component | Value | Ref Range | Performed | Pathologist | | | | | At | Signature | + +-------+ + + + | LDH CSF | 28 | <40 U/L | [facility] | | | | | | DEPARTMENT | | | | | | OF | | | | | | PATHOLOGY | | + +-------+ + + + + + | Specimen | + + | Cerebrospinal fluid | | - Cerebrospinal | | fluid | + + + + + + + | Performing | Address | City/State/Zipcode | Phone Number | | Organization | | | | + + + + + | [facility] | [address] | [place] [address] | | | PATHOLOGY | [address] | | | + + + + + GLUCOSE, CSF (12/03/2011 12:06 PM PST) + +---------+ + + + | Component | Value | Ref Range | Performed | Pathologist | | | | | At | Signature | + +---------+ + + + | GLUCOSE CSF | 126 (H) | 40 - 70 mg/dL | [facility] | | | | | | DEPARTMENT | | | | | | OF | | | | | | PATHOLOGY | | + +---------+ + + + + + | Specimen | + + | Cerebrospinal fluid | | - Cerebrospinal | | fluid | + + + + + + + | Performing | Address | City/State/Zipcode | Phone Number | | Organization | | | | + + + + + | [facility] DEPARTMENT | [address] | [place] [phone] | | | PATHOLOGY | [address] | | | + + + + + CELL COUNT DIFF, CSF (12/03/2011 12:06 PM PST) + +-------+ + + + | Component | Value | Ref Range | Performed | Pathologist | | | | | At | Signature | + +-------+ + + + | CSF WBC | 2 | <6 /cu mm | [facility] | | | | | | DEPARTMENT | | | | | | OF | | | | | | PATHOLOGY | | + +-------+ + + + | CSF RBC | < 1 | /cu mm | [facility] | | | | | | DEPARTMENT | | | | | | OF | | | | | | PATHOLOGY | | + +-------+ + + + | DIFFERENTIA | 62 | | [facility] | | | L CSF | | | DEPARTMENT | | | | | | OF | | | | | | PATHOLOGY | | + +-------+ + + + | LYMPHOCYTES | 61 | 40 - 80 % | [facility] | | | (CSF) | | | DEPARTMENT | | | | | | OF | | | | | | PATHOLOGY | | + +-------+ + + + | MONOCYTES(C | 34 | 15 - 45 % | [facility] | | | SF) | | | DEPARTMENT | | | | | | OF | | | | | | PATHOLOGY | | + +-------+ + + + | MACROPHAGES | 5 | % | [facility] | | | (CSF) | | | DEPARTMENT | | | | | | OF | | | | | | PATHOLOGY | | + +-------+ + + + + + | Specimen | + + | Cerebrospinal fluid | | - Cerebrospinal | | fluid | + + + + + + + | Performing | Address | City/State/Zipcode | Phone Number | | Organization | | | | + + + + + | [facility] DEPARTMENT | [address] | [place] [address] | | | PATHOLOGY | [address] | | | + + + + + CAPILLARY BLOOD GLUCOSE, POC (12/03/2011 10:19 AM PST) + +---------+ + + + | Component | Value | Ref Range | Performed | Pathologist | | | | | At | Signature | + +---------+ + + + | BLOOD | 249 (H) | 60 - 99 mg/dL | [facility] - | | | GLUCOSE, | | | [facility] | | | POC | | | [facility] | | | | | | OF CARE | | | | | | TESTS | | + +---------+ + + + + + | Specimen | + + | | + + + + + + + | Performing | Address | City/State/Zipcode | Phone Number | | Organization | | | | + + + + + | [facility] | [address] | [place], [place] | | | [facility] | [address] | [address] | | | TESTS | | | | + + + + + MATT DIPSTICK ONLY, POC RESULT (12/03/2011 8:06 AM PST) + +-------+ + + + | Component | Value | Ref Range | Performed | Pathologist | | | | | At | Signature | + +-------+ + + + | PH (UA | 7.5 | 5 - 8 | | | | DIP), POC | | | | | + +-------+ + + + UA DIPSTICK ONLY, POC RESULT (12/03/2011 6:27 AM PST) + +-------+ + + + | Component | Value | Ref Range | Performed | Pathologist | | | | | At | Signature | + +-------+ + + + | PH (UA | 7.0 | 5 - 8 | | | | DIP), POC | | | | | + +-------+ + + + UA DIPSTICK ONLY, POC RESULT (12/03/2011 3:53 AM PST) + +-------+ + + + | Component | Value | Ref Range | Performed | Pathologist | | | | | At | Signature | + +-------+ + + + | PH (UA | 7.5 | 5 - 8 | | | | DIP), POC | | | | | + +-------+ + + + EXTENDED DIFF (12/03/2011 12:37 AM PST) + +---------+ + + + | Component | Value | Ref Range | Performed | Pathologist | | | | | At | Signature | + +---------+ + + + | METAMYELOCY | 8 | % | [facility] | | | MICHEAL % | | | DEPARTMENT | | | | | | OF | | | | | | PATHOLOGY | | + +---------+ + + + | MYELOCYTES | 2 | % | [facility] | | | % | | | DEPARTMENT | | | | | | OF | | | | | | PATHOLOGY | | + +---------+ + + + | NRBC | 0 | <1 /100 WBC | [facility] | | | | | | DEPARTMENT | | | | | | OF | | | | | | PATHOLOGY | | + +---------+ + + + | BANDS # | 1.5 (H) | 0.0 - 1.1 | [facility] | | | | | | DEPARTMENT | | | | | | OF | | | | | | PATHOLOGY | | + +---------+ + + + | BANDS % | 25 (H) | <11 % | [facility] | | | | | | DEPARTMENT | | | | | | OF | | | | | | PATHOLOGY | | + +---------+ + + + | ATYPICAL | 0 | | [facility] | | | CELL % | | | DEPARTMENT | | | | | | OF | | | | | | PATHOLOGY | | + +---------+ + + + | PROMYELOCYT | 0 | % | [facility] | | | ES % | | | DEPARTMENT | | | | | | OF | | | | | | PATHOLOGY | | + +---------+ + + + + + | Specimen | + + | | + + + + + | Narrative | Performed At | + + + | * Corrected 12/03/11 03:53: HILARIO COMMENTS, prev report: Slide | [facility] | | review pending. | DEPARTMENT OF | | | PATHOLOGY | + + + + + + + + | Performing | Address | City/State/Zipcode | Phone Number | | Organization | | | | + + + + + | [facility] | [address] | [place] [address] | | | PATHOLOGY | [address] | | | + + + + + DIFFERENTIAL (12/03/2011 12:37 AM PST) + +---------+ + + + | Component | Value | Ref Range | Performed | Pathologist | | | | | At | Signature | + +---------+ + + + | NEUTROPHIL | 57 | 50 - 70 % | [facility] | | | % | | | DEPARTMENT | | | | | | OF | | | | | | PATHOLOGY | | + +---------+ + + + | LYMPHOCYTE | 6 (L) | 18 - 42 % | [facility] | | | % | | | DEPARTMENT | | | | | | OF | | | | | | PATHOLOGY | | + +---------+ + + + | MONOCYTE % | 2 | 2 - 8 % | [facility] | | | | | | DEPARTMENT | | | | | | OF | | | | | | PATHOLOGY | | + +---------+ + + + | EOS % | 0 (L) | 1 - 3 % | [facility] | | | | | | DEPARTMENT | | | | | | OF | | | | | | PATHOLOGY | | + +---------+ + + + | BASO % | 0 | <3 % | [facility] | | | | | | DEPARTMENT | | | | | | OF | | | | | | PATHOLOGY | | + +---------+ + + + | NEUTROPHIL | 3.5 | 1.8 - 7.7 K/cu | [facility] | | | # | | mm | DEPARTMENT | | | | | | OF | | | | | | PATHOLOGY | | + +---------+ + + + | LYMPHOCYTE | 0.4 (L) | 1.0 - 4.8 K/cu | [facility] | | | # | | mm | DEPARTMENT | | | | | | OF | | | | | | PATHOLOGY | | + +---------+ + + + | MONOCYTE # | 0.1 | <0.9 K/cu mm | [facility] | | | | | | DEPARTMENT | | | | | | OF | | | | | | PATHOLOGY | | + +---------+ + + + | EOS # | 0.0 | <0.6 K/cu mm | [facility] | | | | | | DEPARTMENT | | | | | | OF | | | | | | PATHOLOGY | | + +---------+ + + + | BASO # | 0.0 | <0.3 | [facility] | | | | | | DEPARTMENT | | | | | | OF | | | | | | PATHOLOGY | | + +---------+ + + + + + | Specimen | + + | | + + + + + | Narrative | Performed At | + + + | * Corrected 12/03/11 03:53: HILARIO COMMENTS, prev report: Slide | [facility] | | review pending. | DEPARTMENT OF | | | PATHOLOGY | + + + + + + + + | Performing | Address | City/State/Zipcode | Phone Number | | Organization | | | | + + + + + | [facility] DEPARTMENT OF | [phone] | [place] [address] | | | PATHOLOGY | [address] | | | + + + + + URIC ACID, PLASMA (12/03/2011 12:37 AM PST) + +-------+ + + + | Component | Value | Ref Range | Performed | Pathologist | | | | | At | Signature | + +-------+ + + + | URIC ACID, | 2.7 | 2.5 - 6.2 mg/dL | [facility] | | | PLASMA | | | DEPARTMENT | | | (LAB) | | | OF | | | | | | PATHOLOGY | | + +-------+ + + + + + | Specimen | + + | Blood - Blood | + + + + + + + | Performing | Address | City/State/Zipcode | Phone Number | | Organization | | | | + + + + + | [facility] | [phone] | [place] [address] | | | PATHOLOGY | [address] | | | + + + + + LDH TOTAL, PLASMA (12/03/2011 12:37 AM PST) + +---------+ + + + | Component | Value | Ref Range | Performed | Pathologist | | | | | At | Signature | + +---------+ + + + | LD TOTAL, | 209 (H) | 110 - 205 U/L | [facility] | | | PLASMA | | | DEPARTMENT | | | | | | OF | | | | | | PATHOLOGY | | + +---------+ + + + + + | Specimen | + + | Blood - Blood | + + + + + + + | Performing | Address | City/State/Zipcode | Phone Number | | Organization | | | | + + + + + | [facility] DEPARTMENT OF | [phone] | [place] [address] | | | PATHOLOGY | [address] | | | + + + + + CBC, WITH DIFFERENTIAL (12/03/2011 12:37 AM PST) + + + + + + | Component | Value | Ref Range | Performed | Pathologist | | | | | At | Signature | + + + + + + | WHITE CELL | 6.1 | 4.4 - 11.0 K/cu | [facility] | | | COUNT | | mm | DEPARTMENT | | | | | | OF | | | | | | PATHOLOGY | | + + + + + + | RED CELL | 3.18 (L) | 4.00 - 5.20 | [facility] | | | COUNT | | M/cu mm | DEPARTMENT | | | | | | OF | | | | | | PATHOLOGY | | + + + + + + | HEMOGLOBIN | 8.9 (L) | 12.0 - 16.0 | [facility] | | | | | g/dL | DEPARTMENT | | | | | | OF | | | | | | PATHOLOGY | | + + + + + + | HEMATOCRIT | 26.0 (L) | 36.0 - 46.0 % | [facility] | | | | | | DEPARTMENT | | | | | | OF | | | | | | PATHOLOGY | | + + + + + + | MCV | 81.9 | 80.0 - 96.0 fL | [facility] | | | | | | DEPARTMENT | | | | | | OF | | | | | | PATHOLOGY | | + + + + + + | MCHC | 34.1 | 33.4 - 35.5 | [facility] | | | | | g/dL | DEPARTMENT | | | | | | OF | | | | | | PATHOLOGY | | + + + + + + | RDW | 14.5 | 11.5 - 15.0 % | [facility] | | | | | | DEPARTMENT | | | | | | OF | | | | | | PATHOLOGY | | + + + + + + | PLATELET | 252 | 150 - 400 K/cu | [facility] | | | COUNT | | mm | DEPARTMENT | | | | | | OF | | | | | | PATHOLOGY | | + + + + + + | CBC | Final Manual | | [facility] | | | COMMENTS | Differential Report. | | DEPARTMENT | | | | | | OF | | | | | | PATHOLOGY | | + + + + + + + + | Specimen | + + | Blood - Blood | + + + + + | Narrative | Performed At | + + + | * Corrected 12/03/11 03:53: HILARIO COMMENTS, prev report: Slide | [facility] | | review pending. | DEPARTMENT OF | | | PATHOLOGY | + + + + + + + + | Performing | Address | City/State/Zipcode | Phone Number | | Organization | | | | + + + + + | [facility] DEPARTMENT [facility] | [address] | [place] [address] | | | PATHOLOGY | [address] | | | + + + + + CHOLESTEROL TOTAL, PLASMA (12/03/2011 12:37 AM PST) + + + + + + | Component | Value | Ref Range | Performed | Pathologist | | | | | At | Signature | + + + + + + | CHOLESTEROL | 161Comment: | <200 mg/dL | [facility] | | | (LAB) | Cholesterol Reference | | DEPARTMENT | | | | Range: | | OF | | | | Desirable: <200 | | PATHOLOGY | | | | Borderline | | | | | | High: 200 - 239 | | | | | | | | | | | | High: >=240 | | | | | | LDL Cholesterol | | | | | | Reference Range: | | | | | | | | | | | | Optimal: <100 | | | | | | Near Optimal: | | | | | | 100 - 129 | | | | | | Borderline High: | | | | | | 130 - 159 | | | | | | High: | | | | | | 160 - 189 | | | | | | Very High: | | | | | | >=190 | | | | + + + + + + + + | Specimen | + + | Blood - Blood | + + + + + + + | Performing | Address | City/State/Zipcode | Phone Number | | Organization | | | | + + + + + | [facility] | [address] | [place] [address] | | | PATHOLOGY | [address] | | | + + + + + BILIRUBIN DIRECT (12/03/2011 12:37 AM PST) + +-------+ + + + | Component | Value | Ref Range | Performed | Pathologist | | | | | At | Signature | + +-------+ + + + | BILIRUBIN | 0.1 | <0.4 mg/dL | [facility] | | | DIRECT | | | DEPARTMENT | | | | | | OF | | | | | | PATHOLOGY | | + +-------+ + + + + + | Specimen | + + | Blood - Blood | + + + + + + + | Performing | Address | City/State/Zipcode | Phone Number | | Organization | | | | + + + + + | [facility] | [address] | [place] [address] | | | PATHOLOGY | [address] | | | + + + + + PHOSPHORUS, PLASMA (12/03/2011 12:37 AM PST) + +-------+ + + + | Component | Value | Ref Range | Performed | Pathologist | | | | | At | Signature | + +-------+ + + + | PHOSPHORUS, | 2.4 | 2.4 - 4.7 mg/dL | [facility] | | | PLASMA | | | DEPARTMENT | | | (LAB) | | | OF | | | | | | PATHOLOGY | | + +-------+ + + + + + | Specimen | + + | Blood - Blood | + + + + + + + | Performing | Address | City/State/Zipcode | Phone Number | | Organization | | | | + + + + + | [facility] DEPARTMENT OF | [address] | [place] [address] | | | PATHOLOGY | [address] | | | + + + + + MAGNESIUM, PLASMA (12/03/2011 12:37 AM PST) + +-------+ + + + | Component | Value | Ref Range | Performed | Pathologist | | | | | At | Signature | + +-------+ + + + | MAGNESIUM,P | 1.8 | 1.8 - 2.5 mg/dL | [facility] | | | LASMA | | | DEPARTMENT | | | | | | OF | | | | | | PATHOLOGY | | + +-------+ + + + + + | Specimen | + + | Blood - Blood | + + + + + + + | Performing | Address | City/State/Zipcode | Phone Number | | Organization | | | | + + + + + | [facility] | [address] | [place] [address] | | | PATHOLOGY | [address] | | | + + + + + COMPLETE METABOLIC SET (NA,K,CL,CO2,BUN,CREAT,GLUC,CA,AST,ALT,BILI TOTAL,ALK PHOS,ALB,PROT TOTAL) (12/03/2011 12:37 AM PST) + + + + + + | Component | Value | Ref Range | Performed | Pathologist | | | | | At | Signature | + + + + + + | GLUCOSE, | 285 (H) | 60 - 99 mg/dL | [facility] | | | PLASMA | | | DEPARTMENT | | | (LAB) | | | OF | | | | | | PATHOLOGY | | + + + + + + | BUN, PLASMA | 4 (L) | 6 - 20 mg/dL | [facility] | | | (LAB) | | | DEPARTMENT | | | | | | OF | | | | | | PATHOLOGY | | + + + + + + | CREATININE | 0.55 (L) | 0.60 - 1.10 | [facility] | | | PLASMA | | mg/dL | DEPARTMENT | | | (LAB) | | | OF | | | | | | PATHOLOGY | | + + + + + + | TOTAL | 5.5 (L) | 6.1 - 7.9 g/dL | [facility] | | | PROTEIN, | | | DEPARTMENT | | | PLASMA | | | OF | | | (LAB) | | | PATHOLOGY | | + + + + + + | ALBUMIN, | 2.9 (L) | 3.5 - 4.7 g/dL | [facility] | | | PLASMA | | | DEPARTMENT | | | (LAB) | | | OF | | | | | | PATHOLOGY | | + + + + + + | CALCIUM, | 8.1 (L) | 8.6 - 10.2 | [facility] | | | PLASMA | | mg/dL | DEPARTMENT | | | (LAB) | | | OF | | | | | | PATHOLOGY | | + + + + + + | BILIRUBIN | 0.5 | 0.3 - 1.2 mg/dL | [facility] | | | TOTAL | | | DEPARTMENT | | | | | | OF | | | | | | PATHOLOGY | | + + + + + + | ALK PHOS | 144 (H) | 42 - 98 U/L | [facility] | | | | | | DEPARTMENT | | | | | | OF | | | | | | PATHOLOGY | | + + + + + + | AST(SGOT) | 46 (H) | 15 - 41 U/L | [facility] | | | | | | DEPARTMENT | | | | | | OF | | | | | | PATHOLOGY | | + + + + + + | SODIUM, | 138 | 134 - 143 | [facility] | | | PLASMA | | mmol/L | DEPARTMENT | | | (LAB) | | | OF | | | | | | PATHOLOGY | | + + + + + + | POTASSIUM, | 3.5 | 3.4 - 5.0 | [facility] | | | PLASMA | | mmol/L | DEPARTMENT | | | (LAB) | | | OF | | | | | | PATHOLOGY | | + + + + + + | CHLORIDE, | 99 | 97 - 108 mmol/L | [facility] | | | PLASMA | | | DEPARTMENT | | | (LAB) | | | OF | | | | | | PATHOLOGY | | + + + + + + | TOTAL CO2, | 29 | 22 - 29 mmol/L | [facility] | | | PLASMA | | | DEPARTMENT | | | (LAB) | | | OF | | | | | | PATHOLOGY | | + + + + + + | ALT (SGPT) | 87 (H) | 13 - 48 U/L | [facility] | | | | | | DEPARTMENT | | | | | | OF | | | | | | PATHOLOGY | | + + + + + + | ANION GAP | 10 | 4 - 11 mmol/L | [facility] | | | | | | DEPARTMENT | | | | | | OF | | | | | | PATHOLOGY | | + + + + + + | ANION | 12 (H) | 4 - 11 mmol/L | [facility] | | | GAP(ALB | | | DEPARTMENT | | | CORRECTED) | | | OF | | | | | | PATHOLOGY | | + + + + + + + + | Specimen | + + | Blood - Blood | + + + + + + + | Performing | Address | City/State/Zipcode | Phone Number | | Organization | | | | + + + + + | [facility] | [address] | [place] [address] | | | PATHOLOGY | [address] | | | + + + + + LEUKEMIA/LYMPHOMA MARKER - CSF/BODY FLUID (12/03/2011) + + + + + + | Component | Value | Ref Range | Performed | Pathologist | | | | | At | Signature | + + + + + + | HEMATOPATHO | SOURCE OF SPECIMEN:A CSF | | [facility] | | | LOGY | Final Pathologic | | DEPARTMENT | | | | Diagnosis:Cerebrospinal | | OF | | | | fluid: - No | | PATHOLOGY | | | | evidence of malignancy | | | | | | Case reviewed | | | | | | by:Vira Callahan M.D., Ph.D. 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 The | | | | | | clinician wishes to rule | | | | | | outinvolvement of | | | | | | cerebrospinal fluid | | | | | | (CSF). CSF Cell | | | | | | Count and | | | | | | Differential:Sample | | | | | | Collection Date | | | | | | | | | | | | 12/03/11Code : 12 | | | | | | -[id number] all | | | | | | ZOFIA | | | | | | [id number] | | | | | | -ADAM, | | | | | | [facility]-[id number] | | | | | | WRD: REF | | | | | | C:12/03/2011 | | | | | | 12:06R:12/03/2011 | | | | | | Cerebrospinal Fluid | | | | | | | | | | | | CSF Appearance | | | | | | Clear | | | | | | (Clear) | | | | | | CSF Color | | | | | | Colorless | | | | | | (Colorless) | | | | | | Tube # | | | | | | Other | | | | | | WBC | | | | | | | | | | | | 2 | | | | | | (< 6) | | | | | | /cu mm | | | | | | RBC | | | | | | < 1 | | | | | | (< 1) | | | | | | /cu mm | | | | | | Total Cell Count | | | | | | 62 | | | | | | | | | | | | Lymphocytes | | | | | | 61 | | | | | | (40-80) | | | | | | % | | | | | | Monocytes | | | | | | 34 | | | | | | (15-45) | | | | | | % | | | | | | Macrophages | | | | | | 5 | | | | | | | | | | | | % Gross | | | | | | Description:Fresh CSF | | | | | | was received in the Flow | | | | | | Cytometry Lab for | | | | | | cytologic and | | | | | | possibleimmunologic | | | | | | evaluation. A | | | | | | Contreras-stained cytoprep | | | | | | was made for | | | | | | cytologicevaluation. | | | | | | Microscopic | | | | | | Description:The cytospin | | | | | | of the concentrated CSF | | | | | | cells was reviewed. It | | | | | | shows a lowcellularity, | | | | | | with scattered acellular | | | | | | debris. The few WBC's | | | | | | present aresmall | | | | | | lymphocytes, monocytes, | | | | | | or macrophages. No large | | | | | | atypical cells | | | | | | areidentified. | | | | | | Immunologic Analysis: An | | | | | | analysis was not | | | | | | performed due to the | | | | | | lowcellularity and an | | | | | | absence of morphologic | | | | | | atypical cells. My | | | | | | electronic signature | | | | | | indicates that I have | | | | | | personally reviewed | | | | | | alldiagnostic slides, | | | | | | the gross and/or | | | | | | microscopic portion of | | | | | | thisreport and | | | | | | formulated the final | | | | | | diagnosis. | | | | | | Rendering Diagnostician: | | | | | | Cheryl Camilo | | | | | | ClintHematopathologistEle | | | | | | ctronically Signed | | | | | | 12/07/2011 8:43AM | | | | + + + + + + + + | Specimen | + + | Cerebrospinal fluid | | - Cerebrospinal | | fluid | + + + + + + + | Performing | Address | City/State/Zipcode | Phone Number | | Organization | | | | + + + + + | [facility] | [address] | [place] [address] | | | PATHOLOGY | [address] | | | + + + + + UA DIPSTICK ONLY, POC RESULT (12/02/2011 10:55 PM PST) + +-------+ + + + | Component | Value | Ref Range | Performed | Pathologist | | | | | At | Signature | + +-------+ + + + | PH (UA | 7.5 | 5 - 8 | | | | DIP), POC | | | | | + +-------+ + + + UA DIPSTICK ONLY, POC RESULT (12/02/2011 9:08 PM PST) + +-------+ + + + | Component | Value | Ref Range | Performed | Pathologist | | | | | At | Signature | + +-------+ + + + | PH (UA | 8.0 | 5 - 8 | | | | DIP), POC | | | | | + +-------+ + + + UA DIPSTICK ONLY, POC RESULT (12/02/2011 5:33 PM PST) + +-------+ + + + | Component | Value | Ref Range | Performed | Pathologist | | | | | At | Signature | + +-------+ + + + | PH (UA | 7.0 | 5 - 8 | | | | DIP), POC | | | | | + +-------+ + + + UA DIPSTICK ONLY, POC RESULT (12/02/2011 1:15 PM PST) + +-------+ + + + | Component | Value | Ref Range | Performed | Pathologist | | | | | At | Signature | + +-------+ + + + | PH (UA | 6 | 5 - 8 | | | | DIP), POC | | | | | + +-------+ + + + EXTENDED DIFF (12/02/2011 12:17 AM PST) + +--------+ + + + | Component | Value | Ref Range | Performed | Pathologist | | | | | At | Signature | + +--------+ + + + | METAMYELOCY | 4 | % | [facility] | | | MICHEAL % | | | DEPARTMENT | | | | | | OF | | | | | | PATHOLOGY | | + +--------+ + + + | MYELOCYTES | 4 | % | [facility] | | | % | | | DEPARTMENT | | | | | | OF | | | | | | PATHOLOGY | | + +--------+ + + + | NRBC | 0 | <1 /100 WBC | [facility] | | | | | | DEPARTMENT | | | | | | OF | | | | | | PATHOLOGY | | + +--------+ + + + | BANDS # | 0.7 | 0.0 - 1.1 | [facility] | | | | | | DEPARTMENT | | | | | | OF | | | | | | PATHOLOGY | | + +--------+ + + + | BANDS % | 13 (H) | <11 % | [facility] | | | | | | DEPARTMENT | | | | | | OF | | | | | | PATHOLOGY | | + +--------+ + + + | ATYPICAL | 0 | | [facility] | | | CELL % | | | DEPARTMENT | | | | | | OF | | | | | | PATHOLOGY | | + +--------+ + + + | PROMYELOCYT | 1 | % | [facility] | | | ES % | | | DEPARTMENT | | | | | | OF | | | | | | PATHOLOGY | | + +--------+ + + + + + | Specimen | + + | | + + + + + | Narrative | Performed At | + + + | * Corrected 12/02/11 05:03: HILARIO COMMENTS, prev report: Slide | [facility] | | review pending. | DEPARTMENT OF | | | PATHOLOGY | + + + + + + + + | Performing | Address | City/State/Zipcode | Phone Number | | Organization | | | | + + + + + | [facility] DEPARTMENT | [address] | [place] [address] | | | PATHOLOGY | [address] | | | + + + + + VANCOMYCIN, TROUGH (12/02/2011 12:17 AM PST) + +-------+ + + + | Component | Value | Ref Range | Performed | Pathologist | | | | | At | Signature | + +-------+ + + + | VANCOMYCIN, | 14.0 | 5.0 - 15.0 | [facility] | | | TROUGH | | ug/mL | DEPARTMENT | | | | | | OF | | | | | | PATHOLOGY | | + +-------+ + + + + + | Specimen | + + | | + + + + + + + | Performing | Address | City/State/Zipcode | Phone Number | | Organization | | | | + + + + + | [facility] DEPARTMENT OF | [address] | [place] [address] | | | PATHOLOGY | [address] | | | + + + + + DIFFERENTIAL (12/02/2011 12:17 AM PST) + +---------+ + + + | Component | Value | Ref Range | Performed | Pathologist | | | | | At | Signature | + +---------+ + + + | NEUTROPHIL | 56 | 50 - 70 % | [facility] | | | % | | | DEPARTMENT | | | | | | OF | | | | | | PATHOLOGY | | + +---------+ + + + | LYMPHOCYTE | 14 (L) | 18 - 42 % | [facility] | | | % | | | DEPARTMENT | | | | | | OF | | | | | | PATHOLOGY | | + +---------+ + + + | MONOCYTE % | 8 | 2 - 8 % | [facility] | | | | | | DEPARTMENT | | | | | | OF | | | | | | PATHOLOGY | | + +---------+ + + + | EOS % | 0 (L) | 1 - 3 % | [facility] | | | | | | DEPARTMENT | | | | | | OF | | | | | | PATHOLOGY | | + +---------+ + + + | BASO % | 0 | <3 % | [facility] | | | | | | DEPARTMENT | | | | | | OF | | | | | | PATHOLOGY | | + +---------+ + + + | NEUTROPHIL | 3.1 | 1.8 - 7.7 K/cu | [facility] | | | # | | mm | DEPARTMENT | | | | | | OF | | | | | | PATHOLOGY | | + +---------+ + + + | LYMPHOCYTE | 0.8 (L) | 1.0 - 4.8 K/cu | [facility] | | | # | | mm | DEPARTMENT | | | | | | OF | | | | | | PATHOLOGY | | + +---------+ + + + | MONOCYTE # | 0.5 | <0.9 K/cu mm | [facility] | | | | | | DEPARTMENT | | | | | | OF | | | | | | PATHOLOGY | | + +---------+ + + + | EOS # | 0.0 | <0.6 K/cu mm | [facility] | | | | | | DEPARTMENT | | | | | | OF | | | | | | PATHOLOGY | | + +---------+ + + + | BASO # | 0.0 | <0.3 | [facility] | | | | | | DEPARTMENT | | | | | | OF | | | | | | PATHOLOGY | | + +---------+ + + + + + | Specimen | + + | | + + + + + | Narrative | Performed At | + + + | * Corrected 12/02/11 05:03: HILARIO COMMENTS, prev report: Slide | [facility] | | review pending. | DEPARTMENT OF | | | PATHOLOGY | + + + + + + + + | Performing | Address | City/State/Zipcode | Phone Number | | Organization | | | | + + + + + | [facility] DEPARTMENT OF | [address] | [place] [address] | | | PATHOLOGY | [address] | | | + + + + + URIC ACID, PLASMA (12/02/2011 12:17 AM PST) + +-------+ + + + | Component | Value | Ref Range | Performed | Pathologist | | | | | At | Signature | + +-------+ + + + | URIC ACID, | 3.4 | 2.5 - 6.2 mg/dL | [facility] | | | PLASMA | | | DEPARTMENT | | | (LAB) | | | OF | | | | | | PATHOLOGY | | + +-------+ + + + + + | Specimen | + + | Blood - Blood | + + + + + + + | Performing | Address | City/State/Zipcode | Phone Number | | Organization | | | | + + + + + | [facility] | [address] | [place] [address] | | | PATHOLOGY | [address] | | | + + + + + LDH TOTAL, PLASMA (12/02/2011 12:17 AM PST) + +-------+ + + + | Component | Value | Ref Range | Performed | Pathologist | | | | | At | Signature | + +-------+ + + + | LD TOTAL, | 189 | 110 - 205 U/L | [facility] | | | PLASMA | | | DEPARTMENT | | | | | | OF | | | | | | PATHOLOGY | | + +-------+ + + + + + | Specimen | + + | Blood - Blood | + + + + + + + | Performing | Address | City/State/Zipcode | Phone Number | | Organization | | | | + + + + + | [facility] DEPARTMENT [facility] | [address] | [place] [address] | | | PATHOLOGY | [address] | | | + + + + + CBC, WITH DIFFERENTIAL (12/02/2011 12:17 AM PST) + + + + + + | Component | Value | Ref Range | Performed | Pathologist | | | | | At | Signature | + + + + + + | WHITE CELL | 5.6 | 4.4 - 11.0 K/cu | [facility] | | | COUNT | | mm | DEPARTMENT | | | | | | OF | | | | | | PATHOLOGY | | + + + + + + | RED CELL | 3.19 (L) | 4.00 - 5.20 | [facility] | | | COUNT | | M/cu mm | DEPARTMENT | | | | | | OF | | | | | | PATHOLOGY | | + + + + + + | HEMOGLOBIN | 8.8 (L) | 12.0 - 16.0 | [facility] | | | | | g/dL | DEPARTMENT | | | | | | OF | | | | | | PATHOLOGY | | + + + + + + | HEMATOCRIT | 25.8 (L) | 36.0 - 46.0 % | [facility] | | | | | | DEPARTMENT | | | | | | OF | | | | | | PATHOLOGY | | + + + + + + | MCV | 81.1 | 80.0 - 96.0 fL | [facility] | | | | | | DEPARTMENT | | | | | | OF | | | | | | PATHOLOGY | | + + + + + + | MCHC | 34.0 | 33.4 - 35.5 | [facility] | | | | | g/dL | DEPARTMENT | | | | | | OF | | | | | | PATHOLOGY | | + + + + + + | RDW | 14.4 | 11.5 - 15.0 % | [facility] | | | | | | DEPARTMENT | | | | | | OF | | | | | | PATHOLOGY | | + + + + + + | PLATELET | 182 | 150 - 400 K/cu | [facility] | | | COUNT | | mm | DEPARTMENT | | | | | | OF | | | | | | PATHOLOGY | | + + + + + + | CBC | Final Manual | | [facility] | | | COMMENTS | Differential Report. | | DEPARTMENT | | | | | | OF | | | | | | PATHOLOGY | | + + + + + + + + | Specimen | + + | Blood - Blood | + + + + + | Narrative | Performed At | + + + | * Corrected 12/02/11 05:03: HILARIO COMMENTS, prev report: Slide | [facility] | | review pending. | DEPARTMENT OF | | | PATHOLOGY | + + + + + + + + | Performing | Address | City/State/Zipcode | Phone Number | | Organization | | | | + + + + + | [facility] DEPARTMENT OF | [address] | [place] [address] | | | PATHOLOGY | [address] | | | + + + + + PHOSPHORUS, PLASMA (12/02/2011 12:17 AM PST) + +-------+ + + + | Component | Value | Ref Range | Performed | Pathologist | | | | | At | Signature | + +-------+ + + + | PHOSPHORUS, | 3.2 | 2.4 - 4.7 mg/dL | [facility] | | | PLASMA | | | DEPARTMENT | | | (LAB) | | | OF | | | | | | PATHOLOGY | | + +-------+ + + + + + | Specimen | + + | Blood - Blood | + + + + + + + | Performing | Address | City/State/Zipcode | Phone Number | | Organization | | | | + + + + + | [facility] DEPARTMENT OF | [address] | [place] [address] | | | PATHOLOGY | [address] | | | + + + + + MAGNESIUM, PLASMA (12/02/2011 12:17 AM PST) + +-------+ + + + | Component | Value | Ref Range | Performed | Pathologist | | | | | At | Signature | + +-------+ + + + | MAGNESIUM,P | 1.8 | 1.8 - 2.5 mg/dL | [facility] | | | LASMA | | | DEPARTMENT | | | | | | OF | | | | | | PATHOLOGY | | + +-------+ + + + + + | Specimen | + + | Blood - Blood | + + + + + + + | Performing | Address | City/State/Zipcode | Phone Number | | Organization | | | | + + + + + | [facility] | [address] | [place] [address] | | | PATHOLOGY | [address] | | | + + + + + COMPLETE METABOLIC SET (NA,K,CL,CO2,BUN,CREAT,GLUC,CA,AST,ALT,BILI TOTAL,ALK PHOS,ALB,PROT TOTAL) (12/02/2011 12:17 AM PST) + + + + + + | Component | Value | Ref Range | Performed | Pathologist | | | | | At | Signature | + + + + + + | GLUCOSE, | 131 (H) | 60 - 99 mg/dL | [facility] | | | PLASMA | | | DEPARTMENT | | | (LAB) | | | OF | | | | | | PATHOLOGY | | + + + + + + | BUN, PLASMA | 2 (L) | 6 - 20 mg/dL | [facility] | | | (LAB) | | | DEPARTMENT | | | | | | OF | | | | | | PATHOLOGY | | + + + + + + | CREATININE | 0.56 (L) | 0.60 - 1.10 | [facility] | | | PLASMA | | mg/dL | DEPARTMENT | | | (LAB) | | | OF | | | | | | PATHOLOGY | | + + + + + + | TOTAL | 5.1 (L) | 6.1 - 7.9 g/dL | [facility] | | | PROTEIN, | | | DEPARTMENT | | | PLASMA | | | OF | | | (LAB) | | | PATHOLOGY | | + + + + + + | ALBUMIN, | 2.7 (L) | 3.5 - 4.7 g/dL | [facility] | | | PLASMA | | | DEPARTMENT | | | (LAB) | | | OF | | | | | | PATHOLOGY | | + + + + + + | CALCIUM, | 8.1 (L) | 8.6 - 10.2 | [facility] | | | PLASMA | | mg/dL | DEPARTMENT | | | (LAB) | | | OF | | | | | | PATHOLOGY | | + + + + + + | BILIRUBIN | 0.4 | 0.3 - 1.2 mg/dL | [facility] | | | TOTAL | | | DEPARTMENT | | | | | | OF | | | | | | PATHOLOGY | | + + + + + + | ALK PHOS | 128 (H) | 42 - 98 U/L | [facility] | | | | | | DEPARTMENT | | | | | | OF | | | | | | PATHOLOGY | | + + + + + + | AST(SGOT) | 58 (H) | 15 - 41 U/L | [facility] | | | | | | DEPARTMENT | | | | | | OF | | | | | | PATHOLOGY | | + + + + + + | SODIUM, | 137 | 134 - 143 | [facility] | | | PLASMA | | mmol/L | DEPARTMENT | | | (LAB) | | | OF | | | | | | PATHOLOGY | | + + + + + + | POTASSIUM, | 3.2 (L) | 3.4 - 5.0 | [facility] | | | PLASMA | | mmol/L | DEPARTMENT | | | (LAB) | | | OF | | | | | | PATHOLOGY | | + + + + + + | CHLORIDE, | 103 | 97 - 108 mmol/L | [facility] | | | PLASMA | | | DEPARTMENT | | | (LAB) | | | OF | | | | | | PATHOLOGY | | + + + + + + | TOTAL CO2, | 27 | 22 - 29 mmol/L | [facility] | | | PLASMA | | | DEPARTMENT | | | (LAB) | | | OF | | | | | | PATHOLOGY | | + + + + + + | ALT (SGPT) | 68 (H) | 13 - 48 U/L | [facility] | | | | | | DEPARTMENT | | | | | | OF | | | | | | PATHOLOGY | | + + + + + + | ANION GAP | 7 | 4 - 11 mmol/L | [facility] | | | | | | DEPARTMENT | | | | | | OF | | | | | | PATHOLOGY | | + + + + + + | ANION | 10 | 4 - 11 mmol/L | [facility] | | | GAP(ALB | | | DEPARTMENT | | | CORRECTED) | | | OF | | | | | | PATHOLOGY | | + + + + + + + + | Specimen | + + | Blood - Blood | + + + + + + + | Performing | Address | City/State/Zipcode | Phone Number | | Organization | | | | + + + + + | [facility] | [address] | [place] [address] | | | PATHOLOGY | [address] | | | + + + + + VANCOMYCIN, TROUGH (12/02/2011 12:17 AM PST) + + + + + + | Component | Value | Ref Range | Performed | Pathologist | | | | | At | Signature | + + + + + + | VANCOMYCIN, | Combined. | ug/mL | [facility] | | | TROUGH | | | DEPARTMENT | | | | | | OF | | | | | | PATHOLOGY | | + + + + + + + + | Specimen | + + | Blood - Blood | + + + + + + + | Performing | Address | City/State/Zipcode | Phone Number | | Organization | | | | + + + + + | [facility] DE[facility]MENT [facility] | [phone] | [place] [address] | | | PATHOLOGY | [address] | | | + + + + + EXTENDED DIFF (12/01/2011 1:15 AM PST) + +--------+ + + + | Component | Value | Ref Range | Performed | Pathologist | | | | | At | Signature | + +--------+ + + + | METAMYELOCY | 3 | % | [facility] | | | MICHEAL % | | | DEPARTMENT | | | | | | OF | | | | | | PATHOLOGY | | + +--------+ + + + | MYELOCYTES | 6 | % | [facility] | | | % | | | DEPARTMENT | | | | | | OF | | | | | | PATHOLOGY | | + +--------+ + + + | NRBC | 0 | <1 /100 WBC | [facility] | | | | | | DEPARTMENT | | | | | | OF | | | | | | PATHOLOGY | | + +--------+ + + + | BANDS # | 0.5 | 0.0 - 1.1 | [facility] | | | | | | DEPARTMENT | | | | | | OF | | | | | | PATHOLOGY | | + +--------+ + + + | BANDS % | 13 (H) | <11 % | [facility] | | | | | | DEPARTMENT | | | | | | OF | | | | | | PATHOLOGY | | + +--------+ + + + | ATYPICAL | 0 | | [facility] | | | CELL % | | | DEPARTMENT | | | | | | OF | | | | | | PATHOLOGY | | + +--------+ + + + | PROMYELOCYT | 3 | % | [facility] | | | ES % | | | DEPARTMENT | | | | | | OF | | | | | | PATHOLOGY | | + +--------+ + + + + + | Specimen | + + | | + + + + + | Narrative | Performed At | + + + | * Corrected 12/01/11 04:34: HILARIO STILL, prev report: Slide | [facility] | | review pending. * Corrected 12/01/11 04:34: HILARIO STILL, prev | DEPARTMENT OF | | report: Final Manual Differential Report. [facility] | PATHOLOGY | + + + + + + + + | Performing | Address | City/State/Zipcode | Phone Number | | Organization | | | | + + + + + | [facility] | [phone] | [place] [address] | | | PATHOLOGY | [address] | | | + + + + + DIFFERENTIAL (12/01/2011 1:15 AM PST) + +---------+ + + + | Component | Value | Ref Range | Performed | Pathologist | | | | | At | Signature | + +---------+ + + + | NEUTROPHIL | 35 (L) | 50 - 70 % | [facility] | | | % | | | DEPARTMENT | | | | | | OF | | | | | | PATHOLOGY | | + +---------+ + + + | LYMPHOCYTE | 27 | 18 - 42 % | [facility] | | | % | | | DEPARTMENT | | | | | | OF | | | | | | PATHOLOGY | | + +---------+ + + + | MONOCYTE % | 11 (H) | 2 - 8 % | [facility] | | | | | | DEPARTMENT | | | | | | OF | | | | | | PATHOLOGY | | + +---------+ + + + | EOS % | 0 (L) | 1 - 3 % | [facility] | | | | | | DEPARTMENT | | | | | | OF | | | | | | PATHOLOGY | | + +---------+ + + + | BASO % | 0 | <3 % | [facility] | | | | | | DEPARTMENT | | | | | | OF | | | | | | PATHOLOGY | | + +---------+ + + + | NEUTROPHIL | 1.5 (L) | 1.8 - 7.7 K/cu | [facility] | | | # | | mm | DEPARTMENT | | | | | | OF | | | | | | PATHOLOGY | | + +---------+ + + + | LYMPHOCYTE | 1.1 | 1.0 - 4.8 K/cu | [facility] | | | # | | mm | DEPARTMENT | | | | | | OF | | | | | | PATHOLOGY | | + +---------+ + + + | MONOCYTE # | 0.5 | <0.9 K/cu mm | [facility] | | | | | | DEPARTMENT | | | | | | OF | | | | | | PATHOLOGY | | + +---------+ + + + | EOS # | 0.0 | <0.6 K/cu mm | [facility] | | | | | | DEPARTMENT | | | | | | OF | | | | | | PATHOLOGY | | + +---------+ + + + | BASO # | 0.0 | <0.3 | [facility] | | | | | | DEPARTMENT | | | | | | OF | | | | | | PATHOLOGY | | + +---------+ + + + + + | Specimen | + + | | + + + + + | Narrative | Performed At | + + + | * Corrected 12/01/11 04:34: HILARIO COMMENTS, prev report: Slide | [facility] | | review pending. * Corrected 12/01/11 04:34: HILARIO STILL, prev | DEPARTMENT OF | | report: Final Manual Differential Report. [facility] | PATHOLOGY | + + + + + + + + | Performing | Address | City/State/Zipcode | Phone Number | | Organization | | | | + + + + + | [facility] DEPARTMENT OF | [address] | [place] [address] | | | PATHOLOGY | [address] | | | + + + + + URIC ACID, PLASMA (12/01/2011 1:15 AM PST) + +-------+ + + + | Component | Value | Ref Range | Performed | Pathologist | | | | | At | Signature | + +-------+ + + + | URIC ACID, | 3.2 | 2.5 - 6.2 mg/dL | [facility] | | | PLASMA | | | DEPARTMENT | | | (LAB) | | | OF | | | | | | PATHOLOGY | | + +-------+ + + + + + | Specimen | + + | Blood - Blood | + + + + + + + | Performing | Address | City/State/Zipcode | Phone Number | | Organization | | | | + + + + + | [facility] DEPARTMENT OF | [address] | [place] [address] | | | PATHOLOGY | [address] | | | + + + + + LDH TOTAL, PLASMA (12/01/2011 1:15 AM PST) + +-------+ + + + | Component | Value | Ref Range | Performed | Pathologist | | | | | At | Signature | + +-------+ + + + | LD TOTAL, | 153 | 110 - 205 U/L | [facility] | | | PLASMA | | | DEPARTMENT | | | | | | OF | | | | | | PATHOLOGY | | + +-------+ + + + + + | Specimen | + + | Blood - Blood | + + + + + + + | Performing | Address | City/State/Zipcode | Phone Number | | Organization | | | | + + + + + | [facility] | [address] | [place] [address] | | | PATHOLOGY | [address] | | | + + + + + CBC, WITH DIFFERENTIAL (12/01/2011 1:15 AM PST) + + + + + + | Component | Value | Ref Range | Performed | Pathologist | | | | | At | Signature | + + + + + + | WHITE CELL | 4.2 (L) | 4.4 - 11.0 K/cu | [facility] | | | COUNT | | mm | DEPARTMENT | | | | | | OF | | | | | | PATHOLOGY | | + + + + + + | RED CELL | 3.16 (L) | 4.00 - 5.20 | [facility] | | | COUNT | | M/cu mm | DEPARTMENT | | | | | | OF | | | | | | PATHOLOGY | | + + + + + + | HEMOGLOBIN | 8.5 (L) | 12.0 - 16.0 | [facility] | | | | | g/dL | DEPARTMENT | | | | | | OF | | | | | | PATHOLOGY | | + + + + + + | HEMATOCRIT | 25.4 (L) | 36.0 - 46.0 % | [facility] | | | | | | DEPARTMENT | | | | | | OF | | | | | | PATHOLOGY | | + + + + + + | MCV | 80.2 | 80.0 - 96.0 fL | [facility] | | | | | | DEPARTMENT | | | | | | OF | | | | | | PATHOLOGY | | + + + + + + | MCHC | 33.6 | 33.4 - 35.5 | [facility] | | | | | g/dL | DEPARTMENT | | | | | | OF | | | | | | PATHOLOGY | | + + + + + + | RDW | 14.3 | 11.5 - 15.0 % | [facility] | | | | | | DEPARTMENT | | | | | | OF | | | | | | PATHOLOGY | | + + + + + + | PLATELET | 154 | 150 - 400 K/cu | [facility] | | | COUNT | | mm | DEPARTMENT | | | | | | OF | | | | | | PATHOLOGY | | + + + + + + | CBC | Final Manual | | [facility] | | | COMMENTS | Differential Report. | | DEPARTMENT | | | | | | OF | | | | | | PATHOLOGY | | + + + + + + | DIFF | Dohle bodies | | [facility] | | | COMMENTS | | | DEPARTMENT | | | | | | OF | | | | | | PATHOLOGY | | + + + + + + | PLATELET | Giant platelets present. | | [facility] | | | COMMENTS | | | DEPARTMENT | | | | | | OF | | | | | | PATHOLOGY | | + + + + + + + + | Specimen | + + | Blood - Blood | + + + + + | Narrative | Performed At | + + + | * Corrected 12/01/11 04:34: HILARIO STILL, prev report: Slide | [facility] | | review pending. * Corrected 12/01/11 04:34: HILARIO STILL, prev | DEPARTMENT OF | | report: Final Manual Differential Report. [facility] | PATHOLOGY | + + + + + + + + | Performing | Address | City/State/Zipcode | Phone Number | | Organization | | | | + + + + + | [facility] | [address] | [place] [address] | | | PATHOLOGY | [address] | | | + + + + + PHOSPHORUS, PLASMA (12/01/2011 1:15 AM PST) + +-------+ + + + | Component | Value | Ref Range | Performed | Pathologist | | | | | At | Signature | + +-------+ + + + | PHOSPHORUS, | 4.0 | 2.4 - 4.7 mg/dL | [facility] | | | PLASMA | | | DEPARTMENT | | | (LAB) | | | OF | | | | | | PATHOLOGY | | + +-------+ + + + + + | Specimen | + + | Blood - Blood | + + + + + + + | Performing | Address | City/State/Zipcode | Phone Number | | Organization | | | | + + + + + | [facility] DEPARTMENT OF | [address] | [place] [address] | | | PATHOLOGY | [address] | | | + + + + + MAGNESIUM, PLASMA (12/01/2011 1:15 AM PST) + +-------+ + + + | Component | Value | Ref Range | Performed | Pathologist | | | | | At | Signature | + +-------+ + + + | MAGNESIUM,P | 2.0 | 1.8 - 2.5 mg/dL | [facility] | | | LASMA | | | DEPARTMENT | | | | | | OF | | | | | | PATHOLOGY | | + +-------+ + + + + + | Specimen | + + | Blood - Blood | + + + + + + + | Performing | Address | City/State/Zipcode | Phone Number | | Organization | | | | + + + + + | [facility] DEPARTMENT OF | [address] | [place] [address] | | | PATHOLOGY | [address] | | | + + + + + COMPLETE METABOLIC SET (NA,K,CL,CO2,BUN,CREAT,GLUC,CA,AST,ALT,BILI TOTAL,ALK PHOS,ALB,PROT TOTAL) (12/01/2011 1:15 AM PST) + + + + + + | Component | Value | Ref Range | Performed | Pathologist | | | | | At | Signature | + + + + + + | GLUCOSE, | 91 | 60 - 99 mg/dL | [facility] | | | PLASMA | | | DEPARTMENT | | | (LAB) | | | OF | | | | | | PATHOLOGY | | + + + + + + | BUN, PLASMA | 6 | 6 - 20 mg/dL | [facility] | | | (LAB) | | | DEPARTMENT | | | | | | OF | | | | | | PATHOLOGY | | + + + + + + | CREATININE | 0.48 (L) | 0.60 - 1.10 | [facility] | | | PLASMA | | mg/dL | DEPARTMENT | | | (LAB) | | | OF | | | | | | PATHOLOGY | | + + + + + + | TOTAL | 4.7 (L) | 6.1 - 7.9 g/dL | [facility] | | | PROTEIN, | | | DEPARTMENT | | | PLASMA | | | OF | | | (LAB) | | | PATHOLOGY | | + + + + + + | ALBUMIN, | 2.7 (L) | 3.5 - 4.7 g/dL | [facility] | | | PLASMA | | | DEPARTMENT | | | (LAB) | | | OF | | | | | | PATHOLOGY | | + + + + + + | CALCIUM, | 8.0 (L) | 8.6 - 10.2 | [facility] | | | PLASMA | | mg/dL | DEPARTMENT | | | (LAB) | | | OF | | | | | | PATHOLOGY | | + + + + + + | BILIRUBIN | 0.4 | 0.3 - 1.2 mg/dL | [facility] | | | TOTAL | | | DEPARTMENT | | | | | | OF | | | | | | PATHOLOGY | | + + + + + + | ALK PHOS | 73 | 42 - 98 U/L | [facility] | | | | | | DEPARTMENT | | | | | | OF | | | | | | PATHOLOGY | | + + + + + + | AST(SGOT) | 35 | 15 - 41 U/L | [facility] | | | | | | DEPARTMENT | | | | | | OF | | | | | | PATHOLOGY | | + + + + + + | SODIUM, | 139 | 134 - 143 | [facility] | | | PLASMA | | mmol/L | DEPARTMENT | | | (LAB) | | | OF | | | | | | PATHOLOGY | | + + + + + + | POTASSIUM, | 3.3 (L) | 3.4 - 5.0 | [facility] | | | PLASMA | | mmol/L | DEPARTMENT | | | (LAB) | | | OF | | | | | | PATHOLOGY | | + + + + + + | CHLORIDE, | 105 | 97 - 108 mmol/L | [facility] | | | PLASMA | | | DEPARTMENT | | | (LAB) | | | OF | | | | | | PATHOLOGY | | + + + + + + | TOTAL CO2, | 28 | 22 - 29 mmol/L | [facility] | | | PLASMA | | | DEPARTMENT | | | (LAB) | | | OF | | | | | | PATHOLOGY | | + + + + + + | ALT (SGPT) | 26 | 13 - 48 U/L | [facility] | | | | | | DEPARTMENT | | | | | | OF | | | | | | PATHOLOGY | | + + + + + + | ANION GAP | 6 | 4 - 11 mmol/L | [facility] | | | | | | DEPARTMENT | | | | | | OF | | | | | | PATHOLOGY | | + + + + + + | ANION | 9 | 4 - 11 mmol/L | [facility] | | | GAP(ALB | | | DEPARTMENT | | | CORRECTED) | | | OF | | | | | | PATHOLOGY | | + + + + + + + + | Specimen | + + | Blood - Blood | + + + + + + + | Performing | Address | City/State/Zipcode | Phone Number | | Organization | | | | + + + + + | [facility] | [address] | [place] [address] | | | PATHOLOGY | [address] | | | + + + + + CAPILLARY BLOOD GLUCOSE, POC (11/30/2011 6:13 PM PST) + +---------+ + + + | Component | Value | Ref Range | Performed | Pathologist | | | | | At | Signature | + +---------+ + + + | BLOOD | 111 (H) | 60 - 99 mg/dL | [facility] - | | | GLUCOSE, | | | [facility] | | | POC | | | [facility] | | | | | | OF CARE | | | | | | TESTS | | + +---------+ + + + + + | Specimen | + + | | + + + + + + + | Performing | Address | City/State/Zipcode | Phone Number | | Organization | | | | + + + + + | [facility] | [address] | [place], [place] | | | [facility] | [address] | [address] | | | TESTS | | | | + + + + + US ABDOMEN LIMITED (11/30/2011 1:15 PM PST) + + + + + + | Component | Value | Ref Range | Performed | Pathologist | | | | | At | Signature | + + + + + + | US ABDOMEN | STUDY:US ABDOMEN LIMT | | | | | LIMITED | 11/30/11 13:15:00 | | | | | | COMPARISON:Chest abdomen | | | | | | pelvis CT 11/14/11 | | | | | | INDICATION: Checking for | | | | | | ascites prior to | | | | | | chemotherapy | | | | | | FINDINGS:The abdominal | | | | | | quadrants were scanned | | | | | | with ultrasound. No | | | | | | ascites isidentified. | | | | | | There is a large | | | | | | amount of bowel gas | | | | | | which couldconceivably | | | | | | obscure small amount of | | | | | | free fluid. IMPRESSION: | | | | | | No ascites identified. | | | | | | Attending Radiologists: | | | | | | RENETTA HAQ M.D.Author: | | | | | | RENETTA HAQ M.D. I have | | | | | | personally viewed this | | | | | | procedure/exam, reviewed | | | | | | this report,and made | | | | | | changes to it where | | | | | | appropriate. | | | | | | Final/Electronically | | | | | | signed / RENETTA HAQ | | | | | | 11/30/2011 13:29 PM | | | | + + + + + + + + | Specimen | + + | | + + + +---------+ + + | Performing | Address | City/State/Zipcode | Phone Number | | Organization | | | | + +---------+ + + | [facility] DEPARTMENT OF | | | | | RADIOLOGY | | | | + +---------+ + + EXTENDED DIFF (11/30/2011 12:06 AM PST) + +--------+ + + + | Component | Value | Ref Range | Performed | Pathologist | | | | | At | Signature | + +--------+ + + + | METAMYELOCY | 0 | % | [facility] | | | MICHEAL % | | | DEPARTMENT | | | | | | OF | | | | | | PATHOLOGY | | + +--------+ + + + | MYELOCYTES | 0 | % | [facility] | | | % | | | DEPARTMENT | | | | | | OF | | | | | | PATHOLOGY | | + +--------+ + + + | NRBC | 0 | <1 /100 WBC | [facility] | | | | | | DEPARTMENT | | | | | | OF | | | | | | PATHOLOGY | | + +--------+ + + + | BANDS # | 1.0 | 0.0 - 1.1 | [facility] | | | | | | DEPARTMENT | | | | | | OF | | | | | | PATHOLOGY | | + +--------+ + + + | BANDS % | 17 (H) | <11 % | [facility] | | | | | | DEPARTMENT | | | | | | OF | | | | | | PATHOLOGY | | + +--------+ + + + | ATYPICAL | 0 | | [facility] | | | CELL % | | | DEPARTMENT | | | | | | OF | | | | | | PATHOLOGY | | + +--------+ + + + | PROMYELOCYT | 0 | % | [facility] | | | ES % | | | DEPARTMENT | | | | | | OF | | | | | | PATHOLOGY | | + +--------+ + + + + + | Specimen | + + | | + + + + + | Narrative | Performed At | + + + | * Corrected 11/30/11 01:58: HILARIO COMMENTS, prev report: Slide | [facility] | | review pending. | DEPARTMENT OF | | | PATHOLOGY | + + + + + + + + | Performing | Address | City/State/Zipcode | Phone Number | | Organization | | | | + + + + + | [facility] DEPARTMENT OF | [address] | [place] [address] | | | PATHOLOGY | [address] | | | + + + + + DIFFERENTIAL (11/30/2011 12:06 AM PST) + +--------+ + + + | Component | Value | Ref Range | Performed | Pathologist | | | | | At | Signature | + +--------+ + + + | NEUTROPHIL | 48 (L) | 50 - 70 % | [facility] | | | % | | | DEPARTMENT | | | | | | OF | | | | | | PATHOLOGY | | + +--------+ + + + | LYMPHOCYTE | 26 | 18 - 42 % | [facility] | | | % | | | DEPARTMENT | | | | | | OF | | | | | | PATHOLOGY | | + +--------+ + + + | MONOCYTE % | 9 (H) | 2 - 8 % | [facility] | | | | | | DEPARTMENT | | | | | | OF | | | | | | PATHOLOGY | | + +--------+ + + + | EOS % | 0 (L) | 1 - 3 % | [facility] | | | | | | DEPARTMENT | | | | | | OF | | | | | | PATHOLOGY | | + +--------+ + + + | BASO % | 0 | <3 % | [facility] | | | | | | DEPARTMENT | | | | | | OF | | | | | | PATHOLOGY | | + +--------+ + + + | NEUTROPHIL | 2.9 | 1.8 - 7.7 K/cu | [facility] | | | # | | mm | DEPARTMENT | | | | | | OF | | | | | | PATHOLOGY | | + +--------+ + + + | LYMPHOCYTE | 1.6 | 1.0 - 4.8 K/cu | [facility] | | | # | | mm | DEPARTMENT | | | | | | OF | | | | | | PATHOLOGY | | + +--------+ + + + | MONOCYTE # | 0.5 | <0.9 K/cu mm | [facility] | | | | | | DEPARTMENT | | | | | | OF | | | | | | PATHOLOGY | | + +--------+ + + + | EOS # | 0.0 | <0.6 K/cu mm | [facility] | | | | | | DEPARTMENT | | | | | | OF | | | | | | PATHOLOGY | | + +--------+ + + + | BASO # | 0.0 | <0.3 | [facility] | | | | | | DEPARTMENT | | | | | | OF | | | | | | PATHOLOGY | | + +--------+ + + + + + | Specimen | + + | | + + + + + | Narrative | Performed At | + + + | * Corrected 11/30/11 01:58: HILARIO COMMENTS, prev report: Slide | [facility] | | review pending. | DEPARTMENT OF | | | PATHOLOGY | + + + + + + + + | Performing | Address | City/State/Zipcode | Phone Number | | Organization | | | | + + + + + | [facility] DEPARTMENT OF | [address] | [place] [address] | | | PATHOLOGY | [address] | | | + + + + + URIC ACID, PLASMA (11/30/2011 12:06 AM PST) + +-------+ + + + | Component | Value | Ref Range | Performed | Pathologist | | | | | At | Signature | + +-------+ + + + | URIC ACID, | 3.1 | 2.5 - 6.2 mg/dL | [facility] | | | PLASMA | | | DEPARTMENT | | | (LAB) | | | OF | | | | | | PATHOLOGY | | + +-------+ + + + + + | Specimen | + + | Blood - Blood | + + + + + + + | Performing | Address | City/State/Zipcode | Phone Number | | Organization | | | | + + + + + | [facility] | [address] | [place] [address] | | | PATHOLOGY | [address] | | | + + + + + LDH TOTAL, PLASMA (11/30/2011 12:06 AM PST) + +-------+ + + + | Component | Value | Ref Range | Performed | Pathologist | | | | | At | Signature | + +-------+ + + + | LD TOTAL, | 125 | 110 - 205 U/L | [facility] | | | PLASMA | | | DEPARTMENT | | | | | | OF | | | | | | PATHOLOGY | | + +-------+ + + + + + | Specimen | + + | Blood - Blood | + + + + + + + | Performing | Address | City/State/Zipcode | Phone Number | | Organization | | | | + + + + + | [facility] DEPARTMENT OF | [address] | [place] [address] | | | PATHOLOGY | [address] | | | + + + + + INR (11/30/2011 12:06 AM PST) + + + + + + | Component | Value | Ref Range | Performed | Pathologist | | | | | At | Signature | + + + + + + | INR | 1.06Comment: | 0.90 - 1.20 INR | [facility] | | | | INR Therapeutic ranges | | DEPARTMENT | | | | for full | | OF | | | | anticoagulation: | | PATHOLOGY | | | | INR for Venous | | | | | | Thromboembolism | | | | | | (2.0-3.0) | | | | | | INR INR for most | | | | | | patients with mech. | | | | | | valves (2.5-3.5) | | | | | | INR | | | | + + + + + + + + | Specimen | + + | Blood - Blood | + + + + + + + | Performing | Address | City/State/Zipcode | Phone Number | | Organization | | | | + + + + + | [facility] DEPARTMENT OF | [address] | [place] [address] | | | PATHOLOGY | [address] | | | + + + + + CBC, WITH DIFFERENTIAL (11/30/2011 12:06 AM PST) + + + + + + | Component | Value | Ref Range | Performed | Pathologist | | | | | At | Signature | + + + + + + | WHITE CELL | 6.1 | 4.4 - 11.0 K/cu | [facility] | | | COUNT | | mm | DEPARTMENT | | | | | | OF | | | | | | PATHOLOGY | | + + + + + + | RED CELL | 3.37 (L) | 4.00 - 5.20 | [facility] | | | COUNT | | M/cu mm | DEPARTMENT | | | | | | OF | | | | | | PATHOLOGY | | + + + + + + | HEMOGLOBIN | 9.6 (L) | 12.0 - 16.0 | [facility] | | | | | g/dL | DEPARTMENT | | | | | | OF | | | | | | PATHOLOGY | | + + + + + + | HEMATOCRIT | 27.1 (L) | 36.0 - 46.0 % | [facility] | | | | | | DEPARTMENT | | | | | | OF | | | | | | PATHOLOGY | | + + + + + + | MCV | 80.5 | 80.0 - 96.0 fL | [facility] | | | | | | DEPARTMENT | | | | | | OF | | | | | | PATHOLOGY | | + + + + + + | MCHC | 35.5 | 33.4 - 35.5 | [facility] | | | | | g/dL | DEPARTMENT | | | | | | OF | | | | | | PATHOLOGY | | + + + + + + | RDW | 14.2 | 11.5 - 15.0 % | [facility] | | | | | | DEPARTMENT | | | | | | OF | | | | | | PATHOLOGY | | + + + + + + | PLATELET | 107 (L) | 150 - 400 K/cu | [facility] | | | COUNT | | mm | DEPARTMENT | | | | | | OF | | | | | | PATHOLOGY | | + + + + + + | CBC | Final Manual | | [facility] | | | COMMENTS | Differential Report. | | DEPARTMENT | | | | | | OF | | | | | | PATHOLOGY | | + + + + + + | DIFF | Dohle bodies | | [facility] | | | COMMENTS | | | DEPARTMENT | | | | | | OF | | | | | | PATHOLOGY | | + + + + + + + + | Specimen | + + | Blood - Blood | + + + + + | Narrative | Performed At | + + + | * Corrected 01/30/12 01:58: HILARIO COMMENTS, prev report: Slide | [facility] | | review pending. | DEPARTMENT OF | | | PATHOLOGY | + + + + + + + + | Performing | Address | City/State/Zipcode | Phone Number | | Organization | | | | + + + + + | [facility] DEPARTMENT OF | [address] | [place] [address] | | | PATHOLOGY | [address] | | | + + + + + CHOLESTEROL TOTAL, PLASMA (11/30/2011 12:06 AM PST) + + + + + + | Component | Value | Ref Range | Performed | Pathologist | | | | | At | Signature | + + + + + + | CHOLESTEROL | 159Comment: | <200 mg/dL | [facility] | | | (LAB) | Cholesterol Reference | | DEPARTMENT | | | | Range: | | OF | | | | Desirable: <200 | | PATHOLOGY | | | | Borderline | | | | | | High: 200 - 239 | | | | | | | | | | | | High: >=240 | | | | | | LDL Cholesterol | | | | | | Reference Range: | | | | | | | | | | | | Optimal: <100 | | | | | | Near Optimal: | | | | | | 100 - 129 | | | | | | Borderline High: | | | | | | 130 - 159 | | | | | | High: | | | | | | 160 - 189 | | | | | | Very High: | | | | | | >=190 | | | | + + + + + + + + | Specimen | + + | Blood - Blood | + + + + + + + | Performing | Address | City/State/Zipcode | Phone Number | | Organization | | | | + + + + + | [facility] DEPARTMENT OF | [address] | [place] [address] | | | PATHOLOGY | [address] | | | + + + + + BILIRUBIN DIRECT (11/30/2011 12:06 AM PST) + +-------+ + + + | Component | Value | Ref Range | Performed | Pathologist | | | | | At | Signature | + +-------+ + + + | BILIRUBIN | < 0.1 | <0.4 mg/dL | [facility] | | | DIRECT | | | DEPARTMENT | | | | | | OF | | | | | | PATHOLOGY | | + +-------+ + + + + + | Specimen | + + | Blood - Blood | + + + + + + + | Performing | Address | City/State/Zipcode | Phone Number | | Organization | | | | + + + + + | [facility] | [address] | [place] [address] | | | PATHOLOGY | [address] | | | + + + + + PHOSPHORUS, PLASMA (11/30/2011 12:06 AM PST) + +-------+ + + + | Component | Value | Ref Range | Performed | Pathologist | | | | | At | Signature | + +-------+ + + + | PHOSPHORUS, | 3.1 | 2.4 - 4.7 mg/dL | [facility] | | | PLASMA | | | DEPARTMENT | | | (LAB) | | | OF | | | | | | PATHOLOGY | | + +-------+ + + + + + | Specimen | + + | Blood - Blood | + + + + + + + | Performing | Address | City/State/Zipcode | Phone Number | | Organization | | | | + + + + + | [facility] DEPARTMENT OF | [address] | [place] [address] | | | PATHOLOGY | [address] | | | + + + + + MAGNESIUM, PLASMA (11/30/2011 12:06 AM PST) + +-------+ + + + | Component | Value | Ref Range | Performed | Pathologist | | | | | At | Signature | + +-------+ + + + | MAGNESIUM,P | 1.8 | 1.8 - 2.5 mg/dL | [facility] | | | LASMA | | | DEPARTMENT | | | | | | OF | | | | | | PATHOLOGY | | + +-------+ + + + + + | Specimen | + + | Blood - Blood | + + + + + + + | Performing | Address | City/State/Zipcode | Phone Number | | Organization | | | | + + + + + | [facility] DEPARTMENT OF | [address] | [place] [address] | | | PATHOLOGY | [address] | | | + + + + + COMPLETE METABOLIC SET (NA,K,CL,CO2,BUN,CREAT,GLUC,CA,AST,ALT,BILI TOTAL,ALK PHOS,ALB,PROT TOTAL) (11/30/2011 12:06 AM PST) + + + + + + | Component | Value | Ref Range | Performed | Pathologist | | | | | At | Signature | + + + + + + | GLUCOSE, | 158 (H) | 60 - 99 mg/dL | [facility] | | | PLASMA | | | DEPARTMENT | | | (LAB) | | | OF | | | | | | PATHOLOGY | | + + + + + + | BUN, PLASMA | 14 | 6 - 20 mg/dL | [facility] | | | (LAB) | | | DEPARTMENT | | | | | | OF | | | | | | PATHOLOGY | | + + + + + + | CREATININE | 0.55 (L) | 0.60 - 1.10 | [facility] | | | PLASMA | | mg/dL | DEPARTMENT | | | (LAB) | | | OF | | | | | | PATHOLOGY | | + + + + + + | TOTAL | 5.6 (L) | 6.1 - 7.9 g/dL | [facility] | | | PROTEIN, | | | DEPARTMENT | | | PLASMA | | | OF | | | (LAB) | | | PATHOLOGY | | + + + + + + | ALBUMIN, | 2.9 (L) | 3.5 - 4.7 g/dL | [facility] | | | PLASMA | | | DEPARTMENT | | | (LAB) | | | OF | | | | | | PATHOLOGY | | + + + + + + | CALCIUM, | 8.3 (L) | 8.6 - 10.2 | [facility] | | | PLASMA | | mg/dL | DEPARTMENT | | | (LAB) | | | OF | | | | | | PATHOLOGY | | + + + + + + | BILIRUBIN | 0.4 | 0.3 - 1.2 mg/dL | [facility] | | | TOTAL | | | DEPARTMENT | | | | | | OF | | | | | | PATHOLOGY | | + + + + + + | ALK PHOS | 70 | 42 - 98 U/L | [facility] | | | | | | DEPARTMENT | | | | | | OF | | | | | | PATHOLOGY | | + + + + + + | AST(SGOT) | 12 (L) | 15 - 41 U/L | [facility] | | | | | | DEPARTMENT | | | | | | OF | | | | | | PATHOLOGY | | + + + + + + | SODIUM, | 138 | 134 - 143 | [facility] | | | PLASMA | | mmol/L | DEPARTMENT | | | (LAB) | | | OF | | | | | | PATHOLOGY | | + + + + + + | POTASSIUM, | 3.1 (L) | 3.4 - 5.0 | [facility] | | | PLASMA | | mmol/L | DEPARTMENT | | | (LAB) | | | OF | | | | | | PATHOLOGY | | + + + + + + | CHLORIDE, | 106 | 97 - 108 mmol/L | [facility] | | | PLASMA | | | DEPARTMENT | | | (LAB) | | | OF | | | | | | PATHOLOGY | | + + + + + + | TOTAL CO2, | 26 | 22 - 29 mmol/L | [facility] | | | PLASMA | | | DEPARTMENT | | | (LAB) | | | OF | | | | | | PATHOLOGY | | + + + + + + | ALT (SGPT) | 16 | 13 - 48 U/L | [facility] | | | | | | DEPARTMENT | | | | | | OF | | | | | | PATHOLOGY | | + + + + + + | ANION GAP | 6 | 4 - 11 mmol/L | [facility] | | | | | | DEPARTMENT | | | | | | OF | | | | | | PATHOLOGY | | + + + + + + | ANION | 8 | 4 - 11 mmol/L | [facility] | | | GAP(ALB | | | DEPARTMENT | | | CORRECTED) | | | OF | | | | | | PATHOLOGY | | + + + + + + + + | Specimen | + + | Blood - Blood | + + + + + + + | Performing | Address | City/State/Zipcode | Phone Number | | Organization | | | | + + + + + | [facility] DEPARTMENT | [phone] | [place] [address] | | | PATHOLOGY | [address] | | | + + + + + VRE (KATLYN) BY PCR (11/29/2011 8:23 PM PST) + + + + + + | Component | Value | Ref Range | Performed | Pathologist | | | | | At | Signature | + + + + + + | VRE BY PCR | Negative for Katlyn gene | | [facility] | | | | VRE | | DEPARTMENT | | | | | | OF | | | | | | PATHOLOGY | | + + + + + + + + | Specimen | + + | Swab - Rectum | + + + + + + + | Performing | Address | City/State/Zipcode | Phone Number | | Organization | | | | + + + + + | [facility] | [phone] | [place] [address] | | | PATHOLOGY | [address] | | | + + + + + CAPILLARY BLOOD GLUCOSE, POC (11/29/2011 11:14 AM PST) + +---------+ + + + | Component | Value | Ref Range | Performed | Pathologist | | | | | At | Signature | + +---------+ + + + | BLOOD | 138 (H) | 60 - 99 mg/dL | [facility] - | | | GLUCOSE, | | | [facility] | | | POC | | | [facility] | | | | | | OF CARE | | | | | | TESTS | | + +---------+ + + + + + | Specimen | + + | | + + + + + + + | Performing | Address | City/State/Zipcode | Phone Number | | Organization | | | | + + + + + | [facility] | [address] | [place], [place] | | | [facility] | [address] | [phone] | | | TESTS | | | | + + + + + CAPILLARY BLOOD GLUCOSE, POC (11/29/2011 7:46 AM PST) + +---------+ + + + | Component | Value | Ref Range | Performed | Pathologist | | | | | At | Signature | + +---------+ + + + | BLOOD | 153 (H) | 60 - 99 mg/dL | [facility] - | | | GLUCOSE, | | | [facility] | | | POC | | | [facility] | | | | | | OF CARE | | | | | | TESTS | | + +---------+ + + + + + | Specimen | + + | | + + + + + + + | Performing | Address | City/State/Zipcode | Phone Number | | Organization | | | | + + + + + | [facility] | [address] | [place], [place] | | | [facility] | [address] | [phone] | | | TESTS | | | | + + + + + EXTENDED DIFF (11/29/2011 12:31 AM PST) + +--------+ + + + | Component | Value | Ref Range | Performed | Pathologist | | | | | At | Signature | + +--------+ + + + | METAMYELOCY | 0 | % | [facility] | | | [facility] % | | | DEPARTMENT | | | | | | OF | | | | | | PATHOLOGY | | + +--------+ + + + | MYELOCYTES | 0 | % | [facility] | | | % | | | DEPARTMENT | | | | | | OF | | | | | | PATHOLOGY | | + +--------+ + + + | NRBC | 0 | <1 /100 WBC | [facility] | | | | | | DEPARTMENT | | | | | | OF | | | | | | PATHOLOGY | | + +--------+ + + + | BANDS # | 0.9 | 0.0 - 1.1 | [facility] | | | | | | DEPARTMENT | | | | | | OF | | | | | | PATHOLOGY | | + +--------+ + + + | BANDS % | 15 (H) | <11 % | [facility] | | | | | | DEPARTMENT | | | | | | OF | | | | | | PATHOLOGY | | + +--------+ + + + | ATYPICAL | 0 | | [facility] | | | CELL % | | | DEPARTMENT | | | | | | OF | | | | | | PATHOLOGY | | + +--------+ + + + | PROMYELOCYT | 0 | % | [facility] | | | ES % | | | DEPARTMENT | | | | | | OF | | | | | | PATHOLOGY | | + +--------+ + + + + + | Specimen | + + | | + + + + + | Narrative | Performed At | + + + | * Corrected 11/29/11 01:47: RACHAELNEL COMMENTS, prev report: Slide | [facility] | | review pending. | DEPARTMENT OF | | | PATHOLOGY | + + + + + + + + | Performing | Address | City/State/Zipcode | Phone Number | | Organization | | | | + + + + + | [facility] DEPARTMENT OF | [address] | [place] [address] | | | PATHOLOGY | [address] | | | + + + + + DIFFERENTIAL (11/29/2011 12:31 AM PST) + +---------+ + + + | Component | Value | Ref Range | Performed | Pathologist | | | | | At | Signature | + +---------+ + + + | NEUTROPHIL | 70 | 50 - 70 % | [facility] | | | % | | | DEPARTMENT | | | | | | OF | | | | | | PATHOLOGY | | + +---------+ + + + | LYMPHOCYTE | 5 (L) | 18 - 42 % | [facility] | | | % | | | DEPARTMENT | | | | | | OF | | | | | | PATHOLOGY | | + +---------+ + + + | MONOCYTE % | 10 (H) | 2 - 8 % | [facility] | | | | | | DEPARTMENT | | | | | | OF | | | | | | PATHOLOGY | | + +---------+ + + + | EOS % | 0 (L) | 1 - 3 % | [facility] | | | | | | DEPARTMENT | | | | | | OF | | | | | | PATHOLOGY | | + +---------+ + + + | BASO % | 0 | <3 % | [facility] | | | | | | DEPARTMENT | | | | | | OF | | | | | | PATHOLOGY | | + +---------+ + + + | NEUTROPHIL | 4.1 | 1.8 - 7.7 K/cu | [facility] | | | # | | mm | DEPARTMENT | | | | | | OF | | | | | | PATHOLOGY | | + +---------+ + + + | LYMPHOCYTE | 0.3 (L) | 1.0 - 4.8 K/cu | [facility] | | | # | | mm | DEPARTMENT | | | | | | OF | | | | | | PATHOLOGY | | + +---------+ + + + | MONOCYTE # | 0.6 | <0.9 K/cu mm | [facility] | | | | | | DEPARTMENT | | | | | | OF | | | | | | PATHOLOGY | | + +---------+ + + + | EOS # | 0.0 | <0.6 K/cu mm | [facility] | | | | | | DEPARTMENT | | | | | | OF | | | | | | PATHOLOGY | | + +---------+ + + + | BASO # | 0.0 | <0.3 | [facility] | | | | | | DEPARTMENT | | | | | | OF | | | | | | PATHOLOGY | | + +---------+ + + + + + | Specimen | + + | | + + + + + | Narrative | Performed At | + + + | * Corrected 11/29/11 01:47: HILARIO COMMENTS, prev report: Slide | [facility] | | review pending. | DEPARTMENT OF | | | PATHOLOGY | + + + + + + + + | Performing | Address | City/State/Zipcode | Phone Number | | Organization | | | | + + + + + | [facility] DEPARTMENT OF | [address] | [place] [address] | | | PATHOLOGY | [address] | | | + + + + + URIC ACID, PLASMA (11/29/2011 12:31 AM PST) + +-------+ + + + | Component | Value | Ref Range | Performed | Pathologist | | | | | At | Signature | + +-------+ + + + | URIC ACID, | 2.9 | 2.5 - 6.2 mg/dL | [facility] | | | PLASMA | | | DEPARTMENT | | | (LAB) | | | OF | | | | | | PATHOLOGY | | + +-------+ + + + + + | Specimen | + + | Blood - Blood | + + + + + + + | Performing | Address | City/State/Zipcode | Phone Number | | Organization | | | | + + + + + | [facility] | [address] | [place] [address] | | | PATHOLOGY | [address] | | | + + + + + LDH TOTAL, PLASMA (11/29/2011 12:31 AM PST) + +-------+ + + + | Component | Value | Ref Range | Performed | Pathologist | | | | | At | Signature | + +-------+ + + + | LD TOTAL, | 124 | 110 - 205 U/L | [facility] | | | PLASMA | | | DEPARTMENT | | | | | | OF | | | | | | PATHOLOGY | | + +-------+ + + + + + | Specimen | + + | Blood - Blood | + + + + + + + | Performing | Address | City/State/Zipcode | Phone Number | | Organization | | | | + + + + + | [facility] DEPARTMENT OF | [address] | [place] [address] | | | PATHOLOGY | [address] | | | + + + + + CBC, WITH DIFFERENTIAL (11/29/2011 12:31 AM PST) + + + + + + | Component | Value | Ref Range | Performed | Pathologist | | | | | At | Signature | + + + + + + | WHITE CELL | 5.9 | 4.4 - 11.0 K/cu | [facility] | | | COUNT | | mm | DEPARTMENT | | | | | | OF | | | | | | PATHOLOGY | | + + + + + + | RED CELL | 3.34 (L) | 4.00 - 5.20 | [facility] | | | COUNT | | M/cu mm | DEPARTMENT | | | | | | OF | | | | | | PATHOLOGY | | + + + + + + | HEMOGLOBIN | 9.2 (L) | 12.0 - 16.0 | [facility] | | | | | g/dL | DEPARTMENT | | | | | | OF | | | | | | PATHOLOGY | | + + + + + + | HEMATOCRIT | 27.1 (L) | 36.0 - 46.0 % | [facility] | | | | | | DEPARTMENT | | | | | | OF | | | | | | PATHOLOGY | | + + + + + + | MCV | 81.3 | 80.0 - 96.0 fL | [facility] | | | | | | DEPARTMENT | | | | | | OF | | | | | | PATHOLOGY | | + + + + + + | MCHC | 33.9 | 33.4 - 35.5 | [facility] | | | | | g/dL | DEPARTMENT | | | | | | OF | | | | | | PATHOLOGY | | + + + + + + | RDW | 14.1 | 11.5 - 15.0 % | [facility] | | | | | | DEPARTMENT | | | | | | OF | | | | | | PATHOLOGY | | + + + + + + | PLATELET | 79 (L) | 150 - 400 K/cu | [facility] | | | COUNT | | mm | DEPARTMENT | | | | | | OF | | | | | | PATHOLOGY | | + + + + + + | CBC | Final Manual | | [facility] | | | COMMENTS | Differential Report. | | DEPARTMENT | | | | | | OF | | | | | | PATHOLOGY | | + + + + + + | DIFF | Dohle bodies | | [facility] | | | COMMENTS | | | DEPARTMENT | | | | | | OF | | | | | | PATHOLOGY | | + + + + + + + + | Specimen | + + | Blood - Blood | + + + + + | Narrative | Performed At | + + + | * Corrected 11/29/11 01:47: HILARIO COMMENTS, prev report: Slide | [facility] | | review pending. | DEPARTMENT OF | | | PATHOLOGY | + + + + + + + + | Performing | Address | City/State/Zipcode | Phone Number | | Organization | | | | + + + + + | [facility]MENT [facility] | [address] | [place] [address] | | | PATHOLOGY | [address] | | | + + + + + PHOSPHORUS, PLASMA (11/29/2011 12:31 AM PST) + +---------+ + + + | Component | Value | Ref Range | Performed | Pathologist | | | | | At | Signature | + +---------+ + + + | PHOSPHORUS, | 2.3 (L) | 2.4 - 4.7 mg/dL | [facility] | | | PLASMA | | | DEPARTMENT | | | (LAB) | | | OF | | | | | | PATHOLOGY | | + +---------+ + + + + + | Specimen | + + | Blood - Blood | + + + + + + + | Performing | Address | City/State/Zipcode | Phone Number | | Organization | | | | + + + + + | [facility] | [address] | [place] [address] | | | PATHOLOGY | [address] | | | + + + + + MAGNESIUM, PLASMA (11/29/2011 12:31 AM PST) + +-------+ + + + | Component | Value | Ref Range | Performed | Pathologist | | | | | At | Signature | + +-------+ + + + | MAGNESIUM,P | 2.0 | 1.8 - 2.5 mg/dL | [facility] | | | LASMA | | | DEPARTMENT | | | | | | OF | | | | | | PATHOLOGY | | + +-------+ + + + + + | Specimen | + + | Blood - Blood | + + + + + + + | Performing | Address | City/State/Zipcode | Phone Number | | Organization | | | | + + + + + | [facility] DEPARTMENT OF | [address] | [place] [address] | | | PATHOLOGY | [address] | | | + + + + + COMPLETE METABOLIC SET (NA,K,CL,CO2,BUN,CREAT,GLUC,CA,AST,ALT,BILI TOTAL,ALK PHOS,ALB,PROT TOTAL) (11/29/2011 12:31 AM PST) + + + + + + | Component | Value | Ref Range | Performed | Pathologist | | | | | At | Signature | + + + + + + | GLUCOSE, | 172 (H) | 60 - 99 mg/dL | [facility] | | | PLASMA | | | DEPARTMENT | | | (LAB) | | | OF | | | | | | PATHOLOGY | | + + + + + + | BUN, PLASMA | 13 | 6 - 20 mg/dL | [facility] | | | (LAB) | | | DEPARTMENT | | | | | | OF | | | | | | PATHOLOGY | | + + + + + + | CREATININE | 0.51 (L) | 0.60 - 1.10 | [facility] | | | PLASMA | | mg/dL | DEPARTMENT | | | (LAB) | | | OF | | | | | | PATHOLOGY | | + + + + + + | TOTAL | 5.7 (L) | 6.1 - 7.9 g/dL | [facility] | | | PROTEIN, | | | DEPARTMENT | | | PLASMA | | | OF | | | (LAB) | | | PATHOLOGY | | + + + + + + | ALBUMIN, | 3.0 (L) | 3.5 - 4.7 g/dL | [facility] | | | PLASMA | | | DEPARTMENT | | | (LAB) | | | OF | | | | | | PATHOLOGY | | + + + + + + | CALCIUM, | 8.6 | 8.6 - 10.2 | [facility] | | | PLASMA | | mg/dL | DEPARTMENT | | | (LAB) | | | OF | | | | | | PATHOLOGY | | + + + + + + | BILIRUBIN | 0.5 | 0.3 - 1.2 mg/dL | [facility] | | | TOTAL | | | DEPARTMENT | | | | | | OF | | | | | | PATHOLOGY | | + + + + + + | ALK PHOS | 68 | 42 - 98 U/L | [facility] | | | | | | DEPARTMENT | | | | | | OF | | | | | | PATHOLOGY | | + + + + + + | AST(SGOT) | 16 | 15 - 41 U/L | [facility] | | | | | | DEPARTMENT | | | | | | OF | | | | | | PATHOLOGY | | + + + + + + | SODIUM, | 137 | 134 - 143 | [facility] | | | PLASMA | | mmol/L | DEPARTMENT | | | (LAB) | | | OF | | | | | | PATHOLOGY | | + + + + + + | POTASSIUM, | 3.2 (L) | 3.4 - 5.0 | [facility] | | | PLASMA | | mmol/L | DEPARTMENT | | | (LAB) | | | OF | | | | | | PATHOLOGY | | + + + + + + | CHLORIDE, | 105 | 97 - 108 mmol/L | [facility] | | | PLASMA | | | DEPARTMENT | | | (LAB) | | | OF | | | | | | PATHOLOGY | | + + + + + + | TOTAL CO2, | 25 | 22 - 29 mmol/L | [facility] | | | PLASMA | | | DEPARTMENT | | | (LAB) | | | OF | | | | | | PATHOLOGY | | + + + + + + | ALT (SGPT) | 17 | 13 - 48 U/L | [facility] | | | | | | DEPARTMENT | | | | | | OF | | | | | | PATHOLOGY | | + + + + + + | ANION GAP | 7 | 4 - 11 mmol/L | [facility] | | | | | | DEPARTMENT | | | | | | OF | | | | | | PATHOLOGY | | + + + + + + | ANION | 9 | 4 - 11 mmol/L | [facility] | | | GAP(ALB | | | DEPARTMENT | | | CORRECTED) | | | OF | | | | | | PATHOLOGY | | + + + + + + + + | Specimen | + + | Blood - Blood | + + + + + + + | Performing | Address | City/State/Zipcode | Phone Number | | Organization | | | | + + + + + | [facility] DEPARTMENT OF | [address] | [place] [address] | | | PATHOLOGY | [address] | | | + + + + + CAPILLARY BLOOD GLUCOSE, POC (11/29/2011 12:25 AM PST) + +---------+ + + + | Component | Value | Ref Range | Performed | Pathologist | | | | | At | Signature | + +---------+ + + + | BLOOD | 231 (H) | 60 - 99 mg/dL | [facility] - | | | GLUCOSE, | | | [facility] | | | POC | | | [place] | | | | | | OF CARE | | | | | | TESTS | | + +---------+ + + + + + | Specimen | + + | | + + + + + + + | Performing | Address | City/State/Zipcode | Phone Number | | Organization | | | | + + + + + | [facility] | [address] | [place] | | | [place] [facility] [place] | [facility] | [address] | | | TESTS | | | | + + + + + CAPILLARY BLOOD GLUCOSE, POC (11/28/2011 7:28 PM PST) + +---------+ + + + | Component | Value | Ref Range | Performed | Pathologist | | | | | At | Signature | + +---------+ + + + | BLOOD | 248 (H) | 60 - 99 mg/dL | [facility] - | | | GLUCOSE, | | | [facility] | | | POC | | | [place] | | | | | | OF CARE | | | | | | TESTS | | + +---------+ + + + + + | Specimen | + + | | + + + + + + + | Performing | Address | City/State/Zipcode | Phone Number | | Organization | | | | + + + + + | [facility] | [address] | [place], [place] | | | [place] [facility] | [address] | [address] | | | TESTS | | | | + + + + + CAPILLARY BLOOD GLUCOSE, POC (11/28/2011 4:17 PM PST) + +---------+ + + + | Component | Value | Ref Range | Performed | Pathologist | | | | | At | Signature | + +---------+ + + + | BLOOD | 275 (H) | 60 - 99 mg/dL | [facility] - | | | GLUCOSE, | | | [facility] | | | POC | | | [place] | | | | | | OF CARE | | | | | | TESTS | | + +---------+ + + + + + | Specimen | + + | | + + + + + + + | Performing | Address | City/State/Zipcode | Phone Number | | Organization | | | | + + + + + | [facility] | [address] | [place], [place] | | | [place] [facility] | [address] | [address] | | | TESTS | | | | + + + + + CAPILLARY BLOOD GLUCOSE, POC (11/28/2011 11:53 AM PST) + +---------+ + + + | Component | Value | Ref Range | Performed | Pathologist | | | | | At | Signature | + +---------+ + + + | BLOOD | 221 (H) | 60 - 99 mg/dL | [facility] | | | GLUCOSE, | | | [facility] | | | POC | | | [place] | | | | | | OF CARE | | | | | | TESTS | | + +---------+ + + + + + | Specimen | + + | | + + + + + + + | Performing | Address | City/State/Zipcode | Phone Number | | Organization | | | | + + + + + | [facility] | [address] | [place], [place] | | | [place] | [address] | [address] | | | TESTS | | | | + + + + + CAPILLARY BLOOD GLUCOSE, POC (11/28/2011 7:25 AM PST) + +---------+ + + + | Component | Value | Ref Range | Performed | Pathologist | | | | | At | Signature | + +---------+ + + + | BLOOD | 140 (H) | 60 - 99 mg/dL | [facility] - | | | GLUCOSE, | | | [facility] | | | POC | | | [place] | | | | | | OF CARE | | | | | | TESTS | | + +---------+ + + + + + | Specimen | + + | | + + + + + + + | Performing | Address | City/State/Zipcode | Phone Number | | Organization | | | | + + + + + | [facility] | [address] | [place], [place] | | | [place] [facility] | [address] | [address] | | | TESTS | | | | + + + + + TYPE AND SCREEN (11/28/2011 2:08 AM PST) + + + + + + | Component | Value | Ref Range | Performed | Pathologist | | | | | At | Signature | + + + + + + | ABO GROUP | A | | [facility] | | | | | | DEPARTMENT | | | | | | OF | | | | | | PATHOLOGY | | + + + + + + | RH TYPE | Positive | | [facility] | | | | | | DEPARTMENT | | | | | | OF | | | | | | PATHOLOGY | | + + + + + + | Antibody | Negative | | [facility] | | | Screen | | | DEPARTMENT | | | | | | OF | | | | | | PATHOLOGY | | + + + + + + + + | Specimen | + + | Blood - Blood | + + + + + + + | Performing | Address | City/State/Zipcode | Phone Number | | Organization | | | | + + + + + | [facility] DEPARTMENT | [address] | [place] [address] | | | PATHOLOGY | [address] | | | + + + + + PRODUCT- RED CELLS LEUKOREDUCED (11/28/2011 2:07 AM PST) + + + + + + | Component | Value | Ref Range | Performed | Pathologist | | | | | At | Signature | + + + + + + | PRODUCT | -1 RED BLOOD | | [facility] | | | DESCRIPTION | CELLS,ADENINE-SALINE | | DEPARTMENT | | | | ADDED,LEUKOCYTES REDUCED | | OF | | | | IRRADIATED | | PATHOLOGY | | + + + + + + | PRODUCT | [id number] | | [facility] | | | UNIT # | | | DEPARTMENT | | | | | | OF | | | | | | PATHOLOGY | | + + + + + + | UNIT ABO | A | | [facility] | | | | | | DEPARTMENT | | | | | | OF | | | | | | PATHOLOGY | | + + + + + + | UNIT RH | POS | | [facility] | | | | | | DEPARTMENT | | | | | | OF | | | | | | PATHOLOGY | | + + + + + + | STATUS OF | Presumed Transfused | | [facility] | | | UNIT | | | DEPARTMENT | | | | | | OF | | | | | | PATHOLOGY | | + + + + + + | BLOOD | [id number] | | [facility] | | | PRODUCT | | | DEPARTMENT | | | CODE | | | OF | | | | | | PATHOLOGY | | + + + + + + + + | Specimen | + + | | + + + + + + + | Performing | Address | City/State/Zipcode | Phone Number | | Organization | | | | + + + + + | [facility] OF | [address] | [place] [address] | | | PATHOLOGY | [address] | | | + + + + + PRODUCT- RED CELLS LEUKOREDUCED (11/28/2011 2:07 AM PST) + + + + + + | Component | Value | Ref Range | Performed | Pathologist | | | | | At | Signature | + + + + + + | PRODUCT | -1 RED BLOOD | | [facility] | | | DESCRIPTION | CELLS,ADENINE-SALINE | | DEPARTMENT | | | | ADDED,LEUKOCYTES REDUCED | | OF | | | | IRRADIATED | | PATHOLOGY | | + + + + + + | PRODUCT | [id number] | | [facility] | | | UNIT # | | | DEPARTMENT | | | | | | OF | | | | | | PATHOLOGY | | + + + + + + | UNIT ABO | A | | [facility] | | | | | | DEPARTMENT | | | | | | OF | | | | | | PATHOLOGY | | + + + + + + | UNIT RH | POS | | [facility] | | | | | | DEPARTMENT | | | | | | OF | | | | | | PATHOLOGY | | + + + + + + | STATUS OF | Presumed Transfused | | [facility] | | | UNIT | | | DEPARTMENT | | | | | | OF | | | | | | PATHOLOGY | | + + + + + + | BLOOD | [id number] | | [facility] | | | PRODUCT | | | DEPARTMENT | | | CODE | | | OF | | | | | | PATHOLOGY | | + + + + + + + + | Specimen | + + | | + + + + + + + | Performing | Address | City/State/Zipcode | Phone Number | | Organization | | | | + + + + + | [facility] DEPARTMENT | [address] | [place] [address] | | | PATHOLOGY | [address] | | | + + + + + CAPILLARY BLOOD GLUCOSE, POC (11/28/2011 12:24 AM PST) + +---------+ + + + | Component | Value | Ref Range | Performed | Pathologist | | | | | At | Signature | + +---------+ + + + | BLOOD | 187 (H) | 60 - 99 mg/dL | [facility] - | | | GLUCOSE, | | | [facility] | | | POC | | | [place] [facility] | | | | | | OF CARE | | | | | | TESTS | | + +---------+ + + + + + | Specimen | + + | | + + + + + + + | Performing | Address | City/State/Zipcode | Phone Number | | Organization | | | | + + + + + | [facility] | [address] | [place], [place] | | | [place] | [address] | [address] | | | TESTS | | | | + + + + + EXTENDED DIFF (11/28/2011 12:14 AM PST) + +--------+ + + + | Component | Value | Ref Range | Performed | Pathologist | | | | | At | Signature | + +--------+ + + + | METAMYELOCY | 3 | % | [facility] | | | MICHEAL % | | | DEPARTMENT | | | | | | OF | | | | | | PATHOLOGY | | + +--------+ + + + | MYELOCYTES | 2 | % | [facility] | | | % | | | DEPARTMENT | | | | | | OF | | | | | | PATHOLOGY | | + +--------+ + + + | NRBC | 0 | <1 /100 WBC | [facility] | | | | | | DEPARTMENT | | | | | | OF | | | | | | PATHOLOGY | | + +--------+ + + + | BANDS # | 0.6 | 0.0 - 1.1 | [facility] | | | | | | DEPARTMENT | | | | | | OF | | | | | | PATHOLOGY | | + +--------+ + + + | BANDS % | 35 (H) | <11 % | [facility] | | | | | | DEPARTMENT | | | | | | OF | | | | | | PATHOLOGY | | + +--------+ + + + | ATYPICAL | 0 | | [facility] | | | CELL % | | | DEPARTMENT | | | | | | OF | | | | | | PATHOLOGY | | + +--------+ + + + | PROMYELOCYT | 0 | % | [facility] | | | ES % | | | DEPARTMENT | | | | | | OF | | | | | | PATHOLOGY | | + +--------+ + + + + + | Specimen | + + | | + + + + + | Narrative | Performed At | + + + | * Corrected 11/28/11 04:05: HILARIO COMMENTS, prev report: Slide | [facility] | | review pending. | DEPARTMENT OF | | | PATHOLOGY | + + + + + + + + | Performing | Address | City/State/Zipcode | Phone Number | | Organization | | | | + + + + + | [facility] DEPARTMENT OF | [address] | [place] [address] | | | PATHOLOGY | [address] | | | + + + + + DIFFERENTIAL (11/28/2011 12:14 AM PST) + +---------+ + + + | Component | Value | Ref Range | Performed | Pathologist | | | | | At | Signature | + +---------+ + + + | NEUTROPHIL | 39 (L) | 50 - 70 % | [facility] | | | % | | | DEPARTMENT | | | | | | OF | | | | | | PATHOLOGY | | + +---------+ + + + | LYMPHOCYTE | 8 (L) | 18 - 42 % | [facility] | | | % | | | DEPARTMENT | | | | | | OF | | | | | | PATHOLOGY | | + +---------+ + + + | MONOCYTE % | 13 (H) | 2 - 8 % | [facility] | | | | | | DEPARTMENT | | | | | | OF | | | | | | PATHOLOGY | | + +---------+ + + + | EOS % | 0 (L) | 1 - 3 % | [facility] | | | | | | DEPARTMENT | | | | | | OF | | | | | | PATHOLOGY | | + +---------+ + + + | BASO % | 0 | <3 % | [facility] | | | | | | DEPARTMENT | | | | | | OF | | | | | | PATHOLOGY | | + +---------+ + + + | NEUTROPHIL | 0.7 (L) | 1.8 - 7.7 K/cu | [facility] | | | # | | mm | DEPARTMENT | | | | | | OF | | | | | | PATHOLOGY | | + +---------+ + + + | LYMPHOCYTE | 0.1 (L) | 1.0 - 4.8 K/cu | [facility] | | | # | | mm | DEPARTMENT | | | | | | OF | | | | | | PATHOLOGY | | + +---------+ + + + | MONOCYTE # | 0.2 | <0.9 K/cu mm | [facility] | | | | | | DEPARTMENT | | | | | | OF | | | | | | PATHOLOGY | | + +---------+ + + + | EOS # | 0.0 | <0.6 K/cu mm | [facility] | | | | | | DEPARTMENT | | | | | | OF | | | | | | PATHOLOGY | | + +---------+ + + + | BASO # | 0.0 | <0.3 | [facility] | | | | | | DEPARTMENT | | | | | | OF | | | | | | PATHOLOGY | | + +---------+ + + + + + | Specimen | + + | | + + + + + | Narrative | Performed At | + + + | * Corrected 11/28/11 04:05: HILARIO COMMENTS, prev report: Slide | [facility] | | review pending. | DEPARTMENT OF | | | PATHOLOGY | + + + + + + + + | Performing | Address | City/State/Zipcode | Phone Number | | Organization | | | | + + + + + | [facility] DEPARTMENT OF | [address] | [place] [address] | | | PATHOLOGY | [address] | | | + + + + + URIC ACID, PLASMA (11/28/2011 12:14 AM PST) + +-------+ + + + | Component | Value | Ref Range | Performed | Pathologist | | | | | At | Signature | + +-------+ + + + | URIC ACID, | 3.0 | 2.5 - 6.2 mg/dL | [facility] | | | PLASMA | | | DEPARTMENT | | | (LAB) | | | OF | | | | | | PATHOLOGY | | + +-------+ + + + + + | Specimen | + + | Blood - Blood | + + + + + + + | Performing | Address | City/State/Zipcode | Phone Number | | Organization | | | | + + + + + | [facility] DEPARTMENT OF | [id number] | [place] [address] | | | PATHOLOGY | [address] | | | + + + + + LDH TOTAL, PLASMA (11/28/2011 12:14 AM PST) + +---------+ + + + | Component | Value | Ref Range | Performed | Pathologist | | | | | At | Signature | + +---------+ + + + | LD TOTAL, | 103 (L) | 110 - 205 U/L | [facility] | | | PLASMA | | | DEPARTMENT | | | | | | OF | | | | | | PATHOLOGY | | + +---------+ + + + + + | Specimen | + + | Blood - Blood | + + + + + + + | Performing | Address | City/State/Zipcode | Phone Number | | Organization | | | | + + + + + | [facility] | [id number] | [place] [address] | | | PATHOLOGY | [address] | | | + + + + + CBC, WITH DIFFERENTIAL (11/28/2011 12:14 AM PST) + + + + + + | Component | Value | Ref Range | Performed | Pathologist | | | | | At | Signature | + + + + + + | WHITE CELL | 1.8 (L) | 4.4 - 11.0 K/cu | [facility] | | | COUNT | | mm | DEPARTMENT | | | | | | OF | | | | | | PATHOLOGY | | + + + + + + | RED CELL | 2.78 (L) | 4.00 - 5.20 | [facility] | | | COUNT | | M/cu mm | DEPARTMENT | | | | | | OF | | | | | | PATHOLOGY | | + + + + + + | HEMOGLOBIN | 7.8 (L) | 12.0 - 16.0 | [facility] | | | | | g/dL | DEPARTMENT | | | | | | OF | | | | | | PATHOLOGY | | + + + + + + | HEMATOCRIT | 22.0 (L) | 36.0 - 46.0 % | [facility] | | | | | | DEPARTMENT | | | | | | OF | | | | | | PATHOLOGY | | + + + + + + | MCV | 79.2 (L) | 80.0 - 96.0 fL | [facility] | | | | | | DEPARTMENT | | | | | | OF | | | | | | PATHOLOGY | | + + + + + + | MCHC | 35.4 | 33.4 - 35.5 | [facility] | | | | | g/dL | DEPARTMENT | | | | | | OF | | | | | | PATHOLOGY | | + + + + + + | RDW | 13.9 | 11.5 - 15.0 % | [facility] | | | | | | DEPARTMENT | | | | | | OF | | | | | | PATHOLOGY | | + + + + + + | PLATELET | 83 (L) | 150 - 400 K/cu | [facility] | | | COUNT | | mm | DEPARTMENT | | | | | | OF | | | | | | PATHOLOGY | | + + + + + + | CBC | Final Manual | | [facility] | | | COMMENTS | Differential Report. | | DEPARTMENT | | | | | | OF | | | | | | PATHOLOGY | | + + + + + + | DIFF | Dohle bodies | | [facility] | | | COMMENTS | | | DEPARTMENT | | | | | | OF | | | | | | PATHOLOGY | | + + + + + + + + | Specimen | + + | Blood - Blood | + + + + + | Narrative | Performed At | + + + | * Corrected 11/28/11 04:05: HILARIO STILL, prev report: Slide | [facility] | | review pending. | DEPARTMENT OF | | | PATHOLOGY | + + + + + + + + | Performing | Address | City/State/Zipcode | Phone Number | | Organization | | | | + + + + + | [facility] DEPARTMENT OF | [address] | [place] [address] | | | PATHOLOGY | [address] | | | + + + + + PHOSPHORUS, PLASMA (11/28/2011 12:14 AM PST) + +-------+ + + + | Component | Value | Ref Range | Performed | Pathologist | | | | | At | Signature | + +-------+ + + + | PHOSPHORUS, | 2.7 | 2.4 - 4.7 mg/dL | [facility] | | | PLASMA | | | DEPARTMENT | | | (LAB) | | | OF | | | | | | PATHOLOGY | | + +-------+ + + + + + | Specimen | + + | Blood - Blood | + + + + + + + | Performing | Address | City/State/Zipcode | Phone Number | | Organization | | | | + + + + + | [facility] DE[facility]MENT [facility] | [id number] | [place] [address] | | | PATHOLOGY | [address] | | | + + + + + MAGNESIUM, PLASMA (11/28/2011 12:14 AM PST) + +-------+ + + + | Component | Value | Ref Range | Performed | Pathologist | | | | | At | Signature | + +-------+ + + + | MAGNESIUM,P | 2.2 | 1.8 - 2.5 mg/dL | [facility] | | | LASMA | | | DEPARTMENT | | | | | | OF | | | | | | PATHOLOGY | | + +-------+ + + + + + | Specimen | + + | Blood - Blood | + + + + + + + | Performing | Address | City/State/Zipcode | Phone Number | | Organization | | | | + + + + + | [facility] DEPARTMENT OF | [phone] | [place] [address] | | | PATHOLOGY | [address] | | | + + + + + COMPLETE METABOLIC SET (NA,K,CL,CO2,BUN,CREAT,GLUC,CA,AST,ALT,BILI TOTAL,ALK PHOS,ALB,PROT TOTAL) (11/28/2011 12:14 AM PST) + +---------+ + + + | Component | Value | Ref Range | Performed | Pathologist | | | | | At | Signature | + +---------+ + + + | GLUCOSE, | 171 (H) | 60 - 99 mg/dL | [facility] | | | PLASMA | | | DEPARTMENT | | | (LAB) | | | OF | | | | | | PATHOLOGY | | + +---------+ + + + | BUN, PLASMA | 17 | 6 - 20 mg/dL | [facility] | | | (LAB) | | | DEPARTMENT | | | | | | OF | | | | | | PATHOLOGY | | + +---------+ + + + | CREATININE | 0.64 | 0.60 - 1.10 | [facility] | | | PLASMA | | mg/dL | DEPARTMENT | | | (LAB) | | | OF | | | | | | PATHOLOGY | | + +---------+ + + + | TOTAL | 6.1 | 6.1 - 7.9 g/dL | [facility] | | | PROTEIN, | | | DEPARTMENT | | | PLASMA | | | OF | | | (LAB) | | | PATHOLOGY | | + +---------+ + + + | ALBUMIN, | 3.1 (L) | 3.5 - 4.7 g/dL | [facility] | | | PLASMA | | | DEPARTMENT | | | (LAB) | | | OF | | | | | | PATHOLOGY | | + +---------+ + + + | CALCIUM, | 8.7 | 8.6 - 10.2 | [facility] | | | PLASMA | | mg/dL | DEPARTMENT | | | (LAB) | | | OF | | | | | | PATHOLOGY | | + +---------+ + + + | BILIRUBIN | 0.5 | 0.3 - 1.2 mg/dL | [facility] | | | TOTAL | | | DEPARTMENT | | | | | | OF | | | | | | PATHOLOGY | | + +---------+ + + + | ALK PHOS | 69 | 42 - 98 U/L | [facility] | | | | | | DEPARTMENT | | | | | | OF | | | | | | PATHOLOGY | | + +---------+ + + + | AST(SGOT) | 12 (L) | 15 - 41 U/L | [facility] | | | | | | DEPARTMENT | | | | | | OF | | | | | | PATHOLOGY | | + +---------+ + + + | SODIUM, | 137 | 134 - 143 | [facility] | | | PLASMA | | mmol/L | DEPARTMENT | | | (LAB) | | | OF | | | | | | PATHOLOGY | | + +---------+ + + + | POTASSIUM, | 3.9 | 3.4 - 5.0 | [facility] | | | PLASMA | | mmol/L | DEPARTMENT | | | (LAB) | | | OF | | | | | | PATHOLOGY | | + +---------+ + + + | CHLORIDE, | 105 | 97 - 108 mmol/L | [facility] | | | PLASMA | | | DEPARTMENT | | | (LAB) | | | OF | | | | | | PATHOLOGY | | + +---------+ + + + | TOTAL CO2, | 26 | 22 - 29 mmol/L | [facility] | | | PLASMA | | | DEPARTMENT | | | (LAB) | | | OF | | | | | | PATHOLOGY | | + +---------+ + + + | ALT (SGPT) | 17 | 13 - 48 U/L | [facility] | | | | | | DEPARTMENT | | | | | | OF | | | | | | PATHOLOGY | | + +---------+ + + + | ANION GAP | 6 | 4 - 11 mmol/L | [facility] | | | | | | DEPARTMENT | | | | | | OF | | | | | | PATHOLOGY | | + +---------+ + + + | ANION | 8 | 4 - 11 mmol/L | [facility] | | | GAP(ALB | | | DEPARTMENT | | | CORRECTED) | | | OF | | | | | | PATHOLOGY | | + +---------+ + + + + + | Specimen | + + | Blood - Blood | + + + + + + + | Performing | Address | City/State/Zipcode | Phone Number | | Organization | | | | + + + + + | [facility] DEPARTMENT | [address] | [place] [address] | | | PATHOLOGY | [address] | | | + + + + + VANCOMYCIN, TROUGH (11/28/2011 12:14 AM PST) + +-------+ + + + | Component | Value | Ref Range | Performed | Pathologist | | | | | At | Signature | + +-------+ + + + | VANCOMYCIN, | 7.5 | 5.0 - 15.0 | [facility] | | | TROUGH | | ug/mL | DEPARTMENT | | | | | | OF | | | | | | PATHOLOGY | | + +-------+ + + + + + | Specimen | + + | Blood - Blood | + + + + + + + | Performing | Address | City/State/Zipcode | Phone Number | | Organization | | | | + + + + + | [facility] | [address] | [place] [address] | | | PATHOLOGY | [address] | | | + + + + + CAPILLARY BLOOD GLUCOSE, POC (11/27/2011 7:12 PM PST) + +---------+ + + + | Component | Value | Ref Range | Performed | Pathologist | | | | | At | Signature | + +---------+ + + + | BLOOD | 211 (H) | 60 - 99 mg/dL | [facility] - | | | GLUCOSE, | | | [facility] | | | POC | | | [facility] | | | | | | OF CARE | | | | | | TESTS | | + +---------+ + + + + + | Specimen | + + | | + + + + + + + | Performing | Address | City/State/Zipcode | Phone Number | | Organization | | | | + + + + + | [facility] | [address] | [place], [place] | | | [facility] [facility] [place] | [address] | [address] | | | TESTS | | | | + + + + + C. DIFFICILE PCR (11/27/2011 6:18 PM PST) + + + + + + | Component | Value | Ref Range | Performed | Pathologist | | | | | At | Signature | + + + + + + | C. | Negative by PCRComment: | | [facility] | | | DIFFICILE | Reference Range = | | DEPARTMENT | | | PCR | Negative | | OF | | | | | | PATHOLOGY | | + + + + + + + + | Specimen | + + | | + + + + + + + | Performing | Address | City/State/Zipcode | Phone Number | | Organization | | | | + + + + + | [facility] DEPARTMENT OF | [address] | [place] [address] | | | PATHOLOGY | [address] | | | + + + + + C. DIFFICILE TOXIN (11/27/2011 6:18 PM PST) + + + + + + | Component | Value | Ref Range | Performed | Pathologist | | | | | At | Signature | + + + + + + | C. | Indeterminate; to be | | [facility] | | | DIFFICILE | confirmed by | | DEPARTMENT | | | TOXIN | PCR.Comment: | | OF | | | | Reference Range: | | PATHOLOGY | | | | Negative | | | | + + + + + + + + | Specimen | + + | Stool - Stool | + + + + + + + | Performing | Address | City/State/Zipcode | Phone Number | | Organization | | | | + + + + + | [facility] | [address] | [place] [address] | | | PATHOLOGY | [address] | | | + + + + + CAPILLARY BLOOD GLUCOSE, POC (11/27/2011 3:16 PM PST) + +---------+ + + + | Component | Value | Ref Range | Performed | Pathologist | | | | | At | Signature | + +---------+ + + + | BLOOD | 213 (H) | 60 - 99 mg/dL | [facility] - | | | GLUCOSE, | | | [facility] | | | POC | | | [facility] | | | | | | OF CARE | | | | | | TESTS | | + +---------+ + + + + + | Specimen | + + | | + + + + + + + | Performing | Address | City/State/Zipcode | Phone Number | | Organization | | | | + + + + + | [facility] | [address] | [place], [place] | | | [facility] | [address] | [address] | | | TESTS | | | | + + + + + CAPILLARY BLOOD GLUCOSE, POC (11/27/2011 11:12 AM PST) + +---------+ + + + | Component | Value | Ref Range | Performed | Pathologist | | | | | At | Signature | + +---------+ + + + | BLOOD | 234 (H) | 60 - 99 mg/dL | [facility] - | | | GLUCOSE, | | | [facility] | | | POC | | | [facility] | | | | | | OF CARE | | | | | | TESTS | | + +---------+ + + + + + | Specimen | + + | | + + + + + + + | Performing | Address | City/State/Zipcode | Phone Number | | Organization | | | | + + + + + | [facility] | [address] | [place], [place] | | | [facility] | [address] | [address] | | | TESTS | | | | + + + + + CAPILLARY BLOOD GLUCOSE, POC (11/27/2011 6:45 AM PST) + +---------+ + + + | Component | Value | Ref Range | Performed | Pathologist | | | | | At | Signature | + +---------+ + + + | BLOOD | 125 (H) | 60 - 99 mg/dL | [facility] - | | | GLUCOSE, | | | [facility] | | | POC | | | [facility] | | | | | | OF CARE | | | | | | TESTS | | + +---------+ + + + + + | Specimen | + + | | + + + + + + + | Performing | Address | City/State/Zipcode | Phone Number | | Organization | | | | + + + + + | [facility] | [address] | [place], [place] | | | [facility] | [address] | [address] | | | TESTS | | | | + + + + + LDH TOTAL, PLASMA (11/27/2011 12:16 AM PST) + +---------+ + + + | Component | Value | Ref Range | Performed | Pathologist | | | | | At | Signature | + +---------+ + + + | LD TOTAL, | 104 (L) | 110 - 205 U/L | [facility] | | | PLASMA | | | DEPARTMENT | | | | | | OF | | | | | | PATHOLOGY | | + +---------+ + + + + + | Specimen | + + | | + + + + + + + | Performing | Address | City/State/Zipcode | Phone Number | | Organization | | | | + + + + + | [facility] DEPARTMENT OF | [address] | [place] [address] | | | PATHOLOGY | [address] | | | + + + + + URIC ACID, PLASMA (11/27/2011 12:16 AM PST) + +-------+ + + + | Component | Value | Ref Range | Performed | Pathologist | | | | | At | Signature | + +-------+ + + + | URIC ACID, | 2.7 | 2.5 - 6.2 mg/dL | [facility] | | | PLASMA | | | DEPARTMENT | | | (LAB) | | | OF | | | | | | PATHOLOGY | | + +-------+ + + + + + | Specimen | + + | Blood - Blood | + + + + + + + | Performing | Address | City/State/Zipcode | Phone Number | | Organization | | | | + + + + + | [facility] DEPARTMENT OF | [address] | [place] [address] | | | PATHOLOGY | [address] | | | + + + + + LDH TOTAL, PLASMA (11/27/2011 12:16 AM PST) + + + + + + | Component | Value | Ref Range | Performed | Pathologist | | | | | At | Signature | + + + + + + | LD TOTAL, | Combined. | 110 - 205 U/L | [facility] | | | PLASMA | | | DEPARTMENT | | | | | | OF | | | | | | PATHOLOGY | | + + + + + + | LD CMNT | Combined. | | [facility] | | | | | | DEPARTMENT | | | | | | OF | | | | | | PATHOLOGY | | + + + + + + + + | Specimen | + + | Blood - Blood | + + + + + + + | Performing | Address | City/State/Zipcode | Phone Number | | Organization | | | | + + + + + | [facility] | [address] | [place] [address] | | | PATHOLOGY | [address] | | | + + + + + ORALIA WITH DIFFERENTIAL (11/27/2011 12:16 AM PST) + + + + + + | Component | Value | Ref Range | Performed | Pathologist | | | | | At | Signature | + + + + + + | WHITE CELL | 0.4 (*) | 4.4 - 11.0 K/cu | [facility] | | | COUNT | | mm | DEPARTMENT | | | | | | OF | | | | | | PATHOLOGY | | + + + + + + | RED CELL | 3.03 (L) | 4.00 - 5.20 | [facility] | | | COUNT | | M/cu mm | DEPARTMENT | | | | | | OF | | | | | | PATHOLOGY | | + + + + + + | HEMOGLOBIN | 8.2 (L) | 12.0 - 16.0 | [facility] | | | | | g/dL | DEPARTMENT | | | | | | OF | | | | | | PATHOLOGY | | + + + + + + | HEMATOCRIT | 24.1 (L) | 36.0 - 46.0 % | [facility] | | | | | | DEPARTMENT | | | | | | OF | | | | | | PATHOLOGY | | + + + + + + | MCV | 79.6 (L) | 80.0 - 96.0 fL | [facility] | | | | | | DEPARTMENT | | | | | | OF | | | | | | PATHOLOGY | | + + + + + + | MCHC | 34.1 | 33.4 - 35.5 | [facility] | | | | | g/dL | DEPARTMENT | | | | | | OF | | | | | | PATHOLOGY | | + + + + + + | RDW | 13.6 | 11.5 - 15.0 % | [facility] | | | | | | DEPARTMENT | | | | | | OF | | | | | | PATHOLOGY | | + + + + + + | PLATELET | 100 (L) | 150 - 400 K/cu | [facility] | | | COUNT | | mm | DEPARTMENT | | | | | | OF | | | | | | PATHOLOGY | | + + + + + + | CBC | Result(s) not phoned.WBC | | [facility] | | | COMMENTS | <=500; diff not | | DEPARTMENT | | | | performed. | | OF | | | | | | PATHOLOGY | | + + + + + + + + | Specimen | + + | Blood - Blood | + + + + + + + | Performing | Address | City/State/Zipcode | Phone Number | | Organization | | | | + + + + + | [facility] DEPARTMENT | [address] | [place] [address] | | | PATHOLOGY | [address] | | | + + + + + PHOSPHORUS, PLASMA (11/27/2011 12:16 AM PST) + +-------+ + + + | Component | Value | Ref Range | Performed | Pathologist | | | | | At | Signature | + +-------+ + + + | PHOSPHORUS, | 3.0 | 2.4 - 4.7 mg/dL | [facility] | | | PLASMA | | | DEPARTMENT | | | (LAB) | | | OF | | | | | | PATHOLOGY | | + +-------+ + + + + + | Specimen | + + | Blood - Blood | + + + + + + + | Performing | Address | City/State/Zipcode | Phone Number | | Organization | | | | + + + + + | [facility] | [address] | [place] [address] | | | PATHOLOGY | [address] | | | + + + + + MAGNESIUM, PLASMA (11/27/2011 12:16 AM PST) + +-------+ + + + | Component | Value | Ref Range | Performed | Pathologist | | | | | At | Signature | + +-------+ + + + | MAGNESIUM,P | 2.4 | 1.8 - 2.5 mg/dL | [facility] | | | LASMA | | | DEPARTMENT | | | | | | OF | | | | | | PATHOLOGY | | + +-------+ + + + + + | Specimen | + + | Blood - Blood | + + + + + + + | Performing | Address | City/State/Zipcode | Phone Number | | Organization | | | | + + + + + | [facility] DEPARTMENT OF | [address] | [place] [address] | | | PATHOLOGY | [address] | | | + + + + + COMPLETE METABOLIC SET (NA,K,CL,CO2,BUN,CREAT,GLUC,CA,AST,ALT,BILI TOTAL,ALK PHOS,ALB,PROT TOTAL) (11/27/2011 12:16 AM PST) + +---------+ + + + | Component | Value | Ref Range | Performed | Pathologist | | | | | At | Signature | + +---------+ + + + | GLUCOSE, | 187 (H) | 60 - 99 mg/dL | [facility] | | | PLASMA | | | DEPARTMENT | | | (LAB) | | | OF | | | | | | PATHOLOGY | | + +---------+ + + + | BUN, PLASMA | 19 | 6 - 20 mg/dL | [facility] | | | (LAB) | | | DEPARTMENT | | | | | | OF | | | | | | PATHOLOGY | | + +---------+ + + + | CREATININE | 0.65 | 0.60 - 1.10 | [facility] | | | PLASMA | | mg/dL | DEPARTMENT | | | (LAB) | | | OF | | | | | | PATHOLOGY | | + +---------+ + + + | TOTAL | 7.1 | 6.1 - 7.9 g/dL | [facility] | | | PROTEIN, | | | DEPARTMENT | | | PLASMA | | | OF | | | (LAB) | | | PATHOLOGY | | + +---------+ + + + | ALBUMIN, | 3.5 | 3.5 - 4.7 g/dL | [facility] | | | PLASMA | | | DEPARTMENT | | | (LAB) | | | OF | | | | | | PATHOLOGY | | + +---------+ + + + | CALCIUM, | 9.0 | 8.6 - 10.2 | [facility] | | | PLASMA | | mg/dL | DEPARTMENT | | | (LAB) | | | OF | | | | | | PATHOLOGY | | + +---------+ + + + | BILIRUBIN | 0.5 | 0.3 - 1.2 mg/dL | [facility] | | | TOTAL | | | DEPARTMENT | | | | | | OF | | | | | | PATHOLOGY | | + +---------+ + + + | ALK PHOS | 78 | 42 - 98 U/L | [facility] | | | | | | DEPARTMENT | | | | | | OF | | | | | | PATHOLOGY | | + +---------+ + + + | AST(SGOT) | 13 (L) | 15 - 41 U/L | [facility] | | | | | | DEPARTMENT | | | | | | OF | | | | | | PATHOLOGY | | + +---------+ + + + | SODIUM, | 133 (L) | 134 - 143 | [facility] | | | PLASMA | | mmol/L | DEPARTMENT | | | (LAB) | | | OF | | | | | | PATHOLOGY | | + +---------+ + + + | POTASSIUM, | 3.6 | 3.4 - 5.0 | [facility] | | | PLASMA | | mmol/L | DEPARTMENT | | | (LAB) | | | OF | | | | | | PATHOLOGY | | + +---------+ + + + | CHLORIDE, | 104 | 97 - 108 mmol/L | [facility] | | | PLASMA | | | DEPARTMENT | | | (LAB) | | | OF | | | | | | PATHOLOGY | | + +---------+ + + + | TOTAL CO2, | 21 (L) | 22 - 29 mmol/L | [facility] | | | PLASMA | | | DEPARTMENT | | | (LAB) | | | OF | | | | | | PATHOLOGY | | + +---------+ + + + | ALT (SGPT) | 17 | 13 - 48 U/L | [facility] | | | | | | DEPARTMENT | | | | | | OF | | | | | | PATHOLOGY | | + +---------+ + + + | ANION GAP | 8 | 4 - 11 mmol/L | [facility] | | | | | | DEPARTMENT | | | | | | OF | | | | | | PATHOLOGY | | + +---------+ + + + | ANION | 9 | 4 - 11 mmol/L | [facility] | | | GAP(ALB | | | DEPARTMENT | | | CORRECTED) | | | OF | | | | | | PATHOLOGY | | + +---------+ + + + + + | Specimen | + + | Blood - Blood | + + + + + + + | Performing | Address | City/State/Zipcode | Phone Number | | Organization | | | | + + + + + | [facility] DEPARTMENT OF | [address] | [place] [address] | | | PATHOLOGY | [address] | | | + + + + + CAPILLARY BLOOD GLUCOSE, POC (11/26/2011 10:40 PM PST) + +---------+ + + + | Component | Value | Ref Range | Performed | Pathologist | | | | | At | Signature | + +---------+ + + + | BLOOD | 235 (H) | 60 - 99 mg/dL | [facility] - | | | GLUCOSE, | | | [facility] | | | POC | | | [place] | | | | | | OF CARE | | | | | | TESTS | | + +---------+ + + + + + | Specimen | + + | | + + + + + + + | Performing | Address | City/State/Zipcode | Phone Number | | Organization | | | | + + + + + | [facility] | [address] | [place], [place] | | | [facility] [place] | [facility] | [address] | | | TESTS | | | | + + + + + CAPILLARY BLOOD GLUCOSE, POC (11/26/2011 4:59 PM PST) + +---------+ + + + | Component | Value | Ref Range | Performed | Pathologist | | | | | At | Signature | + +---------+ + + + | BLOOD | 302 (H) | 60 - 99 mg/dL | [facility] - | | | GLUCOSE, | | | [facility] | | | POC | | | [facility] | | | | | | OF CARE | | | | | | TESTS | | + +---------+ + + + + + | Specimen | + + | | + + + + + + + | Performing | Address | City/State/Zipcode | Phone Number | | Organization | | | | + + + + + | [facility] | [address] | [place], [place] | | | [facility] | [address] | [address] | | | TESTS | | | | + + + + + CAPILLARY BLOOD GLUCOSE, POC (11/26/2011 1:50 PM PST) + +---------+ + + + | Component | Value | Ref Range | Performed | Pathologist | | | | | At | Signature | + +---------+ + + + | BLOOD | 187 (H) | 60 - 99 mg/dL | [facility] - | | | GLUCOSE, | | | [facility] | | | POC | | | [facility] | | | | | | OF CARE | | | | | | TESTS | | + +---------+ + + + + + | Specimen | + + | | + + + + + + + | Performing | Address | City/State/Zipcode | Phone Number | | Organization | | | | + + + + + | [facility] | [address] | [place], [place] | | | [place] JASMINE | [facility] | [address] | | | TESTS | | | | + + + + + CULTURE, MRSA ONLY (11/26/2011 11:06 AM PST) + + + + + + | Component | Value | Ref Range | Performed | Pathologist | | | | | At | Signature | + + + + + + | SOURCE BODY | Nasal Nasal | | [facility] | | | SITE | | | REGIONAL | | | | | | LAB-MICRO | | + + + + + + | CULTURE | MRSA Screen | | [facility] | | | RESULT | | | REGIONAL | | | | Source...............: | | LAB-MICRO | | | | Nasal Nasal | | | | | | Culture: No | | | | | | Methicillin resistant | | | | | | Staphylococcus aureus | | | | | | isolated. Final Report | | | | | | Final Report | | | | + + + + + + + + | Specimen | + + | Nasal - Nasal | + + + + + + + | Performing | Address | City/State/Zipcode | Phone Number | | Organization | | | | + + + + + | [facility] | [address] | [place] [address] | | | LAB-MICRO | | | | + + + + + CULTURE, BLOOD BACTI & YEAST (11/26/2011 10:00 AM PST) + + + + + + | Component | Value | Ref Range | Performed | Pathologist | | | | | At | Signature | + + + + + + | SOURCE BODY | Red Lumen Lumen | | [facility] | | | SITE | | | REGIONAL | | | | | | LAB-MICRO | | + + + + + + | CULTURE | Blood Culture | | [facility] | | | RESULT | | | REGIONAL | | | | Source.................. | | LAB-MICRO | | | | : Red Lumen | | | | | | Result.................. | | | | | | . Final: No growth at 5 | | | | | | days. | | | | + + + + + + + + | Specimen | + + | Blood - Blood | + + + + + + + | Performing | Address | City/State/Zipcode | Phone Number | | Organization | | | | + + + + + | [facility] | [address] | [place] [address] | | | LAB-MICRO | | | | + + + + + CAPILLARY BLOOD GLUCOSE, POC (11/26/2011 8:24 AM PST) + +---------+ + + + | Component | Value | Ref Range | Performed | Pathologist | | | | | At | Signature | + +---------+ + + + | BLOOD | 123 (H) | 60 - 99 mg/dL | [facility] - | | | GLUCOSE, | | | [facility] | | | POC | | | [facility] | | | | | | OF CARE | | | | | | TESTS | | + +---------+ + + + + + | Specimen | + + | | + + + + + + + | Performing | Address | City/State/Zipcode | Phone Number | | Organization | | | | + + + + + | [facility] | [address] | [place], [place] | | | [facility] OF [facility] | [address] | [address] | | | TESTS | | | | + + + + + CHOLESTEROL TOTAL, PLASMA (11/26/2011 12:16 AM PST) + + + + + + | Component | Value | Ref Range | Performed | Pathologist | | | | | At | Signature | + + + + + + | CHOLESTEROL | 188Comment: | <200 mg/dL | [facility] | | | (LAB) | Cholesterol Reference | | DEPARTMENT | | | | Range: | | OF | | | | Desirable: <200 | | PATHOLOGY | | | | Borderline | | | | | | High: 200 - 239 | | | | | | | | | | | | High: >=240 | | | | | | LDL Cholesterol | | | | | | Reference Range: | | | | | | | | | | | | Optimal: <100 | | | | | | Near Optimal: | | | | | | 100 - 129 | | | | | | Borderline High: | | | | | | 130 - 159 | | | | | | High: | | | | | | 160 - 189 | | | | | | Very High: | | | | | | >=190 | | | | + + + + + + + + | Specimen | + + | Blood - Blood | + + + + + + + | Performing | Address | City/State/Zipcode | Phone Number | | Organization | | | | + + + + + | [facility] | [address] | [place] [address] | | | PATHOLOGY | [address] | | | + + + + + BILIRUBIN DIRECT (11/26/2011 12:16 AM PST) + +-------+ + + + | Component | Value | Ref Range | Performed | Pathologist | | | | | At | Signature | + +-------+ + + + | BILIRUBIN | 0.1 | <0.4 mg/dL | [facility] | | | DIRECT | | | DEPARTMENT | | | | | | OF | | | | | | PATHOLOGY | | + +-------+ + + + + + | Specimen | + + | Blood - Blood | + + + + + + + | Performing | Address | City/State/Zipcode | Phone Number | | Organization | | | | + + + + + | [facility] | [address] | [place] [address] | | | PATHOLOGY | [address] | | | + + + + + CBC, WITH DIFFERENTIAL (11/26/2011 12:16 AM PST) + + + + + + | Component | Value | Ref Range | Performed | Pathologist | | | | | At | Signature | + + + + + + | WHITE CELL | 0.2 (*) | 4.4 - 11.0 K/cu | [facility] | | | COUNT | | mm | DEPARTMENT | | | | | | OF | | | | | | PATHOLOGY | | + + + + + + | RED CELL | 3.22 (L) | 4.00 - 5.20 | [facility] | | | COUNT | | M/cu mm | DEPARTMENT | | | | | | OF | | | | | | PATHOLOGY | | + + + + + + | HEMOGLOBIN | 8.9 (L) | 12.0 - 16.0 | [facility] | | | | | g/dL | DEPARTMENT | | | | | | OF | | | | | | PATHOLOGY | | + + + + + + | HEMATOCRIT | 25.6 (L) | 36.0 - 46.0 % | [facility] | | | | | | DEPARTMENT | | | | | | OF | | | | | | PATHOLOGY | | + + + + + + | MCV | 79.4 (L) | 80.0 - 96.0 fL | [facility] | | | | | | DEPARTMENT | | | | | | OF | | | | | | PATHOLOGY | | + + + + + + | MCHC | 34.9 | 33.4 - 35.5 | [facility] | | | | | g/dL | DEPARTMENT | | | | | | OF | | | | | | PATHOLOGY | | + + + + + + | RDW | 14.0 | 11.5 - 15.0 % | [facility] | | | | | | DEPARTMENT | | | | | | OF | | | | | | PATHOLOGY | | + + + + + + | PLATELET | 113 (L) | 150 - 400 K/cu | [facility] | | | COUNT | | mm | DEPARTMENT | | | | | | OF | | | | | | PATHOLOGY | | + + + + + + | CBC | WBC <=500; diff not | | [facility] | | | COMMENTS | performed. Result(s) not | | DEPARTMENT | | | | phoned. | | OF | | | | | | PATHOLOGY | | + + + + + + + + | Specimen | + + | Blood - Blood | + + + + + + + | Performing | Address | City/State/Zipcode | Phone Number | | Organization | | | | + + + + + | [facility] DEPARTMENT OF | [id number] | [place] [address] | | | PATHOLOGY | [address] | | | + + + + + PHOSPHORUS, PLASMA (11/26/2011 12:16 AM PST) + +-------+ + + + | Component | Value | Ref Range | Performed | Pathologist | | | | | At | Signature | + +-------+ + + + | PHOSPHORUS, | 3.2 | 2.4 - 4.7 mg/dL | [facility] | | | PLASMA | | | DEPARTMENT | | | (LAB) | | | OF | | | | | | PATHOLOGY | | + +-------+ + + + + + | Specimen | + + | Blood - Blood | + + + + + + + | Performing | Address | City/State/Zipcode | Phone Number | | Organization | | | | + + + + + | [facility] DEPARTMENT OF | [phone] | [place] [address] | | | PATHOLOGY | [address] | | | + + + + + MAGNESIUM, PLASMA (11/26/2011 12:16 AM PST) + +-------+ + + + | Component | Value | Ref Range | Performed | Pathologist | | | | | At | Signature | + +-------+ + + + | MAGNESIUM,P | 2.1 | 1.8 - 2.5 mg/dL | [facility] | | | LASMA | | | DEPARTMENT | | | | | | OF | | | | | | PATHOLOGY | | + +-------+ + + + + + | Specimen | + + | Blood - Blood | + + + + + + + | Performing | Address | City/State/Zipcode | Phone Number | | Organization | | | | + + + + + | [facility] | [phone] | [place] [address] | | | PATHOLOGY | [address] | | | + + + + + COMPLETE METABOLIC SET (NA,K,CL,CO2,BUN,CREAT,GLUC,CA,AST,ALT,BILI TOTAL,ALK PHOS,ALB,PROT TOTAL) (11/26/2011 12:16 AM PST) + +---------+ + + + | Component | Value | Ref Range | Performed | Pathologist | | | | | At | Signature | + +---------+ + + + | GLUCOSE, | 177 (H) | 60 - 99 mg/dL | [facility] | | | PLASMA | | | DEPARTMENT | | | (LAB) | | | OF | | | | | | PATHOLOGY | | + +---------+ + + + | BUN, PLASMA | 16 | 6 - 20 mg/dL | [facility] | | | (LAB) | | | DEPARTMENT | | | | | | OF | | | | | | PATHOLOGY | | + +---------+ + + + | CREATININE | 0.60 | 0.60 - 1.10 | [facility] | | | PLASMA | | mg/dL | DEPARTMENT | | | (LAB) | | | OF | | | | | | PATHOLOGY | | + +---------+ + + + | TOTAL | 7.2 | 6.1 - 7.9 g/dL | [facility] | | | PROTEIN, | | | DEPARTMENT | | | PLASMA | | | OF | | | (LAB) | | | PATHOLOGY | | + +---------+ + + + | ALBUMIN, | 3.5 | 3.5 - 4.7 g/dL | [facility] | | | PLASMA | | | DEPARTMENT | | | (LAB) | | | OF | | | | | | PATHOLOGY | | + +---------+ + + + | CALCIUM, | 9.3 | 8.6 - 10.2 | [facility] | | | PLASMA | | mg/dL | DEPARTMENT | | | (LAB) | | | OF | | | | | | PATHOLOGY | | + +---------+ + + + | BILIRUBIN | 0.5 | 0.3 - 1.2 mg/dL | [facility] | | | TOTAL | | | DEPARTMENT | | | | | | OF | | | | | | PATHOLOGY | | + +---------+ + + + | ALK PHOS | 78 | 42 - 98 U/L | [facility] | | | | | | DEPARTMENT | | | | | | OF | | | | | | PATHOLOGY | | + +---------+ + + + | AST(SGOT) | 18 | 15 - 41 U/L | [facility] | | | | | | DEPARTMENT | | | | | | OF | | | | | | PATHOLOGY | | + +---------+ + + + | SODIUM, | 134 | 134 - 143 | [facility] | | | PLASMA | | mmol/L | DEPARTMENT | | | (LAB) | | | OF | | | | | | PATHOLOGY | | + +---------+ + + + | POTASSIUM, | 3.9 | 3.4 - 5.0 | [facility] | | | PLASMA | | mmol/L | DEPARTMENT | | | (LAB) | | | OF | | | | | | PATHOLOGY | | + +---------+ + + + | CHLORIDE, | 102 | 97 - 108 mmol/L | [facility] | | | PLASMA | | | DEPARTMENT | | | (LAB) | | | OF | | | | | | PATHOLOGY | | + +---------+ + + + | TOTAL CO2, | 24 | 22 - 29 mmol/L | [facility] | | | PLASMA | | | DEPARTMENT | | | (LAB) | | | OF | | | | | | PATHOLOGY | | + +---------+ + + + | ALT (SGPT) | 20 | 13 - 48 U/L | [facility] | | | | | | DEPARTMENT | | | | | | OF | | | | | | PATHOLOGY | | + +---------+ + + + | ANION GAP | 8 | 4 - 11 mmol/L | [facility] | | | | | | DEPARTMENT | | | | | | OF | | | | | | PATHOLOGY | | + +---------+ + + + | ANION | 9 | 4 - 11 mmol/L | [facility] | | | GAP(ALB | | | DEPARTMENT | | | CORRECTED) | | | OF | | | | | | PATHOLOGY | | + +---------+ + + + + + | Specimen | + + | Blood - Blood | + + + + + + + | Performing | Address | City/State/Zipcode | Phone Number | | Organization | | | | + + + + + | [facility] | [address] | [place] [address] | | | PATHOLOGY | [address] | | | + + + + + URIC ACID, PLASMA (11/26/2011 12:16 AM PST) + +-------+ + + + | Component | Value | Ref Range | Performed | Pathologist | | | | | At | Signature | + +-------+ + + + | URIC ACID, | 2.9 | 2.5 - 6.2 mg/dL | [facility] | | | PLASMA | | | DEPARTMENT | | | (LAB) | | | OF | | | | | | PATHOLOGY | | + +-------+ + + + + + | Specimen | + + | Blood - Blood | + + + + + + + | Performing | Address | City/State/Zipcode | Phone Number | | Organization | | | | + + + + + | [facility] DEPARTMENT [facility] | [address] | [place] [address] | | | PATHOLOGY | [address] | | | + + + + + LDH TOTAL, PLASMA (11/26/2011 12:16 AM PST) + +-------+ + + + | Component | Value | Ref Range | Performed | Pathologist | | | | | At | Signature | + +-------+ + + + | LD TOTAL, | 116 | 110 - 205 U/L | [facility] | | | PLASMA | | | DEPARTMENT | | | | | | OF | | | | | | PATHOLOGY | | + +-------+ + + + + + | Specimen | + + | Blood - Blood | + + + + + + + | Performing | Address | City/State/Zipcode | Phone Number | | Organization | | | | + + + + + | [facility] DEPARTMENT | [address] | [place] [address] | | | PATHOLOGY | [address] | | | + + + + + CAPILLARY BLOOD GLUCOSE, POC (11/25/2011 10:24 PM PST) + +---------+ + + + | Component | Value | Ref Range | Performed | Pathologist | | | | | At | Signature | + +---------+ + + + | BLOOD | 219 (H) | 60 - 99 mg/dL | [facility] - | | | GLUCOSE, | | | [place] | | | POC | | | [facility] | | | | | | OF CARE | | | | | | TESTS | | + +---------+ + + + + + | Specimen | + + | | + + + + + + + | Performing | Address | City/State/Zipcode | Phone Number | | Organization | | | | + + + + + | [facility] | [address] | [place], [place] | | | [facility] | [address] | [address] | | | TESTS | | | | + + + + + CAPILLARY BLOOD GLUCOSE, POC (11/25/2011 4:53 PM PST) + +---------+ + + + | Component | Value | Ref Range | Performed | Pathologist | | | | | At | Signature | + +---------+ + + + | BLOOD | 212 (H) | 60 - 99 mg/dL | [facility] - | | | GLUCOSE, | | | [facility] | | | POC | | | [facility] | | | | | | OF CARE | | | | | | TESTS | | + +---------+ + + + + + | Specimen | + + | | + + + + + + + | Performing | Address | City/State/Zipcode | Phone Number | | Organization | | | | + + + + + | [facility] | [address] | [place], [place] | | | [facility] | [address] | [address] | | | TESTS | | | | + + + + + CAPILLARY BLOOD GLUCOSE, POC (11/25/2011 12:59 PM PST) + +---------+ + + + | Component | Value | Ref Range | Performed | Pathologist | | | | | At | Signature | + +---------+ + + + | BLOOD | 125 (H) | 60 - 99 mg/dL | [facility] - | | | GLUCOSE, | | | [facility] | | | POC | | | [facility] | | | | | | OF CARE | | | | | | TESTS | | + +---------+ + + + + + | Specimen | + + | | + + + + + + + | Performing | Address | City/State/Zipcode | Phone Number | | Organization | | | | + + + + + | [facility] | [address] | [place], [place] | | | [facility] | [address] | [address] | | | TESTS | | | | + + + + + CAPILLARY BLOOD GLUCOSE, POC (11/25/2011 7:48 AM PST) + +---------+ + + + | Component | Value | Ref Range | Performed | Pathologist | | | | | At | Signature | + +---------+ + + + | BLOOD | 122 (H) | 60 - 99 mg/dL | [facility] - | | | GLUCOSE, | | | [facility] | | | POC | | | [facility] | | | | | | OF CARE | | | | | | TESTS | | + +---------+ + + + + + | Specimen | + + | | + + + + + + + | Performing | Address | City/State/Zipcode | Phone Number | | Organization | | | | + + + + + | [facility] | [address] | [place], [place] | | | [facility] | [facility] | [address] | | | TESTS | | | | + + + + + URIC ACID, PLASMA (11/25/2011 12:06 AM PST) + +-------+ + + + | Component | Value | Ref Range | Performed | Pathologist | | | | | At | Signature | + +-------+ + + + | URIC ACID, | 2.6 | 2.5 - 6.2 mg/dL | [facility] | | | PLASMA | | | DEPARTMENT | | | (LAB) | | | OF | | | | | | PATHOLOGY | | + +-------+ + + + + + | Specimen | + + | Blood - Blood | + + + + + + + | Performing | Address | City/State/Zipcode | Phone Number | | Organization | | | | + + + + + | [facility] DEPARTMENT [facility] | [phone] | [place] [address] | | | PATHOLOGY | [address] | | | + + + + + LDH TOTAL, PLASMA (11/25/2011 12:06 AM PST) + +-------+ + + + | Component | Value | Ref Range | Performed | Pathologist | | | | | At | Signature | + +-------+ + + + | LD TOTAL, | 116 | 110 - 205 U/L | [facility] | | | PLASMA | | | DEPARTMENT | | | | | | OF | | | | | | PATHOLOGY | | + +-------+ + + + + + | Specimen | + + | Blood - Blood | + + + + + + + | Performing | Address | City/State/Zipcode | Phone Number | | Organization | | | | + + + + + | [facility] DEPARTMENT | [address] | [place] [address] | | | PATHOLOGY | [address] | | | + + + + + CBC, WITH DIFFERENTIAL (11/25/2011 12:06 AM PST) + + + + + + | Component | Value | Ref Range | Performed | Pathologist | | | | | At | Signature | + + + + + + | WHITE CELL | 0.4 (*) | 4.4 - 11.0 K/cu | [facility] | | | COUNT | | mm | DEPARTMENT | | | | | | OF | | | | | | PATHOLOGY | | + + + + + + | RED CELL | 3.09 (L) | 4.00 - 5.20 | [facility] | | | COUNT | | M/cu mm | DEPARTMENT | | | | | | OF | | | | | | PATHOLOGY | | + + + + + + | HEMOGLOBIN | 8.5 (L) | 12.0 - 16.0 | [facility] | | | | | g/dL | DEPARTMENT | | | | | | OF | | | | | | PATHOLOGY | | + + + + + + | HEMATOCRIT | 24.7 (L) | 36.0 - 46.0 % | [facility] | | | | | | DEPARTMENT | | | | | | OF | | | | | | PATHOLOGY | | + + + + + + | MCV | 79.7 (L) | 80.0 - 96.0 fL | [facility] | | | | | | DEPARTMENT | | | | | | OF | | | | | | PATHOLOGY | | + + + + + + | MCHC | 34.3 | 33.4 - 35.5 | [facility] | | | | | g/dL | DEPARTMENT | | | | | | OF | | | | | | PATHOLOGY | | + + + + + + | RDW | 14.2 | 11.5 - 15.0 % | [facility] | | | | | | DEPARTMENT | | | | | | OF | | | | | | PATHOLOGY | | + + + + + + | PLATELET | 114 (L) | 150 - 400 K/cu | [facility] | | | COUNT | | mm | DEPARTMENT | | | | | | OF | | | | | | PATHOLOGY | | + + + + + + | CBC | Result(s) not phoned.WBC | | [facility] | | | COMMENTS | <=500; diff not | | DEPARTMENT | | | | performed. | | OF | | | | | | PATHOLOGY | | + + + + + + + + | Specimen | + + | Blood - Blood | + + + + + + + | Performing | Address | City/State/Zipcode | Phone Number | | Organization | | | | + + + + + | [facility] | [address] | [place] [address] | | | PATHOLOGY | [address] | | | + + + + + PHOSPHORUS, PLASMA (11/25/2011 12:06 AM PST) + +-------+ + + + | Component | Value | Ref Range | Performed | Pathologist | | | | | At | Signature | + +-------+ + + + | PHOSPHORUS, | 3.1 | 2.4 - 4.7 mg/dL | [facility] | | | PLASMA | | | DEPARTMENT | | | (LAB) | | | OF | | | | | | PATHOLOGY | | + +-------+ + + + + + | Specimen | + + | Blood - Blood | + + + + + + + | Performing | Address | City/State/Zipcode | Phone Number | | Organization | | | | + + + + + | [facility] DEPARTMENT OF | [address] | [place] [address] | | | PATHOLOGY | [address] | | | + + + + + MAGNESIUM, PLASMA (11/25/2011 12:06 AM PST) + +-------+ + + + | Component | Value | Ref Range | Performed | Pathologist | | | | | At | Signature | + +-------+ + + + | MAGNESIUM,P | 1.9 | 1.8 - 2.5 mg/dL | [facility] | | | LASMA | | | DEPARTMENT | | | | | | OF | | | | | | PATHOLOGY | | + +-------+ + + + + + | Specimen | + + | Blood - Blood | + + + + + + + | Performing | Address | City/State/Zipcode | Phone Number | | Organization | | | | + + + + + | [facility] DEPARTMENT | [address] | [place] [address] | | | PATHOLOGY | [address] | | | + + + + + COMPLETE METABOLIC SET (NA,K,CL,CO2,BUN,CREAT,GLUC,CA,AST,ALT,BILI TOTAL,ALK PHOS,ALB,PROT TOTAL) (11/25/2011 12:06 AM PST) + + + + + + | Component | Value | Ref Range | Performed | Pathologist | | | | | At | Signature | + + + + + + | GLUCOSE, | 107 (H) | 60 - 99 mg/dL | [facility] | | | PLASMA | | | DEPARTMENT | | | (LAB) | | | OF | | | | | | PATHOLOGY | | + + + + + + | BUN, PLASMA | 9 | 6 - 20 mg/dL | [facility] | | | (LAB) | | | DEPARTMENT | | | | | | OF | | | | | | PATHOLOGY | | + + + + + + | CREATININE | 0.50 (L) | 0.60 - 1.10 | [facility] | | | PLASMA | | mg/dL | DEPARTMENT | | | (LAB) | | | OF | | | | | | PATHOLOGY | | + + + + + + | TOTAL | 6.3 | 6.1 - 7.9 g/dL | [facility] | | | PROTEIN, | | | DEPARTMENT | | | PLASMA | | | OF | | | (LAB) | | | PATHOLOGY | | + + + + + + | ALBUMIN, | 3.2 (L) | 3.5 - 4.7 g/dL | [facility] | | | PLASMA | | | DEPARTMENT | | | (LAB) | | | OF | | | | | | PATHOLOGY | | + + + + + + | CALCIUM, | 8.6 | 8.6 - 10.2 | [facility] | | | PLASMA | | mg/dL | DEPARTMENT | | | (LAB) | | | OF | | | | | | PATHOLOGY | | + + + + + + | BILIRUBIN | 0.6 | 0.3 - 1.2 mg/dL | [facility] | | | TOTAL | | | DEPARTMENT | | | | | | OF | | | | | | PATHOLOGY | | + + + + + + | ALK PHOS | 62 | 42 - 98 U/L | [facility] | | | | | | DEPARTMENT | | | | | | OF | | | | | | PATHOLOGY | | + + + + + + | AST(SGOT) | 13 (L) | 15 - 41 U/L | [facility] | | | | | | DEPARTMENT | | | | | | OF | | | | | | PATHOLOGY | | + + + + + + | SODIUM, | 136 | 134 - 143 | [facility] | | | PLASMA | | mmol/L | DEPARTMENT | | | (LAB) | | | OF | | | | | | PATHOLOGY | | + + + + + + | POTASSIUM, | 3.4 | 3.4 - 5.0 | [facility] | | | PLASMA | | mmol/L | DEPARTMENT | | | (LAB) | | | OF | | | | | | PATHOLOGY | | + + + + + + | CHLORIDE, | 104 | 97 - 108 mmol/L | [facility] | | | PLASMA | | | DEPARTMENT | | | (LAB) | | | OF | | | | | | PATHOLOGY | | + + + + + + | TOTAL CO2, | 26 | 22 - 29 mmol/L | [facility] | | | PLASMA | | | DEPARTMENT | | | (LAB) | | | OF | | | | | | PATHOLOGY | | + + + + + + | ALT (SGPT) | 13 | 13 - 48 U/L | [facility] | | | | | | DEPARTMENT | | | | | | OF | | | | | | PATHOLOGY | | + + + + + + | ANION GAP | 6 | 4 - 11 mmol/L | [facility] | | | | | | DEPARTMENT | | | | | | OF | | | | | | PATHOLOGY | | + + + + + + | ANION | 8 | 4 - 11 mmol/L | [facility] | | | GAP(ALB | | | DEPARTMENT | | | CORRECTED) | | | OF | | | | | | PATHOLOGY | | + + + + + + + + | Specimen | + + | Blood - Blood | + + + + + + + | Performing | Address | City/State/Zipcode | Phone Number | | Organization | | | | + + + + + | [facility] DEPARTMENT | [phone] | [place] [address] | | | PATHOLOGY | [address] | | | + + + + + CAPILLARY BLOOD GLUCOSE, POC (11/24/2011 9:56 PM PST) + +---------+ + + + | Component | Value | Ref Range | Performed | Pathologist | | | | | At | Signature | + +---------+ + + + | BLOOD | 129 (H) | 60 - 99 mg/dL | [facility] - | | | GLUCOSE, | | | [place] | | | POC | | | [facility] | | | | | | OF CARE | | | | | | TESTS | | + +---------+ + + + + + | Specimen | + + | | + + + + + + + | Performing | Address | City/State/Zipcode | Phone Number | | Organization | | | | + + + + + | [facility] | [address] | [place], [place] | | | [facility] [place] | [address] | [address] | | | TESTS | | | | + + + + + CAPILLARY BLOOD GLUCOSE, POC (11/24/2011 5:43 PM PST) + +---------+ + + + | Component | Value | Ref Range | Performed | Pathologist | | | | | At | Signature | + +---------+ + + + | BLOOD | 151 (H) | 60 - 99 mg/dL | [facility] - | | | GLUCOSE, | | | [facility] | | | POC | | | [facility] | | | | | | OF CARE | | | | | | TESTS | | + +---------+ + + + + + | Specimen | + + | | + + + + + + + | Performing | Address | City/State/Zipcode | Phone Number | | Organization | | | | + + + + + | [facility] | [address] | [place], [place] | | | [facility]ARE | [address] | [address] | | | TESTS | | | | + + + + + CAPILLARY BLOOD GLUCOSE, POC (11/24/2011 1:14 PM PST) + +---------+ + + + | Component | Value | Ref Range | Performed | Pathologist | | | | | At | Signature | + +---------+ + + + | BLOOD | 186 (H) | 60 - 99 mg/dL | [facility] - | | | GLUCOSE, | | | [facility] | | | POC | | | [facility] | | | | | | OF CARE | | | | | | TESTS | | + +---------+ + + + + + | Specimen | + + | | + + + + + + + | Performing | Address | City/State/Zipcode | Phone Number | | Organization | | | | + + + + + | [facility] | [address] | [place], [place] | | | [facility] [place] | [facility] | [address] | | | TESTS | | | | + + + + + CAPILLARY BLOOD GLUCOSE, POC (11/24/2011 7:41 AM PST) + +---------+ + + + | Component | Value | Ref Range | Performed | Pathologist | | | | | At | Signature | + +---------+ + + + | BLOOD | 107 (H) | 60 - 99 mg/dL | [facility] - | | | GLUCOSE, | | | [facility] | | | POC | | | [facility] | | | | | | OF CARE | | | | | | TESTS | | + +---------+ + + + + + | Specimen | + + | | + + + + + + + | Performing | Address | City/State/Zipcode | Phone Number | | Organization | | | | + + + + + | [facility] | [address] | [place], [place] | | | [facility] | [address] | [address] | | | TESTS | | | | + + + + + URIC ACID, PLASMA (11/24/2011 12:25 AM PST) + +-------+ + + + | Component | Value | Ref Range | Performed | Pathologist | | | | | At | Signature | + +-------+ + + + | URIC ACID, | 2.9 | 2.5 - 6.2 mg/dL | [facility] | | | PLASMA | | | DEPARTMENT | | | (LAB) | | | OF | | | | | | PATHOLOGY | | + +-------+ + + + + + | Specimen | + + | Blood - Blood | + + + + + + + | Performing | Address | City/State/Zipcode | Phone Number | | Organization | | | | + + + + + | [facility] DE[facility]MENT [facility] | [address] | [place] [address] | | | PATHOLOGY | [address] | | | + + + + + LDH TOTAL, PLASMA (11/24/2011 12:25 AM PST) + +-------+ + + + | Component | Value | Ref Range | Performed | Pathologist | | | | | At | Signature | + +-------+ + + + | LD TOTAL, | 135 | 110 - 205 U/L | [facility] | | | PLASMA | | | DEPARTMENT | | | | | | OF | | | | | | PATHOLOGY | | + +-------+ + + + + + | Specimen | + + | Blood - Blood | + + + + + + + | Performing | Address | City/State/Zipcode | Phone Number | | Organization | | | | + + + + + | [facility] DEPARTMENT | [address] | [place] [address] | | | PATHOLOGY | [address] | | | + + + + + CBC, WITH DIFFERENTIAL (11/24/2011 12:25 AM PST) + + + + + + | Component | Value | Ref Range | Performed | Pathologist | | | | | At | Signature | + + + + + + | WHITE CELL | 0.2 (*) | 4.4 - 11.0 K/cu | [facility] | | | COUNT | | mm | DEPARTMENT | | | | | | OF | | | | | | PATHOLOGY | | + + + + + + | RED CELL | 3.36 (L) | 4.00 - 5.20 | [facility] | | | COUNT | | M/cu mm | DEPARTMENT | | | | | | OF | | | | | | PATHOLOGY | | + + + + + + | HEMOGLOBIN | 9.0 (L) | 12.0 - 16.0 | [facility] | | | | | g/dL | DEPARTMENT | | | | | | OF | | | | | | PATHOLOGY | | + + + + + + | HEMATOCRIT | 26.8 (L) | 36.0 - 46.0 % | [facility] | | | | | | DEPARTMENT | | | | | | OF | | | | | | PATHOLOGY | | + + + + + + | MCV | 79.6 (L) | 80.0 - 96.0 fL | [facility] | | | | | | DEPARTMENT | | | | | | OF | | | | | | PATHOLOGY | | + + + + + + | MCHC | 33.6 | 33.4 - 35.5 | [facility] | | | | | g/dL | DEPARTMENT | | | | | | OF | | | | | | PATHOLOGY | | + + + + + + | RDW | 14.1 | 11.5 - 15.0 % | [facility] | | | | | | DEPARTMENT | | | | | | OF | | | | | | PATHOLOGY | | + + + + + + | PLATELET | 147 (L) | 150 - 400 K/cu | [facility] | | | COUNT | | mm | DEPARTMENT | | | | | | OF | | | | | | PATHOLOGY | | + + + + + + | CBC | WBC <=500; diff not | | [facility] | | | COMMENTS | performed. Result(s) not | | DEPARTMENT | | | | phoned. | | OF | | | | | | PATHOLOGY | | + + + + + + + + | Specimen | + + | Blood - Blood | + + + + + + + | Performing | Address | City/State/Zipcode | Phone Number | | Organization | | | | + + + + + | [facility] DEPARTMENT | [address] [facility] | [place] [address] | | | PATHOLOGY | [address] | | | + + + + + PHOSPHORUS, PLASMA (11/24/2011 12:25 AM PST) + +-------+ + + + | Component | Value | Ref Range | Performed | Pathologist | | | | | At | Signature | + +-------+ + + + | PHOSPHORUS, | 3.2 | 2.4 - 4.7 mg/dL | [facility] | | | PLASMA | | | DEPARTMENT | | | (LAB) | | | OF | | | | | | PATHOLOGY | | + +-------+ + + + + + | Specimen | + + | Blood - Blood | + + + + + + + | Performing | Address | City/State/Zipcode | Phone Number | | Organization | | | | + + + + + | [facility] DEPARTMENT OF | [address] | [place] [address] | | | PATHOLOGY | [address] | | | + + + + + MAGNESIUM, PLASMA (11/24/2011 12:25 AM PST) + +-------+ + + + | Component | Value | Ref Range | Performed | Pathologist | | | | | At | Signature | + +-------+ + + + | MAGNESIUM,P | 1.8 | 1.8 - 2.5 mg/dL | [facility] | | | LASMA | | | DEPARTMENT | | | | | | OF | | | | | | PATHOLOGY | | + +-------+ + + + + + | Specimen | + + | Blood - Blood | + + + + + + + | Performing | Address | City/State/Zipcode | Phone Number | | Organization | | | | + + + + + | [facility] | [address] [facility] | [place] [address] | | | PATHOLOGY | [address] | | | + + + + + COMPLETE METABOLIC SET (NA,K,CL,CO2,BUN,CREAT,GLUC,CA,AST,ALT,BILI TOTAL,ALK PHOS,ALB,PROT TOTAL) (11/24/2011 12:25 AM PST) + + + + + + | Component | Value | Ref Range | Performed | Pathologist | | | | | At | Signature | + + + + + + | GLUCOSE, | 135 (H) | 60 - 99 mg/dL | [facility] | | | PLASMA | | | DEPARTMENT | | | (LAB) | | | OF | | | | | | PATHOLOGY | | + + + + + + | BUN, PLASMA | 6 | 6 - 20 mg/dL | [facility] | | | (LAB) | | | DEPARTMENT | | | | | | OF | | | | | | PATHOLOGY | | + + + + + + | CREATININE | 0.55 (L) | 0.60 - 1.10 | [facility] | | | PLASMA | | mg/dL | DEPARTMENT | | | (LAB) | | | OF | | | | | | PATHOLOGY | | + + + + + + | TOTAL | 6.3 | 6.1 - 7.9 g/dL | [facility] | | | PROTEIN, | | | DEPARTMENT | | | PLASMA | | | OF | | | (LAB) | | | PATHOLOGY | | + + + + + + | ALBUMIN, | 3.3 (L) | 3.5 - 4.7 g/dL | [facility] | | | PLASMA | | | DEPARTMENT | | | (LAB) | | | OF | | | | | | PATHOLOGY | | + + + + + + | CALCIUM, | 8.8 | 8.6 - 10.2 | [facility] | | | PLASMA | | mg/dL | DEPARTMENT | | | (LAB) | | | OF | | | | | | PATHOLOGY | | + + + + + + | BILIRUBIN | 1.0 | 0.3 - 1.2 mg/dL | [facility] | | | TOTAL | | | DEPARTMENT | | | | | | OF | | | | | | PATHOLOGY | | + + + + + + | ALK PHOS | 64 | 42 - 98 U/L | [facility] | | | | | | DEPARTMENT | | | | | | OF | | | | | | PATHOLOGY | | + + + + + + | AST(SGOT) | 13 (L) | 15 - 41 U/L | [facility] | | | | | | DEPARTMENT | | | | | | OF | | | | | | PATHOLOGY | | + + + + + + | SODIUM, | 134 | 134 - 143 | [facility] | | | PLASMA | | mmol/L | DEPARTMENT | | | (LAB) | | | OF | | | | | | PATHOLOGY | | + + + + + + | POTASSIUM, | 3.4 | 3.4 - 5.0 | [facility] | | | PLASMA | | mmol/L | DEPARTMENT | | | (LAB) | | | OF | | | | | | PATHOLOGY | | + + + + + + | CHLORIDE, | 101 | 97 - 108 mmol/L | [facility] | | | PLASMA | | | DEPARTMENT | | | (LAB) | | | OF | | | | | | PATHOLOGY | | + + + + + + | TOTAL CO2, | 26 | 22 - 29 mmol/L | [facility] | | | PLASMA | | | DEPARTMENT | | | (LAB) | | | OF | | | | | | PATHOLOGY | | + + + + + + | ALT (SGPT) | 14 | 13 - 48 U/L | [facility] | | | | | | DEPARTMENT | | | | | | OF | | | | | | PATHOLOGY | | + + + + + + | ANION GAP | 7 | 4 - 11 mmol/L | [facility] | | | | | | DEPARTMENT | | | | | | OF | | | | | | PATHOLOGY | | + + + + + + | ANION | 8 | 4 - 11 mmol/L | [facility] | | | GAP(ALB | | | DEPARTMENT | | | CORRECTED) | | | OF | | | | | | PATHOLOGY | | + + + + + + + + | Specimen | + + | Blood - Blood | + + + + + + + | Performing | Address | City/State/Zipcode | Phone Number | | Organization | | | | + + + + + | [facility] DEPARTMENT | [phone] | [place] [address] | | | PATHOLOGY | [address] | | | + + + + + CAPILLARY BLOOD GLUCOSE, POC (11/23/2011 9:37 PM PST) + +---------+ + + + | Component | Value | Ref Range | Performed | Pathologist | | | | | At | Signature | + +---------+ + + + | BLOOD | 113 (H) | 60 - 99 mg/dL | [facility] - | | | GLUCOSE, | | | [facility] | | | POC | | | [facility] | | | | | | OF CARE | | | | | | TESTS | | + +---------+ + + + + + | Specimen | + + | | + + + + + + + | Performing | Address | City/State/Zipcode | Phone Number | | Organization | | | | + + + + + | [facility] | [address] | [place], [place] | | | [facility] | [address] | [address] | | | TESTS | | | | + + + + + X-RAY LUMBAR PUNCTURE 4 CHEMO ADMIN W/GUIDANCE (11/23/2011 3:00 PM PST) + + + + + + | Component | Value | Ref Range | Performed | Pathologist | | | | | At | Signature | + + + + + + | X-RAY | Lumbar Puncture with | | | | | LUMBAR | Fluoroscopy: 11/23/11 | | | | | PUNCTURE 4 | 09:49:00 INDICATION: | | | | | CHEMO ADMIN | 51-year-old female with | | | | | W/GUIDANCE | malignancy undergoing | | | | | | intrathecalchemotherapy. | | | | | | PRODUCT SAFETY SPECIALIST: | | | | | | Carmen FACULTY: | | | | | | Ang MEDICATIONS: 2 cc | | | | | | of lidocaine | | | | | | FLUOROSCOPY TIME: 42 | | | | | | seconds CONSENT: The | | | | | | procedure, risks, | | | | | | benefits and | | | | | | alternatives | | | | | | wereexplained to the | | | | | | patient and written | | | | | | informed consent was | | | | | | obtained. PROCEDURE | | | | | | DETAILS: A team pause | | | | | | was performed. The | | | | | | patient was placedprone | | | | | | on the fluoroscopy | | | | | | table. The lower back | | | | | | was prepped anddraped. | | | | | | The L3 level was | | | | | | localized with | | | | | | fluoroscopy. | | | | | | Localanesthesia was | | | | | | achieved in the skin at | | | | | | the puncture site. A | | | | | | 20 gaugespinal needle | | | | | | was then placed in the | | | | | | spinal canal under | | | | | | directfluoroscopic | | | | | | guidance. 7 cc of clear, | | | | | | colorless CSF was | | | | | | collected andsent to the | | | | | | laboratory. | | | | | | Intrathecal | | | | | | chemotherapy was | | | | | | injected by | | | | | | thehematology oncology | | | | | | service. The needle was | | | | | | removed and a | | | | | | sterilebandage was | | | | | | applied at the puncture | | | | | | site. COMPLICATIONS: No | | | | | | immediate. DISPOSITION: | | | | | | Returned to inpatient | | | | | | unit. | | | | | | IMPRESSION:Successful | | | | | | lumbar puncture. | | | | | | Intrathecal | | | | | | chemotherapy per | | | | | | hematologyoncology | | | | | | service. By my | | | | | | electronic signature | | | | | | listed below, I Dr | | | | | | Phalke the | | | | | | attendingradiologist, | | | | | | was present for the | | | | | | critical portions of the | | | | | | procedureas described | | | | | | in this note. | | | | | | Attending Radiologists: | | | | | | Arabella Phalsancho, | | | | | | M.RobertAuthor: Luis | | | | | | Clint Morales I have | | | | | | personally viewed this | | | | | | procedure/exam, reviewed | | | | | | this report,and made | | | | | | changes to it where | | | | | | appropriate. | | | | | | Final/Electronically | | | | | | signed / Arabella | | | | | | Phalke 11/23/2011 15:04 | | | | | | PM Pending final | | | | | | approval / Luis | | | | | | Carmen 11/23/2011 14:49 | | | | | | PM Preliminary / | | | | | | Lusi vita 11/23/2011 | | | | | | 14:45 PM | | | | + + + + + + + + | Specimen | + + | | + + + +---------+ + + | Performing | Address | City/State/Zipcode | Phone Number | | Organization | | | | + +---------+ + + | [facility]MENT [facility] | | | | | RADIOLOGY | | | | + +---------+ + + CSF INFO PANEL (11/23/2011 2:25 PM PST) + + + + + + | Component | Value | Ref Range | Performed | Pathologist | | | | | At | Signature | + + + + + + | CSF | Clear | Clear | [facility] | | | APPEARANCE | | | DEPARTMENT | | | | | | OF | | | | | | PATHOLOGY | | + + + + + + | CSF COLOR | Colorless | Colorless | [facility] | | | | | | DEPARTMENT | | | | | | OF | | | | | | PATHOLOGY | | + + + + + + | CSF TUBE | Tube 3 | | [facility] | | | NUMBER | | | DEPARTMENT | | | | | | OF | | | | | | PATHOLOGY | | + + + + + + + + | Specimen | + + | | + + + + + + + | Performing | Address | City/State/Zipcode | Phone Number | | Organization | | | | + + + + + | [facility] DEPARTMENT | [address] | [place] [address] | | | PATHOLOGY | [address] | | | + + + + + PROTEIN, CSF (11/23/2011 2:25 PM PST) + +-------+ + + + | Component | Value | Ref Range | Performed | Pathologist | | | | | At | Signature | + +-------+ + + + | TOTAL | 39 | 15 - 45 mg/dL | [facility] | | | PROTEIN CSF | | | DEPARTMENT | | | | | | OF | | | | | | PATHOLOGY | | + +-------+ + + + + + | Specimen | + + | Cerebrospinal fluid | | - Cerebrospinal | | fluid | + + + + + + + | Performing | Address | City/State/Zipcode | Phone Number | | Organization | | | | + + + + + | [facility] | [address] | [place] [address] | | | PATHOLOGY | [address] | | | + + + + + LDH, CSF (11/23/2011 2:25 PM PST) + +-------+ + + + | Component | Value | Ref Range | Performed | Pathologist | | | | | At | Signature | + +-------+ + + + | LDH CSF | 22 | <40 U/L | [facility] | | | | | | DEPARTMENT | | | | | | OF | | | | | | PATHOLOGY | | + +-------+ + + + + + | Specimen | + + | Cerebrospinal fluid | | - Cerebrospinal | | fluid | + + + + + + + | Performing | Address | City/State/Zipcode | Phone Number | | Organization | | | | + + + + + | [facility] | [address] | [place] [address] | | | PATHOLOGY | [address] | | | + + + + + GLUCOSE, CSF (11/23/2011 2:25 PM PST) + +-------+ + + + | Component | Value | Ref Range | Performed | Pathologist | | | | | At | Signature | + +-------+ + + + | GLUCOSE CSF | 66 | 40 - 70 mg/dL | [facility] | | | | | | DEPARTMENT | | | | | | OF | | | | | | PATHOLOGY | | + +-------+ + + + + + | Specimen | + + | Cerebrospinal fluid | | - Cerebrospinal | | fluid | + + + + + + + | Performing | Address | City/State/Zipcode | Phone Number | | Organization | | | | + + + + + | [facility] | [address] | [place] [address] | | | PATHOLOGY | [address] | | | + + + + + CELL COUNT DIFF, CSF (11/23/2011 2:25 PM PST) + +-------+ + + + | Component | Value | Ref Range | Performed | Pathologist | | | | | At | Signature | + +-------+ + + + | CSF WBC | 1 | <6 /cu mm | [facility] | | | | | | DEPARTMENT | | | | | | OF | | | | | | PATHOLOGY | | + +-------+ + + + | CSF RBC | 1 | /cu mm | [facility] | | | | | | DEPARTMENT | | | | | | OF | | | | | | PATHOLOGY | | + +-------+ + + + | DIFFERENTIA | 100 | | [facility] | | | L CSF | | | DEPARTMENT | | | | | | OF | | | | | | PATHOLOGY | | + +-------+ + + + | LYMPHOCYTES | 55 | 40 - 80 % | [facility] | | | (CSF) | | | DEPARTMENT | | | | | | OF | | | | | | PATHOLOGY | | + +-------+ + + + | MONOCYTES(C | 45 | 15 - 45 % | [facility] | | | SF) | | | DEPARTMENT | | | | | | OF | | | | | | PATHOLOGY | | + +-------+ + + + + + | Specimen | + + | Cerebrospinal fluid | | - Cerebrospinal | | fluid | + + + + + + + | Performing | Address | City/State/Zipcode | Phone Number | | Organization | | | | + + + + + | [facility] DEPARTMENT | [address] | [place] [address] | | | PATHOLOGY | [address] | | | + + + + + CAPILLARY BLOOD GLUCOSE, POC (11/23/2011 12:00 PM PST) + +---------+ + + + | Component | Value | Ref Range | Performed | Pathologist | | | | | At | Signature | + +---------+ + + + | BLOOD | 116 (H) | 60 - 99 mg/dL | [facility] - | | | GLUCOSE, | | | [facility] | | | POC | | | [facility] | | | | | | OF CARE | | | | | | TESTS | | + +---------+ + + + + + | Specimen | + + | | + + + + + + + | Performing | Address | City/State/Zipcode | Phone Number | | Organization | | | | + + + + + | [facility] | [address] | [place], [place] | | | [facility] | [address] | [address] | | | TESTS | | | | + + + + + CAPILLARY BLOOD GLUCOSE, POC (11/23/2011 8:02 AM PST) + +---------+ + + + | Component | Value | Ref Range | Performed | Pathologist | | | | | At | Signature | + +---------+ + + + | BLOOD | 102 (H) | 60 - 99 mg/dL | [facility] - | | | GLUCOSE, | | | [facility] | | | POC | | | [facility] | | | | | | OF CARE | | | | | | TESTS | | + +---------+ + + + + + | Specimen | + + | | + + + + + + + | Performing | Address | City/State/Zipcode | Phone Number | | Organization | | | | + + + + + | [facility] | [address] | [place], [place] | | | [facility] | [facility] | [address] | | | TESTS | | | | + + + + + DIFFERENTIAL (11/23/2011 12:02 AM PST) + +---------+ + + + | Component | Value | Ref Range | Performed | Pathologist | | | | | At | Signature | + +---------+ + + + | NEUTROPHIL | 47 (L) | 50 - 70 % | [facility] | | | % | | | DEPARTMENT | | | | | | OF | | | | | | PATHOLOGY | | + +---------+ + + + | LYMPHOCYTE | 47 (H) | 18 - 42 % | [facility] | | | % | | | DEPARTMENT | | | | | | OF | | | | | | PATHOLOGY | | + +---------+ + + + | MONOCYTE % | 2 | 2 - 8 % | [facility] | | | | | | DEPARTMENT | | | | | | OF | | | | | | PATHOLOGY | | + +---------+ + + + | EOS % | 3 | 1 - 3 % | [facility] | | | | | | DEPARTMENT | | | | | | OF | | | | | | PATHOLOGY | | + +---------+ + + + | BASO % | 1 | <3 % | [facility] | | | | | | DEPARTMENT | | | | | | OF | | | | | | PATHOLOGY | | + +---------+ + + + | NEUTROPHIL | 0.5 (L) | 1.8 - 7.7 K/cu | [facility] | | | # | | mm | DEPARTMENT | | | | | | OF | | | | | | PATHOLOGY | | + +---------+ + + + | LYMPHOCYTE | 0.5 (L) | 1.0 - 4.8 K/cu | [facility] | | | # | | mm | DEPARTMENT | | | | | | OF | | | | | | PATHOLOGY | | + +---------+ + + + | MONOCYTE # | 0.0 | <0.9 K/cu mm | [facility] | | | | | | DEPARTMENT | | | | | | OF | | | | | | PATHOLOGY | | + +---------+ + + + | EOS # | 0.0 | <0.6 K/cu mm | [facility] | | | | | | DEPARTMENT | | | | | | OF | | | | | | PATHOLOGY | | + +---------+ + + + | BASO # | 0.0 | <0.3 | [facility] | | | | | | DEPARTMENT | | | | | | OF | | | | | | PATHOLOGY | | + +---------+ + + + + + | Specimen | + + | | + + + + + | Narrative | Performed At | + + + | WBC Phoned TO MARK HEATON Readback. @0038 * Corrected 11/23/11 | [facility] | | 04:07: HILARIO COMMENTS, prev report: Slide review pending. WBC | DEPARTMENT OF | | Phoned. Readback. | PATHOLOGY | + + + + + + + + | Performing | Address | City/State/Zipcode | Phone Number | | Organization | | | | + + + + + | [facility] DEPARTMENT OF | [address] [facility] | [place] [address] | | | PATHOLOGY | [address] | | | + + + + + URIC ACID, PLASMA (11/23/2011 12:02 AM PST) + +-------+ + + + | Component | Value | Ref Range | Performed | Pathologist | | | | | At | Signature | + +-------+ + + + | URIC ACID, | 3.6 | 2.5 - 6.2 mg/dL | [facility] | | | PLASMA | | | DEPARTMENT | | | (LAB) | | | OF | | | | | | PATHOLOGY | | + +-------+ + + + + + | Specimen | + + | Blood - Blood | + + + + + + + | Performing | Address | City/State/Zipcode | Phone Number | | Organization | | | | + + + + + | [facility] DE[facility] | [address] | [place] [address] | | | PATHOLOGY | [address] | | | + + + + + LDH TOTAL, PLASMA (11/23/2011 12:02 AM PST) + +-------+ + + + | Component | Value | Ref Range | Performed | Pathologist | | | | | At | Signature | + +-------+ + + + | LD TOTAL, | 146 | 110 - 205 U/L | [facility] | | | PLASMA | | | DEPARTMENT | | | | | | OF | | | | | | PATHOLOGY | | + +-------+ + + + + + | Specimen | + + | Blood - Blood | + + + + + + + | Performing | Address | City/State/Zipcode | Phone Number | | Organization | | | | + + + + + | [facility] | [address] | [place] [address] | | | PATHOLOGY | [address] | | | + + + + + INR (11/23/2011 12:02 AM PST) + + + + + + | Component | Value | Ref Range | Performed | Pathologist | | | | | At | Signature | + + + + + + | INR | 1.04Comment: | 0.90 - 1.20 INR | [facility] | | | | INR Therapeutic ranges | | DEPARTMENT | | | | for full | | OF | | | | anticoagulation: | | PATHOLOGY | | | | INR for Venous | | | | | | Thromboembolism | | | | | | (2.0-3.0) | | | | | | INR INR for most | | | | | | patients with mech. | | | | | | valves (2.5-3.5) | | | | | | INR | | | | + + + + + + + + | Specimen | + + | Blood - Blood | + + + + + + + | Performing | Address | City/State/Zipcode | Phone Number | | Organization | | | | + + + + + | [facility] DEPARTMENT [facility] | [address] | [place], [place] [address] | | | PATHOLOGY | [address] | | | + + + + + CBC, WITH DIFFERENTIAL (11/23/2011 12:02 AM PST) + + + + + + | Component | Value | Ref Range | Performed | Pathologist | | | | | At | Signature | + + + + + + | WHITE CELL | 1.0 (*) | 4.4 - 11.0 K/cu | [facility] | | | COUNT | | mm | DEPARTMENT | | | | | | OF | | | | | | PATHOLOGY | | + + + + + + | RED CELL | 3.01 (L) | 4.00 - 5.20 | [facility] | | | COUNT | | M/cu mm | DEPARTMENT | | | | | | OF | | | | | | PATHOLOGY | | + + + + + + | HEMOGLOBIN | 8.3 (L) | 12.0 - 16.0 | [facility] | | | | | g/dL | DEPARTMENT | | | | | | OF | | | | | | PATHOLOGY | | + + + + + + | HEMATOCRIT | 24.3 (L) | 36.0 - 46.0 % | [facility] | | | | | | DEPARTMENT | | | | | | OF | | | | | | PATHOLOGY | | + + + + + + | MCV | 80.7 | 80.0 - 96.0 fL | [facility] | | | | | | DEPARTMENT | | | | | | OF | | | | | | PATHOLOGY | | + + + + + + | MCHC | 34.2 | 33.4 - 35.5 | [facility] | | | | | g/dL | DEPARTMENT | | | | | | OF | | | | | | PATHOLOGY | | + + + + + + | RDW | 14.3 | 11.5 - 15.0 % | [facility] | | | | | | DEPARTMENT | | | | | | OF | | | | | | PATHOLOGY | | + + + + + + | PLATELET | 165 | 150 - 400 K/cu | [facility] | | | COUNT | | mm | DEPARTMENT | | | | | | OF | | | | | | PATHOLOGY | | + + + + + + | CBC | Final automated | | [facility] | | | COMMENTS | differential report. | | DEPARTMENT | | | | Smear reviewed.WBC | | OF | | | | Phoned.Readback. | | PATHOLOGY | | + + + + + + + + | Specimen | + + | Blood - Blood | + + + + + | Narrative | Performed At | + + + | WBC Phoned TO MARK HEATON Readback. @0038 * Corrected 11/23/11 | [facility] | | 04:07: HPANEL COMMENTS, prev report: Slide review pending. WBC | DEPARTMENT OF | | Phoned. Readback. | PATHOLOGY | + + + + + + + + | Performing | Address | City/State/Zipcode | Phone Number | | Organization | | | | + + + + + | [facility] DEPARTMENT OF | [address] | [place] [address] | | | PATHOLOGY | [address] | | | + + + + + CHOLESTEROL TOTAL, PLASMA (11/23/2011 12:02 AM PST) + + + + + + | Component | Value | Ref Range | Performed | Pathologist | | | | | At | Signature | + + + + + + | CHOLESTEROL | 143Comment: | <200 mg/dL | [facility] | | | (LAB) | Cholesterol Reference | | DEPARTMENT | | | | Range: | | OF | | | | Desirable: <200 | | PATHOLOGY | | | | Borderline | | | | | | High: 200 - 239 | | | | | | | | | | | | High: >=240 | | | | | | LDL Cholesterol | | | | | | Reference Range: | | | | | | | | | | | | Optimal: <100 | | | | | | Near Optimal: | | | | | | 100 - 129 | | | | | | Borderline High: | | | | | | 130 - 159 | | | | | | High: | | | | | | 160 - 189 | | | | | | Very High: | | | | | | >=190 | | | | + + + + + + + + | Specimen | + + | Blood - Blood | + + + + + + + | Performing | Address | City/State/Zipcode | Phone Number | | Organization | | | | + + + + + | [facility] DEPARTMENT OF | [address] | [place] [address] | | | PATHOLOGY | [address] | | | + + + + + BILIRUBIN DIRECT (11/23/2011 12:02 AM PST) + +-------+ + + + | Component | Value | Ref Range | Performed | Pathologist | | | | | At | Signature | + +-------+ + + + | BILIRUBIN | 0.2 | <0.4 mg/dL | [facility] | | | DIRECT | | | DEPARTMENT | | | | | | OF | | | | | | PATHOLOGY | | + +-------+ + + + + + | Specimen | + + | Blood - Blood | + + + + + + + | Performing | Address | City/State/Zipcode | Phone Number | | Organization | | | | + + + + + | [facility] | [address] | [place] [address] | | | PATHOLOGY | [address] | | | + + + + + PHOSPHORUS, PLASMA (11/23/2011 12:02 AM PST) + +-------+ + + + | Component | Value | Ref Range | Performed | Pathologist | | | | | At | Signature | + +-------+ + + + | PHOSPHORUS, | 3.3 | 2.4 - 4.7 mg/dL | [facility] | | | PLASMA | | | DEPARTMENT | | | (LAB) | | | OF | | | | | | PATHOLOGY | | + +-------+ + + + + + | Specimen | + + | Blood - Blood | + + + + + + + | Performing | Address | City/State/Zipcode | Phone Number | | Organization | | | | + + + + + | [facility] | [address] | [place] [address] | | | PATHOLOGY | [address] | | | + + + + + MAGNESIUM, PLASMA (11/23/2011 12:02 AM PST) + +-------+ + + + | Component | Value | Ref Range | Performed | Pathologist | | | | | At | Signature | + +-------+ + + + | MAGNESIUM,P | 1.8 | 1.8 - 2.5 mg/dL | [facility] | | | LASMA | | | DEPARTMENT | | | | | | OF | | | | | | PATHOLOGY | | + +-------+ + + + + + | Specimen | + + | Blood - Blood | + + + + + + + | Performing | Address | City/State/Zipcode | Phone Number | | Organization | | | | + + + + + | [facility] DEPARTMENT OF | [address] | [place] [address] | | | PATHOLOGY | [address] | | | + + + + + COMPLETE METABOLIC SET (NA,K,CL,CO2,BUN,CREAT,GLUC,CA,AST,ALT,BILI TOTAL,ALK PHOS,ALB,PROT TOTAL) (11/23/2011 12:02 AM PST) + + + + + + | Component | Value | Ref Range | Performed | Pathologist | | | | | At | Signature | + + + + + + | GLUCOSE, | 110 (H) | 60 - 99 mg/dL | [facility] | | | PLASMA | | | DEPARTMENT | | | (LAB) | | | OF | | | | | | PATHOLOGY | | + + + + + + | BUN, PLASMA | 8 | 6 - 20 mg/dL | [facility] | | | (LAB) | | | DEPARTMENT | | | | | | OF | | | | | | PATHOLOGY | | + + + + + + | CREATININE | 0.54 (L) | 0.60 - 1.10 | [facility] | | | PLASMA | | mg/dL | DEPARTMENT | | | (LAB) | | | OF | | | | | | PATHOLOGY | | + + + + + + | TOTAL | 5.8 (L) | 6.1 - 7.9 g/dL | [facility] | | | PROTEIN, | | | DEPARTMENT | | | PLASMA | | | OF | | | (LAB) | | | PATHOLOGY | | + + + + + + | ALBUMIN, | 2.8 (L) | 3.5 - 4.7 g/dL | [facility] | | | PLASMA | | | DEPARTMENT | | | (LAB) | | | OF | | | | | | PATHOLOGY | | + + + + + + | CALCIUM, | 8.5 (L) | 8.6 - 10.2 | [facility] | | | PLASMA | | mg/dL | DEPARTMENT | | | (LAB) | | | OF | | | | | | PATHOLOGY | | + + + + + + | BILIRUBIN | 0.7 | 0.3 - 1.2 mg/dL | [facility] | | | TOTAL | | | DEPARTMENT | | | | | | OF | | | | | | PATHOLOGY | | + + + + + + | ALK PHOS | 52 | 42 - 98 U/L | [facility] | | | | | | DEPARTMENT | | | | | | OF | | | | | | PATHOLOGY | | + + + + + + | AST(SGOT) | 13 (L) | 15 - 41 U/L | [facility] | | | | | | DEPARTMENT | | | | | | OF | | | | | | PATHOLOGY | | + + + + + + | SODIUM, | 136 | 134 - 143 | [facility] | | | PLASMA | | mmol/L | DEPARTMENT | | | (LAB) | | | OF | | | | | | PATHOLOGY | | + + + + + + | POTASSIUM, | 3.5 | 3.4 - 5.0 | [facility] | | | PLASMA | | mmol/L | DEPARTMENT | | | (LAB) | | | OF | | | | | | PATHOLOGY | | + + + + + + | CHLORIDE, | 101 | 97 - 108 mmol/L | [facility] | | | PLASMA | | | DEPARTMENT | | | (LAB) | | | OF | | | | | | PATHOLOGY | | + + + + + + | TOTAL CO2, | 31 (H) | 22 - 29 mmol/L | [facility] | | | PLASMA | | | DEPARTMENT | | | (LAB) | | | OF | | | | | | PATHOLOGY | | + + + + + + | ALT (SGPT) | 12 (L) | 13 - 48 U/L | [facility] | | | | | | DEPARTMENT | | | | | | OF | | | | | | PATHOLOGY | | + + + + + + | ANION GAP | 4 | 4 - 11 mmol/L | [facility] | | | | | | DEPARTMENT | | | | | | OF | | | | | | PATHOLOGY | | + + + + + + | ANION | 7 | 4 - 11 mmol/L | [facility] | | | GAP(ALB | | | DEPARTMENT | | | CORRECTED) | | | OF | | | | | | PATHOLOGY | | + + + + + + + + | Specimen | + + | Blood - Blood | + + + + + + + | Performing | Address | City/State/Zipcode | Phone Number | | Organization | | | | + + + + + | [facility] DEPARTMENT OF | [address] | [place] [address] | | | PATHOLOGY | [address] | | | + + + + + COAGULOPATHY PANEL (INR,APTT,FIBRINOGEN) (11/23/2011 12:02 AM PST) + + + + + + | Component | Value | Ref Range | Performed | Pathologist | | | | | At | Signature | + + + + + + | INR | 1.04Comment: | 0.90 - 1.20 INR | [facility] | | | | INR Therapeutic ranges | | DEPARTMENT | | | | for full | | OF | | | | anticoagulation: | | PATHOLOGY | | | | INR for Venous | | | | | | Thromboembolism | | | | | | (2.0-3.0) | | | | | | INR INR for most | | | | | | patients with mech. | | | | | | valves (2.5-3.5) | | | | | | INR | | | | + + + + + + | APTT | 31.4Comment: | 26.0 - 36.0 | [facility] | | | | APTT Therapeutic Range | seconds | DEPARTMENT | | | | | | OF | | | | (75-120) | | PATHOLOGY | | | | sec | | | | | | Heparin levels of | | | | | | 0.35-0.7 U/mL | | | | + + + + + + | FIBRINOGEN | 298 | 200 - 450 mg/dL | [facility] | | | LEVEL | | | DEPARTMENT | | | | | | OF | | | | | | PATHOLOGY | | + + + + + + + + | Specimen | + + | Blood - Blood | + + + + + + + | Performing | Address | City/State/Zipcode | Phone Number | | Organization | | | | + + + + + | [facility] DEPARTMENT | [address] | [place] [address] | | | PATHOLOGY | [address] | | | + + + + + LEUKEMIA/LYMPHOMA MARKER - CSF/BODY FLUID (11/23/2011) + + + + + + | Component | Value | Ref Range | Performed | Pathologist | | | | | At | Signature | + + + + + + | HEMATOPATHO | SOURCE OF SPECIMEN:A | | [facility] | | | LOGY | CSF, 1 vial, 1 mL per | | DEPARTMENT | | | | vial Final | | OF | | | | Pathologic | | PATHOLOGY | | | | Diagnosis:Cerebrospinal | | | | | | fluid: - No | | | | | | evidence of malignancy | | | | | | Case reviewed | | | | | | by:Vira Callahan M.D., PhD. | | | | | | / Hematopathology | | | | | | Jose Bowles M.D. 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 The | | | | | | clinician wishes to | | | | | | rule outinvolvement of | | | | | | cerebrospinal fluid | | | | | | (CSF). CSF Cell | | | | | | Count and | | | | | | Differential:Sample | | | | | | Collection Date | | | | | | | | | | | | 11/23/11Code : 12 | | | | | | -[id number] all | | | | | | ZOFIA | | | | | | JONES1960 [id number] | | | | | | IARZ, MATTHEW [facility]-[id number] | | | | | | WRD: REF | | | | | | C:11/23/2011 | | | | | | 14:25R:11/23/2011 | | | | | | Cerebrospinal Fluid | | | | | | | | | | | | CSF Appearance | | | | | | Clear | | | | | | (Clear) | | | | | | CSF Color | | | | | | Colorless | | | | | | (Colorless) | | | | | | Tube # | | | | | | Tube 3 | | | | | | WBC | | | | | | | | | | | | 1 | | | | | | (< 6) | | | | | | /cu mm | | | | | | RBC | | | | | | 1 | | | | | | (< 1) | | | | | | /cu mm | | | | | | Total Cell Count | | | | | | 100 | | | | | | | | | | | | Lymphocytes | | | | | | 55 | | | | | | (40-80) | | | | | | % | | | | | | Monocytes | | | | | | 45 | | | | | | (15-45) | | | | | | % | | | | | | | | | | | | Glucose | | | | | | 66 | | | | | | (40-70) | | | | | | mg/dL | | | | | | Protein | | | | | | 39 | | | | | | (15-45) | | | | | | mg/dL | | | | | | LDH | | | | | | 22 | | | | | | (< 40) | | | | | | U/L Gross | | | | | | Description:Fresh CSF | | | | | | was received in the Flow | | | | | | Cytometry Lab for | | | | | | cytologic and | | | | | | possibleimmunologic | | | | | | evaluation. A | | | | | | Contreras-stained cytoprep | | | | | | was made for | | | | | | cytologicevaluation. | | | | | | Microscopic | | | | | | Description:The cytospin | | | | | | of the concentrated CSF | | | | | | cells was reviewed. It | | | | | | shows a lowcellularity, | | | | | | with scattered acellular | | | | | | debris. The few WBC's | | | | | | present aresmall | | | | | | lymphocytes, monocytes, | | | | | | or macrophages. No | | | | | | atypical cells or | | | | | | blastsare identified. | | | | | | Immunologic | | | | | | Analysis: An analysis | | | | | | was not performed due to | | | | | | the lowcellularity and | | | | | | an absence of | | | | | | morphologic blasts and | | | | | | atypical cells. My | | | | | | electronic signature | | | | | | indicates that I have | | | | | | personally reviewed | | | | | | alldiagnostic slides, | | | | | | the gross and/or | | | | | | microscopic portion of | | | | | | thisreport and | | | | | | formulated the final | | | | | | diagnosis. | | | | | | Rendering Diagnostician: | | | | | | Grover Bowles | | | | | | M.RobertPathologistElectroni | | | | | | carolyn Signed 11/24/2011 | | | | | | 11:21AM | | | | + + + + + + + + | Specimen | + + | Cerebrospinal fluid | | - Cerebrospinal | | fluid | + + + + + + + | Performing | Address | City/State/Zipcode | Phone Number | | Organization | | | | + + + + + | [facility] | [phone] | [place] [address] | | | PATHOLOGY | [address] | | | + + + + + CAPILLARY BLOOD GLUCOSE, POC (11/22/2011 9:50 PM PST) + +---------+ + + + | Component | Value | Ref Range | Performed | Pathologist | | | | | At | Signature | + +---------+ + + + | BLOOD | 148 (H) | 60 - 99 mg/dL | [facility] - | | | GLUCOSE, | | | [facility] | | | POC | | | [place] | | | | | | OF CARE | | | | | | TESTS | | + +---------+ + + + + + | Specimen | + + | | + + + + + + + | Performing | Address | City/State/Zipcode | Phone Number | | Organization | | | | + + + + + | [facility] | [address] | [place], [place] | | | [facility] [place] | [facility] | [phone] | | | TESTS | | | | + + + + + CAPILLARY BLOOD GLUCOSE, POC (11/22/2011 5:52 PM PST) + +---------+ + + + | Component | Value | Ref Range | Performed | Pathologist | | | | | At | Signature | + +---------+ + + + | BLOOD | 162 (H) | 60 - 99 mg/dL | [facility] - | | | GLUCOSE, | | | [place] | | | POC | | | [facility] | | | | | | OF CARE | | | | | | TESTS | | + +---------+ + + + + + | Specimen | + + | | + + + + + + + | Performing | Address | City/State/Zipcode | Phone Number | | Organization | | | | + + + + + | [facility] | [address] | [place], [place] | | | [facility] | [address] | [address] | | | TESTS | | | | + + + + + CAPILLARY BLOOD GLUCOSE, POC (11/22/2011 1:01 PM PST) + +---------+ + + + | Component | Value | Ref Range | Performed | Pathologist | | | | | At | Signature | + +---------+ + + + | BLOOD | 151 (H) | 60 - 99 mg/dL | [facility] - | | | GLUCOSE, | | | [place] | | | POC | | | [facility] | | | | | | OF CARE | | | | | | TESTS | | + +---------+ + + + + + | Specimen | + + | | + + + + + + + | Performing | Address | City/State/Zipcode | Phone Number | | Organization | | | | + + + + + | [facility] | [address] | [place], [place] | | | [facility] [place] | [facility] | [phone] | | | TESTS | | | | + + + + + CAPILLARY BLOOD GLUCOSE, POC (11/22/2011 8:27 AM PST) + +---------+ + + + | Component | Value | Ref Range | Performed | Pathologist | | | | | At | Signature | + +---------+ + + + | BLOOD | 108 (H) | 60 - 99 mg/dL | [facility] - | | | GLUCOSE, | | | [facility] | | | POC | | | [place] [place] | | | | | | OF CARE | | | | | | TESTS | | + +---------+ + + + + + | Specimen | + + | | + + + + + + + | Performing | Address | City/State/Zipcode | Phone Number | | Organization | | | | + + + + + | [facility] | [address] | [place], [place] | | | [facility] | [facility] | [phone] | | | TESTS | | | | + + + + + DIFFERENTIAL (11/22/2011 12:05 AM PST) + +---------+ + + + | Component | Value | Ref Range | Performed | Pathologist | | | | | At | Signature | + +---------+ + + + | NEUTROPHIL | 89 (H) | 50 - 70 % | [facility] | | | % | | | DEPARTMENT | | | | | | OF | | | | | | PATHOLOGY | | + +---------+ + + + | LYMPHOCYTE | 9 (L) | 18 - 42 % | [facility] | | | % | | | DEPARTMENT | | | | | | OF | | | | | | PATHOLOGY | | + +---------+ + + + | MONOCYTE % | 0 (L) | 2 - 8 % | [facility] | | | | | | DEPARTMENT | | | | | | OF | | | | | | PATHOLOGY | | + +---------+ + + + | EOS % | 1 | 1 - 3 % | [facility] | | | | | | DEPARTMENT | | | | | | OF | | | | | | PATHOLOGY | | + +---------+ + + + | BASO % | 0 | <3 % | [facility] | | | | | | DEPARTMENT | | | | | | OF | | | | | | PATHOLOGY | | + +---------+ + + + | NEUTROPHIL | 5.3 | 1.8 - 7.7 K/cu | [facility] | | | # | | mm | DEPARTMENT | | | | | | OF | | | | | | PATHOLOGY | | + +---------+ + + + | LYMPHOCYTE | 0.5 (L) | 1.0 - 4.8 K/cu | [facility] | | | # | | mm | DEPARTMENT | | | | | | OF | | | | | | PATHOLOGY | | + +---------+ + + + | MONOCYTE # | 0.0 | <0.9 K/cu mm | [facility] | | | | | | DEPARTMENT | | | | | | OF | | | | | | PATHOLOGY | | + +---------+ + + + | EOS # | 0.1 | <0.6 K/cu mm | [facility] | | | | | | DEPARTMENT | | | | | | OF | | | | | | PATHOLOGY | | + +---------+ + + + | BASO # | 0.0 | <0.3 | [facility] | | | | | | DEPARTMENT | | | | | | OF | | | | | | PATHOLOGY | | + +---------+ + + + + + | Specimen | + + | | + + + + + | Narrative | Performed At | + + + | * Corrected 11/22/11 01:19: HILARIO COMMENTS, prev report: Slide | [facility] | | review pending. | DEPARTMENT OF | | | PATHOLOGY | + + + + + + + + | Performing | Address | City/State/Zipcode | Phone Number | | Organization | | | | + + + + + | [facility] DEPARTMENT OF | [address] | [place] [address] | | | PATHOLOGY | [address] | | | + + + + + URIC ACID, PLASMA (11/22/2011 12:05 AM PST) + +-------+ + + + | Component | Value | Ref Range | Performed | Pathologist | | | | | At | Signature | + +-------+ + + + | URIC ACID, | 3.5 | 2.5 - 6.2 mg/dL | [facility] | | | PLASMA | | | DEPARTMENT | | | (LAB) | | | OF | | | | | | PATHOLOGY | | + +-------+ + + + + + | Specimen | + + | Blood - Blood | + + + + + + + | Performing | Address | City/State/Zipcode | Phone Number | | Organization | | | | + + + + + | [facility] DEPARTMENT OF | [address] | [place] [address] | | | PATHOLOGY | [address] | | | + + + + + LDH TOTAL, PLASMA (11/22/2011 12:05 AM PST) + +-------+ + + + | Component | Value | Ref Range | Performed | Pathologist | | | | | At | Signature | + +-------+ + + + | LD TOTAL, | 151 | 110 - 205 U/L | [facility] | | | PLASMA | | | DEPARTMENT | | | | | | OF | | | | | | PATHOLOGY | | + +-------+ + + + + + | Specimen | + + | Blood - Blood | + + + + + + + | Performing | Address | City/State/Zipcode | Phone Number | | Organization | | | | + + + + + | [facility] | [address] | [place] [address] | | | PATHOLOGY | [address] | | | + + + + + CBC, WITH DIFFERENTIAL (11/22/2011 12:05 AM PST) + + + + + + | Component | Value | Ref Range | Performed | Pathologist | | | | | At | Signature | + + + + + + | WHITE CELL | 5.9 | 4.4 - 11.0 K/cu | [facility] | | | COUNT | | mm | DEPARTMENT | | | | | | OF | | | | | | PATHOLOGY | | + + + + + + | RED CELL | 3.07 (L) | 4.00 - 5.20 | [facility] | | | COUNT | | M/cu mm | DEPARTMENT | | | | | | OF | | | | | | PATHOLOGY | | + + + + + + | HEMOGLOBIN | 8.3 (L) | 12.0 - 16.0 | [facility] | | | | | g/dL | DEPARTMENT | | | | | | OF | | | | | | PATHOLOGY | | + + + + + + | HEMATOCRIT | 24.9 (L) | 36.0 - 46.0 % | [facility] | | | | | | DEPARTMENT | | | | | | OF | | | | | | PATHOLOGY | | + + + + + + | MCV | 81.1 | 80.0 - 96.0 fL | [facility] | | | | | | DEPARTMENT | | | | | | OF | | | | | | PATHOLOGY | | + + + + + + | MCHC | 33.3 (L) | 33.4 - 35.5 | [facility] | | | | | g/dL | DEPARTMENT | | | | | | OF | | | | | | PATHOLOGY | | + + + + + + | RDW | 14.4 | 11.5 - 15.0 % | [facility] | | | | | | DEPARTMENT | | | | | | OF | | | | | | PATHOLOGY | | + + + + + + | PLATELET | 188 | 150 - 400 K/cu | [facility] | | | COUNT | | mm | DEPARTMENT | | | | | | OF | | | | | | PATHOLOGY | | + + + + + + | CBC | Final automated | | [facility] | | | COMMENTS | differential report. | | DEPARTMENT | | | | Smear reviewed. | | OF | | | | | | PATHOLOGY | | + + + + + + | DIFF | <or= 10% bands seen on | | [facility] | | | COMMENTS | scan.Vacuolated Polys | | DEPARTMENT | | | | present. | | OF | | | | | | PATHOLOGY | | + + + + + + + + | Specimen | + + | Blood - Blood | + + + + + | Narrative | Performed At | + + + | * Corrected 11/22/11 01:19: RACHAELNEL COMMENTS, prev report: Slide | [facility] | | review pending. | DEPARTMENT OF | | | PATHOLOGY | + + + + + + + + | Performing | Address | City/State/Zipcode | Phone Number | | Organization | | | | + + + + + | [facility] DEPARTMENT OF | [address] | [place] [address] | | | PATHOLOGY | [address] | | | + + + + + PHOSPHORUS, PLASMA (11/22/2011 12:05 AM PST) + +-------+ + + + | Component | Value | Ref Range | Performed | Pathologist | | | | | At | Signature | + +-------+ + + + | PHOSPHORUS, | 3.1 | 2.4 - 4.7 mg/dL | [facility] | | | PLASMA | | | DEPARTMENT | | | (LAB) | | | OF | | | | | | PATHOLOGY | | + +-------+ + + + + + | Specimen | + + | Blood - Blood | + + + + + + + | Performing | Address | City/State/Zipcode | Phone Number | | Organization | | | | + + + + + | [facility] | [address] | [place] [address] | | | PATHOLOGY | [address] | | | + + + + + MAGNESIUM, PLASMA (11/22/2011 12:05 AM PST) + +---------+ + + + | Component | Value | Ref Range | Performed | Pathologist | | | | | At | Signature | + +---------+ + + + | MAGNESIUM,P | 1.7 (L) | 1.8 - 2.5 mg/dL | [facility] | | | LASMA | | | DEPARTMENT | | | | | | OF | | | | | | PATHOLOGY | | + +---------+ + + + + + | Specimen | + + | Blood - Blood | + + + + + + + | Performing | Address | City/State/Zipcode | Phone Number | | Organization | | | | + + + + + | [facility] DEPARTMENT OF | [address] | [place] [address] | | | PATHOLOGY | [address] | | | + + + + + COMPLETE METABOLIC SET (NA,K,CL,CO2,BUN,CREAT,GLUC,CA,AST,ALT,BILI TOTAL,ALK PHOS,ALB,PROT TOTAL) (11/22/2011 12:05 AM PST) + + + + + + | Component | Value | Ref Range | Performed | Pathologist | | | | | At | Signature | + + + + + + | GLUCOSE, | 102 (H) | 60 - 99 mg/dL | [facility] | | | PLASMA | | | DEPARTMENT | | | (LAB) | | | OF | | | | | | PATHOLOGY | | + + + + + + | BUN, PLASMA | 9 | 6 - 20 mg/dL | [facility] | | | (LAB) | | | DEPARTMENT | | | | | | OF | | | | | | PATHOLOGY | | + + + + + + | CREATININE | 0.46 (L) | 0.60 - 1.10 | [facility] | | | PLASMA | | mg/dL | DEPARTMENT | | | (LAB) | | | OF | | | | | | PATHOLOGY | | + + + + + + | TOTAL | 5.3 (L) | 6.1 - 7.9 g/dL | [facility] | | | PROTEIN, | | | DEPARTMENT | | | PLASMA | | | OF | | | (LAB) | | | PATHOLOGY | | + + + + + + | ALBUMIN, | 2.6 (L) | 3.5 - 4.7 g/dL | [facility] | | | PLASMA | | | DEPARTMENT | | | (LAB) | | | OF | | | | | | PATHOLOGY | | + + + + + + | CALCIUM, | 8.2 (L) | 8.6 - 10.2 | [facility] | | | PLASMA | | mg/dL | DEPARTMENT | | | (LAB) | | | OF | | | | | | PATHOLOGY | | + + + + + + | BILIRUBIN | 0.9 | 0.3 - 1.2 mg/dL | [facility] | | | TOTAL | | | DEPARTMENT | | | | | | OF | | | | | | PATHOLOGY | | + + + + + + | ALK PHOS | 49 | 42 - 98 U/L | [facility] | | | | | | DEPARTMENT | | | | | | OF | | | | | | PATHOLOGY | | + + + + + + | AST(SGOT) | 13 (L) | 15 - 41 U/L | [facility] | | | | | | DEPARTMENT | | | | | | OF | | | | | | PATHOLOGY | | + + + + + + | SODIUM, | 134 | 134 - 143 | [facility] | | | PLASMA | | mmol/L | DEPARTMENT | | | (LAB) | | | OF | | | | | | PATHOLOGY | | + + + + + + | POTASSIUM, | 3.6 | 3.4 - 5.0 | [facility] | | | PLASMA | | mmol/L | DEPARTMENT | | | (LAB) | | | OF | | | | | | PATHOLOGY | | + + + + + + | CHLORIDE, | 100 | 97 - 108 mmol/L | [facility] | | | PLASMA | | | DEPARTMENT | | | (LAB) | | | OF | | | | | | PATHOLOGY | | + + + + + + | TOTAL CO2, | 30 (H) | 22 - 29 mmol/L | [facility] | | | PLASMA | | | DEPARTMENT | | | (LAB) | | | OF | | | | | | PATHOLOGY | | + + + + + + | ALT (SGPT) | 12 (L) | 13 - 48 U/L | [facility] | | | | | | DEPARTMENT | | | | | | OF | | | | | | PATHOLOGY | | + + + + + + | ANION GAP | 4 | 4 - 11 mmol/L | [facility] | | | | | | DEPARTMENT | | | | | | OF | | | | | | PATHOLOGY | | + + + + + + | ANION | 7 | 4 - 11 mmol/L | [facility] | | | GAP(ALB | | | DEPARTMENT | | | CORRECTED) | | | OF | | | | | | PATHOLOGY | | + + + + + + + + | Specimen | + + | Blood - Blood | + + + + + + + | Performing | Address | City/State/Zipcode | Phone Number | | Organization | | | | + + + + + | [facility] | [address] | [place] [address] | | | PATHOLOGY | [address] | | | + + + + + CAPILLARY BLOOD GLUCOSE, POC (11/21/2011 9:46 PM PST) + +---------+ + + + | Component | Value | Ref Range | Performed | Pathologist | | | | | At | Signature | + +---------+ + + + | BLOOD | 105 (H) | 60 - 99 mg/dL | [facility] - | | | GLUCOSE, | | | [facility] | | | POC | | | [facility] | | | | | | OF CARE | | | | | | TESTS | | + +---------+ + + + + + | Specimen | + + | | + + + + + + + | Performing | Address | City/State/Zipcode | Phone Number | | Organization | | | | + + + + + | [facility] | [address] | [place], [place] | | | [facility] | [facility] | [address] | | | TESTS | | | | + + + + + CAPILLARY BLOOD GLUCOSE, POC (11/21/2011 5:29 PM PST) + +---------+ + + + | Component | Value | Ref Range | Performed | Pathologist | | | | | At | Signature | + +---------+ + + + | BLOOD | 151 (H) | 60 - 99 mg/dL | [facility] - | | | GLUCOSE, | | | [facility] | | | POC | | | [facility] | | | | | | OF CARE | | | | | | TESTS | | + +---------+ + + + + + | Specimen | + + | | + + + + + + + | Performing | Address | City/State/Zipcode | Phone Number | | Organization | | | | + + + + + | [facility] | [address] | [place], [place] | | | [facility] [place] | [address] | [address] | | | TESTS | | | | + + + + + CAPILLARY BLOOD GLUCOSE, POC (11/21/2011 12:40 PM PST) + +---------+ + + + | Component | Value | Ref Range | Performed | Pathologist | | | | | At | Signature | + +---------+ + + + | BLOOD | 139 (H) | 60 - 99 mg/dL | [facility] - | | | GLUCOSE, | | | [facility] | | | POC | | | [facility] | | | | | | OF CARE | | | | | | TESTS | | + +---------+ + + + + + | Specimen | + + | | + + + + + + + | Performing | Address | City/State/Zipcode | Phone Number | | Organization | | | | + + + + + | [facility] | [address] | [place], [place] | | | [facility] | [address] | [address] | | | TESTS | | | | + + + + + CAPILLARY BLOOD GLUCOSE, POC (11/21/2011 8:01 AM PST) + +---------+ + + + | Component | Value | Ref Range | Performed | Pathologist | | | | | At | Signature | + +---------+ + + + | BLOOD | 103 (H) | 60 - 99 mg/dL | [facility] | | | GLUCOSE, | | | [facility] | | | POC | | | [facility] | | | | | | OF CARE | | | | | | TESTS | | + +---------+ + + + + + | Specimen | + + | | + + + + + + + | Performing | Address | City/State/Zipcode | Phone Number | | Organization | | | | + + + + + | [facility] | [address] | [place], [place] | | | [facility] | [address] | [address] | | | TESTS | | | | + + + + + DIFFERENTIAL (11/21/2011 12:40 AM PST) + + + + + + | Component | Value | Ref Range | Performed | Pathologist | | | | | At | Signature | + + + + + + | NEUTROPHIL | 95 (H) | 50 - 70 % | [facility] | | | % | | | DEPARTMENT | | | | | | OF | | | | | | PATHOLOGY | | + + + + + + | LYMPHOCYTE | 4 (L) | 18 - 42 % | [facility] | | | % | | | DEPARTMENT | | | | | | OF | | | | | | PATHOLOGY | | + + + + + + | MONOCYTE % | 0 (L) | 2 - 8 % | [facility] | | | | | | DEPARTMENT | | | | | | OF | | | | | | PATHOLOGY | | + + + + + + | EOS % | 1 | 1 - 3 % | [facility] | | | | | | DEPARTMENT | | | | | | OF | | | | | | PATHOLOGY | | + + + + + + | BASO % | 0 | <3 % | [facility] | | | | | | DEPARTMENT | | | | | | OF | | | | | | PATHOLOGY | | + + + + + + | NEUTROPHIL | 12.9 (H) | 1.8 - 7.7 K/cu | [facility] | | | # | | mm | DEPARTMENT | | | | | | OF | | | | | | PATHOLOGY | | + + + + + + | LYMPHOCYTE | 0.5 (L) | 1.0 - 4.8 K/cu | [facility] | | | # | | mm | DEPARTMENT | | | | | | OF | | | | | | PATHOLOGY | | + + + + + + | MONOCYTE # | 0.0 | <0.9 K/cu mm | [facility] | | | | | | DEPARTMENT | | | | | | OF | | | | | | PATHOLOGY | | + + + + + + | EOS # | 0.1 | <0.6 K/cu mm | [facility] | | | | | | DEPARTMENT | | | | | | OF | | | | | | PATHOLOGY | | + + + + + + | BASO # | 0.0 | <0.3 | [facility] | | | | | | DEPARTMENT | | | | | | OF | | | | | | PATHOLOGY | | + + + + + + + + | Specimen | + + | | + + + + + | Narrative | Performed At | + + + | * Corrected 11/21/11 04:50: HILARIO COMMENTS, prev report: Slide | [facility] | | review pending. | DEPARTMENT OF | | | PATHOLOGY | + + + + + + + + | Performing | Address | City/State/Zipcode | Phone Number | | Organization | | | | + + + + + | [facility] DEPARTMENT OF | [address] | [place] [address] | | | PATHOLOGY | [address] | | | + + + + + VRE (KATLYN) BY PCR (11/21/2011 12:40 AM PST) + + + + + + | Component | Value | Ref Range | Performed | Pathologist | | | | | At | Signature | + + + + + + | VRE BY PCR | Negative for Katlyn gene | | [facility] | | | | VRE | | DEPARTMENT | | | | | | OF | | | | | | PATHOLOGY | | + + + + + + + + | Specimen | + + | Swab - Stool | + + + + + + + | Performing | Address | City/State/Zipcode | Phone Number | | Organization | | | | + + + + + | [facility] DEPARTMENT OF | [address] | [place] [address] | | | PATHOLOGY | [address] | | | + + + + + URIC ACID, PLASMA (11/21/2011 12:40 AM PST) + +-------+ + + + | Component | Value | Ref Range | Performed | Pathologist | | | | | At | Signature | + +-------+ + + + | URIC ACID, | 3.6 | 2.5 - 6.2 mg/dL | [facility] | | | PLASMA | | | DEPARTMENT | | | (LAB) | | | OF | | | | | | PATHOLOGY | | + +-------+ + + + + + | Specimen | + + | Blood - Blood | + + + + + + + | Performing | Address | City/State/Zipcode | Phone Number | | Organization | | | | + + + + + | [facility] | [address] | [place] [address] | | | PATHOLOGY | [address] | | | + + + + + LDH TOTAL, PLASMA (11/21/2011 12:40 AM PST) + +-------+ + + + | Component | Value | Ref Range | Performed | Pathologist | | | | | At | Signature | + +-------+ + + + | LD TOTAL, | 171 | 110 - 205 U/L | [facility] | | | PLASMA | | | DEPARTMENT | | | | | | OF | | | | | | PATHOLOGY | | + +-------+ + + + + + | Specimen | + + | Blood - Blood | + + + + + + + | Performing | Address | City/State/Zipcode | Phone Number | | Organization | | | | + + + + + | [facility] DEPARTMENT OF | [address] | [place] [address] | | | PATHOLOGY | [address] | | | + + + + + CBC, WITH DIFFERENTIAL (11/21/2011 12:40 AM PST) + + + + + + | Component | Value | Ref Range | Performed | Pathologist | | | | | At | Signature | + + + + + + | WHITE CELL | 13.6 (H) | 4.4 - 11.0 K/cu | [facility] | | | COUNT | | mm | DEPARTMENT | | | | | | OF | | | | | | PATHOLOGY | | + + + + + + | RED CELL | 3.24 (L) | 4.00 - 5.20 | [facility] | | | COUNT | | M/cu mm | DEPARTMENT | | | | | | OF | | | | | | PATHOLOGY | | + + + + + + | HEMOGLOBIN | 8.9 (L) | 12.0 - 16.0 | [facility] | | | | | g/dL | DEPARTMENT | | | | | | OF | | | | | | PATHOLOGY | | + + + + + + | HEMATOCRIT | 26.5 (L) | 36.0 - 46.0 % | [facility] | | | | | | DEPARTMENT | | | | | | OF | | | | | | PATHOLOGY | | + + + + + + | MCV | 82.0 | 80.0 - 96.0 fL | [facility] | | | | | | DEPARTMENT | | | | | | OF | | | | | | PATHOLOGY | | + + + + + + | MCHC | 33.7 | 33.4 - 35.5 | [facility] | | | | | g/dL | DEPARTMENT | | | | | | OF | | | | | | PATHOLOGY | | + + + + + + | RDW | 14.2 | 11.5 - 15.0 % | [facility] | | | | | | DEPARTMENT | | | | | | OF | | | | | | PATHOLOGY | | + + + + + + | PLATELET | 237 | 150 - 400 K/cu | [facility] | | | COUNT | | mm | DEPARTMENT | | | | | | OF | | | | | | PATHOLOGY | | + + + + + + | CBC | Final automated | | [facility] | | | COMMENTS | differential report. | | DEPARTMENT | | | | Smear reviewed. | | OF | | | | | | PATHOLOGY | | + + + + + + + + | Specimen | + + | Blood - Blood | + + + + + | Narrative | Performed At | + + + | * Corrected 11/21/11 04:50: RACHAELNEL COMMENTS, prev report: Slide | [facility] | | review pending. | DEPARTMENT OF | | | PATHOLOGY | + + + + + + + + | Performing | Address | City/State/Zipcode | Phone Number | | Organization | | | | + + + + + | [facility] DEPARTMENT OF | [address] | [place] [address] | | | PATHOLOGY | [address] | | | + + + + + PHOSPHORUS, PLASMA (11/21/2011 12:40 AM PST) + +-------+ + + + | Component | Value | Ref Range | Performed | Pathologist | | | | | At | Signature | + +-------+ + + + | PHOSPHORUS, | 3.3 | 2.4 - 4.7 mg/dL | [facility] | | | PLASMA | | | DEPARTMENT | | | (LAB) | | | OF | | | | | | PATHOLOGY | | + +-------+ + + + + + | Specimen | + + | Blood - Blood | + + + + + + + | Performing | Address | City/State/Zipcode | Phone Number | | Organization | | | | + + + + + | [facility] | [address] | [place] [address] | | | PATHOLOGY | [address] | | | + + + + + MAGNESIUM, PLASMA (11/21/2011 12:40 AM PST) + +---------+ + + + | Component | Value | Ref Range | Performed | Pathologist | | | | | At | Signature | + +---------+ + + + | MAGNESIUM,P | 1.7 (L) | 1.8 - 2.5 mg/dL | [facility] | | | LASMA | | | DEPARTMENT | | | | | | OF | | | | | | PATHOLOGY | | + +---------+ + + + + + | Specimen | + + | Blood - Blood | + + + + + + + | Performing | Address | City/State/Zipcode | Phone Number | | Organization | | | | + + + + + | [facility] DEPARTMENT OF | [address] | [place] [address] | | | PATHOLOGY | [address] | | | + + + + + COMPLETE METABOLIC SET (NA,K,CL,CO2,BUN,CREAT,GLUC,CA,AST,ALT,BILI TOTAL,ALK PHOS,ALB,PROT TOTAL) (11/21/2011 12:40 AM PST) + + + + + + | Component | Value | Ref Range | Performed | Pathologist | | | | | At | Signature | + + + + + + | GLUCOSE, | 99 | 60 - 99 mg/dL | [facility] | | | PLASMA | | | DEPARTMENT | | | (LAB) | | | OF | | | | | | PATHOLOGY | | + + + + + + | BUN, PLASMA | 12 | 6 - 20 mg/dL | [facility] | | | (LAB) | | | DEPARTMENT | | | | | | OF | | | | | | PATHOLOGY | | + + + + + + | CREATININE | 0.54 (L) | 0.60 - 1.10 | [facility] | | | PLASMA | | mg/dL | DEPARTMENT | | | (LAB) | | | OF | | | | | | PATHOLOGY | | + + + + + + | TOTAL | 5.4 (L) | 6.1 - 7.9 g/dL | [facility] | | | PROTEIN, | | | DEPARTMENT | | | PLASMA | | | OF | | | (LAB) | | | PATHOLOGY | | + + + + + + | ALBUMIN, | 2.7 (L) | 3.5 - 4.7 g/dL | [facility] | | | PLASMA | | | DEPARTMENT | | | (LAB) | | | OF | | | | | | PATHOLOGY | | + + + + + + | CALCIUM, | 8.1 (L) | 8.6 - 10.2 | [facility] | | | PLASMA | | mg/dL | DEPARTMENT | | | (LAB) | | | OF | | | | | | PATHOLOGY | | + + + + + + | BILIRUBIN | 0.8 | 0.3 - 1.2 mg/dL | [facility] | | | TOTAL | | | DEPARTMENT | | | | | | OF | | | | | | PATHOLOGY | | + + + + + + | ALK PHOS | 50 | 42 - 98 U/L | [facility] | | | | | | DEPARTMENT | | | | | | OF | | | | | | PATHOLOGY | | + + + + + + | AST(SGOT) | 14 (L) | 15 - 41 U/L | [facility] | | | | | | DEPARTMENT | | | | | | OF | | | | | | PATHOLOGY | | + + + + + + | SODIUM, | 139 | 134 - 143 | [facility] | | | PLASMA | | mmol/L | DEPARTMENT | | | (LAB) | | | OF | | | | | | PATHOLOGY | | + + + + + + | POTASSIUM, | 3.5 | 3.4 - 5.0 | [facility] | | | PLASMA | | mmol/L | DEPARTMENT | | | (LAB) | | | OF | | | | | | PATHOLOGY | | + + + + + + | CHLORIDE, | 103 | 97 - 108 mmol/L | [facility] | | | PLASMA | | | DEPARTMENT | | | (LAB) | | | OF | | | | | | PATHOLOGY | | + + + + + + | TOTAL CO2, | 30 (H) | 22 - 29 mmol/L | [facility] | | | PLASMA | | | DEPARTMENT | | | (LAB) | | | OF | | | | | | PATHOLOGY | | + + + + + + | ALT (SGPT) | 13 | 13 - 48 U/L | [facility] | | | | | | DEPARTMENT | | | | | | OF | | | | | | PATHOLOGY | | + + + + + + | ANION GAP | 6 | 4 - 11 mmol/L | [facility] | | | | | | DEPARTMENT | | | | | | OF | | | | | | PATHOLOGY | | + + + + + + | ANION | 9 | 4 - 11 mmol/L | [facility] | | | GAP(ALB | | | DEPARTMENT | | | CORRECTED) | | | OF | | | | | | PATHOLOGY | | + + + + + + + + | Specimen | + + | Blood - Blood | + + + + + + + | Performing | Address | City/State/Zipcode | Phone Number | | Organization | | | | + + + + + | [facility] | [address] | [place] [address] | | | PATHOLOGY | [address] | | | + + + + + CAPILLARY BLOOD GLUCOSE, POC (11/20/2011 9:59 PM PST) + +---------+ + + + | Component | Value | Ref Range | Performed | Pathologist | | | | | At | Signature | + +---------+ + + + | BLOOD | 116 (H) | 60 - 99 mg/dL | [facility] | | | GLUCOSE, | | | [facility] | | | POC | | | [place] [place] | | | | | | OF CARE | | | | | | TESTS | | + +---------+ + + + + + | Specimen | + + | | + + + + + + + | Performing | Address | City/State/Zipcode | Phone Number | | Organization | | | | + + + + + | [facility] | [address] | [place], [place] | | | [facility] | [facility] | [phone] | | | TESTS | | | | + + + + + CAPILLARY BLOOD GLUCOSE, POC (11/20/2011 6:33 PM PST) + +---------+ + + + | Component | Value | Ref Range | Performed | Pathologist | | | | | At | Signature | + +---------+ + + + | BLOOD | 138 (H) | 60 - 99 mg/dL | [facility] | | | GLUCOSE, | | | [facility] | | | POC | | | [facility] | | | | | | OF CARE | | | | | | TESTS | | + +---------+ + + + + + | Specimen | + + | | + + + + + + + | Performing | Address | City/State/Zipcode | Phone Number | | Organization | | | | + + + + + | [facility] | [address] | [place], [place] | | | [facility] | [address] | [address] | | | TESTS | | | | + + + + + CAPILLARY BLOOD GLUCOSE, POC (11/20/2011 1:28 PM PST) + +---------+ + + + | Component | Value | Ref Range | Performed | Pathologist | | | | | At | Signature | + +---------+ + + + | BLOOD | 144 (H) | 60 - 99 mg/dL | [facility] | | | GLUCOSE, | | | [facility] | | | POC | | | [facility] | | | | | | OF CARE | | | | | | TESTS | | + +---------+ + + + + + | Specimen | + + | | + + + + + + + | Performing | Address | City/State/Zipcode | Phone Number | | Organization | | | | + + + + + | [facility] | [address] | [place], [place] | | | [facility] | [address] | [phone] | | | TESTS | | | | + + + + + CAPILLARY BLOOD GLUCOSE, POC (11/20/2011 7:54 AM PST) + +-------+ + + + | Component | Value | Ref Range | Performed | Pathologist | | | | | At | Signature | + +-------+ + + + | BLOOD | 89 | 60 - 99 mg/dL | [facility] | | | GLUCOSE, | | | [facility] | | | POC | | | [facility] | | | | | | OF CARE | | | | | | TESTS | | + +-------+ + + + + + | Specimen | + + | | + + + + + + + | Performing | Address | City/State/Zipcode | Phone Number | | Organization | | | | + + + + + | [facility] | [address] | [place], [place] | | | [facility] | [address] | [address] | | | TESTS | | | | + + + + + DIFFERENTIAL (11/20/2011 12:10 AM PST) + +---------+ + + + | Component | Value | Ref Range | Performed | Pathologist | | | | | At | Signature | + +---------+ + + + | NEUTROPHIL | 91 (H) | 50 - 70 % | [facility] | | | % | | | DEPARTMENT | | | | | | OF | | | | | | PATHOLOGY | | + +---------+ + + + | LYMPHOCYTE | 7 (L) | 18 - 42 % | [facility] | | | % | | | DEPARTMENT | | | | | | OF | | | | | | PATHOLOGY | | + +---------+ + + + | MONOCYTE % | 2 | 2 - 8 % | [facility] | | | | | | DEPARTMENT | | | | | | OF | | | | | | PATHOLOGY | | + +---------+ + + + | EOS % | 0 (L) | 1 - 3 % | [facility] | | | | | | DEPARTMENT | | | | | | OF | | | | | | PATHOLOGY | | + +---------+ + + + | BASO % | 0 | <3 % | [facility] | | | | | | DEPARTMENT | | | | | | OF | | | | | | PATHOLOGY | | + +---------+ + + + | NEUTROPHIL | 6.3 | 1.8 - 7.7 K/cu | [facility] | | | # | | mm | DEPARTMENT | | | | | | OF | | | | | | PATHOLOGY | | + +---------+ + + + | LYMPHOCYTE | 0.5 (L) | 1.0 - 4.8 K/cu | [facility] | | | # | | mm | DEPARTMENT | | | | | | OF | | | | | | PATHOLOGY | | + +---------+ + + + | MONOCYTE # | 0.1 | <0.9 K/cu mm | [facility] | | | | | | DEPARTMENT | | | | | | OF | | | | | | PATHOLOGY | | + +---------+ + + + | EOS # | 0.0 | <0.6 K/cu mm | [facility] | | | | | | DEPARTMENT | | | | | | OF | | | | | | PATHOLOGY | | + +---------+ + + + | BASO # | 0.0 | <0.3 | [facility] | | | | | | DEPARTMENT | | | | | | OF | | | | | | PATHOLOGY | | + +---------+ + + + + + | Specimen | + + | | + + + + + + + | Performing | Address | City/State/Zipcode | Phone Number | | Organization | | | | + + + + + | [facility] | [phone] | [place] [address] | | | PATHOLOGY | [address] | | | + + + + + URIC ACID, PLASMA (11/20/2011 12:10 AM PST) + +-------+ + + + | Component | Value | Ref Range | Performed | Pathologist | | | | | At | Signature | + +-------+ + + + | URIC ACID, | 3.7 | 2.5 - 6.2 mg/dL | [facility] | | | PLASMA | | | DEPARTMENT | | | (LAB) | | | OF | | | | | | PATHOLOGY | | + +-------+ + + + + + | Specimen | + + | Blood - Blood | + + + + + + + | Performing | Address | City/State/Zipcode | Phone Number | | Organization | | | | + + + + + | [facility] | [address] | [place] [address] | | | PATHOLOGY | [address] | | | + + + + + LDH TOTAL, PLASMA (11/20/2011 12:10 AM PST) + +-------+ + + + | Component | Value | Ref Range | Performed | Pathologist | | | | | At | Signature | + +-------+ + + + | LD TOTAL, | 171 | 110 - 205 U/L | [facility] | | | PLASMA | | | DEPARTMENT | | | | | | OF | | | | | | PATHOLOGY | | + +-------+ + + + + + | Specimen | + + | Blood - Blood | + + + + + + + | Performing | Address | City/State/Zipcode | Phone Number | | Organization | | | | + + + + + | [facility] DEPARTMENT OF | [address] | [place] [address] | | | PATHOLOGY | [address] | | | + + + + + CBC, WITH DIFFERENTIAL (11/20/2011 12:10 AM PST) + + + + + + | Component | Value | Ref Range | Performed | Pathologist | | | | | At | Signature | + + + + + + | WHITE CELL | 6.9 | 4.4 - 11.0 K/cu | [facility] | | | COUNT | | mm | DEPARTMENT | | | | | | OF | | | | | | PATHOLOGY | | + + + + + + | RED CELL | 3.23 (L) | 4.00 - 5.20 | [facility] | | | COUNT | | M/cu mm | DEPARTMENT | | | | | | OF | | | | | | PATHOLOGY | | + + + + + + | HEMOGLOBIN | 8.8 (L) | 12.0 - 16.0 | [facility] | | | | | g/dL | DEPARTMENT | | | | | | OF | | | | | | PATHOLOGY | | + + + + + + | HEMATOCRIT | 26.4 (L) | 36.0 - 46.0 % | [facility] | | | | | | DEPARTMENT | | | | | | OF | | | | | | PATHOLOGY | | + + + + + + | MCV | 81.7 | 80.0 - 96.0 fL | [facility] | | | | | | DEPARTMENT | | | | | | OF | | | | | | PATHOLOGY | | + + + + + + | MCHC | 33.2 (L) | 33.4 - 35.5 | [facility] | | | | | g/dL | DEPARTMENT | | | | | | OF | | | | | | PATHOLOGY | | + + + + + + | RDW | 13.7 | 11.5 - 15.0 % | [facility] | | | | | | DEPARTMENT | | | | | | OF | | | | | | PATHOLOGY | | + + + + + + | PLATELET | 279 | 150 - 400 K/cu | [facility] | | | COUNT | | mm | DEPARTMENT | | | | | | OF | | | | | | PATHOLOGY | | + + + + + + + + | Specimen | + + | Blood - Blood | + + + + + + + | Performing | Address | City/State/Zipcode | Phone Number | | Organization | | | | + + + + + | [facility] DE[facility]MENT [facility] | [address] | [place] [address] | | | PATHOLOGY | [address] | | | + + + + + PHOSPHORUS, PLASMA (11/20/2011 12:10 AM PST) + +-------+ + + + | Component | Value | Ref Range | Performed | Pathologist | | | | | At | Signature | + +-------+ + + + | PHOSPHORUS, | 3.1 | 2.4 - 4.7 mg/dL | [facility] | | | PLASMA | | | DEPARTMENT | | | (LAB) | | | OF | | | | | | PATHOLOGY | | + +-------+ + + + + + | Specimen | + + | Blood - Blood | + + + + + + + | Performing | Address | City/State/Zipcode | Phone Number | | Organization | | | | + + + + + | [facility] DEPARTMENT OF | [address] | [place] [address] | | | PATHOLOGY | [address] | | | + + + + + MAGNESIUM, PLASMA (11/20/2011 12:10 AM PST) + +-------+ + + + | Component | Value | Ref Range | Performed | Pathologist | | | | | At | Signature | + +-------+ + + + | MAGNESIUM,P | 2.0 | 1.8 - 2.5 mg/dL | [facility] | | | LASMA | | | DEPARTMENT | | | | | | OF | | | | | | PATHOLOGY | | + +-------+ + + + + + | Specimen | + + | Blood - Blood | + + + + + + + | Performing | Address | City/State/Zipcode | Phone Number | | Organization | | | | + + + + + | [facility] | [address] [facility] | [place] [address] | | | PATHOLOGY | [address] | | | + + + + + COMPLETE METABOLIC SET (NA,K,CL,CO2,BUN,CREAT,GLUC,CA,AST,ALT,BILI TOTAL,ALK PHOS,ALB,PROT TOTAL) (11/20/2011 12:10 AM PST) + +---------+ + + + | Component | Value | Ref Range | Performed | Pathologist | | | | | At | Signature | + +---------+ + + + | GLUCOSE, | 173 (H) | 60 - 99 mg/dL | [facility] | | | PLASMA | | | DEPARTMENT | | | (LAB) | | | OF | | | | | | PATHOLOGY | | + +---------+ + + + | BUN, PLASMA | 13 | 6 - 20 mg/dL | [facility] | | | (LAB) | | | DEPARTMENT | | | | | | OF | | | | | | PATHOLOGY | | + +---------+ + + + | CREATININE | 0.65 | 0.60 - 1.10 | [facility] | | | PLASMA | | mg/dL | DEPARTMENT | | | (LAB) | | | OF | | | | | | PATHOLOGY | | + +---------+ + + + | TOTAL | 5.0 (L) | 6.1 - 7.9 g/dL | [facility] | | | PROTEIN, | | | DEPARTMENT | | | PLASMA | | | OF | | | (LAB) | | | PATHOLOGY | | + +---------+ + + + | ALBUMIN, | 2.5 (L) | 3.5 - 4.7 g/dL | [facility] | | | PLASMA | | | DEPARTMENT | | | (LAB) | | | OF | | | | | | PATHOLOGY | | + +---------+ + + + | CALCIUM, | 7.7 (L) | 8.6 - 10.2 | [facility] | | | PLASMA | | mg/dL | DEPARTMENT | | | (LAB) | | | OF | | | | | | PATHOLOGY | | + +---------+ + + + | BILIRUBIN | 0.6 | 0.3 - 1.2 mg/dL | [facility] | | | TOTAL | | | DEPARTMENT | | | | | | OF | | | | | | PATHOLOGY | | + +---------+ + + + | ALK PHOS | 45 | 42 - 98 U/L | [facility] | | | | | | DEPARTMENT | | | | | | OF | | | | | | PATHOLOGY | | + +---------+ + + + | AST(SGOT) | 16 | 15 - 41 U/L | [facility] | | | | | | DEPARTMENT | | | | | | OF | | | | | | PATHOLOGY | | + +---------+ + + + | SODIUM, | 137 | 134 - 143 | [facility] | | | PLASMA | | mmol/L | DEPARTMENT | | | (LAB) | | | OF | | | | | | PATHOLOGY | | + +---------+ + + + | POTASSIUM, | 3.5 | 3.4 - 5.0 | [facility] | | | PLASMA | | mmol/L | DEPARTMENT | | | (LAB) | | | OF | | | | | | PATHOLOGY | | + +---------+ + + + | CHLORIDE, | 105 | 97 - 108 mmol/L | [facility] | | | PLASMA | | | DEPARTMENT | | | (LAB) | | | OF | | | | | | PATHOLOGY | | + +---------+ + + + | TOTAL CO2, | 28 | 22 - 29 mmol/L | [facility] | | | PLASMA | | | DEPARTMENT | | | (LAB) | | | OF | | | | | | PATHOLOGY | | + +---------+ + + + | ALT (SGPT) | 14 | 13 - 48 U/L | [facility] | | | | | | DEPARTMENT | | | | | | OF | | | | | | PATHOLOGY | | + +---------+ + + + | ANION GAP | 4 | 4 - 11 mmol/L | [facility] | | | | | | DEPARTMENT | | | | | | OF | | | | | | PATHOLOGY | | + +---------+ + + + | ANION | 7 | 4 - 11 mmol/L | [facility] | | | GAP(ALB | | | DEPARTMENT | | | CORRECTED) | | | OF | | | | | | PATHOLOGY | | + +---------+ + + + + + | Specimen | + + | Blood - Blood | + + + + + + + | Performing | Address | City/State/Zipcode | Phone Number | | Organization | | | | + + + + + | [facility] DEPARTMENT | [address] | [place] [address] | | | PATHOLOGY | [address] | | | + + + + + CAPILLARY BLOOD GLUCOSE, POC (11/19/2011 9:57 PM PST) + +---------+ + + + | Component | Value | Ref Range | Performed | Pathologist | | | | | At | Signature | + +---------+ + + + | BLOOD | 194 (H) | 60 - 99 mg/dL | [facility] - | | | GLUCOSE, | | | [facility] | | | POC | | | [facility] | | | | | | OF CARE | | | | | | TESTS | | + +---------+ + + + + + | Specimen | + + | | + + + + + + + | Performing | Address | City/State/Zipcode | Phone Number | | Organization | | | | + + + + + | [facility] | [address] | [place], [place] | | | [facility] [place] | [address] | [address] | | | TESTS | | | | + + + + + CAPILLARY BLOOD GLUCOSE, POC (11/19/2011 6:41 PM PST) + +---------+ + + + | Component | Value | Ref Range | Performed | Pathologist | | | | | At | Signature | + +---------+ + + + | BLOOD | 114 (H) | 60 - 99 mg/dL | [facility] - | | | GLUCOSE, | | | [facility] | | | POC | | | [place] | | | | | | OF CARE | | | | | | TESTS | | + +---------+ + + + + + | Specimen | + + | | + + + + + + + | Performing | Address | City/State/Zipcode | Phone Number | | Organization | | | | + + + + + | [facility] | [address] | [place], [place] | | | [facility] [place] | [facility] | [address] | | | TESTS | | | | + + + + + CAPILLARY BLOOD GLUCOSE, POC (11/19/2011 1:44 PM PST) + +---------+ + + + | Component | Value | Ref Range | Performed | Pathologist | | | | | At | Signature | + +---------+ + + + | BLOOD | 157 (H) | 60 - 99 mg/dL | [facility] - | | | GLUCOSE, | | | [place] | | | POC | | | [facility] | | | | | | OF CARE | | | | | | TESTS | | + +---------+ + + + + + | Specimen | + + | | + + + + + + + | Performing | Address | City/State/Zipcode | Phone Number | | Organization | | | | + + + + + | [facility] | [address] | [place], [place] | | | [facility] | [address] | [address] | | | TESTS | | | | + + + + + CAPILLARY BLOOD GLUCOSE, POC (11/19/2011 7:52 AM PST) + +---------+ + + + | Component | Value | Ref Range | Performed | Pathologist | | | | | At | Signature | + +---------+ + + + | BLOOD | 159 (H) | 60 - 99 mg/dL | [facility] - | | | GLUCOSE, | | | [facility] | | | POC | | | [facility] | | | | | | OF CARE | | | | | | TESTS | | + +---------+ + + + + + | Specimen | + + | | + + + + + + + | Performing | Address | City/State/Zipcode | Phone Number | | Organization | | | | + + + + + | [facility] | [address] | [place], [place] | | | [facility] [place] | [facility] | [phone] | | | TESTS | | | | + + + + + DIFFERENTIAL (11/19/2011 12:01 AM PST) + +---------+ + + + | Component | Value | Ref Range | Performed | Pathologist | | | | | At | Signature | + +---------+ + + + | NEUTROPHIL | 96 (H) | 50 - 70 % | [facility] | | | % | | | DEPARTMENT | | | | | | OF | | | | | | PATHOLOGY | | + +---------+ + + + | LYMPHOCYTE | 1 (L) | 18 - 42 % | [facility] | | | % | | | DEPARTMENT | | | | | | OF | | | | | | PATHOLOGY | | + +---------+ + + + | MONOCYTE % | 3 | 2 - 8 % | [facility] | | | | | | DEPARTMENT | | | | | | OF | | | | | | PATHOLOGY | | + +---------+ + + + | EOS % | 0 (L) | 1 - 3 % | [facility] | | | | | | DEPARTMENT | | | | | | OF | | | | | | PATHOLOGY | | + +---------+ + + + | BASO % | 0 | <3 % | [facility] | | | | | | DEPARTMENT | | | | | | OF | | | | | | PATHOLOGY | | + +---------+ + + + | NEUTROPHIL | 8.6 (H) | 1.8 - 7.7 K/cu | [facility] | | | # | | mm | DEPARTMENT | | | | | | OF | | | | | | PATHOLOGY | | + +---------+ + + + | LYMPHOCYTE | 0.1 (L) | 1.0 - 4.8 K/cu | [facility] | | | # | | mm | DEPARTMENT | | | | | | OF | | | | | | PATHOLOGY | | + +---------+ + + + | MONOCYTE # | 0.3 | <0.9 K/cu mm | [facility] | | | | | | DEPARTMENT | | | | | | OF | | | | | | PATHOLOGY | | + +---------+ + + + | EOS # | 0.0 | <0.6 K/cu mm | [facility] | | | | | | DEPARTMENT | | | | | | OF | | | | | | PATHOLOGY | | + +---------+ + + + | BASO # | 0.0 | <0.3 | [facility] | | | | | | DEPARTMENT | | | | | | OF | | | | | | PATHOLOGY | | + +---------+ + + + + + | Specimen | + + | | + + + + + + + | Performing | Address | City/State/Zipcode | Phone Number | | Organization | | | | + + + + + | [facility] DEPARTMENT OF | [address] | [place] [address] | | | PATHOLOGY | [address] | | | + + + + + CBC, WITH DIFFERENTIAL (11/19/2011 12:01 AM PST) + + + + + + | Component | Value | Ref Range | Performed | Pathologist | | | | | At | Signature | + + + + + + | WHITE CELL | 9.0 | 4.4 - 11.0 K/cu | [facility] | | | COUNT | | mm | DEPARTMENT | | | | | | OF | | | | | | PATHOLOGY | | + + + + + + | RED CELL | 3.38 (L) | 4.00 - 5.20 | [facility] | | | COUNT | | M/cu mm | DEPARTMENT | | | | | | OF | | | | | | PATHOLOGY | | + + + + + + | HEMOGLOBIN | 9.4 (L) | 12.0 - 16.0 | [facility] | | | | | g/dL | DEPARTMENT | | | | | | OF | | | | | | PATHOLOGY | | + + + + + + | HEMATOCRIT | 28.0 (L) | 36.0 - 46.0 % | [facility] | | | | | | DEPARTMENT | | | | | | OF | | | | | | PATHOLOGY | | + + + + + + | MCV | 82.7 | 80.0 - 96.0 fL | [facility] | | | | | | DEPARTMENT | | | | | | OF | | | | | | PATHOLOGY | | + + + + + + | MCHC | 33.5 | 33.4 - 35.5 | [facility] | | | | | g/dL | DEPARTMENT | | | | | | OF | | | | | | PATHOLOGY | | + + + + + + | RDW | 14.3 | 11.5 - 15.0 % | [facility] | | | | | | DEPARTMENT | | | | | | OF | | | | | | PATHOLOGY | | + + + + + + | PLATELET | 303 | 150 - 400 K/cu | [facility] | | | COUNT | | mm | DEPARTMENT | | | | | | OF | | | | | | PATHOLOGY | | + + + + + + + + | Specimen | + + | Blood - Blood | + + + + + + + | Performing | Address | City/State/Zipcode | Phone Number | | Organization | | | | + + + + + | [facility] DEPARTMENT OF | [address] | [place] [address] | | | PATHOLOGY | [address] | | | + + + + + CHOLESTEROL TOTAL, PLASMA (11/19/2011 12:01 AM PST) + + + + + + | Component | Value | Ref Range | Performed | Pathologist | | | | | At | Signature | + + + + + + | CHOLESTEROL | 156Comment: | <200 mg/dL | [facility] | | | (LAB) | Cholesterol Reference | | DEPARTMENT | | | | Range: | | OF | | | | Desirable: <200 | | PATHOLOGY | | | | Borderline | | | | | | High: 200 - 239 | | | | | | | | | | | | High: >=240 | | | | | | LDL Cholesterol | | | | | | Reference Range: | | | | | | | | | | | | Optimal: <100 | | | | | | Near Optimal: | | | | | | 100 - 129 | | | | | | Borderline High: | | | | | | 130 - 159 | | | | | | High: | | | | | | 160 - 189 | | | | | | Very High: | | | | | | >=190 | | | | + + + + + + + + | Specimen | + + | Blood - Blood | + + + + + + + | Performing | Address | City/State/Zipcode | Phone Number | | Organization | | | | + + + + + | [facility] | [address] | [place] [address] | | | PATHOLOGY | [address] | | | + + + + + LDH TOTAL, PLASMA (11/19/2011 12:01 AM PST) + +-------+ + + + | Component | Value | Ref Range | Performed | Pathologist | | | | | At | Signature | + +-------+ + + + | LD TOTAL, | 176 | 110 - 205 U/L | [facility] | | | PLASMA | | | DEPARTMENT | | | | | | OF | | | | | | PATHOLOGY | | + +-------+ + + + + + | Specimen | + + | Blood - Blood | + + + + + + + | Performing | Address | City/State/Zipcode | Phone Number | | Organization | | | | + + + + + | [facility] | [address] | [place] [address] | | | PATHOLOGY | [address] | | | + + + + + BILIRUBIN DIRECT (11/19/2011 12:01 AM PST) + +-------+ + + + | Component | Value | Ref Range | Performed | Pathologist | | | | | At | Signature | + +-------+ + + + | BILIRUBIN | 0.1 | <0.4 mg/dL | [facility] | | | DIRECT | | | DEPARTMENT | | | | | | OF | | | | | | PATHOLOGY | | + +-------+ + + + + + | Specimen | + + | Blood - Blood | + + + + + + + | Performing | Address | City/State/Zipcode | Phone Number | | Organization | | | | + + + + + | [facility] DEPARTMENT OF | [address] | [place] [address] | | | PATHOLOGY | [address] | | | + + + + + URIC ACID, PLASMA (11/19/2011 12:01 AM PST) + +-------+ + + + | Component | Value | Ref Range | Performed | Pathologist | | | | | At | Signature | + +-------+ + + + | URIC ACID, | 3.6 | 2.5 - 6.2 mg/dL | [facility] | | | PLASMA | | | DEPARTMENT | | | (LAB) | | | OF | | | | | | PATHOLOGY | | + +-------+ + + + + + | Specimen | + + | Blood - Blood | + + + + + + + | Performing | Address | City/State/Zipcode | Phone Number | | Organization | | | | + + + + + | [facility] | [address] | [place] [address] | | | PATHOLOGY | [address] | | | + + + + + PHOSPHORUS, PLASMA (11/19/2011 12:01 AM PST) + +-------+ + + + | Component | Value | Ref Range | Performed | Pathologist | | | | | At | Signature | + +-------+ + + + | PHOSPHORUS, | 3.5 | 2.4 - 4.7 mg/dL | [facility] | | | PLASMA | | | DEPARTMENT | | | (LAB) | | | OF | | | | | | PATHOLOGY | | + +-------+ + + + + + | Specimen | + + | Blood - Blood | + + + + + + + | Performing | Address | City/State/Zipcode | Phone Number | | Organization | | | | + + + + + | [facility] DEPARTMENT OF | [address] | [place] [address] | | | PATHOLOGY | [address] | | | + + + + + MAGNESIUM, PLASMA (11/19/2011 12:01 AM PST) + +---------+ + + + | Component | Value | Ref Range | Performed | Pathologist | | | | | At | Signature | + +---------+ + + + | MAGNESIUM,P | 1.4 (L) | 1.8 - 2.5 mg/dL | [facility] | | | LASMA | | | DEPARTMENT | | | | | | OF | | | | | | PATHOLOGY | | + +---------+ + + + + + | Specimen | + + | Blood - Blood | + + + + + + + | Performing | Address | City/State/Zipcode | Phone Number | | Organization | | | | + + + + + | [facility] DEPARTMENT OF | [address] | [place] [address] | | | PATHOLOGY | [address] | | | + + + + + COMPLETE METABOLIC SET (NA,K,CL,CO2,BUN,CREAT,GLUC,CA,AST,ALT,BILI TOTAL,ALK PHOS,ALB,PROT TOTAL) (11/19/2011 12:01 AM PST) + +---------+ + + + | Component | Value | Ref Range | Performed | Pathologist | | | | | At | Signature | + +---------+ + + + | GLUCOSE, | 181 (H) | 60 - 99 mg/dL | [facility] | | | PLASMA | | | DEPARTMENT | | | (LAB) | | | OF | | | | | | PATHOLOGY | | + +---------+ + + + | BUN, PLASMA | 18 | 6 - 20 mg/dL | [facility] | | | (LAB) | | | DEPARTMENT | | | | | | OF | | | | | | PATHOLOGY | | + +---------+ + + + | CREATININE | 0.63 | 0.60 - 1.10 | [facility] | | | PLASMA | | mg/dL | DEPARTMENT | | | (LAB) | | | OF | | | | | | PATHOLOGY | | + +---------+ + + + | TOTAL | 5.5 (L) | 6.1 - 7.9 g/dL | [facility] | | | PROTEIN, | | | DEPARTMENT | | | PLASMA | | | OF | | | (LAB) | | | PATHOLOGY | | + +---------+ + + + | ALBUMIN, | 2.6 (L) | 3.5 - 4.7 g/dL | [facility] | | | PLASMA | | | DEPARTMENT | | | (LAB) | | | OF | | | | | | PATHOLOGY | | + +---------+ + + + | CALCIUM, | 7.8 (L) | 8.6 - 10.2 | [facility] | | | PLASMA | | mg/dL | DEPARTMENT | | | (LAB) | | | OF | | | | | | PATHOLOGY | | + +---------+ + + + | BILIRUBIN | 0.5 | 0.3 - 1.2 mg/dL | [facility] | | | TOTAL | | | DEPARTMENT | | | | | | OF | | | | | | PATHOLOGY | | + +---------+ + + + | ALK PHOS | 46 | 42 - 98 U/L | [facility] | | | | | | DEPARTMENT | | | | | | OF | | | | | | PATHOLOGY | | + +---------+ + + + | AST(SGOT) | 16 | 15 - 41 U/L | [facility] | | | | | | DEPARTMENT | | | | | | OF | | | | | | PATHOLOGY | | + +---------+ + + + | SODIUM, | 136 | 134 - 143 | [facility] | | | PLASMA | | mmol/L | DEPARTMENT | | | (LAB) | | | OF | | | | | | PATHOLOGY | | + +---------+ + + + | POTASSIUM, | 4.1 | 3.4 - 5.0 | [facility] | | | PLASMA | | mmol/L | DEPARTMENT | | | (LAB) | | | OF | | | | | | PATHOLOGY | | + +---------+ + + + | CHLORIDE, | 107 | 97 - 108 mmol/L | [facility] | | | PLASMA | | | DEPARTMENT | | | (LAB) | | | OF | | | | | | PATHOLOGY | | + +---------+ + + + | TOTAL CO2, | 24 | 22 - 29 mmol/L | [facility] | | | PLASMA | | | DEPARTMENT | | | (LAB) | | | OF | | | | | | PATHOLOGY | | + +---------+ + + + | ALT (SGPT) | 15 | 13 - 48 U/L | [facility] | | | | | | DEPARTMENT | | | | | | OF | | | | | | PATHOLOGY | | + +---------+ + + + | ANION GAP | 5 | 4 - 11 mmol/L | [facility] | | | | | | DEPARTMENT | | | | | | OF | | | | | | PATHOLOGY | | + +---------+ + + + | ANION | 8 | 4 - 11 mmol/L | [facility] | | | GAP(ALB | | | DEPARTMENT | | | CORRECTED) | | | OF | | | | | | PATHOLOGY | | + +---------+ + + + + + | Specimen | + + | Blood - Blood | + + + + + + + | Performing | Address | City/State/Zipcode | Phone Number | | Organization | | | | + + + + + | [facility] DEPARTMENT | [address] | [place] [address] | | | PATHOLOGY | [address] | | | + + + + + CAPILLARY BLOOD GLUCOSE, POC (11/18/2011 9:51 PM PST) + +---------+ + + + | Component | Value | Ref Range | Performed | Pathologist | | | | | At | Signature | + +---------+ + + + | BLOOD | 188 (H) | 60 - 99 mg/dL | [facility] - | | | GLUCOSE, | | | [facility] | | | POC | | | [facility] | | | | | | OF CARE | | | | | | TESTS | | + +---------+ + + + + + | Specimen | + + | | + + + + + + + | Performing | Address | City/State/Zipcode | Phone Number | | Organization | | | | + + + + + | [facility] | [address] | [place], [place] | | | [facility] | [address] | [address] | | | TESTS | | | | + + + + + BASIC METABOLIC SET (NA, K, CL, TCO2, BUN, CR, GLU, CA) (11/18/2011 6:56 PM PST) + +---------+ + + + | Component | Value | Ref Range | Performed | Pathologist | | | | | At | Signature | + +---------+ + + + | GLUCOSE, | 173 (H) | 60 - 99 mg/dL | [facility] | | | PLASMA | | | DEPARTMENT | | | (LAB) | | | OF | | | | | | PATHOLOGY | | + +---------+ + + + | BUN, PLASMA | 19 | 6 - 20 mg/dL | [facility] | | | (LAB) | | | DEPARTMENT | | | | | | OF | | | | | | PATHOLOGY | | + +---------+ + + + | CREATININE | 0.66 | 0.60 - 1.10 | [facility] | | | PLASMA | | mg/dL | DEPARTMENT | | | (LAB) | | | OF | | | | | | PATHOLOGY | | + +---------+ + + + | SODIUM, | 137 | 134 - 143 | [facility] | | | PLASMA | | mmol/L | DEPARTMENT | | | (LAB) | | | OF | | | | | | PATHOLOGY | | + +---------+ + + + | POTASSIUM, | 4.3 | 3.4 - 5.0 | [facility] | | | PLASMA | | mmol/L | DEPARTMENT | | | (LAB) | | | OF | | | | | | PATHOLOGY | | + +---------+ + + + | CHLORIDE, | 108 | 97 - 108 mmol/L | [facility] | | | PLASMA | | | DEPARTMENT | | | (LAB) | | | OF | | | | | | PATHOLOGY | | + +---------+ + + + | TOTAL CO2, | 22 | 22 - 29 mmol/L | [facility] | | | PLASMA | | | DEPARTMENT | | | (LAB) | | | OF | | | | | | PATHOLOGY | | + +---------+ + + + | CALCIUM, | 7.8 (L) | 8.6 - 10.2 | [facility] | | | PLASMA | | mg/dL | DEPARTMENT | | | (LAB) | | | OF | | | | | | PATHOLOGY | | + +---------+ + + + | ANION GAP | 7 | 4 - 11 mmol/L | [facility] | | | | | | DEPARTMENT | | | | | | OF | | | | | | PATHOLOGY | | + +---------+ + + + + + | Specimen | + + | Blood - Blood | + + + + + + + | Performing | Address | City/State/Zipcode | Phone Number | | Organization | | | | + + + + + | [facility] | [phone] | [place] [address] | | | PATHOLOGY | [address] | | | + + + + + PROTEIN, CSF (11/18/2011 6:27 PM PST) + +-------+ + + + | Component | Value | Ref Range | Performed | Pathologist | | | | | At | Signature | + +-------+ + + + | TOTAL | 38 | 15 - 45 mg/dL | [facility] | | | PROTEIN CSF | | | DEPARTMENT | | | | | | OF | | | | | | PATHOLOGY | | + +-------+ + + + + + | Specimen | + + | | + + + + + + + | Performing | Address | City/State/Zipcode | Phone Number | | Organization | | | | + + + + + | [facility] | [id number] | [place] [address] | | | PATHOLOGY | [address] | | | + + + + + CSF INFO PANEL (11/18/2011 6:27 PM PST) + + + + + + | Component | Value | Ref Range | Performed | Pathologist | | | | | At | Signature | + + + + + + | CSF COLOR | Colorless | Colorless | [facility] | | | | | | DEPARTMENT | | | | | | OF | | | | | | PATHOLOGY | | + + + + + + | CSF | Clear | Clear | [facility] | | | APPEARANCE | | | DEPARTMENT | | | | | | OF | | | | | | PATHOLOGY | | + + + + + + | CSF TUBE | Other | | [facility] | | | NUMBER | | | DEPARTMENT | | | | | | OF | | | | | | PATHOLOGY | | + + + + + + + + | Specimen | + + | | + + + + + + + | Performing | Address | City/State/Zipcode | Phone Number | | Organization | | | | + + + + + | [facility] | [phone] | [place] [address] | | | PATHOLOGY | [address] | | | + + + + + GLUCOSE, CSF (11/18/2011 6:27 PM PST) + +---------+ + + + | Component | Value | Ref Range | Performed | Pathologist | | | | | At | Signature | + +---------+ + + + | GLUCOSE CSF | 132 (H) | 40 - 70 mg/dL | [facility] | | | | | | DEPARTMENT | | | | | | OF | | | | | | PATHOLOGY | | + +---------+ + + + + + | Specimen | + + | | + + + + + + + | Performing | Address | City/State/Zipcode | Phone Number | | Organization | | | | + + + + + | [facility] | [phone] | [place] [address] | | | PATHOLOGY | [address] | | | + + + + + LDH, CSF (11/18/2011 6:27 PM PST) + +-------+ + + + | Component | Value | Ref Range | Performed | Pathologist | | | | | At | Signature | + +-------+ + + + | LDH CSF | 16 | <40 U/L | [facility] | | | | | | DEPARTMENT | | | | | | OF | | | | | | PATHOLOGY | | + +-------+ + + + + + | Specimen | + + | | + + + + + + + | Performing | Address | City/State/Zipcode | Phone Number | | Organization | | | | + + + + + | [facility] | [phone] | [place] [address] | | | PATHOLOGY | [address] | | | + + + + + CELL COUNT DIFF, CSF (11/18/2011 6:27 PM PST) + +-------+ + + + | Component | Value | Ref Range | Performed | Pathologist | | | | | At | Signature | + +-------+ + + + | CSF WBC | 1 | <6 /cu mm | [facility] | | | | | | DEPARTMENT | | | | | | OF | | | | | | PATHOLOGY | | + +-------+ + + + | CSF RBC | 35 | /cu mm | [facility] | | | | | | DEPARTMENT | | | | | | OF | | | | | | PATHOLOGY | | + +-------+ + + + | DIFFERENTIA | 40 | | [facility] | | | L CSF | | | DEPARTMENT | | | | | | OF | | | | | | PATHOLOGY | | + +-------+ + + + | NEUTROPHIL( | 3 | <7 % | [facility] | | | CSF) | | | DEPARTMENT | | | | | | OF | | | | | | PATHOLOGY | | + +-------+ + + + | LYMPHOCYTES | 65 | 40 - 80 % | [facility] | | | (CSF) | | | DEPARTMENT | | | | | | OF | | | | | | PATHOLOGY | | + +-------+ + + + | MONOCYTES(C | 33 | 15 - 45 % | [facility] | | | SF) | | | DEPARTMENT | | | | | | OF | | | | | | PATHOLOGY | | + +-------+ + + + + + | Specimen | + + | | + + + + + + + | Performing | Address | City/State/Zipcode | Phone Number | | Organization | | | | + + + + + | [facility] DEPARTMENT | [address] | [place] [address] | | | PATHOLOGY | [address] | | | + + + + + CAPILLARY BLOOD GLUCOSE, POC (11/18/2011 5:16 PM PST) + +---------+ + + + | Component | Value | Ref Range | Performed | Pathologist | | | | | At | Signature | + +---------+ + + + | BLOOD | 157 (H) | 60 - 99 mg/dL | [facility] - | | | GLUCOSE, | | | [place] | | | POC | | | [facility] | | | | | | OF CARE | | | | | | TESTS | | + +---------+ + + + + + | Specimen | + + | | + + + + + + + | Performing | Address | City/State/Zipcode | Phone Number | | Organization | | | | + + + + + | [facility] | [address] | [place], [place] | | | [facility] | [address] | [address] | | | TESTS | | | | + + + + + X-RAY LUMBAR PUNCTURE 4 CHEMO ADMIN W/GUIDANCE (11/18/2011 3:12 PM PST) + + + + + + | Component | Value | Ref Range | Performed | Pathologist | | | | | At | Signature | + + + + + + | X-RAY | STUDY: LUMBAR PUNCTURE 4 | | | | | LUMBAR | CHEMO ADMIN COMBO | | | | | PUNCTURE 4 | 11/18/11 15:12:00 | | | | | CHEMO ADMIN | HISTORY: Lymphoma. | | | | | W/GUIDANCE | COMPARISON: CT | | | | | | 11/14/2011. | | | | | | Technique:Consent was | | | | | | obtained, then a PARQ | | | | | | discussion was held with | | | | | | thepatient. The | | | | | | patient was positioned | | | | | | in a posterior oblique | | | | | | positionon the | | | | | | fluoroscopy table and | | | | | | prepped and draped in | | | | | | routine sterilefashion. | | | | | | 5 cc of 1% lidocaine | | | | | | local anesthetic was | | | | | | givensubcutaneously at | | | | | | the injection site. A | | | | | | 22 gauge needle was used | | | | | | toperform lumbar | | | | | | puncture at the L3-L4 | | | | | | level under | | | | | | fluoroscopicguidance. | | | | | | 6 ml of clear CSF was | | | | | | returned, and collected | | | | | | into threevials, and | | | | | | sent to the lab for | | | | | | analysis. | | | | | | Afterwardshematology/onc | | | | | | ology administered | | | | | | intrathecal | | | | | | chemotherapy. | | | | | | Therewere no immediate | | | | | | complications. | | | | | | Procedure was performed | | | | | | by Dr. Marrero (Resident) | | | | | | and Dr. Sandoval. | | | | | | Jaime (attending) was | | | | | | present for all barakat | | | | | | portions of | | | | | | theprocedure. FINDINGS: | | | | | | Successful lumbar | | | | | | puncture at the L3-L4 | | | | | | level. Clear, | | | | | | colorless CSF. | | | | | | IMPRESSION: Successful | | | | | | lumbar puncture. | | | | | | Attending Radiologists: | | | | | | Sonal Sandoval, | | | | | | ClintAuthor: Isidoro | | | | | | Clint Marrero I have | | | | | | personally viewed this | | | | | | procedure/exam, reviewed | | | | | | this report,and made | | | | | | changes to it where | | | | | | appropriate. | | | | | | Final/Electronically | | | | | | signed / Sonal Stewart | | | | | | Jaime 11/18/2011 | | | | | | 8:26PM Pending final | | | | | | approval / Isidoro | | | | | | Elida 11/18/2011 16:31 | | | | | | PM | | | | + + + + + + + + | Specimen | + + | | + + + +---------+ + + | Performing | Address | City/State/Zipcode | Phone Number | | Organization | | | | + +---------+ + + | [facility] DEPARTMENT OF | | | | | RADIOLOGY | | | | + +---------+ + + CAPILLARY BLOOD GLUCOSE, POC (11/18/2011 12:03 PM PST) + +---------+ + + + | Component | Value | Ref Range | Performed | Pathologist | | | | | At | Signature | + +---------+ + + + | BLOOD | 268 (H) | 60 - 99 mg/dL | [facility] - | | | GLUCOSE, | | | [place] | | | POC | | | [facility] | | | | | | OF CARE | | | | | | TESTS | | + +---------+ + + + + + | Specimen | + + | | + + + + + + + | Performing | Address | City/State/Zipcode | Phone Number | | Organization | | | | + + + + + | [facility] | [address] | [place], [place] | | | [facility] | [address] | [address] | | | TESTS | | | | + + + + + CAPILLARY BLOOD GLUCOSE, POC (11/18/2011 7:41 AM PST) + +---------+ + + + | Component | Value | Ref Range | Performed | Pathologist | | | | | At | Signature | + +---------+ + + + | BLOOD | 220 (H) | 60 - 99 mg/dL | [facility] - | | | GLUCOSE, | | | [place] | | | POC | | | [facility] | | | | | | OF CARE | | | | | | TESTS | | + +---------+ + + + + + | Specimen | + + | | + + + + + + + | Performing | Address | City/State/Zipcode | Phone Number | | Organization | | | | + + + + + | [facility] | [address] | [place], [place] | | | [facility] | [address] | [address] | | | TESTS | | | | + + + + + URIC ACID, PLASMA (11/18/2011 7:10 AM PST) + +-------+ + + + | Component | Value | Ref Range | Performed | Pathologist | | | | | At | Signature | + +-------+ + + + | URIC ACID, | 3.3 | 2.5 - 6.2 mg/dL | [facility] | | | PLASMA | | | DEPARTMENT | | | (LAB) | | | OF | | | | | | PATHOLOGY | | + +-------+ + + + + + | Specimen | + + | Blood - Blood | + + + + + + + | Performing | Address | City/State/Zipcode | Phone Number | | Organization | | | | + + + + + | [facility] DEPARTMENT OF | [address] | [place] [address] | | | PATHOLOGY | [address] | | | + + + + + PHOSPHORUS, PLASMA (11/18/2011 7:10 AM PST) + +-------+ + + + | Component | Value | Ref Range | Performed | Pathologist | | | | | At | Signature | + +-------+ + + + | PHOSPHORUS, | 3.4 | 2.4 - 4.7 mg/dL | [facility] | | | PLASMA | | | DEPARTMENT | | | (LAB) | | | OF | | | | | | PATHOLOGY | | + +-------+ + + + + + | Specimen | + + | Blood - Blood | + + + + + + + | Performing | Address | City/State/Zipcode | Phone Number | | Organization | | | | + + + + + | [facility] | [address] | [place] [address] | | | PATHOLOGY | [address] | | | + + + + + LDH TOTAL, PLASMA (11/18/2011 7:10 AM PST) + +-------+ + + + | Component | Value | Ref Range | Performed | Pathologist | | | | | At | Signature | + +-------+ + + + | LD TOTAL, | 194 | 110 - 205 U/L | [facility] | | | PLASMA | | | DEPARTMENT | | | | | | OF | | | | | | PATHOLOGY | | + +-------+ + + + + + | Specimen | + + | Blood - Blood | + + + + + + + | Performing | Address | City/State/Zipcode | Phone Number | | Organization | | | | + + + + + | [facility] DEPARTMENT OF | [address] | [place] [address] | | | PATHOLOGY | [address] | | | + + + + + BASIC METABOLIC SET (NA, K, CL, TCO2, BUN, CR, GLU, CA) (11/18/2011 7:10 AM PST) + +---------+ + + + | Component | Value | Ref Range | Performed | Pathologist | | | | | At | Signature | + +---------+ + + + | GLUCOSE, | 201 (H) | 60 - 99 mg/dL | [facility] | | | PLASMA | | | DEPARTMENT | | | (LAB) | | | OF | | | | | | PATHOLOGY | | + +---------+ + + + | BUN, PLASMA | 22 (H) | 6 - 20 mg/dL | [facility] | | | (LAB) | | | DEPARTMENT | | | | | | OF | | | | | | PATHOLOGY | | + +---------+ + + + | CREATININE | 0.69 | 0.60 - 1.10 | [facility] | | | PLASMA | | mg/dL | DEPARTMENT | | | (LAB) | | | OF | | | | | | PATHOLOGY | | + +---------+ + + + | SODIUM, | 133 (L) | 134 - 143 | [facility] | | | PLASMA | | mmol/L | DEPARTMENT | | | (LAB) | | | OF | | | | | | PATHOLOGY | | + +---------+ + + + | POTASSIUM, | 4.8 | 3.4 - 5.0 | [facility] | | | PLASMA | | mmol/L | DEPARTMENT | | | (LAB) | | | OF | | | | | | PATHOLOGY | | + +---------+ + + + | CHLORIDE, | 108 | 97 - 108 mmol/L | [facility] | | | PLASMA | | | DEPARTMENT | | | (LAB) | | | OF | | | | | | PATHOLOGY | | + +---------+ + + + | TOTAL CO2, | 20 (L) | 22 - 29 mmol/L | [facility] | | | PLASMA | | | DEPARTMENT | | | (LAB) | | | OF | | | | | | PATHOLOGY | | + +---------+ + + + | CALCIUM, | 7.9 (L) | 8.6 - 10.2 | [facility] | | | PLASMA | | mg/dL | DEPARTMENT | | | (LAB) | | | OF | | | | | | PATHOLOGY | | + +---------+ + + + | ANION GAP | 5 | 4 - 11 mmol/L | [facility] | | | | | | DEPARTMENT | | | | | | OF | | | | | | PATHOLOGY | | + +---------+ + + + + + | Specimen | + + | Blood - Blood | + + + + + + + | Performing | Address | City/State/Zipcode | Phone Number | | Organization | | | | + + + + + | [facility] DEPARTMENT | [address] | [place] [address] | | | PATHOLOGY | [address] | | | + + + + + DIFFERENTIAL (11/18/2011 12:50 AM PST) + +---------+ + + + | Component | Value | Ref Range | Performed | Pathologist | | | | | At | Signature | + +---------+ + + + | NEUTROPHIL | 95 (H) | 50 - 70 % | [facility] | | | % | | | DEPARTMENT | | | | | | OF | | | | | | PATHOLOGY | | + +---------+ + + + | LYMPHOCYTE | 4 (L) | 18 - 42 % | [facility] | | | % | | | DEPARTMENT | | | | | | OF | | | | | | PATHOLOGY | | + +---------+ + + + | MONOCYTE % | 1 (L) | 2 - 8 % | [facility] | | | | | | DEPARTMENT | | | | | | OF | | | | | | PATHOLOGY | | + +---------+ + + + | EOS % | 0 (L) | 1 - 3 % | [facility] | | | | | | DEPARTMENT | | | | | | OF | | | | | | PATHOLOGY | | + +---------+ + + + | BASO % | 0 | <3 % | [facility] | | | | | | DEPARTMENT | | | | | | OF | | | | | | PATHOLOGY | | + +---------+ + + + | NEUTROPHIL | 6.0 | 1.8 - 7.7 K/cu | [facility] | | | # | | mm | DEPARTMENT | | | | | | OF | | | | | | PATHOLOGY | | + +---------+ + + + | LYMPHOCYTE | 0.3 (L) | 1.0 - 4.8 K/cu | [facility] | | | # | | mm | DEPARTMENT | | | | | | OF | | | | | | PATHOLOGY | | + +---------+ + + + | MONOCYTE # | 0.1 | <0.9 K/cu mm | [facility] | | | | | | DEPARTMENT | | | | | | OF | | | | | | PATHOLOGY | | + +---------+ + + + | EOS # | 0.0 | <0.6 K/cu mm | [facility] | | | | | | DEPARTMENT | | | | | | OF | | | | | | PATHOLOGY | | + +---------+ + + + | BASO # | 0.0 | <0.3 | [facility] | | | | | | DEPARTMENT | | | | | | OF | | | | | | PATHOLOGY | | + +---------+ + + + + + | Specimen | + + | | + + + + + + + | Performing | Address | City/State/Zipcode | Phone Number | | Organization | | | | + + + + + | [facility] | [address] | [place] [address] | | | PATHOLOGY | [address] | | | + + + + + CBC, WITH DIFFERENTIAL (11/18/2011 12:50 AM PST) + + + + + + | Component | Value | Ref Range | Performed | Pathologist | | | | | At | Signature | + + + + + + | WHITE CELL | 6.3 | 4.4 - 11.0 K/cu | [facility] | | | COUNT | | mm | DEPARTMENT | | | | | | OF | | | | | | PATHOLOGY | | + + + + + + | RED CELL | 3.36 (L) | 4.00 - 5.20 | [facility] | | | COUNT | | M/cu mm | DEPARTMENT | | | | | | OF | | | | | | PATHOLOGY | | + + + + + + | HEMOGLOBIN | 9.4 (L) | 12.0 - 16.0 | [facility] | | | | | g/dL | DEPARTMENT | | | | | | OF | | | | | | PATHOLOGY | | + + + + + + | HEMATOCRIT | 27.6 (L) | 36.0 - 46.0 % | [facility] | | | | | | DEPARTMENT | | | | | | OF | | | | | | PATHOLOGY | | + + + + + + | MCV | 82.1 | 80.0 - 96.0 fL | [facility] | | | | | | DEPARTMENT | | | | | | OF | | | | | | PATHOLOGY | | + + + + + + | MCHC | 34.0 | 33.4 - 35.5 | [facility] | | | | | g/dL | DEPARTMENT | | | | | | OF | | | | | | PATHOLOGY | | + + + + + + | RDW | 14.5 | 11.5 - 15.0 % | [facility] | | | | | | DEPARTMENT | | | | | | OF | | | | | | PATHOLOGY | | + + + + + + | PLATELET | 371 | 150 - 400 K/cu | [facility] | | | COUNT | | mm | DEPARTMENT | | | | | | OF | | | | | | PATHOLOGY | | + + + + + + + + | Specimen | + + | Blood - Blood | + + + + + + + | Performing | Address | City/State/Zipcode | Phone Number | | Organization | | | | + + + + + | [facility] DEPARTMENT OF | [address] | [place] [address] | | | PATHOLOGY | [address] | | | + + + + + MAGNESIUM, PLASMA (11/18/2011 12:50 AM PST) + +---------+ + + + | Component | Value | Ref Range | Performed | Pathologist | | | | | At | Signature | + +---------+ + + + | MAGNESIUM,P | 1.7 (L) | 1.8 - 2.5 mg/dL | [facility] | | | LASMA | | | DEPARTMENT | | | | | | OF | | | | | | PATHOLOGY | | + +---------+ + + + + + | Specimen | + + | Blood - Blood | + + + + + + + | Performing | Address | City/State/Zipcode | Phone Number | | Organization | | | | + + + + + | [facility] | [address] | [place] [address] | | | PATHOLOGY | [address] | | | + + + + + COMPLETE METABOLIC SET (NA,K,CL,CO2,BUN,CREAT,GLUC,CA,AST,ALT,BILI TOTAL,ALK PHOS,ALB,PROT TOTAL) (11/18/2011 12:50 AM PST) + +---------+ + + + | Component | Value | Ref Range | Performed | Pathologist | | | | | At | Signature | + +---------+ + + + | GLUCOSE, | 214 (H) | 60 - 99 mg/dL | [facility] | | | PLASMA | | | DEPARTMENT | | | (LAB) | | | OF | | | | | | PATHOLOGY | | + +---------+ + + + | BUN, PLASMA | 24 (H) | 6 - 20 mg/dL | [facility] | | | (LAB) | | | DEPARTMENT | | | | | | OF | | | | | | PATHOLOGY | | + +---------+ + + + | CREATININE | 0.72 | 0.60 - 1.10 | [facility] | | | PLASMA | | mg/dL | DEPARTMENT | | | (LAB) | | | OF | | | | | | PATHOLOGY | | + +---------+ + + + | TOTAL | 5.5 (L) | 6.1 - 7.9 g/dL | [facility] | | | PROTEIN, | | | DEPARTMENT | | | PLASMA | | | OF | | | (LAB) | | | PATHOLOGY | | + +---------+ + + + | ALBUMIN, | 2.4 (L) | 3.5 - 4.7 g/dL | [facility] | | | PLASMA | | | DEPARTMENT | | | (LAB) | | | OF | | | | | | PATHOLOGY | | + +---------+ + + + | CALCIUM, | 8.1 (L) | 8.6 - 10.2 | [facility] | | | PLASMA | | mg/dL | DEPARTMENT | | | (LAB) | | | OF | | | | | | PATHOLOGY | | + +---------+ + + + | BILIRUBIN | 0.4 | 0.3 - 1.2 mg/dL | [facility] | | | TOTAL | | | DEPARTMENT | | | | | | OF | | | | | | PATHOLOGY | | + +---------+ + + + | ALK PHOS | 47 | 42 - 98 U/L | [facility] | | | | | | DEPARTMENT | | | | | | OF | | | | | | PATHOLOGY | | + +---------+ + + + | AST(SGOT) | 22 | 15 - 41 U/L | [facility] | | | | | | DEPARTMENT | | | | | | OF | | | | | | PATHOLOGY | | + +---------+ + + + | SODIUM, | 136 | 134 - 143 | [facility] | | | PLASMA | | mmol/L | DEPARTMENT | | | (LAB) | | | OF | | | | | | PATHOLOGY | | + +---------+ + + + | POTASSIUM, | 4.8 | 3.4 - 5.0 | [facility] | | | PLASMA | | mmol/L | DEPARTMENT | | | (LAB) | | | OF | | | | | | PATHOLOGY | | + +---------+ + + + | CHLORIDE, | 111 (H) | 97 - 108 mmol/L | [facility] | | | PLASMA | | | DEPARTMENT | | | (LAB) | | | OF | | | | | | PATHOLOGY | | + +---------+ + + + | TOTAL CO2, | 22 | 22 - 29 mmol/L | [facility] | | | PLASMA | | | DEPARTMENT | | | (LAB) | | | OF | | | | | | PATHOLOGY | | + +---------+ + + + | ALT (SGPT) | 17 | 13 - 48 U/L | [facility] | | | | | | DEPARTMENT | | | | | | OF | | | | | | PATHOLOGY | | + +---------+ + + + | ANION GAP | 3 (L) | 4 - 11 mmol/L | [facility] | | | | | | DEPARTMENT | | | | | | OF | | | | | | PATHOLOGY | | + +---------+ + + + | ANION | 7 | 4 - 11 mmol/L | [facility] | | | GAP(ALB | | | DEPARTMENT | | | CORRECTED) | | | OF | | | | | | PATHOLOGY | | + +---------+ + + + + + | Specimen | + + | Blood - Blood | + + + + + + + | Performing | Address | City/State/Zipcode | Phone Number | | Organization | | | | + + + + + | [facility] | [address] | [place] [address] | | | PATHOLOGY | [address] | | | + + + + + URIC ACID, PLASMA (11/18/2011 12:50 AM PST) + +-------+ + + + | Component | Value | Ref Range | Performed | Pathologist | | | | | At | Signature | + +-------+ + + + | URIC ACID, | 3.3 | 2.5 - 6.2 mg/dL | [facility] | | | PLASMA | | | DEPARTMENT | | | (LAB) | | | OF | | | | | | PATHOLOGY | | + +-------+ + + + + + | Specimen | + + | Blood - Blood | + + + + + + + | Performing | Address | City/State/Zipcode | Phone Number | | Organization | | | | + + + + + | [facility] DEPARTMENT OF | [address] | [place] [address] | | | PATHOLOGY | [address] | | | + + + + + PHOSPHORUS, PLASMA (11/18/2011 12:50 AM PST) + +-------+ + + + | Component | Value | Ref Range | Performed | Pathologist | | | | | At | Signature | + +-------+ + + + | PHOSPHORUS, | 3.7 | 2.4 - 4.7 mg/dL | [facility] | | | PLASMA | | | DEPARTMENT | | | (LAB) | | | OF | | | | | | PATHOLOGY | | + +-------+ + + + + + | Specimen | + + | Blood - Blood | + + + + + + + | Performing | Address | City/State/Zipcode | Phone Number | | Organization | | | | + + + + + | [facility] DEPARTMENT OF | [address] | [place] [address] | | | PATHOLOGY | [address] | | | + + + + + LDH TOTAL, PLASMA (11/18/2011 12:50 AM PST) + +-------+ + + + | Component | Value | Ref Range | Performed | Pathologist | | | | | At | Signature | + +-------+ + + + | LD TOTAL, | 189 | 110 - 205 U/L | [facility] | | | PLASMA | | | DEPARTMENT | | | | | | OF | | | | | | PATHOLOGY | | + +-------+ + + + + + | Specimen | + + | Blood - Blood | + + + + + + + | Performing | Address | City/State/Zipcode | Phone Number | | Organization | | | | + + + + + | [facility] | [address] | [place] [address] | | | PATHOLOGY | [address] | | | + + + + + HEMATOPATHOLOGY (11/18/2011) + + + + + + | Component | Value | Ref Range | Performed | Pathologist | | | | | At | Signature | + + + + + + | HEMATOPATHO | SOURCE OF SPECIMEN:A | | [facility] | | | LOGY | CSF, 1 vial, 1mL per | | DEPARTMENT | | | | vial Final | | OF | | | | Pathologic | | PATHOLOGY | | | | Diagnosis:Cerebrospinal | | | | | | fluid: - No | | | | | | evidence of malignancy | | | | | | Case reviewed | | | | | | by:Vira Callahan M.D., PhD. 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 The | | | | | | clinician wishes to rule | | | | | | outinvolvement of | | | | | | cerebrospinal fluid | | | | | | (CSF). CSF Cell | | | | | | Count and | | | | | | Differential:Sample | | | | | | Collection Date | | | | | | | | | | | | 11/18/11 Code : | | | | | | [id number] CFM 0 | | | | | | C ZOFIA | | | | | | [id number] | | | | | | -MARICEL WASHINGTON | | | | | | [facility]-[id number] WRD: | | | | | | REF C:11/18/2011 | | | | | | 18:27R:11/18/2011 | | | | | | CSF Appearance | | | | | | Clear | | | | | | (Clear) | | | | | | CSF Color | | | | | | Colorless | | | | | | (Colorless) | | | | | | Tube # | | | | | | Other | | | | | | WBC | | | | | | | | | | | | 1 | | | | | | (< 6) | | | | | | /cu mm | | | | | | RBC | | | | | | 35 | | | | | | (< 1) | | | | | | /cu mm | | | | | | Total Cell Count | | | | | | 40 | | | | | | Seg | | | | | | Neutrophil | | | | | | 3 (< | | | | | | 7) % | | | | | | | | | | | | Lymphocytes | | | | | | 65 | | | | | | (40-80) | | | | | | % | | | | | | Monocytes | | | | | | 33 | | | | | | (15-45) | | | | | | % Gross | | | | | | Description:Fresh CSF | | | | | | was received in the Flow | | | | | | Cytometry Lab for | | | | | | cytologic and | | | | | | possibleimmunologic | | | | | | evaluation. A | | | | | | Contreras-stained cytoprep | | | | | | was made for | | | | | | cytologicevaluation. | | | | | | Microscopic | | | | | | Description:The cytospin | | | | | | of the concentrated CSF | | | | | | cells was reviewed. It | | | | | | shows a lowcellularity, | | | | | | with scattered acellular | | | | | | debris. The few WBC's | | | | | | present aresmall | | | | | | lymphocytes, monocytes, | | | | | | or macrophages. No | | | | | | atypical cells | | | | | | areidentified. | | | | | | Immunologic Analysis: A | | | | | | limited analysis was | | | | | | performed on the CSF | | | | | | using theantibody | | | | | | combination of | | | | | | CD5/CD10/CD19/CD20/CD34/ | | | | | | CD45/sKappa/sLambda. | | | | | | Asmall population of | | | | | | lymphocytes is present | | | | | | and most of the | | | | | | lymphocytes areT-cells. | | | | | | There is no monoclonal | | | | | | B-cell population | | | | | | identified based on | | | | | | thesurface light chain | | | | | | expression. My | | | | | | electronic signature | | | | | | indicates that I have | | | | | | personally reviewed | | | | | | alldiagnostic slides, | | | | | | the gross and/or | | | | | | microscopic portion of | | | | | | thisreport and | | | | | | formulated the final | | | | | | diagnosis. | | | | | | Rendering Diagnostician: | | | | | | Cheryl Camilo | | | | | | ClintHematopathologistEle | | | | | | ctronically Signed | | | | | | 11/21/2011 11:44AM | | | | + + + + + + + + | Specimen | + + | | + + + + + + + | Performing | Address | City/State/Zipcode | Phone Number | | Organization | | | | + + + + + | [facility] DEPARTMENT | [address] | [place] [address] | | | PATHOLOGY | [address] | | | + + + + + CAPILLARY BLOOD GLUCOSE, POC (11/17/2011 9:35 PM PST) + +---------+ + + + | Component | Value | Ref Range | Performed | Pathologist | | | | | At | Signature | + +---------+ + + + | BLOOD | 190 (H) | 60 - 99 mg/dL | [facility] - | | | GLUCOSE, | | | [facility] | | | POC | | | [facility] | | | | | | OF CARE | | | | | | TESTS | | + +---------+ + + + + + | Specimen | + + | | + + + + + + + | Performing | Address | City/State/Zipcode | Phone Number | | Organization | | | | + + + + + | [facility] | [address] | [place], [place] | | | [facility] | [address] | [address] | | | TESTS | | | | + + + + + BASIC METABOLIC SET (NA, K, CL, TCO2, BUN, CR, GLU, CA) (11/17/2011 6:15 PM PST) + +---------+ + + + | Component | Value | Ref Range | Performed | Pathologist | | | | | At | Signature | + +---------+ + + + | GLUCOSE, | 218 (H) | 60 - 99 mg/dL | [facility] | | | PLASMA | | | DEPARTMENT | | | (LAB) | | | OF | | | | | | PATHOLOGY | | + +---------+ + + + | BUN, PLASMA | 28 (H) | 6 - 20 mg/dL | [facility] | | | (LAB) | | | DEPARTMENT | | | | | | OF | | | | | | PATHOLOGY | | + +---------+ + + + | CREATININE | 0.81 | 0.60 - 1.10 | [facility] | | | PLASMA | | mg/dL | DEPARTMENT | | | (LAB) | | | OF | | | | | | PATHOLOGY | | + +---------+ + + + | SODIUM, | 135 | 134 - 143 | [facility] | | | PLASMA | | mmol/L | DEPARTMENT | | | (LAB) | | | OF | | | | | | PATHOLOGY | | + +---------+ + + + | POTASSIUM, | 5.0 | 3.4 - 5.0 | [facility] | | | PLASMA | | mmol/L | DEPARTMENT | | | (LAB) | | | OF | | | | | | PATHOLOGY | | + +---------+ + + + | CHLORIDE, | 109 (H) | 97 - 108 mmol/L | [facility] | | | PLASMA | | | DEPARTMENT | | | (LAB) | | | OF | | | | | | PATHOLOGY | | + +---------+ + + + | TOTAL CO2, | 22 | 22 - 29 mmol/L | [facility] | | | PLASMA | | | DEPARTMENT | | | (LAB) | | | OF | | | | | | PATHOLOGY | | + +---------+ + + + | CALCIUM, | 8.0 (L) | 8.6 - 10.2 | [facility] | | | PLASMA | | mg/dL | DEPARTMENT | | | (LAB) | | | OF | | | | | | PATHOLOGY | | + +---------+ + + + | ANION GAP | 4 | 4 - 11 mmol/L | [facility] | | | | | | DEPARTMENT | | | | | | OF | | | | | | PATHOLOGY | | + +---------+ + + + + + | Specimen | + + | Blood - Blood | + + + + + + + | Performing | Address | City/State/Zipcode | Phone Number | | Organization | | | | + + + + + | [facility] DEPARTMENT OF | [id number] | [place] [address] | | | PATHOLOGY | [address] | | | + + + + + URIC ACID, PLASMA (11/17/2011 6:15 PM PST) + +-------+ + + + | Component | Value | Ref Range | Performed | Pathologist | | | | | At | Signature | + +-------+ + + + | URIC ACID, | 3.4 | 2.5 - 6.2 mg/dL | [facility] | | | PLASMA | | | DEPARTMENT | | | (LAB) | | | OF | | | | | | PATHOLOGY | | + +-------+ + + + + + | Specimen | + + | Blood - Blood | + + + + + + + | Performing | Address | City/State/Zipcode | Phone Number | | Organization | | | | + + + + + | [facility] DEPARTMENT OF | [id number] | [place] [address] | | | PATHOLOGY | [address] | | | + + + + + PHOSPHORUS, PLASMA (11/17/2011 6:15 PM PST) + +-------+ + + + | Component | Value | Ref Range | Performed | Pathologist | | | | | At | Signature | + +-------+ + + + | PHOSPHORUS, | 3.7 | 2.4 - 4.7 mg/dL | [facility] | | | PLASMA | | | DEPARTMENT | | | (LAB) | | | OF | | | | | | PATHOLOGY | | + +-------+ + + + + + | Specimen | + + | Blood - Blood | + + + + + + + | Performing | Address | City/State/Zipcode | Phone Number | | Organization | | | | + + + + + | [facility] DEPARTMENT OF | [address] [facility] [address] | [place] [address] | | | PATHOLOGY | [address] | | | + + + + + LDH TOTAL, PLASMA (11/17/2011 6:15 PM PST) + +-------+ + + + | Component | Value | Ref Range | Performed | Pathologist | | | | | At | Signature | + +-------+ + + + | LD TOTAL, | 195 | 110 - 205 U/L | [facility] | | | PLASMA | | | DEPARTMENT | | | | | | OF | | | | | | PATHOLOGY | | + +-------+ + + + + + | Specimen | + + | Blood - Blood | + + + + + + + | Performing | Address | City/State/Zipcode | Phone Number | | Organization | | | | + + + + + | [facility] | [address] | [place] [address] | | | PATHOLOGY | [address] | | | + + + + + CAPILLARY BLOOD GLUCOSE, POC (11/17/2011 5:26 PM PST) + +---------+ + + + | Component | Value | Ref Range | Performed | Pathologist | | | | | At | Signature | + +---------+ + + + | BLOOD | 235 (H) | 60 - 99 mg/dL | [facility] | | | GLUCOSE, | | | [facility] | | | POC | | | [facility] | | | | | | OF CARE | | | | | | TESTS | | + +---------+ + + + + + | Specimen | + + | | + + + + + + + | Performing | Address | City/State/Zipcode | Phone Number | | Organization | | | | + + + + + | [facility] | [address] | [place], [place] | | | [place]ARE | [address] | [address] | | | TESTS | | | | + + + + + CAPILLARY BLOOD GLUCOSE, POC (11/17/2011 12:42 PM PST) + +---------+ + + + | Component | Value | Ref Range | Performed | Pathologist | | | | | At | Signature | + +---------+ + + + | BLOOD | 292 (H) | 60 - 99 mg/dL | [facility] | | | GLUCOSE, | | | [facility] | | | POC | | | [facility] | | | | | | OF CARE | | | | | | TESTS | | + +---------+ + + + + + | Specimen | + + | | + + + + + + + | Performing | Address | City/State/Zipcode | Phone Number | | Organization | | | | + + + + + | [facility] | [address] | [place], [place] | | | [facility] | [address] | [address] | | | TESTS | | | | + + + + + BASIC METABOLIC SET (NA, K, CL, TCO2, BUN, CR, GLU, CA) (11/17/2011 11:45 AM PST) + +---------+ + + + | Component | Value | Ref Range | Performed | Pathologist | | | | | At | Signature | + +---------+ + + + | GLUCOSE, | 256 (H) | 60 - 99 mg/dL | [facility] | | | PLASMA | | | DEPARTMENT | | | (LAB) | | | OF | | | | | | PATHOLOGY | | + +---------+ + + + | BUN, PLASMA | 29 (H) | 6 - 20 mg/dL | [facility] | | | (LAB) | | | DEPARTMENT | | | | | | OF | | | | | | PATHOLOGY | | + +---------+ + + + | CREATININE | 0.86 | 0.60 - 1.10 | [facility] | | | PLASMA | | mg/dL | DEPARTMENT | | | (LAB) | | | OF | | | | | | PATHOLOGY | | + +---------+ + + + | SODIUM, | 134 | 134 - 143 | [facility] | | | PLASMA | | mmol/L | DEPARTMENT | | | (LAB) | | | OF | | | | | | PATHOLOGY | | + +---------+ + + + | POTASSIUM, | 4.7 | 3.4 - 5.0 | [facility] | | | PLASMA | | mmol/L | DEPARTMENT | | | (LAB) | | | OF | | | | | | PATHOLOGY | | + +---------+ + + + | CHLORIDE, | 109 (H) | 97 - 108 mmol/L | [facility] | | | PLASMA | | | DEPARTMENT | | | (LAB) | | | OF | | | | | | PATHOLOGY | | + +---------+ + + + | TOTAL CO2, | 21 (L) | 22 - 29 mmol/L | [facility] | | | PLASMA | | | DEPARTMENT | | | (LAB) | | | OF | | | | | | PATHOLOGY | | + +---------+ + + + | CALCIUM, | 8.0 (L) | 8.6 - 10.2 | [facility] | | | PLASMA | | mg/dL | DEPARTMENT | | | (LAB) | | | OF | | | | | | PATHOLOGY | | + +---------+ + + + | ANION GAP | 4 | 4 - 11 mmol/L | [facility] | | | | | | DEPARTMENT | | | | | | OF | | | | | | PATHOLOGY | | + +---------+ + + + + + | Specimen | + + | Blood - Blood | + + + + + + + | Performing | Address | City/State/Zipcode | Phone Number | | Organization | | | | + + + + + | [facility] | [address] | [place] [address] | | | PATHOLOGY | [address] | | | + + + + + URIC ACID, PLASMA (11/17/2011 11:45 AM PST) + +-------+ + + + | Component | Value | Ref Range | Performed | Pathologist | | | | | At | Signature | + +-------+ + + + | URIC ACID, | 3.9 | 2.5 - 6.2 mg/dL | [facility] | | | PLASMA | | | DEPARTMENT | | | (LAB) | | | OF | | | | | | PATHOLOGY | | + +-------+ + + + + + | Specimen | + + | Blood - Blood | + + + + + + + | Performing | Address | City/State/Zipcode | Phone Number | | Organization | | | | + + + + + | [facility] | [address] | [place] [address] | | | PATHOLOGY | [address] | | | + + + + + PHOSPHORUS, PLASMA (11/17/2011 11:45 AM PST) + +-------+ + + + | Component | Value | Ref Range | Performed | Pathologist | | | | | At | Signature | + +-------+ + + + | PHOSPHORUS, | 4.5 | 2.4 - 4.7 mg/dL | [facility] | | | PLASMA | | | DEPARTMENT | | | (LAB) | | | OF | | | | | | PATHOLOGY | | + +-------+ + + + + + | Specimen | + + | Blood - Blood | + + + + + + + | Performing | Address | City/State/Zipcode | Phone Number | | Organization | | | | + + + + + | [facility] DEPARTMENT | [address] | [place] [address] | | | PATHOLOGY | [address] | | | + + + + + LDH TOTAL, PLASMA (11/17/2011 11:45 AM PST) + +---------+ + + + | Component | Value | Ref Range | Performed | Pathologist | | | | | At | Signature | + +---------+ + + + | LD TOTAL, | 210 (H) | 110 - 205 U/L | [facility] | | | PLASMA | | | DEPARTMENT | | | | | | OF | | | | | | PATHOLOGY | | + +---------+ + + + + + | Specimen | + + | Blood - Blood | + + + + + + + | Performing | Address | City/State/Zipcode | Phone Number | | Organization | | | | + + + + + | [facility] | [address] | [place] [address] | | | PATHOLOGY | [address] | | | + + + + + CAPILLARY BLOOD GLUCOSE, POC (11/17/2011 8:08 AM PST) + +---------+ + + + | Component | Value | Ref Range | Performed | Pathologist | | | | | At | Signature | + +---------+ + + + | BLOOD | 213 (H) | 60 - 99 mg/dL | [facility] - | | | GLUCOSE, | | | [facility] | | | POC | | | [facility] | | | | | | OF CARE | | | | | | TESTS | | + +---------+ + + + + + | Specimen | + + | | + + + + + + + | Performing | Address | City/State/Zipcode | Phone Number | | Organization | | | | + + + + + | [facility] | [address] | [place], [place] | | | [facility] OF CARE | [address] | [address] | | | TESTS | | | | + + + + + BASIC METABOLIC SET (NA, K, CL, TCO2, BUN, CR, GLU, CA) (11/17/2011 6:13 AM PST) + +---------+ + + + | Component | Value | Ref Range | Performed | Pathologist | | | | | At | Signature | + +---------+ + + + | BUN, PLASMA | 31 (H) | 6 - 20 mg/dL | [facility] | | | (LAB) | | | DEPARTMENT | | | | | | OF | | | | | | PATHOLOGY | | + +---------+ + + + | CREATININE | 0.80 | 0.60 - 1.10 | [facility] | | | PLASMA | | mg/dL | DEPARTMENT | | | (LAB) | | | OF | | | | | | PATHOLOGY | | + +---------+ + + + | SODIUM, | 135 | 134 - 143 | [facility] | | | PLASMA | | mmol/L | DEPARTMENT | | | (LAB) | | | OF | | | | | | PATHOLOGY | | + +---------+ + + + | POTASSIUM, | 4.9 | 3.4 - 5.0 | [facility] | | | PLASMA | | mmol/L | DEPARTMENT | | | (LAB) | | | OF | | | | | | PATHOLOGY | | + +---------+ + + + | CHLORIDE, | 108 | 97 - 108 mmol/L | [facility] | | | PLASMA | | | DEPARTMENT | | | (LAB) | | | OF | | | | | | PATHOLOGY | | + +---------+ + + + | TOTAL CO2, | 21 (L) | 22 - 29 mmol/L | [facility] | | | PLASMA | | | DEPARTMENT | | | (LAB) | | | OF | | | | | | PATHOLOGY | | + +---------+ + + + | CALCIUM, | 8.0 (L) | 8.6 - 10.2 | [facility] | | | PLASMA | | mg/dL | DEPARTMENT | | | (LAB) | | | OF | | | | | | PATHOLOGY | | + +---------+ + + + | ANION GAP | 6 | 4 - 11 mmol/L | [facility] | | | | | | DEPARTMENT | | | | | | OF | | | | | | PATHOLOGY | | + +---------+ + + + | GLUCOSE, | 216 (H) | 60 - 99 mg/dL | [facility] | | | PLASMA | | | DEPARTMENT | | | (LAB) | | | OF | | | | | | PATHOLOGY | | + +---------+ + + + + + | Specimen | + + | Blood - Blood | + + + + + + + | Performing | Address | City/State/Zipcode | Phone Number | | Organization | | | | + + + + + | [facility] DEPARTMENT OF | [address] | [place] [address] | | | PATHOLOGY | [address] | | | + + + + + URIC ACID, PLASMA (11/17/2011 6:13 AM PST) + +-------+ + + + | Component | Value | Ref Range | Performed | Pathologist | | | | | At | Signature | + +-------+ + + + | URIC ACID, | 3.9 | 2.5 - 6.2 mg/dL | [facility] | | | PLASMA | | | DEPARTMENT | | | (LAB) | | | OF | | | | | | PATHOLOGY | | + +-------+ + + + + + | Specimen | + + | Blood - Blood | + + + + + + + | Performing | Address | City/State/Zipcode | Phone Number | | Organization | | | | + + + + + | [facility] | [address] | [place] [address] | | | PATHOLOGY | [address] | | | + + + + + PHOSPHORUS, PLASMA (11/17/2011 6:13 AM PST) + +-------+ + + + | Component | Value | Ref Range | Performed | Pathologist | | | | | At | Signature | + +-------+ + + + | PHOSPHORUS, | 4.6 | 2.4 - 4.7 mg/dL | [facility] | | | PLASMA | | | DEPARTMENT | | | (LAB) | | | OF | | | | | | PATHOLOGY | | + +-------+ + + + + + | Specimen | + + | Blood - Blood | + + + + + + + | Performing | Address | City/State/Zipcode | Phone Number | | Organization | | | | + + + + + | [facility] DEPARTMENT OF | [address] [facility] [facility] [facility] [address] | [place] [address] | | | PATHOLOGY | [address] | | | + + + + + LDH TOTAL, PLASMA (11/17/2011 6:13 AM PST) + +-------+ + + + | Component | Value | Ref Range | Performed | Pathologist | | | | | At | Signature | + +-------+ + + + | LD TOTAL, | 204 | 110 - 205 U/L | [facility] | | | PLASMA | | | DEPARTMENT | | | | | | OF | | | | | | PATHOLOGY | | + +-------+ + + + + + | Specimen | + + | Blood - Blood | + + + + + + + | Performing | Address | City/State/Zipcode | Phone Number | | Organization | | | | + + + + + | [facility] DEPARTMENT OF | [address] | [place] [address] | | | PATHOLOGY | [address] | | | + + + + + DIFFERENTIAL (11/17/2011 12:26 AM PST) + + + + + + | Component | Value | Ref Range | Performed | Pathologist | | | | | At | Signature | + + + + + + | NEUTROPHIL | 95 (H) | 50 - 70 % | [facility] | | | % | | | DEPARTMENT | | | | | | OF | | | | | | PATHOLOGY | | + + + + + + | LYMPHOCYTE | 4 (L) | 18 - 42 % | [facility] | | | % | | | DEPARTMENT | | | | | | OF | | | | | | PATHOLOGY | | + + + + + + | MONOCYTE % | 2 | 2 - 8 % | [facility] | | | | | | DEPARTMENT | | | | | | OF | | | | | | PATHOLOGY | | + + + + + + | EOS % | 0 (L) | 1 - 3 % | [facility] | | | | | | DEPARTMENT | | | | | | OF | | | | | | PATHOLOGY | | + + + + + + | BASO % | 0 | <3 % | [facility] | | | | | | DEPARTMENT | | | | | | OF | | | | | | PATHOLOGY | | + + + + + + | NEUTROPHIL | 10.2 (H) | 1.8 - 7.7 K/cu | [facility] | | | # | | mm | DEPARTMENT | | | | | | OF | | | | | | PATHOLOGY | | + + + + + + | LYMPHOCYTE | 0.4 (L) | 1.0 - 4.8 K/cu | [facility] | | | # | | mm | DEPARTMENT | | | | | | OF | | | | | | PATHOLOGY | | + + + + + + | MONOCYTE # | 0.2 | <0.9 K/cu mm | [facility] | | | | | | DEPARTMENT | | | | | | OF | | | | | | PATHOLOGY | | + + + + + + | EOS # | 0.0 | <0.6 K/cu mm | [facility] | | | | | | DEPARTMENT | | | | | | OF | | | | | | PATHOLOGY | | + + + + + + | BASO # | 0.0 | <0.3 | [facility] | | | | | | DEPARTMENT | | | | | | OF | | | | | | PATHOLOGY | | + + + + + + + + | Specimen | + + | | + + + + + + + | Performing | Address | City/State/Zipcode | Phone Number | | Organization | | | | + + + + + | [facility] DE[facility]MENT | [address] | [place] [address] | | | PATHOLOGY | [address] | | | + + + + + CBC, WITH DIFFERENTIAL (11/17/2011 12:26 AM PST) + + + + + + | Component | Value | Ref Range | Performed | Pathologist | | | | | At | Signature | + + + + + + | WHITE CELL | 10.7 | 4.4 - 11.0 K/cu | [facility] | | | COUNT | | mm | DEPARTMENT | | | | | | OF | | | | | | PATHOLOGY | | + + + + + + | RED CELL | 3.49 (L) | 4.00 - 5.20 | [facility] | | | COUNT | | M/cu mm | DEPARTMENT | | | | | | OF | | | | | | PATHOLOGY | | + + + + + + | HEMOGLOBIN | 9.6 (L) | 12.0 - 16.0 | [facility] | | | | | g/dL | DEPARTMENT | | | | | | OF | | | | | | PATHOLOGY | | + + + + + + | HEMATOCRIT | 29.0 (L) | 36.0 - 46.0 % | [facility] | | | | | | DEPARTMENT | | | | | | OF | | | | | | PATHOLOGY | | + + + + + + | MCV | 83.0 | 80.0 - 96.0 fL | [facility] | | | | | | DEPARTMENT | | | | | | OF | | | | | | PATHOLOGY | | + + + + + + | MCHC | 33.1 (L) | 33.4 - 35.5 | [facility] | | | | | g/dL | DEPARTMENT | | | | | | OF | | | | | | PATHOLOGY | | + + + + + + | RDW | 14.3 | 11.5 - 15.0 % | [facility] | | | | | | DEPARTMENT | | | | | | OF | | | | | | PATHOLOGY | | + + + + + + | PLATELET | 401 (H) | 150 - 400 K/cu | [facility] | | | COUNT | | mm | DEPARTMENT | | | | | | OF | | | | | | PATHOLOGY | | + + + + + + + + | Specimen | + + | Blood - Blood | + + + + + + + | Performing | Address | City/State/Zipcode | Phone Number | | Organization | | | | + + + + + | [facility] DEPARTMENT OF | [address] | [place] [address] | | | PATHOLOGY | [address] | | | + + + + + MAGNESIUM, PLASMA (11/17/2011 12:26 AM PST) + +-------+ + + + | Component | Value | Ref Range | Performed | Pathologist | | | | | At | Signature | + +-------+ + + + | MAGNESIUM,P | 1.9 | 1.8 - 2.5 mg/dL | [facility] | | | LASMA | | | DEPARTMENT | | | | | | OF | | | | | | PATHOLOGY | | + +-------+ + + + + + | Specimen | + + | Blood - Blood | + + + + + + + | Performing | Address | City/State/Zipcode | Phone Number | | Organization | | | | + + + + + | [facility] DEPARTMENT OF | [address] | [place] [address] | | | PATHOLOGY | [address] | | | + + + + + COMPLETE METABOLIC SET (NA,K,CL,CO2,BUN,CREAT,GLUC,CA,AST,ALT,BILI TOTAL,ALK PHOS,ALB,PROT TOTAL) (11/17/2011 12:26 AM PST) + +---------+ + + + | Component | Value | Ref Range | Performed | Pathologist | | | | | At | Signature | + +---------+ + + + | GLUCOSE, | 204 (H) | 60 - 99 mg/dL | [facility] | | | PLASMA | | | DEPARTMENT | | | (LAB) | | | OF | | | | | | PATHOLOGY | | + +---------+ + + + | BUN, PLASMA | 32 (H) | 6 - 20 mg/dL | [facility] | | | (LAB) | | | DEPARTMENT | | | | | | OF | | | | | | PATHOLOGY | | + +---------+ + + + | CREATININE | 0.90 | 0.60 - 1.10 | [facility] | | | PLASMA | | mg/dL | DEPARTMENT | | | (LAB) | | | OF | | | | | | PATHOLOGY | | + +---------+ + + + | TOTAL | 5.9 (L) | 6.1 - 7.9 g/dL | [facility] | | | PROTEIN, | | | DEPARTMENT | | | PLASMA | | | OF | | | (LAB) | | | PATHOLOGY | | + +---------+ + + + | ALBUMIN, | 2.5 (L) | 3.5 - 4.7 g/dL | [facility] | | | PLASMA | | | DEPARTMENT | | | (LAB) | | | OF | | | | | | PATHOLOGY | | + +---------+ + + + | CALCIUM, | 8.2 (L) | 8.6 - 10.2 | [facility] | | | PLASMA | | mg/dL | DEPARTMENT | | | (LAB) | | | OF | | | | | | PATHOLOGY | | + +---------+ + + + | BILIRUBIN | 0.2 (L) | 0.3 - 1.2 mg/dL | [facility] | | | TOTAL | | | DEPARTMENT | | | | | | OF | | | | | | PATHOLOGY | | + +---------+ + + + | ALK PHOS | 60 | 42 - 98 U/L | [facility] | | | | | | DEPARTMENT | | | | | | OF | | | | | | PATHOLOGY | | + +---------+ + + + | AST(SGOT) | 14 (L) | 15 - 41 U/L | [facility] | | | | | | DEPARTMENT | | | | | | OF | | | | | | PATHOLOGY | | + +---------+ + + + | SODIUM, | 136 | 134 - 143 | [facility] | | | PLASMA | | mmol/L | DEPARTMENT | | | (LAB) | | | OF | | | | | | PATHOLOGY | | + +---------+ + + + | POTASSIUM, | 5.1 (H) | 3.4 - 5.0 | [facility] | | | PLASMA | | mmol/L | DEPARTMENT | | | (LAB) | | | OF | | | | | | PATHOLOGY | | + +---------+ + + + | CHLORIDE, | 108 | 97 - 108 mmol/L | [facility] | | | PLASMA | | | DEPARTMENT | | | (LAB) | | | OF | | | | | | PATHOLOGY | | + +---------+ + + + | TOTAL CO2, | 18 (L) | 22 - 29 mmol/L | [facility] | | | PLASMA | | | DEPARTMENT | | | (LAB) | | | OF | | | | | | PATHOLOGY | | + +---------+ + + + | ALT (SGPT) | 9 (L) | 13 - 48 U/L | [facility] | | | | | | DEPARTMENT | | | | | | OF | | | | | | PATHOLOGY | | + +---------+ + + + | ANION GAP | 10 | 4 - 11 mmol/L | [facility] | | | | | | DEPARTMENT | | | | | | OF | | | | | | PATHOLOGY | | + +---------+ + + + | ANION | 13 (H) | 4 - 11 mmol/L | [facility] | | | GAP(ALB | | | DEPARTMENT | | | CORRECTED) | | | OF | | | | | | PATHOLOGY | | + +---------+ + + + + + | Specimen | + + | Blood - Blood | + + + + + + + | Performing | Address | City/State/Zipcode | Phone Number | | Organization | | | | + + + + + | [facility] | [address] | [place] [address] | | | PATHOLOGY | [address] | | | + + + + + BASIC METABOLIC SET (NA, K, CL, TCO2, BUN, CR, GLU, CA) (11/17/2011 12:26 AM PST) + +---------+ + + + | Component | Value | Ref Range | Performed | Pathologist | | | | | At | Signature | + +---------+ + + + | GLUCOSE, | 204 (H) | 60 - 99 mg/dL | [facility] | | | PLASMA | | | DEPARTMENT | | | (LAB) | | | OF | | | | | | PATHOLOGY | | + +---------+ + + + | BUN, PLASMA | 32 (H) | 6 - 20 mg/dL | [facility] | | | (LAB) | | | DEPARTMENT | | | | | | OF | | | | | | PATHOLOGY | | + +---------+ + + + | CREATININE | 0.90 | 0.60 - 1.10 | [facility] | | | PLASMA | | mg/dL | DEPARTMENT | | | (LAB) | | | OF | | | | | | PATHOLOGY | | + +---------+ + + + | SODIUM, | 136 | 134 - 143 | [facility] | | | PLASMA | | mmol/L | DEPARTMENT | | | (LAB) | | | OF | | | | | | PATHOLOGY | | + +---------+ + + + | POTASSIUM, | 5.1 (H) | 3.4 - 5.0 | [facility] | | | PLASMA | | mmol/L | DEPARTMENT | | | (LAB) | | | OF | | | | | | PATHOLOGY | | + +---------+ + + + | CHLORIDE, | 108 | 97 - 108 mmol/L | [facility] | | | PLASMA | | | DEPARTMENT | | | (LAB) | | | OF | | | | | | PATHOLOGY | | + +---------+ + + + | TOTAL CO2, | 18 (L) | 22 - 29 mmol/L | [facility] | | | PLASMA | | | DEPARTMENT | | | (LAB) | | | OF | | | | | | PATHOLOGY | | + +---------+ + + + | CALCIUM, | 8.2 (L) | 8.6 - 10.2 | [facility] | | | PLASMA | | mg/dL | DEPARTMENT | | | (LAB) | | | OF | | | | | | PATHOLOGY | | + +---------+ + + + | ANION GAP | 10 | 4 - 11 mmol/L | [facility] | | | | | | DEPARTMENT | | | | | | OF | | | | | | PATHOLOGY | | + +---------+ + + + + + | Specimen | + + | Blood - Blood | + + + + + + + | Performing | Address | City/State/Zipcode | Phone Number | | Organization | | | | + + + + + | [facility] DEPARTMENT OF | [address] | [place] [address] | | | PATHOLOGY | [address] | | | + + + + + URIC ACID, PLASMA (11/17/2011 12:26 AM PST) + +-------+ + + + | Component | Value | Ref Range | Performed | Pathologist | | | | | At | Signature | + +-------+ + + + | URIC ACID, | 4.2 | 2.5 - 6.2 mg/dL | [facility] | | | PLASMA | | | DEPARTMENT | | | (LAB) | | | OF | | | | | | PATHOLOGY | | + +-------+ + + + + + | Specimen | + + | Blood - Blood | + + + + + + + | Performing | Address | City/State/Zipcode | Phone Number | | Organization | | | | + + + + + | [facility] DEPARTMENT OF | [address] | [place] [address] | | | PATHOLOGY | [address] | | | + + + + + PHOSPHORUS, PLASMA (11/17/2011 12:26 AM PST) + +---------+ + + + | Component | Value | Ref Range | Performed | Pathologist | | | | | At | Signature | + +---------+ + + + | PHOSPHORUS, | 5.1 (H) | 2.4 - 4.7 mg/dL | [facility] | | | PLASMA | | | DEPARTMENT | | | (LAB) | | | OF | | | | | | PATHOLOGY | | + +---------+ + + + + + | Specimen | + + | Blood - Blood | + + + + + + + | Performing | Address | City/State/Zipcode | Phone Number | | Organization | | | | + + + + + | [facility] | [address] | [place] [address] | | | PATHOLOGY | [address] | | | + + + + + LDH TOTAL, PLASMA (11/17/2011 12:26 AM PST) + +---------+ + + + | Component | Value | Ref Range | Performed | Pathologist | | | | | At | Signature | + +---------+ + + + | LD TOTAL, | 219 (H) | 110 - 205 U/L | [facility] | | | PLASMA | | | DEPARTMENT | | | | | | OF | | | | | | PATHOLOGY | | + +---------+ + + + + + | Specimen | + + | Blood - Blood | + + + + + + + | Performing | Address | City/State/Zipcode | Phone Number | | Organization | | | | + + + + + | [facility] DE[facility]MENT [facility] | [address] | [place] [address] | | | PATHOLOGY | [address] | | | + + + + + CAPILLARY BLOOD GLUCOSE, POC (11/16/2011 9:24 PM PST) + +---------+ + + + | Component | Value | Ref Range | Performed | Pathologist | | | | | At | Signature | + +---------+ + + + | BLOOD | 240 (H) | 60 - 99 mg/dL | [facility] - | | | GLUCOSE, | | | [facility] | | | POC | | | [place] [place] | | | | | | OF CARE | | | | | | TESTS | | + +---------+ + + + + + | Specimen | + + | | + + + + + + + | Performing | Address | City/State/Zipcode | Phone Number | | Organization | | | | + + + + + | [facility] | [address] | [place], [place] | | | [place] [facility] | [address] | [address] | | | TESTS | | | | + + + + + C. DIFFICILE PCR (11/16/2011 7:02 PM PST) + + + + + + | Component | Value | Ref Range | Performed | Pathologist | | | | | At | Signature | + + + + + + | C. | Positive by PCR | | [facility] | | | DIFFICILE | (A)Comment: | | DEPARTMENT | | | PCR | Reference Range = | | OF | | | | Negative | | PATHOLOGY | | + + + + + + + + | Specimen | + + | | + + + + + | Narrative | Performed At | + + + | Phoned TO JONATHAN MATSON IN 14k @06:59 Readback. | [facility] | | | DEPARTMENT OF | | | PATHOLOGY | + + + + + + + + | Performing | Address | City/State/Zipcode | Phone Number | | Organization | | | | + + + + + | [facility] DEPARTMENT OF | [phone] | [place] [address] | | | PATHOLOGY | [address] | | | + + + + + C. DIFFICILE TOXIN (11/16/2011 7:02 PM PST) + + + + + + | Component | Value | Ref Range | Performed | Pathologist | | | | | At | Signature | + + + + + + | C. | Indeterminate; to be | | [facility] | | | DIFFICILE | confirmed by | | DEPARTMENT | | | TOXIN | PCR.Comment: | | OF | | | | Reference Range: | | PATHOLOGY | | | | Negative | | | | + + + + + + + + | Specimen | + + | Stool - Stool | + + + + + + + | Performing | Address | City/State/Zipcode | Phone Number | | Organization | | | | + + + + + | [facility] | [phone] | [place] [address] | | | PATHOLOGY | [address] | | | + + + + + BASIC METABOLIC SET (NA, K, CL, TCO2, BUN, CR, GLU, CA) (11/16/2011 6:05 PM PST) + +---------+ + + + | Component | Value | Ref Range | Performed | Pathologist | | | | | At | Signature | + +---------+ + + + | GLUCOSE, | 171 (H) | 60 - 99 mg/dL | [facility] | | | PLASMA | | | DEPARTMENT | | | (LAB) | | | OF | | | | | | PATHOLOGY | | + +---------+ + + + | BUN, PLASMA | 33 (H) | 6 - 20 mg/dL | [facility] | | | (LAB) | | | DEPARTMENT | | | | | | OF | | | | | | PATHOLOGY | | + +---------+ + + + | CREATININE | 0.96 | 0.60 - 1.10 | [facility] | | | PLASMA | | mg/dL | DEPARTMENT | | | (LAB) | | | OF | | | | | | PATHOLOGY | | + +---------+ + + + | SODIUM, | 136 | 134 - 143 | [facility] | | | PLASMA | | mmol/L | DEPARTMENT | | | (LAB) | | | OF | | | | | | PATHOLOGY | | + +---------+ + + + | POTASSIUM, | 4.6 | 3.4 - 5.0 | [facility] | | | PLASMA | | mmol/L | DEPARTMENT | | | (LAB) | | | OF | | | | | | PATHOLOGY | | + +---------+ + + + | CHLORIDE, | 108 | 97 - 108 mmol/L | [facility] | | | PLASMA | | | DEPARTMENT | | | (LAB) | | | OF | | | | | | PATHOLOGY | | + +---------+ + + + | TOTAL CO2, | 20 (L) | 22 - 29 mmol/L | [facility] | | | PLASMA | | | DEPARTMENT | | | (LAB) | | | OF | | | | | | PATHOLOGY | | + +---------+ + + + | CALCIUM, | 7.9 (L) | 8.6 - 10.2 | [facility] | | | PLASMA | | mg/dL | DEPARTMENT | | | (LAB) | | | OF | | | | | | PATHOLOGY | | + +---------+ + + + | ANION GAP | 8 | 4 - 11 mmol/L | [facility] | | | | | | DEPARTMENT | | | | | | OF | | | | | | PATHOLOGY | | + +---------+ + + + + + | Specimen | + + | Blood - Blood | + + + + + + + | Performing | Address | City/State/Zipcode | Phone Number | | Organization | | | | + + + + + | [facility] | [phone] | [place] [address] | | | PATHOLOGY | [address] | | | + + + + + URIC ACID, PLASMA (11/16/2011 6:05 PM PST) + +-------+ + + + | Component | Value | Ref Range | Performed | Pathologist | | | | | At | Signature | + +-------+ + + + | URIC ACID, | 4.3 | 2.5 - 6.2 mg/dL | [facility] | | | PLASMA | | | DEPARTMENT | | | (LAB) | | | OF | | | | | | PATHOLOGY | | + +-------+ + + + + + | Specimen | + + | Blood - Blood | + + + + + + + | Performing | Address | City/State/Zipcode | Phone Number | | Organization | | | | + + + + + | [facility] DEPARTMENT OF | [phone] | [place] [address] | | | PATHOLOGY | [address] | | | + + + + + PHOSPHORUS, PLASMA (11/16/2011 6:05 PM PST) + +-------+ + + + | Component | Value | Ref Range | Performed | Pathologist | | | | | At | Signature | + +-------+ + + + | PHOSPHORUS, | 4.7 | 2.4 - 4.7 mg/dL | [facility] | | | PLASMA | | | DEPARTMENT | | | (LAB) | | | OF | | | | | | PATHOLOGY | | + +-------+ + + + + + | Specimen | + + | Blood - Blood | + + + + + + + | Performing | Address | City/State/Zipcode | Phone Number | | Organization | | | | + + + + + | [facility] DEPARTMENT OF | [phone] | [place] [address] | | | PATHOLOGY | [address] | | | + + + + + LDH TOTAL, PLASMA (11/16/2011 6:05 PM PST) + +---------+ + + + | Component | Value | Ref Range | Performed | Pathologist | | | | | At | Signature | + +---------+ + + + | LD TOTAL, | 218 (H) | 110 - 205 U/L | [facility] | | | PLASMA | | | DEPARTMENT | | | | | | OF | | | | | | PATHOLOGY | | + +---------+ + + + + + | Specimen | + + | Blood - Blood | + + + + + + + | Performing | Address | City/State/Zipcode | Phone Number | | Organization | | | | + + + + + | [facility] | [address] | [place] [address] | | | PATHOLOGY | [address] | | | + + + + + CAPILLARY BLOOD GLUCOSE, POC (11/16/2011 4:23 PM PST) + +---------+ + + + | Component | Value | Ref Range | Performed | Pathologist | | | | | At | Signature | + +---------+ + + + | BLOOD | 199 (H) | 60 - 99 mg/dL | [facility] | | | GLUCOSE, | | | [facility] | | | POC | | | [facility] | | | | | | OF CARE | | | | | | TESTS | | + +---------+ + + + + + | Specimen | + + | | + + + + + + + | Performing | Address | City/State/Zipcode | Phone Number | | Organization | | | | + + + + + | [facility] | [address] | [place], [place] | | | [facility] CARE | [address] | [address] | | | TESTS | | | | + + + + + CAPILLARY BLOOD GLUCOSE, POC (11/16/2011 12:37 PM PST) + +---------+ + + + | Component | Value | Ref Range | Performed | Pathologist | | | | | At | Signature | + +---------+ + + + | BLOOD | 212 (H) | 60 - 99 mg/dL | [facility] - | | | GLUCOSE, | | | [facility] | | | POC | | | [place] | | | | | | OF CARE | | | | | | TESTS | | + +---------+ + + + + + | Specimen | + + | | + + + + + + + | Performing | Address | City/State/Zipcode | Phone Number | | Organization | | | | + + + + + | [facility] | [address] | [place], [place] | | | [facility] | [facility] | [address] | | | TESTS | | | | + + + + + BASIC METABOLIC SET (NA, K, CL, TCO2, BUN, CR, GLU, CA) (11/16/2011 12:00 PM PST) + + + + + + | Component | Value | Ref Range | Performed | Pathologist | | | | | At | Signature | + + + + + + | GLUCOSE, | 191 (H) | 60 - 99 mg/dL | [facility] | | | PLASMA | | | DEPARTMENT | | | (LAB) | | | OF | | | | | | PATHOLOGY | | + + + + + + | BUN, PLASMA | 32 (H) | 6 - 20 mg/dL | [facility] | | | (LAB) | | | DEPARTMENT | | | | | | OF | | | | | | PATHOLOGY | | + + + + + + | CREATININE | 1.12 (H) | 0.60 - 1.10 | [facility] | | | PLASMA | | mg/dL | DEPARTMENT | | | (LAB) | | | OF | | | | | | PATHOLOGY | | + + + + + + | SODIUM, | 137 | 134 - 143 | [facility] | | | PLASMA | | mmol/L | DEPARTMENT | | | (LAB) | | | OF | | | | | | PATHOLOGY | | + + + + + + | POTASSIUM, | 4.5 | 3.4 - 5.0 | [facility] | | | PLASMA | | mmol/L | DEPARTMENT | | | (LAB) | | | OF | | | | | | PATHOLOGY | | + + + + + + | CHLORIDE, | 107 | 97 - 108 mmol/L | [facility] | | | PLASMA | | | DEPARTMENT | | | (LAB) | | | OF | | | | | | PATHOLOGY | | + + + + + + | TOTAL CO2, | 21 (L) | 22 - 29 mmol/L | [facility] | | | PLASMA | | | DEPARTMENT | | | (LAB) | | | OF | | | | | | PATHOLOGY | | + + + + + + | CALCIUM, | 8.2 (L) | 8.6 - 10.2 | [facility] | | | PLASMA | | mg/dL | DEPARTMENT | | | (LAB) | | | OF | | | | | | PATHOLOGY | | + + + + + + | ANION GAP | 9 | 4 - 11 mmol/L | [facility] | | | | | | DEPARTMENT | | | | | | OF | | | | | | PATHOLOGY | | + + + + + + + + | Specimen | + + | Blood - Blood | + + + + + + + | Performing | Address | City/State/Zipcode | Phone Number | | Organization | | | | + + + + + | [facility] | [address] | [place] [address] | | | PATHOLOGY | [address] | | | + + + + + URIC ACID, PLASMA (11/16/2011 12:00 PM PST) + +-------+ + + + | Component | Value | Ref Range | Performed | Pathologist | | | | | At | Signature | + +-------+ + + + | URIC ACID, | 4.9 | 2.5 - 6.2 mg/dL | [facility] | | | PLASMA | | | DEPARTMENT | | | (LAB) | | | OF | | | | | | PATHOLOGY | | + +-------+ + + + + + | Specimen | + + | Blood - Blood | + + + + + + + | Performing | Address | City/State/Zipcode | Phone Number | | Organization | | | | + + + + + | [facility] | [address] | [place] [address] | | | PATHOLOGY | [address] | | | + + + + + PHOSPHORUS, PLASMA (11/16/2011 12:00 PM PST) + +---------+ + + + | Component | Value | Ref Range | Performed | Pathologist | | | | | At | Signature | + +---------+ + + + | PHOSPHORUS, | 5.2 (H) | 2.4 - 4.7 mg/dL | [facility] | | | PLASMA | | | DEPARTMENT | | | (LAB) | | | OF | | | | | | PATHOLOGY | | + +---------+ + + + + + | Specimen | + + | Blood - Blood | + + + + + + + | Performing | Address | City/State/Zipcode | Phone Number | | Organization | | | | + + + + + | [facility] DE[facility]MENT | [address] | [place] [address] | | | PATHOLOGY | [address] | | | + + + + + LDH TOTAL, PLASMA (11/16/2011 12:00 PM PST) + +---------+ + + + | Component | Value | Ref Range | Performed | Pathologist | | | | | At | Signature | + +---------+ + + + | LD TOTAL, | 224 (H) | 110 - 205 U/L | [facility] | | | PLASMA | | | DEPARTMENT | | | | | | OF | | | | | | PATHOLOGY | | + +---------+ + + + + + | Specimen | + + | Blood - Blood | + + + + + + + | Performing | Address | City/State/Zipcode | Phone Number | | Organization | | | | + + + + + | [facility] | [address] | [place] [address] | | | PATHOLOGY | [address] | | | + + + + + CAPILLARY BLOOD GLUCOSE, POC (11/16/2011 7:55 AM PST) + +---------+ + + + | Component | Value | Ref Range | Performed | Pathologist | | | | | At | Signature | + +---------+ + + + | BLOOD | 184 (H) | 60 - 99 mg/dL | [facility] - | | | GLUCOSE, | | | [facility] | | | POC | | | [facility] | | | | | | OF CARE | | | | | | TESTS | | + +---------+ + + + + + | Specimen | + + | | + + + + + + + | Performing | Address | City/State/Zipcode | Phone Number | | Organization | | | | + + + + + | [facility] | [address] | [place], [place] | | | [facility] CARE | [address] | [address] | | | TESTS | | | | + + + + + PHOSPHORUS, PLASMA (11/16/2011 6:35 AM PST) + +---------+ + + + | Component | Value | Ref Range | Performed | Pathologist | | | | | At | Signature | + +---------+ + + + | PHOSPHORUS, | 5.1 (H) | 2.4 - 4.7 mg/dL | [facility] | | | PLASMA | | | DEPARTMENT | | | (LAB) | | | OF | | | | | | PATHOLOGY | | + +---------+ + + + + + | Specimen | + + | Blood - Blood | + + + + + + + | Performing | Address | City/State/Zipcode | Phone Number | | Organization | | | | + + + + + | [facility] DEPARTMENT | [address] | [place] [address] | | | PATHOLOGY | [address] | | | + + + + + BASIC METABOLIC SET (NA, K, CL, TCO2, BUN, CR, GLU, CA) (11/16/2011 6:35 AM PST) + +---------+ + + + | Component | Value | Ref Range | Performed | Pathologist | | | | | At | Signature | + +---------+ + + + | GLUCOSE, | 166 (H) | 60 - 99 mg/dL | [facility] | | | PLASMA | | | DEPARTMENT | | | (LAB) | | | OF | | | | | | PATHOLOGY | | + +---------+ + + + | BUN, PLASMA | 31 (H) | 6 - 20 mg/dL | [facility] | | | (LAB) | | | DEPARTMENT | | | | | | OF | | | | | | PATHOLOGY | | + +---------+ + + + | CREATININE | 1.03 | 0.60 - 1.10 | [facility] | | | PLASMA | | mg/dL | DEPARTMENT | | | (LAB) | | | OF | | | | | | PATHOLOGY | | + +---------+ + + + | SODIUM, | 134 | 134 - 143 | [facility] | | | PLASMA | | mmol/L | DEPARTMENT | | | (LAB) | | | OF | | | | | | PATHOLOGY | | + +---------+ + + + | POTASSIUM, | 4.6 | 3.4 - 5.0 | [facility] | | | PLASMA | | mmol/L | DEPARTMENT | | | (LAB) | | | OF | | | | | | PATHOLOGY | | + +---------+ + + + | CHLORIDE, | 106 | 97 - 108 mmol/L | [facility] | | | PLASMA | | | DEPARTMENT | | | (LAB) | | | OF | | | | | | PATHOLOGY | | + +---------+ + + + | TOTAL CO2, | 21 (L) | 22 - 29 mmol/L | [facility] | | | PLASMA | | | DEPARTMENT | | | (LAB) | | | OF | | | | | | PATHOLOGY | | + +---------+ + + + | CALCIUM, | 7.9 (L) | 8.6 - 10.2 | [facility] | | | PLASMA | | mg/dL | DEPARTMENT | | | (LAB) | | | OF | | | | | | PATHOLOGY | | + +---------+ + + + | ANION GAP | 7 | 4 - 11 mmol/L | [facility] | | | | | | DEPARTMENT | | | | | | OF | | | | | | PATHOLOGY | | + +---------+ + + + + + | Specimen | + + | Blood - Blood | + + + + + + + | Performing | Address | City/State/Zipcode | Phone Number | | Organization | | | | + + + + + | [facility] DE[facility]MENT [facility] | [address] | [place] [address] | | | PATHOLOGY | [address] | | | + + + + + URIC ACID, PLASMA (11/16/2011 6:35 AM PST) + +-------+ + + + | Component | Value | Ref Range | Performed | Pathologist | | | | | At | Signature | + +-------+ + + + | URIC ACID, | 5.0 | 2.5 - 6.2 mg/dL | [facility] | | | PLASMA | | | DEPARTMENT | | | (LAB) | | | OF | | | | | | PATHOLOGY | | + +-------+ + + + + + | Specimen | + + | Blood - Blood | + + + + + + + | Performing | Address | City/State/Zipcode | Phone Number | | Organization | | | | + + + + + | [facility] | [address] | [place] [address] | | | PATHOLOGY | [address] | | | + + + + + MAGNESIUM, PLASMA (11/16/2011 6:35 AM PST) + +-------+ + + + | Component | Value | Ref Range | Performed | Pathologist | | | | | At | Signature | + +-------+ + + + | MAGNESIUM,P | 2.1 | 1.8 - 2.5 mg/dL | [facility] | | | LASMA | | | DEPARTMENT | | | | | | OF | | | | | | PATHOLOGY | | + +-------+ + + + + + | Specimen | + + | Blood - Blood | + + + + + + + | Performing | Address | City/State/Zipcode | Phone Number | | Organization | | | | + + + + + | [facility] DEPARTMENT OF | [address] | [place] [address] | | | PATHOLOGY | [address] | | | + + + + + MAGNESIUM, PLASMA (11/16/2011 12:13 AM PST) + +-------+ + + + | Component | Value | Ref Range | Performed | Pathologist | | | | | At | Signature | + +-------+ + + + | MAGNESIUM,P | 1.9 | 1.8 - 2.5 mg/dL | [facility] | | | LASMA | | | DEPARTMENT | | | | | | OF | | | | | | PATHOLOGY | | + +-------+ + + + + + | Specimen | + + | | + + + + + + + | Performing | Address | City/State/Zipcode | Phone Number | | Organization | | | | + + + + + | [facility] | [address] | [place] [address] | | | PATHOLOGY | [address] | | | + + + + + DIFFERENTIAL (11/16/2011 12:13 AM PST) + +---------+ + + + | Component | Value | Ref Range | Performed | Pathologist | | | | | At | Signature | + +---------+ + + + | NEUTROPHIL | 91 (H) | 50 - 70 % | [facility] | | | % | | | DEPARTMENT | | | | | | OF | | | | | | PATHOLOGY | | + +---------+ + + + | LYMPHOCYTE | 8 (L) | 18 - 42 % | [facility] | | | % | | | DEPARTMENT | | | | | | OF | | | | | | PATHOLOGY | | + +---------+ + + + | MONOCYTE % | 1 (L) | 2 - 8 % | [facility] | | | | | | DEPARTMENT | | | | | | OF | | | | | | PATHOLOGY | | + +---------+ + + + | EOS % | 0 (L) | 1 - 3 % | [facility] | | | | | | DEPARTMENT | | | | | | OF | | | | | | PATHOLOGY | | + +---------+ + + + | BASO % | 0 | <3 % | [facility] | | | | | | DEPARTMENT | | | | | | OF | | | | | | PATHOLOGY | | + +---------+ + + + | NEUTROPHIL | 6.2 | 1.8 - 7.7 K/cu | [facility] | | | # | | mm | DEPARTMENT | | | | | | OF | | | | | | PATHOLOGY | | + +---------+ + + + | LYMPHOCYTE | 0.5 (L) | 1.0 - 4.8 K/cu | [facility] | | | # | | mm | DEPARTMENT | | | | | | OF | | | | | | PATHOLOGY | | + +---------+ + + + | MONOCYTE # | 0.1 | <0.9 K/cu mm | [facility] | | | | | | DEPARTMENT | | | | | | OF | | | | | | PATHOLOGY | | + +---------+ + + + | EOS # | 0.0 | <0.6 K/cu mm | [facility] | | | | | | DEPARTMENT | | | | | | OF | | | | | | PATHOLOGY | | + +---------+ + + + | BASO # | 0.0 | <0.3 | [facility] | | | | | | DEPARTMENT | | | | | | OF | | | | | | PATHOLOGY | | + +---------+ + + + + + | Specimen | + + | | + + + + + + + | Performing | Address | City/State/Zipcode | Phone Number | | Organization | | | | + + + + + | [facility] | [phone] | [place] [address] | | | PATHOLOGY | [address] | | | + + + + + CHOLESTEROL TOTAL, PLASMA (11/16/2011 12:13 AM PST) + + + + + + | Component | Value | Ref Range | Performed | Pathologist | | | | | At | Signature | + + + + + + | CHOLESTEROL | 154Comment: | <200 mg/dL | [facility] | | | (LAB) | Cholesterol Reference | | DEPARTMENT | | | | Range: | | OF | | | | Desirable: <200 | | PATHOLOGY | | | | Borderline | | | | | | High: 200 - 239 | | | | | | | | | | | | High: >=240 | | | | | | LDL Cholesterol | | | | | | Reference Range: | | | | | | | | | | | | Optimal: <100 | | | | | | Near Optimal: | | | | | | 100 - 129 | | | | | | Borderline High: | | | | | | 130 - 159 | | | | | | High: | | | | | | 160 - 189 | | | | | | Very High: | | | | | | >=190 | | | | + + + + + + + + | Specimen | + + | Blood - Blood | + + + + + + + | Performing | Address | City/State/Zipcode | Phone Number | | Organization | | | | + + + + + | [facility] DEPARTMENT OF | [address] | [place] [address] | | | PATHOLOGY | [address] | | | + + + + + BILIRUBIN DIRECT (11/16/2011 12:13 AM PST) + +-------+ + + + | Component | Value | Ref Range | Performed | Pathologist | | | | | At | Signature | + +-------+ + + + | BILIRUBIN | < 0.1 | <0.4 mg/dL | [facility] | | | DIRECT | | | DEPARTMENT | | | | | | OF | | | | | | PATHOLOGY | | + +-------+ + + + + + | Specimen | + + | Blood - Blood | + + + + + + + | Performing | Address | City/State/Zipcode | Phone Number | | Organization | | | | + + + + + | [facility] | [address] | [place] [address] | | | PATHOLOGY | [address] | | | + + + + + INR (11/16/2011 12:13 AM PST) + + + + + + | Component | Value | Ref Range | Performed | Pathologist | | | | | At | Signature | + + + + + + | INR | 1.28 (H)Comment: | 0.90 - 1.20 INR | [facility] | | | | INR Therapeutic ranges | | DEPARTMENT | | | | for full | | OF | | | | anticoagulation: | | PATHOLOGY | | | | INR for Venous | | | | | | Thromboembolism | | | | | | (2.0-3.0) | | | | | | INR INR for most | | | | | | patients with mech. | | | | | | valves (2.5-3.5) | | | | | | INR | | | | + + + + + + + + | Specimen | + + | Blood - Blood | + + + + + + + | Performing | Address | City/State/Zipcode | Phone Number | | Organization | | | | + + + + + | [facility] DEPARTMENT | [address] | [place] [address] | | | PATHOLOGY | [address] | | | + + + + + COMPLETE METABOLIC SET (NA,K,CL,CO2,BUN,CREAT,GLUC,CA,AST,ALT,BILI TOTAL,ALK PHOS,ALB,PROT TOTAL) (11/16/2011 12:13 AM PST) + + + + + + | Component | Value | Ref Range | Performed | Pathologist | | | | | At | Signature | + + + + + + | GLUCOSE, | 186 (H) | 60 - 99 mg/dL | [facility] | | | PLASMA | | | DEPARTMENT | | | (LAB) | | | OF | | | | | | PATHOLOGY | | + + + + + + | BUN, PLASMA | 33 (H) | 6 - 20 mg/dL | [facility] | | | (LAB) | | | DEPARTMENT | | | | | | OF | | | | | | PATHOLOGY | | + + + + + + | CREATININE | 1.18 (H) | 0.60 - 1.10 | [facility] | | | PLASMA | | mg/dL | DEPARTMENT | | | (LAB) | | | OF | | | | | | PATHOLOGY | | + + + + + + | TOTAL | 5.6 (L) | 6.1 - 7.9 g/dL | [facility] | | | PROTEIN, | | | DEPARTMENT | | | PLASMA | | | OF | | | (LAB) | | | PATHOLOGY | | + + + + + + | ALBUMIN, | 2.5 (L) | 3.5 - 4.7 g/dL | [facility] | | | PLASMA | | | DEPARTMENT | | | (LAB) | | | OF | | | | | | PATHOLOGY | | + + + + + + | CALCIUM, | 8.1 (L) | 8.6 - 10.2 | [facility] | | | PLASMA | | mg/dL | DEPARTMENT | | | (LAB) | | | OF | | | | | | PATHOLOGY | | + + + + + + | BILIRUBIN | 0.5 | 0.3 - 1.2 mg/dL | [facility] | | | TOTAL | | | DEPARTMENT | | | | | | OF | | | | | | PATHOLOGY | | + + + + + + | ALK PHOS | 60 | 42 - 98 U/L | [facility] | | | | | | DEPARTMENT | | | | | | OF | | | | | | PATHOLOGY | | + + + + + + | AST(SGOT) | 15 | 15 - 41 U/L | [facility] | | | | | | DEPARTMENT | | | | | | OF | | | | | | PATHOLOGY | | + + + + + + | SODIUM, | 133 (L) | 134 - 143 | [facility] | | | PLASMA | | mmol/L | DEPARTMENT | | | (LAB) | | | OF | | | | | | PATHOLOGY | | + + + + + + | POTASSIUM, | 4.4 | 3.4 - 5.0 | [facility] | | | PLASMA | | mmol/L | DEPARTMENT | | | (LAB) | | | OF | | | | | | PATHOLOGY | | + + + + + + | CHLORIDE, | 104 | 97 - 108 mmol/L | [facility] | | | PLASMA | | | DEPARTMENT | | | (LAB) | | | OF | | | | | | PATHOLOGY | | + + + + + + | TOTAL CO2, | 20 (L) | 22 - 29 mmol/L | [facility] | | | PLASMA | | | DEPARTMENT | | | (LAB) | | | OF | | | | | | PATHOLOGY | | + + + + + + | ALT (SGPT) | 10 (L) | 13 - 48 U/L | [facility] | | | | | | DEPARTMENT | | | | | | OF | | | | | | PATHOLOGY | | + + + + + + | ANION GAP | 9 | 4 - 11 mmol/L | [facility] | | | | | | DEPARTMENT | | | | | | OF | | | | | | PATHOLOGY | | + + + + + + | ANION | 12 (H) | 4 - 11 mmol/L | [facility] | | | GAP(ALB | | | DEPARTMENT | | | CORRECTED) | | | OF | | | | | | PATHOLOGY | | + + + + + + + + | Specimen | + + | Blood - Blood | + + + + + + + | Performing | Address | City/State/Zipcode | Phone Number | | Organization | | | | + + + + + | [facility] DEPARTMENT | [phone] | [place] [address] | | | PATHOLOGY | [address] | | | + + + + + CBC, WITH DIFFERENTIAL (11/16/2011 12:13 AM PST) + + + + + + | Component | Value | Ref Range | Performed | Pathologist | | | | | At | Signature | + + + + + + | WHITE CELL | 6.8 | 4.4 - 11.0 K/cu | [facility] | | | COUNT | | mm | DEPARTMENT | | | | | | OF | | | | | | PATHOLOGY | | + + + + + + | RED CELL | 3.28 (L) | 4.00 - 5.20 | [facility] | | | COUNT | | M/cu mm | DEPARTMENT | | | | | | OF | | | | | | PATHOLOGY | | + + + + + + | HEMOGLOBIN | 8.9 (L) | 12.0 - 16.0 | [facility] | | | | | g/dL | DEPARTMENT | | | | | | OF | | | | | | PATHOLOGY | | + + + + + + | HEMATOCRIT | 27.0 (L) | 36.0 - 46.0 % | [facility] | | | | | | DEPARTMENT | | | | | | OF | | | | | | PATHOLOGY | | + + + + + + | MCV | 82.2 | 80.0 - 96.0 fL | [facility] | | | | | | DEPARTMENT | | | | | | OF | | | | | | PATHOLOGY | | + + + + + + | MCHC | 32.9 (L) | 33.4 - 35.5 | [facility] | | | | | g/dL | DEPARTMENT | | | | | | OF | | | | | | PATHOLOGY | | + + + + + + | RDW | 14.0 | 11.5 - 15.0 % | [facility] | | | | | | DEPARTMENT | | | | | | OF | | | | | | PATHOLOGY | | + + + + + + | PLATELET | 365 | 150 - 400 K/cu | [facility] | | | COUNT | | mm | DEPARTMENT | | | | | | OF | | | | | | PATHOLOGY | | + + + + + + + + | Specimen | + + | Blood - Blood | + + + + + + + | Performing | Address | City/State/Zipcode | Phone Number | | Organization | | | | + + + + + | [facility] DEPARTMENT | [address] | [place] [address] | | | PATHOLOGY | [address] | | | + + + + + LDH TOTAL, PLASMA (11/16/2011 12:13 AM PST) + +---------+ + + + | Component | Value | Ref Range | Performed | Pathologist | | | | | At | Signature | + +---------+ + + + | LD TOTAL, | 214 (H) | 110 - 205 U/L | [facility] | | | PLASMA | | | DEPARTMENT | | | | | | OF | | | | | | PATHOLOGY | | + +---------+ + + + + + | Specimen | + + | Blood - Blood | + + + + + + + | Performing | Address | City/State/Zipcode | Phone Number | | Organization | | | | + + + + + | [facility] | [address] | [place] [address] | | | PATHOLOGY | [address] | | | + + + + + PHOSPHORUS, PLASMA (11/16/2011 12:13 AM PST) + +-------+ + + + | Component | Value | Ref Range | Performed | Pathologist | | | | | At | Signature | + +-------+ + + + | PHOSPHORUS, | 4.5 | 2.4 - 4.7 mg/dL | [facility] | | | PLASMA | | | DEPARTMENT | | | (LAB) | | | OF | | | | | | PATHOLOGY | | + +-------+ + + + + + | Specimen | + + | Blood - Blood | + + + + + + + | Performing | Address | City/State/Zipcode | Phone Number | | Organization | | | | + + + + + | [facility] DEPARTMENT OF | [address] | [place] [address] | | | PATHOLOGY | [address] | | | + + + + + BASIC METABOLIC SET (NA, K, CL, TCO2, BUN, CR, GLU, CA) (11/16/2011 12:13 AM PST) + + + + + + | Component | Value | Ref Range | Performed | Pathologist | | | | | At | Signature | + + + + + + | GLUCOSE, | 186 (H) | 60 - 99 mg/dL | [facility] | | | PLASMA | | | DEPARTMENT | | | (LAB) | | | OF | | | | | | PATHOLOGY | | + + + + + + | BUN, PLASMA | 33 (H) | 6 - 20 mg/dL | [facility] | | | (LAB) | | | DEPARTMENT | | | | | | OF | | | | | | PATHOLOGY | | + + + + + + | CREATININE | 1.18 (H) | 0.60 - 1.10 | [facility] | | | PLASMA | | mg/dL | DEPARTMENT | | | (LAB) | | | OF | | | | | | PATHOLOGY | | + + + + + + | SODIUM, | 133 (L) | 134 - 143 | [facility] | | | PLASMA | | mmol/L | DEPARTMENT | | | (LAB) | | | OF | | | | | | PATHOLOGY | | + + + + + + | POTASSIUM, | 4.4 | 3.4 - 5.0 | [facility] | | | PLASMA | | mmol/L | DEPARTMENT | | | (LAB) | | | OF | | | | | | PATHOLOGY | | + + + + + + | CHLORIDE, | 104 | 97 - 108 mmol/L | [facility] | | | PLASMA | | | DEPARTMENT | | | (LAB) | | | OF | | | | | | PATHOLOGY | | + + + + + + | TOTAL CO2, | 20 (L) | 22 - 29 mmol/L | [facility] | | | PLASMA | | | DEPARTMENT | | | (LAB) | | | OF | | | | | | PATHOLOGY | | + + + + + + | CALCIUM, | 8.1 (L) | 8.6 - 10.2 | [facility] | | | PLASMA | | mg/dL | DEPARTMENT | | | (LAB) | | | OF | | | | | | PATHOLOGY | | + + + + + + | ANION GAP | 9 | 4 - 11 mmol/L | [facility] | | | | | | DEPARTMENT | | | | | | OF | | | | | | PATHOLOGY | | + + + + + + + + | Specimen | + + | Blood - Blood | + + + + + + + | Performing | Address | City/State/Zipcode | Phone Number | | Organization | | | | + + + + + | [facility] DEPARTMENT OF | [phone] | [place] [address] | | | PATHOLOGY | [address] | | | + + + + + URIC ACID, PLASMA (11/16/2011 12:13 AM PST) + +-------+ + + + | Component | Value | Ref Range | Performed | Pathologist | | | | | At | Signature | + +-------+ + + + | URIC ACID, | 5.3 | 2.5 - 6.2 mg/dL | [facility] | | | PLASMA | | | DEPARTMENT | | | (LAB) | | | OF | | | | | | PATHOLOGY | | + +-------+ + + + + + | Specimen | + + | Blood - Blood | + + + + + + + | Performing | Address | City/State/Zipcode | Phone Number | | Organization | | | | + + + + + | [facility] | [phone] | [place] [address] | | | PATHOLOGY | [address] | | | + + + + + TRANSTHORACIC ECHOCARDIOGRAM, ADULT (11/16/2011 12:00 AM PST) + + + | Narrative | Performed At | + + + | | | + + + + + | Transcriptions | + + | Other, Faculty - 11/17/2011 1:30 PM PST | + + CAPILLARY BLOOD GLUCOSE, POC (11/15/2011 9:26 PM PST) + +---------+ + + + | Component | Value | Ref Range | Performed | Pathologist | | | | | At | Signature | + +---------+ + + + | BLOOD | 192 (H) | 60 - 99 mg/dL | [facility] - | | | GLUCOSE, | | | [facility] | | | POC | | | [facility] | | | | | | OF CARE | | | | | | TESTS | | + +---------+ + + + + + | Specimen | + + | | + + + + + + + | Performing | Address | City/State/Zipcode | Phone Number | | Organization | | | | + + + + + | [facility] | [address] | [place], [place] | | | [facility] | [address] | [address] | | | TESTS | | | | + + + + + LDH TOTAL, PLASMA (11/15/2011 8:08 PM PST) + + + + + + | Component | Value | Ref Range | Performed | Pathologist | | | | | At | Signature | + + + + + + | LD TOTAL, | Combined. | 110 - 205 U/L | [facility] | | | PLASMA | | | DEPARTMENT | | | | | | OF | | | | | | PATHOLOGY | | + + + + + + + + | Specimen | + + | Blood - Blood | + + + + + + + | Performing | Address | City/State/Zipcode | Phone Number | | Organization | | | | + + + + + | [facility] DEPARTMENT OF | [phone] | [place] [address] | | | PATHOLOGY | [address] | | | + + + + + LDH TOTAL, PLASMA (11/15/2011 8:01 PM PST) + +---------+ + + + | Component | Value | Ref Range | Performed | Pathologist | | | | | At | Signature | + +---------+ + + + | LD TOTAL, | 224 (H) | 110 - 205 U/L | [facility] | | | PLASMA | | | DEPARTMENT | | | | | | OF | | | | | | PATHOLOGY | | + +---------+ + + + + + | Specimen | + + | | + + + + + + + | Performing | Address | City/State/Zipcode | Phone Number | | Organization | | | | + + + + + | [facility] | [phone] | [place] [address] | | | PATHOLOGY | [address] | | | + + + + + PHOSPHORUS, PLASMA (11/15/2011 8:01 PM PST) + +-------+ + + + | Component | Value | Ref Range | Performed | Pathologist | | | | | At | Signature | + +-------+ + + + | PHOSPHORUS, | 4.6 | 2.4 - 4.7 mg/dL | [facility] | | | PLASMA | | | DEPARTMENT | | | (LAB) | | | OF | | | | | | PATHOLOGY | | + +-------+ + + + + + | Specimen | + + | Blood - Blood | + + + + + + + | Performing | Address | City/State/Zipcode | Phone Number | | Organization | | | | + + + + + | [facility] | [phone] | [place] [address] | | | PATHOLOGY | [address] | | | + + + + + BASIC METABOLIC SET (NA, K, CL, TCO2, BUN, CR, GLU, CA) (11/15/2011 8:01 PM PST) + + + + + + | Component | Value | Ref Range | Performed | Pathologist | | | | | At | Signature | + + + + + + | GLUCOSE, | 186 (H) | 60 - 99 mg/dL | [facility] | | | PLASMA | | | DEPARTMENT | | | (LAB) | | | OF | | | | | | PATHOLOGY | | + + + + + + | BUN, PLASMA | 33 (H) | 6 - 20 mg/dL | [facility] | | | (LAB) | | | DEPARTMENT | | | | | | OF | | | | | | PATHOLOGY | | + + + + + + | CREATININE | 1.22 (H) | 0.60 - 1.10 | [facility] | | | PLASMA | | mg/dL | DEPARTMENT | | | (LAB) | | | OF | | | | | | PATHOLOGY | | + + + + + + | SODIUM, | 135 | 134 - 143 | [facility] | | | PLASMA | | mmol/L | DEPARTMENT | | | (LAB) | | | OF | | | | | | PATHOLOGY | | + + + + + + | POTASSIUM, | 4.3 | 3.4 - 5.0 | [facility] | | | PLASMA | | mmol/L | DEPARTMENT | | | (LAB) | | | OF | | | | | | PATHOLOGY | | + + + + + + | CHLORIDE, | 105 | 97 - 108 mmol/L | [facility] | | | PLASMA | | | DEPARTMENT | | | (LAB) | | | OF | | | | | | PATHOLOGY | | + + + + + + | TOTAL CO2, | 20 (L) | 22 - 29 mmol/L | [facility] | | | PLASMA | | | DEPARTMENT | | | (LAB) | | | OF | | | | | | PATHOLOGY | | + + + + + + | CALCIUM, | 8.3 (L) | 8.6 - 10.2 | [facility] | | | PLASMA | | mg/dL | DEPARTMENT | | | (LAB) | | | OF | | | | | | PATHOLOGY | | + + + + + + | ANION GAP | 10 | 4 - 11 mmol/L | [facility] | | | | | | DEPARTMENT | | | | | | OF | | | | | | PATHOLOGY | | + + + + + + + + | Specimen | + + | Blood - Blood | + + + + + + + | Performing | Address | City/State/Zipcode | Phone Number | | Organization | | | | + + + + + | [facility] DEPARTMENT OF | [address] | [place] [address] | | | PATHOLOGY | [address] | | | + + + + + URIC ACID, PLASMA (11/15/2011 8:01 PM PST) + +-------+ + + + | Component | Value | Ref Range | Performed | Pathologist | | | | | At | Signature | + +-------+ + + + | URIC ACID, | 5.5 | 2.5 - 6.2 mg/dL | [facility] | | | PLASMA | | | DEPARTMENT | | | (LAB) | | | OF | | | | | | PATHOLOGY | | + +-------+ + + + + + | Specimen | + + | Blood - Blood | + + + + + + + | Performing | Address | City/State/Zipcode | Phone Number | | Organization | | | | + + + + + | [facility] | [address] | [place] [address] | | | PATHOLOGY | [address] | | | + + + + + CAPILLARY BLOOD GLUCOSE, POC (11/15/2011 6:15 PM PST) + +---------+ + + + | Component | Value | Ref Range | Performed | Pathologist | | | | | At | Signature | + +---------+ + + + | BLOOD | 208 (H) | 60 - 99 mg/dL | [facility] - | | | GLUCOSE, | | | [facility] | | | POC | | | [facility] | | | | | | OF CARE | | | | | | TESTS | | + +---------+ + + + + + | Specimen | + + | | + + + + + + + | Performing | Address | City/State/Zipcode | Phone Number | | Organization | | | | + + + + + | [facility] | [address] | [place], [place] | | | [facility] | [address] | [address] | | | TESTS | | | | + + + + + CAPILLARY BLOOD GLUCOSE, POC (11/15/2011 2:15 PM PST) + +---------+ + + + | Component | Value | Ref Range | Performed | Pathologist | | | | | At | Signature | + +---------+ + + + | BLOOD | 203 (H) | 60 - 99 mg/dL | [facility] - | | | GLUCOSE, | | | [facility] | | | POC | | | [facility] | | | | | | OF CARE | | | | | | TESTS | | + +---------+ + + + + + | Specimen | + + | | + + + + + + + | Performing | Address | City/State/Zipcode | Phone Number | | Organization | | | | + + + + + | [facility] | [address] | [place], [place] | | | [facility] | [facility] | [address] | | | TESTS | | | | + + + + + PHOSPHORUS, PLASMA (11/15/2011 12:13 PM PST) + +---------+ + + + | Component | Value | Ref Range | Performed | Pathologist | | | | | At | Signature | + +---------+ + + + | PHOSPHORUS, | 5.2 (H) | 2.4 - 4.7 mg/dL | [facility] | | | PLASMA | | | DEPARTMENT | | | (LAB) | | | OF | | | | | | PATHOLOGY | | + +---------+ + + + + + | Specimen | + + | Blood - Blood | + + + + + + + | Performing | Address | City/State/Zipcode | Phone Number | | Organization | | | | + + + + + | [facility] DEPARTMENT OF | [address] | [place] [address] | | | PATHOLOGY | [address] | | | + + + + + LDH TOTAL, PLASMA (11/15/2011 12:13 PM PST) + +---------+ + + + | Component | Value | Ref Range | Performed | Pathologist | | | | | At | Signature | + +---------+ + + + | LD TOTAL, | 235 (H) | 110 - 205 U/L | [facility] | | | PLASMA | | | DEPARTMENT | | | | | | OF | | | | | | PATHOLOGY | | + +---------+ + + + + + | Specimen | + + | Blood - Blood | + + + + + + + | Performing | Address | City/State/Zipcode | Phone Number | | Organization | | | | + + + + + | [facility] DEPARTMENT OF | [address] | [place] [address] | | | PATHOLOGY | [address] | | | + + + + + URIC ACID, PLASMA (11/15/2011 12:13 PM PST) + +-------+ + + + | Component | Value | Ref Range | Performed | Pathologist | | | | | At | Signature | + +-------+ + + + | URIC ACID, | 6.1 | 2.5 - 6.2 mg/dL | [facility] | | | PLASMA | | | DEPARTMENT | | | (LAB) | | | OF | | | | | | PATHOLOGY | | + +-------+ + + + + + | Specimen | + + | Blood - Blood | + + + + + + + | Performing | Address | City/State/Zipcode | Phone Number | | Organization | | | | + + + + + | [facility] | [address] | [place] [address] | | | PATHOLOGY | [address] | | | + + + + + BASIC METABOLIC SET (NA, K, CL, TCO2, BUN, CR, GLU, CA) (11/15/2011 12:13 PM PST) + + + + + + | Component | Value | Ref Range | Performed | Pathologist | | | | | At | Signature | + + + + + + | GLUCOSE, | 198 (H) | 60 - 99 mg/dL | [facility] | | | PLASMA | | | DEPARTMENT | | | (LAB) | | | OF | | | | | | PATHOLOGY | | + + + + + + | BUN, PLASMA | 32 (H) | 6 - 20 mg/dL | [facility] | | | (LAB) | | | DEPARTMENT | | | | | | OF | | | | | | PATHOLOGY | | + + + + + + | CREATININE | 1.41 (H) | 0.60 - 1.10 | [facility] | | | PLASMA | | mg/dL | DEPARTMENT | | | (LAB) | | | OF | | | | | | PATHOLOGY | | + + + + + + | SODIUM, | 134 | 134 - 143 | [facility] | | | PLASMA | | mmol/L | DEPARTMENT | | | (LAB) | | | OF | | | | | | PATHOLOGY | | + + + + + + | POTASSIUM, | 4.5 | 3.4 - 5.0 | [facility] | | | PLASMA | | mmol/L | DEPARTMENT | | | (LAB) | | | OF | | | | | | PATHOLOGY | | + + + + + + | CHLORIDE, | 102 | 97 - 108 mmol/L | [facility] | | | PLASMA | | | DEPARTMENT | | | (LAB) | | | OF | | | | | | PATHOLOGY | | + + + + + + | TOTAL CO2, | 21 (L) | 22 - 29 mmol/L | [facility] | | | PLASMA | | | DEPARTMENT | | | (LAB) | | | OF | | | | | | PATHOLOGY | | + + + + + + | CALCIUM, | 8.4 (L) | 8.6 - 10.2 | [facility] | | | PLASMA | | mg/dL | DEPARTMENT | | | (LAB) | | | OF | | | | | | PATHOLOGY | | + + + + + + | ANION GAP | 11 | 4 - 11 mmol/L | [facility] | | | | | | DEPARTMENT | | | | | | OF | | | | | | PATHOLOGY | | + + + + + + + + | Specimen | + + | Blood - Blood | + + + + + + + | Performing | Address | City/State/Zipcode | Phone Number | | Organization | | | | + + + + + | [facility] DEPARTMENT OF | [address] | [place] [address] | | | PATHOLOGY | [address] | | | + + + + + CAPILLARY BLOOD GLUCOSE, POC (11/15/2011 9:00 AM PST) + +---------+ + + + | Component | Value | Ref Range | Performed | Pathologist | | | | | At | Signature | + +---------+ + + + | BLOOD | 164 (H) | 60 - 99 mg/dL | [facility] - | | | GLUCOSE, | | | [facility] | | | POC | | | [facility] | | | | | | OF CARE | | | | | | TESTS | | + +---------+ + + + + + | Specimen | + + | | + + + + + + + | Performing | Address | City/State/Zipcode | Phone Number | | Organization | | | | + + + + + | [facility] | [address] | [place], [place] | | | [facility] | [address] | [address] | | | TESTS | | | | + + + + + DIFFERENTIAL (11/15/2011 6:09 AM PST) + +---------+ + + + | Component | Value | Ref Range | Performed | Pathologist | | | | | At | Signature | + +---------+ + + + | NEUTROPHIL | 85 (H) | 50 - 70 % | [facility] | | | % | | | DEPARTMENT | | | | | | OF | | | | | | PATHOLOGY | | + +---------+ + + + | LYMPHOCYTE | 14 (L) | 18 - 42 % | [facility] | | | % | | | DEPARTMENT | | | | | | OF | | | | | | PATHOLOGY | | + +---------+ + + + | MONOCYTE % | 1 (L) | 2 - 8 % | [facility] | | | | | | DEPARTMENT | | | | | | OF | | | | | | PATHOLOGY | | + +---------+ + + + | EOS % | 0 (L) | 1 - 3 % | [facility] | | | | | | DEPARTMENT | | | | | | OF | | | | | | PATHOLOGY | | + +---------+ + + + | BASO % | 0 | <3 % | [facility] | | | | | | DEPARTMENT | | | | | | OF | | | | | | PATHOLOGY | | + +---------+ + + + | NEUTROPHIL | 4.2 | 1.8 - 7.7 K/cu | [facility] | | | # | | mm | DEPARTMENT | | | | | | OF | | | | | | PATHOLOGY | | + +---------+ + + + | LYMPHOCYTE | 0.7 (L) | 1.0 - 4.8 K/cu | [facility] | | | # | | mm | DEPARTMENT | | | | | | OF | | | | | | PATHOLOGY | | + +---------+ + + + | MONOCYTE # | 0.1 | <0.9 K/cu mm | [facility] | | | | | | DEPARTMENT | | | | | | OF | | | | | | PATHOLOGY | | + +---------+ + + + | EOS # | 0.0 | <0.6 K/cu mm | [facility] | | | | | | DEPARTMENT | | | | | | OF | | | | | | PATHOLOGY | | + +---------+ + + + | BASO # | 0.0 | <0.3 | [facility] | | | | | | DEPARTMENT | | | | | | OF | | | | | | PATHOLOGY | | + +---------+ + + + + + | Specimen | + + | | + + + + + + + | Performing | Address | City/State/Zipcode | Phone Number | | Organization | | | | + + + + + | [facility] | [address] | [place] [address] | | | PATHOLOGY | [address] | | | + + + + + CBC, WITH DIFFERENTIAL (11/15/2011 6:09 AM PST) + + + + + + | Component | Value | Ref Range | Performed | Pathologist | | | | | At | Signature | + + + + + + | WHITE CELL | 4.9 | 4.4 - 11.0 K/cu | [facility] | | | COUNT | | mm | DEPARTMENT | | | | | | OF | | | | | | PATHOLOGY | | + + + + + + | RED CELL | 3.46 (L) | 4.00 - 5.20 | [facility] | | | COUNT | | M/cu mm | DEPARTMENT | | | | | | OF | | | | | | PATHOLOGY | | + + + + + + | HEMOGLOBIN | 9.4 (L) | 12.0 - 16.0 | [facility] | | | | | g/dL | DEPARTMENT | | | | | | OF | | | | | | PATHOLOGY | | + + + + + + | HEMATOCRIT | 28.3 (L) | 36.0 - 46.0 % | [facility] | | | | | | DEPARTMENT | | | | | | OF | | | | | | PATHOLOGY | | + + + + + + | MCV | 81.8 | 80.0 - 96.0 fL | [facility] | | | | | | DEPARTMENT | | | | | | OF | | | | | | PATHOLOGY | | + + + + + + | MCHC | 33.3 (L) | 33.4 - 35.5 | [facility] | | | | | g/dL | DEPARTMENT | | | | | | OF | | | | | | PATHOLOGY | | + + + + + + | RDW | 14.0 | 11.5 - 15.0 % | [facility] | | | | | | DEPARTMENT | | | | | | OF | | | | | | PATHOLOGY | | + + + + + + | PLATELET | 384 | 150 - 400 K/cu | [facility] | | | COUNT | | mm | DEPARTMENT | | | | | | OF | | | | | | PATHOLOGY | | + + + + + + + + | Specimen | + + | Blood - Blood | + + + + + + + | Performing | Address | City/State/Zipcode | Phone Number | | Organization | | | | + + + + + | [facility] | [address] | [place] [address] | | | PATHOLOGY | [address] | | | + + + + + PHOSPHORUS, PLASMA (11/15/2011 6:09 AM PST) + +---------+ + + + | Component | Value | Ref Range | Performed | Pathologist | | | | | At | Signature | + +---------+ + + + | PHOSPHORUS, | 5.5 (H) | 2.4 - 4.7 mg/dL | [facility] | | | PLASMA | | | DEPARTMENT | | | (LAB) | | | OF | | | | | | PATHOLOGY | | + +---------+ + + + + + | Specimen | + + | Blood - Blood | + + + + + + + | Performing | Address | City/State/Zipcode | Phone Number | | Organization | | | | + + + + + | [facility] DEPARTMENT OF | [address] | [place] [address] | | | PATHOLOGY | [address] | | | + + + + + MAGNESIUM, PLASMA (11/15/2011 6:09 AM PST) + +-------+ + + + | Component | Value | Ref Range | Performed | Pathologist | | | | | At | Signature | + +-------+ + + + | MAGNESIUM,P | 1.9 | 1.8 - 2.5 mg/dL | [facility] | | | LASMA | | | DEPARTMENT | | | | | | OF | | | | | | PATHOLOGY | | + +-------+ + + + + + | Specimen | + + | Blood - Blood | + + + + + + + | Performing | Address | City/State/Zipcode | Phone Number | | Organization | | | | + + + + + | [facility] DEPARTMENT OF | [address] | [place] [address] | | | PATHOLOGY | [address] | | | + + + + + COMPLETE METABOLIC SET (NA,K,CL,CO2,BUN,CREAT,GLUC,CA,AST,ALT,BILI TOTAL,ALK PHOS,ALB,PROT TOTAL) (11/15/2011 6:09 AM PST) + + + + + + | Component | Value | Ref Range | Performed | Pathologist | | | | | At | Signature | + + + + + + | GLUCOSE, | 151 (H) | 60 - 99 mg/dL | [facility] | | | PLASMA | | | DEPARTMENT | | | (LAB) | | | OF | | | | | | PATHOLOGY | | + + + + + + | BUN, PLASMA | 29 (H) | 6 - 20 mg/dL | [facility] | | | (LAB) | | | DEPARTMENT | | | | | | OF | | | | | | PATHOLOGY | | + + + + + + | CREATININE | 1.54 (H) | 0.60 - 1.10 | [facility] | | | PLASMA | | mg/dL | DEPARTMENT | | | (LAB) | | | OF | | | | | | PATHOLOGY | | + + + + + + | TOTAL | 6.0 (L) | 6.1 - 7.9 g/dL | [facility] | | | PROTEIN, | | | DEPARTMENT | | | PLASMA | | | OF | | | (LAB) | | | PATHOLOGY | | + + + + + + | ALBUMIN, | 2.5 (L) | 3.5 - 4.7 g/dL | [facility] | | | PLASMA | | | DEPARTMENT | | | (LAB) | | | OF | | | | | | PATHOLOGY | | + + + + + + | CALCIUM, | 8.4 (L) | 8.6 - 10.2 | [facility] | | | PLASMA | | mg/dL | DEPARTMENT | | | (LAB) | | | OF | | | | | | PATHOLOGY | | + + + + + + | BILIRUBIN | 0.7 | 0.3 - 1.2 mg/dL | [facility] | | | TOTAL | | | DEPARTMENT | | | | | | OF | | | | | | PATHOLOGY | | + + + + + + | ALK PHOS | 66 | 42 - 98 U/L | [facility] | | | | | | DEPARTMENT | | | | | | OF | | | | | | PATHOLOGY | | + + + + + + | AST(SGOT) | 16 | 15 - 41 U/L | [facility] | | | | | | DEPARTMENT | | | | | | OF | | | | | | PATHOLOGY | | + + + + + + | SODIUM, | 132 (L) | 134 - 143 | [facility] | | | PLASMA | | mmol/L | DEPARTMENT | | | (LAB) | | | OF | | | | | | PATHOLOGY | | + + + + + + | POTASSIUM, | 4.8 | 3.4 - 5.0 | [facility] | | | PLASMA | | mmol/L | DEPARTMENT | | | (LAB) | | | OF | | | | | | PATHOLOGY | | + + + + + + | CHLORIDE, | 101 | 97 - 108 mmol/L | [facility] | | | PLASMA | | | DEPARTMENT | | | (LAB) | | | OF | | | | | | PATHOLOGY | | + + + + + + | TOTAL CO2, | 23 | 22 - 29 mmol/L | [facility] | | | PLASMA | | | DEPARTMENT | | | (LAB) | | | OF | | | | | | PATHOLOGY | | + + + + + + | ALT (SGPT) | 11 (L) | 13 - 48 U/L | [facility] | | | | | | DEPARTMENT | | | | | | OF | | | | | | PATHOLOGY | | + + + + + + | ANION GAP | 8 | 4 - 11 mmol/L | [facility] | | | | | | DEPARTMENT | | | | | | OF | | | | | | PATHOLOGY | | + + + + + + | ANION | 11 | 4 - 11 mmol/L | [facility] | | | GAP(ALB | | | DEPARTMENT | | | CORRECTED) | | | OF | | | | | | PATHOLOGY | | + + + + + + + + | Specimen | + + | Blood - Blood | + + + + + + + | Performing | Address | City/State/Zipcode | Phone Number | | Organization | | | | + + + + + | [facility] | [address] | [place] [address] | | | PATHOLOGY | [address] | | | + + + + + LDH TOTAL, PLASMA (11/15/2011 6:09 AM PST) + +---------+ + + + | Component | Value | Ref Range | Performed | Pathologist | | | | | At | Signature | + +---------+ + + + | LD TOTAL, | 221 (H) | 110 - 205 U/L | [facility] | | | PLASMA | | | DEPARTMENT | | | | | | OF | | | | | | PATHOLOGY | | + +---------+ + + + + + | Specimen | + + | Blood - Blood | + + + + + + + | Performing | Address | City/State/Zipcode | Phone Number | | Organization | | | | + + + + + | [facility] | [address] | [place] [address] | | | PATHOLOGY | [address] | | | + + + + + URIC ACID, PLASMA (11/15/2011 6:09 AM PST) + +---------+ + + + | Component | Value | Ref Range | Performed | Pathologist | | | | | At | Signature | + +---------+ + + + | URIC ACID, | 6.5 (H) | 2.5 - 6.2 mg/dL | [facility] | | | PLASMA | | | DEPARTMENT | | | (LAB) | | | OF | | | | | | PATHOLOGY | | + +---------+ + + + + + | Specimen | + + | Blood - Blood | + + + + + + + | Performing | Address | City/State/Zipcode | Phone Number | | Organization | | | | + + + + + | [facility] DEPARTMENT OF | [address] | [place] [address] | | | PATHOLOGY | [address] | | | + + + + + BASIC METABOLIC SET (NA, K, CL, TCO2, BUN, CR, GLU, CA) (11/15/2011 6:09 AM PST) + + + + + + | Component | Value | Ref Range | Performed | Pathologist | | | | | At | Signature | + + + + + + | GLUCOSE, | 151 (H) | 60 - 99 mg/dL | [facility] | | | PLASMA | | | DEPARTMENT | | | (LAB) | | | OF | | | | | | PATHOLOGY | | + + + + + + | BUN, PLASMA | 29 (H) | 6 - 20 mg/dL | [facility] | | | (LAB) | | | DEPARTMENT | | | | | | OF | | | | | | PATHOLOGY | | + + + + + + | CREATININE | 1.54 (H) | 0.60 - 1.10 | [facility] | | | PLASMA | | mg/dL | DEPARTMENT | | | (LAB) | | | OF | | | | | | PATHOLOGY | | + + + + + + | SODIUM, | 132 (L) | 134 - 143 | [facility] | | | PLASMA | | mmol/L | DEPARTMENT | | | (LAB) | | | OF | | | | | | PATHOLOGY | | + + + + + + | POTASSIUM, | 4.8 | 3.4 - 5.0 | [facility] | | | PLASMA | | mmol/L | DEPARTMENT | | | (LAB) | | | OF | | | | | | PATHOLOGY | | + + + + + + | CHLORIDE, | 101 | 97 - 108 mmol/L | [facility] | | | PLASMA | | | DEPARTMENT | | | (LAB) | | | OF | | | | | | PATHOLOGY | | + + + + + + | TOTAL CO2, | 23 | 22 - 29 mmol/L | [facility] | | | PLASMA | | | DEPARTMENT | | | (LAB) | | | OF | | | | | | PATHOLOGY | | + + + + + + | CALCIUM, | 8.4 (L) | 8.6 - 10.2 | [facility] | | | PLASMA | | mg/dL | DEPARTMENT | | | (LAB) | | | OF | | | | | | PATHOLOGY | | + + + + + + | ANION GAP | 8 | 4 - 11 mmol/L | [facility] | | | | | | DEPARTMENT | | | | | | OF | | | | | | PATHOLOGY | | + + + + + + + + | Specimen | + + | Blood - Blood | + + + + + + + | Performing | Address | City/State/Zipcode | Phone Number | | Organization | | | | + + + + + | [facility] DEPARTMENT OF | [address] | [place] [address] | | | PATHOLOGY | [address] | | | + + + + + PHOSPHORUS, PLASMA (11/15/2011 12:24 AM PST) + +---------+ + + + | Component | Value | Ref Range | Performed | Pathologist | | | | | At | Signature | + +---------+ + + + | PHOSPHORUS, | 5.2 (H) | 2.4 - 4.7 mg/dL | [facility] | | | PLASMA | | | DEPARTMENT | | | (LAB) | | | OF | | | | | | PATHOLOGY | | + +---------+ + + + + + | Specimen | + + | Blood - Blood | + + + + + + + | Performing | Address | City/State/Zipcode | Phone Number | | Organization | | | | + + + + + | [facility] | [address] | [place] [address] | | | PATHOLOGY | [address] | | | + + + + + LDH TOTAL, PLASMA (11/15/2011 12:24 AM PST) + +---------+ + + + | Component | Value | Ref Range | Performed | Pathologist | | | | | At | Signature | + +---------+ + + + | LD TOTAL, | 217 (H) | 110 - 205 U/L | [facility] | | | PLASMA | | | DEPARTMENT | | | | | | OF | | | | | | PATHOLOGY | | + +---------+ + + + + + | Specimen | + + | Blood - Blood | + + + + + + + | Performing | Address | City/State/Zipcode | Phone Number | | Organization | | | | + + + + + | [facility] DEPARTMENT [facility] | [address] | [place] [address] | | | PATHOLOGY | [address] | | | + + + + + URIC ACID, PLASMA (11/15/2011 12:24 AM PST) + +---------+ + + + | Component | Value | Ref Range | Performed | Pathologist | | | | | At | Signature | + +---------+ + + + | URIC ACID, | 6.8 (H) | 2.5 - 6.2 mg/dL | [facility] | | | PLASMA | | | DEPARTMENT | | | (LAB) | | | OF | | | | | | PATHOLOGY | | + +---------+ + + + + + | Specimen | + + | Blood - Blood | + + + + + + + | Performing | Address | City/State/Zipcode | Phone Number | | Organization | | | | + + + + + | [facility] DEPARTMENT | [address] | [place] [address] | | | PATHOLOGY | [address] | | | + + + + + BASIC METABOLIC SET (NA, K, CL, TCO2, BUN, CR, GLU, CA) (11/15/2011 12:24 AM PST) + + + + + + | Component | Value | Ref Range | Performed | Pathologist | | | | | At | Signature | + + + + + + | GLUCOSE, | 142 (H) | 60 - 99 mg/dL | [facility] | | | PLASMA | | | DEPARTMENT | | | (LAB) | | | OF | | | | | | PATHOLOGY | | + + + + + + | BUN, PLASMA | 24 (H) | 6 - 20 mg/dL | [facility] | | | (LAB) | | | DEPARTMENT | | | | | | OF | | | | | | PATHOLOGY | | + + + + + + | CREATININE | 1.60 (H) | 0.60 - 1.10 | [facility] | | | PLASMA | | mg/dL | DEPARTMENT | | | (LAB) | | | OF | | | | | | PATHOLOGY | | + + + + + + | SODIUM, | 132 (L) | 134 - 143 | [facility] | | | PLASMA | | mmol/L | DEPARTMENT | | | (LAB) | | | OF | | | | | | PATHOLOGY | | + + + + + + | POTASSIUM, | 4.6 | 3.4 - 5.0 | [facility] | | | PLASMA | | mmol/L | DEPARTMENT | | | (LAB) | | | OF | | | | | | PATHOLOGY | | + + + + + + | CHLORIDE, | 100 | 97 - 108 mmol/L | [facility] | | | PLASMA | | | DEPARTMENT | | | (LAB) | | | OF | | | | | | PATHOLOGY | | + + + + + + | TOTAL CO2, | 20 (L) | 22 - 29 mmol/L | [facility] | | | PLASMA | | | DEPARTMENT | | | (LAB) | | | OF | | | | | | PATHOLOGY | | + + + + + + | CALCIUM, | 8.4 (L) | 8.6 - 10.2 | [facility] | | | PLASMA | | mg/dL | DEPARTMENT | | | (LAB) | | | OF | | | | | | PATHOLOGY | | + + + + + + | ANION GAP | 12 (H) | 4 - 11 mmol/L | [facility] | | | | | | DEPARTMENT | | | | | | OF | | | | | | PATHOLOGY | | + + + + + + + + | Specimen | + + | Blood - Blood | + + + + + + + | Performing | Address | City/State/Zipcode | Phone Number | | Organization | | | | + + + + + | [facility] DEPARTMENT OF | [phone] | [place] [address] | | | PATHOLOGY | [address] | | | + + + + + CAPILLARY BLOOD GLUCOSE, POC (11/15/2011 12:21 AM PST) + +---------+ + + + | Component | Value | Ref Range | Performed | Pathologist | | | | | At | Signature | + +---------+ + + + | BLOOD | 149 (H) | 60 - 99 mg/dL | [facility] - | | | GLUCOSE, | | | [facility] | | | POC | | | [facility] | | | | | | OF CARE | | | | | | TESTS | | + +---------+ + + + + + | Specimen | + + | | + + + + + + + | Performing | Address | City/State/Zipcode | Phone Number | | Organization | | | | + + + + + | [facility] | [address] | [place], [place] | | | [facility] | [facility] | [address] | | | TESTS | | | | + + + + + CAPILLARY BLOOD GLUCOSE, POC (11/14/2011 9:53 PM PST) + +---------+ + + + | Component | Value | Ref Range | Performed | Pathologist | | | | | At | Signature | + +---------+ + + + | BLOOD | 178 (H) | 60 - 99 mg/dL | [facility] - | | | GLUCOSE, | | | [facility] | | | POC | | | [place] [place] | | | | | | OF CARE | | | | | | TESTS | | + +---------+ + + + + + | Specimen | + + | | + + + + + + + | Performing | Address | City/State/Zipcode | Phone Number | | Organization | | | | + + + + + | [facility] | [address] | [place], [place] | | | [facility] | [facility] | [phone] | | | TESTS | | | | + + + + + PHOSPHORUS, PLASMA (11/14/2011 8:02 PM PST) + +---------+ + + + | Component | Value | Ref Range | Performed | Pathologist | | | | | At | Signature | + +---------+ + + + | PHOSPHORUS, | 4.8 (H) | 2.4 - 4.7 mg/dL | [facility] | | | PLASMA | | | DEPARTMENT | | | (LAB) | | | OF | | | | | | PATHOLOGY | | + +---------+ + + + + + | Specimen | + + | Blood - Blood | + + + + + + + | Performing | Address | City/State/Zipcode | Phone Number | | Organization | | | | + + + + + | [facility] DEPARTMENT OF | [phone] | [place] [address] | | | PATHOLOGY | [address] | | | + + + + + LDH TOTAL, PLASMA (11/14/2011 8:02 PM PST) + +---------+ + + + | Component | Value | Ref Range | Performed | Pathologist | | | | | At | Signature | + +---------+ + + + | LD TOTAL, | 233 (H) | 110 - 205 U/L | [facility] | | | PLASMA | | | DEPARTMENT | | | | | | OF | | | | | | PATHOLOGY | | + +---------+ + + + + + | Specimen | + + | Blood - Blood | + + + + + + + | Performing | Address | City/State/Zipcode | Phone Number | | Organization | | | | + + + + + | [facility] DEPARTMENT OF | [phone] | [place] [address] | | | PATHOLOGY | [address] | | | + + + + + URIC ACID, PLASMA (11/14/2011 8:02 PM PST) + +---------+ + + + | Component | Value | Ref Range | Performed | Pathologist | | | | | At | Signature | + +---------+ + + + | URIC ACID, | 7.0 (H) | 2.5 - 6.2 mg/dL | [facility] | | | PLASMA | | | DEPARTMENT | | | (LAB) | | | OF | | | | | | PATHOLOGY | | + +---------+ + + + + + | Specimen | + + | Blood - Blood | + + + + + + + | Performing | Address | City/State/Zipcode | Phone Number | | Organization | | | | + + + + + | [facility] | [address] | [place] [address] | | | PATHOLOGY | [address] | | | + + + + + BASIC METABOLIC SET (NA, K, CL, TCO2, BUN, CR, GLU, CA) (11/14/2011 8:02 PM PST) + + + + + + | Component | Value | Ref Range | Performed | Pathologist | | | | | At | Signature | + + + + + + | GLUCOSE, | 151 (H) | 60 - 99 mg/dL | [facility] | | | PLASMA | | | DEPARTMENT | | | (LAB) | | | OF | | | | | | PATHOLOGY | | + + + + + + | BUN, PLASMA | 25 (H) | 6 - 20 mg/dL | [facility] | | | (LAB) | | | DEPARTMENT | | | | | | OF | | | | | | PATHOLOGY | | + + + + + + | CREATININE | 1.55 (H) | 0.60 - 1.10 | [facility] | | | PLASMA | | mg/dL | DEPARTMENT | | | (LAB) | | | OF | | | | | | PATHOLOGY | | + + + + + + | SODIUM, | 132 (L) | 134 - 143 | [facility] | | | PLASMA | | mmol/L | DEPARTMENT | | | (LAB) | | | OF | | | | | | PATHOLOGY | | + + + + + + | POTASSIUM, | 4.9 | 3.4 - 5.0 | [facility] | | | PLASMA | | mmol/L | DEPARTMENT | | | (LAB) | | | OF | | | | | | PATHOLOGY | | + + + + + + | CHLORIDE, | 99 | 97 - 108 mmol/L | [facility] | | | PLASMA | | | DEPARTMENT | | | (LAB) | | | OF | | | | | | PATHOLOGY | | + + + + + + | TOTAL CO2, | 20 (L) | 22 - 29 mmol/L | [facility] | | | PLASMA | | | DEPARTMENT | | | (LAB) | | | OF | | | | | | PATHOLOGY | | + + + + + + | CALCIUM, | 8.6 | 8.6 - 10.2 | [facility] | | | PLASMA | | mg/dL | DEPARTMENT | | | (LAB) | | | OF | | | | | | PATHOLOGY | | + + + + + + | ANION GAP | 13 (H) | 4 - 11 mmol/L | [facility] | | | | | | DEPARTMENT | | | | | | OF | | | | | | PATHOLOGY | | + + + + + + + + | Specimen | + + | Blood - Blood | + + + + + + + | Performing | Address | City/State/Zipcode | Phone Number | | Organization | | | | + + + + + | [facility] DEPARTMENT | [address] | [place] [address] | | | PATHOLOGY | [address] | | | + + + + + CAPILLARY BLOOD GLUCOSE, POC (11/14/2011 5:52 PM PST) + +---------+ + + + | Component | Value | Ref Range | Performed | Pathologist | | | | | At | Signature | + +---------+ + + + | BLOOD | 122 (H) | 60 - 99 mg/dL | [facility] - | | | GLUCOSE, | | | [facility] | | | POC | | | [facility] | | | | | | OF CARE | | | | | | TESTS | | + +---------+ + + + + + | Specimen | + + | | + + + + + + + | Performing | Address | City/State/Zipcode | Phone Number | | Organization | | | | + + + + + | [facility] | [address] | [place], [place] | | | [facility] | [address] | [address] | | | TESTS | | | | + + + + + CT CHEST, ABDOMEN & PELVIS W IV CONTRAST (11/14/2011 3:48 PM PST) + + + + + + | Component | Value | Ref Range | Performed | Pathologist | | | | | At | Signature | + + + + + + | CT CHEST, | Exam: Contrast enhanced | | | | | ABDOMEN & | CT of the chest, abdomen | | | | | PELVIS W | and pelvis. History: | | | | | CONTRAST | Burkitt's lymphoma. | | | | | | Recent laparoscopy on | | | | | | 11/10/11. Comparison: | | | | | | Outside CT 10/05/11. | | | | | | Technique: The patient | | | | | | received oral contrast | | | | | | and 100 cc of | | | | | | Visipaqueintravenous | | | | | | contrast. Portal | | | | | | venous phase imaging was | | | | | | performedthrough the | | | | | | chest, abdomen and | | | | | | pelvis. Overlapping | | | | | | axial 5-mmreconstructed | | | | | | images and coronal | | | | | | reformations are | | | | | | reviewed. FINDINGS: | | | | | | Chest: There are a few | | | | | | bilateral areas of | | | | | | subpleural opacities, | | | | | | aswell as groundglass | | | | | | nodules, measuring 9 mm | | | | | | in the right upper | | | | | | lobe(image 31), 4 mm in | | | | | | the right upper lobe | | | | | | posterior segment | | | | | | (image39), 6 mm in the | | | | | | superior segment of the | | | | | | right lower lobe (image | | | | | | 66),and 7 mm and the | | | | | | left upper lobe (image | | | | | | 28). No pleural | | | | | | effusion. Mediastinal | | | | | | and hilar | | | | | | lymphadenopathy are | | | | | | present: Right hilar | | | | | | node, image 53 measures | | | | | | 2.5 x 2.8 cm. Subcarinal | | | | | | node, image 58 measures | | | | | | 2.6 by 1.1 cm. Slightly | | | | | | more superior | | | | | | subcarinal node, image | | | | | | 47 measures 1.5 by | | | | | | 2.7centimeters. Right | | | | | | PICC terminates at the | | | | | | cavoatrial junction. | | | | | | Two adjacent | | | | | | softtissue nodules are | | | | | | present in the left | | | | | | breast, the larger | | | | | | measuring1.1 cm, image | | | | | | 46. A 4-mm nodule is | | | | | | noted in the right | | | | | | thyroid lobe. | | | | | | Retrocrural node, image | | | | | | 107 has increased in | | | | | | size, measuring 1.9 x2.6 | | | | | | cm, previously measured | | | | | | 1.4 by 1.9 cm. Abdomen: | | | | | | Within the liver, near | | | | | | the segment 7-8 junction | | | | | | there is ashort | | | | | | curvilinear focus of | | | | | | parenchymal gas of | | | | | | uncertain etiology,image | | | | | | 95. Small locules of | | | | | | free air are present in | | | | | | the abdomen, inkeeping | | | | | | with recent laparoscopy. | | | | | | Gallbladder, spleen, | | | | | | kidneys,adrenal glands | | | | | | are normal. Pancreas | | | | | | is difficult to | | | | | | accuratelyevaluate | | | | | | secondary to patient | | | | | | scanning | | | | | | characteristics, as well | | | | | | asdisplacement by large | | | | | | retroperitoneal shani | | | | | | mass. Retroperitoneal | | | | | | adenopathy has | | | | | | increased/coalesced | | | | | | since the priorstudy now | | | | | | measuring 13.1 by 12.8 | | | | | | cm in aggregate, image | | | | | | 123. A discernible | | | | | | component of this | | | | | | anteriorly, image 115, | | | | | | measures 5.9 x4.2 cm, | | | | | | previously measured 5.2 | | | | | | x 3.6 cm. The adenopathy | | | | | | insinuates between | | | | | | retroperitoneal | | | | | | vasculature, withceliac | | | | | | trunk and SMA remaining | | | | | | patent. Mesenteric | | | | | | component of the | | | | | | adenopathy more | | | | | | inferiorly, image | | | | | | 174measures 11.7 x 5 .9 | | | | | | cm, previously measured | | | | | | 10.8 x 5.0 cm. Stomach, | | | | | | small bowel are normal. | | | | | | There is wall | | | | | | thickening involvingthe | | | | | | cecum and ascending | | | | | | colon to the mid | | | | | | transverse colon | | | | | | level.Descending colon | | | | | | is within normal limits. | | | | | | There is | | | | | | diffusemesenteric edema | | | | | | and small amount of | | | | | | ascites. Pelvis: The | | | | | | rectosigmoid colon is | | | | | | normal. Bladder is | | | | | | decompressed.No gross | | | | | | abnormality of the | | | | | | uterus or adnexal | | | | | | structures. Tinyamount | | | | | | of ascites tracks into | | | | | | the pelvis. | | | | | | Musculoskeletal: No | | | | | | suspicious osseous | | | | | | lesion seen.Diffuse | | | | | | anasarcais noted. | | | | | | IMPRESSION: 1. Interim | | | | | | increase in | | | | | | mediastinal, hilar, | | | | | | retroperitoneal | | | | | | andmesenteric adenopathy | | | | | | compatible with | | | | | | progression of disease. | | | | | | 2. Wall thickening of | | | | | | the cecum, ascending | | | | | | colon through the | | | | | | midtransverse colon, | | | | | | compatible with colitis, | | | | | | infectious | | | | | | orinflammatory. 3. | | | | | | Several pulmonary | | | | | | groundglass nodules, | | | | | | which may be | | | | | | old/postinflammatory, | | | | | | however may represent | | | | | | atypical infection such | | | | | | asfungal, particularly | | | | | | if the patient is | | | | | | immunocompromised. 4. | | | | | | Left breast soft | | | | | | tissue nodules may | | | | | | represent intramammary | | | | | | lymphnodes; however | | | | | | consider mammogram if | | | | | | not recently performed. | | | | | | Attending Radiologists: | | | | | | FITZ MATA, | | | | | | MDAuthor: FITZ Redding | | | | | | MD ESPERANZA I have | | | | | | personally viewed this | | | | | | procedure/exam, reviewed | | | | | | this report,and made | | | | | | changes to it where | | | | | | appropriate. | | | | | | Final/Electronically | | | | | | signed / FITZ Redding | | | | | | ESPERANZA 11/15/2011 13:20 | | | | | | PM | | | | + + + + + + + + | Specimen | + + | | + + + +---------+ + + | Performing | Address | City/State/Zipcode | Phone Number | | Organization | | | | + +---------+ + + | [facility] DEPARTMENT OF | | | | | RADIOLOGY | | | | + +---------+ + + PHOSPHORUS, PLASMA (11/14/2011 2:57 PM PST) + +-------+ + + + | Component | Value | Ref Range | Performed | Pathologist | | | | | At | Signature | + +-------+ + + + | PHOSPHORUS, | 4.0 | 2.4 - 4.7 mg/dL | [facility] | | | PLASMA | | | DEPARTMENT | | | (LAB) | | | OF | | | | | | PATHOLOGY | | + +-------+ + + + + + | Specimen | + + | Blood - Blood | + + + + + + + | Performing | Address | City/State/Zipcode | Phone Number | | Organization | | | | + + + + + | [facility] DE[facility]MENT [facility] | [address] | [place] [address] | | | PATHOLOGY | [address] | | | + + + + + LDH TOTAL, PLASMA (11/14/2011 2:57 PM PST) + +---------+ + + + | Component | Value | Ref Range | Performed | Pathologist | | | | | At | Signature | + +---------+ + + + | LD TOTAL, | 226 (H) | 110 - 205 U/L | [facility] | | | PLASMA | | | DEPARTMENT | | | | | | OF | | | | | | PATHOLOGY | | + +---------+ + + + + + | Specimen | + + | Blood - Blood | + + + + + + + | Performing | Address | City/State/Zipcode | Phone Number | | Organization | | | | + + + + + | [facility]MENT [facility] | [address] | [place] [address] | | | PATHOLOGY | [address] | | | + + + + + URIC ACID, PLASMA (11/14/2011 2:57 PM PST) + +---------+ + + + | Component | Value | Ref Range | Performed | Pathologist | | | | | At | Signature | + +---------+ + + + | URIC ACID, | 7.7 (H) | 2.5 - 6.2 mg/dL | [facility] | | | PLASMA | | | DEPARTMENT | | | (LAB) | | | OF | | | | | | PATHOLOGY | | + +---------+ + + + + + | Specimen | + + | Blood - Blood | + + + + + + + | Performing | Address | City/State/Zipcode | Phone Number | | Organization | | | | + + + + + | [facility] | [address] | [place] [address] | | | PATHOLOGY | [address] | | | + + + + + BASIC METABOLIC SET (NA, K, CL, TCO2, BUN, CR, GLU, CA) (11/14/2011 2:57 PM PST) + + + + + + | Component | Value | Ref Range | Performed | Pathologist | | | | | At | Signature | + + + + + + | GLUCOSE, | 102 (H) | 60 - 99 mg/dL | [facility] | | | PLASMA | | | DEPARTMENT | | | (LAB) | | | OF | | | | | | PATHOLOGY | | + + + + + + | BUN, PLASMA | 20 | 6 - 20 mg/dL | [facility] | | | (LAB) | | | DEPARTMENT | | | | | | OF | | | | | | PATHOLOGY | | + + + + + + | CREATININE | 1.24 (H) | 0.60 - 1.10 | [facility] | | | PLASMA | | mg/dL | DEPARTMENT | | | (LAB) | | | OF | | | | | | PATHOLOGY | | + + + + + + | SODIUM, | 134 | 134 - 143 | [facility] | | | PLASMA | | mmol/L | DEPARTMENT | | | (LAB) | | | OF | | | | | | PATHOLOGY | | + + + + + + | POTASSIUM, | 4.1 | 3.4 - 5.0 | [facility] | | | PLASMA | | mmol/L | DEPARTMENT | | | (LAB) | | | OF | | | | | | PATHOLOGY | | + + + + + + | CHLORIDE, | 100 | 97 - 108 mmol/L | [facility] | | | PLASMA | | | DEPARTMENT | | | (LAB) | | | OF | | | | | | PATHOLOGY | | + + + + + + | TOTAL CO2, | 20 (L) | 22 - 29 mmol/L | [facility] | | | PLASMA | | | DEPARTMENT | | | (LAB) | | | OF | | | | | | PATHOLOGY | | + + + + + + | CALCIUM, | 8.7 | 8.6 - 10.2 | [facility] | | | PLASMA | | mg/dL | DEPARTMENT | | | (LAB) | | | OF | | | | | | PATHOLOGY | | + + + + + + | ANION GAP | 14 (H) | 4 - 11 mmol/L | [facility] | | | | | | DEPARTMENT | | | | | | OF | | | | | | PATHOLOGY | | + + + + + + + + | Specimen | + + | Blood - Blood | + + + + + + + | Performing | Address | City/State/Zipcode | Phone Number | | Organization | | | | + + + + + | [facility] | [address] | [place] [address] | | | PATHOLOGY | [address] | | | + + + + + X-RAY PORTABLE CHEST 1 VIEW (11/14/2011 1:35 PM PST) + + + + + + | Component | Value | Ref Range | Performed | Pathologist | | | | | At | Signature | + + + + + + | X-RAY | STUDY:TX CHEST 1 VIEW | | | | | PORTABLE | 11/14/11 13:35:00 | | | | | CHEST 1 | COMPARISON:No prior | | | | | VIEW | INDICATION: New PICC | | | | | | line FINDINGS:Right arm | | | | | | PICC line has been | | | | | | placed with the tip 2 cm | | | | | | above the cavalatrial | | | | | | junction. The | | | | | | cardiomediastinal | | | | | | silhouette is normal. | | | | | | Thelungs are clear. | | | | | | There is no edema or | | | | | | pneumothorax. | | | | | | IMPRESSION: Right arm | | | | | | PICC line tip projects 2 | | | | | | cm above the cavoatrial | | | | | | junction. Clear lungs. | | | | | | Attending Radiologists: | | | | | | RENETTA HAQ M.D.Author: | | | | | | RENETTA HAQ M.D. I have | | | | | | personally viewed this | | | | | | procedure/exam, reviewed | | | | | | this report,and made | | | | | | changes to it where | | | | | | appropriate. | | | | | | Final/Electronically | | | | | | signed / RENETTA HAQ | | | | | | 11/14/2011 15:02 PM | | | | + + + + + + + + | Specimen | + + | | + + + +---------+ + + | Performing | Address | City/State/Zipcode | Phone Number | | Organization | | | | + +---------+ + + | [facility] DEPARTMENT OF | | | | | RADIOLOGY | | | | + +---------+ + + CAPILLARY BLOOD GLUCOSE, POC (11/14/2011 12:10 PM PST) + +---------+ + + + | Component | Value | Ref Range | Performed | Pathologist | | | | | At | Signature | + +---------+ + + + | BLOOD | 113 (H) | 60 - 99 mg/dL | [facility] - | | | GLUCOSE, | | | [facility] | | | POC | | | [facility] | | | | | | OF CARE | | | | | | TESTS | | + +---------+ + + + + + | Specimen | + + | | + + + + + + + | Performing | Address | City/State/Zipcode | Phone Number | | Organization | | | | + + + + + | [facility] | [address] | [place], [place] | | | [facility] | [address] | [address] | | | TESTS | | | | + + + + + PHOSPHORUS, PLASMA (11/14/2011 9:59 AM PST) + +-------+ + + + | Component | Value | Ref Range | Performed | Pathologist | | | | | At | Signature | + +-------+ + + + | PHOSPHORUS, | 3.9 | 2.4 - 4.7 mg/dL | [facility] | | | PLASMA | | | DEPARTMENT | | | (LAB) | | | OF | | | | | | PATHOLOGY | | + +-------+ + + + + + | Specimen | + + | Blood - Blood | + + + + + + + | Performing | Address | City/State/Zipcode | Phone Number | | Organization | | | | + + + + + | [facility] DE[facility]MENT | [address] | [place] [address] | | | PATHOLOGY | [address] | | | + + + + + LDH TOTAL, PLASMA (11/14/2011 9:59 AM PST) + +---------+ + + + | Component | Value | Ref Range | Performed | Pathologist | | | | | At | Signature | + +---------+ + + + | LD TOTAL, | 294 (H) | 110 - 205 U/L | [facility] | | | PLASMA | | | DEPARTMENT | | | | | | OF | | | | | | PATHOLOGY | | + +---------+ + + + + + | Specimen | + + | Blood - Blood | + + + + + + + | Performing | Address | City/State/Zipcode | Phone Number | | Organization | | | | + + + + + | [facility] | [address] | [place] [address] | | | PATHOLOGY | [address] | | | + + + + + URIC ACID, PLASMA (11/14/2011 9:59 AM PST) + +---------+ + + + | Component | Value | Ref Range | Performed | Pathologist | | | | | At | Signature | + +---------+ + + + | URIC ACID, | 8.6 (H) | 2.5 - 6.2 mg/dL | [facility] | | | PLASMA | | | DEPARTMENT | | | (LAB) | | | OF | | | | | | PATHOLOGY | | + +---------+ + + + + + | Specimen | + + | Blood - Blood | + + + + + + + | Performing | Address | City/State/Zipcode | Phone Number | | Organization | | | | + + + + + | [facility]MENT [facility] | [address] | [place] [address] | | | PATHOLOGY | [address] | | | + + + + + BASIC METABOLIC SET (NA, K, CL, TCO2, BUN, CR, GLU, CA) (11/14/2011 9:59 AM PST) + +--------+ + + + | Component | Value | Ref Range | Performed | Pathologist | | | | | At | Signature | + +--------+ + + + | GLUCOSE, | 81 | 60 - 99 mg/dL | [facility] | | | PLASMA | | | DEPARTMENT | | | (LAB) | | | OF | | | | | | PATHOLOGY | | + +--------+ + + + | BUN, PLASMA | 19 | 6 - 20 mg/dL | [facility] | | | (LAB) | | | DEPARTMENT | | | | | | OF | | | | | | PATHOLOGY | | + +--------+ + + + | CREATININE | 1.06 | 0.60 - 1.10 | [facility] | | | PLASMA | | mg/dL | DEPARTMENT | | | (LAB) | | | OF | | | | | | PATHOLOGY | | + +--------+ + + + | SODIUM, | 136 | 134 - 143 | [facility] | | | PLASMA | | mmol/L | DEPARTMENT | | | (LAB) | | | OF | | | | | | PATHOLOGY | | + +--------+ + + + | POTASSIUM, | 4.2 | 3.4 - 5.0 | [facility] | | | PLASMA | | mmol/L | DEPARTMENT | | | (LAB) | | | OF | | | | | | PATHOLOGY | | + +--------+ + + + | CHLORIDE, | 101 | 97 - 108 mmol/L | [facility] | | | PLASMA | | | DEPARTMENT | | | (LAB) | | | OF | | | | | | PATHOLOGY | | + +--------+ + + + | TOTAL CO2, | 19 (L) | 22 - 29 mmol/L | [facility] | | | PLASMA | | | DEPARTMENT | | | (LAB) | | | OF | | | | | | PATHOLOGY | | + +--------+ + + + | CALCIUM, | 8.7 | 8.6 - 10.2 | [facility] | | | PLASMA | | mg/dL | DEPARTMENT | | | (LAB) | | | OF | | | | | | PATHOLOGY | | + +--------+ + + + | ANION GAP | 16 (H) | 4 - 11 mmol/L | [facility] | | | | | | DEPARTMENT | | | | | | OF | | | | | | PATHOLOGY | | + +--------+ + + + + + | Specimen | + + | Blood - Blood | + + + + + + + | Performing | Address | City/State/Zipcode | Phone Number | | Organization | | | | + + + + + | [facility] DEPARTMENT | [address] | [place] [address] | | | PATHOLOGY | [address] | | | + + + + + CAPILLARY BLOOD GLUCOSE, POC (11/14/2011 9:35 AM PST) + +-------+ + + + | Component | Value | Ref Range | Performed | Pathologist | | | | | At | Signature | + +-------+ + + + | BLOOD | 83 | 60 - 99 mg/dL | [facility] - | | | GLUCOSE, | | | [facility] | | | POC | | | [facility] | | | | | | OF CARE | | | | | | TESTS | | + +-------+ + + + + + | Specimen | + + | | + + + + + + + | Performing | Address | City/State/Zipcode | Phone Number | | Organization | | | | + + + + + | [facility] | [address] | [place], [place] | | | [facility] | [address] | [address] | | | TESTS | | | | + + + + + DIFFERENTIAL (11/14/2011 6:38 AM PST) + +--------+ + + + | Component | Value | Ref Range | Performed | Pathologist | | | | | At | Signature | + +--------+ + + + | NEUTROPHIL | 73 (H) | 50 - 70 % | [facility] | | | % | | | DEPARTMENT | | | | | | OF | | | | | | PATHOLOGY | | + +--------+ + + + | LYMPHOCYTE | 17 (L) | 18 - 42 % | [facility] | | | % | | | DEPARTMENT | | | | | | OF | | | | | | PATHOLOGY | | + +--------+ + + + | MONOCYTE % | 7 | 2 - 8 % | [facility] | | | | | | DEPARTMENT | | | | | | OF | | | | | | PATHOLOGY | | + +--------+ + + + | EOS % | 2 | 1 - 3 % | [facility] | | | | | | DEPARTMENT | | | | | | OF | | | | | | PATHOLOGY | | + +--------+ + + + | BASO % | 0 | <3 % | [facility] | | | | | | DEPARTMENT | | | | | | OF | | | | | | PATHOLOGY | | + +--------+ + + + | NEUTROPHIL | 5.8 | 1.8 - 7.7 K/cu | [facility] | | | # | | mm | DEPARTMENT | | | | | | OF | | | | | | PATHOLOGY | | + +--------+ + + + | LYMPHOCYTE | 1.3 | 1.0 - 4.8 K/cu | [facility] | | | # | | mm | DEPARTMENT | | | | | | OF | | | | | | PATHOLOGY | | + +--------+ + + + | MONOCYTE # | 0.5 | <0.9 K/cu mm | [facility] | | | | | | DEPARTMENT | | | | | | OF | | | | | | PATHOLOGY | | + +--------+ + + + | EOS # | 0.2 | <0.6 K/cu mm | [facility] | | | | | | DEPARTMENT | | | | | | OF | | | | | | PATHOLOGY | | + +--------+ + + + | BASO # | 0.0 | <0.3 | [facility] | | | | | | DEPARTMENT | | | | | | OF | | | | | | PATHOLOGY | | + +--------+ + + + + + | Specimen | + + | | + + + + + + + | Performing | Address | City/State/Zipcode | Phone Number | | Organization | | | | + + + + + | [facility] | [address] | [place] [address] | | | PATHOLOGY | [address] | | | + + + + + CBC, WITH DIFFERENTIAL (11/14/2011 6:38 AM PST) + + + + + + | Component | Value | Ref Range | Performed | Pathologist | | | | | At | Signature | + + + + + + | WHITE CELL | 7.9 | 4.4 - 11.0 K/cu | [facility] | | | COUNT | | mm | DEPARTMENT | | | | | | OF | | | | | | PATHOLOGY | | + + + + + + | RED CELL | 3.78 (L) | 4.00 - 5.20 | [facility] | | | COUNT | | M/cu mm | DEPARTMENT | | | | | | OF | | | | | | PATHOLOGY | | + + + + + + | HEMOGLOBIN | 10.6 (L) | 12.0 - 16.0 | [facility] | | | | | g/dL | DEPARTMENT | | | | | | OF | | | | | | PATHOLOGY | | + + + + + + | HEMATOCRIT | 30.8 (L) | 36.0 - 46.0 % | [facility] | | | | | | DEPARTMENT | | | | | | OF | | | | | | PATHOLOGY | | + + + + + + | MCV | 81.3 | 80.0 - 96.0 fL | [facility] | | | | | | DEPARTMENT | | | | | | OF | | | | | | PATHOLOGY | | + + + + + + | MCHC | 34.4 | 33.4 - 35.5 | [facility] | | | | | g/dL | DEPARTMENT | | | | | | OF | | | | | | PATHOLOGY | | + + + + + + | RDW | 14.3 | 11.5 - 15.0 % | [facility] | | | | | | DEPARTMENT | | | | | | OF | | | | | | PATHOLOGY | | + + + + + + | PLATELET | 413 (H) | 150 - 400 K/cu | [facility] | | | COUNT | | mm | DEPARTMENT | | | | | | OF | | | | | | PATHOLOGY | | + + + + + + + + | Specimen | + + | Blood - Blood | + + + + + + + | Performing | Address | City/State/Zipcode | Phone Number | | Organization | | | | + + + + + | [facility] | [address] | [place] [address] | | | PATHOLOGY | [address] | | | + + + + + PHOSPHORUS, PLASMA (11/14/2011 6:38 AM PST) + + + + + + | Component | Value | Ref Range | Performed | Pathologist | | | | | At | Signature | + + + + + + | PHOSPHORUS, | Not Recd | 2.4 - 4.7 mg/dL | [facility] | | | PLASMA | | | DEPARTMENT | | | (LAB) | | | OF | | | | | | PATHOLOGY | | + + + + + + + + | Specimen | + + | Blood - Blood | + + + + + + + | Performing | Address | City/State/Zipcode | Phone Number | | Organization | | | | + + + + + | [facility]MENT [facility] | [address] | [place] [address] | | | PATHOLOGY | [address] | | | + + + + + MAGNESIUM, PLASMA (11/14/2011 6:38 AM PST) + + + + + + | Component | Value | Ref Range | Performed | Pathologist | | | | | At | Signature | + + + + + + | MAGNESIUM,P | Not Recd | 1.8 - 2.5 mg/dL | [facility] | | | LASMA | | | DEPARTMENT | | | | | | OF | | | | | | PATHOLOGY | | + + + + + + + + | Specimen | + + | Blood - Blood | + + + + + + + | Performing | Address | City/State/Zipcode | Phone Number | | Organization | | | | + + + + + | [facility] DEPARTMENT OF | [address] | [place] [address] | | | PATHOLOGY | [address] | | | + + + + + COMPLETE METABOLIC SET (NA,K,CL,CO2,BUN,CREAT,GLUC,CA,AST,ALT,BILI TOTAL,ALK PHOS,ALB,PROT TOTAL) (11/14/2011 6:38 AM PST) + + + + + + | Component | Value | Ref Range | Performed | Pathologist | | | | | At | Signature | + + + + + + | GLUCOSE, | Not Recd | 60 - 99 mg/dL | [facility] | | | PLASMA | | | DEPARTMENT | | | (LAB) | | | OF | | | | | | PATHOLOGY | | + + + + + + | BUN, PLASMA | Not Recd | 6 - 20 mg/dL | [facility] | | | (LAB) | | | DEPARTMENT | | | | | | OF | | | | | | PATHOLOGY | | + + + + + + | CREATININE | Not Recd | 0.60 - 1.10 | [facility] | | | PLASMA | | mg/dL | DEPARTMENT | | | (LAB) | | | OF | | | | | | PATHOLOGY | | + + + + + + | TOTAL | Not Recd | 6.1 - 7.9 g/dL | [facility] | | | PROTEIN, | | | DEPARTMENT | | | PLASMA | | | OF | | | (LAB) | | | PATHOLOGY | | + + + + + + | ALBUMIN, | Not Recd | 3.5 - 4.7 g/dL | [facility] | | | PLASMA | | | DEPARTMENT | | | (LAB) | | | OF | | | | | | PATHOLOGY | | + + + + + + | CALCIUM, | Not Recd | 8.6 - 10.2 | [facility] | | | PLASMA | | mg/dL | DEPARTMENT | | | (LAB) | | | OF | | | | | | PATHOLOGY | | + + + + + + | BILIRUBIN | Not Recd | 0.3 - 1.2 mg/dL | [facility] | | | TOTAL | | | DEPARTMENT | | | | | | OF | | | | | | PATHOLOGY | | + + + + + + | ALK PHOS | Not Recd | 42 - 98 U/L | [facility] | | | | | | DEPARTMENT | | | | | | OF | | | | | | PATHOLOGY | | + + + + + + | AST(SGOT) | Not Recd | 15 - 41 U/L | [facility] | | | | | | DEPARTMENT | | | | | | OF | | | | | | PATHOLOGY | | + + + + + + | SODIUM, | Not Recd | 134 - 143 | [facility] | | | PLASMA | | mmol/L | DEPARTMENT | | | (LAB) | | | OF | | | | | | PATHOLOGY | | + + + + + + | POTASSIUM, | Not Recd | 3.4 - 5.0 | [facility] | | | PLASMA | | mmol/L | DEPARTMENT | | | (LAB) | | | OF | | | | | | PATHOLOGY | | + + + + + + | CHLORIDE, | Not Recd | 97 - 108 mmol/L | [facility] | | | PLASMA | | | DEPARTMENT | | | (LAB) | | | OF | | | | | | PATHOLOGY | | + + + + + + | TOTAL CO2, | Not Recd | 22 - 29 mmol/L | [facility] | | | PLASMA | | | DEPARTMENT | | | (LAB) | | | OF | | | | | | PATHOLOGY | | + + + + + + | ALT (SGPT) | Not Recd | 13 - 48 U/L | [facility] | | | | | | DEPARTMENT | | | | | | OF | | | | | | PATHOLOGY | | + + + + + + + + | Specimen | + + | Blood - Blood | + + + + + + + | Performing | Address | City/State/Zipcode | Phone Number | | Organization | | | | + + + + + | [facility] DEPARTMENT OF | [phone] | [place] [address] | | | PATHOLOGY | [address] | | | + + + + + PHOSPHORUS, PLASMA (11/14/2011 6:38 AM PST) + +-------+ + + + | Component | Value | Ref Range | Performed | Pathologist | | | | | At | Signature | + +-------+ + + + | PHOSPHORUS, | 4.1 | 2.4 - 4.7 mg/dL | [facility] | | | PLASMA | | | DEPARTMENT | | | (LAB) | | | OF | | | | | | PATHOLOGY | | + +-------+ + + + + + | Specimen | + + | Blood - Blood | + + + + + + + | Performing | Address | City/State/Zipcode | Phone Number | | Organization | | | | + + + + + | [facility] | [phone] | [place] [address] | | | PATHOLOGY | [address] | | | + + + + + HEMOGLOBIN A1C, BLOOD (11/14/2011 6:38 AM PST) + +---------+ + + + | Component | Value | Ref Range | Performed | Pathologist | | | | | At | Signature | + +---------+ + + + | HEMOGLOBIN | 6.4 (H) | <5.7 % | [facility] | | | A1C | | | REGIONAL | | | | | | LABORATORY | | + +---------+ + + + + + | Specimen | + + | Blood - Blood | + + + + + | Narrative | Performed At | + + + | HbA1c Interpretive Information If you are screening for | [facility] | | diabetes: <5.7 Non-diabetic 5.7-6.4 | REGIONAL | | Prediabetes >6.4 Diabetes, if confirmed For | LABORATORY | | monitoring of diabetes control: <7.0 Usual goal of | | | treatment; low risk for complications 7.0-8.0 Some | | | increased risk for long-term complications >8.0 | | | Higher risk of complications; strongly consider | | | intensifying therapy [facility] ([facility]) | | | [facility] [address] | | | [place] [address] | | + + + + + + + + | Performing | Address | City/State/Zipcode | Phone Number | | Organization | | | | + + + + + | [facility] | [address] | [place] [address] | | | LABORATORY | | | | + + + + + LDH TOTAL, PLASMA (11/14/2011 6:38 AM PST) + +---------+ + + + | Component | Value | Ref Range | Performed | Pathologist | | | | | At | Signature | + +---------+ + + + | LD TOTAL, | 229 (H) | 110 - 205 U/L | [facility] | | | PLASMA | | | DEPARTMENT | | | | | | OF | | | | | | PATHOLOGY | | + +---------+ + + + + + | Specimen | + + | Blood - Blood | + + + + + + + | Performing | Address | City/State/Zipcode | Phone Number | | Organization | | | | + + + + + | [facility] | [address] | [place] [address] | | | PATHOLOGY | [address] | | | + + + + + URIC ACID, PLASMA (11/14/2011 6:38 AM PST) + +---------+ + + + | Component | Value | Ref Range | Performed | Pathologist | | | | | At | Signature | + +---------+ + + + | URIC ACID, | 9.1 (H) | 2.5 - 6.2 mg/dL | [facility] | | | PLASMA | | | DEPARTMENT | | | (LAB) | | | OF | | | | | | PATHOLOGY | | + +---------+ + + + + + | Specimen | + + | Blood - Blood | + + + + + + + | Performing | Address | City/State/Zipcode | Phone Number | | Organization | | | | + + + + + | [facility] DEPARTMENT OF | [address] | [place] [address] | | | PATHOLOGY | [address] | | | + + + + + BASIC METABOLIC SET (NA, K, CL, TCO2, BUN, CR, GLU, CA) (11/14/2011 6:38 AM PST) + +--------+ + + + | Component | Value | Ref Range | Performed | Pathologist | | | | | At | Signature | + +--------+ + + + | GLUCOSE, | 88 | 60 - 99 mg/dL | [facility] | | | PLASMA | | | DEPARTMENT | | | (LAB) | | | OF | | | | | | PATHOLOGY | | + +--------+ + + + | BUN, PLASMA | 20 | 6 - 20 mg/dL | [facility] | | | (LAB) | | | DEPARTMENT | | | | | | OF | | | | | | PATHOLOGY | | + +--------+ + + + | CREATININE | 1.02 | 0.60 - 1.10 | [facility] | | | PLASMA | | mg/dL | DEPARTMENT | | | (LAB) | | | OF | | | | | | PATHOLOGY | | + +--------+ + + + | SODIUM, | 136 | 134 - 143 | [facility] | | | PLASMA | | mmol/L | DEPARTMENT | | | (LAB) | | | OF | | | | | | PATHOLOGY | | + +--------+ + + + | POTASSIUM, | 4.1 | 3.4 - 5.0 | [facility] | | | PLASMA | | mmol/L | DEPARTMENT | | | (LAB) | | | OF | | | | | | PATHOLOGY | | + +--------+ + + + | CHLORIDE, | 102 | 97 - 108 mmol/L | [facility] | | | PLASMA | | | DEPARTMENT | | | (LAB) | | | OF | | | | | | PATHOLOGY | | + +--------+ + + + | TOTAL CO2, | 22 | 22 - 29 mmol/L | [facility] | | | PLASMA | | | DEPARTMENT | | | (LAB) | | | OF | | | | | | PATHOLOGY | | + +--------+ + + + | CALCIUM, | 8.8 | 8.6 - 10.2 | [facility] | | | PLASMA | | mg/dL | DEPARTMENT | | | (LAB) | | | OF | | | | | | PATHOLOGY | | + +--------+ + + + | ANION GAP | 12 (H) | 4 - 11 mmol/L | [facility] | | | | | | DEPARTMENT | | | | | | OF | | | | | | PATHOLOGY | | + +--------+ + + + + + | Specimen | + + | Blood - Blood | + + + + + + + | Performing | Address | City/State/Zipcode | Phone Number | | Organization | | | | + + + + + | [facility] DEPARTMENT | [address] | [place] [address] | | | PATHOLOGY | [address] | | | + + + + + CAPILLARY BLOOD GLUCOSE, POC (11/14/2011 1:19 AM PST) + +-------+ + + + | Component | Value | Ref Range | Performed | Pathologist | | | | | At | Signature | + +-------+ + + + | BLOOD | 97 | 60 - 99 mg/dL | [facility] - | | | GLUCOSE, | | | [place] | | | POC | | | [facility] | | | | | | OF CARE | | | | | | TESTS | | + +-------+ + + + + + | Specimen | + + | | + + + + + + + | Performing | Address | City/State/Zipcode | Phone Number | | Organization | | | | + + + + + | [facility] | [address] | [place], [place] | | | [facility] [place] | [facility] | [address] | | | TESTS | | | | + + + + + CAPILLARY BLOOD GLUCOSE, POC (11/14/2011 12:11 AM PST) + +-------+ + + + | Component | Value | Ref Range | Performed | Pathologist | | | | | At | Signature | + +-------+ + + + | BLOOD | 78 | 60 - 99 mg/dL | [facility] - | | | GLUCOSE, | | | [facility] | | | POC | | | [facility] | | | | | | OF CARE | | | | | | TESTS | | + +-------+ + + + + + | Specimen | + + | | + + + + + + + | Performing | Address | City/State/Zipcode | Phone Number | | Organization | | | | + + + + + | [facility] | [address] | [place], [place] | | | [facility] | [address] | [address] | | | TESTS | | | | + + + + + CAPILLARY BLOOD GLUCOSE, POC (11/13/2011 10:04 PM PST) + +-------+ + + + | Component | Value | Ref Range | Performed | Pathologist | | | | | At | Signature | + +-------+ + + + | BLOOD | 73 | 60 - 99 mg/dL | [facility] | | | GLUCOSE, | | | [place] | | | POC | | | [facility] | | | | | | OF CARE | | | | | | TESTS | | + +-------+ + + + + + | Specimen | + + | | + + + + + + + | Performing | Address | City/State/Zipcode | Phone Number | | Organization | | | | + + + + + | [facility] | [address] | [place], [place] | | | [facility] | [address] | [address] | | | TESTS | | | | + + + + + CAPILLARY BLOOD GLUCOSE, POC (11/13/2011 9:31 PM PST) + +-------+ + + + | Component | Value | Ref Range | Performed | Pathologist | | | | | At | Signature | + +-------+ + + + | BLOOD | 67 | 60 - 99 mg/dL | [facility] - | | | GLUCOSE, | | | [facility] | | | POC | | | [facility] | | | | | | OF CARE | | | | | | TESTS | | + +-------+ + + + + + | Specimen | + + | | + + + + + + + | Performing | Address | City/State/Zipcode | Phone Number | | Organization | | | | + + + + + | [facility] | [address] | [place], [place] | | | [facility] | [address] | [address] | | | TESTS | | | | + + + + + PHOSPHORUS, PLASMA (11/13/2011 8:10 PM PST) + +-------+ + + + | Component | Value | Ref Range | Performed | Pathologist | | | | | At | Signature | + +-------+ + + + | PHOSPHORUS, | 4.4 | 2.4 - 4.7 mg/dL | [facility] | | | PLASMA | | | DEPARTMENT | | | (LAB) | | | OF | | | | | | PATHOLOGY | | + +-------+ + + + + + | Specimen | + + | Blood - Blood | + + + + + + + | Performing | Address | City/State/Zipcode | Phone Number | | Organization | | | | + + + + + | [facility] | [address] | [place] [address] | | | PATHOLOGY | [address] | | | + + + + + LDH TOTAL, PLASMA (11/13/2011 8:10 PM PST) + +---------+ + + + | Component | Value | Ref Range | Performed | Pathologist | | | | | At | Signature | + +---------+ + + + | LD TOTAL, | 228 (H) | 110 - 205 U/L | [facility] | | | PLASMA | | | DEPARTMENT | | | | | | OF | | | | | | PATHOLOGY | | + +---------+ + + + + + | Specimen | + + | Blood - Blood | + + + + + + + | Performing | Address | City/State/Zipcode | Phone Number | | Organization | | | | + + + + + | [facility] DEPARTMENT [facility] | [address] | [place] [address] | | | PATHOLOGY | [address] | | | + + + + + URIC ACID, PLASMA (11/13/2011 8:10 PM PST) + + + + + + | Component | Value | Ref Range | Performed | Pathologist | | | | | At | Signature | + + + + + + | URIC ACID, | 11.8 (H) | 2.5 - 6.2 mg/dL | [facility] | | | PLASMA | | | DEPARTMENT | | | (LAB) | | | OF | | | | | | PATHOLOGY | | + + + + + + + + | Specimen | + + | Blood - Blood | + + + + + + + | Performing | Address | City/State/Zipcode | Phone Number | | Organization | | | | + + + + + | [facility] DEPARTMENT OF | [address] | [place] [address] | | | PATHOLOGY | [address] | | | + + + + + BASIC METABOLIC SET (NA, K, CL, TCO2, BUN, CR, GLU, CA) (11/13/2011 8:10 PM PST) + + + + + + | Component | Value | Ref Range | Performed | Pathologist | | | | | At | Signature | + + + + + + | GLUCOSE, | 74 | 60 - 99 mg/dL | [facility] | | | PLASMA | | | DEPARTMENT | | | (LAB) | | | OF | | | | | | PATHOLOGY | | + + + + + + | BUN, PLASMA | 20 | 6 - 20 mg/dL | [facility] | | | (LAB) | | | DEPARTMENT | | | | | | OF | | | | | | PATHOLOGY | | + + + + + + | CREATININE | 1.41 (H) | 0.60 - 1.10 | [facility] | | | PLASMA | | mg/dL | DEPARTMENT | | | (LAB) | | | OF | | | | | | PATHOLOGY | | + + + + + + | SODIUM, | 135 | 134 - 143 | [facility] | | | PLASMA | | mmol/L | DEPARTMENT | | | (LAB) | | | OF | | | | | | PATHOLOGY | | + + + + + + | POTASSIUM, | 3.9 | 3.4 - 5.0 | [facility] | | | PLASMA | | mmol/L | DEPARTMENT | | | (LAB) | | | OF | | | | | | PATHOLOGY | | + + + + + + | CHLORIDE, | 96 (L) | 97 - 108 mmol/L | [facility] | | | PLASMA | | | DEPARTMENT | | | (LAB) | | | OF | | | | | | PATHOLOGY | | + + + + + + | TOTAL CO2, | 26 | 22 - 29 mmol/L | [facility] | | | PLASMA | | | DEPARTMENT | | | (LAB) | | | OF | | | | | | PATHOLOGY | | + + + + + + | CALCIUM, | 9.1 | 8.6 - 10.2 | [facility] | | | PLASMA | | mg/dL | DEPARTMENT | | | (LAB) | | | OF | | | | | | PATHOLOGY | | + + + + + + | ANION GAP | 13 (H) | 4 - 11 mmol/L | [facility] | | | | | | DEPARTMENT | | | | | | OF | | | | | | PATHOLOGY | | + + + + + + + + | Specimen | + + | Blood - Blood | + + + + + + + | Performing | Address | City/State/Zipcode | Phone Number | | Organization | | | | + + + + + | [facility] | [address] | [place] [address] | | | PATHOLOGY | [address] | | | + + + + + INR (11/13/2011 8:10 PM PST) + + + + + + | Component | Value | Ref Range | Performed | Pathologist | | | | | At | Signature | + + + + + + | INR | 1.16Comment: | 0.90 - 1.20 INR | [facility] | | | | INR Therapeutic ranges | | DEPARTMENT | | | | for full | | OF | | | | anticoagulation: | | PATHOLOGY | | | | INR for Venous | | | | | | Thromboembolism | | | | | | (2.0-3.0) | | | | | | INR INR for most | | | | | | patients with mech. | | | | | | valves (2.5-3.5) | | | | | | INR | | | | + + + + + + + + | Specimen | + + | Blood - Blood | + + + + + + + | Performing | Address | City/State/Zipcode | Phone Number | | Organization | | | | + + + + + | [facility] DEPARTMENT | [address] | [place] [address] | | | PATHOLOGY | [address] | | | + + + + + CAPILLARY BLOOD GLUCOSE, POC (11/13/2011 7:20 PM PST) + +-------+ + + + | Component | Value | Ref Range | Performed | Pathologist | | | | | At | Signature | + +-------+ + + + | BLOOD | 78 | 60 - 99 mg/dL | [facility] - | | | GLUCOSE, | | | [place] | | | POC | | | [facility] | | | | | | OF CARE | | | | | | TESTS | | + +-------+ + + + + + | Specimen | + + | | + + + + + + + | Performing | Address | City/State/Zipcode | Phone Number | | Organization | | | | + + + + + | [facility] | [address] | [place], [place] | | | [facility] [place] | [address] | [address] | | | TESTS | | | | + + + + + CAPILLARY BLOOD GLUCOSE, POC (11/13/2011 7:02 PM PST) + +-------+ + + + | Component | Value | Ref Range | Performed | Pathologist | | | | | At | Signature | + +-------+ + + + | BLOOD | 72 | 60 - 99 mg/dL | [facility] - | | | GLUCOSE, | | | [facility] | | | POC | | | [facility] | | | | | | OF CARE | | | | | | TESTS | | + +-------+ + + + + + | Specimen | + + | | + + + + + + + | Performing | Address | City/State/Zipcode | Phone Number | | Organization | | | | + + + + + | [facility] | [address] | [place], [place] | | | [facility] [place] | [facility] | [address] | | | TESTS | | | | + + + + + CAPILLARY BLOOD GLUCOSE, POC (11/13/2011 6:47 PM PST) + +-------+ + + + | Component | Value | Ref Range | Performed | Pathologist | | | | | At | Signature | + +-------+ + + + | BLOOD | 75 | 60 - 99 mg/dL | [facility] - | | | GLUCOSE, | | | [facility] | | | POC | | | [facility] | | | | | | OF CARE | | | | | | TESTS | | + +-------+ + + + + + | Specimen | + + | | + + + + + + + | Performing | Address | City/State/Zipcode | Phone Number | | Organization | | | | + + + + + | [facility] | [address] | [place], [place] | | | [facility] | [address] | [phone] | | | TESTS | | | | + + + + + VRE (KTALYN) BY PCR (11/13/2011 6:29 PM PST) + + + + + + | Component | Value | Ref Range | Performed | Pathologist | | | | | At | Signature | + + + + + + | VRE BY PCR | Negative for Katlyn gene | | [facility] | | | | VRE | | DEPARTMENT | | | | | | OF | | | | | | PATHOLOGY | | + + + + + + + + | Specimen | + + | Swab - Rectum | + + + + + + + | Performing | Address | City/State/Zipcode | Phone Number | | Organization | | | | + + + + + | [facility] DEPARTMENT | [address] | [place] [address] | | | PATHOLOGY | [address] | | | + + + + + CAPILLARY BLOOD GLUCOSE, POC (11/13/2011 6:21 PM PST) + +-------+ + + + | Component | Value | Ref Range | Performed | Pathologist | | | | | At | Signature | + +-------+ + + + | BLOOD | 62 | 60 - 99 mg/dL | [facility] - | | | GLUCOSE, | | | [place] | | | POC | | | [facility] | | | | | | OF CARE | | | | | | TESTS | | + +-------+ + + + + + | Specimen | + + | | + + + + + + + | Performing | Address | City/State/Zipcode | Phone Number | | Organization | | | | + + + + + | [facility] | [address] | [place], [place] | | | [facility] [place] | [facility] | [address] | | | TESTS | | | | + + + + + documented in this encounter Visit Diagnoses + + | Diagnosis | + + | Burkitt's lymphoma (HCC) - Primary Burkitt's tumor or lymphoma, unspecified site, | | extranodal and solid organ sites | + + documented in this encounter Administered Medications + +--------+ +--------+------+------+ | Medication Order | MAR | Action | Dose | Rate | Site | | | Action | Date | | | | + +--------+ +--------+------+------+ | acetaminophen (aka TYLENOL) | Given | 11/17/19 | 650 mg | | | | tablet 325-650 mg 325-650 mg, | | 12 3:52 | | | | | oral, EVERY 4 HOURS NEEDED, | | AM PST | | | | | Starting 11/13/11 at 1806, | | | | | | | Until 12/06/11 at 2315, mild | | | | | | | pain, fever, blood product | | | | | | | premedication | | | | | | + +--------+ +--------+------+------+ +---+---+ | | | +---+---+ + +-------+ +--------+---+---+ | acetaminophen (aka TYLENOL) | Given | 11/18/19 | 650 mg | | | | tablet 650 mg 650 mg, oral, | | 12 3:36 | | | | | ONCE, 1 dose, 11/18/11 at 1600 | | PM PST | | | | + +-------+ +--------+---+---+ +---+---+ | | | +---+---+ + +-------+ +--------+---+---+ | acetaminophen (aka TYLENOL) | Given | 12/02/19 | 650 mg | | | | tablet 650 mg 650 mg, oral, | | 12 2:34 | | | | | ONCE, 1 dose, 12/02/11 at 1400 | | PM PST | | | | + +-------+ +--------+---+---+ +---+---+ | | | +---+---+ + +-------+ +--------+---+---+ | acyclovir (aka ZOVIRAX) tablet | Given | 11/15/19 | 800 mg | | | | 800 mg 800 mg, oral, DAILY, | | 12 8:56 | | | | | First dose on 11/14/11 at | | AM PST | | | | | 0900, Until Discontinued | | | | | | + +-------+ +--------+---+---+ +-------+ +--------+---+---+ | Given | 11/14/19 | 800 mg | | | | | 12 9:36 | | | | | | AM PST | | | | +-------+ +--------+---+---+ +---+---+ | | | +---+---+ + +-------+ +--------+---+---+ | acyclovir (aka ZOVIRAX) tablet | Given | 12/06/19 | 800 mg | | | | 800 mg 800 mg, oral, DAILY, | | 12 8:08 | | | | | First dose on Karo 11/19/11 at | | AM PST | | | | | 0900, Until Discontinued | | | | | | + +-------+ +--------+---+---+ +-------+ +--------+---+---+ | Given | 12/05/19 | 800 mg | | | | | 12 9:41 | | | | | | AM PST | | | | +-------+ +--------+---+---+ | Given | 12/04/19 | 800 mg | | | | | 12 8:14 | | | | | | AM PST | | | | +-------+ +--------+---+---+ +---+---+ | | | +---+---+ + +-------+ +--------+---+---+ | allopurinol (aka ZYLOPRIM) | Given | 11/20/19 | 300 mg | | | | tablet 300 mg 300 mg, oral, | | 12 9:19 | | | | | DAILY, First dose on 11/14/11 | | AM PST | | | | | at 0900, Until Discontinued | | | | | | + +-------+ +--------+---+---+ +-------+ +--------+---+---+ | Given | 11/19/19 | 300 mg | | | | | 12 8:39 | | | | | | AM PST | | | | +-------+ +--------+---+---+ | Given | 11/18/19 | 300 mg | | | | | 12 7:54 | | | | | | AM PST | | | | +-------+ +--------+---+---+ +---+---+ | | | +---+---+ + +-------+ +--------+---+---+ | allopurinol (aka ZYLOPRIM) | Given | 11/13/19 | 600 mg | | | | tablet 600 mg 600 mg, oral, | | 12 8:00 | | | | | ONCE, 1 dose, 11/13/11 at 1815 | | PM PST | | | | + +-------+ +--------+---+---+ +---+---+ | | | +---+---+ + +-------+ +-------+---+---+ | aluminum-magnesium | Given | 11/26/19 | 15 mL | | | | hydroxide-simethicone (aka | | 12 5:41 | | | | | MAALOX; MYLANTA) 200-200-20 mg/5 | | AM PST | | | | | mL suspension 30 mL 30 mL, oral, | | | | | | | EVERY 3 HOURS NEEDED, | | | | | | | Starting 11/13/11 at 1806, | | | | | | | Until 12/06/11 at 2315, | | | | | | | gastrointestinal upset | | | | | | + +-------+ +-------+---+---+ +-------+ +-------+---+---+ | Given | 11/24/19 | 30 mL | | | | | 12 11:36 | | | | | | PM PST | | | | +-------+ +-------+---+---+ | Given | 11/24/19 | 30 mL | | | | | 12 8:59 | | | | | | PM PST | | | | +-------+ +-------+---+---+ +---+---+ | | | +---+---+ + +---------+ +---+-------+---+ | cyclophosphamide (aka CYTOXAN) | New Bag | 11/18/19 | | 280 | | | 600 mg in NaCl 0.9 % IV | | 12 5:45 | | mL/hr | | | intravenous, Administer over 60 | | AM PST | | | | | Minutes, EVERY 12 HOURS, 6 doses, | | | | | | | First dose on Wed11/15/11 at | | | | | | | 1700, Last dose on Wed11/18/11 at | | | | | | | 0500, HIGH RISK | | | | | | | MEDICATION-CHEMOTHERAPY | | | | | | | Irritant. Administer Q12H x 6 | | | | | | | doses. Mesna and Cyclophosphamide | | | | | | | can infuse through same side of | | | | | | | catheter. Per [employer] | | | | | | | authorization, dose | | | | | | | standardization has been approved | | | | | | | for this order. Dose changed | | | | | | | from 597 mg (= 300 mg/m2/dose) to | | | | | | | 600 mg , | | | | | | + +---------+ +---+-------+---+ +---------+ +---+-------+---+ | New Bag | 11/17/19 | | 280 | | | | 12 5:12 | | mL/hr | | | | PM PST | | | | +---------+ +---+-------+---+ | New Bag | 11/17/19 | | 280 | | | | 12 5:02 | | mL/hr | | | | AM PST | | | | +---------+ +---+-------+---+ +---+---+ | | | +---+---+ + +-------+ +---+---+---+ | cytarabine (aka CYTOSAR) 100 mg | Given | 12/03/19 | | | | | in NaCl (PF) 0.9 % injection | | 12 12:08 | | | | | intrathecal, ONCE, 1 dose, Karo | | PM PST | | | | | 12/03/11 at 1200, HIGH RISK | | | | | | | MEDICATION-CHEMOTHERAPY FOR | | | | | | | INTRATHECAL USE ONLY; EXPIRATION | | | | | | | 24 HOURS., | | | | | | + +-------+ +---+---+---+ +---+---+ | | | +---+---+ + +---------+ + +---------+---+ | cytarabine (aka CYTOSAR) 5,800 | New Bag | 12/05/19 | 5,800 mg | 102.67 | | | mg in NaCl 0.9 % IV 5,800 mg, | | 12 3:57 | | mL/hr | | | intravenous, Administer over 3 | | PM PST | | | | | Hours, EVERY 12 HOURS, 4 doses, | | | | | | | First dose on Karo 12/03/11 at 2200, | | | | | | | Last dose on 12/05/11 at 1500, | | | | | | | HIGH RISK | | | | | | | MEDICATION-CHEMOTHERAPY | | | | | | | Administer IVPB every 12 hours on | | | | | | | days 2 and 3. Begin after | | | | | | | completion of Methotrexate. | | | | | | | Prior to each dose of Cytarabine | | | | | | | please assess neuro status for | | | | | | | changes. Call treatment team if | | | | | | | patient has ataxia, slurred | | | | | | | speech, lack of eye movement | | | | | | | control (nystagmus) or inability | | | | | | | to perform fine motor control | | | | | | | movements (heel to johnson, rapid | | | | | | | finger movements, etc). Per [employer] | | | | | | | Committee authorization, dose | | | | | | | standardization has been approved | | | | | | | for this order. Dose changed | | | | | | | from 5820 mg (= 3000 mg/m2/dose) | | | | | | | to 5800 mg., | | | | | | + +---------+ + +---------+---+ +---------+ + +---------+---+ | New Bag | 12/05/19 | 5,800 mg | 102.67 | | | | 12 2:47 | | mL/hr | | | | AM PST | | | | +---------+ + +---------+---+ | New Bag | 12/04/19 | 5,800 mg | 102.67 | | | | 12 3:10 | | mL/hr | | | | PM PST | | | | +---------+ + +---------+---+ +---+---+ | | | +---+---+ + +-------+ +-------+---+---+ | dexamethasone (aka DECADRON) | Given | 11/15/19 | 20 mg | | | | tablet 20 mg 20 mg, oral, TWICE | | 12 8:55 | | | | | DAILY, First dose on 11/14/11 | | AM PST | | | | | at 1215, Until Discontinued | | | | | | + +-------+ +-------+---+---+ +-------+ +-------+---+---+ | Given | 11/14/19 | 20 mg | | | | | 12 9:29 | | | | | | PM PST | | | | +-------+ +-------+---+---+ | Given | 11/14/19 | 20 mg | | | | | 12 1:41 | | | | | | PM PST | | | | +-------+ +-------+---+---+ +---+---+ | | | +---+---+ + +-------+ +-------+---+---+ | dexamethasone (aka DECADRON) | Given | 12/05/19 | 20 mg | | | | tablet 20 mg 20 mg, oral, EVERY | | 12 1:46 | | | | | 24 HOURS, 3 doses, First dose on | | AM PST | | | | | 12/02/11 at 1400, Last dose on | | | | | | | 12/05/11 at 0100 | | | | | | + +-------+ +-------+---+---+ +-------+ +-------+---+---+ | Given | 12/03/19 | 20 mg | | | | | 12 8:49 | | | | | | PM PST | | | | +-------+ +-------+---+---+ | Given | 12/02/19 | 20 mg | | | | | 12 2:34 | | | | | | PM PST | | | | +-------+ +-------+---+---+ +---+---+ | | | +---+---+ + +-------+ +-------+---+---+ | dexamethasone (aka DECADRON) | Given | 11/18/19 | 40 mg | | | | tablet 40 mg 40 mg, oral, EVERY | | 12 3:37 | | | | | 24 HOURS, 4 doses, First dose on | | PM PST | | | | | 11/15/11 at 1600, Last dose on | | | | | | | 11/18/11 at 1500 | | | | | | + +-------+ +-------+---+---+ +-------+ +-------+---+---+ | Given | 11/17/19 | 40 mg | | | | | 12 4:10 | | | | | | PM PST | | | | +-------+ +-------+---+---+ | Given | 11/16/19 | 40 mg | | | | | 12 4:03 | | | | | | PM PST | | | | +-------+ +-------+---+---+ +---+---+ | | | +---+---+ + +-------+ +-------+---+---+ | dexamethasone (aka DECADRON) | Given | 11/28/19 | 40 mg | | | | tablet 40 mg 40 mg, oral, EVERY | | 12 7:34 | | | | | 24 HOURS, 4 doses, First dose on | | AM PST | | | | | 11/25/11 at 0900, Last dose on | | | | | | | 11/28/11 at 0900 | | | | | | + +-------+ +-------+---+---+ +-------+ +-------+---+---+ | Given | 11/27/19 | 40 mg | | | | | 12 7:57 | | | | | | AM PST | | | | +-------+ +-------+---+---+ | Given | 11/26/19 | 40 mg | | | | | 12 7:56 | | | | | | AM PST | | | | +-------+ +-------+---+---+ +---+---+ | | | +---+---+ + +-------+ +-------+---+---+ | diphenhydrAMINE (aka BENADRYL) | Given | 02/04/20 | 25 mg | | | | capsule 25-50 mg 25-50 mg, oral, | | 12 2:49 | | | | | EVERY 4 HOURS NEEDED, | | PM PST | | | | | Starting 11/13/11 at 1806, | | | | | | | Until 12/06/11 at 2315, for | | | | | | | blood product premedication | | | | | | + +-------+ +-------+---+---+ +---+---+ | | | +---+---+ + +-------+ +-------+---+---+ | diphenhydrAMINE (aka COLETTEADRYL) | Given | 11/18/19 | 50 mg | | | | capsule 50 mg 50 mg, oral, ONCE, | | 12 3:37 | | | | | 1 dose, 11/18/11 at 1600 | | PM PST | | | | + +-------+ +-------+---+---+ +---+---+ | | | +---+---+ + +-------+ +-------+---+---+ | diphenhydrAMINE (aka BENADRYL) | Given | 12/02/19 | 50 mg | | | | capsule 50 mg 50 mg, oral, ONCE, | | 12 2:34 | | | | | 1 dose, 12/02/11 at 1400 | | PM PST | | | | + +-------+ +-------+---+---+ +---+---+ | | | +---+---+ + +-------+ + +---+---+ | diphenoxylate-atropine (aka | Given | 12/01/19 | 1 tablet | | | | LOMOTIL) 2.5-0.025 mg 1 Tab 1 | | 12 2:10 | | | | | tablet, oral, FOUR TIMES DAILY, | | PM PST | | | | | 12 doses, First dose on Wed | | | | | | | 11/30/11 at 1400, Last dose on Wed | | | | | | | 12/03/11 at 0900 | | | | | | + +-------+ + +---+---+ +-------+ + +---+---+ | Given | 12/01/19 | 1 tablet | | | | | 12 8:10 | | | | | | AM PST | | | | +-------+ + +---+---+ | Given | 11/30/19 | 1 tablet | | | | | 12 10:53 | | | | | | PM PST | | | | +-------+ + +---+---+ +---+---+ | | | +---+---+ + +-------+ + +---+---+ | diphenoxylate-atropine (aka | Given | 12/04/19 | 1 tablet | | | | LOMOTIL) 2.5-0.025 mg 1 Tab 1 | | 12 8:36 | | | | | tablet, oral, FOUR TIMES DAILY | | AM PST | | | | | NEEDED, Starting 12/01/11 at | | | | | | | 1800, Until 12/06/11 at 2315, | | | | | | | diarrhea | | | | | | + +-------+ + +---+---+ +-------+ + +---+---+ | Given | 12/03/19 | 1 tablet | | | | | 12 10:00 | | | | | | PM PST | | | | +-------+ + +---+---+ | Given | 12/03/19 | 1 tablet | | | | | 12 9:39 | | | | | | AM PST | | | | +-------+ + +---+---+ +---+---+ | | | +---+---+ + +---------+ +--------+--------+---+ | DOXOrubicin (aka ADRIAMYCIN) | New Bag | 11/18/19 | 100 mg | 43.75 | | | 100 mg in NaCl 0.9 % IV 100 mg, | | 12 4:47 | | mL/hr | | | intravenous, Administer over 24 | | PM PST | | | | | Hours, ONCE, 1 dose, 11/18/11 | | | | | | | at 1600, HIGH RISK | | | | | | | MEDICATION-CHEMOTHERAPY | | | | | | | Vesicant. Administer through | | | | | | | running IV line. Stop infusing if | | | | | | | pain at injection site. | | | | | | | Administer by continuous infusion | | | | | | | starting on Day 4 for 1 dose. | | | | | | | Per [employer] authorization, | | | | | | | dose standardization has been | | | | | | | approved for this order. Dose | | | | | | | changed from 99.5 mg (= 50 | | | | | | | mg/m2/dose) to 100 mg , | | | | | | + +---------+ +--------+--------+---+ +---+---+ | | | +---+---+ + +-------+ +--------+---+---+ | dronabinol (aka MARINOL) | Given | 11/17/19 | 2.5 mg | | | | capsule 2.5 mg 2.5 mg, oral, | | 12 6:15 | | | | | TWICE DAILY BEFORE MEALS, First | | AM PST | | | | | dose on 11/15/11 at 1700, | | | | | | | Until Discontinued | | | | | | + +-------+ +--------+---+---+ +-------+ +--------+---+---+ | Given | 11/16/19 | 2.5 mg | | | | | 12 4:08 | | | | | | PM PST | | | | +-------+ +--------+---+---+ | Given | 11/16/19 | 2.5 mg | | | | | 12 6:53 | | | | | | AM PST | | | | +-------+ +--------+---+---+ +---+---+ | | | +---+---+ + +-------+ +------+---+---+ | dronabinol (aka MARINOL) | Given | 11/25/19 | 5 mg | | | | capsule 5 mg 5 mg, oral, TWICE | | 12 7:20 | | | | | DAILY BEFORE MEALS, First dose | | AM PST | | | | | (after last modification) on Tue | | | | | | | 11/17/11 at 1700, Until | | | | | | | Discontinued | | | | | | + +-------+ +------+---+---+ +-------+ +------+---+---+ | Given | 11/24/19 | 5 mg | | | | | 12 4:22 | | | | | | PM PST | | | | +-------+ +------+---+---+ | Given | 11/24/19 | 5 mg | | | | | 12 6:52 | | | | | | AM PST | | | | +-------+ +------+---+---+ +---+---+ | | | +---+---+ + +-------+ +------+---+---+ | dronabinol (aka MARINOL) | Given | 12/06/19 | 5 mg | | | | capsule 5 mg 5 mg, oral, THREE | | 12 8:08 | | | | | TIMES DAILY BEFORE MEALS, First | | AM PST | | | | | dose (after last modification) on | | | | | | | 11/25/11 at 1100, Until | | | | | | | Discontinued | | | | | | + +-------+ +------+---+---+ +-------+ +------+---+---+ | Given | 12/05/19 | 5 mg | | | | | 12 5:29 | | | | | | PM PST | | | | +-------+ +------+---+---+ | Given | 12/05/19 | 5 mg | | | | | 12 11:30 | | | | | | AM PST | | | | +-------+ +------+---+---+ +---+---+ | | | +---+---+ + +---------+ + +--------+---+ | droperidol (aka INAPSINE) | New Bag | 11/21/19 | 0.625 mg | mL/hr | | | injection 0.625 mg 0.625 mg, | | 12 12:07 | | | | | intravenous, EVERY 2 HOURS | | PM PST | | | | | NEEDED, Starting 11/15/11 at | | | | | | | 1408, Until 2/5/12 at 2315, | | | | | | | nausea/vomiting | | | | | | + +---------+ + +--------+---+ +---+---+ | | | +---+---+ + +-------+ +---------+---+---+ | ergocalciferol (aka VITAMIN D2, | Given | 12/04/19 | 50,000 | | | | DRISDOL) capsule 50,000 Units | | 12 8:28 | Units | | | | 50,000 Units, oral, EVERY 7 DAYS, | | PM PST | | | | | First dose on 11/13/11 at | | | | | | | 2100, Until Discontinued | | | | | | + +-------+ +---------+---+---+ +-------+ +---------+---+---+ | Given | 11/27/19 | 50,000 | | | | | 12 9:59 | Units | | | | | PM PST | | | | +-------+ +---------+---+---+ | Given | 11/20/19 | 50,000 | | | | | 12 9:23 | Units | | | | | PM PST | | | | +-------+ +---------+---+---+ +---+---+ | | | +---+---+ + +---------+ +---------+--------+---+ | filgrastim (aka NEUPOGEN) IV | New Bag | 11/28/19 | 480 mcg | mL/hr | | | 480 mcg 480 mcg, intravenous, | | 12 5:13 | | | | | EVERY EVENING AT 1700, First dose | | PM PST | | | | | on Wed11/20/11 at 1700, Until | | | | | | | Discontinued | | | | | | + +---------+ +---------+--------+---+ +---------+ +---------+--------+---+ | New Bag | 11/27/19 | 480 mcg | mL/hr | | | | 12 5:10 | | | | | | PM PST | | | | +---------+ +---------+--------+---+ | New Bag | 11/26/19 | 480 mcg | mL/hr | | | | 12 5:38 | | | | | | PM PST | | | | +---------+ +---------+--------+---+ +---+---+ | | | +---+---+ + +-------+ +--------+---+---+ | fluconazole (aka DIFLUCAN) | Given | 11/21/19 | 400 mg | | | | tablet 400 mg 400 mg, oral, | | 12 9:14 | | | | | DAILY, First dose on Wed11/19/11 | | AM PST | | | | | at 0900, Until Discontinued | | | | | | + +-------+ +--------+---+---+ +-------+ +--------+---+---+ | Given | 11/20/19 | 400 mg | | | | | 12 9:18 | | | | | | AM PST | | | | +-------+ +--------+---+---+ | Given | 11/19/19 | 400 mg | | | | | 12 8:39 | | | | | | AM PST | | | | +-------+ +--------+---+---+ +---+---+ | | | +---+---+ + +-------+ +--------+---+---+ | fluconazole (aka DIFLUCAN) | Given | 12/06/19 | 400 mg | | | | tablet 400 mg 400 mg, oral, | | 12 8:08 | | | | | DAILY, First dose on [facility] 11/26/11 | | AM PST | | | | | at 0900, Until Discontinued | | | | | | + +-------+ +--------+---+---+ +-------+ +--------+---+---+ | Given | 12/05/19 | 400 mg | | | | | 12 9:41 | | | | | | AM PST | | | | +-------+ +--------+---+---+ | Given | 12/04/19 | 400 mg | | | | | 12 8:14 | | | | | | AM PST | | | | +-------+ +--------+---+---+ +---+---+ | | | +---+---+ + +---------+ +-------+--------+---+ | furosemide (aka LASIX) | New Bag | 11/18/19 | 20 mg | mL/hr | | | injection 20 mg 20 mg, | | 12 9:19 | | | | | intravenous, ONCE, 1 dose, Wed | | AM PST | | | | | 11/18/11 at 0900 | | | | | | + +---------+ +-------+--------+---+ +---+---+ | | | +---+---+ + +---------+ +-------+--------+---+ | furosemide (aka LASIX) | New Bag | 11/18/19 | 20 mg | mL/hr | | | injection 20 mg 20 mg, | | 12 4:06 | | | | | intravenous, ONCE, 1 dose, Wed | | PM PST | | | | | 11/18/11 at 1500 | | | | | | + +---------+ +-------+--------+---+ +---+---+ | | | +---+---+ + +---------+ +-------+--------+---+ | furosemide (aka LASIX) | New Bag | 11/23/19 | 20 mg | mL/hr | | | injection 20 mg 20 mg, | | 12 4:36 | | | | | intravenous, ONCE, 1 dose, Mon | | PM PST | | | | | 11/23/11 at 1300 | | | | | | + +---------+ +-------+--------+---+ +---+---+ | | | +---+---+ + +---------+ +-------+--------+---+ | furosemide (aka LASIX) | New Bag | 11/24/19 | 20 mg | mL/hr | | | injection 20 mg 20 mg, | | 12 11:53 | | | | | intravenous, ONCE, 1 dose, Tue | | AM PST | | | | | 11/24/11 at 1115 | | | | | | + +---------+ +-------+--------+---+ +---+---+ | | | +---+---+ + +---------+ +-------+--------+---+ | furosemide (aka LASIX) | New Bag | 11/25/19 | 20 mg | mL/hr | | | injection 20 mg 20 mg, | | 12 12:34 | | | | | intravenous, ONCE, 1 dose, Wed | | PM PST | | | | | 11/25/11 at 1300 | | | | | | + +---------+ +-------+--------+---+ +---+---+ | | | +---+---+ + +---------+ +-------+--------+---+ | furosemide (aka LASIX) | New Bag | 11/18/19 | 40 mg | mL/hr | | | injection 40 mg 40 mg, | | 12 6:56 | | | | | intravenous, ONCE, 1 dose, Wed | | PM PST | | | | | 11/18/11 at 1830 | | | | | | + +---------+ +-------+--------+---+ +---+---+ | | | +---+---+ + +---------+ +-------+--------+---+ | furosemide (aka LASIX) | New Bag | 11/19/19 | 40 mg | mL/hr | | | injection 40 mg 40 mg, | | 12 5:45 | | | | | intravenous, TWICE DAILY, 2 | | PM PST | | | | | doses, First dose (after last | | | | | | | modification) on [facility] 11/19/11 at | | | | | | | 1130, Last dose on [facility] 11/19/11 at | | | | | | | 1800 | | | | | | + +---------+ +-------+--------+---+ +---------+ +-------+--------+---+ | New Bag | 11/19/19 | 40 mg | mL/hr | | | | 12 12:14 | | | | | | PM PST | | | | +---------+ +-------+--------+---+ +---+---+ | | | +---+---+ + +---------+ +-------+--------+---+ | furosemide (aka LASIX) | New Bag | 11/20/19 | 40 mg | mL/hr | | | injection 40 mg 40 mg, | | 12 5:15 | | | | | intravenous, ONCE, 1 dose, Fri | | PM PST | | | | | 11/20/11 at 1800 | | | | | | + +---------+ +-------+--------+---+ +---+---+ | | | +---+---+ + +---------+ +-------+--------+---+ | furosemide (aka LASIX) | New Bag | 11/21/19 | 40 mg | mL/hr | | | injection 40 mg 40 mg, | | 12 11:18 | | | | | intravenous, ONCE, 1 dose, Sat | | AM PST | | | | | 11/21/11 at 0930 | | | | | | + +---------+ +-------+--------+---+ +---+---+ | | | +---+---+ + +---------+ +-------+--------+---+ | furosemide (aka LASIX) | New Bag | 11/22/19 | 40 mg | mL/hr | | | injection 40 mg 40 mg, | | 12 11:03 | | | | | intravenous, ONCE, 1 dose, Sun | | AM PST | | | | | 11/22/11 at 1030 | | | | | | + +---------+ +-------+--------+---+ +---+---+ | | | +---+---+ + +---------+ +-------+--------+---+ | furosemide (aka LASIX) | New Bag | 12/04/19 | 40 mg | mL/hr | | | injection 40 mg 40 mg, | | 12 2:32 | | | | | intravenous, ONCE, 1 dose, Fri | | PM PST | | | | | 12/04/11 at 1300 | | | | | | + +---------+ +-------+--------+---+ +---+---+ | | | +---+---+ + +---------+ +-------+--------+---+ | furosemide (aka LASIX) | New Bag | 12/05/19 | 60 mg | mL/hr | | | injection 60 mg 60 mg, | | 12 2:50 | | | | | intravenous, ONCE, 1 dose, Sat | | PM PST | | | | | 12/05/11 at 1400 | | | | | | + +---------+ +-------+--------+---+ +---+---+ | | | +---+---+ + +-------+ +------+---+---+ | glucose chewable tablet 16 g | Given | 11/13/19 | 16 g | | | | 16 g, oral, EVERY 15 MINUTES | | 12 9:46 | | | | | NEEDED, Starting 11/13/11 at | | PM PST | | | | | 1849, Until 12/06/11 at 2315, | | | | | | | hypoglycemia, CBG less than 70 | | | | | | | mg/dL | | | | | | + +-------+ +------+---+---+ +---+---+ | | | +---+---+ + +-------+ +------+---+---+ | haloperidol (aka HALDOL) tablet | Given | 11/24/19 | 1 mg | | | | 0.5-2 mg 0.5-2 mg, oral, EVERY | | 12 4:22 | | | | | 4 HOURS NEEDED, Starting Sun | | PM PST | | | | | 11/15/11 at 1408, Until 12/06/11 | | | | | | | at 2315, nausea/vomiting | | | | | | + +-------+ +------+---+---+ +-------+ +------+---+---+ | Given | 11/24/19 | 1 mg | | | | | 12 5:14 | | | | | | AM PST | | | | +-------+ +------+---+---+ | Given | 11/24/19 | 1 mg | | | | | 12 12:24 | | | | | | AM PST | | | | +-------+ +------+---+---+ +---+---+ | | | +---+---+ + +---------+ +------+--------+---+ | haloperidol lactate (aka | New Bag | 11/24/19 | 1 mg | mL/hr | | | HALDOL) injection 0.5-2 mg 0.5-2 | | 12 8:25 | | | | | mg, intravenous, EVERY 4 HOURS | | AM PST | | | | | NEEDED, Starting 11/15/11 | | | | | | | at 1408, Until 12/06/11 at | | | | | | | 2315, nausea/vomiting | | | | | | + +---------+ +------+--------+---+ +---+---+ | | | +---+---+ + +-------+ +---------+---+---+ | insulin lispro (aka HUMALOG) | Given | 11/22/19 | 1 Units | | | | injection 1-16 Units 1-16 Units, | | 12 6:30 | | | | | subcutaneous, WITH MEALS AND | | PM PST | | | | | BEDTIME, First dose on Fri | | | | | | | 11/13/11 at 2215, Until | | | | | | | Discontinued | | | | | | + +-------+ +---------+---+---+ +-------+ +---------+---+---+ | Given | 11/22/19 | 1 Units | | | | | 12 1:10 | | | | | | PM PST | | | | +-------+ +---------+---+---+ | Given | 11/20/19 | 1 Units | | | | | 12 2:33 | | | | | | PM PST | | | | +-------+ +---------+---+---+ +---+---+ | | | +---+---+ + +-------+ +---------+---+---+ | insulin lispro (aka HUMALOG) | Given | 12/05/19 | 4 Units | | | | injection 1-16 Units 1-16 Units, | | 12 4:45 | | | | | subcutaneous, WITH MEALS AND | | PM PST | | | | | BEDTIME, First dose on Wed | | | | | | | 11/25/11 at 1715, Until | | | | | | | Discontinued | | | | | | + +-------+ +---------+---+---+ +-------+ +---------+---+---+ | Given | 12/05/19 | 2 Units | | | | | 12 12:32 | | | | | | PM PST | | | | +-------+ +---------+---+---+ | Given | 12/05/19 | 4 Units | | | | | 12 9:16 | | | | | | AM PST | | | | +-------+ +---------+---+---+ +---+---+ | | | +---+---+ + +---------+ +--------+--------+---+ | iodixanol (aka VISIPAQUE) | New Bag | 11/14/19 | 100 mL | mL/hr | | | injection 100 mL 100 mL, | | 12 3:49 | | | | | intravenous, PROCEDURE ONCE, 1 | | PM PST | | | | | dose, 11/14/11 at 1415 | | | | | | + +---------+ +--------+--------+---+ +---+---+ | | | +---+---+ + +-------+ +---+---+---+ | iohexol (aka OMNIPAQUE) | Given | 11/14/19 | | | | | injection oral, ONCE, 1 dose, | | 12 2:25 | | | | | 11/14/11 at 1215 | | PM PST | | | | + +-------+ +---+---+---+ +---+---+ | | | +---+---+ + +---------+ +-------+-------+---+ | leucovorin 50 mg in NaCl 0.9 % | New Bag | 12/04/19 | 50 mg | 220 | | | IV 50 mg, intravenous, ONCE, | | 12 2:32 | | mL/hr | | | dose, Wed12/04/11 at 1000 | | PM PST | | | | + +---------+ +-------+-------+---+ +---+---+ | | | +---+---+ + +---------+ +-------+--------+---+ | leucovorin injection 15 mg 15 | New Bag | 12/06/19 | 15 mg | mL/hr | | | mg, intravenous, EVERY 6 HOURS, | | 12 2:11 | | | | | First dose (after last | | PM PST | | | | | modification) on Wed12/04/11 at | | | | | | | 2000, Until Discontinued | | | | | | + +---------+ +-------+--------+---+ +---------+ +-------+--------+---+ | New Bag | 12/06/19 | 15 mg | mL/hr | | | | 12 8:07 | | | | | | AM PST | | | | +---------+ +-------+--------+---+ | New Bag | 12/06/19 | 15 mg | mL/hr | | | | 12 2:48 | | | | | | AM PST | | | | +---------+ +-------+--------+---+ +---+---+ | | | +---+---+ + +-------+ +--------+---+---+ | levofloxacin (aka LEVAQUIN) | Given | 11/30/19 | 500 mg | | | | tablet 500 mg 500 mg, oral, | | 12 9:19 | | | | | DAILY, First dose on Wed11/19/11 | | AM PST | | | | | at 0900, Until Discontinued | | | | | | + +-------+ +--------+---+---+ +-------+ +--------+---+---+ | Given | 11/29/19 | 500 mg | | | | | 12 7:58 | | | | | | AM PST | | | | +-------+ +--------+---+---+ | Given | 11/28/19 | 500 mg | | | | | 12 7:35 | | | | | | AM PST | | | | +-------+ +--------+---+---+ +---+---+ | | | +---+---+ + +-------+ +--------+---+---+ | levofloxacin (aka LEVAQUIN) | Given | 12/06/19 | 500 mg | | | | tablet 500 mg 500 mg, oral, | | 12 8:08 | | | | | DAILY, First dose on 12/05/11 | | AM PST | | | | | at 0900, Until Discontinued | | | | | | + +-------+ +--------+---+---+ +-------+ +--------+---+---+ | Given | 12/05/19 | 500 mg | | | | | 12 9:41 | | | | | | AM PST | | | | +-------+ +--------+---+---+ +---+---+ | | | +---+---+ + +-------+ +-------+---+---+ | lisinopril (aka PRINIVIL) | Given | 12/06/19 | 10 mg | | | | tablet 10 mg 10 mg, oral, DAILY, | | 12 8:08 | | | | | First dose on 12/05/11 at | | AM PST | | | | | 1230, Until Discontinued | | | | | | + +-------+ +-------+---+---+ +-------+ +-------+---+---+ | Given | 12/05/19 | 10 mg | | | | | 12 12:32 | | | | | | PM PST | | | | +-------+ +-------+---+---+ +---+---+ | | | +---+---+ + +-------+ +------+---+---+ | loperamide (aka IMODIUM) | Given | 11/30/19 | 2 mg | | | | capsule 2 mg 2 mg, oral, | | 12 9:19 | | | | | NEEDED, Starting Wed11/13/11 at | | AM PST | | | | | 1806, Until 11/30/11 at 1109, | | | | | | | after each loose stool | | | | | | + +-------+ +------+---+---+ +-------+ +------+---+---+ | Given | 11/30/19 | 2 mg | | | | | 12 6:34 | | | | | | AM PST | | | | +-------+ +------+---+---+ | Given | 11/30/19 | 2 mg | | | | | 12 2:41 | | | | | | AM PST | | | | +-------+ +------+---+---+ +---+---+ | | | +---+---+ + +-------+ +------+---+---+ | loperamide (aka IMODIUM) | Given | 12/01/19 | 2 mg | | | | capsule 2 mg 2 mg, oral, FOUR | | 12 2:10 | | | | | TIMES DAILY, 12 doses, First dose | | PM PST | | | | | on Wed11/30/11 at 1400, Last | | | | | | | dose on Wed12/03/11 at 0900 | | | | | | + +-------+ +------+---+---+ +-------+ +------+---+---+ | Given | 12/01/19 | 2 mg | | | | | 12 8:10 | | | | | | AM PST | | | | +-------+ +------+---+---+ | Given | 11/30/19 | 2 mg | | | | | 12 10:53 | | | | | | PM PST | | | | +-------+ +------+---+---+ +---+---+ | | | +---+---+ + +---------+ +--------+--------+---+ | LORazepam (akmiladis ATIVAN) | New Bag | 11/14/19 | 0.5 mg | mL/hr | | | injection 0.5-1 mg 0.5-1 mg, | | 12 11:06 | | | | | intravenous, EVERY 6 HOURS | | AM PST | | | | | NEEDED, Starting 11/13/11 at | | | | | | | 1806, Until 11/15/11 at 1406, | | | | | | | anxiety, nausea/vomiting | | | | | | + +---------+ +--------+--------+---+ +---------+ +--------+--------+---+ | New Bag | 11/13/19 | 0.5 mg | mL/hr | | | | 12 10:00 | | | | | | PM PST | | | | +---------+ +--------+--------+---+ +---+---+ | | | +---+---+ + +---------+ +------+--------+---+ | LORazepam (aka ATIVAN) | New Bag | 11/23/19 | 1 mg | mL/hr | | | injection 0.5-1 mg 0.5-1 mg, | | 12 5:22 | | | | | intravenous, EVERY 4 HOURS | | PM PST | | | | | NEEDED, Starting 11/15/11 at | | | | | | | 1408, Until 12/06/11 at 2315, | | | | | | | nausea/vomiting | | | | | | + +---------+ +------+--------+---+ +---------+ +--------+--------+---+ | New Bag | 11/23/19 | 1 mg | mL/hr | | | | 12 1:48 | | | | | | PM PST | | | | +---------+ +--------+--------+---+ | New Bag | 11/23/19 | 0.5 mg | mL/hr | | | | 12 8:44 | | | | | | AM PST | | | | +---------+ +--------+--------+---+ +---+---+ | | | +---+---+ + +-------+ +--------+---+---+ | LORazepam (aka ATIVAN) tablet | Given | 12/05/19 | 0.5 mg | | | | 0.5-1 mg 0.5-1 mg, oral, EVERY 4 | | 12 12:32 | | | | | HOURS NEEDED, Starting Sun | | PM PST | | | | | 11/15/11 at 1408, Until 12/06/11 | | | | | | | at 2315, nausea/vomiting | | | | | | + +-------+ +--------+---+---+ +-------+ +--------+---+---+ | Given | 12/04/19 | 0.5 mg | | | | | 12 7:10 | | | | | | PM PST | | | | +-------+ +--------+---+---+ | Given | 11/22/19 | 0.5 mg | | | | | 12 5:16 | | | | | | AM PST | | | | +-------+ +--------+---+---+ +---+---+ | | | +---+---+ + +-------+ +------+---+---+ | LORazepam (aka ATIVAN) tablet 1 | Given | 11/18/19 | 1 mg | | | | mg 1 mg, oral, EVERY 24 HOURS, | | 12 3:36 | | | | | 4 doses, First dose on Sun | | PM PST | | | | | 11/15/11 at 1600, Last dose on Wed | | | | | | | 11/18/11 at 1500 | | | | | | + +-------+ +------+---+---+ +-------+ +------+---+---+ | Given | 11/17/19 | 1 mg | | | | | 12 4:09 | | | | | | PM PST | | | | +-------+ +------+---+---+ | Given | 11/16/19 | 1 mg | | | | | 12 4:03 | | | | | | PM PST | | | | +-------+ +------+---+---+ +---+---+ | | | +---+---+ + +-------+ +------+---+---+ | LORazepam (aka ATIVAN) tablet 1 | Given | 12/05/19 | 1 mg | | | | mg 1 mg, oral, EVERY 24 HOURS, | | 12 1:47 | | | | | 3 doses, First dose on Wed12/02/11 | | AM PST | | | | | at 1600, Last dose on Wed12/05/11 | | | | | | | at 0100 | | | | | | + +-------+ +------+---+---+ +-------+ +------+---+---+ | Given | 12/03/19 | 1 mg | | | | | 12 8:49 | | | | | | PM PST | | | | +-------+ +------+---+---+ | Given | 12/02/19 | 1 mg | | | | | 12 9:14 | | | | | | PM PST | | | | +-------+ +------+---+---+ +---+---+ | | | +---+---+ + +---------+ +-----+--------+---+ | magnesium sulfate IV 4 g 4 g, | New Bag | 11/19/19 | 4 g | mL/hr | | | intravenous, ONCE, 1 dose, [facility] | | 12 3:40 | | | | | 11/19/11 at 0315 | | AM PST | | | | + +---------+ +-----+--------+---+ +---+---+ | | | +---+---+ + +---------+ + +--------+---+ | mesna (aka MESNEX) 1,200 mg in | New Bag | 11/17/19 | 1,200 mg | 42.17 | | | NaCl 0.9 % IV 1,200 mg, | | 12 9:57 | | mL/hr | | | intravenous, Administer over 24 | | PM PST | | | | | Hours, EVERY 24 HOURS, 3 doses, | | | | | | | First dose on 11/15/11 at | | | | | | | 1700, Last dose on 11/17/11 at | | | | | | | 1700, Begin continuous infusion | | | | | | | with first dose of | | | | | | | Cyclophosphamide. Mesna and | | | | | | | Cyclophosphamide can infuse | | | | | | | through same side of catheter. | | | | | | | Per [employer] authorization, | | | | | | | dose standardization has been | | | | | | | approved for this order. Dose | | | | | | | changed from 1194 mg (= 600 | | | | | | | mg/m2/dose) to 1200 mg , | | | | | | + +---------+ + +--------+---+ +---------+ + +--------+---+ | New Bag | 11/16/19 | 1,200 mg | 46.7 | | | | 12 8:26 | | mL/hr | | | | PM PST | | | | +---------+ + +--------+---+ | New Bag | 11/15/19 | 1,200 mg | 42.17 | | | | 12 6:03 | | mL/hr | | | | PM PST | | | | +---------+ + +--------+---+ +---+---+ | | | +---+---+ + +---------+ + + +---+ | methotrexate (PF) 1,950 mg in | New Bag | 12/02/19 | 1,950 mg | 42 mL/hr | | | NaCl 0.9 % IV 1,950 mg, | | 12 10:36 | | | | | intravenous, Administer over 24 | | PM PST | | | | | Hours, ONCE, 1 dose, 12/02/11 | | | | | | | at 1700, HIGH RISK | | | | | | | MEDICATION-CHEMOTHERAPY | | | | | | | Continuous infusion on Day 1. | | | | | | | Per [employer] authorization, | | | | | | | dose standardization has been | | | | | | | approved for this order. Dose | | | | | | | changed from 1940 mg (= 1000 | | | | | | | mg/m2/dose) to 1950 mg., | | | | | | + +---------+ + + +---+ +---+---+ | | | +---+---+ + +-------+ +-------+---+---+ | morphine (aka MS IR) tablet 15 | Given | 12/01/19 | 15 mg | | | | mg 15 mg, oral, TWICE DAILY | | 12 2:10 | | | | | NEEDED, Starting 11/13/11 at | | PM PST | | | | | 1847, Until Wed12/02/11 at 0955, | | | | | | | moderate pain | | | | | | + +-------+ +-------+---+---+ +-------+ +-------+---+---+ | Given | 12/01/19 | 15 mg | | | | | 12 6:31 | | | | | | AM PST | | | | +-------+ +-------+---+---+ | Given | 11/30/19 | 15 mg | | | | | 12 6:49 | | | | | | PM PST | | | | +-------+ +-------+---+---+ +---+---+ | | | +---+---+ + +-------+ +-------+---+---+ | morphine (aka MS IR) tablet 15 | Given | 12/06/19 | 15 mg | | | | mg 15 mg, oral, EVERY 4 HOURS | | 12 9:20 | | | | | NEEDED, Starting 12/02/11 at | | AM PST | | | | | 1115, Until 12/06/11 at 2315, | | | | | | | moderate pain | | | | | | + +-------+ +-------+---+---+ +-------+ +-------+---+---+ | Given | 12/06/19 | 15 mg | | | | | 12 12:16 | | | | | | AM PST | | | | +-------+ +-------+---+---+ | Given | 12/05/19 | 15 mg | | | | | 12 12:33 | | | | | | PM PST | | | | +-------+ +-------+---+---+ +---+---+ | | | +---+---+ + +---------+ +------+--------+---+ | morphine injection Inj 1-4 mg | New Bag | 12/06/19 | 2 mg | mL/hr | | | 1-4 mg, intravenous, EVERY 2 | | 12 11:31 | | | | | HOURS NEEDED, Starting Fri | | AM PST | | | | | 11/13/11 at 1806, Until 12/06/11 | | | | | | | at 2315, for pain | | | | | | + +---------+ +------+--------+---+ +---------+ +------+--------+---+ | New Bag | 12/06/19 | 2 mg | mL/hr | | | | 12 12:16 | | | | | | AM PST | | | | +---------+ +------+--------+---+ | New Bag | 12/05/19 | 2 mg | mL/hr | | | | 12 2:50 | | | | | | PM PST | | | | +---------+ +------+--------+---+ +---+---+ | | | +---+---+ + +---------+ + +--------+---+ | NaCl 0.9 % IV bolus 1,000 mL | New Bag | 11/14/19 | 1,000 mL | mL/hr | | | 1,000 mL, intravenous, ONCE, 1 | | 12 5:35 | | | | | dose, 11/14/11 at 0530 | | AM PST | | | | + +---------+ + +--------+---+ +---+---+ | | | +---+---+ + + + +--------+--------+---+ | NaCl 0.9 % IV bolus 500 mL 500 | Rate/Dos | 11/15/19 | 500 mL | mL/hr | | | mL, intravenous, ONCE, 1 dose, | e Change | 12 3:30 | | | | | 11/15/11 at 1415 | | PM PST | | | | + + + +--------+--------+---+ +---+---+ | | | +---+---+ + +---------+ +--------+--------+---+ | NaCl 0.9 % IV bolus 500 mL 500 | New Bag | 12/01/19 | 500 mL | mL/hr | | | mL, intravenous, ONCE, 1 dose, | | 12 2:00 | | | | | 12/01/11 at 1315 | | PM PST | | | | + +---------+ +--------+--------+---+ +---+---+ | | | +---+---+ + + + +-------+-------+---+ | NaCl 0.9 % IV 150 mL/hr, | Restarte | 11/15/19 | 150 | 150 | | | intravenous, CONTINUOUS, Starting | d | 12 1:30 | mL/hr | mL/hr | | | 11/13/11 at 1815, Until Sun | | PM PST | | | | | 11/15/11 at 1417 | | | | | | + + + +-------+-------+---+ +---------+ +-------+-------+---+ | New Bag | 11/15/19 | 150 | 150 | | | | 12 11:40 | mL/hr | mL/hr | | | | AM PST | | | | +---------+ +-------+-------+---+ | New Bag | 11/15/19 | 150 | 150 | | | | 12 4:18 | mL/hr | mL/hr | | | | AM PST | | | | +---------+ +-------+-------+---+ +---+---+ | | | +---+---+ + +---------+ +-------+-------+---+ | NaCl 0.9 % IV 150 mL/hr, | New Bag | 11/18/19 | 150 | 150 | | | intravenous, CONTINUOUS, Starting | | 12 1:10 | mL/hr | mL/hr | | | 11/15/11 at 1415, Until Wed | | AM PST | | | | | 11/18/11 at 1214 | | | | | | + +---------+ +-------+-------+---+ +---------+ +-------+-------+---+ | New Bag | 11/17/19 | 150 | 150 | | | | 12 6:09 | mL/hr | mL/hr | | | | PM PST | | | | +---------+ +-------+-------+---+ | New Bag | 11/17/19 | 150 | 150 | | | | 12 10:06 | mL/hr | mL/hr | | | | AM PST | | | | +---------+ +-------+-------+---+ +---+---+ | | | +---+---+ + +---------+ + + +---+ | NaCl 0.9 % IV 75 mL/hr, | New Bag | 11/19/19 | 75 mL/hr | 75 mL/hr | | | intravenous, CONTINUOUS, Starting | | 12 3:13 | | | | | 11/18/11 at 1215, Until [facility]o | | PM PST | | | | | 11/19/11 at 1810 | | | | | | + +---------+ + + +---+ +---------+ + + +---+ | New Bag | 11/18/19 | 75 mL/hr | 75 mL/hr | | | | 12 11:57 | | | | | | PM PST | | | | +---------+ + + +---+ | New Bag | 11/18/19 | 75 mL/hr | 75 mL/hr | | | | 12 3:56 | | | | | | PM PST | | | | +---------+ + + +---+ +---+---+ | | | +---+---+ + +-------+ +---+---+---+ | nystatin (aka MYCOSTATIN) | Given | 12/05/19 | | | | | powder topical, TWICE DAILY, | | 12 8:19 | | | | | First dose on 11/28/11 at | | PM PST | | | | | 1130, Until Discontinued | | | | | | + +-------+ +---+---+---+ + + +---+---+---+ | Pt Administered | 12/05/19 | | | | | | 12 9:42 | | | | | | AM PST | | | | + + +---+---+---+ | Given | 12/04/19 | | | | | | 12 8:32 | | | | | | PM PST | | | | + + +---+---+---+ +---+---+ | | | +---+---+ + +-------+ +-------+---+---+ | omeprazole (aka PRILOSEC) | Given | 11/22/19 | 20 mg | | | | capsule 20 mg 20 mg, oral, | | 12 8:44 | | | | | DAILY, First dose on 11/14/11 | | AM PST | | | | | at 0900, Until Discontinued | | | | | | + +-------+ +-------+---+---+ +-------+ +-------+---+---+ | Given | 11/21/19 | 20 mg | | | | | 12 9:12 | | | | | | AM PST | | | | +-------+ +-------+---+---+ | Given | 11/20/19 | 20 mg | | | | | 12 9:19 | | | | | | AM PST | | | | +-------+ +-------+---+---+ +---+---+ | | | +---+---+ + +-------+ +-------+---+---+ | omeprazole (aka PRILOSEC) | Given | 11/22/19 | 20 mg | | | | capsule 20 mg 20 mg, oral, ONCE, | | 12 4:14 | | | | | 1 dose, 11/22/11 at 1700 | | PM PST | | | | + +-------+ +-------+---+---+ +---+---+ | | | +---+---+ + +-------+ +-------+---+---+ | omeprazole (aka PRILOSEC) | Given | 11/25/19 | 40 mg | | | | capsule 40 mg 40 mg, oral, | | 12 7:47 | | | | | DAILY, First dose (after last | | AM PST | | | | | modification) on 11/23/11 at | | | | | | | 0900, Until Discontinued | | | | | | + +-------+ +-------+---+---+ +-------+ +-------+---+---+ | Given | 11/24/19 | 40 mg | | | | | 12 10:38 | | | | | | AM PST | | | | +-------+ +-------+---+---+ | Given | 11/23/19 | 40 mg | | | | | 12 10:05 | | | | | | AM PST | | | | +-------+ +-------+---+---+ +---+---+ | | | +---+---+ + +-------+ +-------+---+---+ | omeprazole (aka PRILOSEC) | Given | 12/01/19 | 40 mg | | | | capsule 40 mg 40 mg, oral, TWICE | | 12 8:11 | | | | | DAILY, First dose (after last | | AM PST | | | | | modification) on 11/25/11 at | | | | | | | 2100, Until Discontinued | | | | | | + +-------+ +-------+---+---+ +-------+ +-------+---+---+ | Given | 11/30/19 | 40 mg | | | | | 12 8:50 | | | | | | PM PST | | | | +-------+ +-------+---+---+ | Given | 11/30/19 | 40 mg | | | | | 12 9:20 | | | | | | AM PST | | | | +-------+ +-------+---+---+ +---+---+ | | | +---+---+ + +-------+ +-------+---+---+ | ondansetron (aka ZOFRAN) tablet | Given | 11/18/19 | 24 mg | | | | 24 mg 24 mg, oral, EVERY 24 | | 12 3:36 | | | | | HOURS, 4 doses, First dose on Sun | | PM PST | | | | | 11/15/11 at 1600, Last dose on | | | | | | | 11/18/11 at 1500 | | | | | | + +-------+ +-------+---+---+ +-------+ +-------+---+---+ | Given | 11/17/19 | 24 mg | | | | | 12 4:09 | | | | | | PM PST | | | | +-------+ +-------+---+---+ | Given | 11/16/19 | 24 mg | | | | | 12 4:03 | | | | | | PM PST | | | | +-------+ +-------+---+---+ +---+---+ | | | +---+---+ + +-------+ +-------+---+---+ | ondansetron (aka ZOFRAN) tablet | Given | 12/05/19 | 24 mg | | | | 24 mg 24 mg, oral, EVERY 24 | | 12 1:47 | | | | | HOURS, 3 doses, First dose on Wed | | AM PST | | | | | 12/02/11 at 1600, Last dose on Sat | | | | | | | 12/05/11 at 0100 | | | | | | + +-------+ +-------+---+---+ +-------+ +-------+---+---+ | Given | 12/03/19 | 24 mg | | | | | 12 8:49 | | | | | | PM PST | | | | +-------+ +-------+---+---+ | Given | 12/02/19 | 24 mg | | | | | 12 9:15 | | | | | | PM PST | | | | +-------+ +-------+---+---+ +---+---+ | | | +---+---+ + +-------+ +-------+---+---+ | oxyCODONE (immediate release) | Given | 11/17/19 | 10 mg | | | | (aka ROXICODONE) tablet 5-10 mg | | 12 6:31 | | | | | 5-10 mg, oral, EVERY 4 HOURS | | AM PST | | | | | NEEDED, Starting Wed11/13/11 at | | | | | | | 1847, Until Wed11/17/11 at 0928, | | | | | | | pain | | | | | | + +-------+ +-------+---+---+ +-------+ +-------+---+---+ | Given | 11/17/19 | 10 mg | | | | | 12 12:10 | | | | | | AM PST | | | | +-------+ +-------+---+---+ | Given | 11/16/19 | 10 mg | | | | | 12 6:41 | | | | | | PM PST | | | | +-------+ +-------+---+---+ +---+---+ | | | +---+---+ + +-------+ +-------+---+---+ | oxyCODONE CR (aka OXYCONTIN) | Given | 12/01/19 | 20 mg | | | | tablet 20 mg 20 mg, oral, EVERY | | 12 8:10 | | | | | 12 HOURS, First dose on [facility]o | | AM PST | | | | | 11/19/11 at 2100, Until | | | | | | | Discontinued | | | | | | + +-------+ +-------+---+---+ +-------+ +-------+---+---+ | Given | 11/30/19 | 20 mg | | | | | 12 8:50 | | | | | | PM PST | | | | +-------+ +-------+---+---+ | Given | 11/30/19 | 20 mg | | | | | 12 9:19 | | | | | | AM PST | | | | +-------+ +-------+---+---+ +---+---+ | | | +---+---+ + +-------+ +-------+---+---+ | oxyCODONE CR (aka OXYCONTIN) | Given | 12/06/19 | 40 mg | | | | tablet 40 mg 40 mg, oral, EVERY | | 12 8:08 | | | | | 12 HOURS, First dose (after last | | AM PST | | | | | modification) on Wed12/01/11 at | | | | | | | 2100, Until Discontinued | | | | | | + +-------+ +-------+---+---+ +-------+ +-------+---+---+ | Given | 12/05/19 | 40 mg | | | | | 12 8:19 | | | | | | PM PST | | | | +-------+ +-------+---+---+ | Given | 12/05/19 | 40 mg | | | | | 12 9:41 | | | | | | AM PST | | | | +-------+ +-------+---+---+ +---+---+ | | | +---+---+ + +-------+ +-------+---+---+ | oxyCODONE immediate release | Given | 12/02/19 | 10 mg | | | | (aka ROXICODONE) tablet 5-15 mg | | 12 9:37 | | | | | 5-15 mg, oral, EVERY 4 HOURS | | AM PST | | | | | NEEDED, Starting 11/17/11 at | | | | | | | 0927, Until 12/02/11 at 1115, | | | | | | | pain | | | | | | + +-------+ +-------+---+---+ +-------+ +-------+---+---+ | Given | 12/01/19 | 5 mg | | | | | 12 8:39 | | | | | | PM PST | | | | +-------+ +-------+---+---+ | Given | 12/01/19 | 10 mg | | | | | 12 6:05 | | | | | | PM PST | | | | +-------+ +-------+---+---+ +---+---+ | | | +---+---+ + +---------+ +--------+--------+---+ | perflutren lipid microspheres | New Bag | 11/16/19 | 1.5 mL | mL/hr | | | (aka DEFINITY) injection 1.5 mL | | 12 3:30 | | | | | 1.5 mL, intravenous, PROCEDURE | | PM PST | | | | | ONCE, 1 dose, 11/16/11 at 1700 | | | | | | + +---------+ +--------+--------+---+ +---+---+ | | | +---+---+ + +---------+ +--------+--------+---+ | potassium chloride IV 40 mEq | New Bag | 11/29/19 | 40 mEq | mL/hr | | | 40 mEq, intravenous, NEEDED, | | 12 5:02 | | | | | Starting Karo 11/19/11 at 0951, | | AM PST | | | | | Until 12/06/11 at 2315, | | | | | | | potassium level 3-3.4 | | | | | | + +---------+ +--------+--------+---+ +---------+ +--------+--------+---+ | New Bag | 11/25/19 | 40 mEq | mL/hr | | | | 12 3:28 | | | | | | AM PST | | | | +---------+ +--------+--------+---+ +---+---+ | | | +---+---+ + +-------+ +--------+---+---+ | potassium chloride SR (aka | Given | 12/06/19 | 40 mEq | | | | K-DUR) tablet 40 mEq 40 mEq, | | 12 8:12 | | | | | oral, NEEDED, Starting Karo | | AM PST | | | | | 11/19/11 at 0951, Until 12/06/11 | | | | | | | at 2315, potassium level 3-3.4 | | | | | | | mmol/L | | | | | | + +-------+ +--------+---+---+ +-------+ +--------+---+---+ | Given | 12/05/19 | 40 mEq | | | | | 12 11:31 | | | | | | AM PST | | | | +-------+ +--------+---+---+ | Given | 12/02/19 | 40 mEq | | | | | 12 11:22 | | | | | | AM PST | | | | +-------+ +--------+---+---+ +---+---+ | | | +---+---+ + +-------+ +---------+---+---+ | prednisoLONE acetate (aka PRED | Given | 12/06/19 | 2 drops | | | | FORTE) 1 % ophthalmic drops, | | 12 2:12 | | | | | suspension 2 Drop 2 drop, Both | | PM PST | | | | | Eyes, EVERY 6 HOURS, 16 doses, | | | | | | | First dose (after last | | | | | | | modification) on Karo 12/03/11 at | | | | | | | 2130, Last dose on 12/07/11 at | | | | | | | 2100 | | | | | | + +-------+ +---------+---+---+ +-------+ +---------+---+---+ | Given | 12/06/19 | 2 drops | | | | | 12 8:09 | | | | | | AM PST | | | | +-------+ +---------+---+---+ | Given | 12/06/19 | 2 drops | | | | | 12 2:58 | | | | | | AM PST | | | | +-------+ +---------+---+---+ +---+---+ | | | +---+---+ + +-------+ +-------+---+---+ | prochlorperazine (aka | Given | 11/13/19 | 10 mg | | | | COMPAZINE) tablet 5-10 mg 5-10 | | 12 11:51 | | | | | mg, oral, EVERY 4 HOURS | | PM PST | | | | | NEEDED, Starting 11/13/11 at | | | | | | | 1807, Until 11/15/11 at 1406, | | | | | | | nausea/vomiting | | | | | | + +-------+ +-------+---+---+ +---+---+ | | | +---+---+ + +-------+ +-------+---+---+ | prochlorperazine (aka | Given | 11/18/19 | 10 mg | | | | COMPAZINE) tablet 5-10 mg 5-10 | | 12 5:50 | | | | | mg, oral, EVERY 4 HOURS | | AM PST | | | | | NEEDED, Starting 11/15/11 at | | | | | | | 1408, Until 12/06/11 at 2315, | | | | | | | nausea/vomiting | | | | | | + +-------+ +-------+---+---+ +-------+ +-------+---+---+ | Given | 11/17/19 | 10 mg | | | | | 12 10:09 | | | | | | PM PST | | | | +-------+ +-------+---+---+ | Given | 11/17/19 | 10 mg | | | | | 12 5:11 | | | | | | PM PST | | | | +-------+ +-------+---+---+ +---+---+ | | | +---+---+ + +---------+ +--------+--------+---+ | riTUXimab (aka RITUXAN) 700 mg | New Bag | 12/02/19 | 700 mg | mL/hr | | | in NaCl 0.9 % IV {STANDARD} 700 | | 12 3:21 | | | | | mg, intravenous, ONCE, 1 dose, | | PM PST | | | | | 12/02/11 at 1500 | | | | | | + +---------+ +--------+--------+---+ +---+---+ | | | +---+---+ + +---------+ +--------+--------+---+ | riTUXimab (aka RITUXAN) 800 mg | New Bag | 11/18/19 | 800 mg | mL/hr | | | in NaCl 0.9 % IV {STANDARD} 800 | | 12 5:30 | | | | | mg, intravenous, ONCE, 1 dose, | | PM PST | | | | | 11/18/11 at 1700 | | | | | | + +---------+ +--------+--------+---+ +---+---+ | | | +---+---+ + +-------+ + +---+---+ | senna-kayleeusate (akmiladis Gregorio) | Given | 11/18/19 | 1 tablet | | | | 8.6-50 mg 1-2 Tab 1-2 tablet, | | 12 3:48 | | | | | oral, EVERY 12 HOURS NEEDED, | | AM PST | | | | | Starting 11/13/11 at 1806, | | | | | | | Until 12/06/11 at 2315, | | | | | | | constipation | | | | | | + +-------+ + +---+---+ +-------+ + +---+---+ | Given | 11/17/19 | 1 tablet | | | | | 12 5:11 | | | | | | PM PST | | | | +-------+ + +---+---+ +---+---+ | | | +---+---+ + +---------+ +---+-------+---+ | sodium bicarbonate 8.4 % (1 | New Bag | 02/01/20 | | 200 | | | mEq/mL) 100 mEq in dextrose 5% IV | | 12 9:28 | | mL/hr | | | infusion intravenous, | | AM PST | | | | | CONTINUOUS, Starting 12/02/11 | | | | | | | at 0600, Until 12/02/11 at 0959 | | | | | | + +---------+ +---+-------+---+ +---+---+ | | | +---+---+ + +---------+ +---+-------+---+ | sodium bicarbonate 8.4 % (1 | New Bag | 12/05/19 | | 150 | | | mEq/mL) 100 mEq in dextrose 5% IV | | 12 5:35 | | mL/hr | | | infusion intravenous, | | PM PST | | | | | CONTINUOUS, Starting 12/02/11 | | | | | | | at 1500, Until 12/06/11 at 2315 | | | | | | + +---------+ +---+-------+---+ +---------+ +---+-------+---+ | New Bag | 12/05/19 | | 150 | | | | 12 9:35 | | mL/hr | | | | AM PST | | | | +---------+ +---+-------+---+ | New Bag | 12/05/19 | | 150 | | | | 12 3:00 | | mL/hr | | | | AM PST | | | | +---------+ +---+-------+---+ +---+---+ | | | +---+---+ + +-------+ +-----+---+---+ | sucralfate (aka CARAFATE) | Given | 12/06/19 | 1 g | | | | suspension 1 g 1 g, oral, BEFORE | | 12 8:08 | | | | | MEALS AND BEDTIME, First dose on | | AM PST | | | | | 11/25/11 at 1100, Until | | | | | | | Discontinued | | | | | | + +-------+ +-----+---+---+ +-------+ +-----+---+---+ | Given | 12/05/19 | 1 g | | | | | 12 8:19 | | | | | | PM PST | | | | +-------+ +-----+---+---+ | Given | 12/05/19 | 1 g | | | | | 12 5:29 | | | | | | PM PST | | | | +-------+ +-----+---+---+ +---+---+ | | | +---+---+ + +-------+ + +---+---+ | trimethoprim-sulfamethoxazole | Given | 11/23/19 | 1 tablet | | | | (aka BACTRIM DS,SEPTRA DS) | | 12 10:05 | | | | | 160-800 mg tablet 1 Tab 1 | | AM PST | | | | | tablet, oral, EVERY | | | | | | | (Once per day on Wed), | | | | | | | First dose on Wed11/20/11 at | | | | | | | 0900, Until Discontinued | | | | | | + +-------+ + +---+---+ +-------+ + +---+---+ | Given | 11/20/19 | 1 tablet | | | | | 12 9:19 | | | | | | AM PST | | | | +-------+ + +---+---+ +---+---+ | | | +---+---+ + +-------+ + +---+---+ | trimethoprim-sulfamethoxazole | Given | 11/30/19 | 1 tablet | | | | (aka BACTRIM DS,SEPTRA DS) | | 12 8:50 | | | | | 160-800 mg tablet 1 Tab 1 | | PM PST | | | | | tablet, oral, EVERY WED AND WED | | | | | | | BID (2 times per day on Wed), | | | | | | | First dose (after last | | | | | | | modification) on Tu11/24/11 at | | | | | | | 0730, Until Discontinued | | | | | | + +-------+ + +---+---+ +-------+ + +---+---+ | Given | 11/30/19 | 1 tablet | | | | | 12 9:19 | | | | | | AM PST | | | | +-------+ + +---+---+ | Given | 11/26/19 | 1 tablet | | | | | 12 8:40 | | | | | | PM PST | | | | +-------+ + +---+---+ +---+---+ | | | +---+---+ + +---------+ +--------+--------+---+ | vancomycin (aka VANCOCIN) IV | New Bag | 11/28/19 | 1.25 g | mL/hr | | | 1.25 g 1.25 g, intravenous, | | 12 12:30 | | | | | EVERY 12 HOURS, First dose on Karo | | AM PST | | | | | 11/26/11 at 1200, Until | | | | | | | Discontinued | | | | | | + +---------+ +--------+--------+---+ +---------+ +--------+--------+---+ | New Bag | 11/27/19 | 1.25 g | mL/hr | | | | 12 1:34 | | | | | | PM PST | | | | +---------+ +--------+--------+---+ | New Bag | 11/27/19 | 1.25 g | mL/hr | | | | 12 12:04 | | | | | | AM PST | | | | +---------+ +--------+--------+---+ +---+---+ | | | +---+---+ + +---------+ +-------+--------+---+ | vancomycin (aka VANCOCIN) IV | New Bag | 12/02/19 | 1.5 g | mL/hr | | | 1.5 g 1.5 g, intravenous, EVERY | | 12 12:20 | | | | | 12 HOURS, First dose (after last | | AM PST | | | | | reorder) on 11/28/11 at 1300, | | | | | | | Until Discontinued | | | | | | + +---------+ +-------+--------+---+ +---------+ +-------+--------+---+ | New Bag | 12/01/19 | 1.5 g | mL/hr | | | | 12 2:10 | | | | | | PM PST | | | | +---------+ +-------+--------+---+ | Bag | 12/01/19 | 1.5 g | mL/hr | | | | 12 1:23 | | | | | | AM PST | | | | +---------+ +-------+--------+---+ +---+---+ | | | +---+---+ + +---------+ +-------+--------+---+ | vancomycin (aka VANCOCIN) IV | New Bag | 12/04/19 | 1.5 g | mL/hr | | | 1.5 g 1.5 g, intravenous, EVERY | | 12 12:37 | | | | | 12 HOURS, 5 doses, First dose | | PM PST | | | | | (after last modification) on Wed | | | | | | | 12/02/11 at 1300, Last dose on Wed | | | | | | | 12/04/11 at 1300 | | | | | | + +---------+ +-------+--------+---+ +---------+ +-------+--------+---+ | New Bag | 12/04/19 | 1.5 g | mL/hr | | | | 12 12:30 | | | | | | AM PST | | | | +---------+ +-------+--------+---+ | New Bag | 12/03/19 | 1.5 g | mL/hr | | | | 12 2:29 | | | | | | PM PST | | | | +---------+ +-------+--------+---+ +---+---+ | | | +---+---+ + +-------+ +--------+---+---+ | vancomycin 50 mg/mL oral | Given | 12/02/19 | 125 mg | | | | solution 125 mg 125 mg, oral, | | 12 8:11 | | | | | FOUR TIMES DAILY, First dose on | | AM PST | | | | | 11/17/11 at 1000, Until | | | | | | | Discontinued | | | | | | + +-------+ +--------+---+---+ +-------+ +--------+---+---+ | Given | 12/01/19 | 125 mg | | | | | 12 8:39 | | | | | | PM PST | | | | +-------+ +--------+---+---+ | Given | 12/01/19 | 125 mg | | | | | 12 6:02 | | | | | | PM PST | | | | +-------+ +--------+---+---+ +---+---+ | | | +---+---+ + +-------+ +--------+---+---+ | vancomycin 50 mg/mL oral | Given | 12/03/19 | 125 mg | | | | solution 125 mg 125 mg, oral, | | 12 11:52 | | | | | FOUR TIMES DAILY, 4 doses, First | | AM PST | | | | | dose (after last modification) on | | | | | | | 12/02/11 at 1400, Last dose on | | | | | | | Karo 12/03/11 at 0900 | | | | | | + +-------+ +--------+---+---+ +-------+ +--------+---+---+ | Given | 12/02/19 | 125 mg | | | | | 12 11:00 | | | | | | PM PST | | | | +-------+ +--------+---+---+ | Given | 12/02/19 | 125 mg | | | | | 12 5:35 | | | | | | PM PST | | | | +-------+ +--------+---+---+ +---+---+ | | | +---+---+ + +---------+ +------+-------+---+ | vinCRIStine (aka ONCOVIN) 2 mg | New Bag | 11/18/19 | 2 mg | 324 | | | in NaCl 0.9 % IV 2 mg, | | 12 4:48 | | mL/hr | | | intravenous, Administer over 5 | | PM PST | | | | | Minutes, ONCE, 1 dose, Wed | | | | | | | 11/18/11 at 1600, HIGH RISK | | | | | | | MEDICATION-CHEMOTHERAPY | | | | | | | Vesicant. FATAL IF GIVEN | | | | | | | INTRATHECALLY. FOR IV USE ONLY. | | | | | | | Administer through running IV | | | | | | | line. Stop infusing if pain at | | | | | | | injection site. Administer over 5 | | | | | | | to 15 minutes on day 4, | | | | | | + +---------+ +------+-------+---+ +---+---+ | | | +---+---+ + +---------+ +------+-------+---+ | vinCRIStine (aka ONCOVIN) 2 mg | New Bag | 11/25/19 | 2 mg | 324 | | | in NaCl 0.9 % IV 2 mg, | | 12 2:25 | | mL/hr | | | intravenous, Administer over 5 | | PM PST | | | | | Minutes, ONCE, 1 dose, Wed | | | | | | | 11/25/11 at 1300, HIGH RISK | | | | | | | MEDICATION-CHEMOTHERAPY | | | | | | | Vesicant. FATAL IF GIVEN | | | | | | | INTRATHECALLY. FOR IV USE ONLY. | | | | | | | Administer through running IV | | | | | | | line. Stop infusing if pain at | | | | | | | injection site. Administer on | | | | | | | day 11 over 5 to 15 minutes., | | | | | | + +---------+ +------+-------+---+ +---+---+ | | | +---+---+ documented in this encounter
--- OUTSIDE RECORDS SUMMARY | ~2020-06-17 | XMS | Encounter Summary ---
Demographics + + + | Address | [address] | | | [place] [address] | + + + | Home Phone | | + + + | Preferred Language | Unknown | + + + | Marital Status | Single | + + + | Jewish Affiliation | NON | + + + | Race | or | + + + | Ethnic Group | Not or | + + + Author + + + | Author | [facility] | + + + | Organization | [facility] | + + + | Address | Unknown | + + + | Phone | Unavailable | + + + Support + + + + + | Name | Relationship | Address | Phone | + + + + + | Yue Fischer | ECON | [address] | | | | | [place] | | | | | [address] | | + + + + + | Greta Broncheau | ECON | Unknown | | + + + + + Care Team Providers + +------+ + | Care Mortuary Beautician Name | Role | Phone | + +------+ + | Becky Jennings | PCP | | + +------+ + Reason for Visit + + + | Reason | Comments | + + + | Malignant lymphoma, | | | non-Hodgkin's type | | + + + AUTH/CERT (Routine) +--------+--------+ + + + + [...] + + + + | 11/13/ | Procedure | Hematology/Medical | Yossi Hutchins MD | Malignant lymphoma, | | 2011 | | Oncology at [facility] | [address] | non-Hodgkin's type | | | | [address] | [place], | | | | | Mailcode: [id number] | [place] [address] | | | | | [facility] | [phone] | | | | | and Healing, | | | | | | [facility] | | | | | | [place], [place] | | | | | | [address] | | | | | | [phone] | | | +--------+ + + + [...] documented as of this encounter Progress Notes Yossi Hutchins MD - 11/13/2011 10:12 PM PSTProcedure Note: Bone marrow biopsy and aspirate Performed by: Yossi Hutchins MD Indication: Lymphoma staging Procedure: The procedure, indication and risks explained. Written consent obtained. A PAR Q session was held, additional questions with discussion were completed. She was premedicate d with ativan 1 mg iv and morphine 1 mg x 2. Patient placed in a left lateral decubitus pos ition. The right superior posterior iliac crest prepared with betadine x [address]. Lidocaine 1% x 10 cc used for local anesthesia. A Jamshiti needle aspirate return 5 cc sample containing grossly apparent spicules. A second aspirate return 5 cc into a hepari nized syringe was obtained. A Jamshiti needle core biopsy return a 0.25 cm specimen. A seco nd jamshiti needle core biopsy return a 1.5 cm specimen The puncture wound was cleaned and d ressed. After care instruction given. No complications. Biopsy material sent for histolog y, cytology, cytogenetics and flow cytometry. documented in this encou nter Plan of Treatment Not on filedocumented as of this encounter Procedures + +--------+ + + + | Procedure Name | Priori | Date/Time | Associated Diagnosis | Comments | | | ty | | | | + +--------+ + + + | [place] BONE MARROW BX, | Routin | 11/13/2011 | Burkitt's lymphoma | | | NEEDLE/TROCAR | e | 10:12 PM | (HCC) | | | | | PST | | | + +--------+ + + + | [place] BONE MARROW; | Routin | 11/13/2011 | Burkitt's lymphoma | | | ASPIRATION ONLY | e | 10:12 PM | (HCC) | | | | | PST | | | + +--------+ + + + documented in this encounter Visit Diagnoses + + | Diagnosis | + + | Burkitt's lymphoma (HCC) - Primary Burkitt's tumor or lymphoma, unspecified site, | | extranodal and solid organ sites | + + documented in this encounter"
--- OUTSIDE RECORDS SUMMARY | ~2020-06-17 | XMS | Encounter Summary ---
Demographics + + + | Address | [address] | | | [place] [address] | + + + | Home Phone | | + + + | Preferred Language | Unknown | + + + | Marital Status | Single | + + + | Yarsanism Affiliation | NON | + + + | Race | or | + + + | Ethnic Group | Not or | + + + Author + + + | Author | [facility] | + + + | Organization | [facility] | + + + | Address | Unknown | + + + | Phone | Unavailable | + + + Support + + + + + | Name | Relationship | Address | Phone | + + + + + | Yue Fischer | ECON | [address] | | | | | [place] | | | | | [address] | | + + + + + | Greta Broncheau | ECON | Unknown | | + + + + + Care Team Providers + +------+ + | Care [employer] And [employer]ry Baker Name | Role | Phone | + +------+ + | Becky Jennings | PCP | | + +------+ + Encounter Details +--------+ + + + + | Date | Type | Department | Care Team | Description | +--------+ + + + + | 08/15/ | Documentati | Health Information | Other, Faculty | | | 2019 | on | Services 3181 | [phone] | | | | | Ramón Emeka Jena Saravia | | | | | | Mailcode: [id number] | | | | | | [facility] | | | | | | [place], [place] | | | | | | [address] | | | | | | [phone] | | | +--------+ + + + [...]
--- OUTSIDE RECORDS SUMMARY | ~2020-06-17 | XMS | Encounter Summary ---
Demographics + + + | Address | [address] | | | [place] [address] | + + + | Home Phone | | + + + | Preferred Language | Unknown | + + + | Marital Status | | + + + | Jew Affiliation | Unknown | + + + | Race | or | + + + | Ethnic Group | Not or | + + + Author + + + | Author | [facility] | | | and [place] | + + + | Organization | [facility] | | | and [...] [place] | | | | | [address] | | + + + + + | Greta Broncheau | ECON | [place] | | | | | [address] | | + + + + + Care Team Providers + +------+ + | Care Semiconductor Packages Sealer Name | Role | Phone | + +------+ + PCP | Unavailable | + +------+ + Encounter Details +--------+ + + + + | Date | Type | Department | Care Team | Description | +--------+ + + + + | 07/14/ | Hospital | [facility] | [place], | | | 2011 | Encounter | MED CTR XRAY [address] | Antonio Infante MD [address] | | | | | Marcial Sepulvedaa | [facility] | | | | | [place] [address] | [address] [place] | | | | | [phone] | [id number] | | | | | | | [...] | 03/25/20 | | | (VITAMIN D3) 00216 | mouth Once a week. | | | 12 | 4 | | UNITS CAPS | | | | | | + + + +---------+ + + | Coenzyme J93-Goej | one by mouth daily | | [...] documented as of this encounter Miscellaneous Notes Op Note - Antonio Renee MD - 07/14/2012 9:11 AM PDTDATE: 07/14/2012 [facility] PROCEDURE NOTE PROCEDURE: Left posterior iliac crest bone marrow biopsy and aspirate. After explaining risks and benefits of bone marrow biopsy and aspiration for evaluation of remission status after treatment for Burkitt's lymphoma and obtaining informed written cons ent, the patient was brought to the radiology suite. Time-out was taken. The patient and th e procedure were correctly carolyn ntified. She was placed in the prone position. Conscious sed ation was provided by Brenna Olivier, with 200 mcg of intravenous fentanyl and 4 mg of intravenous Versed. The left posterior iliac temi t was prepped and draped in the usual sterile manner, and additional local anesthesia was obtained wi 1% lidocaine. A left pos terior iliac crest bone marrow biopsy and aspirate were obtained without a ny adverse effec ts. DICTATED BY: Antonio Renee MD Oncology JOB #: [id number] EXT JOB #:[id number] <Electronicall y Signed by Antonio Renee MD> 07/14/12 1144 documented in this encounter Plan of Treatment Not on filedocumented as of this encounter Procedures + +--------+ + + + | Procedure Name | Priori | Date/Time | Associated Diagnosis | Comments | | | ty | | | | + +--------+ + + + | CT CHEST ABDOMEN W | | 07/14/2012 | | Results for this | | CONTRAST | | 9:11 AM | | procedure are in the | | | | PDT | | results section. | + +--------+ + + + documented in this encounter Results CT Chest Abdomen w Contrast (07/14/2012 9:11 AM PDT) + + | Specimen | + + | | + + + + + | Narrative | Performed At | + + + | [facility] | [facility] | | [address] [facility] | [facility] | | ENHANCED CT CHEST AND ABDOMEN, | DIAG IMG | | 07/14/2012 CLINICAL HISTORY: RESTAGING BURKITT'S LYMPHOMA, | | | MEASURE EXTENT OF DISEASE AND RESPONSE TO CHEMOTHERAPY. | | | COMPARISON: CT chest, abdomen and pelvis, 11/14/2011, CT abdomen and | | | pelvis 03/2011. TECHNIQUE: Axial images are performed | | | through the chest and abdomen following the uneventful intravenous | | | administration of 80 mL Isovue 370 contrast. Multiplanar | | | reformations are also performed. CHEST FINDINGS: An | | | implantable left subclavian port catheter is now present, ending at | | | the confluence of the brachiocephalic veins. The heart and thoracic | | | vasculature are otherwise unremarkable. Previously noted | | | mediastinal and hilar adenopathy has significantly improved compared | | | with the study of 11/14/2011. A right hilar node measuring 1.2 cm | | | in short axis on image 36 previously measured 2.8 cm. A node | | | adjacent to the distal descending aorta measuring 0.8 cm in short | | | axis on image 66 previously measured 2.9 cm. No newly enlarged nodes | | | are evident. There is no pneumothorax or pleural effusion. Small | | | subpleural blebs persist in the lung apices. Previously described | | | ill-defined opacities in the lungs have resolved in the interim, | | | with some mild residual coarse reticular opacity persisting in the | | | left upper lung. Subtle residual centrilobular ground glass | | | nodules are suggested in the upper lungs. No candi consolidation | | | or dominant mass is evident. Minimal dependent density in the lungs | | | favors atelectasis. There is stable band-like opacity in the | | | basilar lungs favoring atelectasis/scar. No central airway | | | abnormality is evident. There is generalized rightward thoracic | | | curvature and multilevel spondylosis. No lytic or blastic bone | | | lesion is identified. ABDOMEN FINDINGS: There is diffuse | | | hypoattenuation of the liver, consistent with fatty infiltration. | | | The gallbladder, spleen, pancreas, adrenal glands, and kidneys are | | | unremarkable. There is no hydronephrosis. There is diverticulosis | | | involving the imaged colon. Previously described colonic wall | | | thickening has resolved. No free air, free fluid, or hernia is | | | evident. Previously described conglomerate shani masses in the | | | mesentery and retroperitoneum have mostly resolved in the interim, | | | with mild residual stranding and subthreshold sized nodes now | | | evident in the imaged bowel mesentery. Tiny subthreshold sized nodes | | | are also present in the portacaval and imaged aortocaval regions. | | | There is multilevel lumbar spondylosis with minimal | | | anterolisthesis at the L4-5 level. No lytic or blastic bone lesion | | | is identified. IMPRESSION: 1. MARKED IMPROVEMENT IN | | | PREVIOUSLY DESCRIBED MEDIASTINAL, HILAR, MESENTERIC, AND | | | RETROPERITONEAL ADENOPATHY COMPARED WITH CT OF 11/14/2011, WITH SMALL | | | RESIDUAL NODES VISUALIZED IN THESE REGIONS. MILD RESIDUAL | | | STRANDING IS PRESENT IN THE IMAGED BOWEL MESENTERY WELL. | | | 2. INTERVAL RESOLUTION OF ILL-DEFINED PULMONARY OPACITIES DESCRIBED | | | PREVIOUSLY , WITH SUBTLE CENTRILOBULAR GROUND GLASS NODULES NOW | | | NOTED, POTENTIALLY REFLECTING SMALL AIRWAYS CENTERED INFECTION OR | | | INFLAMMATION. SMALL SUBPLEURAL BLEBS ARE AGAIN VISIBLE IN THE | | | APICES. 3. DIFFUSE HYPOATTENUATION OF THE LIVER, CONSISTENT | | | WITH FATTY INFILTRATION. 4. DIVERTICULOSIS INVOLVING THE IMAGED | | | COLON, WITH RESOLUTION OF PREVIOUSLY DESCRIBED BOWEL WALL | | | THICKENING. Dictated Date/Time: 07/14/2012 17:42 Transcribed | | | Date/Time: 07/14/2012 18:01 Manager Fitness: | | | <Electronically Signed by Moises Rodas MD> 07/14/12 2259 | | + + + + + | Procedure Note | + + | [place], Rad Conversion - 12/08/2013 6:00 PM [facility] | | Diagnostic Imaging Department | | [address] [facility] | | | | | | | | ENHANCED CT CHEST AND ABDOMEN, 07/14/2012 | | | | CLINICAL HISTORY: RESTAGING BURKITT'S LYMPHOMA, MEASURE EXTENT OF DISEASE AND | | RESPONSE TO CHEMOTHERAPY. | | | | COMPARISON: CT chest, abdomen and pelvis, 11/14/2011, CT abdomen and pelvis | | 03/2011. | | | | TECHNIQUE: Axial images are performed through the chest and abdomen following | | the uneventful intravenous administration of 80 mL Isovue 370 contrast. | | Multiplanar reformations are also performed. | | | | CHEST FINDINGS: An implantable left subclavian port catheter is now present, | | ending at the confluence of the brachiocephalic veins. The heart and thoracic | | vasculature are otherwise unremarkable. Previously noted mediastinal and hilar | | adenopathy has significantly improved compared with the study of 11/14/2011. A | | right hilar node measuring 1.2 cm in short axis on image 36 previously measured | | 2.8 cm. A node adjacent to the distal descending aorta measuring 0.8 cm in | | short axis on image 66 previously measured 2.9 cm. No newly enlarged nodes are | | evident. There is no pneumothorax or pleural effusion. Small subpleural blebs | | persist in the lung apices. Previously described ill-defined opacities in the | | lungs have resolved in the interim, with some mild residual coarse reticular | | opacity persisting in the left upper lung. Subtle residual centrilobular | | ground glass nodules are suggested in the upper lungs. No candi consolidation | | or dominant mass is evident. Minimal dependent density in the lungs favors | | atelectasis. There is stable band-like opacity in the basilar lungs favoring | | atelectasis/scar. No central airway abnormality is evident. There is | | generalized rightward thoracic curvature and multilevel spondylosis. No lytic | | or blastic bone lesion is identified. | | | | ABDOMEN FINDINGS: There is diffuse hypoattenuation of the liver, consistent | | with fatty infiltration. The gallbladder, spleen, pancreas, adrenal glands, and | | kidneys are unremarkable. There is no hydronephrosis. There is diverticulosis | | involving the imaged colon. Previously described colonic wall thickening has | | resolved. No free air, free fluid, or hernia is evident. Previously described | | conglomerate shani masses in the mesentery and retroperitoneum have mostly | | resolved in the interim, with mild residual stranding and subthreshold sized | | nodes now evident in the imaged bowel mesentery. Tiny subthreshold sized nodes | | are also present in the portacaval and imaged aortocaval regions. There is | | multilevel lumbar spondylosis with minimal anterolisthesis at the L4-5 level. | | No lytic or blastic bone lesion is identified. | | | | IMPRESSION: | | 1. MARKED IMPROVEMENT IN PREVIOUSLY DESCRIBED MEDIASTINAL, HILAR, MESENTERIC, | | AND RETROPERITONEAL ADENOPATHY COMPARED WITH CT OF 11/14/2011, WITH SMALL | | RESIDUAL NODES VISUALIZED IN THESE REGIONS. MILD RESIDUAL STRANDING IS PRESENT | | IN THE IMAGED BOWEL MESENTERY WELL. | | | | 2. INTERVAL RESOLUTION OF ILL-DEFINED PULMONARY OPACITIES DESCRIBED PREVIOUSLY | | , WITH SUBTLE CENTRILOBULAR GROUND GLASS NODULES NOW NOTED, POTENTIALLY | | REFLECTING SMALL AIRWAYS CENTERED INFECTION OR INFLAMMATION. SMALL SUBPLEURAL | | BLEBS ARE AGAIN VISIBLE IN THE APICES. | | | | 3. DIFFUSE HYPOATTENUATION OF THE LIVER, CONSISTENT WITH FATTY INFILTRATION. | | | | 4. DIVERTICULOSIS INVOLVING THE IMAGED COLON, WITH RESOLUTION OF PREVIOUSLY | | DESCRIBED BOWEL WALL THICKENING. | | | | Dictated Date/Time: 07/14/2012 17:42 | | Transcribed Date/Time: 07/14/2012 18:01 | | Manager Fitness: | | <Electronically Signed by Moises Rodas MD> 07/14/12 2259 | + + + +---------+ + + | Performing | Address | City/State/[facility] | Phone Number | | Organization | | | | + +---------+ + + | [facility] | | | | | [place] | | | | + +---------+ + + documented in this encounter Visit Diagnoses Not on filedocumented in this encounter"
--- OUTSIDE RECORDS SUMMARY | ~2020-06-17 | XMS | Encounter Summary ---
Demographics + + + | Address | [address] | | | [place] [address] | + + + | Home Phone | | + + + | Preferred Language | Unknown | + + + | Marital Status | Single | + + + | Orthodoxy Affiliation | NON | + + + | Race | or | + + + | Ethnic Group | Not or | + + + Author + + + | Author | [facility] | + + + | Organization | [facility] | + + + | Address | Unknown | + + + | Phone | Unavailable | + + + Support + + + + + | Name | Relationship | Address | Phone | + + + + + | Yue Fischer | ECON | [address] | | | | | [place] | | | | | [address] | | + + + + + | Greta Broncheau | ECON | Unknown | | + + + + + Care Team Providers + +------+ + | Care Carpenter Supervisor Wooden Ship Name | Role | Phone | + +------+ + | Becky Jennings | PCP | | + +------+ + Encounter Details +--------+ + + + + | Date | Type | Department | Care Team | Description | +--------+ + + + + | 12/11/ | Results | [facility] | Eunice Longo, | | | 2011 | Only | Hematologic | ANP [address] | | | | | Malignancies at [facility] | [address] | | | | | [address] | [place], [place] | | | | | Loop Mailcode: | [address] | | | | | [id number] | [phone] | | | | | [address] [place], | | | | | | [place] [address] | | | | | | [phone] | | | +--------+ + + + [...] | + +--------+ + + + | MAMMS OUTSIDE | Routin | 12/11/2011 | | Results for this | | COMPARISON | e | 3:04 PM | | procedure are in the | | | | PST | | results section. | + +--------+ + + + documented in this encounter Results MAMMS OUTSIDE COMPARISON (12/11/2011 3:04 PM PST) + + + + + + | Component | Value | Ref Range | Performed | Pathologist | | | | | At | Signature | + + + + + + | MAMMS | Last mammogram was | | | | | OUTSIDE | performed less than 1 | | | | | COMPARISON | month ago.Reason for | | | | | | exam: review of outside | | | | | | study. MAMMS OUTSIDE | | | | | | COMPARISON: December 11, | | | | | | 2011 - Accession | | | | | | #:[id number] study | | | | | | comparison: February 15, | | | | | | 2001, bilateral | | | | | | mammogram,performed at | | | | | | an outside facility.The | | | | | | breast tissue is almost | | | | | | entirely fat . Two | | | | | | left | | | | | | sub-areolar,well-cricums | | | | | | cribed, benign-appearing | | | | | | nodules are stable | | | | | | [id number]. No suspicious | | | | | | calcifications, masses, | | | | | | or | | | | | | architecturaldistortion | | | | | | present. No | | | | | | significant changes when | | | | | | compared withprior | | | | | | studies. ASSESSMENT: | | | | | | Benign - Category 2 | | | | | | RECOMMENDATION:Routine | | | | | | screening mammogram in 1 | | | | | | year. Attending | | | | | | Radiologists: RENETTA | | | | | | Clint HAQAuthor: Nasir | | | | | | Clint Cornejo I have | | | | | [...] HAQ | | | | | | 12/14/2011 16:04 PM | | | | + + + + + + + + | Specimen | + + | | + + + +---------+ + + | Performing | Address | City/State/Zipcode | Phone Number | | Organization | | | | + +---------+ + + | [facility] | | | | | RADIOLOGY | | | | + +---------+ + + documented in this encounter Visit Diagnoses Not on filedocumented in this encounter"
--- OUTSIDE RECORDS SUMMARY | ~2020-06-17 | XMS | Encounter Summary ---
Demographics + + + | Address | [address] | | | [place] [address] | + + + | Home Phone | | + + + | Preferred Language | Unknown | + + + | Marital Status | Single | + + + | Bahai Affiliation | NON | + + + | Race | or | + + + | Ethnic Group | Not or | + + + Author + + + | Author | [facility] [employer] [facility] | + + + | Organization | [facility] [employer] [facility] | + + + | Address | Unknown | + + + | Phone | Unavailable | + + + Support + + + + + | Name | Relationship | Address | Phone | + + + + + | Yue Fischer | ECON | [address] | | | | | [place] | | | | | [address] | | + + + + + | Greta Broncheau | ECON | Unknown | | + + + + + Care Team Providers + +------+ + | Care Construction Site Manager Name | Role | Phone | + +------+ + | Becky Jennings | PCP | | + +------+ + Encounter Details +--------+ + + + + | Date | Type | Department | Care Team | Description | +--------+ + + + + | 11/16/ | Results | LAB REFERRED TESTS | Other, Faculty | | | 2011 | Only | [address] [facility] | [phone] | | | | | [address] | | | | | | [place], [place] | | | | | | [address] | | | +--------+ + + + [...] + + | [facility] | [address] | [place], [place] | | | CARDIOLOGY | [facility] | [address] | | + + + + + documented in this encounter Visit Diagnoses Not on filedocumented in this encounter"
--- OUTSIDE RECORDS SUMMARY | ~2020-06-17 | XMS | Encounter Summary ---
Demographics + + + | Address | [address] | | | [place] [address] | + + + | Home Phone | | + + + | Preferred Language | Unknown | + + + | Marital Status | | + + + | Synagogue Affiliation | Unknown | + + + | Race | or | + + + | Ethnic Group | Not or | + + + Author + + + | Author | [facility] | | | and [place] | + + + | Organization | [facility] | | | and [place] [...] [place] | | | | | [address] | | + + + + + | Greta Broncheau | ECON | [place] | | | | | [address] | | + + + + + Care Team Providers + +------+ + | Care Metal Cleaner Name | Role | Phone | + +------+ + PCP | Unavailable | + +------+ + Encounter Details +--------+ + + + + | Date | Type | Department | Care Team | Description | +--------+ + + + + | 08/08/ | Abstract | PMG | Unknown, | | | 2011 | | Anti-Coagulation | MD Alex . | | | | | Clinic | [phone] | | | | | | | [...]
--- OUTSIDE RECORDS SUMMARY | ~2020-06-17 | XMS | Encounter Summary ---
Demographics + + + | Address | [address] | | | [place] [address] | + + + | Home Phone | | + + + | Preferred Language | Unknown | + + + | Marital Status | | + + + | Uatsdin Affiliation | Unknown | + + + | Race | or | + + + | Ethnic Group | Not or | + + + Author + + + | Author | [facility] | | | and [place] | + + + | Organization | [facility] | | | and [place] [...] [place] | | | | | [address] | | + + + + + | Greta Broncheau | ECON | [place] | | | | | [address] | | + + + + + Care Team Providers + +------+ + | Care Newspaper Writer Name | Role | Phone | + +------+ + PCP | Unavailable | + +------+ + Encounter Details +--------+ + + + + | Date | Type | Department | Care Team | Description | +--------+ + + + + | 01/27/ | Hospital | [facility] | Thelma, | | | 2011 - | Encounter | [facility] | Antonio Infante MD [address] | | | | | CENTER [address] | [facility] | | | 01/29/ | | [place] | [address] [place] | | | 2011 | | [address] | [id number] | | | | | [phone] | | | +--------+ + + + [...] documented as of this encounter Progress Notes Antonio Renee MD - 01/03/2012 2:20 AM PSTPROGRESS NOTE: January 25, 2012 PATIENT IDENTIFICATION: Frida Christian IDENTIFYING STATEMENT: Frida Crhistian is a 51-year-old woman from [place], [place], with Burkitt's lymphoma. ACTIVE DIAGNOSES: 1. Presentation in August 2001, with intractable searing abdominal pain. Symptoms progre ssed and on October 05, 2011, she underwent advanced imaging that demonstrated diffuse roverto gnant lymphadenopathy throughout the retroperitoneum. 2. Laparoscopic lymph node biopsy on November 10, 2011, at [facility], demonstrated a high grade B cell lymphoma, consistent with Burkitt's lymphoma, positive for BCL6, CD10, CD19, CD20, C D22, and kappa light chains. 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 3. Initiation of Rituxan/Hyper-CVAD chemotherapy at [facility] on November 15, 2011. CHIEF COMPLAINT: Frida [...] all without adverse effects. CC: JING Luis ([facility]) Dylan Wheatley M.D. ([facility]) <Electronically Signed by Antonio Renee MD> 01/29/12 1025 Antonio Renee MD - 01/03/2012 2:20 AM PSTPROGRESS NOTE: 01/04/2012 IDENTIFYING STATEMENT: Frida Christian is a 51-year-old woman from [place], [place] with Bu rkitt's lymphoma. ACTIVE DIAGNOSES: 1. Presentation in August 2011 with intractable abdominal pain described as "searing." Symptoms progressed. On October 05, 2011, she underwent advanced imaging demonstrating diffus e malignant lymphadenopathy throughout the retroperitoneum. 2. Laparoscopic lymph node biopsy on November 10, 2011 at [facility], demonstrating a high-grade B cell lymphoma consistent with Burkitt's lymphoma. Positive for bcl-6, CD10, CD19, CD20, C D22, and kappa light chains. 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 Ki67 fraction was greater than 90%. 3. Initiation of Rituxan/hyper-CVAD chemotherapy at [facility] on November 15, 2011. CHIEF COMPLAINT: [...] is examined in detail. The dressing is chronometer adjuster nically wet and adhesive has dissolved. NEUROLOGIC: [...] will be removed. CC: Dr. Dylan Martinez, [facility] JING Luis, [facility] <Electronically Signed by Antonio Renee MD> 01/05/12 1548 documented in this encounter Plan of Treatment [...] | | Phosphatase | | | [facility] | | [...] 9 | 7 - 18 mg/dL | [facility] [...] | >60Comment: For | >60 mL/min/A | [facility] | | | GFR | -Americans, | [...] + + | Performing | Address | City/State[facility] | Phone Number | | Organization | | | | + + + + + | [facility] | [address] | [place] | [phone] | | [facility] | | [address] | | | - LABORATORY | | | | + + + + + | [facility] | [address] | [place] | | | [facility] | | [address], [facility] | | | - LABORATORY | | | | + + + + + Lactate Dehydrogenase (01/28/2012 9:37 AM PDT) + +-------+ + + + | Component | Value | Ref Range | Performed | Pathologist | | | | | At | Signature | + +-------+ + + + | LDH TOTAL | 119 | 91 - 180 IU/L | [facility] | | | | | | [facility] | | | | | | MEDICAL [...] + | [facility] | [address] | [place], [place] | [phone] | | [facility] | | [address] | | | - LABORATORY | | | | + + + + + | [facility] | [address] | [place], [place] | | | [facility] | | [address], [facility] | | | - LABORATORY | | | | + + + + + CBC w/ Auto Differential (01/28/2012 9:37 AM PDT) + + + + + + | Component | Value | Ref Range | Performed | Pathologist | | | | | At | Signature | + + + + + + | White Blood | 0.3 (LL)Comment: @VALUE | 4.0 - 11.0 K/uL | [facility] | | | Cells | CONSISTENT WITH PREVIOUS | | [facility] | | | | RESULTS | | MEDICAL | | | | | | CENTER - | | | | | | LABORATORY | | + + + + + + | Red Blood | 2.78 (L) | 3.70 - 5.20 | [facility] | | | Cells | | M/uL | [facility] | | | | [...] | | | | 01/28/12 @0953 by LINDY | | | | | | @ [...] + + + + + | Total Cells | 25 | | [facility] | | [...] + | [facility] | [address] | [place] | [phone] | | [facility] | | [address] | | | - LABORATORY | | | | + + + + + | [facility] | [address] | [place] | | | [facility] | | [address], [facility] | | | - LABORATORY | | [...] | Code | PLATELETS-IRRADIATED | | [facility] | | | | | | MEDICAL | | | | | | CENTER - | | | | | | LABORATORY | | + + + + + + | UNIT # | [id number] | | [facility] | | | | [...] [address] | [place] | [phone] | | [facility] | | [address] | | | - LABORATORY | | | | + + + + + | [facility] | | | | | [facility] | | | | | - LABORATORY | | | | + + + + + CBC with Differential (01/25/2012 9:53 AM PDT) + + + + + + | Component | Value | Ref Range | Performed | Pathologist | | | | | At | Signature | + + + + + + | White Blood | 0.2 (LL) | 4.0 - 11.0 K/uL | [facility] | | | Cells | | | [facility] | | | | | | MEDICAL | | | | | | CENTER - | | | | | | LABORATORY | | + + + + + + | Red Blood | 2.39 (L) | 3.70 - 5.20 | [facility] | | | Cells | | M/uL | [facility] | | | | | | MEDICAL | | | | | | CENTER - | | | | | | LABORATORY | | + + + + + + | Hemoglobin | 7.3 (LL)Comment: | 11.5 - 16.0 | [facility] | | | | | gm/dL | [facility] | | | | ALERT VALUE | [...] | | | | | @1006 by WESSMA | | | | | | Clinical [...] by | | | | | | [facility] @ * READ BACK | | | [...] | [facility] | | | | Low Event [...] + | [facility] | [address] | [place], [place] | [phone] | | [facility] | | [address] | | | - LABORATORY | | | | + + + + + | [facility] | [address] | [place], [place] | | | [facility] | | [facility], [facility] | | | - LABORATORY | | [...] + | [facility] | [address] | [place] | [phone] | | [facility] | | [address] | | | - LABORATORY | | | | + + + + + | [facility] | [address] | [place] | | | [facility] | | [id number] | | | - LABORATORY | | [...] + | [facility] | [address] | [place], [place] | [phone] | | [facility] | | [address] | | | - LABORATORY | | | | + + + + + | [facility] | [address] | [place], [place] | | | [facility] | | [address] [place] [address] | | | - LABORATORY | | [...] ST. | [address] | [place] | [phone] | | [facility] | | [address] | | | - LABORATORY | | [...] | | Phosphatase | | | [facility] | | [...] | | | | | mg/dL | [facility] | | | | [...] + | [facility] | [address] | [place], [place] | [phone] | | [facility] | | [address] | | | - LABORATORY | | | | + + + + + | [facility] | [address] | [place], [place] | | | [facility] | | [id number] [place] [address] | | | - LABORATORY | | [...] + | [facility] | [address] | [place], [place] | [phone] | | [facility] | | [address] | | | - LABORATORY | | | | + + + + + | [facility] | [address] | [place] | | | [facility] | | [address] | | | - LABORATORY | | [...] + + + | UNIT # | [id number] | | [facility] | | | | [...] + | [facility] | [address] | [place] | [phone] | | [facility] | | [address] | | | - LABORATORY | | | | + + + + + | [facility] | | | | | [facility] | | | | | - [...] + + + | UNIT # | [id number] | | [facility] | | | | [...] | + + + + + | [facility] | [address] | [place], [place] | [phone] | | [facility] | | [address] | | | - LABORATORY | | | | + + + + + | [facility] | | | | | [facility] | | | | | - [...] + + + | UNIT # | [id number] | | [facility] | | | | [...] | Unit Status | TRANSFUSED | | [facility] | | | | | | [facility] [...] | [address] | [place] | [phone] | | [facility] | | [address] | | | - LABORATORY | | | | + + + + + | [facility] | | | | | [facility] | | | | | - [...] | | | | | | [facility] | | | | | | MEDICAL [...] (L) | 7 - 18 mg/dL | [facility] | | | | [...] | >60Comment: For | >60 mL/min/A | [facility] | | | GFR | -Americans, | [...] + | [facility] | [address] | [place], [place] | [phone] | | [facility] | | [address] | | | - LABORATORY | | | | + + + + + | [facility] | [address] | [place], [place] | | | [facility] | | [address], [facility] | | | - LABORATORY | | | | + + + + + Lactate Dehydrogenase (01/14/2012 10:00 AM PDT) + +-------+ + + + | Component | Value | Ref Range | Performed | Pathologist | | | | | At | Signature | + +-------+ + + + | LDH TOTAL | 174 | 91 - 180 IU/L | [facility] | | | | | [...] [address] | [place] | [phone] | | [facility] | | [address] | | | - LABORATORY | | | | + + + + + | [facility] | [address] | [place], [place] | | | [facility] | | [address] | | | - LABORATORY | | | | + + + + + CBC with Differential (01/14/2012 10:00 AM PDT) + + + + + + | Component | Value | Ref Range | Performed | Pathologist | | | | | At | Signature | + + + + + + | White Blood | 6.8 | 4.0 - 11.0 K/uL | [facility] | | | Cells | | | [facility] | | | | | | MEDICAL | | | | | | CENTER - | | | | | | LABORATORY | | + + + + + + | Red Blood | 3.06 (L) | 3.70 - 5.20 | [facility] | | | Cells | | M/uL | [facility] | | | | [...] 0.0 | 0.0 - 0.1 K/uL | [facility] [...] [address] | [place] | [phone] | | [facility] | | [address] | | | - LABORATORY | | | | + + + + + | [facility] | [address] | [place] | | | [facility] | | [address], [facility] | | | - LABORATORY | | | | + + + + + Comprehensive Metabolic Panel (01/04/2012 1:19 PM PST) + + + + + + | Component | Value | Ref Range | Performed | Pathologist | | | | | At | Signature | + + + + + + | Glucose | 106 | 70 - 109 mg/dL | [facility] | | | | | | [facility] [...] (L) | 7 - 18 mg/dL | [facility] | | | | | | [facility] | | | | | | MEDICAL | | | | | | CENTER - | | | | | | LABORATORY | | + + + + + + | Creatinine | 0.45 (L) | 0.60 - 1.30 | [facility] | | | | | mg/dL | [facility] | | | | | | MEDICAL | | | | | | CENTER - | | | | | | LABORATORY | | + + + + + + | Estimated | >60Comment: For | >60 mL/min/A | [facility] | | | GFR | -Americans, [...] + | [facility] | [address] | [place], [place] | [phone] | | [facility] | | [address] | | | - LABORATORY | | | | + + + + + | [facility] | [address] | [place], [place] | | | [facility] | | [address] | | | - LABORATORY | | | | + + + + + Lactate Dehydrogenase (01/04/2012 1:19 PM PST) + +-------+ + + + | Component | Value | Ref Range | Performed | Pathologist | | | | | At | Signature | + +-------+ + + + | LDH TOTAL | 158 | 91 - 180 IU/L | [facility] [...] + | [facility] | [address] | [place] | [phone] | | [facility] | | [address] | | | - LABORATORY | | | | + + + + + | [facility] | [address] | [place] | | | [facility] | | [address], [facility] | | | - LABORATORY | | | | + + + + + CBC with Differential (01/04/2012 1:19 PM PST) + + + + + + | Component | Value | Ref Range | Performed | Pathologist | | | | | At | Signature | + + + + + + | White Blood | 2.0 (LL) | 4.0 - 11.0 K/uL | [facility] | | | Cells | | | [facility] | | | | | | MEDICAL | | | | | | CENTER - | | | | | | LABORATORY | | + + + + + + | Red Blood | 3.08 (L) | 3.70 - 5.20 | [facility] | | | Cells | | M/uL | [facility] | | | | [...] | | Lymphocytes | | | [facility] | | | | | | MEDICAL [...] | | Eosinophils | | | [facility] | | [...] | [facility] | | | | Ly Blasts [...] | + + + + + | [facility] | [address] | [place] | [phone] | | [facility] | | [address] | | | - LABORATORY | | | | + + + + + | [facility] | [address] | [place], [place] | | | [facility] | | [phone] [place] [address] | | | - LABORATORY | | | | + + + + + documented in this encounter Visit Diagnoses Not on filedocumented in this encounter
--- OUTSIDE RECORDS SUMMARY | ~2020-06-17 | XMS | Encounter Summary ---
Demographics + + + | Address | [address] | | | [place] [address] | + + + | Home Phone | | + + + | Preferred Language | Unknown | + + + | Marital Status | | + + + | Christianity Affiliation | Unknown | + + + | Race | or | + + + | Ethnic Group | Not or | + + + Author + + + | Author | [facility] | | | and [place] | + + + | Organization | [facility] | | | and [place] | [...] [place] | | | | | [address] | | + + + + + | Greta [place]cheau | ECON | [place] | | | | | [address] | | + + + + + Care Team Providers + +------+ + | Care Audiology Technician Name | Role | Phone | + +------+ + | Becky Jennings | PCP | | + +------+ + Reason for Visit + +--------+ + | Reason | Onset | Comments | | | Date | | + +--------+ + | Appointment | 12/04/ | | | | 2013 | | + +--------+ + Encounter Details +--------+ + + + + | Date | Type | Department | Care Team | Description | +--------+ + + + + | 12/04/ | Telephone | [facility] | Vance Orta MD | Appointment | | 2013 | | GASTROENTEROLOGY | [address] | | | | | [address] | [address] [place] | | | | | [address] [place], [place] | [address] | | | | | [address] | | | | | | [phone] | | | +--------+ + + + [...] this encounter Miscellaneous Notes Telephone Encounter - Reba Au RN - 12/04/2013 1:53 PM PSTPatients sister Paty starks calls to r/s killian from 12/08/13 to 12/29/13. She has prep and instructions. She will call [employer] and tell them the change in date. documented in this encounter Plan of Treatment Not on filedocumented as of this encounter Visit Diagnoses Not on filedocumented in this encounter"
--- OUTSIDE RECORDS SUMMARY | ~2020-06-17 | XMS | Encounter Summary ---
Demographics + + + | Address | [address] | | | [place] [address] | + + + | Home Phone | | + + + | Preferred Language | Unknown | + + + | Marital Status | | + + + | Adventism Affiliation | Unknown | + + + | Race | or | + + + | Ethnic Group | Not or | + + + Author + + + | Author | [facility] | | | and [place] | + + + | Organization | [facility] | | | and [place] [...] [place] | | | | | [address] | | + + + + + | Greta Broncheau | ECON | [place] | | | | | [address] | | + + + + + Care Team Providers + +------+ + | Care Crucible Packer Name | Role | Phone | + +------+ + PCP | Unavailable | + +------+ + Encounter Details +--------+ + + + + | Date | Type | Department | Care Team | Description | +--------+ + + + + | 03/15/ | Hospital | [facility] | [place], | | | 2011 - | Encounter | MED CTR MED ONC | Antonio Infante MD [address] | | | | | [address] | [facility] | | | 03/20/ | | [place] [address] | [address] [place] | | | 2011 | | [phone] | [address] | | | | | | | [...] + + documented as of this encounter Discharge Summaries Antonio Renee MD - 03/15/2012 11:32 AM PDTADMISSION DATE: 03/15/2012 DISCHARGE DATE: 03/20/2012 ADMITTING DIAGNOSIS: Burkitt's lymphoma disease. DISCHARGE DIAGNOSES 1. BURKITT'S LYMPHOMA, STABLE. 2. CHEMOTHERAPY-INDUCED CARDIOMYOPATHY. CONSULTATIONS: Annetta Berry, Cardiology. PROCEDURES: Cycle number 3A of Rituxan/hyperCVAD. COMPLICATIONS: None. HOSPITAL COURSE: Frida Christian is a 51-year-old woman from [place], [place], with an estab lished susan gnosis of Burkitt's lymphoma, who was admitted to [facility] on 2 for cycle number 3A of Rituxan/hyper-CVAD immediately following an intrathecal injection of methotr exate. Cardiac echocardiogram performed just prior to admission was notable for a segmental wall m otion defe ct. This procedure was performed in the asymptomatic state as part of pharmaco-v igilance for her chem otherapy program. Because of this finding, Adriamycin was omitted fro m her cycle 3A of hyper-CVAD sofy motherapy, and she was and she was seen in consultation by Annetta Berry in cardiology, who recommended an SPECT MPI study. This is also known as a chemical stress test. Frida proceeded w ith the rest of her infusional chemot herapy with Rituxan/hyper-CVAD cycle 3A without Adriamycin as sh e underwent a cardiology e valuation. Chemotherapy was complicated by a perineal of the left great toe , and this was addressed with a prescription for Augmentin. Her chemical stress test was performed and demonstrated the exact same ejection fraction of 50% that was initially discovered by her echocardiogram. However, there were no perfusion defects to account f or the segmental wall motion abnormality seen on her echo. Therefore, the conclusion by Kristi, was that Frida's abnormal echo was due to nonis chemic cardiomyopathy, and she recommende d carvedilol plus an DWAYNE inhibitor. Frida went on to complete the rest of her course of Rituxan/hyper-CVAD cycle 3A without A driamycin and without any other complications. PHYSICAL EXAMINATION VITAL SIGNS: Blood pressure was 140/80, pulse was 70, respiratory rate 20, saturation of ox ygen was 9 7% on room air, temperature was 37 degrees Celsius, a 24-hour input was 6922 mL, 24-hour output was 9 525 mL. HEENT: Sclerae anicteric. The oropharynx was free of lesions. NECK: Supple without thyromegaly. LUNGS: Clear to auscultation. CARDIOVASCULAR: Regular rate and rhythm with a normal S1, normal S2 without rubs, gallops, murmurs. CHEST: Her left anterior chest Port-A-Cath was accessed throughout her hospitalization and had no ayaan thema or tenderness. ABDOMEN: Soft, nontender, nondistended, no hepatomegaly, no splenomegaly. No ascites. LYMPH NODE SURVEY: No cervical, supraclavicular, axillary, or inguinal lymphadenopathy. MUSCULOSKELETAL: Notable for the fact that the paronychia around left great toe had improve d markedly with treatment with Augmentin. SKIN: Without petechiae or ecchymoses. NEUROLOGIC: She was awake and alert. Face symmetric, voice articulate, and independent of a ll her act ivities in the hospital room, but emotionally was very distraught over the news that her nephew had d ied during her hospitalization. LABORATORY DATA: Hemoglobin 9.5, hematocrit 26%, platelet count 240,000, white count 4800, sodium 140 , potassium 4, chloride 106, CO2 25, BUN 13, creatinine 0.68, and glucose 94. DISCHARGE MEDICATIONS RECONCILIATION FORM 1. Ativan 1 mg every 4 hours as needed for nausea, anxiety, or restlessness. 2. Compazine 5-10 mg every 6 hours as needed for nausea. 3. Lomotil 2.5/0.025, one tablet as needed for diarrhea. 4. MiraLax 17 g orally as needed for constipation. 5. OxyContin 20 mg orally twice daily. 6. Prilosec 20 mg orally daily. 7. Senna one to two tablets every day as needed for constipation. 8. Vitamin D 50,000 unit s orally once a week. 9. Acyclovir 400 mg orally daily. 10. Augmentin 875 mg orally twice daily. 11. Coreg 3.125 mg orally twice daily. 12. Lisinopril 10 mg orally once daily. DISCHARGE PLAN: She will see Dr. Renee on , 03/24/2012, in the cancer center and Dr. Xochilt Polo in cardiology on 03/29/2012 for followup of her cardiomy opathy. DICTATED BY: Antonio Renee MD Oncology JOB #: [id number] EXT JOB #:[id number] <Electronicall y Signed by Antonio Renee MD> 06/23/12 0717 documented in this encounter H&P Notes Antonio Renee MD - 03/15/2012 11:32 AM PDTDATE: 03/15/2012 IDENTIFYING STATEMENT: Frida Christian is a 51-year-old woman from [place], [place] with Bur miguel lymph cornelia who was admitted on 03/15/2012 for cycle 3A of Rituxan/hyper CVAD chemothera py. HISTORY OF PRESENT ILLNESS 1. Presentation in 08/2011 with intractable searing abdominal pain. Symptoms progressed, an d on 10/05 she underwent advanced imaging that demonstrated diffuse malignant lymphad enopathy throughout t he retroperitoneum. 2. Laparoscopic lymph node biopsy on 11/10/2011 at the [facility] [place] [facility] a high-grade B-cell lymphoma consistent with Burkitt lymphoma positive for B cl-6, CD10, CD19, CD2 0, CD22, and kappa light chains. Ignacio-Palmer virus was positive by i n situ hybridization. Ki-67 frac tion was greater than 90%. 3. Initiation of Rituxan/hyper CVAD chemotherapy at the [facility] on 11/15. CHIEF COMPLAINT: Frida is now admitted to [facility] in [place], [place] on 03/15/2012, for cycle 3A of Rituxan/hyper CVAD after a substanti al treatment delay du e to renal failure from vancomycin toxicity following cycle 2B. REVIEW OF SYSTEMS CONSTITUTIONAL: Denies high fever, shaking chills, anorexia, nausea, vomiting, weight loss or night s weats. Denies any fatigue. ENMT: Denies odynophagia, dysphagia, tinnitus. CARDIOVASCULAR: Denies chest pains, palpitations or orthopnea. RESPIRATORY: Denies cough, hemoptysis or sputum production. GASTROINTESTINAL: Denies abdominal pain, constipation, diarrhea or bright blood per rectum. GENITOURINARY: Denies hematuria or dysuria. MUSCULOSKELETAL: Denies joint pain or tenderness. NEUROLOGIC: Denies headaches or visual changes. She currently denies any tinnitus. She has recently u ndergone a comprehensive audiology evaluation. Results are not available for rev iew. ENDOCRINE: Peripheral edema has completely resolved. HEMATOLOGIC: Denies spontaneous bruising or bleeding. PAST MEDICAL HISTORY: Notable for the fact that she had acute renal failure following vanco mycin [place] with cycle #2B of her chemotherapy. PAST SURGICAL HISTORY: section 1981, status post left anterior chest Port-A-Cath. PSYCHOSOCIAL HISTORY: She lives alone independently in [place], [place]. HABITS: Positive for tobacco use, positive for cannabis use. Positive for remote history of alcohol u se. FAMILY HISTORY: There is no history of cancer in first-degree relatives. ROUTINE MEDICATIONS 1. Acyclovir 400 mg orally once daily. 2. Amlodipine 10 mg orally 1 daily. 3. Lomotil 1 tablet after each loose stool as needed for diarrhea. 4. Vitamin D3 50,000 un its orally every week. 5. Ativan 1 mg every 4 hours as needed for nausea, anxiety or restlessness. 6. Prilosec 20 mg orally daily. 7. OxyContin has been reduced to 20 mg orally twice daily. 8. MiraLax 17 g orally as neede d for constipation. 9. Compazine 5-10 mg every 6 hours as needed for nausea. 10. Senna 1 to 2 tablets as neede d for constipation. 11. [place] 5/325 1-2 tablets every 6 hours as needed for pain. ALLERGIES: SHE HAD NEPHROTOXICITY FROM HER LAST EXPOSURE TO VANCOMYCIN. PHYSICAL EXAMINATION VITAL SIGNS: Blood pressure was 131/89, pulse 92, temperature is 36.5 degrees Celsius, satu ration of oxygen 97% on room air. Weight 77.7 kilograms. HEENT: Sclera is anicteric. The oropharynx is free of lesions. NECK: Supple without thyromegaly. LUNGS: Clear to auscultation. CARDIOVASCULAR: Regular rate and rhythm, normal S1, normal S2 without rubs, gallops or murm urs. CHEST: Left anterior chest Port-A-Cath is without surrounding tenderness or erythema. It wa s accessed with a Silver needle and a brisk blood return was documented. ABDOMEN: Soft, nontender, nondistended. Normoactive bowel sounds, no hepatomegaly, no splen omegaly, n o ascites. LYMPH NODE SURVEY: There is no cervical, supraclavicular, axillary, or inguinal lymphadenop athy. MUSCULOSKELETAL: Exam was notable for the absence of joint tenderness or swelling. SKIN: Without petechiae or ecchymoses. EXTREMITIES: Her lower extremity edema has completely resolved. NEUROLOGIC: Awake, alert. Face symmetric, voice articulate, station and gait within normal limits. LABORATORY DATA: Hemoglobin is 11, hematocrit 31.6%, platelet count 298,000, white count 89 00. Her co mprehensive metabolic panel is entirely within normal limits including a normal LDH of 150, upper ruelas its of normal is 180. Creatinine is now normal at 0.83. Potassium is normal at 3.7, total protein is normal at 6.5. Albumin is normal at 4. STUDIES: Echocardiogram was performed on 03/08/2012 and demonstrates an impaired ejection f raction of 50% due to segmental wall motion abnormality and mild hypokinesis of the mid ant eroseptal and distal anteroseptal divisions of the left ventricle. ASSESSMENT 1. BURKITT LYMPHOMA. 2. ACUTE RENAL FAILURE DUE TO VANCOMYCIN TOXICITY, RESOLVED. 3. 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 PLAN: Frida will be admitted to [facility] for cycle #2A of Rituxan/hyper CVAD chemotherapy. Just prior to her admission, she will undergo lumbar puncture and administration of 12 mg o f intrathecal methot rexate in Radiology. Frida's cardiac function is deemed to be insufficient for ongoing treatment with anthracy mckeon. The refore, Adriamycin will be discontinued and due to the segmental nature of her l eft ventricular dysfu nction she will be evaluated for cardiology for potential coronary ar odalys angiogram to identify any c linically significant coronary artery stenosis that may be amenable to intervention. PROCEDURE NOTE: Frida underwent a lumbar puncture by Dr. Moises Rodas in Radiology and I mares bsequently administered 12 mg of intrathecal methotrexate in preservative-free saline and e xtracted the needle without any adverse effects. DICTATED BY: Antonio Renee MD Oncology JOB #: [id number] EXT JOB #:[id number] EDITED: 03/16/2012 07:17 cc: MD Becky Ignacio FNP-C <Electronically Signed by Antonio Renee MD> 03/16/12 0747 documented in this encounter Procedure Notes Ankur Piedra MD - 03/15/2012 11:32 AM PDTDATE: 03/16/2012 TIME: 0917 Normal sinus rhythm with prolongation of the QTc interval and RSR' in lead V1. Poor R-wave progressio n with left axis deviation. Nonspecific lateral and inferior T-wave flattening. DICTATED BY: Ankur Piedra MD Internal Medicine JOB #: [id number] EXT JOB #:[id number] EDITED: 03/18/2012 13:13 cc: Antonio Renee MD <Electronically Signed by Ankur Piedra MD> 04/13/12 1038 documented in this encounter Consult Notes Endy Polo MD - 03/15/2012 11:32 AM PDTDATE: 03/16/2012 CONSULTING PHYSICIAN: Endy Polo MD, FACC, FACP, FASE, FASNC REASON FOR CONSULTATION: Chest pain with abnormal echocardiogram, rule out myocardial ische katia. HISTORY OF PRESENT ILLNESS: The patient is a 51-year-old female with a recent diagnosis of a Burkitt lymphoma, vancomycin-induced nephropathy and abnormal echocardiogram. The patient was admitted on to be started on chemotherapy to treat her Burkitt's lymphoma. The patient generally had been a very healthy individual all her life. She is a [place]. She usually enjoys outdoor activities. 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 Ynes ortiz denies any signific ant underlying medical problems in the past. She was doing well until 08/2011 when she developed a se carlton abdominal pain with a fluid retention. She underwent advanced imaging that reveals a diffuse mal ignant lymphadenopathy throughout the retroperi toneum. She underwent a laparoscopic lymph node biopsy in 11/2011 at [facility] which has shown a high-grade B cell lymphoma. She was given vancomycin to tr eat her pneumonia. She was informed that she has a vancomycin toxicity wit h an impairment to her kidney function tests. On 03/08/2012 the patient had echocardiogram done to get her ready for chemotherapy. Echoca rdiogram r evealed a segmental wall motion abnormality with moderate hypokinesis of the ant erior wall with LVEF of 50%. The patient herself mentioned that she has had some chest disc omfort off and on mainly when s he is resting. She has no chest pain on exertion. Her breat jhonny has been good. She has no palpitation s, dizziness or lightheadedness. She has no furt her ankle or leg swelling. PAST MEDICAL HISTORY 1. History of a recent diagnosis, high-grade B cell lymphoma. 2. History of vancomycin tox icity with acute renal failure. 3. History of smoking. ALLERGIES: SHE HAS NO KNOWN DRUG ALLERGIES. HOME MEDICATIONS: Include 1. Amlodipine 10 mg once a day. 2. Acyclovir 400 mg once a day. 3. Lomotil 1 tablet as needed. 4. Vitamin D3 50,000 units once a week. 5. Ativan 1 mg q.4 hours as needed. 6. Prilosec 20 mg once a day. 7. OxyContin 20 mg twice a day as needed. 8. Miralax 17 g as needed. 9. Compazine 5 to 10 mg every 6 hours as needed. 10. Senna 1 to 2 tablets as needed. 11. Derby [place] 5/325 one to two tablets as needed. PAST SURGICAL HISTORY: Unremarkable. SOCIAL HISTORY: Patient is . She has 6 children. She enjoys spending time outdoors. She used to smoke heavily but quit in 10/2011 after the diagnosis of lymphoma. She denies drinking and IVDA. REVIEW OF SYSTEMS: Patient denies any fever, chills, nausea and vomiting. There is no dizzi ness or li ghtheadedness. PHYSICAL EXAMINATION VITAL SIGNS: Blood pressure is 138/70 with a mean of 92 mmHg, heart rate of 100 beats per m inute, res piratory rate of 24 per minute, oxygen saturation of 94% on room air. GENERAL APPEARANCE: The patient is awake, alert, oriented, a pleasant individual. She is no t in any a cute distress. HEENT: Revealed that she is mildly anemic but no jaundice. NECK: No JVD. Carotid upstroke is normal with normal volume and normal run off. There is no carotid b ruits. CHEST: Reveals normal breath sounds. No adventitious sounds. A left PermCath in place. CARDIOVASCULAR: Reveals a normal PMI at the 5th intercostal space. Normal S1, S2. No S3, S4 . No murmu r heard. ABDOMEN: Soft. Bowel sounds positive. EXTREMITIES: Reveals no pitting edema, no cyanosis and no deformity. LABORATORY: WBC is 6.8, hemoglobin 10, hematocrit 28.1, platelet count of 244. Differential revealed 45% neutrophils, 33% lymphocytes, 10% monocytes. Sodium 143, potassium 3.3, chlor carolyn 110, bicarbonate 25, BUN 12, creatinine 0.78. EKG is pending. ASSESSMENT 1. ATYPICAL CHEST PAIN WITH ABNORMAL ECHOCARDIOGRAM WITHOUT MYOCARDIAL ISCHEMIA. A. Echoca rdiogram of 03/08/2012 reveals a normal left ventricular size and wall thickness. There is a segmental wall motion abnormality with moderate hypokinesis of the mid anteroseptal, dista l anterose ptal, and apex. LVEF is 50%, grade 1 left ventricular diastolic dysfunction and mild aortic valve reg urgitation and mild mitral valve regurgitation. B. Patient was electively admitted on 03/15/2012 to start the chemotherapy to treat her Bur miguel cell lymphoma. She reports some chest pain off and on at rest. Otherwise, patient has no signs or symptoms of worse congestive heart failure. She seems to be in class II of the NYHA Functional Class. There i s no leg swelling on the physical exam. 2. BURKITT LYMPHOMA. A. Patient is on chemotherapy. PLAN: Today I spent time at length talking with the patient about the natural course, treat ment and p rognosis of her atypical chest pain and abnormal echocardiogram. The patient is a candidate for a SPE CT MPI test to rule out myocardial ischemia. She has risk factors for coronary artery disease includi ng a history of smoking and a [place] heritage. Thank you kindly for allowing me to participate in your patient's care. DICTATED BY: Endy Polo MD, FACC, FACP, JOSE, BENJAMIN Cardiology JOB #: [id number] EXT JOB #:[id number] EDITED: 03/16/2012 13:58 cc: Antonio Renee MD <Electronically Signed by Endy Polo MD FACC FASE> 03/17/12 0634 documented in this encounter Plan of Treatment Not on filedocumented as of this encounter Procedures + +--------+ + + + | Procedure Name | Priori | Date/Time | Associated Diagnosis | Comments | | | ty | | | | + +--------+ + + + | CBC WITH | Routin | 03/19/2012 | | Results for this | | DIFFERENTIAL | e | 8:24 AM | | procedure are in the | | | | PDT | | results section. | + +--------+ + + + | BASIC METABOLIC | Routin | 03/19/2012 | | Results for this | | PANEL | e | 8:24 AM | | procedure are in the | | | | PDT | | results section. | + +--------+ + + + | CBC WITH | Routin | 03/18/2012 | | Results for this | | DIFFERENTIAL | e | 5:30 AM | | procedure are in the | | | | PDT | | results section. | + +--------+ + + + | MAGNESIUM | Routin | 03/18/2012 | | Results for this | | | e | 5:30 AM | | procedure are in the | | | | PDT | | results section. | + +--------+ + + + | BASIC METABOLIC | Routin | 03/18/2012 | | Results for this | | PANEL | e | 5:30 AM | | procedure are in the | | | | PDT | | results section. | + +--------+ + + + | CBC WITH | Routin | 03/17/2012 | | Results for this | | DIFFERENTIAL | e | 5:31 AM | | procedure are in the | | | | PDT | | results section. | + +--------+ + + + | MAGNESIUM | Routin | 03/17/2012 | | Results for this | | | e | 5:31 AM | | procedure are in the | | | | PDT | | results section. | + +--------+ + + + | BASIC METABOLIC | Routin | 03/17/2012 | | Results for this | | PANEL | e | 5:31 AM | | procedure are in the | | | | PDT | | results section. | + +--------+ + + + | CBC WITH | Routin | 03/16/2012 | | Results for this | | DIFFERENTIAL | e | 7:25 AM | | procedure are in the | | | | PDT | | results section. | + +--------+ + + + | BASIC METABOLIC | Routin | 03/16/2012 | | Results for this | | PANEL | e | 7:25 AM | | procedure are in the | | | | PDT | | results section. | + +--------+ + + + | FL LUMBAR PUNCTURE | | 03/15/2012 | | Results for this | | DIAGNOSTIC | | 11:32 AM | | procedure are in the | | | | PDT | | results section. | + +--------+ + + + | NM MYOCARDIAL | | 03/15/2012 | | Results for this | | PERFUSION MULT SPECT | | 11:32 AM | | procedure are in the | | | | PDT | | results section. | + +--------+ + + + documented in this encounter Results Basic Metabolic Panel (03/19/2012 8:24 AM PDT) + + + + + + | Component | Value | Ref Range | Performed | Pathologist | | | | | At | Signature | + + + + + + | Glucose | 84 | 70 - 109 mg/dL | [facility] [...] + + + + | BUN | 13 | 7 - 18 mg/dL | [facility] | | | | | | [facility] | | | | | [facility] | | | | | [facility] - | | | | | | LABORATORY | | + + + + + + | Creatinine | 0.68 | 0.60 - 1.30 | [facility] | | | | | mg/dL | [facility] | | | | | [facility] | | | | | | [facility] - | | | | | | LABORATORY | | + + + + + + | Estimated | >60Comment: For | >60 mL/min/A | [facility] | | | GFR | -Americans, | [...] + + + + | BUN/Creatin | 19.1 | 12 - 20 | [facility] | | | ine Ratio | | | [facility] | | | | | [facility] | | | | | | [facility] - | | | | | | LABORATORY | | + + + + + + | Na | 140 | 136 - 149 mEq/L | [facility] | | | | | | [facility] | | | | | | [facility] | | | | | | [facility] - | | | | | | LABORATORY | | + + + + + + | K | 4.0 | 3.5 - 5.1 mEq/l | [facility] | | | | | | [facility] | | | | | | [facility] | | | | | | [facility] - | | | | | | LABORATORY | | + + + + + + | Cl | 106 | 98 - 109 mEq/l | [facility] [...] + + + | Anion Gap | 13.0 | 6.0 - 17.0 | [facility] | [...] + | [facility] | [address] | [place], [place] | [phone] | | [facility] | | [id number] | | | - LABORATORY | | | | + + + + + | [facility] | [address] | [place], [place] | | | [facility] | | [phone], [facility] | | | - LABORATORY | | | | + + + + + CBC with Differential (03/19/2012 8:24 AM PDT) + + + + + + | Component | Value | Ref Range | Performed | Pathologist | | | | | At | Signature | + + + + + + | White Blood | 4.8 (A) | 4.0 - 11.0 K/uL | [facility] | | | Cells | | | [facility] | | | | | | [facility] | | | | | | [facility] - | | | | | | LABORATORY | | + + + + + + | Red Blood | 2.91 (L) | 3.70 - 5.20 | [facility] | | | Cells | | M/uL | [facility] | | | | | | [facility] | | | | | | [facility] - | | | | | | LABORATORY | | + + + + + + | Hemoglobin | 9.5 (L) | 11.5 - 16.0 | [facility] | | | | | gm/dL | [facility] | | | | | | [facility] | | | | | | [facility] - | | | | | | LABORATORY | | + + + + + + | Hematocrit | 26.0 (L) | 34.0 - 47.0 % | [facility] | | | | | | [facility] | | | | | | [facility] | | | | | | [facility] - | | | | | | LABORATORY | | + + + + + + | MCV | 89.3 | 83.0 - 101.0 fL | [facility] | | | | | | [facility] | | | | | | [facility] | | | | | | [facility] - | | | | | | LABORATORY | | + + + + + + | MCH | 32.6 | 28.0 - 35.0 pg | [facility] | | | | | | [facility] | | | | | | [facility] - | | | | | | LABORATORY | | + + + + + + | MCHC | 36.5 (H) | 32.0 - 36.0 | [facility] | | | | | g/dL | [facility] | | | | | | [facility] | | | | | | C[facility] - | | | | | | LABORATORY | | + + + + + + | RDW-CV | 15.2 (H) | <15.0 % | [facility] | | | | | | [facility] | | | [facility] | | [facility] | | | | | | [facility] - | | | | | | LABORATORY | | + + + + + + | Platelet | 236 | 140 - 440 K/uL | [facility] | | | Count | | | [facility] | | | | | | [facility] | | | | | | [facility] - | | | | | | LABORATORY | | + + + + + + | % | 65.2 | 45 - 75 % | [facility] | | | Neutrophils | | | [facility] | | | | | | [facility] | | | | | | C[facility] - | | | | | | LABORATORY | | + + + + + + | % | 25.8 | 20 - 45 % | [facility] | | | Lymphocytes | | | [facility] | | | | | | [facility] | | | | | | C[facility] - | | | | | | LABORATORY | | + + + + + + | % Monocytes | 7.5 | 4 - 12 % | [facility] [...] + + + + | Absolute | 3.1 | 1.5 - 6.6 K/uL | [facility] | | | Neutrophils | | | [facility] | | | | | | [facility] | | | | | | C[facility] - | | | | | | LABORATORY | | + + + + + + | Absolute | 1.2 | 0.6 - 3.2 K/uL | [facility] | | | Lymphocytes | | | [facility] | | | | | | [facility] | | | | | | C[facility] - | | | | | | LABORATORY | | + + + + + + | Absolute | 0.4 | 0.0 - 1.0 K/uL | [facility] [...] + | [facility] | [address] | [place], [place] | [phone] | | [facility] | | [id number] | | | - LABORATORY | | | | + + + + + | [facility] | [address] | [place], [place] | | | [facility] | | [phone], [facility] | | | - LABORATORY | | | | + + + + + Basic Metabolic Panel (03/18/2012 5:30 AM PDT) + + + + + + | Component | Value | Ref Range | Performed | Pathologist | | | | | At | Signature | + + + + + + | Glucose | 94 | 70 - 109 mg/dL | [facility] | | | | | | [facility] | | | | | [facility] | | | | | | [facility] - | | | | | | LABORATORY | | + + + + + + | Calcium | 8.7 | 8.3 - 10.5 | [facility] | | | | | mg/dL | [facility] | | | | | | [facility] | | | | | | C[facility] - | | | | | | LABORATORY | | + + + + + + | BUN | 13 | 7 - 18 mg/dL | [facility] | | | | | | [facility] | | | [facility] | [facility] | | | | | | C[facility] - | | | | | | LABORATORY | | + + + + + + | Creatinine | 0.67 | 0.60 - 1.30 | [facility] | [...] | GFR | -Americans, | | [facility] | | | | please multiply [...] + + + + | BUN/Creatin | 19.4 | 12 - 20 | [facility] | | | ine Ratio | | | [facility] | | | | | | MEDICAL | | | | | | CENTER - | | | | | | LABORATORY | | + + + + + + | Na | 139 | 136 - 149 mEq/L | [facility] [...] + + + + | Cl | 108 | 98 - 109 mEq/l | [facility] [...] + + + | Anion Gap | 9.7 | 6.0 - 17.0 | [facility] | [...] [address] | [place] | [phone] | | [facility] | | [address] | | | - LABORATORY | | | | + + + + + | [facility] | [address] | [place], [place] | | | [facility] | | [id number] | | | - LABORATORY | | | | + + + + + Magnesium (03/18/2012 5:30 AM PDT) + +-------+ + + + | Component | Value | Ref Range | Performed | Pathologist | | | | | At | Signature | + +-------+ + + + | Magnesium | 2.0 | 1.8 - 2.5 mg/dL | [facility] | | | | [...] + | [facility] | [address] | [place], [place] | [phone] | | [facility] | | [address] | | | - LABORATORY | | | | + + + + + | [facility] | [address] | [place], [place] | | | [facility] | | [id number] [place] [address] | | | - LABORATORY | | | | + + + + + CBC with Differential (03/18/2012 5:30 AM PDT) + + + + + + | Component | Value | Ref Range | Performed | Pathologist | | | | | At | Signature | + + + + + + | White Blood | 6.7 (A) | 4.0 - 11.0 K/uL | [facility] | | | Cells | | | [facility] | | | | | [facility] | | | | | | C[facility] - | | | | | | LABORATORY | | + + + + + + | Red Blood | 2.95 (L) | 3.70 - 5.20 | [facility] | | | Cells | | M/uL | [facility] | | | | | | [facility] | | | | | | CENTER - | | | | | | LABORATORY | | + + + + + + | Hemoglobin | 9.7 (L) | 11.5 - 16.0 | [facility] | | | | | gm/dL | [facility] | | | | | | [facility] | | | | | | C[facility] - | | | | | | LABORATORY | | + + + + + + | Hematocrit | 26.2 (L) | 34.0 - 47.0 % | [facility] | | | | | | [facility] | | | | | | MEDICAL | | | | | | CENTER - | | | | | | LABORATORY | | + + + + + + | MCV | 89.0 | 83.0 - 101.0 fL | [facility] | | | | | | [facility] | | | [facility] | [facility] | | | | | | C[facility] - | | | | | | LABORATORY | | + + + + + + | MCH | 32.8 | 28.0 - 35.0 pg | [facility] | | | | | | [facility] | | | | | | [facility] | | | | | | CENTER - | | | | | | LABORATORY | | + + + + + + | MCHC | 36.8 (H) | 32.0 - 36.0 | [facility] | | | | | g/dL | [facility] | | | | | | MEDICAL | | | | | | CENTER - | | | | | | LABORATORY | | + + + + + + | RDW-CV | 15.3 (H) | <15.0 % | [facility] | | | | | | [facility] | | | | | | MEDICAL | | | | | | CENTER - | | | | | | LABORATORY | | + + + + + + | Platelet | 234 | 140 - 440 K/uL | [facility] | | | Count | | | [facility] | | | | | | MEDICAL | | | | | | CENTER - | | | | | | LABORATORY | | + + + + + + | % | 69.1 | 45 - 75 % | [facility] | | | Neutrophils | | | [facility] | | | | | | MEDICAL | | | | | | CENTER - | | | | | | LABORATORY | | + + + + + + | % | 23.1 | 20 - 45 % | [facility] | | | Lymphocytes | | | [facility] | | | | | | MEDICAL | | | | | | CENTER - | | | | | | LABORATORY | | + + + + + + | % Monocytes | 7.1 | 4 - 12 % | [facility] | | | | | | [facility] | | [facility] | [facility] | | | | | | CENTER - | | | | | | LABORATORY | | + + + + + + | % | 0.2 | 0 - 5 % | [facility] | | | Eosinophils | | | [facility] | | | | | | MEDICAL | | | | | | CENTER - | | | | | | LABORATORY | | + + + + + + | % Basophils | 0.5 | 0 - 1 % | [facility] | | | | | | [facility] | | | [facility] | [facility] | | | | | | C[facility] - | | | | | | LABORATORY | | + + + + + + | Absolute | 4.6 | 1.5 - 6.6 K/uL | [facility] | | | Neutrophils | | | [facility] | | | | | | MEDICAL | | | | | | CENTER - | | | | | | LABORATORY | | + + + + + + | Absolute | 1.6 | 0.6 - 3.2 K/uL | [facility] [...] | | Monocytes | | | [facility] | | | | | | MEDICAL [...] + | [facility] | [address] | [place], [place] | [phone] | | [facility] | | [address] | | | - LABORATORY | | | | + + + + + | [facility] | [address] | [place], [place] | | | [facility] | | [id number] | | | - LABORATORY | | | | + + + + + Basic Metabolic Panel (03/17/2012 5:31 AM PDT) + + + + + + | Component | Value | Ref Range | Performed | Pathologist | | | | | At | Signature | + + + + + + | Glucose | 114 (H) | 70 - 109 mg/dL | [facility] | | | | | | [facility] | | | | | | MEDICAL | | | | | | CENTER - | | | | | | LABORATORY | | + + + + + + | Calcium | 9.1 | 8.3 - 10.5 | [facility] | | | | | mg/dL | [facility] | | | | | | MEDICAL | | | | | | CENTER - | | | | | | LABORATORY | | + + + + + + | BUN | 9 | 7 - 18 mg/dL | [facility] | | | | | | [facility] | | | | | | MEDICAL | | | | | | CENTER - | | | | | | LABORATORY | | + + + + + + | Creatinine | 0.72 | 0.60 - 1.30 | [facility] | | | | | mg/dL | [facility] | | | | | | MEDICAL | | | | | | CENTER - | | | | | | LABORATORY | | + + + + + + | Estimated | >60Comment: For | >60 mL/min/A | [facility] | | | GFR | -Americans, | [...] + + + + | BUN/Creatin | 12.5 | 12 - 20 | [facility] | | | ine Ratio | | | [facility] | | | | | | MEDICAL | | | | | | CENTER - | | | | | | LABORATORY | | + + + + + + | Na | 138 | 136 - 149 mEq/L | [facility] [...] + + + + | Cl | 113 (H) | 98 - 109 mEq/l | [facility] [...] + + + | Anion Gap | 3.6 (L) | 6.0 - 17.0 | [facility] | [...] + | [facility] | [address] | [place] | [phone] | | [facility] | | [address] | | | - LABORATORY | | | | + + + + + | [facility] | [address] | [place], [place] | | | [facility] | | [address], [facility] | | | - LABORATORY | | | | + + + + + Magnesium (03/17/2012 5:31 AM PDT) + +---------+ + + + | Component | Value | Ref Range | Performed | Pathologist | | | | | At | Signature | + +---------+ + + + | Magnesium | 1.4 (L) | 1.8 - 2.5 mg/dL | [facility] | | | | [...] [address] | [place] | [phone] | | [facility] | | [address] | | | - LABORATORY | | | | + + + + + | [facility] | [address] | [place] | | | [facility] | | [address] | | | - LABORATORY | | | | + + + + + CBC with Differential (03/17/2012 5:31 AM PDT) + + + + + + | Component | Value | Ref Range | Performed | Pathologist | | | | | At | Signature | + + + + + + | White Blood | 7.6 (A) | 4.0 - 11.0 K/uL | [facility] | | | Cells | | | [facility] | | | | | | MEDICAL | | | | | | CENTER - | | | | | | LABORATORY | | + + + + + + | Red Blood | 3.00 (L) | 3.70 - 5.20 | [facility] | | | Cells | | M/uL | [facility] | | | | | | MEDICAL | | | | | | CENTER - | | | | | | LABORATORY | | + + + + + + | Hemoglobin | 9.9 (L) | 11.5 - 16.0 | [facility] | | | | | gm/dL | [facility] | | | | | | MEDICAL | | | | | | CENTER - | | | | | | LABORATORY | | + + + + + + | Hematocrit | 26.9 (L) | 34.0 - 47.0 % | [facility] | | | | | | [facility] | | | | | | MEDICAL | | | | | | CENTER - | | | | | | LABORATORY | | + + + + + + | MCV | 89.4 | 83.0 - 101.0 fL | [facility] | | | | | | [facility] | | | | | | MEDICAL | | | | | | CENTER - | | | | | | LABORATORY | | + + + + + + | MCH | 32.9 | 28.0 - 35.0 pg | [facility] | | | | | | [facility] | | | | | | MEDICAL | | | | | | CENTER - | | | | | | LABORATORY | | + + + + + + | MCHC | 36.8 (H) | 32.0 - 36.0 | [facility] | | | | | g/dL | [facility] | | | | | | MEDICAL | | | | | | CENTER - | | | | | | LABORATORY | | + + + + + + | RDW-CV | 15.2 (H) | <15.0 % | [facility] | | | | | | [facility] | | | | | | MEDICAL | | | | | | CENTER - | | | | | | LABORATORY | | + + + + + + | Platelet | 242 | 140 - 440 K/uL | [facility] | | | Count | | | [facility] | | | | | | MEDICAL | | | | | | CENTER - | | | | | | LABORATORY | | + + + + + + | % | 62.6 | 45 - 75 % | [facility] | | | Neutrophils | | | [facility] | | | | | | MEDICAL | | | | | | CENTER - | | | | | | LABORATORY | | + + + + + + | % | 26.0 | 20 - 45 % | [facility] | | | Lymphocytes | | | [facility] | | | | | | MEDICAL | | | | | | CENTER - | | | | | | LABORATORY | | + + + + + + | % Monocytes | 11.1 | 4 - 12 % | [facility] | | | | | | [facility] | | | | | | MEDICAL | | | | | | CENTER - | | | | | | LABORATORY | | + + + + + + | % | 0.1 | 0 - 5 % | [facility] | | | Eosinophils | | | [facility] | | | | | | MEDICAL | | | | | | CENTER - | | | | | | LABORATORY | | + + + + + + | % Basophils | 0.2 | 0 - 1 % | [facility] | | | | | | [facility] | | | | | | MEDICAL | | | | | | CENTER - | | | | | | LABORATORY | | + + + + + + | Absolute | 4.7 (A) | 1.5 - 6.6 K/uL | [facility] [...] + + + + | Absolute | 0.8 | 0.0 - 1.0 K/uL | [facility] | | | Monocytes | | | [facility] | | | | | | MEDICAL | | | | | | CENTER - | | | | | | LABORATORY | | + + + + + + | Absolute | 0.0 | 0.0 - 0.4 K/uL | [facility] | | | Eosinophils | | | [...] [address] | [place] | [phone] | | [facility] | | [address] | | | - LABORATORY | | | | + + + + + | [facility] | [address] | [place] | | | [facility] | | [address], [facility] | | | - LABORATORY | | | | + + + + + Basic Metabolic Panel (03/16/2012 7:25 AM PDT) + + + + + + | Component | Value | Ref Range | Performed | Pathologist | | | | | At | Signature | + + + + + + | Glucose | 96 | 70 - 109 mg/dL | [facility] [...] + + + + | Creatinine | 0.78 | 0.60 - 1.30 | [facility] | | | | | mg/dL | [facility] | | | | | | MEDICAL | | | | | | CENTER - | | | | | | LABORATORY | | + + + + + + | Estimated | >60Comment: For | >60 mL/min/A | [facility] | | | GFR | -Americans, | [...] + + + + | BUN/Creatin | 15.4 | 12 - 20 | [facility] | | | ine Ratio | | | [facility] | | | | | | MEDICAL | | | | | | CENTER - | | | | | | LABORATORY | | + + + + + + | Na | 143 | 136 - 149 mEq/L | [facility] | | | | | | [facility] | | | | | | MEDICAL | | | | | | CENTER - | | | | | | LABORATORY | | + + + + + + | K | 3.3 (L) | 3.5 - 5.1 mEq/l | [facility] | | | | | | [facility] | | | | | | MEDICAL | | | | | | CENTER - | | | | | | LABORATORY | | + + + + + + | Cl | 110 (H) | 98 - 109 mEq/l | [facility] [...] + + + | Anion Gap | 11.3 | 6.0 - 17.0 | [facility] | [...] + | [facility] | [address] | [place], [place] | [phone] | | [facility] | | [address] | | | - LABORATORY | | | | + + + + + | [facility] | [address] | [place], [place] | | | [facility] | | [address] [place] [address] | | | - LABORATORY | | | | + + + + + CBC with Differential (03/16/2012 7:25 AM PDT) + + + + + + | Component | Value | Ref Range | Performed | Pathologist | | | | | At | Signature | + + + + + + | White Blood | 6.8 (A) | 4.0 - 11.0 K/uL | [facility] | | | Cells | | | [facility] | | | | | | MEDICAL | | | | | | CENTER - | | | | | | LABORATORY | | + + + + + + | Red Blood | 3.12 (L) | 3.70 - 5.20 | [facility] | | | Cells | | M/uL | [facility] | | | | | | MEDICAL | | | | | | CENTER - | | | | | | LABORATORY | | + + + + + + | Hemoglobin | 10.0 (L) | 11.5 - 16.0 | [facility] | | | | | gm/dL | [facility] | | | | | | MEDICAL | | | | | | CENTER - | | | | | | LABORATORY | | + + + + + + | Hematocrit | 28.1 (L) | 34.0 - 47.0 % | [...] + + + + | MCH | 32.1 | 28.0 - 35.0 pg | [facility] | | | | | | [facility] | | | | | | MEDICAL | | | | | | CENTER - | | | | | | LABORATORY | | + + + + + + | MCHC | 35.8 | 32.0 - 36.0 | [facility] | | | | | g/dL | [facility] | | | | | | MEDICAL | | | | | | CENTER - | | | | | | LABORATORY | | + + + + + + | RDW-CV | 15.4 (H) | <15.0 % | [facility] | | | | | | [facility] | | | | | | MEDICAL | | | | | | CENTER - | | | | | | LABORATORY | | + + + + + + | Platelet | 244 | 140 - 440 K/uL | [facility] | | | Count | | | [facility] | | | | | | MEDICAL | | | | | | CENTER - | | | | | | LABORATORY | | + + + + + + | % | 45.1 | 45 - 75 % | [facility] | | | Neutrophils | | | [facility] | | | | | | MEDICAL | | | | | | CENTER - | | | | | | LABORATORY | | + + + + + + | % | 33.2 | 20 - 45 % | [facility] | | | Lymphocytes | | | [facility] | | | | | | MEDICAL | | | | | | CENTER - | | | | | | LABORATORY | | + + + + + + | % Monocytes | 10.2 | 4 - 12 % | [facility] | | | | | | [facility] | | | | | | MEDICAL | | | | | | CENTER - | | | | | | LABORATORY | | + + + + + + | % | 10.6 (H) | 0 - 5 % | [facility] | | | Eosinophils | | | [facility] | | | | | | MEDICAL | | | | | | CENTER - | | | | | | LABORATORY | | + + + + + + | % Basophils | 0.9 | 0 - 1 % | [facility] | | | | | | [facility] | | | | | | MEDICAL | | | | | | CENTER - | | | | | | LABORATORY | | + + + + + + | Absolute | 3.1 | 1.5 - 6.6 K/uL | [facility] | | | Neutrophils | | | [facility] | | | | | | MEDICAL | | | | | | CENTER - | | | | | | LABORATORY | | + + + + + + | Absolute | 2.3 | 0.6 - 3.2 K/uL | [facility] [...] + + + | Absolute | 0.7 (H) | 0.0 - 0.4 K/uL | [...] | | | Basophils | | | [facility] | | [...] + | [facility] | [address] | [place] | [phone] | | [facility] | | [address] | | | - LABORATORY | | | | + + + + + | [facility] | [address] | [place], [place] | | | [facility] | | [address], [facility] | | | - LABORATORY | | | | + + + + + FL Lumbar Puncture (03/15/2012 11:32 AM PDT) + + | Specimen | + + | | + + + + + | Narrative | Performed At | + + + | [facility] Diagnostic Imaging Department | [facility] | | [address] [facility] | [facility] | | FLUOROSCOPY GUIDED LUMBAR | DIAG IMG | | PUNCTURE FOR INTRATHECAL CHEMOTHERAPY ADMINISTRATION, 03/15/2012 | | | CLINICAL HISTORY: BURKITT TUMOR. LUMBAR PUNCTURE REQUESTED FOR | | | INTRATHECAL CHEMOTHERAPY ADMINISTRATION. COMPARISON: Images | | | from lumbar puncture 01/14/2012 and 12/25/2011, CT chest, abdomen | | | and pelvis 11/14/2011. PROCEDURE: After explaining the | | | potential risks and benefits of the procedure to the patient, verbal | | | and written consent were obtained. With the patient in the prone | | | position, fluoroscopy was utilized to identify a suitable site for | | | lumbar puncture at the L3 level. The overlying skin was prepped and | | | draped in sterile fashion, and approximately 5 mL of 1% lidocaine | | | utilized for local anesthesia with fluoroscopic guidance. A | | | 22-gauge, 3.5-inch spinal needle was subsequently advanced into the | | | thecal sac without difficulty at the L3 level utilizing a left | | | dorsal, intralaminar approach. There was immediate return of clear | | | cerebrospinal fluid through the needle. Spot image was saved to | | | document needle positioning. Dr. Renee was present, and | | | subsequently administered the chemotherapeutic agent through the | | | needle without difficulty. The needle was removed, and hemostasis | | | assured at the puncture site with direct manual compression. The | | | patient tolerated the procedure well, and there were no immediate | | | complications. She was transferred from the department in stable | | | condition. IMPRESSION: 1. TECHNICALLY SUCCESSFUL, | | | FLUOROSCOPICALLY GUIDED LUMBAR PUNCTURE FOR INTRATHECAL CHEMOTHERAPY | | | ADMINISTRATION, DESCRIBED. Dictated Date/Time: 03/15/2012 | | | 13:37 Transcribed Date/Time: 03/15/2012 13:48 Napper Fixer: | | | <Electronically Signed by Moises Rodas MD> 03/15/12 2140 | | + + + + + | Procedure Note | + + | Germain, Rad Conversion - 12/08/2013 5:20 PM [facility] | | Diagnostic Imaging Department | | [address] [facility] | | | | | | | | FLUOROSCOPY GUIDED LUMBAR PUNCTURE FOR INTRATHECAL CHEMOTHERAPY ADMINISTRATION, | | 03/15/2012 | | | | CLINICAL HISTORY: BURKITT TUMOR. LUMBAR PUNCTURE REQUESTED FOR INTRATHECAL | | CHEMOTHERAPY ADMINISTRATION. | | | | COMPARISON: Images from lumbar puncture 01/14/2012 and 12/25/2011, CT chest, | | abdomen and pelvis 11/14/2011. | | | | PROCEDURE: After explaining the potential risks and benefits of the procedure | | to the patient, verbal and written consent were obtained. With the patient in | | the prone position, fluoroscopy was utilized to identify a suitable site for | | lumbar puncture at the L3 level. The overlying skin was prepped and draped in | | sterile fashion, and approximately 5 mL of 1% lidocaine utilized for local | | anesthesia with fluoroscopic guidance. A 22-gauge, 3.5-inch spinal needle was | | subsequently advanced into the thecal sac without difficulty at the L3 level | | utilizing a left dorsal, intralaminar approach. There was immediate return of | | clear cerebrospinal fluid through the needle. Spot image was saved to document | | needle positioning. Dr. Renee was present, and subsequently administered | | the chemotherapeutic agent through the needle without difficulty. The needle | | was removed, and hemostasis assured at the puncture site with direct manual | | compression. The patient tolerated the procedure well, and there were no | | immediate complications. She was transferred from the department in stable | | condition. | | | | IMPRESSION: | | 1. TECHNICALLY SUCCESSFUL, FLUOROSCOPICALLY GUIDED LUMBAR PUNCTURE FOR | | INTRATHECAL CHEMOTHERAPY ADMINISTRATION, DESCRIBED. | | | | Dictated Date/Time: 03/15/2012 13:37 | | Transcribed Date/Time: 03/15/2012 13:48 | | Napper Fixer: | | <Electronically Signed by Moises Rodas MD> 03/15/12 2140 | + + + +---------+ + + | Performing | Address | City/State/Zipcode | Phone Number | | Organization | | | | + +---------+ + + | [place] | | | | | [facility] | | | | + +---------+ + + NM Myocardial Perfusion Mult SPECT (03/15/2012 11:32 AM PDT) + + | Specimen | + + | | + + + + + | Narrative | Performed At | + + + | [facility] Diagnostic Imaging Department | [facility] | | [address] | [facility] | | REGADENOSON SESTAMIBI STRESS | DIAG IMG | | TEST, 03/17/2012 PROCEDURE: In the supine position, 0.4 mg of | | | Regadenoson was transfused intravenously over 10 seconds . Blood | | | pressure and EKG were monitored very 1 minute. 5 mL of normal saline | | | was utilized to flush th e IV line. Twenty seconds later, 33.4 mCi of | | | the sestamibi was given intravenously. Patient was taken to the | | | nuclear medicine department. SPECT myocardial perfusion imaging was | | | acquired with wall motion analysis. Rest imaging was performed using | | | a 10 mCi sestamibi intravenous injection. Repeat SPECT my ocardial | | | perfusion imaging was acquired with wall motion analysis. | | | HEMODYNAMICS: Heart rate baseline 89 beats per minute, peak 114 beats | | | per minute. Blood pressure base line 135/85 mmHg, peak 127/73 mmHg. | | | EKG baseline underlying a normal sinus rhythm. Incomplete right b | | | undle branch block. Peak unchanged. SIDE EFFECTS: The patient | | | felt hot and flushed during procedure. REGADENOSON SESTAMIBI | | | MYOCARDIAL PERFUSION IMAGING RESULT The Regadenoson sestamibi | | | tomographic images, reviewed without the attenuation compensation | | | resolutio n, revealed a normal myocardial perfusion pattern as seen | | | in short axis, vertical long axis, and hori zontal long axis | | | projections. The left ventricular cavity is normal. The rest imaging | | | is also normal. Gated SPECT reveals a normal left ventricular | | | wall thickness and motion. Preserved left ventricular systolic | | | function. LVEF by gated SPECT is 50%. IMPRESSION: 1. REGADENOSON | | | EKG IS NEGATIVE. 2. A NORMAL REGADENOSON SESTAMIBI MYOCARDIAL | | | PERFUSION IMAGING STUDY. A NORMAL LEFT VENTRICULAR SIZE AND WALL | | | THICKNESS. LEFT VENTRICULAR SYSTOLIC FUNCTION IS LOW NORMAL. LVEF BY | | | GATED SPECT IS 50%. Dictated Date/Time: 03/18/2012 06:43 | | | Transcribed Date/Time: 03/18/2012 07:15 Napper Fixer: | | | <Electronically Signed by Endy Polo MD [facility]> 03/18/12 | | | 0737 | | + + + + + | Procedure Note | + + | Philip Groves Conversion - 12/08/2013 5:20 PM [facility] | | Diagnostic Imaging Department [address] [facility] | | REGADENOSON SESTAMIBI STRESS TEST, 03/17/2012 | | PROCEDURE: In the supine position, 0.4 mg of Regadenoson was transfused intravenously | | over 10 seconds. Blood pressure and EKG were monitored very 1 minute. 5 mL of normal | | saline was utilized to flush the IV line. Twenty seconds later, 33.4 mCi of the | | sestamibi was given intravenously. Patient was taken to the nuclear medicine department. | | SPECT myocardial perfusion imaging was acquired with wall motion analysis. Rest imaging | | was performed using a 10 mCi sestamibi intravenous injection. Repeat SPECT myocardial | | perfusion imaging was acquired with wall motion analysis. HEMODYNAMICS: Heart rate | | baseline 89 beats per minute, peak 114 beats per minute. Blood pressure baseline 135/85 | | mmHg, peak 127/73 mmHg. EKG baseline underlying a normal sinus rhythm. Incomplete right | | bundle branch block. Peak unchanged. SIDE EFFECTS: The patient felt hot and flushed | | during procedure. REGADENOSON SESTAMIBI MYOCARDIAL PERFUSION IMAGING RESULT The | | Regadenoson sestamibi tomographic images, reviewed without the attenuation compensation | | resolution, revealed a normal myocardial perfusion pattern as seen in short axis, | | vertical long axis, and horizontal long axis projections. The left ventricular cavity is | | normal. The rest imaging is also normal. Gated SPECT reveals a normal left ventricular | | wall thickness and motion. Preserved left ventricular systolic function. LVEF by gated | | SPECT is 50%. IMPRESSION:1. REGADENOSON EKG IS NEGATIVE. 2. A NORMAL REGADENOSON | | SESTAMIBI MYOCARDIAL PERFUSION IMAGING STUDY. A NORMAL LEFT VENTRICULAR SIZE AND WALL | | THICKNESS. LEFT VENTRICULAR SYSTOLIC FUNCTION IS LOW NORMAL. LVEF BY GATED SPECT IS 50%. | | Dictated Date/Time: 03/18/2012 06:43Transcribed Date/Time: 03/18/2012 | | 07:15Transcriptionist: <Electronically Signed by Endy Polo MD [facility]> | | 03/18/1237 | |zontal long axis projections. The left ventricular cavity is normal. The rest imaging is al so normal. | | | | | |Gated SPECT reveals a normal left ventricular wall thickness and motion. Preserved left ve ntricular | |systolic function. LVEF by gated SPECT is 50%. | | | |IMPRESSION: | |1. REGADENOSON EKG IS NEGATIVE. | | | |2. A NORMAL REGADENOSON SESTAMIBI MYOCARDIAL PERFUSION IMAGING STUDY. A NORMAL LEFT VENTRIC ULAR SIZE | |AND WALL THICKNESS. LEFT VENTRICULAR SYSTOLIC FUNCTION IS LOW NORMAL. LVEF BY GATED SPECT I S 50%. | | | |Dictated Date/Time: 03/18/2012 06:43 | |Transcribed Date/Time: 03/18/2012 07:15 | |Napper Fixer: | |<Electronically Signed by Endy Polo MD [facility]> 03/18/1237 | + + + +---------+ + + | Performing | Address | City/State/Zipcode | Phone Number | | Organization | | | | + +---------+ + + | [facility] | | | | | [facility] | | | | + +---------+ + + documented in this encounter Visit Diagnoses Not on filedocumented in this encounter"
--- OUTSIDE RECORDS SUMMARY | ~2020-06-17 | XMS | Encounter Summary ---
Demographics + + + | Address | [address] | | | [place] [address] | + + + | Home Phone | | + + + | Preferred Language | Unknown | + + + | Marital Status | Single | + + + | Christian Affiliation | NON | + + + | Race | or | + + + | Ethnic Group | Not or | + + + Author + + + | Author | [facility] [employer] [facility] | + + + | Organization | [facility] [employer] [facility] | + + + | Address | Unknown | + + + | Phone | Unavailable | + + + Support + + + + + | Name | Relationship | Address | Phone | + + + + + | Yue Fischer | ECON | [address] | | | | | [place] | | | | | [address] | | + + + + + | Greta Broncheau | ECON | Unknown | | + + + + + Care Team Providers + +------+ + | Care Life Assurance Representative Name | Role | Phone | + [...] | Non-Invasive Testing | [address] | | | | | at [facility] | [facility] | | | | | [address] | [place] [address] | | | | | Loop [facility] | | | | | | [place], [facility] floor | | | | | | [place], [place] | | | | | | [address] | | | | | | [phone] | | | +--------+ + + + [...] results section. | | | | | ([facility] Other | | | | | | [...] | | | | | MONIKA HORN ([id number]) on | | | | | | 10/24/2011 11:29:45 AM | | | | + + + + + + + + | Specimen | + + | | + + + + + | Narrative | Performed At | + + + | Please click | [facility] | | on view image for the detailed interpretation from [employer] results. | CARDIOLOGY | + + + + + + + + | Performing | Address | City/State/Zipcode | Phone Number | | Organization | | | | + + + + + | [facility] | [address] | [place], [place] | | | CARDIOLOGY | [address] | [address] | | + + + + + documented in this encounter Visit Diagnoses Not on filedocumented in this encounter
--- OUTSIDE RECORDS SUMMARY | ~2020-06-17 | XMS | Encounter Summary ---
Demographics + + + | Address | [address] | | | [place] [address] | + + + | Home Phone | | + + + | Preferred Language | Unknown | + + + | Marital Status | | + + + | [employer]aritan Affiliation | Unknown | + + + | Race | or | + + + | Ethnic Group | Not or | + + + Author + + + | Author | [facility] | | | and [place] | + + + | Organization | [facility] | | | and [...] [place] | | | | | [id number] | | + + + + + | Greta Broncheau | ECON | [place] | | | | | [address] | | + + + + + Care Team Providers + +------+ + | Care Paper Reeler Name | Role | Phone | + +------+ + PCP | Unavailable | + +------+ + Encounter Details +--------+ + + + + | Date | Type | Department | Care Team | Description | +--------+ + + + + | 05/24/ | Hospital | [facility] | [place], | | | 2011 - | Encounter | [facility] | Antonio Infante MD [id number] | | | | | CENTER [facility] [address] | [facility]O [facility] | | | 05/31/ | | [place] | [address] [place] | | | 2011 | | [address] | [id number] | | | | | [phone] | | | +--------+ + + + [...] | 03/25/20 | | | (VITAMIN D3) [id number] | mouth Once a week. | | [...] encounter Progress Notes Antonio Renee MD - 05/07/2012 2:36 AM PDTPROGRESS NOTE 05/24/2012 IDENTIFYING STATEMENT: Frida Christian is a 51-year-old woman from [place], [place] with Bu rkitt's lymphoma. ACTIVE DIAGNOSES: 1. Presentation in August of 2011 with intractable searing abdominal pain. Symptoms progr essed and on October 05, 2011, she underwent advanced imaging that demonstrated diffuse mal ignant lymphadenopathy throughout the retroperitoneum. 2. 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 Positive for BCL6, CD10, CD19, CD20, CD22, and kappa light chains. Ignacio-Ba rr virus was positive by in situ hybridization. KI 67 fraction was greater than 90%. 3. Initiation of Rituxan/Hyper-CVAD chemotherapy at [facility] on November 15, 2011. CHIEF COMPLAINT: Frida returned to clinic on May 24, 2012, cycle #4A, day #15 of Ritux an/Hyper-CVAD chemotherapy. CURRENT REVIEW OF SYSTEMS: Constitutional: Denies high fever, shaking chills, fatigue, anorexia, nausea, vomiting, o r weight loss. Ear, Nose, Mouth, Throat: Denies odynophagia, dysphagia, or tinnitus. Cardiovascular: De nies shortness of breath, dyspnea on exertion, chest pain, palpitations, or orthopnea. Respiratory: Denies cough, hemoptysis, or sputum production. Gastrointestinal: Denies ab dominal pain, constipation, diarrhea, melena, or bright red blood per rectum. Genitourinary: Denies hematuria or dysuria. Musculoskeletal: She has had significant improvement in her diffuse bone pain. Neurologic: She is having some tingling in her toes bilaterally. Endocrine: Denies peripheral edema o r heat/cold intolerance. Hematologic: Denies spontaneous bruising or bleeding. PAST MEDICAL HISTORY: Treatment-induced congestive heart failure. A cardiac echocardiogram was performed in the asymptomatic state on March 18, 2012 for monitoring for any signs or sy mptoms of cardiac toxicity related to her anthracycline exposure and disclosed a segmental wall motion abnormality in the anteroseptal and distal anteroseptal left ventricle with an ejection of 50%. This led to more comprehensive imaging with myocardial perfusion scan March 16, 2012 that was unable to redemonstrate any segmental wall motion abnormalities or perfus ion defects but did confirm a low ejection fraction of 50%. The patient is currently on med ical management with Coreg and lisinopril. PAST SURGICAL HISTORY: 1. Status post left anterior chest Port-A-Cath. 2. section in 1981 PSYCHOSOCIAL HISTORY: Lives independently in [place], [place]. HABITS: Tobacco: Positive for tobacco use. Alcohol: Positive for remote alcohol use, none currently. Other: Positive for ongoing [facility] miranda use. FAMILY HISTORY: There is no history of cancer in first-degree relatives. ROUTINE MEDICATIONS: 1. Acyclovir 400 mg orally twice daily. 2. Coreg 3.125 mg orally twice daily. 3. Lomotil 1 tablet after each loose stool as needed for diarrhea. 4. Vitamin D 50,000 uni ts orally once every week. 5. Vicodin 5/325, 1 or 2 tablets every 4-6 hours as needed for pain. 6. Lisinopril 10 mg o rally daily. 7. Ativan 1 mg every four hours as needed for nausea, anxiety, or restlessness. 8. Multivi tamin 1 tablet orally daily. 9. Starr 3 fish oil 1 g orally daily. 10. Omeprazole 20 mg orally daily. 11. OxyContin 20 mg orally twice daily. 12. MiraLax 17 g orally daily. 13. Compazine 5-10 mg every 6 hours as needed for nausea. 14. Metamucil 1/2 teaspoon orall y twice daily. 15. Senna 1 or 2 doses as needed. 16. Dilaudid 2-4 mg every 4 hours as needed for pain. ALLERGIES: Include metal. PHYSICAL EXAMINATION: Blood pressure is 132/75, pulse 76, temperature 37.1 degrees Celsius . Saturation of oxygen is 94% on room air. Weight is 84.5 kg. EYES: Conjunctivae clear. Sclerae anicteric. ENMT: [...] and 5 cc of 100-unit/mL heparin and deaccessed. ABDOMEN: Soft, nontender, nondistended, with normoactive bowel sounds. No hepatomegaly. No splenomegaly. No palpable masses. No ascites. LYMPH NODES: No cervical, supraclavicular, axillary, or inguinal lymphadenopathy. MUSCULOSKELETAL: No joint tenderness or swelling. SKIN: No petechiae, ecchymoses, or rash. EXTREMITIES: No cyanosis, clubbing, or edema. NEUROLOGIC: Alert and oriented times three. Face symmetric. Voice articulate. Station and gait within normal limits. LABORATORY DATA: Comprehensive metabolic panel is only notable for slight elevation of al kaline phosphatase at 144, LDH of 226 likely due to hematopoietic recovery. BUN is 11, crea tinine 0.64. Hemoglobin is 10.5, hematocrit is 30.1%, platelet count is 235,000, white count is 12,100. ASSESSMENT: Burkitt's lymphoma. PLAN: Frida will return to [facility] on June 06, 2012. She ericka l undergo an intrathecal injection of 100 mg of cytarabine in preservative-free saline and then proceed directly to admission to [facility] for cycle #4B of her therapy. cc: [facility] Radiology Scheduling <Electronically Signed by Antonio Renee MD> 05/26/12 0814 Antonio Renee MD - 05/07/2012 2:36 AM PDTPROGRESS NOTE 05/16/2012 IDENTIFYING STATEMENT: Frida Christian is a 51-year-old woman from [place], [place] with Bu rkitt's lymphoma. ACTIVE DIAGNOSES: 1. Presentation in August of 2011 with intractable searing abdominal pain. Symptoms progr essed and on October 05, 2011, she underwent advanced imaging that demonstrated diffuse mal ignant lymphadenopathy throughout the retroperitoneum. 2. 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 Positive for BCL6, CD10, CD19, CD20, CD22, and kappa light chains. Ignacio-Ba rr virus was positive by in situ hybridization. KI 67 fraction was greater than 90%. 3. Initiation of Rituxan/Hyper-CVAD chemotherapy at [facility] on November 15, 2011. CHIEF COMPLAINT: Frida returned to clinic on May 16, 2012, cycle #4A, day #8 of Rituxa n/Hyper-CVAD chemotherapy. CURRENT REVIEW OF SYSTEMS: Constitutional: Positive for fatigue. Positive for nausea without emesis. She is controlli ng her nausea with Compazine. Denies high fevers, chills, or night sweats. Denies anorexia or weight loss. Ear, Nose, Mouth, Throat: Denies odynophagia, dysphagia, or tinnitus. Cardiovascular: De nies shortness of breath, dyspnea on exertion, chest pain, palpitations, or orthopnea. Respiratory: Denies cough, hemoptysis, or sputum production. Gastrointestinal: Denies ab dominal pain, constipation, diarrhea, melena, or bright red blood per rectum. Genitourinary: Denies hematuria or dysuria. Musculoskeletal: She is complaining of diffuse bone pain, both in the back of the neck and hips and spine. Pain is rated at 10/10 and was not successfully controlled at home with hy drocodone. Neurologic: She denies any visual changes or numbness/tingling of the extremities. She is having a severe headache related to her bone pain. Endocrine: Denies peripheral edema or heat/cold intolerance. Hematologic: Denies spontan eous bruising or bleeding. PAST MEDICAL HISTORY: Most notable for a recent history of congestive heart failure. A car diac echocardiogram was performed in the asymptomatic state on March 18, 2012 for monitoring for any signs or symptoms of cardiac toxicity related to her anthracycline exposure and dis closed a segmental wall-motion abnormality in the anteroseptal and distal anteroseptal left ventricle with an ejection fraction of 50%. This led to more comprehensive imaging with a Myocardial Perfusion scan on March 16, 2012 that was unable to redemonstrate any segmental wa ll motion abnormalities or perfusion defects but did redemonstrate a low-normal ejection fr action of 50%. Patient is currently on medical management with Coreg and lisinopril. Past m edical history also notable for the fact that she has a left anterior chest Port-A-Cath. PAST SURGICAL HISTORY: section 1981. PSYCHOSOCIAL HISTORY: Lives independently in [place], [place]. HABITS: Tobacco: Positive for tobacco use. Alcohol: Positive for remote alcohol use. Canna bis: Positive for ongoing marijuana use. FAMILY HISTORY: There is no history of cancer in first-degree relatives. CURRENT MEDICATIONS: 1. Acyclovir 400 mg orally twice daily. 2. Coreg 3.125 mg orally twice daily. 3. Lomotil one tablet after each loose stool as needed for diarrhea. 4. Vitamin D 50,000 u nits orally every week. 5. Vicodin 5/325, 1 or 2 tablets every 4-6 hours as needed for pain. 6. Lisinopril 10 mg o rally daily. 7. Ativan 1 mg every 4 hours as needed for nausea, anxiety, or restlessness. 8. Multivitam in 1 tablet orally daily. 9. Starr 3 fish oil 1 g orally daily. 10. Omeprazole 20 mg orally daily. 11. OxyContin 20 mg orally twice daily. 12. MiraLax 17 g orally daily. 13. Compazine 5-10 mg every 6 hours as needed for nausea. 14. Metamucil: She takes 1/2 tea spoon orally twice daily. 15. Senna 1 or 2 doses as needed. ALLERGIES: Include metal. PHYSICAL EXAMINATION: Blood pressure is 161/73, pulse 77, respiratory rate 18, temperature 36.8 degrees Celsius. Saturation of oxygen is 96% on room air. She was not reweighed today . EYES: Conjunctivae clear. Sclerae anicteric. ENMT: Oropharynx free of lesions, mucous membranes moist. CARDIOVASCULAR: Regular rate and rhythm. Normal S1 and S2 without murmur, gallop, or rub . LUNGS: Good air movement bilaterally. No rhonchi, wheeze, or rales. CHEST: Left anterior chest Port-A-Cath was accessed with a Silver needle and a brisk blood return was documented. ABDOMEN: Soft, nontender, nondistended, with normoactive bowel sounds. No hepatomegaly. No splenomegaly. No palpable masses. No ascites. LYMPH NODES: No cervical, supraclavicular, axillary, or inguinal lymphadenopathy. MUSCULOSKELETAL: No joint tenderness or swelling. SKIN: No petechiae, ecchymoses, or rash. EXTREMITIES: No cyanosis, clubbing, or edema. NEUROLOGIC: Alert and oriented times three. Face symmetric. Voice articulate. Station and gait within normal limits. LABORATORY DATA: White count is 25,300, hemoglobin is 11.7, hematocrit 33.5%, platelet co unt is 216,000. Comprehensive metabolic panel is notable for an alkaline phosphatase of 131 , upper limits of normal is 110. LDH is 253, upper limits of normal is 180. These both are directly related to her leukocytosis from white cell stimulation. The rest of her metabolic panel is within normal limits. ASSESSMENT: 1. Burkitt's lymphoma. 2. Diffuse bone pain and cephalgia related to bone marrow stimulation with Neulasta. 3. Le ukocytosis due to bone marrow stimulation with Neulasta. PLAN: Frida received intervention during an extended office encounter today of greater t peña 3 hours with a total of 6 mg of intravenous Dilaudid. She then received a prescription for oral Dilaudid 2 mg tablet #40, 1 or 2 tablets orally every 4 hours as needed for pain. I reassured Frida that her bone pain should resolve in 2 days. She is to call me if she h as persistent bone pain beyond 2 days or if she has any fevers over 101 degrees Fahrenheit or any spontaneous bruising or bleeding, otherwise I will see her for routine followup in 1 week for clinical and laboratory followup and potentially transfusion of blood products de pending upon her blood counts. cc: [facility] <Electronically Signed by Antonio Renee MD> 05/17/12 1331 documented in this encounter Plan of Treatment Not on filedocumented as of this encounter Procedures + +--------+ + + + | Procedure Name | Priori | Date/Time | Associated Diagnosis | Comments | | | ty | | | | + +--------+ + + + | CBC WITH | Routin | 05/24/2012 | | Results for this | | DIFFERENTIAL | e | 10:28 AM | | procedure are in the | | | | PDT | | results section. | + +--------+ + + + | LACTATE | Routin | 05/24/2012 | | Results for this | | DEHYDROGENASE | e | 10:28 AM | | procedure are in the | | | | PDT | | results section. | + +--------+ + + + | COMPREHENSIVE | Routin | 05/24/2012 | | Results for this | | METABOLIC PANEL | e | 10:28 AM | | procedure are in the | | | | PDT | | results section. | + +--------+ + + + | CBC WITH | Routin | 05/16/2012 | | Results for this | | DIFFERENTIAL | e | 8:36 AM | | procedure are in the | | | | PDT | | results section. | + +--------+ + + + | LACTATE | Routin | 05/16/2012 | | Results for this | | DEHYDROGENASE | e | 8:36 AM | | procedure are in the | | | | PDT | | results section. | + +--------+ + + + | COMPREHENSIVE | Routin | 05/16/2012 | | Results for this | | METABOLIC PANEL | e | 8:36 AM | | procedure are in the | | | | PDT | | results section. | + +--------+ + + + | CBC WITH | Routin | 05/09/2012 | | Results for this | | DIFFERENTIAL | e | 9:37 AM | | procedure are in the | | | | PDT | | results section. | + +--------+ + + + | LACTATE | Routin | 05/09/2012 | | Results for this | | DEHYDROGENASE | e | 9:37 AM | | procedure are in the | | | | PDT | | results section. | + +--------+ + + + | COMPREHENSIVE | Routin | 05/09/2012 | | Results for this | | METABOLIC PANEL | e | 9:37 AM | | procedure are in the | | | | PDT | | results section. | + +--------+ + + + documented in this encounter Results Comprehensive Metabolic Panel (05/24/2012 10:28 AM PDT) + + + + + + | Component | Value | Ref Range | Performed | Pathologist | | | | | At | Signature | + + + + + + | Glucose | 122 (H) | 70 - 109 mg/dL | [...] + + + + | Alkaline | 144 (H) | 40 - 110 IU/L | [facility] | | | Phosphatase | | | [facility] | | | | | | [facility] | | | | | | [facility] - | | | | | | LABORATORY | | + + + + + + | AST | 25 | 10 - 42 IU/L | [facility] | | | | | | [facility] | | | | | | [facility] | | | | | | [facility] - | | | | | | LABORATORY | | + + + + + + | ALT | 44 | 6 - 45 IU/L | [facility] [...] + + + + | Albumin | 4.0 | 3.2 - 5.0 gm/dL | [facility] | | | | | | [facility] | | | | | | [facility] | | | | | | [facility] - | | | | | | LABORATORY | | + + + + + + | BUN | 11 | 7 - 18 mg/dL | [facility] | | | | | | [facility] | | | | | | [facility] | | | | | | [facility] - | | | | | | LABORATORY | | + + + + + + | Creatinine | 0.64 | 0.60 - 1.30 | [facility] | | | | | mg/dL | [facility] | | | | | | [facility] | | | | | | [facility] - | | | | | | LABORATORY | | + + + + + + | Estimated | >60Comment: For | >60 mL/min/A | [facility] | | | GFR | -Americans, [...] + + + + | BUN/Creatin | 17.2 | 12 - 20 | [facility] | | | ine Ratio | | [...] + + + + | K | 3.8 | 3.5 - 5.1 mEq/l | [facility] | | | | | | [facility] | | | | | | [facility]ICAL | | | | | | [facility] - | | | | | | LABORATORY | | + + + + + + | Cl | 105 | 98 - 109 mEq/l | [facility] | | | | | | [facility] | | | | | | [facility]ICAL | | | | | | [facility]ENTER - | | | | | | LABORATORY | | + + + + + + | CO2 | 26 | 24 - 31 mEq/L | [facility] | | | | | | [facility] | | | | | | [facility] | | | | | | [facility] - | | | | | | LABORATORY | | + + + + + + | Anion Gap | 9.8 | 6.0 - 17.0 | [facility] | [...] + | [facility] | [address] | [place] | [phone] | | [facility] | | [address] | | | - LABORATORY | | | | + + + + + | [facility] | [address] | [place] | | | [facility] | | [id number] | | | - LABORATORY | | | | + + + + + Lactate Dehydrogenase (05/24/2012 10:28 AM PDT) + +---------+ + + + | Component | Value | Ref Range | Performed | Pathologist | | | | | At | Signature | + +---------+ + + + | LDH TOTAL | 226 (H) | 91 - 180 IU/L | [facility] [...] + | [facility] | [address] | [place], [place] | [phone] | | [facility] | | [address] | | | - LABORATORY | | | | + + + + + | [facility] | [address] | [place], [place] | | | [facility] | | [id number] [place] [address] | | | - LABORATORY | | | | + + + + + CBC with Differential (05/24/2012 10:28 AM PDT) + + + + + + | Component | Value | Ref Range | Performed | Pathologist | | | | | At | Signature | + + + + + + | White Blood | 12.1 (H) | 4.0 - 11.0 K/uL | [facility] | | | Cells | | | [facility] | | | | | | MEDICAL | | | | | | CENTER - | | | | | | LABORATORY | | + + + + + + | Red Blood | 3.13 (L) | 3.70 - 5.20 | [facility] | | | Cells | | M/uL | [facility] | | | | | | MEDICAL | | | | | | CENTER - | | | | | | LABORATORY | | + + + + + + | Hemoglobin | 10.5 (L) | 11.5 - 16.0 | [facility] | | | | | gm/dL | [facility] | | | | | | MEDICAL | | | | | | CENTER - | | | | | | LABORATORY | | + + + + + + | Hematocrit | 30.1 (L) | 34.0 - 47.0 % | [facility] | | | | | | [facility] | | | | | | MEDICAL | | | | | | CENTER - | | | | | | LABORATORY | | + + + + + + | MCV | 96.0 | 83.0 - 101.0 fL | [facility] | | | | | | [facility] | | | | | | MEDICAL | | | | | | CENTER - | | | | | | LABORATORY | | + + + + + + | MCH | 33.5 | 28.0 - 35.0 pg | [facility] | | | | | | [facility] | | | | | | MEDICAL | | | | | | CENTER - | | | | | | LABORATORY | | + + + + + + | MCHC | 34.9 | 32.0 - 36.0 | [facility] | | | | | g/dL | [facility] | | | | | | MEDICAL | | | | | | CENTER - | | | | | | LABORATORY | | + + + + + + | RDW-CV | 16.3 (H) | <15.0 % | [facility] | | | | | | [facility] | | | | | | MEDICAL | | | | | | CENTER - | | | | | | LABORATORY | | + + + + + + | Platelet | 235 | 140 - 440 K/uL | [facility] | | | Count | | | [facility] | | | | | | MEDICAL | | | | | | CENTER - | | | | | | LABORATORY | | + + + + + + | % | 79.4 | 45 - 82 % | [facility] | | | Neutrophils | | | [facility] | | | | | | MEDICAL | | | | | | CENTER - | | | | | | LABORATORY | | + + + + + + | % | 12.0 (L) | 20 - 45 % | [facility] | | | Lymphocytes | | | [facility] | | | | | | MEDICAL | | | | | | CENTER - | | | | | | LABORATORY | | + + + + + + | % Monocytes | 8.6 | 4 - 12 % | [facility] | | | | | | [facility] | | | | | | MEDICAL | | | | | | CENTER - | | | | | | LABORATORY | | + + + + + + | Absolute | 9.6 (H) | 1.8 - 8.5 K/uL | [facility] | | | Neutrophils | | | [facility] | | | | | | MEDICAL | | | | | | CENTER - | | | | | | LABORATORY | | + + + + + + | Absolute | 1.5 | 0.6 - 3.2 K/uL | [facility] | | | Lymphocytes | | | [facility] | | | | | | MEDICAL | | | | | | CENTER - | | | | | | LABORATORY | | + + + + + + | Absolute | 1.0 | 0.0 - 1.0 K/uL | [facility] | | | Monocytes | | | [facility] | | [...] [address] | [place] | [phone] | | [facility] | | [address] | | | - LABORATORY | | | | + + + + + | [facility] | [address] | [place] | | | [facility] | | [id number] | | | - LABORATORY | | | | + + + + + Comprehensive Metabolic Panel (05/16/2012 8:36 AM PDT) + + + + + + | Component | Value | Ref Range | Performed | Pathologist | | | | | At | Signature | + + + + + + | Glucose | 128 (H) | 70 - 109 mg/dL | [...] + + + + | Alkaline | 131 (H) | 40 - 110 IU/L | [facility] | | | Phosphatase | | | [facility] | | | | | | MEDICAL | | | | | | CENTER - | | | | | | LABORATORY | | + + + + + + | AST | 20 | 10 - 42 IU/L | [facility] | | | | | | [facility] | | | | | | MEDICAL | | | | | | CENTER - | | | | | | LABORATORY | | + + + + + + | ALT | 27 | 6 - 45 IU/L | [facility] | | | | | | [facility] | | | | | | MEDICAL | | | | | | CENTER - | | | | | | LABORATORY | | + + + + + + | Bilirubin | 1.1 (H) | 0.2 - 1.0 mg/dL | [facility] [...] + + + + | BUN | 17 | 7 - 18 mg/dL | [facility] | | | | | | [facility] | | | | | | [facility] | | | | | | CENTER - | | | | | | LABORATORY | | + + + + + + | Creatinine | 0.75 | 0.60 - 1.30 | [facility] | [...] + + + + | BUN/Creatin | 22.7 (H) | 12 - 20 | [facility] | | | ine Ratio | | | [facility] | | | | | | MEDICAL | | | | | | CENTER - | | | | | | LABORATORY | | + + + + + + | Na | 141 | 136 - 149 mEq/L | [facility] | | | | | | [facility] | | | | | | MEDICAL | | | | | | CENTER - | | | | | | LABORATORY | | + + + + + + | K | 4.4 | 3.5 - 5.1 mEq/l | [facility] | | | | | | [facility] | | | | | | MEDICAL | | | | | | CENTER - | | | | | | LABORATORY | | + + + + + + | Cl | 107 | 98 - 109 mEq/l | [facility] | | | | | | [facility] | | | | | | MEDICAL | | | | | | CENTER - | | | | | | LABORATORY | | + + + + + + | CO2 | 26 | 24 - 31 mEq/L | [facility] | | | | | | [facility] | | | | | | MEDICAL | | | | | | CENTER - | | | | | | LABORATORY | | + + + + + + | Anion Gap | 12.4 | 6.0 - 17.0 | [facility] | [...] + | [facility] | [address] | [place] | [phone] | | [facility] | | [address] | | | - LABORATORY | | | | + + + + + | [facility] | [address] | [place] | | | [facility] | | [id number] | | | - LABORATORY | | | | + + + + + Lactate Dehydrogenase (05/16/2012 8:36 AM PDT) + +---------+ + + + | Component | Value | Ref Range | Performed | Pathologist | | | | | At | Signature | + +---------+ + + + | LDH TOTAL | 253 (H) | 91 - 180 IU/L | [facility] [...] + | [facility] | [address] | [place], [place] | [phone] | | [facility] | | [address] | | | - LABORATORY | | | | + + + + + | [facility] | [address] | [place], [place] | | | [facility] | | [address] [place] [address] | | | - LABORATORY | | | | + + + + + CBC with Differential (05/16/2012 8:36 AM PDT) + + + + + + | Component | Value | Ref Range | Performed | Pathologist | | | | | At | Signature | + + + + + + | White Blood | 25.3 (H) | 4.0 - 11.0 K/uL | [facility] | | | Cells | | | [facility] | | | | | | MEDICAL | | | | | | CENTER - | | | | | | LABORATORY | | + + + + + + | Red Blood | 3.52 (L) | 3.70 - 5.20 | [facility] | | | Cells | | M/uL | [facility] | | | | | | MEDICAL | | | | | | CENTER - | | | | | | LABORATORY | | + + + + + + | Hemoglobin | 11.7 | 11.5 - 16.0 | [facility] | | | | | gm/dL | [facility] | | | | | | MEDICAL | | | | | | CENTER - | | | | | | LABORATORY | | + + + + + + | Hematocrit | 33.5 (L) | 34.0 - 47.0 % | [facility] | | | | | | [facility] | | | | | | MEDICAL | | | | | | CENTER - | | | | | | LABORATORY | | + + + + + + | MCV | 95.1 | 83.0 - 101.0 fL | [facility] | | | | | | [facility] | | | | | | MEDICAL | | | | | | CENTER - | | | | | | LABORATORY | | + + + + + + | MCH | 33.3 | 28.0 - 35.0 pg | [facility] | | | | | | [facility] | | | | | | MEDICAL | | | | | | CENTER - | | | | | | LABORATORY | | + + + + + + | MCHC | 35.0 | 32.0 - 36.0 | [facility] | | | | | g/dL | [facility] | | | | | | MEDICAL | | | | | | CENTER - | | | | | | LABORATORY | | + + + + + + | RDW-CV | 16.6 (H) | <15.0 % | [facility] | | | | | | [facility] | | | | | | MEDICAL | | | | | | CENTER - | | | | | | LABORATORY | | + + + + + + | Platelet | 216 | 140 - 440 K/uL | [facility] | | | Count | | | [facility] | | | | | | MEDICAL | | | | | | CENTER - | | | | | | LABORATORY | | + + + + + + | % | 92.2 (H) | 45 - 75 % | [facility] | | | Neutrophils | | | [facility] | | | | | | [facility] | | | | | | CENTER - | | | | | | LABORATORY | | + + + + + + | % | 2.5 (L) | 20 - 45 % | [facility] | | | Lymphocytes | | | [facility] | | | | | | MEDICAL | | | | | | CENTER - | | | | | | LABORATORY | | + + + + + + | % Monocytes | 4.0 | 4 - 12 % | [facility] [...] + + + | % Basophils | 0.3 | 0 - 1 % | [facility] | | | | | | [facility] | | | [facility] | [facility] | | | | | | CENTER - | | | | | | LABORATORY | | + + + + + + | Absolute | 23.3 (H) | 1.5 - 6.6 K/uL | [facility] [...] + + + + | Absolute | 1.0 | 0.0 - 1.0 K/uL | [facility] | | | Monocytes | | | [facility] | | | | | | [facility] | | | | | | CENTER - | | | | | | LABORATORY | | + + + + + + | Absolute | 0.2 | 0.0 - 0.4 K/uL | [facility] | | | Eosinophils | | | [facility] | | | | | | MEDICAL | | | | | | CENTER - | | | | | | LABORATORY | | + + + + + + | Absolute | 0.1 | 0.0 - 0.1 K/uL | [facility] [...] PROBLEM IS: | Comment: | | [facility] | | | | Left Shift | | MEDICAL | | | | Imm Grans | | CENTER - | | | | NE Blast | | LABORATORY | | + + + + + + + + | Specimen | + + | | + + + + + + + | Performing | Address | City/State/Zipcode | Phone Number | | Organization | | | | + + + + + | [facility] | [address] | [place], [place] | [phone] | | [facility] | | [address] | | | - LABORATORY | | | | + + + + + | [facility] | [address] | [place], [place] | | | [facility] | | [address], [facility] | | | - LABORATORY | | | | + + + + + Comprehensive Metabolic Panel (05/09/2012 9:37 AM PDT) + + + + + + | Component | Value | Ref Range | Performed | Pathologist | | | | | At | Signature | + + + + + + | Glucose | 109 | 70 - 109 mg/dL | [facility] [...] + + + + | Alkaline | 119 (H) | 40 - 110 IU/L | [facility] | | | Phosphatase | | | [facility] | | | | | | MEDICAL | | | | | | CENTER - | | | | | | LABORATORY | | + + + + + + | AST | 22 | 10 - 42 IU/L | [facility] | | | | | | [facility] | | | | | | MEDICAL | | | | | | CENTER - | | | | | | LABORATORY | | + + + + + + | ALT | 33 | 6 - 45 IU/L | [facility] [...] + + + + | Total | 6.0 | 6.0 - 7.8 gm/dL | [facility] | | | Protein | | | [facility] | | | | | | MEDICAL | | | | | | CENTER - | | | | | | LABORATORY | | + + + + + + | Albumin | 4.0 | 3.2 - 5.0 gm/dL | [facility] | | | | | | [facility] | | | | | | MEDICAL | | | | | | CENTER - | | | | | | LABORATORY | | + + + + + + | BUN | 15 | 7 - 18 mg/dL | [facility] | | | | | | [facility] | | | | | | MEDICAL | | | | | | CENTER - | | | | | | LABORATORY | | + + + + + + | Creatinine | 0.70 | 0.60 - 1.30 | [facility] | [...] + + + + | BUN/Creatin | 21.4 (H) | 12 - 20 | [facility] | | | ine Ratio | | | [facility] | | | | | | MEDICAL | | | | | | CENTER - | | | | | | LABORATORY | | + + + + + + | Na | 138 | 136 - 149 mEq/L | [facility] | | | | | | [facility] | | | | | | MEDICAL | | | | | | CENTER - | | | | | | LABORATORY | | + + + + + + | K | 4.4 | 3.5 - 5.1 mEq/l | [facility] | | | | | | [facility] [...] + + + | Anion Gap | 10.4 | 6.0 - 17.0 | [facility] | [...] + | [facility] | [address] | [place], [place] | [phone] | | [facility] | | [address] | | | - LABORATORY | | | | + + + + + | [facility] | [address] | [place] | | | [facility] | | [address] [place] [address] | | | - LABORATORY | | | | + + + + + Lactate Dehydrogenase (05/09/2012 9:37 AM PDT) + +-------+ + + + | Component | Value | Ref Range | Performed | Pathologist | | | | | At | Signature | + +-------+ + + + | LDH TOTAL | 156 | 91 - 180 IU/L | [facility] [...] + | [facility] | [address] | [place] | [phone] | | [facility] | | [address] | | | - LABORATORY | | | | + + + + + | [facility] | [address] | [place], [place] | | | [facility] | | [id number] [place] [address] | | | - LABORATORY | | | | + + + + + CBC with Differential (05/09/2012 9:37 AM PDT) + + + + + + | Component | Value | Ref Range | Performed | Pathologist | | | | | At | Signature | + + + + + + | White Blood | 5.4 | 4.0 - 11.0 K/uL | [facility] | | | Cells | | | [facility] | | | | | | MEDICAL | | | | | | CENTER - | | | | | | LABORATORY | | + + + + + + | Red Blood | 2.89 (L) | 3.70 - 5.20 | [facility] [...] + + + + | Hematocrit | 27.8 (L) | 34.0 - 47.0 % | [facility] | | | | | | [facility] | | | | | | MEDICAL | | | | | | CENTER - | | | | | | LABORATORY | | + + + + + + | MCV | 96.5 | 83.0 - 101.0 fL | [facility] | | | | | | [facility] | | | | | | MEDICAL | | | | | | CENTER - | | | | | | LABORATORY | | + + + + + + | MCH | 34.5 | 28.0 - 35.0 pg | [facility] [...] + + + + | RDW-CV | 15.9 (H) | <15.0 % | [facility] | | | | | | [facility] | | | | | | MEDICAL | | | | | | CENTER - | | | | | | LABORATORY | | + + + + + + | Platelet | 257 | 140 - 440 K/uL | [facility] | | | Count | | | [facility] | | | | | | MEDICAL | | | | | | CENTER - | | | | | | LABORATORY | | + + + + + + | % | 54.1 | 45 - 75 % | [facility] | | | Neutrophils | | | [facility] | | | | | | MEDICAL | | | | | | CENTER - | | | | | | LABORATORY | | + + + + + + | % | 27.1 | 20 - 45 % | [facility] | | | Lymphocytes | | | [facility] | | | | | | MEDICAL | | | | | | CENTER - | | | | | | LABORATORY | | + + + + + + | % Monocytes | 17.6 (H) | 4 - 12 % | [facility] | | | | | | [facility] | | | | | | MEDICAL | | | | | | CENTER - | | | | | | LABORATORY | | + + + + + + | % | 0.5 | 0 - 5 % | [facility] | | | Eosinophils | | | [facility] | | | | | | MEDICAL | | | | | | CENTER - | | | | | | LABORATORY | | + + + + + + | % Basophils | 0.7 | 0 - 1 % | [facility] | | | | | | [facility] | | | | | | MEDICAL | | | | | | CENTER - | | | | | | LABORATORY | | + + + + + + | Absolute | 2.9 | 1.5 - 6.6 K/uL | [facility] | | | Neutrophils | | | [facility] | | | | | | MEDICAL | | | | | | CENTER - | | | | | | LABORATORY | | + + + + + + | Absolute | 1.5 | 0.6 - 3.2 K/uL | [facility] | | | Lymphocytes | | | [facility] | | | | | | MEDICAL | | | | | | CENTER - | | | | | | LABORATORY | | + + + + + + | Absolute | 0.9 | 0.0 - 1.0 K/uL | [facility] [...] [address] | [place] | [phone] | | [facility] | | [address] | | | - LABORATORY | | | | + + + + + | [facility] | [address] | [place] | | | [facility] | | [address] | | | - LABORATORY | | | | + + + + + documented in this encounter Visit Diagnoses Not on filedocumented in this encounter"
--- OUTSIDE RECORDS SUMMARY | ~2020-06-17 | XMS | Encounter Summary ---
Demographics + + + | Address | [address] | | | [place] [address] | + + + | Home Phone | | + + + | Preferred Language | Unknown | + + + | Marital Status | Single | + + + | Taoism Affiliation | NON | + + + | Race | or | + + + | Ethnic Group | Not or | + + + Author + + + | Author | [facility] [employer] [facility] | + + + | Organization | [facility] | + + + | Address | Unknown | + + + | Phone | Unavailable | + + + Support + + + + + | Name | Relationship | Address | Phone | + + + + + | Yue Fischer | ECON | [address] | | | | | [place] | | | | | [address] | | + + + + + | Greta Broncheau | ECON | Unknown | | + + + + + Care Team Providers + +------+ + | Care Corn Picker Name | Role | Phone | + +------+ + | Becky Jennings | PCP | | + +------+ + Reason for Visit + + + | Reason | Comments | + + + | Bone Marrow | | + + + AUTH/CERT (Routine) [...] + + + + | 11/13/ | Clinical | [facility] | Nurse6, Hem 3[address] | Bone Marrow | | 2011 | Support | [facility] | [address] | | | | Staff | [facility] [address] | [place] [address] | | | | | [facility] | [address], [address] | | | | | [facility] and Healing, | [address] [place], | | | | | [facility] [address] | [place] [address] | | | | | [place], [place] | | | | | | [address] | | | | | | [phone] | | | +--------+ + + + [...] this encounter Last Filed Vital Signs + +---------+ + + | Vital Sign | Reading | Time Taken | Comments | + +---------+ + + | Blood Pressure | 100/64 | 11/13/2011 5:00 PM | | | | | PST | | + +---------+ + + | Pulse | 106 | 11/13/2011 5:00 PM | | | | | PST | | + +---------+ + + | Temperature | - | - | | + +---------+ + + | Respiratory Rate | 18 | 11/13/2011 5:00 PM | | | | | PST | | + +---------+ + + | Oxygen Saturation | - | - | | + +---------+ + + | Inhaled Oxygen | - | - | | | Concentration | | | | + +---------+ + + | Weight | - | - | | + +---------+ + + | Height | - | - | | + +---------+ + + | Body Mass Index | - | - | | + +---------+ + + documented in this encounter Progress Notes Angeles Farias RN - 11/13/2011 6:08 PM PSTPt here for bone marrow biopsy and then to b e admitted. PIV started for premeds and 1 L NS per orders. CBC and CMP drawn, results give n and reviewed. Remaining labs drawn and sent to core lab. Platelet result 559 today. CBC given to biopsy tech. Bone marrow biopsy completed. Patient remained lying on posterior hipbone and observed for 30 minutes post-procedure. Pt discharged in wheelchair with family to admitting. VSS afte r procedure. No acute distress noted. Pressure dressing to site dry and intact without vis ible drainage. PIV remains intact for in-patient stay. documented in this encounter Plan of Treatment Not on filedocumented as of this encounter Visit Diagnoses + + | Diagnosis | + + | Burkitt's lymphoma (HCC) - Primary Burkitt's tumor or lymphoma, unspecified site, | | extranodal and solid organ sites | + + documented in this encounter Administered Medications + +---------+ +------+--------+------+ | Medication Order | MAR | Action | Dose | Rate | Site | | | Action | Date | | | | + +---------+ +------+--------+------+ | LORazepam (aknicolas ATIVAN) | New Bag | 11/13/19 | 1 mg | mL/hr | | | injection 1-2 mg 1-2 mg, | | 12 4:15 | | | | | intravenous, ONCE, 1 dose, Fri | | PM PST | | | | | 11/13/11 at 1530 | | | | | | + +---------+ +------+--------+------+ +---+---+ | | | +---+---+ + +---------+ +------+--------+---+ | morphine injection 1-2 mg 1-2 | New Bag | 11/13/19 | 2 mg | mL/hr | | | mg, intravenous, ONCE, 1 dose, | | 12 4:15 | | | | | 11/13/11 at 1530 | | PM PST | | | | + +---------+ +------+--------+---+ +---+---+ | | | +---+---+ + +---------+ + +--------+---+ | NaCl 0.9 % IV bolus 1,000 mL | New Bag | 11/13/19 | 1,000 mL | mL/hr | | | 1,000 mL, intravenous, ONCE, | | 12 4:00 | | | | | dose, 11/13/11 at 1815 | | PM PST | | | | + +---------+ + +--------+---+ +---+---+ | | | +---+---+ documented in this encounter"
--- OUTSIDE RECORDS SUMMARY | ~2020-06-17 | XMS | Encounter Summary ---
Demographics + + + | Address | [address] | | | [place] [address] | + + + | Home Phone | | + + + | Preferred Language | Unknown | + + + | Marital Status | Single | + + + | Anabaptist Affiliation | NON | + + + | Race | or | + + + | Ethnic Group | Not or | + + + Author + + + | Author | [facility] [email or web address] [facility] | + + + | Organization | [facility] | + + + | Address | Unknown | + + + | Phone | Unavailable | + + + Support + + + + + | Name | Relationship | Address | Phone | + + + + + | Yue Fischer | ECON | [address] | | | | | [place] | | | | | [address] | | + + + + + | Greta Broncheau | ECON | Unknown | | + + + + + Care Team Providers + +------+ + | Care Air Traffic Instructor Name | Role | Phone | + [...] + + | 11/09/ | Hospital | [facility] [address] | Osiel Rm MD | | | 2011 - | Encounter | Hiram Mailcode: | [address] | | | | | [id number] | [place], [place] | | | 11/10/ | | [place], | [address] | | | 2011 | | [place] [address] | [phone] | | | | | [phone] | | | +--------+ + + + [...] follow up 11/24/2010 @ 11 AM at [facility] Vitals on discharge: Ht 162.6 cm (5' [...] Heme-Onc (pending final path). OSIEL RM MD [facility] [address] [place], [place] [address] documented in this encoun ter [...] + +--------+ + + + | NON CARTON FORMING MACHINE HELPER CYTOLOGY | Routin | 11/09/2011 | | Results for this | | | e | | | procedure are in the | | | | | | results section. | + +--------+ + + + | NON CARTON FORMING MACHINE HELPER CYTOLOGY | Routin | 11/09/2011 | | Results for this | | | e | | | procedure are in the | | | | | | results section. | + +--------+ + + + | NON CARTON FORMING MACHINE HELPER CYTOLOGY | Routin | 11/09/2011 | | Results for this | | | e | | | procedure are in the | | | | | | results section. | + +--------+ + + + | NON CARTON FORMING MACHINE HELPER CYTOLOGY | Routin | 11/09/2011 | | [...] + + | [facility] | [address] | [place], [place] | | | [facility] [place] [facility] | [address] | [address] | | | TESTS | | | | + + + + + OPERATION RECORD (11/10/2011 7:37 AM PST) + + | Transcriptions | + + | Osiel Rm MD - 11/10/2011 7:31 AM PST [id number] | | [id number] [address] | | [id number] Date: 11/09/2011 Attending Surgeon: Osiel Urban | | Cayetano Rm. Co-Surgeon: Chaparro Merino M.D.Material Handler Loader(s): | | Preoperative Diagnosis(es):Retroperitoneal mass, possible lymphoma. [...] permanentsection. | | We inserted the suction risk control field representative and removed a low volumeascites completely. This [...] | was justified. Osiel Rm M.D.WALKER / [id number] / [id number] / [id number] / T: | | 11/09/2011 | |1. [...] permanent | |section. We inserted the suction risk control field representative and removed a low volume | |ascites [...] Rm M.D. | |JTV / HS | |[id number] / [id number] / [id number] / | | | | | | [...] MARQUAM | [address] | [place], [place] | | | [facility] | [address] | [address] | | | TESTS | | | [...] HENSLEY | [address] | [place], [place] | | | [facility] | [facility] | [address] | | | TESTS | | | [...] + + | [facility] | [address] | [place], [place] | | | THERAPY | [address] | [address] | | + + + + + [...] HENSLEY | [address] | [place], [place] | | | [place] [facility] [place] | [address] | [address] | | | TESTS | | | [...] | | POC | | | NARA AJ[place]INE | | | | | | OF [...] MARQUAM | [address] | [place], [place] | | | [facility] | [address] | [address] | | | TESTS | | | [...] MARQU[facility] | [address] | [place], [place] | | | [facility] | [address] | [address] | | | TESTS | | | [...] HENSLEY | [address] | [place], [place] | | | [facility] | [address] | [address] | | | TESTS | | | [...] JUSTINAM | [address] | [place], [place] | | | [facility] | [address] | [address] | | | TESTS | | | [...] HENSLEY | [address] | [place], [place] | | | [place] [facility] [place] | [facility] | [address] | | | TESTS | | | [...] SHELLIE | [address] | [place], [place] | | | [facility] | [address] | [address] | | | TESTS | | | [...] + + | Performing | Address | City[facility] | Phone Number | | Organization | | | | + + + + + | [facility] | [address] | [place], [place] | | | [place] | [address] | [address] | | | TESTS | | | [...] | + + + + + | [facility] | [address] | [place] [address] | | | PATHOLOGY | [address] | | | + + + + + CAPILLARY BLOOD GLUCOSE, POC (11/09/2011 6:25 AM PST) + +-------+ + + + | Component | Value | Ref Range | Performed | Pathologist | | | | | At | Signature | + +-------+ + + + | BLOOD | 90 | 60 - 99 mg/dL | [facility] - | | | GLUCOSE, | [...] HENSLEY | [address] | [place], [place] | | | [facility] | [facility] | [address] | | | TESTS | | | | + + + + + ANESTHESIA/SEDATION (11/09/2011 12:00 AM PST) + + + | Narrative | Performed At | + + + | | | + + + + + | Transcriptions | + + | Lamberto, Faculty - 11/09/2011 10:14 AM PST | [...] | | | | | | determined bytamara [place] | | | | | | Cytogenetics [...] clinical | | | | | | activities director. | | | | | | Rendering [...] | | | | | Al LOZADA, ABMG, | | | | | | [...] + + + + | [facility] | [address] | [place] [address] | | | DIAGNOSTIC | [address] | | | | LABORATORIES | | | | + + + + + NON CARTON FORMING MACHINE HELPER CYTOLOGY (11/09/2011) + + + + + + | Component | Value | Ref Range | Performed | Pathologist | | | | | At | Signature | + + + + + + | NON-CARTON FORMING MACHINE HELPER | SOURCE OF SPECIMEN:A | | [facility] [...] Poole | | | | | | CT(ASCP)[employer] Message Broker Developer | | | | | | Electronically [...] | + + + + + | [facility][1] | [address] | [place] [address] | | | PATHOLOGY | [address] | | | + + + + + NON CARTON FORMING MACHINE HELPER CYTOLOGY (11/09/2011) + + + + + + | Component | Value | Ref Range | Performed | Pathologist | | | | | At | Signature | + + + + + + | NON-CARTON FORMING MACHINE HELPER | SOURCE OF SPECIMEN:A | | [facility] [...] [facility]ole | | | | | | CT(ASCP)[employer] Message Broker Developer | | | | | | Electronically Signed | | | | | | 11/10/2011 | | | | | | 10:38AMRendering | | | | | | Yulianaian: Bella | | | | | | [...] | + + + + + | [facility][1] | [address] | [place] [address] | | | PATHOLOGY | [address] | | | + + + + + NON CARTON FORMING MACHINE HELPER CYTOLOGY (11/09/2011) + + + + + + | Component | Value | Ref Range | Performed | Pathologist | | | | | At | Signature | + + + + + + | NON-CARTON FORMING MACHINE HELPER | SOURCE OF SPECIMEN:A | | [facility] [...] [facility] | | | | | | [facility])[employer] Message Broker Developer | | | | | | Electronically Signed | | | | | | 11/10/2011 | | | | | | 10:37AMRendering | | | | | | Diagnostician: Bella | | | | | | Michael | | | | | | ClintPathologistElectroni | | | | | | carolyn [...] | + + + + + | [facility][1] | [address] | [place] [address] | | | PATHOLOGY | [address] | | | + + + + + NON CARTON FORMING MACHINE HELPER CYTOLOGY (11/09/2011) + + + + + + | Component | Value | Ref Range | Performed | Pathologist | | | | | At | Signature | + + + + + + | NON-CARTON FORMING MACHINE HELPER | SOURCE OF SPECIMEN:A | | [facility] [...] [place] | | | | | | [facility])[employer] Message Broker Developer | | | | | | Electronically Signed | | | | | | 11/10/2011 | | | | | | 10:35AMRendering | | | | | | Diagnostician: Bella | | | | | | Michael | | | | | | ClintPathologistElectroni | | | | | | carolyn [...] | + + + + + | [facility][1] | [address] | [place] [address] | | | PATHOLOGY | [address] [...] and | | | | | | Garsia agree. Dr. Robins | | | | | | Candice was notified on | | | | | | 11/11/11 of thediagnosis. | | | | | | Case seen | | | | | | by:Michelle Cabrera, | | | | | | M.DEmanuel/Surgical Pathology | | | | | | Brianda Huerta, | | | | | | [...] Murillo, | | | | | | M.DEmanuel/SurgicalPathology | | | | | | | | | | | | Clint Doshi/Pathologist | | | | | | Clinical [...] soft, | | | | | | fields-pink tissues, 0.7 x | | | | [...] | | | | | | CD10 [id number] CD22 | | | | | | CD23 CD25 CD34 CD38 CD45 | | | | | | [id number] | | | | | | sKappa [...] necessary | | | | | | [employer] | | | | | | and [...] Huerta | | | | | | MMati.PathologistElectroni | | | | | | carolyn [...] | + + + + + | [facility][1] | [address] | [place] [address] | | | PATHOLOGY | [address] [...] | | | 11/09/11 at 1034, Until 11/09/11 | | | at 1030 | | + +---+ | | | + +---+ + +-------+ +---------+---+---+ | insulin glargine (aka LANTUS) | Given | 11/09/19 | 8 [...] | | | DAILY, First dose on Wed11/09/11 | | AM PST | | [...]
--- OUTSIDE RECORDS SUMMARY | ~2020-06-17 | XMS | Encounter Summary ---
Demographics + + + | Address | [address] | | | [place] [address] | + + + | Home Phone | | + + + | Preferred Language | Unknown | + + + | Marital Status | | + + + | Yazidism Affiliation | Unknown | + + + | Race | or | + + + | Ethnic Group | Not or | + + + Author + + + | Author | [facility] | | | and [place] | + + + | Organization | [facility] | | | and [place] [...] [place] | | | | | [address] | | + + + + + | Greta Broncheau | ECON | [place] | | | | | [address] | | + + + + + Care Team Providers + +------+ + | Care Hog Confinement System Manager Name | Role | Phone | + +------+ + | Becky Jennings | PCP | | + +------+ + Reason for Visit + +--------+ + | Reason | Onset | Comments | | | Date | | + +--------+ + | Medication Refill | 03/18/ | | | | 2014 | | + +--------+ + Encounter Details +--------+--------+ + + + | Date | Type | Department | Care Team | Description | +--------+--------+ + + + | 03/18/ | Refill | [facility] | Thelma, | Medication Refill | | 2014 | | [facility] | Antonio Infante MD [address] | | | | | [facility] [address] | [facility] | | | | | [place] | [address] [place] | | | | | [place] [address] | [id number] | | | | | [phone] | | | +--------+--------+ + + + [...] this encounter Miscellaneous Notes Telephone Encounter - Renetta Hurst RN - 03/18/2015 1:28 PM PDTCalled to let her know Hy drocodone prescription is ready to be apple picker. elephone Encounter - Shira Pate - 03/18/2015 11:29 AM PDTThis patient needs a refill of Hydrocodone. She is willing to pick this up when completed since she will going out of town this weekend. Please call when ready. documented in this encounter Plan of Treatment Not on filedocumented as of this encounter Visit Diagnoses + + | Diagnosis | + + | Burkitt's lymphoma (HCC) - Primary Burkitt's tumor or lymphoma, unspecified site, | | extranodal and solid organ sites | + + documented in this encounter"
--- OUTSIDE RECORDS SUMMARY | ~2020-06-17 | XMS | Encounter Summary ---
Demographics + + + | Address | [address] | | | [place] [address] | + + + | Home Phone [...] + + + | Author | [facility] | | | and [place] | + + + | Organization | [facility] | | | and [place] | [...] [place] | | | | | [id number] | | + + + + + | [place] | ECON | [place] | | | | | [address] | | + + + + + Care Team Providers + +------+ + | Care Boom Master Name | Role | Phone | + +------+ + PCP | Unavailable | + +------+ + Encounter Details +--------+ + + + + | Date | Type | Department | Care Team | Description | +--------+ + + + + | 07/14/ | Abstract | [facility] | | | 2011 | | Conversion Location | [address] | | | | | [address] [address] | | | | | | [place], [place] | | | | | | [address] | | | | | | [phone] | | | +--------+ + + + [...] + + + | Blood Pressure | 108/64 | 07/13/2012 12:00 AM | | | | | PDT | | + + + + + | Pulse | - | - | | + + + + + | Temperature | - | - | | + + + + + | Respiratory Rate | - | - | | + + + + + | Oxygen Saturation | - | - | | + + + + + | Inhaled Oxygen | - | - | | | Concentration | | | | + + + + + | Weight | 88.5 kg (195 lb) | 07/13/2012 12:00 AM | | | | | PDT | | + + + + + | Height | 162.6 cm (5' 4") | 03/29/2012 12:00 AM | | | | | PDT | | + + + + + | Body Mass Index | 33.47 | 03/29/2012 12:00 AM | | | | | PDT | | + + + + + documented in this encounter Plan of Treatment Not on filedocumented as of this encounter Visit Diagnoses Not on filedocumented in this encounter
--- OUTSIDE RECORDS SUMMARY | ~2020-06-17 | XMS | Encounter Summary ---
Demographics + + + | Address | [address] | | | [place] [address] | + + + | Home Phone | | + + + | Preferred Language | Unknown | + + + | Marital Status | Single | + + + | Latter Day Affiliation | NON | + + + | Race | or | + + + | Ethnic Group | Not or | + + + Author + + + | Author | [facility] | + + + | Organization | [facility] | + + + | Address | Unknown | + + + | Phone | Unavailable | + + + Support + + + + + | Name | Relationship | Address | Phone | + + + + + | Yue Fischer | ECON | [address] | | | | | [place] | | | | | [address] | | + + + + + | Greta Broncheau | ECON | Unknown | | + + + + + Care Team Providers + +------+ + | Care Sales Recruitment Specialist Name | Role | Phone | [...] Guevara | | | | Staff | [facility] [address] | [place] [address] | | | | | [facility] | [address] | | | | | [facility], | Jakob Guevara [place], | | | | | [facility] [address] | [place] [address] | | | | | [place], [place] | | | | | | [address] | | | | | | [phone] | | | +--------+ + + + [...]
--- OUTSIDE RECORDS SUMMARY | ~2020-06-17 | XMS | Encounter Summary ---
Demographics + + + | Address | [address] | | | [place] [address] | + + + | Home Phone | | + + + | Preferred Language | Unknown | + + + | Marital Status | | + + + | Anabaptism Affiliation | Unknown | + + + | Race | or | + + + | Ethnic Group | Not or | + + + Author + + + | Author | [facility] | | | and [place] | + + + | Organization | [facility] | | | and [place] [...] [place] | | | | | [address] | | + + + + + | Greta [place] | ECON | [place] | | | | | [address] | | + + + + + Care Team Providers + +------+ + | Care Global Expansion Sales Director Name | Role | Phone | [...] Cardiomyopat | ELLEN Albarran | [address] | | | | | hy (HCC) | [address] | [place], | | | | | Procedures | [place] | [place] | | | | | [place] Card[place] | [place], | [address] | | | | | MUGA Scan | [place] | Phone: | | | | | | [address] | [phone] | | | | | | Phone: | Fax: | | | | | | [phone] | [phone] | | | | | | Fax: | | | | | | | [phone] | | +--------+--------+ + + + + Encounter Details +--------+ + + + + | Date | Type | Department | Care Team | Description | +--------+ + + + + | 06/13/ | Hospital | [facility] | Lm, | Cardiomyopathy (HCC) | | 2012 | Encounter | MED CTR XRAY [address] | [place], [place] [address] | | | | | [place] | [place], | | | | | [place] [address] | [place] [address] | | | | | [phone] | [phone] | | | | | | | [...] | 03/25/20 | | | (VITAMIN D3) [address] | mouth Once a week. | | [...] + +--------+ + + + | [place] CARDIAC MUGA SCAN | Routin | 06/13/2013 | Cardiomyopathy | Results for this | | | e | 12:25 PM | (HCC) | procedure are in the | | | | PDT | | results section. | + +--------+ + + + documented in this encounter Results [place] Cardiac MUGA Scan (06/13/2013 12:25 PM PDT) + + | Specimen | + + | | + + + + + | Narrative | Performed At | + + + | [facility] | [place] | | Department [address] , [place] | [facility] | | [ rep [address]] [ rep [facility] | | st zip] Signed | - IMAGING | | | | | Patient Name: ZOFIA YOUNG Physician: | | | [id number].[id number] : 1960 Age: 52 Sex: F Unit #: [id number] | | | Exam Date: 06/13/13 Location: [facility] | | | Report #: [id number] Page: | | | %(RAD)RES..mtdd.print.filter("pg") of %(RAD) | | | RES..mtdd.print.filter("tpg") | | | | | | Accession Number: [id number] | | | REST EQUILIBRIUM VENTRICULOGRAPHY/MARKER SCAN: [...] Transcribed | | | Date/Time: 06/13/2013 12:52 Discharge Planner: | | | <<Signature on File>> | | | Endy | | | MD Melani [facility]06/14/13 0643 <Electronically signed by | | | Endy Polo MD, [facility], [facility], [facility], [place]> Suwong | | | MD Melnai [facility] JOSE 06/13/13 1225 Discharge Planner: Nabil | | | [id number]/13/13 [address] | | + + + + + + + + | Performing | Address | City/State/Zipcode | Phone Number | | Organization | | | | + + + + + | [facility] | [address] | [place] | [phone] | | [facility] | | [address] | | | - IMAGING | | | | + + + + + documented in this encounter Visit Diagnoses + + | Diagnosis | + + | Cardiomyopathy (HCC) Other primary cardiomyopathies | + + documented in this encounter
--- OUTSIDE RECORDS SUMMARY | ~2020-06-17 | XMS | Encounter Summary ---
Demographics + + + | Address | [address] | | | [place] [address] | + + + | Home Phone | | + + + | Preferred Language | Unknown | + + + | Marital Status | | + + + | Tenriism Affiliation | Unknown | + + + | Race | or | + + + | Ethnic Group | Not or | + + + Author + + + | Author | [facility] | | | and [place] | + + + | Organization | [facility] | | | and [place] [...] [place] | | | | | [address] | | + + + + + | Greta [place] | ECON | [place] | | | | | [address] | | + + + + + Care Team Providers + +------+ + | Care Type Caster Name | Role | Phone | + +------+ + PCP | Unavailable | + +------+ + Encounter Details +--------+ + + + + | Date | Type | Department | Care Team | Description | +--------+ + + + + | 01/13/ | Hospital | [facility] | [place], | | | 2011 - | Encounter | MED CTR MED ONC | Antonio Infante MD [address] | | | | | [address] | [facility] [facility] | | | 01/18/ | | [place] [address] | [address] [place] | | | 2011 | | [phone] | [address] | | | | | | | [...] encounter Discharge Summaries Antonio Renee MD - 01/14/2012 10:38 AM PDTADMISSION DATE: 01/14/2012 DISCHARGE DATE: 01/19/2012 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 PROCEDURES 1. Cycle #2B of Rituxan/hyper-CVAD chemotherapy. 2. Intrathecal administration of cytarabine. COMPLICATIONS: None. COMPLICATIONS: None. HOSPITAL COURSE: Frida Christian is a 51-year-old lone pine with Burkitt lymphoma, admitted to [facility] in [place], [place], on 01/14/2012, for cycle #2B of Rituxan/hyper-CV AD chemotherapy. On 01/14/2012, Frida was taken to the radiology suite, where lumbar puncture was performe d by Dr. Felisa Farias in my presence, and I subsequently administered 100 mg of preserv ative-free cytarabine , and extracted the needle without adverse effects. She subsequently went to the floor, where she rec eived 650 mg of oral Tylenol, 25 mg of intravenous Benadry l, and 700 mg of intravenous Rituxan, witho ut adverse effects. On 01/15/2012, she received 16 mg of oral Zofran, 20 mg of oral dexamethasone, and 375 mg o f intraven ous methotrexate over 2 hours, followed immediately by continuous intravenous in fusion of methotrexat e at 750 mg over the next 22 hours. Twenty-four hours after the compl etion of her methotrexate, she r eceived 50 mg of oral leucovorin, followed by 15 mg of ora l leucovorin every 6 hours thereafter. On 01/16/2012, she received 24 mg of oral Zofran, 20 mg of oral Decadron, and 2 doses of in travenous cytarabine at 2800 mg over 2 hours intravenous, by 12 hours. On 01/17/2012, she received 24 mg of oral Zofran, 20 mg of oral Decadron, and 2 doses of cy tarabine a t 2800 mg intravenous over 2 hours, with the doses by 12 hours. On 01/18/2012, she received 24 mg of oral Zofran, 20 mg of oral Decadron, and continued on her schedu led doses of oral leucovorin. On 01/19/2012, she received 6 mg of subcutaneous Neulasta, and her port-a-cath was then flu shed with 20 mL of normal saline and 5 mL of 100 unit/mL heparin, and de-accessed, without adverse effects. On 01/17/2012, she received 2 units of filtered irradiated CMV-negative packed red blood ce lls. Chemotherapy was generally well tolerated, except for one episode of emesis. She remained a febrile th roughout her hospitalization. PHYSICAL EXAMINATION VITAL SIGNS: Blood pressure is 153/93, respiratory rate 18, saturation of oxygen was 96% o n room air , pulse 68, temperature 36.4 degrees Celsius. HEENT: Sclerae was anicteric. The oropharynx is free of lesions. NECK: Supple without thyromegaly. LUNGS: Clear to auscultation. CARDIOVASCULAR: Regular rate and rhythm, normal S1, normal S2, without rubs, gallops or mu rmurs. CHEST: Notable for a left anterior chest Port-A-Cath, that remained [facility]. ABDOMEN: Soft, nontender, nondistended. No hepatomegaly. No splenomegaly. No ascites. LYMPH NODE SURVEY: No cervical, supraclavicular, axillary or inguinal lymphadenopathy. MUSCULOSKELETAL: No joint tenderness or swelling. EXTREMITIES: Without cyanosis, clubbing or edema. SKIN: Without petechiae or ecchymosis. NEUROLOGIC: She was quite awake, alert and comfortable during her hospitalization. Facies symmetric. Voice articulate. Station and gait were unimpaired. She was independent of al l of her activities of daily living. LABORATORY DATA: Hemoglobin 8.3, hematocrit 23.9%, platelet count 33,000, white count is 2 800. Sodiu m 137, potassium 3.6, chloride 101, CO2 30, BUN is 8, creatinine 0.55, glucose w as 98, calcium was 8. 9. Bilirubin 0.7, AST 18, ALT 18, alkaline phosphatase 71, total prot ein 5, albumin 2.9. DISCHARGE MEDICATIONS 1. Ativan 1 mg every 4 hours as needed for nausea and anxiety or restlessness. 2. Compazin e 10 mg every 6 hours as needed for nausea. 3. Diflucan 200 mg oral daily. 4. Levaquin 500 mg oral daily. 5. Lomotil 2.5 mg orally every loose stool as needed to control diarrhea. 6. Marinol 5 mg orally 3 times daily. 7. MiraLAX 17 g orally daily as needed for constipation. 8. Morphine sulfate immediate rel ease, 15 mg tablet, 1 tablet every 6 hours as needed for pain. 9. Fayette 5/325 mg tablet, 1 to 2 tablets every 4 hours as needed for pain. 10. OxyContin 40 mg orally twice daily, sche duled. 11. Prilosec 20 mg orally daily. 12. Senna 1 to 2 tablets every 12 hours as needed for constipation. 13. Septra DS 1 tablet orally twice daily on Mondays and only. 14. Acyclovir 800 mg orally daily. DISCHARGE PLAN: Frida to see Dr. Renee in the [facility] on January 24, 012, at 09 00 hours. DICTATED BY: Antonio Renee MD Oncology JOB #: [id number] EXT JOB #:[id number] <Electronicall y Signed by Antonio Renee MD> 01/21/12 1351 documented in this encounter H&P Notes Antonio Renee MD - 01/14/2012 10:38 AM PDTDATE: 01/14/2012 HISTORY AND PHYSICAL IDENTIFYING STATEMENT: Frida Christian is a 51-year-old [place] with Burkitt's lymphoma who wa s admitted to [facility] in [place], [place] on cycle# 2B d ay# 1 of Rituxan/hyper-CVAD chemotherapy. HISTORY OF PRESENT ILLNESS 1. Frida presented in 08/2011 with intractable searing abdominal pain. Symptoms progresse d, and on 10/05/2011 she underwent advanced imaging that demonstrated diffuse malignant lym phadenopathy through out the retroperitoneum. 2. Laparoscopic lymph node biopsy on 11/10/2011 at [facility] demonstrated a high-grade B-cell ly mphoma con sistent with Burkitt's lymphoma, positive for BCL-6, positive for CD-10, positiv e for CD-19, positive for CD-20, positive for CD-22, and positive for kappa light chains. 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 Whether or not her evaluation at the [facility] included bone marrow biopsy and aspirations i s uncertain. 3. Initiation of Rituxan/hyper-CVAD chemotherapy at [facility] on 11/15/2011. CHIEF COMPLAINT: Frida is admitted to the [facility] in [facility] on 01/14/2012 for cycle 2B day# 1 of Rituxan/hyper -CVAD chemotherapy. INTERVAL HISTORY: Notable for the fact that one week ago Frida had a left anterior chest Port-A-Cat h placed by Dr. Silvio Mendoza to facilitate IV therapy in the setting of her inabil ity to care for her o wn PICC line. CURRENT REVIEW OF SYSTEMS CONSTITUTIONAL: Positive for fatigue, nausea and anorexia. Denies vomiting. Denies weight l oss. Denie s high fevers, chills, night sweats. ENMT: Denies odynophagia, dysphagia or tinnitus. CARDIOVASCULAR: Denies chest pains, palpitations, orthopnea. She is having significant disc omfort ove r her left anterior chest Port-A-Cath and this was exacerbated by having it acc essed today. RESPIRATORY: Denies cough, hemoptysis or sputum production. GASTROINTESTINAL: Denies any searing abdominal pain. Denies constipation, diarrhea or brigh t red bloo d per rectum. GENITOURINARY: Denies hematuria or dysuria. MUSCULOSKELETAL: Chronic lumbar back pain is improved. NEUROLOGIC: She denies any headaches or visual changes. Denies any numbness or tingling in the extrem ities. ENDOCRINE: Denies heat or cold intolerance, polyuria or polydipsia. HEMATOLOGIC: Denies any spontaneous bruising or bleeding. PAST MEDICAL HISTORY: None. PAST SURGICAL HISTORY: section in 1981, left anterior chest Port-A-Cath 01/06/2012 . PSYCHOSOCIAL HISTORY: She is lone pine. She lives alone independently in [place], [place]. HABITS: Positive for tobacco use. Alcohol positive for remote history of alcohol use. FAMILY HISTORY: There is no history of cancer in first-degree relatives. ROUTINE MEDICATIONS 1. Acylovir 400 mg orally daily. 2. Marinol 5 mg orally 3 times daily. 3. Diflucan 200 mg orally twice daily. 4. Levaquin 500 mg orally daily. 5. Ativan 1 mg as needed for nausea, anxiety or restlessness. 6. Nystatin topical powder t opically twice daily. 7. Prilosec 20 mg orally daily. 8. OxyContin 40 mg orally twice daily. 9. MiraLax 17 g orally as needed. 10. Compazine 5-10 mg as needed for nausea. 11. Senna 1 to 2 tablets orally as needed for constipation. 12. Septra-DS one tablet orall y twice daily on Tuesdays and Fridays. ALLERGIES: NO KNOWN DRUG ALLERGIES. PHYSICAL EXAMINATION VITAL SIGNS: Blood pressure was 133/79, pulse is 93, temperature is 36.7 degrees Celsius. S aturation of oxygen is 97% on room air. Weight is 83.8 kg. HEENT: Sclerae is anicteric. The oropharynx is free of lesions. NECK: Supple without thyromegaly. LUNGS: Clear to auscultation. CARDIOVASCULAR: Regular rate and rhythm, normal S1, normal S2 without rubs, gallops or murm urs. CHEST: Her left anterior chest Port-A-Cath was accessed with a 20-gauge 1-inch Silver needle using the aseptic technique and flushed with 20 mL of normal saline and a blood return was noted. There was so me surrounding edema but no erythema around the left anterior chest Po rt-A-Cath. ABDOMEN: Soft, nontender, nondistended, no hepatomegaly, no splenomegaly. No ascites. LYMPH NODE SURVEY: No cervical, supraclavicular, axillary, or inguinal lymphadenopathy. MUSCULOSKELETAL: No joint tenderness or swelling. EXTREMITIES: Without cyanosis, clubbing, or edema. SKIN: The former right antecubital PICC line site is without drainage, erythema or tenderne ss. NEUROLOGIC: She is awake and alert. Face symmetric, voice articulate. Station and gait with in normal limits. LABORATORY DATA: Hemoglobin is 8.9, hematocrit 26.1%, platelet count 103,000, white count o f 6800. Co mprehensive metabolic panel: Sodium is 136, potassium 3.7, chloride 101, CO2 25, BUN is 4, creatinine 0.52, glucose 131 mg/dL. Calcium 9, bilirubin 0.4, AST is 19, ALT 12, alkaline phosphatase is 115, a nd is upper limits of normal (110). This is slightly elevat ed, potentially related to hematopoietic r ecovery. Her LDH is normal at 174, upper limits normal (180). Total protein is 5.8, lower limits of n ormal (6). Albumin is normal at 3.2. ASSESSMENT: BURKITT'S LYMPHOMA. PLAN: Frida Christian will be admitted to [facility] where she will be treated with cycle# 2B of Rituxan/hy per-CVAD chemotherapy. [facility] Kimberley Farias will perform a lumbar puncture and I will administ er 100 mg of preservative-free c ytarabine intrathecally. Admit to [facility] Dr. Renee, diagnosis Burkitt's lymphoma. Activity ad thai. Condition i s good. FU LL CODE. Vital signs are routine. ALLERGIES: NO KNOWN DRUG ALLERGIES. Blood prod ucts caused diarrhea. Nursing: Keep the patient's left chest Port-A-Cath accessed for IV th erapy and blood draws per CVC p rotocol. Diet as tolerated. Maintenance IV fluids: D5 1/2 n ormal saline at 125 mL an hour. Medications 1. Sodium bicarbonate 650 mg tablet, give 6 tablets orally x1, then give 4 tablets orally f our times daily. 2. Acyclovir 800 mg orally daily. 3. Lomotil 2.5 mg orally after each loose stool as needed for diarrhea. 4. Dronabinol 5 mg orally 3 times a day. 5. Diflucan is withheld during infusional chemotherapy. 6. Fayette 5/325 one or two tablets orally every 6 hours as needed for pain. 7. Levofloxacin is withheld during infusional chemotherapy. 8. Morphine sulfate immediate release 15 mg ta blet one tablet orally every 6 hours as needed for pain . 9. Nystatin Powder topically twice daily. 10. Formulary proton pump inhibitor will be administered orally once daily. 11. OxyContin 40 mg orally twice daily. 12. MiraLax 17 grams orally as needed for constipation. 13. Compazine 10 mg every 6 hours as needed for nausea. 14. Senna-S 1 tablet orally twice daily as needed for constipation. 15. Septra-DS one tabl et orally twice daily on Wednesday and . 16. Ativan 1 mg intravenous q.4h. as needed f or nausea, anxiety or restlessness. 17. Tylenol 650 mg orally every 6 hours as needed for f ever. 01/14/2012 Day 1. PROCEDURE NOTE: Frida was transported to the radiology suite where she was placed in the prone posi tion. Dr. Jorge Luis Farias prepped and draped the lumbar spine in the usual steri le manner and after l ocalizing the L2-L3 interspace through fluoroscopy, provided local an esthesia with 1% lidocaine and p erformed a lumbar puncture at which time I administered 10 0 mg of cytarabine and preservative-free sa line and then withdrew the needle. The patient tolerated the procedure without adverse effects. 01/14/2012 day 1. She will receive 650 mg of oral Tylenol, 25 mg of intravenous Benadryl, and 700 mg of intra venous Rit uxan, and 1000 mL of normal saline. Wednesday01/15/2012 day #2. She will receive 16 mg oral Zofran, 20 mg of oral Decadron; 375 mg of intravenous methotrex ate will b e given over 2 hours, to be followed immediately by a continuous infusion of met hotrexate at 750 mg o teodoro 22 hours. Wednesday01/16/2012. She will receive 24 mg of oral Zofran, 20 mg of oral Decadron, and 2800 mg of intravenous c ytarabine infused over 2 hours, and 250 mL of normal saline. Twelve hours later, she will r eceive dose #2 of cy tarabine at 2800 mg intravenously over 2 hours. Also, on Wednesday01/16/2012 day #3, she will begin leucovorin 50 mg orally daily beginning immediate ly at 12 hours after the completion of her methotrexate infusion. Wednesday01/17/2012. She will receive 24 mg of oral Zofran, 20 mg of oral Decadron, and 2800 mg of intravenous c ytarabine; dose #3 will be administered over 2 hours, followed 12 hours later by dose #4 of 2800 mg of intraven ous cytarabine. She will continue with leucovorin at a dose of 15 mg o rally every 6 hours. Wednesday01/18/2012 day #5. She will receive 24 mg of oral Zofran, 20 mg oral Decadron. She will continue with leucovor in at 15 m g orally every 6 hours. Wednesday01/19/2012. She will receive 6 mg of subcutaneous Neulasta and then be discharged home for followup eit her at the [facility] in [place], [place], or at [facility] in [place], [place] for ongoing followup. DICTATED BY: Antonio Renee MD Oncology JOB #: [id number] EXT JOB #:[id number] cc: Dylan Martinez MD [facility] <Electronically Signed by Antonio Renee MD> 01/14/12 1422 documented in this encounter Plan of Treatment Not on filedocumented as of this encounter Procedures + +--------+ + + + | Procedure Name | Priori | Date/Time | Associated Diagnosis | Comments | | | ty | | | | + +--------+ + + + | CBC WITH | Routin | 01/19/2012 | | Results for this | | DIFFERENTIAL | e | 7:38 AM | | procedure are in the | | | | PDT | | results section. | + +--------+ + + + | COMPREHENSIVE | Routin | 01/19/2012 | | Results for this | | METABOLIC PANEL | e | 7:38 AM | | procedure are in the | | | | PDT | | results section. | + +--------+ + + + | CBC WITH | Routin | 01/18/2012 | | Results for this | | DIFFERENTIAL | e | 7:02 AM | | procedure are in the | | | | PDT | | results section. | + +--------+ + + + | COMPREHENSIVE | Routin | 01/18/2012 | | Results for this | | METABOLIC PANEL | e | 7:02 AM | | procedure are in the | | | | PDT | | results section. | + +--------+ + + + | ABO RH | Routin | 01/17/2012 | | Results for this | | | e | 8:22 AM | | procedure are in the | | | | PDT | | results section. | + +--------+ + + + | ABO RH | Routin | 01/17/2012 | | | | | e | 8:22 AM | | | | | | PDT | | | + +--------+ + + + | ANTIBODY SCREEN | Routin | 01/17/2012 | | Results for this | | | e | 8:22 AM | | procedure are in the | | | | PDT | | results section. | + +--------+ + + + | CROSSMATCH (IN ML) | Routin | 01/17/2012 | | Results for this | | | e | 7:26 AM | | procedure are in the | | | | PDT | | results section. | + +--------+ + + + | CROSSMATCH (IN ML) | Routin | 01/17/2012 | | Results for this | | | e | 7:26 AM | | procedure are in the | | | | PDT | | results section. | + +--------+ + + + | CBC WITH | Routin | 01/17/2012 | | Results for this | | DIFFERENTIAL | e | 6:43 AM | | procedure are in the | | | | PDT | | results section. | + +--------+ + + + | COMPREHENSIVE | Routin | 01/17/2012 | | Results for this | | METABOLIC PANEL | e | 6:43 AM | | procedure are in the | | | | PDT | | results section. | + +--------+ + + + | CBC NO DIFFERENTIAL | Routin | 01/16/2012 | | Results for this | | | e | 12:12 PM | | procedure are in the | | | | PDT | | results section. | + +--------+ + + + | COMPREHENSIVE | Routin | 01/16/2012 | | Results for this | | METABOLIC PANEL | e | 12:12 PM | | procedure are in the | | | | PDT | | results section. | + +--------+ + + + | FL LUMBAR PUNCTURE | | 01/14/2012 | | Results for this | | DIAGNOSTIC | | 10:38 AM | | procedure are in the | | | | PDT | | results section. | + +--------+ + + + documented in this encounter Results Comprehensive Metabolic Panel (01/19/2012 7:38 AM PDT) + + + + + + | Component | Value | Ref Range | Performed | Pathologist | | | | | At | Signature | + + + + + + | Glucose | 98 | 70 - 109 mg/dL | [facility] | | | | | | [facility] | | | | | | [facility] | | | | | | [facility] - | | | | | | LABORATORY | | + + + + + + | Calcium | 8.6 | 8.3 - 10.5 | [facility] | | | | | mg/dL | [facility] | | | | | | [facility] | | | | | | [facility] - | | | | | | LABORATORY | | + + + + + + | Alkaline | 71 | 40 - 110 IU/L | [facility] | | | Phosphatase | | | [facility] | | | | | | [facility] | | | | | | C[facility] - | | | | | | LABORATORY | | + + + + + + | AST | 18 | 10 - 42 IU/L | [facility] | | | | | | [facility] | | | | | | [facility] | | | | | | [facility] - | | | | | | LABORATORY | | + + + + + + | ALT | 19 | 6 - 45 IU/L | [facility] | | | | | | [facility] | | | | | | [facility] | | | | | | [facility] - | | | | | | LABORATORY | | + + + + + + | Bilirubin | 0.7 | 0.2 - 1.0 mg/dL | [facility] | | | Total | | | [facility] | | | | | | [facility]ICAL | | | | | | CENTER - | | | | | | LABORATORY | | + + + + + + | Total | 5.0 (L) | 6.0 - 7.8 gm/dL | [facility] | | | Protein | | | [facility] | | | | | | MEDICAL | | | | | | CENTER - | | | | | | LABORATORY | | + + + + + + | Albumin | 2.9 (L) | 3.2 - 5.0 gm/dL | [facility] | | | | | | [facility] | | | | | | [facility] | | | | | | [facility] - | | | | | | LABORATORY | | + + + + + + | BUN | 8 | 7 - 18 mg/dL | [facility] | | | | | | [facility] | | | | | | [facility] | | | | | | C[facility] - | | | | | | LABORATORY | | + + + + + + | Creatinine | 0.55 (L) | 0.60 - 1.30 | [facility] [...] + + + + | BUN/Creatin | 14.5 | 12 - 20 | [facility] | [...] + + + + | CO2 | 30 | 24 - 31 mEq/L | [facility] | | | | | | [facility] | | | | | | [facility] | | | | | | [facility] - | | | | | | LABORATORY | | + + + + + + | Anion Gap | 9.6 | 6.0 - 17.0 | [facility] | [...] + | [facility] | [address] | [place], [place] | [phone] | | [facility] | | [address] | | | - LABORATORY | | | | + + + + + | [facility] | [address] | [place], [place] | | | [facility] | | [id number], [facility] | | | - LABORATORY | | | | + + + + + CBC with Differential (01/19/2012 7:38 AM PDT) + + + + + + | Component | Value | Ref Range | Performed | Pathologist | | | | | At | Signature | + + + + + + | White Blood | 2.8 (L) | 4.0 - 11.0 K/uL | [facility] | | | Cells | | | [facility] | | | | | | MEDICAL | | | | | | CENTER - | | | | | | LABORATORY | | + + + + + + | Red Blood | 2.72 (L) | 3.70 - 5.20 | [facility] | | | Cells | Comment: | M/uL | [facility] | | | | 3+ MICROCYTES | | MEDICAL | | | | 1+ TEAR DROP | | CENTER - | | | | | | LABORATORY | | + + + + + + | Hemoglobin | 8.3 (L) | 11.5 - 16.0 | [facility] | | | | | gm/dL | [facility] | | | | | | MEDICAL | | | | | | CENTER - | | | | | | LABORATORY | | + + + + + + | Hematocrit | 23.9 (L) | 34.0 - 47.0 % | [facility] | | | | | | [facility] | | | | | | MEDICAL | | | | | | CENTER - | | | | | | LABORATORY | | + + + + + + | MCV | 88.0 | 83.0 - 101.0 fL | [facility] [...] + + | MCHC | 34.6 | 32.0 - 36.0 | [facility] | | | | | g/dL | [facility] | | | | | | MEDICAL | | | | | | CENTER - | | | | | | LABORATORY | | + + + + + + | RDW-CV | 20.8 (H) | <15.0 % | [facility] | | | | | | [facility] | | | | | | MEDICAL | | | | | | CENTER - | | | | | | LABORATORY | | + + + + + + | Platelet | 33 (L) | 140 - 440 K/uL | [facility] | | | Count | | | [facility] | | | | | | MEDICAL | | | | | | CENTER - | | | | | | LABORATORY | | + + + + + + | % | 88.2 (H) | 45 - 75 % | [facility] | | | Neutrophils | | | [facility] | | | | | | MEDICAL | | | | | | CENTER - | | | | | | LABORATORY | | + + + + + + | % | 11.1 (L) | 20 - 45 % | [facility] | | | Lymphocytes | | | [facility] | | | | | | MEDICAL | | | | | | CENTER - | | | | | | LABORATORY | | + + + + + + | % Monocytes | 0.0 (L) | 4 - 12 % | [facility] | | | | | | [facility] | | | | | | MEDICAL | | | | | | CENTER - | | | | | | LABORATORY | | + + + + + + | % | 0.6 | 0 - 5 % | [facility] [...] + + | Absolute | 2.5 | 1.5 - 6.6 K/uL | [facility] | | | Neutrophils | | | [facility] | | | | | | MEDICAL | | | | | | CENTER - | | | | | | LABORATORY | | + + + + + + | Absolute | 0.3 (L) | 0.6 - 3.2 K/uL | [...] + + + + | FLAG | 1Comment: | | [facility] | | | | Thrombocytopenia | | [facility] | | | [...] + | [facility] | [address] | [place] | [phone] | | [facility] | | [address] | | | - LABORATORY | | | | + + + + + | [facility] | [address] | [place] | | | [facility] | | [id number], [facility] | | | - LABORATORY | | | | + + + + + Comprehensive Metabolic Panel (01/18/2012 7:02 AM PDT) + + + + + + | Component | Value | Ref Range | Performed | Pathologist | | | | | At | Signature | + + + + + + | Glucose | 121 (H) | 70 - 109 mg/dL | [facility] | | | | | | [facility] | | | | | | MEDICAL | | | | | | CENTER - | | | | | | LABORATORY | | + + + + + + | Calcium | 8.5 | 8.3 - 10.5 | [facility] | | | | | mg/dL | [facility] | | | | | | MEDICAL | | | | | | CENTER - | | | | | | LABORATORY | | + + + + + + | Alkaline | 77 | 40 - 110 IU/L | [facility] | | | Phosphatase | | | [facility] | | | | | | MEDICAL | | | | | | CENTER - | | | | | | LABORATORY | | + + + + + + | AST | 18 | 10 - 42 IU/L | [facility] | | | | | | [facility] | | | | | | MEDICAL | | | | | | CENTER - | | | | | | LABORATORY | | + + + + + + | ALT | 14 | 6 - 45 IU/L | [facility] | | | | | | [facility] | | | | | | MEDICAL | | | | | | CENTER - | | | | | | LABORATORY | | + + + + + + | Bilirubin | 0.8 (A) | 0.2 - 1.0 mg/dL | [facility] | | | Total | | | [facility] | | | | | | MEDICAL | | | | | | CENTER - | | | | | | LABORATORY | | + + + + + + | Total | 5.1 (L) | 6.0 - 7.8 gm/dL | [facility] | | | Protein | | | [facility] | | | | | | MEDICAL | | | | | | CENTER - | | | | | | LABORATORY | | + + + + + + | Albumin | 3.0 (L) | 3.2 - 5.0 gm/dL | [facility] [...] + + + + | Creatinine | 0.50 (L) | 0.60 - 1.30 | [facility] | | | | | mg/dL | [...] + + + + | BUN/Creatin | 22.0 (H) | 12 - 20 | [facility] | | | ine Ratio | | | [facility] | | | | | | MEDICAL | | | | | | CENTER - | | | | | | LABORATORY | | + + + + + + | Na | 139 | 136 - 149 mEq/L | [facility] [...] + + + + | CO2 | 30 | 24 - 31 mEq/L | [facility] | | | | [facility] | [facility]ICAL | | | | | | CENTER - | | | | | | LABORATORY | | + + + + + + | Anion Gap | 11.5 | 6.0 - 17.0 | [facility] | [...] [address] | [place] | [phone] | | [facility] | | [address] | | | - LABORATORY | | | | + + + + + | [facility] | [address] | [place] | | | [facility] | | [address] | | | - LABORATORY | | | | + + + + + CBC with Differential (01/18/2012 7:02 AM PDT) + + + + + + | Component | Value | Ref Range | Performed | Pathologist | | | | | At | Signature | + + + + + + | White Blood | 3.6 (L) | 4.0 - 11.0 K/uL | [facility] [...] | | Cells | | M/uL | [facility] | | | | | | MEDICAL [...] + + + + | MCH | 30.8 | 28.0 - 35.0 pg | [facility] [...] + + + + | RDW-CV | 20.2 (H) | <15.0 % | [facility] | | | | | | MEDICAL | | | | | | CENTER - | | | | | | LABORATORY | | + + + + + + | Platelet | 44 (L) | 140 - 440 K/uL | [facility] | | | Count | | | [facility] | | | | | | MEDICAL | | | | | | CENTER - | | | | | | LABORATORY | | + + + + + + | % | 88.8 (H) | 45 - 75 % | [facility] | | | Neutrophils | | | [facility] | | | | | | MEDICAL | | | | | | CENTER - | | | | | | LABORATORY | | + + + + + + | % | 10.9 (L) | 20 - 45 % | [facility] | | | Lymphocytes | | | [facility] | | | | | | MEDICAL | | | | | | CENTER - | | | | | | LABORATORY | | + + + + + + | % Monocytes | 0.0 (L) | 4 - 12 % | [facility] | | | | | [facility] | | | | | | MEDICAL | | | | | | CENTER - | | | | | | LABORATORY | | + + + + + + | % | 0.3 | 0 - 5 % | [facility] [...] + + + + | Absolute | 3.2 | 1.5 - 6.6 K/uL | [facility] | | | Neutrophils | | | [facility] | | | | | | MEDICAL | | | | | | CENTER - | | | | | | LABORATORY | | + + + + + + | Absolute | 0.4 (L) | 0.6 - 3.2 K/uL | [...] [address] | [place] | [phone] | | [facility] | | [address] | | | - LABORATORY | | | | + + + + + | [facility] | [address] | [place] | | | [facility] | | [address], [facility] | | | - LABORATORY | | | | + + + + + ABO Rh (01/17/2012 8:22 AM PDT) + +-------+ + + + | Component | Value | Ref Range | Performed | Pathologist | | | | | At | Signature | + +-------+ + + + | ABO | AP | | [facility] | | | | | [facility] | | | | | [...] + | [facility] | [address] | [place], [place] | [phone] | | [facility] | | [address] | | | - LABORATORY | | | | + + + + + | [facility] | [address] | [place], [place] | | | [facility] | | [id number] [place] [address] | | | - LABORATORY | | | | + + + + + Antibody Screen (01/17/2012 8:22 AM PDT) + + + + + [...] + | [facility] | [address] | [place] | [phone] | | [facility] | | [address] | | | - LABORATORY | | | | + + + + + | [facility] | [address] | [place], [place] | | | [facility] | | [address] | | | - LABORATORY | | | | + + + + + ABO Rh (01/17/2012 8:22 AM PDT) + + | Specimen | + + | | + + + + + + + | Performing | Address | City/State/Zipcode | Phone Number | | Organization | | | | + + + + + | [facility] | [address] | [place] | [phone] | | [facility] | | [address] | | | - LABORATORY | | | | + + + + + Product: PRBC (01/17/2012 7:26 AM PDT) + + + + + [...] + + + | UNIT # | [id number] | | [facility] | | | | [...] | + + + + + | [facility] | [address] | [place], [place] | [phone] | | [facility] | | [address] | | | - LABORATORY | | | | + + + + + | [facility] | | | | | [facility] | | | | | - LABORATORY | | | | + + + + + Product: PRBC (01/17/2012 7:26 AM PDT) + + + + + [...] + + + | UNIT # | [id number] | | [facility] | | | | [...] [address] | [place] | [phone] | | [facility] | | [address] | | | - LABORATORY | | | | + + + + + | [facility] | | | | | [facility] | | | | | - LABORATORY | | | | + + + + + Comprehensive Metabolic Panel (01/17/2012 6:43 AM PDT) + + + + + [...] + + + + | Calcium | 8.6 | 8.3 - 10.5 | [facility] | | | | | mg/dL | [facility] | | | | | | MEDICAL | | | | | | CENTER - | | | | | | LABORATORY | | + + + + + + | Alkaline | 71 | 40 - 110 IU/L | [facility] | | | Phosphatase | | | [facility] | | | | | | MEDICAL | | | | | | CENTER - | | | | | | LABORATORY | | + + + + + + | AST | 15 | 10 - 42 IU/L | [facility] [...] + + + + | Total | 4.9 (L) | 6.0 - 7.8 gm/dL | [facility] | | | Protein | | | [facility] | | | | | | MEDICAL | | | | | | CENTER - | | | | | | LABORATORY | | + + + + + + | Albumin | 2.8 (L) | 3.2 - 5.0 gm/dL | [facility] | | | | | | [facility] | | | | | | MEDICAL | | | | | | CENTER - | | | | | | LABORATORY | | + + + + + + | BUN | 13 | 7 - 18 mg/dL | [facility] | | | | | | [facility] | | | | | | MEDICAL | | | | | | CENTER - | | | | | | LABORATORY | | + + + + + + | Creatinine | 0.46 (L) | 0.60 - 1.30 | [facility] | | | | | mg/dL | [facility] | | | | | | MEDICAL | | | | | | CENTER - | | | | | | LABORATORY | | + + + + + + | Estimated | >60Comment: For | >60 mL/min/A | [facility] | | | GFR | -Americans, | [...] + + + + | BUN/Creatin | 28.3 (H) | 12 - 20 | [facility] [...] + + + + | CO2 | 31 | 24 - 31 mEq/L | [facility] | | | | | | [facility] | | | | | | MEDICAL | | | | | | CENTER - | | | | | | LABORATORY | | + + + + + + | Anion Gap | 7.6 | 6.0 - 17.0 | [facility] | [...] + | [facility] | [address] | [place], [place] | [phone] | | [facility] | | [address] | | | - LABORATORY | | | | + + + + + | [facility] | [address] | [place], [place] | | | [facility] | | [address], [facility] | | | - LABORATORY | | | | + + + + + CBC with Differential (01/17/2012 6:43 AM PDT) + + + + + + | Component | Value | Ref Range | Performed | Pathologist | | | | | At | Signature | + + + + + + | White Blood | 4.9 (A) | 4.0 - 11.0 K/uL | [facility] | | | Cells | | | [facility] | | | | | | MEDICAL | | | | | | CENTER - | | | | | | LABORATORY | | + + + + + + | Red Blood | 2.34 (L) | 3.70 - 5.20 | [facility] | | | Cells | | M/uL | [facility] | | | | | | MEDICAL | | | | | | CENTER - | | | | | | LABORATORY | | + + + + + + | Hemoglobin | 7.0 (LL)Comment: | 11.5 - 16.0 | [facility] [...] | | | | | NOTIFICATION? Y 01/17/12 | | | | | | @0657 by DEVON | | | | | | Clinical [...] + + + + | Hematocrit | 20.4 (L) | 34.0 - 47.0 % | [facility] | | | | | | [facility] | | | | | | [facility]ICAL | | | | | | [facility] - | | | | | | LABORATORY | | + + + + + + | MCV | 87.3 | 83.0 - 101.0 fL | [facility] | | | | | | [facility] | | | | | | [facility]ICAL | | | | | | CENTER - | | | | | | LABORATORY | | + + + + + + | MCH | 29.9 | 28.0 - 35.0 pg | [facility] | | | | | | [facility] | | | | | | MEDICAL | | | | | | CENTER - | | | | | | LABORATORY | | + + + + + + | MCHC | 34.2 | 32.0 - 36.0 | [facility] | | | | | g/dL | [facility] | | | | | | MEDICAL | | | | | | CENTER - | | | | | | LABORATORY | | + + + + + + | RDW-CV | 23.0 (H) | <15.0 % | [facility] | | | | | | [facility] | | | | | | MEDICAL | | | | | | CENTER - | | | | | | LABORATORY | | + + + + + + | Platelet | 51 (L) | 140 - 440 K/uL | [facility] | | | Count | | | [facility] | | | | | | MEDICAL | | | | | | CENTER - | | | | | | LABORATORY | | + + + + + + | % | 83.2 (H) | 45 - 75 % | [facility] | | | Neutrophils | | | [facility] | | | | | | MEDICAL | | | | | | CENTER - | | | | | | LABORATORY | | + + + + + + | % | 13.8 (L) | 20 - 45 % | [facility] | | | Lymphocytes | | | [facility] | | | | | | MEDICAL | | | | | | CENTER - | | | | | | LABORATORY | | + + + + + + | % Monocytes | 2.8 (L) | 4 - 12 % | [facility] | | | | | | [facility] | | | | | | MEDICAL | | | | | | CENTER - | | | | | | LABORATORY | | + + + + + + | % | 0.0 | 0 - 5 % | [facility] [...] + + + + | Absolute | 4.1 | 1.5 - 6.6 K/uL | [facility] | | | Neutrophils | | | [facility] | | | | | | MEDICAL | | | | | | CENTER - | | | | | | LABORATORY | | + + + + + + | Absolute | 0.7 | 0.6 - 3.2 K/uL | [facility] | | | Lymphocytes | | | [facility] | | | | | | MEDICAL | | | | | | CENTER - | | | | | | LABORATORY | | + + + + + + | Absolute | 0.1 | 0.0 - 1.0 K/uL | [facility] [...] + + | SUSPECTED | 1 (H)Comment: Dimorphic | | [facility] | | | PROBLEM IS: | Reds | | [facility] | | | [...] [address] | [place] | [phone] | | [facility] | | [address] | | | - LABORATORY | | | | + + + + + | [facility] | [address] | [place] | | | [facility] | | [address], [facility] | | | - LABORATORY | | | | + + + + + Comprehensive Metabolic Panel (01/16/2012 12:12 PM PDT) + + + + + + | Component | Value | Ref Range | Performed | Pathologist | | | | | At | Signature | + + + + + + | Glucose | 226 (H) | 70 - 109 mg/dL | [...] + + + + | Alkaline | 93 | 40 - 110 IU/L | [facility] [...] + + + + | ALT | 13 | 6 - 45 IU/L | [facility] [...] + + + + | Total | 5.6 (L) | 6.0 - 7.8 gm/dL | [facility] | | | Protein | | | [facility] | | | | | | MEDICAL | | | | | | CENTER - | | | | | | LABORATORY | | + + + + + + | Albumin | 3.1 (L) | 3.2 - 5.0 gm/dL | [facility] | | | | | | [facility] | | | | | | MEDICAL | | | | | | CENTER - | | | | | | LABORATORY | | + + + + + + | BUN | 8 | 7 - 18 mg/dL | [facility] | | | | | | [facility] | | | [facility] | [facility] | | | | | | CENTER - | | | | | | LABORATORY | | + + + + + + | Creatinine | 0.60 | 0.60 - 1.30 | [facility] | | | | | mg/dL | [facility] | | [facility] | [facility] | | | | | | C[facility] - | | | | | | LABORATORY | | + + + + + + | Estimated | >60Comment: For | >60 mL/min/A | [facility] | | | GFR | -Americans, | [...] + + + + | BUN/Creatin | 13.3 | 12 - 20 | [facility] | [...] + + + | Anion Gap | 11.6 | 6.0 - 17.0 | [facility] | [...] + | [facility] | [address] | [place], [place] | [phone] | | [facility] | | [address] | | | - LABORATORY | | | | + + + + + | [facility] | [address] | [place], [place] | | | [facility] | | [address], [facility] | | | - LABORATORY | | | | + + + + + CBC no Differential (01/16/2012 12:12 PM PDT) + + + + + + | Component | Value | Ref Range | Performed | Pathologist | | | | | At | Signature | + + + + + + | White Blood | 4.0 (A) | 4.0 - 11.0 K/uL | [facility] | | | Cells | | | [facility] | | | | | | MEDICAL | | | | | | CENTER - | | | | | | LABORATORY | | + + + + + + | Red Blood | 2.71 (L) | 3.70 - 5.20 | [facility] | | | Cells | | M/uL | [facility] | | | | | | MEDICAL | | | | | | CENTER - | | | | | | LABORATORY | | + + + + + + | Hemoglobin | 8.0 (L) | 11.5 - 16.0 | [facility] | | | | | gm/dL | [facility] | | | | | | MEDICAL | | | | | | CENTER - | | | | | | LABORATORY | | + + + + + + | Hematocrit | 23.4 (L) | 34.0 - 47.0 % | [facility] | | | | | | [facility] | | | | | | MEDICAL | | | | | | CENTER - | | | | | | LABORATORY | | + + + + + + | MCV | 86.2 | 83.0 - 101.0 fL | [facility] | | | | | | [facility] | | | | | | MEDICAL | | | | | | CENTER - | | | | | | LABORATORY | | + + + + + + | MCH | 29.5 | 28.0 - 35.0 pg | [facility] | | | | | | [facility] | | | | | | MEDICAL | | | | | | CENTER - | | | | | | LABORATORY | | + + + + + + | MCHC | 34.2 | 32.0 - 36.0 | [facility] | | | | | g/dL | [facility] | | | | | | MEDICAL | | | | | | CENTER - | | | | | | LABORATORY | | + + + + + + | RDW-CV | 22.0 (H)Comment: | <15.0 % | [facility] | | | | ANISOCYTOSIS 2+, | | [facility] | | | | [place] 1+ --- | | MEDICAL | | | | 01/16/12 1542 --- | | CENTER - | | | | RDW previously | | LABORATORY | | | | reported as: 22.0 | | | | | | H % @ Edited by: | | | | | | Kaley Nava @ | | | | | | Reason: SMEAR REVIEW | | | | + + + + + + | Platelet | 63 (L) | 140 - 440 K/uL | [facility] | | | Count | | | [facility] | | | | | | MEDICAL | | | | | | CENTER - | | | | | | LABORATORY | | + + + + + + | SUSPECTED | 1 (H)Comment: Dimorphic | | [facility] | | | PROBLEM IS: | Reds | | [facility] | | | [...] + | [facility] | [address] | [place] | [phone] | | [facility] | | [address] | | | - LABORATORY | | | | + + + + + | [facility] | [address] | [place] | | | [facility] | | [address], [facility] | | | - LABORATORY | | | | + + + + + FL Lumbar Puncture (01/14/2012 10:38 AM PDT) + + | Specimen | + + | | + + + + + | Narrative | Performed At | + + + | [facility] Diagnostic Imaging Department | [facility] | | [address] | [facility] | | FLUOROSCOPIC GUIDED LUMBAR | DIAG IMG | | PUNCTURE FOR ACCESS FOR INTRATHECAL CHEMOTHERAPY ADMINISTRATION: | | | 01/14/20 12 PROCEDURE: The procedure of lumbar puncture is | | | well known to the patient from prior encounters. Thi s is again | | | discussed, and written consent is obtained to proceed. A "time out" | | | was then performed to confirm the patient's identity and planned | | | procedure. With the patient in the prone position, fluoroscopy | | | was used to identify the entry point of the lumba r spine at the L3 | | | level. This area is prepped in sterile fashion and 1% Lidocaine was | | | instilled on t he proposed path of entry. A 22 gauge spinal needle | | | was then atraumatically advanced into the thecal sac. Crystal | | | clear spinal fluid was obtained. Dr. Renee is in attendance, | | | and at this point he administered intrathecal chemotherapy. The | | | needles were then withdrawn and procedure was terminat ed. No | | | difficulties or problems were encountered. IMPRESSION: | | | UNEVENTFUL LUMBAR PUNCTURE FOR INTRATHECAL CHEMOTHERAPY | | | ADMINISTRATION. Dictated Date/Time: 01/14/2012 14:49 | | | Transcribed Date/Time: 01/14/2012 15:40 Sound Engineering Technician: | | | <Electronically Signed by Jorge Luis Farias MD> 01/14/121957 | | + + + + + | Procedure Note | + + | Germain, Rad Conversion - 12/08/2013 4:56 PM [facility] | | Diagnostic Imaging Department [address] [place] | | FLUOROSCOPIC GUIDED LUMBAR PUNCTURE FOR ACCESS FOR | | INTRATHECAL CHEMOTHERAPY ADMINISTRATION: 01/14/2012 PROCEDURE: The procedure of lumbar | | puncture is well known to the patient from prior encounters. This is again discussed, | | and written consent is obtained to proceed. A "time out" was then performed to confirm | | the patient's identity and planned procedure. With the patient in the prone position, | | fluoroscopy was used to identify the entry point of the lumbar spine at the L3 level. | | This area is prepped in sterile fashion and 1% Lidocaine was instilled on the proposed | | path of entry. A 22 gauge spinal needle was then atraumatically advanced into the | | thecal sac. Crystal clear spinal fluid was obtained. Dr. Renee is in attendance, | | and at this point he administered intrathecal chemotherapy. The needles were then | | withdrawn and procedure was terminated. No difficulties or problems were encountered. | | IMPRESSION: UNEVENTFUL LUMBAR PUNCTURE FOR INTRATHECAL CHEMOTHERAPY ADMINISTRATION. | | Dictated Date/Time: 01/14/2012 14:49Transcribed Date/Time: 01/14/2012 | | 15:40Transcriptionist: <Electronically Signed by Jorge Luis Farias MD> 01/14/12 | | 1958 | |he administered intrathecal chemotherapy. The needles were then withdrawn and procedure wa s terminat | |ed. No difficulties or problems were encountered. | | | |IMPRESSION: UNEVENTFUL LUMBAR PUNCTURE FOR INTRATHECAL CHEMOTHERAPY ADMINISTRATION. | | | |Dictated Date/Time: 01/14/2012 14:49 | |Transcribed Date/Time: 01/14/2012 15:40 | |Sound Engineering Technician: | |<Electronically Signed by Jorge Luis Farias MD> 01/14/121957 | + + + +---------+ + + [...]
--- OUTSIDE RECORDS SUMMARY | ~2020-06-17 | XMS | Encounter Summary ---
Demographics + + + | Address | [address] | | | [place] [address] | + + + | Home Phone | | + + + | Preferred Language | Unknown | + + + | Marital Status | | + + + | Shinto Affiliation | Unknown | + + + | Race | or | + + + | Ethnic Group | Not or | + + + Author + + + | Author | [facility] | | | and [place] | + + + | Organization | [facility] | | | and [...] [place] | | | | | [address] | | + + + + + | Greta Broncheau | ECON | [place] | | | | | [address] | | + + + + + Care Team Providers + +------+ + | Care Director Of Operations Home Health Name | Role | Phone | + +------+ + PCP | Unavailable | + +------+ + Encounter Details +--------+ + + + + | Date | Type | Department | Care Team | Description | +--------+ + + + + | 01/27/ | Hospital | [facility] | [place], | | | 2011 - | Encounter | MED CTR MED ONC | Antonio Infante MD [address] | | | | | [address] | [facility] | | | 02/08/ | | [place] [id number] | [address] [place] | | | 2011 | | [phone] | [address] | | | | | | | [...] encounter Discharge Summaries Antonio Renee MD - 01/28/2012 2:34 PM PDTADMISSION DATE: 01/28/2012 DISCHARGE DATE: 02/09/2012 DISCHARGE/TRANSFER SUMMARY ADMITTING DIAGNOSES: 1. Burkitt's lymphoma. 2. Cycle #2B day #15 of Rituxan/hyper-CVAD chemotherapy with growth factor support. 3. Neutropenic fever. DISCHARGE DIAGNOSES: 1. BURKITT'S LYMPHOMA, UNCHANGED. 2. CYCLE #2B DAY #29 OF RITUXAN/HYPER-CVAD CHEMOTHERAPY WITH GROWTH FACTOR SUPPORT. 3. NEUTROPENIC FEVER RESOLVED. 4. ACUTE TUBULAR NECROSIS, POTENTIALLY RELATED TO INTRAVENOUS VANCOMYCIN. PROCEDURES: None. COMPLICATIONS: Acute tubular necrosis potentially related to vancomycin. CONSULTATIONS: Dr. Leander Last accepting physician of the [facility] [place] was c onsulted on 08/10/2012 and agreed to accept the patient in transfer. IDENTIFYING STATEMENT: Frida Christian is a 51-year-old woman with an establi shed diagn osis of Burkitt's lymphoma, who was admitted on 01/28/[address] [facility] in [place], [place], for neutropenic fever and, durin g the course of her hospitalizat ion, received advancing doses of vancomycin, up to 1.5 gra ms intravenously every 8 hours, and was fou nd to have acute tubular necrosis on 02/08/2012 with renal failure and bilateral pulmonary infiltrate s. She is now being transferred to [facility] for critical care managem ent which may include acu te dialysis and/or bronchoscopy with biopsy in the setting of ongoing thromb ocytopenia. PHYSICAL EXAMINATION VITAL SIGNS: Blood pressure was 93/65. Pulse was 105, temperature was 37.3 degrees Celsius and she reeves s been afebrile for 48 hours. Respiratory rate is 22, saturation of oxygen is 94 % on 3 L nasal cannul a. HEENT: Sclerae is anicteric. The oropharynx is free of lesions. LUNGS: Notable for diffuse bibasilar rales. CARDIOVASCULAR: Rapid and regular. CHEST: Notable for left anterior chest Port-A-Cath that is accessed with a Silver needle and is surrou nded by some excoriation but no tenderness or erythema. ABDOMEN: Distended with ascites but is soft and bowel sounds are present. EXTREMITIES: Notable for diffuse lower extremity edema to the hips bilaterally. NEUROLOGIC: She is somnolent but easily arousable and does answer all questions appropriate ly. She di d demonstrate insight into the current status of her condition and is willing to undergo hemodialysis if necessary to reverse her current condition. LABORATORY DATA: Hemoglobin is 7.2, hematocrit is 23.2%. White count is 2200 with an absolu te neutrop hil count of 1100, platelet count 34,000. Sodium 136, potassium 4.4, chloride 10 5, CO2 is 22, BUN is 14, creatinine is 3.23, glucose is 95. Total protein is 5.3, albumin 2 .4, calcium is 7.8, which corre cted for her albumin is 9.1. Chest x-ray performed on disch tova is notable for progressive bilateral patchy pulmonary infiltrates. Renal ultrasound de monstrated no evidence of hydronephrosis. Urinary el ectrolytes were notable for urine crea tinine of 19.27, urine sodium of 33, and a fractional excretion of sodium of 3.31%. PLAN 1. Neutropenic fever after chemotherapy has resolved and Frida Christian has been afebrile of f all anti biotics for 48 hours. 2. Acute tubular necrosis, likely secondary to advancing doses of nephrotoxic drugs includi ng vancomy griselda, Zosyn and furosemide. Frida will be transferred to the [facility] fo r acute dialysis if necessary to reverse her condition and agrees to transfer. 3. Bilateral pulmonary infiltrates. At this point the etiology is uncertain and may be due to either diffuse alveolar hemorrhage from her thrombocytopenia, versus transfusion related acute lung injury, versus ongoing drug induced pneumonitis from her prior exposure to meth otrexate, versus an infectious etiology, versus pulmonary edema. Further evaluation may req uire bronchoscopy, which, in the setting of thrombocytopenia, would need to be performed un emily controlled conditions with blood product suppo rt; also, not available currently at [facility] and, hence, if necessary, thi s will be performed also at [facility] after transfer. The case was discussed with Dr. Leander Last of the Department of Hematological Malign[facility] s, who is covering for the patient's primary oncologist, Dr. Dylan Martinez, and agrees to accept the patien t in transfer to the 14-K corey at [facility] . DICTATED BY: Antonio Renee MD Oncology JOB #: [id number] EXT JOB #:[id number] <Electronicall y Signed by Antonio Renee MD> 02/09/12 1013 documented in this encounter H&P Notes Antonio Renee MD - 01/28/2012 2:34 PM PDTDATE: 01/28/2012 IDENTIFYING STATEMENT: Frida Christian is a 51-year-old woman from [place], [place] with Bur carlota lymph cornelia who is admitted cycle #2b, day #15 of Rituxan, hyper-CVAD chemotherapy for t reatment of neutropen ic sepsis. IMMEDIATE HISTORY OF PRESENT ILLNESS: Frida received cycle #2b of her Rituxan, hyper-CVAD with high -dose methotrexate and cytarabine between 01/14/2012 and 01/19/2012 at the [facility] in [place], [place]. She received Neulasta 6 mg subcutaneously on 01/19/2012 and was discharged on a program of prophylactic acyclovir, Diflucan, Septra-DS and Levaquin. She presented for followup to the [facility] on the day of admission complaining of high fevers and shaking chills. Temperature was documented to be 3 9.9 degrees Celsius. Two sets of blood cultures were obtained and she began intravenous ant ibiotics with vancomycin. She also received a unit of single donor platelet apheresis for p latelet count of 8000, associated with b oth mucosal and cutaneous petechiae. She is now admitted to the [facility] for inpatient care o f her neut ropenic sepsis. PAST MEDICAL HISTORY: section in 1981. PAST SURGICAL HISTORY: Status post placement of a left anterior chest Port-A-Cath by Dr. Diane Mendoza. HABITS: No use or abuse of alcohol, no use or abuse of tobacco. ROUTINE MEDICATIONS 1. Acyclovir 800 mg orally daily. 2. Dexamethasone 0.1% ophthalmic solution one drop every 6 hours as needed for eye pain in each eye. 3. Lomotil 2.5 mg orally as needed for diarrhea. 4. Marinol 5 mg orally 3 times a day. 5. Diflucan 200 mg orally daily. 6. Mcdaniel 5/325 1-2 tablets every 4 hours as needed for pain. 7. Levaquin 500 mg orally dale ly. 8. Ativan 1 mg every 4 hours as needed for nausea, anxiety or restlessness. 9. Morphine mares lfate immediate release 15 mg every 6 hours as needed for pain. 10. Prilosec 20 mg orally d aily. 11. OxyContin 40 mg orally twice daily. 12. MiraLax 17 g orally once daily as needed for constipation. 13. Compazine 10 mg every 6 hours as needed for nausea. 14. Senna 1 to 2 tablets orally as needed for constipation. 15. Septra-DS one tablet orall y twice daily on Mondays and only. ALLERGIES: SHE HAS A CUTANEOUS ALLERGIC REACTION TO METAL. REVIEW OF SYSTEMS CONSTITUTIONAL: Positive for high fevers, shaking chills. Positive for fatigue. Positive fo r nausea w ith emesis. Positive for anorexia and weight loss. ENMT: Denies odynophagia, dysphagia, tinnitus. CARDIOVASCULAR: Denies chest pains, palpitations or orthopnea. RESPIRATORY: Positive for cough. GASTROINTESTINAL: Denies abdominal pain, constipation, diarrhea or bright red blood per rec supa. GENITOURINARY: Denies hematuria or dysuria. MUSCULOSKELETAL: Positive for myalgias, which she rates at 9/10. NEUROLOGIC: Denies headaches, visual changes or numbness or tingling in extremities. ENDOCRINE: Denies heat or cold intolerance, polyuria or polydipsia. HEMATOLOGIC: Denies any bleeding from her nose or mouth. No bright red blood per rectum, he maturia or hematemesis. PHYSICAL EXAMINATION VITAL SIGNS: Blood pressure was 122/75, pulse was 126, temperature was 39.9 degrees Celsius , saturati on of oxygen was 93% on room air. HEENT: Sclerae were anicteric, oropharynx free of lesions. NECK: Supple without thyromegaly. LUNGS: Clear to auscultation. CARDIOVASCULAR EXAM: Resting rapid rate without rubs, gallops, murmurs. ABDOMEN: Soft, nontender, nondistended, no hepatomegaly, no splenomegaly. No ascites. LYMPH NODE SURVEY: No cervical, supraclavicular, axillary, or inguinal lymphadenopathy. MUSCULOSKELETAL EXAM: No joint tenderness or swelling. SKIN: Notable for petechiae covering the lower extremities from the knees down. EXTREMITIES: There is no cyanosis, clubbing, or edema. NEUROLOGIC: She is awake and alert. Face symmetric. Voice articulate, and she was independe nt of all of her self care and [facility] LABORATORY DATA: Hemoglobin is 8.5, hematocrit 25%, platelet count was 8000, white count wa s 300 with an absolute neutrophil count of 12. A comprehensive metabolic panel was entirely within normal limit s except for a blood sugar of 164 mg/dL on a nonfasting sample. Chest x-ray was obtained, PA and late ral, that demonstrated no evidence for infiltrates. ASSESSMENT: NEUTROPENIC FEVER FOLLOWING METHOTREXATE AND CYTARABINE CHEMOTHERAPY FOR TREATM ENT OF BUR CARLOTA LYMPHOMA. PLAN: Two blood cultures were obtained, one from a peripheral site, one from her Port-A-Cat h in the [facility]. She received 1000 mg of intravenous vancomycin in the [facility] and will now be adm itted to [facility] for ongoing treatment with intravenous vancomycin at 1000 mg intravenously every 12 h ours. She will continue on Levaquin 500 mg orally daily, D iflucan 200 mg orally twice daily, and acyc lovir 400 mg orally once daily. For her thrombocytopenia, she received a single donor platelet apheresis unit in the [facility] an d we will monitor her blood counts on a daily basis in the hospital and transfus e additional blood pr oducts as needed. Once neutrophils have recovered and fevers have res olved, she will be discharged to home, anticipating her next cycle of chemotherapy with Rit uxan, cyclophosphamide, vincristine and Ad riamycin on 02/04/2012. DICTATED BY: Antonio Renee MD Oncology JOB #: [id number] EXT JOB #:[id number] <Electronicall y Signed by Antonio Renee MD> 01/29/12 0550 documented in this encounter Plan of Treatment Not on filedocumented as of this encounter Procedures + +--------+ + + + | Procedure Name | Priori | Date/Time | Associated Diagnosis | Comments | | | ty | | | | + +--------+ + + + | CBC WITH | Routin | 02/09/2012 | | Results for this | | DIFFERENTIAL | e | 5:48 AM | | procedure are in the | | | | PDT | | results section. | + +--------+ + + + | LACTATE | Routin | 02/09/2012 | | Results for this | | DEHYDROGENASE | e | 5:48 AM | | procedure are in the | | | | PDT | | results section. | + +--------+ + + + | COMPREHENSIVE | Routin | 02/09/2012 | | Results for this | | METABOLIC PANEL | e | 5:48 AM | | procedure are in the | | | | PDT | | results section. | + +--------+ + + + | RENAL FUNCTION PANEL | Routin | 02/08/2012 | | Results for this | | | e | 6:42 PM | | procedure are in the | | | | PDT | | results section. | + +--------+ + + + | UA, MICROSCOPIC, | Routin | 02/08/2012 | | Results for this | | REFLEX | e | 2:16 PM | | procedure are in the | | | | PDT | | results section. | + +--------+ + + + | URINALYSIS, REFLEX | Routin | 02/08/2012 | | Results for this | | MICROSCOPIC AND/OR | e | 2:16 PM | | procedure are in the | | CULTURE | | PDT | | results section. | + +--------+ + + + | SODIUM, URINE, | Routin | 02/08/2012 | | Results for this | | RANDOM | e | 2:16 PM | | procedure are in the | | | | PDT | | results section. | + +--------+ + + + | CREATININE, URINE, | Routin | 02/08/2012 | | Results for this | | RANDOM | e | 2:16 PM | | procedure are in the | | | | PDT | | results section. | + +--------+ + + + | CBC WITH | Routin | 02/08/2012 | | Results for this | | DIFFERENTIAL | e | 7:03 AM | | procedure are in the | | | | PDT | | results section. | + +--------+ + + + | COMPREHENSIVE | Routin | 02/08/2012 | | Results for this | | METABOLIC PANEL | e | 7:03 AM | | procedure are in the | | | | PDT | | results section. | + +--------+ + + + | CBC WITH | Routin | 02/07/2012 | | Results for this | | DIFFERENTIAL | e | 6:31 AM | | procedure are in the | | | | PDT | | results section. | + +--------+ + + + | BASIC METABOLIC | Routin | 02/07/2012 | | Results for this | | PANEL | e | 6:31 AM | | procedure are in the | | | | PDT | | results section. | + +--------+ + + + | CBC WITH | Routin | 02/06/2012 | | Results for this | | DIFFERENTIAL | e | 6:27 AM | | procedure are in the | | | | PDT | | results section. | + +--------+ + + + | BASIC METABOLIC | Routin | 02/06/2012 | | Results for this | | PANEL | e | 6:27 AM | | procedure are in the | | | | PDT | | results section. | + +--------+ + + + | VANCOMYCIN, TROUGH | Routin | 02/05/2012 | | Results for this | | | e | 4:26 PM | | procedure are in the | | | | PDT | | results section. | + +--------+ + + + | ABO RH | Routin | 02/05/2012 | | Results for this | | | e | 1:12 PM | | procedure are in the | | | | PDT | | results section. | + +--------+ + + + | ABO RH | Routin | 02/05/2012 | | | | | e | 1:12 PM | | | | | | PDT | | | + +--------+ + + + | ANTIBODY SCREEN | Routin | 02/05/2012 | | Results for this | | | e | 1:12 PM | | procedure are in the | | | | PDT | | results section. | + +--------+ + + + | CROSSMATCH (IN ML) | Routin | 02/05/2012 | | Results for this | | | e | 12:46 PM | | procedure are in the | | | | PDT | | results section. | + +--------+ + + + | CBC WITH | Routin | 02/05/2012 | | Results for this | | DIFFERENTIAL | e | 8:05 AM | | procedure are in the | | | | PDT | | results section. | + +--------+ + + + | BASIC METABOLIC | Routin | 02/05/2012 | | Results for this | | PANEL | e | 8:05 AM | | procedure are in the | | | | PDT | | results section. | + +--------+ + + + | CBC WITH | Routin | 02/04/2012 | | Results for this | | DIFFERENTIAL | e | 6:23 AM | | procedure are in the | | | | PDT | | results section. | + +--------+ + + + | BASIC METABOLIC | Routin | 02/04/2012 | | Results for this | | PANEL | e | 6:23 AM | | procedure are in the | | | | PDT | | results section. | + +--------+ + + + | POTASSIUM | Routin | 02/03/2012 | | Results for this | | | e | 12:41 PM | | procedure are in the | | | | PDT | | results section. | + +--------+ + + + | CBC WITH | Routin | 02/03/2012 | | Results for this | | DIFFERENTIAL | e | 7:25 AM | | procedure are in the | | | | PDT | | results section. | + +--------+ + + + | BASIC METABOLIC | Routin | 02/03/2012 | | Results for this | | PANEL | e | 7:24 AM | | procedure are in the | | | | PDT | | results section. | + +--------+ + + + | VANCOMYCIN, TROUGH | Routin | 02/02/2012 | | Results for this | | | e | 5:32 PM | | procedure are in the | | | | PDT | | results section. | + +--------+ + + + | ABO RH | Routin | 02/02/2012 | | Results for this | | | e | 9:02 AM | | procedure are in the | | | | PDT | | results section. | + +--------+ + + + | ABO RH | Routin | 02/02/2012 | | | | | e | 9:02 AM | | | | | | PDT | | | + +--------+ + + + | ANTIBODY SCREEN | Routin | 02/02/2012 | | Results for this | | | e | 9:02 AM | | procedure are in the | | | | PDT | | results section. | + +--------+ + + + | CROSSMATCH (IN ML) | Routin | 02/02/2012 | | Results for this | | | e | 8:36 AM | | procedure are in the | | | | PDT | | results section. | + +--------+ + + + | CROSSMATCH (IN ML) | Routin | 02/02/2012 | | Results for this | | | e | 8:36 AM | | procedure are in the | | | | PDT | | results section. | + +--------+ + + + | CLOSTRIDIUM | Routin | 02/01/2012 | | Results for this | | DIFFICILE TOXIN | e | 5:49 PM | | procedure are in the | | | | PDT | | results section. | + +--------+ + + + | VANCOMYCIN, TROUGH | Routin | 02/01/2012 | | Results for this | | | e | 7:14 AM | | procedure are in the | | | | PDT | | results section. | + +--------+ + + + | VANCOMYCIN, TROUGH | Routin | 01/30/2012 | | Results for this | | | e | 1:39 PM | | procedure are in the | | | | PDT | | results section. | + +--------+ + + + | BASIC METABOLIC | Routin | 01/30/2012 | | Results for this | | PANEL | e | 6:19 AM | | procedure are in the | | | | PDT | | results section. | + +--------+ + + + | CBC WITH | Routin | 01/30/2012 | | Results for this | | DIFFERENTIAL | e | 6:03 AM | | procedure are in the | | | | PDT | | results section. | + +--------+ + + + | VANCOMYCIN, PEAK | Routin | 01/29/2012 | | Results for this | | | e | 12:09 PM | | procedure are in the | | | | PDT | | results section. | + +--------+ + + + | ABO RH | Routin | 01/29/2012 | | Results for this | | | e | 8:38 AM | | procedure are in the | | | | PDT | | results section. | + +--------+ + + + | ABO RH | Routin | 01/29/2012 | | | | | e | 8:38 AM | | | | | | PDT | | | + +--------+ + + + | ANTIBODY SCREEN | Routin | 01/29/2012 | | Results for this | | | e | 8:38 AM | | procedure are in the | | | | PDT | | results section. | + +--------+ + + + | VANCOMYCIN TROUGH | Routin | 01/29/2012 | | Results for this | | | e | 8:38 AM | | procedure are in the | | | | PDT | | results section. | + +--------+ + + + | CROSSMATCH (IN ML) | Routin | 01/29/2012 | | Results for this | | | e | 8:26 AM | | procedure are in the | | | | PDT | | results section. | + +--------+ + + + | CROSSMATCH (IN ML) | Routin | 01/29/2012 | | Results for this | | | e | 8:26 AM | | procedure are in the | | | | PDT | | results section. | + +--------+ + + + | CROSSMATCH (IN ML) | Routin | 01/29/2012 | | Results for this | | | e | 8:26 AM | | procedure are in the | | | | PDT | | results section. | + +--------+ + + + | CROSSMATCH (IN ML) | Routin | 01/29/2012 | | Results for this | | | e | 8:26 AM | | procedure are in the | | | | PDT | | results section. | + +--------+ + + + | CBC WITH | Routin | 01/29/2012 | | Results for this | | DIFFERENTIAL | e | 5:25 AM | | procedure are in the | | | | PDT | | results section. | + +--------+ + + + | COMPREHENSIVE | Routin | 01/29/2012 | | Results for this | | METABOLIC PANEL | e | 5:25 AM | | procedure are in the | | | | PDT | | results section. | + +--------+ + + + | XR CHEST AP PORTABLE | | 01/28/2012 | | Results for this | | | | 2:34 PM | | procedure are in the | | | | PDT | | results section. | + +--------+ + + + | US RENAL LIMITED | | 01/28/2012 | | Results for this | | | | 2:34 PM | | procedure are in the | | | | PDT | | results section. | + +--------+ + + + | XR CHEST PA AND | | 01/28/2012 | | Results for this | | LATERAL | | 2:34 PM | | procedure are in the | | | | PDT | | results section. | + +--------+ + + + | XR CHEST PA AND | | 01/28/2012 | | Results for this | | LATERAL | | 2:34 PM | | procedure are in the | | | | PDT | | results section. | + +--------+ + + + | XR CHEST PA AND | | 01/28/2012 | | Results for this | | LATERAL | | 2:34 PM | | procedure are in the | | | | PDT | | results section. | + +--------+ + + + documented in this encounter Results Comprehensive Metabolic Panel (02/09/2012 5:48 AM PDT) + + + + + + | Component | Value | Ref Range | Performed | Pathologist | | | | | At | Signature | + + + + + + | Glucose | 119 (H) | 70 - 109 mg/dL | [facility] | | | | | [facility] | | | | | | [facility] | | | | | [facility] - | | | | | | [facility]ATORY | | + + + + + + | Calcium | 8.0 (L) | 8.3 - 10.5 | [facility] | | | | | mg/dL | [facility] | | | | | | [facility] | | | | | | [facility] - | | | | | | LABORATORY | | + + + + + + | Alkaline | 90 | 40 - 110 IU/L | [facility] | | | Phosphatase | | | [facility] | | | | | | [facility] | | | | | | [facility] - | | | | | | LABORATORY | | + + + + + + | AST | 11 | 10 - 42 IU/L | [facility] | | | | | | [facility] | | | | | | [facility] | | | | | | [facility] - | | | | | | LABORATORY | | + + + + + + | ALT | 9 | 6 - 45 IU/L | [facility] | | | | | | [facility] | | | | | | [facility] | | | | | | [facility] - | | | | | | LAB[facility]ATORY | | + + + + + + | Bilirubin | 0.8 | 0.2 - 1.0 mg/dL | [facility] | | | Total | | | [facility] | | | | | | [facility] | | | | | | [facility] - | | | | | | LABORATORY | | + + + + + + | Total | 4.8 (L) | 6.0 - 7.8 gm/dL | [facility] | | | Protein | | | [facility] | | | | | | [facility] | | | | | | [facility] - | | | | | | LABORATORY | | + + + + + + | Albumin | 2.3 (L) | 3.2 - 5.0 gm/dL | [...] + + + + | Creatinine | 3.92 (H) | 0.60 - 1.30 | [facility] | | | | | mg/dL | [facility] | | | | | | [facility] | | | | | | [facility] - | | | | | | LABORATORY | | + + + + + + | Estimated | 12 (L)Comment: For | >60 mL/min/A | [facility] | [...] + + + + | BUN/Creatin | 4.6 (L) | 12 - 20 | [facility] [...] + + + | Anion Gap | 14.1 | 6.0 - 17.0 | [facility] | [...] [address] | [place] | [phone] | | [facility] | | [address] | | | - LABORATORY | | | | + + + + + | [facility] | [address] | [place] | | | [facility] | | [address], [facility] | | | - LABORATORY | | | | + + + + + Lactate Dehydrogenase (02/09/2012 5:48 AM PDT) + +-------+ + + + | Component | Value | Ref Range | Performed | Pathologist | | | | | At | Signature | + +-------+ + + + | LDH TOTAL | 169 | 91 - 180 IU/L | [facility] [...] + | [facility] | [address] | [place], [place] | [phone] | | [facility] | | [address] | | | - LABORATORY | | | | + + + + + | [facility] | [address] | [place], [place] | | | [facility] | | [address], [facility] | | | - LABORATORY | | | | + + + + + CBC with Differential (02/09/2012 5:48 AM PDT) + + + + + + | Component | Value | Ref Range | Performed | Pathologist | | | | | At | Signature | + + + + + + | White Blood | 2.4 (LL)Comment: @VALUE | 4.0 - 11.0 K/uL | [facility] | | | Cells | CONSISTENT WITH PREVIOUS | | [facility] | | | | RESULTS | | MEDICAL | | | | | | CENTER - | | | | | | LABORATORY | | + + + + + + | Red Blood | 2.30 (L) | 3.70 - 5.20 | [facility] | | | Cells | | M/uL | [facility] | | | | | | MEDICAL | | | | | | CENTER - | | | | | | LABORATORY | | + + + + + + | Hemoglobin | 7.2 (LL)Comment: @VALUE | 11.5 - 16.0 | [facility] | | | | CONSISTENT WITH PREVIOUS | gm/dL | [facility] | | | | RESULTS | | MEDICAL | | | | | | CENTER - | | | | | | LABORATORY | | + + + + + + | Hematocrit | 21.3 (L) | 34.0 - 47.0 % | [facility] | | | | | | [facility] | | | | | | MEDICAL | | | | | | CENTER - | | | | | | LABORATORY | | + + + + + + | MCV | 92.4 | 83.0 - 101.0 fL | [facility] | | | | | | [facility] | | | | | | MEDICAL | | | | | | CENTER - | | | | | | LABORATORY | | + + + + + + | MCH | 31.3 | 28.0 - 35.0 pg | [facility] | | | | | | [facility] | | | | | | MEDICAL | | | | | | CENTER - | | | | | | LABORATORY | | + + + + + + | MCHC | 33.9 | 32.0 - 36.0 | [facility] | | | | | g/dL | [facility] | | | | | | MEDICAL | | | | | | CENTER - | | | | | | LABORATORY | | + + + + + + | RDW-CV | 14.6 | <15.0 % | [facility] | | | | | | [facility] | | | | | | MEDICAL | | | | | | CENTER - | | | | | | LABORATORY | | + + + + + + | Platelet | 38 (L)Comment: @VALUE | 140 - 440 K/uL | [facility] | | | Count | CONSISTENT WITH PREVIOUS | | [facility] | | | | RESULTS | | MEDICAL | | | | | | CENTER - | | | | | | LABORATORY | | + + + + + + | % | 46.8 | 45 - 75 % | [facility] [...] + + + | % Monocytes | 27.0 (H)Comment: @VALUE | 4 - 12 % | [facility] | | | | CONSISTENT WITH PREVIOUS | | [facility] | | | | RESULTS | | [...] + + + | Absolute | 1.1 (L) | 1.5 - 6.6 K/uL | [...] | | | Comment: | | [facility] | | | | Leukopenia | | MEDICAL | | | | Monocytosis % | | CENTER - | | | | Thrombocytopenia | | LABORATORY | | + + + + + + | SUSPECTED | 1 (H)Comment: Verify | | [facility] | | | PROBLEM IS: | Diff | | [facility] | | | [...] [address] | [place] | [phone] | | [facility] | | [address] | | | - LABORATORY | | | | + + + + + | [facility] | [address] | [place] | | | [facility] | | [address], [facility] | | | - LABORATORY | | | | + + + + + Renal Function Panel (02/08/2012 6:42 PM PDT) + + + + + [...] + + + + | Calcium | 8.2 (L) | 8.3 - 10.5 | [facility] | | | | | mg/dL | [facility] | | | | | | MEDICAL | | | | | | CENTER - | | | | | | LABORATORY | | + + + + + + | Phosphorus | 4.0 | 2.5 - 4.6 mg/dL | [facility] | | | | | | [facility] | | | | | | MEDICAL | | | | | | CENTER - | | | | | | LABORATORY | | + + + + + + | Albumin | 2.4 (L) | 3.2 - 5.0 gm/dL | [facility] | | | | | | [facility] | | | | | | MEDICAL | | | | | | CENTER - | | | | | | LABORATORY | | + + + + + + | BUN | 16 | 7 - 18 mg/dL | [facility] | | | | | | [facility] | | | | | | MEDICAL | | | | | | CENTER - | | | | | | LABORATORY | | + + + + + + | Creatinine | 3.23 (H) | 0.60 - 1.30 | [facility] | | | | | mg/dL | [facility] | | | | | | MEDICAL | | | | | | CENTER - | | | | | | LABORATORY | | + + + + + + | Estimated | 15 (L)Comment: For | >60 mL/min/A | [facility] | [...] + + + + | BUN/Creatin | 5.0 (L) | 12 - 20 | [facility] [...] + + + | Anion Gap | 13.4 | 6.0 - 17.0 | [facility] | [...] + | [facility] | [address] | [place] | [phone] | | [facility] | | [address] | | | - LABORATORY | | | | + + + + + | [facility] | [address] | [place], [place] | | | [facility] | | [address] | | | - LABORATORY | | | | + + + + + Sodium, Urine, Random (02/08/2012 2:16 PM PDT) + + + + + + | Component | Value | Ref Range | Performed | Pathologist | | | | | At | Signature | + + + + + + | Sodium, | 33Comment: NO NORMAL | mEq/L | [facility] | | | Urine | RANGE FOR RANDOM URINE | | [facility] | | | Random | SPECIMEN | | MEDICAL | | | | [...] + | [facility] | [address] | [place] | [phone] | | [facility] | | [address] | | | - LABORATORY | | | | + + + + + | [facility] | [address] | [place] | | | [facility] | | [id number] | | | - LABORATORY | | | | + + + + + UA, Microscopic, Reflex (02/08/2012 2:16 PM PDT) + + + + + + | Component | Value | Ref Range | Performed | Pathologist | | | | | At | Signature | + + + + + + | White Blood | 2-4 | 0 - 1 /hpf | [facility] | | | Cells, | | | [facility] | | | Urine | | | MEDICAL | | | | | | CENTER - | | | | | | LABORATORY | | + + + + + + | Red Blood | 0-2 | 0 - 4 /hpf | [facility] | | | Cells, | | | [facility] | | | Urine | | | MEDICAL | | | | | | CENTER - | | | | | | LABORATORY | | + + + + + + | Squamous | MODERATE | FEW /hps | [facility] | | | Epithelial | | | [facility] | | | Cells, | | | MEDICAL | | | Urine | | | CENTER - | | | | | | LABORATORY | | + + + + + + | Bacteria, | FEW | NONE /hpf | [facility] | | | Urine | | | [facility] | | | | | | MEDICAL | | | | | | CENTER - | | | | | | LABORATORY | | + + + + + + | Culture | NO | | [facility] | | | Indicated | | | [facility] | | [...] + | [facility] | [address] | [place], [place] | [phone] | | [facility] | | [address] | | | - LABORATORY | | | | + + + + + | [facility] | [address] | [place], [place] | | | [facility] | | [address] | | | - LABORATORY | | | | + + + + + Urinalysis, Reflex Microscopic and/or Culture (02/08/2012 2:16 PM PDT) + + + + + + | Component | Value | Ref Range | Performed | Pathologist | | | | | At | Signature | + + + + + + | COLLECTION | VOID | | [facility] | | | METHOD 1 | | | [facility] | | | | | | MEDICAL | | | | | | CENTER - | | | | | | LABORATORY | | + + + + + + | Color, | YELLOW | | [facility] | | | Urine | | | [facility] | | | | | | MEDICAL | | | | | | CENTER - | | | | | | LABORATORY | | + + + + + + | Clarity, | HAZY | | [facility] | | | Urine | | | [facility] | | | | | | MEDICAL | | | | | | CENTER - | | | | | | LABORATORY | | + + + + + + | Glucose, | NEGATIVE | NEGATIVE mg/dL | [facility] | | | Urine | | | [facility] | | | | | | MEDICAL | | | | | | CENTER - | | | | | | LABORATORY | | + + + + + + | Bilirubin, | NEGATIVE | NEGATIVE | [facility] | | | Urine | | | [facility] | | | | | | MEDICAL | | | | | | CENTER - | | | | | | LABORATORY | | + + + + + + | Ketones, | NEGATIVE | NEGATIVE | [facility] | | | Urine | | | [facility] | | | | | | MEDICAL | | | | | | CENTER - | | | | | | LABORATORY | | + + + + + + | Specific | 1.010 | 1.001 - 1.030 | [facility] | | | [place], | | | [facility] | | | Urine | | | MEDICAL | | | | | | CENTER - | | | | | | LABORATORY | | + + + + + + | Blood, | TRACE-LYSED | NEGATIVE | [facility] | | | Urine | | | [facility] | | | | | | MEDICAL | | | | | | CENTER - | | | | | | LABORATORY | | + + + + + + | pH, Urine | 5.5 | 5.0 - 8.0 | [facility] | | | | | | [facility] | | | | | | MEDICAL | | | | | | CENTER - | | | | | | LABORATORY | | + + + + + + | Protein, | 30 | NEGATIVE mg/dL | [facility] | | | Urine | | | [facility] | | | | | | MEDICAL | | | | | | CENTER - | | | | | | LABORATORY | | + + + + + + | Urobilinoge | NORMAL | NORMAL EU/dL | [facility] | | | n, Urine | | | [facility] | | | | | | MEDICAL | | | | | | CENTER - | | | | | | LABORATORY | | + + + + + + | Nitrite, | NEGATIVE | NEGATIVE | [facility] | | | Urine | | | [facility] | | | | | | MEDICAL | | | | | | CENTER - | | | | | | LABORATORY | | + + + + + + | Leukocyte | NEGATIVE | NEGATIVE | [facility] | | | Esterase, | | | [facility] | | | Urine | | | MEDICAL | | | | | | CENTER - | | | | | | LABORATORY | | + + + + + + | MICROSCOPIC | YES | | [facility] | | | ? | | | [facility] | | [...] + | [facility] | [address] | [place] | [phone] | | [facility] | | [address] | | | - LABORATORY | | | | + + + + + | [facility] | [address] | [place], [place] | | | [facility] | | [address] | | | - LABORATORY | | | | + + + + + Creatinine, Urine, Random (02/08/2012 2:16 PM PDT) + + + + + + | Component | Value | Ref Range | Performed | Pathologist | | | | | At | Signature | + + + + + + | Creatinine, | 19.27Comment: NO NORMAL | mg/dL | [facility] | | | Urine, | RANGE FOR RANDOM URINE | | [facility] | | | Random | SPECIMEN | | MEDICAL | | | | [...] + | [facility] | [address] | [place], [place] | [phone] | | [facility] | | [address] | | | - LABORATORY | | | | + + + + + | [facility] | [address] | [place], [place] | | | [facility] | | [address] | | | - LABORATORY | | | | + + + + + Comprehensive Metabolic Panel (02/08/2012 7:03 AM PDT) + + + + + + | Component | Value | Ref Range | Performed | Pathologist | | | | | At | Signature | + + + + + + | Glucose | 95 | 70 - 109 mg/dL | [facility] | | | | | | [facility] | | | | | | MEDICAL | | | | | | CENTER - | | | | | | LABORATORY | | + + + + + + | Calcium | 7.8 (L) | 8.3 - 10.5 | [facility] | | | | | mg/dL | [facility] | | | | | | MEDICAL | | | | | | CENTER - | | | | | | LABORATORY | | + + + + + + | Alkaline | 96 | 40 - 110 IU/L | [facility] [...] + + + + | ALT | 11 | 6 - 45 IU/L | [facility] [...] + + + + | Total | 5.3 (L) | 6.0 - 7.8 gm/dL | [facility] | | | Protein | | | [facility] | | | | | | MEDICAL | | | | | | CENTER - | | | | | | LABORATORY | | + + + + + + | Albumin | 2.4 (L) | 3.2 - 5.0 gm/dL | [...] + + + + | Creatinine | 2.63 (H) | 0.60 - 1.30 | [facility] | | | | | mg/dL | [facility] | | | | | | MEDICAL | | | | | | CENTER - | | | | | | LABORATORY | | + + + + + + | Estimated | 19 (L)Comment: For | >60 mL/min/A | [facility] | [...] + + + + | BUN/Creatin | 5.3 (L) | 12 - 20 | [facility] [...] + + + | Anion Gap | 11.2 | 6.0 - 17.0 | [facility] | [address] | [place] | [phone] | | [facility] | | [address] | | | - LABORATORY | | | | + + + + + | [facility] | [address] | [place], [place] | | | [facility] | | [address], [facility] | | | - LABORATORY | | | | + + + + + CBC with Differential (02/08/2012 7:03 AM PDT) + + + + + + | Component | Value | Ref Range | Performed | Pathologist | | | | | At | Signature | + + + + + + | White Blood | 2.4 (LL)Comment: @VALUE | 4.0 - 11.0 K/uL | [facility] | | | Cells | CONSISTENT WITH PREVIOUS | | [facility] | | | | RESULTS | | MEDICAL | | | | | | CENTER - | | | | | | LABORATORY | | + + + + + + | Red Blood | 2.50 (L) | 3.70 - 5.20 | [facility] | | | Cells | | M/uL | [facility] | | | | | | MEDICAL | | | | | | CENTER - | | | | | | LABORATORY | | + + + + + + | Hemoglobin | 7.8 (L) | 11.5 - 16.0 | [facility] | | | | | gm/dL | [facility] | | | | | | MEDICAL | | | | | | CENTER - | | | | | | LABORATORY | | + + + + + + | Hematocrit | 23.2 (L) | 34.0 - 47.0 % | [facility] | | | | | | [facility] | | | | | | MEDICAL | | | | | | CENTER - | | | | | | LABORATORY | | + + + + + + | MCV | 92.7 | 83.0 - 101.0 fL | [facility] | | | | | | [facility] | | | | | | MEDICAL | | | | | | CENTER - | | | | | | LABORATORY | | + + + + + + | MCH | 31.3 | 28.0 - 35.0 pg | [facility] | | | | | | [facility] | | | | | | MEDICAL | | | | | | CENTER - | | | | | | LABORATORY | | + + + + + + | MCHC | 33.8 | 32.0 - 36.0 | [facility] | | | | | g/dL | [facility] | | | | | | MEDICAL | | | | | | CENTER - | | | | | | LABORATORY | | + + + + + + | RDW-CV | 14.7 | <15.0 % | [facility] | | | | | | [facility] | | | | | | MEDICAL | | | | | | CENTER - | | | | | | LABORATORY | | + + + + + + | Platelet | 31 (L)Comment: @VALUE | 140 - 440 K/uL | [facility] | | | Count | CONSISTENT WITH PREVIOUS | | [facility] | | | | RESULTS | | MEDICAL | | | | | | CENTER - | | | | | | LABORATORY | | + + + + + + | % | 54.5 | 45 - 75 % | [facility] | | | Neutrophils | | | [facility] | | | | | | MEDICAL | | | | | | CENTER - | | | | | | LABORATORY | | + + + + + + | % | 21.8 | 20 - 45 % | [facility] | | | Lymphocytes | | | [facility] | | | | | | MEDICAL | | | | | | CENTER - | | | | | | LABORATORY | | + + + + + + | % Monocytes | 23.4 (H) | 4 - 12 % | [...] + + + + | Absolute | 1.3 (L) | 1.5 - 6.6 K/uL | [facility] | | | Neutrophils | | | [facility] | | | | | | MEDICAL | | | | | | CENTER - | | | | | | LABORATORY | | + + + + + + | Absolute | 0.5 (L) | 0.6 - 3.2 K/uL | [...] | | | | Comment: | | [facility] | | | | Leukopenia | | MEDICAL | | | | Thrombocytopenia | | CENTER - | | | | | | LABORATORY | | + + + + + + | SUSPECTED | 1 (H)Comment: Verify | | [facility] | | | PROBLEM IS: | Diff | | [facility] | | | [...] + | [facility] | [address] | [place], [place] | [phone] | | [facility] | | [address] | | | - LABORATORY | | | | + + + + + | [facility] | [address] | [place], [place] | | | [facility] | | [address], [facility] | | | - LABORATORY | | | | + + + + + Basic Metabolic Panel (02/07/2012 6:31 AM PDT) + + + + + + | Component | Value | Ref Range | Performed | Pathologist | | | | | At | Signature | + + + + + + | Glucose | 96 | 70 - 109 mg/dL | [facility] | | | | | | [facility] | | | | | | MEDICAL | | | | | | CENTER - | | | | | | LABORATORY | | + + + + + + | Calcium | 8.0 (L) | 8.3 - 10.5 | [facility] | | | | | mg/dL | [facility] | | | | | | MEDICAL | | | | | | CENTER - | | | | | | LABORATORY | | + + + + + + | BUN | 6 (L) | 7 - 18 mg/dL | [facility] | | | | | | [facility] | | | | | | MEDICAL | | | | | | CENTER - | | | | | | LABORATORY | | + + + + + + | Creatinine | 0.65 | 0.60 - 1.30 | [facility] | [...] + + + + | BUN/Creatin | 9.2 (L) | 12 - 20 | [facility] [...] + + + + | K | 3.4 (L) | 3.5 - 5.1 mEq/l | [...] + + + + | CO2 | 28 | 24 - 31 mEq/L | [facility] | | | | | | [facility] | | | | | | MEDICAL | | | | | | CENTER - | | | | | | LABORATORY | | + + + + + + | Anion Gap | 9.4 | 6.0 - 17.0 | [facility] | [...] + | [facility] | [address] | [place] | [phone] | | [facility] | | [address] | | | - LABORATORY | | | | + + + + + | [facility] | [address] | [place] | | | [facility] | | [address] | | | - LABORATORY | | | | + + + + + CBC with Differential (02/07/2012 6:31 AM PDT) + + + + + + | Component | Value | Ref Range | Performed | Pathologist | | | | | At | Signature | + + + + + + | White Blood | 1.4 (LL)Comment: @VALUE | 4.0 - 11.0 K/uL | [facility] | | | Cells | CONSISTENT WITH PREVIOUS | | [facility] | | | | RESULTS | | MEDICAL | | | | | | CENTER - | | | | | | LABORATORY | | + + + + + + | Red Blood | 2.09 (L) | 3.70 - 5.20 | [facility] | | | Cells | | M/uL | [facility] | | | | | | MEDICAL | | | | | | CENTER - | | | | | | LABORATORY | | + + + + + + | Hemoglobin | 6.6 (LL) | 11.5 - 16.0 | [facility] [...] | | | | RESULT CALLED TO IVÁN | | | | | | KNIFONG/3WM 02/07/12 | | | | | | @0637 by ARNSWI @ * | | | | | | READ BACK MUST BE | | | | | | OBTAINED * READ BACK | | | | | | PERFORMED? YES Nurses' | | | | | | [...] + + + + | MCV | 92.4 | 83.0 - 101.0 fL | [facility] | | | | | | [facility] | | | | | | MEDICAL | | | | | | CENTER - | | | | | | LABORATORY | | + + + + + + | MCH | 31.4 | 28.0 - 35.0 pg | [facility] [...] + + + + | RDW-CV | 14.7 | <15.0 % | [facility] | | | | | | [facility] | | | | | | MEDICAL | | | | | | CENTER - | | | | | | LABORATORY | | + + + + + + | Platelet | 19 (LL) | 140 - 440 K/uL | [facility] | | | Count | | | [facility] | | | | | | MEDICAL | | | | | | CENTER - | | | | | | LABORATORY | | + + + + + + | % | 56.9 | 45 - 75 % | [facility] | | | Neutrophils | | | [facility] | | | | | | MEDICAL | | | | | | CENTER - | | | | | | LABORATORY | | + + + + + + | % | 26.6 | 20 - 45 % | [facility] | | | Lymphocytes | | | [facility] | | | | | | MEDICAL | | | | | | CENTER - | | | | | | LABORATORY | | + + + + + + | % Monocytes | 16.2 (H) | 4 - 12 % | [...] + + + | Absolute | 0.8 (L) | 1.5 - 6.6 K/uL | [...] | | | Comment: | | [facility] | | | | Leukopenia | | MEDICAL | | | | Thrombocytopenia | | CENTER - | | | | | | LABORATORY | | + + + + + + + + | Specimen | + + | | + + + + + + + | Performing | Address | City/State/Zipcode | Phone Number | | Organization | | | | + + + + + | [facility] | [address] | [place] | [phone] | | [facility] | | [address] | | | - LABORATORY | | | | + + + + + | [facility] | [address] | [place], [place] | | | [facility] | | [address] | | | - LABORATORY | | | | + + + + + Basic Metabolic Panel (02/06/2012 6:27 AM PDT) + + + + + [...] + + + + | Calcium | 8.0 (L) | 8.3 - 10.5 | [facility] | | | | | mg/dL | [facility] | | | | | | MEDICAL | | | | | | CENTER - | | | | | | LABORATORY | | + + + + + + | BUN | 2 (L) | 7 - 18 mg/dL | [facility] | | | | | | [facility] | | | | | | MEDICAL | | | | | | CENTER - | | | | | | LABORATORY | | + + + + + + | Creatinine | 0.62 | 0.60 - 1.30 | [facility] | [...] + + + + | BUN/Creatin | 3.2 (L) | 12 - 20 | [facility] [...] | 3.2 (L) | 3.5 - 5.1 mEq/l | [...] + + + + | CO2 | 29 | 24 - 31 mEq/L | [facility] | | | | | | [facility] | | | | | | MEDICAL | | | | | | CENTER - | | | | | | LABORATORY | | + + + + + + | Anion Gap | 11.2 | 6.0 - 17.0 | [facility] | [...] + + | Performing | Address | City/[facility] | Phone Number | | Organization | | | | + + + + + | [facility] | [address] | [place] | [phone] | | [facility] | | [address] | | | - LABORATORY | | | | + + + + + | [facility] | [address] | [place] | | | [facility] | | [address], [facility] | | | - LABORATORY | | | | + + + + + CBC with Differential (02/06/2012 6:27 AM PDT) + + + + + + | Component | Value | Ref Range | Performed | Pathologist | | | | | At | Signature | + + + + + + | White Blood | 1.4 (LL)Comment: @VALUE | 4.0 - 11.0 K/uL | [facility] | | | Cells | CONSISTENT WITH PREVIOUS | | [facility] | | | | RESULTS | | MEDICAL | | | | | | CENTER - | | | | | | LABORATORY | | + + + + + + | Red Blood | 2.75 (L) | 3.70 - 5.20 | [facility] | | | Cells | | M/uL | [facility] | | | | | | MEDICAL | | | | | | CENTER - | | | | | | LABORATORY | | + + + + + + | Hemoglobin | 8.6 (L) | 11.5 - 16.0 | [facility] | | | | | gm/dL | [facility] | | | | | | MEDICAL | | | | | | CENTER - | | | | | | LABORATORY | | + + + + + + | Hematocrit | 24.9 (L) | 34.0 - 47.0 % | [facility] | | | | | | [facility] | | | | | | MEDICAL | | | | | | CENTER - | | | | | | LABORATORY | | + + + + + + | MCV | 90.6 | 83.0 - 101.0 fL | [facility] | | | | | | [facility] | | | | | | MEDICAL | | | | | | CENTER - | | | | | | LABORATORY | | + + + + + + | MCH | 31.2 | 28.0 - 35.0 pg | [facility] | | | | | | [facility] | | | | | | MEDICAL | | | | | | CENTER - | | | | | | LABORATORY | | + + + + + + | MCHC | 34.4 | 32.0 - 36.0 | [facility] | | | | | g/dL | [facility] | | | | | | MEDICAL | | | | | | CENTER - | | | | | | LABORATORY | | + + + + + + | RDW-CV | 14.8 | <15.0 % | [facility] | | | | | | [facility] | | | | | | MEDICAL | | | | | | CENTER - | | | | | | LABORATORY | | + + + + + + | Platelet | 14 (LL)Comment: @VALUE | 140 - 440 K/uL | [facility] | | | Count | CONSISTENT WITH PREVIOUS | | [facility] | | | | RESULTS | | MEDICAL | | | | | | CENTER - | | | | | | LABORATORY | | + + + + + + | % | 61.3 | 45 - 75 % | [facility] | | | Neutrophils | | | [facility] | | | | | | MEDICAL | | | | | | CENTER - | | | | | | LABORATORY | | + + + + + + | % | 29.7 | 20 - 45 % | [facility] | | | Lymphocytes | | | [facility] | | | | | | MEDICAL | | | | | | CENTER - | | | | | | LABORATORY | | + + + + + + | % Monocytes | 8.5 | 4 - 12 % | [facility] [...] + + + | Absolute | 0.9 (L) | 1.5 - 6.6 K/uL | [...] + | [facility] | 1 | | [facility] | | | | Comment: | | [facility] | | | | Leukopenia | | MEDICAL | | | | Thrombocytopenia | | CENTER - | | | [...] [address] | [place] | [phone] | | [facility] | | [address] | | | - LABORATORY | | | | + + + + + | [facility] | [address] | [place] | | | [facility] | | [address] | | | - LABORATORY | | | | + + + + + Vancomycin, Trough (02/05/2012 4:26 PM PDT) + + + + + + | Component | Value | Ref Range | Performed | Pathologist | | | | | At | Signature | + + + + + + | Vancomycin | 18.7Comment: | ug/mL | [facility] | | | Trough | OPTIMAL TROUGH VALUE: | | [facility] | | | | 10-20 ug/dL | | MEDICAL | | | | ALERT VALUE: greater | | CENTER - | | | | than 20 ug/dL | | LABORATORY | | + + + + + + + + | Specimen | + + | | + + + + + + + | Performing | Address | City/State/Zipcode | Phone Number | | Organization | | | | + + + + + | [facility] | [address] | [place] | [phone] | | [facility] | | [address] | | | - LABORATORY | | | | + + + + + | [facility] | [address] | [place] | | | [facility] | | [address], [facility] | | | - LABORATORY | | | | + + + + + ABO Rh (02/05/2012 1:12 PM PDT) + +-------+ + + + [...] + | [facility] | [address] | [place] | [phone] | | [facility] | | [address] | | | - LABORATORY | | | | + + + + + | [facility] | [address] | [place] | | | [facility] | | [address], [facility] | | | - LABORATORY | | | | + + + + + Antibody Screen (02/05/2012 1:12 PM PDT) + + + + + [...] + | [facility] | [address] | [place], [place] | [phone] | | [facility] | | [address] | | | - LABORATORY | | | | + + + + + | [facility] | [address] | [place], [place] | | | [facility] | | [address], [facility] | | | - LABORATORY | | | | + + + + + ABO Rh (02/05/2012 1:12 PM PDT) + + | Specimen | + + | | + + + + + + + | Performing | Address | City/State/Zipcode | Phone Number | | Organization | | | | + + + + + | [facility] | [address] | [place], [place] | [phone] | | [facility] | | [address] | | | - LABORATORY | | | | + + + + + Product: PRBC (02/05/2012 12:46 PM PDT) + + + + + [...] + + + | UNIT # | [id number] | | [facility] | | | | [...] [address] | [place] | [phone] | | [facility] | | [address] | | | - LABORATORY | | | | + + + + + | [facility] | | | | | [facility] | | | | | - LABORATORY | | | | + + + + + Basic Metabolic Panel (02/05/2012 8:05 AM PDT) + + + + + + | Component | Value | Ref Range | Performed | Pathologist | | | | | At | Signature | + + + + + + | Glucose | 138 (H) | 70 - 109 mg/dL | [facility] | | | | | [facility] | [facility] | | | | | | [facility] - | | | | | | LABORATORY | | + + + + + + | Calcium | 7.9 (L) | 8.3 - 10.5 | [facility] | | | | | mg/dL | [facility] | | | | | | [facility] | | | | | | C[facility] - | | | | | | LABORATORY | | + + + + + + | BUN | 3 (L) | 7 - 18 mg/dL | [facility] | | | | | | [facility] | | | | | | [facility] | | | | | | CENTER - | | | | | | LABORATORY | | + + + + + + | Creatinine | 0.58 (L) | 0.60 - 1.30 | [facility] [...] + + + + | BUN/Creatin | 5.2 (L) | 12 - 20 | [facility] [...] + + + + | K | 2.9 (L)Comment: LOW | 3.5 - 5.1 mEq/l | [facility] | | | | [facility] | | [facility] | | | | [facility] WITH LOW | | MEDICAL | | | | MAGNESIUM. IF THIS MAY | | CENTER - | | | | BE RELEVANT IN THIS | | LABORATORY | | | | CASE, PLEASE ORDER | | | | | | MAGNESIUM LEVEL. | | | | + + + [...] + + + | Anion Gap | 10.9 | 6.0 - 17.0 | [facility] | [...] + | [facility] | [address] | [place], [place] | [phone] | | [facility] | | [address] | | | - LABORATORY | | | | + + + + + | [facility] | [address] | [place] | | | [facility] | | [address], [facility] | | | - LABORATORY | | | | + + + + + CBC with Differential (02/05/2012 8:05 AM PDT) + + + + + + | Component | Value | Ref Range | Performed | Pathologist | | | | | At | Signature | + + + + + + | White Blood | 1.3 (LL)Comment: @VALUE | 4.0 - 11.0 K/uL | [facility] | | | Cells | CONSISTENT WITH PREVIOUS | | [facility] | | | | RESULTS | | MEDICAL | | | | | | CENTER - | | | | | | LABORATORY | | + + + + + + | Red Blood | 2.56 (L) | 3.70 - 5.20 | [facility] | | | Cells | | M/uL | [facility] | | | | | | MEDICAL | | | | | | CENTER - | | | | | | LABORATORY | | + + + + + + | Hemoglobin | 8.1 (L) | 11.5 - 16.0 | [facility] | | | | | gm/dL | [facility] | | | | | | MEDICAL | | | | | | CENTER - | | | | | | LABORATORY | | + + + + + + | Hematocrit | 23.2 (L) | 34.0 - 47.0 % | [facility] | | | | | | [facility] | | | | | | MEDICAL | | | | | | CENTER - | | | | | | LABORATORY | | + + + + + + | MCV | 90.6 | 83.0 - 101.0 fL | [facility] | | | | | | [facility] | | | | | | MEDICAL | | | | | | CENTER - | | | | | | LABORATORY | | + + + + + + | MCH | 31.6 | 28.0 - 35.0 pg | [facility] | | | | | | [facility] | | | | | | MEDICAL | | | | | | CENTER - | | | | | | LABORATORY | | + + + + + + | MCHC | 34.8 | 32.0 - 36.0 | [facility] | | | | | g/dL | [facility] | | | | | | [facility]ICAL | | | | | | CENTER - | | | | | | LABORATORY | | + + + + + + | RDW-CV | 14.2 | <15.0 % | [facility] | | | | | | [facility] | | | [facility] | [facility] | | | | | | [facility] - | | | | | | LABORATORY | | + + + + + + | Platelet | 13 (LL)Comment: @VALUE | 140 - 440 K/uL | [facility] | | | Count | CONSISTENT WITH PREVIOUS | | [facility] | | | | RESULTS | | MEDICAL | | | | | | CENTER - | | | | | | LABORATORY | | + + + + + + | % | 66.1Comment: @VALUE | 45 - 75 % | [facility] | | | Neutrophils | CONSISTENT WITH PREVIOUS | | [facility] | | | | RESULTS | | MEDICAL | | | | | | CENTER - | | | | | | LABORATORY | | + + + + + + | % | 25.4 | 20 - 45 % | [facility] | | | Lymphocytes | | | [facility] | | | | | | MEDICAL | | | | | | CENTER - | | | | | | LABORATORY | | + + + + + + | % Monocytes | 8.0 | 4 - 12 % | [facility] [...] + + + | % Basophils | 0.4 | 0 - 1 % | [facility] | | | | | | [facility] | | | | | | MEDICAL | | | | | | CENTER - | | | | | | LABORATORY | | + + + + + + | Absolute | 0.8 (L) | 1.5 - 6.6 K/uL | [...] | | | Comment: | | [facility] | | | | Leukopenia | | MEDICAL | | | | Thrombocytopenia | | CENTER - | | | | | | LABORATORY | | + + + + + + + + | Specimen | + + | | + + + + + + + | Performing | Address | City/State/Zipcode | Phone Number | | Organization | | | | + + + + + | [facility] | [address] | [place] | [phone] | | [facility] | | [address] | | | - LABORATORY | | | | + + + + + | [facility] | [address] | [place] | | | [facility] | | [address] | | | - LABORATORY | | | | + + + + + Basic Metabolic Panel (02/04/2012 6:23 AM PDT) + + + + + + | Component | Value | Ref Range | Performed | Pathologist | | | | | At | Signature | + + + + + + | Glucose | 103 | 70 - 109 mg/dL | [facility] | | | | | | [facility] | | | | | | MEDICAL | | | | | | CENTER - | | | | | | LABORATORY | | + + + + + + | Calcium | 8.0 (L) | 8.3 - 10.5 | [facility] | | | | | mg/dL | [facility] | | | | | | MEDICAL | | | | | | CENTER - | | | | | | LABORATORY | | + + + + + + | BUN | 3 (L) | 7 - 18 mg/dL | [facility] | | | | | | [facility] | | | | | | MEDICAL | | | | | | CENTER - | | | | | | LABORATORY | | + + + + + + | Creatinine | 0.48 (L) | 0.60 - 1.30 | [facility] | [...] + + + + | BUN/Creatin | 6.3 (L) | 12 - 20 | [facility] [...] | 3.2 (L) | 3.5 - 5.1 mEq/l | [...] + + + | Anion Gap | 8.2 | 6.0 - 17.0 | [facility] | [...] + | [facility] | [address] | [place], [place] | [phone] | | [facility] | | [address] | | | - LABORATORY | | | | + + + + + | [facility] | [address] | [place], [place] | | | [facility] | | [address] [place] [address] | | | - LABORATORY | | | | + + + + + CBC with Differential (02/04/2012 6:23 AM PDT) + + + + + + | Component | Value | Ref Range | Performed | Pathologist | | | | | At | Signature | + + + + + + | White Blood | 1.4 (LL)Comment: @VALUE | 4.0 - 11.0 K/uL | [facility] | | | Cells | CONSISTENT WITH PREVIOUS | | [facility] | | | | RESULTS | | MEDICAL | | | | | | CENTER - | | | | | | LABORATORY | | + + + + + + | Red Blood | 2.76 (L) | 3.70 - 5.20 | [facility] [...] + + + + | MCV | 91.3 | 83.0 - 101.0 fL | [facility] | | | | | | [facility] | | | | | | MEDICAL | | | | | | CENTER - | | | | | | LABORATORY | | + + + + + + | MCH | 31.6 | 28.0 - 35.0 pg | [facility] [...] + + + + | RDW-CV | 14.6 | <15.0 % | [facility] | | | | | | [facility] | | | | | | MEDICAL | | | | | | CENTER - | | | | | | LABORATORY | | + + + + + + | Platelet | 10 (LL)Comment: @VALUE | 140 - 440 K/uL | [facility] | | | Count | CONSISTENT WITH PREVIOUS | | [facility] | | | | RESULTS | | MEDICAL | | | | | | CENTER - | | | | | | LABORATORY | | + + + + + + | % | 61.5 | 45 - 75 % | [facility] | | | Neutrophils | | | [facility] | | | | | | MEDICAL | | | | | | CENTER - | | | | | | LABORATORY | | + + + + + + | % | 31.9 | 20 - 45 % | [facility] | | | Lymphocytes | | | [facility] | | | | | | MEDICAL | | | | | | CENTER - | | | | | | LABORATORY | | + + + + + + | % Monocytes | 6.4 | 4 - 12 % | [facility] [...] + + + | Absolute | 0.9 (L) | 1.5 - 6.6 K/uL | [facility] | | | Neutrophils | | | [facility] | | | | | | MEDICAL | | | | | | CENTER - | | | | | | LABORATORY | | + + + + + + | Absolute | 0.5 (L) | 0.6 - 3.2 K/uL | [facility] | | | Lymphocytes | | | [facility] | | [...] | | MEDICAL | | | | Thrombocytopenia | | CENTER - | | | | | | LABORATORY | | + + + + + + + + | Specimen | + + | | + + + + + + + | Performing | Address | City/State/Zipcode | Phone Number | | Organization | | | | + + + + + | [facility] | [address] | [place], [place] | [phone] | | [facility] | | [address] | | | - LABORATORY | | | | + + + + + | [facility] | [address] | [place], [place] | | | [facility] | | [address] [place] [address] | | | - LABORATORY | | | | + + + + + Potassium (02/03/2012 12:41 PM PDT) + + + + + + | Component | Value | Ref Range | Performed | Pathologist | | | | | At | Signature | + + + + + + | K | 2.8 (L)Comment: LOW | 3.5 - 5.1 mEq/l | [facility] | | | | POTASSIUM OFTEN | | [facility] | | | | [facility] WITH LOW | | MEDICAL | | | | MAGNESIUM. IF THIS MAY | | CENTER - | | | | BE RELEVANT IN THIS | | LABORATORY | | | | CASE, PLEASE ORDER | | | | | | MAGNESIUM LEVEL. | | | | + + + + + + + + | Specimen | + + | | + + + + + + + | Performing | Address | City/State/Zipcode | Phone Number | | Organization | | | | + + + + + | [facility] | [address] | [place], [place] | [phone] | | [facility] | | [address] | | | - LABORATORY | | | | + + + + + | [facility] | [address] | [place] | | | [facility] | | [address] | | | - LABORATORY | | | | + + + + + CBC with Differential (02/03/2012 7:25 AM PDT) + + + + + + | Component | Value | Ref Range | Performed | Pathologist | | | | | At | Signature | + + + + + + | White Blood | 1.1 (LL)Comment: @VALUE | 4.0 - 11.0 K/uL | [facility] | | | Cells | CONSISTENT WITH PREVIOUS | | [facility] | | | | RESULTS | | MEDICAL | | | | | | CENTER - | | | | | | LABORATORY | | + + + + + + | Red Blood | 3.10 (L) | 3.70 - 5.20 | [facility] [...] + + + + | Hematocrit | 28.0 (L) | 34.0 - 47.0 % | [facility] | | | | | | [facility] | | | | | | MEDICAL | | | | | | CENTER - | | | | | | LABORATORY | | + + + + + + | MCV | 90.3 | 83.0 - 101.0 fL | [facility] | | | | | | [facility] | | | | | | MEDICAL | | | | | | CENTER - | | | | | | LABORATORY | | + + + + + + | MCH | 31.8 | 28.0 - 35.0 pg | [facility] [...] + + + + | RDW-CV | 14.8 | <15.0 % | [facility] | | | | | | [facility] | | | | | | MEDICAL | | | | | | CENTER - | | | | | | LABORATORY | | + + + + + + | Platelet | 10 (LL)Comment: @VALUE | 140 - 440 K/uL | [facility] | | | Count | CONSISTENT WITH PREVIOUS | | [facility] | | | | RESULTS | | MEDICAL | | | | | | CENTER - | | | | | | LABORATORY | | + + + + + + | % | 65.1 (A) | 45 - 75 % | [facility] | | | Neutrophils | | | [facility] | | | | | | MEDICAL | | | | | | CENTER - | | | | | | LABORATORY | | + + + + + + | % | 31.3 | 20 - 45 % | [facility] | | | Lymphocytes | | | [facility] | | | | | | MEDICAL | | | | | | CENTER - | | | | | | LABORATORY | | + + + + + + | % Monocytes | 3.3 (L) | 4 - 12 % | [...] | | | Comment: | | [facility] | | | | Leukopenia | | MEDICAL | | | | Thrombocytopenia | | CENTER - | | | | | | LABORATORY | | + + + + + + + + | Specimen | + + | | + + + + + + + | Performing | Address | City/State/Zipcode | Phone Number | | Organization | | | | + + + + + | [facility] | [address] | [place], [place] | [phone] | | [facility] | | [address] | | | - LABORATORY | | | | + + + + + | [facility] | [address] | [place], [place] | | | [facility] | | [address] [place] [address] | | | - LABORATORY | | | | + + + + + Basic Metabolic Panel (02/03/2012 7:24 AM PDT) + + + + + + | Component | Value | Ref Range | Performed | Pathologist | | | | | At | Signature | + + + + + + | Glucose | 129 (H) | 70 - 109 mg/dL | [facility] | | | | | | [facility] | | | | | | MEDICAL | | | | | | CENTER - | | | | | | LABORATORY | | + + + + + + | Calcium | 8.4 | 8.3 - 10.5 | [facility] | | | | | mg/dL | [facility] | | | | | | MEDICAL | | | | | | CENTER - | | | | | | LABORATORY | | + + + + + + | BUN | 2 (L) | 7 - 18 mg/dL | [facility] | | | | | | [facility] | | | | | | MEDICAL | | | | | | CENTER - | | | | | | LABORATORY | | + + + + + + | Creatinine | 0.48 (L) | 0.60 - 1.30 | [facility] [...] + + + + | BUN/Creatin | 4.2 (L) | 12 - 20 | [facility] [...] + + + + | K | 2.9 (L)Comment: LOW | 3.5 - 5.1 mEq/l | [facility] | | | | POTASSIUM OFTEN | | [facility] | | | | [facility] WITH LOW | | MEDICAL | | | | MAGNESIUM. IF THIS MAY | | CENTER - | | | | BE RELEVANT IN THIS | | LABORATORY | | | | CASE, PLEASE ORDER | | | | | | MAGNESIUM LEVEL. | | | | + + + + + + | Cl | 101 | 98 - 109 mEq/l | [facility] | | | | | | [facility] | | | | | | MEDICAL | | | | | | CENTER - | | | | | | LABORATORY | | + + + + + + | CO2 | 28 | 24 - 31 mEq/L | [facility] | | | | | | [facility] | | | | | | MEDICAL | | | | | | CENTER - | | | | | | LABORATORY | | + + + + + + | Anion Gap | 12.9 | 6.0 - 17.0 | [facility] | [...] + | [facility] | [address] | [place] | [phone] | | [facility] | | [address] | | | - LABORATORY | | | | + + + + + | [facility] | [address] | [place] | | | [facility] | | [address], [facility] | | | - LABORATORY | | | | + + + + + Vancomycin, Trough (02/02/2012 5:32 PM PDT) + + + + + + | Component | Value | Ref Range | Performed | Pathologist | | | | | At | Signature | + + + + + + | Vancomycin | 14.2Comment: | ug/mL | [facility] | | | Trough | OPTIMAL TROUGH VALUE: | | [facility] | | | | 10-20 ug/dL | | MEDICAL | | | | ALERT VALUE: greater | | CENTER - | | | | than 20 ug/dL | | LABORATORY | | + + + + + + + + | Specimen | + + | | + + + + + + + | Performing | Address | City/State/Zipcode | Phone Number | | Organization | | | | + + + + + | [facility] | [address] | [place] | [phone] | | [facility] | | [address] | | | - LABORATORY | | | | + + + + + | [facility] | [address] | [place], [place] | | | [facility] | | [address] | | | - LABORATORY | | | | + + + + + ABO Rh (02/02/2012 9:02 AM PDT) + +-------+ + + + [...] + | [facility] | [address] | [place] | [phone] | | [facility] | | [address] | | | - LABORATORY | | | | + + + + + | [facility] | [address] | [place], [place] | | | [facility] | | [address], [facility] | | | - LABORATORY | | | | + + + + + Antibody Screen (02/02/2012 9:02 AM PDT) + + + + + [...] + | [facility] | [address] | [place] | [phone] | | [facility] | | [address] | | | - LABORATORY | | | | + + + + + | [facility] | [address] | [place] | | | [facility] | | [address], [place] | | | - LABORATORY | | | | + + + + + ABO Rh (02/02/2012 9:02 AM PDT) + + | Specimen | + + | | + + + + + + + | Performing | Address | City/State/Zipcode | Phone Number | | Organization | | | | + + + + + | [facility] | [address] | [place] | [phone] | | [facility] | | [address] | | | - LABORATORY | | | | + + + + + Product: PRBC (02/02/2012 8:36 AM PDT) + + + + [...] + + + | UNIT # | [id number] | | [facility] | | | | [...] [address] | [place] | [phone] | | [facility] | | [address] | | | - LABORATORY | | | | + + + + + | [facility] | | | | | [facility] | | | | | - LABORATORY | | | | + + + + + Product: PRBC (02/02/2012 8:36 AM PDT) + + + + + + | Component | Value | Ref Range | Performed | Pathologist | | | | | At | Signature | + + + + + + | Product | PACKED CELLS,IRRADIATED | | [facility] | | | Code | | | [facility] | | | | | | MEDICAL | | | | | | CENTER - | | | | | | LABORATORY | | + + + + + + | UNIT # | [id number] | | [facility] | | | | [...] [facility] | [address] | [place] | [phone] | | [facility] | | [address] | | | - LABORATORY | | | | + + + + + | [facility] | | | | | [facility] | | | | | - LABORATORY | | | | + + + + + Clostridium difficile Toxin (02/01/2012 5:49 PM PDT) + + + + + + | Component | Value | Ref Range | Performed | Pathologist | | | | | At | Signature | + + + + + + | C difficile | No Clostridium Difficile | | [facility] | | | Toxins | toxin detected.Up to 3 | | [facility] | | | A+B, EIA | stool specimens (notmore | | MEDICAL | | | | than 1 per day) tested | | CENTER - | | | | per | | LABORATORY | | | | patient.NEGATIVEComment: | | | | | | PHONED REPORT TO MALA | | | | | | 02/01/12 @ 4712 by | | | | | | MACELI | | | | + + + + + + + + | Specimen | + + | | + + + + + + + | Performing | Address | City/State/Zipcode | Phone Number | | Organization | | | | + + + + + | [facility] | [address] | [place] | [phone] | | [facility] | | [address] | | | - LABORATORY | | | | + + + + + | [facility] | [address] | [place] | | | [facility] | | [id number] [place] [address] | | | - LABORATORY | | | | + + + + + Vancomycin, Trough (02/01/2012 7:14 AM PDT) + + + + + + | Component | Value | Ref Range | Performed | Pathologist | | | | | At | Signature | + + + + + + | Vancomycin | 10.1Comment: | ug/mL | [facility] | | | Trough | OPTIMAL TROUGH VALUE: | | [facility] | | | | 10-20 ug/dL | | MEDICAL | | | | ALERT VALUE: greater | | CENTER - | | | | than 20 ug/dL | | LABORATORY | | + + + + + + + + | Specimen | + + | | + + + + + + + | Performing | Address | City/State/Zipcode | Phone Number | | Organization | | | | + + + + + | [facility] | [address] | [place] | [phone] | | [facility] | | [address] | | | - LABORATORY | | | | + + + + + | [facility] | [address] | [place], [place] | | | [facility] | | [id number] [place] [address] | | | - LABORATORY | | | | + + + + + Vancomycin, Trough (01/30/2012 1:39 PM PDT) + + + + + + | Component | Value | Ref Range | Performed | Pathologist | | | | | At | Signature | + + + + + + | Vancomycin | 5.8Comment: | ug/mL | [facility] | | | Trough | OPTIMAL TROUGH VALUE: | | [facility] | | | | 10-20 ug/dL | | MEDICAL | | | | ALERT VALUE: greater | | CENTER - | | | | than 20 ug/dL | | LABORATORY | | + + + + + + + + | Specimen | + + | | + + + + + + + | Performing | Address | City/State/Zipcode | Phone Number | | Organization | | | | + + + + + | [facility] | [address] | [place] | [phone] | | [facility] | | [address] | | | - LABORATORY | | | | + + + + + | [facility] | [address] | [place] | | | [facility] | | [address] | | | - LABORATORY | | | | + + + + + Basic Metabolic Panel (01/30/2012 6:19 AM PDT) + + + + + + | Component | Value | Ref Range | Performed | Pathologist | | | | | At | Signature | + + + + + + | Glucose | 106 | 70 - 109 mg/dL | [facility] | | | | | | [facility] | | | | | | MEDICAL | | | | | | CENTER - | | | | | | LABORATORY | | + + + + + + | Calcium | 7.8 (L) | 8.3 - 10.5 | [facility] | | | | | mg/dL | [facility] | | | | | | MEDICAL | | | | | | CENTER - | | | | | | LABORATORY | | + + + + + + | BUN | 8 | 7 - 18 mg/dL | [facility] | | | | | | [facility] | | | | | | MEDICAL | | | | | | CENTER - | | | | | | LABORATORY | | + + + + + + | Creatinine | 0.63 | 0.60 - 1.30 | [facility] | | | | | mg/dL | [...] + + + + | BUN/Creatin | 12.7 | 12 - 20 | [facility] | [...] | 3.2 (L) | 3.5 - 5.1 mEq/l | [...] + + + | Anion Gap | 8.2 | 6.0 - 17.0 | [facility] | [...] + | [facility] | [address] | [place], [place] | [phone] | | [facility] | | [address] | | | - LABORATORY | | | | + + + + + | [facility] | [address] | [place], [place] | | | [facility] | | [address] | | | - LABORATORY | | | | + + + + + CBC with Differential (01/30/2012 6:03 AM PDT) + + + + + + | Component | Value | Ref Range | Performed | Pathologist | | | | | At | Signature | + + + + + + | White Blood | 0.2 (LL)Comment: @VALUE | 4.0 - 11.0 K/uL | [facility] | | | Cells | CONSISTENT WITH PREVIOUS | | [facility] | | | | RESULTS | | MEDICAL | | | | | | CENTER - | | | | | | LABORATORY | | + + + + + + | Red Blood | 2.22 (L) | 3.70 - 5.20 | [facility] | | | Cells | | M/uL | [facility] | | | | | | MEDICAL | | | | | | CENTER - | | | | | | LABORATORY | | + + + + + + | Hemoglobin | 7.0 (LL)Comment: @VALUE | 11.5 - 16.0 | [facility] | | | | CONSISTENT WITH PREVIOUS | gm/dL | [facility] | | | | RESULTS | | MEDICAL | | | | | | CENTER - | | | | | | LABORATORY | | + + + + + + | Hematocrit | 19.8 (LL)Comment: @VALUE | 34.0 - 47.0 % | [facility] | | | | CONSISTENT WITH | | [facility] | | | | PREVIOUS RESULTS | | MEDICAL | | | | | | CENTER - | | | | | | LABORATORY | | + + + + + + | MCV | 89.1 | 83.0 - 101.0 fL | [facility] | | | | | | [facility] | | | | | | MEDICAL | | | | | | CENTER - | | | | | | LABORATORY | | + + + + + + | MCH | 31.6 | 28.0 - 35.0 pg | [facility] | | | | | | [facility] | | | | | | MEDICAL | | | | | | CENTER - | | | | | | LABORATORY | | + + + + + + | MCHC | 35.5 | 32.0 - 36.0 | [facility] | | | | | g/dL | [facility] | | | | | | MEDICAL | | | | | | CENTER - | | | | | | LABORATORY | | + + + + + + | RDW-CV | 16.5 (H) | <15.0 % | [facility] | | | | | | [facility] | | | | | | MEDICAL | | | | | | CENTER - | | | | | | LABORATORY | | + + + + + + | Platelet | 21 (L) | 140 - 440 K/uL | [facility] | | | Count | | | [facility] | | | | | | MEDICAL | | | | | | CENTER - | | | | | | LABORATORY | | + + + + + + | % | 11.6 (L) | 45 - 75 % | [facility] | | | Neutrophils | | | [facility] | | | | | | MEDICAL | | | | | | CENTER - | | | | | | LABORATORY | | + + + + + + | % | 78.7 (H) | 20 - 45 % | [...] + + + + | % | 2.4 | 0 - 5 % | [facility] [...] | | | Comment: | | [facility] | | | | Leukopenia | | MEDICAL | | | | Neutropenia % | | CENTER - | | | | Lymphocytosis % | | LABORATORY | | | | Thrombocytopenia | | | | + + + + + + | SUSPECTED | 1 (H) | | [facility] | | | PROBLEM IS: | Comment: [...] [address] | [place] | [phone] | | [facility] | | [address] | | | - LABORATORY | | | | + + + + + | [facility] | [address] | [place] | | | [facility] | | [address] | | | - LABORATORY | | | | + + + + + Vancomycin, Peak (01/29/2012 12:09 PM PDT) + + + + + + | Component | Value | Ref Range | Performed | Pathologist | | | | | At | Signature | + + + + + + | Vancomycin | 11.6 (L) | 30.0 - 40.0 | [facility] | | | Peak | | ug/mL | [facility] | | | | [...] + | [facility] | [address] | [place] | [phone] | | [facility] | | [address] | | | - LABORATORY | | | | + + + + + | [facility] | [address] | [place], [place] | | | [facility] | | [address], [facility] | | | - LABORATORY | | | | + + + + + ABO Rh (01/29/2012 8:38 AM PDT) + +-------+ + + + [...] [address] | [place] | [phone] | | [facility] | | [address] | | | - LABORATORY | | | | + + + + + | [facility] | [address] | [place], [place] | | | [facility] | | [address], [facility] | | | - LABORATORY | | | | + + + + + Antibody Screen (01/29/2012 8:38 AM PDT) + + + + + [...] + | [facility] | [address] | [place] | [phone] | | [facility] | | [address] | | | - LABORATORY | | | | + + + + + | [facility] | [address] | [place], [place] | | | [facility] | | [address] | | | - LABORATORY | | | | + + + + + ABO Rh (01/29/2012 8:38 AM PDT) + + | Specimen | + + | | + + + + + + + | Performing | Address | City/State/Zipcode | Phone Number | | Organization | | | | + + + + + | [facility] | [address] | [place], [place] | [phone] | | [facility] | | [address] | | | - LABORATORY | | | | + + + + + Vancomycin, Trough (01/29/2012 8:38 AM PDT) + + + + + + | Component | Value | Ref Range | Performed | Pathologist | | | | | At | Signature | + + + + + + | Vancomycin | 4.1Comment: | ug/mL | [facility] | | | Trough | OPTIMAL TROUGH VALUE: | | [facility] | | | | 10-20 ug/dL | | MEDICAL | | | | ALERT VALUE: greater | | CENTER - | | | | than 20 ug/dL | | LABORATORY | | + + + + + + + + | Specimen | + + | | + + + + + + + | Performing | Address | City/State/Zipcode | Phone Number | | Organization | | | | + + + + + | [facility] | [address] | [place] | [phone] | | [facility] | | [address] | | | - LABORATORY | | | | + + + + + | [facility] | [address] | [place] | | | [facility] | | [address], [facility] | | | - LABORATORY | | | | + + + + + Product: PRBC (01/29/2012 8:26 AM PDT) + + + + + [...] + + + | UNIT # | [id number] | | [facility] | | | | [...] [facility]. | [address] | [place] | [phone] | | [facility] | | [address] | | | - LABORATORY | | | | + + + + + | [facility] | | | | [facility] | | | | | - LABORATORY | | | | + + + + + Product: PRBNaresh (01/29/2012 8:26 AM PDT) + + + + + + | Component | Value | Ref Range | Performed | Pathologist | | | | | At | Signature | + + + + + + | Product | PACKED CELLS,IRRADIATED | | [facility] | | | Code | | | [facility] | | | | | | MEDICAL | | | | | | CENTER - | | | | | | LABORATORY | | + + + + + + | UNIT # | [id number] | | [facility] | | | | [...] [address] | [place] | [phone] | | [facility] | | [address] | | | - LABORATORY | | | | + + + + + | [facility] | | | | | [facility] | | | | | - LABORATORY | | | | + + + + + Product: PRB (01/29/2012 8:26 AM PDT) + + + + + [...] + + + | UNIT # | [id number] | | [facility] | | | | [...] + | [facility] | [address] | [place] | [phone] | | [facility] | | [address] | | | - LABORATORY | | | | + + + + + | [facility] | | | | | [facility] | | | | | - LABORATORY | | | | + + + + + Product: PRBC (01/29/2012 8:26 AM PDT) + + + + + [...] + + + | UNIT # | [id number] | | [facility] | | | | [...] + | [facility] | [address] | [place] | [phone] | | [facility] | | [address] | | | - LABORATORY | | | | + + + + + | [facility] | | | | | [facility] | | | | | - LABORATORY | | | | + + + + + Comprehensive Metabolic Panel (01/29/2012 5:25 AM PDT) + + + + + [...] + + + + | Calcium | 8.2 (L) | 8.3 - 10.5 | [facility] | [...] + + + + | AST | 10 | 10 - 42 IU/L | [facility] [...] | 0.64 | 0.60 - 1.30 | [facility] | | | | | mg/dL | [facility] | | | | | | MEDICAL | | | | | | CENTER - | | | | | | LABORATORY | | + + + + + + | Estimated | >60Comment: For | >60 mL/min/A | [facility] | | | GFR | -Americans, | | [facility] | | | | please multiply [...] | | ine Ratio | | | [facility] | | | | | | MEDICAL | | | | | | CENTER - | | | | | | LABORATORY | | + + + + + + | Na | 133 (L) | 136 - 149 mEq/L | [facility] | | | | | | [facility] | | | | | | MEDICAL | | | | | | CENTER - | | | | | | LABORATORY | | + + + + + + | K | 3.4 (L) | 3.5 - 5.1 mEq/l | [facility] | | | | | [facility] | | | | | | MEDICAL | | | | | | CENTER - | | | | | | LABORATORY | | + + + + + + | Cl | 100 | 98 - 109 mEq/l | [facility] [...] + | [facility] | [address] | [place], [place] | [phone] | | [facility] | | [address] | | | - LABORATORY | | | | + + + + + | [facility] | [address] | [place], [place] | | | [facility] | | [address], [facility] | | | - LABORATORY | | | | + + + + + CBC with Differential (01/29/2012 5:25 AM PDT) + + + + + [...] + + + | Red Blood | 2.23 (L) | 3.70 - 5.20 | [facility] | | | Cells | | M/uL | . [facility] | | | | | | MEDICAL | | | | | | CENTER - | | | | | | LABORATORY | | + + + + + + | Hemoglobin | 7.0 (LL) | 11.5 - 16.0 | [facility] | | | | | gm/dL | [facility] | | | | | | MEDICAL | | | | | | CENTER - | | | | | | LABORATORY | | + + + + + + | Hematocrit | 19.7 (LL)Comment: | 34.0 - 47.0 % | [...] | | | | RESULT CALLED TO GILBERTO | | | | | | LINDSE[place] 01/29/12 @0550 by | | | | | | DEVON @ * READ BACK | | | [...] + + + + | MCV | 88.6 | 83.0 - 101.0 fL | [facility] | [facility] | | | | | | [facility] - | | | | | | LABORATORY | | + + + + + + | MCH | 31.6 | 28.0 - 35.0 pg | [facility] [...] + + + + | RDW-CV | 17.7 (H) | <15.0 % | [facility] | [facility] | [facility] | | | | | | C[facility] - | | | | | | LABORATORY | | + + + + + + | Platelet | 34 (L) | 140 - 440 K/uL | [facility] | | | Count | | | [facility] | | [facility] | [facility] | [facility] | | | | | | CENTER - | | | | | | LABORATORY | | + + + + + + | % | 5.5 (L) | 45 - 75 % | [facility] | | | Neutrophils | | | [facility] | | | | | | [facility] | | | | | | CENTER - | | | | | | LABORATORY | | + + + + + + | % | 85.7 (H) | 20 - 45 % | [facility] | | | Lymphocytes | | | [facility] | | | | | | MEDICAL | | | | | | CENTER - | | | | | | LABORATORY | | + + + + + + | % Monocytes | 5.0 | 4 - 12 % | [facility] | | | | | | [facility] | | | | [facility] | [facility] | | | | | | CENTER - | | | | | | LABORATORY | | + + + + + + | % | 3.8 | 0 - 5 % | [facility] [...] | | | Comment: | | [facility] | | | | Leukopenia | | [...] + | [facility] | [address] | [place] | [phone] | | [facility] | | [id number] | | | - LABORATORY | | | | + + + + + | [facility] | [address] | [place], [place] | | | [facility] | | [phone], [facility] | | | - LABORATORY | | | | + + + + + XR Chest PA and Lateral (01/28/2012 2:34 PM PDT) + + | Specimen | + + | | + + + + + | Narrative | Performed At | + + + | [facility]. [facility] Diagnostic Imaging Department | [facility] | | [address], [place] | [facility] | | CHEST, PA AND LATERAL, 02/09/2012 | DIAG IMG | | CLINICAL HISTORY: EVALUATE DIFFUSE ALVEOLAR INFILTRATES. | | | COMPARISON: 02/05/2012 FINDINGS: Frontal and lateral views of | | | the chest. Progressive mild increase in bilateral interstiti al and | | | air space opacities. There is some confluence in the perihilar | | | regions. There has been progr essive fluid accumulation in the | | | right and left lungs seen as small bilateral effusions, right greate | | | r than left. There is no pneumothorax. Cardiac and mediastinal | | | contours are stable. This includes a prominent appearance of the | | | right hilum and ill-definition of the left hilum. There is a | | | vascular access catheter on the left chest which is currently | | | accessed. Osseous structures are stable. IMPRESSION: 1. SLIGHT | | | PROGRESSION OF INTERSTITIAL AND AIR SPACE OPACITIES. 2. | | | PROGRESSION OF PLEURAL EFFUSIONS BILATERALLY, RIGHT GREATER THAN LEFT. | | | Dictated Date/Time: 02/09/2012 08:06 Transcribed Date/Time: | | | 02/09/2012 08:20 Farm Technician: <Electronically Signed | | | by Vance Holland MD> 02/09/12 1121 | | + + + + + | Procedure Note | + + | Germain, Rad Conversion - 12/08/2013 5:01 PM [facility] | | Diagnostic Imaging Department [address] [facility] | | CHEST, PA AND LATERAL, 02/09/2012 CLINICAL HISTORY: | | EVALUATE DIFFUSE ALVEOLAR INFILTRATES. COMPARISON: 02/05/2012 FINDINGS: Frontal and | | lateral views of the chest. Progressive mild increase in bilateral interstitial and air | | space opacities. There is some confluence in the perihilar regions. There has been | | progressive fluid accumulation in the right and left lungs seen as small bilateral | | effusions, right greater than left. There is no pneumothorax. Cardiac and mediastinal | | contours are stable. This includes a prominent appearance of the right hilum and | | ill-definition of the left hilum. There is a vascular access catheter on the left chest | | which is currently accessed. Osseous structures are stable. IMPRESSION: 1. SLIGHT | | PROGRESSION OF INTERSTITIAL AND AIR SPACE OPACITIES. 2. PROGRESSION OF PLEURAL | | EFFUSIONS BILATERALLY, RIGHT GREATER THAN LEFT. Dictated Date/Time: 02/09/2012 | | 08:06Transcribed Date/Time: 02/09/2012 08:20Transcriptionist: <Electronically | | Signed by Vance Holland MD> 02/09/12 1121 | |r than left. There is no pneumothorax. Cardiac and mediastinal contours are stable. This includes | |a prominent appearance of the right hilum and ill-definition of the left hilum. There is a vascular | |access catheter on the left chest which is currently accessed. Osseous structures are stab le. | | | |IMPRESSION: | |1. SLIGHT PROGRESSION OF INTERSTITIAL AND AIR SPACE OPACITIES. | | | |2. PROGRESSION OF PLEURAL EFFUSIONS BILATERALLY, RIGHT GREATER THAN LEFT. | | | |Dictated Date/Time: 02/09/2012 08:06 | |Transcribed Date/Time: 02/09/2012 08:20 | |Farm Technician: | |<Electronically Signed by Vance Holland MD> 02/09/12 1121 | + + + +---------+ + + | Performing | Address | City/State/Zipcode | Phone Number | | Organization | | | | + +---------+ + + | [place] | | | | | [place] | | | | + +---------+ + + US Renal Limited (01/28/2012 2:34 PM PDT) + + | Specimen | + + | | + + + + + | Narrative | Performed At | + + + | [facility] Diagnostic Imaging Department | [facility] | | [address] [facility] [address] | [facility] | | RENAL ULTRASOUND CLINICAL | DIAG IMG | | HISTORY: RULE OUT OBSTRUCTION. ELEVATED CREATININE. FINDINGS: | | | Both kidneys are in normal location and they are of normal size, | | | right measuring 13.9 cm in greatest dimension and left measuring 13.1 | | | cm. Kidneys show normal echogenicity and echo architecture. No | | | hydronephrosis or perinephric fluid collections are seen. Renal | | | blood flow shows a normal low- resistence waveform. Urinary bladder | | | appears normal with bilateral ureteral jets identified and no | | | postvoid residual. IMPRESSION: 1. NORMAL RENAL ULTRASOUND. | | | Dictated Date/Time: 02/08/2012 14:10 Transcribed Date/Time: | | | 02/08/2012 14:21 Farm Technician: <Electronically Signed | | | by Jorge Luis Farias MD> 02/08/12 1458 | | + + + + + | Procedure Note | + + | Germain, Rad Conversion - 12/08/2013 5:01 PM [facility] | | Diagnostic Imaging Department | | [address] | | | | | | | | RENAL ULTRASOUND | | | | CLINICAL HISTORY: RULE OUT OBSTRUCTION. ELEVATED CREATININE. | | | | FINDINGS: Both kidneys are in normal location and they are of normal size, | | right measuring 13.9 cm in greatest dimension and left measuring 13.1 cm. | | Kidneys show normal echogenicity and echo architecture. No hydronephrosis or | | perinephric fluid collections are seen. Renal blood flow shows a normal low- | | resistence waveform. Urinary bladder appears normal with bilateral ureteral | | jets identified and no postvoid residual. | | | | IMPRESSION: | | 1. NORMAL RENAL ULTRASOUND. | | | | Dictated Date/Time: 02/08/2012 14:10 | | Transcribed Date/Time: 02/08/2012 14:21 | | Farm Technician: | | <Electronically Signed by Jorge Luis Farias MD> 02/08/12 1458 | + + + +---------+ + + | Performing | Address | City/State/Zipcode | Phone Number | | Organization | | | | + +---------+ + + | [place] | | | | | [facility] | | | | + +---------+ + + XR Chest AP Portable (01/28/2012 2:34 PM PDT) + + | Specimen | + + | | + + + + + | Narrative | Performed At | + + + | [facility] Diagnostic Imaging Department | [facility] | | [address] | [facility] | | SINGLE AP CHEST, 02/05/2012 AT | DIAG IMG | | 0552 HOURS CLINICAL HISTORY: DECREASED OXYGEN SATURATION. | | | COMPARISON: Chest radiographs 02/03/2012 and 01/28/2012. Chest CT | | | 11/14/2011. FINDINGS: The implantable left subclavian port | | | catheter remains in position, ending in the region of the confluence | | | of the brachiocephalic veins. Atherosclerotic calcification of | | | the thoracic aorta persists. The cardiac silhouette appears | | | borderline to mildly enlarged. Previously described patchy opacity | | | in the mid lungs and right base appears more confluent compared with | | | the study of 02/03/2012. Trace pleural effusions are again | | | suggested. No pneumothorax is visible. Rightward thoracic | | | curvature and multilevel spondylosis persist. IMPRESSION: 1. | | | INCREASED CONFLUENCE OF PATCHY BILATERAL OPACITY, CONSISTENT WITH | | | MULTIFOCAL INFILTRATE. TRACE PLEURAL EFFUSIONS PERSIST. 2. | | | SCOLIOSIS AND SPONDYLOSIS. Dictated Date/Time: 02/05/2012 | | | 08:15 Transcribed Date/Time: 02/05/2012 08:22 Farm Technician: | | | <Electronically Signed by Moises Rodas MD> 02/05/12 1044 | | + + + + + | Procedure Note | + + | Germain, Rad Conversion - 12/08/2013 5:01 PM [facility] | | Diagnostic Imaging Department | | [address] | | | | | | | | SINGLE AP CHEST, 02/05/2012 AT 0552 HOURS | | | | CLINICAL HISTORY: DECREASED OXYGEN SATURATION. | | | | COMPARISON: Chest radiographs 02/03/2012 and 01/28/2012. Chest CT 11/14/2011. | | | | FINDINGS: The implantable left subclavian port catheter remains in position, | | ending in the region of the confluence of the brachiocephalic veins. | | Atherosclerotic calcification of the thoracic aorta persists. The cardiac | | silhouette appears borderline to mildly enlarged. Previously described patchy | | opacity in the mid lungs and right base appears more confluent compared with | | the study of 02/03/2012. Trace pleural effusions are again suggested. No | | pneumothorax is visible. Rightward thoracic curvature and multilevel | | spondylosis persist. | | | | IMPRESSION: | | 1. INCREASED CONFLUENCE OF PATCHY BILATERAL OPACITY, CONSISTENT WITH | | MULTIFOCAL INFILTRATE. TRACE PLEURAL EFFUSIONS PERSIST. | | | | 2. SCOLIOSIS AND SPONDYLOSIS. | | | | Dictated Date/Time: 02/05/2012 08:15 | | Transcribed Date/Time: 02/05/2012 08:22 | | Farm Technician: | | <Electronically Signed by Moises Rodas MD> 02/05/12 1044 | + + + +---------+ + + | Performing | Address | City/State/Zipcode | Phone Number | | Organization | | | | + +---------+ + + | [place] | | | | | [facility] | | | | + +---------+ + + XR Chest PA and Lateral (01/28/2012 2:34 PM PDT) + + | Specimen | + + | | + + + + + | Narrative | Performed At | + + + | [facility] Diagnostic Imaging Department | [facility] | | [address] | [facility] | | PA AND LATERAL CHEST: 02/03/2012 | DIAG IMG | | CLINICAL HISTORY: FEVER. PREVIOUSLY REPORTED HISTORY OF | | | LYMPHOMA. COMPARISON: Chest radiograph 01/28/2012, CT chest | | | 11/14/2011. FINDINGS: The implantable left subclavian port | | | catheter persists and again ends in the region of the confluence of | | | the brachiocephalic veins. There is atherosclerotic calcification | | | and tortuosity of the thoracic aorta. Prominence of the pulmonary | | | caitlyn may reflect previously reported adenopathy. Patchy opacity is | | | now present throughout the mid to lower lung lara, most | | | confluently involving the lateral right base. Trace pleural effusions | | | are suggested. There is no visible pneumothorax. Rightward thoracic | | | curvature and multilevel spondylosis persist. IMPRESSION: 1. | | | NEW PATCHY OPACITY THROUGHOUT THE MID TO LOWER LUNG LARA, MOST | | | CONFLUENT AT THE LATERAL RIGHT BASE, POTENTIALLY REFLECTING | | | MULTIFOCAL INFECTIOUS/ INFLAMMATORY PNEUMONITIS. TRACE PLEURAL | | | EFFUSIONS ARE NOW SUGGESTED WELL. 2. PROMINENCE OF THE | | | PULMONARY CAITLYN, POTENTIALLY REFLECTING THE PRESENCE OF ADENOPATHY. | | | 3. SCOLIOSIS AND SPONDYLOSIS. Dictated Date/Time: | | | 02/03/2012 10:54 Transcribed Date/Time: 02/03/2012 11:05 | | | Farm Technician: <Electronically Signed by Moises Rodas MD> | | | 02/03/12 1543 | | + + + + + | Procedure Note | + + | Germain, Rad Conversion - 12/08/2013 5:01 PM [facility] | | Diagnostic Imaging Department | | [address] | | | | | | | | PA AND LATERAL CHEST: 02/03/2012 | | | | CLINICAL HISTORY: FEVER. PREVIOUSLY REPORTED HISTORY OF LYMPHOMA. | | | | COMPARISON: Chest radiograph 01/28/2012, CT chest 11/14/2011. | | | | FINDINGS: The implantable left subclavian port catheter persists and again | | ends in the region of the confluence of the brachiocephalic veins. There is | | atherosclerotic calcification and tortuosity of the thoracic aorta. Prominence | | of the pulmonary caitlyn may reflect previously reported adenopathy. Patchy | | opacity is now present throughout the mid to lower lung lara, most | | confluently involving the lateral right base. Trace pleural effusions are | | suggested. There is no visible pneumothorax. Rightward thoracic curvature and | | multilevel spondylosis persist. | | | | IMPRESSION: | | 1. NEW PATCHY OPACITY THROUGHOUT THE MID TO LOWER LUNG LARA, MOST CONFLUENT | | AT THE LATERAL RIGHT BASE, POTENTIALLY REFLECTING MULTIFOCAL INFECTIOUS/ | | INFLAMMATORY PNEUMONITIS. TRACE PLEURAL EFFUSIONS ARE NOW SUGGESTED WELL. | | | | 2. PROMINENCE OF THE PULMONARY CAITLYN, POTENTIALLY REFLECTING THE PRESENCE OF | | ADENOPATHY. | | | | 3. SCOLIOSIS AND SPONDYLOSIS. | | | | Dictated Date/Time: 02/03/2012 10:54 | | Transcribed Date/Time: 02/03/2012 11:05 | | Farm Technician: LIZZ | | <Electronically Signed by Moises Rodas MD> 02/03/12 1543 | + + + +---------+ + + | Performing | Address | City/State/Zipcode | Phone Number | | Organization | | | | + +---------+ + + | [place] | | | | | [facility] | | | | + +---------+ + + XR Chest PA and Lateral (01/28/2012 2:34 PM PDT) + + | Specimen | + + | | + + + + + | Narrative | Performed At | + + + | [facility] Diagnostic Imaging Department | [facility] | | [address] | [facility] | | TWO VIEW CHEST CLINICAL | DIAG IMG | | HISTORY: NEUTROPENIC AND FEVER. COMPARISON: None. | | | FINDINGS: Heart size is normal. Hilar regions and pulmonary | | | vasculature are normal. Central cathet er is present with its tip | | | in the superior vena cava and reservoir over the left chest. No | | | focal are as of abnormal lung density are seen. No bony or upper | | | abdominal abnormalities are noted. IMPRESSION: 1. NEGATIVE | | | STUDY OF THE CHEST. Dictated Date/Time: 01/28/2012 16:56 | | | Transcribed Date/Time: 01/28/2012 17:03 Farm Technician: | | | <Electronically Signed by Jorge Luis Farias MD> 01/29/12 0816 | | + + + + + | Procedure Note | + + | Germain, Rad Conversion - 12/08/2013 5:01 PM [facility] | | Diagnostic Imaging Department [address] [place] [address] | | TWO VIEW CHEST CLINICAL HISTORY: NEUTROPENIC AND FEVER. | | COMPARISON: None. FINDINGS: Heart size is normal. Hilar regions and pulmonary | | vasculature are normal. Central catheter is present with its tip in the superior vena | | cava and reservoir over the left chest. No focal areas of abnormal lung density are | | seen. No bony or upper abdominal abnormalities are noted. IMPRESSION: 1. NEGATIVE | | STUDY OF THE CHEST. Dictated Date/Time: 01/28/2012 16:56Transcribed Date/Time: | | 01/28/2012 17:03Transcriptionist: <Electronically Signed by Jorge Luis Farias | | > 01/29/12815 | |COMPARISON: None. | | | |FINDINGS: Heart size is normal. Hilar regions and pulmonary vasculature are normal. Cent ral cathet | |er is present with its tip in the superior vena cava and reservoir over the left chest. No focal are | |as of abnormal lung density are seen. No bony or upper abdominal abnormalities are noted. | | | |IMPRESSION: | |1. NEGATIVE STUDY OF THE CHEST. | | | |Dictated Date/Time: 01/28/2012 16:56 | |Transcribed Date/Time: 01/28/2012 17:03 | |Farm Technician: | |<Electronically Signed by Jorge Luis Farias MD> 01/29/12 0816 | + + + +---------+ + + | Performing | Address | City/State/Zipcode | Phone Number | | Organization | | | | + +---------+ + + | [place] | | | | | [facility] | | | | + +---------+ + + documented in this encounter Visit Diagnoses Not on filedocumented in this encounter"
--- OUTSIDE RECORDS SUMMARY | ~2020-06-17 | XMS | Encounter Summary ---
Demographics + + + | Address | [address] | | | [place] [address] | + + + | Home Phone | | + + + | Preferred Language | Unknown | + + + | Marital Status | | + + + | Yazidi Affiliation | Unknown | + + + | Race | or | + + + | Ethnic Group | Not or | + + + Author + + + | Author | [facility] | | | and [place] | + + + | Organization | [facility] | | | and [place] [...] [place] | | | | | [address] | | + + + + + | Greta [place] | ECON | [place] | | | | | [address] | | + + + + + Care Team Providers + +------+ + | Care Emblem Maker Name | Role | Phone | + +------+ + PCP | Unavailable | + +------+ + Encounter Details +--------+ + + + + | Date | Type | Department | Care Team | Description | +--------+ + + + + | 06/06/ | Hospital | [facility] | [place], | | | 2012 - | Encounter | [facility] | Antonio Infante MD [address] | | | | | [address] | [facility] | | | 06/11/ | | [place] [address] | [address] [place] | | | 2011 | | [phone] | [address] | | | | | | | [...] encounter Discharge Summaries Antonio Renee MD - 09/29/2012 3:55 PM [place], [place] [address] Patient Name: ZOFIA YOUNG Provider: Antonio Renee MD Unit #: [id number] Location : [address] [place], [place] [address]t #: [id number] : [id number] ADMISSION DATE: 06/06/2012 DISCHARGE DATE: 06/11/2012 ADMITTING DIAGNOSES 1. Burkitt's lymphoma. 2. Cardiomyopathy. DISCHARGE DIAGNOSES 1. BURKITT'S LYMPHOMA, STABLE. 2. CARDIOMYOPATHY, STABLE. PROCEDURES: Cycle #4B of Rituxan/hyper-CVAD chemotherapy. COMPLICATIONS: None. CONSULTATIONS: None. HOSPITAL COURSE: Zofia Young is a 51-year-old woman from [facility] on, who has Burkitt's lymphoma. Zofia was admitted to [facility] on 06/06/2012 for cycle #4B of Rituxan/ hyper-CVAD chemotherapy. Just prior to her admission she received a 100 mg injection of preservative-free cytarabin e intrathecally. She then was admitted to [facility] where her Port-A-Cath was accessed and a A1 blood return w as noted. She then received 650 mg of oral Tylenol, 25 mg of intravenous Benadryl, and 710 mg of intravenous Rituxan without adverse effects. On 06/07/2012, #2, she received 16 mg of oral Zofran, 20 mg of oral Decadron, 380 mg of in travenous methotrexate over 2 hours, followed immediately by the initiation of 760 mg infus ion of methotrexate programmed to run over 22 hours in 1000 mL of normal saline. On 06/08/2012, day #3, she received 24 mg of oral Zofran, 20 mg of oral Decadro n, and 50 mg of intravenous leucovorin that was administered at the 12-hour period after th e completion of her methotrexate infusion. On , 06/09/2012, day #4, she received 24 mg of oral Zofran, 20 mg of oral Decadron , and 950 mg of intravenous cytarabine over 2 hours in 250 mL of normal saline, which was r epeated 12 hours later with a second infusion of 950 mg of cytarabine over 2 hours. She als o received 15 mg of intravenous leucovorin every 4 hours, beginning 6 hours after the 50 mg dose. On 06/10/2012, day #5, she received 24 mg of oral Zofran, 20 mg of oral Decadron, and continued to receive 15 mg of intravenous leucovorin every 6 hours. Because of excessiv e myelosuppression with cycle #3B, she did not receive doses 3 or 4 of cytarabine with this cycle. On 06/11/2012, day #6, she continued with leucovorin at 15 mg intravenously ever y 6 hours and also received an injection of 6 mg of Neulasta just prior to her discharge. Chemotherapy was tolerated without any adverse effects. Laboratory evaluation was notable for a methotrexate level of 4.96 mmol/L at time equals 0 after the completion of the infusi on, methotrexate level of 0.08 mmol/L at time equals 24 hours after the completion of the m ethotrexate infusion, and a methotrexate level of less than 0.05 mmol/L at time #48 after t he completion of her methotrexate infusion, consistent with physiological excretion of meth otrexate. The patient was scheduled to see Dr. Renee in the Cancer Center on 06/13/2012 for on going followup and supportive care after her chemotherapy including the transfusion of bloo d products. DISCHARGE MEDICATIONS 1. Ativan 1 mg orally every 4 hours as needed for nausea, anxiety, or restlessness. 2. Compazine 5-10 mg every 6 hours as needed for nausea. 3. Coreg 3.125 mg orally twice nikhil y. 4. Dilaudid 2 mg orally every 4 hours as needed for pain. 5. Fish oil 1 gram orally dale ly. 6. Lisinopril 10 mg orally daily. 7. Lomotil 1 tablet after each loose stool as needed for diarrhea. 8. Metamucil 1 unit dose orally twice daily. 9. MiraLax 17 g orally daily as needed for constipation. 10. Erie 5/325 one or two tab lets every 4 hours as needed for pain. 11. Prilosec 20 mg orally daily. 12. Senna 1-2 tablets orally twice daily as needed for constipation. 13. Multivitamin o nce a day. 14. Vitamin D 50,000 units orally once a week. 15. Acyclovir 400 mg orally twice daily. 16. OxyContin 20 mg orally twice daily. DICTATED BY: Antonio Renee MD Oncology JOB #: [id number] EXT JOB #:[id number] <<Signature on File>> Antonio swan MD10/03/12 0957 < Antonio Jeffries MD - 06/06/2012 10:48 AM PDTADMISSION DATE: 06/06/2012 DISCHARGE DATE: 06/11/2012 ADMITTING DIAGNOSES 1. Burkitt's lymphoma. 2. Cardiomyopathy. DISCHARGE DIAGNOSES 1. BURKITT'S LYMPHOMA, STABLE. 2. CARDIOMYOPATHY, STABLE. PROCEDURES: Cycle #4B of Rituxan/hyper-CVAD chemotherapy. COMPLICATIONS: None. CONSULTATIONS: None. HOSPITAL COURSE: Zofia Young is a 51-year-old woman from [place], who has Burkitt's lymphoma. Zofia was admitted to [facility] on 06/06/2012 for cycle #4B of R ituxan/hyp er-CVAD chemotherapy. Just prior to her admission she received a 100 mg injection of preservative-free cytarabine intrathec ally. She then was admitted to [facility] where her Port-A-Cath was accessed and a A1 blood return wa s noted. S he then received 650 mg of oral Tylenol, 25 mg of intravenous Benadryl, and 710 mg of intravenous Rit uxan without adverse effects. On 06/07/2012, #2, she received 16 mg of oral Zofran, 20 mg of oral Decadron, 380 mg of int ravenous m ethotrexate over 2 hours, followed immediately by the initiation of 760 mg infus ion of methotrexate p rogrammed to run over 22 hours in 1000 mL of normal saline. On 06/08/2012, day #3, she received 24 mg of oral Zofran, 20 mg of oral Decadron , and 50 m g of intravenous leucovorin that was administered at the 12-hour period after th e completion of her m ethotrexate infusion. On , 06/09/2012, day #4, she received 24 mg of oral Zofran, 20 mg of oral Decadron, and 950 m g of intravenous cytarabine over 2 hours in 250 mL of normal saline, which was r epeated 12 hours late r with a second infusion of 950 mg of cytarabine over 2 hours. She al so received 15 mg of intravenous leucovorin every 4 hours, beginning 6 hours after the 50 m g dose. On 06/10/2012, day #5, she received 24 mg of oral Zofran, 20 mg of oral Decadron, a nd continu ed to receive 15 mg of intravenous leucovorin every 6 hours. Because of excessiv e myelosuppression wi cycle #3B, she did not receive doses 3 or 4 of cytarabine with thi s cycle. On 06/11/2012, day #6, she continued with leucovorin at 15 mg intravenously every 6 hours a nd also received an injection of 6 mg of Neulasta just prior to her discharge. Chemotherapy was tolerated without any adverse effects. Laboratory evaluation was notable f or a metho trexate level of 4.96 mmol/L at time equals 0 after the completion of the infusi on, methotrexate leve l of 0.08 mmol/L at time equals 24 hours after the completion of the methotrexate infusion, and a met hotrexate level of less than 0.05 mmol/L at time #48 after the completion of her methotrexate infusio n, consistent with physiological excretion of m ethotrexate. The patient was scheduled to see Dr. Renee in the Cancer Center on 06/13/2012 for evelinetrino marshall and supportive care after her chemotherapy including the transfusion of bloo d products. DISCHARGE MEDICATIONS 1. Ativan 1 mg orally every 4 hours as needed for nausea, anxiety, or restlessness. 2. Com pazine 5-10 mg every 6 hours as needed for nausea. 3. Coreg 3.125 mg orally twice daily. 4. Dilaudid 2 mg orally every 4 hours as needed for pain. 5. Fish oil 1 gram orally daily. 6. Lisinopril 10 mg orally daily. 7. Lomotil 1 tablet after each loose stool as needed for diarrhea. 8. Metamucil 1 unit dos e orally twice daily. 9. MiraLax 17 g orally daily as needed for constipation. 10. Erie 5/325 one or two tablet s every 4 hours as needed for pain. 11. Prilosec 20 mg orally daily. 12. Senna 1-2 tablets orally twice daily as needed for constipation. 13. Multivitamin once a day. 14. Vitamin D 50,000 units orally once a week. 15. Acyclovir 400 mg orally twice daily. 16. OxyContin 20 mg orally twice daily. DICTATED BY: Antonio Renee MD Oncology JOB #: [id number] EXT JOB #:[id number] <Electronicall y Signed by Antonio Renee MD> 10/03/12 0957 documented in this encounter Medications at Time [...] | 03/25/20 | | | (VITAMIN D3) 05945 | mouth Once a week. | | [...] + + documented as of this encounter H&P Notes Antonio Renee MD - 06/06/2012 10:48 AM PDTDATE: 06/06/2012 IDENTIFYING STATEMENT: Zofia Young is a 51-year-old woman from [place], [place], with Bu rkitt lymp etienne who was admitted to [facility] in [place], [place], on 0 06/06/2012 for cycle #4B hyper-CVAD chemotherapy and her 8th intrathec al injection of chemotherapy. HISTORY OF PRESENT ILLNESS 1. Presentation in 08/2001 with intractable abdominal pain that was described as "searing." Symptoms progressed and on 10/15/2011, she underwent advanced imaging that demonstrated di ffuse malignant lymp hadenopathy throughout the retroperitoneum. 2. Laparoscopic lymph node biopsy on 11/10/2011 at the [facility] [place] [facility] a high-grade B-cell lymphoma consistent with Burkitt lymphoma, positive for BCL6, positive CD10, positive for CD19, positive for CD20, positive for CD22, and positive for kappa light chains. Ignacio -Palmer virus was positive by in situ hybridization. The prol iferation indicator Ki-67 fraction was gre ater than 90%. 3. She initiated systemic chemotherapy with curative intent with Rituxan/hyper-CVAD at [facility] on 2011. CHIEF COMPLAINT: Zofia Young is admitted to [facility] in [facility] on 06/06/2012 for cycle #4B of her Rituxan/hyper-CVAD and her 8th injec tion of intrathecal c hemotherapy. REVIEW OF SYSTEMS CONSTITUTIONAL: Denies high fevers, shaking chills, anorexia, nausea, vomiting, weight loss , night sw eats or fatigue. ENMT: Denies odynophagia, dysphagia, tinnitus. CARDIOVASCULAR: Denies chest pain, palpitations, orthopnea or dyspnea on exertion. RESPIRATORY: Denies cough, hemoptysis or sputum production. GASTROINTESTINAL: Denies abdominal pain, constipation, diarrhea, melena or bright blood per rectum. GENITOURINARY: Denies hematuria or dysuria. MUSCULOSKELETAL: Denies any abdominal pain, denies any bone or joint pain. Denies any muscl e pain. NEUROLOGIC: She continues to have some tingling in the toes bilaterally, which is likely re lated to n europathy from her chemotherapy. ENDOCRINE: Denies peripheral edema, heat or cold intolerance, polyuria or polydipsia. HEMATOLOGIC: Denies spontaneous bruising or bleeding. PAST MEDICAL HISTORY: Treatment induced congestive heart failure. A cardiac echocardiogram was perfor med in the asymptomatic state on 03/18/2012 for monitoring her for any signs or symptoms of cardiac t oxicity related to her anthracycline exposure and disclosed a segment al wall motion abnormality in th e anteroseptal and distal anteroseptal left ventricle with ejection fraction of 50%. This led to a mo re comprehensive imaging study with a myocardia l perfusion scan 03/16/2012 that was unable to redemon strated any segmental wall motion ab normalities or perfusion defects but did confirm a low ejection f raction of 50%. She is cu rrently being managed medically with Coreg and lisinopril. PAST SURGICAL HISTORY 1. Status post left anterior chest Port-A-Cath. 2. section, 1981. PSYCHOSOCIAL HISTORY: She lives independently in [place], [place]. She always comes to e clinic w ith her sister who is a retired registered nurse and takes very good care of her . HABITS: Tobacco: Positive for tobacco use. Alcohol: Positive for remote alcohol use, none c urrently. Other: Positive for ongoing marijuana use. FAMILY HISTORY: There is no history of cancer in first-degree relatives. ROUTINE MEDICATIONS 1. Acyclovir 400 mg orally twice daily. 2. Coreg 3.125 mg orally twice daily. 3. Lomotil 1 tablet after each loose stool as needed for diarrhea. 4. Vitamin D 50,000 uni ts orally once a week. 5. Vicodin 5/325, 1 or 2 tablets every 4-6 hours as needed for pain. 6. Lisinopril 10 mg o rally daily. 7. Ativan 1 mg every 4 hours as needed for nausea, anxiety or restlessness. 8. Multivitami n 1 tablet orally daily. 9. [place]-3 fish oil 1 gram orally daily. 10. Omeprazole 20 mg orally daily. 11. OxyContin 20 mg orally twice daily. 12. MiraLax 17 g orally daily. 13. Compazine 5 to 10 mg every 6 hours as needed for nausea. 14. Metamucil. She is now harsha ing 1 teaspoon orally once daily 15. Senna 1 to 2 doses as needed. 16. Dilaudid 2 mg tablet is available but is only being used sparingly, 1 to 2 tablets ever y 4 hours as needed for pain. ALLERGIES: NO KNOWN DRUG ALLERGIES. SHE HAS CUTANEOUS ALLERGY TO METAL. PHYSICAL EXAMINATION VITAL SIGNS: Blood pressure is 113/72, pulse 84, temperature is 36.1 degrees Celsius. Satur ation of o xygen is 95% on room air. Her weight is 84.6 kg. HEENT: Sclerae anicteric. The oropharynx is free of lesions. NECK: Supple without thyromegaly. LUNGS: Clear to auscultation. CARDIOVASCULAR: Regular rate and rhythm with a normal S1, normal S2, without rubs, gallops or murmurs . CHEST: Left anterior chest Port-A-Cath is without surrounding tenderness or erythema. ABDOMEN: Soft, nontender, nondistended, no hepatomegaly, no splenomegaly, no ascites. Bowel sounds pr esent in all 4 quadrants. LYMPH NODE SURVEY: There is no cervical, supraclavicular, axillary, or inguinal lymphadenop athy. MUSCULOSKELETAL No joint tenderness or swelling. SKIN: Without petechiae or ecchymoses. EXTREMITIES: Without cyanosis, clubbing, or edema. NEUROLOGIC: Awake and alert, face symmetric, voice articulate. Station, gait is within norm al limits. LABORATORY DATA: Glucose is 117 mg/dL (upper limits of normal is 110), alkaline phosphatase 122 inter national units per liter (upper limits of normal is 110). The rest of her comple te metabolic panel is within normal limits. Hemoglobin is 10.4, hematocrit is 29.7%, platel et count 217,000, white count i s 8100. ASSESSMENT: Burkitt's lymphoma. PLAN: Zofia will be admitted for cycle #4B of her Rituxan/hyper-CVAD plan along with her eighth dos e of intrathecal chemotherapy with cytarabine. Anticipating discharge on y following a 6 mg in jection of subcutaneous Neulasta. She will then have weekly followup in the Cancer Center until her c ounts recover. She will then have a comprehensive repeat s taging with a CT scan of the chest, abdomen , and pelvis and a bone marrow biopsy and aspir ate and if this reconfirms that she is in remission th en we will proceed to have her Port- A-Cath extracted and cross over to observation. DICTATED BY: Antonio Renee MD Oncology JOB #: [id number] EXT JOB #:[id number] cc: [facility] <Electronically Signed by Antonio Renee MD> 06/06/12 1206 documented in this encounter Plan of Treatment Not on filedocumented as of this encounter Procedures + +--------+ + + + | Procedure Name | Priori | Date/Time | Associated Diagnosis | Comments | | | ty | | | | + +--------+ + + + | METHOTREXATE LEVEL | Routin | 06/10/2012 | | Results for this | | | e | 8:23 AM | | procedure are in the | | | | PDT | | results section. | + +--------+ + + + | CBC WITH | Routin | 06/10/2012 | | Results for this | | DIFFERENTIAL | e | 8:23 AM | | procedure are in the | | | | PDT | | results section. | + +--------+ + + + | COMPREHENSIVE | Routin | 06/10/2012 | | Results for this | | METABOLIC PANEL | e | 8:23 AM | | procedure are in the | | | | PDT | | results section. | + +--------+ + + + | METHOTREXATE LEVEL | Routin | 06/09/2012 | | Results for this | | | e | 7:01 AM | | procedure are in the | | | | PDT | | results section. | + +--------+ + + + | CBC WITH | Routin | 06/09/2012 | | Results for this | | DIFFERENTIAL | e | 7:01 AM | | procedure are in the | | | | PDT | | results section. | + +--------+ + + + | BASIC METABOLIC | Routin | 06/09/2012 | | Results for this | | PANEL | e | 7:01 AM | | procedure are in the | | | | PDT | | results section. | + +--------+ + + + | METHOTREXATE LEVEL | Routin | 06/08/2012 | | Results for this | | | e | 7:09 AM | | procedure are in the | | | | PDT | | results section. | + +--------+ + + + | CBC WITH | Routin | 06/08/2012 | | Results for this | | DIFFERENTIAL | e | 6:15 AM | | procedure are in the | | | | PDT | | results section. | + +--------+ + + + | BASIC METABOLIC | Routin | 06/08/2012 | | Results for this | | PANEL | e | 6:15 AM | | procedure are in the | | | | PDT | | results section. | + +--------+ + + + | FL LUMBAR PUNCTURE | | 06/06/2012 | | Results for this | | DIAGNOSTIC | | 10:48 AM | | procedure are in the | | | | PDT | | results section. | + +--------+ + + + documented in this encounter Results Methotrexate Level (06/10/2012 8:23 AM PDT) + + + + + + | Component | Value | Ref Range | Performed | Pathologist | | | | | At | Signature | + + + + + + | Methotrexat | <0.05Comment: | () umol/L | [facility] | | | e Level | Interpretation depends | | [facility] | | | | on dosing and draw times | | MEDICAL | | | | as well as target | | CENTER - | | | | level for the disease | | LABORATORY | | | | being treated. Testing | | | | | | Performed: [facility] | | | | | | [facility] | | | | | | [facility], [address], | | | | | | [place] [address] | | | | | | CLIA: [id number] | | | | + + + + + + + + | Specimen | + + | | + + + + + + + | Performing | Address | City/State/Zipcode | Phone Number | | Organization | | | | + + + + + | [facility] | [address] | [place] | [phone] | | [facility] | | [address] | | | - LABORATORY | | | | + + + + + | [facility] | [address] | [place] | | | [facility] | | [id number] | | | - LABORATORY | | | | + + + + + Comprehensive Metabolic Panel (06/10/2012 8:23 AM PDT) + + + + + [...] + + + + | Alkaline | 88 | 40 - 110 IU/L | [facility] [...] + + + + | ALT | 46 (H) | 6 - 45 IU/L | [...] 3.6 | 3.2 - 5.0 gm/dL | [facility] | | | | | [...] + + + + | Creatinine | 0.59 (L) | 0.60 - 1.30 | [facility] [...] + + + + | BUN/Creatin | 25.4 (H) | 12 - 20 | [facility] | | | ine Ratio | | | [facility] | | [...] + | [facility] | [address] | [place], [place] | [phone] | | [facility] | | [address] | | | - LABORATORY | | | | + + + + + | [facility] | [address] | [place], [place] | | | [facility] | | [address], [facility] | | | - LABORATORY | | | | + + + + + CBC with Differential (06/10/2012 8:23 AM PDT) + + + + + + | Component | Value | Ref Range | Performed | Pathologist | | | | | At | Signature | + + + + + + | White Blood | 4.7 (A) | 4.0 - 11.0 K/uL | [facility] | | | Cells | | | [facility] | | | | | | MEDICAL | | | | | | CENTER - | | | | | | LABORATORY | | + + + + + + | Red Blood | 2.83 (L) | 3.70 - 5.20 | [facility] | | | Cells | | M/uL | [facility] | | | | | | MEDICAL | | | | | | CENTER - | | | | | | LABORATORY | | + + + + + + | Hemoglobin | 9.8 (L) | 11.5 - 16.0 | [facility] | | | | | gm/dL | [facility] | | | | | | MEDICAL | | | | | | CENTER - | | | | | | LABORATORY | | + + + + + + | Hematocrit | 27.0 (L) | 34.0 - 47.0 % | [facility] | | | | | | [facility] | | | | | | MEDICAL | | | | | | CENTER - | | | | | | LABORATORY | | + + + + + + | MCV | 95.6 | 83.0 - 101.0 fL | [facility] [...] + + + + | MCHC | 36.3 (H) | 32.0 - 36.0 | [facility] [...] + + + + | Platelet | 245 | 140 - 440 K/uL | [facility] | | | Count | | | [facility] | | | | | | MEDICAL | | | | | | CENTER - | | | | | | LABORATORY | | + + + + + + | % | 73.3 | 45 - 75 % | [facility] | | | Neutrophils | | | [facility] | | | | | | MEDICAL | | | | | | CENTER - | | | | | | LABORATORY | | + + + + + + | % | 23.6 | 20 - 45 % | [facility] | | | Lymphocytes | | | [facility] | | | | | | MEDICAL | | | | | | CENTER - | | | | | | LABORATORY | | + + + + + + | % Monocytes | 1.5 (L) | 4 - 12 % | [...] + | [facility] | [address] | [place], [place] | [phone] | | [facility] | | [address] | | | - LABORATORY | | | | + + + + + | [facility] | [address] | [place], [place] | | | [facility] | | [address] [place] [address] | | | - LABORATORY | | | | + + + + + Methotrexate Level (06/09/2012 7:01 AM PDT) + + + + + + | Component | Value | Ref Range | Performed | Pathologist | | | | | At | Signature | + + + + + + | Methotrexat | 0.08Comment: | () umol/L | [facility] | | | e Level | Interpretation depends | | [facility] | | | | on dosing and draw times | | MEDICAL | | | | as well as target | | CENTER - | | | | level for the disease | | LABORATORY | | | | being treated. Testing | | | | | | Performed: [facility] | | | | | | [facility] | | | | | | [place], [address], | | | | | | [place] [address] | | | | | | CLIA: [id number] | | | | + + + + + + + + | Specimen | + + | | + + + + + + + | Performing | Address | City/State/Zipcode | Phone Number | | Organization | | | | + + + + + | [facility] | [address] | [place] | [phone] | | [facility] | | [address] | | | - LABORATORY | | | | + + + + + | [facility] | [address] | [place] | | | [facility] | | [id number] [place] [address] | | | - LABORATORY | | | | + + + + + Basic Metabolic Panel (06/09/2012 7:01 AM PDT) + + + + + [...] + + + + | Creatinine | 0.61 | 0.60 - 1.30 | [facility] | [...] + + + + | BUN/Creatin | 29.5 (H) | 12 - 20 | [facility] [...] + | [facility] | [address] | [place] | [phone] | | [facility] | | [address] | | | - LABORATORY | | | | + + + + + | [facility] | [address] | [place], [place] | | | [facility] | | [address], [facility] | | | - LABORATORY | | | | + + + + + CBC with Differential (06/09/2012 7:01 AM PDT) + + + + + + | Component | Value | Ref Range | Performed | Pathologist | | | | | At | Signature | + + + + + + | White Blood | 5.8 | 4.0 - 11.0 K/uL | [facility] | | | Cells | | | [facility] | | | | | | MEDICAL | | | | | | CENTER - | | | | | | LABORATORY | | + + + + + + | Red Blood | 2.83 (L) | 3.70 - 5.20 | [facility] [...] | | | | gm/dL | [facility] | | | | | | MEDICAL | | | | | | CENTER - | | | | | | LABORATORY | | + + + + + + | Hematocrit | 27.2 (L) | 34.0 - 47.0 % | [facility] | | | | | | [facility] | | | | | | MEDICAL | | | | | | CENTER - | | | | | | LABORATORY | | + + + + + + | MCV | 96.2 | 83.0 - 101.0 fL | [facility] | | | | | | [facility] | | | | | | MEDICAL | | | | | | CENTER - | | | | | | LABORATORY | | + + + + + + | MCH | 35.1 (H) | 28.0 - 35.0 pg | [facility] | | | | | | [facility] | | | | | | MEDICAL | | | | | | CENTER - | | | | | | LABORATORY | | + + + + + + | MCHC | 36.4 (H) | 32.0 - 36.0 | [facility] [...] + + + + | Platelet | 239 | 140 - 440 K/uL | [facility] | | | Count | | | [facility] | | | | | | MEDICAL | | | | | | CENTER - | | | | | | LABORATORY | | + + + + + + | % | 68.4 | 45 - 75 % | [facility] | | | Neutrophils | | | [facility] | | | | | | MEDICAL | | | | | | CENTER - | | | | | | LABORATORY | | + + + + + + | % | 21.9 | 20 - 45 % | [facility] [...] + + + + | Absolute | 4.0 | 1.5 - 6.6 K/uL | [facility] | | | Neutrophils | | | [facility] | | | | | | MEDICAL | | | | | | CENTER - | | | | | | LABORATORY | | + + + + + + | Absolute | 1.3 | 0.6 - 3.2 K/uL | [facility] [...] + | [facility] | [address] | [place] | [phone] | | [facility] | | [address] | | | - LABORATORY | | | | + + + + + | [facility] | [address] | [place], [place] | | | [facility] | | [id number] | | | - LABORATORY | | | | + + + + + Methotrexate Level (06/08/2012 7:09 AM PDT) + + + + + + | Component | Value | Ref Range | Performed | Pathologist | | | | | At | Signature | + + + + + + | Methotrexat | 4.96Comment: | () umol/L | [facility] | | | e Level | Interpretation depends | | [facility] | | | | on dosing and draw times | | MEDICAL | | | | as well as target | | CENTER - | | | | level for the disease | | LABORATORY | | | | being treated. Testing | | | | | | Performed: [facility] | | | | | | [facility] | | | | | | [place], [address], | | | | | | [place] [address] | | | | | | CLIA: [id number] | | | | + + + + + + + + | Specimen | + + | | + + + + + + + | Performing | Address | City/State/Zipcode | Phone Number | | Organization | | | | + + + + + | [facility] | [address] | [place] | [phone] | | [facility] | | [address] | | | - LABORATORY | | | | + + + + + | [facility] | [address] | [place] | | | [facility] | | [address], [facility] | | | - LABORATORY | | | | + + + + + Basic Metabolic Panel (06/08/2012 6:15 AM PDT) + + + + + + | Component | Value | Ref Range | Performed | Pathologist | | | | | At | Signature | + + + + + + | Glucose | 120 (H) | 70 - 109 mg/dL | [...] + + + + | Creatinine | 0.61 | 0.60 - 1.30 | [facility] | [...] + + + + | BUN/Creatin | 18.0 | 12 - 20 | [facility] | [...] + + + | Anion Gap | 8.7 | 6.0 - 17.0 | [facility] | [...] + | [facility] | [address] | [place], [place] | [phone] | | [facility] | | [address] | | | - LABORATORY | | | | + + + + + | [facility] | [address] | [place], [place] | | | [facility] | | [facility], [facility] | | | - LABORATORY | | | | + + + + + CBC with Differential (06/08/2012 6:15 AM PDT) + + + + + + | Component | Value | Ref Range | Performed | Pathologist | | | | | At | Signature | + + + + + + | White Blood | 6.4 (A) | 4.0 - 11.0 K/uL | [...] + + + + | Hemoglobin | 10.1 (L) | 11.5 - 16.0 | [facility] | | | | | gm/dL | [facility] | | | | | | MEDICAL | | | | | | CENTER - | | | | | | LABORATORY | | + + + + + + | Hematocrit | 27.9 (L) | 34.0 - 47.0 % | [...] + + + + | MCHC | 36.3 (H) | 32.0 - 36.0 | [facility] [...] + + + + | Platelet | 238 | 140 - 440 K/uL | [facility] | | | Count | | | [facility] | | | | | | MEDICAL | | | | | | CENTER - | | | | | | LABORATORY | | + + + + + + | % | 59.0 | 45 - 75 % | [facility] | | | Neutrophils | | | [facility] | | | | | | MEDICAL | | | | | | CENTER - | | | | | | LABORATORY | | + + + + + + | % | 25.9 | 20 - 45 % | [facility] | | | Lymphocytes | | | [facility] | | | | | | MEDICAL | | | | | | CENTER - | | | | | | LABORATORY | | + + + + + + | % Monocytes | 12.9 (H) | 4 - 12 % | [facility] | | | | | | [facility] | | | | | | MEDICAL | | | | | | CENTER - | | | | | | LABORATORY | | + + + + + + | % | 1.8 | 0 - 5 % | [facility] [...] + + + + | Absolute | 3.7 | 1.5 - 6.6 K/uL | [facility] [...] | | Basophils | | | [facility] | | | | | | MEDICAL | | | | | | CENTER - | | | | | | LABORATORY | | + + + + + + + + | Specimen | + + | | + + + + + + + | Performing | Address | City/State[facility] | Phone Number | | Organization | | | | + + + + + | [facility] | [address] | [place] | [phone] | | [facility] | | [address] | | | - LABORATORY | | | | + + + + + | [facility] | [address] | [place] | | | [facility] | | [address], [facility] | | | - LABORATORY | | | | + + + + + FL Lumbar Puncture (06/06/2012 10:48 AM PDT) + + | Specimen | + + | | + + + + + | Narrative | Performed At | + + + | [facility] Diagnostic [facility] Department | [facility] | | [address] [facility] | [facility] | | FLUOROSCOPICALLY GUIDED LUMBAR | DIAG IMG | | PUNCTURE CLINICAL HISTORY: REQUEST FOR ACCESS FOR INTRATHECAL | | | CHEMOTHERAPY INJECTION. PROCEDURE: The procedure of lumbar | | | puncture is known to this patient from prior encounters. After re | | | peat discussion, written consent is obtained to proceed. A "timeout" | | | is then performed to confirm pat ient identity and planned procedure. | | | With the patient in the prone position, entry point to the | | | thecal sac at the L3 level is identified f kenan. Skin is | | | marked at this location. Skin is then prepped in sterile fashion. | | | Lidocaine 1% is instilled in the skin and along the proposed pathway | | | of entry. A 22-gauge spinal needle is then atraumatically advanced | | | until the thecal sac is entered and crystal clear CSF is obtained. | | | Dr. Renee is in attendance to then administer the intrathecal | | | chemotherapy. [place] are then wi thdrawn and procedure terminated. | | | IMPRESSION: 1. TECHNICALLY SUCCESSFUL FLUOROSCOPICALLY GUIDED | | | LUMBAR PUNCTURE FOR INTRATHECAL CHEMOTHERAPY. Dictated Date/Time: | | | 06/06/2012 14:25 Transcribed Date/Time: 06/06/2012 14:52 | | | Parts Representative: LIZZ <Electronically Signed by Jorge Luis Merlos | | | MD Jarrett> 06/07/12 0638 | | + + + + + | Procedure Note | + + | Philip Groves Conversion - 12/08/2013 5:49 PM [facility] | | Diagnostic Imaging Department [address] [facility] [place] | | FLUOROSCOPICALLY GUIDED LUMBAR PUNCTURE CLINICAL | | HISTORY: REQUEST FOR ACCESS FOR INTRATHECAL CHEMOTHERAPY INJECTION. PROCEDURE: The | | procedure of lumbar puncture is known to this patient from prior encounters. After | | repeat discussion, written consent is obtained to proceed. A "timeout" is then performed | | to confirm patient identity and planned procedure. With the patient in the prone | | position, entry point to the thecal sac at the L3 level is identified fluoroscopically. | | Skin is marked at this location. Skin is then prepped in sterile fashion. Lidocaine 1% | | is instilled in the skin and along the proposed pathway of entry. A 22-gauge spinal | | needle is then atraumatically advanced until the thecal sac is entered and crystal clear | | CSF is obtained. Dr. Renee is in attendance to then administer the intrathecal | | chemotherapy. [place] are then withdrawn and procedure terminated. IMPRESSION: 1. | | TECHNICALLY SUCCESSFUL FLUOROSCOPICALLY GUIDED LUMBAR PUNCTURE FOR INTRATHECAL | | CHEMOTHERAPY. Dictated Date/Time: 06/06/2012 14:25Transcribed Date/Time: 06/06/2012 | | 14:52Transcriptionist: <Electronically Signed by Jorge Luis Farias MD> 06/07/12 | | 0638 | | atraumatically advanced until the thecal sac is entered and crystal clear CSF is obtained. | | | |Dr. Renee is in attendance to then administer the intrathecal chemotherapy. [place] a re then wi | |thdrawn and procedure terminated. | | | |IMPRESSION: | |1. TECHNICALLY SUCCESSFUL FLUOROSCOPICALLY GUIDED LUMBAR PUNCTURE FOR INTRATHECAL CHEMOTHE RAPY. | | | |Dictated Date/Time: 06/06/2012 14:25 | |Transcribed Date/Time: 06/06/2012 14:52 | |Parts Representative: | |<Electronically Signed by Jorge Luis Farias MD> 06/07/12 0638 | + + + +---------+ + + [...]
--- OUTSIDE RECORDS SUMMARY | ~2020-06-17 | XMS | Encounter Summary ---
Demographics + + + | Address | [address] | | | [place] [address] | + + + | Home Phone [...] + | Author | [facility] | | | and [place] | + + + | Organization | [facility] | | | and [place] [...] [place] | | | | | [address] | | + + + + + | [place] | ECON | [place] | | | | | [address] | | + + + + + Care Team Providers + +------+ + | Care Transformer Mechanic Name | Role | Phone | + +------+ + | Becky Jennings | PCP | | + +------+ + Reason for Visit + +--------+ + | Reason | Onset | Comments | | | Date | | + +--------+ + | Medication Refill | 08/12/ | | | | 2014 | | + +--------+ + Encounter Details +--------+--------+ + + + | Date | Type | Department | Care Team | Description | +--------+--------+ + + + | 08/12/ | Refill | [facility] | [place], | Medication Refill | | 2014 | | [facility] | Antonio Infante MD [address] | | | | | [facility] | [facility] | | | | | [place] | [address] [place] | | | | | [place] [id number] | [id number] | | | | | [phone] | | | +--------+--------+ + + + [...] this encounter Miscellaneous Notes Telephone Encounter - Kimmy Miguel RN - 08/12/2015 11:34 AM PDTCalled pt to let her kno w that her hydrocodone RX is ready to be picked up. Pt states she will come get it.Pato leon signed by Kimmy Miguel RN at 08/12/2015 11:36 AM PDTTelephone Encounter - Gaurang Guevara - 08/12/2015 11:25 AM PDTRaeanne would like to know if the hard copy of her prescript ion is ready to medicinal plant picker. elephone Encounter - Kimmy Miguel RN - 08/12/2015 8:26 AM PDTPt called stating she will be heading out of town and is almost out of her hydrocodone and was wondering if she could get her RX refilled before she leaves. Electronically signed by Kimmy Miguel RN at 2014 8:28 AM PDTdocumented in this encounter Plan of Treatment Not on filedocumented as of this encounter Visit Diagnoses + + | Diagnosis | + + | Burkitt's lymphoma (HCC) - Primary Burkitt's tumor or lymphoma, unspecified site, | | extranodal and solid organ sites | + + documented in this encounter"
--- OUTSIDE RECORDS SUMMARY | ~2020-06-17 | XMS | Encounter Summary ---
Demographics + + + | Address | [address] | | | [place] [address] | + + + | Home Phone | | + + + | Preferred Language | Unknown | + + + | Marital Status | Single | + + + | Denominational Affiliation | NON | + + + | Race | or | + + + | Ethnic Group | Not or | + + + Author + + + | Author | [facility] | + + + | Organization | [facility] | + + [...] [place] | | | | | [phone] | | + + + + + | Greta Broncheau | ECON | Unknown | | + + + + + Care Team Providers + +------+ + | Care Leaf Tinner Name | Role | Phone | + [...] Radiology | Procedures | Yang, | Rad Ct Scan | | | | | CT CHEST | CHARLIE Connelly | [facility] [address] | | | | | WO CONTRAST | [address] | [address] | | | | | | [place] | [facility] | | | | | | [facility] | [facility], | | | | | | [place], [place] | [facility] Floor | | | | | | [address] | [place], [place] | | | | | | Phone: | [phone] | | | | | | [phone] | Phone: | | | | | | Fax: | [phone] | | | | | | [phone] | Fax: | | | | | | | [phone] | +--------+--------+ + + + + Diagnostic Testing (Routine) +--------+--------+ + + + + | Status | Reason | Specialty | Diagnoses / | Referred By | Referred To | | | | | Procedures | Contact | Contact | +--------+--------+ + + + + | Closed | | Cardiology | Procedures | Yang, | Car Echo | | | | | | CHARLIE Connelly | [address] | | | | | TRANSTHORACI | [address] | [address] | | | | | C | [place] | [address] | | | | | [address] | [address] | Maya | | | | | AM, ADULT | [place], [place] | Building, [address]nd | | | | | | [address] | floor | | | | | | Phone: | [place], [place] | | | | | | [phone] | [address] | | | | | | Fax: | Phone: | | | | | | [phone] | [phone] | +--------+--------+ + + + + Reason for Visit +--------+ + | Reason | Comments | +--------+ + | Other | tubular necrosis | +--------+ + | Other | burkitt's lymphoma | +--------+ + AUTH/CERT (Routine) +--------+--------+ + + + [...] + + + + | 02/08/ | Hospital | [facility] [address] | Hong Last, | | | 2011 - | Encounter | [place] Mailcode: | [address] | | | | | [id number] | [place], [place] | | | 02/20/ | | [place], | [address] | | | 2012 | | [place] [address] | | | | | | [phone] | Dylan Martinez | | | | | | MD Bebe | | +--------+ + + + + [...] + + + | Blood Pressure | 130/81 | 02/21/2012 3:36 PM | | | | | PDT | | + + + + + | Pulse | 90 | 02/21/2012 3:36 PM | | | | | PDT | | + + + + + | Temperature | 36.6 C (97.8 F) | 02/21/2012 3:36 PM | | | | | PDT | | + + + + + | Respiratory Rate | 16 | 02/21/2012 3:36 PM | | | | | PDT | | + + + + + | Oxygen Saturation | 96% | 02/21/2012 3:36 PM | | | | | PDT | | + + + + + | Inhaled Oxygen | - | - | | | Concentration | | | | + + + + + | Weight | 85.6 kg (188 lb 11.2 | 02/21/2012 4:02 AM | | | | oz) | PDT | | + + + + + | Height | 162 cm (5' 3.78") | 02/09/2012 6:57 PM | | | | | PDT | | + + + + + | Body Mass Index | 32.61 | 02/09/2012 6:57 PM | | | | | PDT | | + + + + + documented in this encounter Discharge Summaries Shira Cee - 02/21/2012 4:09 PM PDT INPATIENT PHYSICIAN DISCHARGE SUMMARY Attending Physician: Dr. Jasvir Lopez PCP: JING Luis Admission Date: 02/09/2012 Discharge Date: 02/21/12 Diagnoses Principal Final Diagnosis: - acute renal failure Secondary diagnoses/comorbidities: - Burkitt Lymphoma - Pneumonia - Fluid overload - Anemia - Hypertension Procedures 1. rituximab infusion Reason For Admission: Admitted for acute kidney injury and pneumonia Subjective: Overall is feeling well. Continues to have hearing loss. Objective Last Vitals: BP 130/81 | Pulse 90 | Temp 36.6 C (97.8 F) | RR 16 | Ht 162 cm (5' 3.78") | Wt 85.594 kg (188 lb 11.2 oz) | SpO2 96% | BMI 32.61 kg/(m^2) 24 Hour Vital Min/Max: Systolic (24hrs), Av mmHg, Min:129 mmHg, Max:145 mmHg Diastolic (24hrs), Av mmHg, Min:78 mmHg, Max:98 mmHg Pulse Min: 68 Max: 91 Temp Min: 36.3 C (97.3 F) Max: 36.8 C (98.3 F) Resp Min: 14 Max: 16 SpO2 Min: 94 % Max: 98 % Intake/Output Summary (Last 24 hours) at 04/22/12 1610 Last data filed at 02/21/12 1500 Gross per 24 hour Intake 2590 ml Output 3650 ml Net -1060 ml Physical Exam: General: This is a female in no acute distress, sitting up in a chair. HEENT: Sclerae anicteric. Mucosa pink and moist without erythema or exudate. Skin: no new lesions visualized Chest: Clear to ausculation bilaterally. Normal effort. CV: RRR, no murmurs. Abdomen: Soft, distended, NT, NABS. Previous surgical sites c/d/i with no surrounding eryth ludwig. Extremities: Pulses strong and equal bilaterally. No c/c. 1+ pitting BLE edema, improving. Neuro: Alert and oriented x 3. Grossly nonfocal exam. CVC: Single-lumen port-a-cath intact to L anterior chest wall without erythema, induration . Chemistries: Last 72 Hours (or 3 results): Recent Labs Basename 02/21/12 0020 02/20/12 0030 02/19/12 0033 NA 139 139 138 K 4.3 4.1 4.4 CL 106 107 109* BICARB 24 24 23 BUN 32* 38* 43* CR 4.84* 6.38* 7.81* CA 8.5* 8.6 8.4* MG 1.7* 1.6* 1.7* PO4 3.9 4.6 4.9* AST 13* 13* 9* ALT 10* 10* 8* TBILI 0.3 0.3 0.6 AP 122* 123* 110* ALB 2.7* 2.7* 2.4* TP 5.4* 5.4* 5.2* Liver Tests: Last 72 hours (or 3 results) URIC ACID, PLASMA (LAB) (mg/dL) Date Value 02/18/2012 7.7* 02/15/2012 6.6* 02/11/2012 5.5 CBC with diff last 72 hours (or 3 results) Recent Labs Basename 02/21/12 0020 02/20/12 0030 02/19/12 0033 WBC 6.1 6.8 6.2 HB 10.4* 10.0* 9.5* HCT 30.3* 29.3* 27.3* PLT 242 205 185 NEUTROPERC 80* 57 54 BANDPCT -- -- -- LYMPHPERC 18 18 20 MONOPERC 3 25* 26* BASOPERC 0 0 0 EOSPERC 0* 0* 1 Hospital Course: Assessment: Hematology: History: Ms. Young was in her usual good [...] hypertension. She continued to have nausea with emesis, abd pain prompting a return v isit to her PCP office on 09/30/2011. An abdominal ultrasound on 10/01/2011 that showed multi ple fluid filled structures with some internal echoes that were adjacent to the pancreas. Ynes ortiz was also noted to have a fatty liver. She had a follow-up abdomen/pelvic CT scan on that showed numerous masses in the retroperitoneum. The largest of the masses measured 1 0 cm. She was seen by Dr. Jonathan Aranda, Surgery, for further evaluation of her mass. She preferre d the procedure be done at [facility] and she was referred to Dr. Silvio Rm. She was seen on 10/02 for her initial evaluation and then she underwent a laparoscopic exploration of her a bdomen on 11/10/2010 with bx of the mass. There was diffuse peritoneal studding seen as well as low volume ascites. She had a normal appearing gall bladder. Biopsies of her right upper quadrant abdominal wall nodules were obtained. Her ascites was drained and sent for cytology . 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 She admitted to drenching night swea ts, fatigue and unintentional weight loss of 40# over the 2 months prior to her dx. Patient was admitted from clinic for treatment of her lymphoma. She was treated with cycle 1A and given 1B prior to dc. LPs done at [facility] showed no evidence of disease. Then she receiv ed care closer to her home in [place]. She recevied 2A and 2B and did well until she had n eutropenic fevers on day 15 of cycle 2B. She was admitted locally and treated with broad spe ctrum therapy and vancomycin for the fevers. No report of any positive cultures from OSH. Pt was transferred to [facility] after she suddenly went into renal failure. Hospitalization Heme issues: On day of discharge is day 38 s/p cycle 2B of Hyper CVAD (received in [place]) for Burkit t's lymphoma. Received a dose of Rituxan 02/20/12 without the rest of chemo that due because of kidney dys function. Will need further chemo when kidneys recover. No growth factor was used. CBC was followed daily and received transfusion support as need per our supportive care orders. On discharge CBC was remarkable for mild/stable anemia and there were no transfusion needs. Transfusion parameters: Transfuse PRBCs for HCT <24% Transfuse PPH for platelet count <10,000 sooner PRN s/s bleeding. Heme History: -12/04/11 Mammogram completed to f/u L breast soft tissue nodules seen on 11/14/11 CT scan. Sh owed 2 nodules in the L breast that had benign mammographic features. However assessment sta micheal that this was an incomplete study needing additional imaging/comparison. Received images from OSH for comparison; nodules stable from 2001. Repeat screening mammogram in 12/14. Chemotherapy regimen: None received during this admission except for 1 dose of Rituxan. Cardiovascular: Hospitalization cardiovascular issues: During her stay she was intermittently hypertensive, tachycardic with hx of HTN. She was st arted on daily Norvasc 5mg which was then increased to 10mg on 02/19 with increased pressures . Added metoprolol 25 mg po BID for added rate control 02/16/12. Improved overall, continue t o monitor in the outpatient setting. Prior to admission HTN was treated with lisinopril wh ich was d/c'd d/t KIERA Pulmonary: Hospitalization pulmonary issues: Successfully treated for multifocal PNA (bacterial vs. Viral). Was followed by the pulmona ry team. No BAL was indicated during her admission. Was treated with broad spectrum IV ant ibiotics, received 10 days of treatment with Cefepime which was d/c'd on 02/19/12 and complet ed a course of oseltamivir as of 02/14/12. On initial admit was requiring 6L of O2, on discha rge is sat'ing well on RA. We would recommend a follow up CT in the outpatient setting. Imaging: -CXR for fevers 02/09/12: Progressive worsening multifocal consolidation in the perihilar an d right lower/middle lobe areas. Most characteristic for progressive multifocal bacterial PN A. DDx includes cryptogenic organizing PNA. -CT of chest for further evaluation 02/09/12: Multifocal progressive areas of consolidation, largest in R lower lobe lateral basal segment. Concurrent areas of extensive ill-defined no dularity c/w small airway filling is noted, especially in the upper lobes. These findings ar e characteristic for an evolving infectious process. Given the extensive bilaterality, stron g consideration for a viral infection such as influenza, RSV or parainfluenza should be cons idered. The difference possibly would include multifocal bacterial pneumonia, although this is less likely. There is mild hydrostatic edema. -Chest/abdominal Xray 02/10/12: Persistent appearance of multifocal consolidation in the jacinda gs, with bilateral pleural effusions. -CXR 02/13/12: Unchanged bilateral consolidative opacities indicative of pneumonia GI: Hospitalization GI issues: Had occasional nausea and used prn anti-emetics. Continues to use scheduled marinol and wi ll discharge home on it. Chest/abdominal Xray 02/10/12 with no acute abdominal findings. LFTs: WNL Infectious Disease: Hospitalization issues/Bacterial: Had neutropenic fever at OSH and received vancomycin and cefepime. On admission to [facility] con tinued cefepime at renal dose finished on 02/18. for total 10 day course of IV abx. Vancomyc in was not continued here. Her vanco level has been at toxic levels of ~60 and down to 20.3 on discharge (02/21/12). Received levaquin per pulmonary recs and this was stopped on 02/13/12 per ID recs with improvement in pulmonary status. Has been afebrile off antibiotics. Fungal: Prophylactic fluconazole stopped now that counts have recovered. Viral: Continues Prophylactic Acyclovir. Dose reduced to 400mg/day for renal failure. Rec eived oseltamivir (5 days from 02/10/12- 02/14/12) per ID recs. resp virus panel 02/10/12 nega tive. PCP: Prophylactic Bactrim stopped d/t renal failure. Restart once renal function improved. Pertinent positive culture: none Pertinent negative cultures: none Fluid/Electrolyte/Nutrition: See I/O above. Hospitalization diet: Was on a low bacteria. On discharge was tolerating full meals with 1. 9L po fluid intake yesterday. No TPN was needed. Labs: Chemistry panel was reviewed daily. On day of discharge labs were acceptable. Renal function: Cr significantly elevated on arrival. Consulted Nephrology 02/10/12 for further worsening r enal function and creatinine up to 6.9 . They felt this was ATN due to sepsis, toxic vancomy griselda level. Repeated urine lytes - showed FeNa 7.5%. Continued renal dosed cefepime and d/c'd all supportive care orders since they are renally cleared. Report of renal US done in OSH was kept in her chart. Nephrology followed closely and no HD was indicated and was never ini tiated. On 02/17/12 labs were notable for polyuria suggestive of resolving ATN Cr. SCr Humza d at 9.37 and has been trending down since 02/18/12. On discharge SCr improved to 4.84. Other: Patient did become fluid overloaded. Serial images show pleural effusion, persistent edema in BLE. On discharge is autodiuresing Endocrine: -Dx of DM in September 2011. CBGs WNL, no insulin indicated at this time. Did not discharge home with any insulin. ENT: Began having hearing difficulties while inpatient. Was started on debrox gtts but could be from toxic vanco levels being so high for so long. Exams were unremarkable. Would recomme nd audiology follow up with audiogram. Current Discharge Medication List START taking these medications Details amLODIPine 10 mg Oral Tablet Take 1 Tab by mouth once daily. Qty: 30 Tab, Refills: 1 CONTINUE these medications which have CHANGED or have new prescriptions Details acyclovir 800 mg Oral Tablet Take 0.5 Tabs by mouth once daily. Dose decreased due to kidne y dysfunction. Qty: 30 Tab, Refills: 3 Associated Diagnoses: Burkitt's lymphoma dronabinol 5 mg Oral Capsule Take 1 Cap by mouth three times daily before meals. Qty: 90 Cap, Refills: 1 oxyCODONE CR 20 mg Oral Tablet Extended Release 12 hr Take 1 Tab by mouth every twelve hour s. Qty: 60 Tab, Refills: 0 CONTINUE these medications which have NOT CHANGED Details diphenoxylate-atropine 2.5-0.025 mg Oral Tablet Take 1 Tab by mouth twice daily as needed f or diarrhea. Qty: 30 Tab, Refills: 1 ergocalciferol (VITAMIN D) 50,000 unit Oral Capsule Take 50,000 Units by mouth every seven days. LORazepam 0.5 mg Oral Tablet Take 1-2 Tabs by mouth every four hours as needed for anxiety (nausea, vomiting). Qty: 30 Tab, Refills: 0 Associated Diagnoses: Burkitt's lymphoma Omeprazole 20 mg Oral Tablet, Delayed Release (E.C.) Take 1 Tab by mouth once daily. Qty: 30 Tab, Refills: 3 polyethylene glycol (MIRALAX) 17 gram Oral Powder in Packet Take 1 Packet by mouth once dale ly as needed. For constipation. Available over the counter prochlorperazine 5 mg Oral Tablet Take 1-2 Tabs by mouth every four hours as needed for emil sea/vomiting. Max dose: 40 mg/day Qty: 30 Tab, Refills: 2 Associated Diagnoses: Burkitt's lymphoma senna-docusate 8.6-50 mg Oral Tablet Take 1-2 Tabs by mouth every twelve hours as needed. F or constipation. Available over the counter STOP taking these medications fluconazole 200 mg Oral Tablet Comments: Reason for Stopping: insulin lispro 100 unit/mL Subcutaneous Solution Comments: Reason for Stopping: leucovorin 25 mg Oral Tablet Comments: Reason for Stopping: levofloxacin 500 mg Oral Tablet Comments: Reason for Stopping: lisinopril 10 mg Oral Tablet Comments: Reason for Stopping: morphine 15 mg Oral Tablet Comments: Reason for Stopping: nystatin 100,000 unit/g Topical Powder Comments: Reason for Stopping: prednisoLONE acetate 1 % Ophthalmic Drops, Suspension Comments: Reason for Stopping: trimethoprim-sulfamethoxazole 160-800 mg Oral Tablet Comments: Reason for Stopping: Maintain Intravenous Catheter portacath care per protocol Diet Regular Regular diet- There are no restrictions to your diet. You may eat or drink whatever you pr efer, though healthy food choices are recommended. Activity No activity restrictions. Do not drive when taking sedating medications like nausea or pain medications. Destination: Destination: Home Condition on Discharge Good Your Follow-Up Plan Follow up with MATTHEW NORIEGA MD. (February 22 at 2:30 for labs and to see Dr. Janel brady at 3pm. Labs again on 02/24 (walk-in). ) Contact information: [facility] [address] [place] [address] Other Discharge Orders and Instructions Call Dr. Noriega's office, or if you can't get a hold of anyone there, Call the [facility]MT cli ferd ([phone]) or [facility] person on-call ([phone]) for: Any temp > 100.4 Nausea/vomiting unresponsive to compazine or ativan Significant diarrhea despite Imodium Inability to drink at least 2 liters of fluid daily Bleeding Outstanding labs/studies: None Attending Physician: Dylan Martinez MD Greater than 35 minutes spent arranging discharge, medications and follow up Discharging Physician: ANALISA PEGUERO PA-C [facility] [address] [place] [address] Mailcode: [id number] [facility] [place] [address] Gautam Singletary MD - 02/21/2012 2:16 PM PDT Date: 02/21/2012 Bone Marrow Transplant Attending Inpatient Progress Note: I was present and rounded with PRABHAKAR Ortega the NPP today. The history (as documented to day) is reviewed; patient interviewed and personally examined by me. It is noted that patie nt reports: hearing still difficult-both ears, perhaps getting better. I agree with all the NPP s findings of note. Significant findings include: Last Vitals: BP 143/90 | Pulse 84 | Temp 36.3 C (97.3 F) | RR 16 | Ht 162 cm (5' 3.78") | Wt 85.594 kg (188 lb 11.2 oz) | SpO2 95% | BMI 32.61 kg/(m^2) 24 Hour Vital Min/Max: Systolic (24hrs), Av mmHg, Min:129 mmHg, Max:145 mmHg Diastolic (24hrs), Av mmHg, Min:78 mmHg, Max:98 mmHg Pulse Min: 68 Max: 91 Temp Min: 36.3 C (97.3 F) Max: 36.8 C (98.3 F) Resp Min: 14 Max: 18 SpO2 Min: 93 % Max: 98 % Intake/Output Summary (Last 24 hours) at 02/21/12 1418 Last data filed at 02/21/12 1300 Gross per 24 hour Intake 3190 ml Output 4150 ml Net -960 ml Ears both external auditory canals slightly cerumenous, right greater than left. Tympanic m embranes clear but withdrawn-tender external auditory canals to otoscope but no clear wall e rythema seen Lungs clear Heart rrr Abdomen soft nontender Results for ZOFIA YOUNG ( ) as of 02/21/2012 14:18 Ref. Range 02/19/2012 00:33 02/20/2012 00:30 02/21/2012 00:20 SODIUM, PLASMA (LAB) Latest Range: 136-145 mmol/L 138 139 139 POTASSIUM, PLASMA (LAB) Latest Range: 3.5-5.1 mmol/L 4.4 4.1 4.3 CHLORIDE, PLASMA (LAB) Latest Range: 98-107 mmol/L 109 (H) 107 106 TOTAL CO2, PLASMA (LAB) Latest Range: 23-29 mmol/L 23 24 24 ANION GAP Latest Range: 4-11 mmol/L 6 8 9 ANION GAP(ALB CORRECTED) Latest Range: 4-11 mmol/L 10 11 12 (H) BUN, PLASMA (LAB) Latest Range: 6-20 mg/dL 43 (H) 38 (H) 32 (H) CREATININE PLASMA (LAB) Latest Range: 0.6-1.1 mg/dL 7.81 (H) 6.38 (H) 4.84 (H) GLUCOSE, PLASMA (LAB) Latest Range: 60-99 mg/dL 91 110 (H) 238 (H) CALCIUM, PLASMA (LAB) Latest Range: 8.5-10.5 mg/dL 8.4 (L) 8.6 8.5 (L) MAGNESIUM,PLASMA Latest Range: 1.8-2.5 mg/dL 1.7 (L) 1.6 (L) 1.7 (L) PHOSPHORUS, PLASMA (LAB) Latest Range: 2.4-4.7 mg/dL 4.9 (H) 4.6 3.9 AST(SGOT) Latest Range: 15-41 U/L 9 (L) 13 (L) 13 (L) ALT (SGPT) Latest Range: 13-48 U/L 8 (L) 10 (L) 10 (L) ALK PHOS Latest Range: 42-98 U/L 110 (H) 123 (H) 122 (H) BILIRUBIN TOTAL Latest Range: 0.3-1.2 mg/dL 0.6 0.3 0.3 TOTAL PROTEIN, PLASMA (LAB) Latest Range: 6.3-8 g/dL 5.2 (L) 5.4 (L) 5.4 (L) ALBUMIN, PLASMA (LAB) Latest Range: 3.5-4.7 g/dL 2.4 (L) 2.7 (L) 2.7 (L) VANCOMYCIN, RANDOM Latest Range: 5.0-50.0 ug/mL 31.4 26.6 20.3 WHITE CELL COUNT Latest Range: 4.4 - 11.0 K/cu mm 6.2 6.8 6.1 RED CELL COUNT Latest Range: 4.00 - 5.20 M/cu mm 3.00 (L) 3.23 (L) 3.36 (L) HEMOGLOBIN Latest Range: 12.0 - 16.0 g/dL 9.5 (L) 10.0 (L) 10.4 (L) HEMATOCRIT Latest Range: 36.0 - 46.0 % 27.3 (L) 29.3 (L) 30.3 (L) MCV Latest Range: 80.0 - 96.0 fL 91.1 90.6 90.2 MCHC Latest Range: 33.4 - 35.5 g/dL 34.6 34.2 34.1 RDW Latest Range: 11.5 - 15.0 % 15.1 (H) 15.0 15.0 PLATELET COUNT Latest Range: 150-400 K/cu mm 185 205 242 NEUTROPHIL % Latest Range: 50.0 - 70.0 % 54 57 80 (H) LYMPHOCYTE % Latest Range: 18.0 - 42.0 % 20 18 18 MONOCYTE % Latest Range: 2-8 % 26 (H) 25 (H) 3 EOS % Latest Range: 1-3 % 1 0 (L) 0 (L) BASO % Latest Range: < 3 % 0 0 0 NEUTROPHIL # Latest Range: 1.8 - 7.7 K/cu mm 3.3 3.9 4.9 LYMPHOCYTE # Latest Range: 1.0 - 4.8 K/cu mm 1.2 1.2 1.1 MONOCYTE # Latest Range: < 0.9 K/cu mm 1.6 (H) 1.7 (H) 0.2 EOS # Latest Range: < 0.6 K/cu mm 0.1 0.0 0.0 Lab/x-ray findings (as recorded in the NPP s note from today) requiring intervention incl ude: electrolyte abnormalities, anemia and renal insufficiency. I agree with the NPP s assessment and stated plan of care. This includes: Zofia Young Home Medication Instructions [id number] Printed on:02/21/12 8581 Medication Information ergocalciferol (VITAMIN D) 50,000 unit Oral Capsule Take 50,000 Units by mouth every seven days. LORazepam 0.5 mg Oral Tablet Take 1-2 Tabs by mouth every four hours as needed for anxiety (nausea, vomiting). polyethylene glycol (MIRALAX) 17 gram Oral Powder in Packet Take 1 Packet by mouth once daily as needed. For constipation. Available over the counter senna-docusate 8.6-50 mg Oral Tablet Take 1-2 Tabs by mouth every twelve hours as needed. For constipation. Available over the c ounter diphenoxylate-atropine 2.5-0.025 mg Oral Tablet Take 1 Tab by mouth twice daily as needed for diarrhea. prochlorperazine 5 mg Oral Tablet Take 1-2 Tabs by mouth every four hours as needed for nausea/vomiting. Max dose: 40 mg/day Omeprazole 20 mg Oral Tablet, Delayed Release (E.C.) Take 1 Tab by mouth once daily. amLODIPine 10 mg Oral Tablet Take 1 Tab by mouth once daily. oxyCODONE CR 20 mg Oral Tablet Extended Release 12 hr Take 1 Tab by mouth every twelve hours. acyclovir 800 mg Oral Tablet Take 0.5 Tabs by mouth once daily. Dose decreased due to kidney dysfunction. dronabinol 5 mg Oral Capsule Take 1 Cap by mouth three times daily before meals. Patient s primary diagnosis: Diagnoses Principal Final Diagnosis: - acute renal failure Secondary diagnoses/comorbidities: - Burkitt Lymphoma - Pneumonia - Fluid overload - Anemia - Hypertension hypomagnesemia Acute hearing loss Other diagnoses: Patient Active Problem List Diagnoses Burkitt's lymphoma Past Medical History Diagnosis Date UTI (urinary tract infection) Jun-Sep 11 Calculus of kidney Arthropathy, unspecified, site unspecified Type II or unspecified type diabetes mellitus without mention of complication, not stat ed as uncontrolled Unspecified essential hypertension Symptomatic menopausal or female climacteric states HTN (hypertension) Morbid obesity Diabetes mellitus type II Other malignant neoplasm without specification of site Pneumonia, organism unspecified Shortness of breath Type I (juvenile type) diabetes mellitus without mention of complication, not stated as uncontrolled Past Surgical History Procedure Date section 1981 Patient is recovering from aggressive chemotherapy, Day 38 post hypercvad 2B. Continue present supportive care as outlined in our orders. See changes as indicated in ou r orders from today. Other: Would recommend audiogram after she gets home. I suspect vancomcyin has caused some of her hearing loss. She may recover from this-but needs to be followed up on post discharge . Discharge: >30 minutes spent discharging patient. Attending Physician s Total Time is 35 minutes, >50% spent counseling, coordination of ca re. [facility] DEPARTMENT: [id number]- [facility] Place of Service:- Inpatient Date of Service: 02-21-2012 Suggested CPT:03069 - Discharge Day mgmt more than 30 min GAUTAM LOPEZ MD [facility] [address] [facility] Mailcode: [id number] [facility] [phone] documented in this encounter Discharge Instructions Instructions Candie Farnsworth RN - 02/18/2012Case Management Discharge Instruction: Appointment to see Dr. [place]- February 23, 2012 at 3pm. Appointment for CBC, CMP lab draw- February 23, 2012 at 230pm. Appointment for Labs- February 25, 2012-open appointment/walk in Further lab appointment will be determined by Dr. hTelma Braun RN [phone] Call if you have any questions! [facility] ([facility]) during clinic hours (M-F 8:30-4:30): [phone] [facility] ([facility]) at all other times: [phone] 14KPV: [phone] Patient Education Materials: N/A Additional Instructions: Check your oral temperature twice a day and whenever you feel like you may have chills or a fever. Drink at least 2 Liters of fluids per day to prevent dehydration. Shower daily and WASH YOUR HANDS frequently. Rinse out your mouth with normal saline or salt water at least 4x/day. Make sure to brush your teeth at least 2x/day and as needed after meals. Refrain from prolonged periods of time in the sun and make sure you ALWAYS wear sunscreen w hen outdoors. Clean surfaces with antibacterial wipes. Wear a mask when around large groups of people. NO SICK CONTACTS! If this cannot be avoided and you suspect someone may be even mildly ill, have them wear a mask or wear one yourself. Stay active! Perform short periods of activity, then make sure to take time for rest. Discharge Nurse: CANDIE FARNSWORTH RN Date: 02/21/2012 Discharge Time: 1:11 PM documented in this encounter Medications at Time of Discharge + + + +---------+ + + | Medication | Sig | Dispensed | Refills | Start | End Date | | | | | | Date | | + + + +---------+ + + | acyclovir 800 mg | Take 0.5 Tabs by | 30 Tab | 3 | 02/21/20 | | | Oral | mouth once daily. | | | 12 | | | TabletIndications: | Dose decreased due | | | | | | Burkitt's lymphoma | to kidney | | | | | | (HCC) | dysfunction. | | | | | + + + +---------+ + + | amLODIPine 10 mg | Take 1 Tab by mouth | 30 Tab | 1 | 02/21/20 | | | Oral Tablet | once daily. | | | 12 | | + + + +---------+ + [...] + + + +---------+ + + | dronabinol 5 mg | Take 1 Cap by mouth | 90 Cap | 1 | 02/21/20 | | | Oral Capsule | three times daily | | | 12 | | | | before meals. | | | | | + + [...] + + +---------+ + + | oxyCODONE CR 20 mg | Take 1 Tab by mouth | 60 Tab | 0 | 02/20/20 | | | Oral Tablet | every twelve hours. | | | 12 | | | Extended Release 12 | | | | | | | hr | | | | | | + [...] Max | | | | | | ([facility]) | dose: 40 mg/day | | | [...] encounter Progress Notes Dylan Martinez MD - 02/20/2012 1:15 PM PDTLeukemia/CHM Attending Progress Note I was present and rounded today with the NPP. I have independently examined and assessed th e patient. I have personally interviewed the patient, reviewed vitals, history/last 24 hour events and the labs/studies for today. I agree with the NPP's assessment and stated plan of care. See progress note documented by the NPP for details of relevant issues and care plan f or today. Primary diagnosis - acute renal failure Secondary diagnoses/comorbidities: - Burkitt Lymphoma - Pneumonia - Fluid overload - Anemia - Hypertension Overall Assessment/Plan: Zofia Young is a 51 y.o. female with acute renal failure, bilate ral pulmonary infiltrates Day 28 from MTX/niki-C chemotherapy for Burkitt lymphoma; getting HyperCVAD+rituximab. 1. Renal failure Probably drug-related/ATN MTX level undetectable, vanco level high Continues to urinate, creatinine is dropping. Urin output increasing, stable at around 3 li ters Followed by Nephrology, HD not indicated for now given urination and absence of electrolyte abnormalities Lower extremity edema resolving Appreciate Nephrology input 2. Pulmonary infiltrates - pulm suspects improving bacterial PNA, stop cefepime after a total of 10 days- Viral pane l sent, negative - CXR shows edema/infiltrate stable, 02 requirement improved 3. 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 HTN: - on Amlodipine and Metoprolol 5. Code status: full 6. Disposition plan: - anticipate discharge on Wednesday, with follow-up appointment with Dr. Sandra on Total attending time 35 minutes, more than 50% in counseling and coordination of care DYLAN MARTINEZ MD [facility] [id number] [facility] Mailcode: [id number] [place] [facility] [address] [facility] DEPARTMENT: [id number]- [facility] Place of Service:- Inpatient Date of Service: 02/20/2012 Suggested CPT:85163 - Subsequent, Detailed/High complex 35 min urLori pride S - 02/20/2012 11:51 AM PDT . Daily NPP Note - Chemotherapy Admit [facility] Attending: Dylan Martinez MD PCP: JING Luis Date of Admission: 02/09/2012 Hematologic Malignancy: Burkitts lymphoma Reason for admission: KIERA Chemo day: 37 Subjective: Feeling well, still having a hard time hearing, but seems a little improved. Objective: Last Vitals: BP 151/101 | Pulse 79 | Temp 36.6 C (97.9 F) | RR 17 | Ht 162 cm (5' 3.78" ) | Wt 86.229 kg (190 lb 1.6 oz) | SpO2 95% | BMI 32.86 kg/(m^2) 24 Hour Vital Min/Max: Systolic (24hrs), Av mmHg, Min:127 mmHg, Max:158 mmHg Diastolic (24hrs), Av mmHg, Min:83 mmHg, Max:101 mmHg Pulse Min: 78 Max: 90 Temp Min: 36.3 C (97.4 F) Max: 36.7 C (98.1 F) Resp Min: 16 Max: 18 SpO2 Min: 92 % Max: 97 % Intake/Output Summary (Last 24 hours) at 02/20/12 1151 Last data filed at 02/20/12 1100 Gross per 24 hour Intake 3410 ml Output 5600 ml Net -2190 ml Physical Exam: General: This is a female in no acute distress, resting in bed. HEENT: Sclerae anicteric. Mucosa pink and moist without erythema or exudate. Skin: no new lesions visualized Chest: Clear to ausculation bilaterally. Normal effort. CV: RRR, no murmurs. Abdomen: Soft, distended, NT, NABS. Previous surgical sites c/d/i with no surrounding eryth ludwig. Extremities: Pulses strong and equal bilaterally. No c/c. 1+ pitting BLE edema, improving. Neuro: Alert and oriented x 3. Grossly nonfocal exam. CVC: Single-lumen port-a-cath intact to L anterior chest wall without erythema, induration . Lab Results: Recent Labs Basename 02/20/12 0030 02/19/12 0033 02/18/12 0001 NA 139 138 137 K 4.1 4.4 4.4 CL 107 109* 107 BICARB 24 23 21* BUN 38* 43* 45* CR 6.38* 7.81* 8.78* GLU 110* 91 94 CA 8.6 8.4* 8.3* AST 13* 9* 9* ALT 10* 8* 7* AP 123* 110* 105* TBILI 0.3 0.6 0.5 TP 5.4* 5.2* 5.1* ALB 2.7* 2.4* 2.3* Recent Labs Basename 02/20/12 0030 02/19/12 0033 02/18/12 0001 02/14/12 0022 02/13/12 0011 WBC 6.8 6.2 6.2 -- -- RBC 3.23* 3.00* 3.18* -- -- HB 10.0* 9.5* 9.9* -- -- HCT 29.3* 27.3* 28.9* -- -- PLT 205 185 169 -- -- NEUTROPERC 57 54 55 -- -- BANDPCT -- -- 9 2 2 LYMPHPERC 18 20 14* -- -- MONOPERC 25* 26* 20* -- -- BASOPERC 0 0 0 -- -- EOSPERC 0* 1 0* -- -- Meds: Reviewed on rounds, see current MAR for medication list Assessment: Hematology: History: Ms. Young was in her usual good [...] hypertension. She continued to have nausea with emesis, abd pain prompting a return v isit to her PCP office on 09/30/2011. An abdominal ultrasound on 10/01/2011 that showed multi ple fluid filled structures with some internal echoes that were adjacent to the pancreas. Ynes ortiz was also noted to have a fatty liver. She had a follow-up abdomen/pelvic CT scan on that showed numerous masses in the retroperitoneum. The largest of the masses measured 1 0 cm. She was seen by Dr. Jonathan Aranda, Surgery, for further evaluation of her mass. She preferre d the procedure be done at [facility] and she was referred to Dr. Silvio Rm. She was seen on 10/02 for her initial evaluation and then she underwent a laparoscopic exploration of her a bdomen on 11/10/2010 with bx of the mass. There was diffuse peritoneal studding seen as well as low volume ascites. She had a normal appearing gall bladder. Biopsies of her right upper quadrant abdominal wall nodules were obtained. Her ascites was drained and sent for cytolog y. She was discharged from the hospital the following day and a referral was made to the hem atology clinic Her preliminary lymph node biopsy returned as likely Burkitt's lymphoma and she was called to come to the clinic earlier then initially scheduled. She admitted to [facility], fatigue and unintentional weight loss of 40# over the 2 months prior to her dx. Patient was admitted from clinic for treatment of her lymphoma. She was treated with cycle 1A and given 1B prior to dc. LPs done at [facility] showed no evidence of disease. Then she receiv ed care closer to her home in [place]. She recevied 2A and 2B and did well until she had n eutropenic fevers on day 15 of cycle 2B. She was admitted locally and treated with broad spe ctrum therapy and vancomycin for the fevers. No report of any positive cultures from OSH. Pt was transferred to [facility] after she suddenly went into renal failure. Current Heme issues: -Hx of Burkitt's lymphoma, currently day 37 s/p cycle 2B of Hyper CVAD (received in [place]). -will give Rituxan today without rest of chemo due to kidney dysfunction. Will need further chemo when kidneys recover. -CBC shows counts recovered with stable anemia. -No transfusion support required today. Hospitalization Heme issues: -12/04/11 Mammogram completed to f/u L breast soft tissue nodules seen on 11/14/11 CT scan. Sh owed 2 nodules in the L breast that had benign mammographic features. However assessment sta micheal that this was an incomplete study needing additional imaging/comparison. Received image s from OSH for comparison; nodules stable from 2001. Repeat screening mammogram in 12/14. Chemotherapy regimen: None during this admission. Growth factor: no indication for use at this time. Labs: Continue to check CBC daily Transfusion parameters: Transfuse PRBCs for HCT <24% Transfuse PPH for platelet count <10,000 sooner PRN s/s bleeding. Cardiovascular: Current cardiovascular issues: -Was intermittently hypertensive, tachycardic with hx of HTN. Started Norvasc 5mg daily, in creased to 10mg on 02/19 with increased pressures. Added metoprolol 25 mg po BID for added ra te control 02/16/12. Improved overall, continue to monitor. Hospitalization CV issues: -Hx of HTN, was on lisinopril. D/c'd lisinopril d/t KIERA. Pulmonary: Current pulmonary issues: -Currently on room air, improved from 6L on admission. -treated for presumed bacterial pneumonia, stopped cefepime 02/18, after receiving 10 day co urse of IV abx. Hospitalization pulmonary issues: Pulmonary team followed for multifocal PNA (bacterial vs viral), no BAL indicated at this time. Continues broad-spectrum IV abx. Completed course of oseltamivir as of 02/14/12. Imaging: -CXR for fevers 02/09/12: Progressive worsening multifocal consolidation in the perihilar an d right lower/middle lobe areas. Most characteristic for progressive multifocal bacterial PN A. DDx includes cryptogenic organizing PNA. -CT of chest for further evaluation 02/09/12: Multifocal progressive areas of consolidation, largest in R lower lobe lateral basal segment. Concurrent areas of extensive ill-defined no dularity c/w small airway filling is noted, especially in the upper lobes. These findings ar e characteristic for an evolving infectious process. Given the extensive bilaterality, stron g consideration for a viral infection such as influenza, RSV or parainfluenza should be cons idered. The difference possibly would include multifocal bacterial pneumonia, although this is less likely. There is mild hydrostatic edema. -Chest/abdominal Xray 02/10/12: Persistent appearance of multifocal consolidation in the jacinda gs, with bilateral pleural effusions. -CXR 02/13/12: Unchanged bilateral consolidative opacities indicative of pneumonia GI: Current GI issues: - No N/V/D yesterday -continues marinol q 6 hrs Hospitalization GI issues: -Chest/abdominal Xray 02/10/12: No acute abdominal findings. Receiving: PRN antiemetics, pain control LFTs: WNL Infectious Disease: See current MAR for antimicrobials. Current issues/Bacterial: -Neutropenic fever at OSH, received vancomycin and cefepime. On admission to [facility] continue d cefepime at renal dose through 10 day course, finished on 02/18. for total 10 day course of IV abx. Vancomycin was not continued here. Her vanco level has been at toxic levels of ~60 and down to 26 today. -Received levaquin per pulmonary recs, stopped on 02/13/12 per ID recs with improvement in p ulmonary status. -received oseltamivir (5 days to 02/10/12- 02/14/12) per ID recs, resp virus panel 02/10/12 ne [place]. -afebrile off antibotics. Fungal: Prophylactic fluconazole stopped now that counts have recovered. Viral: Prophylactic Acyclovir. Dose reduced to 400mg/day for renal failure. PCP: Prophylactic Bactrim stopped d/t renal failure. Restart once renal function improved. Pertinent positive culture: none Pertinent negative cultures: none Fluid/Electrolyte/Nutrition: See I/O above. Current diet: low bacteria. Tolerated partial meals with 2.8 L po fluid intake yesterday. E ncourage po intake as tolerated with goal of 2L of po fluids daily. MIVF: none at this time TPN: not required at this time Labs: Electrolytes reviewed. Potassium and phos wnl. Renal function: -Cr significantly elevated on arrival -Consulted Nephrology 02/10/12 for further worsening renal function and creatinine up to 6.9 . They feel this is ATN due to sepsis, toxic vancomycin level. Repeated urine lytes - shows FeNa 7.5%. Continue renal dosed cefepime. D/c'd all supportive care orders that are renally cleared. -Renal US done in OSH, report on chart. -Nephrology followed closely --> no HD indicated and was never initiated. -starting 02/17/12 noted for polyuria suggestive of resolving ATN Cr. Peaked at 9.37 and now trending down to 6.38 today. Other: Fluid overload. Serial images show pleural effusion, persistent edema in BLE, curren tly autodiuresing Endocrine: -Dx of DM in September 2011. CBGs WNL, no insulin indicated at this time. Sabrina Fowler PA-C [facility] [id number] [facility] Mailcode: [id number] [facility] [phone] Ingrid Lau - 02/19/2012 6:44 PM PDTPatient Name: ZOFIA YOUNG Date of : 1960 CARE COORDINATION ROUNDING NOTE Care Coordination rounds held. Disciplines attending included: Physician,, Physician's Sole Molder,, Nurse Practitioner,, Pharmacist, Other: Electronically signed by:Ingrid Braun Position:Health Science Specialist Pager ID:[phone] 12 6:44 PM PDTBurSabrina pride - 02/19/2012 5:37 PM PDT Daily NPP Note - Chemotherapy Admit [facility]plications [facility] Attending: Dylan Martinez MD PCP: JING Luis Date of Admission: 02/09/2012 Hematologic Malignancy: Burkitts lymphoma Reason for admission: KIERA Chemo day: 36 Subjective: Visiting with family. Feeling well, however complains of ears feeling clogged and not hearing as well. Objective: Last Vitals: BP 127/83 | Pulse 81 | Temp 36.6 C (97.8 F) | RR 18 | Ht 162 cm (5' 3.78") | Wt 91.581 kg (201 lb 14.4 oz) | SpO2 95% | BMI 34.90 kg/(m^2) 24 Hour Vital Min/Max: Systolic (24hrs), Av mmHg, Min:126 mmHg, Max:152 mmHg Diastolic (24hrs), Av mmHg, Min:73 mmHg, Max:103 mmHg Pulse Min: 71 Max: 97 Temp Min: 36.2 C (97.2 F) Max: 37 C (98.6 F) Resp Min: 16 Max: 18 SpO2 Min: 94 % Max: 96 % Intake/Output Summary (Last 24 hours) at 02/19/12 1737 Last data filed at 02/19/12 1400 Gross per 24 hour Intake 2005 ml Output 4050 ml Net -2045 ml Physical Exam: General: This is a female in no acute distress, resting in bed. HEENT: Sclerae anicteric. Mucosa pink and moist without erythema or exudate. Skin: no new lesions visualized Chest: Clear to ausculation bilaterally. Normal effort. CV: RRR, no murmurs. Abdomen: Soft, distended, NT, NABS. Previous surgical sites c/d/i with no surrounding eryth ludwig. Extremities: Pulses strong and equal bilaterally. No c/c. 1+ pitting BLE edema, improving. Neuro: Alert and oriented x 3. Grossly nonfocal exam. CVC: Single-lumen port-a-cath intact to L anterior chest wall without erythema, induration . Lab Results: Recent Labs Basename 02/19/12 0033 02/18/12 0001 02/17/12 0010 NA 138 137 135 K 4.4 4.4 4.4 CL 109* 107 104 BICARB 23 21* 21* BUN 43* 45* 47* CR 7.81* 8.78* 9.37* GLU 91 94 88 CA 8.4* 8.3* 8.2* AST 9* 9* 8* ALT 8* 7* 5* AP 110* 105* 106* TBILI 0.6 0.5 0.6 TP 5.2* 5.1* 4.7* ALB 2.4* 2.3* 2.2* Recent Labs Basename 02/19/12 0033 02/18/12 0001 02/17/12 0010 02/14/12 0022 02/13/12 0011 WBC 6.2 6.2 5.5 -- -- RBC 3.00* 3.18* 3.07* -- -- HB 9.5* 9.9* 9.5* -- -- HCT 27.3* 28.9* 27.5* -- -- PLT 185 169 151 -- -- NEUTROPERC 54 55 51 -- -- BANDPCT -- 9 -- 2 2 LYMPHPERC 20 14* 18 -- -- MONOPERC 26* 20* 30* -- -- BASOPERC 0 0 0 -- -- EOSPERC 1 0* 0* -- -- Meds: Reviewed on rounds, see current MAR for medication list Assessment: Hematology: History: Ms. Young was in her usual good [...] hypertension. She continued to have nausea with emesis, abd pain prompting a return v isit to her PCP office on 09/30/2011. An abdominal ultrasound on 10/01/2011 that showed multi ple fluid filled structures with some internal echoes that were adjacent to the pancreas. Ynes ortiz was also noted to have a fatty liver. She had a follow-up abdomen/pelvic CT scan on that showed numerous masses in the retroperitoneum. The largest of the masses measured 1 0 cm. She was seen by Dr. Jonathan Aranda, Surgery, for further evaluation of her mass. She preferre d the procedure be done at [facility] and she was referred to Dr. Silvio Rm. She was seen on 10/02 for her initial evaluation and then she underwent a laparoscopic exploration of her a bdomen on 11/10/2010 with bx of the mass. There was diffuse peritoneal studding seen as well as low volume ascites. She had a normal appearing gall bladder. Biopsies of her right upper quadrant abdominal wall nodules were obtained. Her ascites was drained and sent for cytolog y. She was discharged from the hospital the following day and a referral was made to the hem atology clinic Her preliminary lymph node biopsy returned as likely Burkitt's lymphoma and she was called to come to the clinic earlier then initially scheduled. She admitted to drenching night swea ts, fatigue and unintentional weight loss of 40# over the 2 months prior to her dx. Patient was admitted from clinic for treatment of her lymphoma. She was treated with cycle 1A and given 1B prior to dc. LPs done at [facility] showed no evidence of disease. Then she receiv ed care closer to her home in [place]. She recevied 2A and 2B and did well until she had n eutropenic fevers on day 15 of cycle 2B. She was admitted locally and treated with broad spe ctrum therapy and vancomycin for the fevers. No report of any positive cultures from OSH. Pt was transferred to [facility] after she suddenly went into renal failure. Current Heme issues: -Hx of Burkitt's lymphoma, currently day 36 s/p cycle 2B of Hyper CVAD (received in [place]). -CBC shows counts recovered with stable anemia. -No transfusion support required today. Hospitalization Heme issues: -12/04/11 Mammogram completed to f/u L breast soft tissue nodules seen on 11/14/11 CT scan. Sh owed 2 nodules in the L breast that had benign mammographic features. However assessment sta micheal that this was an incomplete study needing additional imaging/comparison. Received image s from OSH for comparison; nodules stable from 2001. Repeat screening mammogram in 12/14. Chemotherapy regimen: None during this admission. Growth factor: no indication for use at this time. Labs: Continue to check CBC daily Transfusion parameters: Transfuse PRBCs for HCT <24% Transfuse PPH for platelet count <10,000 sooner PRN s/s bleeding. Cardiovascular: Current cardiovascular issues: -Was intermittently hypertensive, tachycardic with hx of HTN. Continues Norvasc 5mg daily, added metoprolol 25 mg po BID for added rate control 02/16/12. Improved overall, continue to monitor. Hospitalization CV issues: -Hx of HTN, was on lisinopril. D/c'd lisinopril d/t KIERA. Pulmonary: Current pulmonary issues: -Currently on room air, improved from 6L on admission. -treated for presumed bacterial pneumonia, stopped cefepime 02/18, after receiving 10 day co urse of IV abx. Hospitalization pulmonary issues: Pulmonary team followed for multifocal PNA (bacterial vs viral), no BAL indicated at this time. Continues broad-spectrum IV abx. Completed course of oseltamivir as of 02/14/12. Imaging: -CXR for fevers 02/09/12: Progressive worsening multifocal consolidation in the perihilar an d right lower/middle lobe areas. Most characteristic for progressive multifocal bacterial PN A. DDx includes cryptogenic organizing PNA. -CT of chest for further evaluation 02/09/12: Multifocal progressive areas of consolidation, largest in R lower lobe lateral basal segment. Concurrent areas of extensive ill-defined no dularity c/w small airway filling is noted, especially in the upper lobes. These findings ar e characteristic for an evolving infectious process. Given the extensive bilaterality, stron g consideration for a viral infection such as influenza, RSV or parainfluenza should be cons idered. The difference possibly would include multifocal bacterial pneumonia, although this is less likely. There is mild hydrostatic edema. -Chest/abdominal Xray 02/10/12: Persistent appearance of multifocal consolidation in the jacinda gs, with bilateral pleural effusions. -CXR 02/13/12: Unchanged bilateral consolidative opacities indicative of pneumonia GI: Current GI issues: -vomited once yesterday, with bowel movement recorded. -continues marinol q 6 hrs Hospitalization GI issues: -Chest/abdominal Xray 02/10/12: No acute abdominal findings. Receiving: PRN antiemetics, pain control LFTs: WNL Infectious Disease: See current MAR for antimicrobials. Current issues/Bacterial: -Neutropenic fever at OSH, received vancomycin and cefepime. On admission to [facility] continue d cefepime at renal dose through 10 day course, finished on 02/18. for total 10 day course of IV abx. Vancomycin was not continued here. Her vanco level has been at toxic levels of ~60 and down to 31 today. -Received levaquin per pulmonary recs, stopped on 02/13/12 per ID recs with improvement in p ulmonary status. -received oseltamivir (5 days to 02/10/12- 02/14/12) per ID recs, resp virus panel 02/10/12 ne gative. -afebrile off antibotics. Fungal: Prophylactic fluconazole. Viral: Prophylactic Acyclovir. PCP: Prophylactic Bactrim stopped d/t renal failure. Restart once renal function improved. Pertinent positive culture: none Pertinent negative cultures: none Fluid/Electrolyte/Nutrition: See I/O above. Current diet: low bacteria. Tolerated partial meals with 540mL po fluid intake yesterday. E ncourage po intake as tolerated with goal of 2L of po fluids daily. MIVF: none at this time TPN: not required at this time Labs: Electrolytes reviewed. Potassium and phos wnl. Renal function: -Cr significantly elevated on arrival -Consulted Nephrology 02/10/12 for further worsening renal function and creatinine up to 6.9 . They feel this is ATN due to sepsis, toxic vancomycin level. Repeated urine lytes - shows FeNa 7.5%. Continue renal dosed cefepime. D/c'd all supportive care orders that are renally cleared. -Renal US done in OSH, report on chart. -Nephrology followed closely --> no HD indicated and was never initiated. -starting 02/17/12 noted for polyuria suggestive of resolving ATN Cr. Peaked at 9.37 and now trending down to 7.8 today. Other: Fluid overload. Serial images show pleural effusion, persistent edema in BLE, curren tly autodiuresing Endocrine: -Dx of DM in September 2011. CBGs WNL, no insulin indicated at this time. Sabrina Fowler PA-C [facility] [id number] [facility] Mailcode: [id number] [place] [facility] [id number] Gautam Tapia MD 02/19/2012 8:16 AM PDT NEPHROLOGY FOLLOW UP NOTE Hospital Day # 10 Consultation Date: Author: GAUTAM PARKS MD Consulting Attending: Adriano Figueroa MD Interval Hx: - Cr continuing to trend down - brisk urine output continues, -3L yesterday S: feels good, delighted to hear kidneys are recovering, breathing is comfortable off oxyge n, swelling in legs is improving Physical Exam: Last Vitals: BP 152/103[RN notified[ | Pulse 88 | Temp 36.5 C (97.7 F) | RR 16 | Ht 162 cm (5' 3.78") | Wt 91.581 kg (201 lb 14.4 oz) | SpO2 96% | BMI 34.90 kg/(m^2) 24 Hour Vital Min/Max: Systolic (24hrs), Av mmHg, Min:123 mmHg, Max:152 mmHg Diastolic (24hrs), Av mmHg, Min:73 mmHg, Max:103 mmHg Pulse Min: 76 Max: 97 Temp Min: 36.2 C (97.2 F) Max: 37 C (98.6 F) Resp Min: 16 Max: 18 SpO2 Min: 94 % Max: 96 % Intake/Output Summary (Last 24 hours) at 02/19/12 0817 Last data filed at 02/19/12 0811 Gross per 24 hour Intake 995 ml Output 3700 ml Net -2705 ml Gen: Sitting in chair, alert, interactive, appears very happy HEENT: Extraocular movements are intact, oropharynx is clear with no exudates or erythema. No scleral icterus. Chest: Mild rhonchi R>L, good air movement, no rales CV: Regular rate and rhythm, no murmurs or rubs Abd: Soft, non-tender, non-distended, normal bowel sounds Extr: Warm, 1+ pitting BLE edema to knees Current Inpatient Medications: Scheduled Medications Medication Dose Route Frequency Last Rate acyclovir (aka ZOVIRAX) tablet 400 mg 400 mg Oral DAILY amLODIPine (aka NORVASC) tablet 5 mg 5 mg Oral DAILY ceFEPIme (aka MAXIPIME) IV 1 g 1 g Intravenous Q24H 1 g (02/18/12 1800) dronabinol (aka MARINOL) capsule 5 mg 5 mg Oral Q6H metoprolol tartrate (aka LOPRESSOR) tablet 25 mg 25 mg Oral BID omeprazole (aka PRILOSEC) capsule 20 mg 20 mg Oral DAILY oxyCODONE CR (aka OXYCONTIN) tablet 20 mg 20 mg Oral Q12H PRN Medications Medication Dose Route Frequency Last Rate acetaminophen (aka TYLENOL) tablet 325-650 mg 325-650 mg Oral Q4H PRN alteplase (aka CATHFLO ACTIVASE) injection 2 mg 2 mg Intracatheter PRN aluminum-magnesium hydroxide-simethicone (aka MAALOX; MYLANTA) 200-200-20 mg/5 mL suspe nsion 30 mL 30 mL Oral Q3H PRN dextrose IV 25 mL 25 mL Intravenous PRN diphenhydrAMINE (aka BENADRYL) capsule 25 mg 25 mg Oral Q4H PRN diphenoxylate-atropine (aka LOMOTIL) 2.5-0.025 mg 1 Tab 1 Tab Oral BID PRN droperidol (aka INAPSINE) injection 0.625 mg 0.625 mg Intravenous Q2H PRN 0.625 mg ( 0529) glucagon (aka GLUCAGEN) injection 1 mg 1 mg Intramuscular PRN glucose chewable tablet 16 g 16 g Oral Q15MIN PRN heparin 10 unit/mL IV flush syringe 50 Units 50 Units Intravenous PRN 50 Units (1999) lactulose (aka ENULAC) liquid 20 g 30 mL Oral TID PRN lanolin-mineral oil (aka LUBRIDERM) lotion Topical Q2H PRN loperamide (aka IMODIUM) capsule 2 mg 2 mg Oral PRN LORazepam (aka ATIVAN) tablet 0.5-1 mg 0.5-1 mg Oral Q4H PRN magnesium hydroxide (aka MILK OF MAGNESIA) suspension 30 mL 30 mL Oral Q6H PRN magnesium sulfate IV 2 g 2 g Intravenous PRN 2 g (02/17/12 0421) nystatin-zinc oxide-lidocaine (aka NDX) ointment Topical Q1H PRN oxyCODONE immediate release (aka ROXICODONE) tablet 5-10 mg 5-10 mg Oral Q4H PRN polyethylene glycol (aka MIRALAX) powder 17 g 17 g Oral DAILY PRN prochlorperazine (aka COMPAZINE) tablet 5-10 mg 5-10 mg Oral Q4H PRN senna-docusate (aka SENOKOT S) 8.6-50 mg 1-2 Tab 1-2 Tab Oral Q12H PRN sodium chloride (aka OCEAN) 0.65 % nasal spray 1 [place] 1 [place] Nasal Q1H PRN temazepam (aka RESTORIL) capsule 15 mg 15 mg Oral HS PRN Continuous Medications Medication Dose Route Frequency Last Rate Data: Chemistries: Last 72 Hours (or 3 results): Recent Labs Basename 02/19/12 0033 02/18/12 0001 02/17/12 0010 NA 138 137 135 K 4.4 4.4 4.4 CL 109* 107 104 BICARB 23 21* 21* BUN 43* 45* 47* CR 7.81* 8.78* 9.37* GLU 91 94 88 CA 8.4* 8.3* 8.2* MG 1.7* 1.9 1.6* PO4 4.9* 4.7 4.7 CBC with diff last 72 hours (or 3 results) Recent Labs Basename 02/19/12 0033 02/18/12 0001 02/17/12 0010 WBC 6.2 6.2 5.5 HB 9.5* 9.9* 9.5* HCT 27.3* 28.9* 27.5* PLT 185 169 151 NEUTROPERC -- 55 51 BANDPCT -- 9 -- LYMPHPERC -- 14* 18 MONOPERC -- 20* 30* BASOPERC -- 0 0 EOSPERC -- 0* 0* Vanc = 31.4 Assessment: Zofia Young is a 51 y.o. 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 Now recovering, creatinine is trending down, starting to h ave good clearance, UOP is excellent. Recommendations: - monitor for post ATN diuresis - when plan for discharge should have close lab follow up to assure continued renal recov ayaan - we will sign off The patient was seen and discussed with Dr. Figueroa who agrees with the above assessment a nd plan. GAUTAM PARKS MD Internal Medicine PGY2 Pager [phone] Dylan Yusuf M D - 02/19/2012 7:10 AM PDTLeukemia/CHM Attending Progress Note I was present and rounded today with the NPP. I have independently examined and assessed th e patient. I have personally interviewed the patient, reviewed vitals, history/last 24 hour events and the labs/studies for today. I agree with the NPP's assessment and stated plan of care. See progress note documented by the NPP for details of relevant issues and care plan f or today. Primary diagnosis - acute renal failure Secondary diagnoses/comorbidities: - Burkitt Lymphoma - Pneumonia - Fluid overload - Anemia - Hypertension Overall Assessment/Plan: Zofia Young is a 51 y.o. female with acute renal failure, bilate ral pulmonary infiltrates Day 28 from MTX/niki-C chemotherapy for Burkitt lymphoma; getting HyperCVAD+rituximab. 1. Renal failure Probably drug-related/ATN MTX level undetectable, vanco level high Continues to urinate, creatinine is dropping. Urin output increasing, stable at around 3 li ters Followed by Nephrology, HD not indicated for now given urination and absence of electrolyte abnormalities Lower extremity edema resolving Appreciate Nephrology input 2. Pulmonary infiltrates - pulm suspects improving bacterial PNA, stop cefepime after a total of 10 days- Viral pane l sent, negative - CXR shows edema/infiltrate stable, 02 requirement improved 3. Burkitt lymphoma - sporadic BL, having responded to hyper-CVAD/Rituximab combination - s/p cycle 2B - no consolidation planned for now - plan Rituxan maintenance administration prior to discharge - high risk for relapse but current issues trump continued therapy - transfusion per guidelines 4. HTN: - on Amlodipine and Metoprolol 5. Code status: full 6. Disposition plan: - anticipate discharge on Wednesday, with follow-up appointment with Dr. Sandra on Total attending time 35 minutes, more than 50% in counseling and coordination of care DYLAN MARTINEZ MD [facility] [id number] [facility] Mailcode: [id number] [place] [id number] [facility] DEPARTMENT: [id number]- [facility] [place] Place of Service:- Inpatient Date of Service: 02/19/2012 Suggested CPT:15542 - Subsequent, Detailed/High complex 35 min Ingrid Lau - 02/18/2012 6:43 PM PDTPatient Name: ZOFIA YOUNG Date of : 1960 CARE COORDINATION ROUNDING NOTE Care Coordination rounds held. Disciplines attending included: Health Science Specialist,, Bedside RN,, service provider,, Physician,, Physician's Sole Molder,, Nurse Practitioner,, Webbing Inspector,, Other: Electronically signed by:Ingrid Braun Position:Health Science Specialist Pager ID:[phone] 12 6:43 PM Ingrid Lau - 02/18/2012 4:47 PM PDTPatient Name: ZOFIA YOUNG Date of : 1960 CASE MANAGEMENT PROGRESS NOTE UPDATED DISCHARGE PLANNING INFORMATION * Notes: Appointment to see Dr. Noriega- February 23, 2012 at 3pm. Appointment for CBC, CMP lab draw- February 23, 2012 at 230pm. Appointment for Labs- February 25, 2012-open appointment/walk in Further lab appointment will be determined by Dr. Thelma Braun RN [phone] Electronically signed by:Ingrid Braun Position:Health Science Specialist Pager ID:[phone] 12 4:47 PM PDTLemuelIngrid - 02/18/2012 4:47 PM PDTPatient Name: ZOFIA YOUNG Date of : 1960 CARE COORDINATION ROUNDING NOTE Care Coordination rounds held. Disciplines attending included: Health Science Specialist,, Bedside RN,, service provider,, Physician,, Physician's Sole Molder,, Nurse Practitioner,, Webbing Inspector,, Other: Electronically signed by:Ingrid Braun Position:Health Science Specialist Pager ID:[phone] 12 4:47 PM PDTMalcolmSabrina Darline - 02/18/2012 1:50 PM PDT Daily NPP Note - Chemotherapy Admit [facility]plications [facility] Attending: Dylan Martinez MD PCP: JING Luis Date of Admission: 02/09/2012 Hematologic Malignancy: Burkitts lymphoma Reason for admission: KIERA Chemo day: 35 Subjective: Resting, feels well. Objective: Last Vitals: BP 133/90 | Pulse 91 | Temp 36.4 C (97.6 F) | RR 18 | Ht 162 cm (5' 3.78") | Wt 92.352 kg (203 lb 9.6 oz) | SpO2 96% | BMI 35.19 kg/(m^2) 24 Hour Vital Min/Max: Systolic (24hrs), Av mmHg, Min:133 mmHg, Max:146 mmHg Diastolic (24hrs), Av mmHg, Min:82 mmHg, Max:96 mmHg Pulse Min: 85 Max: 94 Temp Min: 36.2 C (97.1 F) Max: 36.7 C (98.1 F) Resp Min: 18 Max: 18 SpO2 Min: 94 % Max: 97 % Intake/Output Summary (Last 24 hours) at 02/18/12 1350 Last data filed at 02/18/12 1100 Gross per 24 hour Intake 1090 ml Output 3900 ml Net -2810 ml Physical Exam: General: This is a female in no acute distress, resting in bed. HEENT: Sclerae anicteric. Mucosa pink and moist without erythema or exudate. Skin: no new lesions visualized Chest: Clear to ausculation bilaterally. Normal effort. CV: RRR, no murmurs. Abdomen: Soft, distended, NT, NABS. Previous surgical sites c/d/i with no surrounding eryth ludwig. Extremities: Pulses strong and equal bilaterally. No c/c. 2+ pitting pedal edema Neuro: Alert and oriented x 3. Grossly nonfocal exam. CVC: Single-lumen port-a-cath intact to L anterior chest wall without erythema, induration . Lab Results: Recent Labs Basename 02/18/12 0001 02/17/12 0010 02/16/12 0008 NA 137 135 135 K 4.4 4.4 4.5 CL 107 104 106 BICARB 21* 21* 20* BUN 45* 47* 42* CR 8.78* 9.37* 9.03* GLU 94 88 82 CA 8.3* 8.2* 8.2* AST 9* 8* 8* ALT 7* 5* 7* AP 105* 106* 110* TBILI 0.5 0.6 0.8 TP 5.1* 4.7* 5.0* ALB 2.3* 2.2* 2.2* Recent Labs Basename 02/18/12 0001 02/17/12 0010 02/16/12 0008 02/14/12 0022 02/13/12 0011 WBC 6.2 5.5 5.8 -- -- RBC 3.18* 3.07* 3.13* -- -- HB 9.9* 9.5* 9.8* -- -- HCT 28.9* 27.5* 28.5* -- -- PLT 169 151 137* -- -- NEUTROPERC 55 51 64 -- -- BANDPCT 9 -- -- 2 2 LYMPHPERC 14* 18 11* -- -- MONOPERC 20* 30* 24* -- -- BASOPERC 0 0 0 -- -- EOSPERC 0* 0* 1 -- -- Meds: Reviewed on rounds, see current MAR for medication list Assessment: Hematology: History: Ms. Young was in her usual good [...] hypertension. She continued to have nausea with emesis, abd pain prompting a return v isit to her PCP office on 09/30/2011. An abdominal ultrasound on 10/01/2011 that showed multi ple fluid filled structures with some internal echoes that were adjacent to the pancreas. Ynes ortiz was also noted to have a fatty liver. She had a follow-up abdomen/pelvic CT scan on that showed numerous masses in the retroperitoneum. The largest of the masses measured 1 0 cm. She was seen by Dr. Jonathan Aranda, Surgery, for further evaluation of her mass. She preferre d the procedure be done at [facility] and she was referred to Dr. Silvio Rm. She was seen on 10/02 for her initial evaluation and then she underwent a laparoscopic exploration of her a bdomen on 11/10/2010 with bx of the mass. There was diffuse peritoneal studding seen as well as low volume ascites. She had a normal appearing gall bladder. Biopsies of her right upper quadrant abdominal wall nodules were obtained. Her ascites was drained and sent for cytolog y. She was discharged from the hospital the following day and a referral was made to the hem atology clinic Her preliminary lymph node biopsy returned as likely Burkitt's lymphoma and she was called to come to the clinic earlier then initially scheduled. She admitted to drenching night swea ts, fatigue and unintentional weight loss of 40# over the 2 months prior to her dx. Patient was admitted from clinic for treatment of her lymphoma. She was treated with cycle 1A and given 1B prior to dc. LPs done at [facility] showed no evidence of disease. Then she receiv ed care closer to her home in [place]. She recevied 2A and 2B and did well until she had n eutropenic fevers on day 15 of cycle 2B. She was admitted locally and treated with broad spe ctrum therapy and vancomycin for the fevers. No report of any positive cultures from OSH. Pt was transferred to [facility] after she suddenly went into renal failure. Current Heme issues: -Hx of Burkitt's lymphoma, currently day 35 s/p cycle 2B of Hyper CVAD (received in [place] on). -CBC shows counts stable anemia, recovering thrombocytopenia -No transfusion support required today. Hospitalization Heme issues: -12/04/11 Mammogram completed to f/u L breast soft tissue nodules seen on 11/14/11 CT scan. Sh owed 2 nodules in the L breast that had benign mammographic features. However assessment sta micheal that this was an incomplete study needing additional imaging/comparison. Received image s from OSH for comparison; nodules stable from 2001. Repeat screening mammogram in 12/14. Chemotherapy regimen: None during this admission. Growth factor: no indication for use at this time. Labs: Continue to check CBC daily Transfusion parameters: Transfuse PRBCs for HCT <24% Transfuse PPH for platelet count <10,000 sooner PRN s/s bleeding. Cardiovascular: Current cardiovascular issues: -Remains intermittently hypertensive, tachycardic with hx of HTN. Continues Norvasc 5mg dale ly, added metoprolol 25 mg po BID for added rate control 02/16/12. Monitor for effect Hospitalization CV issues: -Hx of HTN, was on lisinopril. D/c'd lisinopril d/t KIERA. Pulmonary: Current pulmonary issues: -Currently on room air, improved from 6L on admission. -treated for presumed bacterial pneumonia, will stop cefepime today, has received 10 day co urse of IV abs. Hospitalization pulmonary issues: Pulmonary team followed for multifocal PNA (bacterial vs viral), no BAL indicated at this time. Continues broad-spectrum IV abx. Completed course of oseltamivir as of 02/14/12. Imaging: -CXR for fevers 02/09/12: Progressive worsening multifocal consolidation in the perihilar an d right lower/middle lobe areas. Most characteristic for progressive multifocal bacterial PN A. DDx includes cryptogenic organizing PNA. -CT of chest for further evaluation 02/09/12: Multifocal progressive areas of consolidation, largest in R lower lobe lateral basal segment. Concurrent areas of extensive ill-defined no dularity c/w small airway filling is noted, especially in the upper lobes. These findings ar e characteristic for an evolving infectious process. Given the extensive bilaterality, stron g consideration for a viral infection such as influenza, RSV or parainfluenza should be cons idered. The difference possibly would include multifocal bacterial pneumonia, although this is less likely. There is mild hydrostatic edema. -Chest/abdominal Xray 02/10/12: Persistent appearance of multifocal consolidation in the jacinda gs, with bilateral pleural effusions. -CXR 02/13/12: Unchanged bilateral consolidative opacities indicative of pneumonia GI: Current GI issues: -No further c/o N/V over the last 24 hours. With bowel movement recorded. -continues marinol q 6 hrs Hospitalization GI issues: -Chest/abdominal Xray 02/10/12: No acute abdominal findings. Receiving: PRN antiemetics, pain control LFTs: WNL Infectious Disease: See current MAR for antimicrobials. Current issues/Bacterial: -Neutropenic fever at OSH, received vancomycin and cefepime. On admission to [facility] continue d cefepime, currently at renal dose 1g q24 hours (stop today 02/17 for total 10 day course of IV abx and vancomycin was not given here. Her vanco level has been at toxic levels of ~60 a nd down to 38.3 today. -Received levaquin per pulmonary recs, stopped on 02/13/12 per ID recs with improvement in p ulmonary status. -received oseltamivir (5 days to 02/10/12- 02/14/12) per ID recs, resp virus panel 02/10/12 ne gatal. Fungal: Prophylactic fluconazole. Viral: Prophylactic Acyclovir. PCP: Prophylactic Bactrim stopped d/t renal failure. Restart once renal function improved. Pertinent positive culture: none Pertinent negative cultures: none Fluid/Electrolyte/Nutrition: See I/O above. Current diet: low bacteria. Tolerated partial meals with 1.5L po fluid intake yesterday. En courage po intake as tolerated with goal of 2L of po fluids daily. MIVF: none at this time TPN: not required at this time Labs: Electrolytes reviewed. Potassium and phos wnl. Renal function: -Cr significantly elevated on arrival -Consulted Nephrology 02/10/12 for further worsening renal function and creatinine up to 6.9 . They feel this is ATN due to sepsis, toxic vancomycin level. Repeated urine lytes - shows FeNa 7.5%. Continue renal dosed cefepime. D/c'd all supportive care orders that are renally cleared. -Renal US done in OSH, report on chart. -Nephrology continues to follow closely --> no HD indicated at this time. -As of 02/17/12 noted for polyuria suggestive of resolving ATN Cr. Peaked at 9.37 and now tr ending down slightly today to 8.78. Other: Fluid overload. Serial images show pleural effusion, persistent edema in BLE, curren tly autodiuresing Endocrine: -Dx of DM in September 2011. CBGs WNL, no insulin indicated at this time. Sabrina Fowler PA-C [facility] [id number] [facility] Mailcode: [id number] [facility] [id number] Dylan Yusuf MD - 02/18/2012 7:07 AM PDTLeukemia/CHM Attending Progress Note I was present and rounded today with the NPP. I have independently examined and assessed th e patient. I have personally interviewed the patient, reviewed vitals, history/last 24 hour events and the labs/studies for today. I agree with the NPP's assessment and stated plan of care. See progress note documented by the NPP for details of relevant issues and care plan f or today. Primary diagnosis - acute renal failure Secondary diagnoses/comorbidities: - Burkitt Lymphoma - Pneumonia - Fluid overload - Anemia Overall Assessment/Plan: Zofia Young is a 51 y.o. female with acute renal failure, bilate ral pulmonary infiltrates Day 28 from MTX/niki-C chemotherapy for Burkitt lymphoma; getting HyperCVAD+rituximab. 1. Renal failure Probably drug-related/ATN MTX level undetectable, vanco level high Continues to urinate, creatinine has reached a plateau Urin output increasing, will monitor polyuria Followed by Nephrology, HD not indicated for now given urination and absence of electrolyte abnormalities Appreciate Nephrology input 2. Pulmonary infiltrates - pulm suspects improving bacterial PNA, continue cefipime - Viral panel sent, negative - CXR shows edema/infiltrate, 02 requirement improved - echo unremarkable, normal LV size and function 3. 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 Code status: full Total attending time 35 minutes, more than 50% in counseling and coordination of care DYLAN MARTINEZ MD [facility] [address] [facility] Mailcode: [id number] [facility] [address] [facility] DEPARTMENT: [id number]- [facility] MPV Place of Service:[id number]- Inpatient Date of Service: 02/18/2012 Suggested CPT:35153 - Subsequent, Detailed/High complex 35 min Jordan Paul PA-C - 02/17/2012 3:22 PM PDT Daily NPP Note - Chemotherapy Admit Complications [facility] Attending: Dylan Martinez MD PCP: JING Luis Date of Admission: 02/09/2012 Hematologic Malignancy: Burkitts lymphoma Reason for admission: KIERA Chemo day: 34 Subjective: Continues to have cough with "normal looking spittle", active up in room. Sist er at bedside. Happy that kidneys are producing more urine. Objective: Last Vitals: BP 142/87 | Pulse 83 | Temp 36.2 C (97.1 F) | RR 18 | Ht 162 cm (5' 3.78") | Wt 94.303 kg (207 lb 14.4 oz) | SpO2 97% | BMI 35.93 kg/(m^2) 24 Hour Vital Min/Max: Systolic (24hrs), Av mmHg, Min:128 mmHg, Max:153 mmHg Diastolic (24hrs), Av mmHg, Min:85 mmHg, Max:97 mmHg Pulse Min: 83 Max: 98 Temp Min: 36.2 C (97.1 F) Max: 36.6 C (97.8 F) Resp Min: 16 Max: 18 SpO2 Min: 94 % Max: 99 % Intake/Output Summary (Last 24 hours) at 02/17/12 1522 Last data filed at 02/17/12 1400 Gross per 24 hour Intake 1775 ml Output 2675 ml Net -900 ml Physical Exam: General: This is a female in no acute distress, sitting up in chair HEENT: Sclerae anicteric. Mucosa pink and moist without erythema or exudate. Skin: no new lesions visualized Chest: Clear to ausculation bilaterally. Normal effort. CV: RRR, no murmurs. Abdomen: Soft, distended, NT, NABS. Previous surgical sites c/d/i with no surrounding eryth ludwig. Extremities: Pulses strong and equal bilaterally. No c/c. 2+ pitting pedal edema Neuro: Alert and oriented x 3. Grossly nonfocal exam. CVC: Single-lumen port-a-cath intact to L anterior chest wall without erythema, induration . Lab Results: Recent Labs Basename 02/17/12 0010 02/16/12 0008 02/15/12 0007 NA 135 135 134 K 4.4 4.5 4.6 CL 104 106 104 BICARB 21* 20* 19* BUN 47* 42* 40* CR 9.37* 9.03* 8.99* GLU 88 82 82 CA 8.2* 8.2* 8.2* AST 8* 8* 10* ALT 5* 7* 7* AP 106* 110* 112* TBILI 0.6 0.8 0.6 TP 4.7* 5.0* 4.9* ALB 2.2* 2.2* 2.1* Recent Labs Basename 02/17/12 0010 02/16/12 0008 02/15/12 0007 02/14/12 0022 02/13/12 0011 02/12/12 000 6 WBC 5.5 5.8 5.1 -- -- -- RBC 3.07* 3.13* 3.24* -- -- -- HB 9.5* 9.8* 10.1* -- -- -- HCT 27.5* 28.5* 29.0* -- -- -- PLT 151 137* 122* -- -- -- NEUTROPERC 51 64 49* -- -- -- BANDPCT -- -- -- 2 2 10 LYMPHPERC 18 11* 17* -- -- -- MONOPERC 30* 24* 33* -- -- -- BASOPERC 0 0 0 -- -- -- EOSPERC 0* 1 0* -- -- -- Meds: Reviewed on rounds, see current MAR for medication list Assessment: Hematology: History: Ms. Young was in her usual good [...] hypertension. She continued to have nausea with emesis, abd pain prompting a return v isit to her PCP office on 09/30/2011. An abdominal ultrasound on 10/01/2011 that showed multi ple fluid filled structures with some internal echoes that were adjacent to the pancreas. Ynes ortiz was also noted to have a fatty liver. She had a follow-up abdomen/pelvic CT scan on that showed numerous masses in the retroperitoneum. The largest of the masses measured 1 0 cm. She was seen by Dr. Jonathan Arnada, Surgery, for further evaluation of her mass. She preferre d the procedure be done at [facility] and she was referred to Dr. Silvio Rm. She was seen on 10/02 for her initial evaluation and then she underwent a laparoscopic exploration of her a bdomen on 11/10/2010 with bx of the mass. There was diffuse peritoneal studding seen as well as low volume ascites. She had a normal appearing gall bladder. Biopsies of her right upper quadrant abdominal wall nodules were obtained. Her ascites was drained and sent for cytolog y. She was discharged from the hospital the following day and a referral was made to the hem atology clinic Her preliminary lymph node biopsy returned as likely Burkitt's lymphoma and she was called to come to the clinic earlier then initially scheduled. She admitted to [facility], fatigue and unintentional weight loss of 40# over the 2 months prior to her dx. Patient was admitted from clinic for treatment of her lymphoma. She was treated with cycle 1A and given 1B prior to dc. LPs done at [facility] showed no evidence of disease. Then she receiv ed care closer to her home in [place]. She recevied 2A and 2B and did well until she had n eutropenic fevers on day 15 of cycle 2B. She was admitted locally and treated with broad spe ctrum therapy and vancomycin for the fevers. No report of any positive cultures from OSH. Pt was transferred to [facility] after she suddenly went into renal failure. Current Heme issues: -Hx of Burkitt's lymphoma, currently day 34 s/p cycle 2B of Hyper CVAD (received in [place] -CBC shows counts stable anemia, recovering thrombocytopenia -No transfusion support required today. Hospitalization Heme issues: -12/04/11 Mammogram completed to f/u L breast soft tissue nodules seen on 11/14/11 CT scan. Sh owed 2 nodules in the L breast that had benign mammographic features. However assessment sta micheal that this was an incomplete study needing additional imaging/comparison. Received image s from OSH for comparison; nodules stable from 2001. Repeat screening mammogram in 12/14. Chemotherapy regimen: None during this admission. Growth factor: no indication for use at this time. Labs: Continue to check CBC daily Transfusion parameters: Transfuse PRBCs for HCT <24% Transfuse PPH for platelet count <10,000 sooner PRN s/s bleeding. Cardiovascular: Current cardiovascular issues: -Remains intermittently hypertensive, tachycardic with hx of HTN. Continues Norvasc 5mg dale ly, added metoprolol 25 mg po BID for added rate control 02/16/12. Monitor for effect Hospitalization CV issues: -Hx of HTN, was on lisinopril. D/c'd lisinopril d/t KIERA. Pulmonary: Current pulmonary issues: -Requiring ~2L/NC intermittently (continues to improve from 6L on admission) for pneumonia with some component of volume overload although fluid balance this admission -3L. -continues treatment for presumed bacterial pneumonia Hospitalization pulmonary issues: Pulmonary team followed for multifocal PNA (bacterial vs viral), no BAL indicated at this time. Continues broad-spectrum IV abx. Completed course of oseltamivir as of 02/14/12. Imaging: -CXR for fevers 02/09/12: Progressive worsening multifocal consolidation in the perihilar an d right lower/middle lobe areas. Most characteristic for progressive multifocal bacterial PN A. DDx includes cryptogenic organizing PNA. -CT of chest for further evaluation 02/09/12: Multifocal progressive areas of consolidation, largest in R lower lobe lateral basal segment. Concurrent areas of extensive ill-defined no dularity c/w small airway filling is noted, especially in the upper lobes. These findings ar e characteristic for an evolving infectious process. Given the extensive bilaterality, stron g consideration for a viral infection such as influenza, RSV or parainfluenza should be cons idered. The difference possibly would include multifocal bacterial pneumonia, although this is less likely. There is mild hydrostatic edema. -Chest/abdominal Xray 02/10/12: Persistent appearance of multifocal consolidation in the jacinda gs, with bilateral pleural effusions. -CXR 02/13/12: Unchanged bilateral consolidative opacities indicative of pneumonia GI: Current GI issues: -No further c/o N/V over the last 24 hours. With bowel movement recorded. -continues marinol q 6 hrs Hospitalization GI issues: -Chest/abdominal Xray 02/10/12: No acute abdominal findings. Receiving: PRN antiemetics, pain control LFTs: WNL Infectious Disease: See current MAR for antimicrobials. Current issues/Bacterial: -Neutropenic fever at OSH, received vancomycin and cefepime. On admission to [facility] continue d cefepime, currently at renal dose 1g q24 hours and vancomycin was not given. Her level has been at toxic levels of ~60 and down to 39.1 today. -Received levaquin per pulmonary recs, stopped on 02/13/12 per ID recs with improvement in p ulmonary status. -received oseltamivir (5 days to 02/10/12- 02/14/12) per ID recs, resp virus panel 02/10/12 rolo abraham. -Plan to continue Cefepime through 02/19/12 to complete full 10 day course Fungal: Prophylactic fluconazole. Viral: Prophylactic Acyclovir. PCP: Prophylactic Bactrim stopped d/t renal failure. Restart once renal function improved. Pertinent positive culture: none Pertinent negative cultures: none Fluid/Electrolyte/Nutrition: See I/O above. Current diet: low bacteria. Tolerated partial meals with 1.5L po fluid intake yesterday. En courage po intake as tolerated with goal of 2L of po fluids daily. MIVF: none at this time TPN: not required at this time Labs: Electrolytes reviewed. Potassium and phos wnl. Renal function: -Cr significantly elevated on arrival -Consulted Nephrology 02/10/12 for further worsening renal function and creatinine up to 6.9 . They feel this is ATN due to sepsis, toxic vancomycin level. Repeated urine lytes - shows FeNa 7.5%. Continue renal dosed cefepime. D/c'd all supportive care orders that are renally cleared. -Renal US done in OSH, report on chart. -Nephrology continues to follow closely --> no HD indicated at this time. -As of 02/17/12 noted for polyuria suggestive of resolving ATN despite mild increase in Cr. Per renal, feel that Cr will start to improve in few days Other: Fluid overload. Serial images show pleural effusion, persistent edema in BLE, curren tly autodiuresing Endocrine: -Dx of DM in September 2011. CBGs WNL, no insulin indicated at this time. JORDAN SALINAS PA-C [facility] [id number] [facility] Mailcode: [id number] [facility] [id number] Dylan Yusuf MD - 02/17/2012 7:05 AM PDTLeukemia/CHM Attending Progress Note I was present and rounded today with the NPP. I have independently examined and assessed th e patient. I have personally interviewed the patient, reviewed vitals, history/last 24 hour events and the labs/studies for today. I agree with the NPP's assessment and stated plan of care. See progress note documented by the NPP for details of relevant issues and care plan f or today. Primary diagnosis - acute renal failure Secondary diagnoses/comorbidities: - Burkitt Lymphoma - Pneumonia - Fluid overload - Anemia Overall Assessment/Plan: Zofia Young is a 51 y.o. female with acute renal failure, bilate ral pulmonary infiltrates Day 28 from MTX/niki-C chemotherapy for Burkitt lymphoma; getting HyperCVAD+rituximab. 1. Renal failure Probably drug-related/ATN MTX level undetectable, vanco level high Continues to urinate, creatinine continues to oncrease Followed by Nephrology, HD not indicated for now given urination and absence of electrolyte abnormalities Appreciate Nephrology input 2. Pulmonary infiltrates - pulm suspects improving bacterial PNA, continue cefipime - Viral panel sent, negative - CXR shows edema/infiltrate, 02 requirement improved - echo unremarkable, normal LV size and function 3. 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 Code status: full Total attending time 35 minutes, more than 50% in counseling and coordination of care DYLAN MARTINEZ MD [facility] [id number] [facility] Mailcode: [id number] [facility] [place] [address] [facility] DEPARTMENT: [id number]- [facility] [place] Place of Service:- Inpatient Date of Service: 02/17/2012 Suggested CPT:95786 - Subsequent, Detailed/High complex 35 min Adriano Tello MD - 02/16/2012 9:05 AM MCKENZIE performed a history and physical examination of the patient and discussed her management with the resident. I reviewed the resident s note and agree with the documented findings and plan of care. Pt is a 51 y/o with KIERA in setting of Burkitt 's lymphoma treatment. Pt appears to be stable and will likely recovery soon. Will cont to f ollow. No acute indication for HD. MD ADRIANO Sellers MD [facility] [address] [facility] Mailcode: Kpv14 [place] [facility] [place] [address] [facility] DEPARTMENT: [id number]- [facility] NEPHROLOGY [facility] Place of Service: - IP CSN: [id number] Suggested Modifier: GC Resident Involved Willie LOZADA, Gautam - 02/16/2012 9:05 AM PDT NEPHROLOGY FOLLOW UP NOTE Hospital Day # 7 Author: GAUTAM PARKS MD Consulting Attending: Adriano Figueroa MD Interval Hx: - remains non-oliguric - Cr still trending up S: no complaints, feels breathing is about the same as yesterday, happy to hear no dialysis today Physical Exam: Last Vitals: BP 139/90 | Pulse 95 | Temp 36.5 C (97.7 F) | RR 16 | Ht 162 cm (5' 3.78") | Wt 95.709 kg (211 lb) | SpO2 97% | BMI 36.47 kg/(m^2) 24 Hour Vital Min/Max: Systolic (24hrs), Av mmHg, Min:137 mmHg, Max:160 mmHg Diastolic (24hrs), Av mmHg, Min:90 mmHg, Max:106 mmHg Pulse Min: 95 Max: 113 Temp Min: 36.4 C (97.5 F) Max: 36.8 C (98.3 F) Resp Min: 16 Max: 18 SpO2 Min: 93 % Max: 97 % Intake/Output Summary (Last 24 hours) at 02/16/12 0905 Last data filed at 02/16/12 0800 Gross per 24 hour Intake 2014 ml Output 2550 ml Net -535 ml Gen: no distress, A&Ox3, appropriate HEENT: Clear OP, MMM, no scleral icterus Chest: R>L Rhonchi, no rales CV: Regular rate and rhythm, no murmurs or rubs Abd: Soft, non-tender, non-distended, normal bowel sounds Extr: 2+ LE edema b/l Skin: No significant rash or ecchymoses Current Inpatient Medications: Scheduled Medications Medication Dose Route Frequency Last Rate acyclovir (aka ZOVIRAX) tablet 400 mg 400 mg Oral DAILY amLODIPine (aka NORVASC) tablet 5 mg 5 mg Oral DAILY ceFEPIme (aka MAXIPIME) IV 1 g 1 g Intravenous Q24H 1 g (02/15/12 1728) dronabinol (aka MARINOL) capsule 5 mg 5 mg Oral Q6H omeprazole (aka PRILOSEC) capsule 20 mg 20 mg Oral DAILY oxyCODONE CR (aka OXYCONTIN) tablet 20 mg 20 mg Oral Q12H PRN Medications Medication Dose Route Frequency Last Rate acetaminophen (aka TYLENOL) tablet 325-650 mg 325-650 mg Oral Q4H PRN alteplase (aka CATHFLO ACTIVASE) injection 2 mg 2 mg Intracatheter PRN aluminum-magnesium hydroxide-simethicone (aka MAALOX; MYLANTA) 200-200-20 mg/5 mL suspe nsion 30 mL 30 mL Oral Q3H PRN dextrose IV 25 mL 25 mL Intravenous PRN diphenhydrAMINE (aka BENADRYL) capsule 25 mg 25 mg Oral Q4H PRN diphenoxylate-atropine (aka LOMOTIL) 2.5-0.025 mg 1 Tab 1 Tab Oral BID PRN droperidol (aka INAPSINE) injection 0.625 mg 0.625 mg Intravenous Q2H PRN 0.625 mg ( 0835) glucagon (aka GLUCAGEN) injection 1 mg 1 mg Intramuscular PRN glucose chewable tablet 16 g 16 g Oral Q15MIN PRN heparin 10 unit/mL IV flush syringe 50 Units 50 Units Intravenous PRN 50 Units ( 0835) lactulose (aka ENULAC) liquid 20 g 30 mL Oral TID PRN lanolin-mineral oil (aka LUBRIDERM) lotion Topical Q2H PRN loperamide (aka IMODIUM) capsule 2 mg 2 mg Oral PRN LORazepam (aka ATIVAN) tablet 0.5-1 mg 0.5-1 mg Oral Q4H PRN magnesium hydroxide (aka MILK OF MAGNESIA) suspension 30 mL 30 mL Oral Q6H PRN magnesium sulfate IV 2 g 2 g Intravenous PRN 2 g (02/11/12 0400) nystatin-zinc oxide-lidocaine (aka NDX) ointment Topical Q1H PRN oxyCODONE immediate release (aka ROXICODONE) tablet 5-10 mg 5-10 mg Oral Q4H PRN polyethylene glycol (aka MIRALAX) powder 17 g 17 g Oral DAILY PRN prochlorperazine (aka COMPAZINE) tablet 5-10 mg 5-10 mg Oral Q4H PRN senna-docusate (aka SENOKOT S) 8.6-50 mg 1-2 Tab 1-2 Tab Oral Q12H PRN sodium chloride (aka OCEAN) 0.65 % nasal spray 1 [place] 1 [place] Nasal Q1H PRN temazepam (aka RESTORIL) capsule 15 mg 15 mg Oral HS PRN Continuous Medications Medication Dose Route Frequency Last Rate Data: Chemistries: Last 72 Hours (or 3 results): Recent Labs Basename 02/16/12 0008 02/15/12 0007 02/14/12 0022 NA 135 134 136 K 4.5 4.6 4.5 CL 106 104 106 BICARB 20* 19* 20* BUN 42* 40* 35* CR 9.03* 8.99* 8.45* GLU 82 82 86 CA 8.2* 8.2* 8.4* MG 1.7* 1.9 2.1 PO4 4.4 5.2* 5.0* CBC with diff last 72 hours (or 3 results) Recent Labs Basename 02/16/12 0008 02/15/12 0007 02/14/12 0022 WBC 5.8 5.1 5.1 HB 9.8* 10.1* 10.4* HCT 28.5* 29.0* 29.9* PLT 137* 122* 108* NEUTROPERC 64 49* 50 BANDPCT -- -- 2 LYMPHPERC 11* 17* 23 MONOPERC 24* 33* 25* BASOPERC 0 0 0 EOSPERC 1 0* 0* Vanc = 40.9 Assessment: Zofia Young is a 51 y.o. 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 The etiology of her KIERA is most likely ATN, likely due to sepsis. Cr continues to trend up but rate has slowed and maybe plateau'd, clearance remains adequate and phosphorus and vanc levels starting to go down which is a good sign. Will cont inue to take it day by day but no indication for dialysis today, hopeful tomorrow Cr will st art to trend down. Recommendations: - KIERA - no HD today, will continue to monitor for indications, improvement - BP/volume- limit ins as much as possible - MBD- ca/phos stable The patient was seen and discussed with Dr. Figueroa who agrees with the above assessment a nd plan. GAUTAM PARKS MD Internal Medicine PGY2 Pager [phone] Latosha Aguayo FNP - 02/16/2012 7:50 AM PDT Daily NPP Note - Chemotherapy Admit [facility] Attending: Dylan Martinez MD PCP: JING Luis Date of Admission: 02/09/2012 Hematologic Malignancy: Burkitts lymphoma Reason for admission: KIERA Chemo day: 33 Subjective: Walking around in room, eager to walk in the hallway. Continues with intermitt ent cough productive of light yellow sputum. Denies c/o SOB. Denies other c/o this AM Objective: Last Vitals: BP 139/91 | Pulse 90 | Temp 36.3 C (97.3 F) | RR 16 | Ht 162 cm (5' 3.78") | Wt 95.709 kg (211 lb) | SpO2 98% | BMI 36.47 kg/(m^2) 24 Hour Vital Min/Max: Systolic (24hrs), Av mmHg, Min:137 mmHg, Max:160 mmHg Diastolic (24hrs), Av mmHg, Min:90 mmHg, Max:106 mmHg Pulse Min: 90 Max: 113 Temp Min: 36.3 C (97.3 F) Max: 36.8 C (98.3 F) Resp Min: 16 Max: 18 SpO2 Min: 95 % Max: 98 % Intake/Output Summary (Last 24 hours) at 02/16/12 1425 Last data filed at 02/16/12 1400 Gross per 24 hour Intake 1620 ml Output 3200 ml Net -1580 ml Physical Exam: General: This is a female in no acute distress HEENT: Sclerae anicteric. Mucosa pink and moist without erythema or exudate. Skin: 3 discrete, improving minimally erythematous, lesions on L low back near BMBX site, 1 in pubic area and 1 on R leg-all three improved with less induration. Chest: Clear to ausculation bilaterally. Normal effort. CV: RRR, no murmurs. Abdomen: Soft, distended, NT, NABS. Previous surgical sites c/d/i with no surrounding eryth ludwig. Extremities: Pulses strong and equal bilaterally. No c/c. 2+ pitting pedal edema Neuro: Alert and oriented x 3. Grossly nonfocal exam. CVC: Single-lumen port-a-cath intact to L anterior chest wall without erythema, induration . Lab Results: Recent Labs Basename 02/16/12 0008 02/15/12 0007 02/14/12 0022 NA 135 134 136 K 4.5 4.6 4.5 CL 106 104 106 BICARB 20* 19* 20* BUN 42* 40* 35* CR 9.03* 8.99* 8.45* GLU 82 82 86 CA 8.2* 8.2* 8.4* AST 8* 10* 9* ALT 7* 7* 7* AP 110* 112* 123* TBILI 0.8 0.6 0.4 TP 5.0* 4.9* 5.3* ALB 2.2* 2.1* 2.4* Recent Labs Basename 02/16/12 0008 02/15/12 0007 02/14/12 0022 02/13/12 0011 02/12/12 0006 WBC 5.8 5.1 5.1 -- -- RBC 3.13* 3.24* 3.32* -- -- HB 9.8* 10.1* 10.4* -- -- HCT 28.5* 29.0* 29.9* -- -- PLT 137* 122* 108* -- -- NEUTROPERC 64 49* 50 -- -- BANDPCT -- -- 2 2 10 LYMPHPERC 11* 17* 23 -- -- MONOPERC 24* 33* 25* -- -- BASOPERC 0 0 0 -- -- EOSPERC 1 0* 0* -- -- Meds: Reviewed on rounds, see current MAR [...] hypertension. She continued to have nausea with emesis, abd pain prompting a return v isit to her PCP office on 09/30/2011. An abdominal ultrasound on 10/01/2011 that showed multi ple fluid filled structures with some internal echoes that were adjacent to the pancreas. Ynes ortiz was also noted to have a fatty liver. She had a follow-up abdomen/pelvic CT scan on that showed numerous masses in the retroperitoneum. The largest of the masses measured 1 0 cm. She was seen by Dr. Jonathan Aranda, Surgery, for further evaluation of her mass. She preferre d the procedure be done at [facility] and she was referred to Dr. Silvio Rm. She was seen on 10/02 for her initial evaluation and then she underwent a laparoscopic exploration of her a bdomen on 11/10/2010 with bx of the mass. There was diffuse peritoneal studding seen as well as low volume ascites. She had a normal appearing gall bladder. Biopsies of her right upper quadrant abdominal wall nodules were obtained. Her ascites was drained and sent for cytolog y. She was discharged from the hospital the following day and a referral was made to the hem atology clinic Her preliminary lymph node biopsy returned as likely Burkitt's lymphoma and she was called to come to the clinic earlier then initially scheduled. She admitted to drenching night swea ts, fatigue and unintentional weight loss of 40# over the 2 months prior to her dx. Patient was admitted from clinic for treatment of her lymphoma. She was treated with cycle 1A and given 1B prior to dc. LPs done at [facility] showed no evidence of disease. Then she receiv ed care closer to her home in [place]. She recevied 2A and 2B and did well until she had n eutropenic fevers on day 15 of cycle 2B. She was admitted locally and treated with broad spe ctrum therapy and vancomycin for the fevers. No report of any positive cultures from OSH. Pt was transferred to [facility] after she suddenly went into renal failure. Current Heme issues: -Hx of Burkitt's lymphoma, currently day 33 s/p cycle 2B of Hyper CVAD (received in [place]). -CBC shows counts stable anemia, recovering thrombocytopenia -No transfusion support required today. Hospitalization Heme issues: -12/04/11 Mammogram completed to f/u L breast soft tissue nodules seen on 11/14/11 CT scan. Sh owed 2 nodules in the L breast that had benign mammographic features. However assessment sta micheal that this was an incomplete study needing additional imaging/comparison. Received image s from OSH for comparison; nodules stable from 2001. Repeat screening mammogram in 12/14. Chemotherapy regimen: None during this admission. Growth factor: no indication for use at this time. Labs: Continue to check CBC daily Transfusion parameters: Transfuse PRBCs for HCT <24% Transfuse PPH for platelet count <10,000 sooner PRN s/s bleeding. Cardiovascular: Current cardiovascular issues: -Remains intermittently hypertensive, tachycardic with hx of HTN. Continues Norvasc 5mg dale ly, add metoprolol 25 mg po BID for added rate control. Adjust meds prn. Hospitalization CV issues: -Hx of HTN, was on lisinopril. D/c'd lisinopril d/t KIERA. Pulmonary: Current pulmonary issues: -Requiring ~2L/NC intermittently (continues to improve from 6L on admission) for pneumonia with some component of volume overload although fluid balance this admission -2L. -continues treatment for presumed bacterial pneumonia Hospitalization pulmonary issues: Pulmonary team following for multifocal PNA (bacterial v s viral), no BAL indicated at this time. Continues broad-spectrum IV abx. Completed course o f oseltamivir as of 02/14/12. Imaging: -CXR for fevers 02/09/12: Progressive worsening multifocal consolidation in the perihilar an d right lower/middle lobe areas. Most characteristic for progressive multifocal bacterial PN A. DDx includes cryptogenic organizing PNA. -CT of chest for further evaluation 02/09/12: Multifocal progressive areas of consolidation, largest in R lower lobe lateral basal segment. Concurrent areas of extensive ill-defined no dularity c/w small airway filling is noted, especially in the upper lobes. These findings ar e characteristic for an evolving infectious process. Given the extensive bilaterality, stron g consideration for a viral infection such as influenza, RSV or parainfluenza should be cons idered. The difference possibly would include multifocal bacterial pneumonia, although this is less likely. There is mild hydrostatic edema. -Chest/abdominal Xray 02/10/12: Persistent appearance of multifocal consolidation in the jacinda gs, with bilateral pleural effusions. -CXR 02/13/12: Unchanged bilateral consolidative opacities indicative of pneumonia GI: Current GI issues: -No further c/o N/V over the last 24 hours. Intermittent loose stools noted. -continues marinol BID Hospitalization GI issues: -Chest/abdominal Xray 02/10/12: No acute abdominal findings. Receiving: PRN antiemetics, pain control LFTs: WNL Infectious Disease: See current MAR for antimicrobials. Current issues/Bacterial: -Neutropenic fever at OSH, received vancomycin and cefepime. On admission to [facility] continue d cefepime, currently at renal dose 1g q24 hours and vancomycin was not given. Her level has been at toxic levels of ~60 and down to 40 today. -Received levaquin per pulmonary recs, stopped on 02/13/12 per ID recs with improvement in p ulmonary status. -received oseltamivir (5 days to 02/10/12- 02/14/12) per ID recs, resp virus panel 02/10/12 ne gative. Fungal: Prophylactic fluconazole. Viral: Prophylactic Acyclovir. PCP: Prophylactic Bactrim stopped d/t renal failure. Restart once renal function improved. Pertinent positive culture: none Pertinent negative cultures: none Fluid/Electrolyte/Nutrition: See I/O above. Current diet: low bacteria. Tolerated 10-25% of meals with 1.3L po fluid intake yesterday. Encourage po intake as tolerated with goal of 2L of po fluids daily. MIVF: none at this time TPN: not required at this time Labs: Electrolytes reviewed. K+ 4.5, phos 4.4 Renal function: -Cr significantly elevated on arrival -Consulted Nephrology 02/10/12 for further worsening renal function and creatinine up to 6.9 . Non-oliguric with ~1.9L urine yesterday. They feel this is ATN due to sepsis, toxic vanco mycin level. Repeated urine lytes - shows FeNa 7.5%. Continue renal dosed cefepime. D/c'd al l supportive care orders that are renally cleared. -Renal US done in OSH, report on chart. -Nephrology continues to follow closely --> no HD indicated at this time. Other: Fluid overload. Serial images show pleural effusion, persistent edema in BLE. Endocrine: -Dx of DM in September 2011. CBGs WNL, no insulin indicated at this time. JING OBREGON [facility] [id number] [facility] Mailcode: [id number] [facility] [id number] Dylan Yusuf MD - 02/16/2012 7:04 AM PDTLeukemia/CHM Attending Progress Note I was present and rounded today with the NPP. I have independently examined and assessed th e patient. I have personally interviewed the patient, reviewed vitals, history/last 24 hour events and the labs/studies for today. I agree with the NPP's assessment and stated plan of care. See progress note documented by the NPP for details of relevant issues and care plan f or today. Primary diagnosis - acute renal failure Secondary diagnoses/comorbidities: - Burkitt Lymphoma - Pneumonia - Fluid overload - Anemia Overall Assessment/Plan: Zofia Young is a 51 y.o. female with acute renal failure, bilate ral pulmonary infiltrates Day 28 from MTX/niki-C chemotherapy for Burkitt lymphoma; getting HyperCVAD+rituximab. 1. Renal failure Probably drug-related/ATN MTX level undetectable, vanco level high Continues to urinate, creatinine continues to oncrease Followed by Nephrology, HD not indicated for now given urination and absence of electrolyte abnormalities Appreciate Nephrology input 2. Pulmonary infiltrates - pulm suspects improving bacterial PNA, continue cefipime - Viral panel sent, negative - CXR shows edema/infiltrate, 02 requirement improved - echo unremarkable, normal LV size and function 3. 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 Code status: full DYLAN MARTINEZ MD [facility] [address] [facility] Mailcode: Kpv14 [place] [facility] [place] [address] [facility] DEPARTMENT: [id number]- [facility] Place of Service:- Inpatient Date of Service: 02/16/2012 Suggested CPT:64080 - Subsequent, Detailed/High complex 35 min Jordan Paul PA-C - 02/15/2012 1:28 PM PDT Daily NPP Note - Chemotherapy Admit [facility] Attending: Dylan Martinez MD PCP: JING Luis Date of Admission: 02/09/2012 Hematologic Malignancy: Burkitts lymphoma Reason for admission: KIERA Subjective: Breathing is better, off oxygen but will wear it while up an walking around. De nies nausea currently Objective: Last Vitals: BP 150/100 | Pulse 111 | Temp 36.4 C (97.5 F) | RR 16 | Ht 162 cm (5' 3.78 ") | Wt 95.709 kg (211 lb) | SpO2 96% | BMI 36.47 kg/(m^2) 24 Hour Vital Min/Max: Systolic (24hrs), Av mmHg, Min:149 mmHg, Max:178 mmHg Diastolic (24hrs), Av mmHg, Min:99 mmHg, Max:108 mmHg Pulse Min: 74 Max: 111 Temp Min: 36.4 C (97.5 F) Max: 36.8 C (98.2 F) Resp Min: 16 Max: 18 SpO2 Min: 93 % Max: 97 % Intake/Output Summary (Last 24 hours) at 02/15/12 1328 Last data filed at 02/15/12 1222 Gross per 24 hour Intake 3175 ml Output 3050 ml Net 125 ml Physical Exam: General: This is a female in no acute distress sitting up in chair HEENT: Sclerae anicteric. Mucosa pink and moist without erythema or exudate. Skin: 3 discrete, improving minimally erythematous, lesions on L low back near BMBX site, 1 in pubic area and 1 on R leg-all three improved with less induration. Chest: Clear to ausculation bilaterally. Normal effort. CV: RRR, no murmurs. Abdomen: Soft, distended, NT, NABS. Previous surgical sites c/d/i with no surrounding eryth ludwig. Extremities: Pulses strong and equal bilaterally. No c/c. 2-3+ DEV NeuroPsych: Alert and oriented x 3. Grossly nonfocal exam. No noticeable asterixis currentl y CVC: PAC accessed. Lab Results: Recent Labs Basename 02/15/12 0007 02/14/12 0022 02/13/12 0011 NA 134 136 136 K 4.6 4.5 4.5 CL 104 106 107 BICARB 19* 20* 20* BUN 40* 35* 31* CR 8.99* 8.45* 7.54* GLU 82 86 93 CA 8.2* 8.4* 8.3* AST 10* 9* 7* ALT 7* 7* 7* AP 112* 123* 118* TBILI 0.6 0.4 0.7 TP 4.9* 5.3* 5.1* ALB 2.1* 2.4* 2.2* Recent Labs Basename 02/15/12 0007 02/14/12 0022 02/13/12 0011 02/12/12 0006 WBC 5.1 5.1 4.7 -- RBC 3.24* 3.32* 3.16* -- HB 10.1* 10.4* 9.9* -- HCT 29.0* 29.9* 28.4* -- PLT 122* 108* 91* -- NEUTROPERC 49* 50 55 -- BANDPCT -- 2 2 10 LYMPHPERC 17* 23 22 -- MONOPERC 33* 25* 19* -- BASOPERC 0 0 0 -- EOSPERC 0* 0* 0* -- Meds: Reviewed on rounds, see current MAR [...] preferre d the procedure be done at [facility] and she was referred to Dr. Silvio Rm. She was seen on 10/02 for her [...] medications Patient was admitted from clinic for treatment of her lymphoma. She was treated with cycle 1A and given 1B prior to dc. LP's done at [facility] showed no evidence of disease. Then she recei olivier care closer to her home in [place]. She recevied 2A and 2B and did well until she had neutropenic fevers on day 15 of cycle 2B. She was admitted locally and treated with broad sp ectrum therapy and vancomycin for the fevers. No report of any positive cultures from OSH. P t was transferred to [facility] after she suddenly went into renal failure. 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 -CBC shows counts recovering from recent chemo. ANC 2500 -No transfusion support required today. Hospitalization Heme issues: -12/04/11 Mammogram completed to f/u left breast soft tissue nodules seen on 11/14/11 CT scan. Shows 2 nodules in the left breast that have benign mammographic features. However assessme nt states that this was an incomplete study needing additional imaging/comparison. Request w as sent for out side studies to compare with current imaging. Needs to be followed up in fut ure OP setting or in subsequent admissions. Unclear if this has been completed. Will discuss with patient. Chemotherapy regimen: None during this admission. Growth factor: no indication for use at this time. Labs: Continue to check CBC daily Transfusion parameters: Transfuse PRBCs for HCT <24% Transfuse PPH for platelet count <10,000 sooner PRN s/s bleeding. Cardiovascular: Current cardiovascular issues: -Hypertensive overnight, likely fluid component. Continues Norvasc 5mg daily, will discuss with nephrology for better BP control in KIERA. Hospitalization CV issues: -Hx of HTN, was on lisinopril. D/c'd lisinopril d/t KIERA. Pulmonary: Current pulmonary issues: -Requiring ~2L (continues to improve from 6L on admission) nasal cannula for pneumonia as w ell as possible component of volume overload. -continues treatment for presumed bacterial pneumonia Hospitalization pulmonary issues: As above Imaging: -CXR for fevers 02/09/12: Progressive worsening multifocal consolidation in the perihilar an d right lower/middle lobe areas. Most characteristic for progressive multifocal bacterial PN A. DDx includes cryptogenic organizing PNA. -CT of chest for further evaluation 02/09/12: Multifocal progressive areas of consolidation, largest in R lower lobe lateral basal segment. Concurrent areas of extensive ill-defined no dularity c/w small airway filling is noted, especially in the upper lobes. These findings ar e characteristic for an evolving infectious process. Given the extensive bilaterality, stron g consideration for a viral infection such as influenza, RSV or parainfluenza should be cons idered. The difference possibly would include multifocal bacterial pneumonia, although this is less likely. There is mild hydrostatic edema. -Chest/abdominal Xray 02/10/12: Persistent appearance of multifocal consolidation in the jacinda gs, with bilateral pleural effusions. -pulmonary team following for multifocal PNA (bacterial vs viral), no bronch indicated at t his time. Continues broad-spectrum IV abx,has completed course of oseltamivir. GI: Current GI issues: -has had intermittent nausea/vomiting during stay. Has had more regular bowel movements lat aaliyah which is helping her feel better. -continues marinol BID Hospitalization GI issues: -Chest/abdominal Xray 02/10/12: No acute abdominal findings. Receiving: PRN antiemetics, pain control LFTs: wnl Infectious Disease: See current MAR for antimicrobials. Current issues/Bacterial: -Neutropenic fever in OSH, received vancomycin and cefepime, on admission to [facility] continued cefepime, currently at renal dose 1g q24 hours and vancomycin was not given, her level has been at toxic levels of ~60 and down to 47 today. -Received levaquin per pulmonary recs, stopped on 02/13/12 per ID recs with improvement in p ulmonary status. -received oseltamivir (5 days to 02/10/12- 02/14/12) per ID recs, resp virus panel 02/10/12 ne melindaive. Fungal: Prophylactic fluconazole. Viral: Prophylactic Acyclovir. PCP: Prophylactic Bactrim stopped d/t renal failure. Will need to be restarted when renal f unction improved. Pertinent positive culture: none Pertinent negative cultures: none Fluid/Electrolyte/Nutrition: See I/O above. Current diet: low bacteria. Tolerating 5-80% of meals and 2.4L po fluid intake yesterday. E ncourage po intake as tolerated with goal of 2L of po fluids daily. MIVF: none at this time TPN: not required at this time Labs: Electrolytes reviewed. K+ 4.6, phos mildly elevated at 5.2 Renal function: -Cr significantly elevated on arrival -Consulted Nephrology 02/10/12 for further worsening renal function and creatinine up to 6.9 . Non-oliguric with ~900 urine yesterday. They feel this is ATN due to sepsis, vancomycin i s also toxic at level of 60. Repeated urine lytes - shows FeNa 7.5%. Decrease cefepime dose to renal dose. Stop all supportive care orders that are renally cleared. -Renal US done in [facility], report on chart. -Would support decision for HD. Other: Fluid overload. Serial images show pleural effusion, persistent edema in BLE. Endocrine: -Dx of DM in September 2011, cbg's wnl, no insulin indicated at this time. JORDAN SALINAS PA-C [facility] [address] [facility] Mailcode: [id number] [facility] [place] [address] Adriano Tello M D - 02/15/2012 8:18 AM PDTI performed a history and physical examination of the patient and discussed her management with the resident. I reviewed the resident s note and agree wit h the documented findings and plan of care. Pt is a 51 y/o with non-oliguric KIERA, expect rec overy soon. UOP is encouraging. MD ADRIANO Sellers MD [facility] [id number] [facility] Mailcode: [id number] [facility] [place] [address] [facility] DEPARTMENT: [id number]- [facility] Place of Service: CSN: [id number] Suggested Modifier: GC Resident Involved Gautam Tapia MD - 02/15/2012 8:18 AM PDT NEPHROLOGY FOLLOW UP NOTE Hospital Day # 6 Author: GAUTAM PARKS MD Consulting Attending: Adriano Figueroa MD Interval Hx: - Cr still trending up - remains non-oliguric S: still very worried about dialysis, breathing remains unchanged, denies orthopnea, PND Physical Exam: Last Vitals: BP 150/99 | Pulse 101 | Temp 36.6 C (97.8 F) | RR 16 | Ht 162 cm (5' 3.78" ) | Wt 95.709 kg (211 lb) | SpO2 96% | BMI 36.47 kg/(m^2) 24 Hour Vital Min/Max: Systolic (24hrs), Av mmHg, Min:149 mmHg, Max:178 mmHg Diastolic (24hrs), Av mmHg, Min:97 mmHg, Max:108 mmHg Pulse Min: 74 Max: 106 Temp Min: 36.4 C (97.5 F) Max: 36.8 C (98.2 F) Resp Min: 16 Max: 18 SpO2 Min: 93 % Max: 99 % Intake/Output Summary (Last 24 hours) at 02/15/12 0818 Last data filed at 02/15/12 0700 Gross per 24 hour Intake 2650 ml Output 3250 ml Net -600 ml Gen: no distress, A&Ox3, appropriate HEENT: Clear OP, MMM, no scleral icterus Chest: Rhonchi have improved, no crackles CV: Regular rate and rhythm, no murmurs or rubs Abd: Soft, non-tender, non-distended, normal bowel sounds Extr: 2+ LE edema b/l Skin: No significant rash or ecchymoses Current Inpatient Medications: Scheduled Medications Medication Dose Route Frequency Last Rate acyclovir (aka ZOVIRAX) tablet 400 mg 400 mg Oral DAILY amLODIPine (aka NORVASC) tablet 5 mg 5 mg Oral DAILY ceFEPIme (aka MAXIPIME) IV 1 g 1 g Intravenous Q24H 1 g (02/14/12 1729) dronabinol (aka MARINOL) capsule 2.5 mg 2.5 mg Oral BID AC omeprazole (aka PRILOSEC) capsule 20 mg 20 mg Oral DAILY oxyCODONE CR (aka OXYCONTIN) tablet 20 mg 20 mg Oral Q12H PRN Medications Medication Dose Route Frequency Last Rate acetaminophen (aka TYLENOL) tablet 325-650 mg 325-650 mg Oral Q4H PRN albuterol (aka PROVENTIL, VENTOLIN) 90 mcg/Actuation inhaler 2 Puff 2 Puff Inhalation Q6H PRN alteplase (aka CATHFLO ACTIVASE) injection 2 mg 2 mg Intracatheter PRN aluminum-magnesium hydroxide-simethicone (aka MAALOX; MYLANTA) 200-200-20 mg/5 mL suspe nsion 30 mL 30 mL Oral Q3H PRN dextrose IV 25 mL 25 mL Intravenous PRN diphenhydrAMINE (aka BENADRYL) capsule 25 mg 25 mg Oral Q4H PRN diphenoxylate-atropine (aka LOMOTIL) 2.5-0.025 mg 1 Tab 1 Tab Oral BID PRN droperidol (aka INAPSINE) injection 0.625 mg 0.625 mg Intravenous Q2H PRN 0.625 mg ( 0451) glucagon (aka GLUCAGEN) injection 1 mg 1 mg Intramuscular PRN glucose chewable tablet 16 g 16 g Oral Q15MIN PRN heparin 10 unit/mL IV flush syringe 50 Units 50 Units Intravenous PRN 50 Units ( 0450) lactulose (aka ENULAC) liquid 20 g 30 mL Oral TID PRN lanolin-mineral oil (aka LUBRIDERM) lotion Topical Q2H PRN loperamide (aka IMODIUM) capsule 2 mg 2 mg Oral PRN LORazepam (aka ATIVAN) tablet 0.5-1 mg 0.5-1 mg Oral Q4H PRN magnesium hydroxide (aka MILK OF MAGNESIA) suspension 30 mL 30 mL Oral Q6H PRN magnesium sulfate IV 2 g 2 g Intravenous PRN 2 g (02/11/12 0400) nystatin-zinc oxide-lidocaine (aka NDX) ointment Topical Q1H PRN oxyCODONE immediate release (aka ROXICODONE) tablet 5-10 mg 5-10 mg Oral Q4H PRN polyethylene glycol (aka MIRALAX) powder 17 g 17 g Oral DAILY PRN prochlorperazine (aka COMPAZINE) tablet 5-10 mg 5-10 mg Oral Q4H PRN senna-docusate (aka SENOKOT S) 8.6-50 mg 1-2 Tab 1-2 Tab Oral Q12H PRN sodium chloride (aka OCEAN) 0.65 % nasal spray 1 [place] 1 [place] Nasal Q1H PRN temazepam (aka RESTORIL) capsule 15 mg 15 mg Oral HS PRN Continuous Medications Medication Dose Route Frequency Last Rate Data: Chemistries: Last 72 Hours (or 3 results): Recent Labs Basename 02/15/12 0007 02/14/12 0022 02/13/12 0011 NA 134 136 136 K 4.6 4.5 4.5 CL 104 106 107 BICARB 19* 20* 20* BUN 40* 35* 31* CR 8.99* 8.45* 7.54* GLU 82 86 93 CA 8.2* 8.4* 8.3* MG 1.9 2.1 2.2 PO4 5.2* 5.0* 4.6 CBC with diff last 72 hours (or 3 results) Recent Labs Basename 02/15/12 0007 02/14/12 0022 02/13/12 0011 WBC 5.1 5.1 4.7 HB 10.1* 10.4* 9.9* HCT 29.0* 29.9* 28.4* PLT 122* 108* 91* NEUTROPERC 49* 50 55 BANDPCT -- 2 2 LYMPHPERC 17* 23 22 MONOPERC 33* 25* 19* BASOPERC 0 0 0 EOSPERC 0* 0* 0* Assessment: Zofia Young is a 51 y.o. 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 The etiology of her KIERA is most likely ATN, likely due to sepsis. Cr continues to trend up but rate has slowed and still non-oliguric. Will continue to take it day by day but no indication for dialysis today. Recommendations: - KIERA - no HD today, will continue to monitor for indications, improvement - BP/volume- limit ins as much as possible - MBD- ca/phos stable The patient was seen and discussed with Dr. Figueroa who agrees with the above assessment a nd plan. GAUTAM PARKS MD Internal Medicine PGY2 Pager [phone] Dylan Yusuf MD - 02/15/2012 6:54 AM PDTLeukemia/CHM Attending Progress Note I was present and rounded today with the NPP. I have independently examined and assessed th e patient. I have personally interviewed the patient, reviewed vitals, history/last 24 hour events and the labs/studies for today. I agree with the NPP's assessment and stated plan of care. See progress note documented by the NPP for details of relevant issues and care plan f or today. Primary diagnosis - acute renal failure Secondary diagnoses/comorbidities: - Burkitt Lymphoma - Pneumonia - Fluid overload - Anemia Overall Assessment/Plan: Zofia Young is a 51 y.o. female with acute renal failure, bilate ral pulmonary infiltrates Day 28 from MTX/niki-C chemotherapy for Burkitt lymphoma; getting HyperCVAD+rituximab. 1. Renal failure Probably drug-related/ATN Fena 7.5%, told muddy casts per renal MTX level undetectable, vanco level high Continues to urinate Followed by Nephrology, HD not indicated for now 2. Pulmonary infiltrates - pulm suspects improving bacterial PNA, continue cefipime - Viral panel sent, negative - CXR shows edema/infiltrate, 02 requirement improved - echo unremarkable, normal LV size and function 3. 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 Code status: full DYLAN MARTINEZ MD [facility] KPV [id number] [facility] Mailcode: [id number] [facility] [address] [facility] DEPARTMENT: [id number]- [facility] M[facility] Place of Service:- Inpatient Date of Service: 02/15/2012 Suggested CPT:53724 - Subsequent, Detailed/High complex 35 min urLori pride S - 02/14/2012 3:02 PM PDT . Daily NPP Note - Chemotherapy Admit [facility] Attending: Andrew Last MD PCP: JING Luis Date of Admission: 02/09/2012 Hematologic Malignancy: Burkitts lymphoma Reason for admission: KIERA Subjective: Has loose chest congestion. Is afraid thinking about having dialysis and and reeves ving line placed due to previous experience with port placement being very painful. Objective: Last Vitals: BP 151/97 | Pulse 89 | Temp 36.4 C (97.5 F) | RR 18 | Ht 162 cm (5' 3.78") | Wt 96.798 kg (213 lb 6.4 oz) | SpO2 99% | BMI 36.88 kg/(m^2) 24 Hour Vital Min/Max: Systolic (24hrs), Av mmHg, Min:149 mmHg, Max:160 mmHg Diastolic (24hrs), Av mmHg, Min:90 mmHg, Max:107 mmHg Pulse Min: 89 Max: 102 Temp Min: 36.2 C (97.1 F) Max: 36.4 C (97.6 F) Resp Min: 18 Max: 18 SpO2 Min: 96 % Max: 99 % Intake/Output Summary (Last 24 hours) at 02/14/12 1502 Last data filed at 02/14/12 1400 Gross per 24 hour Intake 1376 ml Output 1600 ml Net -224 ml Physical Exam: General: This is a female in no acute distress standing in room. HEENT: Sclerae anicteric. Mucosa pink and moist without erythema or exudate. Skin: 3 discrete, improving minimally erythematous, lesions on L low back near BMBX site, 1 in pubic area and 1 on R leg-all three improved with less induration. Chest: Clear to ausculation bilaterally. Normal effort. CV: RRR, no murmurs. Abdomen: Soft, distended, NT, NABS. Previous surgical sites c/d/i with no surrounding eryth ludwig. Extremities: Pulses strong and equal bilaterally. No c/c. 2-3+ DEV NeuroPsych: Alert and oriented x 3. Grossly nonfocal exam. CVC: PAC accessed. Lab Results: Recent Labs Basename 02/14/12 0022 02/13/12 0011 02/12/12 0006 NA 136 136 135 K 4.5 4.5 4.5 CL 106 107 105 BICARB 20* 20* 21* BUN 35* 31* 28* CR 8.45* 7.54* 6.99* GLU 86 93 112* CA 8.4* 8.3* 8.0* AST 9* 7* 9* ALT 7* 7* 8* AP 123* 118* 120* TBILI 0.4 0.7 0.6 TP 5.3* 5.1* 4.9* ALB 2.4* 2.2* 2.2* Recent Labs Basename 02/14/12 0022 02/13/12 0011 02/12/12 0006 WBC 5.1 4.7 4.1* RBC 3.32* 3.16* 3.05* HB 10.4* 9.9* 9.6* HCT 29.9* 28.4* 27.7* PLT 108* 91* 72* NEUTROPERC 50 55 55 BANDPCT 2 2 10 LYMPHPERC 23 22 13* MONOPERC 25* 19* 22* BASOPERC 0 0 0 EOSPERC 0* 0* [...] preferre d the procedure be done at [facility] and she was referred to Dr. Silvio Rm. She was seen on 10/02 for her [...] medications Patient was admitted from clinic for treatment of her lymphoma. She was treated with cycle 1A and given 1B prior to dc. LP's done at [facility] showed no evidence of disease. Then she recei olivier care closer to her home in [place]. She recevied 2A and 2B and did well until she had neutropenic fevers on day 15 of cycle 2B. She was admitted locally and treated with broad sp ectrum therapy and vancomycin for the fevers. No report of any positive cultures from OSH. P t was transferred to [facility] after she suddenly went into renal failure. 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 -CBC shows counts recovering from recent chemo. ANC 2600. -No transfusion support required today. Hospitalization Heme issues: -12/04/11 Mammogram completed to f/u left breast soft tissue nodules seen on 11/14/11 CT scan. Shows 2 nodules in the left breast that have benign mammographic features. However assessme nt states that this was an incomplete study needing additional imaging/comparison. Request w as sent for out side studies to compare with current imaging. Needs to be followed up in fut ure OP setting or in subsequent admissions. Unclear if this has been completed. Will discuss with patient. Chemotherapy regimen: None during this admission. Growth factor: no indication for use at this time. Labs: Continue to check CBC daily Transfusion parameters: Transfuse PRBCs for HCT <24% Transfuse PPH for platelet count <10,000 sooner PRN s/s bleeding. Cardiovascular: Current cardiovascular issues: -No acute issues. HR and BP wnl. Hospitalization CV issues: -Hx of HTN, was on lisinopril. D/c'd lisinopril d/t KIERA. Pulmonary: Current pulmonary issues: -Requiring 3-4L (improved from 6L on admission) nasal cannula for pneumonia as well as poss ible component of volume overload. -pulmonary team following for multifocal PNA (bacterial vs viral), no bronch indicated at t his time. Continues broad-spectrum IV abx,has completed course of oseltamivir. Hospitalization pulmonary issues: As above Imaging: -CXR for fevers 02/09/12: Progressive worsening multifocal consolidation in the perihilar an d right lower/middle lobe areas. Most characteristic for progressive multifocal bacterial PN A. DDx includes cryptogenic organizing PNA. -CT of chest for further evaluation 02/09/12: Multifocal progressive areas of consolidation, largest in R lower lobe lateral basal segment. Concurrent areas of extensive ill-defined no dularity c/w small airway filling is noted, especially in the upper lobes. These findings ar e characteristic for an evolving infectious process. Given the extensive bilaterality, stron g consideration for a viral infection such as influenza, RSV or parainfluenza should be cons idered. The difference possibly would include multifocal bacterial pneumonia, although this is less likely. There is mild hydrostatic edema. -Chest/abdominal Xray 02/10/12: Persistent appearance of multifocal consolidation in the jacinda gs, with bilateral pleural effusions. GI: Current GI issues: -has had intermittent nausea/vomiting during stay. Has had more regular bowel movements lat aaliyah which is helping her feel better. -Chest/abdominal Xray 02/10/12: No acute abdominal findings. Hospitalization GI issues: -As above. Receiving: PRN antiemetics, pain control LFTs: wnl Infectious Disease: See current DEC for antimicrobials. Current issues/Bacterial: -Neutropenic fever in OSH, received vancomycin and cefepime, on admission to [facility] continued cefepime, currently at renal dose 1g q24 hours and vancomycin was not given, her level has been at toxic levels of ~60 and down to 50 today. -Received levaquin per pulmonary recs, stopped on 02/12 per ID recs with improvement in pulm onary status. -received oseltamivir (5 days to today 02/13) per ID recs, resp virus panel 02/09 negative. Fungal: Prophylactic fluconazole. Viral: Prophylactic Acyclovir. PCP: Prophylactic Bactrim stopped d/t renal failure. Will need to be restarted when renal f unction improved. Pertinent positive culture: none Pertinent negative cultures: none Fluid/Electrolyte/Nutrition: See I/O above. Current diet: low bacteria. Tolerating 100% of meals and 2L po fluid intake yesterday. Enco urage po intake as tolerated with goal of 2L of po fluids daily. MIVF: none at this time TPN: not required at this time Labs: Electrolytes reviewed. K+ stable 4.5, Mag, phos mildly elevated at 5.0 Renal function: -Cr significantly elevated on arrival -Consulted Nephrology 02/10/12 for further worsening renal function and creatinine up to 6.9 today. Non-oliguric with 600cc urine yesterday. They feel this is ATN due to sepsis, vancom ycin is also toxic at level of 60. Repeated urine lytes - shows FeNa 7.5%. Decrease cefepime dose to renal dose. Stop all supportive care orders that are renally cleared. -Renal US done in [facility], report on chart. -Would support decision for HD. Other: Fluid overload. Serial images show pleural effusion, persistent edema in BLE. Endocrine: -Dx of DM in September 2011, cbg's wnl, no insulin indicated at this time. Sabrina Fowler PA-C [facility] [address] [facility] Mailcode: [id number] [place] [address] Hong Rodriguez MD - 02/14/2012 1:01 PM PDTCenter for Hematologic Malignancies Daily Progress Note I was present and rounded today with the NPP. I have independently examined and assessed th e patient. I have personally interviewed the patient, reviewed vitals, history/last 24 hour events and the labs/studies for today. I agree with the NPP's assessment and stated plan of care. See progress note documented by the NPP for details of relevant issues and care plan f or today. Pt Identification: Zofia Young is a 51 y.o. female with Burkitt lymphoma, transferred for management of renal failure and pulmonary infiltrates Therapy: D31 MTX/Niki-C (regimen 2B HyperCVAD) given @ outside hospital Interval History: Vanco level still high Cr continues to rise 1500 CC Uop! Requiring O2 still. 02/12 CXR stable. PE: BP 151/97 | Pulse 89 | Temp 36.4 C (97.5 F) | RR 18 | Ht 162 cm (5' 3.78") | Wt 96.798 kg (213 lb 6.4 oz) | SpO2 99% | BMI 36.88 kg/(m^2) See NPP note for detailed exam Pertinent findings include lung rales, rhonchi, and better wheezing Labs: reviewed in EPIC 02/08 CT chest noncontrast IMPRESSION: Multifocal progressive areas of consolidation as above, largest in the right lo wer lobe lateral basal segment. Concurrent areas of extensive ill-defined nodularity consist ent with small airway filling is noted, especially in the upper lobes. These findings are ch aracteristic for an evolving infectious process. Given the extensive bilaterality, strong co nsideration for a viral infection such as influenza, RSV or parainfluenza should be consider ed. The difference possibly would include multifocal bacterial pneumonia, although this is l ess likely. There is mild hydrostatic edema. 02/12 CXR unchanged Assessment: Zofia Young is a 51 y.o. female with renal failure, bilateral pulmonary infil trates Day 27 from MTX/niki-C chemotherapy for Burkitt lymphoma; getting HyperCVAD+rituximab . 1. Renal failure Probably drug-related/ATN Fena 7.5%, told muddy casts per renal MTX level undetectable, vanco level high Aguilar in place Keep euvolemic Renal ongoing evaluation- may need HD- i recommended in no uncertain terms that if nephrolo gy recommends HD she pursue it, due to risk of ongoing renal failure/lyte imbalances/fluid i mbalance. If vanco is dialyzed, and is suspected as a culprit for ongoing toxicity, [facility]. 2. Pulmonary infiltrates - pulm suspects improving bacterial PNA, continue cefipime - Viral panel sent, negative - CXR shows edema/infiltrate, o2 requirement less - echo unremarkable, normal LV size and function - repeat CXR today 3. Burkitt lymphoma - no palpable mass, assume responding as vast majority will - high risk for relapse but current issues trump continued therapy HONG LAST MD 02/14/2012 [facility] DEPARTMENT: [id number]- [facility] Place of Service:- Inpatient Suggested CPT:53323 - Subsequent, Detailed/High complex 35 min Adriano Tello MD - 02/14/2012 12:35 PM PDT Nephrology Progress note Interval events: pt appears the same as yest Medications: acetaminophen (aka TYLENOL) tablet 325-650 mg, 325-650 mg, Oral, Q4H PRN acyclovir (aka ZOVIRAX) tablet 400 mg, 400 mg, Oral, DAILY albuterol (aka PROVENTIL, VENTOLIN) 90 mcg/Actuation inhaler 2 Puff, 2 Puff, Inhalation, Q6 H PRN alteplase (aka CATHFLO ACTIVASE) injection 2 mg, 2 mg, Intracatheter, PRN aluminum-magnesium hydroxide-simethicone (aka MAALOX; MYLANTA) 200-200-20 mg/5 mL suspensio n 30 mL, 30 mL, Oral, Q3H PRN ceFEPIme (aka MAXIPIME) IV 1 g, 1 g, Intravenous, Q24H dextrose IV 25 mL, 25 mL, Intravenous, PRN diphenhydrAMINE (aka BENADRYL) capsule 25 mg, 25 mg, Oral, Q4H PRN diphenoxylate-atropine (aka LOMOTIL) 2.5-0.025 mg 1 Tab, 1 Tab, Oral, BID PRN dronabinol (aka MARINOL) capsule 2.5 mg, 2.5 mg, Oral, BID AC droperidol (aka INAPSINE) injection 0.625 mg, 0.625 mg, Intravenous, Q2H PRN fluconazole (aka DIFLUCAN) tablet 200 mg, 200 mg, Oral, DAILY glucagon (aka GLUCAGEN) injection 1 mg, 1 mg, Intramuscular, PRN glucose chewable tablet 16 g, 16 g, Oral, Q15MIN PRN heparin 10 unit/mL IV flush syringe 50 Units, 50 Units, Intravenous, PRN lactulose (aka ENULAC) liquid 20 g, 30 mL, Oral, TID PRN lanolin-mineral oil (aka LUBRIDERM) lotion, , Topical, Q2H PRN loperamide (aka IMODIUM) capsule 2 mg, 2 mg, Oral, PRN LORazepam (aka ATIVAN) tablet 0.5-1 mg, 0.5-1 mg, Oral, Q4H PRN magnesium hydroxide (aka MILK OF MAGNESIA) suspension 30 mL, 30 mL, Oral, Q6H PRN magnesium sulfate IV 2 g, 2 g, Intravenous, PRN nystatin-zinc oxide-lidocaine (aka NDX) ointment, , Topical, Q1H PRN omeprazole (aka PRILOSEC) capsule 20 mg, 20 mg, Oral, DAILY oseltamivir (aka TAMIFLU) capsule 75 mg, 75 mg, Oral, DAILY oxyCODONE CR (aka OXYCONTIN) tablet 20 mg, 20 mg, Oral, Q12H oxyCODONE immediate release (aka ROXICODONE) tablet 5-10 mg, 5-10 mg, Oral, Q4H PRN polyethylene glycol (aka MIRALAX) powder 17 g, 17 g, Oral, DAILY PRN prochlorperazine (aka COMPAZINE) tablet 5-10 mg, 5-10 mg, Oral, Q4H PRN senna-docusate (aka SENOKOT S) 8.6-50 mg 1-2 Tab, 1-2 Tab, Oral, Q12H PRN sodium chloride (aka OCEAN) 0.65 % nasal spray 1 Hineston, 1 [place]in[place], Nasal, Q1H PRN temazepam (aka RESTORIL) capsule 15 mg, 15 mg, Oral, HS PRN PE: Last Vitals: BP 151/97 | Pulse 89 | Temp 36.4 C (97.5 F) | RR 18 | Ht 162 cm (5' 3.78") | Wt 96.798 kg (213 lb 6.4 oz) | SpO2 99% | BMI 36.88 kg/(m^2) 24 Hour Vital Min/Max: Systolic (24hrs), Av mmHg, Min:149 mmHg, Max:160 mmHg Diastolic (24hrs), Av mmHg, Min:90 mmHg, Max:107 mmHg Pulse Min: 89 Max: 102 Temp Min: 36.2 C (97.1 F) Max: 36.4 C (97.6 F) Resp Min: 18 Max: 18 SpO2 Min: 96 % Max: 99 % Intake/Output Summary (Last 24 hours) at 02/14/12 1235 Last data filed at 02/14/12 1200 Gross per 24 hour Intake 1566 ml Output 1550 ml Net 16 ml Gen: chronically ill WF NAD Heent: anicteric Chest- BCTA Cv- RRR, nl s1s2 Ab- soft, NT Ext- 3+ edema B Skin - no excoriations Neuro- no asterixis Labs reviewed and include: Lab Results Component Value Date/Time CR 8.45* 02/14/2012 12:22 AM CR 7.54* 02/13/2012 12:11 AM CR 6.99* 02/12/2012 12:06 AM CR 1.4* 11/13/2011 4:21 PM Lab Results Component Value Date/Time K 4.5 02/14/2012 12:22 AM K 4.1 11/13/2011 4:21 PM Ca 8.4 phos 5 vanc 49.6 hgb 10.4 BUN 35 A/P Pt is a 51 y.o. woman with Burkitt's lymphoma s/p cycle 2B (01/13-01/19/12) hyper-CVAD wh ich (high dose methotrexate and cytarabine) transferred to [facility] for non-oliguric renal failu re and pulmonary infection. The etiology of her KIERA is most likely ATN, -- KIERA- suspect pt will need HD soon but she appears stable again today and has no obvious uremic symptoms but the nausea may be a symptom although she tells me it predated her KIERA. W ill cont to follow for now especially given increased UOP -- BP/volume- hypervolemic, limit ins as much as possible -- MBD- ca/phos stable [facility] DEPARTMENT: [id number]- [facility] Place of Service: [id number] - CSN: [id number] Suggested Modifier: None abrina Fowler - 02/13/2012 2:14 PM PDT Daily NPP Note - Chemotherapy Admit Complications [facility] Attending: Andrew Last MD PCP: JING Luis Date of Admission: 02/09/2012 Hematologic Malignancy: Burkitts lymphoma Reason for admission: KIERA Subjective: Feeling okay, breathing is better. Is afraid thinking about having dialysis and and having line placed due to previous experience with port placement being very painful. Objective: Last Vitals: BP 145/96 | Pulse 96 | Temp 36.2 C (97.1 F) | RR 18 | Ht 162 cm (5' 3.78") | Wt 94.711 kg (208 lb 12.8 oz) | SpO2 93% | BMI 36.09 kg/(m^2) 24 Hour Vital Min/Max: Systolic (24hrs), Av mmHg, Min:133 mmHg, Max:145 mmHg Diastolic (24hrs), Av mmHg, Min:81 mmHg, Max:96 mmHg Pulse Min: 84 Max: 104 Temp Min: 36.2 C (97.1 F) Max: 36.4 C (97.6 F) Resp Min: 16 Max: 18 SpO2 Min: 93 % Max: 100 % Intake/Output Summary (Last 24 hours) at 02/13/12 1414 Last data filed at 02/13/12 1300 Gross per 24 hour Intake 2151 ml Output 1825 ml Net 326 ml Physical Exam: General: This is a [...] Normal effort. CV: RRR, no murmurs. Abdomen: Soft, distended, NT, NABS. Previous surgical sites c/d/i with no surrounding eryth ludwig. Extremities: Pulses strong and equal bilaterally. No c/c. 2-3+ DEV NeuroPsych: Alert and oriented x 3. Grossly nonfocal exam. CVC: PAC accessed. Lab Results: Recent Labs Basename 02/13/12 00102/12/12 0006 02/11/12175502/11/127 NA 136 135 -- 138 K 4.5 4.5 -- 4.1 CL 107 105 -- 109* BICARB 20* 21* -- 19* BUN 31* 28* -- 24* CR 7.54* 6.99* -- 5.90* GLU 93 112* 111* -- CA 8.3* 8.0* -- 8.2* AST 7* 9* -- 8* ALT 7* 8* -- 8* AP 118* 120* -- 144* TBILI 0.7 0.6 -- 1.0 TP 5.1* 4.9* -- 5.1* ALB 2.2* 2.2* -- 2.2* Recent Labs Basename 02/13/12 0011 02/12/12 0006 02/11/12 000 WBC 4.7 4.1* 3.5* RBC 3.16* 3.05* 2.96* HB 9.9* 9.6* 9.4* HCT 28.4* 27.7* 26.8* PLT 91* 72* 58* NEUTROPERC 55 55 52 BANDPCT 2 10 9 LYMPHPERC 22 13* 18 MONOPERC 19* 22* 20* BASOPERC 0 0 0 EOSPERC 0* 0* [...] preferre d the procedure be done at [facility] and she was referred to Dr. Silvio Rm. She was seen on 10/02 for her [...] medications Patient was admitted from clinic for treatment of her lymphoma. She was treated with cycle 1A and given 1B prior to dc. LP's done at [facility] showed no evidence of disease. Then she recei olivier care closer to her home in [place]. She recevied 2A and 2B and did well until she had neutropenic fevers on day 15 of cycle 2B. She was admitted locally and treated with broad sp ectrum therapy and vancomycin for the fevers. No report of any positive cultures from OSH. P t was transferred to [facility] after she suddenly went into renal failure. 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 -CBC shows counts recovering from recent chemo. ANC 2600. -No transfusion support required today. Hospitalization Heme issues: -12/04/11 Mammogram completed to f/u left breast soft tissue nodules seen on 11/14/11 CT scan. Shows 2 nodules in the left breast that have benign mammographic features. However assessme nt states that this was an incomplete study needing additional imaging/comparison. Request w as sent for out side studies to compare with current imaging. Needs to be followed up in fut ure OP setting or in subsequent admissions. Unclear if this has been completed. Will discuss with patient. Chemotherapy regimen: None during this admission. Growth factor: no indication for use at this time. Labs: Continue to check CBC daily Transfusion parameters: Transfuse PRBCs for HCT <24% Transfuse PPH for platelet count <10,000 sooner PRN s/s bleeding. Cardiovascular: Current cardiovascular issues: -No acute issues. HR and BP wnl. Hospitalization CV issues: -Hx of HTN, was on lisinopril. D/c'd lisinopril d/t KIERA. Pulmonary: Current pulmonary issues: -Requiring 2L (improved from 6L on admission) nasal cannula for pneumonia as well as possib le component of volume overload. -pulmonary team following for multifocal PNA (bacterial vs viral), no bronch indicated at t his time. Continues broad-spectrum IV abx as well as oseltamivir per ID recs. Hospitalization pulmonary issues: As above Imaging: -CXR for fevers 02/09/12: Progressive worsening multifocal consolidation in the perihilar an d right lower/middle lobe areas. Most characteristic for progressive multifocal bacterial PN A. DDx includes cryptogenic organizing PNA. -CT of chest for further evaluation 02/09/12: Multifocal progressive areas of consolidation, largest in R lower lobe lateral basal segment. Concurrent areas of extensive ill-defined no dularity c/w small airway filling is noted, especially in the upper lobes. These findings ar e characteristic for an evolving infectious process. Given the extensive bilaterality, stron g consideration for a viral infection such as influenza, RSV or parainfluenza should be cons idered. The difference possibly would include multifocal bacterial pneumonia, although this is less likely. There is mild hydrostatic edema. -Chest/abdominal Xray 02/10/12: Persistent appearance of multifocal consolidation in the jacinda gs, with bilateral pleural effusions. GI: Current GI issues: -has had intermittent nausea/vomiting during stay. Has had more regular bowel movements lat aaliyah which is helping her feel better. -Chest/abdominal Xray 02/10/12: No acute abdominal findings. Hospitalization GI issues: -As above. Receiving: PRN antiemetics, pain control LFTs: wnl Infectious Disease: See current MAR for antimicrobials. Current issues/Bacterial: -Neutropenic fever in OSH, received vancomycin and cefepime, on admission to [facility] continued cefepime, currently at renal dose 1g q24 hours and vancomycin was not given, her level has been at toxic levels of ~60 and down to 50 today. -Received levaquin per pulmonary recs, stopped on 02/12 per ID recs with improvement in pulm onary status. -receiving oseltamivir (5 days to stop on 02/13) per ID recs, resp virus panel 02/09 negative . Fungal: Prophylactic fluconazole. Viral: Prophylactic Acyclovir. PCP: Prophylactic Bactrim stopped d/t renal failure. Will need to be restarted when renal f unction improved. Pertinent positive culture: none Pertinent negative cultures: none Fluid/Electrolyte/Nutrition: See I/O above. Current diet: low bacteria. Tolerating 25-95% of meals x 1 and 2L po fluid intake yesterday . Encourage po intake as tolerated with goal of 2L of po fluids daily. MIVF: none at this time TPN: not required at this time Labs: Electrolytes reviewed. K+ stable 4.5, Mag, phos stable. Renal function: -Cr significantly elevated on arrival -Consulted Nephrology 02/10/12 for further worsening renal function and creatinine up to 6.9 today. Non-oliguric with 600cc urine yesterday. They feel this is ATN due to sepsis, vancom ycin is also toxic at level of 60. Repeated urine lytes - shows FeNa 7.5%. Decrease cefepime dose to renal dose. Stop all supportive care orders that are renally cleared. -Renal US done in [facility], report on chart. -Would support decision for HD. Other: Fluid overload. Serial images show pleural effusion, persistent edema in BLE. Endocrine: -Dx of DM in September 2011, cbg's wnl, no insulin indicated at this time. Sabrina Fowler PA-C [facility] [id number] [facility] Mailcode: [id number] [facility] [phone] Adriano Tello MD - 02/13/2012 1:59 PM PDT Nephrology Progress note Interval events: pt denies SOB, has chronic nausea Medications: acetaminophen (aka TYLENOL) tablet 325-650 mg, 325-650 mg, Oral, Q4H PRN acyclovir (aka ZOVIRAX) tablet 400 mg, 400 mg, Oral, DAILY albuterol (aka PROVENTIL, VENTOLIN) 90 mcg/Actuation inhaler 2 Puff, 2 Puff, Inhalation, Q6 H PRN alteplase (aka CATHFLO ACTIVASE) injection 2 mg, 2 mg, Intracatheter, PRN aluminum-magnesium hydroxide-simethicone (aka MAALOX; MYLANTA) 200-200-20 mg/5 mL suspensio n 30 mL, 30 mL, Oral, Q3H PRN ceFEPIme (aka MAXIPIME) IV 1 g, 1 g, Intravenous, Q24H dextrose IV 25 mL, 25 mL, Intravenous, PRN diphenhydrAMINE (aka BENADRYL) capsule 25 mg, 25 mg, Oral, Q4H PRN diphenoxylate-atropine (aka LOMOTIL) 2.5-0.025 mg 1 Tab, 1 Tab, Oral, BID PRN dronabinol (aka MARINOL) capsule 2.5 mg, 2.5 mg, Oral, BID AC droperidol (aka INAPSINE) injection 0.625 mg, 0.625 mg, Intravenous, Q2H PRN fluconazole (aka DIFLUCAN) tablet 200 mg, 200 mg, Oral, DAILY glucagon (aka GLUCAGEN) injection 1 mg, 1 mg, Intramuscular, PRN glucose chewable tablet 16 g, 16 g, Oral, Q15MIN PRN heparin 10 unit/mL IV flush syringe 50 Units, 50 Units, Intravenous, PRN lactulose (aka ENULAC) liquid 20 g, 30 mL, Oral, TID PRN lanolin-mineral oil (aka LUBRIDERM) lotion, , Topical, Q2H PRN loperamide (aka IMODIUM) capsule 2 mg, 2 mg, Oral, PRN LORazepam (aka ATIVAN) tablet 0.5-1 mg, 0.5-1 mg, Oral, Q4H PRN magnesium hydroxide (aka MILK OF MAGNESIA) suspension 30 mL, 30 mL, Oral, Q6H PRN magnesium sulfate IV 2 g, 2 g, Intravenous, PRN nystatin-zinc oxide-lidocaine (aka NDX) ointment, , Topical, Q1H PRN omeprazole (aka PRILOSEC) capsule 20 mg, 20 mg, Oral, DAILY oseltamivir (aka TAMIFLU) capsule 75 mg, 75 mg, Oral, DAILY oxyCODONE CR (aka OXYCONTIN) tablet 20 mg, 20 mg, Oral, Q12H oxyCODONE immediate release (aka ROXICODONE) tablet 5-10 mg, 5-10 mg, Oral, Q4H PRN polyethylene glycol (aka MIRALAX) powder 17 g, 17 g, Oral, DAILY PRN prochlorperazine (aka COMPAZINE) tablet 5-10 mg, 5-10 mg, Oral, Q4H PRN senna-docusate (aka SENOKOT S) 8.6-50 mg 1-2 Tab, 1-2 Tab, Oral, Q12H PRN sodium chloride (aka OCEAN) 0.65 % nasal spray 1 [place]in[place], 1 [place], Nasal, Q1H PRN temazepam (aka RESTORIL) capsule 15 mg, 15 mg, Oral, HS PRN PE: Last Vitals: BP 145/96 | Pulse 96 | Temp 36.2 C (97.1 F) | RR 18 | Ht 162 cm (5' 3.78") | Wt 94.711 kg (208 lb 12.8 oz) | SpO2 93% | BMI 36.09 kg/(m^2) 24 Hour Vital Min/Max: Systolic (24hrs), Av mmHg, Min:133 mmHg, Max:145 mmHg Diastolic (24hrs), Av mmHg, Min:81 mmHg, Max:96 mmHg Pulse Min: 84 Max: 104 Temp Min: 36.2 C (97.1 F) Max: 36.4 C (97.6 F) Resp Min: 16 Max: 18 SpO2 Min: 93 % Max: 100 % Intake/Output Summary (Last 24 hours) at 02/13/12 1359 Last data filed at 02/13/12 1300 Gross per 24 hour Intake 2151 ml Output 1825 ml Net 326 ml Gen: chronically ill WF NAD Heent: anicteric Chest- BCTA Cv- RRR, nl s1s2 Ab- soft, NT Ext- 3+ edema B Skin - no excoriations Labs reviewed and include: Lab Results Component Value Date/Time CR 7.54* 02/13/2012 12:11 AM CR 6.99* 02/12/2012 12:06 AM CR 5.90* 02/11/2012 12:08 AM CR 1.4* 11/13/2011 4:21 PM Lab Results Component Value Date/Time K 4.5 02/13/2012 12:11 AM K 4.1 11/13/2011 4:21 PM Ca 8.3 phos 4.6 hgb 9.9 Vanc 50 A/P Pt is a 51 y.o. woman with Burkitt's lymphoma s/p cycle 2B (01/13-01/19/12) hyper-CVAD wh ich (high dose methotrexate and cytarabine) transferred to [facility] for non-oliguric renal failu re and pulmonary infection. The etiology of her KIERA is most likely ATN, -- KIERA- suspect pt will need HD soon but she appears stable today and has no obvious uremic symptoms but the nausea may be a symptom although she tells me it predated her KIERA. Will co nt to follow for now but low UOP concerning -- BP/volume- hypervolemic, limit ins as much as possible -- MBD- ca/phos stable [facility] DEPARTMENT: [id number]- [facility] Place of Service: [id number] - CSN: [id number] Suggested Modifier: None Hong Rodriguez MD - 02/13/2012 10:04 AM [facility] Daily Progress Note I was present and rounded today with the NPP. I have independently examined and assessed th e patient. I have personally interviewed the patient, reviewed vitals, history/last 24 hour events and the labs/studies for today. I agree with the NPP's assessment and stated plan of care. See progress note documented by the NPP for details of relevant issues and care plan f or today. Pt Identification: Zofia Young is a 51 y.o. female with Burkitt lymphoma, transferred for management of renal failure and pulmonary infiltrates Therapy: D30 MTX/Niki-C (regimen 2B HyperCVAD) given @ outside hospital Interval History: resp virus panel neg Vanco level still high Cr continues to rise 700 cc UOP Requiring less O2 PE: BP 145/96 | Pulse 100 | Temp 36.2 C (97.2 F) | RR 17 | Ht 162 cm (5' 3.78") | Wt 94.711 kg (208 lb 12.8 oz) | SpO2 96% | BMI 36.09 kg/(m^2) See NPP note for detailed exam Pertinent findings include lung rales, rhonchi, and better wheezing Labs: reviewed in [facility] 4/10 CT chest noncontrast IMPRESSION: Multifocal progressive areas of consolidation as above, largest in the right lo wer lobe lateral basal segment. Concurrent areas of extensive ill-defined nodularity consist ent with small airway filling is noted, especially in the upper lobes. These findings are ch aracteristic for an evolving infectious process. Given the extensive bilaterality, strong co nsideration for a viral infection such as influenza, RSV or parainfluenza should be consider ed. The difference possibly would include multifocal bacterial pneumonia, although this is l ess likely. There is mild hydrostatic edema. CXR unchanged Assessment: Zofia Young is a 51 y.o. female with renal failure, bilateral pulmonary infil trates Day 27 from MTX/niki-C chemotherapy for Burkitt lymphoma; getting HyperCVAD+rituximab . 1. Renal failure Probably drug-related. Fena now 7.5% MTX level undetectable, vanco level high Aguilar in place Keep euvolemic Renal ongoing evaluation- may need HD- i recommended in no uncertain terms that if nephrolo gy recommends HD she pursue it, due to risk of ongoing renal failure/lyte imbalances/fluid i mbalance. If vanco isdialyzed, this might add rationale. 2. Pulmonary infiltrates - pulm suspects improving bacterial PNA, continue cefipime - Viral panel sent, negative - CXR shows edema/infiltrate, o2 requirement less - echo unremarkable, normal LV size and function - repeat CXR today 3. Burkitt lymphoma - no palpable mass, assume responding as vast majority will - high risk for relapse but current issues trump continued therapy HONG LAST MD 02/13/2012 10:06 AM [facility] DEPARTMENT: [id number]- [facility] Place of Service:- Inpatient Suggested CPT:87370 - Subsequent, Detailed/High complex 35 min Ingrid Lau - 12:58 PM PDTPatient Name: ZOFIA YOUNG Date of : 1960 CARE COORDINATION ROUNDING NOTE Care Coordination rounds held. Disciplines attending included: Health Science Specialist,, Meat And Poultry Inspector,, Bedside RN,, service provider,, Physician,, Physician's Sole Molder,, Nurse Practitioner,, Webbing Inspector,, Pharmacist, Other: Electronically signed by:Ingrid Braun Position:Health Science Specialist Pager ID:[phone] 12 12:58 PM Hong Rodriguez MD - 02/12/2012 11:25 AM [facility] Daily Progress Note I was present and rounded today with the NPP. I have independently examined and assessed th e patient. I have personally interviewed the patient, reviewed vitals, history/last 24 hour events and the labs/studies for today. I agree with the NPP's assessment and stated plan of care. See progress note documented by the NPP for details of relevant issues and care plan f or today. Pt Identification: Zofia Young is a 51 y.o. female with Burkitt lymphoma, transferred for management of renal failure and pulmonary infiltrates Therapy: D29 MTX/Niki-C (regimen 2B HyperCVAD) given @ outside hospital Interval History: No new complaints, almost 1 l PO intake but 600 cc UOP only Cr continues to rise PE: BP 125/74 | Pulse 90 | Temp 36.4 C (97.6 F) | RR 18 | Ht 162 cm (5' 3.78") | Wt 96.616 kg (213 lb) | SpO2 96% | BMI 36.81 kg/(m^2) See NPP note for detailed exam Pertinent findings include lung rales, rhonchi, and prolonged expiratory wheezes Labs: reviewed in [facility] 02/08 CT chest noncontrast IMPRESSION: Multifocal progressive areas of consolidation as above, largest in the right lo wer lobe lateral basal segment. Concurrent areas of extensive ill-defined nodularity consist ent with small airway filling is noted, especially in the upper lobes. These findings are ch aracteristic for an evolving infectious process. Given the extensive bilaterality, strong co nsideration for a viral infection such as influenza, RSV or parainfluenza should be consider ed. The difference possibly would include multifocal bacterial pneumonia, although this is l ess likely. There is mild hydrostatic edema. CXR unchanged Assessment: Zofia Young is a 51 y.o. female with renal failure, bilateral pulmonary infil trates Day 27 from MTX/niki-C chemotherapy for Burkitt lymphoma; getting HyperCVAD+rituximab . 1. Renal failure Probably drug-related. HIgher again On admit Na 2.5%, and no casts on my calculation-- ATN may be less likely MTX level undetectable, vanco level high Aguilar in place Keep euvolemic Renal ongoing evaluation 2. Pulmonary infiltrates - Viral panel sent today, in isolation - Infectious vs volume overload - CXR shows edema/infiltrate - echo unremarkable, normal LV size and function - ID/ pulmonary consultation for ?bronch- pending viral studies 3. Burkitt lymphoma - no palpable mass, assume responding as vast majority will - high risk for relapse but current issues trump continued therapy HONG LAST MD 02/12/2012 11:25 AM [facility] DEPARTMENT: [id number]- [facility] Place of Service:- Inpatient Suggested CPT:52231 - Subsequent, Detailed/High complex 35 min abrina Fowler - 02/12/2012 10:28 AM PDT Daily NPP Note - Chemotherapy Admit Complications [facility] Attending: Andrew Last MD PCP: JING Luis Date of Admission: 02/09/2012 Hematologic Malignancy: Burkitts lymphoma Reason for admission: KIERA Subjective: Feeling better overall. Breathing feels better and less pain in chest today. Co ughing up more phlegm. Concerned about kidneys and wondering what she can do to help. Objective: Last Vitals: BP 125/74 | Pulse 90 | Temp 36.4 C (97.6 F) | RR 18 | Ht 162 cm (5' 3.78") | Wt 96.616 kg (213 lb) | SpO2 96% | BMI 36.81 kg/(m^2) 24 Hour Vital Min/Max: Systolic (24hrs), Av mmHg, Min:121 mmHg, Max:152 mmHg Diastolic (24hrs), Av mmHg, Min:74 mmHg, Max:93 mmHg Pulse Min: 90 Max: 102 Temp Min: 36.2 C (97.1 F) Max: 36.8 C (98.3 F) Resp Min: 18 Max: 18 SpO2 Min: 92 % Max: 98 % Intake/Output Summary (Last 24 hours) at 02/12/12 1028 Last data filed at 02/12/12 0900 Gross per 24 hour Intake 1370 ml Output 1125 ml Net 245 ml Physical Exam: General: This is a female in no acute distress sitting up at the edge of th e bed. HEENT: Sclerae anicteric. Mucosa pink and moist without erythema or exudate. Skin: 3 discrete, improving minimally erythematous, lesions on L low back near BMBX site, 1 in pubic area and 1 on R leg-all three improved with less induration. Chest: Clear to ausculation bilaterally. Normal effort. CV: RRR, no murmurs. Abdomen: Soft, distended, NT, NABS. Previous surgical sites c/d/i with no surrounding eryth ludwig. Extremities: Pulses strong and equal bilaterally. No c/c. 2-3+ DEV NeuroPsych: Alert and oriented x 3. Grossly nonfocal exam. CVC: PAC accessed. Lab Results: Recent Labs Basename 02/12/12 0006 02/11/12 1756 02/11/12 1139 02/11/12 0008 02/10/12 1812 02/10/12 044 5 NA 135 -- -- 138 139 -- K 4.5 -- -- 4.1 4.2 -- CL 105 -- -- 109* 109* -- BICARB 21* -- -- 19* 21* -- BUN 28* -- -- 24* 23* -- CR 6.99* -- -- 5.90* 5.74* -- GLU 112* 111* 96 -- -- -- CA 8.0* -- -- 8.2* 8.3* -- AST 9* -- -- 8* -- 12* ALT 8* -- -- 8* -- 10* AP 120* -- -- 144* -- 152* TBILI 0.6 -- -- 1.0 -- 0.9 TP 4.9* -- -- 5.1* -- 5.5* ALB 2.2* -- -- 2.2* -- 2.5* Recent Labs Basename 02/12/12 0006 02/11/12 0008 02/10/12 0445 WBC 4.1* 3.5* 3.6* RBC 3.05* 2.96* 3.16* HB 9.6* 9.4* 9.8* HCT 27.7* 26.8* 28.4* PLT 72* 58* 53* NEUTROPERC 55 52 42* BANDPCT 10 9 13* LYMPHPERC 13* 18 26 MONOPERC 22* 20* 17* BASOPERC 0 0 0 EOSPERC 0* 0* [...] with emesis prompting a return visit [facility] office on 09/30/2011. She continued to [...] preferre d the procedure be done at [facility] and she was referred to Dr. Silvio Rm. She was seen on 10/02 for her [...] medications Patient was admitted from clinic for treatment of her lymphoma. She was treated with cycle 1A and given 1B prior to dc. LP's done at [facility] showed no evidence of disease. Then she recei olivier care closer to her home in [place]. She recevied 2A and 2B and did well until she had neutropenic fevers on day 15 of cycle 2B. She was admitted locally and treated with broad sp ectrum therapy and vancomycin for the fevers. No report of any positive cultures from OSH. P sandoval was transferred to [facility] after she suddenly went into renal failure. 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 -CBC shows counts recovering. ANC 2700. -No transfusion support required today. Hospitalization Heme issues: -12/04/11 Mammogram completed to f/u left breast soft tissue nodules seen on 11/14/11 CT scan. Shows 2 nodules in the left breast that have benign mammographic features. However assessme nt states that this was an incomplete study needing additional imaging/comparison. Request w as sent for out side studies to compare with current imaging. Needs to be followed up in fut ure OP setting or in subsequent admissions. Unclear if this has been completed. Will discuss with patient. Chemotherapy regimen: None during this admission. Growth factor: no indication for use at this time. Labs: Continue to check CBC daily Transfusion parameters: Transfuse PRBCs for HCT <24% Transfuse PPH for platelet count <10,000 sooner PRN s/s bleeding. Cardiovascular: Current cardiovascular issues: -No acute issues. HR and BP wnl. Hospitalization CV issues: -Hx of HTN, was on lisinopril. D/c'd lisinopril d/t KIERA. Pulmonary: Current pulmonary issues: -Requiring 3-4L nasal cannula for pneumonia as well as likely component of volume overload. -pulmonary team following for multifocal PNA (bacterial vs viral), no bronch indicated at t his time. Continues broad-spectrum IV abx as well as oseltamivir per ID recs. Hospitalization pulmonary issues: As above Imaging: -CXR for fevers 02/09/12: Progressive worsening multifocal consolidation in the perihilar an d right lower/middle lobe areas. Most characteristic for progressive multifocal bacterial PN A. DDx includes cryptogenic organizing PNA. -CT of chest for further evaluation 02/09/12: Multifocal progressive areas of consolidation, largest in R lower lobe lateral basal segment. Concurrent areas of extensive ill-defined no dularity c/w small airway filling is noted, especially in the upper lobes. These findings ar e characteristic for an evolving infectious process. Given the extensive bilaterality, stron g consideration for a viral infection such as influenza, RSV or parainfluenza should be cons idered. The difference possibly would include multifocal bacterial pneumonia, although this is less likely. There is mild hydrostatic edema. -Chest/abdominal Xray 02/10/12: Persistent appearance of multifocal consolidation in the jacinda gs, with bilateral pleural effusions. GI: Current GI issues: -Acute onset of severe N/V 02/10/12. -Chest/abdominal Xray 02/10/12: No acute abdominal findings. -N/V better with BM on 02/10, vomited again today 02/11 and again felt better after having BM . If this pattern continues will reimage abdomen again. Hospitalization GI issues: -As above. Receiving: PRN antiemetics, pain control LFTs: wnl Infectious Disease: See current MAR for antimicrobials. Current issues/Bacterial: -Neutropenic fever in OSH. D/t leukocytosis concerning infectious process, continued cefepi me at renal dose -Receiving levaquin per Pulmonary recs. Renally dosed. -receiving oseltamivir per ID recs, resp virus panel 02/09 pending. Fungal: Prophylactic fluconazole. Viral: Prophylactic Acyclovir PCP: Prophylactic Bactrim stopped d/t renal failure. Will need to be restarted when renal f unction improved. Pertinent positive culture: none Pertinent negative cultures: none Fluid/Electrolyte/Nutrition: See I/O above. Current diet: low bacteria. Tolerating 50% of meals x 1 and 1.3L po fluid intake yesterday (late afternoon admit). Encourage po intake as tolerated with goal of 2L of po fluids daily. MIVF: none at this time TPN: not required at this time Labs: Electrolytes reviewed. K+ stable 4.5, Mag, phos stable. Renal function: -Cr significantly elevated on arrival -Consulted Nephrology 02/10/12 for further worsening renal function and creatinine up to 6.9 today. Non-oliguric with 600cc urine yesterday. They feel this is ATN due to sepsis, vancom ycin is also toxic at level of 60. Repeat urine lytes today and decrease cefepime dose to re nal dose. Stop all supportive care orders that are renally cleared. -Renal US done in [facility], report on chart. Other: Fluid overload. Serial images show pleural effusion, persistent edema in BLE. Endocrine: -Dx of DM in September 2011, cbg's wnl, no insulin indicated at this time. Sabrina Fowler PA-C [facility] [id number] [facility] Mailcode: [id number] [facility] [id number] Dennys Mckeon MD - 02/12/2012 8:36 AM PDTI saw and examined this patient, discussed with Dr. Parks and darian landa with the assessment and plans as outlined. [facility] DEPARTMENT: [id number]- [facility] Place of Service: [id number] - CSN: [id number] Suggested Modifier: GC Resident Involved Gautam Tapia MD - 8:36 AM PDT NEPHROLOGY FOLLOW UP NOTE Hospital Day # 3 Author: GAUTAM PARKS MD Consulting Attending: Dennys Hagen MD Interval Hx: - remains non-oliguric, urine output yesterday 725, 250 since midnight - Cr up to 6.99 this morning - Vanc level 59.5 this morning, from 56.8 S: denies any worsening of SOB, swelling in legs. Cough is improving. She is hesitant to reeves ve dialysis, and would like to wait on getting a dialysis catheter. Physical Exam: Last Vitals: BP 125/74 | Pulse 90 | Temp 36.4 C (97.6 F) | RR 18 | Ht 162 cm (5' 3.78") | Wt 96.616 kg (213 lb) | SpO2 96% | BMI 36.81 kg/(m^2) 24 Hour Vital Min/Max: Systolic (24hrs), Av mmHg, Min:121 mmHg, Max:152 mmHg Diastolic (24hrs), Av mmHg, Min:74 mmHg, Max:93 mmHg Pulse Min: 90 Max: 102 Temp Min: 36.2 C (97.1 F) Max: 36.8 C (98.3 F) Resp Min: 18 Max: 18 SpO2 Min: 92 % Max: 98 % Intake/Output Summary (Last 24 hours) at 02/12/12 0836 Last data filed at 02/12/12 0500 Gross per 24 hour Intake 1370 ml Output 1400 ml Net -30 ml Gen: A&Ox3, NAD Chest: R>L rhonchi, no crackles appreciated CV: Regular rate and rhythm, no murmurs or rubs Abd: Soft, non-tender, non-distended, normal bowel sounds Extr: B/l trace LE edema to knees Current Inpatient Medications: Scheduled Medications Medication Dose Route Frequency Last Rate acyclovir (aka ZOVIRAX) tablet 400 mg 400 mg Oral DAILY ceFEPime (aka MAXIPIME) IV (pyxis minibag+) 2 g 2 g Intravenous Q24H 2 g (02/11/12 184 2) dronabinol (aka MARINOL) capsule 2.5 mg 2.5 mg Oral BID AC fluconazole (aka DIFLUCAN) tablet 200 mg 200 mg Oral DAILY levofloxacin (aka LEVAQUIN) tablet 250 mg 250 mg Oral Q48H omeprazole (aka PRILOSEC) capsule 20 mg 20 mg Oral DAILY oseltamivir (aka TAMIFLU) capsule 75 mg 75 mg Oral DAILY oxyCODONE CR (aka OXYCONTIN) tablet 20 mg 20 mg Oral Q12H PRN Medications Medication Dose Route Frequency Last Rate acetaminophen (aka TYLENOL) tablet 325-650 mg 325-650 mg Oral Q4H PRN albuterol (aka PROVENTIL, VENTOLIN) 90 mcg/Actuation inhaler 2 Puff 2 Puff Inhalation Q6H PRN alteplase (aka CATHFLO ACTIVASE) injection 2 mg 2 mg Intracatheter PRN aluminum-magnesium hydroxide-simethicone (aka MAALOX; MYLANTA) 200-200-20 mg/5 mL suspe nsion 30 mL 30 mL Oral Q3H PRN dextrose IV 25 mL 25 mL Intravenous PRN diphenhydrAMINE (aka BENADRYL) capsule 25 mg 25 mg Oral Q4H PRN diphenoxylate-atropine (aka LOMOTIL) 2.5-0.025 mg 1 Tab 1 Tab Oral BID PRN droperidol (aka INAPSINE) injection 0.625 mg 0.625 mg Intravenous Q2H PRN 0.625 mg (1912) glucagon (aka GLUCAGEN) injection 1 mg 1 mg Intramuscular PRN glucose chewable tablet 16 g 16 g Oral Q15MIN PRN heparin 10 unit/mL IV flush syringe 50 Units 50 Units Intravenous PRN 50 Units ( 0530) lactulose (aka ENULAC) liquid 20 g 30 mL Oral TID PRN lanolin-mineral oil (aka LUBRIDERM) lotion Topical Q2H PRN loperamide (aka IMODIUM) capsule 2 mg 2 mg Oral PRN LORazepam (aka ATIVAN) tablet 0.5-1 mg 0.5-1 mg Oral Q4H PRN magnesium hydroxide (aka MILK OF MAGNESIA) suspension 30 mL 30 mL Oral Q6H PRN magnesium sulfate IV 2 g 2 g Intravenous PRN 2 g (02/11/12 0400) morphine injection Inj 1-4 mg 1-4 mg Intravenous Q2H PRN 2 mg (02/10/121912) nystatin-zinc oxide-lidocaine (aka NDX) ointment Topical Q1H PRN oxyCODONE immediate release (aka ROXICODONE) tablet 5-10 mg 5-10 mg Oral Q4H PRN polyethylene glycol (aka MIRALAX) powder 17 g 17 g Oral DAILY PRN prochlorperazine (aka COMPAZINE) tablet 5-10 mg 5-10 mg Oral Q4H PRN senna-docusate (aka SENOKOT S) 8.6-50 mg 1-2 Tab 1-2 Tab Oral Q12H PRN sodium chloride (aka OCEAN) 0.65 % nasal spray 1 [place] 1 [place] Nasal Q1H PRN temazepam (aka RESTORIL) capsule 15 mg 15 mg Oral HS PRN Continuous Medications Medication Dose Route Frequency Last Rate Data: Chemistries: Last 72 Hours (or 3 results): Recent Labs Basename 02/12/12 0006 02/11/12 1756 02/11/12 1139 02/11/12 0008 02/10/12 1812 02/10/12 044 5 NA 135 -- -- 138 139 -- K 4.5 -- -- 4.1 4.2 -- CL 105 -- -- 109* 109* -- BICARB 21* -- -- 19* 21* -- BUN 28* -- -- 24* 23* -- CR 6.99* -- -- 5.90* 5.74* -- GLU 112* 111* 96 -- -- -- CA 8.0* -- -- 8.2* 8.3* -- MG 2.1 -- -- 1.6* -- 1.9 PO4 4.5 -- -- 4.8* -- 5.1* CBC with diff last 72 hours (or 3 results) Recent Labs Basename 02/12/12 0006 02/11/12 0008 02/10/12 0445 WBC 4.1* 3.5* 3.6* HB 9.6* 9.4* 9.8* HCT 27.7* 26.8* 28.4* PLT 72* 58* 53* NEUTROPERC 55 52 42* BANDPCT 10 9 13* LYMPHPERC 13* 18 26 MONOPERC 22* 20* 17* BASOPERC 0 0 0 EOSPERC 0* 0* 0* Vanc 59.5 Assessment: Zofia Young is a 51 y.o. 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 The etiology of her KIERA is most likely ATN, gven the rapid increase in Cr and muddy brown c asts. The cause of the ATN is likely sepsis. She remains non-oliguric and no baseline kidney disease which is a good prognostic sign for her kidneys, however her Cr trend is concerning as is her failure to clear vancomycin, which indicates her GFR is essentially zero. She is kaykay-dialysis but no acute indication at this time, so will hold off on placing line, which is also what patient requests. However if things not improving tomorrow will likely need to place line for temporary dialysis. Recommendations: - decrease cefepime dosing to 1G q24h - discontinue morphine, relatively contraindicated in renal failure - dose all meds for GFR of zero - we will continue to follow and will watch closely for HD needs The patient was seen and discussed with Dr. Hagen who agrees with the above assessment an d plan. GAUTAM PARKS MD Internal Medicine PGY2 Pager [phone] [facility] 02/11/2012 10:21 AM PDT Daily NPP Note - Chemotherapy Admit [facility] Attending: Andrew Last MD PCP: JING Luis Date of Admission: 02/09/2012 Hematologic Malignancy: Burkitts lymphoma Reason for admission: KIERA Subjective: N/V resolved. Had BM. Objective: Last Vitals: BP 132/79 | Pulse 53 | Temp 36.6 C (97.8 F) | RR 18 | Ht 162 cm (5' 3.78") | Wt 93.622 kg (206 lb 6.4 oz) | SpO2 95% | BMI 35.67 kg/(m^2) 24 Hour Vital Min/Max: Systolic (24hrs), Av mmHg, Min:117 mmHg, Max:139 mmHg Diastolic (24hrs), Av mmHg, Min:75 mmHg, Max:90 mmHg Pulse Min: 53 Max: 112 Temp Min: 36.5 C (97.7 F) Max: 36.9 C (98.5 F) Resp Min: 16 Max: 20 SpO2 Min: 95 % Max: 100 % Intake/Output Summary (Last 24 hours) at 02/11/12 1021 Last data filed at 02/11/12 0900 Gross per 24 hour Intake 1820 ml Output 2535 ml Net -715 ml Physical Exam: General: This is a [...] Pulses strong and equal bilaterally. No c/c. 2-3+ DEV NeuroPsych: Alert and oriented x 3. Grossly nonfocal exam. CVC: PAC accessed. Lab Results: Recent Labs Basename 02/11/12 0735 02/11/12 0008 02/10/12 2249 02/10/12 1812 02/10/12 0445 02/09/12 140 3 NA -- 138 -- 139 137 -- K -- 4.1 -- 4.2 4.6 -- CL -- 109* -- 109* 107 -- BICARB -- 19* -- 21* 21* -- BUN -- 24* -- 23* 18 -- CR -- 5.90* -- 5.74* 5.08* -- GLU 76 86 81 -- -- -- CA -- 8.2* -- 8.3* 8.1* -- AST -- 8* -- -- 12* 10* ALT -- 8* -- -- 10* 10* AP -- 144* -- -- 152* 97 TBILI -- 1.0 -- -- 0.9 0.6 TP -- 5.1* -- -- 5.5* 5.0* ALB -- 2.2* -- -- 2.5* 2.3* Recent Labs Basename 02/11/12 0008 02/10/12 0445 02/09/12 1403 12/03/11 0037 WBC 3.5* 3.6* 2.1* -- RBC 2.96* 3.16* 2.32* -- HB 9.4* 9.8* 7.3* -- HCT 26.8* 28.4* 20.9* -- PLT 58* 53* 39* -- NEUTROPERC 52 42* 44* -- BANDPCT 9 13* -- 25* LYMPHPERC 18 26 24 -- MONOPERC 20* 17* 32* -- BASOPERC 0 0 0 -- EOSPERC 0* 0* 0* -- Meds: Reviewed on rounds, see current MAR [...] preferre d the procedure be done at [facility] and she was referred to Dr. Silvio Rm. She was seen on 10/02 for her [...] medications Patient was admitted from clinic for treatment of her lymphoma. She was treated with cycle 1A and given 1B prior to dc. LP's done at [facility] showed no evidence of disease. Then she recei olivier care closer to her home in [place]. She recevied 2A and 2B and did well until she had neutropenic fevers on day 15 of cycle 2B. She was admitted locally and treated with broad sp ectrum therapy and vancomycin for the fevers. No report of any positive cultures from OSH. P t was transferred to [facility] after she suddenly went into renal failure. Current Heme issues: -Hx of Burkitt's lymphoma, currently s/p cycle 2B of Hyper CVAD (received in [place]). -CBC shows counts on recovery. -No transfusion support required today. Hospitalization Heme issues: -12/04/11 Mammogram completed to f/u left breast soft tissue nodules seen on 11/14/11 CT scan. Shows 2 nodules in the left breast that have benign mammographic features. However assessme nt states that this was an incomplete study needing additional imaging/comparison. Request w as sent for out side studies to compare with current imaging. Needs to be followed up in fut ure OP setting or in subsequent admissions. Unclear if this has been completed. Will discuss with patient. Chemotherapy regimen: None during this admission. Growth factor: no indication for use at this time. Labs: Continue to check CBC daily Transfusion parameters: Transfuse PRBCs for HCT <24% Transfuse PPH for platelet count <10,000 sooner PRN s/s bleeding. Cardiovascular: Current cardiovascular issues: -No acute issues. HR and BP wnl. Hospitalization CV issues: -Hx of HTN, was on lisinopril. D/c'd lisinopril d/t KIERA. Pulmonary: Current pulmonary issues: -No acute issues and sats stable on RA Hospitalization pulmonary issues: As above Imaging: -CXR for fevers 02/09/12: Progressive worsening multifocal consolidation in the perihilar an d right lower/middle lobe areas. Most characteristic for progressive multifocal bacterial PN A. DDx includes cryptogenic organizing PNA. -CT of chest for further evaluation 02/09/12: Multifocal progressive areas of consolidation, largest in R lower lobe lateral basal segment. Concurrent areas of extensive ill-defined no dularity c/w small airway filling is noted, especially in the upper lobes. These findings ar e characteristic for an evolving infectious process. Given the extensive bilaterality, stron g consideration for a viral infection such as influenza, RSV or parainfluenza should be cons idered. The difference possibly would include multifocal bacterial pneumonia, although this is less likely. There is mild hydrostatic edema. -Chest/abdominal Xray 02/10/12: Persistent appearance of multifocal consolidation in the jacinda gs, with bilateral pleural effusions. GI: Current GI issues: -Acute onset of severe N/V 02/10/12. -Chest/abdominal Xray 02/10/12: No acute abdominal findings. -N/V resolved with BM as of 02/11/12. Hospitalization GI issues: -As above. Receiving: PRN antiemetics, pain control LFTs: wnl Infectious Disease: See current MAR for antimicrobials. Current issues/Bacterial: -Neutropenic fever in OSH. D/t leukocytosis concerning infectious process, continued cefepi me. -Received levaquin per Pulmonary recs. Renally dosed. -Respiratory vial panel 02/10/12: pending. Fungal: Prophylactic fluconazole. Viral: Prophylactic Acyclovir PCP: Prophylactic Bactrim stopped d/t renal failure. Will need to be restarted when renal f unction improved. Pertinent positive culture: none Pertinent negative cultures: none Fluid/Electrolyte/Nutrition: See I/O above. Current diet: low bacteria. Tolerating 80% of meal x 1 and 1.2L po fluid intake yesterday ( late afternoon admit). Encourage po intake as tolerated with goal of 2L of po fluids daily. MIVF: none at this time TPN: not required at this time Labs: -Electrolytes reviewed and shows hypomagnesemia. Replete per supportive care orders. Renal function: -Cr significantly elevated on arrival/ -Consulted Nephrology 02/10/12 for further worsening renal function (SCr=5.08). -Renal US done in [facility], report on chart. Other: Fluid overload. Serial images show pleural effusion, persistent edema in BLE. Endocrine: -Dx of DM in September 2011. -Started SSI. -D/c'd SSI today (02/11/12), no insulin required. JING HERRERA [facility] [id number] [facility] Mailcode: [id number] [facility] [place] [address] Hong Rodriguez MD - 02/11/2012 10:04 AM [facility] Daily Progress Note I was present and rounded today with the NPP. I have independently examined and assessed th e patient. I have personally interviewed the patient, reviewed vitals, history/last 24 hour events and the labs/studies for today. I agree with the NPP's assessment and stated plan of care. See progress note documented by the NPP for details of relevant issues and care plan f or today. Pt Identification: Zofia Young is a 51 y.o. female with Burkitt lymphoma, transferred for management of renal failure and pulmonary infiltrates Therapy: D28 MTX/Niki-C (regimen 2B HyperCVAD) given @ outside hospital Interval History: No new complaints, doing well, slept, 1 episode emesis Some SOB, better per pt -1L yesterday due to emesis Cr continues to rise PE: BP 132/79 | Pulse 53 | Temp 36.6 C (97.8 F) | RR 18 | Ht 162 cm (5' 3.78") | Wt 93.622 kg (206 lb 6.4 oz) | SpO2 95% | BMI 35.67 kg/(m^2) See NPP note for detailed exam Pertinent findings include lung rales, rhonchi, and prolonged expiratory wheezes Labs: reviewed in [facility] 02/08 CT chest noncontrast IMPRESSION: Multifocal progressive areas of consolidation as above, largest in the right lo wer lobe lateral basal segment. Concurrent areas of extensive ill-defined nodularity consist ent with small airway filling is noted, especially in the upper lobes. These findings are ch aracteristic for an evolving infectious process. Given the extensive bilaterality, strong co nsideration for a viral infection such as influenza, RSV or parainfluenza should be consider ed. The difference possibly would include multifocal bacterial pneumonia, although this is l ess likely. There is mild hydrostatic edema. CXR unchanged Assessment: Zofia Young is a 51 y.o. female with renal failure, bilateral pulmonary infil trates Day 27 from MTX/niki-C chemotherapy for Burkitt lymphoma; getting HyperCVAD+rituximab . 1. Renal failure Probably drug-related. Worse today On admit Na 2.5%, and no casts on my calculation-- ATN may be less likely MTX level undetectable, vanco level high Aguilar in place Keep euvolemic Renal ongoing evaluation 2. Pulmonary infiltrates - Viral panel sent today, in isolation - Infectious vs volume overload - CXR shows edema/infiltrate - echo unremarkable, normal LV size and function - ID/ pulmonary consultation for ?bronch- pending viral studies 3. Burkitt lymphoma - no palpable mass, assume responding as vast majority will - high risk for relapse but current issues trump continued therapy HONG LAST MD 02/11/2012 1:51 PM [facility] DEPARTMENT: [id number]- [facility] Place of Service:- Inpatient Suggested CPT:66664 - Subsequent, Detailed/High complex 35 min Dennys Mckeon MD - 02/11/2012 8:38 AM PDTI saw and examined this patient, discussed with Dr. Parks and deepthi ortiz with the assessment and plans as outlined. I saw the patient on 02/10. [facility] DEPARTMENT: [id number]- [facility] Place of Service: [id number] - IP CSN: [id number] Suggested Modifier: GC Resident Involved Gautam Tapia MD - 8:38 AM PDT NEPHROLOGY FOLLOW UP NOTE Hospital Day # 2 Author: GAUTAM PARKS MD Consulting Attending: Dennys Hagen Interval Hx: - remains non-oliguric - Cr 5.74 -> 5.9 S: very upset with outside oncologist, otherwise no complaints. Physical Exam: Last Vitals: BP 132/79 | Pulse 53 | Temp 36.6 C (97.8 F) | RR 18 | Ht 162 cm (5' 3.78") | Wt 93.622 kg (206 lb 6.4 oz) | SpO2 95% | BMI 35.67 kg/(m^2) 24 Hour Vital Min/Max: Systolic (24hrs), Av mmHg, Min:117 mmHg, Max:139 mmHg Diastolic (24hrs), Av mmHg, Min:75 mmHg, Max:90 mmHg Pulse Min: 53 Max: 112 Temp Min: 36.5 C (97.7 F) Max: 36.9 C (98.5 F) Resp Min: 16 Max: 20 SpO2 Min: 95 % Max: 100 % Intake/Output Summary (Last 24 hours) at 02/11/12 0838 Last data filed at 02/11/12 0700 Gross per 24 hour Intake 1340 ml Output 2535 ml Net -1195 ml Gen: Emotional, tearful, otherwise fairly well appearing, HEENT: No hair Chest: Diffuse crackles, expiratory rhonchi CV: Regular rate and rhythm, no murmurs or rubs Abd: Soft, non-tender, non-distended, normal bowel sounds Extr: B/l edema Current Inpatient Medications: Scheduled Medications Medication Dose Route Frequency Last Rate acyclovir (aka ZOVIRAX) tablet 400 mg 400 mg Oral DAILY ceFEPime (aka MAXIPIME) IV (pyxis minibag+) 2 g 2 g Intravenous Q24H 2 g (02/10/12 185 6) dronabinol (aka MARINOL) capsule 2.5 mg 2.5 mg Oral BID AC fluconazole (aka DIFLUCAN) tablet 200 mg 200 mg Oral DAILY insulin regular (aka HUMULIN R) injection 1-16 Units 1-16 Units Subcutaneous MEALS and SNACK levofloxacin (aka LEVAQUIN) tablet 250 mg 250 mg Oral Q48H omeprazole (aka PRILOSEC) capsule 20 mg 20 mg Oral DAILY oseltamivir (aka TAMIFLU) capsule 75 mg 75 mg Oral DAILY oxyCODONE CR (aka OXYCONTIN) tablet 20 mg 20 mg Oral Q12H PRN Medications Medication Dose Route Frequency Last Rate acetaminophen (aka TYLENOL) tablet 325-650 mg 325-650 mg Oral Q4H PRN albuterol (aka PROVENTIL, VENTOLIN) 90 mcg/Actuation inhaler 2 Puff 2 Puff Inhalation Q6H PRN alteplase (aka CATHFLO ACTIVASE) injection 2 mg 2 mg Intracatheter PRN aluminum-magnesium hydroxide-simethicone (aka MAALOX; MYLANTA) 200-200-20 mg/5 mL suspe nsion 30 mL 30 mL Oral Q3H PRN dextrose IV 25 mL 25 mL Intravenous PRN diphenhydrAMINE (aka BENADRYL) capsule 25 mg 25 mg Oral Q4H PRN diphenoxylate-atropine (aka LOMOTIL) 2.5-0.025 mg 1 Tab 1 Tab Oral BID PRN droperidol (aka INAPSINE) injection 0.625 mg 0.625 mg Intravenous Q2H PRN 0.625 mg ( 1913) glucagon (aka GLUCAGEN) injection 1 mg 1 mg Intramuscular PRN glucose chewable tablet 16 g 16 g Oral Q15MIN PRN heparin 10 unit/mL IV flush syringe 50 Units 50 Units Intravenous PRN 50 Units ( 0530) lactulose (aka ENULAC) liquid 20 g 30 mL Oral TID PRN lanolin-mineral oil (aka LUBRIDERM) lotion Topical Q2H PRN loperamide (aka IMODIUM) capsule 2 mg 2 mg Oral PRN LORazepam (aka ATIVAN) tablet 0.5-1 mg 0.5-1 mg Oral Q4H PRN magnesium hydroxide (aka MILK OF MAGNESIA) suspension 30 mL 30 mL Oral Q6H PRN magnesium sulfate IV 2 g 2 g Intravenous PRN 2 g (02/11/120) magnesium sulfate IV 6 g 6 g Intravenous PRN morphine injection Inj 1-4 mg 1-4 mg Intravenous Q2H PRN 2 mg (02/10/121912) nystatin-zinc oxide-lidocaine (aka NDX) ointment Topical Q1H PRN oxyCODONE immediate release (aka ROXICODONE) tablet 5-10 mg 5-10 mg Oral Q4H PRN polyethylene glycol (aka MIRALAX) powder 17 g 17 g Oral DAILY PRN potassium chloride IV 20 mEq 20 mEq Intravenous PRN potassium chloride IV 40 mEq 40 mEq Intravenous PRN potassium chloride SR (aka K-DUR) tablet 20 mEq 20 mEq Oral PRN prochlorperazine (aka COMPAZINE) tablet 5-10 mg 5-10 mg Oral Q4H PRN senna-docusate (aka SENOKOT S) 8.6-50 mg 1-2 Tab 1-2 Tab Oral Q12H PRN sodium chloride (aka OCEAN) 0.65 % nasal spray 1 [place] 1 [place] Nasal Q1H PRN sodium phosphate IV 20 mmol 20 mmol Intravenous PRN sodium phosphate IV 30 mmol 30 mmol Intravenous PRN temazepam (aka RESTORIL) capsule 15 mg 15 mg Oral HS PRN Continuous Medications Medication Dose Route Frequency Last Rate Data: Chemistries: Last 72 Hours (or 3 results): Recent Labs Basename 02/11/12 0735 02/11/12 0008 02/10/12 2249 02/10/12 1812 02/10/12 0445 02/09/12 140 3 NA -- 138 -- 139 137 -- K -- 4.1 -- 4.2 4.6 -- CL -- 109* -- 109* 107 -- BICARB -- 19* -- 21* 21* -- BUN -- 24* -- 23* 18 -- CR -- 5.90* -- 5.74* 5.08* -- GLU 76 86 81 -- -- -- CA -- 8.2* -- 8.3* 8.1* -- MG -- 1.6* -- -- 1.9 1.3* PO4 -- 4.8* -- -- 5.1* 4.7 CBC with diff last 72 hours (or 3 results) Recent Labs Basename 02/11/12 0008 02/10/12 0445 02/09/12 1403 WBC 3.5* 3.6* 2.1* HB 9.4* 9.8* 7.3* HCT 26.8* 28.4* 20.9* PLT 58* 53* 39* NEUTROPERC 52 42* 44* BANDPCT 9 13* -- LYMPHPERC 18 26 24 MONOPERC 20* 17* 32* BASOPERC 0 0 0 EOSPERC 0* 0* 0* Assessment: Zofia Young is a 51 y.o. 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 The etiology of her KIERA is most likely ATN, gven the rapid increase in Cr and muddy brown c asts. The cause of the ATN is likely sepsis. She remains non-oliguric which is a good progno stic sign for her kidneys however her Cr still going up so warrant continued close monitorin g. Recommendations: - No indication for dialysis - discontinue K+, Mag, Phos repletion protocols - dose meds for GFR <20 The patient was seen and discussed with Dr. Hagen who agrees with the above assessment an d plan. MD Chava JASSO Internal Medicine PGY2 Pager [phone] Maricel Patton [facility] - 02/10/2012 4:58 PM PDT Daily NPP Note - Chemotherapy Admit [facility] Provider: Andrew Last MD PCP: JING Luis Date of Admission: 02/09/12 Hematologic Malignancy: Burkitts lymphoma Reason for admission: renal failure Chemotherapy Day: cycle 2B started 01/13 - at OSH Subjective: More alert today. Feels her breathing is difficult whenever she gets up and wa lks or tries to lay flat. States oxygen helps. Objective: Last Vitals: BP 117/75 | Pulse 93 | Temp 36.5 C (97.7 F) | RR 20 | Ht 162 cm (5' 3.78") | Wt 96.48 kg (212 lb 11.2 oz) | SpO2 98% | BMI 36.76 kg/(m^2) 24 Hour Vital Min/Max: Systolic (24hrs), Av mmHg, Min:102 mmHg, Max:159 mmHg Diastolic (24hrs), Av mmHg, Min:62 mmHg, Max:101 mmHg Pulse Min: 90 Max: 126 Temp Min: 36.3 C (97.4 F) Max: 37.1 C (98.7 F) Resp Min: 16 Max: 32 SpO2 Min: 94 % Max: 98 % Intake/Output Summary (Last 24 hours) at 02/10/12 1700 Last data filed at 02/10/12 1630 Gross per 24 hour Intake 1325 ml Output 2205 ml Net -880 ml Physical Exam: General: This is a female in no acute distress sitting up at the edge of [facility] bed. HEENT: Sclerae anicteric. Mucosa pink and [...] Pulses strong and equal bilaterally. No c/c. 3+ DEV NeuroPsych: Alert and oriented x 3. Grossly nonfocal exam. CVC: PAC accessed. Chemistries: Last 72 Hours (or 3 results): Recent Labs Basename 02/10/12 0445 02/09/12 1403 NA 137 137 K 4.6 4.2 CL 107 107 BICARB 21* 23 BUN 18 18 CR 5.08* 4.28* CA 8.1* 8.0* MG 1.9 1.3* PO4 5.1* 4.7 AST 12* 10* ALT 10* 10* TBILI 0.9 0.6 AP 152* 97 ALB 2.5* 2.3* TP 5.5* 5.0* Liver Tests: Last 72 hours (or 3 results) URIC ACID, PLASMA (LAB) (mg/dL) Date Value 02/09/2012 4.3 12/06/2011 3.4 12/05/2011 4.2 CBC with diff last 72 hours (or 3 results) Recent Labs Basename 02/10/12 0445 02/09/12 1403 WBC 3.6* 2.1* HB 9.8* 7.3* HCT 28.4* 20.9* PLT 53* 39* NEUTROPERC 42* 44* BANDPCT 13* -- LYMPHPERC 26 24 MONOPERC 17* 32* BASOPERC 0 0 EOSPERC 0* 0* Meds: Reviewed on rounds, see [...] preferre d the procedure be done at [facility] and she was referred to Dr. Silvio Rm. She was seen on 10/02 for her [...] medications Patient was admitted from clinic for treatment of her lymphoma. She was treated with cycle 1A and given 1B prior to dc. LP's done at [facility] showed no evidence of disease. Then she rec eived care closer to her home in [place]. She recevied 2A and 2B and did well until she h ad neutropenic fevers on day 15 of cycle 2B. She was admitted locally and treated with broad spectrum therapy and vancomycin for the fevers. No report of any positive cultures from OS H. Pt was transferred to [facility] after she suddenly went into renal failure. Current Heme issues: -hx of Burkitt's lymphoma, currently s/p cycle 2B of Hyper CVAD (received in [place])- re covering counts. . -CBC reviewed -There is no blood product support required at this time. - 12/04/11 Mammogram completed to f/u left breast soft tissue nodules seen on 11/14/11 CT scan . Shows 2 nodules in the left breast that have benign mammographic features. However assessm ent states that this was an incomplete study needing additional imaging/comparison. Request was sent for out side studies to compare with current imaging. Needs to be followed up in fu ture OP setting or in subsequent admissions. Unclear if this has been completed. Will discu ss with patient. Hospitalization Heme issues: As above Chemotherapy regimen: None during this admission. Growth factor: no indication for use at this time. Labs: Continue to check CBC daily Transfusion parameters: Transfuse PRBCs for HCT <24% Transfuse PPH for platelet count <10,000 sooner PRN s/s bleeding. Cardiovascular: Current cardiovascular issues: -currently hemodynamically stable. Hospitalization CV issues: -previous issues with HTN, was on lisinopril, stopped in light of renal failure Pulmonary: Current pulmonary issues: -No acute issues and sats stable on RA Hospitalization pulmonary issues: As above Imagin/10- CXR: Progressive worsening multifocal consolidation in the perihilar and right lower /middle lobe areas. This is most characteristic for progressive multifocal bacterial pneumon ia. Differential would include cryptogenic organizing pneumonia. 02/08- Chest CT - Multifocal progressive areas of consolidation as above, largest in the rig ht lower lobe lateral basal segment. Concurrent areas of extensive ill-defined nodularity co nsistent with small airway filling is noted, especially in the upper lobes. These findings a re characteristic for an evolving infectious process. Given the extensive bilaterality, stro ng consideration for a viral infection such as influenza, RSV or parainfluenza should be con sidered. The difference possibly would include multifocal bacterial pneumonia, although this is less likely. There is mild hydrostatic edema. GI: Current GI issues: -no issues currently. Eating and drinking normally per reports, will follow inpatient. Hospitalization GI issues: -as above. Receiving: PRN antiemetics, pain control LFTs : wnl Infectious Disease: See current MAR for antimicrobials. Current issues/Bacterial: -had neutropenic fevers at OSH. WBC rising, no longer neutropenic, but d/t concern for pul monary infection will continue cefepim. - will add levoquin per pulmonary recs - adjusted for her poor renal function. Fungal: Prophylactic fluconazole. Viral: Prophylactic Acyclovir PCP: Prophylactic Bactrim stopped d/t renal failure. Will need to be restarted when renal function improved. Pertinent positive culture: none Pertinent negative cultures: none Fluid/Electrolyte/Nutrition: See I/O above. Current diet: low bacteria. Tolerating 80% of meal with 400mL po fluid intake yesterday (l ate afternoon admit). Encourage po intake as tolerated with goal of 2L of po fluids daily. MIVF: none at this time TPN: not required at this time Labs: Electrolytes reviewed and no repletion required. Renal function: Cr significantly elevated on arrival, on 02/09 continues to increase to 5.08 . Renal consult obtained. Ultrasound done at OSH- report on chart. Other:Does appear to be fluid long, edema noted in lower extremities bilaterally Endocrine: Originally diagnosed with diabetes September 2011. Using accuchecks and sliding s xochilt insulin [facility] [id number] [facility] Mailcode: [id number] [facility] [id number] e[address]arreal 02/10/2012 3:53 PM PDTTransthoracic echocardiogram completed. Final report to follow. ngrid Braun - 02/09 1:46 PM PDTPatient Name: ZOFIA YOUNG Date of : 1960 CASE MANAGEMENT INITIAL ASSESSMENT SOURCE OF INFORMATION Assessment information came from: chart review, physician team REASON FOR ADMISSION The circumstances leading to hospitalization are as follows: Notes: 51 y.o. female with Burkitt lymphoma, transferred for management of renal failure and pulmonary infiltrates Therapy: D27 MTX/Niki-C (regimen 2B HyperCVAD) given @ outside hospital PRIOR HOME SERVICES IN PLACE Home services in place prior to admission included the following: *None LIVING SITUATION AND SUPPORT SYSTEM Prior to admission, the living situation and support system included: House or Apartment FUNCTIONAL STATUS Patient's baseline functional status prior to coming to admission: Independent POTENTIAL FOR READMISSION My assessment indicates the following high risk factors for readmission apply: Other risk factor for readmission burkitt's lymphoma, chemo TRANSPORTATION AVAILABLE Patient's plan for discharge transportation: ANTICIPATED DISCHARGE NEEDS My assessment indicates the following discharge needs are expected: Other (see Notes) The initial plan was discussed with: Patient OTHER PERTINENT ASSESSMENT AND PLANNING INFORMATION * Notes: Undetermined discharge needs. Will reassess when medically ready for disch. Electronically signed by:Ingrid Braun Position:Health Science Specialist Pager ID:[phone] 12 1:46 PM Hong Rodriguez MD - 02/10/2012 12:49 PM PDTCenter for Hematologic Malignan cies Daily Progress Note I was present and rounded today with the NPP. I have independently examined and assessed th e patient. I have personally interviewed the patient, reviewed vitals, history/last 24 hour events and the labs/studies for today. I agree with the NPP's assessment and stated plan of care. See progress note documented by the NPP for details of relevant issues and care plan f or today. Pt Identification: Zofia Young is a 51 y.o. female with Burkitt lymphoma, transferred for management of renal failure and pulmonary infiltrates Therapy: D27 MTX/Niki-C (regimen 2B HyperCVAD) given @ outside hospital Interval History: No new complaints, mentally more clear on renally adjusted narcotic dose UOP 495 cc from yesterday PM- 7 am today; got lasix between 2 PRBC units transfused Lungs don't look like fluid overload based on CT scan, but multifocal PNA (result below) PE: BP 117/75 | Pulse 93 | Temp 36.5 C (97.7 F) | RR 20 | Ht 162 cm (5' 3.78") | Wt 96.48 k g (212 lb 11.2 oz) | SpO2 98% | BMI 36.76 kg/(m^2) See NPP note for detailed exam Pertinent findings include lung rales, rhonchi, and prolonged expiratory wheezes Labs: reviewed in [facility] 02/08 CT chest noncontrast IMPRESSION: Multifocal progressive areas of consolidation as above, largest in the right lo wer lobe lateral basal segment. Concurrent areas of extensive ill-defined nodularity consist ent with small airway filling is noted, especially in the upper lobes. These findings are ch aracteristic for an evolving infectious process. Given the extensive bilaterality, strong co nsideration for a viral infection such as influenza, RSV or parainfluenza should be consider ed. The difference possibly would include multifocal bacterial pneumonia, although this is l ess likely. There is mild hydrostatic edema. Assessment: Zofia Young is a 51 y.o. female with renal failure, bilateral pulmonary infil trates Day 27 from MTX/niki-C chemotherapy for Burkitt lymphoma; getting HyperCVAD+rituximab . 1. Renal failure Probably drug-related. Worse today despite 2 units PRBC transfused, euvolemic On admit FeNa 2.5%, and no casts on my calculation-- ATN may be less likely Uric acid normal, time course not right for TLS MTX level undetectable, vanco level high Aguilar in place Keep euvolemic today pending renal evaluation Renal consultation 2. Pulmonary infiltrates - Viral panel sent today, in isolation - Infectious vs volume overload - CXR shows edema/infiltrate - high BNP and S3--> echo today - pulmonary consultation for ?bronch 3. BL - no palpable mass, assume responding as vast majority will - high risk for relapse but current issues trump continued therapy HONG LAST MD 02/10/2012 12:49 PM [facility] DEPARTMENT: [id number]- [facility] Place of Service:- Inpatient Suggested CPT:56140 - Subsequent, Detailed/High complex 35 min documented in this e ncounter Plan of Treatment + +---------+--------+ + + | Name | Type | Priori | Associated Diagnoses | Order Schedule | | | | ty | | | + +---------+--------+ + + | CULTURE, BLOOD BACTI | Lab | Routin | | As Needed for 1 | | & YEAST | | e | | Occurrences starting | | | | | | 02/09/2012 | + +---------+--------+ + + | X-RAY CHEST 2 VIEW | Imaging | Routin | | As Needed for 1 | | | | e | | Occurrences starting | | | | | | 02/09/2012 | + +---------+--------+ + + | UA, DIPSTICK ONLY | Lab | Routin | | As Needed for 1 | | | | e | | Occurrences starting | | | | | | 02/09/2012 | + +---------+--------+ + + | URINE, MICROSCOPIC | Lab | Routin | | As Needed for 1 | | EXAM | | e | | Occurrences starting | | | | | | 02/09/2012 | + +---------+--------+ + + | CULTURE, URINE BACTI | Lab | Routin | | As Needed for 1 | | | | e | | Occurrences starting | | | | | | 02/09/2012 | + +---------+--------+ + + documented as of this encounter Procedures + +--------+ + + + | Procedure Name | Priori | Date/Time | Associated Diagnosis | Comments | | | ty | | | | + +--------+ + + + | DIFFERENTIAL | Routin | 02/21/2012 | | Results for this | | | e | 12:20 AM | | procedure are in the | | | | PDT | | results section. | + +--------+ + + + | CBC, WITH | Routin | 02/21/2012 | | Results for this | | DIFFERENTIAL | e | 12:20 AM | | procedure are in the | | | | PDT | | results section. | + +--------+ + + + | VANCOMYCIN, RANDOM | Routin | 02/21/2012 | | Results for this | | | e | 12:20 AM | | procedure are in the | | | | PDT | | results section. | + +--------+ + + + | COMPLETE METABOLIC | Routin | 02/21/2012 | | Results for this | | SET | e | 12:20 AM | | procedure are in the | | (NA,K,CL,CO2,BUN,CRE | | PDT | | results section. | | AT,GLUC,CA,AST,ALT,B | | | | | | CAIN TOTAL,ALK | | | | | | PHOS,ALB,PROT TOTAL) | | | | | + +--------+ + + + | PHOSPHORUS, PLASMA | Routin | 02/21/2012 | | Results for this | | | e | 12:20 AM | | procedure are in the | | | | PDT | | results section. | + +--------+ + + + | MAGNESIUM, PLASMA | Routin | 02/21/2012 | | Results for this | | | e | 12:20 AM | | procedure are in the | | | | PDT | | results section. | + +--------+ + + + | DIFFERENTIAL | Routin | 02/20/2012 | | Results for this | | | e | 12:30 AM | | procedure are in the | | | | PDT | | results section. | + +--------+ + + + | CBC, WITH | Routin | 02/20/2012 | | Results for this | | DIFFERENTIAL | e | 12:30 AM | | procedure are in the | | | | PDT | | results section. | + +--------+ + + + | VANCOMYCIN, RANDOM | Routin | 02/20/2012 | | Results for this | | | e | 12:30 AM | | procedure are in the | | | | PDT | | results section. | + +--------+ + + + | COMPLETE METABOLIC | Routin | 02/20/2012 | | Results for this | | SET | e | 12:30 AM | | procedure are in the | | (NA,K,CL,CO2,BUN,CRE | | PDT | | results section. | | AT,GLUC,CA,AST,ALT,B | | | | | | CAIN TOTAL,ALK | | | | | | PHOS,ALB,PROT TOTAL) | | | | | + +--------+ + + + | PHOSPHORUS, PLASMA | Routin | 02/20/2012 | | Results for this | | | e | 12:30 AM | | procedure are in the | | | | PDT | | results section. | + +--------+ + + + | MAGNESIUM, PLASMA | Routin | 02/20/2012 | | Results for this | | | e | 12:30 AM | | procedure are in the | | | | PDT | | results section. | + +--------+ + + + | DIFFERENTIAL | Routin | 02/19/2012 | | Results for this | | | e | 12:33 AM | | procedure are in the | | | | PDT | | results section. | + +--------+ + + + | CBC, WITH | Routin | 02/19/2012 | | Results for this | | DIFFERENTIAL | e | 12:33 AM | | procedure are in the | | | | PDT | | results section. | + +--------+ + + + | VANCOMYCIN, RANDOM | Routin | 02/19/2012 | | Results for this | | | e | 12:33 AM | | procedure are in the | | | | PDT | | results section. | + +--------+ + + + | COMPLETE METABOLIC | Routin | 02/19/2012 | | Results for this | | SET | e | 12:33 AM | | procedure are in the | | (NA,K,CL,CO2,BUN,CRE | | PDT | | results section. | | AT,GLUC,CA,AST,ALT,B | | | | | | CANI TOTAL,ALK | | | | | | PHOS,ALB,PROT TOTAL) | | | | | + +--------+ + + + | PHOSPHORUS, PLASMA | Routin | 02/19/2012 | | Results for this | | | e | 12:33 AM | | procedure are in the | | | | PDT | | results section. | + +--------+ + + + | MAGNESIUM, PLASMA | Routin | 02/19/2012 | | Results for this | | | e | 12:33 AM | | procedure are in the | | | | PDT | | results section. | + +--------+ + + + | EXTENDED DIFF | Routin | 02/18/2012 | | Results for this | | | e | 12:01 AM | | procedure are in the | | | | PDT | | results section. | + +--------+ + + + | DIFFERENTIAL | Routin | 02/18/2012 | | Results for this | | | e | 12:01 AM | | procedure are in the | | | | PDT | | results section. | + +--------+ + + + | CBC, WITH | Routin | 02/18/2012 | | Results for this | | DIFFERENTIAL | e | 12:01 AM | | procedure are in the | | | | PDT | | results section. | + +--------+ + + + | VANCOMYCIN, RANDOM | Routin | 02/18/2012 | | Results for this | | | e | 12:01 AM | | procedure are in the | | | | PDT | | results section. | + +--------+ + + + | COMPLETE METABOLIC | Routin | 02/18/2012 | | Results for this | | SET | e | 12:01 AM | | procedure are in the | | (NA,K,CL,CO2,BUN,CRE | | PDT | | results section. | | AT,GLUC,CA,AST,ALT,B | | | | | | CAIN TOTAL,ALK | | | | | | PHOS,ALB,PROT TOTAL) | | | | | + +--------+ + + + | PHOSPHORUS, PLASMA | Routin | 02/18/2012 | | Results for this | | | e | 12:01 AM | | procedure are in the | | | | PDT | | results section. | + +--------+ + + + | BILIRUBIN DIRECT | Routin | 02/18/2012 | | Results for this | | | e | 12:01 AM | | procedure are in the | | | | PDT | | results section. | + +--------+ + + + | URIC ACID, PLASMA | Routin | 02/18/2012 | | Results for this | | | e | 12:01 AM | | procedure are in the | | | | PDT | | results section. | + +--------+ + + + | MAGNESIUM, PLASMA | Routin | 02/18/2012 | | Results for this | | | e | 12:01 AM | | procedure are in the | | | | PDT | | results section. | + +--------+ + + + | LDH TOTAL, PLASMA | Routin | 02/18/2012 | | Results for this | | | e | 12:01 AM | | procedure are in the | | | | PDT | | results section. | + +--------+ + + + | CHOLESTEROL TOTAL, | Routin | 02/18/2012 | | Results for this | | PLASMA | e | 12:01 AM | | procedure are in the | | | | PDT | | results section. | + +--------+ + + + | DIFFERENTIAL | Routin | 02/17/2012 | | Results for this | | | e | 12:10 AM | | procedure are in the | | | | PDT | | results section. | + +--------+ + + + | CBC, WITH | Routin | 02/17/2012 | | Results for this | | DIFFERENTIAL | e | 12:10 AM | | procedure are in the | | | | PDT | | results section. | + +--------+ + + + | VANCOMYCIN, RANDOM | Routin | 02/17/2012 | | Results for this | | | e | 12:10 AM | | procedure are in the | | | | PDT | | results section. | + +--------+ + + + | COMPLETE METABOLIC | Routin | 02/17/2012 | | Results for this | | SET | e | 12:10 AM | | procedure are in the | | (NA,K,CL,CO2,BUN,CRE | | PDT | | results section. | | AT,GLUC,CA,AST,ALT,B | | | | | | CAIN TOTAL,ALK | | | | | | PHOS,ALB,PROT TOTAL) | | | | | + +--------+ + + + | PHOSPHORUS, PLASMA | Routin | 02/17/2012 | | Results for this | | | e | 12:10 AM | | procedure are in the | | | | PDT | | results section. | + +--------+ + + + | MAGNESIUM, PLASMA | Routin | 02/17/2012 | | Results for this | | | e | 12:10 AM | | procedure are in the | | | | PDT | | results section. | + +--------+ + + + | RESP CARE THERAPY | Routin | 02/16/2012 | | Results for this | | | e | 12:23 AM | | procedure are in the | | | | PDT | | results section. | + +--------+ + + + | DIFFERENTIAL | Routin | 02/16/2012 | | Results for this | | | e | 12:08 AM | | procedure are in the | | | | PDT | | results section. | + +--------+ + + + | CBC, WITH | Routin | 02/16/2012 | | Results for this | | DIFFERENTIAL | e | 12:08 AM | | procedure are in the | | | | PDT | | results section. | + +--------+ + + + | VANCOMYCIN, RANDOM | Routin | 02/16/2012 | | Results for this | | | e | 12:08 AM | | procedure are in the | | | | PDT | | results section. | + +--------+ + + + | COMPLETE METABOLIC | Routin | 02/16/2012 | | Results for this | | SET | e | 12:08 AM | | procedure are in the | | (NA,K,CL,CO2,BUN,CRE | | PDT | | results section. | | AT,GLUC,CA,AST,ALT,B | | | | | | CAIN TOTAL,ALK | | | | | | PHOS,ALB,PROT TOTAL) | | | | | + +--------+ + + + | PHOSPHORUS, PLASMA | Routin | 02/16/2012 | | Results for this | | | e | 12:08 AM | | procedure are in the | | | | PDT | | results section. | + +--------+ + + + | MAGNESIUM, PLASMA | Routin | 02/16/2012 | | Results for this | | | e | 12:08 AM | | procedure are in the | | | | PDT | | results section. | + +--------+ + + + | RESP CARE THERAPY | Routin | 02/15/2012 | | Results for this | | | e | 1:52 AM | | procedure are in the | | | | PDT | | results section. | + +--------+ + + + | DIFFERENTIAL | Routin | 02/15/2012 | | Results for this | | | e | 12:07 AM | | procedure are in the | | | | PDT | | results section. | + +--------+ + + + | INR | Routin | 02/15/2012 | | Results for this | | | e | 12:07 AM | | procedure are in the | | | | PDT | | results section. | + +--------+ + + + | CBC, WITH | Routin | 02/15/2012 | | Results for this | | DIFFERENTIAL | e | 12:07 AM | | procedure are in the | | | | PDT | | results section. | + +--------+ + + + | VANCOMYCIN, RANDOM | Routin | 02/15/2012 | | Results for this | | | e | 12:07 AM | | procedure are in the | | | | PDT | | results section. | + +--------+ + + + | COMPLETE METABOLIC | Routin | 02/15/2012 | | Results for this | | SET | e | 12:07 AM | | procedure are in the | | (NA,K,CL,CO2,BUN,CRE | | PDT | | results section. | | AT,GLUC,CA,AST,ALT,B | | | | | | CAIN TOTAL,ALK | | | | | | PHOS,ALB,PROT TOTAL) | | | | | + +--------+ + + + | PHOSPHORUS, PLASMA | Routin | 02/15/2012 | | Results for this | | | e | 12:07 AM | | procedure are in the | | | | PDT | | results section. | + +--------+ + + + | BILIRUBIN DIRECT | Routin | 02/15/2012 | | Results for this | | | e | 12:07 AM | | procedure are in the | | | | PDT | | results section. | + +--------+ + + + | URIC ACID, PLASMA | Routin | 02/15/2012 | | Results for this | | | e | 12:07 AM | | procedure are in the | | | | PDT | | results section. | + +--------+ + + + | MAGNESIUM, PLASMA | Routin | 02/15/2012 | | Results for this | | | e | 12:07 AM | | procedure are in the | | | | PDT | | results section. | + +--------+ + + + | LDH TOTAL, PLASMA | Routin | 02/15/2012 | | Results for this | | | e | 12:07 AM | | procedure are in the | | | | PDT | | results section. | + +--------+ + + + | CHOLESTEROL TOTAL, | Routin | 02/15/2012 | | Results for this | | PLASMA | e | 12:07 AM | | procedure are in the | | | | PDT | | results section. | + +--------+ + + + | CHOLESTEROL TOTAL, | Routin | 02/15/2012 | | Results for this | | PLASMA | e | 12:07 AM | | procedure are in the | | | | PDT | | results section. | + +--------+ + + + | RESP CARE THERAPY | Routin | 02/14/2012 | | Results for this | | | e | 12:50 AM | | procedure are in the | | | | PDT | | results section. | + +--------+ + + + | EXTENDED DIFF | Routin | 02/14/2012 | | Results for this | | | e | 12:22 AM | | procedure are in the | | | | PDT | | results section. | + +--------+ + + + | DIFFERENTIAL | Routin | 02/14/2012 | | Results for this | | | e | 12:22 AM | | procedure are in the | | | | PDT | | results section. | + +--------+ + + + | CBC, WITH | Routin | 02/14/2012 | | Results for this | | DIFFERENTIAL | e | 12:22 AM | | procedure are in the | | | | PDT | | results section. | + +--------+ + + + | VANCOMYCIN, RANDOM | Routin | 02/14/2012 | | Results for this | | | e | 12:22 AM | | procedure are in the | | | | PDT | | results section. | + +--------+ + + + | COMPLETE METABOLIC | Routin | 02/14/2012 | | Results for this | | SET | e | 12:22 AM | | procedure are in the | | (NA,K,CL,CO2,BUN,CRE | | PDT | | results section. | | AT,GLUC,CA,AST,ALT,B | | | | | | CAIN TOTAL,ALK | | | | | | PHOS,ALB,PROT TOTAL) | | | | | + +--------+ + + + | PHOSPHORUS, PLASMA | Routin | 02/14/2012 | | Results for this | | | e | 12:22 AM | | procedure are in the | | | | PDT | | results section. | + +--------+ + + + | MAGNESIUM, PLASMA | Routin | 02/14/2012 | | Results for this | | | e | 12:22 AM | | procedure are in the | | | | PDT | | results section. | + +--------+ + + + | URINE, MICROSCOPIC | Routin | 02/13/2012 | | Results for this | | EXAM | e | 3:57 PM | | procedure are in the | | | | PDT | | results section. | + +--------+ + + + | X-RAY CHEST 2 VIEW | Routin | 02/13/2012 | | Results for this | | | e | 3:43 PM | | procedure are in the | | | | PDT | | results section. | + +--------+ + + + | RESP CARE THERAPY | Routin | 02/13/2012 | | Results for this | | | e | 12:26 AM | | procedure are in the | | | | PDT | | results section. | + +--------+ + + + | EXTENDED DIFF | Routin | 02/13/2012 | | Results for this | | | e | 12:11 AM | | procedure are in the | | | | PDT | | results section. | + +--------+ + + + | DIFFERENTIAL | Routin | 02/13/2012 | | Results for this | | | e | 12:11 AM | | procedure are in the | | | | PDT | | results section. | + +--------+ + + + | CBC, WITH | Routin | 02/13/2012 | | Results for this | | DIFFERENTIAL | e | 12:11 AM | | procedure are in the | | | | PDT | | results section. | + +--------+ + + + | VANCOMYCIN, RANDOM | Routin | 02/13/2012 | | Results for this | | | e | 12:11 AM | | procedure are in the | | | | PDT | | results section. | + +--------+ + + + | COMPLETE METABOLIC | Routin | 02/13/2012 | | Results for this | | SET | e | 12:11 AM | | procedure are in the | | (NA,K,CL,CO2,BUN,CRE | | PDT | | results section. | | AT,GLUC,CA,AST,ALT,B | | | | | | CAIN TOTAL,ALK | | | | | | PHOS,ALB,PROT TOTAL) | | | | | + +--------+ + + + | PHOSPHORUS, PLASMA | Routin | 02/13/2012 | | Results for this | | | e | 12:11 AM | | procedure are in the | | | | PDT | | results section. | + +--------+ + + + | MAGNESIUM, PLASMA | Routin | 02/13/2012 | | Results for this | | | e | 12:11 AM | | procedure are in the | | | | PDT | | results section. | + +--------+ + + + | TOTAL RESULTS | Routin | 02/12/2012 | | Results for this | | FOR,URINE | e | 12:41 PM | | procedure are in the | | | | PDT | | results section. | + +--------+ + + + | SODIUM TOTAL, URINE | Routin | 02/12/2012 | | Results for this | | | e | 12:41 PM | | procedure are in the | | | | PDT | | results section. | + +--------+ + + + | UA, DIPSTICK ONLY | Routin | 02/12/2012 | | Results for this | | | e | 12:41 PM | | procedure are in the | | | | PDT | | results section. | + +--------+ + + + | OSMOLALITY, URINE | Routin | 02/12/2012 | | Results for this | | SPOT | e | 12:41 PM | | procedure are in the | | | | PDT | | results section. | + +--------+ + + + | PROTEIN, URINE | Routin | 02/12/2012 | | Results for this | | | e | 12:41 PM | | procedure are in the | | | | PDT | | results section. | + +--------+ + + + | CREATININE, URINE | Routin | 02/12/2012 | | Results for this | | | e | 12:41 PM | | procedure are in the | | | | PDT | | results section. | + +--------+ + + + | CHLORIDE, URINE | Routin | 02/12/2012 | | Results for this | | | e | 12:41 PM | | procedure are in the | | | | PDT | | results section. | + +--------+ + + + | RESP CARE THERAPY | Routin | 02/12/2012 | | Results for this | | | e | 3:45 AM | | procedure are in the | | | | PDT | | results section. | + +--------+ + + + | EXTENDED DIFF | Routin | 02/12/2012 | | Results for this | | | e | 12:06 AM | | procedure are in the | | | | PDT | | results section. | + +--------+ + + + | DIFFERENTIAL | Routin | 02/12/2012 | | Results for this | | | e | 12:06 AM | | procedure are in the | | | | PDT | | results section. | + +--------+ + + + | CBC, WITH | Routin | 02/12/2012 | | Results for this | | DIFFERENTIAL | e | 12:06 AM | | procedure are in the | | | | PDT | | results section. | + +--------+ + + + | VANCOMYCIN, RANDOM | Routin | 02/12/2012 | | Results for this | | | e | 12:06 AM | | procedure are in the | | | | PDT | | results section. | + +--------+ + + + | COMPLETE METABOLIC | Routin | 02/12/2012 | | Results for this | | SET | e | 12:06 AM | | procedure are in the | | (NA,K,CL,CO2,BUN,CRE | | PDT | | results section. | | AT,GLUC,CA,AST,ALT,B | | | | | | CAIN TOTAL,ALK | | | | | | PHOS,ALB,PROT TOTAL) | | | | | + +--------+ + + + | PHOSPHORUS, PLASMA | Routin | 02/12/2012 | | Results for this | | | e | 12:06 AM | | procedure are in the | | | | PDT | | results section. | + +--------+ + + + | MAGNESIUM, PLASMA | Routin | 02/12/2012 | | Results for this | | | e | 12:06 AM | | procedure are in the | | | | PDT | | results section. | + +--------+ + + + | CAPILLARY BLOOD | Routin | 02/11/2012 | | Results for this | | GLUCOSE (NO CHG), | e | 5:56 PM | | procedure are in the | | POC | | PDT | | results section. | + +--------+ + + + | CAPILLARY BLOOD | Routin | 02/11/2012 | | Results for this | | GLUCOSE (NO CHG), | e | 11:39 AM | | procedure are in the | | POC | | PDT | | results section. | + +--------+ + + + | CAPILLARY BLOOD | Routin | 02/11/2012 | | Results for this | | GLUCOSE (NO CHG), | e | 7:35 AM | | procedure are in the | | POC | | PDT | | results section. | + +--------+ + + + | C. DIFFICILE TOXIN, | Routin | 02/11/2012 | | Results for this | | W/REFLEX | e | 6:00 AM | | procedure are in the | | CONFIRMATION IF | | PDT | | results section. | | INDETERMINATE | | | | | | RESULTS | | | | | + +--------+ + + + | RESP CARE THERAPY | Routin | 02/11/2012 | | Results for this | | | e | 3:04 AM | | procedure are in the | | | | PDT | | results section. | + +--------+ + + + | EXTENDED DIFF | Routin | 02/11/2012 | | Results for this | | | e | 12:08 AM | | procedure are in the | | | | PDT | | results section. | + +--------+ + + + | DIFFERENTIAL | Routin | 02/11/2012 | | Results for this | | | e | 12:08 AM | | procedure are in the | | | | PDT | | results section. | + +--------+ + + + | CBC, WITH | Routin | 02/11/2012 | | Results for this | | DIFFERENTIAL | e | 12:08 AM | | procedure are in the | | | | PDT | | results section. | + +--------+ + + + | VANCOMYCIN, RANDOM | Routin | 02/11/2012 | | Results for this | | | e | 12:08 AM | | procedure are in the | | | | PDT | | results section. | + +--------+ + + + | COMPLETE METABOLIC | Routin | 02/11/2012 | | Results for this | | SET | e | 12:08 AM | | procedure are in the | | (NA,K,CL,CO2,BUN,CRE | | PDT | | results section. | | AT,GLUC,CA,AST,ALT,B | | | | | | CAIN TOTAL,ALK | | | | | | PHOS,ALB,PROT TOTAL) | | | | | + +--------+ + + + | PHOSPHORUS, PLASMA | Routin | 02/11/2012 | | Results for this | | | e | 12:08 AM | | procedure are in the | | | | PDT | | results section. | + +--------+ + + + | BILIRUBIN DIRECT | Routin | 02/11/2012 | | Results for this | | | e | 12:08 AM | | procedure are in the | | | | PDT | | results section. | + +--------+ + + + | URIC ACID, PLASMA | Routin | 02/11/2012 | | Results for this | | | e | 12:08 AM | | procedure are in the | | | | PDT | | results section. | + +--------+ + + + | MAGNESIUM, PLASMA | Routin | 02/11/2012 | | Results for this | | | e | 12:08 AM | | procedure are in the | | | | PDT | | results section. | + +--------+ + + + | LDH TOTAL, PLASMA | Routin | 02/11/2012 | | Results for this | | | e | 12:08 AM | | procedure are in the | | | | PDT | | results section. | + +--------+ + + + | CHOLESTEROL TOTAL, | Routin | 02/11/2012 | | Results for this | | PLASMA | e | 12:08 AM | | procedure are in the | | | | PDT | | results section. | + +--------+ + + + | CAPILLARY BLOOD | Routin | 02/10/2012 | | Results for this | | GLUCOSE (NO CHG), | e | 10:49 PM | | procedure are in the | | POC | | PDT | | results section. | + +--------+ + + + | X-RAY ABD ACUTE 3 | Urgent | 02/10/2012 | | Results for this | | VIEWS (2 V ABD & 1 V | | 10:38 PM | | procedure are in the | | CXR) | | PDT | | results section. | + +--------+ + + + | RESP CARE THERAPY | Routin | 02/10/2012 | | Results for this | | | e | 8:54 PM | | procedure are in the | | | | PDT | | results section. | + +--------+ + + + | CAPILLARY BLOOD | Routin | 02/10/2012 | | Results for this | | GLUCOSE (NO CHG), | e | 6:25 PM | | procedure are in the | | POC | | PDT | | results section. | + +--------+ + + + | STREP PNEUMONIAE AG, | Routin | 02/10/2012 | | Results for this | | URINE | e | 6:12 PM | | procedure are in the | | | | PDT | | results section. | + +--------+ + + + | BASIC METABOLIC SET | Routin | 02/10/2012 | | Results for this | | (NA, K, CL, TCO2, | e | 6:12 PM | | procedure are in the | | BUN, CR, GLU, CA) | | PDT | | results section. | + +--------+ + + + | LEGIONELLA AG, URINE | Routin | 02/10/2012 | | Results for this | | | e | 6:12 PM | | procedure are in the | | | | PDT | | results section. | + +--------+ + + + | FUNGUS PRELIMINARY 1 | Routin | 02/10/2012 | | Results for this | | | e | 6:11 PM | | procedure are in the | | | | PDT | | results section. | + +--------+ + + + | NOCARDIA CULTURE, | Routin | 02/10/2012 | | Results for this | | RULE OUT | e | 6:11 PM | | procedure are in the | | | | PDT | | results section. | + +--------+ + + + | FUNGAL SMEAR ONLY | Routin | 02/10/2012 | | Results for this | | | e | 6:11 PM | | procedure are in the | | | | PDT | | results section. | + +--------+ + + + | CULTURE, SPUTUM | Routin | 02/10/2012 | | Results for this | | | e | 6:11 PM | | procedure are in the | | | | PDT | | results section. | + +--------+ + + + | CULTURE, SPUTUM | Routin | 02/10/2012 | | Results for this | | | e | 6:11 PM | | procedure are in the | | | | PDT | | results section. | + +--------+ + + + | CULTURE, FUNGAL & | Routin | 02/10/2012 | | Results for this | | SMEAR | e | 6:11 PM | | procedure are in the | | | | PDT | | results section. | + +--------+ + + + | RESP CARE THERAPY | Routin | 02/10/2012 | | Results for this | | | e | 6:00 PM | | procedure are in the | | | | PDT | | results section. | + +--------+ + + + | CULTURE, SPUTUM | Routin | 02/10/2012 | | Results for this | | | e | 4:46 PM | | procedure are in the | | | | PDT | | results section. | + +--------+ + + + | CAPILLARY BLOOD | Routin | 02/10/2012 | | Results for this | | GLUCOSE (NO CHG), | e | 2:43 PM | | procedure are in the | | POC | | PDT | | results section. | + +--------+ + + + | RESPIRATORY VIRUS | Routin | 02/10/2012 | | Results for this | | PANEL BY PCR | e | 2:00 PM | | procedure are in the | | | | PDT | | results section. | + +--------+ + + + | RESP CARE THERAPY | Routin | 02/10/2012 | | Results for this | | | e | 9:00 AM | | procedure are in the | | | | PDT | | results section. | + +--------+ + + + | RESP CARE THERAPY | Routin | 02/10/2012 | | Results for this | | | e | 9:00 AM | | procedure are in the | | | | PDT | | results section. | + +--------+ + + + | CAPILLARY BLOOD | Routin | 02/10/2012 | | Results for this | | GLUCOSE (NO CHG), | e | 8:51 AM | | procedure are in the | | POC | | PDT | | results section. | + +--------+ + + + | TRANSFUSE RED CELLS, | Routin | 02/10/2012 | | | | LEUKOREDUCED | e | 6:58 AM | | | | | | PDT | | | + +--------+ + + + | TRANSFUSE RED CELLS, | Routin | 02/10/2012 | | | | LEUKOREDUCED | e | 6:58 AM | | | | | | PDT | | | + +--------+ + + + | EXTENDED DIFF | Routin | 02/10/2012 | | Results for this | | | e | 4:45 AM | | procedure are in the | | | | PDT | | results section. | + +--------+ + + + | DIFFERENTIAL | Routin | 02/10/2012 | | Results for this | | | e | 4:45 AM | | procedure are in the | | | | PDT | | results section. | + +--------+ + + + | CBC, WITH | Routin | 02/10/2012 | | Results for this | | DIFFERENTIAL | e | 4:45 AM | | procedure are in the | | | | PDT | | results section. | + +--------+ + + + | VANCOMYCIN, RANDOM | Routin | 02/10/2012 | | Results for this | | | e | 4:45 AM | | procedure are in the | | | | PDT | | results section. | + +--------+ + + + | COMPLETE METABOLIC | Routin | 02/10/2012 | | Results for this | | SET | e | 4:45 AM | | procedure are in the | | (NA,K,CL,CO2,BUN,CRE | | PDT | | results section. | | AT,GLUC,CA,AST,ALT,B | | | | | | CAIN TOTAL,ALK | | | | | | PHOS,ALB,PROT TOTAL) | | | | | + +--------+ + + + | PHOSPHORUS, PLASMA | Routin | 02/10/2012 | | Results for this | | | e | 4:45 AM | | procedure are in the | | | | PDT | | results section. | + +--------+ + + + | MAGNESIUM, PLASMA | Routin | 02/10/2012 | | Results for this | | | e | 4:45 AM | | procedure are in the | | | | PDT | | results section. | + +--------+ + + + | TRANSTHORACIC | Routin | 02/10/2012 | | Results for this | | ECHOCARDIOGRAM, | e | 12:00 AM | | procedure are in the | | ADULT | | PDT | | results section. | + +--------+ + + + | CAPILLARY BLOOD | Routin | 02/09/2012 | | Results for this | | GLUCOSE (NO CHG), | e | 10:06 PM | | procedure are in the | | POC | | PDT | | results section. | + +--------+ + + + | CT CHEST WO CONTRAST | Routin | 02/09/2012 | | Results for this | | | e | 6:28 PM | | procedure are in the | | | | PDT | | results section. | + +--------+ + + + | VANCOMYCIN, RANDOM | Routin | 02/09/2012 | | Results for this | | | e | 4:25 PM | | procedure are in the | | | | PDT | | results section. | + +--------+ + + + | METHOTREXATE | Routin | 02/09/2012 | | Results for this | | | e | 4:25 PM | | procedure are in the | | | | PDT | | results section. | + +--------+ + + + | X-RAY CHEST 2 VIEW | Routin | 02/09/2012 | | Results for this | | | e | 3:32 PM | | procedure are in the | | | | PDT | | results section. | + +--------+ + + + | PRODUCT - RED CELLS | Routin | 02/09/2012 | | Results for this | | LEUKOREDUCED | e | 3:07 PM | | procedure are in the | | | | PDT | | results section. | + +--------+ + + + | PRODUCT - RED CELLS | Routin | 02/09/2012 | | Results for this | | LEUKOREDUCED | e | 3:07 PM | | procedure are in the | | | | PDT | | results section. | + +--------+ + + + | TYPE AND SCREEN | Routin | 02/09/2012 | | Results for this | | | e | 3:07 PM | | procedure are in the | | | | PDT | | results section. | + +--------+ + + + | SUKHJINDER (KATLYN) BY PCR | Routin | 02/09/2012 | | Results for this | | | e | 3:04 PM | | procedure are in the | | | | PDT | | results section. | + +--------+ + + + | TOTAL RESULTS | Routin | 02/09/2012 | | Results for this | | FOR,URINE | e | 2:23 PM | | procedure are in the | | | | PDT | | results section. | + +--------+ + + + | SODIUM TOTAL, URINE | Routin | 02/09/2012 | | Results for this | | | e | 2:23 PM | | procedure are in the | | | | PDT | | results section. | + +--------+ + + + | URINE, MICROSCOPIC | Routin | 02/09/2012 | | Results for this | | EXAM | e | 2:23 PM | | procedure are in the | | | | PDT | | results section. | + +--------+ + + + | EOSINOPHILS, URINE | Routin | 02/09/2012 | | Results for this | | (SPOT) | e | 2:23 PM | | procedure are in the | | | | PDT | | results section. | + +--------+ + + + | OSMOLALITY, URINE | Routin | 02/09/2012 | | Results for this | | SPOT | e | 2:23 PM | | procedure are in the | | | | PDT | | results section. | + +--------+ + + + | CREATININE, URINE | Routin | 02/09/2012 | | Results for this | | | e | 2:23 PM | | procedure are in the | | | | PDT | | results section. | + +--------+ + + + | CHLORIDE, URINE | Routin | 02/09/2012 | | Results for this | | | e | 2:23 PM | | procedure are in the | | | | PDT | | results section. | + +--------+ + + + | B-NATRIURETIC | Routin | 02/09/2012 | | Results for this | | PEPTIDE, BLOOD | e | 2:14 PM | | procedure are in the | | | | PDT | | results section. | + +--------+ + + + | CULTURE, BLOOD BACTI | Routin | 02/09/2012 | | Results for this | | & YEAST | e | 2:04 PM | | procedure are in the | | | | PDT | | results section. | + +--------+ + + + | DIFFERENTIAL | Routin | 02/09/2012 | | Results for this | | | e | 2:03 PM | | procedure are in the | | | | PDT | | results section. | + +--------+ + + + | INR | Routin | 02/09/2012 | | Results for this | | | e | 2:03 PM | | procedure are in the | | | | PDT | | results section. | + +--------+ + + + | CBC, WITH | Routin | 02/09/2012 | | Results for this | | DIFFERENTIAL | e | 2:03 PM | | procedure are in the | | | | PDT | | results section. | + +--------+ + + + | COMPLETE METABOLIC | Routin | 02/09/2012 | | Results for this | | SET | e | 2:03 PM | | procedure are in the | | (NA,K,CL,CO2,BUN,CRE | | PDT | | results section. | | AT,GLUC,CA,AST,ALT,B | | | | | | CAIN TOTAL,ALK | | | | | | PHOS,ALB,PROT TOTAL) | | | | | + +--------+ + + + | PHOSPHORUS, PLASMA | Routin | 02/09/2012 | | Results for this | | | e | 2:03 PM | | procedure are in the | | | | PDT | | results section. | + +--------+ + + + | BILIRUBIN DIRECT | Routin | 02/09/2012 | | Results for this | | | e | 2:03 PM | | procedure are in the | | | | PDT | | results section. | + +--------+ + + + | URIC ACID, PLASMA | Routin | 02/09/2012 | | Results for this | | | e | 2:03 PM | | procedure are in the | | | | PDT | | results section. | + +--------+ + + + | MAGNESIUM, PLASMA | Routin | 02/09/2012 | | Results for this | | | e | 2:03 PM | | procedure are in the | | | | PDT | | results section. | + +--------+ + + + | LDH TOTAL, PLASMA | Routin | 02/09/2012 | | Results for this | | | e | 2:03 PM | | procedure are in the | | | | PDT | | results section. | + +--------+ + + + | CHOLESTEROL TOTAL, | Routin | 02/09/2012 | | Results for this | | PLASMA | e | 2:03 PM | | procedure are in the | | | | PDT | | results section. | + +--------+ + + + | OUTSIDE RADIOLOGY | | 02/09/2012 | | Results for this | | REPORTS | | 12:00 AM | | procedure are in the | | | | PDT | | results section. | + +--------+ + + + | OUTSIDE RADIOLOGY | | 02/09/2012 | | Results for this | | REPORTS | | 12:00 AM | | procedure are in the | | | | PDT | | results section. | + +--------+ + + + documented in this encounter Results DIFFERENTIAL (02/21/2012 12:20 AM PDT) + +--------+ + + + | Component | Value | Ref Range | Performed | Pathologist | | | | | At | Signature | + +--------+ + + + | NEUTROPHIL | 80 (H) | 50 - 70 % | [facility] | | | % | | | DEPARTMENT | | | | | | OF | | | | | | PATHOLOGY | | + +--------+ + + + | LYMPHOCYTE | 18 | 18 - 42 % | [facility] [...] +--------+ + + + | NEUTROPHIL | 4.9 | 1.8 - 7.7 K/cu | [facility] | | | # | | mm | DEPARTMENT | | | | | | OF | | | | | | PATHOLOGY | | + +--------+ + + + | LYMPHOCYTE | 1.1 [...] | + + + + + | [facility] DEPARTMENT OF | [id number] | [place] [address] | | | PATHOLOGY | [address] | | | + + + + + VANCOMYCIN, RANDOM (02/21/2012 12:20 AM PDT) + +-------+ + + + | Component | Value | Ref Range | Performed | Pathologist | | | | | At | Signature | + +-------+ + + + | VANCOMYCIN, | 20.3 | 5.0 - 50.0 | [facility] | | | RANDOM | | ug/mL | DEPARTMENT | | [...] DEPARTMENT OF | [address] | [place] [address] | | | PATHOLOGY | [address] | | | + + + + + CBC, WITH DIFFERENTIAL (02/21/2012 12:20 AM PDT) + + + + + [...] + + + + | HEMOGLOBIN | 10.4 (L) | 12.0 - 16.0 | [facility] | | | | | g/dL | DEPARTMENT | | | | | | OF | | | | | | PATHOLOGY | | + + + + + + | HEMATOCRIT | 30.3 (L) | 36.0 - 46.0 % | [facility] | | | | | | DEPARTMENT | | | | | | OF | | | | | | PATHOLOGY | | + + + + + + | MCV | 90.2 | 80.0 - 96.0 fL | [facility] [...] + + + + | PLATELET | 242 | 150 - 400 K/cu | [facility] [...] DEPARTMENT OF | [address] | [place] [address] | | | PATHOLOGY | [address] | | | + + + + + PHOSPHORUS, PLASMA (02/21/2012 12:20 AM PDT) + +-------+ + + + [...] + + + + + | [facility] | [address] | [place] [address] | | | PATHOLOGY | [address] | | | + + + + + MAGNESIUM, PLASMA (02/21/2012 12:20 AM PDT) + +---------+ + + + [...] | + + + + + | [facility] DEPARTMENT OF | [address] | [place] [address] | | | PATHOLOGY | [address] | | | + + + + + COMPLETE METABOLIC SET (NA,K,CL,CO2,BUN,CREAT,GLUC,CA,AST,ALT,BILI TOTAL,ALK PHOS,ALB,PROT TOTAL) (02/21/2012 12:20 AM PDT) + + + + + + | Component | Value | Ref Range | Performed | Pathologist | | | | | At | Signature | + + + + + + | GLUCOSE, | 238 (H) | 60 - 99 mg/dL | [...] + + + + | CREATININE | 4.84 (H) | 0.60 - 1.10 | [facility] [...] + + + + | BILIRUBIN | 0.3 | 0.3 - 1.2 mg/dL | [facility] | | | TOTAL | | | DEPARTMENT | | | | | | OF | | | | | | PATHOLOGY | | + + + + + + | ALK PHOS | 122 (H) | 42 - 98 U/L | [...] DEPARTMENT OF | [id number] | [place] [address] | | | PATHOLOGY | [address] | | | + + + + + DIFFERENTIAL (02/20/2012 12:30 AM PDT) + +---------+ + + + [...] +---------+ + + + | LYMPHOCYTE | 18 | 18 - 42 % | [facility] | | | % | | | DEPARTMENT | | | | | | OF | | | | | | PATHOLOGY | | + +---------+ + + + | MONOCYTE % | 25 (H) | 2 - 8 % | [...] +---------+ + + + | NEUTROPHIL | 3.9 | 1.8 - 7.7 K/cu | [facility] | | | # | | mm | DEPARTMENT | | | | | | OF | | | | | | PATHOLOGY | | + +---------+ + + + | LYMPHOCYTE | 1.2 | 1.0 - 4.8 K/cu | [facility] | | | # | | mm | DEPARTMENT | | | | | | OF | | | | | | PATHOLOGY | | + +---------+ + + + | MONOCYTE # | 1.7 (H) | <0.9 K/cu mm | [facility] | [...] | + + + | * Corrected 02/20/12 05:04: HILARIO COMMENTS, prev report: Slide | [facility] | | review pending. | DEPARTMENT OF | | | PATHOLOGY | + + + + + + + + | Performing | Address | City/State/Zipcode | Phone Number | | Organization | | | | + + + + + | [facility] DEPARTMENT OF | [id number] | [place] [address] | | | PATHOLOGY | [address] | | | + + + + + VANCOMYCIN, RANDOM (02/20/2012 12:30 AM PDT) + +-------+ + + + | Component | Value | Ref Range | Performed | Pathologist | | | | | At | Signature | + +-------+ + + + | VANCOMYCIN, | 26.6 | 5.0 - 50.0 | [facility] | | | RANDOM | | ug/mL | DEPARTMENT | | [...] DEPARTMENT OF | [id number] | [place] [address] | | | PATHOLOGY | [address] | | | + + + + + CBC, WITH DIFFERENTIAL (02/20/2012 12:30 AM PDT) + + + + + [...] + + + + | HEMOGLOBIN | 10.0 (L) | 12.0 - 16.0 | [facility] | | | | | g/dL | DEPARTMENT | | | | | | OF | | | | | | PATHOLOGY | | + + + + + + | HEMATOCRIT | 29.3 (L) | 36.0 - 46.0 % | [facility] | | | | | | DEPARTMENT | | | | | | OF | | | | | | PATHOLOGY | | + + + + + + | MCV | 90.6 | 80.0 - 96.0 fL | [facility] [...] + + + + | PLATELET | 205 | 150 - 400 K/cu | [facility] [...] | + + + | * Corrected 02/20/12 05:04: HILARIO COMMENTS, prev report: Slide | [facility] | | review pending. | DEPARTMENT OF | | | PATHOLOGY | + + + + + + + + | Performing | Address | City/State/Zipcode | Phone Number | | Organization | | | | + + + + + | [facility] DEPARTMENT OF | [address] | [place] [address] | | | PATHOLOGY | [address] | | | + + + + + PHOSPHORUS, PLASMA (02/20/2012 12:30 AM PDT) + +-------+ + + + [...] + + + + + | [facility] | [address] | [place] [address] | | | PATHOLOGY | [address] | | | + + + + + MAGNESIUM, PLASMA (02/20/2012 12:30 AM PDT) + +---------+ + + + | Component | Value | Ref Range | Performed | Pathologist | | | | | At | Signature | + +---------+ + + + | MAGNESIUM,P | 1.6 (L) | 1.8 - 2.5 mg/dL | [...] | + + + + + | [facility] DEPARTMENT OF | [address] | [place] [address] | | | PATHOLOGY | [address] | | | + + + + + COMPLETE METABOLIC SET (NA,K,CL,CO2,BUN,CREAT,GLUC,CA,AST,ALT,BILI TOTAL,ALK PHOS,ALB,PROT TOTAL) (02/20/2012 12:30 AM PDT) + + + + + [...] + + + | BUN, PLASMA | 38 (H) | 6 - 20 mg/dL | [facility] | | | (LAB) | | | DEPARTMENT | | | | | | OF | | | | | | PATHOLOGY | | + + + + + + | CREATININE | 6.38 (H) | 0.60 - 1.10 | [facility] [...] + + + + | BILIRUBIN | 0.3 | 0.3 - 1.2 mg/dL | [facility] | | | TOTAL | | | DEPARTMENT | | | | | | OF | | | | | | PATHOLOGY | | + + + + + + | ALK PHOS | 123 (H) | 42 - 98 U/L | [...] + + | [facility] DEPARTMENT OF | [address] | [place] [address] | | | PATHOLOGY | [address] | | | + + + + + DIFFERENTIAL (02/19/2012 12:33 AM PDT) + +---------+ + + + | Component | Value | Ref Range | Performed | Pathologist | | | | | At | Signature | + +---------+ + + + | NEUTROPHIL | 54 | 50 - 70 % | [facility] | | | % | | | DEPARTMENT | | | | | | OF | | | | | | PATHOLOGY | | + +---------+ + + + | LYMPHOCYTE | 20 | 18 - 42 % | [facility] | | | % | | | DEPARTMENT | | | | | | OF | | | | | | PATHOLOGY | | + +---------+ + + + | MONOCYTE % | 26 (H) | 2 - 8 % | [...] +---------+ + + + | NEUTROPHIL | 3.3 | 1.8 - 7.7 K/cu | [facility] | | | # | | mm | DEPARTMENT | | | | | | OF | | | | | | PATHOLOGY | | + +---------+ + + + | LYMPHOCYTE | 1.2 | 1.0 - 4.8 K/cu | [facility] | | | # | | mm | DEPARTMENT | | | | | | OF | | | | | | PATHOLOGY | | + +---------+ + + + | MONOCYTE # | 1.6 (H) | <0.9 K/cu mm | [facility] | [...] | + + + | * Corrected 02/19/12 08:28: HILARIO COMMENTS, prev report: Slide | [facility] | | review pending. | DEPARTMENT OF | | | PATHOLOGY | + + + + + + + + | Performing | Address | City/State/Zipcode | Phone Number | | Organization | | | | + + + + + | [facility] DEPARTMENT OF | [address] | [place] [address] | | | PATHOLOGY | [address] | | | + + + + + VANCOMYCIN, RANDOM (02/19/2012 12:33 AM PDT) + +-------+ + + + | Component | Value | Ref Range | Performed | Pathologist | | | | | At | Signature | + +-------+ + + + | VANCOMYCIN, | 31.4 | 5.0 - 50.0 | [facility] | | | RANDOM | | ug/mL | DEPARTMENT | | [...] [facility] DEPARTMENT | [address] | [place] [address] | | | PATHOLOGY | [address] | | | + + + + + CBC, WITH DIFFERENTIAL (02/19/2012 12:33 AM PDT) + + + + + + | Component | Value | Ref Range | Performed | Pathologist | | | | | At | Signature | + + + + + + | WHITE CELL | 6.2 | 4.4 - 11.0 K/cu | [facility] | | | COUNT | | mm | DEPARTMENT | | | | | | OF | | | | | | PATHOLOGY | | + + + + + + | RED CELL | 3.00 (L) | 4.00 - 5.20 | [facility] | | | COUNT | | M/cu mm | DEPARTMENT | | | | | | OF | | | | | | PATHOLOGY | | + + + + + + | HEMOGLOBIN | 9.5 (L) | 12.0 - 16.0 | [facility] | | | | | g/dL | DEPARTMENT | | | | | | OF | | | | | | PATHOLOGY | | + + + + + + | HEMATOCRIT | 27.3 (L) | 36.0 - 46.0 % | [facility] | | | | | | DEPARTMENT | | | | | | OF | | | | | | PATHOLOGY | | + + + + + + | MCV | 91.1 | 80.0 - 96.0 fL | [facility] [...] + + + + | PLATELET | 185 | 150 - 400 K/cu | [facility] [...] | + + + | * Corrected 02/19/12 08:28: HILARIO COMMENTS, prev report: Slide | [facility] | | review pending. | DEPARTMENT OF | | | PATHOLOGY | + + + + + + + + | Performing | Address | City/State/Zipcode | Phone Number | | Organization | | | | + + + + + | [facility] DEPARTMENT OF | [address] | [place] [address] | | | PATHOLOGY | [address] | | | + + + + + PHOSPHORUS, PLASMA (02/19/2012 12:33 AM PDT) + +---------+ + + + | Component | Value | Ref Range | Performed | Pathologist | | | | | At | Signature | + +---------+ + + + | PHOSPHORUS, | 4.9 (H) | 2.4 - 4.7 mg/dL | [...] + + + + + | [facility] | [address] | [place] [address] | | | PATHOLOGY | [address] | | | + + + + + MAGNESIUM, PLASMA (02/19/2012 12:33 AM PDT) + +---------+ + + + [...] | + + + + + | [facility] DEPARTMENT OF | [address] | [place] [address] | | | PATHOLOGY | [address] | | | + + + + + COMPLETE METABOLIC SET (NA,K,CL,CO2,BUN,CREAT,GLUC,CA,AST,ALT,BILI TOTAL,ALK PHOS,ALB,PROT TOTAL) (02/19/2012 12:33 AM PDT) + + + + + [...] + + + | BUN, PLASMA | 43 (H) | 6 - 20 mg/dL | [facility] | | | (LAB) | | | DEPARTMENT | | | | | | OF | | | | | | PATHOLOGY | | + + + + + + | CREATININE | 7.81 (H) | 0.60 - 1.10 | [facility] [...] + + + + | ALBUMIN, | 2.4 [...] + + + | ALK PHOS | 110 (H) | 42 - 98 U/L | [facility] | | | | | | DEPARTMENT | | | | | | OF | | | | | | PATHOLOGY | | + + + + + + | AST(SGOT) | 9 (L) | 15 - 41 U/L | [...] + + + + | CHLORIDE, | 109 [...] + + + | ALT (SGPT) | 8 (L) | 13 - 48 U/L | [...] DEPARTMENT OF | [address] | [place] [address] | | | PATHOLOGY | [address] | | | + + + + + EXTENDED DIFF (02/18/2012 12:01 AM PDT) + +-------+ + + + | Component | Value | Ref Range | Performed | Pathologist | | | | | At | Signature | + +-------+ + + + | METAMYELOCY | 1 | % | [facility] | | | MICHEAL % | | | DEPARTMENT | | | | | | OF | | | | | | PATHOLOGY | | + +-------+ + + + | MYELOCYTES | 1 | % | [facility] | | | % | | | DEPARTMENT | | | | | | OF | | | | | | PATHOLOGY | | + +-------+ + + + | NRBC | 0 | <1 /100 WBC | [facility] | | | | | | DEPARTMENT | | | | | | OF | | | | | | PATHOLOGY | | + +-------+ + + + | BANDS # | 0.6 | 0.0 - 1.1 | [facility] | | | | | | DEPARTMENT | | | | | | OF | | | | | | PATHOLOGY | | + +-------+ + + + | BANDS % | 9 | <11 % | [facility] | | | | | | DEPARTMENT | | | | | | OF | | | | | | PATHOLOGY | | + +-------+ + + + | ATYPICAL | 0 | | [facility] | | | CELL % | | | DEPARTMENT | | | | | | OF | | | | | | PATHOLOGY | | + +-------+ + + + | PROMYELOCYT | 0 [...] | + + + | * Corrected 02/18/12 02:08: HILARIO COMMENTS, prev report: Slide | [facility] | | review pending. | DEPARTMENT OF | | | PATHOLOGY | + + + + + + + + | Performing | Address | City/State/Zipcode | Phone Number | | Organization | | | | + + + + + | [facility] DEPARTMENT OF | [address] | [place] [address] | | | PATHOLOGY | [address] | | | + + + + + DIFFERENTIAL (02/18/2012 12:01 AM PDT) + +---------+ + + + | Component | Value | Ref Range | Performed | Pathologist | | | | | At | Signature | + +---------+ + + + | NEUTROPHIL | 55 | 50 - 70 % | [facility] [...] + + + | MONOCYTE % | 20 (H) | 2 - 8 % | [...] +---------+ + + + | NEUTROPHIL | 3.4 | 1.8 - 7.7 K/cu | [facility] | | | # | | mm | DEPARTMENT | | | | | | OF | | | | | | PATHOLOGY | | + +---------+ + + + | LYMPHOCYTE | 0.9 (L) | 1.0 - 4.8 K/cu | [facility] | | | # | | mm | DEPARTMENT | | | | | | OF | | | | | | PATHOLOGY | | + +---------+ + + + | MONOCYTE # | 1.2 (H) | <0.9 K/cu mm | [facility] | [...] | + + + | * Corrected 02/18/12 02:08: HILARIO COMMENTS, prev report: Slide | [facility] | | review pending. | DEPARTMENT OF | | | PATHOLOGY | + + + + + + + + | Performing | Address | City/State/Zipcode | Phone Number | | Organization | | | | + + + + + | [facility] DEPARTMENT OF | [address] | [place] [address] | | | PATHOLOGY | [address] | | | + + + + + VANCOMYCIN, RANDOM (02/18/2012 12:01 AM PDT) + +-------+ + + + | Component | Value | Ref Range | Performed | Pathologist | | | | | At | Signature | + +-------+ + + + | VANCOMYCIN, | 38.3 | 5.0 - 50.0 | [facility] | | | RANDOM | | ug/mL | DEPARTMENT | | [...] DEPARTMENT OF | [address] | [place] [address] | | | PATHOLOGY | [address] | | | + + + + + CBC, WITH DIFFERENTIAL (02/18/2012 12:01 AM PDT) + + + + + + | Component | Value | Ref Range | Performed | Pathologist | | | | | At | Signature | + + + + + + | WHITE CELL | 6.2 | 4.4 - 11.0 K/cu | [facility] [...] + + + + | HEMOGLOBIN | 9.9 (L) | 12.0 - 16.0 | [facility] | | | | | g/dL | DEPARTMENT | | | | | | OF | | | | | | PATHOLOGY | | + + + + + + | HEMATOCRIT | 28.9 (L) | 36.0 - 46.0 % | [facility] | | | | | | DEPARTMENT | | | | | | OF | | | | | | PATHOLOGY | | + + + + + + | MCV | 90.9 | 80.0 - 96.0 fL | [facility] [...] + + + + | RDW | 14.8 | 11.5 - 15.0 % | [facility] | | | | | | DEPARTMENT | | | | | | OF | | | | | | PATHOLOGY | | + + + + + + | PLATELET | 169 | 150 - 400 K/cu | [facility] [...] + + + + | DIFF | Vacuolated Polys | | [facility] | | | COMMENTS | present. | | DEPARTMENT | | | | | | OF | | | | | | PATHOLOGY | | + + + + + + + + | Specimen | + + | Blood - Blood | + + + + + | Narrative | Performed At | + + + | * Corrected 02/18/12 02:08: HILARIO STILL, prev report: Slide | [facility] | | review pending. | DEPARTMENT OF | | | PATHOLOGY | + + + + + + + + | Performing | Address | City/State/Zipcode | Phone Number | | Organization | | | | + + + + + | [facility] | [address] | [place] [address] | | | PATHOLOGY | [address] | | | + + + + + CHOLESTEROL TOTAL, PLASMA (02/18/2012 12:01 AM PDT) + + + + + + | Component | Value | Ref Range | Performed | Pathologist | | | | | At | Signature | + + + + + + | CHOLESTEROL | 120Comment: | <200 mg/dL | [facility] | | [...] | + + + + + | [facility] DEPARTMENT | [address] | [place] [address] | | | PATHOLOGY | [address] | | | + + + + + LDH TOTAL, PLASMA (02/18/2012 12:01 AM PDT) + +---------+ + + + [...] + + + + + | [facility] | [address] | [place] [address] | | | PATHOLOGY | [address] | | | + + + + + BILIRUBIN DIRECT (02/18/2012 12:01 AM PDT) + +-------+ + + + [...] + + | [facility] DEPARTMENT OF | [address] | [place] [address] | | | PATHOLOGY | [address] | | | + + + + + URIC ACID, PLASMA (02/18/2012 12:01 AM PDT) + +---------+ + + + [...] | + + + + + | [facility] DEPARTMENT OF | [address] | [place] [address] | | | PATHOLOGY | [address] | | | + + + + + PHOSPHORUS, PLASMA (02/18/2012 12:01 AM PDT) + +-------+ + + + [...] + + + + + | [facility] | [address] | [place] [address] | | | PATHOLOGY | [address] | | | + + + + + MAGNESIUM, PLASMA (02/18/2012 12:01 AM PDT) + +-------+ + + + [...] | + + + + + | [facility] DEPARTMENT OF | [address] | [place] [address] | | | PATHOLOGY | [address] | | | + + + + + COMPLETE METABOLIC SET (NA,K,CL,CO2,BUN,CREAT,GLUC,CA,AST,ALT,BILI TOTAL,ALK PHOS,ALB,PROT TOTAL) (02/18/2012 12:01 AM PDT) + + + + + + | Component | Value | Ref Range | Performed | Pathologist | | | | | At | Signature | + + + + + + | GLUCOSE, | 94 | 60 - 99 mg/dL | [facility] | | | PLASMA | | | DEPARTMENT | | | (LAB) | | | OF | | | | | | PATHOLOGY | | + + + + + + | BUN, PLASMA | 45 (H) | 6 - 20 mg/dL | [facility] | | | (LAB) | | | DEPARTMENT | | | | | | OF | | | | | | PATHOLOGY | | + + + + + + | CREATININE | 8.78 (H) | 0.60 - 1.10 | [facility] [...] + + + + | ALBUMIN, | 2.3 (L) | 3.5 - 4.7 g/dL | [...] + + + | ALK PHOS | 105 (H) | 42 - 98 U/L | [facility] | | | | | | DEPARTMENT | | | | | | OF | | | | | | PATHOLOGY | | + + + + + + | AST(SGOT) | 9 (L) | 15 - 41 U/L | [...] + + + | ALT (SGPT) | 7 (L) | 13 - 48 U/L | [...] + + + + | ANION | 13 [...] DEPARTMENT OF | [address] | [place] [address] | | | PATHOLOGY | [address] | | | + + + + + DIFFERENTIAL (02/17/2012 12:10 AM PDT) + +---------+ + + + | Component | Value | Ref Range | Performed | Pathologist | | | | | At | Signature | + +---------+ + + + | NEUTROPHIL | 51 | 50 - 70 % | [facility] | | | % | | | DEPARTMENT | | | | | | OF | | | | | | PATHOLOGY | | + +---------+ + + + | LYMPHOCYTE | 18 | 18 - 42 % | [facility] | | | % | | | DEPARTMENT | | | | | | OF | | | | | | PATHOLOGY | | + +---------+ + + + | MONOCYTE % | 30 (H) | 2 - 8 % | [...] +---------+ + + + | NEUTROPHIL | 2.8 | 1.8 - 7.7 K/cu | [facility] | | | # | | mm | DEPARTMENT | | | | | | OF | | | | | | PATHOLOGY | | + +---------+ + + + | LYMPHOCYTE | 1.0 | 1.0 - 4.8 K/cu | [facility] | | | # | | mm | DEPARTMENT | | | | | | OF | | | | | | PATHOLOGY | | + +---------+ + + + | MONOCYTE # | 1.7 (H) | <0.9 K/cu mm | [facility] | [...] | + + + | * Corrected 02/17/12 02:39: HILARIO STILL, prev report: Gabriella | [facility] | | review pending. | DEPARTMENT OF | | | PATHOLOGY | + + + + + + + + | Performing | Address | City/State/Zipcode | Phone Number | | Organization | | | | + + + + + | [facility] DEPARTMENT OF | [address] | [place] [address] | | | PATHOLOGY | [address] | | | + + + + + VANCOMYCIN, RANDOM (02/17/2012 12:10 AM PDT) + +-------+ + + + | Component | Value | Ref Range | Performed | Pathologist | | | | | At | Signature | + +-------+ + + + | VANCOMYCIN, | 39.1 | 5.0 - 50.0 | [facility] | | | RANDOM | | ug/mL | DEPARTMENT | | [...] DEPARTMENT OF | [address] | [place] [address] | | | PATHOLOGY | [address] | | | + + + + + CBC, WITH DIFFERENTIAL (02/17/2012 12:10 AM PDT) + + + + + + | Component | Value | Ref Range | Performed | Pathologist | | | | | At | Signature | + + + + + + | WHITE CELL | 5.5 | 4.4 - 11.0 K/cu | [facility] [...] + + + + | HEMOGLOBIN | 9.5 (L) | 12.0 - 16.0 | [facility] | | | | | g/dL | DEPARTMENT | | | | | | OF | | | | | | PATHOLOGY | | + + + + + + | HEMATOCRIT | 27.5 (L) | 36.0 - 46.0 % | [facility] | | | | | | DEPARTMENT | | | | | | OF | | | | | | PATHOLOGY | | + + + + + + | MCV | 89.8 | 80.0 - 96.0 fL | [facility] [...] + + + + | RDW | 14.6 | 11.5 - 15.0 % | [facility] | | | | | | DEPARTMENT | | | | | | OF | | | | | | PATHOLOGY | | + + + + + + | PLATELET | 151 | 150 - 400 K/cu | [facility] [...] | + + + | * Corrected 02/17/12 02:39: RACHAELNEL COMMENTS, prev report: Slide | [facility] | | review pending. | DEPARTMENT OF | | | PATHOLOGY | + + + + + + + + | Performing | Address | City/State/Zipcode | Phone Number | | Organization | | | | + + + + + | [facility] | [address] | [place] [address] | | | PATHOLOGY | [address] | | | + + + + + PHOSPHORUS, PLASMA (02/17/2012 12:10 AM PDT) + +-------+ + + + | Component | Value | Ref Range | Performed | Pathologist | | | | | At | Signature | + +-------+ + + + | PHOSPHORUS, | 4.7 | 2.4 - 4.7 mg/dL | [facility] | | | PLASMA | | | [...] | + + + + + | [facility] DEPARTMENT OF | [address] | [place] [address] | | | PATHOLOGY | [address] | | | + + + + + MAGNESIUM, PLASMA (02/17/2012 12:10 AM PDT) + +---------+ + + + | Component | Value | Ref Range | Performed | Pathologist | | | | | At | Signature | + +---------+ + + + | MAGNESIUM,P | 1.6 (L) | 1.8 - 2.5 mg/dL | [...] | + + + + + | [facility] DEPARTMENT | [address] | [place] [address] | | | PATHOLOGY | [address] | | | + + + + + COMPLETE METABOLIC SET (NA,K,CL,CO2,BUN,CREAT,GLUC,CA,AST,ALT,BILI TOTAL,ALK PHOS,ALB,PROT TOTAL) (02/17/2012 12:10 AM PDT) + + + + + + | Component | Value | Ref Range | Performed | Pathologist | | | | | At | Signature | + + + + + + | GLUCOSE, | 88 | 60 - 99 mg/dL | [facility] | | | PLASMA | | | DEPARTMENT | | | (LAB) | | | OF | | | | | | PATHOLOGY | | + + + + + + | BUN, PLASMA | 47 (H) | 6 - 20 mg/dL | [facility] | | | (LAB) | | | DEPARTMENT | | | | | | OF | | | | | | PATHOLOGY | | + + + + + + | CREATININE | 9.37 (H) | 0.60 - 1.10 | [facility] [...] + + + + | ALBUMIN, | 2.2 (L) | 3.5 - 4.7 g/dL | [...] + + + + | AST(SGOT) | 8 (L) | 15 - 41 U/L | [...] + + + | ALT (SGPT) | 5 (L) | 13 - 48 U/L | [...] + + + + | ANION | 14 (H) | 4 - 11 [...] + + + + + | [facility] | [address] | [place] [address] | | | PATHOLOGY | [address] | | | + + + + + RESP CARE THERAPY (02/16/2012 12:23 AM PDT) + + + + +----- ---------+ | Component | Value | Ref Range | Performed | Path ologist | | | | | At | Sign ature | + + + + +----- ---------+ | RESPIRATORY | Nasal cannula at 2 LPM. | | [facility] | | | CARE | Electronically | | RESPIRATORY | | | | Signed by: Anastacia | | THERAPY | | | | ANSHUL Webster | | | | | | | | | | | | | | | | | | | | | | | | | | | | | | | | | | | |Electronically Signed by: Anastacia Webster RCP | | | | + + + + +----- ---------+ + + | Specimen | + + | | + + + + + + + | Performing | Address | City/State/Zipcode | Phone Number | | Organization | | | | + + + + + | [facility] RESPIRATORY | [address] | [place], [place] | | | THERAPY | [address] | [address] | | + + + + + DIFFERENTIAL (02/16/2012 12:08 AM PDT) + +---------+ + + + | Component | Value | Ref Range | Performed | Pathologist | | | | | At | Signature | + +---------+ + + + | NEUTROPHIL | 64 | 50 - 70 % | [facility] | | | % | | | DEPARTMENT | | | | | | OF | | | | | | PATHOLOGY | | + +---------+ + + + | LYMPHOCYTE | 11 (L) | 18 - 42 % | [facility] | | | % | | | DEPARTMENT | | | | | | OF | | | | | | PATHOLOGY | | + +---------+ + + + | MONOCYTE % | 24 (H) | 2 - 8 % | [...] +---------+ + + + | NEUTROPHIL | 3.7 | 1.8 - 7.7 K/cu | [facility] | | | # | | mm | DEPARTMENT | | | | | | OF | | | | | | PATHOLOGY | | + +---------+ + + + | LYMPHOCYTE | 0.6 (L) | 1.0 - 4.8 K/cu | [facility] | | | # | | mm | DEPARTMENT | | | | | | OF | | | | | | PATHOLOGY | | + +---------+ + + + | MONOCYTE # | 1.4 (H) | <0.9 K/cu mm | [facility] | [...] | + + + | * Corrected 02/16/12 06:21: RACHAELNEL COMMENTS, prev report: Slide | [facility] | | review pending. | DEPARTMENT OF | | | PATHOLOGY | + + + + + + + + | Performing | Address | City/State/Zipcode | Phone Number | | Organization | | | | + + + + + | [facility] | [address] | [place] [address] | | | PATHOLOGY | [address] | | | + + + + + VANCOMYCIN, RANDOM (02/16/2012 12:08 AM PDT) + +-------+ + + + | Component | Value | Ref Range | Performed | Pathologist | | | | | At | Signature | + +-------+ + + + | VANCOMYCIN, | 40.9 | 5.0 - 50.0 | [facility] | | | RANDOM | | ug/mL | DEPARTMENT | | [...] | + + + + + | [facility] DEPARTMENT OF | [address] | [place] [address] | | | PATHOLOGY | [address] | | | + + + + + CBC, WITH DIFFERENTIAL (02/16/2012 12:08 AM PDT) + + + + + + | Component | Value | Ref Range | Performed | Pathologist | | | | | At | Signature | + + + + + + | WHITE CELL | 5.8 | 4.4 - 11.0 K/cu | [facility] | | | COUNT | | mm | DEPARTMENT | | | | | | OF | | | | | | PATHOLOGY | | + + + + + + | RED CELL | 3.13 (L) | 4.00 - 5.20 | [facility] | | | COUNT | | M/cu mm | DEPARTMENT | | | | | | OF | | | | | | PATHOLOGY | | + + + + + + | HEMOGLOBIN | 9.8 (L) | 12.0 - 16.0 | [facility] | | | | | g/dL | DEPARTMENT | | | | | | OF | | | | | | PATHOLOGY | | + + + + + + | HEMATOCRIT | 28.5 (L) | 36.0 - 46.0 % | [facility] | | | | | | DEPARTMENT | | | | | | OF | | | | | | PATHOLOGY | | + + + + + + | MCV | 91.1 | 80.0 - 96.0 fL | [facility] [...] + + + + | RDW | 14.7 | 11.5 - 15.0 % | [facility] | | | | | | DEPARTMENT | | | | | | OF | | | | | | PATHOLOGY | | + + + + + + | PLATELET | 137 (L) | 150 - 400 K/cu | [...] | + + + | * Corrected 02/16/12 06:21: HILARIO COMMENTS, prev report: Slide | [facility] | | review pending. | DEPARTMENT OF | | | PATHOLOGY | + + + + + + + + | Performing | Address | City/State/Zipcode | Phone Number | | Organization | | | | + + + + + | [facility] | [address] | [place], [place] [address] | | | PATHOLOGY | [address] | | | + + + + + PHOSPHORUS, PLASMA (02/16/2012 12:08 AM PDT) + +-------+ + + + [...] + + + + + | [facility] | [address] | [place] [address] | | | PATHOLOGY | [address] | | | + + + + + MAGNESIUM, PLASMA (02/16/2012 12:08 AM PDT) + +---------+ + + + | Component | Value | Ref Range | Performed | Pathologist | | | | | At | Signature | + +---------+ + + + | MAGNESIUM,P | 1.7 (L) | 1.8 - 2.5 mg/dL | [facility] | | | LASMA | | [...] | + + + + + | [facility] DEPARTMENT OF | [address] | [place] [address] | | | PATHOLOGY | [address] | | | + + + + + COMPLETE METABOLIC SET (NA,K,CL,CO2,BUN,CREAT,GLUC,CA,AST,ALT,BILI TOTAL,ALK PHOS,ALB,PROT TOTAL) (02/16/2012 12:08 AM PDT) + + + + + + | Component | Value | Ref Range | Performed | Pathologist | | | | | At | Signature | + + + + + + | GLUCOSE, | 82 | 60 - 99 mg/dL | [facility] | | | PLASMA | | | DEPARTMENT | | | (LAB) | | | OF | | | | | | PATHOLOGY | | + + + + + + | BUN, PLASMA | 42 (H) | 6 - 20 mg/dL | [facility] | | | (LAB) | | | DEPARTMENT | | | | | | OF | | | | | | PATHOLOGY | | + + + + + + | CREATININE | 9.03 (H) | 0.60 - 1.10 | [facility] | | | PLASMA | | mg/dL | DEPARTMENT | | | (LAB) | | | OF | | | | | | PATHOLOGY | | + + + + + + | TOTAL | 5.0 (L) | 6.1 - 7.9 g/dL | [facility] | | | PROTEIN, | | | DEPARTMENT | | | PLASMA | | | OF | | | (LAB) | | | PATHOLOGY | | + + + + + + | ALBUMIN, | 2.2 (L) | 3.5 - 4.7 g/dL | [...] + + + | ALK PHOS | 110 (H) | 42 - 98 U/L | [facility] | | | | | | DEPARTMENT | | | | | | OF | | | | | | PATHOLOGY | | + + + + + + | AST(SGOT) | 8 (L) | 15 - 41 U/L | [...] + + + | ALT (SGPT) | 7 (L) | 13 - 48 U/L | [...] + + + + | ANION | 13 [...] DEPARTMENT OF | [address] | [place] [address] | | | PATHOLOGY | [address] | | | + + + + + RESP CARE THERAPY (02/15/2012 1:52 AM PDT) + + + + +--------- -----+ | Component | Value | Ref Range | Performed | Patholog ist | | | | | At | Signatur e | + + + + +--------- -----+ | RESPIRATORY | Nasal cannula at 2 LPM. | | [facility] | | | CARE | Electronically | | RESPIRATORY | | | | Signed by: Jonathan GRIFFIN | | | | Isabel, | | [...] + + | [facility] RESPIRATORY | [address] | [place], [place] | | | THERAPY | [address] | [id number] | | + + + + + CHOLESTEROL TOTAL, PLASMA (02/15/2012 12:07 AM PDT) + + + + + + | Component | Value | Ref Range | Performed | Pathologist | | | | | At | Signature | + + + + + + | CHOLESTEROL | 101Comment: | <200 mg/dL | [facility] | | [...] [facility] DEPARTMENT | [address] | [place] [address] | | | PATHOLOGY | [address] | | | + + + + + DIFFERENTIAL (02/15/2012 12:07 AM PDT) + +---------+ + + + | Component | Value | Ref Range | Performed | Pathologist | | | | | At | Signature | + +---------+ + + + | NEUTROPHIL | 49 (L) | 50 - 70 % | [facility] | | | % | | | DEPARTMENT | | | | | | OF | | | | | | PATHOLOGY | | + +---------+ + + + | LYMPHOCYTE | 17 (L) | 18 - 42 % | [facility] | | | % | | | DEPARTMENT | | | | | | OF | | | | | | PATHOLOGY | | + +---------+ + + + | MONOCYTE % | 33 (H) | 2 - 8 % | [...] +---------+ + + + | NEUTROPHIL | 2.5 | 1.8 - 7.7 K/cu | [facility] | | | # | | mm | DEPARTMENT | | | | | | OF | | | | | | PATHOLOGY | | + +---------+ + + + | LYMPHOCYTE | 0.9 (L) | 1.0 - 4.8 K/cu | [facility] | | | # | | mm | DEPARTMENT | | | | | | OF | | | | | | PATHOLOGY | | + +---------+ + + + | MONOCYTE # | 1.7 (H) | <0.9 K/cu mm | [facility] | [...] | + + + | * Corrected 02/15/12 02:28: RACHAELNEL COMMENTS, prev report: Slide | [facility] | | review pending. | DEPARTMENT OF | | | PATHOLOGY | + + + + + + + + | Performing | Address | City/State/Zipcode | Phone Number | | Organization | | | | + + + + + | [facility] DEPARTMENT | [address] | [place] [address] | | | PATHOLOGY | [address] | | | + + + + + VANCOMYCIN, RANDOM (02/15/2012 12:07 AM PDT) + +-------+ + + + | Component | Value | Ref Range | Performed | Pathologist | | | | | At | Signature | + +-------+ + + + | VANCOMYCIN, | 47.5 | 5.0 - 50.0 | [facility] | | | RANDOM | | ug/mL | DEPARTMENT | | [...] + + + + + | [facility] | [address] | [place] [address] | | | PATHOLOGY | [address] | | | + + + + + INR (02/15/2012 12:07 AM PDT) + + + + + + | Component | Value | Ref Range | Performed | Pathologist | | | | | At | Signature | + + + + + + | INR | 1.31 (H)Comment: | 0.90 - 1.20 INR | [facility] | | | | INR Therapeutic ranges [...] | + + + + + | [facility] DEPARTMENT OF | [address] | [place] [address] | | | PATHOLOGY | [address] | | | + + + + + CBC, WITH DIFFERENTIAL (02/15/2012 12:07 AM PDT) + + + + + + | Component | Value | Ref Range | Performed | Pathologist | | | | | At | Signature | + + + + + + | WHITE CELL | 5.1 | 4.4 - 11.0 K/cu | [facility] [...] + + + + | HEMOGLOBIN | 10.1 (L) | 12.0 - 16.0 | [facility] [...] + + | MCV | 89.4 | 80.0 - 96.0 fL | [facility] | | | | | | DEPARTMENT | | | | | | OF | | | | | | PATHOLOGY | | + + + + + + | MCHC | 35.0 | 33.4 - 35.5 | [facility] | | | | | g/dL | DEPARTMENT | | | | | | OF | | | | | | PATHOLOGY | | + + + + + + | RDW | 14.9 | 11.5 - 15.0 % | [facility] | | | | | | DEPARTMENT | | | | | | OF | | | | | | PATHOLOGY | | + + + + + + | PLATELET | 122 (L) | 150 - 400 K/cu | [...] | + + + | * Corrected 02/15/12 02:28: HILARIO COMMENTS, prev report: Slide | [facility] | | review pending. | DEPARTMENT OF | | | PATHOLOGY | + + + + + + + + | Performing | Address | City/State/Zipcode | Phone Number | | Organization | | | | + + + + + | [facility] DEPARTMENT OF | [address] | [place] [address] | | | PATHOLOGY | [address] | | | + + + + + CHOLESTEROL TOTAL, PLASMA (02/15/2012 12:07 AM PDT) + + + + + + | Component | Value | Ref Range | Performed | Pathologist | | | | | At | Signature | + + + + + + | CHOLESTEROL | Combined. | <200 mg/dL | [facility] | | [...] + + + + + | [facility] | [address] | [place] [address] | | | PATHOLOGY | [address] | | | + + + + + LDH TOTAL, PLASMA (02/15/2012 12:07 AM PDT) + +---------+ + + + [...] DEPARTMENT OF | [address] | [place] [address] | | | PATHOLOGY | [address] | | | + + + + + BILIRUBIN DIRECT (02/15/2012 12:07 AM PDT) + +-------+ + + + | Component | Value | Ref Range | Performed | Pathologist | | | | | At | Signature | + +-------+ + + + | BILIRUBIN | 0.1 | <0.4 mg/dL | [facility] | | | DIRECT | | [...] | + + + + + | [facility] DEPARTMENT OF | [address] | [place] [address] | | | PATHOLOGY | [address] | | | + + + + + URIC ACID, PLASMA (02/15/2012 12:07 AM PDT) + +---------+ + + + | Component | Value | Ref Range | Performed | Pathologist | | | | | At | Signature | + +---------+ + + + | URIC ACID, | 6.6 (H) | 2.5 - 6.2 mg/dL | [...] + + + + + | [facility] | [address] | [place] [address] | | | PATHOLOGY | [address] | | | + + + + + PHOSPHORUS, PLASMA (02/15/2012 12:07 AM PDT) + +---------+ + + + [...] | + + + + + | [facility] DEPARTMENT OF | [address] | [place] [address] | | | PATHOLOGY | [address] | | | + + + + + MAGNESIUM, PLASMA (02/15/2012 12:07 AM PDT) + +-------+ + + + [...] | + + + + + | [facility] DEPARTMENT OF | [address] | [place] [address] | | | PATHOLOGY | [address] | | | + + + + + COMPLETE METABOLIC SET (NA,K,CL,CO2,BUN,CREAT,GLUC,CA,AST,ALT,BILI TOTAL,ALK PHOS,ALB,PROT TOTAL) (02/15/2012 12:07 AM PDT) + + + + + + | Component | Value | Ref Range | Performed | Pathologist | | | | | At | Signature | + + + + + + | GLUCOSE, | 82 | 60 - 99 mg/dL | [facility] | | | PLASMA | | | DEPARTMENT | | | (LAB) | | | OF | | | | | | PATHOLOGY | | + + + + + + | BUN, PLASMA | 40 (H) | 6 - 20 mg/dL | [facility] | | | (LAB) | | | DEPARTMENT | | | | | | OF | | | | | | PATHOLOGY | | + + + + + + | CREATININE | 8.99 (H) | 0.60 - 1.10 | [facility] | | | PLASMA | | mg/dL | DEPARTMENT | | | (LAB) | | | OF | | | | | | PATHOLOGY | | + + + + + + | TOTAL | 4.9 (L) | 6.1 - 7.9 g/dL | [facility] | | | PROTEIN, | | | DEPARTMENT | | | PLASMA | | | OF | | | (LAB) | | | PATHOLOGY | | + + + + + + | ALBUMIN, | 2.1 (L) | 3.5 - 4.7 g/dL | [...] + + + | ALK PHOS | 112 (H) | 42 - 98 U/L | [facility] | | | | | | DEPARTMENT | | | | | | OF | | | | | | PATHOLOGY | | + + + + + + | AST(SGOT) | 10 (L) | 15 - 41 U/L | [...] + + + | ALT (SGPT) | 7 (L) | 13 - 48 U/L | [...] + + + + | ANION | 15 (H) | 4 - 11 mmol/L | [...] | + + + + + | [facility] DEPARTMENT | [address] | [place] [address] | | | PATHOLOGY | [address] | | | + + + + + RESP CARE THERAPY (02/14/2012 12:50 AM PDT) + + + + +--------- -----+ | Component | Value | Ref Range | Performed | Patholog ist | | | | | At | Signatur e | + + + + +--------- -----+ | RESPIRATORY | Nasal cannula at 4 LPM. | | [facility] | | | CARE | Electronically | | RESPIRATORY | | | | Signed by: Jonathan | | THERAPY | | | | Isabel, | | [...] + + | [facility] RESPIRATORY | [address] | [place], [place] | | | THERAPY | [address] | [id number] | | + + + + + EXTENDED DIFF (02/14/2012 12:22 AM PDT) + +-------+ + + + | Component | Value | Ref Range | Performed | Pathologist | | | | | At | Signature | + +-------+ + + + | METAMYELOCY | 0 | % | [facility] | | | MICHEAL % | | | DEPARTMENT | | | | | | OF | | | | | | PATHOLOGY | | + +-------+ + + + | MYELOCYTES | 0 | % | [facility] | | | % | | | DEPARTMENT | | | | | | OF | | | | | | PATHOLOGY | | + +-------+ + + + | NRBC | 0 | <1 /100 WBC | [facility] | | | | | | DEPARTMENT | | | | | | OF | | | | | | PATHOLOGY | | + +-------+ + + + | BANDS # | 0.1 | 0.0 - 1.1 | [facility] | | | | | | DEPARTMENT | | | | | | OF | | | | | | PATHOLOGY | | + +-------+ + + + | BANDS % | 2 | <11 % | [facility] | | | | | | DEPARTMENT | | | | | | OF | | | | | | PATHOLOGY | | + +-------+ + + + | ATYPICAL | 0 | | [facility] | | | CELL % | | | DEPARTMENT | | | | | | OF | | | | | | PATHOLOGY | | + +-------+ + + + | PROMYELOCYT | 0 [...] | + + + | * Corrected 02/14/12 01:22: HILARIO COMMENTS, prev report: Slide | [facility] | | review pending. | DEPARTMENT OF | | | PATHOLOGY | + + + + + + + + | Performing | Address | City/State/Zipcode | Phone Number | | Organization | | | | + + + + + | [facility] DEPARTMENT OF | [address] | [place] [address] | | | PATHOLOGY | [address] | | | + + + + + DIFFERENTIAL (02/14/2012 12:22 AM PDT) + +---------+ + + + | Component | Value | Ref Range | Performed | Pathologist | | | | | At | Signature | + +---------+ + + + | NEUTROPHIL | 50 | 50 - 70 % | [facility] | | | % | | | DEPARTMENT | | | | | | OF | | | | | | PATHOLOGY | | + +---------+ + + + | LYMPHOCYTE | 23 | 18 - 42 % | [facility] | | | % | | | DEPARTMENT | | | | | | OF | | | | | | PATHOLOGY | | + +---------+ + + + | MONOCYTE % | 25 (H) | 2 - 8 % | [...] +---------+ + + + | NEUTROPHIL | 2.5 | 1.8 - 7.7 K/cu | [facility] | | | # | | mm | DEPARTMENT | | | | | | OF | | | | | | PATHOLOGY | | + +---------+ + + + | LYMPHOCYTE | 1.2 | 1.0 - 4.8 K/cu | [facility] | | | # | | mm | DEPARTMENT | | | | | | OF | | | | | | PATHOLOGY | | + +---------+ + + + | MONOCYTE # | 1.3 (H) | <0.9 K/cu mm | [facility] | [...] | + + + | * Corrected 02/14/12 01:22: HILARIO COMMENTS, prev report: Slide | [facility] | | review pending. | DEPARTMENT OF | | | PATHOLOGY | + + + + + + + + | Performing | Address | City/State/Zipcode | Phone Number | | Organization | | | | + + + + + | [facility] DEPARTMENT OF | [address] | [place] [address] | | | PATHOLOGY | [address] | | | + + + + + VANCOMYCIN, RANDOM (02/14/2012 12:22 AM PDT) + +-------+ + + + | Component | Value | Ref Range | Performed | Pathologist | | | | | At | Signature | + +-------+ + + + | VANCOMYCIN, | 49.6 | 5.0 - 50.0 | [facility] | | | RANDOM | | ug/mL | DEPARTMENT | | [...] [facility] DEPARTMENT | [address] | [place] [address] | | | PATHOLOGY | [address] | | | + + + + + CBC, WITH DIFFERENTIAL (02/14/2012 12:22 AM PDT) + + + + + + | Component | Value | Ref Range | Performed | Pathologist | | | | | At | Signature | + + + + + + | WHITE CELL | 5.1 | 4.4 - 11.0 K/cu | [facility] | | | COUNT | | mm | DEPARTMENT | | | | | | OF | | | | | | PATHOLOGY | | + + + + + + | RED CELL | 3.32 (L) | 4.00 - 5.20 | [facility] | | | COUNT | | M/cu mm | DEPARTMENT | | | | | | OF | | | | | | PATHOLOGY | | + + + + + + | HEMOGLOBIN | 10.4 (L) | 12.0 - 16.0 | [facility] | | | | | g/dL | DEPARTMENT | | | | | | OF | | | | | | PATHOLOGY | | + + + + + + | HEMATOCRIT | 29.9 (L) | 36.0 - 46.0 % | [facility] | | | | | | DEPARTMENT | | | | | | OF | | | | | | PATHOLOGY | | + + + + + + | MCV | 90.0 | 80.0 - 96.0 fL | [facility] | | | | | | DEPARTMENT | | | | | | OF | | | | | | PATHOLOGY | | + + + + + + | MCHC | 34.8 | 33.4 - 35.5 | [facility] | [...] + + + + | PLATELET | 108 (L) | 150 - 400 K/cu | [...] | [facility] | | | COMMENTS | Macro platelets present. | | DEPARTMENT | | | | Final Platelet Report. | | OF | | | | | | PATHOLOGY | | + + + + + + + + | Specimen | + + | Blood - Blood | + + + + + | Narrative | Performed At | + + + | * Corrected 02/14/12 01:22: HPANEL COMMENTS, prev report: Slide | [facility] | | review pending. | DEPARTMENT OF | | | PATHOLOGY | + + + + + + + + | Performing | Address | City/State/Zipcode | Phone Number | | Organization | | | | + + + + + | [facility] | [address] | [place] [address] | | | PATHOLOGY | [address] | | | + + + + + PHOSPHORUS, PLASMA (02/14/2012 12:22 AM PDT) + +---------+ + + + | Component | Value | Ref Range | Performed | Pathologist | | | | | At | Signature | + +---------+ + + + | PHOSPHORUS, | 5.0 (H) | 2.4 - 4.7 mg/dL | [...] DEPARTMENT OF | [address] | [place] [address] | | | PATHOLOGY | [address] | | | + + + + + MAGNESIUM, PLASMA (02/14/2012 12:22 AM PDT) + +-------+ + + + [...] | + + + + + | [facility] DEPARTMENT OF | [address] | [place] [address] | | | PATHOLOGY | [address] | | | + + + + + COMPLETE METABOLIC SET (NA,K,CL,CO2,BUN,CREAT,GLUC,CA,AST,ALT,BILI TOTAL,ALK PHOS,ALB,PROT TOTAL) (02/14/2012 12:22 AM PDT) + + + + + + | Component | Value | Ref Range | Performed | Pathologist | | | | | At | Signature | + + + + + + | GLUCOSE, | 86 | 60 - 99 mg/dL | [facility] | | | PLASMA | | | DEPARTMENT | | | (LAB) | | | OF | | | | | | PATHOLOGY | | + + + + + + | BUN, PLASMA | 35 (H) | 6 - 20 mg/dL | [facility] | | | (LAB) | | | DEPARTMENT | | | | | | OF | | | | | | PATHOLOGY | | + + + + + + | CREATININE | 8.45 (H) | 0.60 - 1.10 | [facility] [...] + + + + | ALBUMIN, | 2.4 [...] + + + | ALK PHOS | 123 (H) | 42 - 98 U/L | [facility] | | | | | | DEPARTMENT | | | | | | OF | | | | | | PATHOLOGY | | + + + + + + | AST(SGOT) | 9 (L) | 15 - 41 U/L | [...] + + + | ALT (SGPT) | 7 (L) | 13 - 48 U/L | [...] + + + + | ANION | 14 (H) | 4 - 11 [...] | + + + + + | [facility] DEPARTMENT | [address] | [place] [address] | | | PATHOLOGY | [address] | | | + + + + + URINE, MICROSCOPIC EXAM (02/13/2012 3:57 PM PDT) + + + + + + | Component | Value | Ref Range | Performed | Pathologist | | | | | At | Signature | + + + + + + | SQUAMOUS | Many (A) | /hpf | [facility] | | | EPITHELIAL | | | DEPARTMENT | | | | | | OF | | | | | | PATHOLOGY | | + + + + + + | NON-SQUAMOU | Moderate (A) | /hpf | [facility] | | | S EPITH | | | DEPARTMENT | | | | | | OF | | | | | | PATHOLOGY | | + + + + + + | RED CELLS | None | 0 - 3 /hpf | [facility] | | | | | | DEPARTMENT | | | | | | OF | | | | | | PATHOLOGY | | + + + + + + | WHITE CELLS | 2-5 | 0 - 5 /hpf | [facility] | | | | | | DEPARTMENT | | | | | | OF | | | | | | PATHOLOGY | | + + + + + + | BACTERIA | None | /hpf | [facility] | | | | | | DEPARTMENT | | | | | | OF | | | | | | PATHOLOGY | | + + + + + + | MUCOUS | None | /hpf | [facility] | | | | | | DEPARTMENT | | | | | | OF | | | | | | PATHOLOGY | | + + + + + + | HYALINE | None | 0 - 1 /lpf | [facility] | | | CASTS | | | DEPARTMENT | | | | | | OF | | | | | | PATHOLOGY | | + + + + + + | GRANULAR | None | /lpf | [facility] | | | CASTS | | | DEPARTMENT | | | | | | OF | | | | | | PATHOLOGY | | + + + + + + | CELLULAR | None | /lpf | [facility] | | | CASTS | | | DEPARTMENT | | | | | | OF | | | | | | PATHOLOGY | | + + + + + + | AMORPHOUS | None | /hpf | [facility] | | | CRYSTALS | | | DEPARTMENT | | | | | | OF | | | | | | PATHOLOGY | | + + + + + + | CALCIUM | Few (A) | /hpf | [facility] | | | OXALATE | | | DEPARTMENT | | | MADELINE | | | OF | | | | | | PATHOLOGY | | + + + + + + | URIC ACID | None | /hpf | [facility] | | | CRYSTALS | | | DEPARTMENT | | | | | | OF | | | | | | PATHOLOGY | | + + + + + + | TRIPLE P04 | None | /hpf | [facility] | | | CRYSTALS | | | DEPARTMENT | | | | | | OF | | | | | | PATHOLOGY | | + + + + + + | YEAST (LAB) | None | /hpf | [facility] | | | | | | DEPARTMENT | | | | | | OF | | | | | | PATHOLOGY | | + + + + + + | TRICHOMONAS | None | /hpf | [facility] | | | | | | DEPARTMENT | | | | | | OF | | | | | | PATHOLOGY | | + + + + + + + + | Specimen | + + | Urine - Urine | + + + + + + + | Performing | Address | City/State/Zipcode | Phone Number | | Organization | | | | + + + + + | [facility] | [address] | [place] [address] | | | PATHOLOGY | [address] | | | + + + + + X-RAY CHEST 2 VIEW (02/13/2012 3:43 PM PDT) + + + + + + | Component | Value | Ref Range | Performed | Pathologist | | | | | At | Signature | + + + + + + | CHEST, 2 | Study: CHEST 2 VIEWS | | | | | VIEWS [place] | 02/13/12 15:43:00 | | | | | [facility] | Indication: Follow-up | | | | | | pneumonia Comparison: | | | | | | 02/10/12 Findings: Left | | | | | | sided central venous | | | | | | catheter tip is | | | | | | unchanged inposition. | | | | | | Cardiac and | | | | | | mediastinal contours are | | | | | | normal. The lungsshow | | | | | | unchanged bilateral | | | | | | consolidative opacities. | | | | | | There is nopulmonary | | | | | | edema or pneumothorax. | | | | | | The osseous structures | | | | | | are intact. Impression: | | | | | | Unchanged bilateral | | | | | | consolidative opacities | | | | | | indicative of pneumonia. | | | | | | Attending Radiologists: | | | | | | Tadeo Garrett, | | | | | | MAleshaAuthor: Tadeo Garrett, | | | | | | M.Kimberley. I have personally | | | | | | viewed this | | | | | | procedure/exam, reviewed | | | | | | this report,and made | | | | | | changes to it where | | | | | | appropriate. | | | | | | Final/Electronically | | | | | | signed / Tadeo Garrett | | | | | | 02/13/2012 20:50 PM | | | | + + [...] | | | + +---------+ + + RESP CARE THERAPY (02/13/2012 12:26 AM PDT) + + + + +--------- -----+ | Component | Value | Ref Range | Performed | Patholog ist | | | | | At | Signatur e | + + + + +--------- -----+ | RESPIRATORY | Nasal cannula at 2 LPM. | | [facility] | | | CARE | Electronically | | RESPIRATORY | | | | Signed by: Jonathan | | THERAPY | | | | Isabel, | | [...] + + | [facility] RESP[facility]ATORY | [address] | [place], [place] | | | THERAPY | [address] | [phone] | | + + + + + EXTENDED DIFF (02/13/2012 12:11 AM PDT) + +-------+ + + + | Component | Value | Ref Range | Performed | Pathologist | | | | | At | Signature | + +-------+ + + + | METAMYELOCY | 2 | % | [facility] | | | MICHEAL % | | | DEPARTMENT | | | | | | OF | | | | | | PATHOLOGY | | + +-------+ + + + | MYELOCYTES | 0 | % | [facility] | | | % | | | DEPARTMENT | | | | | | OF | | | | | | PATHOLOGY | | + +-------+ + + + | NRBC | 0 | <1 /100 WBC | [facility] | | | | | | DEPARTMENT | | | | | | OF | | | | | | PATHOLOGY | | + +-------+ + + + | BANDS # | 0.1 | 0.0 - 1.1 | [facility] | | | | | | DEPARTMENT | | | | | | OF | | | | | | PATHOLOGY | | + +-------+ + + + | BANDS % | 2 | <11 % | [facility] | | | | | | DEPARTMENT | | | | | | OF | | | | | | PATHOLOGY | | + +-------+ + + + | ATYPICAL | 0 | | [facility] | | | CELL % | | | DEPARTMENT | | | | | | OF | | | | | | PATHOLOGY | | + +-------+ + + + | PROMYELOCYT | 0 [...] | + + + | * Corrected 02/13/12 04:14: RACHAELNEL COMMENTS, prev report: Slide | [facility] | | review pending. | DEPARTMENT OF | | | PATHOLOGY | + + + + + + + + | Performing | Address | City/State/Zipcode | Phone Number | | Organization | | | | + + + + + | [facility] DEPARTMENT OF | [address] | [place] [address] | | | PATHOLOGY | [address] | | | + + + + + DIFFERENTIAL (02/13/2012 12:11 AM PDT) + +---------+ + + + | Component | Value | Ref Range | Performed | Pathologist | | | | | At | Signature | + +---------+ + + + | NEUTROPHIL | 55 | 50 - 70 % | [facility] | | | % | | | DEPARTMENT | | | | | | OF | | | | | | PATHOLOGY | | + +---------+ + + + | LYMPHOCYTE | 22 | 18 - 42 % | [facility] | | | % | | | DEPARTMENT | | | | | | OF | | | | | | PATHOLOGY | | + +---------+ + + + | MONOCYTE % | 19 (H) | 2 - 8 % | [...] +---------+ + + + | NEUTROPHIL | 2.6 | 1.8 - 7.7 K/cu | [facility] | | | # | | mm | DEPARTMENT | | | | | | OF | | | | | | PATHOLOGY | | + +---------+ + + + | LYMPHOCYTE | 1.0 | 1.0 - 4.8 K/cu | [facility] | | | # | | mm | DEPARTMENT | | | | | | OF | | | | | | PATHOLOGY | | + +---------+ + + + | MONOCYTE # | 0.9 (H) | <0.9 K/cu mm | [facility] | [...] | + + + | * Corrected 02/13/12 04:14: HILARIO COMMENTS, prev report: Slide | [facility] | | review pending. | DEPARTMENT OF | | | PATHOLOGY | + + + + + + + + | Performing | Address | City/State/Zipcode | Phone Number | | Organization | | | | + + + + + | [facility] DEPARTMENT OF | [address] | [place] [address] | | | PATHOLOGY | [address] | | | + + + + + VANCOMYCIN, RANDOM (02/13/2012 12:11 AM PDT) + + + + + + | Component | Value | Ref Range | Performed | Pathologist | | | | | At | Signature | + + + + + + | VANCOMYCIN, | 50.9 (H) | 5.0 - 50.0 | [facility] | | | RANDOM | | ug/mL | DEPARTMENT | | [...] | + + + + + | [facility] DEPARTMENT OF | [address] | [place] [address] | | | PATHOLOGY | [address] | | | + + + + + CBC, WITH DIFFERENTIAL (02/13/2012 12:11 AM PDT) + + + + + + | Component | Value | Ref Range | Performed | Pathologist | | | | | At | Signature | + + + + + + | WHITE CELL | 4.7 | 4.4 - 11.0 K/cu | [facility] [...] + + + + | HEMOGLOBIN | 9.9 (L) | 12.0 - 16.0 | [facility] | | | | | g/dL | DEPARTMENT | | | | | | OF | | | | | | PATHOLOGY | | + + + + + + | HEMATOCRIT | 28.4 (L) | 36.0 - 46.0 % | [facility] | | | | | | DEPARTMENT | | | | | | OF | | | | | | PATHOLOGY | | + + + + + + | MCV | 89.8 | 80.0 - 96.0 fL | [facility] [...] + + + + | RDW | 14.6 | 11.5 - 15.0 % | [facility] | | | | | | DEPARTMENT | | | | | | OF | | | | | | PATHOLOGY | | + + + + + + | PLATELET | 91 (L) | 150 - 400 K/cu | [...] + + + + | DIFF | Some monocytes appear | | [facility] | | | COMMENTS | immature. | | DEPARTMENT | | | | | | OF | | | | | | PATHOLOGY | | + + + + + + + + | Specimen | + + | Blood - Blood | + + + + + | Narrative | Performed At | + + + | * Corrected 02/13/12 04:14: RACHAELNEL COMMENTS, prev report: Slide | [facility] | | review pending. | DEPARTMENT OF | | | PATHOLOGY | + + + + + + + + | Performing | Address | City/State/Zipcode | Phone Number | | Organization | | | | + + + + + | [facility] DEPARTMENT OF | [address] | [place] [address] | | | PATHOLOGY | [address] | | | + + + + + PHOSPHORUS, PLASMA (02/13/2012 12:11 AM PDT) + +-------+ + + + [...] | + + + + + | [facility] DEPARTMENT OF | [address] | [place] [address] | | | PATHOLOGY | [address] | | | + + + + + MAGNESIUM, PLASMA (02/13/2012 12:11 AM PDT) + +-------+ + + + [...] | + + + + + | [facility] DEPARTMENT | [address] | [place] [address] | | | PATHOLOGY | [address] | | | + + + + + COMPLETE METABOLIC SET (NA,K,CL,CO2,BUN,CREAT,GLUC,CA,AST,ALT,BILI TOTAL,ALK PHOS,ALB,PROT TOTAL) (02/13/2012 12:11 AM PDT) + + + + + + | Component | Value | Ref Range | Performed | Pathologist | | | | | At | Signature | + + + + + + | GLUCOSE, | 93 | 60 - 99 mg/dL | [facility] [...] + + + + | CREATININE | 7.54 (H) | 0.60 - 1.10 | [facility] [...] + + + + | ALBUMIN, | 2.2 (L) | 3.5 - 4.7 g/dL | [...] + + + | ALK PHOS | 118 (H) | 42 - 98 U/L | [facility] | | | | | | DEPARTMENT | | | | | | OF | | | | | | PATHOLOGY | | + + + + + + | AST(SGOT) | 7 (L) | 15 - 41 U/L | [...] + + + | ALT (SGPT) | 7 (L) | 13 - 48 U/L | [...] + + + + | ANION | 13 [...] | + + + + + | [facility] DEPARTMENT OF | [address] | [place] [address] | | | PATHOLOGY | [address] | | | + + + + + TOTAL RESULTS FOR,URINE (02/12/2012 12:41 PM PDT) + + + + + + | Component | Value | Ref Range | Performed | Pathologist | | | | | At | Signature | + + + + + + | COLLECTION | RandomComment: | hr | [facility] | | | INTERVAL, | Normal values based on | | DEPARTMENT | | | UR | 24 Hrs. collection | | OF | | | | interval. Patient | | PATHOLOGY | | | | results are | | | | | | calculated from actual | | | | | | collection interval | | | | | | andvolume. | | | | + + + + + + | URINE | Spot | mL | [facility] | | | VOLUME - | | | DEPARTMENT | | | [facility] | | | OF | | | | | | PATHOLOGY | | + + + + + + + + | Specimen | + + | | + + + + + + + | Performing | Address | City/State/Zipcode | Phone Number | | Organization | | | | + + + + + | [facility] DEPARTMENT OF | [phone] | [place] [address] | | | PATHOLOGY | [address] | | | + + + + + SODIUM TOTAL, URINE (02/12/2012 12:41 PM PDT) + +-------+ + + + | Component | Value | Ref Range | Performed | Pathologist | | | | | At | Signature | + +-------+ + + + | SODIUM CONC | 48 | mmol/L | [facility] | | | URINE | | | DEPARTMENT | | | | | | OF | | | | | | PATHOLOGY | | + +-------+ + + + + + | Specimen | + + | Urine - Urine | + + + + + + + | Performing | Address | City/State/Zipcode | Phone Number | | Organization | | | | + + + + + | [facility] DEPARTMENT | [phone] | [place] [address] | | | PATHOLOGY | [address] | | | + + + + + OSMOLALITY, URINE SPOT (02/12/2012 12:41 PM PDT) + + + + + + | Component | Value | Ref Range | Performed | Pathologist | | | | | At | Signature | + + + + + + | OSMOLALITY | 161Comment: Reference | mOsm/Kg H2O | [facility] | | | URINE | Ranges: 50-1200 mOsm/kg | | DEPARTMENT | | | | H2O Random Urine | | OF | | | | 300-900 mOsm/kg H2O | | PATHOLOGY | | | | 24 Hr., average fluid | | | | | | intake >850 mOsm/kg | | | | | | H2O After 12 Hr. | | | | | | fluid restriction | | | | + + + + + + + + | Specimen | + + | Urine - Urine | + + + + + + + | Performing | Address | City/State/Zipcode | Phone Number | | Organization | | | | + + + + + | [facility] | [phone] | [place] [address] | | | PATHOLOGY | [address] | | | + + + + + CREATININE, URINE (02/12/2012 12:41 PM PDT) + +-------+ + + + | Component | Value | Ref Range | Performed | Pathologist | | | | | At | Signature | + +-------+ + + + | CREATININE | 36.06 | mg/dL | [facility] | | | CONC UR | | | DEPARTMENT | | | | | | OF | | | | | | PATHOLOGY | | + +-------+ + + + + + | Specimen | + + | Urine - Urine | + + + + + + + | Performing | Address | City/State/Zipcode | Phone Number | | Organization | | | | + + + + + | [facility] DEPARTMENT | [address] | [place] [address] | | | PATHOLOGY | [address] | | | + + + + + CHLORIDE, URINE (02/12/2012 12:41 PM PDT) + +-------+ + + + | Component | Value | Ref Range | Performed | Pathologist | | | | | At | Signature | + +-------+ + + + | CHLORIDE | 42 | mmol/L | [facility] | | | CONC URINE | | | DEPARTMENT | | | | | | OF | | | | | | PATHOLOGY | | + +-------+ + + + + + | Specimen | + + | Urine - Urine | + + + + + + + | Performing | Address | City/State/Zipcode | Phone Number | | Organization | | | | + + + + + | [facility]MENT [facility] | [address] | [place] [address] | | | PATHOLOGY | [address] | | | + + + + + PROTEIN, URINE (02/12/2012 12:41 PM PDT) + + + + + + | Component | Value | Ref Range | Performed | Pathologist | | | | | At | Signature | + + + + + + | PROTEIN | 315 | mg/L | [facility] | | | CONC URINE | | | DEPARTMENT | | | | | | OF | | | | | | PATHOLOGY | | + + + + + + | PROTEIN/CRE | 0.87 (H) | <0.10 mg/mg | [facility] | | | ATININE | | | DEPARTMENT | | | RATIO | | | OF | | | | | | PATHOLOGY | | + + + + + + + + | Specimen | + + | Urine - Urine | + + + + + + + | Performing | Address | City/State/Zipcode | Phone Number | | Organization | | | | + + + + + | [facility] DEPARTMENT OF | [address] | [place] [address] | | | PATHOLOGY | [address] | | | + + + + + MATTSTEFANO ONLY (02/12/2012 12:41 PM PDT) + + + + + + | Component | Value | Ref Range | Performed | Pathologist | | | | | At | Signature | + + + + + + | COLOR(UR) | Straw | | [facility] | | | | | | DEPARTMENT | | | | | | OF | | | | | | PATHOLOGY | | + + + + + + | APPEARANCE | Clear | | [facility] | | | | | | DEPARTMENT | | | | | | OF | | | | | | PATHOLOGY | | + + + + + + | GLUCOSE(UR) | Negative | Neg-Trace mg/dL | [facility] | | | | | | DEPARTMENT | | | | | | OF | | | | | | PATHOLOGY | | + + + + + + | BILIRUBIN | Negative | Negative | [facility] | | | | | | DEPARTMENT | | | | | | OF | | | | | | PATHOLOGY | | + + + + + + | KETONES | Negative | Negative mg/dL | [facility] | | | | | | DEPARTMENT | | | | | | OF | | | | | | PATHOLOGY | | + + + + + + | SPECIFIC | 1.010 | 1.005 - 1.030 | [facility] | | | GRAVITY | | | DEPARTMENT | | | | | | OF | | | | | | PATHOLOGY | | + + + + + + | BLOOD | Moderate (A) | Negative | [facility] | | | | | | DEPARTMENT | | | | | | OF | | | | | | PATHOLOGY | | + + + + + + | PH(UR) | 6.0 | 5.0 - 8.0 | [facility] | | | | | | DEPARTMENT | | | | | | OF | | | | | | PATHOLOGY | | + + + + + + | PROTEIN(LAB | Trace (A) | Neg-Trace mg/dL | [facility] | | | ) | | | DEPARTMENT | | | | | | OF | | | | | | PATHOLOGY | | + + + + + + | UROBILINOGE | 0.2 | 0 - 0.2 TOLU | [facility] | | | N | | UNITS | DEPARTMENT | | | | | | OF | | | | | | PATHOLOGY | | + + + + + + | NITRITES | Negative | Negative | [facility] | | | | | | DEPARTMENT | | | | | | OF | | | | | | PATHOLOGY | | + + + + + + | LEUKOCYTE | Negative | Negative | [facility] | | | ESTERASE | | | DEPARTMENT | | | | | | OF | | | | | | PATHOLOGY | | + + + + + + + + | Specimen | + + | Urine - Urine | + + + + + + + | Performing | Address | City/State/Zipcode | Phone Number | | Organization | | | | + + + + + | [facility] | [address] | [place] [address] | | | PATHOLOGY | [address] | | | + + + + + RESP CARE THERAPY (02/12/2012 3:45 AM PDT) + + + + --+ + | Component | Value | Ref Range | Performed | Pathologist | | | | | At | Signature | + + + + --+ + | RESPIRATORY | Nasal cannula at 3 LPM. | | [facility] | | | CARE | Electronically | | RESPIRATOR Y | | | | Signed by: Mukul | | THERAPY | | | | ANSHUL Steele | | | | | | | | | | | | | | | | | | | | | | | | | | | | | | | | | | | |Electronically Signed by: Mukul Steele RCP | | | | + + + + --+ + + + | Specimen | + + | | + + + + + + + | Performing | Address | City/State/Zipcode | Phone Number | | Organization | | | | + + + + + | [facility] | [address] | [place], [place] | | | THERAPY | [address] | [address] | | + + + + + EXTENDED DIFF (02/12/2012 12:06 AM PDT) + +-------+ + + + | Component | Value | Ref Range | Performed | Pathologist | | | | | At | Signature | + +-------+ + + + | METAMYELOCY | 0 | % | [facility] | | | MICHEAL % | | | DEPARTMENT | | | | | | OF | | | | | | PATHOLOGY | | + +-------+ + + + | MYELOCYTES | 0 | % | [facility] | | | % | | | DEPARTMENT | | | | | | OF | | | | | | PATHOLOGY | | + +-------+ + + + | NRBC | 0 | <1 /100 WBC | [facility] | | | | | | DEPARTMENT | | | | | | OF | | | | | | PATHOLOGY | | + +-------+ + + + | BANDS # | 0.4 | 0.0 - 1.1 | [facility] | | | | | | DEPARTMENT | | | | | | OF | | | | | | PATHOLOGY | | + +-------+ + + + | BANDS % | 10 | <11 % | [facility] | | | | | | DEPARTMENT | | | | | | OF | | | | | | PATHOLOGY | | + +-------+ + + + | ATYPICAL | 0 | | [facility] | | | CELL % | | | DEPARTMENT | | | | | | OF | | | | | | PATHOLOGY | | + +-------+ + + + | PROMYELOCYT | 0 [...] | + + + | * Corrected 02/12/12 02:26: HILARIO COMMENTS, prev report: Slide | [facility] | | review pending. | DEPARTMENT OF | | | PATHOLOGY | + + + + + + + + | Performing | Address | City/State/Zipcode | Phone Number | | Organization | | | | + + + + + | [facility] DE[facility] | [address] | [place] [address] | | | PATHOLOGY | [address] | | | + + + + + DIFFERENTIAL (02/12/2012 12:06 AM PDT) + +---------+ + + + | Component | Value | Ref Range | Performed | Pathologist | | | | | At | Signature | + +---------+ + + + | NEUTROPHIL | 55 | 50 - 70 % | [facility] | | | % | | | DEPARTMENT | | | | | | OF | | | | | | PATHOLOGY | | + +---------+ + + + | LYMPHOCYTE | 13 (L) | 18 - 42 % | [facility] | | | % | | | DEPARTMENT | | | | | | OF | | | | | | PATHOLOGY | | + +---------+ + + + | MONOCYTE % | 22 (H) | 2 - 8 % | [...] +---------+ + + + | NEUTROPHIL | 2.3 | 1.8 - 7.7 K/cu | [facility] [...] + + + | MONOCYTE # | 0.9 (H) | <0.9 K/cu mm | [facility] | [...] | + + + | * Corrected 02/12/12 02:26: RACHAELNEL COMMENTS, prev report: Slide | [facility] | | review pending. | DEPARTMENT OF | | | PATHOLOGY | + + + + + + + + | Performing | Address | City/State/Zipcode | Phone Number | | Organization | | | | + + + + + | [facility] DEPARTMENT OF | [address] | [place] [address] | | | PATHOLOGY | [address] | | | + + + + + VANCOMYCIN, RANDOM (02/12/2012 12:06 AM PDT) + + + + + + | Component | Value | Ref Range | Performed | Pathologist | | | | | At | Signature | + + + + + + | VANCOMYCIN, | 59.5 (H) | 5.0 - 50.0 | [facility] | | | RANDOM | | ug/mL | DEPARTMENT | | [...] + + + + + | [facility] | [address] | [place] [address] | | | PATHOLOGY | [address] | | | + + + + + CBC, WITH DIFFERENTIAL (02/12/2012 12:06 AM PDT) + + + + + + | Component | Value | Ref Range | Performed | Pathologist | | | | | At | Signature | + + + + + + | WHITE CELL | 4.1 (L) | 4.4 - 11.0 K/cu | [facility] | | | COUNT | | mm | DEPARTMENT | | | | | | OF | | | | | | PATHOLOGY | | + + + + + + | RED CELL | 3.05 (L) | 4.00 - 5.20 | [facility] [...] + + + + | HEMATOCRIT | 27.7 (L) | 36.0 - 46.0 % | [facility] | | | | | | DEPARTMENT | | | | | | OF | | | | | | PATHOLOGY | | + + + + + + | MCV | 90.9 | 80.0 - 96.0 fL | [facility] | | | | | | DEPARTMENT | | | | | | OF | | | | | | PATHOLOGY | | + + + + + + | MCHC | 34.5 | 33.4 - 35.5 | [facility] | [...] + + + + | PLATELET | 72 (L) | 150 - 400 K/cu | [...] | + + + | * Corrected 02/12/12 02:26: RACHAELNEL COMMENTS, prev report: Slide | [facility] | | review pending. | DEPARTMENT OF | | | PATHOLOGY | + + + + + + + + | Performing | Address | City/State/Zipcode | Phone Number | | Organization | | | | + + + + + | [facility] DE[facility]MENT [facility] | [address] | [place] [address] | | | PATHOLOGY | [address] | | | + + + + + PHOSPHORUS, PLASMA (02/12/2012 12:06 AM PDT) + +-------+ + + + [...] | + + + + + | [facility] DEPARTMENT | [address] | [place] [address] | | | PATHOLOGY | [address] | | | + + + + + MAGNESIUM, PLASMA (02/12/2012 12:06 AM PDT) + +-------+ + + + | Component | Value | Ref Range | Performed | Pathologist | | | | | At | Signature | + +-------+ + + + | MAGNESIUM,P | 2.1 | 1.8 - 2.5 mg/dL | [facility] | | | LASMA | | [...] + + + + + | [facility] | [address] | [place] [address] | | | PATHOLOGY | [address] | | | + + + + + COMPLETE METABOLIC SET (NA,K,CL,CO2,BUN,CREAT,GLUC,CA,AST,ALT,BILI TOTAL,ALK PHOS,ALB,PROT TOTAL) (02/12/2012 12:06 AM PDT) + + + + + + | Component | Value | Ref Range | Performed | Pathologist | | | | | At | Signature | + + + + + + | GLUCOSE, | 112 (H) | 60 - 99 mg/dL | [...] + + + + | CREATININE | 6.99 (H) | 0.60 - 1.10 | [facility] | | | PLASMA | | mg/dL | DEPARTMENT | | | (LAB) | | | OF | | | | | | PATHOLOGY | | + + + + + + | TOTAL | 4.9 (L) | 6.1 - 7.9 g/dL | [facility] | | | PROTEIN, | | | DEPARTMENT | | | PLASMA | | | OF | | | (LAB) | | | PATHOLOGY | | + + + + + + | ALBUMIN, | 2.2 (L) | 3.5 - 4.7 g/dL | [...] + + + | ALK PHOS | 120 (H) | 42 - 98 U/L | [facility] | | | | | | DEPARTMENT | | | | | | OF | | | | | | PATHOLOGY | | + + + + + + | AST(SGOT) | 9 (L) | 15 - 41 U/L | [...] + + + | ALT (SGPT) | 8 (L) | 13 - 48 U/L | [...] + + + + | ANION | 13 [...] | + + + + + | [facility] DEPARTMENT OF | [address] | [place] [address] | | | PATHOLOGY | [address] | | | + + + + + CAPILLARY BLOOD GLUCOSE, POC (02/11/2012 5:56 PM PDT) + +---------+ + + + | Component | Value | Ref Range | Performed | Pathologist | | | | | At | Signature | + +---------+ + + + | BLOOD | 111 (H) | 60 - 99 mg/dL | [facility] - | | | GLUCOSE, | [...] [facility] | [address] | [place], [place] | | | [facility] CARE | [facility] | [address] | | | TESTS | | | | + + + + + CAPILLARY BLOOD GLUCOSE, POC (02/11/2012 11:39 AM PDT) + +-------+ + + + | Component | Value | Ref Range | Performed | Pathologist | | | | | At | Signature | + +-------+ + + + | BLOOD | 96 | 60 - 99 mg/dL | [facility] [...] [facility] | [address] | [place], [place] | | | [facility] CARE | [facility] | [address] | | | TESTS | | | | + + + + + CAPILLARY BLOOD GLUCOSE, POC (02/11/2012 7:35 AM PDT) + +-------+ + + + | Component | Value | Ref Range | Performed | Pathologist | | | | | At | Signature | + +-------+ + + + | BLOOD | 76 | 60 - 99 mg/dL | [facility] [...] [facility] | [address] | [place], [place] | | | [facility] OF [facility] | [address] | [address] | | | TESTS | | | | + + + + + C. DIFFICILE TOXIN (02/11/2012 6:00 AM PDT) + + + + + + | Component | Value | Ref Range | Performed | Pathologist | | | | | At | Signature | + + + + + + | C. | NegativeComment: | | [facility] | | | DIFFICILE | Reference Range: | | DEPARTMENT | | | TOXIN | Negative | | OF | | | | | | PATHOLOGY | | + + + + + + + + | Specimen | + + | Stool - Stool | + + + + + + + | Performing | Address | City/State/Zipcode | Phone Number | | Organization | | | | + + + + + | [facility] | [address] | [place] [address] | | | PATHOLOGY | [address] | | | + + + + + RESP CARE THERAPY (02/11/2012 3:04 AM PDT) + + + + +- + | Component | Value | Ref Range | Performed | Pathologist | | | | | At | Signature | + + + + +- + | RESPIRATORY | Nasal cannula at 3 LPM. | | [facility] | | | CARE | Electronically | | RESPIRATORY | | | | Signed by: Alfonzo | | THERAPY | | | | ANSHUL Nuñez | | | | | | | | | | | | | | | | | | | | | | | | | | | | | | | | | | | |Electronically Signed by: Alfonzo Nuñez RCP | | | | + + + + +- + + + | Specimen | + + | | + + + + + + + | Performing | Address | City/State/Zipcode | Phone Number | | Organization | | | | + + + + + | [facility] | [address] | [place], [place] | | | THERAPY | [address] | [address] | | + + + + + EXTENDED DIFF (02/11/2012 12:08 AM PDT) + +-------+ + + + | Component | Value | Ref Range | Performed | Pathologist | | | | | At | Signature | + +-------+ + + + | METAMYELOCY | 1 | % | [facility] | | | MICHEAL % | | | DEPARTMENT | | | | | | OF | | | | | | PATHOLOGY | | + +-------+ + + + | MYELOCYTES | 0 | % | [facility] | | | % | | | DEPARTMENT | | | | | | OF | | | | | | PATHOLOGY | | + +-------+ + + + | NRBC | 1 (H) | <1 /100 WBC | [facility] | | | | | | DEPARTMENT | | | | | | OF | | | | | | PATHOLOGY | | + +-------+ + + + | BANDS # | 0.3 | 0.0 - 1.1 | [facility] | | | | | | DEPARTMENT | | | | | | OF | | | | | | PATHOLOGY | | + +-------+ + + + | BANDS % | 9 | <11 % | [facility] | | | | | | DEPARTMENT | | | | | | OF | | | | | | PATHOLOGY | | + +-------+ + + + | ATYPICAL | 0 | | [facility] | | | CELL % | | | DEPARTMENT | | | | | | OF | | | | | | PATHOLOGY | | + +-------+ + + + | PROMYELOCYT | 0 [...] | + + + | * Corrected 02/11/12 07:11: RACHAELNEL COMMENTS, prev report: Slide | [facility] | | review pending. | DEPARTMENT OF | | | PATHOLOGY | + + + + + + + + | Performing | Address | City/State/Zipcode | Phone Number | | Organization | | | | + + + + + | [facility] DE[facility]MENT | [address] | [place] [address] | | | PATHOLOGY | [address] | | | + + + + + DIFFERENTIAL (02/11/2012 12:08 AM PDT) + +---------+ + + + | Component | Value | Ref Range | Performed | Pathologist | | | | | At | Signature | + +---------+ + + + | NEUTROPHIL | 52 | 50 - 70 % | [facility] | | | % | | | DEPARTMENT | | | | | | OF | | | | | | PATHOLOGY | | + +---------+ + + + | LYMPHOCYTE | 18 | 18 - 42 % | [facility] | | | % | | | DEPARTMENT | | | | | | OF | | | | | | PATHOLOGY | | + +---------+ + + + | MONOCYTE % | 20 (H) | 2 - 8 % | [...] +---------+ + + + | NEUTROPHIL | 1.8 | 1.8 - 7.7 K/cu | [facility] | | | # | | mm | DEPARTMENT | | | | | | OF | | | | | | PATHOLOGY | | + +---------+ + + + | LYMPHOCYTE | 0.6 (L) | 1.0 - 4.8 K/cu | [facility] | | | # | | mm | DEPARTMENT | | | | | | OF | | | | | | PATHOLOGY | | + +---------+ + + + | MONOCYTE # | 0.7 | <0.9 K/cu mm | [facility] | [...] | + + + | * Corrected 02/11/12 07:11: HPANEL COMMENTS, prev report: Slide | [facility] | | review pending. | DEPARTMENT OF | | | PATHOLOGY | + + + + + + + + | Performing | Address | City/State/Zipcode | Phone Number | | Organization | | | | + + + + + | [facility] DEPARTMENT OF | [address] | [place] [address] | | | PATHOLOGY | [address] | | | + + + + + VANCOMYCIN, RANDOM (02/11/2012 12:08 AM PDT) + + + + + + | Component | Value | Ref Range | Performed | Pathologist | | | | | At | Signature | + + + + + + | VANCOMYCIN, | 56.8 (H) | 5.0 - 50.0 | [facility] | | | RANDOM | | ug/mL | DEPARTMENT | | [...] + + + + + | [facility] | [address] | [place] [address] | | | PATHOLOGY | [address] | | | + + + + + CBC, WITH DIFFERENTIAL (02/11/2012 12:08 AM PDT) + + + + + + | Component | Value | Ref Range | Performed | Pathologist | | | | | At | Signature | + + + + + + | WHITE CELL | 3.5 (L) | 4.4 - 11.0 K/cu | [...] + + + + | MCV | 90.4 | 80.0 - 96.0 fL | [facility] | | | | | | DEPARTMENT | | | | | | OF | | | | | | PATHOLOGY | | + + + + + + | MCHC | 35.1 | 33.4 - 35.5 | [facility] | | | | | g/dL | DEPARTMENT | | | | | | OF | | | | | | PATHOLOGY | | + + + + + + | RDW | 14.6 | 11.5 - 15.0 % | [facility] | | | | | | DEPARTMENT | | | | | | OF | | | | | | PATHOLOGY | | + + + + + + | PLATELET | 58 (L) | 150 - 400 K/cu | [...] | + + + | * Corrected 02/11/12 07:11: RACHAELNEL COMMENTS, prev report: Slide | [facility] | | review pending. | DEPARTMENT OF | | | PATHOLOGY | + + + + + + + + | Performing | Address | City/State/Zipcode | Phone Number | | Organization | | | | + + + + + | [facility] DEPARTMENT OF | [address] | [place] [address] | | | PATHOLOGY | [address] | | | + + + + + CHOLESTEROL TOTAL, PLASMA (02/11/2012 12:08 AM PDT) + + + + + + | Component | Value | Ref Range | Performed | Pathologist | | | | | At | Signature | + + + + + + | CHOLESTEROL | 88Comment: | <200 mg/dL | [facility] | | [...] + + + + + | [facility] | [address] | [place] [address] | | | PATHOLOGY | [address] | | | + + + + + LDH TOTAL, PLASMA (02/11/2012 12:08 AM PDT) + +-------+ + + + | Component | Value | Ref Range | Performed | Pathologist | | | | | At | Signature | + +-------+ + + + | LD TOTAL, | 193 | 110 - 205 U/L | [facility] [...] | + + + + + | [facility] DEPARTMENT OF | [address] | [place] [address] | | | PATHOLOGY | [address] | | | + + + + + BILIRUBIN DIRECT (02/11/2012 12:08 AM PDT) + +-------+ + + + [...] | + + + + + | [facility] DEPARTMENT OF | [address] | [place] [address] | | | PATHOLOGY | [address] | | | + + + + + URIC ACID, PLASMA (02/11/2012 12:08 AM PDT) + +-------+ + + + | Component | Value | Ref Range | Performed | Pathologist | | | | | At | Signature | + +-------+ + + + | URIC ACID, | 5.5 | 2.5 - 6.2 mg/dL | [facility] | | | PLASMA | | [...] | + + + + + | [facility] DEPARTMENT OF | [address] | [place] [address] | | | PATHOLOGY | [address] | | | + + + + + PHOSPHORUS, PLASMA (02/11/2012 12:08 AM PDT) + +---------+ + + + [...] + + + + + | [facility] | [address] | [place] [address] | | | PATHOLOGY | [address] | | | + + + + + MAGNESIUM, PLASMA (02/11/2012 12:08 AM PDT) + +---------+ + + + | Component | Value | Ref Range | Performed | Pathologist | | | | | At | Signature | + +---------+ + + + | MAGNESIUM,P | 1.6 (L) | 1.8 - 2.5 mg/dL | [...] DEPARTMENT OF | [address] | [place] [address] | | | PATHOLOGY | [address] | | | + + + + + COMPLETE METABOLIC SET (NA,K,CL,CO2,BUN,CREAT,GLUC,CA,AST,ALT,BILI TOTAL,ALK PHOS,ALB,PROT TOTAL) (02/11/2012 12:08 AM PDT) + + + + + + | Component | Value | Ref Range | Performed | Pathologist | | | | | At | Signature | + + + + + + | GLUCOSE, | 86 | 60 - 99 mg/dL [...] + + + + | CREATININE | 5.90 (H) | 0.60 - 1.10 | [facility] [...] + + + + | ALBUMIN, | 2.2 (L) | 3.5 - 4.7 g/dL | [...] + + + + | AST(SGOT) | 8 (L) | 15 - 41 U/L | [...] + + + + | CHLORIDE, | 109 [...] + + + | ALT (SGPT) | 8 (L) | 13 - 48 U/L | [...] + + + + | ANION | 14 (H) | 4 - 11 [...] + | [facility] DEPARTMENT OF | [address] | [place] [address] | | | PATHOLOGY | [address] | | | + + + + + CAPILLARY BLOOD GLUCOSE, POC (02/10/2012 10:49 PM PDT) + +-------+ + + + | Component | Value | Ref Range | Performed | Pathologist | | | | | At | Signature | + +-------+ + + + | BLOOD | 81 | 60 - 99 mg/dL | [facility] - | | | GLUCOSE, | [...] + + | [facility] | [address] | [place], [place] | | | [facility] OF CARE | [address] | [address] | | | TESTS | | | | + + + + + X-RAY ABD ACUTE 3 VIEWS & PA CHEST (02/10/2012 10:38 PM PDT) + + + + + + | Component | Value | Ref Range | Performed | Pathologist | | | | | At | Signature | + + + + + + | ABD ACUTE 3 | Supine and upright views | | | | | VIEWS (2 V | of the abdomen and PA | | | | | ABD & 1 V | view of the chest. | | | | | CXR) | History: Abdominal pain. | | | | | | Comparison: Chest CT | | | | | | 02/09/2012 FINDINGS: | | | | | | Multifocal consolidation | | | | | | again seen, with | | | | | | bilateral | | | | | | pleuraleffusions, right | | | | | | greater than left. No | | | | | | disproportionately | | | | | | dilated loops of small | | | | | | or large bowel tosuggest | | | | | | obstruction. There is | | | | | | no free air or portal | | | | | | venous gas. Bony | | | | | | structures are | | | | | | unremarkable. | | | | | | IMPRESSION: Persistent | | | | | | appearance of multifocal | | | | | | consolidation in the | | | | | | lungs, withbilateral | | | | | | pleural effusions. No | | | | | | acute abdominal | | | | | | findings. Attending | | | | | | Radiologists: Theresa Mascorro | | | | | | Clint KapoorAuthor: | | | | | | Theresa Kapoor M.D. | | | | | | I have personally viewed | | | | | | this procedure/exam, | | | | | | reviewed this report,and | | | | | | made changes to it | | | | | | where appropriate. | | | | | | Final/Electronically | | | | | | signed / Theresa Mascorro | | | | | | Antwon 02/11/2012 9:34 | | | | | | AM | | | | + + [...] | | | + +---------+ + + RESP CARE THERAPY (02/10/2012 8:54 PM PDT) + + + + + + | Component | Value | Ref Range | Performed | Pathologist | | | | | At | Signature | + + + + + + | RESPIRATORY | Pain Assessment:Patients | | [facility] | | | CARE | pain assessed and was a | | RESPIRATORY | | | | 0 on a scale of 0-10. | | THERAPY | | | | Interventions:Medication | | | | | | given via SVN with | | | | | | Ipratropium [place] .5 | | | | | | mg / Albuterol 2.5 mg | | | | | | Assessment:Breath | | | | | | Sounds: diminished | | | | | | scattered coarse wheeze | | | | | | .Cough/Sputum: Patient | | | | | | had no cough at this | | | | | | time.Outcome after | | | | | | therapy: There was no | | | | | | ichange after therapy. | | | | | | Electronically Signed | | | | | | by: Alfonzo Nuñez, | | | | | | CRITICAL POWER INSTALL TECHNICIAN | | | | + + + + + + + + | Specimen | + + | | + + + + + + + | Performing | Address | City/State/Zipcode | Phone Number | | Organization | | | | + + + + + | [facility] | [address] | [place], [place] | | | THERAPY | [address] | [address] | | + + + + + CAPILLARY BLOOD GLUCOSE, POC (02/10/2012 6:25 PM PDT) + +-------+ + + + | Component | Value | Ref Range | Performed | Pathologist | | | | | At | Signature | + +-------+ + + + | BLOOD | 92 | 60 - 99 mg/dL | [facility] [...] + | [facility] | [address] | [place], [place] | | | [facility] CARE | [address] | [address] | | | TESTS | | | | + + + + + BASIC METABOLIC SET (NA, K, CL, TCO2, BUN, CR, GLU, CA) (02/10/2012 6:12 PM PDT) + + + + + + | Component | Value | Ref Range | Performed | Pathologist | | | | | At | Signature | + + + + + + | GLUCOSE, | 87 | 60 - 99 mg/dL | [facility] | | | PLASMA | | | DEPARTMENT | | | (LAB) | | | OF | | | | | | PATHOLOGY | | + + + + + + | BUN, PLASMA | 23 (H) | 6 - 20 mg/dL | [facility] | | | (LAB) | | | DEPARTMENT | | | | | | OF | | | | | | PATHOLOGY | | + + + + + + | CREATININE | 5.74 (H) | 0.60 - 1.10 | [facility] [...] + + + + | POTASSIUM, | 4.2 | 3.4 - 5.0 | [facility] | | | PLASMA | | mmol/L | DEPARTMENT | | | (LAB) | | | OF | | | | | | PATHOLOGY | | + + + + + + | CHLORIDE, | 109 [...] + + + + + | [facility] | [address] | [place] [address] | | | PATHOLOGY | [address] | | | + + + + + STREP PNEUMONIAE AG, URINE (02/10/2012 6:12 PM PDT) + + + + + + | Component | Value | Ref Range | Performed | Pathologist | | | | | At | Signature | + + + + + + | STREP. | NegativeComment: | | [facility] | | | PNEUMONIAE | INTERPRETIVE | | REG UNIV | | | AG, URINE | INFORMATION: | | PTH - INTFC | | | | Streptococcus pneumoniae | | | | | | Ag, | | | | | | UrineFalse-positives may | | | | | | occur because of | | | | | | cross-reactivity | | | | | | withother members of the | | | | | | S. mitis group. | | | | | | Clinical correlationis | | | | | | recommended.Performed | | | | | | by [facility], | | | | | | | | | | | | [address] | | | | | | [facility] | | | | | | [id number] | | | | | | | | | | | | www.[facility], | | | | | | Marilyn Pak MD - | | | | | | Lab. Director | | | | + + + + + + + + | Specimen | + + | Urine - Urine | + + + + + + + | Performing | Address | City/State/Zipcode | Phone Number | | Organization | | | | + + + + + | [facility] | [address] | [place], [place] | | | [facility] | | [address] | | + + + + + LEGIONELLA AG, URINE (02/10/2012 6:12 PM PDT) + + + + + + | Component | Value | Ref Range | Performed | Pathologist | | | | | At | Signature | + + + + + + | LEGIONELLA | NegativeComment: A | | [facility] | | | AG, UR | negative result does not | | REG UNIV | | | | rule out the | | [facility] | | | | possibility ofLegionella | | | | | | infection due to other | | | | | | serogroups or species | | | | | | ofLegionella.INTERPRETIV | | | | | | E INFORMATION: | | | | | | Legionella pneumophila | | | | | | Antigen, UrineThis assay | | | | | | detects Legionella | | | | | | pneumophila serogroup | | | | | | one (1)antigen.Performed | | | | | | by [facility], | | | | | | | | | | | | [address] | | | | | | [facility] | | | | | | [id number] | | | | | | | | | | | | www.[facility], | | | | | | Marilyn Pak MD - | | | | | | Lab. Director | | | | + + + + + + + + | Specimen | + + | Urine - Urine | + + + + + + + | Performing | Address | City/State/Zipcode | Phone Number | | Organization | | | | + + + + + | [facility] | [address] | [place], [place] | | | [facility] | | [address] | | + + + + + CULTURE, SPUTUM (02/10/2012 6:11 PM PDT) + + + + + + | Component | Value | Ref Range | Performed | Pathologist | | | | | At | Signature | + + + + + + | SOURCE BODY | Sputum | | [facility] | | | SITE | | | [facility] | | | | | | LAB-MICRO | | + + + + + + | CULTURE | Respiratory | | [facility] | | | RESULT | Culture | | [facility]AL | | | | Source...............: | | LAB-MICRO | | | | Sputum RLB Gram | | | | | | Stain...........: Few | | | | | | Squamous epithelial | | | | | | cells | | | | | | | | | | | | Few PMN's | | | | | | | | | | | | Rare Mixed jus | | | | | | Culture: 1+ | | | | | | Oral jus | | | | | | | | | | | | | | | | | | Final ID No | | | | | | Nocardia isolated | | | | | | Final Report | | | | + + + + + + + + | Specimen | + + | | + + + + + + + | Performing | Address | City/State/Zipcode | Phone Number | | Organization | | | | + + + + + | [facility] | [address] | [place] [address] | | | LAB-MICRO | | | | + + + + + FUNGAL SMEAR ONLY (02/10/2012 6:11 PM PDT) + + + + + + | Component | Value | Ref Range | Performed | Pathologist | | | | | At | Signature | + + + + + + | SOURCE BODY | Sputum | | [facility] | | | SITE | | | [facility] | | | | | | LAB-MICRO | | + + + + + + | CALCOFLUOR | No fungal elements seen | | [facility] | | | WHITE STAIN | The above report | | REGIONAL | | | ONLY | indicates no hyphal | | LAB-MICRO | | | | elements were noted. | | | | + + + + + + + + | Specimen | + + | | + + + + + + + | Performing | Address | City/State/Zipcode | Phone Number | | Organization | | | | + + + + + | [facility] | [address] | [place] [address] | | | LAB-MICRO | | | | + + + + + FUNGUS PRELIMINARY 1 (02/10/2012 6:11 PM PDT) + + + + + + | Component | Value | Ref Range | Performed | Pathologist | | | | | At | Signature | + + + + + + | PRELIM | Fungus NOT detected at 1 | | [facility] | | | FUNGAL ISOL | week. | | REGIONAL | | | | | | LAB-MICRO | | + + + + + + + + | Specimen | + + | | + + + + + + + | Performing | Address | City/State/Zipcode | Phone Number | | Organization | | | | + + + + + | [facility] | [address] | [place] [address] | | | LAB-MICRO | | | | + + + + + CULTURE, FUNGAL & SMEAR (02/10/2012 6:11 PM PDT) + + + + + + | Component | Value | Ref Range | Performed | Pathologist | | | | | At | Signature | + + + + + + | SOURCE BODY | Sputum | | [facility] | | | SITE | | | [facility] | | | | | | LAB-MICRO | | + + + + + + | CULTURE | Fungus Culture | | [facility] | | | RESULT | Culture Source | | [facility] | | | | ....: Sputum | | LAB-MICRO | | | | Smear..............: | | | | | | No fungal elements seen | | | | | | | | | | | | The | | | | | | above report indicates | | | | | | no hyphal elements | | | | | | | | | | | | were | | | | | | noted. | | | | | | Preliminary 1......: | | | | | | Fungus NOT detected at 1 | | | | | | week. RLB Final | | | | | | Report.......: 1. No | | | | | | mould isolated at 3 | | | | | | weeks. RLB | | | | | | ([facility]) | | | | | | [facility] | | | | | | [address] | | [address] | | | | | | [place] [address] | | | | + + + + + + + + | Specimen | + + | Sputum - Sputum | + + + + + + + | Performing | Address | City/State/Zipcode | Phone Number | | Organization | | | | + + + + + | [facility] | [address] | [place] [address] | | | LAB-MICRO | | | | + + + + + NOCARDIA CULTURE, RULE OUT (02/10/2012 6:11 PM PDT) + + + + + + | Component | Value | Ref Range | Performed | Pathologist | | | | | At | Signature | + + + + + + | R/O | No Nocardia isolated | | [facility] | | | NOCARDIA | | | REGIONAL | | | | | | LAB-MICRO | | + + + + + + + + | Specimen | + + | Sputum - Sputum | + + + + + + + | Performing | Address | City/State/Zipcode | Phone Number | | Organization | | | | + + + + + | [facility] | [address] | [place] [address] | | | LAB-MICRO | | | | + + + + + CULTURE, SPUTUM (02/10/2012 6:11 PM PDT) + + + + + + | Component | Value | Ref Range | Performed | Pathologist | | | | | At | Signature | + + + + + + | SOURCE BODY | Sputum Sputum | | [facility] | | | SITE | | | [facility] | | | | | | LAB-MICRO | | + + + + + + | CULTURE | Dupl order. | | [facility] | | | RESULT | | | [facility] | | | | | | LAB-MICRO | | + + + + + + + + | Specimen | + + | Sputum - Sputum | + + + + + + + | Performing | Address | City/State/Zipcode | Phone Number | | Organization | | | | + + + + + | [facility] | [address] | [place] [address] | | | LAB-MICRO | | | | + + + + + RESP CARE THERAPY (02/10/2012 6:00 PM PDT) + + + + + + | Component | Value | Ref Range | Performed | Pathologist | | | | | At | Signature | + + + + + + | RESPIRATORY | Order _ Evaluation | | [facility] | | | CARE | therapy omitted. Reason | | RESPIRATORY | | | | : New order today. | | THERAPY | | | | Supply exchange not | | | | | | indicated. - Time | | | | | | due:Electronically | | | | | | Signed by: Reny | | | | | | Alex, | | | | + + + + + + + + | Specimen | + + | | + + + + + + + | Performing | Address | City/State/Zipcode | Phone Number | | Organization | | | | + + + + + | [facility] | [address] | [place], [place] | | | THERAPY | [facility] | [address] | | + + + + + CULTURE, SPUTUM (02/10/2012 4:46 PM PDT) + + + + + + | Component | Value | Ref Range | Performed | Pathologist | | | | | At | Signature | + + + + + + | SOURCE BODY | Sputum Sputum | | [facility] | | | SITE | | | [facility] | | | | | | LAB-MICRO | | + + + + + + | CULTURE | Respiratory | | [facility] | | | RESULT | Culture | | [facility] | | | | Source...............: | | LAB-MICRO | | | | Sputum Sputum RLB Gram | | | | | | Stain...........: Few | | | | | | Squamous epithelial | | | | | | cells | | | | | | | | | | | | Few PMN's | | | | | | | | | | | | Few Mixed jus | | | | | | Culture: 1+ | | | | | | Oral jus | | | | | | | | | | | | | | | | | | Final ID Final | | | | | | Report | | | | + + + + + + + + | Specimen | + + | Sputum - Sputum | + + + + + + + | Performing | Address | City/State/Zipcode | Phone Number | | Organization | | | | + + + + + | [facility] | [address] | [place] [address] | | | LAB-MICRO | | | | + + + + + CAPILLARY BLOOD GLUCOSE, POC (02/10/2012 2:43 PM PDT) + +---------+ + + + | Component | Value | Ref Range | Performed | Pathologist | | | | | At | Signature | + +---------+ + + + | BLOOD | 101 (H) | 60 - 99 mg/dL | [...] [facility] | [address] | [place], [place] | | | [facility] | [address] | [address] | | | TESTS | | | | + + + + + RESPIRATORY VIRUS PANEL BY PCR (02/10/2012 2:00 PM PDT) + + + + + + | Component | Value | Ref Range | Performed | Pathologist | | | | | At | Signature | + + + + + + | RESPIRATORY | Nasal Wash | | [facility] | | | VIRUS | | | [facility] | | | PANEL PCR | | | | | | SOURCE | | | LABORATORIE | | | | | | S | | + + + + + + | METAPNEUMOV | Undetected | | [facility] | | | IRUS PCR | | | DIAGNOSTIC | | | | | | | | | | | | LABORATORIE | | | | | | S | | + + + + + + | RHINOVIRUS/ | Undetected | | [facility] | | | ENTEROVIRUS | | | DIAGNOSTIC | | | PCR | | | | | | | | | LABORATORIE | | | | | | S | | + + + + + + | INFLUENZA A | Undetected | | [facility] | | | PCR | | | DIAGNOSTIC | | | | | | | | | | | | LABORATORIE | | | | | | S | | + + + + + + | INFLUENZA A | Undetected | | [facility] | | | SUBTYPE H1 | | | DIAGNOSTIC | | | PCR | | | | | | | | | LABORATORIE | | | | | | S | | + + + + + + | INFLUENZA A | Undetected | | [facility] | | | SUBTYPE H3 | | | DIAGNOSTIC | | | PCR | | | | | | | | | LABORATORIE | | | | | | S | | + + + + + + | INFLUENZA B | Undetected | | [facility] | | | PCR | | | DIAGNOSTIC | | | | | | | | | | | | LABORATORIE | | | | | | S | | + + + + + + | RSV A PCR | Undetected | | [facility] | | | | | | DIAGNOSTIC | | | | | | | | | | | | LABORATORIE | | | | | | S | | + + + + + + | RSV B PCR | Undetected | | [facility] | | | | | | DIAGNOSTIC | | | | | | | | | | | | LABORATORIE | | | | | | S | | + + + + + + | PARAINFLUEN | Undetected | | [facility] | | | ZA 1 PCR | | | DIAGNOSTIC | | | | | | | | | | | | LABORATORIE | | | | | | S | | + + + + + + | PARAINFLUEN | Undetected | | [facility] | | | ZA 2 PCR | | | DIAGNOSTIC | | | | | | | | | | | | LABORATORIE | | | | | | S | | + + + + + + | PARAINFLUEN | Undetected | | [facility] | | | ZA 3 PCR | | | DIAGNOSTIC | | | | | | | | | | | | LABORATORIE | | | | | | S | | + + + + + + | ADENOVIRUS | Undetected | | [facility] | | | PCR | | | DIAGNOSTIC | | | | | | | | | | | | LABORATORIE | | | | | | S | | + + + + + + | FOOTER FOR | The xTAG Respiratory | | [facility] | | | DNA | Virus Panel uses | | DIAGNOSTIC | | | | multiplex PCR | | | | | | andfluorescently-labeled | | LABORATORIE | | | | microbeads to | | S | | | | simultaneously detect | | | | | | and identifyspecific | | | | | | target genes of 12 | | | | | | different respiratory | | | | | | virus pathogens | | | | | | -Influenza A, Influenza | | | | | | A subtype H1, Influenza | | | | | | A subtype H3, Influenza | | | | | | B,Respiratory Syncytial | | | | | | Virus (RSV) subtype A, | | | | | | Respiratory Syncytial | | | | | | Virus(RSV) subtype B, | | | | | | Parainfluenza 1, | | | | | | Parainfluenza 2, | | | | | | Parainfluenza 3, | | | | | | HumanMetapneumovirus, | | | | | | Rhinovirus, and | | | | | | Adenovirus. Since not | | | | | | all respiratory viruses | | | | | | are targeted by this | | | | | | assay, a specimenwith a | | | | | | negative result may | | | | | | contain respiratory | | | | | | viruses (or other | | | | | | causesof respiratory | | | | | | infections) not probed | | | | | | by this assay. | | | | | | Negative | | | | | | resultstherefore do not | | | | | | preclude respiratory | | | | | | virus infection and | | | | | | should not beused as the | | | | | | sole basis for | | | | | | diagnosis, treatment, or | | | | | | other | | | | | | managementdecisions. As | | | | | | this assay detects the | | | | | | presence of viral | | | | | | nucleic acid, which | | | | | | maypersist independent | | | | | | of virus viability, a | | | | | | positive result does | | | | | | notnecessarily indicate | | | | | | active infection. | | | | | | Positive results also | | | | | | do not ruleout bacterial | | | | | | infection or | | | | | | co-infection with other | | | | | | viruses. | | | | | | Correlationwith | | | | | | clinical and other | | | | | | laboratory data is | | | | | | required for a | | | | | | definitivediagnosis of a | | | | | | respiratory virus | | | | | | infection. Due to | | | | | | primers that cross-react | | | | | | with enteroviral | | | | | | sequences, | | | | | | positiveresults for | | | | | | rhinovirus should be | | | | | | confirmed by an | | | | | | alternative method. | | | | | | While the limit of | | | | | | detection for each viral | | | | | | target is sufficient in | | | | | | mostcases to detect | | | | | | respiratory viral | | | | | | sequences in | | | | | | clinically-apparent | | | | | | cases,this assay has | | | | | | limited detection | | | | | | sensitivity for certain | | | | | | adenovirusserotypes. | | | | | | If clinical suspicion | | | | | | of adenovirus infection | | | | | | is high, andresults from | | | | | | this assay are | | | | | | "negative" or | | | | | | "equivocal", an | | | | | | alternativetesting | | | | | | methodology for | | | | | | adenovirus, such as cell | | | | | | culture, is | | | | | | recommended. This test | | | | | | was developed and its | | | | | | performance | | | | | | characteristics | | | | | | determined [facility] | | | | | | [facility]. It has not | | | | | | been cleared orapproved | | | | | | by the Food and Drug | | | | | | Administration. FDA | | | | | | approval is notrequired | | | | | | for clinical use of this | | | | | | test, and therefore, | | | | | | validation wasdone as | | | | | | required under the | | | | | | requirements of the | | | | | | Clinical | | | | | | LaboratoryImprovement | | | | | | Act of 1987. The [facility] | | | | | | Molecular Diagnostic | | | | | | Center is a | | | | | | fullylicensed and/or | | | | | | accredited clinical | | | | | | laboratory under CLIA, | | | | | | CAP, and theState of | | | | | | [place]. | | | | + + + + + + + + | Specimen | + + | Nasal - Nasal | + + + + + + + | Performing | Address | City/State/[facility] | Phone Number | | Organization | | | | + + + + + | [facility] | [address] | [place] [address] | | | DIAGNOSTIC | [address] | | | | LABORATORIES | | | | + + + + + RESP CARE THERAPY (02/10/2012 9:00 AM PDT) + + + + +--------- -----+ | Component | Value | Ref Range | Performed | Patholog ist | | | | | At | Signatur e | + + + + +--------- -----+ | RESPIRATORY | Pain Assessment:Patients | | [facility] | | | CARE | pain assessed and was a | | RESPIRATORY | | | | 0 on a scale of 0-10. | | THERAPY | | | | Interventions:Medication | | | | | | given via SVN with | | | | | | Ipratropium [place] .5 | | | | | | mg / Albuterol 2.5 mg | | | | | | Assessment:Breath | | | | | | Sounds: | | | | | | .Cough/Sputum:Outcome | | | | | | after therapy: Patient's | | | | | | work of breathing | | | | | | decreased after therapy. | | | | | | Electronically | | | | | | Signed by: Reny | | | | | | Alex, | | | | | | | | | | | |Electronically Signed by: Reny Johnson, | | | | + + + + +--------- -----+ + + | Specimen | + + | | + + + + + + + | Performing | Address | City/State/Zipcode | Phone Number | | Organization | | | | + + + + + | [facility] | [address] | [place], [place] | | | THERAPY | [address] | [address] | | + + + + + RESP CARE THERAPY (02/10/2012 9:00 AM PDT) + + + + + + | Component | Value | Ref Range | Performed | Pathologist | | | | | At | Signature | + + + + + + | RESPIRATORY | : History and Assessment | | [facility] | | | CARE | : 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, 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, extranodal an | | | | | | Pulmonary problems: | | | | | | Current problems | | | | | | include, history of | | | | | | pneumonia .Smoking | | | | | | history: The patient | | | | | | quit smoking but smoked | | | | | | in the past less thanone | | | | | | pack per day.Results of | | | | | | recent Chest X-ray: | | | | | | infiltrates in multiple | | | | | | lobes .Pain: Patients | | | | | | pain assessed and was a | | | | | | 0 on a scale of | | | | | | 0-10.Oxygen requirement: | | | | | | 6 LPM with an oxygen | | | | | | saturation of 97 %.Heart | | | | | | rate: 105 beats per | | | | | | minuteRespiratory rate: | | | | | | 17 breaths per | | | | | | minuteTemperature: 37 ? | | | | | | C.Breathsounds:wheeze | | | | | | crackles rhonchi | | | | | | diminished .Cough and | | | | | | sputum | | | | | | production:Patient had a | | | | | | productive cough. | | | | | | Secretionsobtained: thin | | | | | | yellow blood streaked . | | | | | | Treatments | | | | | | GivenBronchial Hygiene: | | | | | | PEP therapy given. | | | | | | number of breaths = 20 | | | | | | . Respiratory Acuity | | | | | | and Protocol PlanA | | | | | | respiratory evaluation | | | | | | has been completed. | | | | | | Based on this assesment | | | | | | thepatient will be | | | | | | treated under the adult | | | | | | bronchodilator and | | | | | | bronchialhygiene. | | | | | | Respiratory Acuity Score | | | | | | beforer therapy was 8 | | | | | | (moderate).Respiratory | | | | | | Acuity Score after | | | | | | therapy was 7 | | | | | | (moderate). | | | | | | Electronically Signed | | | | | | by: Reny Johnson, | | | | + + + + + + + + | Specimen | + + | | + + + + + + + | Performing | Address | City/State/Zipcode | Phone Number | | Organization | | | | + + + + + | [facility] | [address] | [place], [place] | | | THERAPY | [address] | [address] | | + + + + + CAPILLARY BLOOD GLUCOSE, POC (02/10/2012 8:51 AM PDT) + +-------+ + + + [...] [facility] | [address] | [place], [place] | | | [facility] | [address] | [address] | | | TESTS | | | | + + + + + EXTENDED DIFF (02/10/2012 4:45 AM PDT) + +--------+ + + + | Component | Value | Ref Range | Performed | Pathologist | | | | | At | Signature | + +--------+ + + + | METAMYELOCY | 2 | % | [facility] | [...] | + + + | * Corrected 02/10/12 08:29: RACHAELNEL COMMENTS, prev report: Slide | [facility] | | review pending. | DEPARTMENT OF | | | PATHOLOGY | + + + + + + + + | Performing | Address | City/State/Zipcode | Phone Number | | Organization | | | | + + + + + | [facility] | [address] | [place] [address] | | | PATHOLOGY | [address] | | | + + + + + DIFFERENTIAL (02/10/2012 4:45 AM PDT) + +---------+ + + + | Component | Value | Ref Range | Performed | Pathologist | | | | | At | Signature | + +---------+ + + + | NEUTROPHIL | 42 (L) | 50 - 70 % | [facility] | | | % | | | DEPARTMENT | | | | | | OF | | | | | | PATHOLOGY | | + +---------+ + + + | LYMPHOCYTE | 26 | 18 - 42 % | [facility] | | | % | | | DEPARTMENT | | | | | | OF | | | | | | PATHOLOGY | | + +---------+ + + + | MONOCYTE % | 17 (H) | 2 - 8 % | [...] +---------+ + + + | LYMPHOCYTE | 0.9 (L) | 1.0 - 4.8 K/cu | [...] | + + + | * Corrected 02/10/12 08:29: HPANEL COMMENTS, prev report: Slide | [facility] | | review pending. | DEPARTMENT OF | | | PATHOLOGY | + + + + + + + + | Performing | Address | City/State/Zipcode | Phone Number | | Organization | | | | + + + + + | [facility] DE[facility]MENT [facility] | [address] | [place] [address] | | | PATHOLOGY | [address] | | | + + + + + JORDAN REYES (02/10/2012 4:45 AM PDT) + + + + + + | Component | Value | Ref Range | Performed | Pathologist | | | | | At | Signature | + + + + + + | VANCOMYCIN, | 54.3 (H) | 5.0 - 50.0 | [facility] | | | RANDOM | | ug/mL | DEPARTMENT | | [...] | + + + + + | [facility] DEPARTMENT OF | [address] | [place] [address] | | | PATHOLOGY | [address] | | | + + + + + CBC, WITH DIFFERENTIAL (02/10/2012 4:45 AM PDT) + + + + + + | Component | Value | Ref Range | Performed | Pathologist | | | | | At | Signature | + + + + + + | WHITE CELL | 3.6 (L) | 4.4 - 11.0 K/cu | [...] + + + + | HEMOGLOBIN | 9.8 (L) | 12.0 - 16.0 | [facility] | | | | | g/dL | DEPARTMENT | | | | | | OF | | | | | | PATHOLOGY | | + + + + + + | HEMATOCRIT | 28.4 (L) | 36.0 - 46.0 % | [facility] | | | | | | DEPARTMENT | | | | | | OF | | | | | | PATHOLOGY | | + + + + + + | MCV | 90.0 | 80.0 - 96.0 fL | [facility] [...] + + + + | PLATELET | 53 (L) | 150 - 400 K/cu | [...] + + + + | RBC | Anisocytosis + | | [facility] | | | MORPHOLOGY | | | DEPARTMENT | | | | | | OF | | | | | | PATHOLOGY | | | | | | | | | | | | | | | | | | | | | | | | | | | | | | | | | | Polychromasia + | | | | | | | | | | | | | | | | | | | | | | | | | | | | | | | | | | | | | | | | | | | | | | | | | | | | | | Schistocytes + | | | | | | | | | | | | | | | | | | | | | | | | | | | | | | | | | | | | | | | | | | | | | | | | | | | | | | Rafal Cells + | | | | + + + + + + + + | Specimen | + + | Blood - Blood | + + + + + | Narrative | Performed At | + + + | * Corrected 02/10/12 08:29: RACHAELNEL COMMENTS, prev report: Slide | [facility] | | review pending. | DEPARTMENT OF | | | PATHOLOGY | + + + + + + + + | Performing | Address | City/State/Zipcode | Phone Number | | Organization | | | | + + + + + | [facility] | [address] | [place] [address] | | | PATHOLOGY | [address] | | | + + + + + PHOSPHORUS, PLASMA (02/10/2012 4:45 AM PDT) + +---------+ + + + [...] [facility] DE[facility] | [address] | [place] [address] | | | PATHOLOGY | [address] | | | + + + + + MAGNESIUM, PLASMA (02/10/2012 4:45 AM PDT) + +-------+ + + + | Component | Value | Ref Range | Performed | Pathologist | | | | | At | Signature | + +-------+ + + + | MAGNESIUM,P | 1.9 | 1.8 - 2.5 mg/dL | [facility] | | | LASMA | | [...] + + + + + | [facility] | [address] | [place] [address] | | | PATHOLOGY | [address] | | | + + + + + COMPLETE METABOLIC SET (NA,K,CL,CO2,BUN,CREAT,GLUC,CA,AST,ALT,BILI TOTAL,ALK PHOS,ALB,PROT TOTAL) (02/10/2012 4:45 AM PDT) + + + + + + | Component | Value | Ref Range | Performed | Pathologist | | | | | At | Signature | + + + + + + | GLUCOSE, | 90 | 60 - 99 mg/dL | [facility] [...] + + + + | CREATININE | 5.08 (H) | 0.60 - 1.10 | [facility] [...] + + + | ALK PHOS | 152 (H) | 42 - 98 U/L | [...] + + + + + | [facility] | [address] | [place] [address] | | | PATHOLOGY | [address] | | | + + + + + TRANSTHORACIC ECHOCARDIOGRAM, ADULT (02/10/2012 12:00 AM PDT) + + + | Narrative | Performed At | + + + | | | + + + + + | Transcriptions | + + | Other, Faculty - 02/10/2012 4:47 PM PDT | + + CAPILLARY BLOOD GLUCOSE, POC (02/09/2012 10:06 PM PDT) + +---------+ + + + | [...] [facility] | [address] | [place], [place] | | | [facility] | [address] | [address] | | | TESTS | | | | + + + + + CT CHEST WO CONTRAST (02/09/2012 6:28 PM PDT) + + + + + + | Component | Value | Ref Range | Performed | Pathologist | | | | | At | Signature | + + + + + + | CT CHEST WO | EXAM: Non contrast | | | | | CONTRAST | Chest CT COMPARISON: | | | | | | Radiograph from the same | | | | | | day HISTORY: Hypoxemia, | | | | | | immunocompromise, | | | | | | Burkitt's lymphoma | | | | | | TECHNIQUE: | | | | | | Overlapping 3-mm thick | | | | | | axial images were | | | | | | obtained fromthe lung | | | | | | apices thru the adrenal | | | | | | glands with overlapping | | | | | | 1.5 mmimages. No IV | | | | | | contrast was given. | | | | | | Standard Coronal | | | | | | reformations | | | | | | wereperformed. Radiation | | | | | | Dose: kVp 120 mAs | | | | | | 120 FINDINGS: The | | | | | | heart is mildly dilated, | | | | | | especially the right | | | | | | atrium.There is no | | | | | | pericardial effusion. | | | | | | Limited evaluation of | | | | | | the upperabdomen does | | | | | | not demonstrate any | | | | | | ascites. The spleen is | | | | | | normal insize. | | | | | | Multiple small lymph | | | | | | nodes within the upper | | | | | | retroperitoneumare | | | | | | suspected. Bilateral | | | | | | small pleural effusions | | | | | | are present and | | | | | | presumably transitdated. | | | | | | Minimal hydrostatic | | | | | | edema is noted with | | | | | | bilateral | | | | | | septalthickening. | | | | | | However, the lungs do | | | | | | demonstrate bilateral | | | | | | extensiveill-defined | | | | | | nodularity noted within | | | | | | all lobes, but most | | | | | | concentratedin the upper | | | | | | lobes. Within the | | | | | | right lower lobe, there | | | | | | is a largeconsolidation | | | | | | in the lateral basal | | | | | | segment as well as | | | | | | evolving areasof | | | | | | consolidation in the | | | | | | right upper lobe | | | | | | anterior segment, | | | | | | rightmiddle lobe, left | | | | | | lower lobe posterior | | | | | | basal segment, left | | | | | | upper lobeposterior | | | | | | segment and lingular | | | | | | inferior segments. | | | | | | There no areas | | | | | | ofnecrosis present on | | | | | | this unenhanced study. | | | | | | Mildly enlarged lymph | | | | | | nodes are present | | | | | | mediastinum, although | | | | | | theydemonstrate a normal | | | | | | architecture/fatty | | | | | | hilum and are | | | | | | likelyreactive. A left | | | | | | breast well-defined | | | | | | nodule with | | | | | | possiblecalcification is | | | | | | suspected in seen at | | | | | | the edge of the exam on | | | | | | image81. Left-sided | | | | | | Port-A-Cath has its tip | | | | | | involving the upper | | | | | | superiorvena cava. | | | | | | IMPRESSION: Multifocal | | | | | | progressive areas of | | | | | | consolidation as above, | | | | | | largest inthe right | | | | | | lower lobe lateral basal | | | | | | segment. Concurrent | | | | | | areas ofextensive | | | | | | ill-defined nodularity | | | | | | consistent with small | | | | | | airway fillingis noted, | | | | | | especially in the upper | | | | | | lobes. These findings | | | | | | arecharacteristic for an | | | | | | evolving infectious | | | | | | process. Given | | | | | | theextensive | | | | | | bilaterality, strong | | | | | | consideration for a | | | | | | viral infectionsuch as | | | | | | influenza, RSV or | | | | | | parainfluenza should be | | | | | | considered. | | | | | | Thedifference possibly | | | | | | would include | | | | | | multifocal bacterial | | | | | | pneumonia,although this | | | | | | is less likely. There is | | | | | | mild hydrostatic edema. | | | | | | Attending Radiologists: | | | | | | Moises Saha, | | | | | | ClintAuthor: Moises Overton | | | | | | Clint Saha I have | | | | | | personally viewed this | | | | | | procedure/exam, reviewed | | | | | | this report,and made | | | | | | changes to it where | | | | | | appropriate. | | | | | | Final/Electronically | | | | | | signed / Moises Overton | | | | | | Maria A 02/10/2012 9:03 | | | | | | AM | | | | + + [...] | | | + +---------+ + + VANCOMYCIN, RANDOM (02/09/2012 4:25 PM PDT) + + + + + + | Component | Value | Ref Range | Performed | Pathologist | | | | | At | Signature | + + + + + + | VANCOMYCIN, | 57.6 (H) | 5.0 - 50.0 | [facility] | | | [facility]OM | | ug/mL | DEPARTMENT | | | | | | OF | | | | | | PATHOLOGY | | + + + + + + + + | Specimen | + + | Blood - Portacath | + + + + + + + | Performing | Address | City/State/Zipcode | Phone Number | | Organization | | | | + + + + + | [facility] | [address] | [place] [address] | | | PATHOLOGY | [address] | | | + + + + + METHOTREXATE (02/09/2012 4:25 PM PDT) + +--------+ + + + | Component | Value | Ref Range | Performed | Pathologist | | | | | At | Signature | + +--------+ + + + | METHOTREXAT | < 0.05 | Variable umol/L | [facility] | | | [facility] | | | [facility] | | | [facility] | | | LABORATORY | | | ON | | | | | + +--------+ + + + | SPECIMEN | PCATH | | [facility] | | | TYPE TOX | BLOOD | | REG[facility] | | | | | | LABORATORY | | + +--------+ + + + + + | Specimen | + + | Blood - Portacath | + + + + + | [...] in the assay. | | | [facility] | | | [address] [place] [address] | | + + + + + + + + | Performing | Address | City/State/Zipcode | Phone Number | | Organization | | | | + + + + + | [facility] | [address] [place] [address] | | | LABORATORY | | | | + + + + + X-RAY CHEST 2 VIEW (02/09/2012 3:32 PM PDT) + + + + + + | Component | Value | Ref Range | Performed | Pathologist | | | | | At | Signature | + + + + + + | CHEST, 2 | EXAM: AP and lateral | | | | | VIEWS [place] | Chest COMPARISON: | | | | | STEREO | 11/14/11 , 02/03/12, same | | | | | | day. INDICATION: Hypoxia | | | | | | FINDINGS: Cardiac | | | | | | silhouette is normal. | | | | | | Bilateral lower lobe | | | | | | areasof consolidation | | | | | | and slightly worsened. | | | | | | Nodular opacities | | | | | | arepresent within the | | | | | | right upper lobe. This | | | | | | is suspect for | | | | | | multifocalconsolidation, | | | | | | potentially pneumonia. | | | | | | It has progressively | | | | | | worsenedfrom 02/03/12. | | | | | | More indolent process | | | | | | such as cryptogenic | | | | | | organizingpneumonia is | | | | | | conceivable. | | | | | | Multifocal hemorrhage | | | | | | is consideredunlikely. | | | | | | Small bilateral | | | | | | effusions are present, | | | | | | right greater left. | | | | | | There is no hydrostatic | | | | | | edema. Adenopathy is | | | | | | highly suspectedwithin | | | | | | the hilum. Recurrent | | | | | | tumor in a | | | | | | bronchovascular | | | | | | distributionis | | | | | | considered unlikely. | | | | | | IMPRESSION: Progressive | | | | | | worsening multifocal | | | | | | consolidation in the | | | | | | perihilar andright | | | | | | lower/middle lobe areas. | | | | | | This is most | | | | | | characteristic | | | | | | forprogressive | | | | | | multifocal bacterial | | | | | | pneumonia. | | | | | | Differential | | | | | | wouldinclude cryptogenic | | | | | | organizing pneumonia. | | | | | | Attending Radiologists: | | | | | | Moises Saha, | | | | | | ClintAuthor: Moises Overton | | | | | | Clint Saha I have | | | | | | personally viewed this | | | | | | procedure/exam, reviewed | | | | | | this report,and made | | | | | | changes to it where | | | | | | appropriate. | | | | | | Final/Electronically | | | | | | signed / Moises Overton | | | | | | Maria A 02/09/2012 | | | | | | 16:14 PM | | | | + + [...] | | | + +---------+ + + PRODUCT- RED CELLS LEUKOREDUCED (02/09/2012 3:07 PM PDT) + + + + + [...] + + + + | PRODUCT | [id number] | | [facility] | | | UNIT [...] + + + + | BLOOD | [id number] | | [facility] | | | PRODUCT [...] + + + + + | [facility] | [address] | [place] [address] | | | PATHOLOGY | [address] | | | + + + + + PRODUCT- RED CELLS LEUKOREDUCED (02/09/2012 3:07 PM PDT) + + + + + [...] + + + + | PRODUCT | [id number] | | [facility] | | | UNIT [...] + + + + | BLOOD | [id number] | | [facility] | | | PRODUCT [...] + | [facility] DEPARTMENT | [address] | [place] [address] | | | PATHOLOGY | [address] | | | + + + + + TYPE AND SCREEN (02/09/2012 3:07 PM PDT) + + + + + [...] + + | [facility] DEPARTMENT OF | [address] | [place] [address] | | | PATHOLOGY | [address] | | | + + + + + VRE (KATLYN) BY PCR (02/09/2012 3:04 PM PDT) + + + + + + | Component | Value | Ref Range | Performed | Pathologist | | | | | At | Signature | + + + + + + | VRE BY PCR | Positive for Katlyn gene | | [facility] | | | | VRE (A) | | DEPARTMENT | | | | | | OF | | | | | | PATHOLOGY | | + + + + + + + + | Specimen | + + | Swab - Rectum | + + + + + | Narrative | Performed At | + + + | RESULTS PHONED TO LG COLLIER BACK DONE AT 1915 | [facility] | | | DEPARTMENT OF | | | PATHOLOGY | + + + + + + + + | Performing | Address | City/State/Zipcode | Phone Number | | Organization | | | | + + + + + | [facility] DEPARTMENT OF | [address] | [place] [address] | | | PATHOLOGY | [address] | | | + + + + + TOTAL RESULTS FOR,URINE (02/09/2012 2:23 PM PDT) + + + + + + | Component | Value | Ref Range | Performed | Pathologist | | | | | At | Signature | + + + + + + | COLLECTION | RandomComment: | hr | [facility] | | | INTERVAL, | Normal values based on | | DEPARTMENT | | | UR | 24 Hrs. collection | | OF | | | | interval. Patient | | PATHOLOGY | | | | results are | | | | | | calculated from actual | | | | | | collection interval | | | | | | andvolume. | | | | + + + + + + | URINE | Spot | mL | [facility] | | | VOLUME - | | | DEPARTMENT | | | UCM | | | OF | | | [...] [facility] DEPARTMENT | [address] | [place] [address] | | | PATHOLOGY | [address] | | | + + + + + SODIUM TOTAL, URINE (02/09/2012 2:23 PM PDT) + +-------+ + + + | Component | Value | Ref Range | Performed | Pathologist | | | | | At | Signature | + +-------+ + + + | SODIUM CONC | 18 | mmol/L | [facility] | | | URINE | | | DEPARTMENT | | | | | | OF | | | | | | PATHOLOGY | | + +-------+ + + + + + | Specimen | + + | Urine - Catheter | + + + + + + + | Performing | Address | City/State/Zipcode | Phone Number | | Organization | | | | + + + + + | [facility] DEPARTMENT OF | [address] | [place] [address] | | | PATHOLOGY | [address] | | | + + + + + OSMOLALITY, URINE SPOT (02/09/2012 2:23 PM PDT) + + + + + + | Component | Value | Ref Range | Performed | Pathologist | | | | | At | Signature | + + + + + + | OSMOLALITY | 93Comment: Reference | mOsm/Kg H2O | [facility] | | | URINE | Ranges: 50-1200 mOsm/kg | | DEPARTMENT | | | | H2O Random Urine | | OF | | | | 300-900 mOsm/kg H2O | | PATHOLOGY | | | | 24 Hr., average fluid | | | | | | intake >850 mOsm/kg | | | | | | H2O After 12 Hr. | | | | | | fluid restriction | | | | + + + + + + + + | Specimen | + + | Urine - Catheter | + + + + + + + | Performing | Address | City/State/Zipcode | Phone Number | | Organization | | | | + + + + + | [facility] DEPARTMENT OF | [address] | [place] [address] | | | PATHOLOGY | [address] | | | + + + + + CREATININE, URINE (02/09/2012 2:23 PM PDT) + +-------+ + + + | Component | Value | Ref Range | Performed | Pathologist | | | | | At | Signature | + +-------+ + + + | CREATININE | 24.15 | mg/dL | [facility] | | | CONC UR | | | DEPARTMENT | | | | | | OF | | | | | | PATHOLOGY | | + +-------+ + + + + + | Specimen | + + | Urine - Catheter | + + + + + + + | Performing | Address | City/State/Zipcode | Phone Number | | Organization | | | | + + + + + | [facility] | [address] | [place] [address] | | | PATHOLOGY | [address] | | | + + + + + EOSINOPHILS, URINE (SPOT) (02/09/2012 2:23 PM PDT) + + + + + + | Component | Value | Ref Range | Performed | Pathologist | | | | | At | Signature | + + + + + + | URINE | NONESEEN | None Seen % | [facility] | | | EOSINOPHILS | | | DEPARTMENT | | | | | | OF | | | | | | PATHOLOGY | | + + + + + + + + | Specimen | + + | Urine - Catheter | + + + + + + + | Performing | Address | City/State/Zipcode | Phone Number | | Organization | | | | + + + + + | [facility] DEPARTMENT OF | [address] | [place] [address] | | | PATHOLOGY | [address] | | | + + + + + CHLORIDE, URINE (02/09/2012 2:23 PM PDT) + +-------+ + + + | Component | Value | Ref Range | Performed | Pathologist | | | | | At | Signature | + +-------+ + + + | CHLORIDE | 20 | mmol/L | [facility] | | | CONC URINE | | | DEPARTMENT | | | | | | OF | | | | | | PATHOLOGY | | + +-------+ + + + + + | Specimen | + + | Urine - Catheter | + + + + + + + | Performing | Address | City/State/Zipcode | Phone Number | | Organization | | | | + + + + + | [facility] DEPARTMENT OF | [address] | [place] [address] | | | PATHOLOGY | [address] | | | + + + + + URINE, MICROSCOPIC EXAM (02/09/2012 2:23 PM PDT) + + + + + + | Component | Value | Ref Range | Performed | Pathologist | | | | | At | Signature | + + + + + + | SQUAMOUS | Few (A) | /hpf | [facility] | | | EPITHELIAL | | | DEPARTMENT | | | | | | OF | | | | | | PATHOLOGY | | + + + + + + | NON-SQUAMOU | Few (A) | /hpf | [facility] | | | S EPITH | | | DEPARTMENT | | | | | | OF | | | | | | PATHOLOGY | | + + + + + + | RED CELLS | None | 0 - 3 /hpf | [facility] | | | | | | DEPARTMENT | | | | | | OF | | | | | | PATHOLOGY | | + + + + + + | WHITE CELLS | 0-2 | 0 - 5 /hpf | [facility] | | | | | | DEPARTMENT | | | | | | OF | | | | | | PATHOLOGY | | + + + + + + | BACTERIA | None | /hpf | [facility] | | | | | | DEPARTMENT | | | | | | OF | | | | | | PATHOLOGY | | + + + + + + | MUCOUS | None | /hpf | [facility] | | | | | | DEPARTMENT | | | | | | OF | | | | | | PATHOLOGY | | + + + + + + | HYALINE | None | 0 - 1 /lpf | [facility] | | | CASTS | | | DEPARTMENT | | | | | | OF | | | | | | PATHOLOGY | | + + + + + + | GRANULAR | None | /lpf | [facility] | | | CASTS | | | DEPARTMENT | | | | | | OF | | | | | | PATHOLOGY | | + + + + + + | CELLULAR | None | /lpf | [facility] | | | CASTS | | | DEPARTMENT | | | | | | OF | | | | | | PATHOLOGY | | + + + + + + | AMORPHOUS | Many (A) | /hpf | [facility] | | | CRYSTALS | | | DEPARTMENT | | | | | | OF | | | | | | PATHOLOGY | | + + + + + + | CALCIUM | None | /hpf | [facility] | | | OXALATE | | | DEPARTMENT | | | MADELINE | | | OF | | | | | | PATHOLOGY | | + + + + + + | URIC ACID | None | /hpf | [facility] | | | CRYSTALS | | | DEPARTMENT | | | | | | OF | | | | | | PATHOLOGY | | + + + + + + | TRIPLE P04 | None | /hpf | [facility] | | | CRYSTALS | | | DEPARTMENT | | | | | | OF | | | | | | PATHOLOGY | | + + + + + + | YEAST (LAB) | None | /hpf | [facility] | | | | | | DEPARTMENT | | | | | | OF | | | | | | PATHOLOGY | | + + + + + + | TRICHOMONAS | None | /hpf | [facility] | | | | | | DEPARTMENT | | | | | | OF | | | | | | PATHOLOGY | | + + + + + + + + | Specimen | + + | Urine - Catheter | + + + + + + + | Performing | Address | City/State/Zipcode | Phone Number | | Organization | | | | + + + + + | [facility] | [address] | [place] [address] | | | PATHOLOGY | [address] | | | + + + + + B-NATRIURETIC PEPTIDE, BLOOD (02/09/2012 2:14 PM PDT) + + + + + + | Component | Value | Ref Range | Performed | Pathologist | | | | | At | Signature | + + + + + + | B | 639 (H)Comment: BNP | <101 pg/mL | [facility] | | | NATRIURETIC | pg/mL | | DEPARTMENT | | | PEPTIDE | Interpretation | | OF | | | | --------- | | PATHOLOGY | | | | | | | | | | <jh=675....... Negative: | | | | | | CHF unlikely | | | | | | 101-200....... | | | | | | Suggestive for CHF. Also | | | | | | suggestive for | | | | | | Corpulmonale | | | | | | or pulmonary | | | | | | embolus. >200.......... | | | | | | Consistent with CHF. | | | | | | >ke=297....... Highly | | | | | | consistent with CHF. | | | | | | Patients with BNP>cr=367 | | | | | | | | | | | | pg/mL have a 30-fold | | | | | | increased risk of an | | | | | | adverse | | | | | | cardiac event | | | | | | within the next 6 | | | | | | months. BNP reagents | | | | | | have been modified by | | | | | | the senior financial analyst. | | | | | | Effective December 24, | | | | | | 2011, measured BNP will | | | | | | show results thatare | | | | | | approximately 20% lower | | | | | | than those obtained | | | | | | previously. | | | | + + + + + + + + | Specimen | + + | Blood - Blood | + + + + + + + | Performing | Address | City/State/Zipcode | Phone Number | | Organization | | | | + + + + + | [facility] | [address] | [place] [address] | | | PATHOLOGY | [address] | | | + + + + + CULTURE, BLOOD BACTI & YEAST (02/09/2012 2:04 PM PDT) + + + + + + | Component | Value | Ref Range | Performed | Pathologist | | | | | At | Signature | + + + + + + | BLOOD | Final Report: No | | [facility] | | | CULTURE | Bacteria or Yeast | | DEPARTMENT | | | [facility] | isolated at 5 days. | | OF | | | | | | PATHOLOGY | | + + + + + + | SOURCE BODY | Port Blood | | [facility] | | | SITE | | | DEPARTMENT | | | | | | OF | | | | | | PATHOLOGY | | + + + + + + + + | Specimen | + + | Blood - Port | + + + + + + + | Performing | Address | City/State/Zipcode | Phone Number | | Organization | | | | + + + + + | [facility] DEPARTMENT OF | [address] | [place] [address] | | | PATHOLOGY | [address] | | | + + + + + DIFFERENTIAL (02/09/2012 2:03 PM PDT) + +---------+ + + + | Component | Value | Ref Range | Performed | Pathologist | | | | | At | Signature | + +---------+ + + + | NEUTROPHIL | 44 (L) | 50 - 70 % | [facility] | | | % | | | DEPARTMENT | | | | | | OF | | | | | | PATHOLOGY | | + +---------+ + + + | LYMPHOCYTE | 24 | 18 - 42 % | [facility] | | | % | | | DEPARTMENT | | | | | | OF | | | | | | PATHOLOGY | | + +---------+ + + + | MONOCYTE % | 32 (H) | 2 - 8 % | [...] +---------+ + + + | NEUTROPHIL | 0.9 (L) | 1.8 - 7.7 K/cu | [...] + + + | MONOCYTE # | 0.7 | <0.9 K/cu mm | [facility] | [...] | + + + | * Corrected 02/09/12 16:32: HILARIO COMMENTS, prev report: Slide | [facility] | | review pending. | DEPARTMENT OF | | | PATHOLOGY | + + + + + + + + | Performing | Address | City/State/Zipcode | Phone Number | | Organization | | | | + + + + + | [facility] DEPARTMENT OF | [address] | [place] [address] | | | PATHOLOGY | [address] | | | + + + + + INR (02/09/2012 2:03 PM PDT) + + + + + + | Component | Value | Ref Range | Performed | Pathologist | | | | | At | Signature | + + + + + + | INR | 1.30 (H)Comment: | 0.90 - 1.20 INR | [facility] | | | | INR Therapeutic ranges [...] + + + + + | [facility] | [address] | [place] [address] | | | PATHOLOGY | [address] | | | + + + + + CBC, WITH DIFFERENTIAL (02/09/2012 2:03 PM PDT) + + + + + + | Component | Value | Ref Range | Performed | Pathologist | | | | | At | Signature | + + + + + + | WHITE CELL | 2.1 (L) | 4.4 - 11.0 K/cu | [facility] | | | COUNT | | mm | DEPARTMENT | | | | | | OF | | | | | | PATHOLOGY | | + + + + + + | RED CELL | 2.32 (L) | 4.00 - 5.20 | [facility] | | | COUNT | | M/cu mm | DEPARTMENT | | | | | | OF | | | | | | PATHOLOGY | | + + + + + + | HEMOGLOBIN | 7.3 (L) | 12.0 - 16.0 | [facility] | | | | | g/dL | DEPARTMENT | | | | | | OF | | | | | | PATHOLOGY | | + + + + + + | HEMATOCRIT | 20.9 (L) | 36.0 - 46.0 % | [facility] | | | | | | DEPARTMENT | | | | | | OF | | | | | | PATHOLOGY | | + + + + + + | MCV | 90.1 | 80.0 - 96.0 fL | [facility] | | | | | | DEPARTMENT | | | | | | OF | | | | | | PATHOLOGY | | + + + + + + | MCHC | 35.0 | 33.4 - 35.5 | [facility] | [...] + + + + | PLATELET | 39 (L) | 150 - 400 K/cu | [...] | [facility] | | | COMMENTS | scan.Some monocytes | | DEPARTMENT | | | | appear immature. | | OF | | | | | | PATHOLOGY | | + + + + + + + + | Specimen | + + | Blood - Blood | + + + + + | Narrative | Performed At | + + + | * Corrected 02/09/12 16:32: HILARIO COMMENTS, prev report: Slide | [facility] | | review pending. | DEPARTMENT OF | | | PATHOLOGY | + + + + + + + + | Performing | Address | City/State/Zipcode | Phone Number | | Organization | | | | + + + + + | [facility] DEPARTMENT OF | [address] | [place] [address] | | | PATHOLOGY | [address] | | | + + + + + CHOLESTEROL TOTAL, PLASMA (02/09/2012 2:03 PM PDT) + + + + + + | Component | Value | Ref Range | Performed | Pathologist | | | | | At | Signature | + + + + + + | CHOLESTEROL | 89Comment: | <200 mg/dL | [facility] | | | (LAB) | Cholesterol [...] + + + + + | [facility] | [address] | [place] [address] | | | PATHOLOGY | [address] | | | + + + + + LDH TOTAL, PLASMA (02/09/2012 2:03 PM PDT) + +-------+ + + + | Component | Value | Ref Range | Performed | Pathologist | | | | | At | Signature | + +-------+ + + + | LD TOTAL, | 172 | 110 - 205 U/L | [facility] [...] DEPARTMENT OF | [address] | [place] [address] | | | PATHOLOGY | [address] | | | + + + + + BILIRUBIN DIRECT (02/09/2012 2:03 PM PDT) + +-------+ + + + | Component | Value | Ref Range | Performed | Pathologist | | | | | At | Signature | + +-------+ + + + | BILIRUBIN | 0.1 | <0.4 mg/dL | [facility] | | | DIRECT | | [...] | + + + + + | [facility] DEPARTMENT OF | [address] | [place] [address] | | | PATHOLOGY | [address] | | | + + + + + URIC ACID, PLASMA (02/09/2012 2:03 PM PDT) + +-------+ + + + [...] + + + + + | [facility] | [address] | [place] [address] | | | PATHOLOGY | [address] | | | + + + + + PHOSPHORUS, PLASMA (02/09/2012 2:03 PM PDT) + +-------+ + + + [...] DEPARTMENT OF | [address] | [place] [address] | | | PATHOLOGY | [address] | | | + + + + + MAGNESIUM, PLASMA (02/09/2012 2:03 PM PDT) + +---------+ + + + | Component | Value | Ref Range | Performed | Pathologist | | | | | At | Signature | + +---------+ + + + | MAGNESIUM,P | 1.3 (L) | 1.8 - 2.5 mg/dL | [...] | + + + + + | [facility] DEPARTMENT OF | [address] | [place] [address] | | | PATHOLOGY | [address] | | | + + + + + COMPLETE METABOLIC SET (NA,K,CL,CO2,BUN,CREAT,GLUC,CA,AST,ALT,BILI TOTAL,ALK PHOS,ALB,PROT TOTAL) (02/09/2012 2:03 PM PDT) + + + + + + | Component | Value | Ref Range | Performed | Pathologist | | | | | At | Signature | + + + + + + | GLUCOSE, | 89 | 60 - 99 mg/dL [...] + + + + | CREATININE | 4.28 (H) | 0.60 - 1.10 | [facility] | | | PLASMA | | mg/dL | DEPARTMENT | | | (LAB) | | | OF | | | | | | PATHOLOGY | | + + + + + + | TOTAL | 5.0 (L) | 6.1 - 7.9 g/dL | [facility] | | | PROTEIN, | | | DEPARTMENT | | | PLASMA | | | OF | | | (LAB) | | | PATHOLOGY | | + + + + + + | ALBUMIN, | 2.3 (L) | 3.5 - 4.7 g/dL | [...] + + + | ALK PHOS | 97 | 42 - 98 U/L | [facility] | | | | | | DEPARTMENT | | | | | | OF | | | | | | PATHOLOGY | | + + + + + + | AST(SGOT) | 10 (L) | 15 - 41 U/L | [...] + + + + | POTASSIUM, | 4.2 [...] + + + + + | [facility] | [address] | [place] [address] | | | PATHOLOGY | [address] | | | + + + + + OUTSIDE RADIOLOGY REPORTS (02/09/2012 12:00 AM PDT) + + + | Narrative | Performed At | + + + | | | + + + + + | Transcriptions | + + | Lamberto Faculty - 02/17/2012 9:01 AM PDT | + + OUTSIDE RADIOLOGY REPORTS (02/09/2012 12:00 AM PDT) + + + | Narrative | Performed At | + + + | | | + + + + + | Transcriptions | + + | Other, Faculty - 02/17/2012 9:01 AM PDT | + + documented in this encounter Visit Diagnoses + + | Diagnosis | + + | Burkitt's lymphoma (HCC) Burkitt's tumor or lymphoma, unspecified site, extranodal | | and solid organ sites | + + documented in this encounter Administered Medications + +--------+ +--------+------+------+ | Medication Order | MAR | Action | Dose | Rate | Site | | | Action | Date | | | | + +--------+ +--------+------+------+ | acetaminophen (aka TYLENOL) | Given | 02/09/20 | 650 mg | | | | tablet 325-650 mg 325-650 mg, | | 12 9:08 | | | | | oral, EVERY 4 HOURS NEEDED, | | PM PDT | | | | | Starting 02/09/12 at 1339, | | | | | | | Until 02/21/12 at 2310, mild | | | | | | | pain, fever, blood product | | | | | | | premedication | | | | | | + +--------+ +--------+------+------+ +---+---+ | | | +---+---+ + +-------+ +--------+---+---+ | acetaminophen (aka TYLENOL) | Given | 02/20/20 | 650 mg | | | | tablet 650 mg 650 mg, oral, | | 12 5:33 | | | | | ONCE, 1 dose, 02/20/12 at 1200 | | PM PDT | | | | + +-------+ +--------+---+---+ +---+---+ | | | +---+---+ + +-------+ +--------+---+---+ | acyclovir (aka ZOVIRAX) tablet | Given | 02/21/20 | 400 mg | | | | 400 mg 400 mg, oral, DAILY, | | 12 8:13 | | | | | First dose on Wed02/10/12 at | | AM PDT | | | | | 0900, Until Discontinued | | | | | | + +-------+ +--------+---+---+ +-------+ +--------+---+---+ | Given | 02/20/20 | 400 mg | | | | | 12 8:37 | | | | | | AM PDT | | | | +-------+ +--------+---+---+ | Given | 02/19/20 | 400 mg | | | | | 12 8:43 | | | | | | AM PDT | | | | +-------+ +--------+---+---+ +---+---+ | | | +---+---+ + +-------+ +---------+---+---+ | albuterol (aka PROVENTIL, | Given | 02/15/20 | 2 puffs | | | | VENTOLIN) 90 mcg/Actuation | | 12 3:21 | | | | | inhaler 2 Puff 2 puff, | | PM PDT | | | | | inhalation, EVERY 6 HOURS | | | | | | | NEEDED, Starting Wed02/10/12 at | | | | | | | 2050, Until Wed02/15/12 at 2020, | | | | | | | dyspnea/SOB | | | | | | + +-------+ +---------+---+---+ +-------+ +---------+---+---+ | Given | 02/14/20 | 2 puffs | | | | | 12 6:44 | | | | | | AM PDT | | | | +-------+ +---------+---+---+ | Given | 02/13/20 | 2 puffs | | | | | 12 6:17 | | | | | | PM PDT | | | | +-------+ +---------+---+---+ +---+---+ | | | +---+---+ + +-------+ +------+---+---+ | albuterol-ipratropium (aka | Given | 02/10/20 | 3 mL | | | | DUO-Catbird) nebulizer solution 3 mL | | 12 8:50 | | | | | 3 mL, inhalation, EVERY 6 HOURS | | PM PDT | | | | | NEEDED, Starting Wed02/10/12 | | | | | | | at 09, Until Wed02/10/12 at | | | | | | | 2052, dyspnea/SOB | | | | | | + +-------+ +------+---+---+ +---+---+ | | | +---+---+ + +-------+ +------+---+---+ | albuterol-ipratropium (aka | Given | 02/10/20 | 3 mL | | | | DUO-NEB) nebulizer solution 1 | | 12 8:23 | | | | | dose, Starting Wed02/10/12 at | | AM PDT | | | | | 0817, Until Wed02/10/12 at 0823 | | | | | | + +-------+ +------+---+---+ +---+---+ | | | +---+---+ + +-------+ +-------+---+---+ | amLODIPine (kendy NORARIEL) tablet | Given | 02/21/20 | 10 mg | | | | 10 mg 10 mg, oral, DAILY, First | | 12 8:13 | | | | | dose (after last modification) | | AM PDT | | | | | on 02/21/12 at 0900, Until | | | | | | | Discontinued | | | | | | + +-------+ +-------+---+---+ +---+---+ | | | +---+---+ + +-------+ +------+---+---+ | amLODIPine (aka NORVASC) tablet | Given | 02/20/20 | 5 mg | | | | 5 mg 5 mg, oral, DAILY, First | | 12 8:37 | | | | | dose on 02/14/12 at 2145, | | AM PDT | | | | | Until Discontinued | | | | | | + +-------+ +------+---+---+ +-------+ +------+---+---+ | Given | 02/19/20 | 5 mg | | | | | 12 8:43 | | | | | | AM PDT | | | | +-------+ +------+---+---+ | Given | 02/18/20 | 5 mg | | | | | 12 10:08 | | | | | | AM PDT | | | | +-------+ +------+---+---+ +---+---+ | | | +---+---+ + +-------+ +------+---+---+ | amLODIPine (aka NORVASC) tablet | Given | 02/20/20 | 5 mg | | | | 5 mg 5 mg, oral, ONCE, 1 dose, | | 12 11:55 | | | | | 02/20/12 at 1130 | | AM PDT | | | | + +-------+ +------+---+---+ +---+---+ | | | +---+---+ + +-------+ +---------+---+---+ | carbamide peroxide (aka DEBROX) | Given | 02/21/20 | 5 drops | | | | 6.5 % otic drops 5 Drop 5 drop, | | 12 8:15 | | | | | Both Ears, TWICE DAILY, First | | AM PDT | | | | | dose on Wed02/19/12 at 2100, | | | | | | | Until Discontinued | | | | | | + +-------+ +---------+---+---+ +-------+ +---------+---+---+ | Given | 02/20/20 | 5 drops | | | | | 12 9:45 | | | | | | PM PDT | | | | +-------+ +---------+---+---+ | Given | 02/20/20 | 5 drops | | | | | 12 8:41 | | | | | | AM PDT | | | | +-------+ +---------+---+---+ +---+---+ | | | +---+---+ + +---------+ +-----+--------+---+ | ceFEPime (aka MAXIPIME) IV | New Bag | 02/11/20 | 2 g | mL/hr | | | (pyxis minibag+) 2 g 2 g, | | 12 6:42 | | | | | intravenous, EVERY 24 HOURS, | | PM PDT | | | | | First dose on Wed02/09/12 at | | | | | | | 1830, Until Discontinued | | | | | | + +---------+ +-----+--------+---+ +---------+ +-----+--------+---+ | New Bag | 02/10/20 | 2 g | mL/hr | | | | 12 6:56 | | | | | | PM PDT | | | | +---------+ +-----+--------+---+ | New Bag | 02/09/20 | 2 g | mL/hr | | | | 12 6:49 | | | | | | PM PDT | | | | +---------+ +-----+--------+---+ +---+---+ | | | +---+---+ + +---------+ +-----+--------+---+ | ceFEPIme (aka MAXIPIME) IV 1 g | New Bag | 02/18/20 | 1 g | mL/hr | | | 1 g, intravenous, EVERY 24 | | 12 6:00 | | | | | HOURS, First dose on Wed02/12/12 | | PM PDT | | | | | at 1800, Until Discontinued | | | | | | + +---------+ +-----+--------+---+ +---------+ +-----+--------+---+ | New Bag | 02/17/20 | 1 g | mL/hr | | | | 12 5:31 | | | | | | PM PDT | | | | +---------+ +-----+--------+---+ | New Bag | 02/16/20 | 1 g | mL/hr | | | | 12 4:30 | | | | | | PM PDT | | | | +---------+ +-----+--------+---+ +---+---+ | | | +---+---+ + +-------+ +-------+---+---+ | dexamethasone (aka DECADRON) | Given | 02/20/20 | 10 mg | | | | tablet 10 mg 10 mg, oral, ONCE, | | 12 5:33 | | | | | 1 dose, 02/20/12 at 1200 | | PM PDT | | | | + +-------+ +-------+---+---+ +---+---+ | | | +---+---+ + +-------+ +-------+---+---+ | diphenhydrAMINE (aka BENADRYL) | Given | 02/09/20 | 25 mg | | | | capsule 25 mg 25 mg, oral, EVERY | | 12 9:08 | | | | | 4 HOURS NEEDED, Starting Tue | | PM PDT | | | | | 02/09/12 at 1340, Until Sun | | | | | | | 02/21/12 at 2310, for | | | | | | | extrapyramidal symptoms or nausea | | | | | | + +-------+ +-------+---+---+ +---+---+ | | | +---+---+ + +-------+ +-------+---+---+ | diphenhydrAMINE (aka BENADRYL) | Given | 02/20/20 | 50 mg | | | | capsule 50 mg 50 mg, oral, ONCE, | | 12 5:33 | | | | | 1 dose, 02/20/12 at 1200 | | PM PDT | | | | + +-------+ +-------+---+---+ +---+---+ | | | +---+---+ + +-------+ +--------+---+---+ | dronabinol (aka MARINOL) | Given | 02/15/20 | 2.5 mg | | | | capsule 2.5 mg 2.5 mg, oral, | | 12 6:52 | | | | | TWICE DAILY BEFORE MEALS, First | | AM PDT | | | | | dose on Wed02/09/12 at 1700, | | | | | | | Until Discontinued | | | | | | + +-------+ +--------+---+---+ +-------+ +--------+---+---+ | Given | 02/14/20 | 2.5 mg | | | | | 12 4:26 | | | | | | PM PDT | | | | +-------+ +--------+---+---+ | Given | 02/14/20 | 2.5 mg | | | | | 12 9:53 | | | | | | AM PDT | | | | +-------+ +--------+---+---+ +---+---+ | | | +---+---+ + +-------+ +------+---+---+ | dronabinol (aka MARINOL) | Given | 02/20/20 | 5 mg | | | | capsule 5 mg 5 mg, oral, EVERY 6 | | 12 11:38 | | | | | HOURS, First dose (after last | | AM PDT | | | | | modification) on Wed02/15/12 at | | | | | | | 1615, Until Discontinued | | | | | | + +-------+ +------+---+---+ +-------+ +------+---+---+ | Given | 02/19/20 | 5 mg | | | | | 12 9:53 | | | | | | PM PDT | | | | +-------+ +------+---+---+ | Given | 02/19/20 | 5 mg | | | | | 12 8:43 | | | | | | AM PDT | | | | +-------+ +------+---+---+ +---+---+ | | | +---+---+ + +-------+ +------+---+---+ | dronabinol (aka MARINOL) | Given | 02/21/20 | 5 mg | | | | capsule 5 mg 5 mg, oral, THREE | | 12 12:00 | | | | | TIMES DAILY BEFORE MEALS, First | | PM PDT | | | | | dose (after last modification) on | | | | | | | 02/20/12 at 1700, Until | | | | | | | Discontinued | | | | | | + +-------+ +------+---+---+ +-------+ +------+---+---+ | Given | 02/21/20 | 5 mg | | | | | 12 8:13 | | | | | | AM PDT | | | | +-------+ +------+---+---+ | Given | 02/20/20 | 5 mg | | | | | 12 5:33 | | | | | | PM PDT | | | | +-------+ +------+---+---+ +---+---+ | | | +---+---+ + +---------+ + +--------+---+ | droperidol (aka INAPSINE) | New Bag | 02/21/20 | 0.625 mg | mL/hr | | | injection 0.625 mg 0.625 mg, | | 12 8:13 | | | | | intravenous, EVERY 2 HOURS | | AM PDT | | | | | NEEDED, Starting Tu02/09/12 at | | | | | | | 1340, Until 02/21/12 at 2310, | | | | | | | nausea/vomiting | | | | | | + +---------+ + +--------+---+ +---------+ + +--------+---+ | New Bag | 02/20/20 | 0.625 mg | mL/hr | | | | 12 4:26 | | | | | | PM PDT | | | | +---------+ + +--------+---+ | New Bag | 02/20/20 | 0.625 mg | mL/hr | | | | 12 5:56 | | | | | | AM PDT | | | | +---------+ + +--------+---+ +---+---+ | | | +---+---+ + +-------+ +--------+---+---+ | fluconazole (aka DIFLUCAN) | Given | 02/14/20 | 200 mg | | | | tablet 200 mg 200 mg, oral, | | 12 9:54 | | | | | DAILY, First dose on Wed02/10/12 | | AM PDT | | | | | at 0900, Until Discontinued | | | | | | + +-------+ +--------+---+---+ +-------+ +--------+---+---+ | Given | 02/13/20 | 200 mg | | | | | 12 8:27 | | | | | | AM PDT | | | | +-------+ +--------+---+---+ | Given | 02/12/20 | 200 mg | | | | | 12 8:21 | | | | | | AM PDT | | | | +-------+ +--------+---+---+ +---+---+ | | | +---+---+ + +---------+ +-------+--------+---+ | furosemide (aka LASIX) | New Bag | 02/10/20 | 40 mg | mL/hr | | | injection 40 mg 40 mg, | | 12 1:35 | | | | | intravenous, ONCE, 1 dose, Tue | | AM PDT | | | | | 02/09/12 at 1900 | | | | | | + +---------+ +-------+--------+---+ +---+---+ | | | +---+---+ + +---------+ + +--------+---+ | heparin 10 unit/mL IV flush | New Bag | 02/20/20 | 50 Units | mL/hr | | | syringe 50 Units 50 Units, | | 12 4:27 | | | | | intravenous, NEEDED, Starting | | PM PDT | | | | | 02/10/12 at 0522, Until Sun | | | | | | | 02/21/12 at 2310, line patency, | | | | | | | per protocol | | | | | | + +---------+ + +--------+---+ +---------+ + +--------+---+ | New Bag | 02/20/20 | 50 Units | mL/hr | | | | 12 4:11 | | | | | | PM PDT | | | | +---------+ + +--------+---+ | New Bag | 02/19/20 | 50 Units | mL/hr | | | | 12 6:34 | | | | | | PM PDT | | | | +---------+ + +--------+---+ +---+---+ | | | +---+---+ + +---------+ +-------+--------+---+ | heparin 100 unit/mL IV flush | New Bag | 02/21/20 | 500 | mL/hr | | | 500 Units 500 Units, | | 12 3:28 | Units | | | | intravenous, NEEDED, Starting | | PM PDT | | | | | 02/21/12 at 1303, Until Sun | | | | | | | 02/21/12 at 2310, line patency, | | | | | | | per protocol | | | | | | + +---------+ +-------+--------+---+ +---+---+ | | | +---+---+ + +-------+ +------+---+---+ | lactulose (aka ENULAC) liquid | Given | 02/12/20 | 20 g | | | | 20 g 20 g (30 mL), oral, THREE | | 12 11:31 | | | | | TIMES DAILY NEEDED, Starting | | AM PDT | | | | | Karo 02/11/12 at 0738, Until Sun | | | | | | | 02/21/12 at 2310, constipation | | | | | | + +-------+ +------+---+---+ +---+---+ | | | +---+---+ + +-------+ +--------+---+---+ | levofloxacin (aka LEVAQUIN) | Given | 02/13/20 | 250 mg | | | | tablet 250 mg 250 mg, oral, | | 12 8:27 | | | | | EVERY 48 HOURS, First dose on Sat | | AM PDT | | | | | 02/13/12 at 1000, Until | | | | | | | Discontinued | | | | | | + +-------+ +--------+---+---+ +---+---+ | | | +---+---+ + +-------+ +--------+---+---+ | levofloxacin (aka LEVAQUIN) | Given | 02/10/20 | 500 mg | | | | tablet 500 mg 500 mg, oral, | | 12 6:27 | | | | | ONCE, 1 dose, 02/10/12 at 1700 | | PM PDT | | | | + +-------+ +--------+---+---+ +---+---+ | | | +---+---+ + +-------+ +------+---+---+ | loperamide (aka IMODIUM) | Given | 02/15/20 | 2 mg | | | | capsule 2 mg 2 mg, oral, | | 12 4:00 | | | | | NEEDED, Starting 02/09/12 at | | PM PDT | | | | | 1339, Until 02/21/12 at 2310, | | | | | | | after each loose stool | | | | | | + +-------+ +------+---+---+ +---+---+ | | | +---+---+ + +-------+ +--------+---+---+ | LORazepam (aka ATIVAN) tablet | Given | 02/21/20 | 0.5 mg | | | | 0.5-1 mg 0.5-1 mg, oral, EVERY 4 | | 12 1:30 | | | | | HOURS NEEDED, Starting Tue | | PM PDT | | | | | 02/09/12 at 1340, Until Sun | | | | | | | 02/21/12 at 2310, anxiety, | | | | | | | nausea/vomiting | | | | | | + +-------+ +--------+---+---+ +-------+ +--------+---+---+ | Given | 02/19/20 | 0.5 mg | | | | | 12 1:46 | | | | | | PM PDT | | | | +-------+ +--------+---+---+ | Given | 02/18/20 | 0.5 mg | | | | | 12 10:23 | | | | | | AM PDT | | | | +-------+ +--------+---+---+ +---+---+ | | | +---+---+ + +-------+ +-------+---+---+ | magnesium hydroxide (aka MILK | Given | 02/11/20 | 30 mL | | | | OF MAGNESIA) suspension 30 mL 30 | | 12 11:28 | | | | | mL, oral, EVERY 6 HOURS | | PM PDT | | | | | NEEDED, Starting 02/09/12 at | | | | | | | 1339, Until 02/21/12 at 2310, | | | | | | | constipation | | | | | | + +-------+ +-------+---+---+ +-------+ +-------+---+---+ | Given | 02/11/20 | 30 mL | | | | | 12 4:39 | | | | | | PM PDT | | | | +-------+ +-------+---+---+ | Given | 02/10/20 | 30 mL | | | | | 12 11:35 | | | | | | PM PDT | | | | +-------+ +-------+---+---+ +---+---+ | | | +---+---+ + +---------+ +-----+--------+---+ | magnesium sulfate IV 2 g 2 g, | New Bag | 02/20/20 | 2 g | mL/hr | | | intravenous, NEEDED, Starting | | 12 5:44 | | | | | 02/09/12 at 1531, Until Sun | | AM PDT | | | | | 02/21/12 at 2310, for mag 1.3-1.6 | | | | | | + +---------+ +-----+--------+---+ +---------+ +-----+--------+---+ | New Bag | 02/17/20 | 2 g | mL/hr | | | | 12 4:21 | | | | | | AM PDT | | | | +---------+ +-----+--------+---+ | New Bag | 02/11/20 | 2 g | mL/hr | | | | 12 4:00 | | | | | | AM PDT | | | | +---------+ +-----+--------+---+ +---+---+ | | | +---+---+ + +-------+ +-------+---+---+ | metoprolol tartrate (aka | Given | 02/21/20 | 25 mg | | | | LOPRESSOR) tablet 25 mg 25 mg, | | 12 8:13 | | | | | oral, TWICE DAILY, First dose on | | AM PDT | | | | | 02/16/12 at 1000, Until | | | | | | | Discontinued | | | | | | + +-------+ +-------+---+---+ +-------+ +-------+---+---+ | Given | 02/20/20 | 25 mg | | | | | 12 9:45 | | | | | | PM PDT | | | | +-------+ +-------+---+---+ | Given | 02/20/20 | 25 mg | | | | | 12 8:37 | | | | | | AM PDT | | | | +-------+ +-------+---+---+ +---+---+ | | | +---+---+ + +---------+ +------+--------+---+ | morphine injection Inj 1-4 mg | New Bag | 02/10/20 | 2 mg | mL/hr | | | 1-4 mg, intravenous, EVERY 2 | | 12 7:13 | | | | | HOURS NEEDED, Starting Tue | | PM PDT | | | | | 02/09/12 at 1339, Until Fri | | | | | | | 02/12/12 at 1640, for pain | | | | | | + +---------+ +------+--------+---+ +---+---+ | | | +---+---+ + +---------+ + + +---+ | NaCl 0.9 % IV 75 mL/hr, | New Bag | 02/09/20 | 75 mL/hr | 75 mL/hr | | | intravenous, ONCE, 1 dose, Tu | | 12 3:16 | | | | | 02/09/12 at 1415 | | PM PDT | | | | + +---------+ + + +---+ +---+---+ | | | +---+---+ + +-------+ +-------+---+---+ | omeprazole (aka PRILOSEC) | Given | 02/21/20 | 20 mg | | | | capsule 20 mg 20 mg, oral, | | 12 8:13 | | | | | DAILY, First dose on Wed02/10/12 | | AM PDT | | | | | at 0900, Until Discontinued | | | | | | + +-------+ +-------+---+---+ +-------+ +-------+---+---+ | Given | 02/20/20 | 20 mg | | | | | 12 8:37 | | | | | | AM PDT | | | | +-------+ +-------+---+---+ | Given | 02/19/20 | 20 mg | | | | | 12 8:43 | | | | | | AM PDT | | | | +-------+ +-------+---+---+ +---+---+ | | | +---+---+ + +-------+ +-------+---+---+ | oseltamivir (aka TAMIFLU) | Given | 04/15/20 | 75 mg | | | | capsule 75 mg 75 mg, oral, | | 12 9:55 | | | | | DAILY, First dose on Wed02/10/12 | | AM PDT | | | | | at 1730, Until Discontinued | | | | | | + +-------+ +-------+---+---+ +-------+ +-------+---+---+ | Given | 02/13/20 | 75 mg | | | | | 12 8:27 | | | | | | AM PDT | | | | +-------+ +-------+---+---+ | Given | 02/12/20 | 75 mg | | | | | 12 8:21 | | | | | | AM PDT | | | | +-------+ +-------+---+---+ +---+---+ | | | +---+---+ + +-------+ +-------+---+---+ | oxyCODONE CR (aka OXYCONTIN) | Given | 02/21/20 | 20 mg | | | | tablet 20 mg 20 mg, oral, EVERY | | 12 8:13 | | | | | 12 HOURS, First dose on Wed | | AM PDT | | | | | 02/09/12 at 2100, Until | | | | | | | Discontinued | | | | | | + +-------+ +-------+---+---+ +-------+ +-------+---+---+ | Given | 02/20/20 | 20 mg | | | | | 12 9:45 | | | | | | PM PDT | | | | +-------+ +-------+---+---+ | Given | 02/20/20 | 20 mg | | | | | 12 8:37 | | | | | | AM PDT | | | | +-------+ +-------+---+---+ +---+---+ | | | +---+---+ + +-------+ +-------+---+---+ | oxyCODONE immediate release | Given | 02/12/20 | 10 mg | | | | (aka ROXICODONE) tablet 5-10 mg | | 12 5:35 | | | | | 5-10 mg, oral, EVERY 4 HOURS | | AM PDT | | | | | NEEDED, Starting 02/09/12 at | | | | | | | 1339, Until 02/13/12 at 0411, | | | | | | | for pain | | | | | | + +-------+ +-------+---+---+ +-------+ +-------+---+---+ | Given | 02/11/20 | 10 mg | | | | | 12 11:31 | | | | | | PM PDT | | | | +-------+ +-------+---+---+ | Given | 02/11/20 | 10 mg | | | | | 12 6:49 | | | | | | PM PDT | | | | +-------+ +-------+---+---+ +---+---+ | | | +---+---+ + +-------+ +------+---+---+ | oxyCODONE immediate release | Given | 02/21/20 | 5 mg | | | | (aka ROXICODONE) tablet 5-10 mg | | 12 3:44 | | | | | 5-10 mg, oral, EVERY 4 HOURS | | PM PDT | | | | | NEEDED, Starting 02/13/12 at | | | | | | | 0416, Until 02/21/12 at 2310, | | | | | | | for pain | | | | | | + +-------+ +------+---+---+ +-------+ +-------+---+---+ | Given | 02/20/20 | 10 mg | | | | | 12 5:56 | | | | | | AM PDT | | | | +-------+ +-------+---+---+ | Given | 02/19/20 | 10 mg | | | | | 12 7:11 | | | | | | PM PDT | | | | +-------+ +-------+---+---+ +---+---+ | | | +---+---+ + +-------+ +------+---+---+ | prochlorperazine (aka | Given | 02/19/20 | 5 mg | | | | COMPAZINE) tablet 5-10 mg 5-10 | | 12 5:20 | | | | | mg, oral, EVERY 4 HOURS | | AM PDT | | | | | NEEDED, Starting 02/09/12 at | | | | | | | 1340, Until 02/21/12 at 2310, | | | | | | | nausea/vomiting | | | | | | + +-------+ +------+---+---+ +-------+ +------+---+---+ | Given | 02/18/20 | 5 mg | | | | | 12 6:01 | | | | | | PM PDT | | | | +-------+ +------+---+---+ | Given | 02/18/20 | 5 mg | | | | | 12 7:13 | | | | | | AM PDT | | | | +-------+ +------+---+---+ +---+---+ | | | +---+---+ + +---------+ +--------+--------+---+ | riTUXimab (aka RITUXAN) 800 mg | New Bag | 02/20/20 | 800 mg | mL/hr | | | in NaCl 0.9 % IV {STANDARD} 800 | | 12 6:33 | | | | | mg, intravenous, ONCE, 1 dose, | | PM PDT | | | | | 02/20/12 at 1300 | | | | | | + +---------+ +--------+--------+---+ +---+---+ | | | +---+---+ documented in this encounter
--- OUTSIDE RECORDS SUMMARY | ~2020-06-17 | XMS | Encounter Summary ---
Demographics + + + | Address | [address] | | | [place] [address] | + + + | Home Phone | | + + + | Preferred Language | Unknown | + + + | Marital Status | | + + + | Episcopal Affiliation | Unknown | + + + | Race | or | + + + | Ethnic Group | Not or | + + + Author + + + | Author | [facility] | | | and [place] | + + + | Organization | [facility] | | | and [...] [place] | | | | | [address] | | + + + + + | Greta Broncheau | ECON | [place] | | | | | [address] | | + + + + + Care Team Providers + +------+ + | Care Pot Runner Name | Role | Phone | + +------+ + PCP | Unavailable | + +------+ + Encounter Details +--------+ + + + + | Date | Type | Department | Care Team | Description | +--------+ + + + + | 12/24/ | Hospital | [facility] | [place], | | | 2011 - | Encounter | MED CTR [facility] | Antonio Infante MD [address] | | | | | CENTER [facility] [address] | [facility] | | | / | | [place] | [address] [place] | | | 2011 | | [address] | [id number] | | | | | [phone] | | | +--------+ + + + [...] encounter Progress Notes Antonio Renee MD - 12/05/2011 4:12 AM PST PROGRESS NOTE: December 07, 2011 PATIENT IDENTIFICATION: Frida Christian IDENTIFYING STATEMENT: Frida Christian is a 51-year-old woman from [place], [place], with Burkitt's lymphoma. ACTIVE DIAGNOSES: 1. Presentation in August 2001, with intractable searing abdominal pain. Symptoms prog ressed and on October 05, 2011, she underwent advanced imaging that demonstrated diffuse ma lignant lymphadenopathy throughout the retroperitoneum. 2. Laparoscopic lymph node biops y on November 10, 2011, at [facility], demonstrated a high grade B cell lymphoma, consistent with Burkitt's lymphoma, positive for BCL6, CD10, CD19, CD20, CD22, and kappa light chains. 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 3. Initiation of Rituxan/Hyper-CVAD chemotherapy at [facility] on November 15, 2011. CHIEF COMPLAINT: Frida is referred to me by Dr. Dylan Wheatley of [facility], cycle #1b, day #6 of Rituxan/H yper-CVAD chemotherapy. REVIEW OF SYSTEMS: CONSTITUTIONAL: Anorexia and weight loss have resolved. Denies high fever, shaking chill s, fatigue, nausea, vomiting. ENMT: Denies odynophagia, dysphagia or tinnitus. CARDIOVASCULAR: Denies shortness of breath, dyspnea on exertion, chest pain, palpitations or orthopnea. RESPIRATORY: Denies cough, hemoptysis or sputum production. GASTROINTESTIONAL: Denies a bdominal pain, constipation, diarrhea, melena or bright red blood per rectum. GENITOURINARY: Denies hematuria or dysuria. MUSCULOSKELETAL: Denies joint pain or tenderness. 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 ENDOCRINE: Denies peripheral edema or heat/cold intolerance. HEMATOLOGIC: Denies spont aneous bruising or bleeding. PAST MEDICAL HISTORY: None. PAST SURGICAL HISTORY: , 1981. PSYCHOSICAL HISTORY:She lives alone and independently in [place], [place]. HABITS: Tobacco - positive for tobacco use. Alcohol - positive for remote history of alcohol use. FAMILY HISTORY: There is no history of cancer in first degree relatives. ROUTINE MEDICATIONS: Acyclovir 400 mg orally daily [...] ALLERGIES:NKDA. PHYSICAL EXAMINATION: VITAL SIGNS: Blood pressure 128/72, pulse 78, temperature 37.0 C, saturation of oxygen is 98% on room air. EYES: Conjunctivae clear. Sclerae anicteric. EMNT: Oropharynx free of lesions. Mucous membranes moist. CARDIOVASCULAR: Regular rate and rhythm. Normal S1, S2, without rubs, gallops or murmurs. LUNGS: Good air movement bilaterally. No rhonchi, wheeze or rales. ABDOMEN: Soft, nontender and nondistended with normoactive bowel sounds. No hepatomegaly, no splenomegaly, no palpable masses. No ascites. LYMPH/HEM/IMMUNO: No cervical, supraclavicular or inguinal lymphadenopathy. MUSCULOSKELETAL: No joint tenderness or swelling. SKIN: No petechiae, ecchymoses or rash. EXTREMITIES: There is a double lumen right upper extremity PICC line. NEUROLOGIC: Alert and oriented times three. Face is symmetric. Voice is articulate. Sta tion and gait are within normal limits. LABORATORY DATA: Hemoglobin 8.8, hematocrit 26.2%, platelet count 334K, white count 2400, absolute neutroph il count 2300. Comprehensive metabolic panel is notable for a BUN of 5, creatinine of 0.49, ALT is 76, up per limits of normal 42, LDH 213, upper limits of normal 180. ASSESSMENT: Burkitt's lymphoma. PLAN:Frida will receive Neulasta as part of her treatment plan today. [facility]a, of Rituxan/Hyper-CVAD chemotherapy, along wit h prophylactic intrathecal methotrexate. PROCEDURE:She received 6 mg of subcutaneous Neulasta without adverse effects. CC: [facility] <Electronically Signed by Antonio Renee MD> 12/14/11 1323 documented in this encounter Plan of Treatment Not on filedocumented as of this encounter Procedures + +--------+ + + + | Procedure Name | Priori | Date/Time | Associated Diagnosis | Comments | | | ty | | | | + +--------+ + + + | CBC WITH | Routin | 12/24/2011 | | Results for this | | DIFFERENTIAL | e | 9:01 AM | | procedure are in the | | | | PST | | results section. | + +--------+ + + + | LACTATE | Routin | 12/24/2011 | | Results for this | | DEHYDROGENASE | e | 9:01 AM | | procedure are in the | | | | PST | | results section. | + +--------+ + + + | COMPREHENSIVE | Routin | 12/24/2011 | | Results for this | | METABOLIC PANEL | e | 9:01 AM | | procedure are in the | | | | PST | | results section. | + +--------+ + + + | CBC WITH | Routin | 12/07/2011 | | Results for this | | DIFFERENTIAL | e | 11:17 AM | | procedure are in the | | | | PST | | results section. | + +--------+ + + + | LACTATE | Routin | 12/07/2011 | | Results for this | | DEHYDROGENASE | e | 11:17 AM | | procedure are in the | | | | PST | | results section. | + +--------+ + + + | COMPREHENSIVE | Routin | 12/07/2011 | | Results for this | | METABOLIC PANEL | e | 11:17 AM | | procedure are in the | | | | PST | | results section. | + +--------+ + + + documented in this encounter Results Comprehensive Metabolic Panel (12/24/2011 9:01 AM PST) + + + + + + | Component | Value | Ref Range | Performed | Pathologist | | | | | At | Signature | + + + + + + | Glucose | 137 (H) | 70 - 109 mg/dL | [...] + + + + | ALT | 17 | 6 - 45 IU/L | [facility] [...] | 0.60 | 0.60 - 1.30 | [facility] | [...] + + + + | BUN/Creatin | 8.3 (L) | 12 - 20 | [facility] [...] + + + + | K | 3.0 (L)Comment: LOW | 3.5 - 5.1 mEq/l | [facility] | | | | POTASSIUM OFTEN | | [facility] | | | | [facility] WITH LOW [...] + + + | Anion Gap | 12.0 | 6.0 - 17.0 | [facility] | [...] + | [facility] | [address] | [place] | [phone] | | [facility] | | [address] | | | - LABORATORY | | | | + + + + + | [facility] | [address] | [place], [place] | | | [facility] | | [id number] [place] [address] | | | - LABORATORY | | | | + + + + + Lactate Dehydrogenase (12/24/2011 9:01 AM PST) + +---------+ + + + | Component | Value | Ref Range | Performed | Pathologist | | | | | At | Signature | + +---------+ + + + | LDH TOTAL | 255 (H) | 91 - 180 IU/L | [facility] | | | | | | [facility] [address] | [place] | [phone] | | [facility] | | [address] | | | - LABORATORY | | | | + + + + + | [facility] | [address] | [place], [place] | | | [facility] | | [id number] | | | - LABORATORY | | | | + + + + + CBC with Differential (12/24/2011 9:01 AM PST) + + + + + + | Component | Value | Ref Range | Performed | Pathologist | | | | | At | Signature | + + + + + + | White Blood | 13.6 (H) | 4.0 - 11.0 K/uL | [facility] | | | Cells | | | [facility] | | | | | | MEDICAL | | | | | | CENTER - | | | | | | LABORATORY | | + + + + + + | Red Blood | 3.50 (L) | 3.70 - 5.20 | [facility] [...] + + + + | Hematocrit | 29.2 (L) | 34.0 - 47.0 % | [facility] | | | | | | [facility] | | | | | | [facility]ICAL | | | | | | CENTER - | | | | | | LABORATORY | | + + + + + + | MCV | 83.6 | 83.0 - 101.0 fL | [facility] | | | | | | [facility] | | | | | | MEDICAL | | | | | | CENTER - | | | | | | LABORATORY | | + + + + + + | MCH | 28.3 | 28.0 - 35.0 pg | [facility] [...] + + + + | RDW-CV | 16.4 (H) | <15.0 % | [facility] | | | | | | [facility] | | | | | | MEDICAL | | | | | | CENTER - | | | | | | LABORATORY | | + + + + + + | Platelet | 422 | 140 - 440 K/uL | [facility] | | | Count | | | [facility] | | | | | | MEDICAL | | | | | | CENTER - | | | | | | LABORATORY | | + + + + + + | % | 67.6 | 45 - 75 % | [facility] | | | Neutrophils | | | [facility] | | | | | | MEDICAL | | | | | | CENTER - | | | | | | LABORATORY | | + + + + + + | % | 19.8 (L) | 20 - 45 % | [facility] | | | Lymphocytes | | | [facility] | | | | | | MEDICAL | | | | | | CENTER - | | | | | | LABORATORY | | + + + + + + | % Monocytes | 12.3 (H) | 4 - 12 % | [...] + + + + | Absolute | 9.2 (H) | 1.5 - 6.6 K/uL | [facility] | | | Neutrophils | | | [facility] | | | | | | MEDICAL | | | | | | CENTER - | | | | | | LABORATORY | | + + + + + + | Absolute | 2.7 | 0.6 - 3.2 K/uL | [facility] | | | Lymphocytes | | | [facility] | | | | | | MEDICAL | | | | | | CENTER - | | | | | | LABORATORY | | + + + + + + | Absolute | 1.7 (H) | 0.0 - 1.0 K/uL | [facility] [...] + | [facility] | [address] | [place] | [phone] | | [facility] | | [address] | | | - LABORATORY | | | | + + + + + | [facility] | [address] | [place] | | | [facility] | | [address], [facility] | | | - LABORATORY | | | | + + + + + Comprehensive Metabolic Panel (12/07/2011 11:17 AM PST) + + + + + + | Component | Value | Ref Range | Performed | Pathologist | | | | | At | Signature | + + + + + + | Glucose | 97 | 70 - 109 mg/dL | [facility] [...] + + + + | Alkaline | 106 | 40 - 110 IU/L | [facility] | | | Phosphatase | | | [facility] | | | | | | MEDICAL | | | | | | CENTER - | | | | | | LABORATORY | | + + + + + + | AST | 36 | 10 - 42 IU/L | [facility] | | | | | | [facility] | | | | | | MEDICAL | | | | | | CENTER - | | | | | | LABORATORY | | + + + + + + | ALT | 76 (H) | 6 - 45 IU/L | [...] + + + + | Total | 5.7 (L) | 6.0 - 7.8 gm/dL | [...] + + + + | Creatinine | 0.49 (L) | 0.60 - 1.30 | [facility] [...] + + + + | BUN/Creatin | 10.2 (L) | 12 - 20 | [facility] [...] + | [facility] | [address] | [place], [place] | [phone] | | [facility] | | [address] | | | - LABORATORY | | | | + + + + + | [facility] | [address] | [place], [place] | | | [facility] | | [id number] | | | - LABORATORY | | | | + + + + + Lactate Dehydrogenase (12/07/2011 11:17 AM PST) + +---------+ + + + | Component | Value | Ref Range | Performed | Pathologist | | | | | At | Signature | + +---------+ + + + | LDH TOTAL | 213 (H) | 91 - 180 IU/L | [facility] [...] [address] | [place] | [phone] | | [facility] | | [address] | | | - LABORATORY | | | | + + + + + | [facility] | [address] | [place] | | | [facility] | | [address] | | | - LABORATORY | | | | + + + + + CBC with Differential (12/07/2011 11:17 AM PST) + + + + + + | Component | Value | Ref Range | Performed | Pathologist | | | | | At | Signature | + + + + + + | White Blood | 2.4 (LL) | 4.0 - 11.0 K/uL | [facility] | | | Cells | | | [facility] | | | | | | MEDICAL | | | | | | CENTER - | | | | | | LABORATORY | | + + + + + + | Red Blood | 3.18 (L) | 3.70 - 5.20 | [facility] | | | Cells | | M/uL | [facility] | | | | | | MEDICAL | | | | | | CENTER - | | | | | | LABORATORY | | + + + + + + | Hemoglobin | 8.8 (L) | 11.5 - 16.0 | [facility] [...] + + + + | MCV | 82.4 (L) | 83.0 - 101.0 fL | [facility] | | | | | | [facility] | | | | | | MEDICAL | | | | | | CENTER - | | | | | | LABORATORY | | + + + + + + | MCH | 27.6 (L) | 28.0 - 35.0 pg | [facility] | | | | | | [facility] | | | | | | MEDICAL | | | | | | CENTER - | | | | | | LABORATORY | | + + + + + + | MCHC | 33.5 | 32.0 - 36.0 | [facility] | | | | | g/dL | [facility] | | | | | | MEDICAL | | | | | | CENTER - | | | | | | LABORATORY | | + + + + + + | RDW-CV | 14.9 | <15.0 % | [facility] | | | | | | [facility] | | | | | | MEDICAL | | | | | | CENTER - | | | | | | LABORATORY | | + + + + + + | Platelet | 334 | 140 - 440 K/uL | [facility] | | | Count | | | [facility] | | | | | | MEDICAL | | | | | | CENTER - | | | | | | LABORATORY | | + + + + + + | % | 96.6 (H) | 45 - 75 % | [facility] | | | Neutrophils | | | [facility] | | | | | | MEDICAL | | | | | | CENTER - | | | | | | LABORATORY | | + + + + + + | % | 3.3 (L) | 20 - 45 % | [facility] | | | Lymphocytes | | | [facility] | | | | | | MEDICAL | | | | | | CENTER - | | | | | | LABORATORY | | + + + + + + | % Monocytes | 0.1 (L) | 4 - 12 % | [...] + + | Absolute | 2.3 | 1.5 - 6.6 K/uL | [facility] | | | Neutrophils | | | [facility] | | | | | | MEDICAL | | | | | | CENTER - | | | | | | LABORATORY | | + + + + + + | Absolute | 0.1 (L) | 0.6 - 3.2 K/uL | [...] + | [facility] | [address] | [place] | [phone] | | [facility] | | [address] | | | - LABORATORY | | | | + + + + + | [facility] | [address] | [place] | | | [facility] | | [address] [place] [address] | | | - LABORATORY | | | | + + + + + documented in this encounter Visit Diagnoses Not on filedocumented in this encounter"
--- OUTSIDE RECORDS SUMMARY | ~2020-06-17 | XMS | Encounter Summary ---
Demographics + + + | Address | [address] | | | [place] [address] | + + + | Home Phone [...] + + + | Author | [facility] | + + + | Organization | [facility] | + + + | Address | Unknown | + + + | Phone | Unavailable | + + + Support + + + + + | Name | Relationship | Address | Phone | + + + + + | Yue Fischer | ECON | [address] | | | | | [place] | | | | | [address] | | + + + + + | Greta Broncheau | ECON | Unknown | | + + + + + Care Team Providers + +------+ + | Care Field Tax Auditor Name | Role | Phone | + +------+ + | Becky Jennings | PCP | | + +------+ + Encounter Details +--------+ + + + + | Date | Type | Department | Care Team | Description | +--------+ + + + + | 11/13/ | Results | Hematology/Medical | Yossi Hutchins MD | | | 2011 | Only | Oncology at [facility] | [address] | | | | | [address] | [facility], | | | | | Mailcode: CH7 | [place] [address] | | | | | [facility] | [phone] | | | | | and [place], | | | | | | [facility] | | | | | | [place], [place] | | | | | | [address] | | | | | | [phone] | | | +--------+ + + + [...] | + +--------+ + + + | HIV RAPID | Routin | 11/13/2011 | | Results for this | | ED/OB/EMPLOYEE | e | 8:22 PM | | procedure are in the | | HEALTH ONLY | | PST | | results section. | + +--------+ + + + | HEPATITIS B SURFACE | Routin | 11/13/2011 | | Results for this | | AG, SERUM | e | 8:22 PM | | procedure are in the | | | | PST | | results section. | + +--------+ + + + | HEPATITIS B SURFACE | Routin | 11/13/2011 | | Results for this | | AG, SERUM | e | 8:22 PM | | procedure are in the | | | | PST | | results section. | + +--------+ + + + | HEPATITIS C VIRUS | Routin | 11/13/2011 | | Results for this | | W/CONFIRMATION | e | 8:22 PM | | procedure are in the | | | | PST | | results section. | + +--------+ + + + | DIFFERENTIAL | Routin | 11/13/2011 | | Results for this | | | e | 4:00 PM | | procedure are in the | | | | PST | | results section. | + +--------+ + + + | CBC, WITH | Routin | 11/13/2011 | | Results for this | | DIFFERENTIAL | e | 4:00 PM | | procedure are in the | | | | PST | | results section. | + +--------+ + + + documented in this encounter Results HEPATITIS B SURFACE AG, SERUM (11/13/2011 8:22 PM PST) + + + + + + | Component | Value | Ref Range | Performed | Pathologist | | | | | At | Signature | + + + + + + | HEPATITIS B | (See Note) | Negative | [facility] | | | SURFACE | | | [facility]IONAL | | | AG, SERUM | | | LABORATORY | | + + + + + + + + | Specimen | + + | | + + + + + | Narrative | Performed At | + + + | [facility] | [facility] | | [facility] [address] [facility] | REGIONAL | | [place] [address] NOTE: TEST NOT PERFORMED: Duplicate | LABORATORY | | order. | | + + + + + + + + | Performing | Address | City/State/Zipcode | Phone Number | | Organization | | | | + + + + + | [facility] | [address] | [place] [address] | | | LABORATORY | | | | + + + + + HEPATITIS B SURFACE AG, SERUM (11/13/2011 8:22 PM PST) + + + + + + | Component | Value | Ref Range | Performed | Pathologist | | | | | At | Signature | + + + + + + | HEPATITIS B | Dupl order. | Negative | [facility] | | | SURFACE | | | [...] + + + | [facility] | [address] | [place] [address] | | | LABORATORY | | | | + + + + + HEPATITIS C AB W/CONFIRMATION REFLEX PCR (11/13/2011 8:22 PM PST) + + + + + + | Component | Value | Ref Range | Performed | Pathologist | | | | | At | Signature | + + + + + + | HEPATITIS C | NegativeComment: | Negative | [facility] | | | AB | Reference Range: | | REGIONAL | | | | Negative | | LABORATORY | | + + + + + + + + | Specimen | + + | | + + + + + + + | Performing | Address | City/State/Zipcode | Phone Number | | Organization | | | | + + + + + | [facility] | [address] | [place] [address] | | | LABORATORY | | | | + + + + + HIV RAPID ED/OB/EMPLOYEE HEALTH ONLY (11/13/2011 8:22 PM PST) + + + + + + | Component | Value | Ref Range | Performed | Pathologist | | | | | At | Signature | + + + + + + | HIV RAPID | Non-Reactive | | [facility] | | | TEST | | | DEPARTMENT | | | | | | OF | | | | | | PATHOLOGY | | + + + + + + + + | Specimen | + + | | + + + + + | Narrative | Performed At | + + + | message left at [facility] | [facility] | | | DEPARTMENT OF | | | PATHOLOGY | + + + + + + + + | Performing | Address | City/State/Zipcode | Phone Number | | Organization | | | | + + + + + | [facility] DEPARTMENT OF | [address] | [place] [address] | | | PATHOLOGY | [address] | | | + + + + + CBC, WITH DIFFERENTIAL (11/13/2011 4:00 PM PST) + + + + + + | Component | Value | Ref Range | Performed | Pathologist | | | | | At | Signature | + + + + + + | WHITE CELL | 7.2 | 4.4 - 11.0 K/cu | [facility] | | | COUNT | | mm | DEPARTMENT | | | | | | OF | | | | | | PATHOLOGY | | + + + + + + | RED CELL | 4.31 | 4.00 - 5.20 | [facility] | | | COUNT | | M/cu mm | DEPARTMENT | | | | | | OF | | | | | | PATHOLOGY | | + + + + + + | HEMOGLOBIN | 11.9 (L) | 12.0 - 16.0 | [facility] | | | | | g/dL | DEPARTMENT | | | | | | OF | | | | | | PATHOLOGY | | + + + + + + | HEMATOCRIT | 35.4 (L) | 36.0 - 46.0 % | [...] + + + + | PLATELET | 508 (H) | 150 - 400 K/cu | [...] | + + + + + | [facility] | [address] | [place] [address] | | | PATHOLOGY | [address] | | | + + + + + DIFFERENTIAL (11/13/2011 4:00 PM PST) + +-------+ + + + | Component | Value | Ref Range | Performed | Pathologist | | | | | At | Signature | + +-------+ + + + | NEUTROPHIL | 61 | 50 - 70 % | [facility] | | | % | | | DEPARTMENT | | | | | | OF | | | | | | PATHOLOGY | | + +-------+ + + + | LYMPHOCYTE | 25 | 18 - 42 % | [facility] | | | % | | | DEPARTMENT | | | | | | OF | | | | | | PATHOLOGY | | + +-------+ + + + | MONOCYTE % | 9 (H) | 2 - 8 % | [facility] | | | | | | DEPARTMENT | | | | | | OF | | | | | | PATHOLOGY | | + +-------+ + + + | EOS % | 4 (H) | 1 - 3 % | [facility] | | | | | | DEPARTMENT | | | | | | OF | | | | | | PATHOLOGY | | + +-------+ + + + | BASO % | 1 | <3 % | [facility] | | | | | | DEPARTMENT | | | | | | OF | | | | | | PATHOLOGY | | + +-------+ + + + | NEUTROPHIL | 4.4 | 1.8 - 7.7 K/cu | [facility] | | | # | | mm | DEPARTMENT | | | | | | OF | | | | | | PATHOLOGY | | + +-------+ + + + | LYMPHOCYTE | 1.8 | 1.0 - 4.8 K/cu | [facility] | | | # | | mm | DEPARTMENT | | | | | | OF | | | | | | PATHOLOGY | | + +-------+ + + + | MONOCYTE # | 0.7 | <0.9 K/cu mm | [facility] | | | | | | DEPARTMENT | | | | | | OF | | | | | | PATHOLOGY | | + +-------+ + + + | EOS # | 0.3 | <0.6 K/cu mm | [facility] | | | | | | DEPARTMENT | | | | | | OF | | | | | | PATHOLOGY | | + +-------+ + + + | BASO # | 0.1 | <0.3 | [facility] | | | [...] + + + + + | [facility] DEPARTMENT | [address] | [place] [address] | | | PATHOLOGY | [address] | | | + + + + + documented in this encounter Visit Diagnoses Not on filedocumented in this encounter"
--- OUTSIDE RECORDS SUMMARY | ~2020-06-17 | XMS | Encounter Summary ---
Demographics + + + | Address | [address] | | | [place] [address] | + + + | Home Phone [...] + + + | Author | [facility] | | | and [place] | + + + | Organization | [facility] | | | and [...] [place] | | | | | [address] | | + + + + + | Greta Broncheau | ECON | [place] | | | | | [address] | | + + + + + Care Team Providers + +------+ + | Care Director Of Marketing Name | Role | Phone | + +------+ + | Becky Jennings | PCP | | + +------+ + Reason for Visit + +--------+ + | Reason | Onset | Comments | | | Date | | + +--------+ + | Medication Refill | 09/18/ | | | | 2013 | | + +--------+ + Encounter Details +--------+ + + + + | Date | Type | Department | Care Team | Description | +--------+ + + + + | 09/18/ | Telephone | [facility] | [place], | Medication Refill | | 2013 | | [facility] | Antonio Infante MD [address] | | | | | [facility] [address] | [facility] | | | | | [address] | [address] [place] | | | | | [place] [address] | [address] | | | | | [phone] | | | +--------+ + + + [...] this encounter Miscellaneous Notes Telephone Encounter - Gladys Rankin RN - 09/18/2014 2:44 PM PSTDrEmanuel Renee not ified. elephone Encounter - Gladys Rankin RN - 09/18/2014 12:31 PM PSTChar in [facility] Renee hand carry the hydrocodone rx with him tomorrow. elephone Encounter - Gladys Rankin RN - 09/18/2014 11:44 AM PSTCall to patient to verify analgesic needed, no answer. 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
--- OUTSIDE RECORDS SUMMARY | ~2020-06-17 | XMS | Encounter Summary ---
Demographics + + + | Address | [address] | | | [place] [address] | + + + | Home Phone | | + + + | Preferred Language | Unknown | + + + | Marital Status | | + + + | Jainism Affiliation | Unknown | + + + | Race | or | + + + | Ethnic Group | Not or | + + + Author + + + | Author | [facility] | | | and [place] | + + + | Organization | [facility] | | | and [place] [...] [place] | | | | | [address] | | + + + + + | Greta Estebaneau | ECON | [place] | | | | | [address] | | + + + + + Care Team Providers + +------+ + | Care Wedding Transportation Driver Name | Role | Phone | + +------+ + | Becky Jennings | PCP | | + +------+ + Encounter Details +--------+ + + + + | Date | Type | Department | Care Team | Description | +--------+ + + + + | 07/04/ | Hospital | [facility] | | | | 2012 - | Encounter | [facility] | | | | | | CENTER [address] | | | | 07/31/ | | [place] | | | | 2012 | | [address] | | | | | | [phone] | | | +--------+ + + + [...] | 03/25/20 | | | (VITAMIN D3) [address] | mouth Once a week. | | [...] | + +-------+ + + + | White Blood | 7.7 | 4.0 - 11.0 K/uL | [facility] | [facility] | | [facility] - | | | | | | LABORATORY | | + +-------+ + + + | Red Blood | 3.76 | 3.70 - 5.20 | [...] + | [facility] | [address] | [place] | [phone] | | [facility] | | [address] | | | - LABORATORY | | | | + + + + + | [facility] | [address] | [place] | | | [facility] | | [id number] | | | - [...] 93 | 70 - 109 mg/dL | LAURAE [...] | 0.76 | 0.60 - 1.30 | ALIVIA | [...] | 14.0 | 6.0 - 17.0 | [facility] | [...] + | [facility] | [address] | [place], [place] | [phone] | | [facility] | | [address] | | | - LABORATORY | | | | + + + + + | [facility] | [address] | [place], [place] | | | [facility] | | [id number] | | | - LABORATORY | | | | + + + + + Lactate Dehydrogenase (07/04/2013 2:16 PM PDT) + +-------+ + + + | Component | Value | Ref Range | Performed | Pathologist | | | | | At | Signature | + +-------+ + + + | LDH TOTAL | 152 | 91 - 180 IU/L | [facility] [...] [address] | [place] | [phone] | | [facility] | | [address] | | | - LABORATORY | | | | + + + + + | [facility]. | [address] | [place] | | | [facility] | | [address] | | | - LABORATORY | | | | + + + + + documented in this encounter Visit Diagnoses Not on filedocumented in this encounter"
--- OUTSIDE RECORDS SUMMARY | ~2020-06-17 | XMS | Encounter Summary ---
Demographics + + + | Address | [address] | | | [place] [address] | + + + | Home Phone | | + + + | Preferred Language | Unknown | + + + | Marital Status | Single | + + + | Gnosticism Affiliation | NON | + + + | Race | or | + + + | Ethnic Group | Not or | + + + Author + + + | Author | [facility] | + + + | Organization | [facility] | + + [...] [place] | | | | | [address] | | + + + + + | Greta [place]che[place] | ECON | Unknown | | + + + + + Care Team Providers + +------+ + | Care Messenger Floorperson Name | Role | Phone | + +------+ + | Becky Jennings | PCP | | + +------+ + Reason for Referral Consult to [place] (Routine) +--------+--------+ + + + + | Status | Reason | Specialty | Diagnoses / | Referred By | Referred To | | | | | Procedures | Contact | Contact | +--------+--------+ + + + + | Closed | | Surgical | Diagnoses | Hao, | Sujey, | | | | Oncology | | MD Osiel | MD Osiel | | | | | Retroperiton | [address] | [address] | | | | | eal mass | Ave | Ave | | | | | Other | [place], [place] | [place], [place] | | | | | specified | [address] | [address] | | | | | pre-operativ | Phone: | Phone: | | | | | e | [phone] | [phone] | | | | | examination | Fax: | Fax: | | | | | Procedures | [phone] | [phone] | | | | | REQUEST TO | | | | | | | SURGERY | | | | | | | LOAN COORDINATOR | | | | | | | HI | | | | | | | LAP,CHOLECYS | | | | | | | TECTOMY HI | | | | | | | REMOVAL | | | | | | | GALLBLADDER | | | | | | | HI | | | | | | | EXPLORATORY | | | | | | | RETROPERITON | | | | | | | EAL | | | +--------+--------+ + + + + Reason for Visit Consultation (Routine) +--------+--------+ + + + + | Status | Reason | Specialty | Diagnoses / | Referred By | Referred To | | | | | Procedures | Contact | Contact | +--------+--------+ + + + + | Closed | | Surgical | | Manoj, | Sujey, | | | | Oncology | | Jonathan Merlos MD | MD Osiel | | | | | | MICHEAL POOLE | [address] | | | | | | SURGICAL | Ave | | | | | | CL[address] | [place], [place] | | | | | | [address] | [address] | | | | | | AVE | Phone: | | | | | | [place], | [phone] | | | | | | [place] [address] | Fax: | | | | | | Phone: | [phone] | | | | | | [phone] | | | | | | | Fax: | | | | | | | [phone] | | +--------+--------+ + + + + Encounter Details +--------+---------+ + + + | Date | Type | Department | Care Team | Description | +--------+---------+ + + + | 10/22/ | Office | Surgical Oncology | Osiel Rm MD | Retroperitoneal mass | | 2010 | Visit | at [facility] [address] | [address] | (Primary Dx); Other | | | | Ave [facility] | [place], [place] | specified | | | | [facility], | [address] | pre-operative | | | | Building [address] | [phone] | examination | | | | [place], [place] | | | | | | [address] | | | | | | [phone] | | | +--------+---------+ + + + [...] + + + | Blood Pressure | 107/59 | 10/22/2011 10:44 AM | | | | | PST | | + + + + + | Pulse | 103 | 10/22/2011 10:44 AM | | | | | PST | | + + + + + | Temperature | 36.7 C (98 F) | 10/22/2011 10:44 AM | | | | | PST | | + + + + + | Respiratory Rate | 15 | 10/22/2011 10:44 AM | | | | | PST | | + + + + + | Oxygen Saturation | - | - | | + + + + + | Inhaled Oxygen | - | - | | | Concentration | | | | + + + + + | Weight | 90.7 kg (199 lb 14.4 | 10/22/2011 10:44 AM | | | | oz) | PST | | + + + + + | Height | 162.6 cm (5' 4") | 10/22/2011 10:44 AM | | | | | PST | | + + + + + | Body Mass Index | 34.31 | 10/22/2011 10:44 AM | | | | | PST | | + + + + + documented in this encounter Patient Instructions Patient Instructions Ruth Basurto RN - 10/22/2011 11:58 AM PST Registration Locations (please check in at one of the following registration desks prior to surgery) For surgeries scheduled to take place on the [place] at the [facility]: Surgeries scheduled in the [facility] registration is located on the 4th floor of [facility] (Day Surgery). Surgeries scheduled in the [facility]: registration is located on the 9th floor. Surgeries scheduled in [facility]: registration is located on the 6th floor. Surgeries scheduled in the [facility]: registration is located i n the [facility] main lobby on the first floor. For surgeries scheduled to take place at the [facility]: registration is l ocated on the 4th floor (Surgery Center). Important Information Due to the increased prevalence of pests in our community, we are asking patients to partne r with us to keep our hospital clean. If you have noticed bugs or other pests in your home, on your belongings or on your body, please contact your doctor's office prior to your admis adele. For your safety and protection, please limit what you bring to the hospital. All valuables should be left at home. This includes pillows, blankets, clothing, purses, wallets, money an d jewelry. Patients may not bring personal electronics into the hospital, including hairdry ers, electric kristi, radios and CD players. If you use specialized medical equipment at [facility], please check with your provider before bringing it with you into the hospital. Registration Process for all Admissions/Surgeries 1. Please bring your insurance card(s) with you and be prepared to pay any co-payment, co-i nsurance or deposit that may be required. 2. Once you arrive at the registration desk, you will be interviewed by a Patient Access Se rvice Specialist (BRENT). Demographics will be verified (example: name, date of , Social Security Number, address, insurance). 3. You will be asked to sign some paperwork: Terms and Conditions of Service, Notice of Caroline vacy Practices Acknowledgement and Genetic Testing Opt Out. 4. You will be given some paperwork: copies of any forms signed by you, Patient Rights, Res ponsibilities and Safety, Understanding Advance Directives, and Smoking Cessation Brochure. INPATIENT SURGERY INFORMATION at [facility] Prior to surgery, you will need to do the followin. [facility] Appointment (Perioperative Medicine Clinic) is on at . The [facility] clinic is located on the 4th floor of the [facility]. Post surgery: 1. Call Surgical Oncology Office ([phone]) To Make Post-Op Appointment. ANCILLARY SERVICES 1. Blood Work (Lab is located on the 3rd floor of [facility].) No appointment required. 2. Chest Xray (Radiology is located on the 3rd floor of [facility].) No appointment required. 3. EKG (EKG is located on the 9th floor of [facility].) No appointment required. *Stop blood thinners (Aspirin, Warfarin, etc.) as directed one week prior to surgery. * Nothing to eat or drink (including water) after midnight on 11/08/11 (the night prior to yo ur surgery). * The office will call you with your check in time on 11/06/11 -between 1:00 and 3:00pm. If you have not received a call by 3:00 pm, please call [phone]. * Check in at [facility] 9th Floor Admitting desk on 11/09/11. * Please shower, shampoo and shave before being admitted to the hospital. * Do not wear any make up, nail uzbek or jewelry for the surgery. * Free parking is available in the [facility]. documented in this encounter Progress Notes Ruth Basurto RN - 10/22/2011 12:20 PM PSTPatient/Family Readiness to Learn: The following pertains to: patient and others friend. Accurately explains reasons for visit and accurately relates medical history: yes. Accurately describes the likely alteration in self-care routines/abilities resulting from t reatment: yes. Able to provide names and reasons for taking current medications and dosages: yes. Able to follow proposed treatment plan for diet, activity and/or medication without difficu lty: yes. Learning Needs: Wound care and Procedures / treatments. Barriers: None identified. Referral To: No referral required. Preferred Learning Method: Verbal and Written. Teaching: Care instructions reviewed: preop. Patient/Family Response to Teaching: Verbalizes understanding of information/instructions given: Yes. Demonstrates ability to perform required procedure: Not applicable. Additional Notes: none. Osiel Lemon MD - 11:12 AM PST 10/22/2011 Surg Onc note I performed a history and physical examination of the patient and discussed her management with the resident. I reviewed the resident s note and agree with the documented findings and plan of care. Ref: Dr. Aranda, [place] 50 yr old [place] with RP mass and gallbladder poylps, referred for diagn osis, possible treatment ROS: abdom pain Aug 30, diagnoses as UTI in ER. Developed fatigue and N,V. Started on ins ulin asnd metformin and told she might be diabetic. U/S mid September showed polyps in GB, sl udge. Ct scan showed diffuse periaortic masses. Liver and spleen negative. 40 lb weight loss and night sweats. N and V stopped after metformin was stopped. Abdominal fullness,possbly s gabrielle summer. Otherwise per resident note. Past Medical History Diagnosis Date UTI (urinary tract infection) Jun-Sep 11 Calculus of kidney Arthropathy, unspecified, site unspecified Type II or unspecified type diabetes mellitus without mention of complication, not stat ed as uncontrolled Unspecified essential hypertension Symptomatic menopausal or female climacteric states Past Surgical History Procedure Date section 1981 No Known Allergies No current outpatient prescriptions on file. Exam: BP 107/59 | Pulse 103 | Temp (Src) 36.7 C (98 F) (Oral) | RR 15 | Ht 162.6 cm (5' 4") | Wt 90.674 kg (199 lb 14.4 oz) | BMI 34.31 kg/(m^2) Obese NA female No peripheral adenopathy Abdomen obese with tenderness, no Sims's sign. Fullness R side w/o definite mass CTs and U/S per HPI. Reviewed in clinic today. Large complex RP mass more c/w lymphoma than with a solid mass. No ascites. Shotty node deep in R groin at femoral triangle. A: Obese NA female with abdominal disconfort, GB polyps, and diffuse RP mass, possible lymphom a. Needs tissue diagnoses. Discussed with pt and her friend in detail and we reached the saba pabloing plan: P:Stop ASA now To OR in 2 weeks for lap choly and biopsy of RP mass. Pt understands risks of bleeding, inf ection ,wound healing problems,possible need to convert to open, and hernias. Signed consent after full PARQ. Will send tissue fresh for lymphoma w/u. OSIEL RM MD SURGICAL ONCOLOGY [facility] [id number] [place], [place] [address] Renetta Iabnez MD - 10/02 11:03 AM PST Surgical Oncology History and Physical Author: RENETTA CEVALLOS MD Attending Physician: Dr. Osiel Rm Referring Provider: Dr. Jonathan Baca Consult for: Laparoscopic cholecystectomy and biopsy of retroperitoneal mass HPI: Ms. Frida Christian is a 50 y.o. woman who presents with gallbladder cysts and a retrop eritoneal mass. Her work-up history began on August 30, when she felt like her "gut" was on fire. It was localized to her right upper quadrant. She presented to the ER where she was diagnosed with a UTI and discharged with a prescription for hydrocodone and cipro. She w as told to FU with a PCP in three days. After the ER visit Developed dry heaves. When she followed with a PCP (Dr. Marcus) she was diagnosed with diabetes and placed on Metoformin. However, her N/V continued, but she did not know if it was due to the metformin or the cipr o. 5 days later she saw another PCP placed her on insulin. With regards to her pain, she received an US and CT scan for work-up during one of her PCP appointments. She was found to have polyps in her gallbladder and a large retroperitoneal m ass concerning for lymphoma. She states that her pain has continued and it responds to aashish din. The pain is the worst in the middle of the night. ROS significant for a 39 pound weight loss since . She is unable to state whether this is intentional as she has been watching her diet due to her recent diabetic diagnosis. Denies jaundice or icterus. Never had pancreatitits. No family members with gallbladder disease or history of cancer. Past Medical History Diagnosis Date UTI (urinary tract infection) Jun-Sep 11 Calculus of kidney Arthropathy, unspecified, site unspecified Type II or unspecified type diabetes mellitus without mention of complication, not stat ed as uncontrolled Unspecified essential hypertension Symptomatic menopausal or female climacteric states Past Surgical History Procedure Date section 1981 Medications: 81 mg of ASA Lantus Lisinopril Glipizide Bactrim No Known Allergies ROS: See HPI. All other ROS negative. History Social History Marital Status: Single Spouse Name: legally Number of Children: 6 Years of Education: ged Occupational History unemployed None Social History Main Topics Smoking status: Current Everyday Smoker -- 0.5 packs/day for 15 years Types: Cigarettes Smokeless tobacco: Never Used Alcohol Use: No Drug Use: Yes marijuana Sexually Active: No Other Topics Concern Not on file Social History Narrative No narrative on file Family History Problem Relation Alcohol/Drug Sister Alcohol/Drug Brother Alcohol/Drug Maternal Grandfather Alcohol/Drug Paternal Grandmother Alcohol/Drug Daughter Allergies Daughter Allergies Maternal Grandfather Arthritis Brother Asthma Brother Arthritis Maternal Grandfather Asthma Maternal Grandfather Diabetes Maternal Grandfather Heart Disease Mother Heart Disease Father Heart Disease Maternal Grandmother Heart Disease Maternal Grandfather Hypertension Maternal Grandmother Hypertension Maternal Grandfather Hypertension Mother Thyroid Mother Thyroid Maternal Grandmother Alcohol/Drug Paternal Uncle Alcohol/Drug Paternal Cousin Asthma Paternal Uncle Heart Disease Maternal Aunt Heart Disease Paternal Aunt Heart Disease Paternal Uncle Heart Disease Paternal Cousin Hypertension Maternal Aunt Hypertension Paternal Aunt Hypertension Paternal Uncle Hypertension Paternal Cousin Thyroid Maternal Aunt Thyroid Paternal Aunt Physical Exam: BP 107/59 | Pulse 103 | Temp (Src) 36.7 C (98 F) (Oral) | RR 15 | Ht 162.6 cm (5' 4") | Wt 90.674 kg (199 lb 14.4 oz) | BMI 34.31 kg/(m^2) General Appearance: NAD HEENT: NCAT, PERRLA, EOMI, anicteric Respiratory: CTAB, no wheezes, rales or rhonchi Cardiovascular: Regular rate and rhythm, no murmurs, rubs or gallops Gastrointestinal: Soft, TTP in epigastrium with distension/firm mass, same mass effect pancho g right side of abdomen along the spigelian line. No Sims's sign. Lymphatic: No cervical, supraclavicular, axillary and inguinal lymphadenopathy Extremities: 5+ strength throughout, no edema, erythema or exudate. Warm and well perfuse d. Skin: No rashes Data: 08/30: Na 130, K 3.9, Cl 85, Glu 365, Cr 0.85, AST 14, ALT 24, AP 138, tbili 0.6 WBC 14.3, Hct 42.4, Plt 412 UA:WBC 50, Glu 500, protein 100 US: 1. Multiple hypoechogenic areas, which appear to be present near the proximity of the panc reas. Multiple cholesterol polyps. CT scan: Large retroperitoneal mass that tracts around the pancreas. Assessment and Plan: Ms. Frida Christian is a 50 y.o. woman who presents with gallbladder abhi yps and a large retroperitoneal mass. A PARQ was held and the patient was consented for a l aparoscopic cholecystectomy and mesenteric biopsy knowing the risks and benefits. She will be placed on the OR schedule in the near future. She is to stop ASA for two weeks prior to her surgery. documented in this enc ounter Plan of Treatment Not on filedocumented as of this encounter Results TYPE AND SCREEN (10/22/2011 1:51 PM PST) [...] | [facility] | [address] | [place] [address] | | | PATHOLOGY | [address] | | | + + + + + documented in this encounter Visit Diagnoses + + | Diagnosis | + + | Retroperitoneal mass - Primary Abdominal or pelvic swelling, mass or lump, | | unspecified site | + + | Other specified pre-operative examination | + + documented in this encounter
--- OUTSIDE RECORDS SUMMARY | ~2020-06-17 | XMS | Encounter Summary ---
Demographics + + + | Address | [address] | | | [place] [address] | + + + | Home Phone | | + + + | Preferred Language | Unknown | + + + | Marital Status | | + + + | Moravian Affiliation | Unknown | + + + | Race | or | + + + | Ethnic Group | Not or | + + + Author + + + | Author | [facility] | | | and [place] | + + + | Organization | [facility] | | | and [place] [...] [place] | | | | | [address] | | + + + + + | Greta [place] | ECON | [place] | | | | | [address] | | + + + + + Care Team Providers + +------+ + | Care Physical Medicine Teacher Name | Role | Phone | + +------+ + PCP | Unavailable | + +------+ + Encounter Details +--------+ + + + + | Date | Type | Department | Care Team | Description | +--------+ + + + + | 03/08/ | Hospital | [facility] | Leann, | | | 2011 | Encounter | MED CTR XRAY [address] | Antonio Infante MD [address] | | | | | [address] | [facility] | | | | | [place] [address] | [address] [place] | | | | | [phone] | [id number] | | | | | | | [...] Performed At | + + + | [facility] Diagnostic Imaging Department | [facility] | | [address] | [facility] | | E C H O C A R D | MARIA M IM | | I O G R A P H Y R E P O R T HEIGHT: 64" | | | WEIGHT: 175# ENGAGEMENT QUALITY CONSULTANT: SWAPNIL REFERRING DR: | | | LEANN NEUMANN [...] Transcribed Date/Time: | | | 03/08/2012 17:09 Staff Weapons Officer: <Electronically Signed | | | by Endy Polo MD [facility]> 03/09/12 1615 | | + + + + + | Procedure Note | + + | Philip Groves Conversion - 12/08/2013 5:17 PM [facility] | | Diagnostic Imaging Department | | [address] | | | | | | | | E C H O C A R D I O G R A P H Y R E P O R T | | | | | | HEIGHT: 64" WEIGHT: 175# ENGAGEMENT QUALITY CONSULTANT: SWAPNIL | | REFERRING DR: LEANN NEUMANN [...] | Transcribed Date/Time: 03/08/2012 17:09 | | Staff Weapons Officer: | | <Electronically Signed by Endy Polo MD [facility]> 03/09/12 1615 | + + + +---------+ + + | Performing | Address | City/State/Zipcode | Phone Number | | Organization | | | | + +---------+ + + | [place] | | | | | [facility] | | | | + +---------+ + + documented in this encounter Visit Diagnoses Not on filedocumented in this encounter
--- OUTSIDE RECORDS SUMMARY | ~2020-06-17 | XMS | Clinical Summary ---
Demographics + + + | Address | [address] | | | [place] [address] | + + + | Home Phone | | + + + | Preferred Language | Unknown | + + + | Marital Status | Single | + + + | Druze Affiliation | NON | + + + | Race | or | + + + | Ethnic Group | Not or | + + + Author + + + | Author | [facility] | + + + | Organization | [facility] | + + + | Address | Unknown | + + + | Phone | Unavailable | + + + Support + + + + + | Name | Relationship | Address | Phone | + + + + + | Yue Fischer | ECON | [address] | | | | | [place] | | | | | [address] | | + + + + + | Greta Mccauleyu | ECON | Unknown | | + + + + + Care Team Providers + +------+ + | Care Companion Name | Role | Phone | + +------+ + | Becky Jennings | PCP | | + +------+ + Source Comments [facility] is fully live on both [facility] and [facility] Allergies No Known Allergies Medications + + + +---------+------+------+-------+ | Medication | Sig | Dispensed | Refills | Star | End | Statu | | | | | | t | Date | s | | | | | | Date | | | + + + +---------+------+------+-------+ | ergocalciferol | Take 50,000 Units by | | 0 | | | Activ | | (VITAMIN D) 50,000 | mouth every seven | | | | | e | | unit Oral Capsule | days. | | | | | | + + + +---------+------+------+-------+ | LORazepam 0.5 mg | Take 1-2 Tabs by | 30 Tab | 0 | 02/0 | | Activ | | Oral | mouth every four | | | 2/20 | | e | | TabletIndications: | hours as needed for | | | 12 | | | | Burkitt's lymphoma | anxiety (nausea, | | | | | | | (HCC) | vomiting). | | | | | | + + + +---------+------+------+-------+ | polyethylene | Take 1 Packet by | | 0 | 02/0 | | Activ | | glycol (MIRALAX) 17 | mouth once daily as | | | 2/20 | | e | | gram Oral Powder in | needed. For | | | 12 | | | | Packet | constipation. | | | | | | | | Available over the | | | | | | | | counter | | | | | | + + + +---------+------+------+-------+ | senna-docusate | Take 1-2 Tabs by | | 0 | 02/0 | | Activ | | 8.6-50 mg Oral | mouth every twelve | | | 2/20 | | e | | Tablet | hours as needed. For | | | 12 | | | | | constipation. | | | | | | | | Available over the | | | | | | | | counter | | | | | | + + + +---------+------+------+-------+ | | Take 1 Tab by mouth | 30 Tab | 1 | 02/0 | | Activ | | diphenoxylate-atropi | twice daily as | | | 2/20 | | e | | ne 2.5-0.025 mg Oral | needed for diarrhea. | | | 12 | | | | Tablet | | | | | | | + + + +---------+------+------+-------+ | prochlorperazine 5 | Take 1-2 Tabs by | 30 Tab | 2 | 02/0 | | Activ | | mg Oral | mouth every four | | | 3/20 | | e | | TabletIndications: | hours as needed for | | | 12 | | | | Burkitt's lymphoma | nausea/vomiting. Max | | | | | | | (HCC) | dose: 40 mg/day | | | | | | + + + +---------+------+------+-------+ | Omeprazole 20 mg | Take 1 Tab by mouth | 30 Tab | 3 | 02/0 | | Activ | | Oral Tablet, Delayed | once daily. | | | 20 | | e | | Release (E.C.) | | | | 12 | | | + + + +---------+------+------+-------+ | oxyCODONE CR 20 mg | Take 1 Tab by mouth | 60 Tab | 0 | 04/2 | | Activ | | Oral Tablet | every twelve hours. | | | 20 | | e | | Extended Release 12 | | | | 12 | | | | hr | | | | | | | + + + +---------+------+------+-------+ | dronabinol 5 mg | Take 1 Cap by mouth | 90 Cap | 1 | 04/2 | | Activ | | Oral Capsule | three times daily | | | 2/20 | | e | | | before meals. | | | 12 | | | + + + +---------+------+------+-------+ | amLODIPine 10 mg | Take 1 Tab by mouth | 30 Tab | 1 | 04/2 | | Activ | | Oral Tablet | once daily. | | | 220 | | e | | | | | | 12 | | | + + + +---------+------+------+-------+ | acyclovir 800 mg | Take 0.5 Tabs by | 30 Tab | 3 | 04/2 | | Activ | | Oral | mouth once daily. 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 | + + + Resolved Problems + + + + | Problem | Noted | Resolved | | | Date | Date | + + + + | Retroperitoneal mass | 10/22/20 | | | | 11 | 2 | + + + + Family History + + +------+ + | Medical History | Relation | Name | Comments | + + +------+ + | Alcohol/Drug | Brother | | | + + +------+ + | Arthritis | Brother | | | + + +------+ + | Asthma | Brother | | | + + +------+ + | Alcohol/Drug | Daughter | | | + + +------+ + | Allergies | Daughter | | | + + +------+ + | Heart Disease | Father | | | + + +------+ + | Heart Disease | Maternal | | | | | Aunt | | | + + +------+ + | Hypertension | Maternal | | | | | Aunt | | | + + +------+ + | Thyroid | Maternal | | | | | Aunt | | | + + +------+ + | Alcohol/Drug | Maternal | | | | | Grandfath | | | | | er | | | + + +------+ + | Allergies | Maternal | | | | | Grandfath | | | | | er | | | + + +------+ + | Arthritis | Maternal | | | | | Grandfath | | | | | er | | | + + +------+ + | Asthma | Maternal | | | | | Grandfath | | | | | er | | | + + +------+ + | Diabetes | Maternal | | | | | Grandfath | | | | | er | | | + + +------+ + | Heart Disease | Maternal | | | | | Grandfath | | | | | er | | | + + +------+ + | Hypertension | Maternal | | | | | Grandfath | | | | | er | | | + + +------+ + | Heart Disease | Maternal | | | | | Grandmoth | | | | | er | | | + + +------+ + | Hypertension | Maternal | | | | | Grandmoth | | | | | er | | | + + +------+ + | Thyroid | Maternal | | | | | Grandmoth | | | | | er | | | + + +------+ + | Heart Disease | Mother | | | + + +------+ + | Hypertension | Mother | | | + + +------+ + | Thyroid | Mother | | | + + +------+ + | Heart Disease | Paternal | | | | | Aunt | | | + + +------+ + | Hypertension | Paternal | | | | | Aunt | | | + + +------+ + | Thyroid | Paternal | | | | | Aunt | | | + + +------+ + | Alcohol/Drug | Paternal | | | | | Cousin | | | + + +------+ + | Heart Disease | Paternal | | | | | Cousin | | | + + +------+ + | Hypertension | Paternal | | | | | Cousin | | | + + +------+ + | Alcohol/Drug | Paternal | | | | | Grandmoth | | | | | er | | | + + +------+ + | Alcohol/Drug | Paternal | | | | | Uncle | | | + + +------+ + | Asthma | Paternal | | | | | Uncle | | | + + +------+ + | Heart Disease | Paternal | | | | | Uncle | | | + + +------+ + | Hypertension | Paternal | | | | | Uncle | | | + + +------+ + | Alcohol/Drug | Sister | | | + + +------+ + + +------+--------+ + | Relation | Name | Status | Comments | + +------+--------+ + | Brother | | | | + +------+--------+ + | Daughter | | | | + +------+--------+ + | Father | | | | + +------+--------+ + | Maternal Aunt | | | | + +------+--------+ + | Maternal Grandfather | | | | + +------+--------+ + | Maternal Grandmother | | | | + +------+--------+ + | Mother | | | | + +------+--------+ + | Paternal Aunt | | | | + +------+--------+ + | Paternal Cousin | | | | + +------+--------+ + | Paternal Grandmother | | | | + +------+--------+ + | Paternal Uncle | | | | + +------+--------+ + | Sister | | | | + +------+--------+ + Social History + + + +--------+ [...] | + + + + + | Pneumococcal | | 11/01/2010 | | | vaccination (2 of 3 | 2 | | | | - PCV13) | | | | + + + + + | Influenza (Flu) | | | | | vaccination (#1) | 9 | | | + + + + + Results Not on filefrom Last 3 Months Insurance + +--------+ +--------+ + +--------+ | Payer | Benefi | Subscriber | Effect | Phone | Address | Type | | | t Plan | ID | al | | | | | | / | | Dates | | | | | | Group | | | | | | + +--------+ +--------+ + +--------+ | [employer] [place] | [employer] | xxxxxxxx | 11/09/19 | [phone] | [address] | Medica | | | PLUS | | 12-Pre | 6 | [id number] | id | | | OPEN | | sent | | [place], [place] | | | | CARD | | | | [id number] | | + +--------+ +--------+ + +--------+ | [facility] | | [phone] | 11/07/18 | | | Agency | | SERVICE | | | 60-Pre | | | | | | HEALTH | | sent | | | | | | | | | | | | | | SERVIC | | | | | | | | E | | | | | | + +--------+ +--------+ + +--------+ + +--------+ +--------+ + + | Guarantor [...] al/Fam | | 1961 | [phone] | [place] [address] | | | shonda | | | 8 (Home) | | + +--------+ +--------+ + + | [employer] | Agency | Self | [birth year] | [address] | | | | | 1961 | [phone] | [place] [address] | | | | | | 8 (Home) | | + +--------+ +--------+ + + Advance Directives + + + + + | Code Status | Date | Date | Comments | | | Activated | Inactivated | | + + + + + | Full Code | 02/09/2012 | 02/21/2012 | | | | 1:39 PM | 11:10 PM | | + + + + + + + + +---+ | | | | | + + + +---+ | Full Code | 11/13/2011 | 12/06/2011 | | | | 6:05 PM | 11:15 PM | | + + + +---+ + + + +---+ | | | | | + + + +---+ | Full Code | 11/09/2011 | 11/10/2011 | | | | 1:10 PM | 6:55 PM | | + + + +---+ + + + +---+ | | | | | + + + +---+ | Full Code | 11/09/2011 | 11/09/2011 | | | | 6:05 AM | 1:10 PM | | + + + +---+
--- OUTSIDE RECORDS SUMMARY | ~2020-06-17 | XMS | Encounter Summary ---
Demographics + + + | Address | [address] | | | [place] [address] | + + + | Home Phone [...] + + | Author | [facility] | + + + | Organization | [facility] | + + + | Address | Unknown | + + + | Phone | Unavailable | + + + Support + + + + + | Name | Relationship | Address | Phone | + + + + + | Yue Fischer | ECON | [address] | | | | | [place] | | | | | [address] | | + + + + + | Greta Broncheau | ECON | Unknown | | + + + + + Care Team Providers + +------+ + | Care Terminal Operations Manager Name | Role | Phone | [...] Visit | [facility] at | J, GUIDANCE ADVISER | mass; Other | | | | [facility] 4th Floor Day | | specified | | | | Stay [address] | | pre-operative | | | | [address] | | examination; Type 2 | | | | Mailcode: UHN65 | | diabetes mellitus | | | | [facility] | | (HCC); HTN | | | | [address] [place], [place] | | (hypertension); | | | | [address] | | Morbid obesity (HCC) | | | | [phone] | | | +--------+---------+ + + + [...] Patient Instructions Patient Instructions Tam Margarita Bebe, GUIDANCE ADVISER - 10/22/2011 2:05 PM PSTPREOPERATIVE INSTRUC TIONS [...] OR NON-STEROIDAL ANTI-INFLAMMATORY DRUGS (NSAIDs) Advil, Aleve, Gina-[place], Anacin, Arthopan, Ascriptin, Aspergum, Aspirin with and [...] ersantine, Phenylbutazone, Piroxicam, Relafen, Robomol, Rufen, Sine-aid, Blanco s cold tablets, Sulindac, Talwin, Tolectin, Triaminicin, [...] perfume, lotions or powder. Remove any nail german from at least one fingernail. Do not [...] or walk. Surgery Check in Locations Admitting [facility] Surgery Check in Time: Someone from your [...] it is after office hours, call the [facility] agricultural plow operator at [phone] and ask them to page your doc [...] further investigation and manageme nt. A. Acute GA within 7 days: no B. Unstable angina/Recent GA (7- 30 days): no C. Decompensated CHF: no D. Significant arrhythmia: None E. Severe valvular disease: NONE 3. Low risk surgery? b. No -> proceed with next step. 4. Good functional capacity? (>4 METS)a. Yes -> proceed with surgery. Please see scanned Preop H & P in the "Media" tab under ANESTHESIA PREOP EVALUATION. RAHUL DOUGLAS [facility] [address] [facility] [id number] documented in th is encounter Plan of Treatment Not on filedocumented as of this encounter Procedures + +--------+ + + + | Procedure Name | Priori | Date/Time | Associated Diagnosis | Comments | | | ty | | | | + +--------+ + + + | [place] COLLECTION VENOUS | Routin | 10/22/2011 | [...] [facility] | [address] | [place], [place] | | | [facility]ARE | [address] | [address] | | | TESTS | | | [...] [facility] | [address] | [place] [address] | | | PATHOLOGY | [address] [...] | | | DEPARTMENT | | | CHINESE | | | OF | | | [...] [facility] DEPARTMENT | [address] | [place] [address] | | | PATHOLOGY | [address] [...] | + + + + + | [facility] DEPARTMENT OF | [address] | [place] [address] | | | PATHOLOGY | [address] [...] | | | | | MONIKA HORN ([id number]) on | | | | | | 10/24/2011 11:29:45 AM | | | | + + + + + + + + | Specimen | + + | | + + + + + | Narrative | Performed At | + + + | Please click | [facility] | | on view image for the detailed interpretation from [employer] results. | CARDIOLOGY | + + + + + + + + | Performing | Address | City/State/Zipcode | Phone Number | | Organization | | | | + + + + + | [facility] | [address] | [place], [place] | | | CARDIOLOGY | [address] | [address] | | + + + + + [...]
--- OUTSIDE RECORDS SUMMARY | ~2020-06-17 | XMS | Encounter Summary ---
Demographics + + + | Address | [address] | | | [place] [address] | + + + | Home Phone | | + + + | Preferred Language | Unknown | + + + | Marital Status | | + + + | Sabianist Affiliation | Unknown | + + + | Race | or | + + + | Ethnic Group | Not or | + + + Author + + + | Author | Located Within [facility] | | | and [place] | + + + | Organization | Located Within [facility] | [...] [place] | | | | | [address] | | + + + + + | Greta Broncheau | ECON | [place] | | | | | [address] | | + + + + + Care Team Providers + +------+ + | Care Machine Clerical Verifier Name | Role | Phone | + [...] + + | 12/24/ | Emergency | [facility] | Antonio Benoit | Nausea vomiting and | | 2016 | | [facility] | Mckay Joseph MD | diarrhea (Primary | | | | CENTER [address] | [address] | Dx); Urinary tract | | | | [place], [place] | [place], [place] | infection, site | | | | [address] | [address] | unspecified | | | | [phone] | | | +--------+ + + + [...] tablets by | 100 | 0 | //20 | | | HYDROcodone-acetamin | mouth every 6 hours | tablet | | 15 | | | ophen (NORCO) 5-325 | as needed. | | | | | | mg per | | | | | | | tabletIndications: | | | | | | | Burkitt's lymphoma | | | | | | | ([facility]) | | | | | | + [...] + + documented as of this encounter ED Notes Antonio Benoit MD - 12/24/2015 4:30 AM PSTFormatting of this note might be d ifferent from the original. [facility] Frida Christian Emergency Department Encounter Note [address] [place] [address] PCP:Clay Ly DO [phone] eMERGENCY dEPARTMENT eNCOUnter CHIEF COMPLAINT Chief Complaint Patient presents with Fever (9 Weeks To 74 Years) Chills Headache (Adult - New Onset Or New Symptoms) Emesis Diarrhea (Adult) TRIAGE ED Triage Notes Luciana Rubin RN 12/24/2015 4:23 Pt c/o fever/chills, N/V/D and headache for the last couple of days. HPI Frida Christian is a 55 y.o. female who presents with a fever, Active vomiting, and diarrhe a. Patient doesn't feel well. She's been traveling. She states that she ate some steak. 4 d ays ago. Since then she's been having vomiting and diarrhea. She does have a fever tonight . Patient has no significant abdominal pain. She denies a significant cough. Patient did state that she ate a big steak dinner the other night prior to symptoms started . Patient has a remote history of Burkitt's lymphoma. She states is been sometimes that she' s had blood work. Patient at this point has a temperature of 101. She states that she was sleeping and she s oaked the bed sweat tonight. 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 MOMETASONE-FORMOTEROL (DULERA) 100-5 MCG/PUFF INHALER Inhale 2 puffs into the lungs as needed. ALLERGIES Allergies Allergen Reactions Uncoded Nonscreenable Allergen Metal Vancomycin Was life flighted after taking this FAMILY HISTORY Family History Problem Relation Age of Onset Other (See Comment) Father age 71 AMI Other (See Comment) Mother Alive age 83 some health problems Other (See Comment) Brother x3 with heart problems Other (See Comment) Sister with heart problem SOCIAL HISTORY History Social History Marital Status: Spouse Name: N/A Number of Children: 6 Years of Education: N/A Occupational History Disabled Social History Main Topics Smoking status: Former Smoker Quit date: 10/01/2011 Smokeless tobacco: Never Used Alcohol Use: No Drug Use: Yes Comment: Marijuana Sexual Activity: None Other Topics Concern None Social History Narrative Exercise: none Caffeine Use:5 cups of coffee daily Living Situation: Son and daughter lives with her REVIEW OF SYSTEMS Please see HPI, All systems negative except as marked. Twelve point review of system comp leted my me. PHYSICAL EXAM VITAL SIGNS: Temp: (!) 38.4 C (101.1 F) Pulse: 126 Resp: 18 SpO2: 95 % BP: 113/73 mmHg Constitutional: Well developed, Well nourished, Non-toxic appearance. Febrile. HENT: Normocephalic, Atraumatic, Bilateral external ears normal, Oropharynx moist, No oral exudates, Nose normal. Neck- Normal range of motion, No tenderness, Supple, No stridor. Eyes: PERRL, EOMI, Conjunctiva normal, No discharge. Respiratory: Normal breath sounds, No respiratory distress, No wheezing, No chest tenderne ss. Cardiovascular: Normal heart rate, Normal rhythm, No murmurs, No rubs, No gallops. GI: Bowel sounds normal, Soft, No tenderness, No masses, No pulsatile masses. Musculoskeletal: Intact distal pulses, No edema, No tenderness, No cyanosis, No clubbing. Good range of motion in all major joints. No tenderness to palpation or major deformities no zach. Neurologic: Alert & oriented x 3, Normal motor function, Normal sensory function, No focal deficits noted, no facial assymetry noted. Equal school leader in all extremities RADIOLOGY no effusion no straight normal cardiac silhouette. No results found. LAB Labs Reviewed CBC WITH DIFFERENTIAL - Abnormal; Notable for the following: WBC 20.2 (*) % Lymphocytes 10.7 (*) Absolute Neutrophils 15.90 (*) Absolute Monocytes 1.90 (*) Absolute Basophils 0.20 (*) All other components within normal limits COMPREHENSIVE METABOLIC PANEL - Abnormal; Notable for the following: K 3.2 (*) CL 96 (*) GLUCOSE 170 (*) ALK PHOS 116 (*) All other components within normal limits URINALYSIS WITH MICROSCOPIC WITH CULTURE IF INDICATED - Abnormal; Notable for the following : COLOR Alicia (*) PROTEIN UA 100 mg/dL (*) BLOOD UA Moderate (*) LEUKOCYTES ESTERASE UA Moderate (*) UROBILINOGEN UA 2.0 mg/dL (*) WBC UA 15-25 (*) WBC CLUMPS UA Few (*) RBC UA 5-10 (*) SQUAMOUS EPITHELIAL UA >100 (*) BACTERIA UA 1+ (*) HYALINE CASTS UA 2-5 (*) MUCUS UA Present (*) All other components within normal limits INFLUENZA A AND B RNA, NAAT - Normal LIPASE - Normal CULTURE, URINE ED COURSE & MEDICAL DECISION MAKING Pertinent Labs & Imaging studies reviewed. (See chart for details) Nursing notes reviewed. Follow-up Information Follow up with Clay Ly DO. Specialty: Family Medicine Contact information: [address] [place] [address] New Prescriptions CIPROFLOXACIN (CIPRO) 500 MG TABLET Take 1 tablet by mouth 2 times daily for 7 days. METRONIDAZOLE (FLAGYL) 500 MG TABLET Take 1 tablet by mouth 3 times daily for 7 days. ONDANSETRON (ZOFRAN ODT) 4 MG DISINTEGRATING TABLET Take 1 tablet by mouth every 6 hour s as needed for Nausea. Patient has symptoms of a urinary tract infection. She also has what appears to be gastro enteritis with nausea vomiting and diarrhea. Currently patient feels better after IV hydrat ion and by mouth fluids as well as antinausea medicine. Currently her abdomen is nontender. Patient is to be treated with ciprofloxacin and Flagyl and Zofran. She is to follow-up with her primary care physician. She is also to take Tyle nol and ibuprofen as needed for fever. At this point patient is otherwise stable. Discharge Instructions Drink plenty of fluids. Take antibiotics as prescribed. Return for severe worsening nause a vomiting fever chills or other worsening symptoms. Please take Tylenol and ibuprofen as n eeded for fever. FINAL IMPRESSION 1. Nausea vomiting and diarrhea 2. Urinary tract infection, site unspecified Portions of this chart may have been created with [employer] voice recognition software. Occasi onal wrong-word or sound-alike substitutions may have occurred due to the inherent ruelas itations of voice recognition software. Please read the chart carefully and recognize, using context, where these substitutions have occurred Antonio Benoit MD 12/24/15 0629 documented in this encounter Miscellaneous Notes ED Triage Notes - Luciana Rubin, MADELAINE - 12/24/2015 4:23 AM PSTPt c/o fever/chills, N/V/D and headache for the last couple of days. documented in this encounter Plan of Treatment [...] + + | [facility] | [address] | [place] | [phone] | | [facility] | | [address] | | | - LABORATORY | | | | + + + + + Urinalysis with Microscopic with Culture if Indicated (12/24/2015 5:54 AM PST) + + + + + + | Component | Value | Ref Range | Performed | Pathologist | | | | | At | Signature | + + + + + + | Color, | Alicia (A) | Light Yellow, | [facility] | | | Urine | | Yellow, Straw | [facility] | | | | | | MEDICAL | | | | | | CENTER - | | | | | | LABORATORY | | + + + + + + | Clarity, | Hazy | | [facility] | | | Urine [...] - 1.030 | [facility] | | | Lewis, | | | [facility] | | [...] + + + | White Blood | 15-25 (A) | 0 - 2 /HPF | [facility] | | | Cells, | | | [facility] | | | Urine | | | MEDICAL | | | | | | CENTER - | | | | | | LABORATORY | | + + + + + + | White Blood | Few (A) | None Seen /HPF | [facility] | | | Cell | | | [facility] | | | Clumps, | | | MEDICAL | | | Urine | | | CENTER - | | | | | | LABORATORY | | + + + + + + | Red Blood | 5-10 (A) | 0 - 2 /HPF | [facility] | | | Cells, | | | [facility] | | | Urine | | | MEDICAL | | | | | | CENTER - | | | | | | LABORATORY | | + + + + + + | Squamous | >100 (A) | 0 - 2 /LPF | [facility] | | | Epithelial | | | [facility] | | | Cells, | | | MEDICAL | | | Urine | | | CENTER - | | | | | | LABORATORY | | + + + + + + | Bacteria, | 1+ (A) | Negative /HPF | [facility] | | | Urine | | | [facility] | | | | | | MEDICAL | | | | | | CENTER - | | | | | | LABORATORY | | + + + + + + | Hyaline | 2-5 (A) | 0 - 2 /LPF | [facility] | | | Casts, | | | [facility] | | | Urine | | | MEDICAL | | | | | | CENTER - | | | | | | LABORATORY | | + + + + + + | Mucus, | Present (A) | Negative /LPF | [facility] | | | Urine | | | [facility] | | | | | | MEDICAL | | | | | | CENTER - | | | | | | LABORATORY | | + + + + + + | Urine | Urine Culture Set Up | | [facility] | | | Comment | | | [facility] | | [...] + | [facility] | [address] | [place] | [phone] | | [facility] | | [address] | | | - LABORATORY | | | | + + + + + Lipase (12/24/2015 5:21 AM PST) + +-------+ + + + | Component | Value | Ref Range | Performed | Pathologist | | | | | At | Signature | + +-------+ + + + | Lipase | 17 | 0 - 60 U/L | [facility] | | | | | [...] [address] | [place] | [phone] | | [facility] | | [address] | | | - LABORATORY | | [...] 15 | 7 - 18 mg/dL | [facility] | | | | | | [facility] | | | | | | MEDICAL | | | | | | CENTER - | | | | | | LABORATORY | | + + + + + + | Creatinine | 0.79 | 0.60 - 1.30 | [facility] | | | | | mg/dL | [facility] | | | | | | MEDICAL | | | | | | CENTER - | | | | | | LABORATORY | | + + + + + + | eGFR, | >60Comment: GLOMERULAR | >=60 | [facility] | | | non- | FILTRATION | mL/min/1.73m2 | [facility] | | | Afghan | RATE,ESTIMATED | | MEDICAL | | | | mL/min/1.50t3Ppbc than | | CENTER - | | [...] Total | appended report. These | | [facility] | | | | results have [...] | | appended report. These | | [facility] [...] | | appended report. These | | [facility] [...] | an appended report. | | [facility] | | | | These results have [...] | bulin Ratio | | | [facility] | [...] [address] | [place] | [phone] | | [facility] | | [address] | | | - LABORATORY | | | | + + + + + CBC with Differential (12/24/2015 5:21 AM PST) + + + + + + | Component | Value | Ref Range | Performed | Pathologist | | | | | At | Signature | + + + + + + | White Blood | 20.2 (H) | 4.0 - 11.0 K/uL | [facility] | | | Cells | | | [facility] | | | | | | MEDICAL | | | | | | CENTER - | | | | | | LABORATORY | | + + + + + + | Red Blood | 4.47 | 3.70 - 5.20 | [...] | Eosinophils | | K/uL | [facility] | | | | | | MEDICAL | | | | | | CENTER - | | | | | | LABORATORY | | + + + + + + | Absolute | 0.20 (H) | 0.00 - 0.10 | [facility] | | | Basophils | | K/Vida | [facility] | | | | | [...] [address] | [place] | [phone] | | [facility] | | [address] | | | - LABORATORY | | [...] + | [facility] | [address] | [place], [place] | [phone] | | [facility] | | [address] | | | - LABORATORY | | [...] 16 5:40 | | | | | Daiana 12/24/15 at 0540, For 1 dose | [...]
--- OUTSIDE RECORDS SUMMARY | ~2020-06-17 | XMS | Encounter Summary ---
Demographics + + + | Address | [address] | | | [place] [address] | + + + | Home Phone | | + + + | Preferred Language | Unknown | + + + | Marital Status | | + + + | Episcopalian Affiliation | Unknown | + + + | Race | or | + + + | Ethnic Group | Not or | + + + Author + + + | Author | [facility] | | | and [place] | + + + | Organization | [facility] | | | and [place] [...] [place] | | | | | [address] | | + + + + + | Greta Broncheau | ECON | [place] | | | | | [address] | | + + + + + Care Team Providers + +------+ + | Care Community Health Coordinator Name | Role | Phone | + +------+ + | Becky Jennings | PCP | | + +------+ + Reason for Visit + +--------+ + | Reason | Onset | Comments | | | Date | | + +--------+ + | Medication Refill | 08/20/ | | | | 2013 | | + +--------+ + Encounter Details +--------+--------+ + + + | Date | Type | Department | Care Team | Description | +--------+--------+ + + + | 08/20/ | Ref[facility] | [facility] | Thelma, | Medication Refill | | 2013 | | [facility] | Antonio Infante MD [address] | | | | | [facility] [address] | | | | | [address] [place], | [address] [place], [place] | | | | | [place] [address] | [id number] | | | | | [phone] | | | +--------+--------+ + + + [...] this encounter Miscellaneous Notes Telephone Encounter - Ambar Warner RN - 08/20/2014 8:39 AM PDTTelephone call to p atients home and spoke with her sister Yue to report that the Hydrocodone Rx they requeste d was ready for 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 They requested that the Rx be mailed to their home. Rx put in thi s mornings mail. d ocumented in this encounter Plan of Treatment Not on filedocumented as of this encounter Visit Diagnoses Not on filedocumented in this encounter"
--- OUTSIDE RECORDS SUMMARY | ~2020-06-17 | XMS | Encounter Summary ---
Demographics + + + | Address | [address] | | | [place] [address] | + + + | Home Phone | | + + + | Preferred Language | Unknown | + + + | Marital Status | Single | + + + | Pentecostal Affiliation | NON | + + + | Race | or | + + + | Ethnic Group | Not or | + + + Author + + + | Author | [facility] [employer] [facility] | + + + | Organization | [facility] [employer] [facility] | + + + | Address | Unknown | + + + | Phone | Unavailable | + + + Support + + + + + | Name | Relationship | Address | Phone | + + + + + | Yue Fischer | ECON | [address] | | | | | [place] | | | | | [address] | | + + + + + | Greta Broncheau | ECON | Unknown | | + + + + + Care Team Providers + +------+ + | Care Overweaver Name | Role | Phone | + [...] | | | | | Emeka | [facility] | | | | | | [facility] | [facility], | | | | | | [place], [place] | [facility] Floor | | | | | | [address] | [place], [place] | | | | | | Phone: | [phone] | | | | | | [phone] | Phone: | | | | | | Fax: | [phone] | | | | | | [phone] | Fax: | | | | | | | [phone] | +--------+--------+ + + + + Diagnostic [...] | | | | AM, ADULT | [place], [place] | Building, 2nd | | | | | | [address] | floor | | | | | | Phone: | [place], [place] | | | | | | [phone] | [address] | | | | | | Fax: | Phone: | | | | | | [phone] | [phone] | +--------+--------+ + + + + Reason [...] + + | 02/08/ | Hospital | [facility] [address] | Hong Last, | | | 2011 - | Encounter | [place] Mailcode: | [address] | | | | | [address] | [place], [place] | | | 02/20/ | | [place], | [address] | | | 2012 | | [place] [address] | | | | | | [phone] | Dylan Martinez | | | | [...] preferre d the procedure be done at [facility] and she was referred to Dr. Silvio [...] 1B prior to dc. LPs done at [facility] showed no evidence of disease. Then she receiv ed care closer to her home in [place]. She recevied 2A and 2B and did well until she had n eutropenic fevers on day 15 of cycle 2B. She was admitted locally and treated with broad spe ctrum therapy and vancomycin for the fevers. No report of any positive cultures from OSH. Pt was transferred to [facility] after she suddenly went into renal failure. 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 Received a dose [...] received vancomycin and cefepime. On admission to [facility] con tinued cefepime at renal dose finished [...] again on 02/24 (walk-in). ) [facility] [address] [place] [address] Other Discharge Orders and Instructions Call Dr. Noriega's office, or if you can't get a hold of anyone there, Call the BMT cli fred ([phone]) or BMT person on-call ([phone]) for: Any temp > 100.4 Nausea/vomiting unresponsive to compazine or ativan Significant diarrhea despite Imodium Inability to drink at least 2 liters of fluid daily Bleeding Outstanding labs/studies: None Attending Physician: Dylan Martinez MD Greater than 35 minutes spent arranging discharge, medications and follow up Discharging Physician: ANALISA PEGUERO PA-C [facility] [address] [place] [address] Mailcode: Kpv14 [place] [address] Gautam Singletary MD - 02/21/2012 [...] This includes: Zofia Young Home Medication Instructions JAGRUTI:[id number] Printed on:02/21/12 1864 Medication Information ergocalciferol (VITAMIN D) 50,000 unit [...] >50% spent counseling, coordination of ca re. [facility] DEPARTMENT: [id number]- [facility]ACULT[facility] MPV Place of Service:- Inpatient Date of Service: 02-21-2012 Suggested CPT:19082 - Discharge Day mgmt more than 30 min GAUTAM LOPEZ MD [facility] [address] [facility] [place] Mailcode: Kpv14 [facility] [id number] documented in this encounter Discharge Instructions Instructions Candie Farnsworth RN - 02/18/2012Case Management Discharge Instruction: Appointment to see Dr. Noriega- February 23, 2012 at 3pm. Appointment for CBC, CMP lab draw- February 23, 2012 at 230pm. Appointment for Labs- February 25, 2012-open appointment/walk in Further lab appointment will be determined by Dr. Thelma Braun RN [phone] Call if you have any questions! [facility] ([facility]) during clinic hours (M-F 8:30-4:30): [phone] [facility] CL[facility] ([facility]) at all other times: [phone] 14KPV: [phone] Patient Education Materials: N/A Additional Instructions: Check [...] Max | | | | | | ([facility]) | dose: 40 mg/day | | | [...] and coordination of care DYLAN MARTINEZ MD [facility] [address] [facility] Mailcode: Kpv14 [place] [facility] [address] [facility] DEPARTMENT: [id number]- [facility] Place of Service:- Inpatient Date of Service: 02/20/2012 Suggested CPT:08457 - Subsequent, Detailed/High complex 35 min urLori [...] by her PCP on 09/09/2011. She was suasn gnosed with diabetes and started on glipizide [...] preferre d the procedure be done at [facility] and she was referred to Dr. Silvio [...] earlier then initially scheduled. She admitted to [facility], fatigue and unintentional weight loss of 40# over the 2 months prior to her dx. Patient was admitted from clinic for treatment of her lymphoma. She was treated with cycle 1A and given 1B prior to dc. LPs done at [facility] showed no evidence of disease. Then she receiv ed care closer to her home in [place]. She recevied 2A and 2B and did well until she had n eutropenic fevers on day 15 of cycle 2B. She was admitted locally and treated with broad spe ctrum therapy and vancomycin for the fevers. No report of any positive cultures from OSH. Pt was transferred to [facility] after she suddenly went into renal failure. [...] received vancomycin and cefepime. On admission to [facility] continue d cefepime at renal dose through [...] Sabrina Fowler PA-C [facility] [address] [facility] Mailcode: Kpv14 [facility] [id number] Ingrid Lau - 02/19/2012 6:44 PM PDTPatient Name: ZOFIA YOUNG Date of : 1960 CARE COORDINATION ROUNDING NOTE Care Coordination rounds held. Disciplines attending included: Physician,, Physician's Registered Safety Engineer,, Nurse Practitioner,, Pharmacist, Other: Electronically signed by:Ingrid Braun Position:Director Of Home Economics Pager ID:[phone] 12 6:44 PM PDTBurSabrina pride - 02/19/2012 [...] preferre d the procedure be done at [facility] and she was referred to Dr. Silvio [...] 1B prior to dc. LPs done at [facility] showed no evidence of disease. Then she receiv ed care closer to her home in [place]. She recevied 2A and 2B and did well until she had n eutropenic fevers on day 15 of cycle 2B. She was admitted locally and treated with broad spe ctrum therapy and vancomycin for the fevers. No report of any positive cultures from OSH. Pt was transferred to [facility] after she suddenly went into renal failure. [...] received vancomycin and cefepime. On admission to [facility] continue d cefepime at renal dose through [...] Sabrina Fowler PA-C [facility] [address] [facility] [place] Mailcode: Kpv14 [place] [facility] [address] Gautam Tapia MD 02/19/2012 8:16 AM PDT [...] (aka OCEAN) 0.65 % nasal spray 1 Conyers 1 Conyers Nasal Q1H PRN temazepam (aka RESTORIL) capsule [...] (high dose methotrexate and cytarabine) transferred to [facility] for non-oliguric KIERA due to ATN, likely [...] GAUTAM PARKS MD Internal Medicine PGY2 Pager [phone] Dylan Yusuf M D - 02/19/2012 7:10 [...] and coordination of care DYLAN MARTINEZ MD [facility] [address] [facility] Mailcode: K[address]14 [place] [facility] [address] [facility] DEPARTMENT: [id number]- [facility] MP Place of Service:- Inpatient Date of Service: 02/19/2012 Suggested CPT:21127 - Subsequent, Detailed/High complex 35 min Ingrid Lau - 02/18/2012 6:43 PM PDTPatient Name: ZOFIA YOUNG Date of : 1960 CARE COORDINATION ROUNDING NOTE Care Coordination rounds held. Disciplines attending included: Director Of Home Economics,, Bedside RN,, pharm tech,, Physician,, Physician's Registered Safety Engineer,, Nurse Practitioner,, Track Laborer,, Other: Electronically signed by:Ingrid Braun Position:Director Of Home Economics Pager ID:[phone] 12 6:43 PM Ingrid Lau - 02/18/2012 [...] be determined by Dr. Thelma Braun RN [phone] Electronically signed by:Ingrid Braun Position:Director Of Home Economics Pager ID:[phone] 12 4:47 PM PDTLemuelIngrid - 02/18/2012 4:47 PM PDTPatient Name: ZOFIA YOUNG Date of : 1960 CARE COORDINATION ROUNDING NOTE Care Coordination rounds held. Disciplines attending included: Director Of Home Economics,, Bedside RN,, pharm tech,, Physician,, Physician's Registered Safety Engineer,, Nurse Practitioner,, Track Laborer,, Other: Electronically signed by:Ingrid Braun Position:Director Of Home Economics Pager ID:[phone] 12 4:47 PM PDTMalcolmSabrina Darline - 02/18/2012 [...] preferre d the procedure be done at [facility] and she was referred to Dr. Silvio [...] 1B prior to dc. LPs done at [facility] showed no evidence of disease. Then she receiv ed care closer to her home in [place]. She recevied 2A and 2B and did well until she had n eutropenic fevers on day 15 of cycle 2B. She was admitted locally and treated with broad spe ctrum therapy and vancomycin for the fevers. No report of any positive cultures from OSH. Pt was transferred to [facility] after she suddenly went into renal failure. [...] received vancomycin and cefepime. On admission to [facility] continue d cefepime, currently at renal dose [...] Sabrina Fowler PA-C [facility] [address] [facility] Mailcode: Kpv14 [facility] [address] Dylan Yusuf MD - 02/18/2012 7:07 AM [...] and coordination of care DYLAN MARTINEZ MD [facility] [address] [facility] [place] Mailcode: Kpv14 [facility] [address] [facility] DEPARTMENT: [id number]- [facility] MPV Place of Service:[address]- Inpatient Date of Service: 02/18/2012 Suggested CPT:87908 - Subsequent, Detailed/High complex 35 min Jordan [...] preferre d the procedure be done at [facility] and she was referred to Dr. Silvio [...] earlier then initially scheduled. She admitted to [facility], fatigue and unintentional weight loss of 40# over the 2 months prior to her dx. Patient was admitted from clinic for treatment of her lymphoma. She was treated with cycle 1A and given 1B prior to dc. LPs done at [facility] showed no evidence of disease. Then she receiv ed care closer to her home in [place]. She recevied 2A and 2B and did well until she had n eutropenic fevers on day 15 of cycle 2B. She was admitted locally and treated with broad spe ctrum therapy and vancomycin for the fevers. No report of any positive cultures from OSH. Pt was transferred to [facility] after she suddenly went into renal failure. [...] received vancomycin and cefepime. On admission to [facility] continue d cefepime, currently at renal dose [...] indicated at this time. JORDAN SALINAS PA-C [facility] [address] [facility] Mailcode: Kpv14 [facility] [id number] Dylan Yusuf MD - 02/17/2012 7:05 AM [...] and coordination of care DYLAN MARTINEZ MD [facility] [address] [facility] Mailcode: Kpv14 [place] [address] [facility] DEPARTMENT: [id number]- [facility] MP Place of Service:- Inpatient Date of Service: 02/17/2012 Suggested CPT:47376 - Subsequent, Detailed/High complex 35 min Adriano [...] indication for HD. MD ADRIANO Sellers MD [facility] [address] [facility] [place] Mailcode: Kpv14 [place] [facility] [place] [address] [facility] DEPARTMENT: [id number]- [facility] Place of Service: - IP CSN: [id number] Suggested Modifier: GC Resident Involved Willie LOZADA, [...] (aka OCEAN) 0.65 % nasal spray 1 Conyers 1 Conyers Nasal Q1H PRN temazepam (aka RESTORIL) capsule [...] (high dose methotrexate and cytarabine) transferred to [facility] for non-oliguric morelia l failure and pulmonary [...] GAUTAM PARKS MD Internal Medicine PGY2 Pager [phone] Latosha Aguayo FNP - 02/16/2012 7:50 AM [...] preferre d the procedure be done at [facility] and she was referred to Dr. Silvio [...] 1B prior to dc. LPs done at [facility] showed no evidence of disease. Then she receiv ed care closer to her home in [place]. She recevied 2A and 2B and did well until she had n eutropenic fevers on day 15 of cycle 2B. She was admitted locally and treated with broad spe ctrum therapy and vancomycin for the fevers. No report of any positive cultures from OSH. Pt was transferred to [facility] after she suddenly went into renal failure. [...] received vancomycin and cefepime. On admission to [facility] continue d cefepime, currently at renal dose [...] insulin indicated at this time. JING OBREGON [facility] [address] [facility] Mailcode: Kpv14 [facility] [id number] Dylan Yusuf MD - 02/16/2012 7:04 AM [...] 4. Code status: full DYLAN MARTINEZ MD [facility] [address] [facility] [place] Mailcode: Kpv14 [place] [facility] [place] [address] [facility] DEPARTMENT: [id number]- [facility] MPV Place of Service:- Inpatient Date of Service: 02/16/2012 Suggested CPT:76965 - Subsequent, Detailed/High complex 35 min Jordan [...] preferre d the procedure be done at [facility] and she was referred to Dr. Silvio [...] 1B prior to dc. LP's done at [facility] showed no evidence of disease. Then she recei olivier care closer to her home in [place]. She recevied 2A and 2B and did well until she had neutropenic fevers on day 15 of cycle 2B. She was admitted locally and treated with broad sp ectrum therapy and vancomycin for the fevers. No report of any positive cultures from OSH. P t was transferred to [facility] after she suddenly went into renal failure. Current Heme issues: -Hx of Burkitt's lymphoma, currently s/p cycle 2B of Hyper CVAD (received in [place]). -CBC shows counts recovering from recent chemo. [...] received vancomycin and cefepime, on admission to [facility] continued cefepime, currently at renal dose 1g [...] indicated at this time. JORDAN SALINAS PA-C [facility] [address] [facility] Mailcode: Kpv14 [place] [address] Adriano Tello M D - 02/15/2012 8:18 AM PDTI performed a history and physical examination of the patient and discussed her management with the resident. I reviewed the resident s note and agree wit h the documented findings and plan of care. Pt is a 51 y/o with non-oliguric KIERA, expect rec overy soon. UOP is encouraging. MD ADRIANO Sellers MD [facility] [address] [facility] Mailcode: Kpv14 [place] [address] [facility] DEPARTMENT: [id number]- [facility] Place of Service: CSN: [id number] Suggested Modifier: GC Resident Involved Gautam Tapia [...] (aka OCEAN) 0.65 % nasal spray 1 Conyers 1 Conyers Nasal Q1H PRN temazepam (aka RESTORIL) capsule [...] (high dose methotrexate and cytarabine) transferred to [facility] for non-oliguric morelia l failure and pulmonary [...] GAUTAM PARKS MD Internal Medicine PGY2 Pager [phone] Dylan Yusuf MD - 02/15/2012 6:54 AM [...] 4. Code status: full DYLAN MARTINEZ MD [facility] KPV [address] [facility] [place] Mailcode: Kpv14 [place] [facility] [address] [facility] DEPARTMENT: [id number]- [facility] MPV Place of Service:- Inpatient Date of Service: 02/15/2012 Suggested CPT:89650 - Subsequent, Detailed/High complex 35 min urLori [...] preferre d the procedure be done at [facility] and she was referred to Dr. Silvio [...] 1B prior to dc. LP's done at [facility] showed no evidence of disease. Then she recei olivier care closer to her home in [place]. She recevied 2A and 2B and did well until she had neutropenic fevers on day 15 of cycle 2B. She was admitted locally and treated with broad sp ectrum therapy and vancomycin for the fevers. No report of any positive cultures from OSH. P t was transferred to [facility] after she suddenly went into renal failure. Current Heme issues: -Hx of Burkitt's lymphoma, currently s/p cycle 2B of Hyper CVAD (received in [place]). -CBC shows counts recovering from recent chemo. [...] received vancomycin and cefepime, on admission to [facility] continued cefepime, currently at renal dose 1g [...] indicated at this time. Sabrina Fowler [facility]-C [facility] [address] [facility] [place] Mailcode: Kpv14 [place] [address] Hong Rodriguez MD - 02/14/2012 1:01 PM [...] as a culprit for ongoing toxicity, [facility]. 2. Pulmonary infiltrates - pulm [...] trump continued therapy HONG LAST MD 02/14/2012 [facility] DEPARTMENT: [id number]- [facility] MPV Place of Service:- Inpatient Suggested CPT:85062 - Subsequent, Detailed/High complex 35 min Adriano [...] (aka OCEAN) 0.65 % nasal spray 1 Conyers, 1 Conyers, Nasal, Q1H PRN temazepam (aka RESTORIL) capsule [...] (high dose methotrexate and cytarabine) transferred to [facility] for non-oliguric renal failu re and pulmonary [...] much as possible -- MBD- ca/phos stable [facility] DEPARTMENT: [id number]- [facility] Place of Service: [address] - CSN: [id number] Suggested Modifier: None abrina Fowler - 02/13/2012 [...] preferre d the procedure be done at [facility] and she was referred to Dr. Silvoi Rm. She was seen on 10/02 for [...] 1B prior to dc. LP's done at [facility] showed no evidence of disease. Then she recei olivier care closer to her home in [place]. She recevied 2A and 2B and did well until she had neutropenic fevers on day 15 of cycle 2B. She was admitted locally and treated with broad sp ectrum therapy and vancomycin for the fevers. No report of any positive cultures from OSH. P t was transferred to [facility] after she suddenly went into renal failure. Current Heme issues: -Hx of Burkitt's lymphoma, currently s/p cycle 2B of Hyper CVAD (received in [place]). -CBC shows counts recovering from recent chemo. [...] received vancomycin and cefepime, on admission to [facility] continued cefepime, currently at renal dose 1g [...] Sabrina Fowler PA-C [facility] [address] [facility] [place] Mailcode: Kpv14 [facility] [id number] Adriano Tello MD - 02/13/2012 1:59 PM [...] (aka OCEAN) 0.65 % nasal spray 1 Conyers, 1 Conyers, Nasal, Q1H PRN temazepam (aka RESTORIL) capsule [...] (high dose methotrexate and cytarabine) transferred to [facility] for non-oliguric renal failu re and pulmonary [...] much as possible -- MBD- ca/phos stable [facility] DEPARTMENT: [id number]- [facility] Place of Service: [address] - CSN: [id number] Suggested Modifier: None Hong Rodriguez MD - [...] rhonchi, and better wheezing Labs: reviewed in [facility] 4/10 CT chest noncontrast IMPRESSION: Multifocal [...] therapy HONG LAST MD 02/13/2012 10:06 AM [facility] DEPARTMENT: [id number]- [facility] Place of Service:- Inpatient Suggested CPT:77672 - Subsequent, Detailed/High complex 35 min Ingrid Lau - 12:58 PM PDTPatient Name: ZOFIA YOUNG Date of : 1960 CARE COORDINATION ROUNDING NOTE Care Coordination rounds held. Disciplines attending included: Director Of Home Economics,, Air Chief Marshal,, Bedside RN,, pharm tech,, Physician,, Physician's Registered Safety Engineer,, Nurse Practitioner,, Track Laborer,, Pharmacist, Other: Electronically signed by:Ingrid Braun Position:Director Of Home Economics Pager ID:[phone] 12 12:58 PM Hong Rodriguez MD - [...] and prolonged expiratory wheezes Labs: reviewed in [facility] 02/08 CT chest noncontrast IMPRESSION: Multifocal [...] therapy HONG LAST MD 02/12/2012 11:25 AM [facility] DEPARTMENT: [id number]- [facility] MP Place of Service:- Inpatient Suggested CPT:65180 - Subsequent, Detailed/High complex 35 min abrina [...] with emesis prompting a return visit to [facility] PCP office on 09/30/2011. She continued [...] preferre d the procedure be done at [facility] and she was referred to Dr. Silvio [...] 1B prior to dc. LP's done at [facility] showed no evidence of disease. Then she recei olivier care closer to her home in [place]. She recevied 2A and 2B and did well until she had neutropenic fevers on day 15 of cycle 2B. She was admitted locally and treated with broad sp ectrum therapy and vancomycin for the fevers. No report of any positive cultures from OSH. P sandoval was transferred to [facility] after she suddenly went into renal failure. Current Heme issues: -Hx of Burkitt's lymphoma, currently s/p cycle 2B of Hyper CVAD (received in [place]). -CBC shows counts recovering. ANC 2700. -No [...] Sabrina Fowler PA-C [facility] [address] [facility] [place] Mailcode: Kpv14 [facility] [address] Dennys Mckeon MD - 02/12/2012 8:36 AM PDTI saw and examined this patient, discussed with Dr. Parks and darian landa with the assessment and plans as outlined. [facility] DEPARTMENT: [id number]- [facility] Place of Service: [id number] - CSN: [id number] Suggested Modifier: GC Resident Involved Gautam Tapia [...] (aka OCEAN) 0.65 % nasal spray 1 Conyers 1 Con[place] Nasal Q1H PRN temazepam (aka RESTORIL) capsule [...] (high dose methotrexate and cytarabine) transferred to [facility] for non-oliguric morelia l failure and pulmonary [...] GAUTAM PARKS MD Internal Medicine PGY2 Pager [phone] [facility] [facility] 02/11/2012 10:21 AM PDT Daily [...] preferre d the procedure be done at [facility] and she was referred to Dr. Silvio [...] 1B prior to dc. LP's done at [facility] showed no evidence of disease. Then she recei olivier care closer to her home in [place]. She recevied 2A and 2B and did well until she had neutropenic fevers on day 15 of cycle 2B. She was admitted locally and treated with broad sp ectrum therapy and vancomycin for the fevers. No report of any positive cultures from OSH. P t was transferred to [facility] after she suddenly went into renal failure. Current Heme issues: -Hx of Burkitt's lymphoma, currently s/p cycle 2B of Hyper CVAD ([place] -CBC shows counts on recovery. -No transfusion [...] today (02/11/12), no insulin required. JING HERRERA [facility] [address] [facility] Mailcode: [id number] [place] [address] Hong Rodriguez MD - 02/11/2012 10:04 AM [...] and prolonged expiratory wheezes Labs: reviewed in [facility] 02/08 CT chest noncontrast IMPRESSION: Multifocal [...] therapy HONG LAST MD 02/11/2012 1:51 PM [facility] DEPARTMENT: [id number] [facility] MPV Place of Service:- Inpatient Suggested CPT:43313 - Subsequent, Detailed/High complex 35 min Dennys Mckeon MD - 02/11/2012 8:38 AM PDTI saw and examined this patient, discussed with Dr. Parks and deepthi ortiz with the assessment and plans as outlined. I saw the patient on 02/10. [facility] DEPARTMENT: [id number]- NHT NEPHROLOGY [facility] Place of Service: 31390 - IP CSN: [id number] Suggested Modifier: GC Resident Involved Gautam Tapia [...] (aka OCEAN) 0.65 % nasal spray 1 Con[place] 1 [place] Nasal Q1H PRN sodium phosphate IV 20 [...] (high dose methotrexate and cytarabine) transferred to [facility] for non-oliguric morelia l failure and pulmonary [...] MD Chava JASSO Internal Medicine PGY2 Pager [phone] Maricel Patton [facility] - 02/10/2012 4:58 PM PDT Daily NPP [...] distress sitting up at the edge [facility]. HEENT: Sclerae anicteric. Mucosa pink [...] preferre d the procedure be done at [facility] and she was referred to Dr. Silvio [...] 1B prior to dc. LP's done at [facility] showed no evidence of disease. Then she rec eived care closer to her home in [place]. She recevied 2A and 2B and did well until she h ad neutropenic fevers on day 15 of cycle 2B. She was admitted locally and treated with broad spectrum therapy and vancomycin for the fevers. No report of any positive cultures from OS H. Pt was transferred to [facility] after she suddenly went into renal failure. Current Heme issues: -hx of Burkitt's lymphoma, currently s/p cycle 2B of Hyper CVAD (received in [place])- re covering counts. . -CBC reviewed -There [...] and sliding s xochilt insulin CHARLIE NICHOLSON [facility] [address] [facility] [place] Mailcode: [id number] [facility] [address] [address] 02/10/2012 3:53 PM PDTTransthoracic echocardiogram [...] ready for disch. Electronically signed by:Ingrid Braun Position:Director Of Home Economics Pager ID:[phone] 12 1:46 PM Hong Rodriguez MD - [...] and prolonged expiratory wheezes Labs: reviewed in [facility] 02/08 CT chest noncontrast IMPRESSION: Multifocal [...] therapy HONG LAST MD 02/10/2012 12:49 PM [facility] DEPARTMENT: [id number]- [facility] Place of Service:- Inpatient Suggested CPT:64918 - Subsequent, Detailed/High complex 35 min documented [...] | + + + + + | [facility] DEPARTMENT OF | [address] | [place] [address] | | | PATHOLOGY | [address] [...] DEPARTMENT OF | [address] | [place] [address] | | | PATHOLOGY | [address] [...] DEPARTMENT OF | [address] | [place] [address] | | | PATHOLOGY | [address] [...] | + + + + + | [facility] | [address] | [place] [address] | | | PATHOLOGY | [address] [...] | + + + + + | [facility] DEPARTMENT OF | [address] | [place] [address] | | | PATHOLOGY | [address] [...] DEPARTMENT OF | [address] | [place] [address] | | | PATHOLOGY | [address] [...] DEPARTMENT OF | [address] | [place] [address] | | | PATHOLOGY | [address] [...] DEPARTMENT OF | [address] | [place] [address] | | | PATHOLOGY | [address] [...] | + + + + + | [facility] DEPARTMENT OF | [address] | [place] [address] | | | PATHOLOGY | [address] [...] | + + + + + | [facility] | [address] | [place] [address] | | | PATHOLOGY | [address] [...] | + + + + + | [facility] DEPARTMENT OF | [address] | [place] [address] | | | PATHOLOGY | [address] [...] + + | [facility] DEPARTMENT OF | [address] | [place] [address] | | | PATHOLOGY | [address] [...] DEPARTMENT OF | [address] | [place] [address] | | | PATHOLOGY | [address] [...] [facility] DEPARTMENT | [address] | [place] [address] | | | PATHOLOGY | [address] [...] | + + + + + | [facility] DEPARTMENT OF | [address] | [place] [address] | | | PATHOLOGY | [address] [...] | + + + + + | [facility] | [address] | [place] [address] | | | PATHOLOGY | [address] [...] | + + + + + | [facility] DEPARTMENT OF | [address] | [place] [address] | | | PATHOLOGY | [address] [...] DEPARTMENT OF | [address] | [place] [address] | | | PATHOLOGY | [address] [...] DEPARTMENT OF | [address] | [place] [address] | | | PATHOLOGY | [address] [...] DEPARTMENT OF | [address] | [place] [address] | | | PATHOLOGY | [address] [...] DEPARTMENT OF | [address] | [place] [address] | | | PATHOLOGY | [address] [...] | + + + + + | [facility] | [address] | [place] [address] | | | PATHOLOGY | [address] [...] | + + + + + | [facility] DEPARTMENT | [address] | [place] [address] | | | PATHOLOGY | [address] [...] | + + + + + | [facility] | [address] | [place] [address] | | | PATHOLOGY | [address] [...] + + | [facility] DEPARTMENT OF | [address] | [place] [address] | | | PATHOLOGY | [address] [...] | + + + + + | [facility] DEPARTMENT OF | [address] | [place] [address] | | | PATHOLOGY | [address] [...] | + + + + + | [facility] | [address] | [place] [address] | | | PATHOLOGY | [address] [...] | + + + + + | [facility] DEPARTMENT OF | [address] | [place] [address] | | | PATHOLOGY | [address] [...] DEPARTMENT OF | [address] | [place] [address] | | | PATHOLOGY | [address] [...] | + + + + + | [facility] DEPARTMENT OF | [address] | [place] [address] | | | PATHOLOGY | [address] [...] DEPARTMENT OF | [address] | [place] [address] | | | PATHOLOGY | [address] [...] | + + + + + | [facility] | [address] | [place] [address] | | | PATHOLOGY | [address] | | | + + + + + PHOSPHORUS, PLASMA (02/17/2012 12:10 AM PDT) + +-------+ + + + | Component | Value | Ref Range | Performed | Pathologist | | | | | At | Signature | + +-------+ + + + | PHOSPHORUS, | 4.7 | 2.4 - 4.7 mg/dL | [facility] | | | PLASMA | | | [...] | + + + + + | [facility] DEPARTMENT OF | [address] | [place] [address] | | | PATHOLOGY | [address] [...] | + + + + + | [facility] DEPARTMENT | [address] | [place] [address] | | | PATHOLOGY | [address] [...] | + + + + + | [facility] | [address] | [place] [address] | | | PATHOLOGY | [address] [...] [facility] | [address] | [place], [place] | | | THERAPY | [address] | [address] | | + + + + + [...] | + + + + + | [facility] | [address] | [place] [address] | | | PATHOLOGY | [address] [...] | + + + + + | [facility] DEPARTMENT OF | [address] | [place] [address] | | | PATHOLOGY | [address] [...] DEPARTMENT OF | [address] | [place] [address] | | | PATHOLOGY | [address] [...] | + + + + + | [facility] | [address] | [place] [address] | | | PATHOLOGY | [address] | | | + + + + + MAGNESIUM, PLASMA (02/16/2012 12:08 AM PDT) + +---------+ + + + | Component | Value | Ref Range | Performed | Pathologist | | | | | At | Signature | + +---------+ + + + | MAGNESIUM,P | 1.7 (L) | 1.8 - 2.5 mg/dL | [facility] | | | LASMA | [...] | + + + + + | [facility] DEPARTMENT OF | [address] | [place] [address] | | | PATHOLOGY | [address] [...] DEPARTMENT OF | [address] | [place] [address] | | | PATHOLOGY | [address] [...] [facility] | [address] | [place], [place] | | | THERAPY | [address] | [address] | | + + + + + [...] [facility] DEPARTMENT | [address] | [place] [address] | | | PATHOLOGY | [address] [...] | + + + + + | [facility] DEPARTMENT | [address] | [place] [address] | | | PATHOLOGY | [address] [...] | + + + + + | [facility] | [address] | [place] [address] | | | PATHOLOGY | [address] | | | + + + + + INR (02/15/2012 12:07 AM PDT) + + + + + + | Component | Value | Ref Range | Performed | Pathologist | | | | | At | Signature | + + + + + + | INR | 1.31 (H)Comment: | 0.90 - 1.20 INR | [facility] | | | | INR [...] | + + + + + | [facility] DEPARTMENT OF | [address] | [place] [address] | | | PATHOLOGY | [address] [...] DEPARTMENT OF | [address] | [place] [address] | | | PATHOLOGY | [address] [...] | + + + + + | [facility] | [address] | [place] [address] | | | PATHOLOGY | [address] [...] DEPARTMENT OF | [address] | [place] [address] | | | PATHOLOGY | [address] | | | + + + + + BILIRUBIN DIRECT (02/15/2012 12:07 AM PDT) + +-------+ + + + | Component | Value | Ref Range | Performed | Pathologist | | | | | At | Signature | + +-------+ + + + | BILIRUBIN | 0.1 | <0.4 mg/dL | [facility] | | | DIRECT | | | [...] | + + + + + | [facility] DEPARTMENT OF | [address] | [place] [address] | | | PATHOLOGY | [address] [...] | + + + + + | [facility] | [address] | [place] [address] | | | PATHOLOGY | [address] [...] | + + + + + | [facility] DEPARTMENT OF | [address] | [place] [address] | | | PATHOLOGY | [address] [...] | + + + + + | [facility] DEPARTMENT OF | [address] | [place] [address] | | | PATHOLOGY | [address] [...] | + + + + + | [facility] DEPARTMENT | [address] | [place] [address] | | | PATHOLOGY | [address] [...] [facility] | [address] | [place], [place] | | | THERAPY | [address] | [address] | | + + + + + [...] DEPARTMENT OF | [address] | [place] [address] | | | PATHOLOGY | [address] [...] | + + + + + | [facility] DEPARTMENT OF | [address] | [place] [address] | | | PATHOLOGY | [address] [...] [facility] DEPARTMENT | [address] | [place] [address] | | | PATHOLOGY | [address] [...] | + + + + + | [facility] | [address] | [place] [address] | | | PATHOLOGY | [address] [...] DEPARTMENT OF | [address] | [place] [address] | | | PATHOLOGY | [address] [...] | + + + + + | [facility] DEPARTMENT OF | [address] | [place] [address] | | | PATHOLOGY | [address] [...] | + + + + + | [facility] DEPARTMENT | [address] | [place] [address] | | | PATHOLOGY | [address] [...] | + + + + + | [facility] | [address] | [place] [address] | | | PATHOLOGY | [address] [...] [facility] | [address] | [place], [place] | | | THERAPY | [address] | [address] | | + + + + + [...] DEPARTMENT OF | [address] | [place] [address] | | | PATHOLOGY | [address] [...] DEPARTMENT OF | [address] | [place] [address] | | | PATHOLOGY | [address] [...] | + + + + + | [facility] DEPARTMENT OF | [address] | [place] [address] | | | PATHOLOGY | [address] [...] | + + + + + | [facility] DEPARTMENT OF | [address] | [place] [address] | | | PATHOLOGY | [address] [...] | + + + + + | [facility] DEPARTMENT OF | [address] | [place] [address] | | | PATHOLOGY | [address] [...] | + + + + + | [facility] DEPARTMENT | [address] | [place] [address] | | | PATHOLOGY | [address] [...] | + + + + + | [facility] DEPARTMENT OF | [address] | [place] [address] | | | PATHOLOGY | [address] [...] | + + + + + | [facility] DEPARTMENT OF | [address] | [place] [address] | | | PATHOLOGY | [address] [...] | + + + + + | [facility] DEPARTMENT | [address] | [place] [address] | | | PATHOLOGY | [address] [...] | + + + + + | [facility] | [address] | [place] [address] | | | PATHOLOGY | [address] [...] [facility] DEPARTMENT | [address] | [place] [address] | | | PATHOLOGY | [address] | | | + + + + + CHLORIDE, URINE (02/12/2012 12:41 PM PDT) + +-------+ + + + | Component | Value | Ref Range | Performed | Pathologist | | | | | At | Signature | + +-------+ + + + | CHLORIDE | 42 | mmol/L | [facility] | | | CONC URINE | | [...] DEPARTMENT OF | [address] | [place] [address] | | | PATHOLOGY | [address] [...] + + | [facility] DEPARTMENT OF | [address] | [place] [address] | | | PATHOLOGY | [address] [...] | + + + + + | [facility] | [address] | [place] [address] | | | PATHOLOGY | [address] [...] [facility] | [address] | [place], [place] | | | THERAPY | [address] | [address] | | + + + + + [...] DEPARTMENT OF | [address] | [place] [address] | | | PATHOLOGY | [address] [...] | + + + + + | [facility] DEPARTMENT OF | [address] | [place] [address] | | | PATHOLOGY | [address] [...] | + + + + + | [facility] | [address] | [place] [address] | | | PATHOLOGY | [address] [...] DEPARTMENT OF | [address] | [place] [address] | | | PATHOLOGY | [address] [...] | + + + + + | [facility] DEPARTMENT | [address] | [place] [address] | | | PATHOLOGY | [address] | | | + + + + + MAGNESIUM, PLASMA (02/12/2012 12:06 AM PDT) + +-------+ + + + | Component | Value | Ref Range | Performed | Pathologist | | | | | At | Signature | + +-------+ + + + | MAGNESIUM,P | 2.1 | 1.8 - 2.5 mg/dL | [facility] | | | LASMA | [...] | + + + + + | [facility] | [address] | [place] [address] | | | PATHOLOGY | [address] [...] | + + + + + | [facility] DEPARTMENT OF | [address] | [place] [address] | | | PATHOLOGY | [address] [...] (H) | 60 - 99 mg/dL | [facility] - | | | GLUCOSE, [...] [facility] | [address] | [place], [place] | | | [place] | [facility] | [address] | | | TESTS | | | [...] [facility] | [address] | [place], [place] | | | [place] [facility] | [facility] | [address] | | | TESTS | | | [...] [facility] | [address] | [place], [place] | | | [facility] [facility] | [address] | [address] | | | TESTS | | | [...] | + + + + + | [facility] | [address] | [place] [address] | | | PATHOLOGY | [address] [...] [facility] | [address] | [place], [place] | | | THERAPY | [address] | [address] | | + + + + + [...] [facility] DEPARTMENT | [address] | [place] [address] | | | PATHOLOGY | [address] [...] | + + + + + | [facility] DEPARTMENT OF | [address] | [place] [address] | | | PATHOLOGY | [address] [...] | + + + + + | [facility] | [address] | [place] [address] | | | PATHOLOGY | [address] [...] | + + + + + | [facility] DEPARTMENT OF | [address] | [place] [address] | | | PATHOLOGY | [address] [...] | + + + + + | [facility] | [address] | [place] [address] | | | PATHOLOGY | [address] [...] | + + + + + | [facility] DEPARTMENT OF | [address] | [place] [address] | | | PATHOLOGY | [address] [...] | + + + + + | [facility] DEPARTMENT OF | [address] | [place] [address] | | | PATHOLOGY | [address] | | | + + + + + URIC ACID, PLASMA (02/11/2012 12:08 AM PDT) + +-------+ + + + | Component | Value | Ref Range | Performed | Pathologist | | | | | At | Signature | + +-------+ + + + | URIC ACID, | 5.5 | 2.5 - 6.2 mg/dL | [facility] | | | PLASMA | [...] | + + + + + | [facility] DEPARTMENT OF | [address] | [place] [address] | | | PATHOLOGY | [address] [...] | + + + + + | [facility] | [address] | [place] [address] | | | PATHOLOGY | [address] [...] DEPARTMENT OF | [address] | [place] [address] | | | PATHOLOGY | [address] [...] OF | [address] | [place] [address] | | | PATHOLOGY | [address] | | | + + + + + CAPILLARY BLOOD GLUCOSE, POC (02/10/2012 10:49 PM PDT) + +-------+ + + + | Component | Value | Ref Range | Performed | Pathologist | | | | | At | Signature | + +-------+ + + + | BLOOD | 81 | 60 - 99 mg/dL | [facility] - | | | GLUCOSE, [...] + + | [facility] | [address] | [place], [place] | | | [place] [facility]ARE | [address] | [address] | | | TESTS | | | [...] | | | | | | Ipratropium [place] .5 | | | | | | [...] Nuñez, | | | | | | BEFORE SCHOOL BAB[employer]ITTER | | | | + + + + + + + + | Specimen | + + | | + + + + + + + | Performing | Address | City/State/Zipcode | Phone Number | | Organization | | | | + + + + + | [facility] | [address] | [place], [place] | | | THERAPY | [facility] | [address] | | + + + + + [...] [facility] | [address] | [place], [place] | | | [place] | [address] | [address] | | | TESTS | | | [...] | + + + + + | [facility] | [address] | [place] [address] | | | PATHOLOGY | [address] [...] | | | | | | by [employer], | | | | | | | | | | | | 500 | | | | | | [facility] | | | | | | [phone] | | | | | | | | | | | | www.[email or web address], | | | | | | Marilyn [...] [facility] | [address] | [place], [place] | | | [facility] | | [address] | | + + + + + [...] | | | | | | by [employer], | | | | | | | | | | | | 500 | | | | | | Ju[facility]arlos[facility]helle [facility] | | | | | | [phone] | | | | | | | | | | | | [email or web address], | | | | | | Marilyn [...] [facility] | [address] | [place], [place] | | | [facility] | | [address] | | + + + + + [...] + + + | [facility] | [address] | [place] [address] | | | LAB-MICRO | | | [...] + + + | [facility] | [address] | [place] [address] | | | LAB-MICRO | | | [...] + + + | [facility] | [address] | [place] [address] | | | LAB-MICRO | | | [...] RLB | | | | | | ([facility]) | | | | | | [facility] [address] | | | | | | [address] | | | [address] | | | | | | [place] [address] | | | | + + + + + + + + | Specimen | + + | Sputum - Sputum | + + + + + + + | Performing | Address | City/State/Zipcode | Phone Number | | Organization | | | | + + + + + | [facility] | [address] | [place] [address] | | | LAB-MICRO | | | [...] + + + | [facility] | [address] | [place] [address] | | | LAB-MICRO | | | [...] | + + + + + | [facility] | [address] | [place] [address] | | | LAB-MICRO | | | [...] | + + + + + | [facility] | [address] | [place], [place] | | | THERAPY | [facility] | [address] | | + + + + + [...] + + + | [facility] | [address] | [place] [address] | | | LAB-MICRO | | | [...] [facility] | [address] | [place], [place] | | | [facility] | [address] | [address] | | | TESTS | | | [...] + | RHINOVIRUS/ | Undetected | | [facility] | | | ENTEROVIRUS | | | [...] | | | Act of 1987. The [facility] | | | | | | Molecular Diagnostic | | | | | | Center is a | | | | | | fullylicensed and/or | | | | | | accredited clinical | | | | | | laboratory under CLIA, | | | | | | [place], and theState of | | | | | | [place]. | | | | + + + + + + + + | Specimen | + + | Nasal - Nasal | + + + + + + + | Performing | Address | City/State/[facility] | Phone Number | | Organization | | | | + + + + + | [facility] | [address] | [place] [address] | | | DIAGNOSTIC | [address] [...] | | | | | | Ipratropium [place] .5 | | | | | | [...] + + + | [facility] | [address] | [place], [place] | | | THERAPY | [address] | [address] | | + + + + + [...] [facility] | [address] | [place], [place] | | | THERAPY | [address] | [address] | | + + + + + [...] [facility] | [address] | [place], [place] | | | [facility] | [address] | [address] | | | TESTS | | | [...] | + + + + + | [facility] DEPARTMENT OF | [address] | [place] [address] | | | PATHOLOGY | [address] [...] | + + + + + | [facility] DEPARTMENT OF | [address] | [place] [address] | | | PATHOLOGY | [address] [...] | + + + + + | [facility] DEPARTMENT OF | [address] | [place] [address] | | | PATHOLOGY | [address] [...] | + + + + + | [facility] DEPARTMENT OF | [address] | [place] [address] | | | PATHOLOGY | [address] [...] [facility] | [address] | [place] [address] | | | PATHOLOGY | [address] | | | + + + + + MAGNESIUM, PLASMA (02/10/2012 4:45 AM PDT) + +-------+ + + + | Component | Value | Ref Range | Performed | Pathologist | | | | | At | Signature | + +-------+ + + + | MAGNESIUM,P | 1.9 | 1.8 - 2.5 mg/dL | [facility] | | | LASMA | [...] | + + + + + | [facility] | [address] | [place] [address] | | | PATHOLOGY | [address] [...] | + + + + + | [facility] | [address] | [place] [address] | | | PATHOLOGY | [address] [...] [facility] | [address] [address] | [place], [place] | | | [facility] | [address] | [address] | | | TESTS | | | [...] | + + + + + | [facility] | [address] | [place] [address] | | | PATHOLOGY | [address] [...] in the assay. | | | [facility] ([facility]) [facility] | | | [address] [place] [address] | | + + + + + + + + | Performing | Address | City/State/Zipcode | Phone Number | | Organization | | | | + + + + + | [facility] | [address] [facility] [place] [address] | | | LABORATORY | | | [...] + + + + | PRODUCT | [id number] | | [facility] | | | UNIT [...] + + + + | BLOOD | 11069 | | [facility] | | | PRODUCT [...] | + + + + + | [facility] | [address] | [place] [address] | | | PATHOLOGY | [address] [...] + + + + | PRODUCT | [id number] | | [facility] | | | UNIT [...] + + + + | BLOOD | [id number] | | [facility] | | | PRODUCT [...] DEPARTMENT | [address] | [place] [address] | | | PATHOLOGY | [address] [...] + + | [facility] DEPARTMENT OF | [address] | [place] [address] | | | PATHOLOGY | [address] [...] | + + + + + | [facility] DEPARTMENT OF | [address] | [place] [address] | | | PATHOLOGY | [address] [...] [facility] DEPARTMENT | [address] | [place] [address] | | | PATHOLOGY | [address] [...] | + + + + + | [facility] DEPARTMENT OF | [address] | [place] [address] | | | PATHOLOGY | [address] [...] | + + + + + | [facility] DEPARTMENT OF | [address] | [place] [address] | | | PATHOLOGY | [address] | | | + + + + + CREATININE, URINE (02/09/2012 2:23 PM PDT) + +-------+ + + + | Component | Value | Ref Range | Performed | Pathologist | | | | | At | Signature | + +-------+ + + + | CREATININE | 24.15 | mg/dL | [facility] | | | CONC UR | | [...] | + + + + + | [facility] | [address] | [place] [address] | | | PATHOLOGY | [address] [...] DEPARTMENT OF | [address] | [place] [address] | | | PATHOLOGY | [address] [...] DEPARTMENT OF | [address] | [place] [address] | | | PATHOLOGY | [address] [...] | + + + + + | [facility] | [address] | [place] [address] | | | PATHOLOGY | [address] [...] | | | | | | | <[phone]....... Negative: | | | | | | [...] CHF. | | | | | | >[phone]....... Highly | | | | | | consistent with CHF. | | | | | | Patients with BNP>ae=[id number] | | | | | | | [...] | | | | | | the software release manager. | | | | | | Effective [...] | + + + + + | [facility] | [address] | [place] [address] | | | PATHOLOGY | [address] [...] DEPARTMENT OF | [address] | [place] [address] | | | PATHOLOGY | [address] [...] DEPARTMENT OF | [address] | [place] [address] | | | PATHOLOGY | [address] | | | + + + + + INR (02/09/2012 2:03 PM PDT) + + + + + + | Component | Value | Ref Range | Performed | Pathologist | | | | | At | Signature | + + + + + + | INR | 1.30 (H)Comment: | 0.90 - 1.20 INR | [facility] | | | | INR [...] | + + + + + | [facility] | [address] | [place] [address] | | | PATHOLOGY | [address] [...] | + + + + + | [facility] DEPARTMENT OF | [address] | [place] [address] | | | PATHOLOGY | [address] | | | + + + + + CHOLESTEROL TOTAL, PLASMA (02/09/2012 2:03 PM PDT) + + + + + + | Component | Value | Ref Range | Performed | Pathologist | | | | | At | Signature | + + + + + + | CHOLESTEROL | 89Comment: | <200 mg/dL | [facility] | | | (LAB) | [...] | + + + + + | [facility] | [address] | [place] [address] | | | PATHOLOGY | [address] [...] DEPARTMENT OF | [address] | [place] [address] | | | PATHOLOGY | [address] | | | + + + + + BILIRUBIN DIRECT (02/09/2012 2:03 PM PDT) + +-------+ + + + | Component | Value | Ref Range | Performed | Pathologist | | | | | At | Signature | + +-------+ + + + | BILIRUBIN | 0.1 | <0.4 mg/dL | [facility] | | | DIRECT | | | [...] | + + + + + | [facility] DEPARTMENT OF | [address] | [place] [address] | | | PATHOLOGY | [address] [...] | + + + + + | [facility] | [address] | [place] [address] | | | PATHOLOGY | [address] [...] DEPARTMENT OF | [address] | [place] [address] | | | PATHOLOGY | [address] [...] | + + + + + | [facility] DEPARTMENT OF | [address] | [place] [address] | | | PATHOLOGY | [address] [...] | + + + + + | [facility] | [address] | [place] [address] | | | PATHOLOGY | [address] [...] | 3 mL | | | | DUO-Arledia) nebulizer solution 3 mL | | 12 [...]
--- OUTSIDE RECORDS SUMMARY | ~2020-06-17 | XMS | Encounter Summary ---
Demographics + + + | Address | [address] | | | [place] [address] | + + + | Home Phone | | + + + | Preferred Language | Unknown | + + + | Marital Status | Single | + + + | Uatsdin Affiliation | NON | + + + | Race | or | + + + | Ethnic Group | Not or | + + + Author + + + | Author | [email or web address] | + + + | Organization | [facility] | + + + | Address | Unknown | + + + | Phone | Unavailable | + + + Support + + + + + | Name | Relationship | Address | Phone | + + + + + | Yue Fischer | ECON | [address] | | | | | [place] | | | | | [address] | | + + + + + | Greta Broncheau | ECON | Unknown | | + + + + + Care Team Providers + +------+ + | Care Legal Services Manager Name | Role | Phone | + +------+ + | Becky Jennings | PCP | | + +------+ + Encounter Details +--------+ + + + + | Date | Type | Department | Care Team | Description | +--------+ + + + + | 02/09/ | Results | LAB REFERRED TESTS | Other, Faculty | | | 2011 | Only | [address] [facility] | [phone] | | | | | [address] | | | | | | [place], [place] | | | | | | [address] | | | +--------+ + + + [...] [facility] DEPT OF | [address] [facility] | [place], [place] | | | CARDIOLOGY | [address] | [address] | | + + + + + [...] DEPT OF | [address] | [place], [place] | | | CARDIOLOGY | [address] | [address] | | + + + + + documented in this encounter Visit Diagnoses Not on filedocumented in this encounter"
--- OUTSIDE RECORDS SUMMARY | ~2020-06-17 | XMS | Encounter Summary ---
Demographics + + + | Address | [address] | | | [place] [address] | + + + | Home Phone | | + + + | Preferred Language | Unknown | + + + | Marital Status | | + + + | Mormon Affiliation | Unknown | + + + | Race | or | + + + | Ethnic Group | Not or | + + + Author + + + | Author | [facility] | | | and [place] | + + + | Organization | [facility] | | [...] [place] | | | | | [address] | | + + + + + | Greta Estebaneau | ECON | [place] | | | | | [address] | | + + + + + Care Team Providers + +------+ + | Care Cyber Security Instructor Name | Role | Phone | + +------+ + | Becky Jennings | PCP | | + +------+ + Encounter Details +--------+ + + + + | Date | Type | Department | Care Team | Description | +--------+ + + + + | 02/23/ | Hospital | [facility] | [place], | | | 2012 - | Encounter | [facility] | Antonio Infante MD [address] | | | | | [address] | [facility] | | | 02/28/ | | Pedro Vasquez [place] | [address] [place], [place] | | | 2012 | | [address] | [address] | | | | | [phone] | | | +--------+ + + + [...] | 03/25/20 | | | (VITAMIN D3) 00165 | mouth Once a week. | | [...] + | CBC WITH | Routin | 02/23/2013 | | Results for this | | DIFFERENTIAL | e | 12:24 PM | | procedure are in the | | | | PDT | | results section. | + +--------+ + + + | LACTATE | Routin | 02/23/2013 | | Results for this | | DEHYDROGENASE | e | 12:24 PM | | procedure are in the | | | | PDT | | results section. | + +--------+ + + + | COMPREHENSIVE | Routin | 02/23/2013 | | Results for this | | METABOLIC PANEL | e | 12:24 PM | | procedure are in the | | | | PDT | | results section. | + +--------+ + + + documented in this encounter Results CBC with Differential (02/23/2013 12:24 PM PDT) + +-------+ + + + [...] + + | White Blood | 7.6 | 4.0 - 11.0 K/uL | [facility] | | | Cells | | | [facility] | | | | | | MEDICAL | | | | | | CENTER - | | | | | | LABORATORY | | + +-------+ + + + | Red Blood | 3.70 | 3.70 - 5.20 | [facility] | | | Cells | | M/uL | [facility] | | | | | | MEDICAL | | | | | | CENTER - | | | | | | LABORATORY | | + +-------+ + + + | Hemoglobin | 12.1 | 11.5 - 16.0 | [facility] | | | | | gm/dL | [facility] | | | | | | MEDICAL | | | | | | CENTER - | | | | | | LABORATORY | | + +-------+ + + + | Hematocrit | 36.6 | 34.0 - 47.0 % | [facility] | | | | | | [facility] | | | | | | MEDICAL | | | | | | CENTER - | | | | | | LABORATORY | | + +-------+ + + + | MCV | 99.0 | 83.0 - 101.0 fL | [facility] | | | | | | [facility] | | | | | | MEDICAL | | | | | | CENTER - | | | | | | LABORATORY | | + +-------+ + + + | MCH | 32.7 | 28.0 - 35.0 pg | [facility] | | | | | | [facility] | | | | | | MEDICAL | | | | | | CENTER - | | | | | | LABORATORY | | + +-------+ + + + | MCHC | 33.1 | 32.0 - 36.0 | [facility] | [...] +-------+ + + + | % | 55.1 | 45 - 75 % | [facility] | | | Neutrophils | | | [facility] | | | | | | MEDICAL | | | | | | CENTER - | | | | | | LABORATORY | | + +-------+ + + + | % | 32.0 | 20 - 45 % | [facility] [...] +-------+ + + + | % | 4.3 | 0 - 5 % | [facility] [...] +-------+ + + + | Absolute | 4.2 | 1.5 - 6.6 K/uL | [facility] | | | Neutrophils | | | [facility] | | | | | | MEDICAL | | | | | | CENTER - | | | | | | LABORATORY | | + +-------+ + + + | Absolute | 2.4 | 0.6 - 3.2 K/uL | [facility] [...] +-------+ + + + | Absolute | 0.3 | 0.0 - 0.4 K/uL | [facility] | | | Eosinophils | | | [facility] | | | | | | MEDICAL | | | | | | CENTER - | | | | | | LABORATORY | | + +-------+ + + + | Absolute | 0.0 [...] [address] | [place] | [phone] | | [facility] | | [address] | | | - LABORATORY | | | | + + + + + | [facility] | [address] | [place], [place] | | | [facility] | | [address], [facility] | | | - LABORATORY | | | | + + + + + Comprehensive Metabolic Panel (02/23/2013 12:24 PM PDT) + + + + + + | Component | Value | Ref Range | Performed | Pathologist | | | | | At | Signature | + + + + + + | Glucose | 98 | 70 - 109 mg/dL | [facility] [...] + + + | Alkaline | 116 (H) | 40 - 110 IU/L | [facility] | | | Phosphatase | | | [facility] | | | | | | MEDICAL | | | | | | CENTER - | | | | | | LABORATORY | | + + + + + + | AST | 35 | 10 - 42 IU/L | [facility] | | | | | | [facility] | | | | | | MEDICAL | | | | | | CENTER - | | | | | | LABORATORY | | + + + + + + | ALT | 62 (H) | 6 - 45 IU/L | [...] 15 | 7 - 18 mg/dL | [facility] | | | | | | ST. [...] | >60Comment: For | >60 mL/min/A | [facility] | | | GFR | -Americans, | [...] + | [facility] | [address] | [place] | [phone] | | [facility] | | [address] | | | - LABORATORY | | | | + + + + + | [facility] | [address] | [place] | | | [facility] | | [address] | | | - LABORATORY | | | | + + + + + Lactate Dehydrogenase (02/23/2013 12:24 PM PDT) + +-------+ + + + | Component | Value | Ref Range | Performed | Pathologist | | | | | At | Signature | + +-------+ + + + | LDH TOTAL | 162 | 91 - 180 IU/L | [facility] | | | | | [...] + | [facility] | [address] | [place] | [phone] | | [facility] | | [address] | | | - LABORATORY | | | | + + + + + | [facility] | [address] | [place] | | | [facility] | | [address], [facility] | | | - LABORATORY | | | | + + + + + documented in this encounter Visit Diagnoses Not on filedocumented in this encounter"
--- OUTSIDE RECORDS SUMMARY | ~2020-06-17 | XMS | Encounter Summary ---
Demographics + + + | Address | [address] | | | [place] [address] | + + + | Home Phone | | + + + | Preferred Language | Unknown | + + + | Marital Status | | + + + | Druze Affiliation | Unknown | + + + | Race | or | + + + | Ethnic Group | Not or | + + + Author + + + | Author | [facility] | | | and [place] | + + + | Organization | [facility] | | | and [place] [...] [place] | | | | | [address] | | + + + + + | Greta Broncheau | ECON | [place] | | | | | [address] | | + + + + + Care Team Providers + +------+ + | Care R Programmer Name | Role | Phone | + [...] | | | | lymphoma of | MD [address] | [address] | | | | | intra-abdomi | [address] | [place]IEL [address]O | | | | | nal lymph | [address] | [address] | | | | | nodes (HCC) | [place], | [place], [place] | | | | | Procedures | [place] [address] | [address] | | | | | NE OFFICE | Phone: | Phone: | | | | | OUTPATIENT | [phone] | [phone] | | | | | VISIT 25 | Fax: | Fax: | | | | | MINUTES | [phone] | [phone] | +--------+--------+ + + + + Encounter Details +--------+ + + + + | Date | Type | Department | Care Team | Description | +--------+ + + + + | 03/15/ | Hospital | [facility] | [facility], | [facility] | | 2014 | Encounter | MED CTR MEDICAL | Antonio Infante MD 5744 | (Primary Dx); | | | | ONCOLOGY CLINIC [address] | [facility] | Diarrhea; GERD | | | | [address] | [address] [place], [place] | (gastroesophageal | | | | [place] [address] | [address] | reflux disease); | | | | [phone] | | Hypertension; | | | | [...] | 03/25/20 | | | (VITAMIN D3) [address] | mouth Once a week. | | [...] encounter Progress Notes Antonio Renee MD - 03/15/2014 6:02 PM PDTFormatting of this note might be dif ferent from the original. IDENTIFYING STATEMENT: Frida Christian is a 53-year-old woman from [place], [place] with Bur miguel's lymphoma. ACTIVE DIAGNOSES: 1. Presentation in August of 2011 with intractable searing abdominal pain. Symptoms progre ssed and on October 05, 2011, she underwent advanced imaging that demonstrated diffuse malig nant lymphadenopathy throughout the retroperitoneum. 2. 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 [...] HISTORY: She lives alone and independently in [place], [place]. HABITS: Positive for a history of tobacco use, none currently. Positive for ongoing marijua na use. Positive for a remote history of alcohol use, none currently. FAMILY HISTORY: There is no history of cancer in first-degree relatives. ROUTINE MEDICATIONS: 1. Lomotil as needed. 2. Vitamin D 50,000 units orally once a week. 3. Downs 5/325, 1 or 2 tablets every 4 hours as needed for pain. 4. Lisinopril 10 mg orally daily. 5. Multivitamin once a day. 6. [place] 3 fish oil 1 g orally daily. [...] developed after walking in the [place] in [facility] recently. 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 Endocrine: Denies peripheral edema or heat/cold intolerance. Hematologic: Denies spontaneous bruising or bleeding. Integumentary: Rash on lower legs which she states is itching and started after she shaved her legs 2-3 weeks ago. Pain: Denies pain. Note: Here for follow-up. documented in this encounter Procedure Notes ONBASE SCAN [facility] - 06/21/2014 12:00 AM PDTAssociated Order(s): PATHOLOGY - EXTERNAL SCANEle ctronically signed by Diana Kaba at 06/21/2014 8:58 AM PDTdocumented in this encounter Miscellaneous Notes Plan of Care - ONBASE SCAN [facility] - 05/23/2014 12:00 AM PDT ssessment & Plan Note - Antonio Renee MD - 03/15 6:17 PM PDTAssociated Problem(s): Chronic diarrheaSymptoms have become worse. Refill on Lomotil. Refer to Dr. Aranda for colonoscopy to exclude a gastrointestinal recurrence of Burkitt's lymphoma ssessment & Plan Note - Antonio Renee MD - 03/15/2014 6:16 PM PDTAssoc iated Problem(s): GERD (gastroesophageal reflux disease)Continue omeprazoleElectronically si gned by Antonio Renee MD at 03/15/2014 6:16 PM PDTAssessment & Plan Note - Antonio Beck MD - 03/15/2014 6:15 PM PDTAssociated Problem(s): Neoplasm related p ain (acute) (chronic)Refilled hydrocodone continue as needed ssessment & Plan Antonio Grijalva MD - 03/15/2014 6:14 PM PDTAssociated Problem(s): Nonischemic/ chemotherapy induce d cardiomyopathyNo signs or symptoms of worsening of congestive heart failure, potentially t reatment let related Continue lisinopril. 6: 14 PM PDTAssessment & Plan Earnestine - Antonio Renee MD - 03/15/2014 6:13 PM PDTAss ociated Problem(s): Burkitt's lymphoma (HCC)No signs or symptoms of recurrence Continue with observation Return to clinic in 6 months for clinical and laboratory followup documented in this encounter Plan of Treatment [...] | + +--------+ + + + | PATHOLOGY - EXTERNAL | | 06/21/2014 | | | | SCAN | | 12:00 AM | | | | | | [...] + | [facility] | [address] | [place], [place] | [phone] | | [facility] | | [address] | | | - LABORATORY | | | | + + + + + | [facility] | [address] | [place], [place] | | | [facility] | | [address] | | | - LABORATORY | [...] | | | | | mg/dL | [facility] | | | | | | MEDICAL | | | | | | CENTER - | | | | | | LABORATORY | | + + + + + + | eGFR, | >60Comment: GLOMERULAR | >=60 | [facility] | | | non- | FILTRATION | mL/min/1.73m2 | [facility] | | | Nauruan | RATE,ESTIMATED | | MEDICAL | | | | mL/min/1.93w4Tqbk than | | CENTER - | | [...] | | | | | mg/dL | [facility] | | | | | [...] + | [facility] | [address] | [place], [place] | [phone] | | [facility] | | [address] | | | - LABORATORY | | | | + + + + + | [facility] | [address] | [place], [place] | | | [facility] | | [address] | | | - LABORATORY | | | | + + + + + CBC with Differential (03/15/2014 8:53 AM PDT) + + + + + + | Component | Value | Ref Range | Performed | Pathologist | | | | | At | Signature | + + + + + + | White Blood | 8.5 | 4.0 - 11.0 K/uL | [facility] | | | Cells | | | [facility] | | | | | | MEDICAL | | | | | | CENTER - | | | | | | LABORATORY | | + + + + + + | Red Blood | 4.37 | 3.70 - 5.20 | [...] + | [facility] | [address] | [place], [place] | [phone] | | [facility] | | [address] | | | - LABORATORY | | | | + + + + + | [facility] | [address] | [place], [place] | | | [facility] | | [address] [place] [address] | | | - LABORATORY | | [...]
--- OUTSIDE RECORDS SUMMARY | ~2020-06-17 | XMS | Encounter Summary ---
Demographics + + + | Address | [address] | | | [place] [address] | + + + | Home Phone | | + + + | Preferred Language | Unknown | + + + | Marital Status | | + + + | Congregation Affiliation | Unknown | + + + | Race | or | + + + | Ethnic Group | Not or | + + + Author + + + | Author | [facility] | | | and [place] | + + + | Organization | [facility] | | | and [place] [...] [place] | | | | | [address] | | + + + + + | Greta Broncheau | ECON | [place] | | | | | [address] | | + + + + + Care Team Providers + +------+ + | Care Gut Carrier Name | Role | Phone | + +------+ + | eBcky Jennings | PCP | | + +------+ + Reason for Visit + + + | Reason | Comments | + + + | Annual Exam | | + + + | Cardiomyopathy | | + + + Evaluate & Treat (Routine) +--------+--------+ + + + + | Status | Reason | Specialty | Diagnoses / | Referred By | Referred To | | | | | Procedures | Contact | Contact | +--------+--------+ + + + + | Closed | | Cardiology | Diagnoses | Michaela, | Melani, | | | | | Other | ELLEN Hartmann | MD Endy | | | | | primary | [address] | [address] | | | | | cardiomyopat | [address] [place] | [address] | | | | | hies | [place], [place] | [place], | | | | | Procedures | [address] | [place] [address] | | | | | DE OFFICE | Phone: | Phone: | | | | | OUTPATIENT | [phone] | [phone] | | | | | VISIT 25 | Fax: | Fax: | | | | | MINUTES | [phone] | [phone] | +--------+--------+ + + + + Encounter Details +--------+---------+ + + + | Date | Type | Department | Care Team | Description | +--------+---------+ + + + | 08/24/ | Office | [facility] | Endy Polo, | Cardiomyopathy (HCC) | | 2013 | Visit | CARDIOLOGY [address] | (Primary Dx) | | | | [address] [place], | [place], | | | | | [place] [address] | [place] [address] | | | | | [phone] | [phone] | | | | | | | [...] + + + | Blood Pressure | 120/60 | 08/24/2014 12:47 PM | right arm | | | | PDT | | + + + + + | Pulse | 62 | 08/24/2014 12:47 PM | regular | | | | PDT | | + + + + + | Temperature | - | - | | + + + + + | Respiratory Rate | 16 | 08/24/2014 12:47 PM | | | | | PDT | | + + + + + | Oxygen Saturation | - | - | | + + + + + | Inhaled Oxygen | - | - | | | Concentration | | | | + + + + + | Weight | 96.5 kg (212 lb 11.2 | 08/24/2014 12:47 PM | | | | oz) | PDT | | + + + + + | Height | 162.6 cm (5' 4") | 08/24/2014 12:47 PM | | | | | PDT | | + + + + + | Body Mass Index | 36.51 | 08/24/2014 12:47 PM | | | | | PDT | | + + + + + documented in this encounter Progress Notes Endy Polo MD - 08/24/2014 1:00 PM PDTFormatting of this note might be different f rom the original. PATIENT NAME: Frida Christian : 1960: AGE: 53 y.o. PRIMARY CARE: [facility] OUTPATIENT FOLLOW UP VISIT Date of Service: 08/24/2014 HISTORY OF PRESENT ILLNESS: Frida Christian is a 53 y.o. female with a history of non-ischemic, suspecting chemotherapy-i nduced cardiomyopathy, Burkitt's lymphoma, vancomycin-induced nephropathy. She is being see n today for follow up on test results and cardiomyopathy. She was last seen 07/04/2013 at which time the metoprolol was discontinued. Since that time, patient has been doing well from cardiac standpoint. He has been traveling, exercising and enjoying herself. She is feeling great and denies any specific cardiac complaint. There is no palpitation dizziness or lightheadedness. There is no ankle or leg swelling. Patien t can sleep on one pillow at night without difficulty breathing. MEDICAL, SURGICAL, AND PERSONAL HISTORY Past Medical, Surgical, Family, and Social History are reviewed in EPIC. 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 40 tablet 5 ergocalciferol (VITAMIN D2) 01649 UNITS capsule Take 50,000 Units by mouth Once a week. HYDROcodone-acetaminophen (NORCO) 5-325 mg per tablet Take 2 tablets by mouth every 6 h ours as needed. 100 tablet 0 lisinopril (PRINIVIL, ZESTRIL) 10 mg tablet Take 1 tablet by mouth Daily. 30 tablet 5 mometasone-formoterol (DULERA) 100-5 mcg/puff inhaler Inhale 2 puffs into the lungs as needed. Multiple Vitamins-Minerals (ADULT MULTIVITAMIN WITH MINERALS/IRON) TABS Take 1 tablet b y mouth Daily. OMEGA 3 1000 MG CAPS Take 1,000 capsules by mouth Daily. omeprazole (PRILOSEC) 20 mg capsule Take 1 capsule by mouth Daily. 30 capsule 5 ALLERGIES Allergies Allergen Reactions Uncoded Nonscreenable Allergen Metal Vancomycin Was life flighted after taking this ROS Review of Systems Constitutional: Negative for fever, chills, weight loss, malaise/fatigue and diaphoresis. HENT: Negative for hearing loss, nosebleeds, congestion, neck pain and tinnitus. Eyes: Negative for blurred vision and double vision. Respiratory: Negative for cough, shortness of breath, wheezing and stridor. Cardiovascular: Positive for orthopnea and claudication. Negative for chest pain, palpitati ons, leg swelling and PND. Gastrointestinal: Positive for diarrhea. Negative for heartburn, nausea, vomiting, abdomina l pain, constipation, blood in stool and melena. Genitourinary: Positive for urgency and frequency. Negative for dysuria, hematuria and flan k pain. Musculoskeletal: Positive for myalgias and joint pain. Negative for back pain and falls. Skin: Negative for itching and rash. Neurological: Negative for dizziness, tingling (feet are numb from chemotherapy), tremors, seizures, loss of consciousness, weakness and headaches. Endo/Heme/Allergies: Positive for environmental allergies. Negative for polydipsia. Does no t bruise/bleed easily. Psychiatric/Behavioral: Negative for memory loss. The patient is not nervous/anxious and do es not have insomnia. OBJECTIVE: PHYSICAL EXAM BP 120/60 | Pulse 62 | Resp 16 | Ht 1.626 m (5' 4") | Wt 96.48 kg (212 lb 11.2 oz) | BMI 36 .49 kg/m2 Physical Exam Constitutional: She appears well-developed and well-nourished. No distress. Female individual without acute distress. Neck: Normal carotid pulses, no hepatojugular reflux and no JVD present. Carotid bruit is n ot present. Cardiovascular: Normal rate, regular rhythm, S1 normal, S2 normal, normal heart sounds, int act distal pulses and normal pulses. PMI is not displaced. Exam reveals no gallop, no S3, no S4 and no friction rub. No murmur heard. Pulses: Carotid pulses are 2+ on the right side, and 2+ on the left side. Dorsalis pedis pulses are 2+ on the right side, and 2+ on the left side. Pulmonary/Chest: Effort normal and breath sounds normal. No accessory muscle usage. No resp iratory distress. She has no wheezes. She has no rhonchi. She has no rales. Abdominal: Normal appearance, normal aorta and bowel sounds are normal. She exhibits no abd ominal bruit. There is no hepatosplenomegaly. There is no tenderness. Musculoskeletal: She exhibits no edema. Neurological: She is alert. Gait normal. Skin: Skin is warm and dry. Psychiatric: She has a normal mood and affect. Her mood appears not anxious. She does not e xhibit a depressed mood. LAB RESULTS: LIPID No results found for this basename: chol, trig, ldlcalc, hdl, ldl, calculated, cholhdl, ldl ex, hdlex, trigex, cholex CHEMISTRY Lab Results Component Value Date GLU 109 03/15/2014 NA 139 03/15/2014 K 4.2 03/15/2014 CL 106 03/15/2014 CO2 24 03/15/2014 CALCIUM 9.3 03/15/2014 ALKPHOS 132* 03/15/2014 AST 29 03/15/2014 ALT 51* 03/15/2014 BILITOT 0.4 03/15/2014 CREA 0.60 03/15/2014 BUN 12 03/15/2014 EGFR >60 11/14/2013 HEMATOLOGY Lab Results Component Value Date WBC 8.5 03/15/2014 HGB 13.7 03/15/2014 HCT 40.7 03/15/2014 PLT 278 03/15/2014 I reviewed records from Myra Bonner PA-C for office visit on 05/31/14. ASSESSMENT: 1. Nonischemic/chemotherapy-induced cardiomyopathy: A. Echocardiogram from 03/08/2012 shows anterior, anteroseptal hypokinesis. LVEF 50%, mi ld AI, mild MR. B. Normal SPECT MPI on 03/18/2012, LVEF of 50%. C. Echocardiogram done on 02/15/2013 was inconclusive due to to inability to obtain adequa te echocardiography images. In consultation with harvest crew supervisor reading the exam, LVEF is est imated to be normal but it's a nonconclusive study due to the poor imaging, that might be re lated with patient's breast tissue. MUGA test is recommended to be able to evaluate ventric ular function. D. MUGA scan done on 06/13/2013 shows a normal left ventricular size, wall thickness and m otion. Preserved left ventricular systolic function and LVEF is 62%. Normal right ventricu lar size, wall thickness and motion. RV EF is 52%. E. Today, patient is doing well from cardiac standpoint. She remains asymptomatic and fun ctional. Her only complaint is a side effect of fatigue from the metoprolol and she would l helen to get off this medication. Patient is in class I of the [place] [employer] fun ctional class. There is no fluid retention on physical exam. There are no signs or symptom s of overt congestive heart failure. Patient continued to do well off metoprolol. 2. Burkitt lymphoma: On remission, under follow up by Dr. Renee. 3. Vancomycin-induced nephropathy. PLAN: 1. Today, patient is doing well from cardiac standpoint. I will continue with current medi mikey regimen. 2. followup as needed. Electronically signed by: Endy Polo MD [facility] 08/24/2014 13:00 Portions of this chart may have been created with [employer] voice recognition software. Occasi onal wrong-word or sound-alike substitutions may have occurred due to the inherent ruelas itations of voice recognition software. Please read the chart carefully and recognize, using context, where these substitutions have occurred. documented in this encounter Procedure Notes YANETH VALADEZ - 08/24/2014 12:00 AM PDTAssociated Order(s): ECG - EXTERNAL SCANElectroni carolyn signed by Diana Kaba at 08/27/2014 10:16 AM PDTdocumented in this encounter Plan of Treatment + +------+--------+ + + | Name | Type | Priori | Associated Diagnoses | Order Schedule | | | | ty | | | + +------+--------+ + + | ECG 12 lead | ECG | Routin | Cardiomyopathy | Ordered: 08/24/2014 | | | | e | (HCC) | | + +------+--------+ + + documented as of this encounter Procedures + +--------+ + + + | Procedure Name | Priori | Date/Time | Associated Diagnosis | Comments | | | ty | | | | + +--------+ + + + | ECG - EXTERNAL SCAN | | 08/24/2014 | | | | | | 12:00 AM | | | | | | PDT | | | + +--------+ + + + documented in this encounter Visit Diagnoses + + | Diagnosis | + + | Cardiomyopathy (HCC) - Primary Other primary cardiomyopathies | + + documented in this encounter
--- OUTSIDE RECORDS SUMMARY | ~2020-06-17 | XMS | Encounter Summary ---
Demographics + + + | Address | [address] | | | [place] [address] | + + + | Home Phone [...] + + + | Author | [facility] | + + + | Organization | [facility] | + + + | Address | Unknown | + + + | Phone | Unavailable | + + + Support + + + + + | Name | Relationship | Address | Phone | + + + + + | Yue Fischer | ECON | [address] | | | | | [place] | | | | | [address] | | + + + + + | Greta Broncheau | ECON | Unknown | | + + + + + Care Team Providers + +------+ + | Care Acid Remover Name | Role | Phone | + [...] | 2012 | Visit | Oncology at [facility] | [address] | (HCC) (Primary Dx) | | | | [address] | [place], | | | | | Mailcode: [id number] | [place] [address] | | | | | [facility] | [phone] | | | | | and Healing, | | | | | | Building | | | | | | [place], [place] | | | | | | [address] | | | | | | [phone] | | | +--------+---------+ + + + [...] preferre d the procedure be done at [facility] and she was referred to Dr. [...] Ms. Christian is and lives in the [facility]. She is half and half . She [...] clinical interpretation was made by the clinical analytics associate. Rendering Diagnostician: Hong Castañeda PhD, [facility], [facility] Clinical Nutrition Technician Electronically Signed 11/13/2011 3:45PM Assessment: Ms. Christian [...] PICC placement 6) LP to evaluate for [employer]IDE [employer] GROWER disease 7) Would stop glipizide, monitor blood [...] + +--------+ + + + | HIV AB/AG SCREENING | Routin | 11/13/2011 | Burkitt's lymphoma | Results for this | | W/REFLEX TO CONFIRM | e | 2:36 PM | (HCC) [...] + | [facility], POINT | [address] | [place] [address] | | | OF CARE TESTS | [...] 29.0 - 32.0 pg | [facility], | | | | | | POINT OF | | | | | | CARE TESTS | | + + + + + + | [facility] POC | 35.3 (H) | 33.4 - 35.5 | [facility], | | | [...] | [facility], POINT | [address] | [place] [address] | | | OF CARE TESTS | [...] | + + + + + | [facility] | [address] | [place] [address] | | | PATHOLOGY | [address] [...] | [facility] [facility] | MIRI | | [place] [address] [facility] | REGIONAL | | [place] [address] | LABORATORY | + + + + + + + + | Performing | Address | City/State/Zipcode | Phone Number | | Organization | | | | + + + + + | [facility] | [address] [facility] | [place] [address] | | | LABORATORY | | | [...] [facility] | [facility] | | [place] [address] | REGIONAL | | [place] [address] | LABORATORY | + + + + + + + + | Performing | Address | City/State/Zipcode | Phone Number | | Organization | | | | + + + + + | [facility] | [address] | [place] [address] | | | LABORATORY | | | [...] [facility] | | [place] [address] | REGIONAL | | [place] [address] | LABORATORY | + + + + + + + + | Performing | Address | City/State/Zipcode | Phone Number | | Organization | | | | + + + + + | [facility] | [address] | [place] [address] | | | LABORATORY | | | | + + + + + LDH TOTAL, PLASMA (11/13/2011 2:07 PM PST) + +---------+ + + + | Component | Value | Ref Range | Performed | Pathologist | | | | | At | Signature | + +---------+ + + + | LD TOTAL, | 234 (H) | 110 - 205 U/L | [facility] | | | PLASMA | | [...] | + + + + + | [facility] DEPARTMENT OF | [address] | [place] [address] | | | PATHOLOGY | [address] [...] | + + + + + | [facility] DEPARTMENT OF | [address] | [place] [address] | | | PATHOLOGY | [address] | | | + + + + + INR (11/13/2011 2:07 PM PST) + + + + + + | Component | Value | Ref Range | Performed | Pathologist | | | | | At | Signature | + + + + + + | INR | 1.15Comment: | 0.90 - 1.20 INR | [facility] | | | | INR Therapeutic [...] | + + + + + | [facility] | [address] | [place] [address] | | | PATHOLOGY | [address] [...] DEPARTMENT OF | [address] | [place] [address] | | | PATHOLOGY | [address] [...] | + + + + + | [facility] | [address] | [place] [address] | | | PATHOLOGY | [address] | | | + + + + + LAB RESULTS (11/13/2011 12:00 AM PST) + + + | Narrative | Performed At | + + + | | | + + + + + | Transcriptions | + + | Jose M Orantes - 11/18/2011 11:23 AM PST | + [...] or | | | | | | [id number] B-cell | | | | | | population seen. The T | | | | | | cells show a normal | | | | | | CD4:OL0ofade with no | | | | | [...] CD10 | | | | | | [id number] CD22 CD23 CD25 | | | | | | CD34 CD38 CD45 | | | | | | [id number] sKappa | | | | | | [...] (CD20 | | | | | | [id number]) and T cells | | | | [...] | | | | | Data:Code : [id number] | | | | | | HPM 0 C ZOFIA | | | | | | [id number] | | | | | | -RACHEL SMITH | | | | | | [facility]-[id number] | | | | | | WRD: [...] Request: | | | | | | [id number] | | | | | | [id number] | | | | | | | [...] Bowles | | | | | | Susan [...] | + + + + + | [facility] | [address] | [place] [address] | | | PATHOLOGY | [address] [...] CHROMOSOME | Bone Marrow: Full | | [facility] | | | REPORT | StudyReasons for [...] clinical | | | | | | analytics associate. | | | | | | Rendering | | | | | | Diagnostician: Latosha | | | | | | Lucy PhD, ABMG, | | | | | | FACMGClinical | | | | | | CytogeneticistElectronic | | | | | | fernando Signed 11/20/2011 | | | | | [...] + + + + | [facility] | [address] | [place] [address] | | | DIAGNOSTIC | [address] [...]
--- OUTSIDE RECORDS SUMMARY | ~2020-06-17 | XMS | Encounter Summary ---
Demographics + + + | Address | [address] | | | [place] [address] | + + + | Home Phone [...] [facility]ly [facility] | | | and [place] | + + + | Organization | [facility] | | | and [...] [place] | | | | | [address] | | + + + + + | Greta Broncheau | ECON | [place] | | | | | [address] | | + + + + + Care Team Providers + +------+ + | Care Hvac Technician Residential Name | Role | Phone | + +------+ + PCP | Unavailable | + +------+ + Encounter Details +--------+ + + + + | Date | Type | Department | Care Team | Description | +--------+ + + + + | 05/09/ | Hospital | [facility] | Thelma, | | | 2011 - | Encounter | MED CTR MED ONC | Antonio Infante MD [address] | | | | | [address] | [facility] | | | 05/14/ | | [place] [address] | [address] [place] | | | 2011 | | [phone] | [address] | | | | | | | [...] Frida Christian is a 51-year-old woman from [place], [place] with Burkitt l ymphoma wh o was admitted to [facility] on 05/09/2012 for cycle 4A of infusional [...] adverse effects. She then proceeded to the [facility] unit where she received 650 mg [...] red blood cells on day 5 of er treatment. She continued on her outpatient [...] orally daily as needed for diarrhea. 9. Hoonah 5/325 one or two tablets every 6 [...] see Dr. Renee on 05/16/2012 at the [facility] in [place], [place] for clinical and laboratory followup with a lab or emily at 8:30 a.m. and doctor visit at 0900.DICTATED BY: Antonio Renee MD Oncology JOB #: [id number] EXT JOB #:[id number] cc: [facility] <Electronically Signed by Antonio Renee MD> 05/15/12 9920 documented in this encounter Medications at Time [...] | 03/25/20 | | | (VITAMIN D3) 83379 | mouth Once a week. | | [...] encounter H&P Notes Antonio Renee MD - 05/09/2012 10:51 AM PDTDATE: 05/09/2012 IDENTIFYING STATEMENT: Frida Christian is a 51-year-old woman from [place], [place] with Bur miguel lymph cornelia who was admitted to [facility] on 05/09/2012 for cyc le #4A of infusional chemotherapy with Rituxan/hyper-CVAD as well as intrathecal chemothera py. HISTORY OF PRESENT ILLNESS: 1. Presentation in August of 2011 with intractable "searing" abdominal pain. Symptoms prog ressed and on 10/05/2011 she underwent advanced imaging that demonstrated diffuse malignant lymphadenopathy thr oughout the retroperitoneum. 2. 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 Ignacio-Palmer virus was positive by i n situ hybridization. Ki-67 fra ction was greater than 90%. 3. Initiation of Rituxan/hyper-CVAD chemotherapy with intrathecal methotrexate alternating with cytar abine at the [facility] on 11/15/2011. CHIEF COMPLAINT: Frida is now admitted to [facility] for cycle 4A of Rituxa n/hyper-CVAD chemotherapy. REVIEW OF SYSTEMS CONSTITUTIONAL: Denies high fevers, shaking chills, anorexia, nausea, vomiting, weight loss or night sweats. EMNT: Denies odynophagia, dysphagia, tinnitus. CARDIOVASCULAR: Denies chest pains, palpitations or orthopnea. RESPIRATORY: Denies cough, hemoptysis or sputum production. GASTROINTESTINAL: Denies abdominal pain, constipation, diarrhea or bright blood per rectum. GENITOURINARY: Denies hematuria or dysuria. MUSCULOSKELETAL: Denies any joint swelling. She has chronic lumbar back pain potentially re lated to m ultiple intrathecal administrations of chemotherapy. NEUROLOGIC: Denies headaches or visual changes, denies numbness or tingling of the extremit ies. Ant es lower extremity weakness, bowel or bladder incontinence. ENDOCRINE: Denies heat or cold intolerance, polyuria or polydipsia. HEMATOLOGIC: Denies spontaneous bruising or bleeding. PAST MEDICAL HISTORY: None. PAST SURGICAL HISTORY: 1. section 1981. 2. Status post left anterior chest Port-A-Cath. PSYCHOSOCIAL HISTORY: She lives alone and independently in [place], [place] with a large c adre of fa jax members living nearby. HABITS: Positive for tobacco use. Alcohol - positive for remote history of alcohol use. Ca nnabis pos itive for ongoing marijuana use. FAMILY HISTORY: There is no history of cancer in first-degree relatives. CURRENT MEDICATIONS: 1. Acyclovir 400 mg orally twice daily. 2. Coreg 3.125 mg orally twice daily. 3. Lomotil 2.5 mg orally as needed for diarrhea. 4. Ergocalciferol 50,000 units orally once a week. 5. Hoonah 5/325 one or two tablets every 4 to 6h. 6. Lisinopril 10 mg orally daily. 7. Ativan 1 mg every 4 hours as needed. 9. Multivitamin with minerals one tablet orally daily. 10. [place]-3 fish oil 1 gram orally daily. 11. Prilosec 20 mg orally daily. 12. OxyContin 20 mg orally twice daily. 13. MiraLax 17 grams as needed orally for constipation. 14. Compazine 5-10 mg every 6 hours as needed for nausea. 15. Metamucil she takes 1 teaspo on orally twice daily. 16. Senna 1 to 2 tablets orally as needed for constipation. ALLERGIES: NO KNOWN DRUG ALLERGIES. PHYSICAL EXAMINATION VITAL SIGNS: Blood pressure was 114/72, pulse is 82, temperature 36.4 degrees Celsius. Satu ration of oxygen 98% on room air. Weight 84.1 kilograms. HEENT: Sclerae is anicteric. The oropharynx free of lesions. NECK: Supple without thyromegaly. LUNGS: Clear to auscultation. CARDIOVASCULAR: Regular rate and rhythm. Normal S1, normal S2 without rubs, gallops or mur murs. LUNGS: Clear to auscultation. CHEST: Her left anterior chest Port-A-Cath is without surrounding tenderness or erythema a nd was acc essed with a Silver needle and a brisk blood return was documented. ABDOMEN: Soft, nontender, nondistended, no hepatomegaly, no splenomegaly. Bowel sounds pres ent in all 4 quadrants. LYMPH: No palpable cervical, supraclavicular, axillary, or inguinal lymphadenopathy. MUSCULOSKELETAL: No joint tenderness or swelling. She has no evidence of sarcopenia. EXTREMITIES: Without cyanosis, clubbing, or edema. There has been no recurrence of paronych ia around the right great toe. NEUROLOGIC: She is quite awake and alert and calm. Face symmetric, voice articulate. Stat ion and ga it within normal limits. LABORATORY DATA: Hemoglobin is 10, hematocrit is 27.8%, platelet count is 257,000, white co unt is 540 0, comprehensive metabolic panel is entirely within normal limits with the sole exception being an al kaline phosphatase of 119, upper limits normal 110. ASSESSMENT: BURKITT LYMPHOMA. PLAN: Frida proceeded directly to radiology where Dr. Moises Rodas performed a lumbar punct ure with a 22-gauge 3.5 inch spinal needle placed into the thecal sac at L3 and I immediate ly followed with a 1 2 mg injection of methotrexate into the intrathecal space and 2-1/2 mL of preservative-free saline an d withdrew the needle without any adverse effects. She then proceeded directly to [facility] where she wi ll receive Acetaminophen, diphenhydramine and Ri tuxan infusion. On 05/10/2012 she will receive Zofran, dexamethasone, mesna and cyclophosphamide. On 05/11/2012 she will receive Zofran, dexamethasone, mesna and cyclophosphamide. On 05/12/2012 she will receive Zofran, dexamethasone and cyclophosphamide and will complete her mesna infusion. On 05/13/2012 she will receive Zofran, dexamethasone, and vincristine. On Wednesday she will receive Z ofran and a 6 mg subcutaneous injection of Neulasta and will be discharged provi ded there are no adve rse effects. DICTATED BY: Antonio Renee MD Oncology JOB #: [id number] EXT JOB #:[id number] cc: JING Luis, [facility]. <Electronically Signed by Antonio Renee MD> 05/09/12 6145 documented in this encounter Plan of Treatment [...] + + + | White Blood | 5.7 (A) | 4.0 - 11.0 K/uL | [facility] | | | | | | MEDICAL | | | | | | CENTER - | | | | | | LABORATORY | | + + + + + + | Red Blood | 3.30 (L) | 3.70 - 5.20 [...] + | [facility] | [address] | [place], [place] | [phone] | | [facility] | | [address] | | | - LABORATORY | | | | + + + + + | [facility] | [address] | [place], [place] | | | [facility] | | [address] | | | - LABORATORY [...] + | [facility] | [address] | [place], [place] | [phone] | | [facility] | | [address] | | | - LABORATORY | | | | + + + + + | [facility] | [address] | [place], [place] | | | [facility] | | [address] | | | - LABORATORY [...] | | | Screen | | | [facility] | | [...] + | [facility] | [address] | [place], [place] | [phone] | | [facility] | | [address] | | | - LABORATORY | | | | + + + + + | [facility] | [address] | [place], [place] | | | [facility] | | [address], [facility] | | | - LABORATORY | [...] [address] | [place] | [phone] | | [facility] | | [address] | | | - LABORATORY | | | | + + + + + Basic Metabolic Panel (05/13/2012 6:45 AM PDT) + + + + + + | Component | Value | Ref Range | Performed | Pathologist | | | | | At | Signature | + + + + + + | Glucose | 86 | 70 - 109 mg/dL | [facility] [...] 4.5 (L) | 6.0 - 17.0 | [facility] | [...] [address] | [place] | [phone] | | [facility] | | [address] | | | - LABORATORY | | | | + + + + + | [facility] | [address] | [place], [place] | | | [facility] | | [address] | | | - LABORATORY [...] + + + | Red Blood | 2.29 (L) | 3.70 - 5.20 [...] + | [facility] | [address] | [place] | [phone] | | [facility] | | [address] | | | - LABORATORY | | | | + + + + + | [facility] | [address] | [place] | | | [facility] | | [address], [facility] | | | - LABORATORY | | | | + + + + + Product: PRB (05/13/2012 6:00 AM PDT) + + + + + + | Component | Value | Ref Range | Performed | Pathologist | | | | | At | Signature | + + + + + + | Product | PACKED CELLS,IRRADIATED | | [facility] | | | Code | | | [facility] | | | | | | MEDICAL | | | | | | CENTER - | | | | | | LABORATORY | | + + + + + + | UNIT # | [id number] | | [facility] | | | | [...] [facility]. | [address] | [place] | [phone] | | [facility] | | [address] | | | - LABORATORY | | | | + + + + + | [facility] | | | | | [facility] | | | | | - [...] + + + | UNIT # | [id number] | | [facility] | | | | [...] [address] | [place] | [phone] | | [facility] | | [address] | | | - LABORATORY | | | | + + + + + | [facility] | | | | | [facility] | | | | | - [...] + | [facility] | [address] | [place], [place] | [phone] | | [facility] | | [address] | | | - LABORATORY | | | | + + + + + | [facility] | [address] | [place], [place] | | | [facility] | | [address] | | | - LABORATORY [...] | 9.8 | 6.0 - 17.0 | [facility] | [address] | [place] | [phone] | | [facility] | | [address] | | | - LABORATORY | | | | + + + + + | [facility] | [address] | [place] | | | [facility] | | [address], [facility] | | | - LABORATORY | | | | + + + + + CBC no Differential (05/11/2012 6:30 AM PDT) + + + + + + | Component | Value | Ref Range | Performed | Pathologist | | | | | At | Signature | + + + + + + | White Blood | 5.8 (A) | 4.0 - 11.0 K/uL | [facility] | | | Cells | | | [facility] | | | | | | MEDICAL | | | | | | CENTER - | | | | | | LABORATORY | | + + + + + + | Red Blood | 2.62 (L) | 3.70 - 5.20 [...] + | [facility] | [address] | [place], [place] | [phone] | | [facility] | | [address] | | | - LABORATORY | | | | + + + + + | [facility] | [address] | [place], [place] | | | [facility] | | [address] [place] [address] | | | - LABORATORY | | [...] | ine Ratio | | | [facility] | | [...] | 10.0 | 6.0 - 17.0 | [facility] | [...] [address] | [place] | [phone] | | [facility] | | [address] | | | - LABORATORY | | | | + + + + + | [facility] | [address] | [place], [place] | | | [facility] | | [address] | | | - LABORATORY | | | | + + + + + CBC with Differential (05/10/2012 7:24 AM PDT) + + + + + + | Component | Value | Ref Range | Performed | Pathologist | | | | | At | Signature | + + + + + + | White Blood | 4.3 (A) | 4.0 - 11.0 K/uL | [facility] | | | Cells | | | [facility] | | | | | | MEDICAL | | | | | | CENTER - | | | | | | LABORATORY | | + + + + + + | Red Blood | 2.70 (L) | 3.70 - 5.20 [...] + | [facility] | [address] | [place] | [phone] | | [facility] | | [address] | | | - LABORATORY | | | | + + + + + | [facility] | [address] | [place], [place] | | | [facility] | | [address], [facility] | | | - LABORATORY | | | | + + + + + FL Lumbar Puncture (05/09/2012 10:51 AM PDT) + + | Specimen | + + | | + + + + + | Narrative | Performed At | + + + | [facility] Diagnostic Imaging Department | [facility] | | [address] [facility] | [facility] | | FLUOROSCOPY-GUIDED LUMBAR | DIAG IMG [...] | | spot image was saved to [facility] nt needle positioning. | | | Thelma [...] Transcribed Date/Time: | | | 05/09/2012 13:53 Anaesthetic Technician: <Electronically Signed | | | by Moises Rodas MD> 05/09/12 8113 | | + + + + + | Procedure Note | + + | Germain, Rad Conversion - 12/08/2013 5:[address] [facility] | | Diagnostic Imaging Department [address] [place] [address] | | FLUOROSCOPY-GUIDED LUMBAR PUNCTURE FOR INTRATHECAL [...] | <Electronically Signed by Moises Rodas MD> 05/09/123 | |ere no immediate complications. She was transferred from the department in stable conditio n. | | | |IMPRESSION: | |1. TECHNICALLY SUCCESSFUL, FLUOROSCOPY-GUIDED LUMBAR PUNCTURE FOR INTRATHECAL CHEMOTHERAPY ADMINISTR | |ATION, DESCRIBED. | | | |Dictated Date/Time: 05/09/2012 13:48 | |Transcribed Date/Time: 05/09/2012 13:53 | |Anaesthetic Technician: | |<Electronically Signed by Moises Rodas MD> 05/09/12 2323 | + + + +---------+ + + | Performing | Address | City/State/Zipcode | Phone Number | | Organization | | | | + +---------+ + + | [place] | | | | | [facility] | | | | + +---------+ + + documented in this encounter Visit Diagnoses Not on filedocumented in this encounter
--- OUTSIDE RECORDS SUMMARY | ~2020-06-17 | XMS | Encounter Summary ---
Demographics + + + | Address | [address] | | | [place] [address] | + + + | Home Phone | | + + + | Preferred Language | Unknown | + + + | Marital Status | Single | + + + | Voodoo Affiliation | NON | + + + | Race | or | + + + | Ethnic Group | Not or | + + + Author + + + | Author | [facility] [employer] [facility] | + + + | Organization | [facility] | + + + | Address | Unknown | + + + | Phone | Unavailable | + + + Support + + + + + | Name | Relationship | Address | Phone | + + + + + | Yue Fischer | ECON | [address] | | | | | [place] | | | | | [address] | | + + + + + | Greta Broncheau | ECON | Unknown | | + + + + + Care Team Providers + +------+ + | Care Methods Examiner Name | Role | Phone | + [...] 2013 | anned | at [facility] [address] | [address] | | | | | Ave [facility] | [place], [place] | | | | | [facility], | [address] | | | | | [address] | [phone] | | | | | [place], [place] | | | | | | [address] | | | | | | [phone] | | | +--------+ + + + [...]
--- OUTSIDE RECORDS SUMMARY | ~2020-06-17 | XMS | Encounter Summary ---
Demographics + + + | Address | [address] | | | [place] [address] | + + + | Home Phone | | + + + | Preferred Language | Unknown | + + + | Marital Status | | + + + | Mandaen Affiliation | Unknown | + + + | Race | or | + + + | Ethnic Group | Not or | + + + Author + + + | Author | [facility] | | | and [place] | + + + | Organization | [facility] | | | and [...] [place] | | | | | [address] | | + + + + + | Greta Broncheau | ECON | [place] | | | | | [address] | | + + + + + Care Team Providers + +------+ + | Care Equipment Specialist Name | Role | Phone | + +------+ + | Becky Jennings | PCP | | + +------+ + Reason for Visit +--------+--------+ + | Reason | Onset | Comments | | | Date | | +--------+--------+ + | Other | 02/08/ | | | | 2014 | | +--------+--------+ + Encounter Details +--------+ + + + + | Date | Type | Department | Care Team | Description | +--------+ + + + + | 02/08/ | Telephone | [facility] | Thelma, | Other | | 2014 | | MED CTR MEDICAL | Antonio Infante MD [address] | | | | | [facility] CLIN[facility] [address] | [facility] | | | | | [address] | [address] | | | | | [place] [address] | [address] | | | | | [phone] | | | +--------+ + + + [...] this encounter Miscellaneous Notes Telephone Encounter - Marce Haas RN - 02/08/2015 1:50 PM PDTPrescription for Troup authorized by Dr. Adams. Called [facility] in [place] to ask how to get this medic ation refill to her since she could not drive to [place]. Per [place] pharmacist fax presc ription in and make sure to immediately drop original in the mail directly to them. 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 She knows that Dr. Renee is out of the off ice but she needs her refill today. She also lives in [place] and does not have a way to c ome here to [place]. d ocumented in this encounter Plan of Treatment Not on filedocumented as of this encounter Visit Diagnoses + + | Diagnosis | + + | Burkitt's lymphoma (HCC) - Primary Burkitt's tumor or lymphoma, unspecified site, | | extranodal and solid organ sites | + + documented in this encounter"
--- OUTSIDE RECORDS SUMMARY | ~2020-06-17 | XMS | Encounter Summary ---
Demographics + + + | Address | [address] | | | [place] [address] | + + + | Home Phone | | + + + | Preferred Language | Unknown | + + + | Marital Status | | + + + | Spiritism Affiliation | Unknown | + + + | Race | or | + + + | Ethnic Group | Not or | + + + Author + + + | Author | [facility] | | | and [place] | + + + | Organization | [facility] | | | [...] [place] | | | | | [address] | | + + + + + | Greta Estebaneau | ECON | [place] | | | | | [address] | | + + + + + Care Team Providers + +------+ + | Care Quality Assurance Supervisor Name | Role | Phone | + +------+ + | Becky Jennings | PCP | | + +------+ + Encounter Details +--------+ + + + + | Date | Type | Department | Care Team | Description | +--------+ + + + + | 11/14/ | Hospital | [facility] | | | | 2013 - | Encounter | MED CTR CANCER | | | | | | CENTER [address] | | | | 12/01/ | | [place] | | | | 2013 | | [address] | | | | | | [phone] | | | +--------+ + + + [...] | 03/25/20 | | | (VITAMIN D3) [address] | mouth Once a week. | | [...] | | | [facility] | | | [facility] | | | L ? | | | MEDICAL | | | | | | CENTER - | | | | | | LABORATORY | | + +---------+ + + + | White Blood | 8.4 | 4.0 - 11.0 K/uL | [facility] | | | Cells | | | [facility] | | | | | | MEDICAL | | | | | | CENTER - | | | | | | LABORATORY | | + +---------+ + + + | Red Blood | 3.87 | 3.70 - 5.20 | [...] | [facility] | [address] | [place] | [phone] | | [facility] | | [address] | | | - LABORATORY | | | | + + + + + | [facility] | [address] | [place], [place] | | | [facility] | | [address], [facility] | | | [...] | | Protein | | | [facility] | | [...] | [facility] | [address] | [place], [place] | [phone] | | [facility] | | [address] | | | - LABORATORY | | | | + + + + + | [facility] | [address] | [place], [place] | | | [facility] | | [address], [facility] | | | [...] | [facility] | [address] | [place] | [phone] | | [facility] | | [address] | | | - LABORATORY | | | | + + + + + | [facility] | [address] [address] | [place] | | | [facility] | | [address] | | | - LABORATORY | | | | + + + + + documented in this encounter Visit Diagnoses Not on filedocumented in this encounter"
--- OUTSIDE RECORDS SUMMARY | ~2020-06-17 | XMS | Encounter Summary ---
Demographics + + + | Address | [address] | | | [place] [address] | + + + | Home Phone | | + + + | Preferred Language | Unknown | + + + | Marital Status | | + + + | Mormonism Affiliation | Unknown | + + + | Race | or | + + + | Ethnic Group | Not or | + + + Author + + + | Author | [facility] | | | and [place] | + + + | Organization | [facility] | | | and [...] [place] | | | | | [address] | | + + + + + | Greta [place]au | ECON | [place] | | | | | [address] | | + + + + + Care Team Providers + +------+ + | Care Brick Tender Name | Role | Phone | + +------+ + | Becky Jennings | PCP | | + +------+ + Encounter Details +--------+ + + + + | Date | Type | Department | Care Team | Description | +--------+ + + + + | 02/15/ | Hospital | [facility] | | | | 2012 | Encounter | MED CTR XRAY [address] | | | | | | [address] | | | | | | [place] [address] | | | | | | [phone] | | | +--------+ + + + [...] | 03/25/20 | | | (VITAMIN D3) [address] | mouth Once a week. | | [...] Performed At | + + + | [facility] Diagnostic Imaging | [facility] | | [place] [address] | [facility] | | [ [address]] [ rep [address] city | [facility] | | st zip] Signed | - IMAGING | | | | | Patient Name: ZOFIA YOUNG Physician: | | | FARAZ.[id number] : 1960 Age: 52 Sex: F Unit #: [id number] | | | Exam Date: 02/15/13 Location: [facility] | | | Report #: [id number] Page: | | | %(RAD)RES..mtdd.print.filter("pg") of %(RAD) | | | RES..mtdd.print.filter("tpg") | | | | | | Accession Number: [id number] | | | E C H O C A R D I O G R A P H Y R E P O R T | | | HEIGHT: 5'4" WEIGHT: 210# | | | FMD TEACHER: AP REFERRING DR: LEANN NEUMANN | | | DR: ILEANA DIAGNOSIS: HX [...] Transcribed Date/Time: | | | 02/16/2013 13:58 Ticket Printer And Tagger: | | | <<Signature on File>> | | | S | | | Leander Tejeda MD02/17/13 0916 <Electronically signed by S Darline. | | | Ileana LOZADA> S Leander Tejeda MD 02/16/13 1312 | | | Ticket Printer And Tagger: Attenex [id number]/18/13 0636 | | | Antonio Renee MD | | + + + + + + + + | Performing | Address | City/State/Zipcode | Phone Number | | Organization | | | | + + + + + | [facility] | [address] | [place] | [phone] | | [facility] | | [address] | | | - IMAGING | | | | + + + + + documented in this encounter Visit Diagnoses Not on filedocumented in this encounter
--- OUTSIDE RECORDS SUMMARY | ~2020-06-17 | XMS | Encounter Summary ---
Demographics + + + | Address | [address] | | | [place] [address] | + + + | Home Phone [...] | Organization | [facility] | | | and [...] [place] | | | | | [address] | | + + + + + | Greta Broncheau | ECON | [place] | | | | | [address] | | + + + + + Care Team Providers + +------+ + | Care Investigative Analyst Name | Role | Phone | + +------+ + | Becky Jennings | PCP | | + +------+ + Reason for Visit + + + | Reason | Comments | + + + | Follow-up | [facility]GA 06/13/13, Four month | + + + [...] | Cardiology | Diagnoses | [place], | Lm, | | | | | Chest pain, | ELLEN Hartmann | ELLEN Albarran | | | | | unspecified | [address] | [address] | | | | | Procedures | [address] [place] | [place] | | | | | MD OFFICE | [place] | | | | | OUTPATIENT | [address] | [address] | | | | | VISIT 25 | Phone: | Phone: | | | | | MINUTES | [phone] | [phone] | | | | | | Fax: | Fax: | | | | | | [phone] | [phone] | +--------+--------+ + + + + Encounter Details +--------+---------+ + + + | Date | Type | Department | Care Team | Description | +--------+---------+ + + + | 07/04/ | Office | [facility] | Lm, | Nonischemic/ | | 2012 | Visit | CARDIOLOGY [address] | ELLEN Albarran [address] | chemotherapy induced | | | | [place], | [place], | cardiomyopathy | | | | [place] [id number] | [place] [id number] | (Primary Dx); Chest | | | | [phone] | [phone] | pain | | | | | [...] tablet on days 2-5 Cholecalciferol (VITAMIN D3) 46159 UNITS CAPS Active Take 50,000 Units by [...] adequa te echocardiography images. In consultation with application development project manager reading the exam, LVEF is est imated [...] Patient is in class I of the [place] [employer] fun ctional class. There is [...] one year or sooner if any concerns I, ELLEN Rivera, saw this patient under the direct supervision of Endy Polo MD Portions of this report were transcribed using voice recognition software. Every effort wa s made to ensure accuracy; however, inadvertent computerized radio broadcaster errors may be pre sent. 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
--- OUTSIDE RECORDS SUMMARY | ~2020-06-17 | XMS | Encounter Summary ---
Demographics + + + | Address | [address] | | | [place] [address] | + + + | Home Phone [...] Author | [facility] | | | and [place] | + + + | Organization | [facility] | | | and [...] [place] | | | | | [address] | | + + + + + | Greta Broncheau | ECON | [place] | | | | | [address] | | + + + + + Care Team Providers + +------+ + | Care Sales And Business Development Manager Name | Role | Phone | + +------+ + | Becky Jennings | PCP | | + +------+ + Reason for Visit + +--------+ + | Reason | Onset | Comments | | | Date | | + +--------+ + | Appointment | 07/03/ | | | | 2013 | | + +--------+ + Encounter Details +--------+ + + + + | Date | Type | Department | Care Team | Description | +--------+ + + + + | 07/03/ | Telephone | [facility] | Endy Polo, | Appointment | | 2013 | | CARDIOLOGY [address] | [address] [place] | | | | | [place], | [place], | | | | | [place] [address] | [place] [address] | | | | | [phone] | [phone] | | | | | | | [...] this encounter Miscellaneous Notes Telephone Encounter - Alfreda Vinson - 10/15/2014 3:32 PM PSTPatient no showed on 07/30 . Duplicate encounter. Patient rescheduled and was seen by Dr. Ha on 08/24. elephone Encounter - Michelle Navarrete - 07/09/2014 10:41 AM PDTUnable to reach. 14 10:41 AM PDTTelephone Encounter - Michelle Navarrete - 07/03/2014 9:21 AM PDTHOPPER LM for patient to return our call to confirm 07-30 @1400 SUW will work for her.Electronical ly signed by Michelle Navarrete at 07/03/2014 9:22 AM PDTdocumented in this encounter Plan of Treatment Not on filedocumented as of this encounter Visit Diagnoses Not on filedocumented in this encounter"
--- OUTSIDE RECORDS SUMMARY | ~2020-06-17 | XMS | Encounter Summary ---
Demographics + + + | Address | [address] | | | [place] [address] | + + + | Home Phone | | + + + | Preferred Language | Unknown | + + + | Marital Status | Single | + + + | Hindu Affiliation | NON | + + + | Race | or | + + + | Ethnic Group | Not or | + + + Author + + + | Author | [facility] | + + + | Organization | [facility] | + + + | Address | Unknown | + + + | Phone | Unavailable | + + + Support + + + + + | Name | Relationship | Address | Phone | + + + + + | Yue Fischer | ECON | [address] | | | | | [place] | | | | | [address] | | + + + + + | Greta Broncheau | ECON | Unknown | | + + + + + Care Team Providers + +------+ + | Care Surgeon Partner Name | Role | Phone | + [...] | | | PUNCTURE 4 | [facility] | [facility] | | | | | CHEMO ADMIN | [facility] | [facility] and | | | | | W/GUIDANCE | Rd | Healing, | | | | | | [place], [place] | Building [address], | | | | | | [address] | [facility] Floor | | | | | | Phone: | [place], [place] | | | | | | [phone] | [address] | | | | | | Fax: | Phone: | | | | | | [phone] | [phone] | | | | | | | Fax: | | | | | | | [phone] | +--------+--------+ + + + + Diagnostic [...] | | PUNCTURE 4 | Emeka | [place] [facility] | | | | | CHEMO ADMIN | [facility] | Health and | | | | | W/GUIDANCE | [place], [place] | Healing, | | | | | | [address] | Building 1, | | | | | | Phone: | 3rd Floor | | | | | | [phone] | [place], [place] | | | | | | Fax: | [address] | | | | | | [phone] | Phone: | | | | | | | [phone] | | | | | | | Fax: | | | | | | | [phone] | +--------+--------+ + + + + Diagnostic [...] | ABDOMEN & | PA-C [address] | [facility] | | | | | PELVIS W IV | [facility] | [address] [facility] | | | | | CONTRAST | [facility], | | | | | | Rd | [facility] Floor | | | | | | [place], [place] | [place], [place] | | | | | | [address] | [address] | | | | | | Phone: | Phone: | | | | | | [phone] | [phone] | | | | | | Fax: | Fax: | | | | | | [phone] | [phone] | +--------+--------+ + + + + Diagnostic [...] | | | | Jordan Ceballos, | [facility] [address] | | | | | TRANSTHORACI | PA-C [address] | | | | | C | [address] | [address] | | | | | ECHOCARDIOGR | [place]me[place] [address] | Maya | | | | | AM, ADULT | Rd | Building, 2nd | | | | | | [place], [place] | floor | | | | | | [address] | [place], [place] | | | | | | Phone: | [phone] | | | | | | [phone] | Phone: | | | | | | Fax: | [phone] | | | | | | [phone] | | +--------+--------+ + + + + [...] | | 2011 - | Encounter | [facility] Mailcode: | [address] | | | | | KPV14 [address] | Jena Saravia [place], | | | 12/06/ | | [place], | [place] [address] | | | 2011 | | [place] [address] | [phone] | | | | | [phone] | | | | | | | Marly Ruiz MD | | | | | | [address] | | | | | | [address] | | | | | | [place], [place] | | | | | | [address] | | | | | | [phone] | | | | | | | | | | | | Dylan Martinez | | | | | | MD [address], | | | | | | [address] | | | | | | [address] | | | | | | [place], [place] | | | | | | [address] | | | | | | [phone] | | | | | | | [...] Lucila Young is a 51 year old [place] woman with 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 She has been induced with hyper-CVAD R. BL: - sporadic case, HIV negative, no PLUNGER SHOVEL OPERATOR involvement - day 22 of hyper-CVAD/Rituxan 1A, [...] in ~ [address] [facility] [address] [facility] Mailcode: Kpv14 [place] [facility] [address] [facility] DEPARTMENT: [id number]- [facility] FACULTY MP Place of Service:- Inpatient Date of Service: 12/06/2011 Suggested CPT: 71598 - Subsequent, Detailed/High complex 35 min da [...] with her to be filled at the [facility]. Physical Exam on Day of Discharge Subjective: [...] the risk of infection. Your nurse or lining vamper will provide you with information about foods [...] MD to follow Dr Renee's office at [facility] on 12/07/11 for a neulasta injection at 10:50AM. They will then arrange for you to have follow appointments for labs and blood tr ansfusions if needed twice a week until your counts recover. Dr Martinez office will call you to arrange for follow up and for more chemotherapy at [facility] for Hematologic Malignancies. Your Follow-Up Plan Follow-up information has not been specified. 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 You will [...] follow up Discharging Physician: GURPREETANALISA GOODMAN PA-C [facility] 14 [address] [facility] Mailcode: Kpv14 [place] [facility] [address] documented in this enc ounter Discharge Instructions Instructions Neeta Gaines RN - 12/03/2011CASE MANAGEMENT ARRANGED SERVICES; You have an appointment for Wednesday12/07/11 at 10:50am for your Neulasta. They will also be s eeing you 2-3 times a week for your lab draws and if any transfusions are needed you will ge t them there. Address for appointment is [address] [place] [address]. And the phone number is . Directions from the Primary office is to turn right off [address] on and follow to Will and . You will need to seek any medical attention for any acute issues to [facility]. Additional Instructions: Check your oral [...] rest. Call if you have any questions! 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 She has been induced with hyper-CVAD R. BL: - sporadic case, HIV negative, no PLUNGER SHOVEL OPERATOR involvement - day 21 of hyper-CVAD/Rituxan 1A, [...] Code status: full [facility]: [facility]up and Neulasta with Dr. Renee, follow-up wit Dr. Hutchins for hyper-CVAD IIA in ~ [address] [facility] [address] [place] [address] Mailcode: Kpv14 [facility] [address] [facility] DEPARTMENT: [id number]- [facility] FACULTY [facility] Place of Service:- Inpatient Date of Service: 12/05/2011 Suggested CPT: 06469 - Subsequent, Detailed/High complex 35 min Ida [...] distress sitting up at the edge of [facility] bed. HEENT: Sclerae anicteric. Mucosa [...] prompting a return visit to [facility] office on 09/30/2011. She continued to [...] cycle B 12/02 then follow up in [place] area. -CBC reviewed and noted for recovery. [...] any diabetic medication. Dispo: Patient is from [place], [place] and utilizes [facility]. [...] with her to be filled at the [facility]. GURPREET NORWOOD PA-C 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 She has been induced with hyper-CVAD R. BL: - sporadic case, HIV negative, no PLUNGER SHOVEL OPERATOR involvement - day 20 of hyper-CVAD/Rituxan 1A, [...] 11/26 Code status: full [facility] [address] [facility] Mailcode: Kpv14 [place] [address] [facility] DEPARTMENT: [id number]- [facility] FACULTY MPV Place of Service:- Inpatient Date of Service: 12/04/2011 Suggested CPT: 54749 - Subsequent, Detailed/High complex 35 min Ida [...] cycle B 12/02 then follow up in [facility]. -CBC reviewed and noted for recovery. -2/2 [...] could consider change in diet to ADA 5766-4126, or adding o ral agent. Dispo: Patient is from [place], [place] and utilizes [facility]. [...] with her to be filled at the [facility]. GURPREET NORWOOD PA-C 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 She has been induced with hyper-CVAD R. BL: - sporadic case, HIV negative, no PLUNGER SHOVEL OPERATOR involvement - day 19 of hyper-CVAD/Rituxan 1A, [...] [facility] KPV [address] [facility] Mailcode: Kpv14 [place] [address] [facility] DEPARTMENT: [id number]- [facility] FACULTY MPV Place of Service:- Inpatient Date of Service: 12/03/2011 Suggested CPT: 34782 - Subsequent, Detailed/High complex 35 min Eunice [...] Bx 11/13/11 Normocellular marrow with trilineage hematopoiesis, ARDHA -LP with IT MTX under fluoro 11/18 [...] could consider change in diet to ADA 7543-2741, or adding o ral agent. Dispo: Patient is from [place] and utilizes [employer] [facility]. Currently has OHP application pending. Patient requesting to have her care at [facility]. Currently working to have local oncologist to follow patient between chemotherapy cycles. 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 She has been induced with hyper-CVAD R. BL: - sporadic case, HIV negative, no PLUNGER SHOVEL OPERATOR involvement - day 18 of hyper-CVAD/Rituxan 1A, [...] 11/26 Code status: full DYLAN MARTINEZ MD [facility] [address] [facility] Mailcode: Kpv14 [facility] [address] [facility] DEPARTMENT: [id number]- [facility] FACULT[facility] Place of Service:- Inpatient Date of Service: 12/02/2011 Suggested CPT: 50891 - Subsequent, Detailed/High complex 35 min Eunice [...] starting today 12/02 then follow up in [facility]. -CBC reviewed and noted for recovery. Hospitalization [...] could consider change in diet to ADA 2459-5261, or adding o ral agent. Dispo: Patient is from [place], [place] and utilizes [employer]. Currently has OHP application pending. Patient requesting to have her care at [facility]. Currently working to have local oncologist to follow patient between chemotherapy cycles. RAHUL Coto ANP 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 She has been induced with hyper-CVAD R. BL: - sporadic case, HIV negative, no PLUNGER SHOVEL OPERATOR involvement - day 17 of hyper-CVAD/Rituxan 1A, [...] 11/26 Code status: full DYLAN MARTINEZ MD [facility] 14 [address] [facility] Mailcode: Kpv14 [place] [facility] [address] [facility] DEPARTMENT: [id number]- [facility] FACULT[facility] MPV Place of Service:- Inpatient Date of Service: 12/01/2011 Suggested CPT: 56582 - Subsequent, Detailed/High complex 35 min Eunice [...] give cycle B then follow up in [place] area. -CBC reviewed and noted for recovery. [...] could consider change in diet to ADA 7803-4624, or adding o ral agent. Dispo: Patient is from [place] and utilizes [employer]. Currently has OHP application pending. Patient requesting to have her care at [facility]. Currently working to have local oncologist to follow patient between chemotherapy cycles. RAHUL Coto ANP 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 She has been induced with hyper-CVAD R. BL: - sporadic case, HIV negative, no PLUNGER SHOVEL OPERATOR involvement - day 16 of hyper-CVAD/Rituxan 1A, [...] [facility] KP [address] [facility] Mailcode: Kpv14 [place] [address] [facility] DEPARTMENT: [id number]- [facility] FACULT[facility] MPV Place of Service:- Inpatient Date of Service: 11/30/2011 Suggested CPT: 08839 - Subsequent, Detailed/High complex 35 min Eunice [...] care post B cycle of hyper-cvad in [place]. Objective: Last Vitals: BP 123/75 | Pulse [...] give cycle B then follow up in [place] area. -CBC reviewed and noted for recovery. [...] could consider change in diet to ADA 8237-1862, or adding o ral agent. Dispo: Patient is from [place] and utilizes [facility]. Currently has OHP application pending. Patient requesting to have her care at [facility]. Currently working to have local oncologist to follow patient between chemotherapy cycles. RAHUL Coto ANP [facility] KP [address] [facility] Mailcode: Kpv14 [place] [facility] [address] Shimon Raymundo MD,PhD - 11/29/2011 [...] C difficile diarrhea Shimon Harvey MD PhD [facility] DEPARTMENT: [id number] [place] [address] Place of Service: - Inpatient Date of Service: 11/29/2011 Suggested CPT: 77331 - Subsequent, Detailed/High complex 35 min Shimon [...] C difficile diarrhea Shimon Harvey MD PhD [facility] DEPARTMENT: [id number]- [facility] Place of Service: - Inpatient Date of Service: 11/28/2011 Suggested CPT: 05995 - Subsequent, Detailed/High complex 35 min Maricel Hemphill [facility] - 11/28/2011 11:25 AM PST Daily NPP [...] prompting a return visit to [facility] P[facility] office on 09/30/2011. She continued to [...] MTX under fluoro on 11/18 to r/o PLUNGER SHOVEL OPERATOR involvement, Done under fluoro d /t pt [...] could consider change in diet to ADA 9843-5303, or adding o ral agent. Dispo: Patient is from [place] and utilizes [place] [facility]. Currently has OHP application pending. Patient requesting to have her care at [facility]. Currently working to have local oncologist to follow patient between chemotherapy cycles. 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 She has been induced with hyper-CVAD R. BL: - sporadic case, HIV negative, no PLUNGER SHOVEL OPERATOR involvement - day 13 of hyper-CVAD/Rituxan 1A [...] 11/26 Code status: full DYLAN MARTINEZ MD [facility] [address] [facility] Mailcode: Kpv14 [facility] [address] [facility] DEPARTMENT: [id number]- [facility] FACULT[facility] MPV Place of Service:[address]- Inpatient Date of Service: 11/27/2011 Suggested CPT: 92387 - Subsequent, Detailed/High complex 35 min Herrera, PRABHAKAR Gupta - 11/27/2011 1:00 PM PST Daily NPP Note - [facility]otherapy [facility] Attending: Dylan Martinez MD PCP: JING uLis Date of Admission: 11/13/11 Hematologic Malignancy: Burkitts [...] prompting a return visit to [facility] office on 09/30/2011. She continued to [...] MTX under fluoro on 11/18 to r/o PLUNGER SHOVEL OPERATOR involvement, Done under fluoro d /t pt [...] could consider change in diet to ADA 4919-8614, or adding o ral agent. Dispo: Patient is from [place] and utilizes [employer]. Currently has OHP application pending. Patient requesting to have her care at [facility]. Currently working to have local oncologist to follow patient between chemotherapy cycles. 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 She has been induced with hyper-CVAD R. BL: - sporadic case, HIV negative, no PLUNGER SHOVEL OPERATOR involvement - day 12 of hyper-CVAD/Rituxan 1A [...] [facility] KPV [address] [facility] Mailcode: Kpv14 [facility] [place] [address] [facility] DEPARTMENT: [id number]- [facility] F[facility] Place of Service:- Inpatient Date of Service: 11/26/2011 Suggested CPT: 88619 - Subsequent, Detailed/High complex 35 min anning, [...] prompting a return visit to [facility] office on 09/30/2011. She continued to [...] MTX under fluoro on 11/18 to r/o PLUNGER SHOVEL OPERATOR involvement, Done under fluoro d /t pt [...] could consider change in diet to ADA 7397-0910, or adding o ral agent. Dispo: Patient is from [place] and utilizes [facility]. Currently has OHP application pending. Patient requesting to have her care at [facility]. Currently working to have local oncologist to follow patient between chemotherapy cycles. PRABHAKAR MOYA [facility] [address] [facility] Mailcode: Kpv14 [place] [facility] [address] Osiel Lemon MD - 0 11/25/2011 2:45 [...] 2. Burkitt's Lymphoma, on chemo P: Per Qoig-Orj-muw can follow up with Surg Onc in the remote future (1 to 2 months fine) unle ss there are intervening issues. OSIEL ALMANZA MD 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 She has been induced with hyper-CVAD R. BL: - sporadic case, HIV negative, no PLUNGER SHOVEL OPERATOR involvement - day 11 of hyper-CVAD/Rituxan 1A [...] steroids Code status: full DYLAN MARTINEZ MD [facility] 14 [address] [facility] Mailcode: Kpv14 [facility] [address] [facility] DEPARTMENT: [id number]- [facility] F[facility] MP Place of Service:- Inpatient Date of Service: 11/25/2011 Suggested CPT: 02456 - Subsequent, Detailed/High complex 35 min annmaame, [...] prompting a return visit to [facility] office on 09/30/2011. She continued to [...] MTX under fluoro on 11/18 to r/o PLUNGER SHOVEL OPERATOR involvement, Done under fluoro d /t pt [...] could consider change in diet to ADA 3186-5942, or adding oral agent. Dispo: Patient is from [place] and utilizes [employer]. Currently has OHP application pending. Patient requesting to have her care at [facility]. Currently working to have local oncologist to follow patient between chemotherapy cycles. 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 She has been induced with hyper-CVAD R. BL: - sporadic case, HIV negative, no PLUNGER SHOVEL OPERATOR involvement - day 10 of hyper-CVAD/Rituxan 1A [...] steroids Code status: full DYLAN MARTINEZ MD 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 She has been induced with hyper-CVAD R. BL: - sporadic case, HIV negative, no PLUNGER SHOVEL OPERATOR involvement - day 9 of hyper-CVAD/Rituxan 1A [...] steroids Code status: full DYLAN MARTINEZ MD [facility] [address] [facility] Mailcode: Kpv14 [facility] [place] [address] [facility] DEPARTMENT: [id number]- [facility] FAC[facility] MPV Place of Service:[address]- Inpatient Date of Service: 11/23/2011 Suggested CPT: 84986 - Subsequent, Detailed/High complex 35 min ang MaricelMiladis [employer] - 11/23/2011 12:52 PM PST Daily NPP [...] by her PCP on 09/09/2011. She was ssuan gnosed with diabetes and started on glipizide [...] MTX under fluoro on 11/18 to r/o PLUNGER SHOVEL OPERATOR involvement, Done under fluoro d /t pt [...] 125 mg po QID. Will need at [facility] a 14 day course Fungal: [...] could consider change in diet to ADA 6457-6464, or adding oral agent. Dispo: Patient is from [place] and utilizes [employer]. Currently has OHP application pending. Patient requesting to have her care at [facility]. Currently working to have local oncologist to follow patient between chemotherapy cycles. CHARLIE NICHOLSON [facility] KPV [address] [facility] Mailcode: Kpv14 [place] [facility] [address] Lala Santana MD - 0 11/22/2011 4:09 [...] our orders from today. LALA AVINA MD [facility] 14 [address] [facility] Mailcode: Kpv14 [facility] [address] [facility] DEPARTMENT: [id number] F[facility] Place of Service:- Inpatient Date of Service: 11/22/2011 Suggested CPT: 45183 - Subsequent, Detailed/High complex 35 min Jordna Saucedo PA-C - 11/22/2011 1:42 PM PST [...] MTX under fluoro on 11/18 to r/o PLUNGER SHOVEL OPERATOR involvement, Done under fluoro d /t pt [...] steroids, CBG's improving. Dispo: Patient is from [place] and utilizes [facility]. Currently has OHP application pending. Patient requesting to have her care at [facility]. Currently working to have local oncologist to follow patient between chemotherapy cycles. JORDAN SALINAS PA-C [facility] KPV [address] [facility] Mailcode: Kpv14 [place] [facility] [address] Lala Santana MD - 11/21/2011 1:37 PM [...] our orders from today. LALA AVINA MD [facility] 14 [address] [facility] Mailcode: Kpv14 [facility] [address] [facility] DEPARTMENT: [id number] Place of Service:- Inpatient Date of Service: 11/21/2011 Suggested CPT: 66021 - Subsequent, Detailed/High complex 35 min Jordan [...] prompting a return visit to [facility] P[facility] office on 09/30/2011. She continued to [...] MTX under fluoro on 11/18 to r/o PLUNGER SHOVEL OPERATOR involvement, Done under fluoro d /t pt [...] steroids, CBG's improving. Dispo: Patient is from [place], [place] and utilizes [facility]. Currently has [place] application pending. Patient requesting to have her care at [facility]. Currently working to have local oncologist to follow patient between chemotherapy cycles. JORDAN SALINAS PA-C [facility] KPV [address] [facility] Mailcode: Kpv14 [facility] [address] Lala Santana MD - 11/20/2011 2:20 PM [...] [facility] KP [address] [facility] Mailcode: Kpv14 [facility] [address] [facility] DEPARTMENT: [id number] [facility] FACULT[facility] MPV Place of Service:- Inpatient Date of Service: 11/20/2011 Suggested CPT: 77192 - Subsequent, Detailed/High complex 35 min ordan [...] MTX under fluoro on 11/18 to r/o PLUNGER SHOVEL OPERATOR involvement, Done under fluoro d /t pt [...] sugars now off steroids. JORDAN SALINAS PA-C [facility] [address] [facility] Mailcode: Kpv14 [place] [address] henShimon MD,Ph D - 11/19/2011 4:24 PM [...] diff diarrhea diabetes Shimon Harvey MD PhD [facility] DEPARTMENT: [id number]- [facility]ULT[facility] Place of Service: - Inpatient Date of Service: 11/19/2011 Suggested CPT: 57886 - Subsequent, Detailed/High complex 35 min Karla [...] prompting a return visit to [facility] on 09/30/2011. She continued to [...] MTX under fluoro on 11/18 to r/o PLUNGER SHOVEL OPERATOR involvement, Done under fluoro d /t pt [...] G's in setting of Dex. [facility] [address] [facility] Mailcode: Kpv14 [facility] [address] Lala Santana MD - 11/18/2011 12:36 PM [...] our orders from today. LALA AVINA MD [facility] [address] [facility] Mailcode: Kpv14 [facility] [address] [facility] DEPARTMENT: [id number]- [facility] MPV Place of Service:- Inpatient Date of Service: 11/18/2011 Suggested CPT: 91668 - Subsequent, Detailed/High complex 35 min Maricel [...] lymphoma -will require LP today(11/18) to r/o PLUNGER SHOVEL OPERATOR involvement, plan to do under fluoro d/t [...] [facility] KPV [address] [facility] Mailcode: Kpv14 [facility] [id number] s Lala Santana MD - 0 11/17/2011 [...] our orders from today. LALA AVINA MD [facility] 14 [address] [facility] Mailcode: Kpv14 [facility] [id number] [facility] DEPARTMENT: [id number] [facility] Place of Service:- Inpatient Date of Service: 11/17/2011 Suggested CPT: 65714 - Subsequent, Detailed/High complex 35 min Maricel [...] prompting a return visit to [facility] on 09/30/2011. She continued to [...] require LP in near future to r/o PLUNGER SHOVEL OPERATOR involvement, will do 11/18 and plan to [...] [facility] KPV [address] [facility] Mailcode: Kpv14 [facility] [address] s Jacklyn Silverman - 4:51 PM PSTTransthoracic [...] day 2. Orders for chemotherapy placed in [facility] chemotherapy electronic order system; rituximab altered to [...] our orders from today. LALA AVINA MD [facility] [address] [facility] Mailcode: Kpv14 [facility] [address] [facility] DEPARTMENT: [id number]- [facility] MPV Place of Service:- Inpatient Date of Service: 11/16/2011 Suggested CPT: 78692 - Subsequent, Detailed/High complex 35 min aricel [...] require LP in near future to r/o PLUNGER SHOVEL OPERATOR involvement, hold off on holiday weekend and [...] in set ting of Dex. CHARLIE NICHOLSON [facility] [address] [facility] Mailcode: Kpv14 [place] [address] s Marly Maldonado MD - 11/15/2011 2:36 [...] initiate treatment Orders for chemotherapy placed in [facility] chemotherapy electronic order system; rituximab al tered [...] orders = 80 mins MARLY RUIZ MD [facility] 13 [address] [facility] Mailcode: Kpv13 [facility] [address] [facility] DEPARTMENT: [id number]- [facility] MPV Place of Service:- Inpatient Date of Service: 11/15/11 Suggested CPT:14622 - Subsequent, Detailed/High complex 35 min, 29519- Prolonged service face to face 1st 30 minutes and 73683- Prolonged service face to face each addt [...] require LP in near future to r/o PLUNGER SHOVEL OPERATOR involvement, hold off on holiday weekend and [...] set ting of Dex. JORDAN SALINAS PA-C [facility] [address] [facility] Mailcode: Kpv13 [facility] [id number] Marly Maldonado M D - 11/14/2011 3:01 [...] [facility] KP 13 [address] [facility] Mailcode: Kpv13 [facility] [address] [facility] DEPARTMENT: [id number]- [facility] MPV Place of Service:- Inpatient Date of Service: 11/14/11 Suggested CPT:53008 - Subsequent, Detailed/High complex 35 min Jordan [...] prompting a return visit to [facility] on 09/30/2011. She continued to [...] require LP in near future to r/o PLUNGER SHOVEL OPERATOR involvement, hold off on holiday weekend and [...] [facility] KPV [address] [facility] Mailcode: Kpv13 [place] [address] documented in this encounter Plan of Treatment [...] BEACON | e | 11:45 AM | ([facility]) | | | | | PST | | | + +--------+ + + + | NURSING | Routin | 12/02/2011 | Burkitt's lymphoma | | | COMMUNICATION #10 - | e | 11:45 AM | ([facility]) | | | BEACON | | PST [...] SHELLIE | [address] | [place], [place] | | | [facility] | [address] | [address] | | | TESTS | | | [...] HENSLEY | [address] | [place], [place] | | | [facility] | [address] | [address] | | | TESTS | | | [...] DEPARTMENT OF | [address] | [place] [address] | | | PATHOLOGY | [address] [...] DEPARTMENT OF | [address] | [place] [address] | | | PATHOLOGY | [address] [...] | + + + + + | [facility] | [address] | [place] [address] | | | PATHOLOGY | [address] [...] | + + + + + | [facility] | [address] | [place] [address] | | | PATHOLOGY | [address] [...] DEPARTMENT OF | [address] | [place] [address] | | | PATHOLOGY | [address] [...] HOSPITAL DEPARTMENT | [address] | [place] [address] | | | PATHOLOGY | [address] [...] | + + + + + | [facility] | [address] | [place] [address] | | | PATHOLOGY | [address] [...] | | | RLB ([address] [facility]) [facility] | | | [address] [place] [address] | | + + + + + + + + | Performing | Address | City/State/Zipcode | Phone Number | | Organization | | | | + + + + + | [facility] | [address] | [place] [address] | | | LABORATORY | | | [...] HENSLEY | [address] | [place], [place] | | | [place] | [facility] | [address] | | | TESTS | | | [...] - MARQUAM | [address] | [place], [place] | | | [facility] [facility] CARE | [facility] | [address] | | | TESTS | | | [...] HENSLEY | [address] | [place], [place] | | | [facility] [facility]ARE | [address] | [address] | | | TESTS | | | [...] - JUSTINAM | [address] | [place], [place] | | | [facility] | [address] | [address] | | | TESTS | | | [...] | + + + + + | [facility] | [address] | [place] [address] | | | PATHOLOGY | [address] [...] + + | [facility] DEPARTMENT OF | [address] | [place] [address] | | | PATHOLOGY | [address] [...] DEPARTMENT OF | [address] | [place] [address] | | | PATHOLOGY | [address] [...] DEPARTMENT OF | [address] | [place] [address] | | | PATHOLOGY | [address] [...] | + + + + + | [facility] | [address] | [place] [address] | | | PATHOLOGY | [address] [...] HOSPITAL DEPARTMENT | [address] | [place] [address] | | | PATHOLOGY | [address] [...] DEPARTMENT OF | [address] | [place] [address] | | | PATHOLOGY | [address] [...] in the assay. | | | RLB ([facility]) [facility] | | | [address] [place] [address] | | + + + + + + + + | Performing | Address | City/State/Zipcode | Phone Number | | Organization | | | | + + + + + | [facility] | [address] | [place] [address] | | | LABORATORY | | | [...] | [facility] - [facility] | [address] | [place], [place] | | | [place] | [address] | [address] | | | TESTS | | | [...] HENSLEY | [address] | [place], [place] | | | [facility] | [address] | [address] | | | TESTS | | | [...] Accession#: | | | | | | [id number] CC and | | | | | [...] | | | | | | from [place] | | | | | | Diagnostic [...] | | | | | | at [facility] and | | | | | | [facility]. | | | | | | [...] HENSLEY | [address] | [place], [place] | | | [place] | [facility] | [address] | | | TESTS | | | [...] DEPARTMENT OF | [address] | [place] [address] | | | PATHOLOGY | [address] [...] | + + + + + | [facility] | [address] | [place] [address] | | | PATHOLOGY | [address] [...] HENSLEY | [address] | [place], [place] | | | [place] | [facility] | [address] | | | TESTS | | | [...] DEPARTMENT OF | [address] | [place] [address] | | | PATHOLOGY | [address] [...] DEPARTMENT OF | [address] | [place] [address] | | | PATHOLOGY | [address] [...] DEPARTMENT OF | [address] | [place] [address] | | | PATHOLOGY | [address] [...] | + + + + + | [facility] | [address] | [place] [address] | | | PATHOLOGY | [address] | | | + + + + + PHOSPHORUS, PLASMA (12/04/2011 12:25 AM PST) + +-------+ + + + | Component | Value | Ref Range | Performed | Pathologist | | | | | At | Signature | + +-------+ + + + | PHOSPHORUS, | 2.4 | 2.4 - 4.7 mg/dL | [facility] | | | PLASMA | | | [...] DEPARTMENT OF | [address] | [place] [address] | | | PATHOLOGY | [address] [...] HOSPITAL DEPARTMENT | [address] | [place] [address] | | | PATHOLOGY | [address] [...] | + + + + + | [facility] | [address] | [place] [address] | | | PATHOLOGY | [address] [...] in the assay. | | | RLB ([facility]) [facility] | | | [address] [place] [address] | | + + + + + + + + | Performing | Address | City/State/Zipcode | Phone Number | | Organization | | | | + + + + + | [facility] | [address] | [place] [address] | | | LABORATORY | | | [...] HENSLEY | [address] | [place], [place] | | | [facility] | [address] | [address] | | | TESTS | | | [...] - MARQU[place] | [address] | [place], [place] | | | [facility] | [address] | [address] | | | TESTS | | | [...] DEPARTMENT OF | [address] | [place] [address] | | | PATHOLOGY | [address] [...] DEPARTMENT OF | [address] | [place] [address] | | | PATHOLOGY | [address] [...] | + + + + + | [facility] | [address] | [place] [address] | | | PATHOLOGY | [address] | | | + + + + + GLUCOSE, CSF (12/03/2011 12:06 PM PST) + +---------+ + + + | Component | Value | Ref Range | Performed | Pathologist | | | | | At | Signature | + +---------+ + + + | GLUCOSE CSF | 126 (H) | 40 - 70 mg/dL | [facility] | | | | | | DEPARTMENT [...] [facility] DEPARTMENT | [address] | [place] [id number] | | | PATHOLOGY | [address] [...] DEPARTMENT | [address] | [place] [address] | | | PATHOLOGY | [address] [...] HENSLEY | [address] | [place], [place] | | | [facility] | [address] | [address] | | | TESTS | | | [...] DEPARTMENT OF | [address] | [place] [address] | | | PATHOLOGY | [address] [...] OF | [address] | [place] [address] | | | PATHOLOGY | [address] [...] | + + + + + | [facility] | [address] | [place] [address] | | | PATHOLOGY | [address] [...] | [address] | [place] [address] | | | PATHOLOGY | [address] [...] DEPARTMENT OF | [address] | [place] [address] | | | PATHOLOGY | [address] [...] | + + + + + | [facility] | [address] | [place] [address] | | | PATHOLOGY | [address] [...] DEPARTMENT OF | [address] | [place] [address] | | | PATHOLOGY | [address] [...] DEPARTMENT OF | [address] | [place] [address] | | | PATHOLOGY | [address] [...] | + + + + + | [facility] | [address] | [place] [address] | | | PATHOLOGY | [address] [...] | + + + + + | [facility] | [address] | [place] [address] | | | PATHOLOGY | [address] [...] 12 | | | | | | -[id number] all | | | | | | ZOFIA | | | | | | [id number] | | | | | | -ADAM, | | | | | | [facility]-[id number] | | | | | | WRD: [...] | + + + + + | [facility] | [address] | [place] [address] | | | PATHOLOGY | [address] [...] [facility] DEPARTMENT | [address] | [place] [address] | | | PATHOLOGY | [address] [...] DEPARTMENT OF | [address] | [place] [address] | | | PATHOLOGY | [address] [...] DEPARTMENT OF | [address] | [place] [address] | | | PATHOLOGY | [address] [...] | + + + + + | [facility] | [address] | [place] [address] | | | PATHOLOGY | [address] [...] DEPARTMENT OF | [address] | [place] [address] | | | PATHOLOGY | [address] [...] DEPARTMENT OF | [address] | [place] [address] | | | PATHOLOGY | [address] [...] DEPARTMENT OF | [address] | [place] [address] | | | PATHOLOGY | [address] [...] | + + + + + | [facility] | [address] [facility] [facility] | [place] [address] | | | PATHOLOGY | [address] [...] | + + + + + | [facility] | [address] | [place] [address] | | | PATHOLOGY | [address] [...] DEPARTMENT OF | [address] | [place] [address] | | | PATHOLOGY | [address] [...] DEPARTMENT OF | [address] | [place] [address] | | | PATHOLOGY | [address] [...] DEPARTMENT OF | [address] | [place] [address] | | | PATHOLOGY | [address] | | | + + + + + URIC ACID, PLASMA (12/01/2011 1:15 AM PST) + +-------+ + + + | Component | Value | Ref Range | Performed | Pathologist | | | | | At | Signature | + +-------+ + + + | URIC ACID, | 3.2 | 2.5 - 6.2 mg/dL | [facility] | | | PLASMA | | | [...] DEPARTMENT OF | [address] | [place] [address] | | | PATHOLOGY | [address] [...] | + + + + + | [facility] | [address] | [place] [address] | | | PATHOLOGY | [address] [...] | + + + + + | [facility] | [address] | [place] [address] | | | PATHOLOGY | [address] | | | + + + + + PHOSPHORUS, PLASMA (12/01/2011 1:15 AM PST) + +-------+ + + + | Component | Value | Ref Range | Performed | Pathologist | | | | | At | Signature | + +-------+ + + + | PHOSPHORUS, | 4.0 | 2.4 - 4.7 mg/dL | [facility] | | | PLASMA | | | [...] DEPARTMENT OF | [address] | [place] [address] | | | PATHOLOGY | [address] [...] DEPARTMENT OF | [address] | [place] [address] | | | PATHOLOGY | [address] [...] | + + + + + | [facility] | [address] | [place] [address] | | | PATHOLOGY | [address] [...] HENSLEY | [address] | [place], [place] | | | [place] | [address] | [address] | | | TESTS | | | [...] DEPARTMENT OF | [address] | [place] [address] | | | PATHOLOGY | [address] [...] DEPARTMENT OF | [address] | [place] [address] | | | PATHOLOGY | [address] [...] | + + + + + | [facility] | [address] | [place] [address] | | | PATHOLOGY | [address] [...] DEPARTMENT OF | [address] | [place] [address] | | | PATHOLOGY | [address] [...] DEPARTMENT OF | [address] | [place] [address] | | | PATHOLOGY | [address] [...] [facility] DEPARTMENT OF | [address] [facility] | [place] [address] | | | PATHOLOGY | [address] [...] [facility] DEPARTMENT OF | [address] [facility] | [place] [address] | | | PATHOLOGY | [address] [...] | + + + + + | [facility] | [address] | [place] [address] | | | PATHOLOGY | [address] [...] DEPARTMENT OF | [address] | [place] [address] | | | PATHOLOGY | [address] [...] OF | [address] | [place] [address] | | | PATHOLOGY | [address] [...] HOSPITAL DEPARTMENT | [address] | [place] [address] | | | PATHOLOGY | [address] [...] | + + + + + | [facility] | [address] | [place] [address] | | | PATHOLOGY | [address] [...] [place] | [address] | [place], [place] | | | [facility] | [address] | [address] | | | TESTS | | | [...] - SHELLIE | [address] | [place], [place] | | | [facility] | [address] | [address] | | | TESTS | | | | + + + + + EXTENDED DIFF (11/29/2011 12:31 AM PST) + +--------+ + + + | Component | Value | Ref Range | Performed | Pathologist | | | | | At | Signature | + +--------+ + + + | METAMYELOCY | 0 | % | [facility] | | | MICHELA % | | | DEPARTMENT | | [...] DEPARTMENT OF | [address] | [place] [address] | | | PATHOLOGY | [address] [...] DEPARTMENT OF | [address] | [place] [address] | | | PATHOLOGY | [address] [...] | + + + + + | [facility] | [address] | [place] [address] | | | PATHOLOGY | [address] [...] DEPARTMENT OF | [address] | [place] [address] | | | PATHOLOGY | [address] [...] DEPARTMENT OF | [address] | [place] [address] | | | PATHOLOGY | [address] [...] | + + + + + | [facility] | [address] | [place] [address] | | | PATHOLOGY | [address] [...] DEPARTMENT OF | [address] | [place] [address] | | | PATHOLOGY | [address] [...] DEPARTMENT OF | [address] | [place] [address] | | | PATHOLOGY | [address] [...] [place] | [address] | [place] | | | [place] | [facility] | [address] | | | TESTS | | | [...] HENSLEY | [address] | [place], [place] | | | [facility] | [address] | [address] | | | TESTS | | | [...] [place] | [address] | [place], [place] | | | [facility] [facility] | [address] | [address] | | | TESTS | | | [...] [place] | [address] | [place], [place] | | | [facility] | [address] | [address] | | | TESTS | | | [...] HENSLEY | [address] | [place], [place] | | | [facility] | [address] | [address] | | | TESTS | | | [...] [facility] DEPARTMENT | [address] | [place] [address] | | | PATHOLOGY | [address] [...] + + + + | PRODUCT | [id number] | | [facility] | | | UNIT [...] + + + + | BLOOD | [id number] | | [facility] | | | PRODUCT [...] | + + + + + | [facility] | [address] | [place] [address] | | | PATHOLOGY | [address] [...] + + + + | PRODUCT | [id number] | | [facility] | | | UNIT [...] + + + + | BLOOD | [address] | | [facility] | | | PRODUCT [...] HOSPITAL DEPARTMENT | [address] | [place] [address] | | | PATHOLOGY | [address] [...] HENSLEY | [address] | [place], [place] | | | [place] | [address] | [address] | | | TESTS | | | [...] DEPARTMENT OF | [address] | [place] [address] | | | PATHOLOGY | [address] [...] DEPARTMENT OF | [address] | [place] [address] | | | PATHOLOGY | [address] [...] DEPARTMENT OF | [address] | [place] [address] | | | PATHOLOGY | [address] [...] DEPARTMENT OF | [address] | [place] [address] | | | PATHOLOGY | [address] [...] [facility] DEPARTMENT OF | [address] [facility] | [place] [address] | | | PATHOLOGY | [address] [...] DEPARTMENT OF | [address] | [place] [address] | | | PATHOLOGY | [address] [...] DEPARTMENT OF | [address] | [place] [address] | | | PATHOLOGY | [address] [...] [facility] DEPARTMENT | [address] | [place] [address] | | | PATHOLOGY | [address] [...] | + + + + + | [facility] | [address] | [place] [address] | | | PATHOLOGY | [address] [...] HENSLEY | [address] | [place], [place] | | | [place] | [address] | [address] | | | TESTS | | | [...] [facility] DEPARTMENT OF | [address] | [place] [address] | | | PATHOLOGY | [address] [...] | + + + + + | [facility] | [address] | [place] [address] | | | PATHOLOGY | [address] [...] [place] | [address] | [place], [place] | | | [facility] | [address] | [address] | | | TESTS | | | [...] - [place] | [address] | [place], [place] | | | [facility] | [address] | [address] | | | TESTS | | | [...] H[place] | [address] | [place], [place] | | | [facility] | [address] | [address] | | | TESTS | | | [...] DEPARTMENT OF | [address] | [place] [address] | | | PATHOLOGY | [address] [...] DEPARTMENT OF | [address] | [place] [address] | | | PATHOLOGY | [address] [...] | + + + + + | [facility] | [address] | [place] [address] | | | PATHOLOGY | [address] [...] DEPARTMENT | [address] | [place] [address] | | | PATHOLOGY | [address] [...] | + + + + + | [facility] | [address] | [place] [address] | | | PATHOLOGY | [address] [...] + + | [facility] DEPARTMENT OF | [address] | [place] [address] | | | PATHOLOGY | [address] [...] DEPARTMENT OF | [address] | [place] [address] | | | PATHOLOGY | [address] [...] JUSTINAM | [address] | [place], [place] | | | [facility] [place] | [facility] | [address] | | | TESTS | | | [...] SHELLIE | [address] | [place], [place] | | | [facility] | [address] | [address] | | | TESTS | | | [...] HENSLEY | [address] | [place], [place] | | | AMBAR JASMINE | [facility] | [address] | | | TESTS | | | [...] + + + | [facility] | [address] | [place] [address] | | | LAB-MICRO | | | [...] | + + + + + | [facility] | [address] | [place] [address] | | | LAB-MICRO | | | [...] HENSLEY | [address] | [place], [place] | | | [facility] | [address] | [address] | | | TESTS | | | [...] DEPARTMENT OF | [address] | [place] [address] | | | PATHOLOGY | [address] | | | + + + + + BILIRUBIN DIRECT (11/26/2011 12:16 AM PST) + +-------+ + + + | Component | Value | Ref Range | Performed | Pathologist | | | | | At | Signature | + +-------+ + + + | BILIRUBIN | 0.1 | <0.4 mg/dL | [facility] | | | DIRECT | | | [...] | + + + + + | [facility] H[facility] | [address] | [place] [address] | | | PATHOLOGY | [address] [...] DEPARTMENT OF | [address] | [place] [address] | | | PATHOLOGY | [address] [...] DEPARTMENT OF | [address] | [place] [address] | | | PATHOLOGY | [address] [...] | + + + + + | [facility] | [address] | [place] [address] | | | PATHOLOGY | [address] [...] | + + + + + | [facility] | [address] | [place] [address] | | | PATHOLOGY | [address] [...] | + + + + + | [facility] DEPARTMENT OF | [address] | [place] [address] | | | PATHOLOGY | [address] [...] HOSPITAL DEPARTMENT | [address] | [place] [address] | | | PATHOLOGY | [address] [...] HENSLEY | [address] | [place], [place] | | | [facility] | [address] | [address] | | | TESTS | | | [...] MARQUAM | [address] | [place], [place] | | | [facility] | [address] | [address] | | | TESTS | | | [...] JUSTINAM | [address] | [place], [place] | | | [facility] | [address] | [address] | | | TESTS | | | [...] HENSLEY | [address] | [place], [place] | | | [facility] | [facility] | [address] | | | TESTS | | | [...] DEPARTMENT OF | [address] | [place] [address] | | | PATHOLOGY | [address] [...] HOSPITAL DEPARTMENT | [address] | [place] [address] | | | PATHOLOGY | [address] [...] | + + + + + | [facility] | [address] | [place] [address] | | | PATHOLOGY | [address] [...] DEPARTMENT OF | [address] | [place] [address] | | | PATHOLOGY | [address] [...] HOSPITAL DEPARTMENT | [address] | [place] [address] | | | PATHOLOGY | [address] [...] HOSPITAL DEPARTMENT | [address] | [place] [address] | | | PATHOLOGY | [address] [...] HENSLEY | [address] | [place], [place] | | | [facility] [place] | [address] | [address] | | | TESTS | | | [...] MARQUAM | [address] | [place], [place] | | | [facility] | [address] | [address] | | | TESTS | | | [...] JUSTINAM | [address] | [place], [place] | | | [facility] [facility] [place] | [facility] | [address] | | | TESTS | | | [...] | DEIRDRE HENSLEY | [address] | [place], [place] | | | [facility] | [address] | [address] | | | TESTS | | | [...] | + + + + + | [facility] DEPARTMENT OF | [address] | [place] [address] | | | PATHOLOGY | [address] [...] [facility] DEPARTMENT | [address] | [place] [address] | | | PATHOLOGY | [address] [...] [facility] DEPARTMENT | [address] [facility] [address] | [place] [address] | | | PATHOLOGY | [address] [...] DEPARTMENT OF | [address] | [place] [address] | | | PATHOLOGY | [address] [...] | + + + + + | [facility] | [address] [facility] [address] | [place] [address] | | | PATHOLOGY | [address] [...] DEPARTMENT | [address] | [place] [address] | | | PATHOLOGY | [address] [...] HENSLEY | [address] | [place], [place] | | | [facility] | [address] | [address] | | | TESTS | | | [...] intrathecalchemotherapy. | | | | | | EXPERIMENTAL TECHNICIAN: | | | | | | Carmen [...] | | | | | | Luis vita 11/23/2011 | | | | | [...] [facility] DEPARTMENT | [address] | [place] [address] | | | PATHOLOGY | [address] [...] | + + + + + | [facility] | [address] | [place] [address] | | | PATHOLOGY | [address] [...] DEPARTMENT OF | [address] | [place] [address] | | | PATHOLOGY | [address] [...] DEPARTMENT OF | [address] | [place] [address] | | | PATHOLOGY | [address] [...] HOSPITAL DEPARTMENT | [address] | [place] [address] | | | PATHOLOGY | [address] [...] HENSLEY | [address] | [place], [place] | | | [facility] | [address] | [address] | | | TESTS | | | [...] MARQUAM | [address] | [place], [place] | | | [facility] | [facility] | [address] | | | TESTS | | | [...] [facility] DEPARTMENT OF | [address] [facility] [address] | [place] [address] | | | PATHOLOGY | [address] [...] DEPARTMENT OF | [address] | [place] [address] | | | PATHOLOGY | [address] [...] | + + + + + | [facility] | [address] | [place] [address] | | | PATHOLOGY | [address] [...] DEPARTMENT OF | [address] | [place] [address] | | | PATHOLOGY | [address] [...] DEPARTMENT OF | [address] | [place] [address] | | | PATHOLOGY | [address] [...] DEPARTMENT OF | [address] | [place] [address] | | | PATHOLOGY | [address] [...] DEPARTMENT OF | [address] | [place] [address] | | | PATHOLOGY | [address] [...] | + + + + + | [facility] | [address] | [place] [address] | | | PATHOLOGY | [address] [...] DEPARTMENT OF | [address] | [place] [address] | | | PATHOLOGY | [address] [...] DEPARTMENT OF | [address] | [place] [address] | | | PATHOLOGY | [address] [...] HOSPITAL DEPARTMENT | [address] | [place] [address] | | | PATHOLOGY | [address] [...] 12 | | | | | | -[id number] all | | | | | | ZOFIA | | | | | | [id number] [id number] | | | | | | IARZ, MATTHEW [facility]-[id number] | | | | | | WRD: [...] | + + + + + | [facility] | [address] | [place] [address] | | | PATHOLOGY | [address] [...] SHELLIE | [address] | [place], [place] | | | [place] [facility] [place] | [facility] | [address] | | | TESTS | | | [...] HENSLEY | [address] | [place], [place] | | | [facility] | [address] | [address] | | | TESTS | | | [...] SHELLIE | [address] | [place], [place] | | | [place] [facility] [place] | [facility] | [address] | | | TESTS | | | [...] SHELLIE | [address] | [place], [place] | | | [facility] | [facility] | [address] | | | TESTS | | | [...] DEPARTMENT OF | [address] | [place] [address] | | | PATHOLOGY | [address] | | | + + + + + URIC ACID, PLASMA (11/22/2011 12:05 AM PST) + +-------+ + + + | Component | Value | Ref Range | Performed | Pathologist | | | | | At | Signature | + +-------+ + + + | URIC ACID, | 3.5 | 2.5 - 6.2 mg/dL | [facility] | | | PLASMA | | | [...] DEPARTMENT OF | [address] | [place] [address] | | | PATHOLOGY | [address] [...] | + + + + + | [facility] | [address] | [place] [address] | | | PATHOLOGY | [address] [...] DEPARTMENT OF | [address] | [place] [address] | | | PATHOLOGY | [address] [...] [facility] DEPARTMENT | [address] | [place] [address] | | | PATHOLOGY | [address] [...] DEPARTMENT OF | [address] | [place] [address] | | | PATHOLOGY | [address] [...] | + + + + + | [facility] | [address] | [place] [address] | | | PATHOLOGY | [address] [...] MARQUAM | [address] | [place], [place] | | | [facility] | [facility] | [address] | | | TESTS | | | [...] MARQUAM | [address] | [place], [place] | | | [place] [place] | [address] | [address] | | | TESTS | | | [...] HENSLEY | [address] | [place], [place] | | | [facility] | [address] | [address] | | | TESTS | | | [...] MARQUAM | [address] | [place], [place] | | | [facility] | [address] | [address] | | | TESTS | | | [...] DEPARTMENT OF | [address] | [place] [address] | | | PATHOLOGY | [address] [...] DEPARTMENT OF | [address] | [place] [address] | | | PATHOLOGY | [address] [...] | + + + + + | [facility] | [address] | [place] [address] | | | PATHOLOGY | [address] [...] DEPARTMENT OF | [address] | [place] [address] | | | PATHOLOGY | [address] [...] DEPARTMENT OF | [address] | [place] [address] | | | PATHOLOGY | [address] [...] | + + + + + | [facility] | [address] | [place] [address] | | | PATHOLOGY | [address] [...] DEPARTMENT OF | [address] | [place] [address] | | | PATHOLOGY | [address] [...] | + + + + + | [facility] | [address] | [place] [address] | | | PATHOLOGY | [address] [...] [facility] | [address] | [place], [place] | | | [facility] | [facility] | [address] | | | TESTS | | | [...] MARQUAM | [address] | [place], [place] | | | [place] [facility] [place] | [address] | [address] | | | TESTS | | | [...] HENSLEY | [address] | [place], [place] | | | [facility] | [address] | [address] | | | TESTS | | | [...] MARQUAM | [address] | [place], [place] | | | [facility] | [address] | [address] | | | TESTS | | | [...] DEPARTMENT OF | [address] | [place] [address] | | | PATHOLOGY | [address] [...] | + + + + + | [facility] | [address] | [place] [address] | | | PATHOLOGY | [address] [...] DEPARTMENT OF | [address] | [place] [address] | | | PATHOLOGY | [address] [...] DEPARTMENT OF | [address] | [place] [address] | | | PATHOLOGY | [address] [...] OF | [address] | [place] [address] | | | PATHOLOGY | [address] | | | + + + + + MAGNESIUM, PLASMA (11/20/2011 12:10 AM PST) + +-------+ + + + | Component | Value | Ref Range | Performed | Pathologist | | | | | At | Signature | + +-------+ + + + | MAGNESIUM,P | 2.0 | 1.8 - 2.5 mg/dL | [facility] | | | LASMA | | | [...] | + + + + + | [facility] | [address] [facility] | [place] [address] | | | PATHOLOGY | [address] [...] HOSPITAL DEPARTMENT | [address] | [place] [address] | | | PATHOLOGY | [address] [...] SHELLIE | [address] | [place], [place] | | | [place] [facility] [place] | [address] | [address] | | | TESTS | | | [...] JUSTINAM | [address] | [place], [place] | | | [place] [place] | [facility] | [address] | | | TESTS | | | [...] MELVIQUAM | [address] | [place], [place] | | | [facility] | [address] | [address] | | | TESTS | | | [...] HENSLEY | [address] | [place], [place] | | | [place] [place] | [facility] | [address] | | | TESTS | | | [...] DEPARTMENT OF | [address] | [place] [address] | | | PATHOLOGY | [address] [...] DEPARTMENT OF | [address] | [place] [address] | | | PATHOLOGY | [...] | + + + + + | [facility] | [address] | [place] [address] | | | PATHOLOGY | [address] [...] DEPARTMENT OF | [address] | [place] [address] | | | PATHOLOGY | [address] [...] DEPARTMENT OF | [address] | [place] [address] | | | PATHOLOGY | [address] [...] | + + + + + | [facility] | [address] | [place] [address] | | | PATHOLOGY | [address] [...] DEPARTMENT OF | [address] | [place] [address] | | | PATHOLOGY | [address] [...] DEPARTMENT OF | [address] | [place] [address] | | | PATHOLOGY | [address] [...] HOSPITAL DEPARTMENT | [address] | [place] [address] | | | PATHOLOGY | [address] [...] HENSLEY | [address] | [place], [place] | | | [facility] | [address] | [address] | | | TESTS | | | [...] | + + + + + | [facility] | [address] | [place] [address] | | | PATHOLOGY | [address] [...] DEPARTMENT OF | [address] | [place] [address] | | | PATHOLOGY | [address] [...] | + + + + + | [facility] | [address] | [place] [address] | | | PATHOLOGY | [address] [...] DEPARTMENT OF | [address] | [place] [address] | | | PATHOLOGY | [address] [...] DEPARTMENT OF | [address] | [place] [address] | | | PATHOLOGY | [address] [...] HOSPITAL DEPARTMENT | [address] | [place] [address] | | | PATHOLOGY | [address] [...] HENSLEY | [address] | [place], [place] | | | [facility] | [address] | [address] | | | TESTS | | | [...] HENSLEY | [address] | [place], [place] | | | [place] [place] | [address] | [address] | | | TESTS | | | [...] MARQUAM | [address] | [place], [place] | | | [facility] | [address] | [address] | | | TESTS | | | [...] DEPARTMENT OF | [address] | [place] [address] | | | PATHOLOGY | [address] [...] | + + + + + | [facility] | [address] | [place] [address] | | | PATHOLOGY | [address] [...] DEPARTMENT OF | [address] | [place] [address] | | | PATHOLOGY | [address] [...] [facility] DEPARTMENT | [address] | [place] [address] | | | PATHOLOGY | [address] [...] | + + + + + | [facility] | [address] | [place] [address] | | | PATHOLOGY | [address] [...] DEPARTMENT OF | [address] | [place] [address] | | | PATHOLOGY | [address] [...] | + + + + + | [facility] | [address] | [place] [address] | | | PATHOLOGY | [address] [...] | + + + + + | [facility] | [address] | [place] [address] | | | PATHOLOGY | [address] [...] DEPARTMENT OF | [address] | [place] [address] | | | PATHOLOGY | [address] [...] DEPARTMENT OF | [address] | [place] [address] | | | PATHOLOGY | [address] [...] | + + + + + | [facility] | [address] | [place] [address] | | | PATHOLOGY | [address] [...] | | | | | | [id number] [id number] CFM 0 | | | | | | C ZOFIA | | | | | | [id number] | | | | | | -MARICEL WASHINGTON | | | | | | [facility]-[id number] WRD: | | | | | | [...] HOSPITAL DEPARTMENT | [address] | [place] [address] | | | PATHOLOGY | [address] [...] + + + | DEIRDRE H[facility] | [address] | [place], [place] | | | [facility] | [address] | [address] | | | TESTS | | | [...] DEPARTMENT OF | [address] | [place] [address] | | | PATHOLOGY | [address] [...] DEPARTMENT OF | [address] | [place] [address] | | | PATHOLOGY | [address] [...] [facility] DEPARTMENT OF | [address] [facility] | [place] [address] | | | PATHOLOGY | [address] [...] | + + + + + | [facility] | [address] | [place] [address] | | | PATHOLOGY | [address] [...] MARQUAM | [address] | [place], [place] | | | [place] | [address] | [address] | | | TESTS | | | [...] MARQUAM | [address] | [place], [place] | | | [facility] | [address] | [address] | | | TESTS | | | [...] | + + + + + | [facility] | [address] | [place] [address] | | | PATHOLOGY | [address] [...] DEPARTMENT OF | [address] | [place] [address] | | | PATHOLOGY | [address] [...] HOSPITAL DEPARTMENT | [address] | [place] [address] | | | PATHOLOGY | [address] [...] | + + + + + | [facility] | [address] | [place] [address] | | | PATHOLOGY | [address] [...] MARQUAM | [address] | [place], [place] | | | [facility] | [address] | [address] | | | TESTS | | | [...] DEPARTMENT OF | [address] | [place] [address] | | | PATHOLOGY | [address] [...] | + + + + + | [facility] | [address] | [place] [address] | | | PATHOLOGY | [address] [...] [facility] DEPARTMENT OF | [address] [facility] | [place] [address] | | | PATHOLOGY | [address] [...] DEPARTMENT OF | [address] | [place] [address] | | | PATHOLOGY | [address] [...] [facility] DEPARTMENT | [address] | [place] [address] | | | PATHOLOGY | [address] [...] DEPARTMENT OF | [address] | [place] [address] | | | PATHOLOGY | [address] [...] DEPARTMENT OF | [address] | [place] [address] | | | PATHOLOGY | [address] [...] | + + + + + | [facility] | [address] [facility] [facility] | [place] [address] | | | PATHOLOGY | [address] [...] + + | [facility] DEPARTMENT OF | [address] | [place] [address] | | | PATHOLOGY | [address] [...] DEPARTMENT OF | [address] | [place] [address] | | | PATHOLOGY | [address] [...] | + + + + + | [facility] | [address] | [place] [address] | | | PATHOLOGY | [address] [...] DEPARTMENT OF | [address] | [place] [address] | | | PATHOLOGY | [address] [...] SHELLIE | [address] | [place], [place] | | | [facility] | [address] | [address] | | | TESTS | | | [...] DEPARTMENT OF | [address] | [place] [address] | | | PATHOLOGY | [address] [...] | + + + + + | [facility] | [address] | [place] [address] | | | PATHOLOGY | [address] [...] | + + + + + | [facility] | [address] | [place] [address] | | | PATHOLOGY | [address] [...] DEPARTMENT OF | [address] | [place] [address] | | | PATHOLOGY | [address] [...] DEPARTMENT OF | [address] | [place] [address] | | | PATHOLOGY | [address] [...] | + + + + + | [facility] | [address] | [place] [address] | | | PATHOLOGY | [address] [...] MARQUAM | [address] | [place], [place] | | | [facility] | [address] | [address] | | | TESTS | | | [...] - SHELLIE | [address] | [place], [place] | | | [facility] | [facility] | [address] | | | TESTS | | | [...] | + + + + + | [facility] | [address] | [place] [address] | | | PATHOLOGY | [address] [...] DEPARTMENT OF | [address] | [place] [address] | | | PATHOLOGY | [address] [...] [facility] DEPARTMENT | [address] | [place] [address] | | | PATHOLOGY | [address] [...] | + + + + + | [facility] | [address] | [place] [address] | | | PATHOLOGY | [address] [...] MARQUAM | [address] | [place], [place] | | | [facility] | [address] | [address] | | | TESTS | | | [...] HOSPITAL DEPARTMENT | [address] | [place] [address] | | | PATHOLOGY | [address] [...] DEPARTMENT OF | [address] | [place] [address] | | | PATHOLOGY | [address] [...] | + + + + + | [facility] | [address] | [place] [address] | | | PATHOLOGY | [address] [...] DEPARTMENT OF | [address] | [place] [address] | | | PATHOLOGY | [address] [...] DEPARTMENT OF | [address] | [place] [address] | | | PATHOLOGY | [address] [...] | + + + + + | [facility] | [address] | [place] [address] | | | PATHOLOGY | [address] [...] DEPARTMENT OF | [address] | [place] [address] | | | PATHOLOGY | [address] [...] | + + + + + | [facility] | [address] | [place] [address] | | | PATHOLOGY | [address] [...] HOSPITAL DEPARTMENT | [address] | [place] [address] | | | PATHOLOGY | [address] [...] [facility] DEPARTMENT | [address] | [place] [address] | | | PATHOLOGY | [address] [...] [facility] DEPARTMENT | [address] | [place] [address] | | | PATHOLOGY | [address] [...] | + + + + + | [facility] | [address] | [place] [address] | | | PATHOLOGY | [address] [...] DEPARTMENT OF | [address] | [place] [address] | | | PATHOLOGY | [address] [...] DEPARTMENT OF | [address] | [place] [address] | | | PATHOLOGY | [address] [...] | + + + + + | [facility] | [address] | [place] [address] | | | PATHOLOGY | [address] [...] H[place] | [address] | [place], [place] | | | [facility] | [address] | [address] | | | TESTS | | | [...] + + | [facility] DEPARTMENT OF | [address] | [place] [address] | | | PATHOLOGY | [address] [...] DEPARTMENT OF | [address] | [place] [address] | | | PATHOLOGY | [address] [...] | + + + + + | [facility] | [address] | [place] [address] | | | PATHOLOGY | [address] [...] DEPARTMENT OF | [address] | [place] [address] | | | PATHOLOGY | [address] [...] | + + + + + | [facility] | [address] | [place] [address] | | | PATHOLOGY | [address] [...] [facility] | [address] | [place], [place] | | | [facility] | [address] | [address] | | | TESTS | | | [...] [place] | [address] | [place], [place] | | | [place] [facility] [place] | [facility] | [address] | | | TESTS | | | [...] DEPARTMENT OF | [address] | [place] [address] | | | PATHOLOGY | [address] [...] DEPARTMENT OF | [address] | [place] [address] | | | PATHOLOGY | [address] [...] | + + + + + | [facility] | [address] | [place] [address] | | | PATHOLOGY | [address] [...] DEPARTMENT OF | [address] | [place] [address] | | | PATHOLOGY | [address] [...] [facility] | [address] | [place], [place] | | | [facility] | [address] | [address] | | | TESTS | | | [...] | + + + + + | [facility] | [address] | [place] [address] | | | PATHOLOGY | [address] [...] | + + + + + | [facility] | [address] | [place] [address] | | | PATHOLOGY | [address] [...] DEPARTMENT OF | [address] | [place] [address] | | | PATHOLOGY | [address] [...] DEPARTMENT OF | [address] | [place] [address] | | | PATHOLOGY | [address] [...] [place] DEPARTMENT | [address] | [place] [address] | | | PATHOLOGY | [address] [...] | + + + + + | [facility] | [address] | [place] [address] | | | PATHOLOGY | [address] [...] [facility] DEPARTMENT OF | [address] | [place] [address] | | | PATHOLOGY | [address] [...] DEPARTMENT OF | [address] | [place] [address] | | | PATHOLOGY | [address] [...] | + + + + + | [facility] | [address] | [place] [address] | | | PATHOLOGY | [address] [...] DEPARTMENT OF | [address] | [place] [address] | | | PATHOLOGY | [address] [...] HOSPITAL DEPARTMENT | [address] | [place] [address] | | | PATHOLOGY | [address] [...] DEPARTMENT OF | [address] | [place] [address] | | | PATHOLOGY | [address] [...] [place] | [address] | [place], [place] | | | [place] | [facility] | [address] | | | TESTS | | | [...] [facility] | [address] | [place], [place] | | | [place] [facility] | [facility] | [address] | | | TESTS | | | [...] DEPARTMENT OF | [address] | [place] [address] | | | PATHOLOGY | [address] [...] DEPARTMENT OF | [address] | [place] [address] | | | PATHOLOGY | [address] [...] DEPARTMENT OF | [address] | [place] [address] | | | PATHOLOGY | [address] [...] DEPARTMENT | [address] | [place] [address] | | | PATHOLOGY | [address] [...] [place] | [address] | [place], [place] | | | [facility] | [address] | [address] | | | TESTS | | | [...] DEPARTMENT OF | [address] | [place] [address] | | | PATHOLOGY | [address] [...] DEPARTMENT OF | [address] | [place] [address] | | | PATHOLOGY | [address] [...] | + + + + + | [facility] | [address] | [place] [address] | | | PATHOLOGY | [address] [...] | + + + + + | [facility] | [address] [address] | [place] [address] | | | PATHOLOGY | [address] | | | + + + + + X-RAY PORTABLE CHEST 1 VIEW (11/14/2011 1:35 PM PST) + + + + + + | Component | Value | Ref Range | Performed | Pathologist | | | | | At | Signature | + + + + + + | X-RAY | STUDY:ME CHEST 1 VIEW | | | | [...] [facility] | [address] | [place], [place] | | | [facility] OF CARE | [address] | [address] | | | TESTS | | | [...] [facility] DEPARTMENT | [address] | [place] [address] | | | PATHOLOGY | [address] [...] | + + + + + | [facility] | [address] | [place] [address] | | | PATHOLOGY | [address] [...] DEPARTMENT OF | [address] | [place] [address] | | | PATHOLOGY | [address] [...] HOSPITAL DEPARTMENT | [address] | [place] [address] | | | PATHOLOGY | [address] [...] SHELLIE | [address] | [place], [place] | | | [facility] OF [facility] SA[facility] | [address] | [address] | | | TESTS | | | [...] | + + + + + | [facility] | [address] | [place] [address] | | | PATHOLOGY | [address] [...] | + + + + + | [facility] | [address] | [place] [address] | | | PATHOLOGY | [address] [...] DEPARTMENT OF | [address] | [place] [address] | | | PATHOLOGY | [address] [...] DEPARTMENT OF | [address] | [place] [address] | | | PATHOLOGY | [address] [...] DEPARTMENT OF | [address] | [place] [address] | | | PATHOLOGY | [address] [...] | + + + + + | [facility] | [address] | [place] [address] | | | PATHOLOGY | [address] [...] RLB ([facility] [facility]) | | | [facility] [address] | | | [place] [address] | | + + + + + + + + | Performing | Address | City/State/Zipcode | Phone Number | | Organization | | | | + + + + + | [facility] | [address] | [place] [address] | | | LABORATORY | | | [...] | + + + + + | [facility] | [address] | [place] [address] | | | PATHOLOGY | [address] [...] DEPARTMENT OF | [address] | [place] [address] | | | PATHOLOGY | [address] [...] HOSPITAL DEPARTMENT | [address] | [place] [address] | | | PATHOLOGY | [address] [...] [facility] | [address] | [place], [place] | | | N[place] OF [place] | [facility] | [address] | | | TESTS | | | [...] [facility] | [address] | [place], [place] | | | [facility] CARE | [address] | [address] | | | TESTS | | | [...] MARQU[facility] | [address] | [place], [place] | | | [facility] | [address] | [address] | | | TESTS | | | [...] H[facility] | [address] | [place], [place] | | | [facility] SAULT | [address] | [address] | | | TESTS | | | [...] | + + + + + | [facility] | [address] | [place] [address] | | | PATHOLOGY | [address] [...] DEPARTMENT OF | [address] | [place] [address] | | | PATHOLOGY | [address] [...] DEPARTMENT OF | [address] | [place] [address] | | | PATHOLOGY | [address] [...] | + + + + + | [facility] | [address] | [place] [address] | | | PATHOLOGY | [address] [...] HOSPITAL DEPARTMENT | [address] | [place] [address] | | | PATHOLOGY | [address] [...] JUSTINAM | [address] | [place], [place] | | | [place] OF [place] | [address] | [address] | | | TESTS | | | [...] [facility] | [address] | [place], [place] | | | [place] OF [place] | [facility] | [address] | | | TESTS | | | [...] MAR[facility] | [address] | [place], [place] | | | [facility] OF CARE | [address] | [address] | | | TESTS | | | [...] HOSPITAL DEPARTMENT | [address] | [place] [address] | | | PATHOLOGY | [address] [...] HENSLEY | [address] | [place], [place] | | | [place] OF [place] | [facility] | [address] | | | TESTS | | | [...] | | | DAILY, First dose on [facility] 11/26/11 | | AM PST | | [...]
--- OUTSIDE RECORDS SUMMARY | ~2020-06-17 | XMS | Clinical Summary ---
Demographics + + + | Address | [address] | | | [place] [address] | + + + | Home Phone [...] Author + + + | Author | [facility] | + + + | Organization | [facility] | + + + | Address | Unknown | + + + | Phone | Unavailable | + + + Support + + + + + | Name | Relationship | Address | Phone | + + + + + | Yue Fischer | ECON | [address] | | | | | [place] | | | | | [address] | | + + + + + | Greta Mccauleyu | ECON | Unknown | | + + + + + Care Team Providers + +------+ + | Care Pocket Secretary Assembler Name | Role | Phone | + +------+ + | Becky Jennings | PCP | | + +------+ + Source Comments [facility] and [facility] Allergies No Known Allergies Medications [...] PLUS | | 12-Pre | 6 | [address] | id | | | OPEN | | sent | | [place], [place] | | | | CARD | | | | [id number] | | + +--------+ +--------+ + +--------+ | [facility] | | [phone] | 11/07/18 | | [...] | 1961 | [phone] | [place] [address] | | | shonda | | | 8 (Home) | | + +--------+ +--------+ + + | Frida Christian | Agency | Self | [birth year]/ | | [address] | | | | | 1961 | [phone] | [place] [address] | | | | | | 8 [...]
--- OUTSIDE RECORDS SUMMARY | ~2020-06-17 | XMS | Encounter Summary ---
Demographics + + + | Address | [address] | | | [place] [address] | + + + | Home Phone | | + + + | Preferred Language | Unknown | + + + | Marital Status | | + + + | Mormonism Affiliation | Unknown | + + + | Race | or | + + + | Ethnic Group | Not or | + + + Author + + + | Author | [facility] | | | and [place] | + + + | Organization | [facility] | | | and [place] [...] [place] | | | | | [address] | | + + + + + | Greta Broncheau | ECON | [place] | | | | | [address] | | + + + + + Care Team Providers + +------+ + | Care Net Programmer Analyst Name | Role | Phone | + +------+ + | Becky Jennings | PCP | | + +------+ + Reason for Visit + +--------+ + | Reason | Onset | Comments | | | Date | | + +--------+ + | Colonoscopy | 12/26/ | | | | 2013 | | + +--------+ + Encounter Details +--------+ + + + + | Date | Type | Department | Care Team | Description | +--------+ + + + + | 12/26/ | Telephone | [facility] | Vance Orta MD | Colonoscopy | | 2013 | | GASTROENTEROLOGY | [address] | | | | | [address] | [address] | | | | | [address] [place], [place] | [address] | | | | | [address] | | | | | | [phone] | | | +--------+ + + + [...] Telephone Encounter - Reba Au RN - 12/26/2013 3:48 PM PSTSpoke with patients sister who states 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 She needs to cancel colonoscopy sched uled for this Wednesday with propofol sedation. States she has upper respiratory infection. R emoved from schedule. elephone Encounter - Qasim Moe - 12/26/2013 2:41 PM PSTPatient called to [facility], states she has a cold. Please call patient at [phone]. documented in this en counter Plan of Treatment Not on filedocumented as of this encounter Visit Diagnoses Not on filedocumented in this encounter"
--- OUTSIDE RECORDS SUMMARY | ~2020-06-17 | XMS | Encounter Summary ---
Demographics + + + | Address | [address] | | | [place] [address] | + + + | Home Phone | | + + + | Preferred Language | Unknown | + + + | Marital Status | | + + + | Muslim Affiliation | Unknown | + + + | Race | or | + + + | Ethnic Group | Not or | + + + Author + + + | Author | [facility] | | | and [place] | + + + | Organization | [facility] | | | and [place] [...] [place] | | | | | [address] | | + + + + + | Greta Broncheau | ECON | [place] | | | | | [address] | | + + + + + Care Team Providers + +------+ + | Care Functional Architect Name | Role | Phone | + [...] Cardiomyopat | ELLEN Albarran | [address] | | | | | hy (HCC) | [address] | [place], | | | | | Procedures | [place] | [place] | | | | | [place] Cardiac | [place], | [address] | | | | | MUGA Scan | [place] | Phone: | | | | | | [address] | [phone] | | | | | | Phone: | Fax: | | | | | | [phone] | [phone] | | | | | | Fax: | | | | | | | [phone] | | +--------+--------+ + + + + Reason for Visit + + + | Reason | Comments | + + + | Follow-up | | + + + | Cardiomyopathy | | + + + Encounter Details +--------+---------+ + + + | Date | Type | Department | Care Team | Description | +--------+---------+ + + + | 02/15/ | Office | [facility] | Lm, | Cardiomyopathy (HCC) | | 2012 | Visit | CARDIOLOGY [address] | [address] | (Primary Dx); Chest | | | | [place], | [place], | pain; Nonischemic/ | | | | [place] [address] | [place] [address] | chemotherapy | | | | [phone] | [phone] | induced | | | | | [...] appointment documented in this encounter Progress Notes Avis Ma ARNP - 02/15/2013 1:36 PM PDTFormatting of this [...] runny nose. She denies any leg swelling. Katirna ent denies having problems laying on bed flat to sleep and waking up with shortness of breat h or gasping for air. 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 Cholecalciferol (VITAMIN D3) 91515 UNITS CAPS Take 50,000 Units by mouth [...] adequa te echocardiography images. In consultation with gusset ripper reading the exam, LVEF is est imated [...] class I of the [place] [employer] functional class. T here is [...] in 4-6 weeks or sooner if necessary I, ELLEN Rivera, saw this patient under the direct supervision of Endy Polo MD Portions of this report were transcribed using voice recognition software. Every effort wa s made to ensure accuracy; however, inadvertent computerized health care administrator errors may be pre sent. documented in this encounter Plan of Treatment Not on filedocumented as of this encounter Results [place] Cardiac MUGA Scan (06/13/2013 12:25 PM PDT) + + | Specimen | + + | | + + + + + | Narrative | Performed At | + + + | [facility] | CORAL | | [address] [place] | [place] | | [ rep [address]] [ rep [facility] | | st zip] Signed | - IMAGING | | | | | Patient Name: ZOFIA YOUNG Physician: | | | FREDIS : 1960 Age: 52 Sex: F Unit #: [id number] | | | Exam Date: 06/13/13 Location: [facility] | | | Report #: [id number] Page: | | | %(RAD)RES..mtdd.print.filter("pg") of %(RAD) | | | RES..mtdd.print.filter("tpg") | | | | | | Accession Number: [id number] | | | REST EQUILIBRIUM VENTRICULOGRAPHY/MARKER SCAN: [...] Transcribed | | | Date/Time: 06/13/2013 12:52 Landcare Facilitator: | | | <<Signature on File>> | | | Endy | | | MD Melani [facility]06/14/13 0643 <Electronically signed by | | | Endy Polo MD, [facility], [facility], [facility], [facility]> Xochiltwong | | | MD Melani [facility] 06/13/13 1225 Landcare Facilitator: Nabil | | | [id number]/13/13 [address] | | + + + + + + + + | Performing | Address | City/State/Zipcode | Phone Number | | Organization | | | | + + + + + | [facility] | [address] | [place] | [phone] | | [facility] | | [address] | | | - IMAGING | | | | + + + + + documented in this encounter Visit Diagnoses + + | Diagnosis | + + | Nonischemic/ chemotherapy induced cardiomyopathy - Primary Other primary | | cardiomyopathies | + + | Chest pain Chest pain, unspecified | + + documented in this encounter
--- OUTSIDE RECORDS SUMMARY | ~2020-06-17 | XMS | Encounter Summary ---
Demographics + + + | Address | [address] | | | [place] [address] | + + + | Home Phone | | + + + | Preferred Language | Unknown | + + + | Marital Status | | + + + | Mu-Ism Affiliation | Unknown | + + + | Race | or | + + + | Ethnic Group | Not or | + + + Author + + + | Author | [facility] | | | and [place] | + + + | Organization | and [facility] | | | and [place] [...] [place] | | | | | [address] | | + + + + + | Greta Broncheau | ECON | [place] | | | | | [address] | | + + + + + Care Team Providers + +------+ + | Care Turbine Subassembler Name | Role | Phone | + +------+ + | Becky Jennings | PCP | | + +------+ + Reason for Visit + +--------+ + | Reason | Onset | Comments | | | Date | | + +--------+ + | Appointment | 06/26/ | 1 yr fup due in August | | | 2014 | | + +--------+ + Encounter Details +--------+ + + + + | Date | Type | Department | Care Team | Description | +--------+ + + + + | 06/26/ | Telephone | [facility] | Endy Polo, | Appointment (1 yr | | 2014 | | CARDIOLOGY [address] | [address] | fup due in August) | | | | [place], | [place], | | | | | [place] [address] | [place] [address] | | | | | [phone] | [phone] | | | | | | | [...] this encounter Miscellaneous Notes Telephone Encounter - Nanda Davis - 06/28/2015 1:34 PM PDTCalled patient to schedule. S he stated that she does not feel like she needs to be seen. I let her know to call us to fol low up as needed. elephone Encounter - Nanda Davis - 06/27/2015 12:10 PM PDTCalled patient to [phone] (entered on last note incorrectly). Number is "temporarily out of service". elephone Encounter - Nanda Davis - 06/26/2015 3:52 PM PDTCalled patient to Cell phone #[phone] and it is no longer in service. Called patients other phone number [phone] and was told by female that this was just a phone number to relay message. Asked if I could get a good number to reach her at and was give her cell phone number [phone]. Numbers have been updated on [employer]. Patient last saw Dr. Ha on 08-24-14 and was told to follow up as needed. Called patient t o new number and left voicemail message to call back to schedule. documented in this encount er Plan of Treatment Not on filedocumented as of this encounter Visit Diagnoses Not on filedocumented in this encounter
--- OUTSIDE RECORDS SUMMARY | ~2020-06-17 | XMS | Clinical Summary ---
Demographics + + + | Address | [address] | | | [place] [address] | + + + | Home Phone | | + + + | Preferred Language | Unknown | + + + | Marital Status | | + + + | Advent Affiliation | Unknown | + + + | Race | or | + + + | Ethnic Group | Not or | + + + Author + + + | Author | [facility] | | | and [place] | + + + | Organization | [facility] | | | and [place] [...] [place] | | | | | [address] | | + + + + + | Greta Broncheau | ECON | [place] | | | | | [address] | | + + + + + Care Team Providers + +------+ + | Care Mold Maker Name | Role | Phone | [...] + + Plan of Treatment + + +-------+ + | Health Maintenance | Due Date | Last | Comments | | | | Done | | + + +-------+ + | Vaccine: | | | | | Dtap/Tdap/Td (1 - | 9 | | | | Tdap) | | | | + + +-------+ + | Cervical Cancer | | | | | Screening (Pap) | 0 | | | + + +-------+ + | Vaccine: Zoster (1 | | | | | of 2) | 0 | | | + + +-------+ + | Breast Cancer | | | | | Screening | 5 | | | + + +-------+ + | Vaccine: Influenza | | | | | (#1) | 0 | | | + + +-------+ + Results Not on filefrom Last 3 [...] +--------+ +---------+--------+ | MEDICARE | MEDICA | [id number] | 11/01/19 | [phone] | | Medica | | | RE | | 17-Pre | 5 | | re | | | PART A | | sent | | | | | | AND B | | | | | | + +--------+ +--------+ +---------+--------+ | HEALTH | IHS | [id number] | | | | Indemn | | [...] al/Fam | | 1961 | [phone] | [place] [address] | | | shonda | | | 8 (Home) | | + +--------+ +--------+ + + Advance Directives + + + + + | Type | Date Recorded | Patient | Explanation | | | | Rayon Winder | | + + + + + | Power of | | | | | [employer] Crew Member | | | | + + + + + | Advance | | | | | Directive | | | | + + + + +
--- OUTSIDE RECORDS SUMMARY | ~2020-06-17 | XMS | Encounter Summary ---
Demographics + + + | Address | [address] | | | [place] [address] | + + + | Home Phone [...] Author + + + | Author | [facility] [employer] [facility] | + + + | Organization | [facility] [facility] | + + + | Address | Unknown | + + + | Phone | Unavailable | + + + Support + + + + + | Name | Relationship | Address | Phone | + + + + + | Yue Fischer | ECON | [address] | | | | | [place] | | | | | [address] | | + + + + + | Greta Broncheau | ECON | Unknown | | + + + + + Care Team Providers + +------+ + | Care Cfa Name | Role | Phone | + +------+ + | Becky Jennings | PCP | | + +------+ + Encounter Details +--------+ + + + + | Date | Type | Department | Care Team | Description | +--------+ + + + + | 11/13/ | Results | Hematology/Medical | Yossi Hutchins MD | | | 2011 | Only | Oncology at [facility] | [address] | | | | | [address] | [facility], | | | | | Mailcode: CH7 | [place] [address] | | | | | [facility] | [phone] | | | | | and [place], | | | | | | [facility] | | | | | | [place], [place] | | | | | | [address] | | | | | | [phone] | | | +--------+ + + + [...] Way Lab) Chery | [facility] | | [facility] [address] [facility] | REGIONAL | | [place] [address] NOTE: TEST NOT PERFORMED: Duplicate | LABORATORY | | order. | | + + + + + + + + | Performing | Address | City/State/Zipcode | Phone Number | | Organization | | | | + + + + + | [facility] | [address] | [place] [address] | | | LABORATORY | | | [...] + + + | [facility] | [address] | [place] [address] | | | LABORATORY | | | [...] + + + | [facility] | [address] | [place] [address] | | | LABORATORY | | | [...] + + + | message left at [employer] | [facility] | | | DEPARTMENT OF | | | PATHOLOGY | + + + + + + + + | Performing | Address | City/State/Zipcode | Phone Number | | Organization | | | | + + + + + | [facility] DEPARTMENT OF | [address] | [place] [address] | | | PATHOLOGY | [address] [...] + + + + | [facility] | [address] | [place] [address] | | | PATHOLOGY | [address] [...] | + + + + + | [facility] DEPARTMENT | [address] | [place] [address] | | | PATHOLOGY | [address] | | | + + + + + documented in this encounter Visit Diagnoses Not on filedocumented in this encounter"
--- OUTSIDE RECORDS SUMMARY | ~2020-06-17 | XMS | Encounter Summary ---
Demographics + + + | Address | [address] | | | [place] [address] | + + + | Home Phone | | + + + | Preferred Language | Unknown | + + + | Marital Status | Single | + + + | Mormonism Affiliation | NON | + + + | Race | or | + + + | Ethnic Group | Not or | + + + Author + + + | Author | [facility] [employer] [facility] | + + + | Organization | [facility] [employer] [facility] | + + + | Address | Unknown | + + + | Phone | Unavailable | + + + Support + + + + + | Name | Relationship | Address | Phone | + + + + + | Yue Fischer | ECON | [address] | | | | | [place] | | | | | [address] | | + + + + + | Greta Broncheau | ECON | Unknown | | + + + + + Care Team Providers + +------+ + | Care Sports Journalist Name | Role | Phone | + +------+ + | Becky Jennings | PCP | | + +------+ + Encounter Details +--------+ + + + + | Date | Type | Department | Care Team | Description | +--------+ + + + + | 02/09/ | Results | LAB REFERRED TESTS | Other, Faculty | | | 2011 | Only | [address] [facility] | [phone] | | | | | [address] | | | | | | [place], [place] | | | | | | [address] | | | +--------+ + + + [...] + | [facility] DEPT OF | [address] [facility] | [place], [place] | | | CARDIOLOGY | [address] | [address] | | + + + + + [...] DEPT OF | [address] | [place], [place] | | | CARDIOLOGY | [address] | [address] | | + + + + + documented in this encounter Visit Diagnoses Not on filedocumented in this encounter"
--- OUTSIDE RECORDS SUMMARY | ~2020-06-17 | XMS | Encounter Summary ---
Demographics + + + | Address | [address] | | | [place] [address] | + + + | Home Phone [...] Author + + + | Author | [facility] [employer] [facility] | + + + | Organization | [facility] [employer] [facility] | + + + | Address | Unknown | + + + | Phone | Unavailable | + + + Support + + + + + | Name | Relationship | Address | Phone | + + + + + | Yue Fischer | ECON | [address] | | | | | [place] | | | | | [address] | | + + + + + | Greta Broncheau | ECON | Unknown | | + + + + + Care Team Providers + +------+ + | Care Wrecker Driver Name | Role | Phone | + +------+ + | Becky Jennings | PCP | | + +------+ + Encounter Details +--------+ + + + + | Date | Type | Department | Care Team | Description | +--------+ + + + + | 11/16/ | Results | LAB REFERRED TESTS | Other, Faculty | | | 2011 | Only | [address] [facility] | [phone] | | | | | [address] | | | | | | [place], [place] | | | | | | [address] | | | +--------+ + + + [...] + + | [facility]PT OF | [address] | [place], [place] | | | CARDIOLOGY | [facility] | [address] | | + + + + + documented in this encounter Visit Diagnoses Not on filedocumented in this encounter"
--- OUTSIDE RECORDS SUMMARY | ~2020-06-17 | XMS | Encounter Summary ---
Demographics + + + | Address | [address] | | | [place] [address] | + + + | Home Phone | | + + + | Preferred Language | Unknown | + + + | Marital Status | | + + + | Protestant Affiliation | Unknown | + + + | Race | or | + + + | Ethnic Group | Not or | + + + Author + + + | Author | [facility] | | | and [place] | + + + | Organization | [facility] | | [...] [place] | | | | | [address] | | + + + + + | Greta [place]cheau | ECON | [place] | | | | | [address] | | + + + + + Care Team Providers + +------+ + | Care Abstracter Name | Role | Phone | + +------+ + PCP | Unavailable | + +------+ + Encounter Details +--------+ + + + + | Date | Type | Department | Care Team | Description | +--------+ + + + + | 03/31/ | Hospital | [facility] | [place], | | | 2011 | Encounter | [facility] | Antonio Infante MD [address] | | | | | CENTER [address] | [facility] | | | | | [place] | [address] | | | | | [address] | [address] | | | | | [phone] | | | +--------+ + + + [...] | 03/25/20 | | | (VITAMIN D3) [id number] | mouth Once a week. | | [...] mouth | | 0 | 03/29/20 | 05/15/201 | | (PRINIVIL, ZESTRIL) | Daily. | [...] encounter Progress Notes Antonio Renee MD - 03/15/2012 3:15 AM PDTPROGRESS NOTE 03/31/2012 IDENTIFYING STATEMENT: Frida Christian is a 51-year-old woman from [place], [place], with Burkitt's lymphoma. ACTIVE DIAGNOSES: 1. Presentation in August 2001, with intractable searing abdominal pain. Symptoms progre ssed and on October 05, 2011, she underwent advanced imaging that demonstrated diffuse malignant lymphadenopathy throughout the retroperitoneum. 2. Laparoscopic lymph node biopsy on November 10, 2011, at [facility], demonstrated a high grade B cell lymphoma, consistent with Burkitt's lymphoma, positive for BCL6, CD10, CD19, CD20, CD2 2, and kappa light chains. Ignacio-Palmer virus was positive by in situ hybridization, KI 67 f raction was greater than 90%. 3. Initiation of Rituxan/Hyper-CVAD chemotherapy at [facility] on November 15, 2011. CHIEF COMPLAINT: Frida Christian returned to the [facility] in [place], [place] on March 31, 2012, cycle 3A day #17 of Rituxan/Hyper-CVAD chemoth era. BRIEF REVIEW OF SYSTEMS: Constitutional: Positive for fatigue. Denies high fever, shaking chills, anorexia, nausea , vomiting, weight loss, or night sweats. Ear, Nose, Mouth, Throat: Denies odynophagia, dysphagia, or tinnitus. Cardiovascular: De nies shortness of breath, dyspnea on exertion, chest pain, palpitations, or orthopnea. Respiratory: Denies cough, hemoptysis, or sputum production. Gastrointestinal: She is com plaining of bowel irregularity.Genitourinary: Denies hematuria or dysuria. Musculoskeletal: Denies joint pain and tenderness. Neurologic: Denies headache, visual changes, or numbness/tingling of the extremities. End ocrine: Denies peripheral edema or heat/cold intolerance. Hematologic: Denies spontaneous bruising or bleeding. PAST MEDICAL HISTORY, PAST SURGICAL HISTORY, PSYCHOSOCIAL HISTORY, FAMILY HISTORY, AND HAB ITS: See the full dictated note December 07, 2011, reviewed and unchanged. CURRENT [...] to metal. PHYSICAL EXAMINATION: Blood pressure is 109/73, pulse 70, temperature 36.9 degrees Celsiu s, Saturation of oxygen is 97% on room air. Her weight is 79.6 kg. EYES: Conjunctivae clear. Sclerae anicteric. ENMT: Oropharynx free of lesions, mucous membranes moist. CARDIOVASCULAR: Regular rate and rhythm. Normal S1 and S2 without murmur, gallop, or rub . LUNGS: Good air movement bilaterally. No rhonchi, wheeze, or rales. CHEST: Her left anterior chest Port-A-Cath was accessed with a Silver needle and a brisk bl ood return was documented. ABDOMEN: Soft, nontender, nondistended, with normoactive bowel sounds. No hepatomegaly. No splenomegaly. No palpable masses. No ascites. LYMPH NODES: No cervical, supraclavicular, axillary, or inguinal lymphadenopathy. MUSCULOSKELETAL: No joint tenderness or swelling. SKIN: No petechiae, ecchymoses, or rash. EXTREMITIES: Her left great toe paronychia has completely resolved. NEUROLOGIC: Alert and oriented times three. Face symmetric. Voice articulate. Station and gait within normal limits. LABORATORY DATA: Hemoglobin is 8.6, hematocrit 24.1%, platelet count is 171,000, white co unt is 7100. Comprehensive metabolic panel is entirely within normal limits except for an a lkaline phosphatase of 135, upper limits of normal is 110, potentially related to hematopoi etic recovery. ASSESSMENT: Burkitt's lymphoma. PLAN: Frida will return to see me on April 11, 2012 for clinical and laboratory followup and if laboratory evaluation is acceptable, she will be admitted for cycle #3B of the Ritux an/Hyper-CVAD cycle with dose reduction of cytarabine. She will also receive her next sched uled injection of intrathecal chemotherapy with cytarabine on that date. cc: JING Luis, [facility] <Electronically Signed by Antonio Renee MD> 04/05/12 1422 Antonio Renee MD - 03/15/2012 3:15 AM PDTPROGRESS NOTE: 03/24/2012 IDENTIFYING STATEMENT: Frida Christian is a 51-year-old woman from [place], [place], with Burkitt's lymphoma. ACTIVE DIAGNOSES: 1. Presentation in August 2001, with intractable searing abdominal pain. Symptoms progre ssed and on October 05, 2011, she underwent advanced imaging that demonstrated diffuse malignant lymphadenopathy throughout the retroperitoneum. 2. Laparoscopic lymph node biopsy on November 10, 2011, at [facility], demonstrated a high grade B cell lymphoma, consistent with Burkitt's lymphoma, positive for BCL6, CD10, CD19, CD20, CD2 2, and kappa light chains. Ignacio-Palmer virus was positive by in situ hybridization, KI 67 f raction was greater than 90%. 3. Initiation of Rituxan/Hyper-CVAD chemotherapy at [facility] on November 15, 2011. CHIEF COMPLAINT: Frida Christian returned to the [facility] on March 24, 2012, at cycle no. 3A, day no. 10 of Rituxan/hyper-CVAD chemotherapy. REVIEW OF SYSTEMS: CONSTITUTIONAL: Positive for fatigue. Denies high fever, shaking chills, anorexia, nause a, vomiting, or weight loss. EAR, NOSE, MOUTH, THROAT: Denies odynophagia, dysphagia, or tinnitus. CARDIOVASCULAR: Po sitive for palpitations. Denies shortness of breath, dyspnea on exertion, chest pain, or o rthopnea. RESPIRATORY: Denies cough, hemoptysis, or sputum production. GASTROINTESTINAL: Positive for diarrhea. Denies abdominal pain, constipation, melena, or bright red blood per rectum. GENITOURINARY: Denies hematuria or dysuria. MUSCULOSKELETAL: Positive for back pain rated at 6 out of 10. NEUROLOGIC: Denies headache , visual changes, or numbness/tingling of the extremities. ENDOCRINE: Denies peripheral ed ludwig or heat/cold intolerance. HEMATOLOGIC: Denies spontaneous bruising or bleeding. PAST MEDICAL HISTORY, FAMILY HISTORY, SOCIAL HISTORY, HABITS: Please see the full dictate d note dated December 07, 2011, which is reviewed and unchanged. CURRENT MEDICATIONS: Acyclovir 400 mg orally daily Augmentin 875 mg orally twice daily Coreg 3.125 mg orally twice daily Lomotil one tablet as needed for diarrhea Vitamin D 50,000 units orally every week Lisinopril 10 mg orally daily Ativan one milligram every four hours as needed for nausea, anxiety, or restlessness Prilo sec 20 mg orally daily OxyContin 20 mg orally twice daily MiraLAX 17 g orally daily as needed for constipation Compazine 5-10 mg as needed for nausea Senna one to two tablets as needed for constipation ALLERGIES: No known drug allergies. Metal caused a rash. She did have renal failure after being treated with vancomycin. PHYSICAL EXAMINATION: Blood pressure is 99/61, pulse 97, temperature 36.4 degrees Celsius . Oxygen saturation is 98% on room air. Weight is 79.8 kg. EYES: Conjunctivae clear. Sclerae anicteric. ENMT: [...] gait within normal limits. STUDIES: Hemoglobin is 9, hematocrit 25.5%, platelet count 127,000, white count 9800. Co mprehensive metabolic panel reveals BUN 16, creatinine 0.72, alkaline phosphatase 123 with upper limit of normal 110. The rest of her metabolic panel is within normal limits. ASSESSMENT: Burkitt's lymphoma, status post cycle 3A of Rituxan/hyper-CVAD chemotherapy. PLAN: Frida will return to see me in one week for clinical and laboratory follow-up and treatment planning for cycle no. 3B scheduled for April 05, 2012. CC: [facility] <Electronically Signed by Antonio Renee MD> 06/04/12 2104 documented in this encounter Plan of Treatment Not on filedocumented as of this encounter Procedures + +--------+ + + + | Procedure Name | Priori | Date/Time | Associated Diagnosis | Comments | | | ty | | | | + +--------+ + + + | CBC WITH | Routin | 03/31/2012 | | Results for this | | DIFFERENTIAL | e | 9:26 AM | | procedure are in the | | | | PDT | | results section. | + +--------+ + + + | LACTATE | Routin | 03/31/2012 | | Results for this | | DEHYDROGENASE | e | 9:26 AM | | procedure are in the | | | | PDT | | results section. | + +--------+ + + + | COMPREHENSIVE | Routin | 03/31/2012 | | Results for this | | METABOLIC PANEL | e | 9:26 AM | | procedure are in the | | | | PDT | | results section. | + +--------+ + + + | CBC W/AUTO | Routin | 03/24/2012 | | Results for this | | DIFFERENTIAL | e | 8:53 AM | | procedure are in the | | | | PDT | | results section. | + +--------+ + + + | LACTATE | Routin | 03/24/2012 | | Results for this | | DEHYDROGENASE | e | 8:53 AM | | procedure are in the | | | | PDT | | results section. | + +--------+ + + + | COMPREHENSIVE | Routin | 03/24/2012 | | Results for this | | METABOLIC PANEL | e | 8:53 AM | | procedure are in the | | | | PDT | | results section. | + +--------+ + + + | CBC WITH | Routin | 03/15/2012 | | Results for this | | DIFFERENTIAL | e | 11:02 AM | | procedure are in the | | | | PDT | | results section. | + +--------+ + + + | LACTATE | Routin | 03/15/2012 | | Results for this | | DEHYDROGENASE | e | 11:02 AM | | procedure are in the | | | | PDT | | results section. | + +--------+ + + + | COMPREHENSIVE | Routin | 03/15/2012 | | Results for this | | METABOLIC PANEL | e | 11:02 AM | | procedure are in the | | | | PDT | | results section. | + +--------+ + + + documented in this encounter Results Comprehensive Metabolic Panel (03/31/2012 9:26 AM PDT) + + + + + + | Component | Value | Ref Range | Performed | Pathologist | | | | | At | Signature | + + + + + + | Glucose | 101 | 70 - 109 mg/dL | [facility] [...] + + + + | ALT | 26 | 6 - 45 IU/L | [facility] [...] + + + + | BUN/Creatin | 13.2 | 12 - 20 | [facility] | [...] + + + | Anion Gap | 10.1 | 6.0 - 17.0 | [facility] | [...] + | [facility] | [address] | [place], [place] | [phone] | | [facility] | | [address] | | | - LABORATORY | | | | + + + + + | [facility] | [address] | [place], [place] | | | [facility] | | [address] [place] [address] | | | - LABORATORY | | | | + + + + + Lactate Dehydrogenase (03/31/2012 9:26 AM PDT) + +-------+ + + + | Component | Value | Ref Range | Performed | Pathologist | | | | | At | Signature | + +-------+ + + + | LDH TOTAL | 135 | 91 - 180 IU/L | [facility] [...] + | [facility] | [address] | [place] | [phone] | | [facility] | | [address] | | | - LABORATORY | | | | + + + + + | [facility] | [address] | [place], [place] | | | [facility] | | [address] | | | - LABORATORY | | | | + + + + + CBC with Differential (03/31/2012 9:26 AM PDT) + + + + + + | Component | Value | Ref Range | Performed | Pathologist | | | | | At | Signature | + + + + + + | White Blood | 7.1 | 4.0 - 11.0 K/uL | [facility] | | | Cells | | | [facility] | | | | | | MEDICAL | | | | | | CENTER - | | | | | | LABORATORY | | + + + + + + | Red Blood | 2.60 (L) | 3.70 - 5.20 | [facility] [...] + + + + | Hematocrit | 24.1 (L) | 34.0 - 47.0 % | [...] + + + + | MCH | 33.1 | 28.0 - 35.0 pg | [facility] [...] + + + + | RDW-CV | 15.8 (H) | <15.0 % | [facility] | | | | | | [facility] | | | | | | MEDICAL | | | | | | CENTER - | | | | | | LABORATORY | | + + + + + + | Platelet | 171 | 140 - 440 K/uL | [facility] | | | Count | | | [facility] | | | | | | MEDICAL | | | | | | CENTER - | | | | | | LABORATORY | | + + + + + + | % | 71.1 | 45 - 75 % | [facility] | | | Neutrophils | | | [facility] | | | | | | MEDICAL | | | | | | CENTER - | | | | | | LABORATORY | | + + + + + + | % | 16.5 (L) | 20 - 45 % | [facility] | | | Lymphocytes | | | [facility] | | | | | | MEDICAL | | | | | | CENTER - | | | | | | LABORATORY | | + + + + + + | % Monocytes | 9.6 | 4 - 12 % | [facility] | | | | | | [facility] | | | | | | MEDICAL | | | | | | CENTER - | | | | | | LABORATORY | | + + + + + + | % | 2.5 | 0 - 5 % | [facility] [...] + + + + | Absolute | 5.1 | 1.5 - 6.6 K/uL | [facility] [...] + | [facility] | [address] | [place], [place] | [phone] | | [facility] | | [address] | | | - LABORATORY | | | | + + + + + | [facility] | [address] | [place], [place] | | | [facility] | | [address], [facility] | | | - LABORATORY | | | | + + + + + Comprehensive Metabolic Panel (03/24/2012 8:53 AM PDT) + + + + + + | Component | Value | Ref Range | Performed | Pathologist | | | | | At | Signature | + + + + + + | Glucose | 113 (H) | 70 - 109 mg/dL | [...] + + + + | Alkaline | 123 (H) | 40 - 110 IU/L | [...] + + + + | ALT | 20 | 6 - 45 IU/L | [facility] [...] + + + + | BUN/Creatin | 22.2 (H) | 12 - 20 | [facility] [...] + + + + | Cl | 109 | 98 - 109 mEq/l | [facility] [...] + | [facility] | [address] | [place], [place] | [phone] | | [facility] | | [address] | | | - LABORATORY | | | | + + + + + | [facility] | [address] | [place], [place] | | | [facility] | | [address], [facility] | | | - LABORATORY | | | | + + + + + Lactate Dehydrogenase (03/24/2012 8:53 AM PDT) + +-------+ + + + | Component | Value | Ref Range | Performed | Pathologist | | | | | At | Signature | + +-------+ + + + | LDH TOTAL | 150 | 91 - 180 IU/L | [facility] [...] + | [facility] | [address] | [place] | [phone] | | [facility] | | [address] | | | - LABORATORY | | | | + + + + + | [facility] | [address] | [place], [place] | | | [facility] | | [address] | | | - LABORATORY | | | | + + + + + CBC w/ Auto Differential (03/24/2012 8:53 AM PDT) + + + + + + | Component | Value | Ref Range | Performed | Pathologist | | | | | At | Signature | + + + + + + | White Blood | 9.8 (A) | 4.0 - 11.0 K/uL | [facility] | | | Cells | | | [facility] | | | | | | MEDICAL | | | | | | CENTER - | | | | | | LABORATORY | | + + + + + + | Red Blood | 2.77 (L) | 3.70 - 5.20 | [facility] [...] + + + + | MCV | 92.0 | 83.0 - 101.0 fL | [facility] | | | | | | [facility] | | | | | | MEDICAL | | | | | | CENTER - | | | | | | LABORATORY | | + + + + + + | MCH | 32.5 | 28.0 - 35.0 pg | [facility] [...] + + + + | Platelet | 127 (L) | 140 - 440 K/uL | [...] + + + | Total Cells | 100 | | [facility] | | | Counted | | | [facility] | | | | | | MEDICAL | | | | | | CENTER - | | | | | | LABORATORY | | + + + + + + | % Segmented | 56 | 50 - 70 % | [facility] | | | | | | [facility] | | | Neutrophils | | | MEDICAL | | | | | | CENTER - | | | | | | LABORATORY | | + + + + + + | % Bands | 11 (H) | 0 - 5 % | [facility] | | | | | | [facility] | | | | | | MEDICAL | | | | | | CENTER - | | | | | | LABORATORY | | + + + + + + | % | 16 (L) | 20 - 40 % | [facility] | | | Lymphocytes | | | [facility] | | | | | | MEDICAL | | | | | | CENTER - | | | | | | LABORATORY | | + + + + + + | % Monocytes | 6 | 1 - 6 % | [facility] | | | | | | [facility] | | | | | | MEDICAL | | | | | | CENTER - | | | | | | LABORATORY | | + + + + + + | % | 8 (H) | 1 - 5 % | [facility] [...] + + + + | RBC | 1+ | | [facility] | | | Microcytes [...] + + + + | Dohle | 2+ | | [facility] | | | Bodies [...] + | [facility] | [address] | [place] | [phone] | | [facility] | | [address] | | | - LABORATORY | | | | + + + + + | [facility] | [address] | [place], [place] | | | [facility] | | [address] | | | - LABORATORY | | | | + + + + + Comprehensive Metabolic Panel (03/15/2012 11:02 AM PDT) + + + + + + | Component | Value | Ref Range | Performed | Pathologist | | | | | At | Signature | + + + + + + | Glucose | 88 | 70 - 109 mg/dL | [facility] [...] + + + + | Alkaline | 102 | 40 - 110 IU/L | [facility] [...] 4.0 | 3.2 - 5.0 gm/dL | [facility] | | | | | | [facility] | | | | | | MEDICAL | | | | | | CENTER - | | | | | | LABORATORY | | + + + + + + | BUN | 12 | 7 - 18 mg/dL | [facility] | | | | | | [facility] | | | | | | [facility]ICAL | | | | | | CENTER - | | | | | | LABORATORY | | + + + + + + | Creatinine | 0.83 | 0.60 - 1.30 | [facility] | [...] + + + | Anion Gap | 10.7 | 6.0 - 17.0 | [facility] | [...] + | [facility] | [address] | [place] | [phone] | | [facility] | | [address] | | | - LABORATORY | | | | + + + + + | [facility] | [address] | [place], [place] | | | [facility] | | [address], [facility] | | | - LABORATORY | | | | + + + + + Lactate Dehydrogenase (03/15/2012 11:02 AM PDT) + +-------+ + + + | Component | Value | Ref Range | Performed | Pathologist | | | | | At | Signature | + +-------+ + + + | LDH TOTAL | 150 | 91 - 180 IU/L | [facility] [address] | [place] | [phone] | | [facility] | | [address] | | | - LABORATORY | | | | + + + + + | [facility] | [address] | [place] | | | [facility] | | [address] | | | - LABORATORY | | | | + + + + + CBC with Differential (03/15/2012 11:02 AM PDT) + + + + + + | Component | Value | Ref Range | Performed | Pathologist | | | | | At | Signature | + + + + + + | White Blood | 8.9 | 4.0 - 11.0 K/uL | [facility] | | | Cells | | | [facility] | | | | | | MEDICAL | | | | | | CENTER - | | | | | | LABORATORY | | + + + + + + | Red Blood | 3.38 (L) | 3.70 - 5.20 | [facility] | | | Cells | | M/uL | [facility] | | | | | | MEDICAL | | | | | | CENTER - | | | | | | LABORATORY | | + + + + + + | Hemoglobin | 11.0 (L) | 11.5 - 16.0 | [facility] | | | | | gm/dL | [facility] | | | | | | MEDICAL | | | | | | CENTER - | | | | | | LABORATORY | | + + + + + + | Hematocrit | 31.6 (L) | 34.0 - 47.0 % | [...] + + + + | MCH | 32.4 | 28.0 - 35.0 pg | [facility] [...] + + + + | Platelet | 298 | 140 - 440 K/uL | [facility] | | | Count | | | [facility] | | | | | | MEDICAL | | | | | | CENTER - | | | | | | LABORATORY | | + + + + + + | % | 37.7 (L) | 45 - 75 % | [facility] | | | Neutrophils | | | [facility] | | | | | | MEDICAL | | | | | | CENTER - | | | | | | LABORATORY | | + + + + + + | % | 42.9 | 20 - 45 % | [facility] [...] + + + + | % | 8.2 (H) | 0 - 5 % | [...] + + + | Absolute | 3.8 (H) | 0.6 - 3.2 K/uL | [facility] [...] + | [facility] | [address] | [place] | [phone] | | [facility] | | [address] | | | - LABORATORY | | | | + + + + + | [facility] | [address] | [place] | | | [facility] | | [address] [place] [address] | | | - LABORATORY | | | | + + + + + documented in this encounter Visit Diagnoses Not on filedocumented in this encounter"
--- OUTSIDE RECORDS SUMMARY | ~2020-06-17 | XMS | Encounter Summary ---
Demographics + + + | Address | [address] | | | [place] [address] | + + + | Home Phone [...] + + + | Author | [facility] | | | and [place] | + + + | Organization | [facility] | | | and [place] [...] [place] | | | | | [address] | | + + + + + | Greta [place] | ECON | [place] | | | | | [address] | | + + + + + Care Team Providers + +------+ + | Care Continuing Education Dean Name | Role | Phone | + [...] | Conversion Location | Antonio Infante MD [address] | | | | | [address] | [facility] | | | | | [place], [place] | [address] [place] | | | | | [address] | [address] | | | | | [phone] | | | +--------+ + + + [...]
--- OUTSIDE RECORDS SUMMARY | ~2020-06-17 | XMS | Encounter Summary ---
Demographics + + + | Address | [address] | | | [place] [address] | + + + | Home Phone [...] + + + | Author | [facility] | | | and [place] | + + + | Organization | [facility] | | | and [...] [place] | | | | | [address] | | + + + + + | Greta [place] | ECON | [place] | | | | | [address] | | + + + + + Care Team Providers + +------+ + | Care Aviation Technical Systems Specialist Name | Role | Phone | + +------+ + | Becky Jennings | PCP | | + +------+ + Reason for Visit + +--------+ + | Reason | Onset | Comments | | | Date | | + +--------+ + | Medication Refill | 08/21/ | | | | 2013 | | + +--------+ + Encounter Details +--------+--------+ + + + | Date | Type | Department | Care Team | Description | +--------+--------+ + + + | 08/17/ | Refill | [facility] | [place], | Medication Refill | | 2013 | | [facility] | Antonio Infante MD [address] | | | | | [facility] | [facility] | | | | | [place] | [address] [place] | | | | | [place] [address] | [id number] | | | | | [phone] | | | +--------+--------+ + + + [...] this encounter Miscellaneous Notes Telephone Encounter - Mirtha Najera - 08/17/2014 11:59 AM PDTNeeds a refill of jerrica brink. 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
--- OUTSIDE RECORDS SUMMARY | ~2020-06-17 | XMS | Encounter Summary ---
Demographics + + + | Address | [address] | | | [place] [address] | + + + | Home Phone [...] + + + | Author | [facility] | | | and [place] | + + + | Organization | [facility] | | | and [place] [...] [place] | | | | | [address] | | + + + + + | Greta [place] | ECON | [place] | | | | | [address] | | + + + + + Care Team Providers + +------+ + | Care Ambulance Driver Paramedic Name | Role | Phone | + +------+ + PCP | Unavailable | + +------+ + Encounter Details +--------+ + + + + | Date | Type | Department | Care Team | Description | +--------+ + + + + | 12/14/ | Hospital | [facility] | Thel[place], | | | 2011 - | Encounter | [facility] | Antonio Infante MD [address] | | | | | [address] | [facility] | | | 12/15/ | | [place] [address] | [address] [place] | | | 2011 | | [phone] | [address] | | | | | | | [...] encounter Discharge Summaries Antonio Renee MD - 12/14/2011 4:38 PM PSTADMISSION DATE: 12/14/2011 DISCHARGE DATE: 12/15/2011 ADMITTING DIAGNOSES 1. Burkitt's lymphoma. 2. Cycle 1B, day #13 Rituxan HyperCVAD chemotherapy. 3. Symptomatic anemia. 4. Symptomatic thrombocytopenia. DISCHARGE DIAGNOSES 1. BURKITT'S LYMPHOMA. 2. CYCLE 1B, DAY #14 OF RITUXAN HYPERCVAD CHEMOTHERAPY. 3. SYMPTOMATIC ANEMIA, IMPROVED. 4. SYMPTOMATIC THROMBOCYTOPENIA, IMPROVED. PROCEDURE: She received 4 units of filtered irradiated CMV negative packed red blood cells and 1 sing le-donor unit of CMV negative filtered irradiated platelets. COMPLICATIONS: None. CONSULTATIONS: None. HOSPITAL COURSE: Frida Christian is a 51-year-old woman from [place], [place] with Burkitt's lymphoma, who was admitted to [facility] in [facility] for blood product support, cycle 1B, day #13 Rituxan HyperCVAD chemotherapy. She received 2 units of packed red blood cells and 1 single-donor platelet apheresis unit. The following day, blood counts were notable for a hemoglobin of 6.9, hematocrit of 19.8%, platelet c ount 44,000, white count 2300 with an absolute neutrophil count of 1200. She the n received 2 addition al units of packed red blood cells and was discharged home. PHYSICAL EXAMINATION VITAL SIGNS: Blood pressure was 96/40, respiratory rate was 16, saturation of oxygen is 95% on room a ir, pulse was 72, temperature 36.4 degrees Celsius. HEENT: Sclera was notable for the absence of any subconjunctival hemorrhage. Oropharynx renan e of lesio ns. NECK: Supple without thyromegaly. LUNGS: Clear to auscultation. CARDIOVASCULAR: Regular rate and rhythm. Normal S1, normal S2, without rubs, gallops, or mu rmurs. SKIN: Remarkably notable for the absence of any petechiae or ecchymoses. NEUROLOGIC: She is awake and alert. Face symmetric, voice articulate. She was independent o f all her activities within the hospital room. EXTREMITIES: Notable for a double lumen right upper extremity PICC line that was dressed an d flushed at the time of discharge. DISCHARGE MEDICATIONS 1. Ativan 1 to 2 mg orally every 4 hours as needed for nausea, anxiety, or restlessness. 2 . Compazine 5 to 10 mg every 6 hours as needed for nausea. 3. Diflucan 200 mg orally twice daily. 4. Levaquin 500 mg orally once daily. 5. Marinol 5 mg orally 3 times daily. 6. MiraLax 17 g orally once daily as needed for constipation. 7. Mycostatin topical powder twice daily as needed for rash. 8. OxyContin 40 mg orally twice daily. 9. Prilosec 20 mg orally daily. 10. Senna 1 to 2 tablets as needed for constipation. 11. Septra single strength 2 tablets orally twice daily on Tuesdays and only. 12 . Acyclovir 400 mg orally once daily. DISCHARGE PLANS: The discharge plan is for patient to return to clinic on 12/21/2011 for he r cycle 2A of Rituxan HyperCVAD chemotherapy as well as intrathecal methotrexate. DICTATED BY: Antonio Renee MD Oncology JOB #: [id number] EXT JOB #:[id number] cc: Dylan Martinez MD, [facility] [place] <Electronically Signed by Adams Renee MD> 12/22/11 1312 documented in this encounter H&P Notes Antonio Renee MD - 12/14/2011 4:38 PM PSTDATE: 12/14/2011 IDENTIFYING STATEMENT: Frida Christian is a 51-year-old woman from [place], [place] with Bur miguel's lym phoma who is admitted to [facility] in [facility] for blood prod uct support, cycle 1B, day 13 or Rituxan/hyper-CVAD chemotherapy. CHIEF COMPLAINT: Frida received cycle 1B of hyper-CVAT/Rituxan chemotherapy at the [facility] under the supervision of Dr. Dylan Martinez 2 weeks ago. She was seen for consultation and continuity of care at the [facility] in [place], [place] on 12/07/2011. At that time hemoglobin was 8.8, hem atocrit 26.2, platele t count was 343607 and white count was 2400. Absolute neutrophil coun t 2300. On the day of admission had phe presented to the [facility] emergency department in [place], [place] with complaints of intractable nose bleeding. Complete blood She was then transferred to the [facility] in [place], [place] to begin blood products and she is now admitted to the [facility] f or ongoing transfusion of blood products. PAST MEDICAL HISTORY 1. Presentation in August of 2001 with intractable searing abdominal pain symptoms progres s and on 12/06/2010 underwent advanced imaging that demonstrated diffuse malignant lymphad enopathy throughout t he retroperitoneum. 2. Laparoscopic lymph node biopsy on 11/10/2011 [facility] which demonstrat ed high-grade B-cell lymphoma consistent with Burkitt's lymphoma positive for BC L 6, CD10, CD19, CD20 , CD22 and kappa light chains. Ignacio-Palmer virus was positive by in situ hybridization KI-67 fractio n was greater than 90%. 3. She received her first cycle of hyper-CVAD chemotherapy at [facility] on 11/15/2011 and her se cond cycle on 12/02/2011. REVIEW OF SYSTEMS CONSTITUTIONAL: Anorexia and weight loss which were symptoms of her presentation, resolved. Denies high fevers, shaking, chills. Positive for fatigue. Denies nausea or vomit ing. HEENT: Positive for intractable nose bleeding. CARDIOVASCULAR: Denies shortness of breath, dyspnea on exertion or chest pain, palpitations , orthopne a. RESPIRATORY: Denies cough, hemoptysis or sputum production. GASTROINTESTINAL: Denies abdominal pain, constipation, diarrhea, melena, or bright blood pe r rectum. GENITOURINARY: Denies hematuria or dysuria. MUSCULOSKELETAL: Denies joint pain or tenderness. NEUROLOGIC: She has already developed some symptomatic neuropathy from just her first 2 cyc les of sofy motherapy both with painful dysesthesias as well as paresthesias in the fingers and toes. This has in terfered with activities such as picking up small objects. ENDOCRINE: Denies peripheral edema or heat or cold intolerance. HEMATOLOGIC: Denies spontaneous bruising or bleeding. PAST MEDICAL HISTORY: None. PAST SURGICAL HISTORY: section 1981. PSYCHOSOCIAL HISTORY: She lives alone independently in [place], [place]. HABITS: Positive for tobacco use, positive for remote history of alcohol use. FAMILY HISTORY: There is no history of cancer in first degree relatives. ROUTINE MEDICATIONS 1. Acyclovir 400 mg orally daily 2. Marinol 5 mg orally 3 times a day 3. Diflucan 200 mg orally twice daily 4. Levaquin 500 mg orally daily 5. Ativan 1 mg to 2 mg orally every 4 hours as needed for nausea, anxiety or restlessness 6. Nystatin topical powder topically twice daily 7. Prilosec 20 mg orally daily 8. OxyContin 40 mg orally twice daily 9. MiraLax 17 g orally as needed 10. Compazine 5 to 10 mg every 6 hours as needed for nausea or vomiting 11. Senna 1 to 2 t ablets orally as needed for constipation 12. Septra DS one tablet orally twice daily ALLERGIES: NO KNOWN DRUG ALLERGIES. PHYSICAL EXAMINATION VITAL SIGNS: Blood pressure was 99/57 sitting. Pulse was 90, respiratory rate 18, temperatu re is 37C. HEENT: The sclerae were notable for subconjunctival hemorrhage. The oropharynx was free of lesions. T he nares were clamped shut with a compression clamp along with gauze that is soa ked in blood. LUNGS: Clear to auscultation. CARDIOVASCULAR: Regular rate and rhythm. Normal S1 normal S2 without rubs, gallops, murmurs . ABDOMEN: Soft, nontender, nondistended. No hepatomegaly no splenomegaly. No ascites. LYMPH: Node survey there is no cervical, supraclavicular, axillary, or inguinal lymphadenop athy. MUSCULOSKELETAL: Notable for the absence of any joint swelling or tenderness. SKIN: Without any petechiae or ecchymoses. EXTREMITIES: Are notable for right upper extremity double-lumen PICC line. NEUROLOGIC: She appears quite calm and comfortable. Face is symmetric, voice, articulate. S tation and gait within normal limits. ASSESSMENT: Neutropenia, thrombocytopenia and anemia, secondary to hyper-CVAD chemotherapy for Burkit t's lymphoma. PLAN: Frida will receive transfusion of single donor platelet apheresis unit in the [facility] t [place]. We will then admitted to [facility] for short stay for transfusion of 2 units of packed red blood c ells. Repeat her blood count tomorrow morning and if her platelet cou nt is greater than 20,000 I will discharge her home. If her platelet count is less than 20, 000 I will give her another single donor p latelet pheresis unit. PROCEDURE NOTE: 1. Admit to [facility], Dr. Renee 2. Short stay status 3. Diagnoses - Anemia and thrombocytopenia following chemotherapy for Burkitt's lymphoma. 4. Activity is ad thai. 5. Condition is fair. 6. Full code. 7. Vital signs are routine. 8. ALLERGY: DAIRY PRODUCTS cause diarrhea. 9. Nursing may draw labs from the right upper extremity PICC line following the central kunal ous cathet er protocol. 10. Diet is regular, dairy. 11. IV is normal saline at keep vein open. 12. Lab order for 12/15/2011 is a complete blood count with differential. 13. Acyclovir 80 0 mg orally once daily. 14. Dronabinol 5 mg orally 3 times daily, #15. 15. Fluconazole 200 mg orally once daily (admitting physician's preference). 16. Levofloxa griselda 500 mg orally daily. 17. Lorazepam 1 to 2 mg orally every 4 hours as needed for nausea, anxiety or restlessness. 18. Nystatin powder topically twice daily. 19. Formulary proton pump inhibitor 1 unit dose orally daily. 20. OxyContin 40 mg orally t wice daily. 21. MiraLax 17 g orally daily as needed for constipation. 22. Compazine 10 mg every 6 hour s as needed for nausea. 23. Senna 1 to 2 tablets orally twice daily as needed for constipation. 24. Septra DS one tablet orally twice daily. DICTATED BY: Antonio eRnee MD Oncology JOB #: [id number] EXT JOB #:[id number] cc: Dylan Martinez MD [facility] in [place], [place] <Electronically Signed by Antonio Renee MD> 12/14/11 1815 documented in this encounter Plan of Treatment Not on filedocumented as of this encounter Procedures + +--------+ + + + | Procedure Name | Priori | Date/Time | Associated Diagnosis | Comments | | | ty | | | | + +--------+ + + + | CBC W/AUTO | Routin | 12/15/2011 | | Results for this | | DIFFERENTIAL | e | 6:09 AM | | procedure are in the | | | | PST | | results section. | + +--------+ + + + | ANTIBODY SCREEN, | Routin | 12/14/2011 | | Results for this | | TUBE TEST | e | 2:56 PM | | procedure are in the | | | | PST | | results section. | + +--------+ + + + | ABO RH | Routin | 12/14/2011 | | Results for this | | | e | 2:56 PM | | procedure are in the | | | | PST | | results section. | + +--------+ + + + | ABO RH | Routin | 12/14/2011 | | | | | e | 2:56 PM | | | | | | PST | | | + +--------+ + + + | PLATELET PHERESIS | Routin | 12/14/2011 | | Results for this | | | e | 12:19 PM | | procedure are in the | | | | PST | | results section. | + +--------+ + + + | CROSSMATCH (IN ML) | Routin | 12/14/2011 | | Results for this | | | e | 12:19 PM | | procedure are in the | | | | PST | | results section. | + +--------+ + + + | CROSSMATCH (IN ML) | Routin | 12/14/2011 | | Results for this | | | e | 12:19 PM | | procedure are in the | | | | PST | | results section. | + +--------+ + + + | CROSSMATCH (IN ML) | Routin | 12/14/2011 | | Results for this | | | e | 12:19 PM | | procedure are in the | | | | PST | | results section. | + +--------+ + + + | CROSSMATCH (IN ML) | Routin | 12/14/2011 | | Results for this | | | e | 12:19 PM | | procedure are in the | | | | PST | | results section. | + +--------+ + + + documented in this encounter Results CBC w/ Auto Differential (12/15/2011 6:09 AM PST) + + + + + + | Component | Value | Ref Range | Performed | Pathologist | | | | | At | Signature | + + + + + + | White Blood | 2.3 (LL) | 4.0 - 11.0 K/uL | [facility] | | | Cells | | | [facility] | | | | | | MEDICAL | | | | | | CENTER - | | | | | | LABORATORY | | + + + + + + | Red Blood | 2.42 (L) | 3.70 - 5.20 | [facility] [...] + + | Hematocrit | 19.8 (LL)Comment: | 34.0 - 47.0 % | [facility] | | | | | | [facility] | | | | CRITICAL VALUE | | MEDICAL | | | | HGB,HCT,WBC Time | | CENTER - | | | | for CRITICAL 10 results | | LABORATORY | | | | to Clinical Provider is | | | | | | 30 min. DO NOT | | | | [...] | | | | | CALLED TO OLIVERIO | | | | | | JORDEN/3WM 12/15/11 | | | | | | @0633 by KARLOS @ * | | | [...] + + + | MCV | 81.8 (L) | 83.0 - 101.0 fL | [facility] | | | | | | [facility] | | | | | | MEDICAL | | | | | | CENTER - | | | | | | LABORATORY | | + + + + + + | MCH | 28.6 | 28.0 - 35.0 pg | [facility] [...] + + + | Platelet | 44 (L)Comment: SMALL | 140 - 440 K/uL | [facility] | | | Count | AMOUNT OF FIBRIN SEEN ON | | [facility] | | | | SMEAR WHICH MAY | | MEDICAL | | | | DECREASE PLATLET COUNT. | | CENTER - | | | | | | LABORATORY | | + + + + + + | FLAG | 1Comment: Leukopenia | | [facility] | | | | | | [facility] | | | | | | MEDICAL | | | | | | CENTER - | | | | | | LABORATORY | | + + + + + + | SUSPECTED | 1 (H)Comment: NE 2 | | [facility] | | | PROBLEM IS: | | | [facility] | | | | | | MEDICAL | | | | | | CENTER - | | | | | | LABORATORY | | + + + + + + | Total Cells | 50 | | [facility] | | | Counted | | | [facility] | | | | | | MEDICAL | | | | | | CENTER - | | | | | | LABORATORY | | + + + + + + | % Segmented | 34 (L) | 50 - 70 % | [...] + + + + | % | 22 | 20 - 40 % | [facility] | | | Lymphocytes | | | [facility] | | | | | | MEDICAL | | | | | | CENTER - | | | | | | LABORATORY | | + + + + + + | % Monocytes | 14 (H) | 1 - 6 % | [...] + + + + + + | Cbcman, % | 2 (H) | 0 % | [facility] | | | Immature | | | [facility] | | | Cells | | | MEDICAL | | | [...] + + + + | RBC | 3+ | | [facility] | | | Microcytes | | | [facility] | | | | | | MEDICAL | | | | | | CENTER - | | | | | | LABORATORY | | + + + + + + | Spherocytes | 2+ | | [facility] | | | | [...] + | [facility] | [address] | [place] | [phone] | | [facility] | | [address] | | | - LABORATORY | | | | + + + + + | [facility] | [address] | [place], [place] | | | [facility] | | [address], [facility] | | | - LABORATORY | | | | + + + + + ABO Rh (12/14/2011 2:56 PM PST) + +-------+ + + + [...] [address] | [place] | [phone] | | [facility] | | [address] | | | - LABORATORY | | | | + + + + + | [facility] | [address] | [place] | | | [facility] | | [address] | | | - LABORATORY | | | | + + + + + Antibody Screen, Tube Test (12/14/2011 2:56 PM PST) + + + + + [...] + | [facility] | [address] | [place], [place] | [phone] | | [facility] | | [address] | | | - LABORATORY | | | | + + + + + | [facility] | [address] | [place], [place] | | | [facility] | | [address] [place] [address] | | | - LABORATORY | | | | + + + + + ABO Rh (12/14/2011 2:56 PM PST) + + | Specimen | + + | | + + + + + + + | Performing | Address | City/State/Zipcode | Phone Number | | Organization | | | | + + + + + | [facility] | [address] | [place] | [phone] | | [facility] | | [address] | | | - LABORATORY | | | | + + + + + Product: LEXII (12/14/2011 12:19 PM PST) + + + + + [...] + + + | UNIT # | [id number] | | [facility] | | | | [...] + + + | UNIT RH | NEG | | [facility] | | | | | | [facility] | | | | | | MEDICAL | | | | | | CENTER - | | | | | | LABORATORY | | + + + + + + | Unit Status | TRANSFUSED | | [facility] | | | | [...] [address] | [place] | [phone] | | [facility] | | [address] | | | - LABORATORY | | | | + + + + + | [facility] | | | | | [facility] | | | | | - LABORATORY | | | | + + + + + Product: PRBC (12/14/2011 12:19 PM PST) + + + + + [...] + + + | UNIT # | [id number] | | [facility] | | | | [...] + + + | UNIT RH | NEG | | [facility] | | | | [...] [facility]. | [address] | [place] | [phone] | | [facility] | | [address] | | | - LABORATORY | | | | + + + + + | [facility] | | | | | [facility] | | | | | - LABORATORY | | | | + + + + + Product: PRBC (12/14/2011 12:19 PM PST) + + + + + [...] + + + | UNIT # | [id number] | | [facility] | | | | [...] [address] | [place] | [phone] | | [facility] | | [address] | | | - LABORATORY | | | | + + + + + | [facility] | | | | | [facility] | | | | | - LABORATORY | | | | + + + + + Product: PRBC (12/14/2011 12:19 PM PST) + + + + + [...] + + + | UNIT # | [id number] | | [facility] | | | | [...] [facility] | [address] | [place] | [phone] | | [facility] | | [address] | | | - LABORATORY | | | | + + + + + | [facility] | | | | | [facility] | | | | | - LABORATORY | | | | + + + + + Product: Platelet Pheresis (12/14/2011 12:19 PM PST) + + + + + [...] + + + | UNIT # | [id number] | | [facility] | | | | [...] + + + + + | [facility] | [address] | [place] | [phone] | | [facility] | | [address] | | | - LABORATORY | | | | + + + + + | [facility] | | | | | [facility] | | | | | - LABORATORY | | | | + + + + + documented in this encounter Visit Diagnoses Not on filedocumented in this encounter"
--- OUTSIDE RECORDS SUMMARY | ~2020-06-17 | XMS | Encounter Summary ---
Demographics + + + | Address | [address] | | | [place] [address] | + + + | Home Phone [...] Author + + + | Author | [facility] | + + + | Organization | [facility] | + + + | Address | Unknown | + + + | Phone | Unavailable | + + + Support + + + + + | Name | Relationship | Address | Phone | + + + + + | Yue Fischer | ECON | [address] | | | | | [place] | | | | | [address] | | + + + + + | [place] | ECON | Unknown | | + + + + + Care Team Providers + +------+ + | Care Clean In Places Operator Name | Role | Phone | + +------+ + | Becky Jennings | PCP | | + +------+ + Encounter Details +--------+ + + + + | Date | Type | Department | Care Team | Description | +--------+ + + + + | 12/11/ | Results | Center | Eunice Longo, | | | 2011 | Only | Hematologic | AN[facility] [address] | | | | | [facility] | [address] | | | | | [address] | [place], [place] | | | | | Loop Mailcode: | [address] | | | | | [id number] | [phone] | | | | | [address] [place], | | | | | | [place] [address] | | | | | | [phone] | | | +--------+ + + + [...] Accession | | | | | | #:[id number] study | | | | | | [...] stable | | | | | | [id number]. No suspicious | | | | | [...] | | + +---------+ + + | [facility] DEPARTMENT OF | | | | | RADIOLOGY | | | | + +---------+ + + documented in this encounter Visit Diagnoses Not on filedocumented in this encounter"
--- OUTSIDE RECORDS SUMMARY | ~2020-06-17 | XMS | Encounter Summary ---
Demographics + + + | Address | [address] | | | [place] [address] | + + + | Home Phone | | + + + | Preferred Language | Unknown | + + + | Marital Status | | + + + | Bahai Affiliation | Unknown | + + + | Race | or | + + + | Ethnic Group | Not or | + + + Author + + + | Author | [facility] | | | and [place] | + + + | Organization | [facility] | | | and [place] | [...] [place] | | | | | [address] | | + + + + + | Greta [place]cheau | ECON | [place] | | | | | [address] | | + + + + + Care Team Providers + +------+ + | Care Supervisor Sleeping Bag Department Name | Role | Phone | + +------+ + PCP | Unavailable | + +------+ + Encounter Details +--------+ + + + + | Date | Type | Department | Care Team | Description | +--------+ + + + + | 12/24/ | Hospital | [facility] | Thelma, | | | 2011 - | Encounter | MED CTR MED ONC | Antonio Infante MD [address] | | | | | [address] | [facility] | | | 12/29/ | | [place] [address] | [address] [place] | | | 2011 | | [phone] | [address] | | | | | | | [...] Frida Christian is a 51-year-old woman from [place], [place] with Burkitt' s lymphoma . She was admitted to [facility] on December 24, 2011 for cycle 2A [...] twice daily as needed for Suzette. 9. [place] 5/325 one or two tablets every 4 [...] She will see Dr. Renee at the [facility] o n January 04, 2012 at 1230 hours. At that point, we will re-access and flush her and redress her PICC line, and s he will also be instructed to be restart dexamethasone at 20 mg orally daily x4 days. DICTATED BY: Antonio Renee MD Oncology JOB #: [id number] EXT JOB #:[id number] cc: Dylan Martinez MD <Electronically Signed by Antonio Renee MD> 12/29/11 5914 documented in this encounter H&P Notes Antonio Renee MD - 12/24/2011 12:46 PM PSTDATE: 12/24/2011 IDENTIFYING STATEMENT: Frida Christian is a 51-year-old woman from [place], [place] with Bur miguel's lym phoma. ACTIVE DIAGNOSES 1. Presentation in August of 2011 with intractable searing abdominal pain. Symptoms progre ssed and o n October 05, 2011, she underwent advanced imaging that demonstrated diffuse mal ignant lymphadenopath y throughout the retroperitoneum. 2. Laparoscopic lymph node biopsy on November 10, 2011 at [facility] demonstrated a high-grade B c ell lympho ma consistent with Burkitt's lymphoma. Positive for BCL 6, CD10, CD19, CD20 and CD22. There was leroy a light chain restriction. Ignacio-Palmer virus was positive by in situ hypertization. Ki-67 fraction w as greater than 90%. 3. Cycle #1A of Rituxan/hyper CVAD chemotherapy was given at [facility] on November 15, 2011. 4. Cycle #1B of hyper CVAD chemotherapy was also given at the [facility] on December 02, 2011 and was complicated by grade 4 thrombocytopenia. CHIEF COMPLAINT: Frida Christian is admitted to [facility] on 2011 for cycle #2A of Rituxan/hyper CVAD chemotherapy. REVIEW OF SYSTEMS CONSTITUTIONAL: Denies high fevers, shaking chills, anorexia, nausea, and weight loss or ni ght sweats . ENMT: Denies odynophagia, dysphagia, tinnitus. CARDIOVASCULAR: Denies chest pains, palpitations, orthopnea. RESPIRATORY: Denies cough, hemoptysis, or sputum production. GASTROINTESTINAL: Positive for right upper quadrant pain. Denies melena or bright blood per rectum. GENITOURINARY: Denies hematuria or dysuria. MUSCULOSKELETAL: Denies joint pain or tenderness. 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 ENDOCRINE: Denies heat or cold intolerance, polyuria or polydipsia. HEMATOLOGIC: Denies spontaneous bruising or bleeding. PAST MEDICAL HISTORY: None. PAST SURGICAL HISTORY: section in 1981. PSYCHOSOCIAL HISTORY: Lives alone and independently in [place], [place]. She has 7 childr en. HABITS: Positive for tobacco use, positive for alcohol use. FAMILY HISTORY: There is no history of cancer in first-degree relatives. ROUTINE MEDICATIONS 1. Acyclovir 800 mg orally once daily. 2. Lomotil 2.5 mg orally as needed for diarrhea. 3. Marinol 5 mg orally 3 times daily. 4. Diflucan 200 mg orally twice daily. 5. [place] 5/325, 1 or 2 tablets every 4 hours as needed for pain. 6. Levaquin 500 mg orally daily. 7. Ativan 1 to 2 mg every 4 hours as needed for nausea, anxiety or restlessness. 8. Nystat in powder topically twice daily for rash. 9. Omeprazole 20 mg orally daily. 10. OxyContin 40 mg orally twice daily. 11. MiraLax 17 g orally as needed for constipation 12. Compazine 5 to 10 mg every 6 hours as needed for nausea. 13. Senna, 1 to 2 tablets as needed for nausea. 14. Septra DS 1 tablet orally twice daily on Tuesdays and only. ALLERGIES: MILK CAUSES DIARRHEA. PHYSICAL EXAMINATION VITAL SIGNS: Blood pressure 140/69, pulse 81, temperature 36.6 degenerative change Celsius , saturati on of oxygen 94% on room air. Weight is 84.5 kg. HEENT: Sclerae anicteric. The oropharynx free of lesions. NECK: Supple without thyromegaly. LUNGS: Clear to auscultation. CARDIOVASCULAR: Regular rate and rhythm. Normal S1, normal S2 without rubs, gallops or murm urs. ABDOMEN: Soft, nontender, nondistended with normal active bowel sounds. No hepatomegaly, no splenomeg annamarie. No ascites. LYMPH: Node survey there is no cervical, supraclavicular, axillary, or inguinal lymphadenop athy. MUSCULOSKELETAL: No joint tenderness or swelling. SKIN: Very hypersensitive, but no petechiae, ecchymoses or rash. EXTREMITIES: There is a double lumen right upper extremity PICC line that is clean, dry and intact. NEUROLOGIC: Awake and alert. Face symmetric, voice articulate. Station and gait within nor mal limits . LABORATORY DATA: White count 13,600 with 9200 neutrophils, which is likely related to recen t growth f actor stimulation. Hemoglobin is 9.9, hematocrit 29.2%, platelet count is 422,00 0. A comprehensive m etabolic panel is notable for a BUN of 5, creatinine of 0.6. Elevati ons of alkaline phosphatase at 1 19 (upper limits of normal 110) and LDH of 255 (upper limi ts of normal is 180) are likely related to hematopoietic recovery. There is evidence of pro tein and mineral malnutrition with a potassium of 3 ( lower limits of normal is 3.5), prote in is 5.8 (lower limits of normal is 6), albumin is 3.1 (lower l imits of normal 3.2). ASSESSMENT: BURKITT'S LYMPHOMA. PLAN: The patient will receive cycle #2A of Rituxan hyper CVAD chemotherapy. PROCEDURE NOTE: the patient signed informed consent for intrathecal methotrexate. She was placed in the left lateral decubitus position. Lumbar spine was cleaned and draped in the u sual sterile manner. Local anesthesia with 1% lidocaine was obtained. Several attempts at a lumbar puncture with a 20 ga uge needle were very uncomfortable for the patient and unsuc cessful at obtaining cerebral spinal flui d. The procedure was then re-attempted with a 22 gauge spinal needle. Again, very uncomfortab le for the patient in spite of local anesthesia and was unsuccessful in obtaining cerebral spinal fluid. Theref ore, the planed injection of intrathecal methotrexate was abandoned an d the patient will be scheduled for the procedure tomorrow in Radiology at 0920 hours for a 12 mg injection of intrathecal methotrex ate once the cerebral spinal space is cannulated by Interventional Radiology. DICTATED BY: Antonio Renee MD Oncology JOB #: [id number] EXT JOB #:[id number] cc: JING Soto-Naresh Martinez, [facility] <Electronically Signed by Adams Renee MD> 12/24/111931 documented in this encounter Plan of Treatment [...] + + + | White Blood | 8.8 (A) | 4.0 - 11.0 K/uL | [facility] | | [facility] | [facility] | [facility] | | | | | | MEDICAL | | | | | | CENTER - | | | | | | LABORATORY | | + + + + + + | Red Blood | 3.11 (L) | 3.70 - 5.20 [...] | | | Estimate | | | [facility] | | [...] [address] | [place] | [phone] | | [facility] | | [address] | | | - LABORATORY | | | | + + + + + | [facility] | [address] | [place], [place] | | | [facility] | | [address] | | | - LABORATORY [...] + | [facility] | [address] | [place], [place] | [phone] | | [facility] | | [address] | | | - LABORATORY | | | | + + + + + | [facility] | [address] | [place], [place] | | | [facility] | | [address], [facility] | | | - LABORATORY | | | | + + + + + [place] Lumbar Puncture (12/24/2011 12:46 PM PST) + + | Specimen | + + | | + + + + + | Narrative | Performed At | + + + | [facility] Diagnostic Imaging Department | [facility] | | [address] | [facility] | | LUMBAR PUNCTURE FOR | DIAG [...] administers the | | | intrathecal chemotherapy. [place] are then withdrawn and the | | | procedure is terminated. IMPRESSION: 1. UNEVENTFUL LUMBAR | | | PUNCTURE FOR INTRATHECAL CHEMOTHERAPY ADMINISTRATION. Dictated | | | Date/Time: 12/25/2011 14:50 Transcribed Date/Time: 12/25/2011 | | | 15:33 Electronic Wirer: <Electronically Signed by Jorge Luis Merlos | | | MD Jarrett> 12/26/11 0936 | | + + + + + | Procedure Note | + + | Philip Groves Conversion - 12/08/2013 4:48 PM [facility] | | Diagnostic Imaging Department | | [address] | | | | | [...] attendance, administers | | the intrathecal chemotherapy. [place] are then withdrawn and the procedure is | | terminated. | | | | IMPRESSION: | | 1. UNEVENTFUL LUMBAR PUNCTURE FOR INTRATHECAL CHEMOTHERAPY ADMINISTRATION. | | | | Dictated Date/Time: 12/25/2011 14:50 | | Transcribed Date/Time: 12/25/2011 15:33 | | Electronic Wirer: | | <Electronically Signed by Jorge Luis Farias MD> 12/26/11 0936 | + + + +---------+ + + | Performing | Address | City/State/Zipcode | Phone Number | | Organization | | | | + +---------+ + + | [place] | | | | | [facility] | | | | + +---------+ + + documented in this encounter Visit Diagnoses Not on filedocumented in this encounter
--- OUTSIDE RECORDS SUMMARY | ~2020-06-17 | XMS | Encounter Summary ---
Demographics + + + | Address | [address] | | | [place] [address] | + + + | Home Phone | | + + + | Preferred Language | Unknown | + + + | Marital Status | | + + + | Samaritan Affiliation | Unknown | + + + | Race | or | + + + | Ethnic Group | Not or | + + + Author + + + | Author | [facility] | | | and [place] | + + + | Organization | [facility] | | | and [place] [...] [place] | | | | | [address] | | + + + + + | Greta Broncheau | ECON | [place] | | | | | [address] | | + + + + + Care Team Providers + +------+ + | Care Rn Field Case Manager Name | Role | Phone | + +------+ + | No, Unknownpcp | PCP | | + +------+ + Encounter Details +--------+ + + + + | Date | Type | Department | Care Team | Description | +--------+ + + + + | 10/20/ | Hospital | [facility] | Thelma, | | | 2012 - | Encounter | MED CTR CANCER | Antonio Infante MD [address] | | | | | [address] | [facility] | | | 10/31/ | | [place] | [address] [place], [place] | | | 2011 | | [address] | [address] | | | | | [phone] | | | +--------+ + + + [...] | 03/25/20 | | | (VITAMIN D3) [address] | mouth Once a week. | | | 12 | 4 | | UNITS CAPS | | | | | | + + + +---------+ + + | Coenzyme I66-Idyp | one by mouth daily | | [...] + + + | White Blood | 8.2 | 4.0 - 11.0 K/uL | [facility] | | | Cells | | | [facility] | | | | | | MEDICAL | | | | | | CENTER - | | | | | | LABORATORY | | + + + + + + | Red Blood | 3.69 (L) | 3.70 - 5.20 [...] + | [facility] | [address] | [place], [place] | [phone] | | [facility] | | [address] | | | - LABORATORY | | | | + + + + + | [facility] | [address] | [place], [place] | | | [facility] | | [address] [place] [address] | | | - LABORATORY | | [...] + | [facility] | [address] | [place] | [phone] | | [facility] | | [address] | | | - LABORATORY | | | | + + + + + | [facility] | [address] | [place], [place] | | | [facility] | | [address], [facility] | | | - LABORATORY | | | | + + + + + Lactate Dehydrogenase (10/20/2012 1:14 PM PST) + +-------+ + + + | Component | Value | Ref Range | Performed | Pathologist | | | | | At | Signature | + +-------+ + + + | LDH TOTAL | 131 | 91 - 180 IU/L | ALIVIA [...] + | [facility] | [address] | [place] | [phone] | | [facility] | | [address] | | | - LABORATORY | | | | + + + + + | [facility] | [address] | [place] | | | [facility] | | [id number] [place] [address] | | | - LABORATORY | | | | + + + + + documented in this encounter Visit Diagnoses Not on filedocumented in this encounter"
--- OUTSIDE RECORDS SUMMARY | ~2020-06-17 | XMS | Encounter Summary ---
Demographics + + + | Address | [address] | | | [place] [address] | + + + | Home Phone [...] [facility] | | | and [...] [place] | | | | | [address] | | + + + + + | Greta Broncheau | ECON | [place] | | | | | [address] | | + + + + + Care Team Providers + +------+ + | Care Food Dehydrator Operator Name | Role | Phone | + +------+ + PCP | Unavailable | + +------+ + Encounter Details +--------+ + + + + | Date | Type | Department | Care Team | Description | +--------+ + + + + | 02/24/ | Hospital | [facility] | Thelma, | | | 2011 - | Encounter | MED CTR CANCER | Antonio Infante MD [address] | | | | | CENTER [address] | [facility] | | | 02/28/ | | [place] | [address] [place] | | | 2011 | | [address] | [address] | | | | | [phone] | | | +--------+ + + + [...] encounter Progress Notes Antonio Renee MD - 01/31/2012 3:45 AM PDTPROGRESS NOTE: 02/25/2012 IDENTIFYING STATEMENT: Frida Christian is a 51-year-old woman from [place], [place], with Burkitt's lymphoma. ACTIVE DIAGNOSES: 1. Presentation in August 2001, with intractable searing abdominal pain. Symptoms progre ssed and on October 05, 2011, she underwent advanced imaging that demonstrated diffuse malignant lymphadenopathy throughout the retroperitoneum. 2. Laparoscopic lymph node biopsy on November 10, 2011, at [facility], demonstrated a high grade B cell lymphoma, consistent with Burkitt's lymphoma, positive for BCL6, CD10, CD19, CD20, CD2 2, and kappa light chains. Ignacio-Palmer virus was positive by in situ hybridization, KI 67 f raction was greater than 90%. 3. Initiation of Rituxan/Hyper-CVAD chemotherapy at [facility] on November 15, 2011. CHIEF COMPLAINT: [...] echocardiogram. She will then return to se or[facility] nm to review the results of her studies [...] postpone additional treatment for further evaluation. CC: [facility] <Electronically Signed by Antonio Renee MD> 03/01/12 1603 Antonio Renee MD - 01/31/2012 3:45 AM PDTPROGRESS NOTE: 02/23/2012 IDENTIFYING STATEMENT: Frida Christian is a 51-year-old woman from [place], [place], with Burkitt's lymphoma. ACTIVE DIAGNOSES: 1. Presentation in August 2001, with intractable searing abdominal pain. Symptoms progre ssed and on October 05, 2011, she underwent advanced imaging that demonstrated diffuse malignant lymphadenopathy throughout the retroperitoneum. 2. Laparoscopic lymph node biopsy on November 10, 2011, at [facility], demonstrated a high grade B cell lymphoma, consistent with Burkitt's lymphoma, positive for BCL6, CD10, CD19, CD20, CD2 2, and kappa light chains. Ignacio-Palmer virus was positive by in situ hybridization, KI 67 f raction was greater than 90%. 3. Initiation of Rituxan/Hyper-CVAD chemotherapy at [facility] on November 15, 2011. CHIEF COMPLAINT: Frida Christian [facility] on February 23, 2012, at cycle no. 2B, day no. 41 of Rituxan/hyper-CVAD chemotherapy. INTERVAL HISTORY: Frida developed acute tubular necrosis and non-oliguric renal failure on day no. 26 of cycle no. 2B and this is currently being ascribed to vancomycin toxicity. She was emergently transferred to the [facility], where treatment was supportive only. Cycle no. [...] after cycle no. 2B and providers at [facility] are also ascrib ing this to [...] edema has improved substantially since her hospitalization [facility] [place]. NEUROLOGIC: Alert and oriented times three. [...] pages of documentation from Frida's admission the [facility] are reviewed: 1. Vancomycin-induced renal toxicity. Frida [...] her vancomycin exposure. 3. Cancer. Notes from [facility] are reviewed. The plan for cancer management is uncertain. She received a dose of Rituxan single infusion during her hospitalization at [facility]. It is uncertain whether or not this represents a cycle of her induction chemotherapy or if this was a mainten ance strategy. This was not specifically delineated in the 49 pages of documentation from [facility]. I trino ambrizdiana Portere my own opinion that any further chemotherapy [...] managem ent of her renal insufficiency. CC: [facility] Dr. Dylan Martinez, [facility] <Electronically Signed by Antonio Renee MD> 02/25/12 [...] 3.7 | 3.2 - 5.0 gm/dL | [facility] | | | | | [...] | 15.3 | 6.0 - 17.0 | [facility] | [...] + | [facility] | [address] | [place], [place] | [phone] | | [facility] | | [address] | | | - LABORATORY | | | | + + + + + | [facility] | [address] | [place] | | | [facility] | | [id number] [place] [address] | | | - LABORATORY | | [...] [address] | [place] | [phone] | | [facility] | | [address] | | | - LABORATORY | | | | + + + + + | [facility] | [address] | [place] | | | [facility] | | [address] | | | - LABORATORY | | | | + + + + + CBC with Differential (02/25/2012 12:42 PM PDT) + + + + + + | Component | Value | Ref Range | Performed | Pathologist | | | | | At | Signature | + + + + + + | White Blood | 10.4 | 4.0 - 11.0 K/uL [...] + | [facility] | [address] | [place] | [phone] | | [facility] | | [address] | | | - LABORATORY | | | | + + + + + | [facility] | [address] | [place] | | | [facility] | | [address] | | | - LABORATORY | | [...] | 14.8 | 6.0 - 17.0 | [facility] | [...] + | [facility] | [address] | [place] | [phone] | | [facility] | | [address] | | | - LABORATORY | | | | + + + + + | [facility] | [address] | [place], [place] | | | [facility] | | [id number] [place] [address] | | | - LABORATORY | | [...] [address] | [place] | [phone] | | [facility] | | [address] | | | - LABORATORY | | | | + + + + + | [facility] | [address] | [place] | | | [facility] | | [address], [facility] | | | - LABORATORY | | | | + + + + + CBC with Differential (02/23/2012 2:54 PM PDT) + + + + + + | Component | Value | Ref Range | Performed | Pathologist | | | | | At | Signature | + + + + + + | White Blood | 9.5 | 4.0 - 11.0 K/uL | [facility] | | | Cells | | | [facility] | | | | | | MEDICAL | | | | | | CENTER - | | | | | | LABORATORY | | + + + + + + | Red Blood | 3.62 (L) | 3.70 - 5.20 [...] + | [facility] | [address] | [place] | [phone] | | [facility] | | [address] | | | - LABORATORY | | | | + + + + + | [facility] | [address] | [place] | | | [facility] | | [address] [place] [address] | | | - LABORATORY | | | | + + + + + documented in this encounter Visit Diagnoses Not on filedocumented in this encounter"
--- OUTSIDE RECORDS SUMMARY | ~2020-06-17 | XMS | Encounter Summary ---
Demographics + + + | Address | [address] | | | [place] [address] | + + + | Home Phone | | + + + | Preferred Language | Unknown | + + + | Marital Status | | + + + | Methodist Affiliation | Unknown | + + + | Race | or | + + + | Ethnic Group | Not or | + + + Author + + + | Author | [facility] | | | and [place] | + + + | Organization | [facility] | | [...] [place] | | | | | [address] | | + + + + + | Greta Broncheau | ECON | [place] | | | | | [address] | | + + + + + Care Team Providers + +------+ + | Care Routeman Name | Role | Phone | + +------+ + PCP | Unavailable | + +------+ + Encounter Details +--------+ + + + + | Date | Type | Department | Care Team | Description | +--------+ + + + + | 06/28/ | Hospital | [facility] | Leann, | | | 2011 - | Encounter | [facility] | Antonio Infante MD [address] | | | | | CENTER [address] | [facility] | | | 07/01/ | | [place] | [address] [place] | | | 2011 | | [address] | [id number] | | | | | [phone] | | | +--------+ + + + [...] | 03/25/20 | | | (VITAMIN D3) 73317 | mouth Once a week. | | [...] Frida Christian is a 51-year-old woman from [place], [place] with Bu rkitt's lymphoma. ACTIVE DIAGNOSES: 1. Presentation in August of 2011 with intractable searing abdominal pain. Symptoms progr essed and on October 05, 2011, she underwent advanced imaging that demonstrated diffuse mal ignant lymphadenopathy throughout the retroperitoneum. 2. 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 Positive for BCL6, CD10, CD19, CD20, CD22, and kappa light chains. Ignacio-Ba rr virus was positive by in situ hybridization. KI 67 fraction was greater than 90%. 3. Initiation of Rituxan/Hyper-CVAD chemotherapy at [facility] on November 15, 2011. CHIEF COMPLAINT: [...] 1981. PSYCHOSOCIAL HISTORY: She lives independently in [place], [place]. HABITS: Tobacco: Positive for tobacco use. [...] uni ts orally once a week. 5. [place] 5/325, 1 or 2 tablets every 4-6 hours as needed for pain. 6. Dilaudid 2 mg every 4 hours as needed for pain. 7. Lisinopril 10 mg orally daily. 8. Ativan 1 mg every 4 hours as needed for nausea, anxiety, or restlessness. 9. Multivitam in once a day. 10. Sarver-3 fish oil 1 g orally daily. 11. [...] will proceed today with comprehensive reevaluation of Opal disease status wi th imaging, CT scan of chest, abdomen, and pelvis and bone marrow biopsy and aspiration. If this confirms complete remission, we will have her Port-A-Cath extirpated and cross over t o observation. However, if there is persistent disease we will refer her back to Dr. Evelyn colmenares at [facility] for consideration of salvage treatment options. [facility] for patient undergoing conscious sedation A. [...] No history of sleep apnea syndrome. C. [place] Society of Anesthesiology patient classification class I. [...] morning of the procedure and bring a national dedicated truck driver. cc: [facility] <Electronically Signed by Antonio Renee MD> 07/05/12 0840 Antonio Renee MD - 06/04/2012 4:54 AM PDTDOB: 1960 PROGRESS NOTE 06/20/2012 IDENTIFYING STATEMENT: Frida Christian is a 51-year-old woman from [place], [place] with Bu rkitt's lymphoma. ACTIVE DIAGNOSES: 1. Presentation in August of 2011 with intractable searing abdominal pain. Symptoms progr essed and on October 05, 2011, she underwent advanced imaging that demonstrated diffuse mal ignant lymphadenopathy throughout the retroperitoneum. 2. 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 Positive for BCL6, CD10, CD19, CD20, CD22, and kappa light chains. Ignacio-Ba rr virus was positive by in situ hybridization. KI 67 fraction was greater than 90%. 3. Initiation of Rituxan/Hyper-CVAD chemotherapy at [facility] on November 15, 2011. CHIEF COMPLAINT: Frida Christian returned to the [facility] on June 20, 2012, cycle #4B, day [...] Multivi tamin 1 tablet orally daily. 9. Sarver 3 fish oil 1 g orally daily. [...] platelet apheresis unit without adverse effects. cc: [facility] <Electronically Signed by Antonio Renee MD> 06/23/12 1427 Antonio Renee MD - 06/04/2012 4:54 AM PDTDOB: 1960 PROGRESS NOTE 06/21/2012 IDENTIFYING STATEMENT: Frida Christian is a 51-year-old woman from [place], [place] with Bu rkitt's lymphoma. ACTIVE DIAGNOSES: 1. Presentation in August of 2011 with intractable searing abdominal pain. Symptoms progr essed and on October 05, 2011, she underwent advanced imaging that demonstrated diffuse mal ignant lymphadenopathy throughout the retroperitoneum. 2. 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 Positive for BCL6, CD10, CD19, CD20, CD22, and kappa light chains. Ignacio-Ba rr virus was positive by in situ hybridization. KI 67 fraction was greater than 90%. 3. Initiation of Rituxan/Hyper-CVAD chemotherapy at [facility] on November 15, 2011. CHIEF COMPLAINT: [...] red blood cells without adverse effects. cc: [facility] <Electronically Signed by Antonio Renee MD> 06/23/12 0717 Antonio Renee MD - 06/04/2012 4:54 AM PDTPROGRESS NOTE 06/13/2012 IDENTIFYING STATEMENT: Frida Christian is a 51-year-old woman from [place], [place] with Bu rkitt's lymphoma. ACTIVE DIAGNOSES: 1. Presentation in August of 2011 with intractable searing abdominal pain. Symptoms progr essed and on October 05, 2011, she underwent advanced imaging that demonstrated diffuse mal ignant lymphadenopathy throughout the retroperitoneum. 2. 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 Positive for BCL6, CD10, CD19, CD20, CD22, and kappa light chains. Ignacio-Ba rr virus was positive by in situ hybridization. KI 67 fraction was greater than 90%. 3. Initiation of Rituxan/Hyper-CVAD chemotherapy at [facility] on November 15, 2011. CHIEF COMPLAINT: Frida Christian returned to the [facility] on June 13, 2012 cycle #4B day [...] Multivi tamin 1 tablet orally daily. 9. Sarver 3 fish oil 1 g orally daily. [...] Port-A-Cath removed [facility]. cc: [facility] <Electronically Signed by Antonio Renee MD> 06/14/12 1409 documented in this encounter Plan of Treatment [...] 12 | 7 - 18 mg/dL | [facility] | | | | | | [facility] | | | | | | MEDICAL | | | | | | CENTER - | | | | | | LABORATORY | | + + + + + + | Creatinine | 0.68 | 0.60 - 1.30 | [facility] | | | | | mg/dL | [...] + | [facility] | [address] | [place], [place] | [phone] | | [facility] | | [address] | | | - LABORATORY | | | | + + + + + | [facility] | [address] | [place], [place] | | | [facility] | | [address] | | | - LABORATORY | | | | + + + + + Lactate Dehydrogenase (06/28/2012 11:39 AM PDT) + +-------+ + + + | Component | Value | Ref Range | Performed | Pathologist | | | | | At | Signature | + +-------+ + + + | LDH TOTAL | 151 | 91 - 180 IU/L | [facility] [...] [address] | [place] | [phone] | | [facility] | | [address] | | | - LABORATORY | | | | + + + + + | [facility] | [address] | [place] | | | [facility] | | [address] | | | - LABORATORY | | | | + + + + + CBC with Differential (06/28/2012 11:39 AM PDT) + + + + + + | Component | Value | Ref Range | Performed | Pathologist | | | | | At | Signature | + + + + + + | White Blood | 4.4 | 4.0 - 11.0 K/uL | [facility] | | | Cells | | | [facility] | | | | | | MEDICAL | | | | | | CENTER - | | | | | | LABORATORY | | + + + + + + | Red Blood | 2.59 (L) | 3.70 - 5.20 [...] [address] | [place] | [phone] | | [facility] | | [address] | | | - LABORATORY | | | | + + + + + | [facility] | [address] | [place] | | | [facility] | | [address], [facility] [...] + | [facility] | [address] | [place] | [phone] | | [facility] | | [address] | | | - LABORATORY | | | | + + + + + | [facility] | [address] | [place], [place] | | | [facility] | | [address] | | | - LABORATORY [...] | | Screen | | | [facility] | | [...] [address] | [place] | [phone] | | [facility] | | [address] | | | - LABORATORY | | | | + + + + + | [facility] | [address] | [place] | | | [facility] | | [address], [facility] [...] + | [facility] | [address] | [place] | [phone] | | [facility] | | [address] | | | - LABORATORY | | [...] | 0.74 | 0.60 - 1.30 | [facility] | [...] | 9.2 | 6.0 - 17.0 | [facility] | [...] [address] | [place] | [phone] | | [facility] | | [address] | | | - LABORATORY | | | | + + + + + | [facility] | [address] | [place] | | | [facility] | | [address] | | | - LABORATORY | | | | + + + + + Lactate Dehydrogenase (06/20/2012 11:11 AM PDT) + +-------+ + + + | Component | Value | Ref Range | Performed | Pathologist | | | | | At | Signature | + +-------+ + + + | LDH TOTAL | 142 | 91 - 180 IU/L | [facility] [...] + | [facility] | [address] | [place], [place] | [phone] | | [facility] | | [address] | | | - LABORATORY | | | | + + + + + | [facility] | [address] | [place], [place] | | | [facility] | | [id number] [place] [address] | | | - LABORATORY | | | | + + + + + CBC with Differential (06/20/2012 11:11 AM PDT) + + + + + + | Component | Value | Ref Range | Performed | Pathologist | | | | | At | Signature | + + + + + + | White Blood | 4.5 | 4.0 - 11.0 K/uL | [facility] | | | Cells | | | [facility] | | | | | | MEDICAL | | | | | | CENTER - | | | | | | LABORATORY | | + + + + + + | Red Blood | 1.99 (L)Comment: | 3.70 - 5.20 | [facility] | | | Cells | HYPOCHROMIA 3+ --- | M/uL | [...] [facility] | | | | 1132 8-20-12 | | MEDICAL | | | | [...] IS: | Error, Specimen | | [facility] | | | | Repeated, Review Results [...] ST. | [address] | [place], [place] | [phone] | | [facility] | | [address] | | | - LABORATORY | | | | + + + + + | [facility] | [address] | [place] | | | [facility] | | [address] | | | - LABORATORY [...] + + + | UNIT # | [id number] | | [facility] | | | | [...] + | [facility] | [address] | [place], [place] | [phone] | | [facility] | | [address] | | | - LABORATORY | | | | + + + + + | [facility] | [address] | [place], [place] | | | [facility] | | [address] [place] [address] | | | - LABORATORY | | [...] + + + | UNIT # | [id number] | | [facility] | | | | [...] + | [facility] | [address] | [place] | [phone] | | [facility] | | [address] | | | - LABORATORY | | | | + + + + + | [facility] | [address] | [place], [place] | | | [facility] | | [address], [facility] [...] + + + | UNIT # | [id number] | | [facility] | | | | [...] + | [facility] | [address] | [place] | [phone] | | [facility] | | [address] | | | - LABORATORY | | | | + + + + + | [facility] | [address] | [place] | | | [facility] | | [address] | | | - LABORATORY [...] + | [facility] | [address] | [place] | [phone] | | [facility] | | [address] | | | - LABORATORY | | | | + + + + + | [facility] | [address] | [place] | | | [facility] | | [address] | | | - LABORATORY [...] + | [facility] | [address] | [place], [place] | [phone] | | [facility] | | [address] | | | - LABORATORY | | | | + + + + + | [facility] | [address] | [place], [place] | | | [facility] | | [address] [place] [address] | | | - LABORATORY | | | | + + + + + CBC with Differential (06/13/2012 10:09 AM PDT) + + + + + + | Component | Value | Ref Range | Performed | Pathologist | | | | | At | Signature | + + + + + + | White Blood | 21.1 (H) | 4.0 - 11.0 K/uL | [facility] | | | Cells | | | [facility] | | | | | | MEDICAL | | | | | | CENTER - | | | | | | LABORATORY | | + + + + + + | Red Blood | 2.63 (L) | 3.70 - 5.20 [...] | [facility] | | | | Left Shift | [...] + | [facility] | [address] | [place] | [phone] | | [facility] | | [address] | | | - LABORATORY | | | | + + + + + | [facility] | [address] | [place], [place] | | | [facility] | | [address], [facility] [...] + | [facility] | [address] | [place], [place] | [phone] | | [facility] | | [address] | | | - LABORATORY | | | | + + + + + | [facility] | [address] | [place], [place] | | | [facility] | | [address], [facility] [...] + | [facility] | [address] | [place] | [phone] | | [facility] | | [address] | | | - LABORATORY | | | | + + + + + | [facility] | [address] | [place] | | | [facility] | | [address] | | | - LABORATORY | | | | + + + + + CBC with Differential (06/06/2012 9:40 AM PDT) + + + + + + | Component | Value | Ref Range | Performed | Pathologist | | | | | At | Signature | + + + + + + | White Blood | 8.1 | 4.0 - 11.0 K/uL | [facility] | | | Cells | | [facility] | | | | | | [facility] | | | | | | CENTER - | | | | | | LABORATORY | | + + + + + + | Red Blood | 3.07 (L) | 3.70 - 5.20 [...] (H) | 0.0 - 0.4 K/uL | [facility] | | | Eosinophils | | | [facility] | | | | | | MEDICAL | | | | | | CENTER - | | | | | | LABORATORY | | + + + + + + | Absolute | 0.1 | 0.0 - 0.1 K/uL | [facility] | | | Basophils | | | [facility] | | | [...] [address] | [place] | [phone] | | [facility] | | [address] | | | - LABORATORY | | | | + + + + + | [facility] | [address] | [place] | | | [facility] | | [address] | | | - LABORATORY | | | | + + + + + documented in this encounter Visit Diagnoses Not on filedocumented in this encounter"
--- OUTSIDE RECORDS SUMMARY | ~2020-06-17 | XMS | Encounter Summary ---
Demographics + + + | Address | [address] | | | [place] [address] | + + + | Home Phone | | + + + | Preferred Language | Unknown | + + + | Marital Status | Single | + + + | Evangelical Affiliation | NON | + + + | Race | or | + + + | Ethnic Group | Not or | + + + Author + + + | Author | [facility] | + + + | Organization | [facility] | + + + | Address | Unknown | + + + | Phone | Unavailable | + + + Support + + + + + | Name | Relationship | Address | Phone | + + + + + | Yue Fischer | ECON | [address] | | | | | [place] | | | | | [address] | | + + + + + | Gre[place] | ECON | Unknown | | + + + + + Care Team Providers + +------+ + | Care Transmission Technician Name | Role | Phone | [...] + + | 11/09/ | Hospital | [facility] [address] | Osiel Rm MD | | | 2011 - | Encounter | [place] Mailcode: | [address] | | | | | [id number] | [place], [place] | | | 11/10/ | | [place], | [address] | | | 2011 | | [place] [address] | [phone] | | | | | [phone] | | | +--------+ + + + [...] follow up 11/24/2010 @ 11 AM at [facility] Vitals on discharge: Ht 162.6 cm [...] Heme-Onc (pending final path). OSIEL RM MD [facility] [address] [place], [place] [address] documented in this encoun ter [...] + +--------+ + + + | NON ENROLLED NURSE CYTOLOGY | Routin | 11/09/2011 | | Results for this | | | e | | | procedure are in the | | | | | | results section. | + +--------+ + + + | NON ENROLLED NURSE CYTOLOGY | Routin | 11/09/2011 | | Results for this | | | e | | | procedure are in the | | | | | | results section. | + +--------+ + + + | NON ENROLLED NURSE CYTOLOGY | Routin | 11/09/2011 | | Results for this | | | e | | | procedure are in the | | | | | | results section. | + +--------+ + + + | NON ENROLLED NURSE CYTOLOGY | Routin | 11/09/2011 | | [...] + + | DEIRDRE HENSLEY | [address] [facility] [facility] [facility] | [place], [place] | | | [facility] | [address] | [address] | | | TESTS | | | | + + + + + OPERATION RECORD (11/10/2011 7:37 AM PST) + + | Transcriptions | + + | Osiel Rm MD - 11/10/2011 7:31 AM PST [id number] | | [id number] HECTOR [place] | | [id number] Date: 11/09/2011 Attending Surgeon: Osiel Urban | | Cayetano Rm. Co-Surgeon: Chaparro Merino M.D.Laborer Aquatic Life(s): | | Preoperative Diagnosis(es):Retroperitoneal mass, possible lymphoma. [...] permanentsection. | | We inserted the suction wildlife protector and removed a low volumeascites completely. This [...] | was justified. Osiel Rm M.D.WALKER / [id number] / [id number] / [id number] / T: | | 11/09/2011 | |1. [...] permanent | |section. We inserted the suction wildlife protector and removed a low volume | |ascites [...] Rm M.D. | |JTV / HS | |[id number] / [id number] / [id number] / | | | | | | [...] MARQU[facility] | [address] | [place], [place] | | | [facility] | [address] | [address] | | | TESTS | | | [...] HENSLEY | [address] | [place], [place] | | | [facility] | [facility] | [address] | | | TESTS | | | [...] [facility] | [address] | [place], [place] | | | THERAPY | [address] | [address] | | + + + + + [...] + | DEIRDRE HENSLEY | [address] | [place], [place] | | | [facility] [facility] [place] | [address] | [address] | | | TESTS | | | [...] [facility]QU[facility] | [address] | [place], [place] | | | [facility] | [address] | [address] | | | TESTS | | | [...] [facility] | [address] | [place], [place] | | | [facility] | [address] | [address] | | | TESTS | | | [...] + + + + + | DEIRDRE HENLSEY | [address] | [place], [place] | | | [facility] | [address] | [address] | | | TESTS | | | [...] JUSTINAM | [address] | [place], [place] | | | [facility] | [address] | [address] | | | TESTS | | | [...] HENSLEY | [address] | [place], [place] | | | [facility] [place] | [facility] | [address] | | | TESTS | | | [...] SHELLIE | [address] | [place], [place] | | | [facility] | [address] | [address] | | | TESTS | | | [...] + + | Performing | Address | City[facility] | Phone Number | | Organization | | | | + + + + + | DEIRDRE - SHELLIE | [address] | [place], [place] | | | [facility] [place] | [address] | [address] | | | TESTS | | | [...] + + + + + | [facility] DEPARTMENT | [address] | [place] [address] | | | PATHOLOGY | [address] | | | + + + + + CAPILLARY BLOOD GLUCOSE, POC (11/09/2011 6:25 AM PST) + +-------+ + + + | Component | Value | Ref Range | Performed | Pathologist | | | | | At | Signature | + +-------+ + + + | BLOOD | 90 | 60 - 99 mg/dL | [facility] - | | | GLUCOSE, | [...] HENSLEY | 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 | | | | | | Rendering [...] + + + + | [facility] | [address] | [place] [address] | | | DIAGNOSTIC | [address] | | | | LABORATORIES | | | | + + + + + NON ENROLLED NURSE CYTOLOGY (11/09/2011) + + + + + + | Component | Value | Ref Range | Performed | Pathologist | | | | | At | Signature | + + + + + + | NON-ENROLLED NURSE | SOURCE OF SPECIMEN:A | | [facility] [...] [place] | | | | | | CT(ASCP)Master Barber | | | | | | Electronically [...] | + + + + + | [facility] | [address] | [place] [address] | | | PATHOLOGY | [address] | | | + + + + + NON ENROLLED NURSE CYTOLOGY (11/09/2011) + + + + + + | Component | Value | Ref Range | Performed | Pathologist | | | | | At | Signature | + + + + + + | NON-ENROLLED NURSE | SOURCE OF SPECIMEN:A | | [facility] [...] [place] | | | | | | CT(ASCP)Master Barber | | | | | | Electronically [...] | + + + + + | [facility] | [address] | [place] [address] | | | PATHOLOGY | [address] | | | + + + + + NON ENROLLED NURSE CYTOLOGY (11/09/2011) + + + + + + | Component | Value | Ref Range | Performed | Pathologist | | | | | At | Signature | + + + + + + | NON-ENROLLED NURSE | SOURCE OF SPECIMEN:A | | [facility] [...] [place] | | | | | | CT([place])Master Barber | | | | | | Electronically [...] | + + + + + | [facility] | [address] | [place] [address] | | | PATHOLOGY | [address] | | | + + + + + NON ENROLLED NURSE CYTOLOGY (11/09/2011) + + + + + + | Component | Value | Ref Range | Performed | Pathologist | | | | | At | Signature | + + + + + + | NON-ENROLLED NURSE | SOURCE OF SPECIMEN:A | | [facility] [...] [place] | | | | | | CT([place])Master Barber | | | | | | Electronically [...] | + + + + + | [facility] | [address] | [place] [address] | | | PATHOLOGY | [address] [...] | | | | | | CD10 [id number] CD22 | | | | | | CD23 CD25 CD34 CD38 CD45 | | | | | | [id number] | | | | | | sKappa [...] necessary | | | | | | [facility] | | | | | | and [...] | + + + + + | [facility] | [address] | [place] [address] | | | PATHOLOGY | [address] [...]
--- OUTSIDE RECORDS SUMMARY | ~2020-06-17 | XMS | Encounter Summary ---
Demographics + + + | Address | [address] | | | [place] [address] | + + + | Home Phone [...] Organization | [facility] | | | and [...] [place] | | | | | [address] | | + + + + + | Greta Broncheau | ECON | [place] | | | | | [address] | | + + + + + Care Team Providers + +------+ + | Care Instrumentation Manager Name | Role | Phone | + +------+ + PCP | Unavailable | + +------+ + Encounter Details +--------+ + + + + | Date | Type | Department | Care Team | Description | +--------+ + + + + | 04/11/ | Hospital | [facility] | [place], | | | 2011 - | Encounter | MED CTR MED ONC | Antonio Infante MD [address] | | | | | [address] | [facility] | | | 04/17/ | | [place] [address] | [address] [place] | | | 2011 | | [phone] | [address] | | | | | | | [...] encounter Discharge Summaries Antonio Renee MD - 04/11/2012 10:02 AM PDTADMISSION DATE: 04/11/2012 DISCHARGE DATE: 04/17/2012 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 PROCEDURES: Cycle #3B Rituxan/hyper-CVAD chemotherapy. COMPLICATIONS: None. CONSULTATIONS: None. 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 She was admitted to [facility], where her Port-A-Cath was accessed without any complications, a nd she beg an intravenous fluids and urinary alkalinization. On 04/11/2012, day #1 of chemotherapy, she was taken to the radiology suite, where she had a lumbar puncture performed and 100 mg of intrathecal cytarabine and preservative-f ree saline administe red by Dr. Renee. She then returned to the [address] [place] [address], where s he received 650 mg of oral Tyle nol, 25 mg of intravenous Benadryl, and 700 mg of intraveno us Rituxan. On 04/12/2012, day #2 of chemotherapy, she received 16 mg of oral Zofran, 20 mg of oral dexa methasone, 375 mg of intravenous methotrexate over 2 hours, which was immediatel y followed by a 22-ho ur infusion of 750 mg of intravenous methotrexate. On 04/13/2012, and day #3 of chemotherapy, she received 24 mg of oral Zofran, 20 mg of ora l dexamethasone, 50 mg of intravenous leucovorin that was administered at the co mpletion of her metho trexate. On , 04/14/2012, day #4 of chemotherapy, she received 24 mg of oral Zofran, 20 mg o f oral dex amethasone, and 1900 mg of intravenous cytarabine, given as a 2-hour infusion x2 doses. She also cont inue with leucovorin at 15 mg intravenously every 6 hours. On 04/15/2012, day #5 of chemotherapy, she received 24 mg of oral Zofran, 20 mg of oral dexam ethasone, 15 mg of intravenous leucovorin intravenously every 6 hours. On April 16 day #6 of chemotherapy, she received 15 mg of intravenous leucovorin e very 6 sha rs and 6 mg of subcutaneous Neulasta. Chemotherapy was complicated by some mild diarrhea, which was c ontrolled with Lomotil. PHYSICAL EXAMINATION VITAL SIGNS: Temperature was 36.6 degrees Celsius, blood pressure 145/79, pulse 64, respira tory rate 16, saturation of oxygen 95% on room air. A 24-hour input was 5141 mL, 24-hour ou tput was 6500 mL. HEENT: Sclerae was anicteric, the oropharynx free of lesions. NECK: Supple without thyromegaly. LUNGS: Clear to auscultation. CARDIOVASCULAR: Regular rate and rhythm. Normal S1, normal S2 without rubs, gallops, murmur s. CHEST: Her left anterior chest Port-A-Cath remained accessed throughout her hospitalization and was d e-accessed at the time of discharge without any complication. ABDOMEN: Soft, nontender, nondistended, no hepatomegaly, no splenomegaly. Bowel sounds pres ent in all 4 quadrants. SKIN: Without petechiae or ecchymoses. EXTREMITIES: Without cyanosis, clubbing, or edema. There had been no recurrence of paronych ia during the hospitalization. NEUROLOGIC: She was awake and alert. Face symmetric. Voice articulate. She was totally inde pendent of all the activities of her daily living in the hospital room. LABORATORY DATA: Hemoglobin was 8.6, hematocrit 23.8%, platelet count 139,000, white count 5700. Sodi um 137, potassium 3.6, chloride 100, CO2 30, BUN is 16, creatinine 0.66. Her glu cose was 83, magnesiu m was 2.4. DISCHARGE MEDICATIONS 1. Ativan 1 mg every 4 hours as needed for nausea, anxiety or restlessness. 2. Compazine 1 0 mg every 6 hours as needed for nausea. 3. Coreg 3.125 mg orally daily. 4. Lisinopril 10 mg orally daily. 5. Lomotil 1 tablet after each loose stool as needed for diarrhea. 6. MiraLax 17 grams as needed for constipation. 7. OxyContin 20 mg orally twice daily. 8. Prilosec 20 mg orally daily. 9. Senna 1 to 2 tablets as needed for constipation. 10. Vitamin D 50,000 units orally once a week. 11. Acyclovir 400 mg orally daily. No new prescriptions were given. FOLLOWUP: The patient had a followup appointment with Dr. Renee scheduled in the [facility] following her discharge. DICTATED BY: Antonio Renee MD Oncology JOB #: [id number] EXT JOB #:[id number] <Electronicall y Signed by Antonio Renee MD> 07/21/12 1444 documented in this encounter Medications at Time [...] | 03/25/20 | | | (VITAMIN D3) 35190 | mouth Once a week. | | [...] encounter H&P Notes Antonio Renee MD - 04/11/2012 10:02 AM PDTDATE: 04/11/2012 IDENTIFYING STATEMENT: Frida Christian is a 51-year-old woman from [place], [place] with Bur miguel lymph cornelia who is admitted to the [facility] in [place], [place] on 2011 for cycle 3B of Rituxan/hyper-CVAD chemotherapy. HISTORY OF PRESENT ILLNESS 1. Frida presented in 08/2011 with intractable searing abdominal pain. Symptoms progresse d and on 12/06/2010 she underwent advanced imaging that demonstrated diffuse malignant lym phadenopathy througho ut the retroperitoneum. 2. 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 Ki-67 fract ion was greater than 90%. 3. Initiation of Rituxan/hyper-CVAD chemotherapy began at [facility] and was continued at the [facility] in [place], initiation of therapy 11/15/2011. CHIEF COMPLAINT: Frida Christian is admitted to the [facility] in [place], [place] for cycle 3B of Rituxan/hyper-CVAD chemotherapy. REVIEW OF SYSTEMS CONSTITUTIONAL: Denies high fever, shaking chills, anorexia, nausea, weight loss, night swe ats or fat igue. ENMT: Denies odynophagia, dysphagia, tinnitus. CARDIOVASCULAR: Denies chest pains, palpitations or orthopnea. RESPIRATORY: Denies cough, hemoptysis or sputum production. GASTROINTESTINAL: Positive for diarrhea. No melena or bright blood per rectum. GENITOURINARY: Denies hematuria or dysuria. MUSCULOSKELETAL: She has had complete resolution of the left great toe pain from a paronych ia that wa s treated with antibiotics. NEUROLOGIC: Denies headaches, visual changes or numbness or tingling in extremities. ENDOCRINE: Denies peripheral edema, heat or cold intolerance, polyuria or polydipsia. HEMATOLOGIC: Denies spontaneous bruising or bleeding. PAST MEDICAL HISTORY: Treatment-related congestive heart failure, currently under the care of Dr. George Polo at the [facility], [place], [place] , with Rhoda and fabrizio biggs. Other past medical history notable for the fact that she had an episode of acute renal failur e following excessive doses of vancomycin with cycle #2B o f her chemotherapy. PAST SURGICAL HISTORY: Status section 1981, status post left anterior chest Port-A -Cath. PSYCHOSOCIAL HISTORY: She lives alone independently in [place], [place]. She has a very la rge and mares pportive family support system within the [facility] system. HABITS: Positive for tobacco use, positive for cannabis use, positive for remote history of alcohol u se. FAMILY HISTORY: There is no history of cancer in first-degree relatives. CURRENT MEDICATIONS 1. Acyclovir at 400 mg orally once daily; however, this will be boosted to twice daily for more effec tive prophylaxis against herpes zoster. 2. Coreg 3.125 mg orally twice daily. 3. Lomotil 1 tablet after each loose stool as needed for diarrhea. 4. Vitamin D 50,000 uni ts orally once a week. 5. Lisinopril 10 mg orally daily. 6. Ativan 1 mg every 4 hours as needed for nausea, anxiety or restlessness. 7. Prilosec 20 mg orally daily. 8. OxyContin 20 mg orally twice daily. 9. MiraLax 17 grams as needed for constipation. 10. Compazine 10 mg every 6 hours as needed for nausea. 11. Senna 1 to 2 tablets as needed for constipation. 12. [place] 5/325 one to two tablets every 4 hours as needed for breakthrough pain. ALLERGIES: NO KNOWN DRUG ALLERGIES. SHE HAD RENAL FAILURE WITH EXCESSIVE DOSES OF VANCOMYCI N. SHE HAS CUTANEOUS SENSITIVITY TO METAL. PHYSICAL EXAMINATION VITAL SIGNS: Blood pressure is 93/59, pulse 74, temperature is 36.3 degrees Celsius, satura tion 95% o n room air. Weight 82.5 kilograms. HEENT: Sclerae is anicteric. The oropharynx is free of lesions. NECK: Supple without thyromegaly. LUNGS: Clear to auscultation. CARDIOVASCULAR exam Regular rate and rhythm. Normal S1, normal S2 without rubs, gallops or murmurs. CHEST: Left anterior chest Port-A-Cath was accessed with a Silver needle and brisk blood ret urn was do cumented. ABDOMEN: Soft, nontender, nondistended. No hepatomegaly, no splenomegaly. Bowel sounds pres ent in all 4 quadrants. SKIN: Without petechiae or ecchymoses. EXTREMITIES: Without cyanosis, clubbing, or edema. She has had complete resolution of her l eft great toe paronychia. NEUROLOGIC: Awake, alert. Face symmetric. Voice articulate. Station and gait within normal limits. LABORATORY DATA: Hemoglobin is 8.6, hematocrit 24.4%, platelet count is 165,000, white coun t is 5300. Her comprehensive metabolic panel is notable for an alkaline phosphatase of 112, upper limits of nor mal 110. This is probably related to hematopoietic recovery. Her LDH i s normal at 118 units per mL, u pper limits of normal is 180. The rest of her metabolic mtz el is normal, including a normal BUN of 17 , normal creatinine of 0.79. ASSESSMENT BURKITT'S LYMPHOMA. PLAN: Frida will now be directed to report to admitting for admission to Radiology where she will u ndergo a lumbar puncture, and I will administer 100 mg of cytarabine and preserv ative-free saline. Ynes ortiz will then be admitted to room 311 for her cycle 3B of Rituxan/hyper -CVAD chemotherapy. DICTATED BY: Antonio Renee MD Oncology JOB #: [id number] EXT JOB #:[id number] cc: JING Soto-C <Electronically Signed by Antonio Renee MD> 04/11/12 1350 documented in this encounter Miscellaneous Notes Op Note - Antonio Renee MD - 04/11/2012 10:02 AM PDTDATE: 04/11/2012 PROCEDURE: Intrathecal administration of chemotherapy. After the patient underwent a lumbar puncture under fluoroscopy by Radiology Department, I administer ed 100 mg of cytarabine and preservative-free saline and removed the spinal need le without adverse ef fects. DICTATED BY: Antonio Renee MD Oncology JOB #: [id number] EXT JOB #:[id number] <Electronicall y Signed by Antonio Renee MD> 04/11/12 1350 documented in this encounter Plan of Treatment Not on filedocumented as of this encounter Procedures + +--------+ + + + | Procedure Name | Priori | Date/Time | Associated Diagnosis | Comments | | | ty | | | | + +--------+ + + + | METHOTREXATE LEVEL | Routin | 04/17/2012 | | Results for this | | | e | 6:26 AM | | procedure are in the | | | | PDT | | results section. | + +--------+ + + + | CBC WITH | Routin | 04/17/2012 | | Results for this | | DIFFERENTIAL | e | 6:26 AM | | procedure are in the | | | | PDT | | results section. | + +--------+ + + + | MAGNESIUM | Routin | 04/17/2012 | | Results for this | | | e | 6:26 AM | | procedure are in the | | | | PDT | | results section. | + +--------+ + + + | COMPREHENSIVE | Routin | 04/17/2012 | | Results for this | | METABOLIC PANEL | e | 6:26 AM | | procedure are in the | | | | PDT | | results section. | + +--------+ + + + | METHOTREXATE LEVEL | Routin | 04/16/2012 | | Results for this | | | e | 7:41 AM | | procedure are in the | | | | PDT | | results section. | + +--------+ + + + | CBC WITH | Routin | 04/16/2012 | | Results for this | | DIFFERENTIAL | e | 7:41 AM | | procedure are in the | | | | PDT | | results section. | + +--------+ + + + | MAGNESIUM | Routin | 04/16/2012 | | Results for this | | | e | 7:41 AM | | procedure are in the | | | | PDT | | results section. | + +--------+ + + + | COMPREHENSIVE | Routin | 04/16/2012 | | Results for this | | METABOLIC PANEL | e | 7:41 AM | | procedure are in the | | | | PDT | | results section. | + +--------+ + + + | ABO RH | Routin | 04/15/2012 | | Results for this | | | e | 6:43 AM | | procedure are in the | | | | PDT | | results section. | + +--------+ + + + | ABO RH | Routin | 04/15/2012 | | | | | e | 6:43 AM | | | | | | PDT | | | + +--------+ + + + | METHOTREXATE LEVEL | Routin | 04/15/2012 | | Results for this | | | e | 6:43 AM | | procedure are in the | | | | PDT | | results section. | + +--------+ + + + | CBC WITH | Routin | 04/15/2012 | | Results for this | | DIFFERENTIAL | e | 6:43 AM | | procedure are in the | | | | PDT | | results section. | + +--------+ + + + | ANTIBODY SCREEN | Routin | 04/15/2012 | | Results for this | | | e | 6:43 AM | | procedure are in the | | | | PDT | | results section. | + +--------+ + + + | MAGNESIUM | Routin | 04/15/2012 | | Results for this | | | e | 6:43 AM | | procedure are in the | | | | PDT | | results section. | + +--------+ + + + | COMPREHENSIVE | Routin | 04/15/2012 | | Results for this | | METABOLIC PANEL | e | 6:43 AM | | procedure are in the | | | | PDT | | results section. | + +--------+ + + + | CROSSMATCH (IN ML) | Routin | 04/15/2012 | | Results for this | | | e | 6:00 AM | | procedure are in the | | | | PDT | | results section. | + +--------+ + + + | CROSSMATCH (IN ML) | Routin | 04/15/2012 | | Results for this | | | e | 6:00 AM | | procedure are in the | | | | PDT | | results section. | + +--------+ + + + | URINALYSIS, REFLEX | Routin | 04/14/2012 | | Results for this | | MICROSCOPIC AND/OR | e | 9:32 AM | | procedure are in the | | CULTURE | | PDT | | results section. | + +--------+ + + + | METHOTREXATE LEVEL | Routin | 04/14/2012 | | Results for this | | | e | 6:20 AM | | procedure are in the | | | | PDT | | results section. | + +--------+ + + + | CBC WITH | Routin | 04/14/2012 | | Results for this | | DIFFERENTIAL | e | 6:20 AM | | procedure are in the | | | | PDT | | results section. | + +--------+ + + + | MAGNESIUM | Routin | 04/14/2012 | | Results for this | | | e | 6:20 AM | | procedure are in the | | | | PDT | | results section. | + +--------+ + + + | COMPREHENSIVE | Routin | 04/14/2012 | | Results for this | | METABOLIC PANEL | e | 6:20 AM | | procedure are in the | | | | PDT | | results section. | + +--------+ + + + | UA, MICROSCOPIC, | Routin | 04/13/2012 | | Results for this | | REFLEX | e | 9:33 AM | | procedure are in the | | | | PDT | | results section. | + +--------+ + + + | URINALYSIS, REFLEX | Routin | 04/13/2012 | | Results for this | | MICROSCOPIC AND/OR | e | 9:33 AM | | procedure are in the | | CULTURE | | PDT | | results section. | + +--------+ + + + | METHOTREXATE LEVEL | Routin | 04/13/2012 | | Results for this | | | e | 7:19 AM | | procedure are in the | | | | PDT | | results section. | + +--------+ + + + | CBC WITH | Routin | 04/13/2012 | | Results for this | | DIFFERENTIAL | e | 7:19 AM | | procedure are in the | | | | PDT | | results section. | + +--------+ + + + | MAGNESIUM | Routin | 04/13/2012 | | Results for this | | | e | 7:19 AM | | procedure are in the | | | | PDT | | results section. | + +--------+ + + + | COMPREHENSIVE | Routin | 04/13/2012 | | Results for this | | METABOLIC PANEL | e | 7:19 AM | | procedure are in the | | | | PDT | | results section. | + +--------+ + + + | URINALYSIS, REFLEX | Routin | 04/12/2012 | | Results for this | | MICROSCOPIC AND/OR | e | 11:37 AM | | procedure are in the | | CULTURE | | PDT | | results section. | + +--------+ + + + | METHOTREXATE LEVEL | Routin | 04/12/2012 | | Results for this | | | e | 5:32 AM | | procedure are in the | | | | PDT | | results section. | + +--------+ + + + | CBC WITH | Routin | 04/12/2012 | | Results for this | | DIFFERENTIAL | e | 5:32 AM | | procedure are in the | | | | PDT | | results section. | + +--------+ + + + | MAGNESIUM | Routin | 04/12/2012 | | Results for this | | | e | 5:32 AM | | procedure are in the | | | | PDT | | results section. | + +--------+ + + + | COMPREHENSIVE | Routin | 04/12/2012 | | Results for this | | METABOLIC PANEL | e | 5:32 AM | | procedure are in the | | | | PDT | | results section. | + +--------+ + + + | FL LUMBAR PUNCTURE | | 04/11/2012 | | Results for this | | DIAGNOSTIC | | 10:02 AM | | procedure are in the | | | | PDT | | results section. | + +--------+ + + + documented in this encounter Results Methotrexate Level (04/17/2012 6:26 AM PDT) + + + + + [...] | | | | | | Performed: [facility] | | | | | | [facility] | | | | | | [place], [address], | | | | | | [place] [address] | | | | | | CLIA: [id number] | | | | + + + + + + + + | Specimen | + + | | + + + + + + + | Performing | Address | City/State/Zipcode | Phone Number | | Organization | | | | + + + + + | [facility] | [address] | [place] | [phone] | | [facility] | | [address] | | | - LABORATORY | | | | + + + + + | [facility] | [address] | [place], [place] | | | [facility] | | [address], [facility] | | | - LABORATORY | | | | + + + + + Comprehensive Metabolic Panel (04/17/2012 6:26 AM PDT) + + + + + [...] + + + + | Calcium | 8.3 | 8.3 - 10.5 | [facility] | | | | | mg/dL | [facility] | | | | | | MEDICAL | | | | | | CENTER - | | | | | | LABORATORY | | + + + + + + | Alkaline | 83 | 40 - 110 IU/L | [facility] [...] + + + + | ALT | 41 | 6 - 45 IU/L | [facility] | | | | | | [facility] | | | | | | MEDICAL | | | | | | CENTER - | | | | | | LABORATORY | | + + + + + + | Bilirubin | 1.3 (H) | 0.2 - 1.0 mg/dL | [facility] | | | Total | | | [facility] | | | | | | MEDICAL | | | | | | CENTER - | | | | | | LABORATORY | | + + + + + + | Total | 4.7 (L) | 6.0 - 7.8 gm/dL | [...] + + | BUN/Creatin | 19.0 | 12 - 20 | [facility] | | | ine Ratio | | | [facility] | | | | | | MEDICAL [...] + + + | Anion Gap | 9.0 | 6.0 - 17.0 | [facility] | [...] + | [facility] | [address] | [place], [place] | [phone] | | [facility] | | [address] | | | - LABORATORY | | | | + + + + + | [facility] | [address] | [place], [place] | | | [facility] | | [facility], [facility] | | | - LABORATORY | | | | + + + + + Magnesium (04/17/2012 6:26 AM PDT) + +-------+ + + + | Component | Value | Ref Range | Performed | Pathologist | | | | | At | Signature | + +-------+ + + + | Magnesium | 2.4 | 1.8 - 2.5 mg/dL | [facility] [...] + | [facility] | [address] | [place], [place] | [phone] | | [facility] | | [address] | | | - LABORATORY | | | | + + + + + | [facility] | [address] | [place], [place] | | | [facility] | | [id number] | | | - LABORATORY | | | | + + + + + CBC with Differential (04/17/2012 6:26 AM PDT) + + + + + + | Component | Value | Ref Range | Performed | Pathologist | | | | | At | Signature | + + + + + + | White Blood | 15.0 (H) | 4.0 - 11.0 K/uL | [facility] | | | Cells | | | [facility] | | | | | | MEDICAL | | | | | | CENTER - | | | | | | LABORATORY | | + + + + + + | Red Blood | 2.45 (L) | 3.70 - 5.20 | [facility] | | | Cells | | M/uL | [facility] | | | | [...] + + + + | Hematocrit | 22.9 (L) | 34.0 - 47.0 % | [facility] | | | | | | [facility] | | | | | | MEDICAL | | | | | | CENTER - | | | | | | LABORATORY | | + + + + + + | MCV | 93.4 | 83.0 - 101.0 fL | [facility] [...] + + | MCHC | 35.1 | 32.0 - 36.0 | [facility] | [...] + + + + | Platelet | 106 (L) | 140 - 440 K/uL | [facility] | | | Count | | | [facility] | | | | | | MEDICAL | | | | | | CENTER - | | | | | | LABORATORY | | + + + + + + | % | 93.7 (H) | 45 - 75 % | [facility] | | | Neutrophils | | | [facility] | | | | | | MEDICAL | | | | | | CENTER - | | | | | | LABORATORY | | + + + + + + | % | 3.5 (L) | 20 - 45 % | [...] + + + + | % | 2.6 | 0 - 5 % | [facility] [...] + + + + | Absolute | 14.0 (H) | 1.5 - 6.6 K/uL | [...] + + | SUSPECTED | 1 (H)Comment: Left Shift | | [facility] | | | PROBLEM [...] + | [facility] | [address] | [place], [place] | [phone] | | [facility] | | [address] | | | - LABORATORY | | | | + + + + + | [facility] | [address] | [place], [place] | | | [facility] | | [address], [facility] | | | - LABORATORY | | | | + + + + + Methotrexate Level (04/16/2012 7:41 AM PDT) + + + + + + | Component | Value | Ref Range | Performed | Pathologist | | | | | At | Signature | + + + + + + | Methotrexat | <0.05Comment: | () umol/L | [facility] | | | e Level | Interpretation depends | | [facility] | | | | on dosing and draw times | | MEDICAL | | | | as well as target | | CENTER - | | | | level for the disease | | LABORATORY | | | | being treated. Testing | | | | | | Performed: [facility] | | | | | | [facility] | | | | | | [place], [address], | | | | | | [place] [address] | | | | | | CLIA: [id number] | | | | + + + + + + + + | Specimen | + + | | + + + + + + + | Performing | Address | City/State/Zipcode | Phone Number | | Organization | | | | + + + + + | [facility] | [address] | [place] | [phone] | | [facility] | | [address] | | | - LABORATORY | | | | + + + + + | [facility] | [address] | [place] Vasquez [place] | | | [facility] | | [address] | | | - LABORATORY | | | | + + + + + Comprehensive Metabolic Panel (04/16/2012 7:41 AM PDT) + + + + + + | Component | Value | Ref Range | Performed | Pathologist | | | | | At | Signature | + + + + + + | Glucose | 83 | 70 - 109 mg/dL | [facility] | | | | | | [facility] | | | | | | MEDICAL | | | | | | CENTER - | | | | | | LABORATORY | | + + + + + + | Calcium | 8.3 | 8.3 - 10.5 | [facility] | | | | | mg/dL | [facility] | | | | | | MEDICAL | | | | | | CENTER - | | | | | | LABORATORY | | + + + + + + | Alkaline | 82 | 40 - 110 IU/L | [facility] [...] + + + + | ALT | 39 (A) | 6 - 45 IU/L | [facility] | | | | | | [facility] | | | | | | MEDICAL | | | | | | CENTER - | | | | | | LABORATORY | | + + + + + + | Bilirubin | 1.3 (H) | 0.2 - 1.0 mg/dL | [...] 3.3 | 3.2 - 5.0 gm/dL | [facility] | | | | | | [facility] | | | | | | MEDICAL | | | | | | CENTER - | | | | | | LABORATORY | | + + + + + + | BUN | 16 | 7 - 18 mg/dL | [facility] | | | | | | [facility] | | | | | | MEDICAL | | | | | | CENTER - | | | | | | LABORATORY | | + + + + + + | Creatinine | 0.66 | 0.60 - 1.30 | [facility] | [...] + + + + | BUN/Creatin | 24.2 (H) | 12 - 20 | [facility] [...] + + + | Anion Gap | 10.6 | 6.0 - 17.0 | [facility] | [...] + | [facility] | [address] | [place], [place] | [phone] | | [facility] | | [address] | | | - LABORATORY | | | | + + + + + | [facility] | [address] | [place], [place] | | | [facility] | | [id number] | | | - LABORATORY | | | | + + + + + Magnesium (04/16/2012 7:41 AM PDT) + +-------+ + + + | Component | Value | Ref Range | Performed | Pathologist | | | | | At | Signature | + +-------+ + + + | Magnesium | 2.4 | 1.8 - 2.5 mg/dL | [facility] [...] [address] | [place] | [phone] | | [facility] | | [address] | | | - LABORATORY | | | | + + + + + | [facility] | [address] | [place] | | | [facility] | | [id number] [facility] | | - LABORATORY | | | | + + + + + CBC with Differential (04/16/2012 7:41 AM PDT) + + + + + + | Component | Value | Ref Range | Performed | Pathologist | | | | | At | Signature | + + + + + + | White Blood | 5.7 | 4.0 - 11.0 K/uL | [facility] | | | Cells | | | [facility] | | | | | | MEDICAL | | | | | | CENTER - | | | | | | LABORATORY | | + + + + + + | Red Blood | 2.57 (L) | 3.70 - 5.20 | [facility] [...] + + + + | Hematocrit | 23.8 (L) | 34.0 - 47.0 % | [facility] | | | | | | [facility] | | | | | | MEDICAL | | | | | | CENTER - | | | | | | LABORATORY | | + + + + + + | MCV | 92.8 | 83.0 - 101.0 fL | [facility] | | | | | | [facility] | | | | | | [facility]ICAL | | | | | | CENTER - | | | | | | LABORATORY | | + + + + + + | MCH | 33.4 [...] + + + + | Platelet | 139 (L) | 140 - 440 K/uL | [facility] | | | Count | | | [facility] | | | | | | MEDICAL | | | | | | CENTER - | | | | | | LABORATORY | | + + + + + + | % | 89.8 (H) | 45 - 75 % | [facility] | | | Neutrophils | | | [facility] | | | | | | MEDICAL | | | | | | CENTER - | | | | | | LABORATORY | | + + + + + + | % | 7.8 (L) | 20 - 45 % | [facility] | | | Lymphocytes | | | [facility] | | | | | | MEDICAL | | | | | | CENTER - | | | | | | LABORATORY | | + + + + + + | % Monocytes | 0.3 (L) | 4 - 12 % | [facility] | | | | | | [facility] | | | | | | MEDICAL | | | | | | CENTER - | | | | | | LABORATORY | | + + + + + + | % | 1.9 | 0 - 5 % | [facility] [...] + | [facility] | [address] | [place] | [phone] | | [facility] | | [address] | | | - LABORATORY | | | | + + + + + | [facility] | [address] | [place] | | | [facility] | | [address] | | | - LABORATORY | | | | + + + + + ABO Rh (04/15/2012 6:43 AM PDT) + +-------+ + + + | Component | Value | Ref Range | Performed | Pathologist | | | | | At | Signature | + +-------+ + + + | ABO | AP | | [facility] | | | | | | [facility] | | | | | | MEDICAL [...] + | [facility] | [address] | [place], [place] | [phone] | | [facility] | | [address] | | | - LABORATORY | | | | + + + + + | [facility] | [address] | [place], [place] | | | [facility] | | [address], [facility] | | | - LABORATORY | | | | + + + + + Antibody Screen (04/15/2012 6:43 AM PDT) + + + + [...] + | [facility] | [address] | [place], [place] | [phone] | | [facility] | | [address] | | | - LABORATORY | | | | + + + + + | [facility] | [address] | [place], [place] | | | [facility] | | [address] [place] [address] | | | - LABORATORY | | | | + + + + + ABO Rh (04/15/2012 6:43 AM PDT) + + | Specimen | + + | | + + + + + + + | Performing | Address | City/State/Zipcode | Phone Number | | Organization | | | | + + + + + | [facility] | [address] | [place] | [phone] | | [facility] | | [address] | | | - LABORATORY | | | | + + + + + Comprehensive Metabolic Panel (04/15/2012 6:43 AM PDT) + + + + + + | Component | Value | Ref Range | Performed | Pathologist | | | | | At | Signature | + + + + + + | Glucose | 97 | 70 - 109 mg/dL | [facility] [...] + + + + | Alkaline | 76 | 40 - 110 IU/L | [facility] [...] + + + | Bilirubin | 0.7 (A) | 0.2 - 1.0 mg/dL | [...] 13 | 7 - 18 mg/dL | [facility] | | | | | | [facility] | | | | | | MEDICAL | | | | | | CENTER - | | | | | | LABORATORY | | + + + + + + | Creatinine | 0.52 (L) | 0.60 - 1.30 | [facility] | | | | | mg/dL | [facility] | | | | | | MEDICAL | | | | | | CENTER - | | | | | | LABORATORY | | + + + + + + | Estimated | >60Comment: For | >60 mL/min/A | [facility] | | | GFR | -Americans, | [...] + + + + | BUN/Creatin | 25.0 (H) | 12 - 20 | [facility] [...] + + + | Anion Gap | 12.3 | 6.0 - 17.0 | [facility] | [...] + | [facility] | [address] | [place] | [phone] | | [facility] | | [address] | | | - LABORATORY | | | | + + + + + | [facility] | [address] | [place], [place] | | | [facility] | | [address], [facility] | | | - LABORATORY | | | | + + + + + Magnesium (04/15/2012 6:43 AM PDT) + +---------+ + + + | Component | Value | Ref Range | Performed | Pathologist | | | | | At | Signature | + +---------+ + + + | Magnesium | 1.5 (L) | 1.8 - 2.5 mg/dL | [facility] | | | | | | [facility] | | | | | | MEDICAL | | | | | | CENTER - | | | | | | LABORATORY | | + +---------+ + + + + + | Specimen | + + | | + + + + + + + | Performing | Address | City/State/[facility] | Phone Number | | Organization | | | | + + + + + | [facility] | [address] | [place] | [phone] | | [facility] | | [address] | | | - LABORATORY | | | | + + + + + | [facility] | [address] | [place] | | | [facility] | | [address], [facility] | | | - LABORATORY | | | | + + + + + Methotrexate Level (04/15/2012 6:43 AM PDT) + + + + + + | Component | Value | Ref Range | Performed | Pathologist | | | | | At | Signature | + + + + + + | Methotrexat | <0.05Comment: | () umol/L | [facility] | | | e Level | Interpretation depends | | [facility] | | | | on dosing and draw times | | MEDICAL | | | | as well as target | | CENTER - | | | | level for the disease | | LABORATORY | | | | being treated. Testing | | | | | | Performed: [facility] | | | | | | [facility] | | | | | | [place], [address], | | | | | | [place] [address] | | | | | | CLIA: [id number] | | | | + + + + + + + + | Specimen | + + | | + + + + + + + | Performing | Address | City/State/Zipcode | Phone Number | | Organization | | | | + + + + + | [facility] | [address] | [place], [place] | [phone] | | [facility] | | [address] | | | - LABORATORY | | | | + + + + + | [facility] | [address] | [place], [place] | | | [facility] | | [id number] [place] [address] | | | - LABORATORY | | | | + + + + + CBC with Differential (04/15/2012 6:43 AM PDT) + + + + [...] + + + | Red Blood | 2.04 (L) | 3.70 - 5.20 | [facility] [...] + + + + | Hematocrit | 19.4 (LL)Comment: | 34.0 - 47.0 % | [...] TIFFANY | | | | | | LADONNA 04/15/12 @0708 by | | | | | | [...] + + + + | MCV | 94.9 [...] + + + + | Platelet | 155 | 140 - 440 K/uL | [facility] | | | Count | | | [facility] | | | | | | MEDICAL | | | | | | CENTER - | | | | | | LABORATORY | | + + + + + + | % | 86.4 (H) | 45 - 75 % | [facility] | | | Neutrophils | | | [facility] | | | | | | MEDICAL | | | | | | CENTER - | | | | | | LABORATORY | | + + + + + + | % | 10.8 (L) | 20 - 45 % | [facility] | | | Lymphocytes | | | [facility] | | | | | | MEDICAL | | | | | | CENTER - | | | | | | LABORATORY | | + + + + + + | % Monocytes | 1.1 (L) | 4 - 12 % | [facility] | | | | | | [facility] | | | | | | MEDICAL | | | | | | CENTER - | | | | | | LABORATORY | | + + + + + + | % | 1.6 | 0 - 5 % | [facility] [...] + + + + | Absolute | 5.0 | 1.5 - 6.6 K/uL | [facility] [...] + + | SUSPECTED | 1 (H)Comment: TEST | | [facility] | | | PROBLEM IS: | REPEATED, CRITICAL | | [facility] | | | | RESULT-PHONE RESULTS | | MEDICAL | | | [...] + | [facility] | [address] | [place], [place] | [phone] | | [facility] | | [address] | | | - LABORATORY | | | | + + + + + | [facility] | [address] | [place], [place] | | | [facility] | | [address], [facility] | | | - LABORATORY | | | | + + + + + Product: PRBC (04/15/2012 6:00 AM PDT) + + + + [...] + + + | UNIT # | [id number] | | [facility] | | | | [...] + | [facility] | [address] | [place] | [phone] | | [facility] | | [address] | | | - LABORATORY | | | | + + + + + | [facility] | | | | | [facility] | | | | | - LABORATORY | | | | + + + + + Product: LEXII (04/15/2012 6:00 AM PDT) + + + + [...] + + + | UNIT # | [id number] | | [facility] | | | | [...] [address] | [place] | [phone] | | [facility] | | [address] | | | - LABORATORY | | | | + + + + + | [facility] | | | | | [facility] | | | | | - LABORATORY | | | | + + + + + Urinalysis, Reflex Microscopic and/or Culture (04/14/2012 9:32 AM PDT) + + + + + + | Component | Value | Ref Range | Performed | Pathologist | | | | | At | Signature | + + + + + + | COLLECTION | VOID | | [facility] | | | METHOD 1 | | [facility] | | | | | | MEDICAL | | | | | | CENTER - | | | | | | LABORATORY | | + + + + + + | Color, | LIGHT YELLOW | | [facility] | | | Urine | | | [facility] | | | | | | MEDICAL | | | | | | CENTER - | | | | | | LABORATORY | | + + + + + + | Clarity, | CLEAR | | [facility] | | | Urine [...] + + + + | Specific | <=1.005 | 1.001 - 1.030 | [facility] | | | [place], | | | [facility] | | | Urine | | | MEDICAL | | | | | | CENTER - | | | | | | LABORATORY | | + + + + + + | Blood, | NEGATIVE | NEGATIVE | [facility] | | | Urine | | | [facility] | | | | | | MEDICAL | | | | | | CENTER - | | | | | | LABORATORY | | + + + + + + | pH, Urine | 6.5 | 5.0 - 8.0 | [facility] | | | | | | [facility] | | | | | | MEDICAL | | | | | | CENTER - | | | | | | LABORATORY | | + + + + + + | Protein, | NEGATIVE | NEGATIVE mg/dL | [facility] [...] + + + + | MICROSCOPIC | NO | | [facility] | | | ? [...] + | [facility] | [address] | [place], [place] | [phone] | | [facility] | | [address] | | | - LABORATORY | | | | + + + + + | [facility] | [address] | [place], [place] | | | [facility] | | [id number] [place] [address] | | | - LABORATORY | | | | + + + + + Comprehensive Metabolic Panel (04/14/2012 6:20 AM PDT) + + + + + [...] + + + + | Calcium | 8.3 | 8.3 - 10.5 | [facility] | [...] + + + + | ALT | 24 | 6 - 45 IU/L | [facility] [...] + + + + | Creatinine | 0.66 | 0.60 - 1.30 | [facility] | [...] + + + + | BUN/Creatin | 19.7 | 12 - 20 | [facility] | [...] + + + | Anion Gap | 8.5 | 6.0 - 17.0 | [facility] | [...] [address] | [place] | [phone] | | [facility] | | [address] | | | - LABORATORY | | | | + + + + + | [facility] | [address] | [place] | | | [facility] | | [address], [facility] | | | - LABORATORY | | | | + + + + + Magnesium (04/14/2012 6:20 AM PDT) + +---------+ + + + | Component | Value | Ref Range | Performed | Pathologist | | | | | At | Signature | + +---------+ + + + | Magnesium | 1.6 (L) | 1.8 - 2.5 mg/dL | [facility] [...] + | [facility] | [address] | [place], [place] | [phone] | | [facility] | | [address] | | | - LABORATORY | | | | + + + + + | [facility] | [address] | [place], [place] | | | [facility] | | [address], [facility] | | | - LABORATORY | | | | + + + + + Methotrexate Level (04/14/2012 6:20 AM PDT) + + + + + + | Component | Value | Ref Range | Performed | Pathologist | | | | | At | Signature | + + + + + + | Methotrexat | 0.22Comment: | () umol/L | [facility] | | [...] | | | | | | Performed: [facility] | | | | | | [facility] | | | | | | [place], [address], | | | | | | [place] [address] | | | | | | CLIA: [id number] | | | | + + + + + + + + | Specimen | + + | | + + + + + + + | Performing | Address | City/State/Zipcode | Phone Number | | Organization | | | | + + + + + | [facility] | [address] | [place] | [phone] | | [facility] | | [address] | | | - LABORATORY | | | | + + + + + | [facility] | [address] | [place], [place] | | | [facility] | | [id number] [place] [address] | | | - LABORATORY | | | | + + + + + CBC with Differential (04/14/2012 6:20 AM PDT) + + + + + + | Component | Value | Ref Range | Performed | Pathologist | | | | | At | Signature | + + + + + + | White Blood | 5.3 | 4.0 - 11.0 K/uL | [facility] | | | Cells | | | [facility] | | | | | | MEDICAL | | | | | | CENTER - | | | | | | LABORATORY | | + + + + + + | Red Blood | 2.15 (L) | 3.70 - 5.20 | [facility] [...] | . [facility] | | | | ALERT VALUE [...] | | | | | | NOTIFICATION? y 04/14/12 | | | | | | @0643 by [email or web address] | | | | | | Clinical [...] + + + + | Hematocrit | 20.3 (L) | 34.0 - 47.0 % | [facility] | | | | | | [facility] | | | | | | MEDICAL | | | | | | CENTER - | | | | | | LABORATORY | | + + + + + + | MCV | 94.8 | 83.0 - 101.0 fL | [facility] [...] + + + + | Platelet | 164 | 140 - 440 K/uL | [facility] | | | Count | | | [facility] | | | | | | MEDICAL | | | | | | CENTER - | | | | | | LABORATORY | | + + + + + + | % | 73.9 | 45 - 75 % | [facility] [...] + + + | % Monocytes | 8.3 | 4 - 12 % | [facility] | | | | | | [facility] | | | | | | MEDICAL | | | | | | CENTER - | | | | | | LABORATORY | | + + + + + + | % | 3.0 | 0 - 5 % | [facility] [...] + + | Absolute | 0.8 | 0.6 - 3.2 K/uL | [facility] [...] + + | SUSPECTED | 1 (H)Comment: TEST | | [facility] | | | PROBLEM IS: | REPEATED, CRITICAL | | [facility] | | | | RESULT-PHONE RESULTS | | MEDICAL | | | [...] [address] | [place] | [phone] | | [facility] | | [address] | | | - LABORATORY | | | | + + + + + | [facility] | [address] | [place], [place] | | | [facility] | | [address] | | | - LABORATORY | | | | + + + + + UA, Microscopic, Reflex (04/13/2012 9:33 AM PDT) + +-------+ + + + | Component | Value | Ref Range | Performed | Pathologist | | | | | At | Signature | + +-------+ + + + | White Blood | 0-2 | 0 - 1 /hpf | [facility] | | | Cells, | | | [facility] | | | Urine | | | MEDICAL | | | | | | CENTER - | | | | | | LABORATORY | | + +-------+ + + + | Red Blood | 2-4 | 0 - 4 /hpf | [facility] | | | Cells, | | | [facility] | | | Urine | | | MEDICAL | | | | | | CENTER - | | | | | | LABORATORY | | + +-------+ + + + | Squamous | RARE | FEW /hps | [facility] | | | Epithelial | | | [facility] | | | Cells, | | | MEDICAL | | | Urine | | | CENTER - | | | | | | LABORATORY | | + +-------+ + + + | Bacteria, | RARE | NONE /hpf | [facility] | | | Urine | | | [facility] | | | | | | MEDICAL | | | | | | CENTER - | | | | | | LABORATORY | | + +-------+ + + + | Culture | NO [...] + | [facility] | [address] | [place] | [phone] | | [facility] | | [address] | | | - LABORATORY | | | | + + + + + | [facility] | [address] | [place] | | | [facility] | | [address] | | | - LABORATORY | | | | + + + + + Urinalysis, Reflex Microscopic and/or Culture (04/13/2012 9:33 AM PDT) + + + + + [...] + + + + | Color, | LIGHT YELLOW | | [facility] | | | Urine | | | [facility] | | | | | | MEDICAL | | | | | | CENTER - | | | | | | LABORATORY | | + + + + + + | Clarity, | CLEAR | | [facility] | | | Urine [...] + + + + | Specific | 1.015 | 1.001 - 1.030 | [facility] | | | [place], | | | [facility] | | | Urine | | | MEDICAL | | | | | | CENTER - | | | | | | LABORATORY | | + + + + + + | Blood, | TRACE-INTACT | NEGATIVE | [facility] | | | [...] + + + + | Protein, | NEGATIVE | NEGATIVE mg/dL | [facility] [...] | | | Urine | | | [facility] | | | | | | MEDICAL | | | | | | CENTER - | | | | | | LABORATORY | | + + + + + + | Leukocyte | NEGATIVE | NEGATIVE | [facility] | | | Esterase, | | | [facility] | | | Urine | | | MEDICAL | | | | | | CENTER - | | | | | | LABORATORY | | + + + + + + | MICROSCOPIC | YES | | [facility] | | | ? | | | [facility] | | [...] + | [facility] | [address] | [place], [place] | [phone] | | [facility] | | [address] | | | - LABORATORY | | | | + + + + + | [facility] | [address] | [place], [place] | | | [facility] | | [address], [facility] | | | - LABORATORY | | | | + + + + + Methotrexate Level (04/13/2012 7:19 AM PDT) + + + + + + | Component | Value | Ref Range | Performed | Pathologist | | | | | At | Signature | + + + + + + | Methotrexat | 5.33Comment: | () umol/L | [facility] | | [...] | | | | | | Performed: [facility] | | | | | | [facility] | | | | | | [place], [address], | | | | | | [place] [address] | | | | | | CLIA: [id number] | | | | + + + + + + + + | Specimen | + + | | + + + + + + + | Performing | Address | City/State/Zipcode | Phone Number | | Organization | | | | + + + + + | [facility] | [address] | [place] | [phone] | | [facility] | | [address] | | | - LABORATORY | | | | + + + + + | [facility] | [address] | [place] | | | [facility] | | [address] | | | - LABORATORY | | | | + + + + + Comprehensive Metabolic Panel (04/13/2012 7:19 AM PDT) + + + + + [...] + + + | AST | 18 (A) | 10 - 42 IU/L | [...] + + + + | BUN | 7 | 7 - 18 mg/dL | [facility] | | | | | | [facility] | | | | | | MEDICAL | | | | | | CENTER - | | | | | | LABORATORY | | + + + + + + | Creatinine | 0.58 (L) | 0.60 - 1.30 | [facility] | [...] + + + + | BUN/Creatin | 12.1 | 12 - 20 | [facility] | | | ine Ratio | | | [facility] | | | | | | MEDICAL | | | | | | CENTER - | | | | | | LABORATORY | | + + + + + + | Na | 142 | 136 - 149 mEq/L | [facility] [...] + | [facility] | [address] | [place], [place] | [phone] | | [facility] | | [address] | | | - LABORATORY | | | | + + + + + | [facility] | [address] | [place], [place] | | | [facility] | | [address] | | | - LABORATORY | | | | + + + + + Magnesium (04/13/2012 7:19 AM PDT) + +---------+ + + + | Component | Value | Ref Range | Performed | Pathologist | | | | | At | Signature | + +---------+ + + + | Magnesium | 1.7 (L) | 1.8 - 2.5 mg/dL | [facility] | | | | [...] [address] | [place] | [phone] | | [facility] | | [address] | | | - LABORATORY | | | | + + + + + | [facility] | [address] | [place] | | | [facility] | | [address] | | | - LABORATORY | | | | + + + + + CBC with Differential (04/13/2012 7:19 AM PDT) + + + + + [...] + + + | Red Blood | 2.33 (L) | 3.70 - 5.20 | [facility] [...] + + + + | Hematocrit | 22.2 (L) | 34.0 - 47.0 % | [...] + + + + | Platelet | 173 | 140 - 440 K/uL | [facility] [...] + + + + | % | 13.4 (L) | 20 - 45 % | [facility] | | | Lymphocytes | | | [facility] | | | | | | MEDICAL | | | | | | CENTER - | | | | | | LABORATORY | | + + + + + + | % Monocytes | 12.0 | 4 - 12 % | [facility] | | | | | | [facility] | | | | | | MEDICAL | | | | | | CENTER - | | | | | | LABORATORY | | + + + + + + | % | 3.2 | 0 - 5 % | [facility] [...] + + + | Absolute | 4.1 (A) | 1.5 - 6.6 K/uL | [facility] | | | Neutrophils | | | [facility] | | | | | | MEDICAL | | | | | | CENTER - | | | | | | LABORATORY | | + + + + + + | Absolute | 0.8 | 0.6 - 3.2 K/uL | [facility] [...] + | [facility] | [address] | [place] | [phone] | | [facility] | | [address] | | | - LABORATORY | | | | + + + + + | [facility] | [address] | [place] | | | [facility] | | [address] | | | - LABORATORY | | | | + + + + + Urinalysis, Reflex Microscopic and/or Culture (04/12/2012 11:37 AM PDT) + + + + + + | Component | Value | Ref Range | Performed | Pathologist | | | | | At | Signature | + + + + + + | COLLECTION | VOID | | [facility] | | | METHOD 1 | | | [facility] | | [...] + + + + | Clarity, | CLEAR | | [facility] | | | Urine [...] + + + + | Specific | <=1.005 | 1.001 - 1.030 | [facility] | | | [place], | | | [facility] | | | Urine | | | MEDICAL | | | | | | CENTER - | | | | | | LABORATORY | | + + + + + + | Blood, | NEGATIVE | NEGATIVE | [facility] | [...] + + + + | Protein, | NEGATIVE | NEGATIVE mg/dL | [facility] [...] + + + + | MICROSCOPIC | NO | | [facility] | | | ? | | | [facility] | | | | | | MEDICAL [...] + | [facility] | [address] | [place] | [phone] | | [facility] | | [address] | | | - LABORATORY | | | | + + + + + | [facility] | [address] | [place], [place] | | | [facility] | | [address], [facility] | | | - LABORATORY | | | | + + + + + Comprehensive Metabolic Panel (04/12/2012 5:32 AM PDT) + + + + + + | Component | Value | Ref Range | Performed | Pathologist | | | | | At | Signature | + + + + + + | Glucose | 90 | 70 - 109 mg/dL | [facility] | | | | | | [facility] | | | | | | MEDICAL | | | | | | CENTER - | | | | | | LABORATORY | | + + + + + + | Calcium | 8.3 | 8.3 - 10.5 | [facility] | [...] + + + | AST | 12 | 10 - 42 IU/L | [facility] [...] | | | | | mg/dL | . [facility] | | | | [...] + + + | Anion Gap | 6.6 | 6.0 - 17.0 | [facility] | [...] + | [facility] | [address] | [place] | [phone] | | [facility] | | [address] | | | - LABORATORY | | | | + + + + + | [facility] | [address] | [place], [place] | | | [facility] | | [id number] | | | - LABORATORY | | | | + + + + + Magnesium (04/12/2012 5:32 AM PDT) + +---------+ + + + | Component | Value | Ref Range | Performed | Pathologist | | | | | At | Signature | + +---------+ + + + | Magnesium | 1.7 (L) | 1.8 - 2.5 mg/dL | [facility] | | | | | | [facility] | | | | | [...] + | [facility] | [address] | [place], [place] | [phone] | | [facility] | | [address] | | | - LABORATORY | | | | + + + + + | [facility] | [address] | [place], [place] | | | [facility] | | [address] [place] [address] | | | - LABORATORY | | | | + + + + + Methotrexate Level (04/12/2012 5:32 AM PDT) + + + + + + | Component | Value | Ref Range | Performed | Pathologist | | | | | At | Signature | + + + + + + | Methotrexat | <0.05Comment: | () umol/L | [facility] | | | e Level | Interpretation depends | | [facility] | | | | on dosing and draw times | | MEDICAL | | | | as well as target | | CENTER - | | | | level for the disease | | LABORATORY | | | | being treated. Testing | | | | | | Performed: [facility] | | | | | | [facility] | | | | | | [place], [address], | | | | | | [place] [address] | | | | | | CLIA: [id number] | | | | + + + + + + + + | Specimen | + + | | + + + + + + + | Performing | Address | City/State/Zipcode | Phone Number | | Organization | | | | + + + + + | [facility] | [address] | [place], [place] | [phone] | | [facility] | | [address] | | | - LABORATORY | | | | + + + + + | [facility] | [address] | [place] | | | [facility] | | [id number] [place] [address] | | | - LABORATORY | | | | + + + + + CBC with Differential (04/12/2012 5:32 AM PDT) + + + + + + | Component | Value | Ref Range | Performed | Pathologist | | | | | At | Signature | + + + + + + | White Blood | 3.7 (L) | 4.0 - 11.0 K/uL | [...] + + + + | Hematocrit | 22.1 (L) | 34.0 - 47.0 % | [...] + + + + | Platelet | 149 | 140 - 440 K/uL | [facility] | | | Count | | | [facility] | | | | | | MEDICAL | | | | | | CENTER - | | | | | | LABORATORY | | + + + + + + | % | 57.2 | 45 - 75 % | [facility] | | | Neutrophils | | | [facility] | | | | | | MEDICAL | | | | | | CENTER - | | | | | | LABORATORY | | + + + + + + | % | 19.9 (L) | 20 - 45 % | [...] + + + + | % | 8.3 (H) | 0 - 5 % | [...] + + | Absolute | 2.1 | 1.5 - 6.6 K/uL | [facility] [...] + | [facility] | [address] | [place], [place] | [phone] | | [facility] | | [address] | | | - LABORATORY | | | | + + + + + | [facility] | [address] | [place], [place] | | | [facility] | | [address], [facility] | | | - LABORATORY | | | | + + + + + FL Lumbar Puncture (04/11/2012 10:02 AM PDT) + + | Specimen | + + | | + + + + + | Narrative | Performed At | + + + | [facility] | [id number] HOSPITAL | | [address] [facility] | [facility] | | SPINE INJECTION THERAPEUTIC, | DIAG IMG | | 04/01/2011 CLINICAL HISTORY: INTRATHECAL INJECTION. 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 PROCEDURE: The risks, benefits, indications, | | | and alternatives to the procedure were discussed with the patient in | | | advance. Informed consent was obtained and documented. A formal | | | timeout was take to correctly identify the patient by name and date | | | of and identify the expected intervention as a lumbar | | | puncture for injection of chemotherapy. Using fluoroscopic guidance, | | | the vertebral anatomy was identified. The L3 vertebral body was | | | chosen as access point for interlaminar injection. Skin entrance | | | site was marked. It was then prepped and draped in the usual | | | sterile manner. Local anesthesia was obtained at the skin surface | | | and deep into the spinal soft tissues with 1% lidocaine without | | | epinephrine. Using a 22-gauge 3.5-inch spinal needle, the thecal sac | | | was accessed interlaminar over the L3 level. Prompt return of CSF | | | fluid confirmed intrathecal positioning of the needle tip. | | | Thelma was present and performed the intrathecal | | | chemotherapeutic injection, again using sterile technique. No | | | difficulty. The needle was removed and hemostasis was achieved at | | | the skin entrance site. The procedure was well tolerated and there | | | were no immediate complications. The patient was transferred to the | | | care of Dr. Renee in stable condition. IMPRESSION: | | | 1. SUCCESSFUL FLUOROSCOPICALLY-GUIDED LUMBAR PUNCTURE FOR | | | INTRATHECAL CHEMOTHERAPY ADMINISTRATION. Dictated Date/Time: | | | 04/11/2012 14:30 Transcribed Date/Time: 04/11/2012 15:20 | | | Cable Tower Operator: <Electronically Signed by Vance Holland, | | | MD> 04/12/12 1444 | | + + + + + | Procedure Note | + + | Philip Groves Conversion - 12/08/2013 5:30 PM [facility] | | Diagnostic Imaging Department | | [address] Pedro MD | | | | | | | | SPINE INJECTION THERAPEUTIC, 04/01/2011 | | | | CLINICAL HISTORY: INTRATHECAL INJECTION. HISTORY OF BURKITT'S TUMOR. | | | | PROCEDURE: The risks, benefits, indications, and alternatives to the procedure | | were discussed with the patient in advance. Informed consent was obtained and | | documented. A formal timeout was take to correctly identify the patient by | | name and date of and identify the expected intervention as a lumbar | | puncture for injection of chemotherapy. Using fluoroscopic guidance, the | | vertebral anatomy was identified. The L3 vertebral body was chosen as access | | point for interlaminar injection. Skin entrance site was marked. It was then | | prepped and draped in the usual sterile manner. Local anesthesia was obtained | | at the skin surface and deep into the spinal soft tissues with 1% lidocaine | | without epinephrine. Using a 22-gauge 3.5-inch spinal needle, the thecal sac | | was accessed interlaminar over the L3 level. Prompt return of CSF fluid | | confirmed intrathecal positioning of the needle tip. Dr. Renee was | | present and performed the intrathecal chemotherapeutic injection, again using | | sterile technique. No difficulty. The needle was removed and hemostasis was | | achieved at the skin entrance site. The procedure was well tolerated and there | | were no immediate complications. The patient was transferred to the care of | | Dr. Renee in stable condition. | | | | IMPRESSION: | | 1. SUCCESSFUL FLUOROSCOPICALLY-GUIDED LUMBAR PUNCTURE FOR INTRATHECAL | | CHEMOTHERAPY ADMINISTRATION. | | | | Dictated Date/Time: 04/11/2012 14:30 | | Transcribed Date/Time: 04/11/2012 15:20 | | Cable Tower Operator: [email or web address] | | <Electronically Signed by Vance Holland MD> 04/12/12 1444 | + + + +---------+ + + [...]
--- OUTSIDE RECORDS SUMMARY | ~2020-06-17 | XMS | Encounter Summary ---
Demographics + + + | Address | [address] | | | [place] [address] | + + + | Home Phone | | + + + | Preferred Language | Unknown | + + + | Marital Status | Single | + + + | Nondenominational Affiliation | NON | + + + | Race | or | + + + | Ethnic Group | Not or | + + + Author + + + | Author | [facility] | + + + | Organization | [facility] | + + [...] [place] | | | | | [address] | | + + + + + | Greta Broncheau | ECON | Unknown | | + + + + + Care Team Providers + +------+ + | Care Hand Binder Cutter Name | Role | Phone | + [...] Ave | | | | | [facility] | [place], [place] | | | | | Health and Healing, | [address] | | | | | Building [address] | [phone] | | | | | [place], [place] | | | | | | [address] | | | | | | [phone] | | | +--------+ + + + [...]
--- OUTSIDE RECORDS SUMMARY | ~2020-06-17 | XMS | Encounter Summary ---
Demographics + + + | Address | [address] | | | [place] [address] | + + + | Home Phone | | + + + | Preferred Language | Unknown | + + + | Marital Status | | + + + | Nondenominational Affiliation | Unknown | + + + | Race | or | + + + | Ethnic Group | Not or | + + + Author + + + | Author | [facility] | | | and [place] | + + + | Organization | [facility] | | | and [place] | + + + | Address | Unknown | + + + | Phone | Unavailable | + + + Support + + + + + | Name | Relationship | Address | Phone | + + + + + | Yue Fischer | ECON | [address] | | | | | [place] | | | | | [address] | | + + + + + | Greta Broncheau | ECON | [place] | | | | | [address] | | + + + + + Care Team Providers + +------+ + | Care Dental Appliance Mechanic Name | Role | Phone | + +------+ + | Becky Jennings | PCP | | + +------+ + Reason for Referral Evaluate & Treat (Routine) +--------+ + + + + + | Status | Reason | Specialty | Diagnoses / | Referred By | Referred To | | | | | Procedures | Contact | Contact | +--------+ + + + + + | Closed | Specialty | Gastroenterol | Diagnoses | | You, | | | Services | ogy | Hemorrhage | Marilu, | Vance Ceballos MD | | | Required | | of rectum | [place], | [address], | | | | | and anus | [facility] [address] | [address] | | | | | Procedures | [address] | [place], | | | | | [place] | [address] | [place] [address] | | | | | COLONOSCOPY, | [place], | Phone: | | | | | DIAGNOSTIC | [place] [address] | [phone] | | | | | [place] | Phone: | Fax: | | | | | COLONOSCOPY, | [phone] | [phone] | | | | | BIOPSY | Fax: | | | | | | | [phone] | | +--------+ + + + + + Reason for Visit + + + | Reason | Comments | + + + | Colon Cancer | | | Screening | | + + + Evaluate & Treat (Routine) +--------+--------+ + + + + | Status | Reason | Specialty | Diagnoses / | Referred By | Referred To | | | | | Procedures | Contact | Contact | +--------+--------+ + + + + | Closed | | Nurse | Diagnoses | [facility] | [facility], | | | | Practitioner | colon | Medical | [place]ricia, | | | | / | screen/ pcp | Oncology | [facility] [address] | | | | Gastroenterol | [place]/ | [address] | [address] | | | | ogy | Dee - | [address] | [address] | | | | | Cancer | [place], | [place], | | | | | center/ | [place] | [place] [address] | | | | | Medicaid [place], | [address] | Phone: | | | | | [facility] | Phone: | [phone] | | | | | Procedures | [phone] | Fax: | | | | | [place] OFFICE | Fax: | [phone] | | | | | OUTPATIENT | [phone] | | | | | | VISIT 25 | | | | | | | MINUTES NEW | | | | | | | PATIENT | | | +--------+--------+ + + + + Encounter Details +--------+---------+ + + + | Date | Type | Department | Care Team | Description | +--------+---------+ + + + | 11/22/ | Office | [facility] | [facility], | Hemorrhage of rectum | | 2013 | Visit | GASTROENTEROLOGY | [address] [address] | and anus (Primary | | | | [address] | [address] | Dx); [facility] | | | | [address] [place], [place] | [place] | lymphoma | | | | [address] | [address] | | | | | [phone] | | | +--------+---------+ + + + [...] + + + | Blood Pressure | 130/70 | 11/22/2013 10:26 AM | | | | | PST | | + + + + + | Pulse | 72 | 11/22/2013 10:26 AM | | | | | PST | | + + + + + | Temperature | 36 C (96.8 F) | 11/22/2013 10:26 AM | | | | | PST | | + + + + + | Respiratory Rate | 18 | 11/22/2013 10:26 AM | | | | | PST | | + + + + + | Oxygen Saturation | - | - | | + + + + + | Inhaled Oxygen | - | - | | | Concentration | | | | + + + + + | Weight | 100.2 kg (221 lb) | 11/22/2013 10:26 AM | | | | | PST | | + + + + + | Height | 162.6 cm (5' 4") | 11/22/2013 10:26 AM | | | | | PST | | + + + + + | Body Mass Index | 37.93 | 11/22/2013 10:26 AM | | | | | PST | | + + + + + documented in this encounter Progress Notes Latricia Michel ARNP - 11/22/2013 10:39 AM PSTFormatting of this note might be differe nt from the original. Frida Christian is a 53 y.o. female referred by Becky Jennings for evaluation and treatment o f rectal bleeding. History of present illness: Patient states she has been having diarrhea since chemotherapy. She completed 8 rounds of c hemotherapy fo Burkitt's lymphoma 06/06 2012. Now that she is off of chemotherapy, stools have hardened. She began to notice blood with BM about 7 months ago. Blood is intermittent and worse with greasy foods. Episodes about 4 times per month. Blood is remaining stable and not worsening . Denies abdominal or rectal pain, rectal itching, black stools, or unintentional weight loss . Never has had colonoscopy in the past. 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 chemo started 11/15/11 Cycle 2B of chemo was complicated by prolonged neutropenic fever and bilateral pneumoni a Dysfunction of eustachian tube Chest pain Cardiomyopathy Past Surgical History Procedure Date section, classic 1981 Laparoscopic lymph node biopsy at [facility], grade b cell lymphoma 11/10/2011 Port for [...] Disabled Social History Main Topics Smoking status: Current Some Day Smoker Last Attempt to Quit: 10/01/2011 Smokeless tobacco: Never Used Alcohol Use: No Drug Use: Yes Comment: Michael Sexually Active: Not on file Other Topics Concern Not on file Social History Narrative Exercise: noneCaffeine Use:2 cups of coffee dailyLiving Situation: Lives alone Review of systems: Constitutional:Denies any fevers, chills, or unintentional weight loss. Eyes:Denies using glaucoma eye drops. Denies dry, burning, painful eyes Respiratory:Denies shortness of breath, cough or wheezing. Gastrointestinal:Complains of diarrhea, hemorrhoids, bloody stools, and abdominal pain. Den ies constipation, black stools, hematemesis, nausea and vomiting, heartburn, and dysphagia. Skin: Denies rashes Neurological:Complains of numbness and tingling. Denies memory difficulties, muscle weaknes s, paralysis of arms or legs, epilepsy or seizure, or frequent bothersome and headaches ENT:Denies hearing loss, hearing aids, hearing ringing or buzzing in ears, constantly runny nose, nasal obstruction, hayfever, dentures, or hoarseness. Cardiovascular:Denies chest pain, palpitations, or swelling to legs : Complains of frequent nocturnal urination. Denies painful urination, urine incontinence , bloody urine, or impotence Musculoskeletal:Denies swollen joints, painful back, or painful joints. Psychiatric:Denies depression and anxiety Endocrine:Denies enlarged thyroid Heme/lymph:Denies anemia or enlarged lymph glands. Physical exam: General: well developed, well nourished, in no acute distress. Head: normocephalic and atraumatic Eyes: Sclera clear Mouth: MMM Lungs: Clear to auscultate bilaterally and throughout Heart: regular rate and rhythm Abdomen: Soft, non tender, non distended, bowel tones positive times 4 quadrants, negative Mamie y's sign, negative rebound tenderness, no guarding, no hepatosplenomegaly palpated. Rectal: Will be done prior to procedure Msk: symmetrical with no deformity, with normal posture and gait, normal strength. Extremities: no clubbing, cyanosis, edema, or deformity noted Neurologic: no focal deficits, cranial nerves II-XII grossly intact Skin: intact without lesions or rashes. Psych: alert and cooperative; normal mood and affect; normal attention span and concentration. Laboratory 11/14/2013: CBC within normal limits Na 136 K 3.9 Cl 102 CO2 25 BUN 14 Creatinine 0.70 Total Bili 0.4 AST 28 ALT 49 Alk Phos 126 Total Protein 6.4 Albumin 4.2 Assessment: 1. Hemorrhage of rectum and anus Ambulatory referral to Gastroenterology 2. H/O Burkitt's lymphoma Plan: Patient to have colonoscopy for further evaluation. The procedural techniques, risks, indic ations, and alternatives were discussed. Among the risks, are perforation, bleeding, infect ion, allergic/adverse reactions to medications, and cardiovascular complications. Each of t hese could result in hospitalization, additional procedures (including surgery), or other li fe threatening complications. Patient verbalized understanding. Risk factors to colo-rectal cancer discussed with patient including smoking, obesity, excessive red meat ingestion, adv ancing age and first degree family relative with history of colo-rectal cancer discussed wit h patient. Patient to call with any questions or concerns prior to procedure. Recommend procedure with anesthesia. Will follow up with results. Patient is to call with any question or concerns. Any fevers, chills, chest pain, SOB or other serious symptoms patient is to call the office or go to ER . Cc: Becky Jennings Reviewed most recent labs, imaging, and procedures. This note was dictated using voice recognition software. Please contact me if there are an y questions regarding its content. Electronically signed by ELLEN Dtuton at 11/02 7:49 PM PSTdocumented in this encounter Miscellaneous Notes Miscellaneous - YANETH DAVID DIANA - 11/22/2013 12:00 AM PST documented in this encounter Plan of Treatment + + +--------+ + + | Name | Type | Priori | Associated Diagnoses | Order Schedule | | | | ty | | | + + +--------+ + + | Ambulatory referral | Outpatient | Routin | Hemorrhage of | Expected: | | to Gastroenterology | Referral | e | rectum and anus | 12/08/2013, Expires: | | | | | | 11/22/2014 | + + +--------+ + + documented as of this encounter Visit Diagnoses + + | Diagnosis | + + | Hemorrhage of rectum and anus - Primary | + + | H/O Burkitt's lymphoma Personal history of other lymphatic and hematopoietic neoplasm | + + documented in this encounter
--- OUTSIDE RECORDS SUMMARY | ~2020-06-17 | XMS | Encounter Summary ---
Demographics + + + | Address | [address] | | | [place] [address] | + + + | Home Phone | | + + + | Preferred Language | Unknown | + + + | Marital Status | Single | + + + | Temple Affiliation | NON | + + + | Race | or | + + + | Ethnic Group | Not or | + + + Author + + + | Author | [facility] | + + + | Organization | [facility] | + + + | Address | Unknown | + + + | Phone | Unavailable | + + + Support + + + + + | Name | Relationship | Address | Phone | + + + + + | Yue Fischer | ECON | [address] | | | | | [place] | | | | | [address] | | + + + + + | Greta Broncheau | ECON | Unknown | | + + + + + Care Team Providers + +------+ + | Care Strap Maker Name | Role | Phone | [...] | 2012 | Visit | Oncology at [facility] | [address] | (HCC) (Primary Dx) | | | | [address] | [place], | | | | | Mailcode: [id number] | [place] [address] | | | | | [facility] | [phone] | | | | | and Healing, | | | | | | Building | | | | | | [place], [place] | | | | | | [address] | | | | | | [phone] | | | +--------+---------+ + + + [...] preferre d the procedure be done at [facility] and she was referred to [...] Ms. Christian is and lives in the [facility]. She is half and [...] clinical interpretation was made by the clinical instructor industrial design. Rendering Diagnostician: Hong Castañeda PhD, [facility] Clinical Battery Stacker Electronically Signed 11/13/2011 3:45PM Assessment: Ms. Christian [...] PICC placement 6) LP to evaluate for TRANSPORT MEDIC disease 7) Would stop glipizide, monitor blood [...] + | [facility], [place]INT | [address] | [place] [address] | | | OF CARE TESTS | [...] | [facility], [place] | [address] | [place] [address] | | | OF CARE TESTS | [...] | + + + + + | [facility] | [address] | [place] [address] | | | PATHOLOGY | [address] [...] Way Lab) [facility] | MIRI | | [place] [address] [facility] | REGIONAL | | [place] [address] | LABORATORY | + + + + + + + + | Performing | Address | City/State/Zipcode | Phone Number | | Organization | | | | + + + + + | [facility] | [address] [facility] | [place] [address] | | | LABORATORY | | | [...] [facility] | [facility] | | [place] [address] | REGIONAL | | [place] [address] | LABORATORY | + + + + + + + + | Performing | Address | City/State/Zipcode | Phone Number | | Organization | | | | + + + + + | [facility] | [address] | [place] [address] | | | LABORATORY | | | [...] [facility] | [facility] | | [place] [address] | REGIONAL | | [place] [address] | LABORATORY | + + + + + + + + | Performing | Address | City/State/Zipcode | Phone Number | | Organization | | | | + + + + + | [facility] | [address] | [place] [address] | | | LABORATORY | | | | + + + + + LDH TOTAL, PLASMA (11/13/2011 2:07 PM PST) + +---------+ + + + | Component | Value | Ref Range | Performed | Pathologist | | | | | At | Signature | + +---------+ + + + | LD TOTAL, | 234 (H) | 110 - 205 U/L | [facility] | | | PLASMA | [...] | + + + + + | [facility] DEPARTMENT OF | [address] | [place] [address] | | | PATHOLOGY | [address] [...] | + + + + + | [facility] DEPARTMENT OF | [address] | [place] [address] | | | PATHOLOGY | [address] | | | + + + + + INR (11/13/2011 2:07 PM PST) + + + + + + | Component | Value | Ref Range | Performed | Pathologist | | | | | At | Signature | + + + + + + | INR | 1.15Comment: | 0.90 - 1.20 INR | [facility] | | | | INR [...] | + + + + + | [facility] | [address] | [place] [address] | | | PATHOLOGY | [address] [...] DEPARTMENT OF | [address] | [place] [address] | | | PATHOLOGY | [address] [...] | + + + + + | [facility] | [address] | [place] [address] | | | PATHOLOGY | [address] [...] or | | | | | | [id number] B-cell | | | | | | population seen. The T | | | | | | cells show a normal | | | | | | [id number] with no | | | | | [...] CD10 | | | | | | [id number] CD22 CD23 CD25 | | | | | | CD34 CD38 CD45 | | | | | | [id number] sKappa | | | | | | [...] (CD20 | | | | | | [id number]) and T cells | | | | [...] | | | | Data:Code : [id number] | | | | | | HPM 0 C ZOFIA | | | | | | [id number] | | | | | | -RACHEL SMITH | | | | | | [facility]-[id number] | | | | | | WRD: [...] Request: | | | | | | [id number] | | | | | | [id number] | | | | | | | [...] | + + + + + | [facility] | [address] | [place] [address] | | | PATHOLOGY | [address] [...] clinical | | | | | | instructor industrial design. | | | | | | Rendering [...] + + + | [facility] | [address] | [place] [address] | | | DIAGNOSTIC | [address] [...]
--- OUTSIDE RECORDS SUMMARY | ~2020-06-17 | XMS | Encounter Summary ---
Demographics + + + | Address | [address] | | | [place] [address] | + + + | Home Phone [...] | Author | [facility] | | | and [place] | + + + | Organization | [facility] | | | and [...] [place] | | | | | [address] | | + + + + + | Greta Broncheau | ECON | [place] | | | | | [address] | | + + + + + Care Team Providers + +------+ + | Care Librarian Special Collections Name | Role | Phone | + +------+ + PCP | Unavailable | + +------+ + Encounter Details +--------+ + + + + | Date | Type | Department | Care Team | Description | +--------+ + + + + | 04/28/ | Hospital | [facility] | [place], | | | 2011 - | Encounter | MED CTR CANCER | Antonio Infante MD [address] | | | | | CENTER [address] | [facility] | | | 04/30/ | | [place] | [address] [place] | | | 2011 | | [address] | [address] | | | | | [phone] | | | +--------+ + + + [...] Frida Christian is a 51-year-old woman from [place], [place] with Burkitt l ymphoma, w ho was admitted to [facility] in [facility] on 012, for cycle #3b of Rituxan/hyper-CVAD chemotherapy. Frida was immediately taken to the radiology suite, where lumbar puncture was performed Jonathan cruz, and then I subsequently immediately administered [...] BY: Antonio Renee MD Oncology JOB #: [id number] EXT JOB #:[id number] <Electronicall y Signed by Antonio Renee MD> 04/19/12 1421 documented in this encounter Medications at Time [...] | 03/25/20 | | | (VITAMIN D3) 17314 | mouth Once a week. | | [...] this encounter Progress Antonio Collier MD - 04/09/2012 3:34 AM PDTPROGRESS NOTE 04/28/2012 IDENTIFYING STATEMENT: Frida Christian is a 51-year-old woman from [place], [place], with Burkitt's lymphoma. ACTIVE DIAGNOSES: 1. Presentation in August 2001, with intractable searing abdominal pain. Symptoms progre ssed and on October 05, 2011, she underwent advanced imaging that demonstrated diffuse malignant lymphadenopathy throughout the retroperitoneum. 2. 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 Ignacio-Palmer virus was positive by in situ hybridization, KI 67 f raction was greater than 90%. 3. Initiation of Rituxan/Hyper-CVAD chemotherapy at [facility] on November 15, 2011. CHIEF [...] injection with methotrexate at that time. cc: JING Luis-Naresh, [facility] <Electronically Signed by Antonio Renee MD> 05/06/12 0557 Antonio Renee MD - 04/09/2012 3:34 AM PDTPROGRESS NOTE 04/26/2012 IDENTIFYING STATEMENT: Frida Christian is a 51-year-old woman from [place], [place], with Burkitt's lymphoma. ACTIVE DIAGNOSES: 1. Presentation in August 2001, with intractable searing abdominal pain. Symptoms progre ssed and on October 05, 2011, she underwent advanced imaging that demonstrated diffuse malignant lymphadenopathy throughout the retroperitoneum. 2. 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 Ignacio-Palmer virus was positive by in situ hybridization, KI 67 f raction was greater than 90%. 3. Initiation of Rituxan/Hyper-CVAD chemotherapy at [facility] on November 15, 2011. CHIEF [...] Frida Christian is a 51-year-old woman from [place], [place], with Burkitt's lymphoma. ACTIVE DIAGNOSES: 1. Presentation in August 2001, with intractable searing abdominal pain. Symptoms progre ssed and on October 05, 2011, she underwent advanced imaging that demonstrated diffuse malignant lymphadenopathy throughout the retroperitoneum. 2. 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 Ignacio-Palmer virus was positive by in situ hybridization, KI 67 f raction was greater than 90%. 3. Initiation of Rituxan/Hyper-CVAD chemotherapy at [facility] on November 15, 2011. CHIEF [...] chemotherapy program on May 02, 2012. cc: Becky Jennings, JING-C, [facility] <Electronically Signed by Antonio Renee [...] 8 | 7 - 18 mg/dL | [facility] | | | | | | [facility] | | | | | | MEDICAL | | | | | | CENTER - | | | | | | LABORATORY | | + + + + + + | Creatinine | 0.65 | 0.60 - 1.30 | [facility] | [...] + | [facility] | [address] | [place] | [phone] | | [facility] | | [address] | | | - LABORATORY | | | | + + + + + | [facility] | [address] | [place], [place] | | | [facility] | | [id number] [place] [address] | | | - LABORATORY | | [...] [address] | [place] | [phone] | | [facility] | | [address] | | | - LABORATORY | | | | + + + + + | [facility] | [address] | [place] | | | [facility] | | [address], [facility] | | | - LABORATORY | | | | + + + + + CBC w/ Auto Differential (04/28/2012 10:23 AM PDT) + + + + + + | Component | Value | Ref Range | Performed | Pathologist | | | | | At | Signature | + + + + + + | White Blood | 6.4 | 4.0 - 11.0 K/uL | [facility] | | | Cells | | | [facility] | | | | | | MEDICAL | | | | | | CENTER - | | | | | | LABORATORY | | + + + + + + | Red Blood | 2.67 (L) | 3.70 - 5.20 [...] | | Counted | | | [facility] | | | | | | MEDICAL | | | | | | CENTER - | | | | | | LABORATORY | | + + + + + + | % Segmented | 59 | 50 - 70 % | [facility] | | | | | | [facility] | | | Neutrophils | | | [...] 0 /100WBC | [facility] | | | Manual | | | [facility] | | [...] + | [facility] | [address] | [place] | [phone] | | [facility] | | [address] | | | - LABORATORY | | | | + + + + + | [facility] | [address] | [place] | | | [facility] | | [address], [facility] | | | - [...] | | | | | | [facility] | | | | | | [...] + | [facility] | [address] | [place], [place] | [phone] | | [facility] | | [address] | | | - LABORATORY | | | | + + + + + | [facility] | [address] | [place], [place] | | | [facility] | | [address] | | | - LABORATORY [...] | | Screen | | | [facility] | | | | | | [...] + | [facility] | [address] | [place] | [phone] | | [facility] | | [address] | | | - LABORATORY | | | | + + + + + | [facility] | [address] | [place] | | | [facility] | | [address], [facility] | | | - [...] [address] | [place] | [phone] | | [facility] | | [address] | | | - LABORATORY | | [...] | 10.0 | 6.0 - 17.0 | [facility] | [...] [address] | [place] | [phone] | | [facility] | | [address] | | | - LABORATORY | | | | + + + + + | [facility] | [address] | [place], [place] | | | [facility] | | [address], [facility] | | | - [...] 157 | 91 - 180 IU/L | [facility] [...] + | [facility] | [address] | [place] | [phone] | | [facility] | | [address] | | | - LABORATORY | | | | + + + + + | [facility] | [address] | [place], [place] | | | [facility] | | [address] | | | - LABORATORY [...] | | | Cells | | | . [facility] | | | | | | MEDICAL | | | | | | CENTER - | | | | | | LABORATORY | | + + + + + + | Red Blood | 2.20 (L) | 3.70 - 5.20 [...] | Count | CRITICAL | | [facility] | | | | VALUE Time for [...] KATEY | | | | | | ABHISHEK 04/26/12 @1051 | | | | | | by FRIDA @ * READ | | | | [...] + + | Performing | Address | [facility] | Phone Number | | Organization | | | | + + + + + | [facility] | [address] | [place] | [phone] | | [facility] | | [address] | | | - LABORATORY | | | | + + + + + | [facility] | [address] | [place] | | | [facility] | | [address], [facility] | | | - [...] + + + | UNIT # | [id number] | | [facility] | | | | [...] + | [facility] | [address] | [place] | [phone] | | [facility] | | [address] | | | - LABORATORY | | | | + + + + + | [facility] | | | | | [facility] [...] + + + | UNIT # | [id number] | | [facility] | | | | [...] [address] | [place] | [phone] | | [facility] | | [address] | | | - LABORATORY | | [...] | Code | PLATELETS-IRRADIATED | | [facility] | | | | | | MEDICAL | | | | | | CENTER - | | | | | | LABORATORY | | + + + + + + | UNIT # | [id number] | | [facility] | | | | [...] [address] | [place] | [phone] | | [facility] | | [address] | | | - [...] 105 | 70 - 109 mg/dL | [facility] [...] | GFR | -Americans, | | [facility] | | | | please multiply [...] | 10.4 | 6.0 - 17.0 | [facility] | [...] [address] | [place] | [phone] | | [facility] | | [address] | | | - LABORATORY | | | | + + + + + | [facility] | [address] | [place] | | | [facility] | | [address], [facility] | | | - [...] 134 | 91 - 180 IU/L | [facility] [...] + | [facility] | [address] | [place] | [phone] | | [facility] | | [address] | | | - LABORATORY | | | | + + + + + | [facility] | [address] | [place] | | | [facility] | | [address], [facility] | | | - LABORATORY | | | | + + + + + CBC with Differential (04/19/2012 9:41 AM PDT) + + + + + + | Component | Value | Ref Range | Performed | Pathologist | | | | | At | Signature | + + + + + + | White Blood | 5.5 (A) | 4.0 - 11.0 K/uL | [facility] | | | Cells | | | [facility] | | | | | | MEDICAL | | | | | | CENTER - | | | | | | LABORATORY | | + + + + + + | Red Blood | 2.64 (L) | 3.70 - 5.20 [...] + | [facility] | [address] | [place], [place] | [phone] | | [facility] | | [address] | | | - LABORATORY | | | | + + + + + | [facility] | [address] | [place], [place] | | | [facility] | | [id number] [place] [address] | | | - LABORATORY | | | | + + + + + Comprehensive Metabolic Panel (04/11/2012 8:35 AM PDT) + + + + + + | Component | Value | Ref Range | Performed | Pathologist | | | | | At | Signature | + + + + + + | Glucose | 104 | 70 - 109 mg/dL | [facility] [...] | 0.79 | 0.60 - 1.30 | [facility] | [...] | 9.9 | 6.0 - 17.0 | [facility] | [...] [address] | [place] | [phone] | | [facility] | | [address] | | | - LABORATORY | | | | + + + + + | [facility] | [address] | [place] | | | [facility] | | [address], [facility] | | | - [...] 118 | 91 - 180 IU/L | [facility] | | | | | | STE[facility] [...] + | [facility] | [address] | [place], [place] | [phone] | | [facility] | | [address] | | | - LABORATORY | | | | + + + + + | [facility] | [address] | [place], [place] | | | [facility] | | [address] | | | - LABORATORY [...] + + + | Red Blood | 2.54 (L) | 3.70 - 5.20 [...] + | [facility] | [address] | [place] | [phone] | | [facility] | | [address] | | | - LABORATORY | | | | + + + + + | [facility] | [address] | [place] | | | [facility] | | [address] [place] [address] | | | - LABORATORY | | | | + + + + + documented in this encounter Visit Diagnoses Not on filedocumented in this encounter"
--- OUTSIDE RECORDS SUMMARY | ~2020-06-17 | XMS | Encounter Summary ---
Demographics + + + | Address | [address] | | | [place] [address] | + + + | Home Phone | | + + + | Preferred Language | Unknown | + + + | Marital Status | Single | + + + | Methodist Affiliation | NON | + + + | Race | or | + + + | Ethnic Group | Not or | + + + Author + + + | Author | [facility] | + + + | Organization | [facility] | + + + | Address | Unknown | + + + | Phone | Unavailable | + + + Support + + + + + | Name | Relationship | Address | Phone | + + + + + | Yue Fischer | ECON | [address] | | | | | [place] | | | | | [address] | | + + + + + | Greta Broncheau | ECON | Unknown | | + + + + + Care Team Providers + +------+ + | Care Metal Annealer Name | Role | Phone | + [...] | | 2011 | | Oncology at [facility] | [address] | non-Hodgkin's type | | | | [address] | [place], | | | | | Mailcode: [id number] | [place] [address] | | | | | [facility] | [phone] | | | | | and Healing, | | | | | | [facility] | | | | | | [place], [place] | | | | | | [address] | | | | | | [phone] | | | +--------+ + + + [...] | + +--------+ + + + | IN BONE MARROW BX, | Routin | 11/13/2011 | Burkitt's lymphoma | | | NEEDLE/TROCAR | e | 10:12 PM | (HCC) | | | | | PST | | | + +--------+ + + + | IN BONE MARROW; | Routin | 11/13/2011 | [...]
--- OUTSIDE RECORDS SUMMARY | ~2020-06-17 | XMS | Encounter Summary ---
Demographics + + + | Address | [address] | | | [place] [address] | + + + | Home Phone | | + + + | Preferred Language | Unknown | + + + | Marital Status | | + + + | Buddhism Affiliation | Unknown | + + + | Race | or | + + + | Ethnic Group | Not or | + + + Author + + + | Author | [facility] | | | and [place] | + + + | Organization | [facility] | | [...] [place] | | | | | [address] | | + + + + + | Greta [place]eb[place]au | ECON | [place] | | | | | [address] | | + + + + + Care Team Providers + +------+ + | Care Events Assistant Name | Role | Phone | + +------+ + | Becky Jennings | PCP | | + +------+ + Encounter Details +--------+ + + + + | Date | Type | Department | Care Team | Description | +--------+ + + + + | 03/02/ | Orders Only | [facility] | [place], | BURKITT'S LYMPHOMA | | 2013 | | [facility] | Antonio Infante MD 2808 | (Primary Dx) | | | | ONCOLOGY CLINIC [address] | [facility] | | | | | [address] | [address] [place], [place] | | | | | [place] [address] | [address] | | | | | [phone] | | | +--------+ + + + [...] + | [facility] | [address] | [place] | [phone] | | [facility] | | [address] | | | - LABORATORY | | | | + + + + + | [facility] | [address] | [place], [place] | | | [facility] | | [address] | | | - [...] mL/min/1.73m2 | [facility] | | | Portuguese | RATE,ESTIMATED | | MEDICAL | | | | mL/min/1.27u1Ndle than | | CENTER - | | [...] | | Phosphatase | | | [facility] | | [...] + | [facility] | [address] | [place] | [phone] | | [facility] | | [address] | | | - LABORATORY | | | | + + + + + | [facility] | [address] | [place], [place] | | | [facility] | | [address] | | | - [...] | Basophils | | K/uL | [facility] | [...] + | [facility] | [address] | [place], [place] | [phone] | | [facility] | | [address] | | | - LABORATORY | | | | + + + + + | [facility] | [address] | [place], [place] | | | [facility] | | [id number] [place] [address] | | | - LABORATORY | | | | + + + + + documented in this encounter Visit Diagnoses + + | Diagnosis | + + | BURKITT'S LYMPHOMA - Primary Burkitt's tumor or lymphoma, unspecified site, | | extranodal and solid organ sites | + + documented in this encounter"
--- OUTSIDE RECORDS SUMMARY | ~2020-06-17 | XMS | Encounter Summary ---
Demographics + + + | Address | [address] | | | [place] [address] | + + + | Home Phone | | + + + | Preferred Language | Unknown | + + + | Marital Status | Single | + + + | Confucianism Affiliation | NON | + + + | Race | or | + + + | Ethnic Group | Not or | + + + Author + + + | Author | [facility] [employer] [facility] | + + + | Organization | [facility] | + + + | Address | Unknown | + + + | Phone | Unavailable | + + + Support + + + + + | Name | Relationship | Address | Phone | + + + + + | Yue Fischer | ECON | [address] | | | | | [place] | | | | | [address] | | + + + + + | Greta Broncheau | ECON | Unknown | | + + + + + Care Team Providers + +------+ + | Care Evaporator Supervisor Name | Role | Phone | [...] | 10/22/ | Office | Preoperative | Magrarita Turcios | Retroperitoneal | | 2010 | Visit | Medicine Clinic at | J, PHOTOGRAPHIC REPRODUCTION TECHNICIAN | mass; Other | | | | [facility] 4th Floor Day | | specified | | | | Stay [address] | | pre-operative | | | | [address] | | examination; Type 2 | | | | Mailcode: [id number] | | diabetes mellitus | | | | [facility] | | (HCC); HTN | | | | [address] [place], [place] | | (hypertension); | | | | [address] | | Morbid obesity (HCC) | | | | [phone] | | | +--------+---------+ + + + [...] Patient Instructions Patient Instructions Tam Margarita Bebe, PHOTOGRAPHIC REPRODUCTION TECHNICIAN - 10/22/2011 2:05 PM PSTPREOPERATIVE INSTRUC TIONS [...] OR NON-STEROIDAL ANTI-INFLAMMATORY DRUGS (NSAIDs) Advil, Aleve, Igna-Asbury, Anacin, Arthopan, Ascriptin, Aspergum, Aspirin with and [...] ersantine, Phenylbutazone, Piroxicam, Relafen, Robomol, Rufen, Sine-aid, Placer s cold tablets, Sulindac, Talwin, Tolectin, Triaminicin, [...] perfume, lotions or powder. Remove any nail cambodian from at least one fingernail. Do not [...] or walk. Surgery Check in Locations Admitting [facility] Surgery Check in Time: Someone from your [...] it is after office hours, call the [facility] logging tractor operator swamp at [phone] and ask them to page your doc [...] further investigation and manageme nt. A. Acute PA within 7 days: no B. Unstable angina/Recent PA (7- 30 days): no C. Decompensated CHF: no D. Significant arrhythmia: None E. Severe valvular disease: NONE 3. Low risk surgery? b. No -> proceed with next step. 4. Good functional capacity? (>4 METS)a. Yes -> proceed with surgery. Please see scanned Preop H & P in the "Media" tab under ANESTHESIA PREOP EVALUATION. RAHUL DOUGLAS [facility] [address] [facility] [address] documented in th is encounter Plan of Treatment Not on filedocumented as of this encounter Procedures + +--------+ + + + | Procedure Name | Priori | Date/Time | Associated Diagnosis | Comments | | | ty | | | | + +--------+ + + + | AR COLLECTION VENOUS | Routin | 10/22/2011 | [...] [facility] | [address] | [place], [place] | | | [facility] | [address] | [address] | | | TESTS | | | [...] | + + + + + | [facility] | [address] | [place] [address] | | | PATHOLOGY | [address] [...] | | | DEPARTMENT | | | MAURITIAN | | | OF | | | [...] [facility] DEPARTMENT | [address] | [place] [address] | | | PATHOLOGY | [address] [...] | + + + + + | [facility] DEPARTMENT OF | [address] | [place] [address] | | | PATHOLOGY | [address] [...] | | | | | MONIKA HORN (5151) on | | | | | | 10/24/2011 11:29:45 AM | | | | + + + + + + + + | Specimen | + + | | + + + + + | Narrative | Performed At | + + + | Please click | [facility] | | on view image for the detailed interpretation from [employer] results. | CARDIOLOGY | + + + + + + + + | Performing | Address | City/State/Zipcode | Phone Number | | Organization | | | | + + + + + | [facility] | [address] | [place], [place] | | | CARDIOLOGY | [address] | [address] | | + + + + + [...]
--- OUTSIDE RECORDS SUMMARY | ~2020-06-17 | XMS | Encounter Summary ---
Demographics + + + | Address | [address] | | | [place] [address] | + + + | Home Phone | | + + + | Preferred Language | Unknown | + + + | Marital Status | Single | + + + | Mu-Ism Affiliation | NON | + + + | Race | or | + + + | Ethnic Group | Not or | + + + Author + + + | Author | [facility] [employer] [facility] | + + + | Organization | [facility] [place] [facility] | + + + | Address | Unknown | + + + | Phone | Unavailable | + + + Support + + + + + | Name | Relationship | Address | Phone | + + + + + | Yue Fischer | ECON | [address] | | | | | [place] | | | | | [address] | | + + + + + | Greta Broncheau | ECON | Unknown | | + + + + + Care Team Providers + +------+ + | Care Appeals Examiner Name | Role | Phone | [...] | | | | | Other | [place], [place] | [place], [place] | | | | | specified | [address] | [address] | | | | | pre-operativ | Phone: | Phone: | | | | | e | [phone] | [phone] | | | | | examination | Fax: | Fax: | | | | | Procedures | [phone] | [phone] | | | | | REQUEST TO | | | | | | | SURGERY | | | | | | | EXECUTIVE ASSOCIATE | | | | | | | [place] | | | | | | | LAP,CHOLECYS | | | | | | | TECTOMY [place] | | | | | | | REMOVAL | | | | | | | GALLBLADDER | | | | | | | [place] | | | | | | | [...] | | | Oncology | | Jonathan Merlso MD | MD Osiel | | | | | | MICHEAL POOLE | [address] | | | | | | SURGICAL | Ave | | | | | | [address] | [place], [place] | | | | | | [address] | [address] | | | | | | AVE | Phone: | | | | | | [place], | [phone] | | | | | | [place] [address] | Fax: | | | | | | Phone: | [phone] | | | | | | [phone] | | | | | | | Fax: | | | | | | | [phone] | | +--------+--------+ + + + + [...] | | | [facility] | [place], [place] | specified | | | | [facility], | [address] | pre-operative | | | | Building [address] | [phone] | examination | | | | [place], [place] | | | | | | [address] | | | | | | [phone] | | | +--------+---------+ + + + [...] surgeries scheduled to take place on the [place] at the [facility]: Surgeries scheduled in the [facility] registration is located on the 4th floor of [facility] (Day Surgery). Surgeries scheduled in the [facility]: registration is located on the 9th floor. Surgeries scheduled in [facility]: registration is located on the 6th floor. Surgeries scheduled in the [facility]: registration is located i n the [facility] main lobby on the first floor. For surgeries scheduled to take place at the [facility]: registration is l ocated on the [...] If you use specialized medical equipment at [facility], please check with your provider before bringing [...] Smoking Cessation Brochure. INPATIENT SURGERY INFORMATION at [facility] Prior to surgery, you will need to do the followin. [facility] Appointment (Perioperative Medicine Clinic) is on at . The [facility] clinic is located on the 4th floor of the [facility]. Post surgery: 1. Call Surgical Oncology Office ([phone]) To Make Post-Op Appointment. ANCILLARY SERVICES 1. Blood Work (Lab is located on the 3rd floor of [facility].) No appointment required. 2. Chest Xray (Radiology is located on the 3rd floor of [facility].) No appointment required. 3. EKG (EKG is located on the 9th floor of [facility].) No appointment required. *Stop blood thinners (Aspirin, [...] a call by 3:00 pm, please call [phone]. * Check in at [facility] 9th Floor Admitting desk on 11/09/11. * Please shower, shampoo and shave before being admitted to the hospital. * Do not wear any make up, nail bengali or jewelry for the surgery. * Free [...] and plan of care. Ref: Dr. Aranda, [place] 50 yr old NA female From [place] with RP mass and gallbladder poylps, referred [...] OSIEL RM MD SURGICAL ONCOLOGY MailCode [address] [place], [place] [address] Renetta Ibanez MD - 10/02 11:03 AM PST Surgical [...] DEPARTMENT OF | [address] | [place] [address] | | | PATHOLOGY | [address] [...]
--- OUTSIDE RECORDS SUMMARY | ~2020-06-17 | XMS | Encounter Summary ---
Demographics + + + | Address | [address] | | | [place] [address] | + + + | Home Phone | | + + + | Preferred Language | Unknown | + + + | Marital Status | Single | + + + | Yazidi Affiliation | NON | + + + | Race | or | + + + | Ethnic Group | Not or | + + + Author + + + | Author | [facility] [employer] [facility] | + + + | Organization | [facility] | + + + | Address | Unknown | + + + | Phone | Unavailable | + + + Support + + + + + | Name | Relationship | Address | Phone | + + + + + | Yue Fischer | ECON | [address] | | | | | [place] | | | | | [address] | | + + + + + | Greta Broncheau | ECON | Unknown | | + + + + + Care Team Providers + +------+ + | Care Gelatin Powder Mixer Name | Role | Phone | [...] Ramón | | | | | at [facility] | [facility] | | | | | [address] | [place] [address] | | | | | [address] [facility] | | | | | | [place], [facility] floor | | | | | | [place], [place] | | | | | | [address] | | | | | | [phone] | | | +--------+ + + + [...] section. | | | | | ([facility]LY [facility]) Other | | | | | | [...] | | | | | MONIKA HORN ([id number]) on | | | | | | 10/24/2011 11:29:45 AM | | | | + + + + + + + + | Specimen | + + | | + + + + + | Narrative | Performed At | + + + | Please click | [facility] | | on view image for the detailed interpretation from [employer] results. | CARDIOLOGY | + + + + + + + + | Performing | Address | City/State/Zipcode | Phone Number | | Organization | | | | + + + + + | [facility] | [address] | [place], [place] | | | CARDIOLOGY | [address] | [address] | | + + + + + documented in this encounter Visit Diagnoses Not on filedocumented in this encounter
--- OUTSIDE RECORDS SUMMARY | ~2020-06-17 | XMS | Encounter Summary ---
Demographics + + + | Address | [address] | | | [place] [address] | + + + | Home Phone [...] Author | [facility] | | | and [place] | + + + | Organization | [facility] | | | and [place] [...] [place] | | | | | [address] | | + + + + + | Greta [place]eb[place]au | ECON | [place] | | | | | [address] | | + + + + + Care Team Providers + +------+ + | Care Gas Plant Technician Name | Role | Phone | + +------+ + | Becky Jennings | PCP | | + +------+ + Encounter Details +--------+ + + + + | Date | Type | Department | Care Team | Description | +--------+ + + + + | 05/08/ | Hospital | [facility] | Lm, | | | 2012 | Encounter | MED CTR XRAY [address] | Avis INSPECTOR [address]ING [address] | | | | | [place] | [place], | | | | | [place] [address] | [place] [address] | | | | | [phone] | [phone] | | | | | | | [...] | 03/25/20 | | | (VITAMIN D3) 60[address] | mouth Once a week. | | [...]
--- OUTSIDE RECORDS SUMMARY | ~2020-06-17 | XMS | Encounter Summary ---
Demographics + + + | Address | [address] | | | [place] [address] | + + + | Home Phone | | + + + | Preferred Language | Unknown | + + + | Marital Status | Single | + + + | Anglican Affiliation | NON | + + + | Race | or | + + + | Ethnic Group | Not or | + + + Author + + + | Author | [facility] [facility] | + + + | Organization | [facility] | + + + | Address | Unknown | + + + | Phone | Unavailable | + + + Support + + + + + | Name | Relationship | Address | Phone | + + + + + | Yue Fischer | ECON | [address] | | | | | [place] | | | | | [address] | | + + + + + | Greta Broncheau | ECON | Unknown | | + + + + + Care Team Providers + +------+ + | Care Fabricator Artificial Breast Name | Role | Phone | + +------+ + | Becky Jennings | PCP | | + +------+ + Encounter Details +--------+ + + + + | Date | Type | Department | Care Team | Description | +--------+ + + + + | 08/15/ | Documentati | Health Information | Other, Faculty | | | 2019 | on | Services [address] | [phone] | | | | | [address] | | | | | | Mailcode: [id number] | | | | | | [facility] | | | | | | [place], [place] | | | | | | [address] | | | | | | [phone] | | | +--------+ + + + [...]
[2020-06-17] MEDS ORDERED: PREDNISONE20 MG PO (09:53)
== END 2020-06-17 12:41 | disposition home or self-care (01) ==
LOC: ED 08:36
DX: G51.0 Bell's palsy (principal); Z87.891 Personal history of nicotine dependence
CPT/HCPCS: 70470; 70491; 80048; 85025; 99284-25; J7512; Q9967

== ENCOUNTER 2021-01-20 14:53 | Inpatient (IN) | payer MEDICARE, OTHER ==
[~2021-01-20] VITALS: Ht 162.6 cm; Wt 93.5 kg
[2021-01-20] MEDS ORDERED: ZESTRIL5 MG PO (15:22)
[2021-01-20] MEDS ORDERED: GLIPIZIDE ER5 MG PO (15:22)
[2021-01-20] MEDS ORDERED: LIPITOR40 MG PO (15:23)
[2021-01-20] MEDS ORDERED: ASPIRIN81 MG PO (15:23)
[2021-01-20] MEDS ORDERED: NEURONTIN100 MG PO (15:23)
--- NOTE | 2021-01-20 22:43 | EKG ---
[facility] [address] [facility] [place], [place] [address] Signed Sinus tachycardia Left axis deviation Incomplete right bundle branch block Abnormal ECG No previous ECGs available Confirmed by YG LUI MD ([id number]) on 01/20/2021 10:43:20 PM Electronically Signed By: YG LUI MD 01/20/21 2243 PATIENT NAME: ZOFIA YOUNG Electrocardiogram DATE OF : 58 PHYSICIAN: YG LUI MD REPORT #: [id number] REPORT IS CONFIDENTIAL AND NOT TO BE RELEASED WITHOUT AUTHORIZATION
[2021-01-23] MEDS ORDERED: AMOX TR-K CLV1 EAC1 PO (11:07)
[2021-01-23] MEDS ORDERED: OXYCODONE HCL5 MG PO (11:09)
[2021-01-23] MEDS ORDERED: ONDANSETRON ODT4 MG SL (11:10)
[2021-01-23] MEDS ORDERED: SENOKOT8.6 MG PO (11:10)
== END 2021-01-23 12:24 | disposition home or self-care (01) | DRG 392 ==
LOC: ED 14:53 → MS 21:34
PROVIDERS: ADMIT Internal Medicine; ATTEND Internal Medicine
DX: K57.32 Diverticulitis of large intestine without perforation or abscess without bleeding (principal); Z20.822 Contact with and (suspected) exposure to COVID-19; K76.0 Fatty (change of) liver, not elsewhere classified; R91.1 Solitary pulmonary nodule; I10 Essential (primary) hypertension; E11.42 Type 2 diabetes mellitus with diabetic polyneuropathy; E78.5 Hyperlipidemia, unspecified; Z85.72 Personal history of non-Hodgkin lymphomas; Z79.899 Other long term (current) drug therapy; Z79.82 Long term (current) use of aspirin; Z79.84 Long term (current) use of oral hypoglycemic drugs
CPT/HCPCS: 36415; 74177; 80053; 85025; 93005; 93010; C9803; J0780; J1650; J1815; J2270; J2405; J2543; J7121; U0003

== ENCOUNTER 2022-03-25 10:53 | Emergency (ER) | payer MEDICARE, OTHER ==
[~2022-03-25] VITALS: Ht 162.6 cm; Wt 93.4 kg
[~2022-03-25 10:53] MED LIST changes: +ASPIRIN81 MG PO; +GLIPIZIDE ER5 MG PO; +LIPITOR40 MG PO; +NEURONTIN100 MG PO; +ONDANSETRON ODT4 MG SL; +OXYCODONE HCL5 MG PO; +SENOKOT8.6 MG PO; +ZESTRIL5 MG PO
[2022-03-25] MEDS ORDERED: ROBITUSSIN COU237 M2 PO (11:14)
[2022-03-25] MEDS ORDERED: DOXYCYCLINE HY100 MG PO (11:14)
== END 2022-03-25 12:00 | disposition home or self-care (01) ==
LOC: ED 10:53
DX: J40 Bronchitis, not specified as acute or chronic (principal); E11.9 Type 2 diabetes mellitus without complications; E78.00 Pure hypercholesterolemia, unspecified; Z87.891 Personal history of nicotine dependence; Z79.899 Other long term (current) drug therapy; Z79.82 Long term (current) use of aspirin
CPT/HCPCS: 99283

== ENCOUNTER 2022-09-15 08:30 | Emergency (ER) | payer MEDICARE, OTHER ==
[~2022-09-15] VITALS: Ht 162.6 cm; Wt 93.4 kg
[~2022-09-15 08:30] MED LIST changes: +DOXYCYCLINE HY100 MG PO; +ROBITUSSIN COU237 M2 PO
[2022-09-15] MEDS ORDERED: DOXYCYCLINE HY100 MG PO (09:22)
== END 2022-09-15 09:48 | disposition home or self-care (01) ==
LOC: ED 08:30
DX: H66.90 Otitis media, unspecified, unspecified ear (principal); E11.9 Type 2 diabetes mellitus without complications; E78.00 Pure hypercholesterolemia, unspecified; Z87.891 Personal history of nicotine dependence; Z79.899 Other long term (current) drug therapy; Z79.82 Long term (current) use of aspirin
CPT/HCPCS: 99282

== ENCOUNTER 2022-11-19 15:52 | Emergency (ER) | payer MEDICARE, OTHER ==
[~2022-11-19] VITALS: Ht 162.6 cm; Wt 90.7 kg
[2022-11-19] MEDS ORDERED: ONDANSETRON ODT8 MG PO (17:51)
[2022-11-19] MEDS ORDERED: METRONIDAZOLE500 MG PO (17:51)
[2022-11-19] MEDS ORDERED: CIPROFLOXACIN750 MG PO (17:51)
== END 2022-11-19 20:04 | disposition home or self-care (01) ==
LOC: ED 15:52
DX: K57.32 Diverticulitis of large intestine without perforation or abscess without bleeding (principal); E11.9 Type 2 diabetes mellitus without complications; E78.00 Pure hypercholesterolemia, unspecified; Z87.891 Personal history of nicotine dependence; Z79.899 Other long term (current) drug therapy; Z79.82 Long term (current) use of aspirin; Z79.84 Long term (current) use of oral hypoglycemic drugs
CPT/HCPCS: 36415; 74177; 80053; 81003; 83690; 85025; 96365; 96375; 99284-25; J0744; J1170; J7030